=== PATIENT | female | born 1990 | race Caucasian/White ===

== ENCOUNTER 2024-05-28 14:37 | Outpatient (OUT) | payer BC, SELFPAY ==
--- NOTE | 2024-05-28 14:40 | US_ITS ---
The [place] [id number] Patient Name: LUCILA JAMES MRN: [id number] date: 1990 Sex: F Assigned Patient Location: [facility] Current Patient Location: [facility] Accession/Order Number: [id number] Exam Date: 05/28/2024 14:45 Report Date: 05/28/2024 15:28 At the request of: BRYAN AIKEN Procedure: US OB transvaginal EXAMINATION: US OB transvaginal HISTORY: Viability. IUD in place. COMPARISON: No relevant comparison available. FINDINGS: GESTATIONAL SAC: Present and normal appearing. YOLK SAC: Present and normal appearing. POLE: Present and normal appearing. CARDIAC: Present. UTERUS: IUD within endometrial cavity anterior to the gestational sac and extending towards the right. The IUD extends into the lower uterine cavity slightly below the level of the gestational sac. OVARIES: Right: Normal. Left: Corpus lutein cyst. CERVIX: 4.4 cm in length and closed. CUL-DE-SAC: Normal. OTHER: None. AGE BY LMP: 7 weeks 2 days EMMY BY LMP: 01/12/2025 AGE BY US CRL: 7 weeks 1 day EMMY BY US CRL: 01/13/2025 US/US OB transvaginal IMPRESSION: 1. Single live intrauterine . 2. IUD within gestational sac as detailed above. Findings discussed with Dr. Aiken prior to dictation. Electronically authenticated by: STEFANY SCHWAB Date: 05/28/2024 15:28
== END 2024-05-28 14:38 | disposition home or self-care (01) ==
LOC: NOMS 14:37
PROVIDERS: Visit Provider Obstetrics & Gynecology
DX: O26.31 Retained intrauterine contraceptive device in pregnancy, first trimester (principal); O36.80X0 Pregnancy with inconclusive fetal viability, not applicable or unspecified; Z3A.01 Less than 8 weeks gestation of pregnancy
CPT/HCPCS: 76817

== ENCOUNTER 2024-05-30 11:27 | Outpatient (OUT) | payer BC, SELFPAY ==
--- NOTE | 2024-05-30 11:30 | US_ITS ---
The [address] [address] Patient Name: LUCILA JAMES MRN: [id number] date: 1990 Sex: F Assigned Patient Location: [place] Current Patient Location: [place] Accession/Order Number: [id number] Exam Date: 05/30/2024 11:32 Report Date: 05/30/2024 12:16 At the request of: BRYAN BALDERRAMA Procedure: US OB transvaginal EXAMINATION: US OB transvaginal HISTORY: With Uncertain Viability ; IUD in endometrial cavity, bleeding COMPARISON: Ultrasound OB transvaginal 05/28/2024 FINDINGS: GESTATIONAL SAC: Present and normal appearing. YOLK SAC: Present and normal appearing. POLE: Present and normal appearing. CARDIAC: Present. UTERUS: IUD within endometrial cavity appearing to be and a slightly different location compared to study performed 2 days ago. Small 8 x 6 x 4 mm anechoic fluid collection adjacent to the gestational sac where IUD appeared to be on prior study. OVARIES: Right: Not seen. Left: Not seen. CERVIX: 4.9 cm in length and closed. CUL-DE-SAC: Normal. OTHER: None. AGE BY LMP: 7 weeks 4 days EMMY BY LMP: 01/12/2025 AGE BY US CRL: 7 weeks 4 days EMMY BY US CRL: 01/12/2025 US/US OB transvaginal IMPRESSION: 1 single live intrauterine . 2. IUD is still within the endometrial cavity adjacent the gestational sac but appears to have shifted in position with a tiny simple appearing fluid collection at prior location. Electronically authenticated by: STEFANY SCHWAB Date: 05/30/2024 12:16
== END 2024-05-30 11:28 | disposition home or self-care (01) ==
LOC: US 11:27
PROVIDERS: PCP Midwife; Visit Provider Obstetrics & Gynecology
DX: O36.80X0 Pregnancy with inconclusive fetal viability, not applicable or unspecified (principal); Z3A.01 Less than 8 weeks gestation of pregnancy
CPT/HCPCS: 76817

== ENCOUNTER 2024-06-17 12:22 | Outpatient (OUT) | payer BC, SELFPAY ==
--- OUTSIDE RECORDS SUMMARY | 2024-06-17 12:42 | XMS_ITS | CCD ---
Author Organization [facility] Care Team Providers Care Cashier Assistant Name Role Phone Yesica Khan Primary Care Provider ROCÍO GONZALEZ Referring Unavailable YESICA KHAN Primary Care Unavailable ROCÍO GONZALEZ Referring Unavailable YESICA KHAN Primary Care Unavailable DENISE TAYLOR Referring Unavailable [place] 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, Audra Burns Attending Alec Chacon MD Attending Charles garcia [place] 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, Audra Burns Attending U suleman ROSE STAFF Primary Care Provider Unavailnikolay e MD Santa Estrada II Attending Provider MD Maurizio Mast Attending Provider [phone] SANTA ESTRADA Referring Unavaila ble PCP, NOT IN SYSTEM Primary Care Unavailable NO FAMILY, PHYSICIAN Primary Care Provider Unava ilMD Santa Hoffman II Referring Provider VICTOR M LUJAN Attending Unavailable VICTOR M LUJAN Referring Unavailable VICTOR M LUJAN Attending Unavailable SANDRITA KNOX Attending Unavailable SANDRITA KNOX Attending Unavailable SANDRITA KNOX Attending Unavailable SANDRITA KNOX Referring Unavailable BRYAN BALDERRAMA Referring Unavailable PCP, NOT IN SYSTEM Primary Care Unavailable LEXI ROBERTSON Attending Unavailable LEXI ROBERTSON Referring Unavailable PCP, NOT IN SYSTEM Primary Care Unavailable ALEC PATEL Admitting Unavailable ALEC PATEL Attending Unavailable Provider, None Primary Care Unavailable Peter Booth Attending Unavailable Provider, None Primary Care Unavailable Peter Booth Attending Unavailable Provider, None Primary Care Unavailable Audra Reynoso Admitting Unavailable Audra Reynoso Attending Unavailable Provider, None Primary Care Unavailable Maurizio Mast Attending Unavailable Juliano Peterson Unavailable Provider, None Primary Care Unavailable Mast, Maurizio Admitting Unavailable Audra Reynoso Admitting Unavailable Audra Reynoso Attending Unavailable Provider, None Primary Care Unavailable Provider, None Primary Care Unavailable Audra Reynoso Admitting Unavailable Audra Reynoso Attending Unavailable MD Santa Estrada II Attending Provider NON STAFF Primary Care Provider Unavailabl e NON STAFF Primary Care Unavailable Santa Estrada II Attending Unavailabl e [place], Santa Jensen Admitting Unavailabl e [place] II, Santa Jensen Admitting Unavailabl e NON STAFF Primary Care Unavailable [place] II, Santa Jensen Attending Unavailabl e Sean II, Santa Jensen Admitting Unavailabl e NON STAFF Primary Care Unavailable Sean II, Santa Jensen Attending Unavailabl e NON STAFF Primary Care Unavailable Sean CURRIE, Santa Jensen Attending Unavailabl e [place] II, Santa Jensen Admitting Unavailabl e Mast, Maurizio Ul-Johnson Admitting Unavailable Mast, Maurizio RamosJohnson Attending Unavailable Sean CURRIE, Santa Jensen Admitting Unavailabl e NON STAFF Primary Care Unavailable Santa Estrada II Attending Unavailabl e NO FAMILY, PHYSICIAN Primary Care Unavailable Sean CURRIE, Santa Jensen Admitting Unavailabl e [place] II, Santa Jensen Attending Unavailabl e [place] II, Santa Jensen Referring Unavailabl e Allergies Allergy Classification Reported Allergen(s) Allergy Type Date of Onset Reaction(s) Facility Magnesium (2 sources) Magnesium; Translations: [MAGNESIUM] Drug Allergy 2 [facility] NSAIDs (2 sources) Ibuprofen; Translations: [NSAIDS (NON-STEROIDAL ANTI-INFLAMMATOR Y DRUG)] Drug Allergy 2 [facility] Potassium (1 source) Potassium Drug Allergy 4 [facility] Potassium Chloride (1 source) Potassium Chloride; Translations: [POTASSIUM CHLORIDE] Drug Allergy 2 [facility] (2 sources) Magnesium-Contai buddy Compounds Propensity to adverse reactions to drug 9 [place], [place] (12 sources) Ibuprofen; Translations: [ibuprofen] Drug Allergy 9 [place], [place] (1 source) Potassium-Contai buddy Compounds Propensity to adverse reactions to drug 0 [facility], [place] (1 source) ALLERGIES NOT ON FILE; Translations: [ALLERGIES NOT ON FILE] Propensity to adverse reactions (disorder) [facility] Repository (13 sources) Magnesium; Translations: [MAGNESIUM] Drug Allergy 2 [facility] (11 sources) Potassium; Translations: [potassium] Drug Allergy 4 [facility] (7 sources) Contrast media Allergy to substance 4 [facility] (4 sources) NSAIDS (Non-Steroidal Anti-Inflamma Allergy to substance 4 [facility] (2 sources) Amoxicillin; Translations: [AMOXICILLIN] Drug Allergy 4 [facility] (1 source) NSAIDs; Translations: [NSAIDS (NON-STEROIDAL ANTI-INFLAMMATOR Y DRUG)] Propensity to adverse reactions to drug (disorder) 2 [facility] (2 sources) Potassium Chloride; Translations: [POTASSIUM CHLORIDE] Drug Allergy 2 [facility] (1 source) Ibuprofen Drug Allergy 4 [facility] Repository Medications Current Medications Medication Drug Class(es) Dates Sig (Normalized) Sig (Original) acetaminophen 500 mg oral tablet (4 sources) Start: 04-19-2024 take 1000 mg by mouth every eight hours Acetaminophen Active 1000 MG PO Q8H 180 April 19, 2024 12:00am DO NOT RECONCILE UNTIL DOS:04/29/2024 MED TO BED calcium carbonate 1250 mg oral tablet (7 sources) Start: 03-18-2024 take 500 mg by mouth three times daily Calcium Carbonate Active 500 MG PO Three times daily March 18, 2024 12:00am cholecalciferol 0.025 mg oral capsule (7 sources) Vitamin D Start: 03-18-2024 take 25 ug by mouth once daily Cholecalciferol (Vitamin D3) Active 25 MCG PO daily March 18, 2024 12:00am levonorgestrel 0.703930 mg/hr intrauterine system (2 sources) Progestin, Progestin-contain ing Intrauterine Device Levonorgestrel (LILETTA, 52 MG,) 19.5 MCG/DAY IUD by Intrauterine route 0 Active Multivitamin (Daily Multi-Vitamin) tablet (7 sources) Start: 04-15-2024 take 1 tablet by mouth once daily Multivitamin (Daily Multi-Vitamin) tablet Active 1 TAB PO Daily April 15, 2024 12:00am [place] (No Known Home Meds) (4 sources) Start: 11-14-2019 [place] (No Known Home Meds) Active November 14, 2019 1:00am pantoprazole 20 mg delayed release oral tablet (4 sources) Proton Pump Inhibitor Start: 04-19-2024 take 1 tablet by mouth once daily Pantoprazole (Protonix) 20 mg tablet,delayed release (DR/EC) Active 20 MG PO daily 35 35 April 19, 2024 12:00am DO NOT RECONCILE UNTIL DOS:04/29/2024 MED TO BED sertraline 50 mg oral tablet (1 source) Serotonin Reuptake Inhibitor Start: 01-03-2020 take 1 tablet by mouth once daily sertraline (ZOLOFT) 50 MG tablet Indications: Anxiety , Panic attacks , Medication management Take 1 tablet by mouth daily 90 tablet 0 01/03/2020 Active Completed/Discontinued Medications Medication Drug Class(es) Dates Sig (Normalized) Sig (Original) cefadroxil 500 mg oral capsule (4 sources) Cephalosporin Antibacterial Start: 04-19-2024 End: 05-15-2024 take 500 mg by mouth every twelve hours Cefadroxil Discontinued 500 MG PO Q12H 14 April 19, 2024 12:00am May 15, 2024 1:38pm DO NOT RECONCILE UNTIL DOS:04/29/2024 MED TO BED celecoxib 200 mg oral capsule (4 sources) Nonsteroidal Anti-inflammatory Drug Start: 04-19-2024 End: 04-29-2024 take 200 mg by mouth twice daily Celecoxib Discontinued 200 MG PO Twice daily 60 April 19, 2024 12:00am April 29, 2024 7:29am DO NOT RECONCILE UNTIL DOS:04/29/2024 MED TO BED docusate sodium 50 mg / sennosides, snf 8.6 mg oral tablet (4 sources) Start: 04-19-2024 End: 05-15-2024 take 2 tablets by mouth once daily Sennosides-Docusat e Sodium (Senokot-S) 8.6-50 mg tablet Discontinued 2 TAB PO daily 60 April 19, 2024 12:00am May 15, 2024 1:39pm DO NOT RECONCILE UNTIL DOS:04/29/2024 MED TO BED ibuprofen 200 mg oral tablet (11 sources) Nonsteroidal Anti-inflammatory Drug Start: 08-30-2017 End: 11-14-2019 take 2 tablets by mouth every four to six hours Ibuprofen (Motrin Ib) 200 mg Tablet Discontinued 2 TAB PO EVERY 4-6 HOURS August 30, 2017 1:00am November 14, 2019 4:20pm ondansetron 4 mg oral tablet (4 sources) Serotonin-3 Receptor Antagonist Start: 04-19-2024 End: 05-15-2024 take 4 mg by mouth every eight hours Ondansetron Hcl Discontinued 4 MG PO Q8H April 19, 2024 12:00am May 15, 2024 1:38pm DO NOT RECONCILE UNTIL DOS:04/29/2024 MED TO BED oxyCODONE hydrochloride 5 mg oral tablet (15 sources) Opioid Agonist Start: 04-19-2024 End: 05-15-2024 take 5 mg by mouth every four hours Oxycodone Discontinued 5 MG PO Q4H 42 April 19, 2024 May 15, 2024 1:38pm DO NOT RECONCILE UNTIL DOS:04/29/2024 MED TO BED Start: 09-08-2017 End: 11-14-2019 take 5 mg by mouth every six hours Oxycodone Discontinued 5 MG PO Q6H September 08, 2017 1:00am November 14, 2019 4:20pm Pnv Cmb#95-Ferrous Fumarate-Fa () 28 mg iron- 800 mcg Tablet (11 sources) Start: 08-30-2017 End: 08-30-2017 take 1 tablet by mouth once daily Pnv Cmb#95-Ferrous Fumarate-Fa () 28 mg iron- 800 mcg Tablet Discontinued 1 TAB PO Daily August 30, 2017 1:00am August 30, 2017 12:44pm polyethylene glycol 3350 27374 mg powder for oral solution (4 sources) Osmotic Laxative Start: 04-19-2024 End: 05-15-2024 Polyethylene Glycol 3350 (Miralax) 17 gram/dose powder Discontinued 17 GM PO daily 7 April 19, 2024 12:00am May 15, 2024 1:38pm 1 packed mixed with 8 ounces of fluid. DO NOT RECONCILE UNTIL DOS:04/29/2024 MED TO BED predniSONE 10 mg oral tablet (4 sources) Start: 04-29-2024 End: 05-15-2024 take 10 mg by mouth once daily Prednisone Discontinued 10 MG PO daily 10 10 April 29, 2024 12:00am May 15, 2024 1:38pm DO NOT RECONCILE UNTIL DOS:04/29/2024 MED TO BED Vit 10-Iron Fum-Folic (11 sources) Start: 08-30-2017 End: 11-14-2019 take 1 tablet by mouth once daily Vit 10-Iron Fum-Folic Discontinued 1 TAB PO Daily August 30, 2017 1:00am November 14, 2019 4:20pm rivaroxaban 10 mg oral tablet (4 sources) Factor Xa Inhibitor Start: 04-19-2024 End: 06-11-2024 take 10 mg by mouth once daily Rivaroxaban Discontinued 10 MG PO daily 35 35 April 19, 2024 12:00am June 11, 2024 10:59am DO NOT RECONCILE UNTIL DOS:04/29/2024 MED TO BED traMADol hydrochloride 50 mg oral tablet (4 sources) Opioid Agonist Start: 04-19-2024 End: 05-15-2024 take 50 mg by mouth every six hours Tramadol Discontinued 50 MG PO q6h 28 7 April 19, 2024 12:00am May 15, 2024 1:39pm DO NOT RECONCILE UNTIL DOS:04/29/2024 MED TO BED Problems Active Problems Problem Classification Problem Date Documented Date Episodic/Chronic Anxiety disorders (13 sources) Anxiety; Translations: [Panic attack] Onset: 01-05-2020 01-05-2020 Chronic Esophageal disorders (1 source) Gastroesophageal reflux disease without esophagitis; Translations: [Gastroesophageal reflux disease without esophagitis] Onset: 04-18-2016 11-12-2019 Chronic Fluid and electrolyte disorders (11 sources) Hypokalemia; Translations: [Hypokalemia] 09-06-2023 Episodic Joint disorders and dislocations; trauma-related (1 source) Unspecified internal derangement of left knee; Translations: [Unspecified internal derangement of left knee] Onset: 02-29-2024 Chronic Nonspecific chest pain (11 sources) Chest pain; Translations: [Chest pain, unspecified] 09-06-2023 Episodic Osteoarthritis (20 sources) Osteoarthritis of left knee joint; Translations: [Unilateral primary osteoarthritis, left knee] Onset: 04-19-2024 02-15-2024 Chronic Osteoporosis (9 sources) Osteoporosis; Translations: [Age-related osteoporosis without current pathological fracture] Onset: 03-12-2024 03-12-2024 Chronic Other aftercare (8 sources) Long-term current use of drug therapy; Translations: [Other intermediate (current) drug therapy] 03-12-2024 Episodic Other complications of (1 source) Obesity complicating , unspecified trimester; Translations: [Obesity complicating , unspecified trimester] Onset: 05-31-2024 Chronic Other complications of (1 source) Supervision of high risk , unspecified, unspecified trimester; Translations: [Supervision of high risk , unspecified, unspecified trimester] Onset: 05-31-2024 Episodic Other complications of (1 source) Retained intrauterine contraceptive device in , first trimester; Translations: [Retained intrauterine contraceptive device in , first trimester] Onset: 05-31-2024 Episodic Other connective tissue disease (2 sources) History of prosthetic unicompartmental arthroplasty of left knee; Translations: [Presence of left artificial knee joint] 06-10-2024 Chronic Other connective tissue disease (3 sources) Presence of left artificial knee joint; Translations: [Knee joint replacement] Onset: 06-11-2024 06-11-2024 Chronic Other lower respiratory disease (11 sources) Dyspnea; Translations: [Dyspnea, unspecified] 09-06-2023 Episodic Other nutritional; endocrine; and metabolic disorders (1 source) Morbid obesity; Translations: [Morbid obesity] Onset: 04-18-2016 09-13-2019 Chronic Other screening for suspected conditions (not mental disorders or infectious disease) (2 sources) Encounter for screening, unspecified; Translations: [Encounter for screening for cervical length] Onset: 05-31-2024 Episodic Other upper respiratory infections (2 sources) Acute maxillary sinusitis, unspecified; Translations: [Acute maxillary sinusitis, unspecified] Onset: 08-23-2023 Episodic Residual codes; unclassified (11 sources) History of arthroscopy of knee joint; Translations: [Other specified postprocedural states] 02-15-2024 Episodic Residual codes; unclassified (1 source) Other specified postprocedural states; Translations: [Other specified postprocedural states] Onset: 02-29-2024 Episodic Syncope (11 sources) Near syncope; Translations: [Syncope and collapse] 09-06-2023 Episodic Unclassified (2 sources) Patient encounter status; Translations: [Health care maintenance] Onset: 01-05-2020 01-05-2020 Unclassified (1 source) IUD in place in Onset: 05-31-2024 Past or Other Problems Problem Classification Problem Date Documented Da te Episodic/Chronic Other aftercare (1 source) Other intermediate (current) drug therapy; Translations: [Other intermediate (current) drug therapy] Onset: 03-12-2024 Episodic Other gastrointestinal disorders (3 sources) History of bariatric surgical procedure; Translations: [History of bariatric surgery] Onset: 05-20-2019 05-20-2019 Episodic Other non-traumatic joint disorders (13 sources) Pain in left knee; Translations: [Left knee pain] Onset: 02-15-2024 02-15-2024 Episodic Results Test Name Value Interpretation Reference Range Facility XR knee LT 3V - NOT FOR ER U [facility] 06-11-2024 XR knee LT 3V - NOT FOR ER USE [facility] [address] [place] [address] XRay Report Signed Patient: Lucila Jacques MR#: [id number] 33 : 1990 Acct:[id number] Age/Sex: 33 / F ADM Date: 06/11/24 Loc: [facility] Room: Type: [facility] Attending Dr: Santa Estrada II, MD Copies to: Santa Estrada MD Ordering Provider: Santa Estrada MD Date of Service: 06/11/24 XR/XR knee LT 3V - NOT FOR ER USE: Z96.652 - Presence of left artificial knee joint LEFT KNEE - 3 views COMPARISON: 04/29/2024 CLINICAL DATA: Follow-up left partial knee replacement. Weight-bearing AP, lateral and sunrise views were obtained. There is redemonstration of medial hemiknee arthroplasty, unchanged from the prior. 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 There are no acute fractures or dislocation. There is marginal spurring at the lateral compartment. There is no significant knee effusion or soft tissue swelling. XR/XR knee LT 3V - NOT FOR ER USE IMPRESSION: STABLE MEDIAL KNEE HEMIARTHROPLASTY. Impression dictated by: Vikki Rivers M.D.06/11/2024 2:26 PM Dictation Location: [place] [address] Transcribed By: [facility] 06/11/24 142 Dictated By: Vikki Rivers MD 06/11/24 142 Signed By: 06/11/24 142 Normal [facility] US OB < 14 WEEKS EARLYon US OB < 14 WEEKS EARLY TITLE OF EXAM: OB Ultrasound: REASON FOR EXAM: Dating, IUD placed 04/25/2024, Positive test 05/22/2024 TECHNIQUE: Grayscale imaging is performed. Measurements: heart rate: 126 bpm Sac: 1.9 cm CRL: 0.5 cm GA for sonogram: 6.3 wk (05.8-06.8) EMMY: 01/12/2025 Maternal Anatomy: Uterus: 9.9 x 6.7 x 4.9 cm Ovaries, Left: 3.8 x 2.9 x 3.2 cm Vol: 18.5 cc CLINICAL SUMMARY: Early intrauterine is seen with positive cardiac activity. heart is observed with a heart rate of 126 bpm. An IUD is present, adjacent to gestational sac. Dictated and transcribed 05/24/24/dpd This report has been electronically signed and approved by the interpreting radiologist. Electronically Signed David Berry M.D. 2024-05-24 16:24:18 Normal Not Available Amphetamine Screen Ql (U)Ord ered By: Yusef Curran on 04-29-2024 Amphetamines Ql (U) Negative Negative [place] Barbiturates [Presence] in U rine by Screen methodOrdered By: Yusef Curran on 04-29-2024 Barbiturates Screen Ql (U) Negative Negative [facility] Benzodiazepines Screen Ql (U )Ordered By: Yusef Curran on 04-29-2024 Benzodiazepines Ql (U) Negative Negative [facility] Benzoylecgonine [Presence] i n Urine by Screen methodOrdered By: Yusef Curran on 04-29-2024 Benzoylecgonine Screen Ql (U) Negative Negative [facility] Cannabinoids [Presence] in U rine by Screen methodOrdered By: Abelchristieirene Curran on 04-29-2024 Cannabinoids Screen Ql (U) Negative Negative [facility] Comment on above: These are unconfirme d results and should not be used for legal purposes. Drug Cut-Off Concentration: AMPH 1000 ng/mL SILVIA 200 ng/mL DARLYN 200 ng/mL COCM 300 ng/mL OP 300 ng/mL PCP 25 ng/mL THC 20 ng/mL Drug Screen,Urineon 04-29-20 24 Amphetamine Screen,Urine Negative Normal Negative [facility] Comment on above: Performed By: #### A 1C WTH eA, ALB, [id number], HGB #### [address] #### NICOTINE #### [facility] , Barbiturate Screen,Urine Negative Normal Negative [facility] Comment on above: Performed By: #### A 1C WTH eA, ALB, [id number], HGB #### [place] [address] [place] #### NICOTINE #### [facility] , Benzodiazepines Screen,Urine Negative Normal Negative [facility] Comment on above: Performed By: #### A 1C WTH eA, ALB, [id number], HGB #### [place] [address] [place] #### NICOTINE #### [facility] , Cannabinoid Screen,Urine Negative Normal Negative [facility] Comment on above: Result Comment: Thes e are unconfirmed results and should not be used for legal purposes. Drug Cut-Off Concentration: AMPH 1000 ng/mL SILVIA 200 ng/mL DARLYN 200 ng/mL COCM 300 ng/mL OP 300 ng/mL PCP 25 ng/mL THC 20 ng/mL PERFORMED BY: [place] [address] PATHOLOGIST COMMUNICATIONS DEPARTMENT CHAIRPERSON JIANLAN SUN M.D. Performed By: #### A 1C WTH eA, ALB, [id number], HGB #### [address] #### NICOTINE #### [facility] , Cocaine Screen,Urine Negative Normal Negative [facility] Comment on above: Performed By: #### A 1C WTH eA, ALB, [id number], HGB #### [place] [address] [place] #### NICOTINE #### [facility] , Opiate Screen,Urine Negative Normal Negative [facility] Comment on above: Performed By: #### A 1C WTH eA, ALB, [id number], HGB #### [address] #### NICOTINE #### [facility] , Phencyclidine Screen,Urine Negative Normal Negative [facility] Comment on above: Performed By: #### A 1C WTH eA, ALB, [id number], HGB #### [address] #### NICOTINE #### [facility] , HCG ( test) IA.rapi d Ql (U)Ordered By: Yusef Curran on 04-29-2024 HCG ( test) Ql (U) Negative [facility] HCG,Urineon 04-29-2024 Beta HCG ( test) Ql (U) Negative Normal [facility] Comment on above: Result Comment: PERF ORMED BY: [place] [address] PATHOLOGIST COMMUNICATIONS DEPARTMENT CHAIRPERSON GENO BENEDICT M.D. Performed By: #### U HCG #### [place] [address] [place] Vaughn 04-29-2024 L Specimen: [id number] Received: 04/29/24 Status: SOUT Req Num: [id number] Spec Type: Surgical Subm Dr: Santa Estrada MD Tissues: A Joint/Knee (LT KNEE) Procedures: HE, Gross/Micro L4, Decalcification Age/ Patient Sex Location Account Attending Physician Lucila Jacques R 33/F [place] [id number] Santa Estrada MD SPEC NUM: [id number] RECD: 04/29/24 STATUS: MICHAEL YOUNG NUM: [id number] NIELS: 04/29/24- [facility] DR: Santa Estrada MD ENTERED: 04/29/[address] [facility] [address]: SPEC TYPE: Surgical DEPT: S ORDERED: HE, Gross/Micro L4, Decalcification ORDERED: HE, Gross/Micro L4, Decalcification Pathological Diagnosis Left knee bone and tissue, arthroplasty -Mild degenerative osteoarthritis , including patchy articular erosions, and focal disruption of the irregularly thickened meniscus cartilage. Gross only examination Clinical Information DJD L knee Gross Description The specimen is received in formalin, labeled with the patient's name and bone and tissue , and consists of a 9.6 x 7.2 x 1.2 cm aggregate of multiple fragments of edwards-white bone and fibrous soft tissue. The largest fragment contains a 1.6 x 1.0 cm circumscribed area of eburnation. Sectioning shows yellow spongy bone matrix. A gross photo is included. The specimen is for gross only examination, no sections are submitted. CPT Codes 82137 Specimen: [id number] Received: 04/29/24 Status: ANUPAMABrunilda Young Num: [id number] Spec Type: Surgical Subm Dr: Santa Estrada MD Tissues: A Joint/Knee (LT KNEE) Procedures: HE, Gross/Micro L4, Decalcification Patient: Lucila Jacques [id number] (Continued) Specimen: [id number] Received: 04/29/24 (Continued) Signed (signature on file) ChinNessa Trevizo MD 05/07/24 1703 Specimen: [id number] Received: 04/29/24 Status: MICHAEL Young Num: [id number] Spec Type: Surgical Subm Dr: Santa Estrada MD Tissues: A Joint/Knee (LT KNEE) Procedures: Gonsalo SUH/Nithya L4, Decalcification Patient: Lucila Jacques [id number] (Continued) Specimen: [id number] Received: 04/29/24 (Continued) BONE AND TISSUE Specimen: [id number] Received: 04/29/24 Status: MICHAEL Young Num: [id number] Spec Type: Surgical Subm Dr: Santa Estrada MD Tissues: A Joint/Knee (LT KNEE) Procedures: Gonsalo SUH/Nithya L4, Decalcification Patient: Lucila Jacques [id number] (Continued) Signed (signature on file) True-Martinez Trevizo MD 05/07/24 1703 Normal [facility] Opiates [Presence] in Urine by Screen methodOrdered By: Yusef Curran on 04-29-2024 Opiates Screen Ql (U) Negative Negative [facility] Phencyclidine Screen Ql (U)O rdered By: Yusef Curran on 04-29-2024 Phencyclidine Ql (U) Negative Negative [facility] XR knee LT 2Von 04-29-2024 XR knee LT 2V [facility] [place] [address] XRay Report Signed Patient: Lucila Jacques MR#: [id number] 33 : 1990 Acct:[id number] Age/Sex: 33 / F ADM Date: 04/29/24 Loc: [place] Room: Type: [facility] Attending Dr: Santa Estrada II, MD Copies to: Santa Estrada MD Ordering Provider: Santa Estrada MD Date of Service: 04/29/24 XR/XR knee LT 2V: Total or partial knee, due in PACU 2 views left knee plain film COMPARISON: 02/15/2024 HISTORY: Medial left knee arthroplasty ACUTE FINDINGS: No acute findings DEGENERATIVE CHANGE: Mild degeneration. Bipartite patella SOFT TISSUE FINDINGS: Unremarkable JOINT EFFUSION: None POSTOP CHANGES: Adequate hardware without complication BONE MINERALIZATION: Adequate XR/XR knee LT 2V IMPRESSION: Unremarkable partial medial knee arthroplasty Impression dictated by: Harmeet Lopez M.D.04/29/2024 2:44 PM Dictation Location: [place] [address] Transcribed By: [facility] 04/29/24 1444 Dictated By: Harmeet Lopez DO 04/29/24 144 Signed By: 04/29/24 144 Normal [facility] XR tibia fibula LT 2V*on XR tibia fibula LT 2V* [facility] [address] [place] [address] XRay Report Signed Patient: Lucila Jacques MR#: [id number] 33 : 1990 Acct:[id number] Age/Sex: 33 / F ADM Date: 04/19/24 Loc: [facility] Room: Type: [facility] Attending Dr: Santa Estrada II, MD Copies to: Santa Estrada MD Ordering Provider: Santa Estrada MD Date of Service: 04/19/24 XR/XR tibia fibula LT 2V*: M17.12 - Unilateral primary osteoarthritis, left knee ([id number]) XR/XR femur LT 2V*: M17.12 - Unilateral primary osteoarthritis, left knee Plain film left femur and tibia and fibula HISTORY: Assessment for left partial versus total knee arthroplasty Unremarkable pelvis and hips. The femur intact. No acute bony findings of bony lesion. Extensive left medial compartment joint space narrowing. Marginal spurring. Adequate alignment. Unremarkable right knee. Intact tibia and fibula. No acute bony findings or bony lesion. Unremarkable ankles. XR/XR femur LT 2V* IMPRESSION: Extensive left medial compartment degeneration. Impression dictated by: Harmeet Lopez M.D.04/19/2024 9:52 AM Dictation Location: [place] [address] Transcribed By: [facility] 04/19/24 0952 Dictated By: Harmeet Lopez DO 04/19/24 0950 Signed By: 04/19/24 0952 Normal [facility] Automated basophil %Ordered By: Santa Estrada on 04-15-2024 Basophils/100 WBC (Bld) 0.7 % Normal . [facility] Comment on above: Performed By: #### B MP, CBC #### [address] #### NICOTINE, FRUC #### [facility] , Automated basophil countOrde red By: Santa Estrada on 04-15-2024 Basophils (Bld) [#/Vol] 0.0 10*3/uL Normal 0.0-0.2 [facility] Comment on above: Result Comment: PERF ORMED BY: [place] [address] PATHOLOGIST COMMUNICATIONS DEPARTMENT CHAIRPERSON GENO BENEDICT M.D. Performed By: #### B MP, CBC #### [place] [address] [place] #### NICOTINE, FRUC #### [facility] , Automated blood monocyte cou ntOrdered By: Santa Estrada on 04-15-2024 Monocytes (Bld) [#/Vol] 0.3 10*3/uL Normal 0.0-0.8 [facility] Comment on above: Performed By: #### B MP, CBC #### [place] [address] [place] #### NICOTINE, FRUC #### [facility] , Automated eosinophil %Ordere d By: Santa Estrada on 04-15-2024 Eosinophils/100 WBC (Bld) 3.0 % Normal . [facility] Comment on above: Performed By: #### B MP, CBC #### [place] [address] [place] #### NICOTINE, FRUC #### [facility] , Automated eosinophil countOr dered By: Santa Estrada on 04-15-2024 Eosinophils (Bld) [#/Vol] 0.1 10*3/uL Normal 0.0-0.45 [facility] Comment on above: Performed By: #### B MP, CBC #### [place] [address] [place] #### NICOTINE, FRUC #### [facility] , Automated monocyte %Ordered By: Santa Estrada on 04-15-2024 Monocytes/100 WBC (Bld) 7.6 % Normal . [facility] Comment on above: Performed By: #### B MP, CBC #### [address] [address] [place] #### NICOTINE, FRUC #### [facility] , Automated neutrophil %Ordere d By: Santa Estrada on 04-15-2024 Neutrophils/100 WBC (Bld) 55.1 % Normal . [facility] Comment on above: Performed By: #### B MP, CBC #### [place] [address] [place] #### NICOTINE, FRUC #### [facility] , Basic Metabolic Panelon 03-26 GFR/1.73 sq M.predicted MDRD (S/P/Bld) [Vol rate/Area] mL/min/{1.73_m2} Normal [facility] Comment on above: Performed By: #### A 1C WTH eA, ALB, [id number], HGB #### [address] #### NICOTINE #### [facility] , Bilirubin Test strip Ql (U)O rdered By: Santa Estrada on 04-15-2024 Bilirubin Ql (U) Negative Negative [facility] Calcium [Mass/volume] in Ser um or PlasmaOrdered By: Santa Estrada on 04-15-2024 Calcium [Mass/Vol] 9.0 mg/dL Normal 8.6-10.3 [facility] Comment on above: Result Comment: PERF ORMED BY: [address] [place] [address] PATHOLOGIST COMMUNICATIONS DEPARTMENT CHAIRPERSON GENO BENEDICT M.D. Performed By: #### A 1C WTH eA, ALB, [id number], HGB #### [place] [address] [place] #### NICOTINE #### [facility] , Carbon dioxide, total [Moles /volume] in Serum or PlasmaOrdered By: Santa Estrada on 04-15-2024 CO2 [Moles/Vol] 26.3 mmol/L Normal 21.0-31.0 [facility] Comment on above: Performed By: #### A 1C WTH eA, ALB, [id number], HGB #### [place] [address] [place] #### NICOTINE #### [facility] , Chloride [Moles/volume] in S liam or PlasmaOrdered By: Santa Estrada on 04-15-2024 Chloride [Moles/Vol] 106 mmol/L Normal 98-107 [facility] Comment on above: Performed By: #### A 1C WTH eA, ALB, [id number], HGB #### [address] #### NICOTINE #### [facility] , Color of Urine by AutoOrdere d By: Santa Estrada on 04-15-2024 Color (U) Yellow Normal Yellow [facility] Comment on above: Order Comment: Name Collection Type:: Clean-Voided Midstream Performed By: #### U A #### [address] Complete Blood Count Auto Di ffon 04-15-2024 Mean Corpuscular HGB Conc 34.0 g/dL Normal 32.0-35.0 [facility] Comment on above: Performed By: #### B MP, CBC #### [address] #### NICOTINE, FRUC #### [facility] , NRBC% 0.1 /100{WBC} Normal 0-0.5 [facility] Comment on above: Performed By: #### B MP, CBC #### [place] [address] [place] #### NICOTINE, FRUC #### [facility] , Cotinine [Mass/volume] in Se rum or PlasmaOrdered By: Santa Estrada on 04-15-2024 Cotinine [Mass/Vol] <1.0 ng/mL . [place] Comment on above: This test was develo ped and its performance characteristicsdetermined by [employer]. It has not been cleared orapproved by the Food and Drug Administration.Cotinine levels greater than 20.0 are consistent with theuse of tobacco or tobacco cessation products.Performed at: [address] [id number] Director: Marcellus Dave MD, Phone: [phone] Creatinine [Mass/volume] in Serum or PlasmaOrdered By: Santa Estrada on 04-15-2024 Creatinine [Mass/Vol] 0.65 mg/dL Normal 0.60-1.20 [facility] Comment on above: Performed By: #### A 1C WTH eA, ALB, [id number], HGB #### [facility] [address] [place] [address] #### NICOTINE #### [facility] , Erythrocyte distribution wid th [Ratio] by Automated countOrdered By: Santa Estrada on 04-15-2024 Erythrocyte distribution width (RBC) [Ratio] 13.2 % Normal 11.9-15.3 [facility] Comment on above: Performed By: #### B MP, CBC #### [place] [address] [place] #### NICOTINE, FRUC #### [facility] , Erythrocytes [#/volume] in B lood by Automated countOrdered By: Santa Estrada on 04-15-2024 RBC (Bld) [#/Vol] 4.52 10*6/uL Normal 3.60-5.00 [place] Comment on above: Performed By: #### B MP, CBC #### [facility] [address] [place] [address] [place] #### NICOTINE, FRUC #### [facility] , Fructosamineon 04-15-2024 Fructosamine 219 umol/L Normal 0-285 [facility] Comment on above: Result Comment: Publ ished reference interval for apparently healthy subjects between age 20 and 60 is 205 - 285 umol/L and in a poorly controlled diabetic population is 228 - 563 umol/L with a mean of 396 umol/L. Performed at: [facility] [address] [place], [place] [id number] Braid Maker: Dario West PhD, Phone: [phone] Performed By: #### A 1C WTH eA, ALB, [id number], HGB #### [address] #### NICOTINE #### [facility] , Fructosamine [Moles/volume] in Serum or PlasmaOrdered By: Santa Estrada on 04-15-2024 Fructosamine [Moles/Vol] 219 umol/L 0-285 [facility] Comment on above: Published reference interval for apparently healthysubjects between age 20 and 60 is 205 - 285 umol/L and in apoorly controlled diabetic population is 228 - 563 umol/Lwith a mean of 396 umol/L.Performed at: [facility] [employer] [id number] Director: Dario West PhD, Phone: [phone] Glucose [Mass/volume] in Ser um or PlasmaOrdered By: Santa Estrada on 04-15-2024 Glucose [Mass/Vol] 88 mg/dL Normal 70-100 [facility] Comment on above: ADA recommended refe rence rangeRandom Glucose Reference Range is dependent on time and content of last meal. Glucose of more than 200 mg/dL in a nonstressed, ambulatory subject supports the diagnosis of Diabetes Mellitus. Result Comment: [place] om Glucose Reference Range is dependent on time and content of last meal. Glucose of more than 200 mg/dL in a nonstressed, ambulatory subject supports the diagnosis of Diabetes Mellitus. ADA recommended reference range Performed By: #### A 1C WTH eA, ALB, [id number], HGB #### [place] [address] [place] #### NICOTINE #### [facility] , Hematocrit [Volume Fraction] of Blood by Automated countOrdered By: Santa Estrada on 04-15-2024 Hematocrit (Bld) [Volume fraction] 40.4 % Normal 34.0-46.4 [facility] Comment on above: Performed By: #### B MP, CBC #### [facility] [address] [place] [address] [place] #### NICOTINE, FRUC #### [facility] , Hemoglobin [Mass/volume] in BloodOrdered By: Santa Estrada on 04-15-2024 Hemoglobin (Bld) [Mass/Vol] 13.7 g/dL Normal 11.8-15.4 [facility] Comment on above: Performed By: #### B MP, CBC #### [place] [address] [place] #### NICOTINE, FRUC #### [facility] , Ketones Auto test strip (U) [Mass/Vol]Ordered By: Santa Estrada on 04-15-2024 Ketones (U) [Mass/Vol] Negative Negative [facility] Leukocytes [#/volume] correc perla for nucleated erythrocytes in Blood by Automated counOrdered By: Santa Estrada on 04-15-2024 WBC corrected for nucl RBC Auto (Bld) [#/Vol] 4.1 10*3/uL 3.8-11.6 [facility] Leukocytes [#/volume] in Blo od by Automated countOrdered By: Santa Estrada on 04-15-2024 WBC (Bld) [#/Vol] 4.1 10*3/uL Normal 3.8-11.6 [facility] Comment on above: Performed By: #### B MP, CBC #### [facility] [address] [place] [address] [place] #### NICOTINE, FRUC #### [facility] , Lymphocytes [#/volume] in Bl ood by Automated countOrdered By: Santa Estrada on 04-15-2024 Lymphocytes (Bld) [#/Vol] 1.4 10*3/uL Normal 1.00-4.8 [facility] Comment on above: Performed By: #### B MP, CBC #### [facility] [address] [place] [address] [place] #### NICOTINE, FRUC #### [facility] , Lymphocytes/100 leukocytes i n Blood by Automated countOrdered By: Santa Estrada on 04-15-2024 Lymphocytes/100 WBC (Bld) 33.6 % Normal . [facility] Comment on above: Performed By: #### B MP, CBC #### [place] [address] [place] #### NICOTINE, FRUC #### [facility] , MCH [Entitic mass] by Automa perla countOrdered By: Santa Estrada on 04-15-2024 MCH (RBC) [Entitic mass] 30.4 pg Normal 24.7-34.3 [facility] Comment on above: Performed By: #### B MP, CBC #### [place] [address] [place] #### NICOTINE, FRUC #### [facility] , MCHC Auto (RBC) [Mass/Vol]Or dered By: Santa Estrada on 04-15-2024 MCHC (RBC) [Mass/Vol] 34.0 g/dL 32.0-35.0 [facility] MCV [Entitic volume] by Auto mated countOrdered By: Santa Estrada on 04-15-2024 MCV (RBC) [Entitic vol] 89.4 fL Normal 80-100 [facility] Comment on above: Performed By: #### B MP, CBC #### [place] [address] [place] #### NICOTINE, FRUC #### [facility] , Neutrophils [#/volume] in Bl ood by Automated countOrdered By: Santa Estrada on 04-15-2024 Neutrophils (Bld) [#/Vol] 2.2 10*3/uL Normal 1.8-7.7 [facility] Comment on above: Performed By: #### B MP, CBC #### [place] [address] [place] #### NICOTINE, FRUC #### [facility] , Nicotine [Mass/volume] in Se rum or PlasmaOrdered By: Santa Estrada on 04-15-2024 Nicotine [Mass/Vol] <1.0 ng/mL . [place] Comment on above: This test was develo ped and its performance characteristicsdetermined by [facility]. It has not been cleared orapproved by the Food and Drug Administration.Nicotine levels greater than 2.0 are consistent with theuse of tobacco or tobacco cessation products. Nicotine/Cotinine Bloodon Cotinine, Blood <1.0 Normal . [facility] Comment on above: Result Comment: This test was developed and its performance characteristics determined by [facility]. It has not been cleared or approved by the Food and Drug Administration. Cotinine levels greater than 20.0 are consistent with the use of tobacco or tobacco cessation products. Performed at: [address] [id number] Braid Maker: Marcellus Dave MD, Phone: [phone] PERFORMED BY: [place] [address] PATHOLOGIST COMMUNICATIONS DEPARTMENT CHAIRPERSON GENO BENEDICT M.D. Performed By: #### A 1C WTH eA, ALB, [id number], HGB #### [address] #### NICOTINE #### [facility] , Nicotine, Blood <1.0 Normal . [facility] Comment on above: Result Comment: This test was developed and its performance characteristics determined by [facility]. It has not been cleared or approved by the Food and Drug Administration. Nicotine levels greater than 2.0 are consistent with the use of tobacco or tobacco cessation products. Performed By: #### A 1C WTH eA, ALB, [id number], HGB #### [place] [address] [place] #### NICOTINE #### [facility] , Nitrite Test strip Ql (U)Ord ered By: Santa Estrada on 04-15-2024 Nitrite Ql (U) Negative Negative [facility] No Panel InformationOrdered By: Santa Estrada on 04-15-2024 Estimated GFR (CKD-EPI) > 60.0 mL/Min [facility] Creatinine Clearance (Chem N/A [facility] Nucleated erythrocytes [Pres ence] in Blood by Automated countOrdered By: Santa Estrada on 04-15-2024 Nucleated RBC Auto Ql (Bld) 0.1 /100{WBC} 0-0.5 [facility] PST Type and Screenon 2023 ABO and Rh group Nom (Bld) Blood group O Rh(D) positive Normal [facility] Comment on above: Order Comment: Date of Surgery: [id number] Result Comment: PERF ORMED BY: [place] [address] PATHOLOGIST COMMUNICATIONS DEPARTMENT CHAIRPERSON GENO BENEDICT M.D. Platelet mean volume [Entiti c volume] in Blood by Automated countOrdered By: Santa Estrada on 04-15-2024 Platelet mean volume (Bld) [Entitic vol] 7.3 fL Normal 6.3-10.7 [facility] Comment on above: Performed By: #### B MP, CBC #### [facility] [address] [place] [address] #### NICOTINE, FRUC #### [facility] , Platelets [#/volume] in Bloo d by Automated countOrdered By: Santa Estrada on 04-15-2024 Platelets (Bld) [#/Vol] 230 10*3/uL Normal 150-450 [facility] Comment on above: Performed By: #### B MP, CBC #### [facility] [address] [place] [address] [place] #### NICOTINE, FRUC #### [facility] , Potassium [Moles/volume] in Serum or PlasmaOrdered By: Santa Estrada on 04-15-2024 Potassium [Moles/Vol] 4.0 mmol/L Normal 3.5-5.1 [facility] Comment on above: Performed By: #### A 1C WTH eA, ALB, [id number], HGB #### [place] [address] [place] #### NICOTINE #### [facility] , Protein Auto test strip (U) [Mass/Vol]Ordered By: Santa Estrada on 04-15-2024 Protein (U) [Mass/Vol] Negative Negative [facility] Serum or plasma anion gap de terminationOrdered By: Santa Estrada on 04-15-2024 Anion gap [Moles/Vol] 6.7 mmol/L Normal 6.0-15.0 [facility] Comment on above: Performed By: #### A 1C WT eA, ALB, [id number], HGB #### [address] #### NICOTINE #### [facility] , Sodium [Moles/volume] in Ser um or PlasmaOrdered By: Santa Estrada on 04-15-2024 Sodium [Moles/Vol] 135 mmol/L Low 136-145 [facility] Comment on above: Performed By: #### A 1C WT eA, ALB, [id number], HGB #### [address] #### NICOTINE #### [facility] , Specific gravity Auto test s trip (U) [Rel density]Ordered By: Santa Estrada on 04-15-2024 Specific gravity (U) [Rel density] 1.009 1.001-1.03 0 [facility] Urea nitrogen [Mass/volume] in Serum or PlasmaOrdered By: Santa Estrada on 04-15-2024 Urea nitrogen [Mass/Vol] 10 mg/dL Normal 7-25 [facility] Comment on above: Performed By: #### A 1C WTH eA, ALB, [id number], HGB #### [place] [address] [place] #### NICOTINE #### [facility] , Urinalysison 07-22-2024 Appearance (U) Clear Normal Clear [facility] Comment on above: Order Comment: Name Collection Type:: Clean-Voided Midstream Performed By: #### U A #### [place] [address] [place] Bilirubin,Urine Negative Normal Negative [facility] Comment on above: Order Comment: Name Collection Type:: Clean-Voided Midstream Performed By: #### U A #### [place] [address] [place] Glucose Ql (U) Normal Normal Normal [facility] Comment on above: Order Comment: Name Collection Type:: Clean-Voided Midstream Performed By: #### U A #### [address] Ketones Ql (U) Negative Normal Negative [facility] Comment on above: Order Comment: Name Collection Type:: Clean-Voided Midstream Performed By: #### U A #### [place] [address] [place] Leukocyte esterase Test strip Ql (U) Negative Normal Negative [facility] Comment on above: Order Comment: Name Collection Type:: Clean-Voided Midstream Performed By: #### U A #### [place] [address] [place] Nitrite,Urine Negative Normal Negative [facility] Comment on above: Order Comment: Name Collection Type:: Clean-Voided Midstream Performed By: #### U A #### [place] [address] [place] Occult Blood,Urine Negative Normal Negative [facility] Comment on above: Order Comment: Name Collection Type:: Clean-Voided Midstream Result Comment: PERF ORMED BY: [place] [address] PATHOLOGIST COMMUNICATIONS DEPARTMENT CHAIRPERSON GENO BENEDICT M.D. Performed By: #### U A #### [place] [address] [place] Protein,Urine Negative Normal Negative [facility] Comment on above: Order Comment: Name Collection Type:: Clean-Voided Midstream Performed By: #### U A #### [facility] [address] Specificy Datto,Urine 1.009 Normal 1.001-1.03 0 [facility] Comment on above: Order Comment: Name Collection Type:: Clean-Voided Midstream Performed By: #### U A #### [facility] [address] [place] [address] Urobilinogen,Urine Normal Normal Normal [facility] Comment on above: Order Comment: Name Collection Type:: Clean-Voided Midstream Performed By: #### U A #### [address] Urine clarity by refractomet ry automatedOrdered By: Santa Estrada on 04-15-2024 Clarity Refractometry automated (U) Clear Clear [facility] Urine glucose measurement by automated test strip (mass/volume)Ordered By: Santa Estrada on 04-15-2024 Glucose Auto test strip (U) [Mass/Vol] Normal mg/dL Normal [facility] Urine hemoglobin detection b y automated test stripOrdered By: Santa Estrada on 04-15-2024 Hemoglobin Auto test strip Ql (U) Negative Negative [facility] Urine leukocyte esterase det ection by automated test stripOrdered By: Santa Estrada on 04-15-2024 Leukocyte esterase Auto test strip Ql (U) Negative Negative [facility] Urine pH measurement by auto mated test stripOrdered By: Santa Estrada on 04-15-2024 pH (U) 8.0 [pH] Normal 5.0-9.0 [facility] Comment on above: Order Comment: Name Collection Type:: Clean-Voided Midstream Performed By: #### U A #### [facility] [address] [place] [address] Urobilinogen Auto test strip (U) [Mass/Vol]Ordered By: Santa Estrada on 04-15-2024 Urobilinogen (U) [Mass/Vol] Normal mg/dL Normal [facility] CBC with Diffon 03-14-2024 Abs. Basophil 0.06 k/uL Normal 0.00-0.20 [facility] Comment on above: Performed By: #### C DP, VD25, FEBC, AHCV, GLYHGB, HIVCMB, TSHX, FERI, LIPRF, B12, CP #### [place] [phone] Braid Maker: Isreal Astorga MD Abs.Imm.Granulocyte <0.03 Normal 0.00-0.30 [facility] Comment on above: Performed By: #### C DP, VD25, FEBC, AHCV, GLYHGB, HIVCMB, TSHX, FERI, LIPRF, B12, CP #### [place] [address] Braid Maker: Isreal Astorga MD Abs.Neutrophil (Seg) 2.66 k/uL Normal 1.50-8.10 [facility] Comment on above: Performed By: #### C DP, VD25, FEBC, AHCV, GLYHGB, HIVCMB, TSHX, FERI, LIPRF, B12, CP #### [place] [address] Braid Maker: Isreal Astorga MD Basophils/100 WBC (Bld) 1 % Normal 0-2 [facility] Comment on above: Performed By: #### C DP, VD25, FEBC, AHCV, GLYHGB, HIVCMB, TSHX, FERI, LIPRF, B12, CP #### [place] [address] Braid Maker: Isreal Astorga MD Eosinophils (Bld) [#/Vol] 0.28 10*3/uL Normal 0.00-0.44 [facility] Comment on above: Performed By: #### C DP, VD25, FEBC, AHCV, GLYHGB, HIVCMB, TSHX, FERI, LIPRF, B12, CP #### [facility] [address] [place] [address] Braid Maker: Isreal Astorga MD Eosinophils/100 WBC (Bld) 5 % High 1-4 [facility] Comment on above: Performed By: #### C DP, VD25, FEBC, AHCV, GLYHGB, HIVCMB, TSHX, FERI, LIPRF, B12, CP #### [address] [phone] Braid Maker: Isreal Astorga MD Erythrocyte distribution width (RBC) [Ratio] 12.6 % Normal 11.8-14.4 [facility] Comment on above: Performed By: #### C DP, VD25, FEBC, AHCV, GLYHGB, HIVCMB, TSHX, FERI, LIPRF, B12, CP #### [place] [phone] Braid Maker: Isreal Astorga MD Hematocrit (Bld) [Volume fraction] 38.8 % Normal 36.3-47.1 [facility] Comment on above: Performed By: #### C DP, VD25, FEBC, AHCV, GLYHGB, HIVCMB, TSHX, FERI, LIPRF, B12, CP #### [place] [address] Braid Maker: Isreal Astorga MD Hemoglobin (Bld) [Mass/Vol] 12.9 g/dL Normal 11.9-15.1 [facility] Comment on above: Performed By: #### C DP, VD25, FEBC, AHCV, GLYHGB, HIVCMB, TSHX, FERI, LIPRF, B12, CP #### [place] [phone] Braid Maker: Isreal Astorga MD Immature granulocytes/100 WBC (Bld) 0 % Normal 0 [facility] Comment on above: Performed By: #### C DP, VD25, FEBC, AHCV, GLYHGB, HIVCMB, TSHX, FERI, LIPRF, B12, CP #### [address] [phone] Braid Maker: Isreal Astorga MD Lymphocytes (Bld) [#/Vol] 1.69 10*3/uL Normal 1.10-3.70 [facility] Comment on above: Performed By: #### C DP, VD25, FEBC, AHCV, GLYHGB, HIVCMB, TSHX, FERI, LIPRF, B12, CP #### [address] [phone] Braid Maker: Isreal Astorga MD Lymphocytes/100 WBC (Bld) 33 % Normal 24-43 [facility] Comment on above: Performed By: #### C DP, VD25, FEBC, AHCV, GLYHGB, HIVCMB, TSHX, FERI, LIPRF, B12, CP #### [address] [phone] Braid Maker: Isreal Astorga MD MCH (RBC) [Entitic mass] 29.9 pg Normal 25.2-33.5 [facility] Comment on above: Performed By: #### C DP, VD25, FEBC, AHCV, GLYHGB, HIVCMB, TSHX, FERI, LIPRF, B12, CP #### [address] [phone] Braid Maker: Isreal Astorga MD MCHC (RBC) [Mass/Vol] 33.2 g/dL Normal 28.4-34.8 [facility] Comment on above: Performed By: #### C DP, VD25, FEBC, AHCV, GLYHGB, HIVCMB, TSHX, FERI, LIPRF, B12, CP #### [address] [phone] Braid Maker: Isreal Astorga MD MCV (RBC) [Entitic vol] 89.8 fL Normal 82.6-102.9 [facility] Comment on above: Performed By: #### C DP, VD25, FEBC, AHCV, GLYHGB, HIVCMB, TSHX, FERI, LIPRF, B12, CP #### [address] [phone] Braid Maker: Isreal Astorga MD Monocytes (Bld) [#/Vol] 0.47 10*3/uL Normal 0.10-1.20 [facility] Comment on above: Performed By: #### C DP, VD25, FEBC, AHCV, GLYHGB, HIVCMB, TSHX, FERI, LIPRF, B12, CP #### [address] [phone] Braid Maker: Isreal Astorga MD Monocytes/100 WBC (Bld) 9 % Normal 3-12 [facility] Comment on above: Performed By: #### C DP, VD25, FEBC, AHCV, GLYHGB, HIVCMB, TSHX, FERI, LIPRF, B12, CP #### [address] [phone] Braid Maker: Isreal Astorga MD Neutrophil (Seg) 52 % Normal 36-65 [facility] Comment on above: Performed By: #### C DP, VD25, FEBC, AHCV, GLYHGB, HIVCMB, TSHX, FERI, LIPRF, B12, CP #### [address] [phone] Braid Maker: Isreal Astorga MD NRBC Automated 0.0 per 100 WBC Normal 0.0 [facility] Comment on above: Performed By: #### C DP, VD25, FEBC, AHCV, GLYHGB, HIVCMB, TSHX, FERI, LIPRF, B12, CP #### [address] [address] Braid Maker: Isreal Astorga MD Platelet mean volume (Bld) [Entitic vol] 9.7 fL Normal 8.1-13.5 [facility] Comment on above: Performed By: #### C DP, VD25, FEBC, AHCV, GLYHGB, HIVCMB, TSHX, FERI, LIPRF, B12, CP #### [address] [phone] Braid Maker: Isreal Astorga MD Platelets (Bld) [#/Vol] 256 10*3/uL Normal 138-453 [facility] Comment on above: Performed By: #### C DP, VD25, FEBC, AHCV, GLYHGB, HIVCMB, TSHX, FERI, LIPRF, B12, CP #### [address] [phone] Braid Maker: Isreal Astorga MD RBC (Bld) [#/Vol] 4.32 10*6/uL Normal 3.95-5.11 [facility] Comment on above: Performed By: #### C DP, VD25, FEBC, AHCV, GLYHGB, HIVCMB, TSHX, FERI, LIPRF, B12, CP #### [place] [address] Braid Maker: Isreal Astorga MD WBC (Bld) [#/Vol] 5.2 10*3/uL Normal 3.5-11.3 [facility] Comment on above: Performed By: #### C DP, VD25, FEBC, AHCV, GLYHGB, HIVCMB, TSHX, FERI, LIPRF, B12, CP #### [address] [phone] Braid Maker: Isreal Astorga MD Comp Metabolic Profon 2023 Albumin [Mass/Vol] 4.2 g/dL Normal 3.5-5.2 [facility] Comment on above: Performed By: #### C DP, VD25, FEBC, AHCV, GLYHGB, HIVCMB, TSHX, FERI, LIPRF, B12, CP #### [address] [phone] Braid Maker: Isreal Astorga MD Albumin/Glob Ratio 2.0 Normal 1.0-2.5 [facility] Comment on above: Performed By: #### C DP, VD25, FEBC, AHCV, GLYHGB, HIVCMB, TSHX, FERI, LIPRF, B12, CP #### [address] [phone] Braid Maker: Isreal Astorga MD Alkaline Phos 72 U/L Normal 35-104 [facility] Comment on above: Performed By: #### C DP, VD25, FEBC, AHCV, GLYHGB, HIVCMB, TSHX, FERI, LIPRF, B12, CP #### [address] [phone] Braid Maker: Isreal Astorga MD ALT [Catalytic activity/Vol] 21 U/L Normal 10-35 [facility] Comment on above: Performed By: #### C DP, VD25, FEBC, AHCV, GLYHGB, HIVCMB, TSHX, FERI, LIPRF, B12, CP #### [address] [phone] Braid Maker: Isreal Astorga MD Anion gap [Moles/Vol] 8 mmol/L Low 9-16 [facility] Comment on above: Performed By: #### C DP, VD25, FEBC, AHCV, GLYHGB, HIVCMB, TSHX, FERI, LIPRF, B12, CP #### [address] [address] Braid Maker: Isreal Astorga MD AST [Catalytic activity/Vol] 23 U/L Normal 10-35 [facility] Comment on above: Performed By: #### C DP, VD25, FEBC, AHCV, GLYHGB, HIVCMB, TSHX, FERI, LIPRF, B12, CP #### [address] [phone] Braid Maker: Isreal Astorga MD Bilirubin [Mass/Vol] 0.4 mg/dL Normal 0.00-1.20 [facility] Comment on above: Performed By: #### C DP, VD25, FEBC, AHCV, GLYHGB, HIVCMB, TSHX, FERI, LIPRF, B12, CP #### [address] [phone] Braid Maker: Isreal Astorga MD Calcium [Mass/Vol] 8.8 mg/dL Normal 8.6-10.4 [facility] Comment on above: Performed By: #### C DP, VD25, FEBC, AHCV, GLYHGB, HIVCMB, TSHX, FERI, LIPRF, B12, CP #### [address] [phone] Braid Maker: Isreal Astorga MD Chloride [Moles/Vol] 106 mmol/L Normal 98-107 [facility] Comment on above: Performed By: #### C DP, VD25, FEBC, AHCV, GLYHGB, HIVCMB, TSHX, FERI, LIPRF, B12, CP #### [address] [phone] Braid Maker: Isreal Astorga MD CO2 [Moles/Vol] 25 mmol/L Normal 20-31 [facility] Comment on above: Performed By: #### C DP, VD25, FEBC, AHCV, GLYHGB, HIVCMB, TSHX, FERI, LIPRF, B12, CP #### [address] [address] Braid Maker: Isreal Astorga MD Creatinine [Mass/Vol] 0.7 mg/dL Normal 0.50-0.90 [facility] Comment on above: Performed By: #### C DP, VD25, FEBC, AHCV, GLYHGB, HIVCMB, TSHX, FERI, LIPRF, B12, CP #### [address] [phone] Braid Maker: Isreal Astorga MD GFR/1.73 sq M.predicted among non-blacks MDRD (S/P/Bld) [Vol rate/Area] mL/min/{1.73_m2} Normal >60 [facility] Comment on above: Result Comment: These results are not intended for use in patients <18 years of age. eGFR results are calculated without a race factor using the 2020 CKD-EPI equation. Careful clinical correlation is recommended, particularly when comparing to results calculated using previous equations. The CKD-EPI equation is less accurate in patients with extremes of muscle mass, extra-renal metabolism of creatine, excessive creatine ingestion, or following therapy that affects renal tubular secretion. Performed By: #### C DP, VD25, FEBC, AHCV, GLYHGB, HIVCMB, TSHX, FERI, LIPRF, B12, CP #### [place] [phone] Braid Maker: Isreal Astorga MD Glucose [Mass/Vol] 94 mg/dL Normal 74-99 [facility] Comment on above: Performed By: #### C DP, VD25, FEBC, AHCV, GLYHGB, HIVCMB, TSHX, FERI, LIPRF, B12, CP #### [place] [phone] Braid Maker: Isreal Astorga MD Potassium [Moles/Vol] 3.8 mmol/L Normal 3.7-5.3 [facility] Comment on above: Performed By: #### C DP, VD25, FEBC, AHCV, GLYHGB, HIVCMB, TSHX, FERI, LIPRF, B12, CP #### [address] [phone] Braid Maker: Isreal Astorga MD Protein [Mass/Vol] 6.7 g/dL Normal 6.6-8.7 [facility] Comment on above: Performed By: #### C DP, VD25, FEBC, AHCV, GLYHGB, HIVCMB, TSHX, FERI, LIPRF, B12, CP #### [address] [phone] Braid Maker: Isreal Astorga MD Sodium [Moles/Vol] 139 mmol/L Normal 136-145 [facility] Comment on above: Performed By: #### C DP, VD25, FEBC, AHCV, GLYHGB, HIVCMB, TSHX, FERI, LIPRF, B12, CP #### [address] [phone] Braid Maker: Isreal Astorga MD Urea nitrogen [Mass/Vol] 12 mg/dL Normal 6-20 [facility] Comment on above: Performed By: #### C DP, VD25, FEBC, AHCV, GLYHGB, HIVCMB, TSHX, FERI, LIPRF, B12, CP #### [address] [phone] Braid Maker: Isreal Astorga MD Ferritinon 03-14-2024 Ferritin [Mass/Vol] 133 ng/mL Normal 13-150 [facility] Comment on above: Result Comment: FERRITIN Reference Ranges: Adult Males 20 - 60 years: 30 - 400 ng/mL Adult females 17 - 60 years: 13 - 150 ng/mL Adults greater than 60 years: no established reference range Pediatrics: no established reference range Performed By: #### C DP, VD25, FEBC, AHCV, GLYHGB, HIVCMB, TSHX, FERI, LIPRF, B12, CP #### [address] [phone] Braid Maker: Isreal Astorga MD HIV Ag/Abon 03-14-2024 HIV Ag/Ab Non-Reactive Normal NR [facility] Comment on above: Result Comment: No l aboratory evidence of HIV infection. If acute HIV infection is suspected, consider testing for HIV-1 RNA. Performed By: #### C DP, VD25, FEBC, AHCV, GLYHGB, HIVCMB, TSHX, FERI, LIPRF, B12, CP #### [address] [phone] Braid Maker: Isreal Astorga MD Hemoglobin A1Con 03-14-2024 Glucose [Mass/Vol] 94 mg/dL Normal [facility] Comment on above: Result Comment: The ADA and AACC recommend providing the estimated average glucose result to permit better patient understanding of their HBA1c result. Performed By: #### C DP, VD25, FEBC, AHCV, GLYHGB, HIVCMB, TSHX, FERI, LIPRF, B12, CP #### [address] [phone] Braid Maker: Isreal Astorga MD HbA1c (Bld) [Mass fraction] 4.9 % Normal 4.0-6.0 [facility] Comment on above: Performed By: #### C DP, VD25, FEBC, AHCV, GLYHGB, HIVCMB, TSHX, FERI, LIPRF, B12, CP #### [address] [phone] Braid Maker: Isreal Astorga MD Hep C Abon 03-14-2024 Hep C Ab Non-Reactive Normal NR [facility] Comment on above: Result Comment: The hepatitis C procedure used in our laboratory is a Chemiluminescent test specific for three recombinant HCV antigens. A negative anti-HCV result indicates that the antibodies to hepatitis C virus are not present at this time. Individuals with reactive anti-HCV should be considered infected and infectious until proven otherwise. Confirmation of all equivocal or reactive results is recommended by ordering HCV RNA by PCR. Performed By: #### C DP, VD25, FEBC, AHCV, GLYHGB, HIVCMB, TSHX, FERI, LIPRF, B12, CP #### [facility] [address] [phone] Braid Maker: Isreal Astorga MD Iron Binding Cap.on 03-14-20 24 % Fe Saturation 44 % Normal 20-55 [facility] Comment on above: Performed By: #### C DP, VD25, FEBC, AHCV, GLYHGB, HIVCMB, TSHX, FERI, LIPRF, B12, CP #### [address] [phone] Braid Maker: Isreal Astorga MD Iron [Mass/Vol] 107 ug/dL Normal 37-145 [facility] Comment on above: Performed By: #### C DP, VD25, FEBC, AHCV, GLYHGB, HIVCMB, TSHX, FERI, LIPRF, B12, CP #### [address] [phone] Braid Maker: Isreal Astorga MD Total Fe Binding Cap 243 ug/dL Low 250-450 [facility] Comment on above: Performed By: #### C DP, VD25, FEBC, AHCV, GLYHGB, HIVCMB, TSHX, FERI, LIPRF, B12, CP #### [address] [phone] Braid Maker: Isreal Astorga MD Unbound Fe Bind Cap 136 ug/dL Normal 112-347 [facility] Comment on above: Performed By: #### C DP, VD25, FEBC, AHCV, GLYHGB, HIVCMB, TSHX, FERI, LIPRF, B12, CP #### [address] [phone] Braid Maker: Isreal Astorga MD Lipid Prof, Fastingon 2023 Cholesterol [Mass/Vol] 174 mg/dL Normal 0-199 [facility] Comment on above: Result Comment: Cholesterol Guidelines: <200 Desirable 200-240 Borderline >240 Undesirable Performed By: #### C DP, VD25, FEBC, AHCV, GLYHGB, HIVCMB, TSHX, FERI, LIPRF, B12, CP #### [address] [phone] Braid Maker: Isreal Astorga MD Cholesterol in HDL [Mass/Vol] 57 mg/dL Normal >40 [facility] Comment on above: Result Comment: HDL Guidelines: <40 Undesirable 40-59 Borderline >59 Desirable Performed By: #### C DP, VD25, FEBC, AHCV, GLYHGB, HIVCMB, TSHX, FERI, LIPRF, B12, CP #### [address] [phone] Braid Maker: Isreal Astorga MD Cholesterol in LDL [Mass/Vol] 96 mg/dL Normal 0-100 [facility] Comment on above: Result Comment: LDL Guidelines: <100 Desirable 100-129 Near to/above Desirable 130-159 Borderline >159 Undesirable Direct (measured) LDL and calculated LDL are not interchangeable tests. Performed By: #### C DP, VD25, FEBC, AHCV, GLYHGB, HIVCMB, TSHX, FERI, LIPRF, B12, CP #### [address] [phone] Braid Maker: Isreal Astorga MD Cholesterol in VLDL [Mass/Vol] 22 mg/dL Normal [facility] Comment on above: Performed By: #### C DP, VD25, FEBC, AHCV, GLYHGB, HIVCMB, TSHX, FERI, LIPRF, B12, CP #### [address] [phone] Braid Maker: Isreal Astorga MD Cholesterol.total/Chol esterol in HDL [Mass ratio] 3.0 {ratio} Normal [facility] Comment on above: Performed By: #### C DP, VD25, FEBC, AHCV, GLYHGB, HIVCMB, TSHX, FERI, LIPRF, B12, CP #### [facility] [employer] [address] [place] [address] [phone] Braid Maker: Isreal Astorga MD Triglyceride,Fasting 108 mg/dL Normal 0-149 [facility] Comment on above: Result Comment: Triglyceride Guidelines: <150 Desirable 150-199 Borderline 200-499 High >499 Very high Based on AHA Guidelines for fasting triglyceride, June 2012. Performed By: #### C DP, VD25, FEBC, AHCV, GLYHGB, HIVCMB, TSHX, FERI, LIPRF, B12, CP #### [facility] [employer] [address] [place] [address] [phone] Braid Maker: Isreal Astorga MD TSH w/reflex to FT4on 2023 Thyroid Stim. Horm. 2.37 uIU/mL Normal 0.27-4.20 [facility] Comment on above: Performed By: #### C DP, VD25, FEBC, AHCV, GLYHGB, HIVCMB, TSHX, FERI, LIPRF, B12, CP #### [facility] [address] [place] [address] [phone] Braid Maker: Isreal Astorga MD Vitamin B12on 03-14-2024 Cobalamin (Vitamin B12) [Mass/Vol] 695 pg/mL Normal 232-1245 [facility] Comment on above: Performed By: #### C DP, VD25, FEBC, AHCV, GLYHGB, HIVCMB, TSHX, FERI, LIPRF, B12, CP #### [facility] [employer] [address] [place] [address] [phone] Braid Maker: Isreal Astorga MD Vitamin D 25 OHon 03-14-2024 Vitamin D 25 OH 17.4 ng/mL Low 30.0-100.0 [facility] Comment on above: Result Comment: Reference Range: Vitamin D status Range Deficiency <20 ng/mL Mild Deficiency 20-30 ng/mL Sufficiency 30-100 ng/mL Toxicity >100 ng/mL Performed By: #### C DP, VD25, FEBC, AHCV, GLYHGB, HIVCMB, TSHX, FERI, LIPRF, B12, CP #### [facility] [address] [phone] Braid Maker: Isreal Astorga MD Patient Handouton 03-13-2024 Patient Handout Custom [facility] Surgery [facility] [address], [address], [place] Date: 03/13/2024 RE: Lucila Jacques To whom it may concern, Lucila has been under my professional care due to a surgical procedure performed on 02/27/2024. She may return to work with no restrictions on 03/20/2024. Thank you, Peter Booth M.D. Normal [facility] Release of Informationon Release of Information [id number] Normal [facility] A1C with Estimated Average G luon 03-12-2024 Glucose [Mass/Vol] 105 mg/dL Normal [facility] Comment on above: Result Comment: PERF ORMED BY: [place] [address] PATHOLOGIST COMMUNICATIONS DEPARTMENT CHAIRPERSON GENO BENEDICT M.D. Performed By: #### A 1C WTH eA, ALB, [id number], HGB #### [address] #### NICOTINE #### [facility] , Albumin Levelon 03-12-2024 Albumin [Mass/Vol] 4.0 g/dL Normal 3.5-5.7 [facility] Comment on above: Performed By: #### A 1C WTH eA, ALB, [id number], HGB #### [address] #### NICOTINE #### [facility] , Albumin [Mass/volume] in Ser um or Plasma by Bromocresol green (BCG) dye binding methoOrdered By: Santa Estrada on 03-12-2024 Albumin BCG dye [Mass/Vol] 4.0 g/dL 3.5-5.7 [facility] Cotinine [Mass/volume] in Se rum or PlasmaOrdered By: Santa Estrada on 03-12-2024 Cotinine [Mass/Vol] 3.7 ng/mL . [place] Comment on above: This test was develo ped and its performance characteristicsdetermined by [facility]. It has not been cleared orapproved by the Food and Drug Administration.Cotinine levels greater than 20.0 are consistent with theuse of tobacco or tobacco cessation products.Performed at: [address] [id number] Director: Marcellus Dave MD, Phone: [phone] Glucose mean value [Mass/vol ume] in Blood Estimated from glycated hemoglobinOrdered By: Santa Estrada on 03-12-2024 Average glucose Estimated from glycated hemoglobin (Bld) [Mass/Vol] 105 mg/dL [facility] Hemoglobin A1c percentageOrd ered By: Santa Estrada on 03-12-2024 HbA1c (Bld) [Mass fraction] 5.3 % Normal 4.3-5.6 [facility] Comment on above: Increased risk for d iabetes: 5.7 - 6.4diabetes: >6.4glycemic control for adults with diabetes: <7.0 Result Comment: Incr eased risk for diabetes: 5.7 - 6.4 diabetes: >6.4 glycemic control for adults with diabetes: <7.0 Performed By: #### A 1C WTH eA, ALB, [id number], HGB #### [place] [address] [place] #### NICOTINE #### [facility] , Hemoglobin [Mass/volume] in BloodOrdered By: Santa Estrada on 03-12-2024 Hemoglobin (Bld) [Mass/Vol] 12.8 g/dL Normal 11.8-15.4 [facility] Comment on above: Result Comment: PERF ORMED BY: [place] [address] PATHOLOGIST COMMUNICATIONS DEPARTMENT CHAIRPERSON GENO BENEDICT M.D. Performed By: #### A 1C WTH eA, ALB, [id number], HGB #### [facility] [address] [place] [address] [place] #### NICOTINE #### [facility] , MRSA Cultureon 03-12-2024 MRSA Culture No MRSA Isolated 2 D ays PERFORMED BY: [place] [address] PATHOLOGIST COMMUNICATIONS DEPARTMENT CHAIRPERSON GENO BENEDICT M.D. Normal [facility] Comment on above: Performed By: #### C UMRSA #### [address] Nicotine [Mass/volume] in Se rum or PlasmaOrdered By: Santa Estrada on 03-12-2024 Nicotine [Mass/Vol] <1.0 ng/mL . [place] Comment on above: This test was develo ped and its performance characteristicsdetermined by [facility]. It has not been cleared orapproved by the Food and Drug Administration.Nicotine levels greater than 2.0 are consistent with theuse of tobacco or tobacco cessation products. Nicotine/Cotinine Bloodon Cotinine, Blood 3.7 ng/mL Normal . [facility] Comment on above: Result Comment: This test was developed and its performance characteristics determined by [facility]. It has not been cleared or approved by the Food and Drug Administration. Cotinine levels greater than 20.0 are consistent with the use of tobacco or tobacco cessation products. Performed at: [address] [id number] Braid Maker: Marcellus Dave MD, Phone: [phone] PERFORMED BY: [place] [address] PATHOLOGIST COMMUNICATIONS DEPARTMENT CHAIRPERSON GENO BENEDICT M.D. Performed By: #### A 1C WTH eA, ALB, [id number], HGB #### [place] [address] [place] #### NICOTINE #### [facility] , Nicotine, Blood <1.0 Normal . [facility] Comment on above: Result Comment: This test was developed and its performance characteristics determined by [facility]. It has not been cleared or approved by the Food and Drug Administration. Nicotine levels greater than 2.0 are consistent with the use of tobacco or tobacco cessation products. Performed By: #### A 1C WTH eA, ALB, [id number], HGB #### [address] #### NICOTINE #### [facility] , Vitamin D 25 Hydroxy Totalon 03-12-2024 Vitamin D 25 Hydroxy Total 18.4 ng/mL Low 30-100 [facility] Comment on above: Result Comment: EVE MIN D STATUS 25(OH)VITAMIN D RANGE (ng/mL) Deficient <20 Insufficient 20 to <30 Sufficient 30 to 100 Reference: Juliano Vial, Tate VELAZQUEZ, et al. Evaluation,treatment, and prevention of vitamin D deficiency; an Endocrine Society clinical practice guideline. JCEM. 2010; 96(7):1911-30. PERFORMED BY: [place] [address] PATHOLOGIST COMMUNICATIONS DEPARTMENT CHAIRPERSON GENO BENEDICT M.D. Performed By: #### A 1C WTH eA, ALB, [id number], HGB #### [address] #### NICOTINE #### [facility] , Vitamin D+Metabolites [Mass/ volume] in Serum or PlasmaOrdered By: Santa Estrada on 03-12-2024 Vitamin D+Metabolites [Mass/Vol] 18.4 ng/mL Low 30-100 [facility] Comment on above: VITAMIN D STATUS 25( OH)VITAMIN D RANGE (ng/mL) Deficient <20 Insufficient 20 to <30Sufficient 30 to 100Reference: Juliano Vila, Tate VELAZQUEZ, et al. Evaluation,treatment, and prevention of vitamin D deficiency; an Endocrine Society clinical practice guideline. JCEM. 2010; 96(7):1911-30. Wound methicillin resistant Staphylococcus aureus (MRSA) cultureOrdered By: Santa Estrada on 03-12-2024 MRSA isol Org specific cx Ql (Unsp spec) No MRSA Isolated 2 Days [facility] Coding Summaryon 03-07-2024 Coding Summary HTMLBase 64 MdrjlxxeAWt9sNu+PGhlYWQ+PE1 HJNDtC65ciGIicR1eN3DVCHlRDc zfSLISMZcKGvPmbzYfRI0bxRLvO XJu IC8+GA9tJIApMaclzWZcj1J0mZW 6K74aoq9iZVadcIW4XPUmPgNzrp unx4vcgGn3ZVtoLlfcNsQj RVZrwG46XZN4fS69Rj60mTYcjAL uy1rvrWu7IhPuVRXpVGL8xPfpHY xun0KwOCTsQ61dgDVig0X0 NFKrkNbrlRMcMkXbdLW3nL6zBWn bsgqqt3cbscraLzs3dq13xBKnp5 R0fGN9Y0TvccE1BJUqdJJz WkqsgVPVaO2qprcks1lynsyzUoS lPRZfMGv2AYs8QDQppGxeByCxTN 43SLN6MAFekhAtB8WpNHVm mIsgYhL1w8Z2Qm1JE7VMExnjC6K NTUFSWTwvdGQ+JG81qx23C8WwOc fwKsz6HUQvOZL0pWO9uJ2g MMGaIYpak7K6mST5P1CrukVwbb7 gz4haXQFdZZlbT91leBJvj6H6DU KnnXO6TNDyoEqhNjAxxR67 Oyc+PRMgdMlxw7PjPrguf1lti1j jaVl1AvbpMYQznnBbwSwjROM9d9 XzQq3xLEGjaZJ2jPY1nO7w NwCoZqI9FEdmF130EgZdjZVwWxv rZ91qB6DonHN+GQTnLlh0PIUgnS dsRH3oV2QhDXGfrjmdoIRq zAagVM1aUHSpkfpkDSLymK7mCBP sU5y7PlKmBdN0TLrsL9AbBDVicv seKx61pH7gDfHeDjZ4FDoe D9HcgfG8QSIghJKkDAxkGLI0D38 gn0Y0GSOpMAUrLOU8rLS6bO9pxU lnbjogbGVmdDsgdmVydGlj XHmaWSfbE869UJRdtCvsGlKcYWx uZyBEYXRlOiAgMDYvMTMvMjAyND wvdGQ+UDSgTEY1qFftRBWn eQSyWCklCc2bnKhrtTevGE8xNHW gprhsSKJbeF5nHDXdhRCwhMrpYF 8wJAWxuhvfn951PqXxUBH4 ZBEfoUOuG4LlvO6jKpLaRUWxVRB oU5YhvATbNErdW908YHilRhK0WC MtxiWeF8SyIJKrhJroOyE4 g2C4Ui8Oe2YhrzvgZ3IhfSDhIxR yYcbtBVn7P0OqZeokiVB+PC90YW ClVQ03NZp5ZDK4eVhxTGgz YXXgZ5TvhJ4aJmUvSOCeWWGsFel +PHRhYmxlIHdpZHRoPScxMDAlJy WvhZroGE3jSg9wAMGrFHZu dPtecGWuFcXtv9jcSOVlXYarBH6 lnDolI5MkvWT0QCEbv1i4Ah81P1 0tM1HjsXA+RTTjiBY0jAZ2 tX7qWeHzKsZ1MKvwT060ZdIlbRN nEdknp7hea4iniTx9DsM1UYAaox TfpVauZPR9d9DsAm46T19h IHdpZHRoPSIxNSUiIHZhbGlnbj0 dhQ6mPi2+TZLpoAR1ySE1uU8aLh NyZwI0QNrmJ112KyPdvYDo Glurm3tuw0gtzZv1AcPkFMUxkfG lwAjwKPL6t4UvEb69M3XxqGnde7 CeCum6mt16aZGxg8N9kCD8 J6OfUZIjpqxrwNStmHfrUU9lOHT emdpqVXAifG6rIPElB2f2ApUmKf I6HEukY6BhnkK2KINgbWIg NEKsgRYDdL4ovxhhk7teboabFhD lRNAgBRb0KYa1UQHuxYxkCyYfLO G5IzD9PVY8zJOjrS6koFjg ewdpxU9pYdm+MRR2sIGcvFXHHD1 lOjwvdGQ+SQDiAUR3kPswRVaoGB VixL8gUOWlF0m5VaAfFiP7 LDvbI6QvlwC5DHEyrZOvWZQeoUO RvG3qzqtnk0pjczzrYtUiDYQdLG b4QDq4PJBxzZklKoWwMFX2 JnC9DKS5zOOvbI5whMbqckubpM2 wOyc+CfbjwNbmJJU1CUi5W1VkEl m6KKLtmNksXR4ljIWmROki Zt3fhJwowRwjGQ6yZTGwcjvkt02 2LqPic1ojCEUntJGpIUupZRN9C0 5sc9Q1PFKuDXSuLVD5gJX0 eP3swUkzathigAGvqZxjhyYrrGo gNIssSLimT238CQEulSiwZfRzMF u9U1IoJxx4UAVxxVlmUN0r rZMdXOhyMu9fcPivtBttWY3yXEB jtgffk712YoVkx2rkCIZwwYEnXU ifFLS3O80wi9N8HEXyLKEi IOH8uIR2mJ8leXbotlubdHBggXv owpGamRbkNQkkAEziH795PGChzC pwIcUabZh0N6DkGpx9XBWd bNdnYT1bfVAdTWofIm6hhTnztSk rAQ1nBOIofvuft558DiAer3iaKG DkxNUzQWweOQZ4M40xe0N2 ZBRaGVAgIYZ7pLD0mL6isXcasav gbGVmdDsgdmVydGljYWwtYWxpZ2 46IHRvcDsnPlBhdGllbnQg NSmlMCw4F4KtSzdkrOF+DX53QXY sFR96dYXgzCWyp2vfuIb2TjVpBO GsRQV4jItpPLqae8IxTSEo Z42ihRLio7P0SVUxkWzdnEAwLnC dpTQ3fD6vJZubejqni1gmwhraKg sfr4tqiv61rW77B97hQRmb DNBcYNUmJPPxTODzmZvrtt7rlT0 wIi8+YJRxyBN6xOM9jW0nAXNsEb X6YGmiR369KyZmwIZdQfja p6amf8temGf4RbL0LBCjfyKujCc gKSK0m0MrBm55G67gEMzuNGOhAK TjKZQdLARbiDgvbj4laL5w Ii8+WXCqjOI8bRE9cB0jVhPdMwP 4PDguO189WaVyzVCeEuizM55lH8 JvdXA+GUQsQmu9PYTlcSwd GT0fnKGeSNsbRp8gFXM2SnYmWlU xBGmzX4ZrWMOmovwgyefkjHP2YJ KhAXByiN60Cs7bzAbwTCQk lYHBxW8iuycor7vtplojIeQiCFU jNSh3NWf0VXZppQsmHjRuOKW5Hz J8UXK6tKHctL9anXgzrlkc tR7aS4TcVSNwuxsdAp89fS4lXpU xXsS7ZWcpGfh+ImGQOtxwA1PLDO eQMrPQFGE3M7VnUec6ZWFd oLycHY8ppFAnHZvkWr3hgSutlTu lDH0tDHReawbqQELohI3uVUMwrD AopZzsCV9jVJYgdfsmb787 CjIdKFU3LRXciCPmE7YwpP9bEgJ kQSDxLMAkV2VmtNVhJOsxH338UP tdAmJ3KHCyueVjR5TqJKTx tXzpDkZ4x8Z1Ds2aIG0yZl1gPEb 4SM88DI49sVKvh9R7nZG4O7YnQU ZazwwowlfipBS9QWJwHHJn tC90fXQyVVjwVw0er1A6s335VTM cLLTqzV41Em1ziDyeWWWuiBQXqY 6zkpvuy4ldqcjvVmMsJBJi UNg8ZYm1WAXmlQlrAjZlQQK5FoR 6CMQ8lYCuuO6inXmjjlchwH0pMt c+XqUdXJZrmsO0G3SkFoy5 KXJkgYxcIW0znXAcRNdsGw9hvZe deSbzBD5lCRLoplvpGKEsjS1tXJ BesBDemHynYN9aYVHzrzor x204ZcSbXYY3VXDvcOTjD2CjxH5 dHmKgUYWwKUWtA1OplBOyIMwgE9 36SAwiBaY6BIObnyQkC3Aw MUYvwWnsNkR3d5X5Ps6KIB6YGPU 7Q9McPvp0WLMseQckUQ8sjQRqLW cnRg5yiMghhNbfUP7qOZZn ragpARTpmB7iBQFceBYgcTvrNP2 tPNNmgsxci186FaGbFGH2CSKryX ApS9SehG0oKmLvSFAaLJTx K1MnkMNfXQmpT319KOqjWgT3NEY sgxUnX6XpWUWwwWhqFnW9m1M3Pw 5PYnNlcnZhdGlvbjwvdGQ+ CM63ui36M6JjEvyvSxm8JAVlKEG 9dWM9lQ3eBSXpFZmlm7N3jDM4V9 LxlqUnoo8ls5vhKEPhEIei P55pcBFcn0U7EKUuqSS0FRYcpSt eDmZezJ73Nxi+KHQmbPwoe7PkUs ruw6vgn4lxpRu4KyWaHXQv epGerOphFCG8b3WzEd52N65fJBu ySYMsSZEnUFLkNRQywAebji1qsS 9wIi8+CJSsaAS3wPX6qM1w RtKbOdI4VHfqG798QzRmbOTzVvu uk2xlt9nreGm6YsTqIIGehgRxzI mjYUQ4p4VzAf41V3CyxBtc e2GrDhd2jh03zGBgq8I5pQJ9X2D lDRTsclgufTFcrJbfZU4kJIEgxu mmYIMkdW5vHWJyJ7c7BtJc FsQ7WPqgR8UjrgH5NUFfnQDcVXA nxRCHfN9flpksf0vezhqoUfWuUN NjTNx9BJl1ZHAqcMkzNaMa EAE3HrN1UOC5iUPtdJ9vlMkwtbd awE8cBop+HNz5d3esaUHtVT5lxY S2YE49IA95tMPpt7O0wQD5 Y6XjSHKwrahqdaquaSV2IZLaASU gsO33Pg9tzTwbZw0hZXBwQTV6CW MbeIKxD5JxsI9lWrJqNFLb SXFcH1IraRYzIGxmX165JCftRsY 5HVHjkvYuT7KcEOZjfYphQuC7q2 O4Gv1JKM92HP02CM15lXIr h5U1eAR0K7VeHEIfukizekppfVK 8PAIoZRYbhH86Us6aeNdqBy3lZK OpAWH4PXSaoSHeI5EuiP4z QpUhODWpWFIqV5VgfQHnQSerH71 8BHpgNdE3GMTwjbZeT6DqHDImoS mmWyR1n2U6Vj9NMt87ST29 ER76bZNxq1W3jMD9G4FoSOWkeqq ozltitIK0TQAjJXQtrZ15Oy2grU vgPc3vTBGuIUJ2MQQkaBDt X9AajE7mOyLcZZNoIENuT0ZigTD vYIfeU713LFneFqR5HJJxeqVfH9 MaVZUckWujUnW4u3D0Ez1G PLpwstu1R1OlBvdofWJ+ES08FML hKY25bABuiOEnt6basKh1KpHkPL HbMKD3gXmlSBhca0XiJOQk Y29 (more content not included)... Normal [facility] - [facility] Results [id number] Normal [facility] MR KNEE LT WO CONTon 024 MR KNEE LT WO CONT MR KNEE LT WO CONT MRI LEFT KNEE CLINICAL INFORMATION: Internal derangement of left knee, acute left knee pain, status post left knee arthroscopy with meniscectomy. COMPARISON: ?None. PROCEDURE: ?Multisequence, multiplanar MR images of the knee were obtained. FINDINGS: MENISCI Medial meniscus: Subtle truncation of the anterior aspect of the medial meniscus with linear signal abnormality extending through the posterior/body of the posterior horn of the medial meniscus. Additionally, there is medial extrusion of the body of the meniscus. Lateral meniscus: Intact. LIGAMENTS Cruciate ligaments: Intact. Medial collateral ligament: Superficial and deep components intact. No periligamentous edema. Lateral collateral ligament: Intact. EXTENSOR MECHANISM Extensor mechanism: Distal quadriceps tendon and patellar tendons are intact. The patella is normally positioned within the trochlear groove. Medial lateral patellofemoral ligaments appear intact. FLUID Fluid: Small Bolanos's cyst present with multifocal cystic fluid collections seen within the proximal leg as representing ganglion cysts/extension of joint fluid. There is a moderate-sized suprapatellar joint effusion with apparent plica formation. OSSEOUS and ARTICULAR STRUCTURES Bones: Edema most notably within the medial compartment subarticular region of both the femur and tibial plateau. There is no acute fracture, dislocation, or destructive osseous lesion. Marginal osteophyte formation notably along the medial aspect of the medial femoral condyle. Patellofemoral compartment: Incidental tripartite patella. There is several near full-thickness cartilage defects within the articular surface the patella with moderate loss of cartilage seen within the articular surface of the trochlea. Medial compartment: Full-thickness loss of hyaline cartilage is seen involving a large portion of the medial compartment. Lateral compartment: Mild thinning of the hyaline cartilage without full-thickness defect. IMPRESSION: * Presumed postsurgical changes following meniscectomy of the medial meniscus with horizontal tear of the medial body/posterior horn of the meniscus. Of note, there is pronounced medial extrusion of the meniscal body. * Complete/near-complete loss of hyaline cartilage within the medial compartment with acute on chronic degenerative changes/bone edema in the medial femoral condyle/tibial plateau. * Moderate-sized suprapatellar joint effusion with plica formation and small Bolanos's cyst. * Additional multi compartmental degenerative changes as detailed above Approved by Resident Mason Easley DO on 03/04/2024 9:20 AM I, Genevieve Mckenzie MD have personally reviewed the image(s) and agree with and/or edited the report Finalized by Genevieve Mckenzie MD on 03/04/2024 9:59 AM Normal [facility] Consent Formson 02-29-2024 Consent Forms [id number]#1.00OTGTIFF [facility] Consent Formson 02-28-2024 Consent Forms [id number]#1.00OTGTIFF [facility] Consent Forms [id number] 02-28-2024 MAGR Postoperative Record MAGR Phase II Record Summary Primary Physician: Peter Booth MD Finalized Date/Time: 02/28/24 07:49:14 Pt. Name: LUCILA JACQUES/Sex: 1990 FEMALE Med Rec #: [id number] Physician: Param Michelle DO Financial #: [id number] Pt. Type: O Room/Bed: [facility]/ Admit/Disch: 02/26/24 22:40:28 - 02/27/24 18:45:00 Institution: Phase II Case Times MAGR Pre-Care Text: Patient is free from s/s of injury. Patient remains free from compromised physical state related to surgery or anesthesia. Patient comfort maintained. Patient/family verbalize understanding of discharge instructions. Entry 1 In PACU II 02/27/24 13:41:00 Discharge from PACU 02/27/24 14:26:00 II Last Modified By: Mya Villar RN 02/28/24 07:49:11 Post-Care Text: The patient remains free from s/s of injury. Patient's vital signs stable, circulation maintained, return to preop mental and physical status, opsite/dressing intact, minimal or absent nausea and vomiting, tolerates po intake. Patient verbalizes adequate pain control. Patient/family express understanding of discharge instructions. Finalized By: Mya Villar RN Document Signatures Signed By: Mya Villar RN 02/28/24 07:49 [facility] Outside Recordson 02-28-2024 Outside Records [id number]#[address] [place] [address] Telemetry Stripson Telemetry Strips [id number]#[address] .Auto Diff 1on 02-27-2024 Auto Spencer % 8 % Normal -12 [facility] Comment on above: Performed By: #### 1 6323766, [id number], 3068175, 1572555641, 9386444, 9263795, 5110343, 8606757 #### [facility] (DEFAULT) [address] [place] [address] 15211 Baso Abs# 0.0 x10 Normal 0.0-0.2 [facility] Comment on above: Performed By: #### 1 4077606, 0892123358, 1306371, 5124292825, 2972060, 2916630, 8126957, 5159124 #### [facility] (DEFAULT) [address] [place] [address] 27606 Basophils/100 WBC (Bld) 0.4 % Normal 0.2-2.0 [facility] Comment on above: Performed By: #### 1 5448182, 9955375110, 0922215, 8031585660, 5444064, 8671211, 7011434, 8444351 #### [facility] (DEFAULT) [address] [place] [address] 65040 Eos Abs# 0.1 x10 Normal 0.0-0.4 [facility] Comment on above: Performed By: #### 1 4030032, 6115510775, 1990272, 5711425047, 7478267, 1459280, 2793739, 7795911 #### [facility] (DEFAULT) [address] [place] [address] 36891 Eosinophils/100 WBC (Bld) 1.1 % Normal 0.9-4.0 [facility] Comment on above: Performed By: #### 1 2755716, 3279766530, 9625599, 3248734501, 5766802, 0837786, 7928029, 9476254 #### [facility] (DEFAULT) [address] [place] [address] 80377 Lymph Abs# 2.1 x10 Normal 1.3-2.9 [facility] Comment on above: Performed By: #### 1 0532275, 0207170156, 7577363, 0520976321, 1706314, 7861740, 2849886, 5586167 #### [facility] (DEFAULT) [address] [place] [address] 81974 Lymphocytes/100 WBC (Bld) 28 % Normal 14-48 [facility] Comment on above: Performed By: #### 1 6827185, 8158058797, 3592897, 4022255405, 5236444, 5073661, 6743044, 4076923 #### [facility] (DEFAULT) [address] [place] [address] 29090 Spencer Abs# 0.6 x10 Normal 0.0-0.8 [facility] Comment on above: Performed By: #### 1 0034296, 9369385420, 3824270, 4665222288, 9137926, 4163988, 4655642, 3696866 #### [facility] (DEFAULT) [address] [place] [address] Neut Abs# 4.8 x10 Normal 1.5-9.2 [facility] Comment on above: Performed By: #### 1 4956648, 7787575892, 2531421, 5340521065, 2981037, 4900730, 8862983, 4295331 #### [facility] (DEFAULT) [address] [place] [address] Neutrophils/100 WBC (Bld) 63 % Normal 44-88 [facility] Comment on above: Performed By: #### 1 6603021, 1728086058, 6259116, 8839577421, 4731038, 9928082, 9855227, 7379025 #### [facility] (DEFAULT) [address] [place] [address] 15660 Amylaseon 02-27-2024 Amylase [Catalytic activity/Vol] 51.0 U/L Normal 28.0-100.0 [facility] Comment on above: Performed By: #### 1 7933594, 1132606031, 6284372, 2915568146, 6233463, 8890768, 0346255, 2386041 ####[facility] (DEFAULT)[address] [place] [address] Anesthesia Noteon 02-27-2024 Anesthesia Note Patient: LIOR JACQUES MAXINE Age: 33 years Sex: FEMALE : 1990 Associated Diagnoses: None Author: Juliano Peterson DO Postoperative Information Post Operative Note: Post Anesthesia Care Unit. Physical Examination VS/Measurements Vital Signs 02/27/2024 12:45 EDT Heart Rate Monitored 104 bpm HI Respiratory Rate 20 br/min Systolic Blood Pressure 108 mmHg Diastolic Blood Pressure 79 mmHg Mean Arterial Pressure, Cuff 89 mmHg SpO2 98 % Oxygen Flow Rate 6 L/min Oxygen Therapy Simple mask General: Alert and oriented. Respiratory: Respirations are non-labored. Cardiovascular: Normal rate, Regular rhythm. Review / Management Condition: Stable. Assessment Anesthetic outcome No anesthetic complications noted. Plan Transfer/ Discharge: Patient can be discharged from PACU when criteria met. Condition good. [Electronically Signed on: 02/27/2024 12:58 EDT] Juliano Peterson DO [Verified on: 02/27/2024 12:58 EDT] Juliano Peterson DO [facility] Anesthesia Note Patient: LIOR JACQUES IN MAXINE Age: 33 years Sex: FEMALE : 1990 Associated Diagnoses: None Author: Juliano Peterson DO Preoperative Information Anesthesia history: Patient history: No difficult intubation, No malignant hyperthermia. Family history: Nausea and vomiting with anesthesia, No malignant hyperthermia. Review of Systems Constitutional: Negative. Eye Ear/Nose/Mouth/Throat Respiratory: No shortness of breath, No cough. Cardiovascular: No chest pain. Gastrointestinal: Nausea, Abdominal pain, s/p gastric sleeve. Endocrine: Negative. Integumentary: Rash, Pt reacted to CT Dye this AM. Rash almost gone. She feels fine now. No respiratory symptoms.. Neurologic: Alert and oriented X4. Health Status Allergies: Allergic Reactions (All) Severity Not Documented Ibuprofen- No reactions were documented. Magnesium- No reactions were documented. Potassium chloride- No reactions were documented. Canceled/Inactive Reactions (All) Severity Not Documented No Known Allergies- No reactions were documented. No known allergies No Known Medication Allergies Current medications: Home Medications (8) Active baclofen 10 mg oral tablet See Instructions Bedside Commode See instructions calcium (as calcium citrate) 250 mg oral tablet [facility] Women's Multi Gummy ondansetron 4 mg oral tablet Probiotic Digestive Aid Gummies Template Non-Formulary Tylenol Problem list (past medical history): All Problems Anxiety / SNOMED CT 20073596 / Confirmed Arthritis of left knee / SNOMED CT 793003502527025 / Confirmed Body mass index 40+ - severely obese / SNOMED CT 0636887894 / Confirmed Genital warts / SNOMED CT 889326567 / Confirmed History of arthroscopy of knee joint / SNOMED CT 1223175886 / Confirmed History of bariatric surgical procedure. / SNOMED CT 2606651354 / Confirmed Gastric bypass status for obesity / SNOMED CT 3692398332 / Confirmed H/O syncope / SNOMED CT 7096981932 / Confirmed Hypokalemia / SNOMED CT 68260210 / Confirmed Hypomagnesemia / SNOMED CT 379326342 / Confirmed Mixed anxiety and depressive disorder / SNOMED CT 973508338 / Confirmed Morbid obesity / SNOMED CT 080310815 / Confirmed Peripheral venous insufficiency / SNOMED CT 85998926 / Confirmed Sacroiliac joint pain / SNOMED CT 374234865 / Confirmed Varicose veins of left lower limb / SNOMED CT 333419140539721 / Confirmed Resolved: / SNOMED CT 410723022 Histories Family History: Clotting disorder Mother Diabetes mellitus type 2 Father Grandmother (Paternal) High blood pressure Father PVD - Peripheral vascular disease Mother GERD - Gastro-esophageal reflux disease Father Procedure history: CT guided nerve block (7838321915) on 01/12/2024 at 33 Years. Comments: 01/12/2024 11:39 [facility] - Cuong Chowdary MA LEFT GENICULAR microphlebectomy in the month of 07/2017 at 27 Years. Comments: 03/19/2019 10:05 [facility] - Margaret Perera [employer] left leg Gastric sleeve (3268382775) in the month of 07/2016 at 26 Years. section (03667036) on 11/10/2014 at 24 Years. section (43599191) on 06/29/2012 at 21 Years. Gastric band (4798774160). Social History Electronic Cigarette/Vaping Assessment Electronic Cigarette Use: Never. Alcohol Assessment Use: Current. 1-2 times per month Tobacco Assessment Never tobacco user Tobacco Use:. Never (less than 100 in lifetime) Tobacco Use:. Substance Abuse Assessment Substance use: Never. Home/Environment Assessment Lives with Children, Significant other. Nutrition/Health Assessment Caffeine intake amount: 8 oz daily coffee. Exercise Assessment Exercise frequency: 3-4 times/week. Sexual Assessment Sexually active: Yes. Number of current partners 1. . Social & Psychosocial Habits Alcohol 03/19/2019 Alcohol Use: Current Frequency: 1-2 times per month Exercise 03/19/2019 Times per week: 3-4 times/week Home/Environment 03/19/2019 Lives with: Children, Significant other Nutrition/Health 03/19/2019 Caffeine intake amount: 8 oz daily coffee Sexual 03/19/2019 Sexually active: Yes Current partners: 1 Substance Use 02/07/2020 Substance use: Never Tobacco 09/05/2021 Smoking tobacco use: Never (less than 100 in l 01/12/2024 Smoking tobacco use: Never tobacco user Electronic Cigarette/Vaping 01/12/2024 Electronic Cigarette Use: Never . Physical Examination VS/Measurements Measurements from flowsheet : Measurements 02/27/2024 9:44 EDT Height 170.18 cm Weight 104.33 kg Body Mass Index 36.02 kg/m2 02/26/2024 22:47 EDT Height 170.18 cm Weight 104.33 kg Weight Dosing 104.330 kg Body Mass Index Measured 36.02 kg/m2 , Vital Signs (last 24 hrs) Last Charted Temp Oral 36.6 DegC (FEB 26 09:44) Heart Rate Peripheral 69 bpm (FEB 26 09:44) Resp Rate 16 br/min (FEB 26 09:44) SBP H 146 mmHg (FEB 26 09:44) DBP 85 mmHg (FEB 26 09:44) Weight 104.33 kg (FEB 26 (more content not included)... Normal [facility] CBC w/ Auto Diffon Erythrocyte distribution width (RBC) [Ratio] 13.3 % Normal 11.5-15.0 [facility] Comment on above: Performed By: #### 1 1705637, 2299187504, 6991050, 5812800067, 5531313, 1250983, 5987589, 2570038 #### [facility] (DEFAULT) [address] [place] [address] 07894 Hematocrit (Bld) [Volume fraction] 42.2 % High 33.7-40.4 [facility] Comment on above: Performed By: #### 1 7719506, 1852127485, 6435319, 5414087717, 6345633, 4244535, 9386640, 3936582 #### [facility] (DEFAULT) [address] [place] [address] 39367 Hemoglobin (Bld) [Mass/Vol] 14.3 g/dL Normal 11.3-15.9 [facility] Comment on above: Performed By: #### 1 9043359, 8357209168, 1212338, 2356171196, 3125168, 2816560, 8905229, 4450512 #### [facility] (DEFAULT) [address] [place] [address] MCH (RBC) [Entitic mass] 30 pg Normal 24-34 [facility] Comment on above: Performed By: #### 1 7973072, 9585957516, 0798046, 4068867966, 2099577, 2663630, 7840529, 5615835 #### [facility] (DEFAULT) [address] [place] [address] 85791 MCHC (RBC) [Mass/Vol] 34 g/dL Normal 26-37 [facility] Comment on above: Performed By: #### 1 1854922, 4863364642, 8705169, 7217613034, 8014643, 3835708, 6929178, 3052952 #### [facility] (DEFAULT) [address] [place] [address] MCV (RBC) [Entitic vol] 90 fL Normal 81-100 [facility] Comment on above: Performed By: #### 1 3392661, 2853707583, 8453147, 9661212739, 6604949, 6433203, 3146526, 5441558 #### [facility] (DEFAULT) [address] [place] [address] Platelet 243 x10 Normal 138-427 [facility] Comment on above: Performed By: #### 1 1699312, 9361854649, 5744104, 4186548285, 8311143, 7756112, 5260216, 8665986 #### [facility] (DEFAULT) [address] [place] [address] Platelet mean volume (Bld) [Entitic vol] 8.0 fL Normal 6.3-10.2 [facility] Comment on above: Performed By: #### 1 2313925, 2481264544, 0174876, 0990453826, 0060680, 7481122, 8253407, 0139197 #### [facility] (DEFAULT) [address] [place] [address] RBC 4.70 x10 Normal 3.70-5.30 [facility] Comment on above: Performed By: #### 1 3469537, 6308923132, 7995978, 5784650056, 5472453, 6693370, 7597393, 3653792 #### [facility] (DEFAULT) [address] [place] [address] WBC 7.7 x10 Normal 3.5-10.5 [facility] Comment on above: Performed By: #### 1 5061706, 1201832095, 2517792, 6248502350, 6563252, 8318266, 6481900, 9675602 #### [facility] (DEFAULT) [address] [place] [address] Man Diff? Auto Invalid Interpretation Code [facility] Comment on above: Performed By: #### 1 7268630, 9028690608, 2203989, 2756527999, 2661403, 4252867, 8705560, 2534410 #### [facility] (DEFAULT) [address] [place] [address] CMP Standardon 02-27-2024 eGFR Non AA >60 Invalid Interpretation Code [facility] Comment on above: Performed By: #### 1 1940140, 3813336204, 6641736, 3053507006, 9823446, 3308690, 5175195, 9394369 #### [facility] (DEFAULT) [address] [place] [address] eGFR AA >60 Invalid Interpretation Code [facility] Comment on above: Performed By: #### 1 9388689, 3527524312, 2473265, 7015174408, 9388587, 6044236, 0918255, 2857357 #### [facility] (DEFAULT) [address] [place] [address] Albumin [Mass/Vol] 4.2 g/dL Normal 3.5-5.0 [facility] Comment on above: Performed By: #### 1 4193394, 4430925695, 6754342, 5143595922, 5683562, 0731354, 0837245, 1687208 #### [facility] (DEFAULT) [address] [place] [address] 42530 Albumin/Globulin [Mass ratio] 1.4 {ratio} Normal 1.4-2.6 [facility] Comment on above: Performed By: #### 1 7784515, 7917304463, 0960423, 5777149755, 4237386, 4948502, 3027603, 7162478 #### [facility] (DEFAULT) [address] [place] [address] Alk Phos 56 IU/L Normal 32-91 [facility] Comment on above: Performed By: #### 1 0894930, 0504643031, 4154856, 7799975029, 3962640, 2517259, 0676186, 0656558 #### [facility] (DEFAULT) [address] [place] [address] ALT [Catalytic activity/Vol] 22.0 U/L Normal 14.0-54.0 [facility] Comment on above: Performed By: #### 1 2246933, 0628945270, 9008332, 0590957708, 8673074, 6483509, 6355467, 8651323 #### [facility] (DEFAULT) [address] [place] [address] 33719 Anion gap [Moles/Vol] 10.5 mmol/L Normal 5.0-19.0 [facility] Comment on above: Performed By: #### 1 9061511, 9380976481, 0291632, 4843917396, 0329056, 4932818, 5370043, 0156960 #### [facility] (DEFAULT) [address] [place] [address] 01862 AST [Catalytic activity/Vol] 26 U/L Normal 15-41 [facility] Comment on above: Performed By: #### 1 5166342, 3367822329, 1557048, 4047761263, 6563543, 6594870, 4267513, 2096739 #### [facility] (DEFAULT) [address] [place] [address] 90014 Bili Total 0.8 mg/dL Normal 0.3-1.2 [facility] Comment on above: Performed By: #### 1 1961507, 5043247473, 6409507, 9376465398, 4056441, 8590380, 4789810, 7727827 #### [facility] (DEFAULT) [address] [place] [address] 77290 Calcium [Mass/Vol] 9.0 mg/dL Normal 8.9-10.3 [facility] Comment on above: Performed By: #### 1 7320248, 4330118406, 8021121, 1096130894, 6454331, 3934825, 0623706, 3054171 #### [facility] (DEFAULT) [address] [place] [address] 83182 Chloride [Moles/Vol] 105 mmol/L Normal 101-111 [facility] Comment on above: Performed By: #### 1 3909002, 9790137703, 7568490, 5114784129, 4012897, 6267045, 5273681, 8193850 #### [facility] (DEFAULT) [address] [place] [address] 84757 CO2 [Moles/Vol] 24 mmol/L Normal 21-32 [facility] Comment on above: Performed By: #### 1 5215577, 4111445135, 5278368, 4576196833, 3300773, 1067645, 1496846, 5129378 #### [facility] (DEFAULT) [address] [place] [address] 69943 Creatinine [Mass/Vol] 0.68 mg/dL Normal 0.60-1.30 [facility] Comment on above: Performed By: #### 1 1227624, 7365293495, 2250214, 1357748683, 5821741, 4000944, 8265815, 9109639 #### [facility] (DEFAULT) [address] [place] [address] 83828 Globulin (S) [Mass/Vol] 3.0 g/dL Normal 1.5-4.3 [facility] Comment on above: Performed By: #### 1 1950158, 2750532858, 7314821, 1416835663, 5678084, 6411969, 1477828, 9642884 #### [facility] (DEFAULT) [address] [place] [address] 54228 Glucose [Mass/Vol] 93.0 mg/dL Normal 74.0-118.0 [facility] Comment on above: Performed By: #### 1 8854892, 9201931113, 9964372, 7077286797, 2525454, 7703641, 5808313, 7945617 #### [facility] (DEFAULT) [address] [place] [address] 57195 Osmolality 270 mOsm/L Invalid Interpretation Code [facility] Comment on above: Performed By: #### 1 0339087, 6117191154, 7680922, 4334668765, 9825549, 7525254, 6520447, 4014063 #### [facility] (DEFAULT) [address] [place] [address] 87186 Potassium [Moles/Vol] 3.5 mmol/L Low 3.6-5.1 [facility] Comment on above: Performed By: #### 1 4015009, 9329977356, 2452818, 2630983959, 2126959, 7676775, 9223377, 3252094 #### [facility] (DEFAULT) [address] [place] [address] 26975 Protein [Mass/Vol] 7.2 g/dL Normal 6.5-8.1 [facility] Comment on above: Performed By: #### 1 5325815, 3692897327, 0712761, 8605437834, 2515204, 9147848, 3637732, 4401107 #### [facility] (DEFAULT) [address] [place] [address] 03220 Sodium [Moles/Vol] 136.0 mmol/L Normal 136.0-144 . 0 [facility] Comment on above: Performed By: #### 1 5002800, 8048254430, 4895496, 0149992287, 6376134, 2996651, 7228973, 9156260 #### [facility] (DEFAULT) [address] [place] [address] 69977 Urea nitrogen [Mass/Vol] 9 mg/dL Normal 8-26 [facility] Comment on above: Performed By: #### 1 7457970, 2914834420, 5711619, 1585475979, 9615655, 6459672, 3111879, 1901738 #### [facility] (DEFAULT) [address] [place] [address] Urea nitrogen/Creatinine [Mass ratio] 13.2 mg/mg Normal 4.6-16.2 [facility] Comment on above: Performed By: #### 1 9283165, 0980038093, 6261376, 2945737294, 9622413, 4350835, 8463835, 6316638 #### [facility] (DEFAULT) [address] [place] [address] CT PE Chest/Abdomen/Pelvis w / Contraston 02-27-2024 CT PE Chest/Abdomen/Pelvis w/ Contrast EXAM: CT PE Chest/Abdomen/Pelvis w/ Contrast HISTORY: epigastric pain into chest and back. hx gastric sleeve COMPARISON: None. TECHNIQUE: CT angiography of the pulmonary arteries and CT of abdomen and pelvis following the administration of intravenous contrast. Coronal and sagittal MIP (maximum intensity projection) images were performed. Dose reduction techniques were achieved by using automated exposure control and/or adjustment of mA and/or kV according to patient size and/or use of iterative reconstruction technique. FINDINGS: Evaluation of the lobar, interlobar, segmental and subsegmental pulmonary arteries is limited due to suboptimal contrast bolus. TUBES AND IMPLANTS: None. CHEST: CHEST WALL AND LOWER NECK: Unremarkable. MEDIASTINUM AND LENORE: No hematoma. No enlarged lymph nodes by CT size criteria. AORTA: No aneurysm HEART: No evidence of right heart strain. PULMONARY ARTERIES: No large saddle embolus. CORONARY ARTERIES: No coronary artery calcifications. LUNG AND AIRWAYS: Unremarkable. PLEURA: Unremarkable. BONES: No suspicious lesions. ABDOMEN and PELVIS ABDOMINAL WALL AND SOFT TISSUES: Unremarkable. BONES: No suspicious lesions. ARTERIES: Unremarkable. VEINS: Unremarkable. LYMPH NODES: Unremarkable. PERITONEUM/ RETROPERITONEUM: Trace free pelvic fluid. BOWEL: Postsurgical changes of gastric sleeve procedure. No obstruction APPENDIX: Unremarkable LIVER: Unremarkable. GALLBLADDER: Multiple gallstones are identified. Suggestion of mild wall thickening or trace pericholecystic fluid BILE DUCTS: The common bile duct is dilated measuring up to 1 centimeter. The radiopaque density is seen within the distal common bile duct measuring approximately 5 millimeters SPLEEN: Unremarkable. PANCREAS: Unremarkable. ADRENALS: Unremarkable. KIDNEYS/ URETERS: No stones or hydronephrosis. REPRODUCTIVE ORGANS: Unremarkable URINARY BLADDER: Unremarkable. IMPRESSION: 1. No evidence of large saddle pulmonary embolism. Limited evaluation of the lobar, interlobar, segmental and subsegmental pulmonary arteries due to suboptimal contrast bolus. No evidence of right heart strain. 2. Cholelithiasis with suggestion of mild wall thickening with trace pericholecystic fluid. Right upper quadrant ultrasound for further evaluation as clinically warranted. 3. Dilatation of the common bile duct to 1 centimeter with radiopaque density seen in the distal common bile duct measuring 5 millimeters, this is concerning for choledocholithiasis. 4. Trace free pelvic fluid, likely physiologic. Final Dictated by: Polina Palacio MD Dictated DT/TM: 02/27/24 2:17 Signed (Electronic Signature): Polina Palacio MD 02/27/24 2:37 am Technologist: CB Thomas [facility] ED Clinical Summaryon 2023 ED Clinical Summary [facility] - Emergency Department [address] [place], [place] [id number] ED Clinical Summary PERSON INFORMATION Name: LUCILA JACQUES Age: 33 Years Sex: FEMALE : 1990 MRN: Acct#: Visit Reason: Abdominal pain; ACUTE CHOLECYSTITIS Arrival: 02/26/2024 22:40:28 Discharge: LOS: 000 09:38 Check In: 02/26/2024 22:40:28 Checkout:02/27/2024 08:18:49 Address: [address] [place] [address] PCP: Provider, None PROVIDER INFORMATION Provider Role Assigned Unassigned Tamika Alvarenga RN ED Nurse 02/26/2024 23:12:50 Param Michelle DO ED Provider 02/26/2024 23:38:41 Abdulkadir Maradiaga RAG CUTTING MACHINE TENDER Nurse 02/27/2024 07:25:13 VITALS INFORMATION Vital Sign Triage Latest Temperature Tympanic Temperature Temporal Artery 36.8 DegC Pulse Rate 74 bpm 71 bpm O2 Sat 100 % 99 % Respiratory Rate 16 br/min 18 br/min Blood Pressure /82 mmHg /82 mmHg MEDICAL INFORMATION Medications Given: Medication Dose Route Sodium Chloride 0.9% intravenous solution 1,000 mL 1000 mL Initial Volume 1000 mL/hr IV Left Antecubital Fossa ondansetron 4 mg IV Push pantoprazole (Protonix) 40 mg IV Push morphine (Morphine IV push) 4 mg IV Push iohexol (Omnipaque 350 100 ml) 350 mg IV Push methylPREDNISolone (methylPREDNISolone 80 mg injection) 125 mg IV Push ketorolac 30 mg IV Push ondansetron 4 mg IV Push diphenhydrAMINE (Benadryl) 25 mg IV Push HYDROmorphone (Dilaudid) 0.5 mg IV Push ondansetron 4 mg IV Push HYDROmorphone (Dilaudid) 0.5 mg IV Push ondansetron 4 mg IV Push Allergy Information: Magnesium; potassium chloride; ibuprofen PHYSICIAN DOCUMENTATION Patient: LUCILA JACQUES Age: 33 years Sex: FEMALE : 1990 Associated Diagnoses: Biliary colic; Acute cholecystitis Author: Param Michelle DO Basic Information Additional information: Chief Complaint from Nursing Triage Note : Chief Complaint 02/26/2024 22:47 EDT Chief Complaint Pt states she has been having upper mid abd pain for 48 hrs . History of Present Illness 33-year-old female to the emergency department with 2-day history of epigastric discomfort. Patient states pain has been off and on for 2 days but also has had similar to but less severe episodes in the past. Patient states she has had very little p.o. intake over the last 2 days as eating makes it worse. Denies fever or chills but she has had nausea and vomiting. No hematemesis. No changes to bowel movements no urinary symptoms. Patient states discomfort is radiating up into her chest and also into her back. No radicular symptoms. Patient with a history of gastric sleeve procedure. No recent travel no calf pain or swelling. Pain is not pleuritic Review of Systems Constitutional symptoms: Negative except as documented in HPI. Skin symptoms: Negative except as documented in HPI. Eye symptoms: Negative except as documented in HPI. ENMT symptoms: Negative except as documented in HPI. Respiratory symptoms: Negative except as documented in HPI. Cardiovascular symptoms: Chest pain, no palpitations, no tachycardia. Gastrointestinal symptoms: Abdominal pain, nausea, vomiting, no diarrhea, no constipation. Genitourinary symptoms: Negative except as documented in HPI. Musculoskeletal symptoms: Back pain. Neurologic symptoms: Negative except as documented in HPI. Health Status Allergies: Allergic Reactions (Selected) Severity Not Documented Ibuprofen- No reactions were documented. Magnesium- No reactions were documented. Potassium chloride- No reactions were documented.. Medications: (Selected) Inpatient Medications Ordered Dilaudid: 0.5 mg = 0.5 mL, IV Push, Once Sodium Chloride 0.9% intravenous solution 1,000 mL: 1,000 mL/hr, IV Sodium Chloride 0.9% intravenous solution 1,000 mL: 1,000 mL/hr, IV Sodium Chloride 0.9% intravenous solution 500 mL: 20 mL/hr, IV Prescriptions Prescribed baclofen 10 mg oral tablet: See Instructions, Take 1/2-1 tab BID PRN, 60 tab(s), 0 Refill(s) Documented Medications Documented Huber Women's Multi Gummy: 0 Refill(s) Probiotic Digestive Aid Gummies: 0 Refill(s) Template Non-Formulary: Keto ACV gummies, 0 Refill(s) Tylenol: 0 Refill(s) calcium (as calcium citrate) 250 mg oral tablet: 0 Refill(s). Past Medical/ Family/ Social History Medical history: No active or resolved past medical history items have been selected or recorded.. Surgical history: CT guided nerve block ([id number]) on 01/12/2024 at 33 Years. Comments: 01/12/2024 11:39 EDT - Cuong Chowdary MA LEFT GENICULAR microphlebectomy in the month of 07/2017 at 27 Years. 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 section ([id number]) on 11/10/2014 at 24 Years. section ([id number]) on 06/29/2012 at 21 Years. Gastric band ([id number]).. Family history: Clotting disorder Mother Diabetes mellitus type 2 (more content not included)... [facility] ED Note - Physicianon 2023 ED Note - Physician Patient: LIOR JACQUES Age: 33 years Sex: FEMALE : 1990 Associated Diagnoses: Biliary colic; Acute cholecystitis Author: Param Michelle DO Basic Information Additional information: Chief Complaint from Nursing Triage Note : Chief Complaint 02/26/2024 22:47 EDT Chief Complaint Pt states she has been having upper mid abd pain for 48 hrs . History of Present Illness 33-year-old female to the emergency department with 2-day history of epigastric discomfort. Patient states pain has been off and on for 2 days but also has had similar to but less severe episodes in the past. Patient states she has had very little p.o. intake over the last 2 days as eating makes it worse. Denies fever or chills but she has had nausea and vomiting. No hematemesis. No changes to bowel movements no urinary symptoms. Patient states discomfort is radiating up into her chest and also into her back. No radicular symptoms. Patient with a history of gastric sleeve procedure. No recent travel no calf pain or swelling. Pain is not pleuritic Review of Systems Constitutional symptoms: Negative except as documented in HPI. Skin symptoms: Negative except as documented in HPI. Eye symptoms: Negative except as documented in HPI. ENMT symptoms: Negative except as documented in HPI. Respiratory symptoms: Negative except as documented in HPI. Cardiovascular symptoms: Chest pain, no palpitations, no tachycardia. Gastrointestinal symptoms: Abdominal pain, nausea, vomiting, no diarrhea, no constipation. Genitourinary symptoms: Negative except as documented in HPI. Musculoskeletal symptoms: Back pain. Neurologic symptoms: Negative except as documented in HPI. Health Status Allergies: Allergic Reactions (Selected) Severity Not Documented Ibuprofen- No reactions were documented. Magnesium- No reactions were documented. Potassium chloride- No reactions were documented.. Medications: (Selected) Inpatient Medications Ordered Dilaudid: 0.5 mg = 0.5 mL, IV Push, Once Sodium Chloride 0.9% intravenous solution 1,000 mL: 1,000 mL/hr, IV Sodium Chloride 0.9% intravenous solution 1,000 mL: 1,000 mL/hr, IV Sodium Chloride 0.9% intravenous solution 500 mL: 20 mL/hr, IV Prescriptions Prescribed baclofen 10 mg oral tablet: See Instructions, Take 1/2-1 tab BID PRN, 60 tab(s), 0 Refill(s) Documented Medications Documented Huber Women's Multi Gummy: 0 Refill(s) Probiotic Digestive Aid Gummies: 0 Refill(s) Template Non-Formulary: Keto ACV gummies, 0 Refill(s) Tylenol: 0 Refill(s) calcium (as calcium citrate) 250 mg oral tablet: 0 Refill(s). Past Medical/ Family/ Social History Medical history: No active or resolved past medical history items have been selected or recorded.. Surgical history: CT guided nerve block ([id number]) on 01/12/2024 at 33 Years. Comments: 01/12/2024 11:39 EDT - Cuong Chowdary MA LEFT GENICULAR microphlebectomy in the month of 07/2017 at 27 Years. 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 section ([id number]) on 11/10/2014 at 24 Years. section ([id number]) on 06/29/2012 at 21 Years. Gastric band ([id number]).. Family history: Clotting disorder Mother Diabetes mellitus type 2 Father Grandmother (Paternal) High blood pressure Father PVD - Peripheral vascular disease Mother GERD - Gastro-esophageal reflux disease Father . Social history: Social & Psychosocial Habits Alcohol 03/19/2019 Alcohol Use: Current Frequency: 1-2 times per month Exercise 03/19/2019 Times per week: 3-4 times/week Home/Environment 03/19/2019 Lives with: Children, Significant other Nutrition/Health 03/19/2019 Caffeine intake amount: 8 oz daily coffee Sexual 03/19/2019 Sexually active: Yes Current partners: 1 Substance Use 02/07/2020 Substance use: Never Tobacco 09/05/2021 Smoking tobacco use: Never (less than 100 in l 01/12/2024 Smoking tobacco use: Never tobacco user Electronic Cigarette/Vaping 01/12/2024 Electronic Cigarette Use: Never . Problem list: Active Problems (2) Gastric bypass status for obesity H/O syncope . Physical Examination Vital Signs Vital Signs 02/26/2024 22:47 EDT Temperature Temporal Artery 36.8 DegC Peripheral Pulse Rate 74 bpm Respiratory Rate 16 br/min Systolic Blood Pressure 138 mmHg Diastolic Blood Pressure 82 mmHg SpO2 100 % Oxygen Therapy Room air . Measurements 02/26/2024 22:47 EDT Height 170.18 cm Weight 104.33 kg Weight Dosing 104.330 kg Body Mass Index Measured 36.02 kg/m2 . General: Alert, Patient appears uncomfortable.. Skin: Warm, dry. Head: Normocephalic, atraumatic. Neck: Supple. Eye: Pupils are equal, round and reactive to light, normal conjunctiva. Ears, nose, mouth and throat: Oral mucosa moist. Cardiovascular: Regular rate and rhythm, No murmur. Respiratory: Lungs ar (more content not included)... [facility] ED Note-Nursingon 02-27-2024 ED Note-Nursing Pt arrives to ED alvaro m 7 complaining of abdominal pain. Pt states it has been going on for a few days, Pt has history of gastric bypass done at a [facility] facility. Pt denies any other complaints. [facility] ED Patient Education Noteon 02-27-2024 ED Patient Education Note Education Materials [facility] ED Patient Summaryon 024 ED Patient Summary [facility] - Emergency Department [address] [place] [address] PATIENT DISCHARGE INSTRUCTIONS Patient Information Name: LUCILA JACQUES Age: 33 Years Date of : 1990 Reason For Visit: Abdominal pain; ACUTE CHOLECYSTITIS Arrival Time: 02/26/2024 22:40:28 Primary Care Physician: Provider, None Attending Physician: Maurizio Mast MD Comment: Visit Diagnosis: Diagnoses This Visit Abdominal pain ([id number]) Acute cholecystitis (K81.0) Biliary colic (K80.50) The Pharmacy at [facility] is open Monday through Monday from 9A to 6P and Monday and Monday from 9A to 5P Prescription Information: If you have been given a prescription for narcotics, seek immediate medical attention if you have any difficulty breathing or any sudden status changes such as confusion and sleepiness. If you or anyone you know is experiencing suicidal thoughts, mental health, alcohol and/or drug addiction problems; contact the [facility] 17/04 Crisis Hotline -Text 4HOPE to 811779. If you received any narcotics, sedation, or any other medication that causes drowsiness for the next 24 hours, unless otherwise directed: ? Do not drive a car. ? Do not operate machinery such as power tools, lawn mowers, drills, sewing machines, or stoves ? Avoid alcoholic beverages and drugs for allergies, nerves, or sleep ? Do not make important personal or business decisions or sign any legal documents Medication Information: The exam and treatment you received today in the [facility] Emergency Department were for an urgent problem and are not intended as complete care. It is important for you to follow up with a doctor, nurse practitioner, or physician?s bankruptcy legal assistant for ongoing care. If your symptoms become worse or you do not improve as expected and you are unable to reach your usual health care provider, you should return to the Emergency Department, we are available 24 hours a day. For those patients who have received Radiology results, the interpretation of your X-ray as given to you by our Emergency Department physician is only a preliminary report. The Radiologist will review your films and if there is a change in the diagnosis you will be notified by phone. Please make sure you have provided a working phone number so we can reach you if necessary. In the event that you had a lab culture while you were a patient in the Emergency Department, you will be notified by phone if there is a need to change your antibiotic. Please make sure you have provided a working phone number so we can reach you if necessary. [facility] Emergency Department has provided you with a complete list of medications post discharge. Please inform your volunteer patient representative/provider of your visit and for further instruction on these medications. Any specific questions regarding your chronic medications and dosages should be discussed with your primary care physician(s) and/or pharmacist. Medications to Continue That Have Not Changed Other Medications acetaminophen (Tylenol) bacillus coagulans (Probiotic Digestive Aid Gummies) baclofen (baclofen 10 mg oral tablet) Take 1/2-1 tab BID PRN. Refills: 0. calcium citrate (calcium (as calcium citrate) 250 mg oral tablet) multivitamin with minerals (Huber Women's Multi Gummy) Template Non-Formulary Keto ACV gummies. Visit Information Allergies: Substance Reaction Symptoms Type Comments ibuprofen Drug Magnesium Drug IV form potassium chloride Drug Vital Signs: Vitals and Measurements this Visit (last charted value for your 02/26/2024 visit) Vital Signs This Visit Temperature Temporal Artery: 36.8 DegC Peripheral Pulse Rate: 71 bpm Respiratory Rate: 18 br/min Systolic Blood Pressure: 128 mmHg Diastolic Blood Pressure: 79 mmHg SpO2: 99 % Oxygen Therapy: Room air Measurements This Visit Height/Length Measured: 170.18 cm Weight Measured: 104.33 kg Weight Dosin.330 kg Body Mass Index: 36.02 kg/m2 Problems List: Problem Onset Comments Gastric bypass status for obesity H/O syncope Patient Education Viruses or Bacteria What?s got you sick? Antibiotics only treat bacterial infections. Viral illnesses cannot be treated with antibiotics. When an antibiotic is not prescribed, ask your healthcare professional for tips on how to relieve symptoms and feel better. Usual Cause Illness Viruses Bacteria Antibiotic Needed Cold/Runny Nose ? NO Bronchitis/Chest Cold (in otherwise healthy children and adults) ? NO Whooping Cough ? Yes Flu ? NO Strep Throat ? Yes Sore Throat (except strep) ? NO Fluid in the middle ear (otitis media with effusion) ? NO Urinary Tract Infection ? Yes Antibiotics Aren?t Always the Answer www.cdc.gov/getsmart GET SMART Know When Antibiotics Work U.S. Department of Health and Human Services Centers for D (more content not included)... Normal [facility] Inpatient Patient Summaryon 02-27-2024 [place] [address] Patient Discharge Instructions Name: LUCILA JACQUES : 1990 Patient Address: [address] [place] [address] Primary Care Provider: Name: Provider, None Phone: After you are discharged if you find you have any questions, please, call [phone] ext [phone] to speak to a nurse. The Pharmacy at [facility] is open Monday through Monday from 9A to 6P and Monday and Monday from 9A to 5P Discharge Diagnosis: Acute cholecystitis; Biliary colic Prescription Information: If you have been given a prescription for narcotics, seek immediate medical attention if you have any difficulty breathing or any sudden status changes such as confusion and sleepiness. If you or anyone you know is experiencing suicidal thoughts, mental health, alcohol and/or drug addiction problems; contact the [facility] 17/04 Crisis Hotline -Text 4HOPE to 538760. If you received any narcotics, sedation, or any other medication that causes drowsiness for the next 24 hours, unless otherwise directed: ? Do not drive a car. ? Do not operate machinery such as power tools, lawn mowers, drills, sewing machines, or stoves ? Avoid alcoholic beverages and drugs for allergies, nerves, or sleep ? Do not make important personal or business decisions or sign any legal documents [facility] would like to thank you for allowing us to assist you with your healthcare needs. The following includes patient education materials and information regarding your injury/illness. LUCILA JACQUES has been given the following list of follow-up instructions, prescriptions, and patient education materials: Follow-up Instructions With: Address: When: Peter oBoth [address] [place] [address], [facility] [place] [address] Business (1) In 2 weeks 03/12/2024 Comments: Call for follow up appointment With: Address: When: None Provider [address] [place] [address] Medications During the course of your visit, your medication list was updated with the most current information. The details of those changes are reflected below: New Medications [id number], [address], [place] [id number], [phone] acetaminophen-hydrocodone (acetaminophen-hydrocodone 325 mg-5 mg oral tablet) 1 tab(s) Oral (given by mouth) every 6 hours as needed Pain - Moderate for 5 Days. Refills: 0. ondansetron (ondansetron 4 mg oral tablet) 1 tab(s) Oral (given by mouth) every 8 hours as needed nausea/vomiting for 5 Days. 6 EA, 0 Refill(s), take 1 tablet by mouth every 12 hours if needed for nausea and vomiting. Refills: 0. scopolamine (scopolamine 1 mg/72 hr transdermal film, extended release) 1 patch(es) Transdermal every 72 hours. Refills: 0. Medications to Continue That Have Not Changed Other Medications acetaminophen (Tylenol) bacillus coagulans (Probiotic Digestive Aid Gummies) baclofen (baclofen 10 mg oral tablet) Take 1/2-1 tab BID PRN. Refills: 0. calcium citrate (calcium (as calcium citrate) 250 mg oral tablet) multivitamin with minerals (Huber Women's Multi Gummy) Template Non-Formulary Keto ACV gummies. It is important to always keep an active list of medications available so that you can share with other providers and manage your medications appropriately. As an additional courtesy, we are also providing you with your final active medications list that you can keep with you. acetaminophen (Tylenol) acetaminophen-hydrocodone (acetaminophen-hydrocodone 325 mg-5 mg oral tablet) 1 tab(s) Oral (given by mouth) every 6 hours as needed Pain - Moderate for 5 Days. Refills: 0. bacillus coagulans (Probiotic Digestive Aid Gummies) baclofen (baclofen 10 mg oral tablet) Take 1/2-1 tab BID PRN. Refills: 0. calcium citrate (calcium (as calcium citrate) 250 mg oral tablet) multivitamin with minerals (Huber Women's Multi Gummy) ondansetron (ondansetron 4 mg oral tablet) 1 tab(s) Oral (given by mouth) every 8 hours as needed nausea/vomiting for 5 Days. 6 EA, 0 Refill(s), take 1 tablet by mouth every 12 hours if needed for nausea and vomiting. Refills: 0., Responsible Provider: GHAZAL CONTRERAS scopolamine (scopolamine 1 mg/72 hr transdermal film, extended release) 1 patch(es) Transdermal every 72 hours. Refills: 0. Template Non-Formulary Keto ACV gummies. Take only the medications listed above. Contact your doctor prior to taking any medications not on this list. Medication leaflets, if any, will display below Diet & Activity Patient Activity Level: Patient Diet: Regular Patient Activity Restrictions: Patient education materials, if any, will display below Laparoscopic cholecystectomy, Care After The following information offers guidance on how to care for yourself after your procedure. Your health care provider may also give you more specific instructions. If you have problems or questions, (more content not included)... [facility] 02-27-2024 L Specimen: [id number] Received: 02/28/24 Status: MICHAEL Young Num: [id number] Spec Type: Surgical Subm Dr: Peter Booth MD Tissues: A Gallbladder (GALLBLADDER) Procedures: HE/2, Gross/Micro L3 Age/ Patient Sex Location Account Attending Physician Lucila Jacques 33/F [facility] [id number] Maurizio Mast MD SPEC NUM: [id number] RECD: 02/28/24 STATUS: MICHAEL YOUNG NUM: [id number] NIELS: 02/27/[address]: Peter Booth MD ENTERED: 02/28/[address] [facility] [address]: Dangelo Casanova SPEC TYPE: Surgical DEPT: MAG WARE ORDERED: HE/2, Gross/Micro L3 ORDERED: HE/2, Gross/Micro L3 Pathological Diagnosis Gallbladder, cholecystectomy: Chronic cholecystitis and cholelithiasis. Clinical Information Acute cholecystitis Gross Description Received in formalin, labeled with the patient's name, date of and gallbladder is an intact gallbladder measuring 7.8 cm in length by 2.9 cm in diameter. The serosal surface is edwards-purple, smooth and glistening. The adjacent hepatic surface is edwards and roughened. The clamped cystic duct measures 0.2 cm in diameter. 0.6 cm from the cystic duct is a 1.1 x 0.6 x 0.4 cm edwards-pink lymph node which is trisected revealing a homogenous edwards cut surface. Opening into the specimen reveals granular and fibrous pale-edwards mucosa expelling viscous edwards-green bile and containing numerous multifaceted edwards-brown stones within the central lumen and obstructing the cystic duct ranging from 2.1 to 0.3 cm. No mucosal polyps, discrete masses or lesions are present. The gallbladder wall measures 0.1 cm in thickness. House Calls Nurse sections are submitted in A1 (gallbladder) and A2 (lymph node). CPT Codes 69705 Specimen: [id number] Received: 02/28/24 Status: MICHAEL Young Num: [id number] Spec Type: Surgical Subm Dr: Peter Booth MD Tissues: A Gallbladder (GALLBLADDER) Procedures: HE/2, Gross/Micro L3 Patient: Lucila Jacques [id number] (Continued) Signed (signature on file) Domenic Hopper MD 02/29/24 3904 Normal [facility] Lactic Acidon 02-27-2024 Lactic Acid 15.3 mg/dL Normal 4.5-19.8 [facility] Comment on above: Performed By: #### [id number] ####[facility] (DEFAULT)[address] [place] [id number] Lipaseon 02-27-2024 Lipase Level 30.0 IU/L Normal 22.0-51.0 [facility] Comment on above: Performed By: #### 1 [id number] ####[facility] (DEFAULT)[address] [place] [address] MAGR Intraoperative Recordon 02-27-2024 MAGR Intraoperative Record MAGR Intra-Op Record Summary Primary Physician: Peter Booth MD Finalized Date/Time: 02/27/24 12:38:12 Pt. Name: LUCILA JACQUES MAXINE /Sex: 1990 FEMALE Med Rec #: [id number] Physician: Param Mihcelle DO Financial #: [id number] Pt. Type: O Room/Bed: [facility] Admit/Disch: 02/26/24 22:40:28 - Institution: Case Times MAGR Entry 1 Patient In Room Time 02/27/24 11:01:00 Out Room Time 02/27/24 12:36:00 Anesthesia Start Time 02/27/24 11:00:00 Stop Time 02/27/24 12:35:00 Surgery Start Time 02/27/24 11:34:00 Stop Time 02/27/24 12:30:00 Last Modified By: Bre Spaulding RN 02/27/24 12:38:09 Case Attendance MAGR Entry 1 Entry 2 Entry 3 Case Attendee Peter Booth MD, David DO Myers, Debra RN Role Performed Surgeon - Primary Anesthesiologist of Plant Operations Engineer Record Time In 02/27/24 11:31:00 02/27/24 11:01:00 02/27/24 11:01:00 Time Out 02/27/24 12:19:00 02/27/24 12:36:00 02/27/24 12:36:00 Procedure Cholecystectomy Cholecystectomy Cholecystectomy Laparoscopic Laparoscopic Laparoscopic Last Modified By: Bre Spaulding RN, Debra RN Myers, Debra RN 02/27/24 12:35:49 02/27/24 12:35:49 02/27/24 12:35:49 Entry 4 Entry 5 Entry 6 Case Attendee Dina Malcolm CST, Will Ortiz CST, CST, CST CSFA Role Performed Product Development Consultant Product Development Consultant Scrub Personnel Time In 02/27/24 11:01:00 02/27/24 11:01:00 02/27/24 11:01:00 Time Out 02/27/24 12:36:00 02/27/24 12:36:00 02/27/24 12:36:00 Procedure Cholecystectomy Cholecystectomy Cholecystectomy Laparoscopic Laparoscopic Laparoscopic Last Modified By: Bre Spaulding RN, Debra RN Myers, Debra RN 02/27/24 12:35:49 02/27/24 12:35:49 02/27/24 12:35:49 Surgical Procedures MAGR Pre-Care Text: A.20 Verifies operative procedure, surgical site, and laterality Im.150 Develops individualized plan of care Entry 1 Procedure Cholecystectomy Primary Procedure Yes Laparoscopic Primary Surgeon Peter Booth MD Surgeon Comment LAP CORBY Start 02/27/24 11:34:00 Stop 02/27/24 12:30:00 Anesthesia Type General Surgical Service General Wound Class Clean-Contaminated Technique Details Closure Technique Primary Entire procedure Yes was performed via laparoscope or robotic assistance Last Modified By: Bre Spaulding RN 02/27/24 12:36:04 Post-Care Text: O.730 The patient's care is consistent with the individualized perioperative plan of care General Case Data MAGR Pre-Care Text: A.350.1 Classifies surgical wound Entry 1 Case Information OR MAGR OR 05 Case Level Level 4 Wound Class Clean-Contaminated Specialty General ASA Class 2E Diagnosis Preop Diagnosis ACUTE CHOLECYSTITIS Postop Same As Preop Yes Postop Diagnosis ACUTE CHOLECYSTITIS Blunt or No Is the procedure Yes penetrating injury considered occured prior to Emergent/Urgent? the start of the procedure: Last Modified By: Bre Spaulding RN 02/27/24 11:26:15 Post-Care Text: O.760 Patient receives consistent and comparable care regardless of the setting Time Out MAGR Entry 1 Procedure(s) Cholecystectomy Laparoscopic Time Out Checklist Verifications Team Introductions Yes Confirmed Identity, Yes Completed Procedure, Incision Site, and Consent(s) Presence of Yes Site Verification, Yes Necessary Site Marking, Site Procedural Marking Equipment, Devices, Alternative, and/or and Implants Site Marking Verified Exception in Accordance with Facility Policy Anesthesia Review Antibiotic Received Yes All Anesthesia Yes Within an Concerns Addressed Appropriate Time Interval Prior to Surgical Incision Surgeon Review Anticipated Blood Yes Expected Case Yes Loss Risk Addressed Duration Addressed Critical and Yes Non-Routine Steps to be Performed Addressed Nurse Review Equipment Yes Fire Risk Yes Checks/Concerns Assessment Addressed Completed and Interventions Performed Diagnostic and Yes Sterilization Yes Radiological Test Concerns Addressed Results Displayed are Appropriate and Labeled Other Concerns Yes Addressed Time Out Peter Booth MD, Time Out Time 02/27/24 11:33:00 Participants Juliano Peterson DO, Bre Spaulding RN, Dina Malcolm SPANISH LITERATURE PROFESSOR, Tru SPANISH LITERATURE PROFESSOR, Marie LEBLANC CSFA, Will Miller SPANISH LITERATURE PROFESSOR Last Modified By: Bre Spaulding RN 02/27/24 11:34:44 Patient Positioning MAGR Pre-Care Text: A.280 Identifies baseline musculoskeletal status Im.40 Positions the patient Im.80 Applies safety devices Entry 1 Procedure Cholecystectomy Body Position Supine Laparoscopic Left Arm Position Extended on padded arm Right Arm Position Extended on padded arm board board Left Leg Position Extended Right Leg Position Extended Feet Uncrossed? Yes Press Points Checked Yes Positioning Device Arm Boards, Arm Strap, Outcome Met (O.80) Yes Pillow, Safety Strap Last Modified By: Bre Spaulding RN 02/27/24 11:12:46 Post-Care Text: E.290 Eval (more content not included)... [facility] MAGR PACU Recordon MAGR PACU Record MAGR PACU Record [facility] Primary Physician: Peter Booth MD Finalized Date/Time: 02/27/24 14:07:36 Pt. Name: LUCILA JACQUES/Sex: 1990 FEMALE Med Rec #: [id number] Physician: Param Michelle DO Financial #: [id number] Pt. Type: O Room/Bed: [facility]/ Admit/Disch: 02/26/24 22:40:28 - Institution: PACU Case Times MAGR Entry 1 In PACU I 02/27/24 12:38:00 Discharge from PACU 02/27/24 13:40:00 I Last Modified By: Yarelis Schmitt RN 02/27/24 14:07:32 Finalized By: Yarelis Schmitt RN Document Signatures Signed By: Yarelis Schmitt RN 02/27/24 14:07 [facility] Magnesiumon 02-27-2024 Magnesium [Mass/Vol] 1.86 mg/dL Normal 1.80-2.50 [facility] Comment on above: Performed By: #### 1 [id number], [id number], [id number], [id number], [id number], [id number], [id number], [id number] ####[facility] (DEFAULT)[address] [place] [address] Nutrition Noteon 02-27-2024 Nutrition Note Chart reviewed; 33 y o female diagnosed with s/p lap choly; diet order full liquids; patient with history of gastric bypass surgery ; no difficulties with chew/swallow identified on admit; encourage increase po as rachael; rec advance as rachael to regular soft diet; will monitor po with diet advance, wt/labs for changes; follow, assist prn. ts [facility] PTon 02-27-2024 INR Coag (PPP) [Relative time] 0.98 {INR} Normal 0.91-1.11 [facility] Comment on above: Performed By: #### 1 [id number], [id number], [id number], [id number], [id number], 6205127, 5944307, 0129131 ####[facility] (DEFAULT)[address] [place] [address] PT 10.2 second(s) Normal 9.7-11.8 [facility] Comment on above: Performed By: #### 1 [id number], [id number], [id number], [id number], [id number], 9140701, 4072135, 8044121 ####[facility] (DEFAULT)[address] [place] [address] Test Serum 1on Preg Serum Internal Control OK [facility] Comment on above: Performed By: #### 3 [id number] ####[facility] (DEFAULT)[address] [place] [address] Test Serum Qual Negative [facility] Comment on above: Performed By: #### 3 [id number] ####[facility] (DEFAULT)[address] [place] [address] TnI HSon 02-27-2024 Troponin I High Sensitivity 3.0 pg/mL Normal <=15.0 [facility] Comment on above: Performed By: #### 1 [id number], [id number], [id number], [id number], 1911455, 2317785, 2704268, 4422972 ####[facility] (DEFAULT)[address] [place] [address] UA w Culture if Ind Standard on 02-27-2024 Breakpoint UA [facility] Comment on above: Performed By: #### 1 [id number] ####[facility] (DEFAULT)[address] [place] [address] Color (U) Yellow [facility] Comment on above: Performed By: #### 1 [id number] ####[facility] (DEFAULT)[address] [place] [address] Culture? Not Indicated Invalid Interpretation Code [facility] Comment on above: Result Comment: Resu lt created by rule GL_MAGR_ADD_UA_CULT1 Performed By: #### 1 [id number] ####[facility] (DEFAULT)[address] [place] [address] Glucose (U) [Mass/Vol] Negative [facility] Comment on above: Performed By: #### 1 [id number] ####[facility] (DEFAULT)[address] [place] [address] Ketones Ql (U) 40 [facility] Comment on above: Performed By: #### 1 [id number] ####[facility] (DEFAULT)[address] [place] [address] Micro? Not Indicated Invalid Interpretation Code [facility] Comment on above: Result Comment: Resu lt created by rule GL_MAGR_ADD_UA_MICRO Performed By: #### 1 [id number] ####[facility] (DEFAULT)[address] [place] [address] UA Bilirubin Negative [facility] Comment on above: Performed By: #### 1 [id number] ####[facility] (DEFAULT)[address] [place] [address] UA Blood Negative Normal NEGATIVE [facility] Comment on above: Performed By: #### 1 [id number] ####[facility] (DEFAULT)[address] [place] [address] UA Clarity CLEAR Normal CLEAR [facility] Comment on above: Performed By: #### 1 [id number] ####[facility] (DEFAULT)[address] [place] [address] UA Leuk Est Negative Normal NEGATIVE [facility] Comment on above: Performed By: #### 1 [id number] ####[facility] (DEFAULT)[address] [place] [address] UA Nitrite Negative Normal NEGATIVE [facility] Comment on above: Performed By: #### 1 [id number] ####[facility] (DEFAULT)[address] [place] [address] UA pH 7.5 Normal 5-8 [facility] Comment on above: Performed By: #### 1 [id number] ####[facility] (DEFAULT)[address] [place] [address] UA Protein Negative Normal NEGATIVE [facility] Comment on above: Performed By: #### 1 [id number] ####[facility] (DEFAULT)[address] [place] [address]809 UA Spec Grav 1.015 Normal 1.001-1.[address] [place] [address] Comment on above: Performed By: #### 1 [id number] ####[facility] (DEFAULT)[address] [place] [address] UA Urobilinogen 0.2 mg/dL Normal 0.2-1.0 [facility] Comment on above: Performed By: #### 1 [id number] ####[facility] (DEFAULT)[address] [place] [address] Urine Source Clean Catch Normal [facility] Comment on above: Performed By: #### 1 [id number] ####[facility] (DEFAULT)[address] [place] [address] US Gallbladderon 02-27-2024 US Gallbladder EXAM: US Gallbladder HISTORY: abd pain, Ct findings of cholecystitis COMPARISON: Correlation is made with CT chest, abdomen, and pelvis examination of the same date. TECHNIQUE: Real-time ultrasonography of the gallbladder was performed using Color Doppler and reviewed. FINDINGS: The liver is normal in size and echogenicity with no focal intrahepatic lesions. There is cholelithiasis with gallbladder wall thickening measuring up to 0.4 cm. The common bile duct is dilated measuring up to 9 mm. The portal vein is patent and demonstrates normal hepatopetal blood flow. The right kidney there is within normal limits. The visualized portions of the pancreas are unremarkable. IMPRESSION: 1. Cholelithiasis with mild gallbladder wall thickening. There was a positive reported sonographic Santana's sign. These findings are concerning for acute cholecystitis. 2. The common bile duct is dilated. If there is concern for choledocholithiasis, further evaluation with MRCP/ERCP is recommended. Final Dictated by: Geovani Miranda MD Dictated DT/TM: 02/27/24 5:16 Signed (Electronic Signature): Geovani Miranda MD 02/27/24 5:19 am Technologist: [facility] XR knee LT 4V*on 02-15-2024 XR knee LT 4V* [facility] [address] [place] [address] XRay Report Signed Patient: Lucila Jacques MR#: [id number] 31 : 1990 Acct:[id number] Age/Sex: 33 / F ADM Date: 02/15/24 Loc: [facility] Room: Type: [facility] Attending Dr: Santa Estrada II, MD Copies to: Santa Estrada MD Ordering Provider: Santa Estrada MD Date of Service: 02/15/24 XR/XR knee LT 4V*: M25.562 - Pain in left knee ([id number]) XR/XR pelvis 1-2V: M25.562 - Pain in left knee AP PELVIS: Left knee 4 views CLINICAL HISTORY: Left knee pain for years. COMPARISON: None Pelvis: Minimal degenerative changes of the hips without acute bony process. Mild degenerative changes of the SI joints. Left knee: Moderate degenerative changes of the left knee with medial weightbearing joint space narrowing. Calcified loose bodies seen posteriorly. 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 No joint effusion. No acute bony process. XR/XR pelvis 1-2V IMPRESSION: PELVIS DEMONSTRATES MINIMAL DEGENERATIVE CHANGES OF THE HIPS WITHOUT ACUTE BONY PROCESS. LEFT KNEE DEMONSTRATES MODERATE DEGENERATIVE CHANGES WITHOUT ACUTE BONY PROCESS. Impression dictated by: Haile Palacio Jr., Clotilde02/15/2024 3:38 PM Dictation Location: [place] [address] Transcribed By: [facility] 02/15/24 1538 Dictated By: Haile Palacio Jr, DO 02/15/24 1534 Signed By: 02/15/24 1538 [facility] Coding Summaryon 01-31-2024 Coding Summary HTMLBase 64 YijzycczNOa6jVf+PGhlYWQ+PE1 FAPZnX13puMYsaZ6hL7QSPIaLTs rvSQIYNFnVVsDhjuHxSP9kwRXzO XJu IC8+UB3yBJFiJwestMMxz8A1aNJ 4F58rom5vAGgagKJ5JXRlEgUzug phq8gqfBd4OFzqWzbeIdLu QNDvaE62QIX7qO35Iu84nGLxeRV xw1qgnRk9EwHkWDWbTOI9kSjpIO iyh6OdEEXqX65qhOPlm4L9 KOSwoUqskTLvXhBspEU5sQ0ySSq owoilh8axxvzwGqa9pe72pBTvw0 G8gLC5P9ScboJ9ZPNvgPFd SnlblAMGmD9blzlfv4kyjwmiMjN wCHKkOPi4ZFd0DBQhuMmrUvWpFW 74LVT3YDBzcqTgE5ErRPId nBylLzP9e8Q9Sz3CU3JWSicfR2D NTUFSWTwvdGQ+IV99jt64K5AdSq daXds2ILXrBBG4wUT9gB2y ZECrQOmgy6S9uIK1V7VhhwJbfq0 pj6nuBSVgTKdeU81lyCYoy3K3VG HknNO7LTXywHszEwOewA58 Oyc+QWCzmVrjb3LyLppgp0std7o esKu3KcatNZXmtpPfgOtaEVR9i6 QrIm2iDNWvvXN7vRA8rS4s GqEjNmW2DUpvX252GwDhdBZfWkv sH66mN0EpoDL+ZVQaFmc5ZSNqgG ubGR8sB6DxLANeohdjgZBg zJoaGW2kFYDysiymGBZenW1tBOF uK1f9LcSsUjL3LIwaI7GkSHQvfp odRr86sT4tWsInXpE6TNnh L0GgwxJ2JNQyeAFxTOzcLSQ1M39 ow7C0PZSsUZAbJJD9fQK2jY4vjM lnbjogbGVmdDsgdmVydGlj TPvsHAskV155TVGggYucTiUwQQq uZyBEYXRlOiAgMDUvMDgvMjAyND wvdGQ+HYAnMJY7xKhcDZDq tHIgCVuzJs7lwUmwpNrjGO1yBFR ikgpsXZUdpH9nURXlaONrrQgtSK 6kEDRgrxezt109JkDvDUJ0 WAJwlNLxR1HchV5xDbAbBPMeCPI qI9AvmUVgGDhbI027FRmwGhG8BZ YdujAeG1AsEYDqgEbcJsF2 v7N3Jp2Io2PndglhP8GbnJMdYnW gVgcvQPs4Y5FjFvvbxPA+PC90YW NaWR68RKn1KMN3cBncQWsg JPGkG0EmzG4hTmJoHVZmYKWmAgh +PHRhYmxlIHdpZHRoPScxMDAlJy ConKziAB7oPs5bRWLtDITt sShupHXeJlFfc2cgNNKgIHtjCS7 quYosC4IeoUP0ZCEzj4p4Yd09J5 6wZ3VrtLN+UVThuZJ9rLO9 kO3dRbPtTgC3AWwpB968SuJyhJA xZlaqs5huo2vqnCk9MvM3YFWxsg KiwDfyMSV6i5HvHa62Q00u IHdpZHRoPSIxNSUiIHZhbGlnbj0 uuQ1tLr2+TZZqoIM1nKD1oR5xXl BqAdP1AXyyE112KpSsiYXm Wunlr1dan9uayRt9FzLqMMMjohG coSulIHZ5v6BvOm46J3YqmUqgv0 ZwFek1yz46vXSmn4J8oDG5 D7VwXTVqbwzynAYksXhlNW6nTVG xlpazFVQzhL8iYPMpX5e5HiEpMf V1FCsdU5UkshM4JTNmpVXt JMFswRNXnB9boqfqi5qowppqBsO iQISmBOf0UBf5XZZvbYnoCiJoHN B2CuV0DOS6yNXyjC5teNet rrfthK1vEec+FAI7hEEolZWKUU1 lOjwvdGQ+BEHlBDV8zMwjRDsjIL ZubV1sLQWwF0l9VjUaTlG2 UCzvV4HricD2IJFotWWhUDJkoYU UzV7ocbkwc2tcwaezUkQlXWWxHR g4AEh7UCDcbDffRjUmNIW4 WqY7JHH4tDNvbR4vjVnvxgmfxS1 wOyc+XzgoeJteJSI1SUa6J1TtPy g9CUWqzNfnSQ4upDEtSErk Ew6izIzuhJtlXY6uDTLetgraf30 8XzBep5ysBYSqzIDbANiaROH0H8 8sy5N4YHQhNEQaBXO3jRH4 pK5xtQwvsuzdmRAuiOyhsyZauRf gLQraNUoiI654KTAoyDulKgUvJX n7E0ToUzx6LZApjTjeJG0c bSDrOKgmPd1hnKjfvWrgNR9vAVY zbwijp988NgTvp7sdDBYgySJlMN kvMNS0W34hf9H2FQRiQWDl FEU9pLW5uK1ewJwwtztbrJLsbLi xpmYxaUvrZVytLNvsM755UALzmJ nbNwCqmPt7X9FmPgn5NPPe tTmdPM7vmYKeFScnOl7kdIdnwHs kJU4bHJXsoedzj086HxRid0hbZY DmxEJcLKftCYN2D37hn3V8 GKWiGXPzJIV9vQE4dE8uhNznumz gbGVmdDsgdmVydGljYWwtYWxpZ2 46IHRvcDsnPlBhdGllbnQg TEwuQNg7B4CaDhqaqJJ+YG52HHO jYN40iIXsmKKlw3yjfRm2IbJxQC SvMTE3jDokOPllf2XzVQXq G73chAHvs7B8VGWwaBylqZUdPlC kiHL9qN7eNNvwzqopt3elkjaaKd qgy4gzrp25lD64S72rZEqz YZRjXECkMOSoCNDwaIxsvs0ltH7 wIi8+NZBlrIO1iBR4hC4nZGDjRm S3DVrnS299ErOdpSQfPdwm t5xrc4ncdWh7JfA9HNUianBrkRz ePLG8b7YiPt68E27sJOjfFZLhVG ZnLEXpFGKmyLunqo4enK9f Ii8+TWJgxLC8iFG9tV9xBiDcOwX 8KNnnX368QqEslGWbGuoeA49qZ4 JvdXA+UROcKfw7CZBmdKgt ST2jmTRdXEaiRd6wHTR2SqVyQeX kDNtpZ5GmCSCrclnnkkrbzUA8RU SmOBWhiG42Fm3ghEatTVId lDTPzM5pcnged6gpmnscTwJcVFZ hKOw0XUj7USDyzAqgNhPtWHC2Hg V6EXK0rSCnhD4ocOhxyzez nT6kR7WeJGZkoftaYl70tR2uEgK wEaA7KSoeYwg+DaKMKltmG4WCIV dQIjAPWDZ0G3FpHdt4ACRy jBfiXC6exKUkYJrgGl7ukOumkSo iMY9sDLDzaxmvQECxpG7eFRYhdJ ZeiNreHJ0zYYCefwyog024 DzChWAX7LBZqbYFtB3MjeC3xJfR xKGUgQMNqG1ImeDTtOXibH487JO yzEaU4QABaczYbX0VuGLOu fAtbJuX3z0L1Ol0rWT1nUx2wWUa 3HQ19QB07uMPfy5A3dGX6J8KaOR OfrqxekesyfXR3XYSxNWEs xX89wLKiANtbLs3rk1V0s453BUK xCUXzuT24Qf8oyEvrCQRtpGHBpK 0uysgei4pqrkjpSrJgXPGj AMs5LBx0MZVjiUhnDjWdDLU5YfN 6XLM7iSEbcH8ezPddovmynR6uDq c+TzMxKYIkztI5R0PbJhv0 QAHfaSiyFJ1blYSdNThwKx0lpSo okSogRW6zPANwwfscZDCfdD4hVF PzoIUazMczML9hBCZufudi t118MdIsHUR0FARddRTlD3YpqQ5 iPvUwFJIgNVWfY4YnuTVkWPagH7 95FLxiWeN4TCOfjaLgV8Om SWKzcBfrGtT5k5S1Jt4EEM1LXXG 5H2XnYgu5BWAknBoqRQ2tjJVnAX ocCw8fyRgmzYznML6jQHIi ezoaFRPzvN1sQMWopUTbeMlgSZ5 xSMGoewzoj429TjOeEPU4ITWgsC YyJ4YioM6jAbDpMHDqDDOk Z0JdyXKiMYqdM166GQtoTxC1GNX bjfMuG7QxYCKgkLgoQqQ3h6D8Pb 5PUDwvdGQ+CH88zg23B3Sd VdauZir8IJGmTHG1oST8qO4qQXR dJTcwc8H3iYW6C4YkwcWzff6jz1 xmRQSgYDycR99zoDSek2G4 BIQsqSZ1DHNyhSehKjUibJ79Ojw +FWKsyRdar3PnZzpuz4vfn7vtvV w1TbVlGGTfihJdyZljDYR2 i6VqTh81V36dOFbfAPBxLHWzVTO eCMNfdUbdgf0rzX7dYv2+PGNvbC M8gHH6iU7wDvOfNlU9XOrq I215JcZuoTJxLoupk0cwg1hmoLf 5BfMjSXQnapPaaFrhXGW8s0DqPs 19Z0XqtAouk1KqQuz6wz89 gDJjz1M7mJF9Q7StBSOgkdusjYK wsXowAF8lLDItcyvrFJWzqF5oLQ KhB3u6CoZiIaD5JYqjM4Ou oaE2JFSieJZbILWqoUOFfK9wykq mb7xiewfwPyUkBUEpTAo4FYo5KR PwyNgjSlJnHZL1CnS1MTX5 tPUjsD5noHvgrfmhrF6iVbp+UGh 1a4utxRUpQH7ppYI2XD27SJ26dB Ovj0I0uQT9Y8QgJMSxubjc iiaflAU5MGFnYLJpsZ70Fb6vhAw oDb1dSRKdRXL5PTZxhDQoT3RatD 8pKqFlLSRiXJPmI3XgkUQz AYjuB179KCarEgV8BOLerjDaR7A kYVThoUouMyP1e9P2Yj3GDY62OC 88ZV87fTXge9I6iZW6T0Lk XCXugerdyfhjpBC5WYMyDVWciB0 5Lb7rsSdbLj4rIDJjQRM0DGCcfE RbM4BtoQ7sYbNoESFmXHXn S6QdcDYmWLdvV092FAghOwR1RAA aqgLfL4NoLTDyoSdlSqA8y2A2Ep 8GQp15GK49GK12fULho8D9 dUG2H1UsDBLrgdrxsqwvzZG3OTN zMGPydD60Rm6wzSfcFo7aOWRwKP V6BFNvqGKcS0UsrZ8qQaCk IAHnUJItF5RhfVRwNTnbH022VLo uNaZ6JEHougLeM1OyHDWqvPqcCg T2e7P0Xe4HTBxrdvj5T8Lo PjwvdHI+HZ84QLPsBR44pIZrkAH bq7dwtAu1GvRuHSHfMXS5kVztKJ rrm9XxOBRdO52lbRBkw5K4 IGN (more content not included)... [facility] Progress Note - Provideron 0 01-29-2024 Progress Note - Provider [id number] [facility] Coding Summaryon 01-22-2024 Coding Summary HTMLBase 64 WnkmbwtrZYt4yQl+PGhlYWQ+PE1 ELMTtS26rzLKswQ8fB5GJYLcECe wvSYHZBAbDMrTfrmOoHQ7koTNdX XJu IC8+JT1uHCLgJldhmMLpa3L1xPA 4D88upz9lZTfltWH6QOKbZbTciq sfh7ggvAj3GBhvMqupZqWw JHVbvP46TMM8hV00Fs71hERpqDN mz7zqvYy4OiOfZMYoBOW3mXrxOR vxk3RaPGEpX43ccQLmj1U1 LXCddAkejICiGiKlxUB2dL6lMPr xwsftp5godskeYbw5nq55ySBgw6 K6bIR1N9VbilG2LYUnaYOa NgeurTQAbN1ttynjo3xpusosStR nZTEeWYx8XBl8FSDmhKvtVqXoIB 45VTM2JAYapwDcV0MjBEKx sUbwXtI0w8G2Xg2BN0TQXmfeB7L NTUFSWTwvdGQ+OV19bw36M5QySt naSyq0EESeENK4sPH5zE1o VJStNTich6H2uAS8I1WtkrLfzn5 qc2khDULoMUbbB74raQLtn7T9VI TvqOU3OTHygOitVbJsaJ43 Oyc+CYHxeXmzn3UcSnquc5biq7l vkQv7PwneSYYzkeGzkAqhGKQ9w0 LbRv7qWEMpoAV3hHN6tF0u PqXhUnY5MThuB631NzVdvOThJzd bJ99cG0SsyON+EENyChz2BFPpgD zqBA1zM4DiORMsjshevEZv zLdcLI4fHEVnccxxYFHtkY6bAFZ eO9i3RmQlFfX5XAqgM4MqGSHlzq hoTg61cY1tWeIgHaV3PDnx G2SucvB5LQNckQYsDJaqKNQ1K35 cl3G0STAtBWByKZF1pPA9rS1rtJ lnbjogbGVmdDsgdmVydGlj NLhlHHqaX580MXZzpBrpYzJbUVl uZyBEYXRlOiAgMDQvMjkvMjAyND wvdGQ+YIBlXCI8fOeqJCNk dMBjTZpxUj7twTrpoOrfRY4iGGS yzpawMRNyrM3zVXLjpNYuvHaaFQ 7fELAvloeyk465RcXkCZK6 EEHnaCChF0MjcC2uImWmGUSqZGU eT0LebZHsXQjcS494XPhwQjD6FB ScknSgK5ToROQcnUvcOsG1 e9J4Nh4Wx1EsvuobU9PyuZYgXoB gMnmyHYz1T1CnXbkhyIR+PC90YW BcPM09MCx4NZE3yAkxHYoy UVMaJ0QslJ8eLwJkRGSaOTJqZuw +PHRhYmxlIHdpZHRoPScxMDAlJy NxfWcjWR6tYi6xJRPsGEHh aBggvBEwDaLuu7znHODgSUxiOA9 daTcqT0YxdMG9DVYeg6x4Tz25G1 9sH2WscDJ+QZAonSL3jDX6 oX8rOtDfCcX7JJrhB113ZkRdjBB yNwnjb7nwb6xkzLi6DuN2SQZxlk QvyAafJVR9x0FmWc03L79r IHdpZHRoPSIxNSUiIHZhbGlnbj0 mmH5hHx4+XFMrjEC2xEL0vZ2nSj DkMeV1LWdgJ975PgIxqKPk Vakgv5mvv0mpjEd1OnOgCKZnerB zcHewMHC0i3YrTc51O7CijZazj1 RlQkn6hm25hPPwa3U3mTZ2 L0AtPGJcnvjyjXEtlGpvAS0dCDP iqtomWNArmQ6xJARtG1d4GlMzRs L2FFyvK8EgzdU4VWJbmWUt UIAekWLNqQ5epgacu4bbyewpJiR aSWLdSFw0VRb0VFIlsQhrQeZxND B2ApK9DTD3lHPgvD9zmCng dapzsK4dTcb+DZZ5fWIfcXCRYF3 lOjwvdGQ+UFBhBRZ5sLptKZpyXF ZkfT3gHADnW8i0JaJgPfX7 ZMkkI9YejgV2LDSriCFoWIRdmJP AvB1ytyygl8dwbhgvCaQpJWAeCU g6TRn2ZGLqbGhxJwNfPRJ4 QkA0CHK2dDNgfI4ndYburaufhY8 wOyc+ReaxwPkhGYE7DDo1N0EpSx z5YSSfsIrmFH7gzOYuBWkl Hx0bhKprsFbwMJ0qOUSwbfgvk95 1BaZxi8ktVBDmpEJtNJcvIAH9U1 1yu8U3CWZbANAfNNV2bBZ4 iN7ajPnbmsggyBBxmNxhaoEdfTb gYYgvKIjhY335RGHlvPqtErZlWG n2N5HuVoz4LNTxdUgwWF3j cXUmUXatTz8deDkwdToqPV7sXWX nbtdor354DwGfu3xmQVRagBZhCZ sbNPN9N84nr7D9LXIcVRWs XHG4rCQ7tT9igGjprvdsaVUlhWl fpmJemMwiKCezQNjpN622BIMjnM isSbRorPe8Z0NnEhq5UOAd sOkbJA5kvYRpGAqkRd5hpGrxfHc vKI1nKKPkabuwt093XzMjy3sgNU PmyJMcUShdUPO3U24gu0L8 FITePGCxJGG1mXL1mU9ddDkzxhd gbGVmdDsgdmVydGljYWwtYWxpZ2 46IHRvcDsnPlBhdGllbnQg CRkrUUo2G2BgClwmbPK+BW16FZU jHK05hMFezHNpm4hklPv4SbPjAG FuDOH0dMgxKZfuv5PvLQMb S80cyYNmz6S0GLWqeDlawFWwXxX sgHD4bY2lLGuqhrych7blfdssSz eii7tmro07aZ23J00iKYmo PSQiADJxLIBdCXIagJcgom6akT0 wIi8+QWQysDH7dEI5hW5sPEHvHl M6TVoaZ183XgAhtNIhMpvv g1bwn4hqaDs5MfD1VJWqtfAqkLl kCQP8m2AwOm99S18cXLzvHBOlZJ SmKPVtGBHdsZjmds6tpU2g Ii8+MVSfpTT3pMN9nX6lLkVjRnV 2SYrlG442ErJrsMOiJietT89bO5 JvdXA+CSQnVgs0OGQfoZvd QN7nzMZhSLdpVq5cSXK1LqMxQwC jQQytR6WlYCDvekrmydocvJI9PA XbBWNjwL88Ux8zmThsYTSv fCDZbX7ippiel1ocyrseWdCgPTA bVUp2XCn7CMUnmDzxFpGgTJM3Qk E3QZX5tLMxpT8reVewcxcz wD7gS3BrGRXqksicTr77uV4wRjX zWtE3GTegXcs+KuAGWxycX2BPQD tNQjEWKNM8M6JaQmb3WRHw kUjcLG3jnTHrKOcvYk7gjPsdmWx oSA7aECQbcswxFQKrrU7zAYNujE WvyBsqOJ7gDFPbvxsek330 WyGdXLU9GEUhaENvH4TbnJ4zLuH rRFZbSFJeV0PyaFAoHRyoH957UZ jgNmV2FCZgamBzM2EmCSDb dCtxYnS9e2O0Xp7bMZ9wJh1iERm 5JA39AS27iMUqy0P8nLO6Q1IrAQ KbniypeurfmEP9FKDyQOBu pU03uUKxGDvaHf7tb2O3u269MPX vWSUpyJ48Wc9buRhkOQNqqSQIkB 4kncrlz4ugjmxtIbLhGUUl WFe1HGn1SPTuuIgiJzWdIIN0CoR 3RCW0sROcrD7mvFxygouswF0mTm c+YkMvSSIeqrX5B3ReFxz6 DYGukAogYF6eqNYhTZelGj9yjCg uaYdhBR4fAYXubpflZXRtxK6ePS QbjEIfgUrpFE9pVBDvijmj k751OmLtVAR4MFQwoUWaF9HzqF1 zQrCnCSZqOKVpX5HstVXxNNpoT9 23IKyxMkM5POQmatBoE0Gp ZOFitPjaUqN7m9Z4By0GFZ6APYE 1C2AoRmd7STGwdHhlIZ2fdHYzQS waTq4jfYpzgUmdPJ0dKAHx bkmmHUFlhM1oWZWptMQxuCbiWS5 eVNBfakfop004UfAbJHJ3TGCnlV LxD0AhiC7zElEeDGGcCJVf E9GtoQDxFUhlZ899CHeeXjG9AOP pueDnT6KkBPSwvBnzWjQ3b2S9Wr 8PGLbwC9AyN3TswWdwtBE+ HA17hb26V7XaEqbjOjt7PPDyWMC 0uRQ5xA4vMGDaCKyou0E0xVP7G0 ZkgoWiwe1hc4loOLEgZIjp W38xsMFee5H1BEHmkQY6MCHsdXt xFfNktO83Xbt+CGAazBigh2AxAn akm9uix6egrFs5FzDwQRBj ieWneIomLXB0k6TdWo12I07jXLn hNPYuNBEmCZVaCLAtgThyod9vuB 9wIi8+FHWopPE2pKA8yA7x XiMrBbM5SVbyW918BmZkpKFkUhu el7kfi6mgxIl6LaRqVXAtceKpkV mlAHQ1y3ZuSb51N8ZnhOqy p8SoJth5oq96lFCcx8G3eNO8Y8A rEXQaljnckNXdlLbeFI4uCGKoyr lhGFQbvZ7jFONfZ4e1BhEv KnJ0HCweO1EmziL3BHIuuSXdJEK dtLXLfI6uypmiy7jeytfcRiJtET BpTFi2AId1MMNivMysFmTd QCK3RwT5HCQ0yPRtkM5mjKobmao mnO4dKhi+EEq8f2inhYDkUE4bwT U3FG63BI43bGEga8Y0qKE2 J8CzWKCsnlzhbawpbRE2LGZvTZA ngS89Ik4ckNbqZw9lYSKiEWZ3EJ KoiSRlQ1HikU6bWyIhJTWq HBKuQ7JuqKGfOSyxH634VXktMjI 7LXGysdOdP4BcHBVwpHbgIsN3w2 M3Za5MWR55PT65OK33cCDe p4K3pLA5H7YjNVVcirnrqfutpCG 7DNLlJTWugK79Ro0dnMfdPa5tKH BnZDP0HEAthIPlX6YrzH3i HfOeMBLcJGUnB0BkgRJfIRdsR32 3WBguOvV3DIIuwnNoM4KpYDExkT ceHrS1f0W0Wp3XJg41JJ48 GL54nSKlq9E6kXW1I7MwHALnfmt wmtrxmES4KVZwIOBliI79Zl6vfE djVv0oXLLfSUD6VIXhkLVw S5MbxF8fEeCqQQMnEFYhW1DdeJO bLFgnD576RCrcFhV8JHIhvvMdG7 DoIQQdoRssGhQ8r1F2Ve7E VPsuiou9B6ObVlxipVH+KJ72UQT fPC91tJJnhUHeq4pedPk9GbUgSZ ZcAND9sCgeLWoif7DsZZZy Y29 (more content not included)... [facility] Coding Summary HTMLBase 64 NygcfnpmJGa8nTm+PGhlYWQ+PE1 USRZcI62wfHUfrO0mT2SUCJkNZq eaDTHTQKbHGjLymhCyYF0gxYBqP XJu IC8+PL6eJZOvXwjiyLTll0K7lCY 0A33yql9eZIxkkSM2TVShZjHmts qwz8rinAi8AZnwNkvmCdUt QBIzcA66IAV1jQ58Dx35aKWphUR nb6pctId6MmAaEWInEHU6oKguXO twv6EzVQNeR41xrOPru1V6 FJMksGpybHLwOtLayEE0nT4xTXt jioygd8vfxdhfMco7rs23rFLky7 C4dPR1J1UmzbV9YAGxyVZt WymavNBJuR6gxitmk2vhsjdqLuL zCYOfNYh1QZk1PVPmvRzaFrShHP 61VCD8LNCxtmXwZ5XkSQGj cAnqYzO3w6F7Ta4QX0UQRnfqJ9M NTUFSWTwvdGQ+IK97hy26A4QdSg yfKjc5OLRkWVR4rHQ5tX9w WVVcDKdwt0A0sBG5U9LyywXewz6 le9zzHRYjNVzsI82ozJOia7L8BX SyuKB0MFHifTvoWmAtkO94 Oyc+SDJjuKeyf2JqLlcfy5hkd3k ehEq1KcmyQIWwqyJlyOdmCQD9a2 KuTf1fXLTvaRQ1rHY9rO6e DyRgKcK1IMmkM717TbWkeOFvTvl fO37cB9VlzWT+UNMmTpt9DNTmvS cjPF9yO8QuFVTkvjauwOCq rIylAN5eUMCdvmtpDFJbtZ1sXOO wI3g2LgDpUwF1QNvbZ2GtSJRqfg kzYh94sJ6yNoRaAsH3FQnu I3WyajU2OZTrbRLaHUhcTAJ3X34 ue0L8CKQsBMGuHKT3gFW7jW1kfN lnbjogbGVmdDsgdmVydGlj RWnnYOtfN271CWUulIwnXzIqAYw uZyBEYXRlOiAgMDQvMjkvMjAyND wvdGQ+RBMnHCR4rZryKKHc dIPvLKjpZi5pqJbzcDncDL5wMTM bavomKTOtjB9aENPzrJQrmOgwKU 5mGYAfvhtuo584AyFdJWV2 GFSzyOXzL3ZjcY4tGsHjBXZrIKL tM7ActDYxHJulB759AMejMoP5SJ YzcgIjY4MkEZSxuMbvWoS2 l9D3Si8Cb4PfoelwM6BneHVxDnU lAtzwNEv5Y8AwFowvvTF+PC90YW FsHR30DCq6OII0yNsuVRjq HZLrI7OflQ5tKsFlFWFcAMJuNao +PHRhYmxlIHdpZHRoPScxMDAlJy UiyZomYG7rGb9aZBNyULKl fEoneAZsLzQsh7kxYZQuPEsgXF3 okVbqM6GnpBE5DEVzx8h2An20D7 9yJ9ZreDT+ANQhmDV5zFH7 lS6gHfUjBnV1UZktB882MxNtbQH yOwtth2xrv2ezqNr5QaC4YWUbch MwoTsaPKY2i4YuLr11D56t IHdpZHRoPSIxNSUiIHZhbGlnbj0 kgN3sAo5+NVXeaML1nXR3bU9cAn CzQoH9JRhbB934FbUltIOe Dacfe5jea6aaaBd8WbRzUVCjmdN guDjaSVD1f5MiYv26Q4NcrSloy8 XjCku2zj30gKEab2I7lOU1 C8UlRSIxqhoxxTQwqOaiBU2qUFS cohurHPHujO8gXBNwC6w3KqDoEg P1CIghX8CzdsN8DFHcmNZf LRWnrIMSfX6varxsh4hviqpxGsV bIXRaXPa9JDr3DECteIoxGtNqSG V0UgN3HWG0hLSkqS9zkDlo pcodnD6yHkq+THM2kXFvjYDTHO4 lOjwvdGQ+TXGdQWM1yIuqXApaQT AilD3kOLToF7x0WvPtLeF1 ZAivD5UzqfS7KRTvlIWbGTHmySP JtL9bxkzff9ckdwlnEeXzOUPoPU q5DAm6UBFvbUytEjPnYQS5 YdD2VAR6cRBcxA3pnTlyghulhQ3 wOyc+WerkpFgvCWF7RXa7X4JwNb z7WWFznItvFQ8arTBaGLjo Nn8zyKoriVdsKZ2lKMQzecihq30 5VtItl0dyBREtsIRjBKywYYW1W8 3cd2E1LIVfHPIqDFK7nMB3 zS1ikRrugeaclJZnmOugtjPqmUu mLJpuSMvxN336ACQshGmyQxLuVS f6O0ZqRon7CWIofUdtUA5j hWRdDKmnUw5wkPxfxYfkNE4dZWB izadxz082EhJuh9jqKDHqdDAbEM uxSFH8H96gr1C0MVSsHTQl AID3iIB2iG2ebLxovxoopIGukOc nsdWzbIuoTHuuZYpxS106XRNbkL syEeGulWc5P1PaJsk3QKBs mOrgSZ3wpQMqMPnhYm7mmSixyNa kPW5eKEZyzivsa727ZeFbq9acMY OgrPBoSGzxAIC9I49gf2N2 RJZtAQXjTBR3qUP7sI3xsJzcdjg gbGVmdDsgdmVydGljYWwtYWxpZ2 46IHRvcDsnPlBhdGllbnQg MBelZZc8N5JvIcsujJM+QY53AYN tTH93dYTqzMOqu8ezfNd5DhNmKD IyAMH3lIulTVbpk4XmKXWw O90irTStt3G0BFTruModuLZuIhO gqHN7bU7lGXezdqwfa4fvnubjZf nfy7oiyf72dI11I83yEOle RCTjROHjYQYjDQYenJzdeu5krI8 wIi8+ZMAecPO6kPZ5zA0xHKNxTf G1TQjfI066IfCmqEBpDogt e8xuq5vpjAq6DmN0AFYqgxRvtBw qVJD3l4KsXk36H04sGNauTDBnGB FkOFEeRJGpdVphsu4xeX3t Ii8+NJVkfAF5bLS2fJ5kRnHxBkI 8JHhvZ465ZqSpdCWeWmoeP13gD7 JvdXA+HWQqRhn4IBViaQhd YO6zoTUyIZrnBl0dAVE2LjNcKgL jRJhgK9UuBHYevzyhnromvVM0SK TzYSOlpT47Ly4wkQqgPLMo pTAMkO2mijqfk0yfmdbtUuWyQBS nSJs7HUg9VKDsgPwtEjGaTSU2Kg G5TPN8sSEpmU6jjJbxihpq tT9eC8QyOQTbedkcIh91mP2pQvX qUaL6MUxlLan+ZdSTDlbfC5YEWU mLBuDLWGI8Z6LcGtr7ROEm lWjsVG9phPXaJEnmSf7yeIisnXx uFR6lPIUjkesrOYKmpJ0fVSOxtQ EnrQbdJF0zARByfwdwp278 KgSiITK3SYGhjUNvB3StxB8nJaB kIDNbYEFwD2NdoQPmUMmeS948OP owXrJ3WBKwoeCvS7QtYLGb bCreXmE0b6V9Om5wCY7cXu6tCXq 4FL64HC30zTLys7L2mWU0N8AkYZ MslcghhkxytOO3KQRbNYGn hE31yNEfQFtnPb6oo4N1r627UWP oMYCknS04Nt5alHahPWGrwULSzE 9qtgldb2szdjwfZfXcLVGh IFb9FFt4LEZxgCujHpPqBAB9JrE 2KQA7dBCppR5ykPyijokonU9rVq c+HqQcNCWmyfF6I6SyOvv6 MBOweRknFX7dyISyBBjeVr3mfLc pwLjoKK5fBUTgtkgdHXYpzQ3hSB TutTRioCwsHP3nPEEyejpr y844FlBtFMR7CPCllSChP1MriX8 sLaZzWQJcSPSfW7UlbRKmAQpmQ2 14XVprQlO5KCIitbWjM1Ye NPIgnJggOcU0u1M5Rw9GHV2CSLF 1O0VjFqd8KBKsnShdQJ3jfVKpDT mlNb0deKsscSynOK8zLKVw xnylSAPbqB3yLJUuaTDdmQgkLE8 kXHRovznmu435MiHcLJR1LMMvlL DlW6YlbN0fLoHfYHAbHQSe I2IrzJRrYLdaQ143TIxdWwS8EHJ znoEwG5DnJGAoaIwwYmM9b0A2Md 5PUDwvdGQ+BX64yp58J0Ra DljqKam0KXMoAEN1vXY9xB6iZLT dBFbts0X9bII6Z0WtjtDjrx9yt5 opIYGtTPcnU24swOVet7V3 LUKdlSR2IOAfkZbdMdGicY08Grt +GEOdkLbqf6EfLmuwu2amq9vgiU s2FeTlCHOeziFofXfyDSZ9 e7VmSb79N00rNFpsBZHmHHBgKZV qDKJhoSrtpj9nkX8xFt8+PGNvbC H0pRK8qD2bBqGbQhF4GInt Y158IvSryTAoMdsvk7kqy3cerUz 7ZaUnWZXihfXdrEglMZX5j4BgKa 21Y7LcyTykt4DzBoz8fw97 oHCpg5Z5lSA6J6FtZGZogoqddOQ puVpcYV2eEXTitxdgRZIgcD4nSR MiY2a0LiAgBkM7TLdmI2Wd mpD1WXVxbYCtLLMilQATrK3szpg ra2ulspubYuLzKHBrIYy2ZQa6LK GvgMtdYpCjNGF0DmC5SRO0 yVZqeP2wgIpjgceryX9tVpx+UGh 5o0qabWKrPL3adTM3BN35YT69zA Wbl4K5iOR4A6ShYPAvsjek jenpzZT4EDZdBDEknQ86Gd1nqUv fBd3iKCMjPWR4LZRxvTTbM9HolQ 8iJqNhZIEmYUSaJ9LojMTb BCicJ158VBznMgT3YEAelxTnC4F gXIHciSghSuZ9i8C9Vr6QKE60EN 63GF70jRVdi8S6eTO0J7On ILClctpwmalymIO6MLYoAQBndE4 0Yu2juClrDb3aONWbJUV3YSDomR KmY8LzsW1fOyDhPYOqSYNz V5PtlYIcHWrtK528QVhdJdP5DJA vtyHbU7TgDKAzzOzrRfU5m6F4Kb 1GFm16UK88GO63jJZpl0P6 jHJ6A7SuAWMnwlqvmonhvQA6OFJ xCXSthV45Hb0eqYfnCi0oYVAiAG P1SPRegWJcE0GvhM9eZkDs HAPeRSSwW5BwiPMpKKlmP141VUt fBqJ2ARSakjWgP2UuYSTywOkdDh Z5v8S0Oi7YZSjodyc7Q8Ay PjwvdHI+XT25JFKaSQ50qAMkmWS ai7zzyVd1FjTmXTKjTTN6lXeuLC ehu9UgKZJdJ13rpYTac4A2 IGN (more content not included)... [facility] Consent Formson 01-15-2024 Consent Forms [id number]#[address] [place] [address] Consent Formson 01-12-2024 Consent Forms [id number]#[address] [place] [address] Controlled Substances Agreem entson 01-12-2024 Controlled Substances Agreements [id number]#[address] Inpatient Patient Summaryon 01-12-2024 Inpatient Patient Summary [id number] [place] [address] Patient Discharge Instructions Name: LUCILA JACQUES : 1990 Patient Address: [address] [place] [address] Primary Care Provider: Name: Provider, Loni Phone: After you are discharged if you find you have any questions, please, call [phone] ext [phone] to speak to a nurse. Discharge Diagnosis: Prescription Information: If you have been given a prescription for narcotics, seek immediate medical attention if you have any difficulty breathing or any sudden status changes such as confusion and sleepiness. If you or anyone you know is experiencing suicidal thoughts, mental health, alcohol and/or drug addiction problems; contact the [facility] 17/04 Crisis Hotline -Text 4HXVY [place] 308721. If you received any narcotics, sedation, or any other medication that causes drowsiness for the next 24 hours, unless otherwise directed: ? Do not drive a car. ? Do not operate machinery such as power tools, lawn mowers, drills, sewing machines, or stoves ? Avoid alcoholic beverages and drugs for allergies, nerves, or sleep ? Do not make important personal or business decisions or sign any legal documents [facility] would like to thank you for allowing us to assist you with your healthcare needs. The following includes patient education materials and information regarding your injury/illness. JAVAD JACQUESTLFREDERICK GOODMAN has been given the following list of follow-up instructions, prescriptions, and patient education materials: Follow-up Instructions Medications During the course of your visit, your medication list was updated with the most current information. The details of those changes are reflected below: Medications to Continue That Have Not Changed Other Medications acetaminophen (Tylenol) ALPRAZolam (Xanax 0.5 mg oral tablet) Take 1-2 tabs prior to procedure. Refills: 0. bacillus coagulans (Probiotic Digestive Aid Gummies) baclofen (baclofen 10 mg oral tablet) Take 1/2-1 tab BID PRN. Refills: 0. calcium citrate (calcium (as calcium citrate) 250 mg oral tablet) multivitamin with minerals ([employer]er Women's Multi Gummy) Template Non-Formulary Keto ACV gummies. It is important to always keep an active list of medications available so that you can share with other providers and manage your medications appropriately. As an additional courtesy, we are also providing you with your final active medications list that you can keep with you. acetaminophen (Tylenol) ALPRAZolam (Xanax 0.5 mg oral tablet) Take 1-2 tabs prior to procedure. Refills: 0. bacillus coagulans (Probiotic Digestive Aid Gummies) baclofen (baclofen 10 mg oral tablet) Take 1/2-1 tab BID PRN. Refills: 0. calcium citrate (calcium (as calcium citrate) 250 mg oral tablet) multivitamin with minerals (Huber Women's Multi Gummy) Template Non-Formulary Keto ACV gummies. Take only the medications listed above. Contact your doctor prior to taking any medications not on this list. Diet & Activity Patient Activity Level: Patient Diet: Patient Activity Restrictions: Comment: Patient education materials, if any, will display below Viruses or Bacteria What?s got you sick? Antibiotics only treat bacterial infections. Viral illnesses cannot be treated with antibiotics. When an antibiotic is not prescribed, ask your healthcare professional for tips on how to relieve symptoms and feel better. Usual Cause Illness Viruses Bacteria Antibiotic Needed Cold/Runny Nose NO Bronchitis/Chest Cold (in otherwise healthy children and adults) NO Whooping Cough Yes Flu NO Strep Throat Yes Sore Throat (except strep) NO Fluid in the middle ear (otitis media with effusion) NO Urinary Tract Infection Yes Antibiotics Aren?t Always the Answer www.cdc.gov/getsmart GET SMART Know When Antibiotics Work U.S. Department of Health and Human Services Centers for Disease Control and Prevention May 2014 [facility] MAGR Intraoperative Recordon 04-19-2024 MAGR Intraoperative Record MAGR Intra-Op Record Summary Primary Physician: ALEC PATEL MD Finalized Date/Time: 01/12/24 11:47:08 Pt. Name: LUCILA JACQUES Augustina/Sex: 1990 FEMALE Med Rec #: [id number] Physician: ALEC PATEL MD Financial #: [id number] Pt. Type: D Room/Bed: / Admit/Disch: 01/12/24 10:59:54 - Institution: Case Times MAGR Entry 1 Patient In Room Time 01/12/24 11:40:00 Out Room Time 01/12/24 11:46:00 Anesthesia Start Time 01/12/24 11:40:00 Stop Time 01/12/24 11:46:00 Surgery Start Time 01/12/24 11:42:00 Stop Time 01/12/24 11:45:00 Last Modified By: Reba Liang RN 01/12/24 11:46:20 Case Attendance MAGR Entry 1 Entry 2 Entry 3 Case Attendee Reba Liang RN, Diane RN Heintschel, Sara L RT (R) ARRT Role Performed Plant Operations Engineer Plant Operations Engineer Emery Grinder Time In 01/12/24 11:40:00 01/12/24 11:40:00 01/12/24 11:40:00 Time Out 01/12/24 11:46:00 01/12/24 11:46:00 01/12/24 11:46:00 Procedure Block Nerve(Left) Block Nerve(Left) Block Nerve(Left) Last Modified By: Reba Liang RN, Kelly RN Weisenburger, Kelly RN 01/12/24 11:46:22 01/12/24 11:46:22 01/12/24 11:46:22 Entry 4 Entry 5 Entry 6 Case Attendee Mason Garner RT (R) Dina Malcolm THOMAS F MD ARRT SPANISH LITERATURE PROFESSOR Role Performed Emery Grinder Scrub Personnel Surgeon - Primary Time In 01/12/24 11:40:00 01/12/24 11:40:00 01/12/24 11:40:00 Time Out 01/12/24 11:46:00 01/12/24 11:46:00 01/12/24 11:46:00 Procedure Block Nerve(Left) Block Nerve(Left) Block Nerve(Left) Last Modified By: Reba Liang RN, Kelly RN Weisenburger, Kelly RN 01/12/24 11:46:22 01/12/24 11:46:22 01/12/24 11:46:22 General Comments: cuong Chowdary in the room during the procedure Surgical Procedures MAGR Pre-Care Text: A.20 Verifies operative procedure, surgical site, and laterality Im.150 Develops individualized plan of care Entry 1 Procedure Block Nerve Primary Procedure Yes Primary Surgeon ALEC PATEL MD Modifiers Left Surgeon Comment LEFT GENICULAR NERVE Start 01/12/24 11:42:00 BLOCK Stop 01/12/24 11:45:00 Anesthesia Type Local Surgical Service Pain Management Wound Class Clean Technique Details Closure Technique N/A Entire procedure No was performed via laparoscope or robotic assistance Last Modified By: Reba Liang RN 01/12/24 11:46:50 Post-Care Text: O.730 The patient's care is consistent with the individualized perioperative plan of care General Case Data MAGR Pre-Care Text: A.350.1 Classifies surgical wound Entry 1 Case Information OR MAGR OR 02 Case Level None Wound Class Clean Specialty Pain Management ASA Class N/A Diagnosis Preop Diagnosis GENICULAR PAIN Postop Same As Preop Yes Postop Diagnosis GENICULAR PAIN Blunt or No Is the procedure No penetrating injury considered occured prior to Emergent/Urgent? the start of the procedure: Last Modified By: Reba Liang RN 01/12/24 11:47:02 Post-Care Text: O.760 Patient receives consistent and comparable care regardless of the setting Time Out MAGR Entry 1 Procedure(s) Block Nerve(Left) Time Out Checklist Verifications Team Introductions Yes Confirmed Identity, Yes Completed Procedure, Incision Site, and Consent(s) Presence of Yes Site Verification, Yes Necessary Site Marking, Site Procedural Marking Equipment, Devices, Alternative, and/or and Implants Site Marking Verified Exception in Accordance with Facility Policy Anesthesia Review Antibiotic Received n/a All Anesthesia No Within an Concerns Addressed Appropriate Time Interval Prior to Surgical Incision Surgeon Review Anticipated Blood No Expected Case Yes Loss Risk Addressed Duration Addressed Critical and Yes Non-Routine Steps to be Performed Addressed Nurse Review Equipment Yes Fire Risk Yes Checks/Concerns Assessment Addressed Completed and Interventions Performed Diagnostic and Yes Sterilization Yes Radiological Test Concerns Addressed Results Displayed are Appropriate and Labeled Other Concerns Yes Addressed Time Out Reba Liang RN, Time Out Time 01/12/24 11:41:00 Participants Xi Lawler RN, Rekha Colin RT (R) ARRT, Mason Graner RT (R) ARRT, Dina Malcolm SPANISH LITERATURE PROFESSOR, ALEC PATEL MD Last Modified By: Reba Liang RN 01/12/24 11:44:06 Patient Positioning MAGR Pre-Care Text: A.280 Identifies baseline musculoskeletal status Im.40 Positions the patient Im.80 Applies safety devices Entry 1 Procedure Block Nerve(Left) Body Position Supine Left Arm Position Resting at Side Right Arm Position Resting at Side Left Leg Position Extended Right Leg Position Extended Feet Uncrossed? Yes Press Points Checked Yes Positioning Device Pillow, Safety Strap Outcome Met (O.80) Yes Last Modified By: Reba Liang RN 01/12/24 11:44:26 Post-Care Text: E.290 Evaluates (more content not included)... [facility] Preoperative Record MAGR Pre-Op Record Summary Primary Physician: ALEC PATEL MD Finalized Date/Time: 01/12/24 11:49:22 Pt. Name: LUCILA JACQUES /Sex: 1990 FEMALE Med Rec #: [id number] Physician: ALEC PATEL MD Financial #: [id number] Pt. Type: D Room/Bed: / Admit/Disch: 01/12/24 10:59:54 - Institution: Pre-Op Case Times MAGR Pre-Care Text: Patient will be optimally prepared for surgery. Patient is free from s/s of injury. Provide information to patient/family related to plan of care. Verify patient allergies. Confirm identity and verify consent before the operative or invasive procedure. Entry 1 Patient Arrival Time 01/12/24 11:09:00 Preop Departure 01/12/24 11:32:00 Last Modified By: Sushila Quintero RN 01/12/24 11:49:18 Post-Care Text: Patient is prepared mentally and physically and is ready for surgery. The patient remains free from s/s of injury. Patient/family express understanding of plan of care and participate in decisions affecting his or her perioperrative plan of care. Allergies documented appropriately. Patient identifiers and consent correct. General Comments: Pt arrives to PSW. Pt denies SOB, chest pain, cough and flu like symptoms. Pt also denies pacemaker, defrillator and sleep apnea. Finalized By: Sushila Quintero RN Document Signatures Signed By: Sushila Quintero RN 01/12/24 11:49 [facility] Patient Handouton 01-12-2024 Patient Handout [facility] Test Urine 1on U Preg Negative [facility] Comment on above: Performed By: #### 3 [id number] ####[facility] (DEFAULT)[address] [place] [address] U Preg Internal Control Pass [facility] Comment on above: Performed By: #### 3 [id number] ####[facility] (DEFAULT)[address] [place] [address] Progress Note - Provideron 0 01-12-2024 Progress Note - Provider [id number]#[id number] [facility] Coding Summaryon 01-10-2024 Coding Summary HTMLBase 64 SsikpsuzXRv3hQc+PGhlYWQ+PE1 KZJLkD14bwGPsmE8xU7GHBBlSSw qeLICQTSbFTsHpwmBaSO7pwMTsL XJu IC8+NM7tNLQkKqfniOZyr7I0qQS 6F73vgg7rYYwpxNG5XRShVjDncn hkr5qzzVk4KDjpFxzjIbIb RGZzxC50XXA5uT55Wb87hFOwaOR qr2uwwJt1KfTuDHFvPXX8eCjhLM kmu8BsXHPkA48ucCEzw2Y0 SANarDkecAYmXfVnnFQ7dX9gNLm cgenxg9jmfvzxNhl2ww85eSNee2 T3kTP9U3AwdnJ9OYVmmKOz GumqyNNMrH3pannep4jndeljIgK rKMDsYZe8RQs0TBFavQwhAiLxEZ 07VLP7EGQkaqZyJ9BgCWDh yPbaBwQ7m2T6Ym1FL8OFDquuE4Z NTUFSWTwvdGQ+NS11ty44I5QmZx bdUwr6YJAfHIK6gUE1sH2f BULgMKjmc4F1qWD4C2BznvOtvc7 ox4aoUSCuZZmoU48mzSKyh1O9RG UsbUE4CQHwmNkvXbVawO26 Oyc+AZJbnVvpg6NbXtiea3mlq7m ofEi6MbnfZYAfejVdtMjaMGD4t2 QhXb4bSLAinJE9mGP8iW2f UuAhMxJ8HEatN533BrCkwYSbPuh jK24zG9OcfRT+ZIDeUnj7FFQmeW vmJT3uL2AoGUOmpuhbrYAl aKbfPA6bKFTmkefrCAXckR5aQOV iN3t8KvPpDtW2TQlvI6EfRRCiun faXa79eI9lTiFtHvY9DAzb L9IavrK4XIImmSDpGKuhHSN7U78 qx4V7SIOjZVEeTSR1cAE7gD5hhS lnbjogbGVmdDsgdmVydGlj JAykKPokS530DRSihHisWsPxHIa uZyBEYXRlOiAgMDQvMTcvMjAyND wvdGQ+YOIuVNG6qJlpGMOt eHZlUQyeRj0htYmieBzjXG4sBVL zkmlrXYGpsI8xYGYroOUyvCyeJT 0tKBWnydynr853SnSqGRG8 DILkdQNyQ4RdlA6pMnOlTUUoXXT bP0DpmXYrOYirS996HUabUzZ9KG GvcrVcR2BfQOQgvKqgYfA2 c0O3Qk1Eg6AtqybyH5JjrDOoCdA ySrodKOc7I8UiSutxcXK+PC90YW SyJV79VGm6RVM5iJcxJOtm HPRoN2AekF3wXvLfBATnJZQbFla +PHRhYmxlIHdpZHRoPScxMDAlJy AonIxfTT1mUq9pDDMhYYWe uTxgvSAjKuAsh5xtEGSzBAxhOZ0 beHrwV6RnxMX4ASRga4e9Wm68E2 1xT6PtaLX+GHOkjJA3bVM6 jL4vKtPhQlL4XJrfT131LrOnlUN dEkebi7rcr3fwbRy0ErZ9EPNnvx IxaRlkQMC1c0UoNx52G65y IHdpZHRoPSIxNSUiIHZhbGlnbj0 sdQ5fTp6+KFNluYW2aRW3tR5kAg BrWsE6UHhnN575GxVtcGGu Seotd9ckx5oyiPx8LdTrKVRclpI swXrfYDC7n8AwAp21U1PyjMpmb6 BbVpd6ul83aBWvm9E8tSM9 K8DgFXMcyagveCMatHlmPW7rWPV kfznmFYPegF0iFJZrZ2n9GgAbZt L1RVmkC1NoxyI6GZFudZAs ENAlvYSFtB9bcekpt8chudonUmX jTAOtDBs1FNo2VQXlaMypWsPvLV P5IfJ2LBD4ySXfdZ3vaAhx nnzqgU4hIrc+TIN3lRFteIQUNP8 lOjwvdGQ+XZLvIIV6oPiaXGleBX KkvT6jRXEyF3z4UcKqQyD6 FGxrW7HbydB4ORDiiJImHZUahAO OgZ4znuwci2hberliHsKuACGcEM k9KDf0ABYwxCbfNqCzPWF3 IiU1YYN2hCPovM2ntBoffnhtwR4 wOyc+LcrrxCzoQWF1RCb1F5QoKw m5VWBppNxuON7baTYsEFyj Uz5xrLbchNaeOM8yGECjdtcyg91 0DaKum5tnTMTmpNBpOPlbYAJ7Q1 1vq8X6DEVnMIJcSWG5tQA8 hE2hdVkgryoqmEQswIgxrgEfhFf iZVyrIJexS048RTTekLxmMjVeTI d0S8JtHln1MNJejShsFW9g lRAfICgzXg3beLbicQziNU3gSNY bkzrbw489HoUhw6bbQMHgiSPpHX cmXOI0S44uu1A1TVVfYJPe FLW3eWG6xX0ijBfvypajxJEeqSy ebnIcbJjzIYokTWmhR567UTEgiI lmQkTxyAj4I3LbAxp3LYJy pCtcIW7ksQXhPAquMh6sxDhiaYc aFN8jWJJdwipho347ZdOsi9vqFG ZxqPWjGKxnPIM3G79dk8K7 SBJrBICwOIK5mMS8vJ4ofJbapyl gbGVmdDsgdmVydGljYWwtYWxpZ2 46IHRvcDsnPlBhdGllbnQg LLtbQWr7Y0YlGfednTC+ND03PJT uJT52nFZhmWLas9nbqPb0DfBrMX CfHZB3lVjuMZfdt7OlCCTw U18orJCqs0S9NVKihZevxRYpBbT gaJV5eX3nNZoxdlexe8riyhnmQl pxj6yjkd26cP46Y08mUGzg IJPhQYJaVKIvYDZdeVytlb8keO5 wIi8+SFNwrZX0uVR2gY9oIQOdBm L4ESilA518TdJzeSUtKolx a3nhk1lahPj2IzL3PLZrkvNsxFk kAVY8a5GhUa39J42wJFomAKXeWS QvQDPkGEQitXibpg5iwW9a Ii8+GJXieGG8hVK2eF1gMeOgYeM 4MAoaS421TdVfvGIvBcmzJ09oQ6 JvdXA+FRClIet0QAKueLhq CF4efXVdJKviKk5vECO2QeFoEnZ vGBjuC3PcKPNfzbiotvewuZH9JL AjYISoiG62Eh7phJnyYWLi vIZCnP9ultibh0znxmroBqIlUXB pKGw1UGj6WKHskPskVkMgOKL9Wu W5ENA0rATtsK1lfThojsfz tS7zU0GrCEBkdpuzDf13jF8rSoM qLrA5ZHzxCbx+AfKZHwcnC9DLKY cMTeTIEMT8B6FcCjh4LRZn yTpfSF7ajPJyFWpoJf4luQwswRa xKP4wTIImpmehFMOobJ5dDGKpzC PclLrxBT3uPLHbvdcyd907 MkTvIWH2PWIomVBeG5NooI9gYyN hQYRsRBPgC5BwaSMeJZnwQ331EZ fcNuC5FWAkgnBaD3WaVCLc nTtwEiY6o7R5Gr3fTD7bRo7yERj 6NC23CG06wQYck0H8zJJ0S8DjYQ RbqgvaxdpbnHT9APOjIPIs nT13mYNlPUahSd1cu8V3q734YBY pUBYarH62Ew0twWcxWVBatJIRtW 4tnzdzo0hyjbgjSwSeQKGn EOz6VOv8ZJVidPupPgCfHPE0ZaM 4ZRD2qCEwgM0yqSzaqxnazP8oCh c+VpKfDZYbnkE4X3OzOna4 ABZxiNmyFJ0tuAVeDRmgNj0oyFl gwPjnQY7fHNHjmjzfFOQirM8nZF GptMIdxSyaNJ1hXRZymfyz s465VwPjGOM7RWIneHUcY0TbpB2 rOaPeCPMrCZDsF9EphXCiCLfcE3 99THkbZoB7KRPhmfZtK5Ny ZLOykPqqPsL5n3H8Et6FKL9HTGD 8L9MjOel7THXjyNrxRL4ycSRiSY kkKf1jfEeekKcwMZ3xEWKj guwpTHGuoY7zJDHweWJeuRgqZS2 cFWCxtomxd007AbMjVGB8KAIakY FtX4LxbE7yFvQtPUIbZJNw P6VxnCMzJHvhQ097SYlgJtQ0BTY tvdCqO6KsTLZirGkzCxH0j4F8Ie 5PUDwvdGQ+RR74fw72P2Bz CxjpCaq0VLCyUKG3xGI9cL7rBIV lJNpsx8P7hMC4G2XrjxQryr7dg5 anHNNqKQkwG43ecYTad5C0 RGGwaCP7XAOswWptYaSneM08Bbh +DEYrgNwbo0QfCpusw1mwd4tetZ l5IcOhLVStrrTxzVycYLH3 n4YvTh00V63eWGxcGRDoJJKxIQO iZDRfjVryij6uzA6iMh6+PGNvbC S1xTY2dM0vGkRgHqU5KLzv M311PfRrrAChRmwxd4ipy3abxWn 7KkOeJOVxfxYenGcoNFV6m6JvYl 45Y6EdlCbcg7TgLhc4rm67 dIHhr1U4kNJ5C5QkLDWzighpxWJ zdAcmBE4yCPXcdrccJTVvxT2bOD QtM0r8FhKaKoD4TFabZ8Kc emL7AMKrbUZfXOToqHYQdE2xzng ws5xlrrglMjLyJDEzXZs2HYi9YK UzxYroRaVsKAB4YbF5DPF3 xOSvpZ5wqZsromayfV6vGsr+UGh 0o6lphKFcYH2vcDG5AE42KD79pB Goz7G9hHQ4P0VnDOOigsxe lnmesLP0JPFyICKrwF04Zg3ztPx yQg9nUDQyICQ4AXUeuSRwX2RukF 3iTkHgAIUzCNHzA3WjjGEa MZhuN666XRitBwN3RVWuzlBwK5E fPIDtmHcuOqJ0o2N4Ow3RMF21VK 58LS63tHPbt1T0rNY3S0Sh YLMszzevntjgkXL6BHVtJEDkzK6 5Sh4wyUmoBt1eAELeYTC8VZHldJ ZsT8MirN1oByLmOHJxEQRn H3HvjAYeQErgR662PHnoIwZ6ZBO mkuVtX9GuYFOucBkkCoZ5j3D0Lg 9IAk47ON29TB59vYTdy6H4 gCH0H2HhFMIbhoqdfslmdOU7DYY wCXGetX76Id5jcZmeQv3oLJVcRL T2AHZdsENjR7ZimM9fUgJt UDWzZNWqJ7JoqSAtQNdiO937ELo dLmC6PLPmdwYiT3EdNNKktKilLm J0p0M3Rp1KBCitcdh7Z3Fe PjwvdHI+MY58GUKpUA69hLUdnCC uo5aocVo0ObRtDZVbNRA3oOngML muj8KrSRQtL91ibJXqx7J4 IGN (more content not included)... [facility] Coding Summaryon 01-09-2024 Coding Summary HTMLBase 64 NlvjnqpzIQd3aGg+PGhlYWQ+PE1 CSVZoG34kvBTgkK2yK9CEFTdFWb tiPZPTGHmQMyKkuuXyRA8ebZXjD XJu IC8+UT1gYBOuFejklHBqs0J1eKI 5O58fxv6pKOsbpMJ1QTSkTgTkkg qnx4rnvPk5ORqtHigeXoAs AFGgkO81YYH1lT51Lz33fAZrlNO nc6ickBb4NiKcYLMtSQB8mGevTF ktj5DfEPEeT94dmXYhd3P0 RLZssQxuyKAoGyBwpTN3cB8oWUz yzargj6rorpgvKcs1hq43dJSma7 Z7cVW4T8EukkL8NYWpqDMx AnpfmZSRjS8ydyeoy1gmdzhmUrA dQUNvEXb3EUt5SVUaoVhuIfCsDS 41NCF3EWZejuWjY1XfIQXr zVvzReG2s6B2Vg1CT4IPOihqE8L NTUFSWTwvdGQ+BA30bm19L4StXj olNzo8WWXyXSI1aDR6qO9s XQZoJNvnu2W9iBO3A8LuqvClgd8 iy8zzUHUkWCvzV45hwZAvn4C4HC JlmHQ4EFRbtGlgZoNjaH30 Oyc+XTGyvSvhi7FuBmhjw6qiy4b yeVj7MuwkPVDolvVlrQbfFKA7r6 AlKu6aMPQzkOB3jNJ4tC4l LhAcXoW4DRaxL534EiFfgIFqIxh zP74tA7YxbJN+MJDiDym9ZMTarH edXS2cM7DdNULadmdbuOMm eYkdUH6rOHTqtjmrSVQoaP9qVCY uK9s2OoFiHiK3QNxnY0TzRTKtqa gnOb19wL1xGoCfWdC2SKcr C4DofvB4AVHglKYgHKfsJTY7H78 wr5J4URKhZNRjOOV1uOR3fR1ojZ lnbjogbGVmdDsgdmVydGlj QAtlVVgxX722XVHqfPahOtJrLOh uZyBEYXRlOiAgMDQvMTYvMjAyND wvdGQ+BIGnJNM9jIpiFRQe cNRtAOrvJo6bcMpxpOgiGV2vPTX sikgwHHEauC9aCDLkfMTgyGlqKR 4bAFHcsfmij242OuNzHOS7 IATfzSQoZ0RylD5aGnJaVTNwCFI tO5TqbQOsFVxxO997WCtfXuT6FH SwxxHkT3QiNVNtpArnCiV5 m3E4Xk3Nv2HkvgofQ9MhuTKgPwM tZwepVAy7S5QbXlpfbQF+PC90YW MoBO68TBk8XDQ4fCbrXTfl JHBlK0FfzW9fZuGkRFZuDNBkIdh +PHRhYmxlIHdpZHRoPScxMDAlJy LbiTayGS0kIa7gCJJgDWFu yPhexKGmMvEya7ncQJBdKWitWD5 ntHbzH5CzkXN1CMPxv0e2Uu23V4 1jS8WpaKQ+PNYwvJC4pXL1 jY0wJgWgIhX4MGpuN296CpMnjIY zQyxoz9ovs0wvjRh3DoI2ZHDyfb VjmRhiYRE9m4GrLq05L32g IHdpZHRoPSIxNSUiIHZhbGlnbj0 ebH7jUi0+OHAzzHA0qYI5aN4mSw OvNvG6QCjhH182GgHaoYSc Jvygx1gqj2ztwDj2BnOeNXJadjM xtHyjGJS0q8AqXr15I4DwfUrzt2 FdNuo3xg09lNZgc8C6cZT5 S8SfTKLgwzopeIHmrOgcRG9fQLK lmjnlULEjcY3yBXAhY3t6NwXqXm K5LJvoQ9MdgcF0FSQlpOYl USJzxPRVxB4xdtfqy5kwgngwJqG cUYYzXJj7PQo6ZOMakMmxHpLbTO U4HdI0VFX9qTBeoI2twElq unvvgM2dTfu+XNS9cBRbhMTOGC2 lOjwvdGQ+HXLzJWS6gUsmPWugUH DrpP9oINCyO5j8OqIjUtA1 ZGlvD0GulkU6KPHkiEQpPVYmqLW TlJ8lptpaq9goqcemSwQoRQIoWS z8NAa7QDNseKgiXpAoFCS9 GyO3GWK3pJNpgN1mhXxefcoqwW2 wOyc+AfjjnClzMSJ9NIf9Z2IlAc a1VMAutQmlIC4wwPWkYRac Qz4cjOjkzKhtQI0dMZRyftnty16 0ZvIro1ogVQXdjFQoTXdhWAA0U1 4zk2W7ZORpJWOjGBV2xDY6 aR4brShbrmyhpQEjvLlqhcFzqBa rFOohCVvaY305YALymVsnDgCfRZ k7Z9FwHvd7VNIsgTgzSS7m lJDjOJixKs1ypLpqdEviZJ8sUJX mtiwft623WtMim0xmJGVmbIUdUQ oeECL0H92fd7X6ATJtSYNv QXF8pKL6dW9dcHcsritscXIzxRd emtKxyMmkIYqfSFhyU801BVDdeO aqUcFgcSn1D8ZvGwz7VOKd wPmtWT8rsOVpWXpvYt0thEiqrXg wMK5pYMYnbbbvx071BeCme9qvAH BomNClUBjkBPH8F76dw4G2 IBOeYRBtWPJ0rPO5kN8ioOumesf gbGVmdDsgdmVydGljYWwtYWxpZ2 46IHRvcDsnPlBhdGllbnQg HDykKXx5V8YaGshyzUG+TB04QAT aMQ22nSDzcKIah8ljyKn4FvBlJQ HeFAI3cXouIKzyj3OxXZUa V65lzVGle6V2VKIxeIexzBGnNxD kpCL7nF3nGHfkvxfha0qnmokfKr ity7iomw22uT51K42aLTmu WRQgKBGqFOWmKKHcrCxzsy3gtZ3 wIi8+ROFhrRO7sGG1nE3fQEVoQf J0RPscS849EuRrfJSdWpdn p6buz0matHc3JlF5ATWshvCovAu cMCI4j2PoZo25M64gFVpeVOZmNC WcQAIgLKWkiGnqcu5ikY9z Ii8+DXZcjJZ4hNV8aV4vGfKiNkB 5BGnnP795ApOxbHYyMmtfF84eY8 JvdXA+SCLzYso3GGGebJgu ZJ5gmOGkXOrmEk3bEMQ8SfFbUuG hFTihH8XlVGPkrtsixhchnPW5QD ZvTFKfzW92Ze3dpWjqIIQv jGJRaK7zgyetr2xgohtmJhHxVBY eICg0GTj4VJXnyYdeTkOwYKI6Jp G9MKM5wIXgzG3jxUsnnltf vD7jS6UxKOZrecelMa46eH9aHqN pDyL9LCknRyp+DwPTPrsgM2ECMJ fBHvQCIZS2X0HpWbw5ZQKm lHhoUF1cmERhOXmiCn0gnExnrWv lFC7iTBTiwrgdHLRfsK2pTJIeaK YapUrrFD3kCCQbhqqef122 QwNnQHG8GULziNFlQ8UadL9iZqR eYWYnAMHaQ3GauTKbKYccH039GD grBlN6IKQionYyO5VkVGAr iDcwJzQ7o7I4Qn2lDJ5iTa3yTFj 2OQ87RA30dAKrd0P9fTE1U1JhGK LqvwgctgiyrNS9JMPuXZUt oF67sAGtFMyyWl9ba5G7x044OIG rBSIkiJ68Ze5ufMwgQSVmhUDQkL 9revbmq7cbhgbbAgSxJEWh WKx7FRs6GESzuDphVsUiIYR0KwG 3PMF7uGFcdO4nlUosemhcnV2rBt c+MnAjNOJlphT4H8FgRyu4 GZPhuCpvIV0bkMIhEPgiHq0zfMi cpDagUN6pELXesclmFYXjyO9zWV IknFWmaLpgBL2vYPPacjzq u990FgUqEZA8RXAqqIKzN8IaxO4 sCcTtBXCvTOArC4VtoLSnZRytV2 94FNckLiI2BOJucbNcD2Vs EZZabFrbVcL1f6I6Kk8BTH4WNVJ 9T8HcNoo7KCPzxLmcUG5coZAeFN nzWn5bbLdodCnfXK0ePYFg xdvsCDAnyS2eXLUayJPedEzsSJ3 wXUHvvjzqb652WaLsZPH6BPSmbE EuA4ZcrW9aPcOjCAVnYCEx L2FspFClKJdvP443TEvlGzR3TES lsaFfS5QaRVCwsRpmYhU9d6R5Ce 5PUDwvdGQ+KM17wz63B3Ld VpwqRxj9QUUxTVR9mFK2kI4rGNJ eYNnaz0K9mVP7B7NziwEdgn9tn0 xjHXRfHMniJ66ysAQlb3I1 MIOqxTI8KRGtnSeiEzStiX20Mts +RJKhlSxxh7VdMmgxc5ycr5gwxQ h3GtMoMDXuzyWypWniJOZ9 g8StVv60Q32uYNcuGUAoTINdDYT gCXTnjSazvx3smD5oBt3+PGNvbC F8iMT1jE9oRwZfQpT7QJcb I940DcCbzKErBumrt0wrp2pvnFo 8JeGcAVPzxkHwyGbsVTY0i7ViNp 94N1BxmZvny9RcKwt4qy37 xOMoz0J9iMU4M8RqJRJgdjzwdMR xtRmaCA3tWHIthrjmBNXibI7hHN BwT2m0JxNqDdL8YWdjU1Pp oqL4VJVceMMlYAQewBDHhL1dhzi vn1tlrhgeItRhBUCnADa8IHn7YQ AxnNxnFkGlAPI5HfR6XJK6 qRApfD8ypHsagrikbK3hTyl+UGh 4q5tihZSkYD6rcKT3OV47BR52nD Eig1E8fZD4R8TiUROecjne txnptWW6IDJbKVCjmT03Qr0jwOt uYy8fZDWjQUT6VBTyhBHuW1SkxG 5cJcQrOJTlIEOqS6WcfTKx KWmaN200JKtkSmT7JHJfkbOqL7J sFFWeaKogXvK3k8A0Kl5OOG66FD 35BT77pQUcy3K4tKG7H0Eh ZQLrfchxnaioiYK7ZVJpLDQcvM8 4Mh0lpUflRd9aAVScWKF8PDPotY RcT5LntG9oGbEwGANiHOHa O5JbrGJuVFqtI824SZutAbA3NRU npbEhE8YwNSBprUvbScW0v9R5Er 8WQy21MU15RL37fVVtk2F0 bCV5F6IpORMgrgdedahvjLW3KSC sWCCurB04Ui2tkEhoOx0lIKWyUX A1EMMfdZHxY3OdtD9wOtOt ZEHcUWThR0EscWLvFVpoO100WAx [id number] IGN (more content not included)... [facility] XR Hip Complete Right w/ Pel vison 01-05-2024 XR Hip Complete Right w/ Pelvis EXAM: XR Spine Lumbosacral Complete w/ Bending, XR Sacrum/Coccyx Minimum 2 Views, XR Hip Complete Right w/ Pelvis HISTORY: Low back pain, right hip pain. COMPARISON: Lumbar spine study dated 03/29/2015. TECHNIQUE: 7 views of the lumbar spine were obtained to include AP, lateral, both oblique, and directed lateral lumbosacral views as well as flexion and extension lateral views. FINDINGS: Vertebral body heights are grossly well-maintained. No significant disc space narrowing. Mild degenerative facet changes bilaterally at L4-L5 and L5-S1. No obvious spondylolysis. No definite acute fracture or dislocation. Slight convexity of the lumbar spine to the left. Vertebral bodies are similarly and unremarkable positioned on flexion, neutral, and extension lateral views. 4 views of the sacrum and coccyx were obtained. FINDINGS: No obvious displaced or deforming sacrococcygeal fracture, small undisplaced fractures may be difficult to identify acutely. Mild degenerative changes about the sacroiliac joints. No definite acute fracture or dislocation. Mild degenerative change about the hip joints. Two-view right hip and AP view pelvis study was performed with 3 images obtained in total. FINDINGS: Mild degenerative changes about the right hip joint with minimal change about the left hip joint. Mild degenerative changes about the sacroiliac joints. Mild degenerative changes about the visualized lower lumbar spine. Slight convexity of the lumbar spine to the left. A few calcifications overlying the pelvis compatible with phleboliths. IMPRESSION: Lumbar spine study demonstrates degenerative changes as described. Findings appear similar to the prior exam. Sacrum and coccyx study demonstrates degenerative changes as described. Right hip and AP view pelvis study demonstrates degenerative changes as noted. Follow up as needed. Final Dictated by: Gunnar Beckford MD Dictated DT/TM: 01/08/24 8:43 Signed (Electronic Signature): Gunnar Beckford MD 01/08/24 3:46 pm Technologist: DARLEEN MALONE [facility] XR Sacrum/Coccyx Minimum 2 V iewson 01-05-2024 XR Sacrum/Coccyx Minimum 2 Views EXAM: XR Spine Lumbosacral Complete w/ Bending, XR Sacrum/Coccyx Minimum 2 Views, XR Hip Complete Right w/ Pelvis HISTORY: Low back pain, right hip pain. COMPARISON: Lumbar spine study dated 03/29/2015. TECHNIQUE: 7 views of the lumbar spine were obtained to include AP, lateral, both oblique, and directed lateral lumbosacral views as well as flexion and extension lateral views. FINDINGS: Vertebral body heights are grossly well-maintained. No significant disc space narrowing. Mild degenerative facet changes bilaterally at L4-L5 and L5-S1. No obvious spondylolysis. No definite acute fracture or dislocation. Slight convexity of the lumbar spine to the left. Vertebral bodies are similarly and unremarkable positioned on flexion, neutral, and extension lateral views. 4 views of the sacrum and coccyx were obtained. FINDINGS: No obvious displaced or deforming sacrococcygeal fracture, small undisplaced fractures may be difficult to identify acutely. Mild degenerative changes about the sacroiliac joints. No definite acute fracture or dislocation. Mild degenerative change about the hip joints. Two-view right hip and AP view pelvis study was performed with 3 images obtained in total. FINDINGS: Mild degenerative changes about the right hip joint with minimal change about the left hip joint. Mild degenerative changes about the sacroiliac joints. Mild degenerative changes about the visualized lower lumbar spine. Slight convexity of the lumbar spine to the left. A few calcifications overlying the pelvis compatible with phleboliths. IMPRESSION: Lumbar spine study demonstrates degenerative changes as described. Findings appear similar to the prior exam. Sacrum and coccyx study demonstrates degenerative changes as described. Right hip and AP view pelvis study demonstrates degenerative changes as noted. Follow up as needed. Final Dictated by: Gunnar Beckford MD Dictated DT/TM: 01/08/24 8:43 Signed (Electronic Signature): Gunnar Beckford MD 01/08/24 3:46 pm Technologist: DARLEEN MALONE [facility] XR Spine Lumbosacral Complet e w/ Bendingon 01-05-2024 XR Spine Lumbosacral Complete w/ Bending EXAM: XR Spine Lumbosacral Complete w/ Bending, XR Sacrum/Coccyx Minimum 2 Views, XR Hip Complete Right w/ Pelvis HISTORY: Low back pain, right hip pain. COMPARISON: Lumbar spine study dated 03/29/2015. TECHNIQUE: 7 views of the lumbar spine were obtained to include AP, lateral, both oblique, and directed lateral lumbosacral views as well as flexion and extension lateral views. FINDINGS: Vertebral body heights are grossly well-maintained. No significant disc space narrowing. Mild degenerative facet changes bilaterally at L4-L5 and L5-S1. No obvious spondylolysis. No definite acute fracture or dislocation. Slight convexity of the lumbar spine to the left. Vertebral bodies are similarly and unremarkable positioned on flexion, neutral, and extension lateral views. 4 views of the sacrum and coccyx were obtained. FINDINGS: No obvious displaced or deforming sacrococcygeal fracture, small undisplaced fractures may be difficult to identify acutely. Mild degenerative changes about the sacroiliac joints. No definite acute fracture or dislocation. Mild degenerative change about the hip joints. Two-view right hip and AP view pelvis study was performed with 3 images obtained in total. FINDINGS: Mild degenerative changes about the right hip joint with minimal change about the left hip joint. Mild degenerative changes about the sacroiliac joints. Mild degenerative changes about the visualized lower lumbar spine. Slight convexity of the lumbar spine to the left. A few calcifications overlying the pelvis compatible with phleboliths. IMPRESSION: Lumbar spine study demonstrates degenerative changes as described. Findings appear similar to the prior exam. Sacrum and coccyx study demonstrates degenerative changes as described. Right hip and AP view pelvis study demonstrates degenerative changes as noted. Follow up as needed. Final Dictated by: Gunnar Beckford MD Dictated DT/TM: 01/08/24 8:43 Signed (Electronic Signature): Gunnar Beckford MD 01/08/24 3:46 pm Technologist: DARLEEN MALONE [facility] Telemedicine 08-23-2023 Telemedicine [id number] Lior Green in 1990 F Date Provider Department Center 08/23/2023 [id number]-[facility] TELEMEDICINE [facility] No family history on file Level of Service:54104 SC OFFICE/OUTPATIENT ESTABLISHED LOW MDM 20-29 MIN [facility] 37on 07-11-2023 37 Follow-up with famil y medicine as directed. [facility] Telemedicineon 07-11-2023 Telemedicine [id number] Lior Green in 1990 F Date Provider Department Center 07/11/2023 [id number]-[facility] TELEMEDICINE [facility] TELE [facility] No family history on file Level of Service:93955 SC OFFICE/OUTPATIENT ESTABLISHED [facility] 10-19 MIN Reason for Visit and Comments: Headache [52] Normal [facility] HEPATITIS B SURFACE ANTIBODY QUANTon 09-01-2022 HEPATITIS B VIRUS SURFACE AB (MIU/ML) IN SERUM 3.83 mIU/mL Normal [facility] Comment on above: Result Comment: INTE RPRETATION: NONREACTIVE<8.00 mIU/mL INDETERMINATE8.00 - 12.00 mIU/mL REACTIVE>12 mIU/mL Performed By: #### L [id number] #### [facility] (BEAKER) [address] [place] [address] T-Spoton 10-18-2021 T-Spot. TB Test Normal [facility] Comment on above: Result Comment: [facility] [address] [place] [address] (NOTE) T-SPOT.TB Test Results --------- T-SPOT TB Negative Normal Value: Negative A negative test result does not exclude the possibility of exposure to or infection with Mycobacterium tuberculosis (M tuberculosis). Patients with recent exposure to TB infected individuals exhibiting a negative T-SPOT.TB result should be considered for retesting within 6 weeks or if other relevant clinical symptoms indicate. Results from T-SPOT.TB testing must be used in conjunction with each individual's epidemiological history, current medical status, and results of other diagnostic evaluations. The T-SPOT.TB test is qualitative and results are reported as positive, borderline or negative, given that the test controls perform as expected. In line with the Centers for Disease Control and Prevention's 2010 recommendation to report quantitative measurements alongside the qualitative result, the laboratory provides spot counts for information purposes only. The T-SPOT.TB test should be interpreted as a quantitative test. Panel A Spot Count (Corrected for Negative Control) 0 Panel B Spot Count (Corrected for Negative Control) 0 Negative Control Passed Positive Control Passed Performed By: #### R UBI, FANG, JAGDEEP, VZI, TSPOT #### [facility] [address] [place] [address] Braid Maker: Isreal Astorga MD Measles (Rubeola) Imon 10-15 Measles (Rubeola) Im 6.05 Normal >1.09 [facility] Comment on above: Result Comment: Interpretation: IMMUNE Reference Range: <0.91 Not Immune 0.91-1.09 Equivocal >1.09 Immune Performed By: #### R UBI, FANG, JAGDEEP, VZI, TSPOT #### [place] [id number] Braid Maker: Isreal Astorga MD Mumps,Immun,Abon 10-15-2021 Mumps,Immun,Ab 5.42 Normal >1.09 [facility] Comment on above: Result Comment: Interpretation: IMMUNE Reference Range: <0.91 Not Immune 0.91-1.09 Equivocal >1.09 Immune Performed By: #### R UBI, FANG, JAGDEEP, VZI, TSPOT #### [place] [id number] Braid Maker: Isreal Astorga MD VZ Immunityon 10-15-2021 VZ Immunity 2.55 Normal >1.09 [facility] Comment on above: Result Comment: Interpretation: IMMUNE Reference Range: <0.91 Not Immune 0.91-1.09 Equivocal >1.09 Immune Performed By: #### R UBI, FANG, JAGDEEP, VZI, TSPOT #### [place] [id number] Braid Maker: Isreal Astorga MD Rubella Ab, IgGon 10-14-2021 Rubella Ab, IgG 279.3 IU/mL Normal [facility] Comment on above: Result Comment: REFERENCE RANGE: <5.0 NON-REACTIVE (non-immune) 5.0 TO 9.9 EQUIVOCAL >=10.0 REACTIVE (immune) Performed By: #### R UBI, FANG, JAGDEEP, VZI, TSPOT #### [address] [id number] Braid Maker: Isreal Astorga MD Basic Metabolic Panelon 09-0 Anion gap [Moles/Vol] 11 mmol/L 9 - 17 mmol/L [place] Bun/Cre Ratio NOT REPORTED [place] Calcium [Mass/Vol] 8.7 mg/dL 8.6 - 10. 4 mg/dL [place] Chloride [Moles/Vol] 107 mmol/L 98 - 10 7 mmol/L [place] CO2 [Moles/Vol] 23 mmol/L 20 - 31 mmol/L [place] Creatinine [Mass/Vol] 0.59 mg/dL 0.5 - 0.9 mg/dL [place] GFR >60 >60 mL/min [place] GFR Non- >60 >60 mL/min [place] GFR/1.73 sq M predicted among non-blacks MDRD (S/P/Bld) [Vol rate/Area] [place] Comment on above: Average GFR for 30-3 9 years old: 107 mL/min/1.73sq m Chronic Kidney Disease: <60 mL/min/1.73sq m Kidney failure: <15 mL/min/1.73sq m eGFR calculated using average adult body mass. Additional eGFR calculator available at: http://www.[employer]/multiple_crcl_2012.htm GFR/1.73 sq M predicted among non-blacks MDRD (S/P/Bld) [Vol rate/Area] NOT REPORTED [place] Glucose [Mass/Vol] 91 mg/dL 70 - 99 mg/dL [place] Potassium [Moles/Vol] 4.1 mmol/L 3.7 - 5.3 mmol/L [place] Sodium [Moles/Vol] 141 mmol/L 135 - 144 mmol/L [place] Urea nitrogen [Mass/Vol] 10 mg/dL 6 - 20 mg/dL [place] CBC Auto Differentialon Basophils (Bld) [#/Vol] 0.03 10*3/uL [place] Basophils/100 WBC (Bld) 1 % 0 - 2 % [place] Differential Type NOT REPORTED [place] Eosinophils (Bld) [#/Vol] 0.15 10*3/uL [place] Eosinophils/100 WBC (Bld) 3 % 1 - 4 % [place] Erythrocyte distribution width (RBC) [Ratio] 12.4 % 11.8 - 14.4 % [place] Hematocrit (Bld) [Volume fraction] 41.3 % 36.3 - 47.1 % [place] Hemoglobin (Bld) [Mass/Vol] 13.3 g/dL 11.9 - 15.1 g/dL [place] Immature granulocytes (Bld) [#/Vol] 10*3/uL [place] Immature granulocytes (Bld) [#/Vol] 0 % 0 [place] Lymphocytes (Bld) [#/Vol] 1.91 10*3/uL [place] Lymphocytes/100 WBC (Bld) 39 % 24 - 43 % [place] MCH (RBC) [Entitic mass] 29.7 pg 25.2 - 33.5 pg [place] MCHC (RBC) [Mass/Vol] 32.2 g/dL 28.4 - 34.8 g/dL [place] MCV (RBC) [Entitic vol] 92.2 fL 82.6 - 102.9 fL [place] Monocytes (Bld) [#/Vol] 0.46 10*3/uL [place] Monocytes/100 WBC (Bld) 10 % 3 - 12 % [place] Platelet mean volume (Bld) [Entitic vol] 10.7 fL 8.1 - 13.5 fL [place] Platelets (Bld) [#/Vol] NOT REPORTED [place] Platelets (Bld) [#/Vol] 246 10*3/uL [place] RBC (Bld) [#/Vol] 4.48 10*6/uL 3.95 - 5.11 m/uL [place] RBC morphology finding Nom (Bld) NOT REPORTED [place] Segmented neutrophils/100 WBC (Bld) 47 % 36 - 65 % [place] Segs Absolute 2.29 [place] WBC (Bld) [#/Vol] 0.0 10*3/uL 0.0 per 100 WBC [place] WBC (Bld) [#/Vol] 4.9 10*3/uL [place] WBC Morphology NOT REPORTED [place] Iron And TIBCon 05-31-2019 Iron [Mass/Vol] 92 ug/dL 37 - 145 ug/dL [place] Iron Saturation 38 % 20 - 55 % [place] TIBC 243 ug/dL Low 250 - 450 ug/dL [place] UIBC 151 ug/dL 112 - 347 ug/dL [place] Otheron 05-31-2019 Interpretation and review of laboratory results Abnormal [place] Vitamin D 25 Hydroxyon 05-31 Vit D, 25-Hydroxy 20.9 ng/mL Low 30 - 100 ng/mL [place] Comment on above: Reference Range: Vitamin D status Range Deficiency <20 ng/mL Mild Deficiency 20-30 ng/mL Sufficiency 30-100 ng/mL Toxicity >100 ng/mL Vital Signs Date Time Vital Sign Value Performing Clinician Inocente canela 04-29-2024 13:25-0400 Diastolic blood pressure 82 mm[Hg] [facility] 04-29-2024 13:25-0400 Heart rate 80 /min [facility] 04-29-2024 13:25-0400 Respiratory rate 16 /min [facility] 04-29-2024 13:25-0400 SaO2% (BldA) [Mass fraction] 99 % [facility] 04-29-2024 13:25-0400 Systolic blood pressure 145 mm[Hg] [facility] 04-29-2024 10:53-0400 Body temperature 97.4 [degF] [facility] 04-29-2024 10:28-0400 Inhaled oxygen flow rate 2 L/min [facility] 04-29-2024 06:46-0400 Body height 170.18 cm [facility] 04-29-2024 06:46-0400 Body mass index (BMI) [Ratio] 37.6 kg/m2 [facility] 04-29-2024 06:46-0400 Body weight 109 kg [facility] 04-19-2024 09:11-0400 Body height 172.72 cm [facility] 04-19-2024 09:11-0400 Body mass index (BMI) [Ratio] 35.9 kg/m2 [facility] 04-19-2024 09:11-0400 Body weight 107 kg [facility] 02-15-2024 11:55-0400 Body height 172.72 cm [facility] 02-15-2024 11:55-0400 Body mass index (BMI) [Ratio] 36.1 kg/m2 [facility] 02-15-2024 11:55-0400 Body weight 107.95 kg [facility] Encounters Encounter Date Encounter Type Care Provider Facility Start: 06-11-2024 End: 06-11-2024 ambulatory NON STAFF [facility] Work Phone: Start: 06-11-2024 End: 06-11-2024 Patient encounter procedure MD Santa Estrada II Work Phone: [facility] Work Phone: Start: 05-31-2024 End: 05-31-2024 ambulatory [facility] Start: 05-23-2024 End: 05-23-2024 ambulatory SANDRITA L FLORO Not Available Start: 05-23-2024 End: 05-23-2024 ambulatory SANDRITA L FLORO Not Available Start: 05-15-2024 End: 05-15-2024 ambulatory NON STAFF [facility] Work Phone: Start: 05-15-2024 End: 05-15-2024 Patient encounter procedure [facility] Work Phone: Start: 04-29-2024 Non-patient / Non-visit [facility] Work Phone: Start: 04-29-2024 End: 04-29-2024 Admission to same day surgery center [facility] [place] Start: 04-29-2024 End: 04-29-2024 ambulatory NON STAFF [facility] Work Phone: Start: 04-25-2024 End: 04-25-2024 ambulatory SANDRITA L FLORO Not Available Start: 04-19-2024 End: 04-19-2024 ambulatory NON STAFF [facility] Work Phone: Start: 04-19-2024 End: 04-19-2024 Patient encounter procedure [facility] Work Phone: Start: 04-19-2024 Registered [facility] [place] Start: 04-19-2024 End: 04-19-2024 ambulatory NON STAFF [facility] Work Phone: Start: 04-19-2024 End: 04-19-2024 Patient encounter procedure [facility] Work Phone: Start: 04-16-2024 End: 04-16-2024 ambulatory SANDRITA L FLORO Not Available Start: 04-15-2024 End: 04-15-2024 Patient encounter procedure [facility] Work Phone: Start: 04-15-2024 End: 04-15-2024 ambulatory NON STAFF [facility] Work Phone: Start: 03-13-2024 End: 03-13-2024 ambulatory [facility] Facility: [facility] Start: 03-12-2024 End: 03-12-2024 Patient encounter procedure [facility] [place] Work Phone: Start: 03-12-2024 End: 03-12-2024 ambulatory NON STAFF [facility] Work Phone: Start: 02-29-2024 End: 02-29-2024 ambulatory SANTA OROZCO [facility] Start: 02-27-2024 End: 02-27-2024 ambulatory NON STAFF [facility] Work Phone: Start: 02-27-2024 End: 02-27-2024 Departed Referred [facility] Start: 02-26-2024 End: 02-27-2024 ambulatory Peter Booth Facility:[facility] Start: 02-15-2024 End: 02-15-2024 ambulatory NON STAFF [facility] Work Phone: Start: 02-15-2024 End: 02-15-2024 Patient encounter procedure [facility] Work Phone: Start: 02-01-2024 End: 02-01-2024 ambulatory VICTOR M LUJAN Not Available Start: 01-25-2024 End: 01-26-2024 ambulatory Audra Reynoso 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 Facility:[facility] Start: 01-12-2024 End: 01-13-2024 ambulatory Alec Patel MD Facility:[facility] Start: 01-05-2024 End: 01-06-2024 ambulatory Audra Reynoso 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 Facility:[facility] Start: 12-15-2023 End: 12-15-2023 ambulatory VICTOR M LUJAN Not Available Start: 08-23-2023 End: 08-23-2023 ambulatory [facility] Start: 07-11-2023 End: 07-11-2023 ambulatory [facility] Start: 09-01-2022 End: 09-01-2022 ambulatory [facility] Start: 09-01-2022 End: 09-01-2022 Encounter for antibody response examination [facility] Start: 10-14-2021 End: 10-15-2021 ambulatory [facility] Start: 10-13-2021 ambulatory [facility] Start: 04-02-2020 End: 04-02-2020 Subsequent hospital visit by physician Yesica MILLER [facility] Start: 05-31-2019 End: 05-31-2019 Subsequent hospital visit by physician Yesica PITTMAN Comment on above: History of bariatric surgery; Health care maintenance Procedures Date Procedure Procedure Detail Performing Clinician Start: 06-11-2024 X-ray of left knee MD Jayy Estrada II Work Phone: Start: 04-29-2024 X-ray of left knee Start: 04-29-2024 Arthroplasty of knee , condyle and plateau, medial compartment Start: 04-19-2024 [place] X-ray of left femur Start: 04-19-2024 Plain X-ray of left tibia and left fibula Start: 04-15-2024 Antibody screen Comment on above: Order Comment: Date of Surgery: [id number] Result Comment: PERF ORMED BY: [facility] [address] [place] [address] PATHOLOGIST COMMUNICATIONS DEPARTMENT CHAIRPERSON GENO BENEDICT M.D. Start: 03-12-2024 Methicillin resistan t Staphylococcus aureus culture Start: 02-15-2024 Pelvis X-ray Start: 02-15-2024 Radiologic examinati on of knee Start: 05-31-2019 25 hydroxy includes fractions if performed Yesica Khan Work Phone: Start: 05-31-2019 Basic metabolic pane l calcium total Yesica Khan Work Phone: Start: 05-31-2019 Blood count complete auto&auto difrntl wbc Yesica Khan Work Phone: Start: 05-31-2019 Iron binding capacity J barrie Khan Work Phone: Plan of Treatment Date Care Activity Detail Author Start: 06-11-2024 X-ray of left knee XR knee LT 3V - NOT FOR ER USE [facility] Start: 06-11-2024 XR Knee - left 3 Views [facility] Start: 04-29-2024 Hospital admission [facility] Start: 04-29-2024 End: 04-29-2024 [facility] Start: 04-29-2024 Physical therapy procedure [facility] Start: 04-19-2024 Plain X-ray of left femur XR femur L T 2V* [facility] Start: 04-19-2024 Plain X-ray of left tibia and left fibula XR tibia fibula LT 2V* [facility] Start: 04-19-2024 XR Femur - left 2 Views [facility] Start: 04-19-2024 XR Tibia and Fibula - left 2 Views [facility] Start: 04-15-2024 [facility] Start: 03-12-2024 MRSA Culture MRSA Culture [facility] Start: 02-15-2024 Pelvis X-ray XR pelvis 1-2V [facility] Start: 02-15-2024 Radiologic examinati on of knee XR knee LT 4V* [facility] Start: 02-15-2024 XR Knee - left 4 Views [facility] Start: 02-15-2024 XR Pelvis 1 or 2 Views [facility] Start: 07-02-2022 DTaP/Tdap/Td vaccine (2 - Td) DTaP/Tdap/Td vaccine (2 - Td) [place] Start: 05-26-2020 Influenza vaccination Flu vaccine (# 1) [place] Start: 04-21-2020 End: 04-21-2020 Office Visit 04/21/2020 Office Visit Obstetrics and Gynecology Karel Palm DO [address] [place], [place] [id number] [phone] [facility] 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 [place] Start: 05-26-2019 Influenza vaccination Flu vaccine (# 1) [place] Start: 2009 Cervical cancer screen Cervical canc er [place] Start: 2009 Screening for malign ant neoplasm of cervix Cervical cancer [place] Start: 2007 DTaP/Tdap/Td vaccine (1 - Tdap) DTaP/Tdap/Td vaccine (1 - Tdap) [place] Start: 2003 HIV screen HIV screen [place], [place] Start: 2003 [facility] [place] [place] Start: 2001 Varicella Vaccine (1 of 2 - 13+ 2-dose series) Varicella Vaccine (1 of 2 - 13+ 2-dose series) [place] Start: 1989 Varicella vaccine (1 of 2 - 2-dose childhood series) Varicella vaccine (1 of 2 - 2-dose childhood series) [place] End: 05-31-2019 Cobalamin (Vitamin B12) [Mass/Vol] Vitamin B12 Lab Routine History of bariatric surgery 1 Occurrences starting 05/31/2019 until 05/31/2019 [place] Comment on above: 1 Occurrences starti ng 05/31/2019 until 05/31/2019 Cobalamin (Vitamin B 12) [Mass/Vol] Vitamin B12 Lab Routine History of bariatric surgery 05/31/2019 8:42 AM EDT [place] Cotinine [Mass/volum e] in Serum or Plasma [facility] Cotinine [Mass/volum e] in Serum or Plasma [facility] End: 04-02-2020 Covid-19 Ambulatory Covid-19 Ambulatory Lab Routine Once for 1 Occurrences starting 04/02/2020 until 04/02/2020 [place] Comment on above: Once for 1 Occurrenc es starting 04/02/2020 until 04/02/2020 Covid-19 Ambulatory Covid-19 Amb ulatory Lab Routine 04/02/2020 10:12 PM EDT [place] Glucose measurement estimated from glycated hemoglobin [facility] Methicillin resistan t Staphylococcus aureus [Presence] in Unspecified specimen by Organism specific culture [facility] MR Knee - left WO contrast [facility] Nicotine [Mass/volum e] in Serum or Plasma [facility] [facility] Nicotine [Mass/volum e] in Serum or Plasma [facility] Patient Education Know your Meds [facility] Work Phone: [facility] Immunizations Immunization Date Immunization Notes Care Provider Fa cility 07-29-2021 COVID-19 mRNA-1273 (Moderna) [facility] 10-29-2020 COVID-19 mRNA-1273 (Moderna) [facility] 10-01-2020 COVID-19 mRNA-1273 (Moderna) [facility] 07-03-2019 influenza virus vacc ine, unspecified formulation [place], [place] 07-02-2012 tetanus toxoid, redu [place] diphtheria toxoid, and acellular pertussis vaccine, adsorbed [place], [place] Payers Date Payer Category Payer Self-pay [id number] 2023 Unknown 2023 Unknown [id number] 2022 Unknown [id number] 2020 Unknown [id number] 2018 Unknown MEDICAL MUTUAL M EDICAL MUTUAL [facility] EMP xxxxxxxxxxxx 2018-Present [phone] [address] [place] [address] xxxxxxxxxxxx [id number] [id number] 2018 Medicaid [id number] 2014 Unknown [employer] xxxxxxxxxxx 2014-Present [phone] [address] [place] [address] xxxxxxxxxxx [id number] .[id number] 1988 Unknown [id number] 2.16.840.1.352587.3.579.2.196 1988 Unknown [id number] 2.16.840.1.342106.3.579.2.196 1988 Unknown [id number] 2.16.840.1.122646.3.579.2.196 1988 Unknown [id number] 2.16.840.1.642213.3.579.2.128 6 1988 Unknown [id number] 2.16.840.1.962695.3.579.2.125 9 1988 Unknown [id number] 2.16.840.1.693380.3.579.2.125 9 1988 Unknown [id number] 2.16.840.1.153084.3.579.2.125 9 1988 Unknown [id number] 2.16.840.1.847920.3.579.2.125 9 1988 Unknown [id number] 2.16.840.1.844806.3.579.2.125 9 1988 Unknown [id number] 2.16.840.1.419915.3.579.2.125 9 1988 Unknown [id number] 2.16.840.1.921129.3.579.2.125 9 1988 Unknown [id number] 2.16.840.1.155009.3.579.2.128 6 1988 Unknown [id number] 2.16.840.1.034968.3.579.2.128 6 1988 Unknown [id number] 2.16.840.1.333545.3.579.2.718 1988 Unknown [id number] 2.16.840.1.380382.3.579.2.718 1988 Unknown [id number] 2.16.840.1.647802.3.579.2.718 1988 Unknown [id number] 2.16.840.1.264454.3.579.2.718 1988 Unknown [id number] 2.16.840.1.718746.3.579.2.718 1988 Unknown [id number] 2.16.840.1.260259.3.579.2.718 1988 Unknown [id number] 2.16.840.1.071321.3.579.2.718 Unknown [facility] [employer] [id number] Unknown [id number] 2.16.840.1.748627.3.579.2.531 Unknown [id number] 2.16.840.1.481604.3.579.2.531 Unknown [id number] 2.16.840.1.948441.3.579.2.531 Unknown [id number] 2.16.840.1.674256.3.579.2.531 Social History Date Type Detail Facility Start: 05-17-2019 End: 01-03-2020 Tobacco smoking status NHIS Former smoker [place], [place] Start: 05-17-2019 End: 01-03-2020 Cigarettes smoked current (pack per day) - Reported [place] Start: 05-17-2019 Alcohol intake Yes [place], [place] Start: 05-17-2019 Alcohol Comment social [place], [place] Sex Assigned At Not on file [place] Start: 01-03-2020 Alcohol intake Current drinke r of alcohol (finding) [place] Start: 11-14-2019 End: 04-29-2024 Tobacco smoking status OHIS Never smoked tobacco (finding) [facility] Start: 1990 Sex Assigned At Female F [facility] NEGATED: Highlighted row [facility] Medical Equipment Procedure Code Equipment Code Equipment Origin al Text Equipment Identifier Dates Arthroplasty, knee, total, minimally invasive Uncoated unicondylar knee femur prosthesis [id number] FDA Start: 04-29-2024 Arthroplasty, knee, total, minimally invasive Uncoated unicondylar knee tibia prosthesis, metallic [id number] FDA Start: 04-29-2024 Arthroplasty, knee, total, minimally invasive Unicondylar knee insert [id number] FDA Start: 04-29-2024 Arthroplasty, knee, total, minimally invasive Orthopaedic cement, non-medicated [id number] FDA Start: 04-29-2024 Goals Date Patient Goal Desired Activity /State Clinical Notes 07-11-2023 to 02-27-2024 Note Date & Type Note Facility 02-27-2024 Note Education Materials Gastroenterology Laparoscopic cholecystectomy, Care After The following information offers guidance on how to care for yourself after your procedure. Your health care provider may also give you more specific instructions. If you have problems or questions, contact your health care provider. What can I expect after the procedure? After the procedure, it is common to have: ? Pain at your incision sites. You will be given medicines to control this pain. ? Mild nausea or vomiting. ? Bloating and possible shoulder pain from the gas that was used during the procedure. Follow these instructions at home: Medicines ? Take rveq-kqy-mlmhdkd and prescription medicines only as told by your health care provider. ? If you were prescribed an antibiotic medicine, take it as told by your health care provider. Do not stop using the antibiotic even if you start to feel better. ? Ask your health care provider if the medicine prescribed to you: ? Requires you to avoid driving or using machinery. ? Can cause constipation. You may need to take these actions to prevent or treat constipation: ? Drink enough fluid to keep your urine pale yellow. ? Take jjwy-spp-plrrvyd or prescription medicines. ? Eat foods that are high in fiber, such as beans, whole grains, and fresh fruits and vegetables. ? Limit foods that are high in fat and processed sugars, such as fried or sweet foods. Incision care ? Follow instructions from your health care provider about how to take care of your incisions. Make sure you: ? Wash your hands with soap and water for at least 20 seconds before and after you change your bandage (dressing). If soap and water are not available, use hand business office technology instructor. ? Place dry dressings as needed. ? Leave skin glue in place. ? Do not take baths, swim, or use a hot tub until your health care provider approves. - You may shower starting February 27. ? Check your incision area every day for signs of infection. Check for: ? More redness, swelling, or pain. ? Fluid or blood. ? Warmth. ? Pus or a bad smell. Activity ? Rest as told by your health care provider. Do not do activities that require a lot of effort. ? Avoid sitting for a long time without moving. Get up to take short walks every 1?2 hours. This is important to improve blood flow and breathing. Ask for help if you feel weak or unsteady. ? Do not lift anything that is heavier than 10 lb (4.5 kg), or the limit that you are told, until your health care provider says that it is safe. ? Do not play contact sports until your health care provider approves. ? Do not return to work or school until your health care provider approves. ? Return to your normal activities as told by your health care provider. Ask your health care provider what activities are safe for you. General instructions ? If you were given a sedative during the procedure, it can affect you for several hours. Do not drive or operate machinery until your health care provider says that it is safe. ? Keep all follow-up visits. This is important. Contact a health care provider if: ? You develop a rash. ? You have more redness, swelling, or pain around your incisions. ? You have fluid or blood coming from your incisions. ? Your incisions feel warm to the touch. ? You have pus or a bad smell coming from your incisions. ? You have a fever. ? One or more of your incisions breaks open. Get help right away if: ? You have trouble breathing. ? You have chest pain. ? You have more pain in your shoulders. ? You faint or feel dizzy when you stand. ? You have severe pain in your abdomen. ? You have nausea or vomiting that lasts for more than one day. ? You have leg pain that is new or unusual, or if it is localized to one specific spot. These symptoms may represent a serious problem that is an emergency. Do not wait to see if the symptoms will go away. Get medical help right away. Call your local emergency services (911 in the [place] Do not drive yourself to the hospital. Summary ? After your procedure, it is common to have pain at the incision sites. You may also have nausea or bloating. ? Follow your health care provider's instructions about medicine, activity restrictions, and caring for your incision areas. Do not do activities that require a lot of effort. ? Contact a health care provider if you have a fever or other signs of infection, such as more redness, swelling, or pain around the incisions. ? Get help right away if you have chest pain, increasing pain in the shoulders, or trouble breathing. This information is not intended to replace advice given to you by your health care provider. Make sure you discuss any questions you have with your health care provider. Document Revised: 03/15/2022 Document Reviewed: 03/15/2022 [employer] Patient Education ? [address] [facility] [facility] 02-27-2024 Note [facility] Clinical Discharge Summary PERSON INFORMATION Name LUCILA JACQUES Age 33 Years 1990 Sex FEMALE Language [place] PCP Provider, None Marital Status Med Service Observation Acct# Arrival 02/26/2024 22:40:28 Visit Reason Abdominal pain; ACUTE CHOLECYSTITIS Acuity LOS 000 10:25 Address: [address] [address] Comment: PROVIDER INFORMATION VITALS INFORMATION Vital Sign Triage Latest Temp Oral 36.6 DegC 36.6 DegC Temp Temporal Temp Intravascular Temp Axillary Temp Rectal 02 Sat 100 % 94 % Respiratory Rate 16 br/min 16 br/min Peripheral Pulse Rate 74 bpm 67 bpm Apical Heart Rate Blood Pressure 138 mmHg / 82 mmHg 109 mmHg / 67 mmHg Comment: MEDICAL INFORMATION Allergy Info: Magnesium; potassium chloride; ibuprofen Medication List: New Medications [id number], [address], [place] [id number], [phone] acetaminophen-hydrocodone (acetaminophen-hydrocodone 325 mg-5 mg oral tablet) 1 tab(s) Oral (given by mouth) every 6 hours as needed Pain - Moderate for 5 Days. Refills: 0. ondansetron (ondansetron 4 mg oral tablet) 1 tab(s) Oral (given by mouth) every 8 hours as needed nausea/vomiting for 5 Days. 6 EA, 0 Refill(s), take 1 tablet by mouth every 12 hours if needed for nausea and vomiting. Refills: 0. scopolamine (scopolamine 1 mg/72 hr transdermal film, extended release) 1 patch(es) Transdermal every 72 hours. Refills: 0. Medications to Continue That Have Not Changed Other Medications acetaminophen (Tylenol) bacillus coagulans (Probiotic Digestive Aid Gummies) baclofen (baclofen 10 mg oral tablet) Take 1/2-1 tab BID PRN. Refills: 0. calcium citrate (calcium (as calcium citrate) 250 mg oral tablet) multivitamin with minerals ([employer]er Women's Multi Gummy) Template Non-Formulary Keto ACV gummies. Comment: Lab and Radiology Results Laboratory or Other Results This Visit (last charted value for your 02/26/2024 visit) Hematology 02/26/2024 11:05 PM Hct: 42.2 % -- Normal range between ( 33.7 and 40.4 ) Hgb: 14.3 gm/dL -- Normal range between ( 11.3 and 15.9 ) MCH: 30 pg -- Normal range between ( 24 and 34 ) MCHC: 34 gm/dL -- Normal range between ( 26 and 37 ) MCV: 90 fL -- Normal range between ( 81 and 100 ) MPV: 8.0 fL -- Normal range between ( 6.3 and 10.2 ) Platelet: 243 x103/mcL -- Normal range between ( 138 and 427 ) RBC: 4.70 x106/mcL -- Normal range between ( 3.70 and 5.30 ) RDW: 13.3 % -- Normal range between ( 11.5 and 15.0 ) WBC: 7.7 x103/mcL -- Normal range between ( 3.5 and 10.5 ) Auto Eos %: 1.1 % -- Normal range between ( 0.9 and 4.0 ) Auto Lymph %: 28 % -- Normal range between ( 14 and 48 ) Auto Neut %: 63 % -- Normal range between ( 44 and 88 ) Eos Abs#: 0.1 x103/mcL -- Normal range between ( 0.0 and 0.4 ) Lymph Abs#: 2.1 x103/mcL -- Normal range between ( 1.3 and 2.9 ) Spencer Abs#: 0.6 x103/mcL -- Normal range between ( 0.0 and 0.8 ) Auto Baso %: 0.4 % -- Normal range between ( 0.2 and 2.0 ) Auto Spencer %: 8 % -- Normal range between ( 1 and 12 ) Baso Abs#: 0.0 x103/mcL -- Normal range between ( 0.0 and 0.2 ) Neut Abs#: 4.8 x103/mcL -- Normal range between ( 1.5 and 9.2 ) Coagulation 02/26/2024 11:05 PM INR: 0.98 -- Normal range between ( 0.91 and 1.11 ) PT: 10.2 second(s) -- Normal range between ( 9.7 and 11.8 ) Urinalysis 02/26/2024 11:50 PM UA Blood: NEGATIVE UA Color: Yellow UA Glucose: NEGATIVE UA Ketones: 40 UA Leuk Est: NEGATIVE UA Nitrite: NEGATIVE UA Protein: NEGATIVE UA Urobilinogen: 0.2 mg/dL -- Normal range between ( 0.2 and 1.0 ) UA pH: 7.5 -- Normal range between ( 5 and 8 ) UA Spec Grav: 1.015 -- Normal range between ( 1.001 and 1.035 ) UA Clarity: CLEAR Micro?: Not Indicated Culture?: Not Indicated UA Bilirubin: NEGATIVE Urine Source: Clean Catch Chemistry 02/26/2024 11:58 PM Lactic Acid: 15.3 mg/dL -- Normal range between ( 4.5 and 19.8 ) 02/26/2024 11:05 PM Creatinine Level: 0.68 mg/dL -- Normal range between ( 0.60 and 1.30 ) Albumin Level: 4.2 gm/dL -- Normal range between ( 3.5 and 5.0 ) Alk Phos: 56 IU/L -- Normal range between ( 32 and 91 ) Amylase Level: 51.0 unit/L -- Normal range between ( 28.0 and 100.0 ) Bili Total: 0.8 mg/dL -- Normal range between ( 0.3 and 1.2 ) BUN: 9 mg/dL -- Normal range between ( 8 and 26 ) Chloride Level: 105 mmol/L -- Normal range between ( 101 and 111 ) CO2: 24 mmol/L -- Normal range between ( 21 and 32 ) Glucose Level: 93.0 mg/dL -- Normal range between ( 74.0 and 118.0 ) Lipase Level: 30.0 IU/L -- Normal range between ( 22.0 and 51.0 ) Magnesium: 1.86 mg/dL -- Normal range between ( 1.80 and 2.50 ) Osmolality: 270 mOsm/L Potassium Level: 3.5 mmol/L -- Normal range between ( 3.6 and 5.1 ) Sodium Level: 136.0 mmol/L -- Normal range between ( 136.0 and 144.0 ) Protein Total: 7.2 gm/dL -- Normal range between ( 6.5 and 8.1 ) Anion Gap: 1 (more content not included)... [facility] 01-15-2024 Note [id number]# [id number] [facility] 01-12-2024 Note [facility] SURGERY Clinical Discharge Summary PERSON INFORMATION Name LUCILA JACQUES Age 33 Years 1990 Sex FEMALE Language Austrian PCP Provider, None Marital Status Med Service Pain Management Surgery Acct# Arrival 01/12/2024 10:59:54 Visit Reason GENICULAR PAIN Acuity LOS 004 01:11 Address: [address] [place] [address] Comment: PROVIDER INFORMATION VITALS INFORMATION Vital Sign Triage Latest Temp Oral Temp Temporal Temp Intravascular Temp Axillary Temp Rectal 02 Sat 100 % 99 % Respiratory Rate Peripheral Pulse Rate Apical Heart Rate Blood Pressure / 72 mmHg / 83 mmHg Comment: MEDICAL INFORMATION Allergy Info: Magnesium; potassium chloride; ibuprofen Prescriptions Given: acetaminophen (Tylenol) ALPRAZolam (Xanax 0.5 mg oral tablet) Take 1-2 tabs prior to procedure. Refills: 0. bacillus coagulans (Probiotic Digestive Aid Gummies) baclofen (baclofen 10 mg oral tablet) Take 1/2-1 tab BID PRN. Refills: 0. calcium citrate (calcium (as calcium citrate) 250 mg oral tablet) multivitamin with minerals ([employer]er Women's Multi Gummy) Template Non-Formulary Keto ACV gummies. Medication List: Medications to Continue That Have Not Changed Other Medications acetaminophen (Tylenol) ALPRAZolam (Xanax 0.5 mg oral tablet) Take 1-2 tabs prior to procedure. Refills: 0. bacillus coagulans (Probiotic Digestive Aid Gummies) baclofen (baclofen 10 mg oral tablet) Take 1/2-1 tab BID PRN. Refills: 0. calcium citrate (calcium (as calcium citrate) 250 mg oral tablet) multivitamin with minerals ([employer] Women's Multi Gummy) Template Non-Formulary Keto ACV gummies. Medications to Continue That Have Not Changed Other Medications acetaminophen (Tylenol) ALPRAZolam (Xanax 0.5 mg oral tablet) Take 1-2 tabs prior to procedure. Refills: 0. bacillus coagulans (Probiotic Digestive Aid Gummies) baclofen (baclofen 10 mg oral tablet) Take 1/2-1 tab BID PRN. Refills: 0. calcium citrate (calcium (as calcium citrate) 250 mg oral tablet) multivitamin with minerals ([employer] Women's Multi Gummy) Template Non-Formulary Keto ACV gummies. Medications to Continue That Have Not Changed Other Medications acetaminophen (Tylenol) ALPRAZolam (Xanax 0.5 mg oral tablet) Take 1-2 tabs prior to procedure. Refills: 0. bacillus coagulans (Probiotic Digestive Aid Gummies) baclofen (baclofen 10 mg oral tablet) Take 1/2-1 tab BID PRN. Refills: 0. calcium citrate (calcium (as calcium citrate) 250 mg oral tablet) multivitamin with minerals ([employer] Women's Multi Gummy) Template Non-Formulary Keto ACV gummies. Comment: Lab and Radiology Results Laboratory or Other Results This Visit (last charted value for your 01/12/2024 visit) Chemistry 01/12/2024 11:10 AM U Preg: Negative DIET & ACTIVITY Patient Activity Level: Patient Diet: Patient Activity Restrictions: DISCHARGE INFORMATION Discharge Disposition: Discharge Location: DEPART REASON INCOMPLETE INFORMATION PATIENT EDUCATION INFORMATION Instructions: Follow up: Type Location Start Finish State Pain Post Procedure (MAGR) PAIN MANAGE 01/25/2024 9:10 AM 01/25/2024 9:20 AM Confirmed DIAGNOSIS Comment: PHYS DOC NOTES [facility] 01-11-2024 Note [id number] The history of present illness has been reviewed. There are no changes document. [Electronically Signed on: 01/12/2024 11:34 EDT] __ ALEC PATEL MD [Verified on: 01/12/2024 11:34 EDT] __ ALEC PATEL MD [Transcribed on: 01/11/2024 13:06 EDT] [facility] 08-23-2023 Note Date of Telehealth V isit: 08/23/23 The patient was notified that using 3rd alliance party telecommunication application (e.g. Sribu) is not HIPAA compliant and may carry some privacy risks: Yes This visit was conducted oelv-te-mqkr with the use of audio and video technology using In-Touch between patient and the provider for a virtual visit. Verbal consent to provide and bill this service was obtained on: yes No signature was obtained due to the COVID-19 pandemic. Patient Location: home Chief Complaint: sinus congestion History of Present Illness: Patient is a 33-year-old female who complains of sinus congestion with postnasal drip, green nasal drainage for the last 10 to 12 days. She denies any fevers, chills, chest pain or shortness of breath. She has been using jxak-tzu-jgdjens medications with minimal relief of symptoms. ROS: Gen: pt denies any fevers, chills, myalgias HEENT: pt denies any earaches, sore throat, c/o sinus congestion Eyes: Patient denies any vision changes, drainage, irritation Cardiac: patient denies any chest pain, heart palpitations Lung: patient denies any cough, shortness of breath, retractions Abd: patient denies any abdominal pain, nausea, vomiting, diarrhea, constipation : patient denies any pain with urination, urinary frequency, blood in the urine Neurologic: patient denies any headaches, numbness tingling weakness in any of the extremities Musculoskeletal: patient denies any pain in extremities or edema PE: General: patient is awake alert oriented in no apparent distress, venting at ease and speaking in full sentences HEENT: no obvious nasal drainage, swallowing on saliva well Eyes: conjunctive is clear, no active drainage, extraocular motions are intact Lungs: no cough during the exam, no retractions no respiratory distress Neurologic: cranial nerves are grossly intact Musculoskeletal: moves all 4 extremities grossly, no edema Assessment / Plan: Patient is a 33-year-old female with complaint of sinus congestion and nasal drainage consistent with acute sinusitis. Prescription for Flonase nasal spray and amoxicillin sent to pharmacy. Patient is to follow-up with primary care doctor if symptoms persist or worsen. Patient states understanding and agrees with plan. I spent (10) minutes of total time on the day of the visit. This time was spent preparing for the visit, obtaining and reviewing any outside history/data, taking a history, performing an exam/evaluation, counseling and educating the patient/family about the diagnosis and plan, performing medical decision making, referring to and communicating with other health care referrals, independently interpreting results and documenting in the EMR, and coordinating care. Ching Brooks PA-C [facility] 07-11-[address] [facility] Telemedicine Visit Date of Telehealth Visit: 07-11-2023 The patient was notified that using 3rd alliance party telecommunication application (e.g. S[employer]u) is not HIPAA compliant and may carry some privacy risks This visit was conducted fjne-gh-doph with the use of audio and video technology using Intouch between patient and the provider for a virtual visit. Verbal consent to provide and bill this service was obtained on: 07-11-2023 No signature was obtained due to the COVID-19 pandemic. Chief Complaint Patient presents with Headache HPI Patient is a 33-year-old female who presents the telemedicine service today with complaints of a 3-day history of migraines. Patient states that she is taken kzkm-tam-aiobvjd Tylenol and Tylenol PM. She has a history of migraines and does get them approximately 1-2 times a month. Patient has seen someone previously for her migraines and states that she was put on Imitrex which does not work. She also believes that NSAIDs do not work for her headache. Patient has her headaches on the side of her head and then it becomes generalized which is the same symptoms that she has now. She states that she normally sleeps her headache off but that has not been working. She has had some mild intermittent nausea but no vomiting. She states that she is calling in today so she can be started on long-term preventative medications for her migraines. Review of Systems Constitutional: Negative for appetite change, chills, fatigue and fever. HENT: Negative for congestion, ear pain, sinus pressure and sore throat. Eyes: Negative for pain and itching. Respiratory: Negative for cough and shortness of breath. Cardiovascular: Negative for chest pain and palpitations. Gastrointestinal: Negative for abdominal pain, constipation, diarrhea + nausea. Endocrine: Negative for cold intolerance and heat intolerance. Genitourinary: Negative for dysuria, flank pain and urgency. Musculoskeletal: Negative for back pain and neck pain. Skin: Negative for rash and wound. Active Ambulatory Problems Diagnosis Date Noted No Active Ambulatory Problems Resolved Ambulatory Problems Diagnosis Date Noted No Resolved Ambulatory Problems No Additional Past Medical History No past surgical history on file. Allergies No Known Allergies No flowsheet data found. Physical Exam PHYSICAL EXAMINATION: Exam is performed during tele-medicine encounter via encrypted connection. Patient doesn't appear to be in distress. Well developed. No visible JVD. Nares patent, facial symmetry, Normocephalic, atraumatic No use of auxiliary respiratory muscles. No dyspnea Abdomen is not visibly distended Extremities without visible peripheral edema. No visible skin changes or overt peripheral ischemia based on visual examination. Patient has normal motor function without visible focal deficit. Lucila was seen today for headache. Diagnoses and all orders for this visit: Other migraine without status migrainosus, not intractable (Primary) Patient is a 33-year-old female who presents the telemedicine service today with complaints of long-term chronic migraines. Long discussion with the patient that we could give the patient something as a naproxen for her migraines however we cannot start her on long-term medications as that is more of a specialty type evaluation and would really need to be done by a family care doctor or neurologist. Patient does not have a family medicine physician so we do recommend that we will refer her to family medicine. Discussed with the patient if she is on day 3 of her migraine that she might need to go to an urgent care or emergency department for abortive medications since she is unable to take any of the medications that I could give her on telemedicine. All questions were answered. Charting completed using voice recognition software. This visit was conducted with use of interactive audio and video telecommunication system. This system permits real time communication between patient and provider consent for virtual visit obtained on today's date. Greater than 16 minutes spent [id number] assessing patient, reviewing chart and discussing plan of care including treatment options. Care collaborated all questions answered. Rekha Mustafa PA-C Portions of this chart have been completed with voice recognition software, please excuse any errors. [facility] Evaluation note No assessment information availa [facility] Work Phone: Evaluation note Diagnosis Onset Date Primary osteoarthritis of left knee acute [facility] Work Phone: Evaluation note* Diagnosis Onset Date Resolution Status Primary osteoarthritis of left knee acute Primary osteoarthritis of left knee acute [facility] Work Phone: Evaluation note* Diagnosis Onset Date Resolution Status Primary osteoarthritis of left knee acute Status post left partial knee replacement [facility] Work Phone: Assessments Diagnosis History of bariatric surgery Bariatric surgery status Health care maintenance Unspecified general medical examination Advance Directives No Advanced Directives Records FoundDocuments on File Type Date Recorded Patient House Calls Nurse Expl anation Advance Directives and Living Will Power of [employer] Advance Directive Response Recorded Date/ Time Advance Directives No July 3:35pm Advance Directive Response Recorded Date/ Time Advance Directives No March 26 4 9:12am Summary Purpose Family History No Family History Records Found Relationship Condition Age at Onset Recorded Date/T dawood father Hypertension Unknown Diabetes mellitus Unknown mother Peripheral vascular disease Unknown Chief Complaint and Reason for Visit Chief Complaint CONSULT DR TAI BARRERA KNEE PAIN M25.562 - Pain in left knee Chief Complaint CONSULT DR TAI BARRERA KNEE PAIN M25.562 - Pain in left knee Reason for Visit Primary osteoarthrit is of left knee Chief Complaint CONSULT DR TAI BARRERA KNEE PAIN M25.562 - Pain in left knee Unknown Reason for Visit Primary osteoarthrit is of left knee Chief Complaint CONSULT DR TAI BARRERA KNEE PAIN M25.562 - Pain in left knee Unknown z79.899 m81.0 m17.12 Reason for Visit Primary osteoarthrit is of left knee Chief Complaint CONSULT DR TAI BARRERA KNEE PAIN M25.562 - Pain in left knee Unknown z79.899 m81.0 m17.12 Hip pain Reason for Visit Primary osteoarthrit is of left knee Chief Complaint CONSULT DR LUJAN LT KNEE PAIN M25.562 - Pain in left knee Unknown z79.899 m81.0 m17.12 Hip pain Prolonged Reason for Visit Primary osteoarthrit is of left knee Chief Complaint CONSULT DR LUJAN LT KNEE PAIN M25.562 - Pain in left knee Unknown z79.899 m81.0 m17.12 Hip pain Prolonged M17.12 - Unilateral primary osteoarthritis, left k Preop L Medial uni vs L TKA H&P LEFT MEDIAL UNI VS LTKA Reason for Visit Primary osteoarthrit is of left knee Primary osteoarthritis of left knee Chief Complaint CONSULT DR LUJAN LT KNEE PAIN M25.562 - Pain in left knee Unknown z79.899 m81.0 m17.12 Hip pain Prolonged M17.12 - Unilateral primary osteoarthritis, left k Preop L Medial uni vs L TKA H&P LEFT MEDIAL UNI VS LTKA left knee pain left knee pain Reason for Visit Primary osteoarthrit is of left knee Primary osteoarthritis of left knee Chief Complaint CONSULT DR LUJAN LT KNEE PAIN M25.562 - Pain in left knee Unknown z79.899 m81.0 m17.12 Hip pain Prolonged M17.12 - Unilateral primary osteoarthritis, left k Preop L Medial uni vs L TKA H&P LEFT MEDIAL UNI VS LTKA left knee pain left knee pain [facility] PT 2 WK POST OP LT MEDIAL UNI VS LTKA Reason for Visit Primary osteoarthrit is of left knee Primary osteoarthritis of left knee Chief Complaint Hip pain Prolonged M17.12 - Unilateral primary osteoarthritis, left k Preop L Medial uni vs L TKA H&P LEFT MEDIAL UNI VS LTKA left knee pain left knee pain [facility] PT 2 WK POST OP LT MEDIAL UNI VS LTKA 4 WK RECHECK LT MEDIAL UNI VS LTKA Z96.652 - Presence of left artificial knee joint Reason for Visit Primary osteoarthrit is of left knee Status post left partial knee replacement Additional Source Comments INFORMATION SOURCE (unrecogn ized section and content) DATE CREATED AUTHOR 10/18/2021 [facility] DATE CREATED AUTHOR AUTHOR'S ORGANIZ ATION 08/30/2023 [facility] DATE CREATED AUTHOR AUTHOR'S ORGANIZ ATION 02/02/2024 [facility] DATE CREATED AUTHOR AUTHOR'S ORGANIZ ATION 03/04/2024 [facility] DATE CREATED AUTHOR AUTHOR'S ORGANIZ ATION 03/16/2024 [facility] DATE CREATED AUTHOR AUTHOR'S ORGANIZ ATION 05/27/2024 [facility] DATE CREATED AUTHOR AUTHOR'S ORGANIZ ATION 06/02/2024 [facility] DATE CREATED AUTHOR AUTHOR'S ORGANIZ ATION 06/06/2024 [facility] DATE CREATED AUTHOR AUTHOR'S ORGANIZ ATION 06/13/2024 [facility] Care Teams (unrecognized sec tion and content) Team Status: Active Member Role Status Dates NON STAFF Primary Care Provider Active Team Status: Inactive Member Role Status Dates NON STAFF Primary Care Provider Active Start: February 15, 2024 End: February 15, 2024 Santa Estrada II, MD Attending Provider Active Start: February 15, 2024 End: February 15, 2024 Team Status: Active Member Role Status Dates NON STAFF Primary Care Provider Active Start: February 15, 2024 Santa Estrada II, MD Attending Provider Active Start: February 15, 2024 Team Status: Inactive Member Role Status Dates Maurizio Mast MD Attending Provider Active Start: February 27, 2024 End: February 27, 2024 Team Status: Active Member Role Status Dates PHYSICIAN NO FAMILY Primary Care Provider Active Team Status: Inactive Member Role Status Dates PHYSICIAN NO FAMILY Primary Care Provider Active Start: March 12, 2024 End: March 12, 2024 Santa Estrada II, MD Attending Provi sharla, Referring Provider Active Start: March 12, 2024 End: March 12, 2024 Team Status: Inactive Member Role Status Dates Santa Estrada II, MD Attending Provider Active Start: April 15, 2024 End: April 15, 2024 NON STAFF Primary Care Provider Active Start: April 15, 2024 End: April 15, 2024 Team Status: Inactive Member Role Status Dates NON STAFF Primary Care Provider Active Start: April 19, 2024 End: April 19, 2024 Santa Estrada II, MD Attending Provider Active Start: April 19, 2024 End: April 19, 2024 Team Status: Active Member Role Status Dates NON STAFF Primary Care Provider Active Start: April 19, 2024 Santa Estrada II, MD Attending Provider Active Start: April 19, 2024 Team Status: Active Member Role Status Dates Santa Estrada II, MD Attending Provider Active Start: April 19, 2024 NON STAFF Primary Care Provider Active Start: April 19, 2024 Team Status: Inactive Member Role Status Dates Santa Estrada II, MD Attending Provider Active Start: April 19, 2024 End: April 19, 2024 NON STAFF Primary Care Provider Active Start: April 19, 2024 End: April 19, 2024 Team Status: Inactive Member Role Status Dates Santa Estrada II, MD Attending Provider Active Start: April 29, 2024 End: April 29, 2024 NON STAFF Primary Care Provider Active Start: April 29, 2024 End: April 29, 2024 Team Status: Active Member Role Status Dates Santa Estrada II, MD Attending Provi sharla, Other Provider Active Start: April 29, 2024 NON STAFF Primary Care Provider Active Start: April 29, 2024 Team Status: Inactive Member Role Status Dates NON STAFF Primary Care Provider Active Start: May 15, 2024 End: May 15, [address] art: May 15, 2024 End: May 15, 2024 Santa Estrada II, MD Attending Provider Active Start: May 15, 2024 End: May 15, 2024 Team Status: Inactive Member Role Status Dates Santa Estrada II, MD Attending Provider Active Start: June 11, 2024 End: June 11, 2024 NON STAFF Primary Care Provider Active Start: June 11, 2024 End: June 11, 2024 Team Status: Active Member Role Status Dates NON STAFF Primary Care Provider Active Start: June 11, 2024 Santa Estrada II, MD Attending Provider Active Start: June 11, 2024 Team Status: Inactive Member Role Status Dates NON STAFF Primary Care Provider Active Start: June 11, 2024 End: June 11, 2024 Santa Estrada II, MD Attending Provider Active Start: June 11, 2024 End: June 11, 2024 Goals (unrecognized section and content) Goals may be documented in a n alternate sectionGoals may be documented in an alternate sectionGoals may be documented in an alternate sectionGoals may be documented in an alternate sectionGoals may be documented in an alternate sectionGoals may be documented in an alternate sectionGoals may be documented in an alternate section FOR RECORDS PERTAINING TO PATIENTS WHO ARE OR HAVE BEEN ENROLLED IN A CHEMICAL DEPENDENCY/SUBSTANCEABUSE PROGRAM, SOME INFORMATION MAY BE OMITTED. This clinical summary was aggregated from multiple sources. Caution should be exercised in using it in the provision of clinical care. This summary normalizes information from multiple sources, and as a consequence, information in this document may materially change the coding, format and clinical context of patient data. In addition, data may be omitted in some cases. CLINICAL DECISIONS SHOULD BE BASED ON THE PRIMARY CLINICAL RECORDS. [facility] [employer] [facility]. provides no warranty or guarantee of the accuracy or completeness of information in this document.
[2024-06-17 13:00] LABS: Basophils Percent Auto 0.4 % (0.2-2.0); Eosinophils Absolute Auto 0.1 10^3/uL (0.0-0.7); Eosinophils Percent Auto 1.3 % (0.9-7.0); Hematocrit 36.9 % (36.0-48.0); Hemoglobin 12.4 g/dL (12.0-16.0); Immature Granulocytes Abs Auto 0.02 10^3/uL (0.00-0.03); Immature Granulocytes Pct Auto 0.3 % (0.0-0.5); Lymphocytes Absolute Auto 1.2 10^3/uL (1.2-3.8); Mean Corpuscular HGB Conc 33.6 g/dL (29.9-35.2); Mean Corpuscular Hemoglobin 29.9 pg (26.7-34.0); Mean Corpuscular Volume 88.9 fL (81.0-99.0); Monocytes Absolute Auto 0.4 10^3/uL (0.3-0.8); Neutrophils Absolute Auto 5.3 10^3/uL (1.4-6.5); Platelet Count 173 10^3/uL (150-450); Red Blood Count 4.15 10^6/uL (4.20-5.40); Red Cell Distribution Width 12.5 % (11.0-15.0); White Blood Count 7.1 10^3/uL (4.0-11.0)
[2024-06-17 13:06] LABS: Amphetamine Screen Urine NEGATIVE (NEGATIVE); Barbiturates Screen Urine NEGATIVE (NEGATIVE); Benzodiazepines Screen Urine NEGATIVE (NEGATIVE); Buprenorphine Screen Urine NEGATIVE (NEGATIVE); Cannabinoid Screen Urine NEGATIVE (NEGATIVE); Cocaine Screen Urine NEGATIVE (NEGATIVE); Methadone Screen Urine NEGATIVE (NEGATIVE); Methamphetamines Screen Urine NEGATIVE (NEGATIVE); Opiate Screen Urine NEGATIVE (NEGATIVE); Oxycodone Screen Urine NEGATIVE (NEGATIVE); Phencyclidine Screen Urine NEGATIVE (NEGATIVE); Tricyclic Antidepressant Urine NEGATIVE (NEGATIVE)
[2024-06-17 13:08] LABS: Estimated Average Glucose 94 mg/dL; Glycohemoglobin A1C 4.9 % (4.5-6.2)
[2024-06-17 13:20] LABS: INR 0.94; Partial Thromboplastin Time 25.5 sec (22.3-36.2)
[2024-06-17 14:49] LABS: Aspartate Amino Transferase 17 U/L (15-37); Estimated GFR (African America >60 (>=60); Estimated GFR (Non-African Ame >60 (>=60); Lactate Dehydrogenase 128 U/L (81-234); Uric Acid 3.3 mg/dL (2.6-6.0)
[2024-06-18 08:15] LABS: HCV Ab Non Reactive (Non Reactive); HIV Ab/p24 Ag Screen Non Reactive (Non Reactive)
[2024-06-18 10:14] LABS: HBsAg Screen Negative (Negative)
[2024-06-18 13:11] LABS: Rapid Plasma Reagin, Quant Non Reactive titer (NonRea<1:1)
== END 2024-06-17 12:23 | disposition home or self-care (01) ==
LOC: LAB 12:25
PROVIDERS: Visit Provider Obstetrics & Gynecology
DX: Z34.80 Encounter for supervision of other normal pregnancy, unspecified trimester (principal); N92.6 Irregular menstruation, unspecified
CPT/HCPCS: 36415; 80307; 82565; 83036; 83615; 84450; 84520; 84550; 85025; 85610; 85730; 86592; 86762; 86803; 86850; 86900; 86901; 87086; 87340; 87389

== ENCOUNTER 2024-06-21 10:35 | Outpatient (REF) | payer BC, SELFPAY ==
--- OUTSIDE RECORDS SUMMARY | 2024-06-21 10:38 | XMS_ITS | CCD ---
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, Audra Burns Attending U suleman NON STAFF Primary Care Provider Unavailnikolay e MD Santa Estrada II Attending Provider MD Maurizio Mast Attending Provider [phone] SANTA ESTRADA Referring Unavaila ble PCP, NOT IN SYSTEM Primary Care Unavailable NO FAMILY, PHYSICIAN Primary Care Provider Unava ilMD Santa Hoffman II Referring Provider [phone] BRYAN BALDERRAMA Referring Unavailable PCP, NOT IN SYSTEM Primary Care Unavailable LEXI ROBERTSON Attending Unavailable LEXI ROBERTSON Referring Unavailable PCP, NOT IN SYSTEM Primary Care Unavailable ALEC PATEL Admitting Unavailable ALEC PATEL Attending Unavailable Provider, None Primary Care Unavailable Peter Booth Attending Unavailable Provider, None Primary Care Unavailable Peter Booth Attending Unavailable Provider, None Primary Care Unavailable [place]Audra M Admitting Unavailable [place] ParkAudra bond M Attending Unavailable Provider, None Primary Care Unavailable Maurizio Mast Attending Unavailable Juliano Peterson Unavailable Provider, None Primary Care Unavailable Maurizio Mast Admitting Unavailable [place], Audra M Admitting Unavailable [place] ParkAudra M Attending Unavailable Provider, None Primary Care Unavailable Provider, None Primary Care Unavailable [place], Audra M Admitting Unavailable [place] Audra M Attending Unavailable MD Santa Estrada II Attending Provider [phone] NON STAFF Primary Care Provider Unavailabl e NON STAFF Primary Care Unavailable Sean CURRIE, Santa Jensen Attending Unavailabl e Sean II, Santa Jensen Admitting Unavailabl e Sampson II, Santa Jensen Admitting Unavailabl e NON STAFF Primary Care Unavailable Sean CURRIE, Santa Jensen Attending Unavailabl e Sampson II, Santa Jensen Admitting Unavailabl e NON STAFF Primary Care Unavailable Sean CURRIE, Santa Jensen Attending Unavailabl e NON STAFF Primary Care Unavailable Sean CURRIE, Santa Jensen Attending Unavailabl e Sean CURRIE, Santa Jensen Admitting Unavailabl e Mast, Maurizio Jalloh-Johnson Admitting Unavailable MastMaurizio murrietaJohnson Attending Unavailable Sean CURRIE, Santa Jensen Admitting Unavailabl e NON STAFF Primary Care Unavailable Sean CURRIE, Santa Jensen Attending Unavailabl e NO FAMILY, PHYSICIAN Primary Care Unavailable Sean CURRIE, Santa Jensen Admitting Unavailabl e Sean CURRIE, Santa Jensen Attending Unavailabl e Sean CURRIE, Santa Jensen Referring UnavailVICTOR M Fitzgerald Attending Unavailable VICTOR M LUJAN Referring Unavailable VICTOR M LUJAN Attending Unavailable SANDRITA KNOX Attending Unavailable SANDRITA KNOX Attending Unavailable SANDRITA KNOX Attending Unavailable SANDRITA KNOX Referring Unavailable BRYAN BALDERRAMA Attending Unavailable Allergies Allergy Classification Reported Allergen(s) Allergy Type Date of Onset Reaction(s) Facility Magnesium (2 sources) Magnesium; Translations: [MAGNESIUM] Drug Allergy 2 [facility] NSAIDs (2 sources) Ibuprofen; Translations: [NSAIDS (NON-STEROIDAL ANTI-INFLAMMATOR Y DRUG)] Drug Allergy 2 [facility] Potassium (1 source) Potassium Drug Allergy 4 [facility] Potassium Chloride (1 source) Potassium Chloride; Translations: [POTASSIUM CHLORIDE] Drug Allergy 2 [facility] Repository (2 sources) Magnesium-Contai buddy Compounds Propensity to adverse reactions to drug 9 [place], [place] (12 sources) Ibuprofen; Translations: [ibuprofen] Drug Allergy 9 [place], [place] (1 source) Potassium-Contai buddy Compounds Propensity to adverse reactions to drug 0 [facility] [place] [place] (1 source) ALLERGIES NOT ON FILE; Translations: [ALLERGIES NOT ON FILE] Propensity to adverse reactions (disorder) [facility] Repository (13 sources) Magnesium; Translations: [MAGNESIUM] Drug Allergy 2 [facility] (11 sources) Potassium; Translations: [potassium] Drug Allergy 4 [facility] (7 sources) Contrast media Allergy to substance 4 [facility] (4 sources) NSAIDS (Non-Steroidal Anti-Inflamma Allergy to substance 4 [facility] (2 sources) Amoxicillin; Translations: [AMOXICILLIN] Drug Allergy 4 [facility] Rep[facility] (1 source) NSAIDs; Translations: [NSAIDS (NON-STEROIDAL ANTI-INFLAMMATOR Y DRUG)] Propensity to adverse reactions to drug (disorder) 2 [facility] Rep[facility] (2 sources) Potassium Chloride; Translations: [POTASSIUM CHLORIDE] Drug Allergy 2 [facility] (1 source) Ibuprofen Drug Allergy 4 [facility] Repository Medications Current Medications Medication Drug [...] Active 500 MG PO Three times daily 90 March 18, 2024 12:00am cholecalciferol 0.025 mg oral capsule (7 sources) Vitamin D Start: 03-18-2024 take 25 ug by mouth once daily Cholecalciferol (Vitamin D3) Active 25 MCG PO daily 30 March 18, 2024 12:00am levonorgestrel 0.845210 mg/hr intrauterine system (2 sources) Progestin, Progestin-contain ing Intrauterine Device Levonorgestrel (LILETTA, 52 MG,) 19.5 MCG/DAY IUD by Intrauterine route 0 Active Multivitamin (Daily Multi-Vitamin) tablet (7 sources) Start: 04-15-2024 take 1 tablet by mouth once daily Multivitamin (Daily Multi-Vitamin) tablet Active 1 TAB PO Daily April 15, 2024 12:00am Lucien (No Known Home Meds) (4 sources) Start: 11-14-2019 Lucien (No Known Home Meds) Active November 14, [...] BED docusate sodium 50 mg / sennosides, correction 8.6 mg oral tablet (4 sources) Start: [...] August 30, 2017 12:44pm polyethylene glycol 3350 24364 mg powder for oral solution (4 sources) [...] current use of drug therapy; Translations: [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] 03-12-2024 Episodic Other complications [...] te Episodic/Chronic Other aftercare (1 source) Other fpc (current) drug therapy; Translations: [Other fpc (current) drug therapy] Onset: 03-12-2024 Episodic Other [...] LT 3V - NOT FOR ER USE [facility] [address] [place] [address] XRay Report Signed Patient: Lucila Jacques MR#: [id number] 33 : 1990 Acct:[id number] Age/Sex: 33 / F ADM Date: 06/11/24 Loc: [facility] Room: Type: [facility] Attending Dr: Santa Estrada II, MD Copies [...] Vikki Rivers M.D.06/11/2024 2:26 PM Dictation Location: [place] [address] Transcribed By: [facility] 06/11/24 1426 Dictated By: Vikki Rivers MD 06/11/24 1422 Signed By: 06/11/24 1426 Normal [facility] US OB < 14 [...] on 04-29-2024 Amphetamines Ql (U) Negative Negative [facility] Barbiturates [Presence] in U rine by Screen methodOrdered By: Yusef Curran on 04-29-2024 Barbiturates Screen Ql (U) Negative Negative [facility] Benzodiazepines Screen Ql (U )Ordered By: Yusef Curran on 04-29-2024 Benzodiazepines Ql (U) Negative Negative [facility] Benzoylecgonine [Presence] i n Urine by Screen methodOrdered By: Yusef Curran on 04-29-2024 Benzoylecgonine Screen Ql (U) Negative Negative [facility] Cannabinoids [Presence] in U rine by Screen methodOrdered By: Yusef Curran on 04-29-2024 Cannabinoids Screen Ql (U) Negative Negative [facility] Comment on above: These are unconfirme d results and should not be used for legal purposes. Drug Cut-Off Concentration: AMPH 1000 ng/mL SILVIA 200 ng/mL DARLYN 200 ng/mL COCM 300 ng/mL OP 300 ng/mL PCP 25 ng/mL THC 20 ng/mL Drug Screen,Urineon 04-29-20 24 Amphetamine Screen,Urine Negative Normal Negative [facility] Comment on above: Performed By: #### A 1C WTH eA, ALB, [id number], HGB #### [place] [address] [place] #### NICOTINE #### [facility] , Barbiturate Screen,Urine Negative Normal Negative [facility] Comment on above: Performed By: #### A 1C WTH eA, ALB, [id number], HGB #### [place] [address] [place] #### NICOTINE #### [facility] , Benzodiazepines Screen,Urine Negative Normal Negative [facility] Comment on above: Performed By: #### A 1C WTH eA, ALB, [id number], HGB #### [place] [address] [place] #### NICOTINE #### [facility] , Cannabinoid Screen,Urine Negative Normal Negative [facility] Comment on above: Result Comment: Thes e are unconfirmed results and should not be used for legal purposes. Drug Cut-Off Concentration: AMPH 1000 ng/mL SILVIA 200 ng/mL DARLYN 200 ng/mL COCM 300 ng/mL OP 300 ng/mL PCP 25 ng/mL THC 20 ng/mL PERFORMED BY: [place] [address] PATHOLOGIST PLASTIC SURGERY ASSISTANT GENO BENEDICT M.D. Performed By: #### A 1C WTH eA, ALB, [id number], HGB #### [facility] [address] [place] [address] [place] #### NICOTINE #### [facility] , Cocaine Screen,Urine Negative Normal Negative [facility] Comment on above: Performed By: #### A 1C WTH eA, ALB, [id number], HGB #### [place] [address] [place] #### NICOTINE #### [facility] , Opiate Screen,Urine Negative Normal Negative [facility] Comment on above: Performed By: #### A 1C WTH eA, ALB, [id number], HGB #### [address] #### NICOTINE #### [facility] , Phencyclidine Screen,Urine Negative Normal Negative [facility] Comment on above: Performed By: #### A 1C WTH eA, ALB, [id number], HGB #### [address] #### NICOTINE #### [facility] , HCG ( test) IA.rapi d Ql (U)Ordered By: Yusef Curran on 04-29-2024 HCG ( test) Ql (U) Negative [facility] HCG,Urineon 04-29-2024 Beta HCG ( test) Ql (U) Negative Normal [facility] Comment on above: Result Comment: PERF ORMED BY: [place] [address] PATHOLOGIST PLASTIC SURGERY ASSISTANT GENO BENEDICT M.D. Performed By: #### U HCG #### [place] [address] [place] Vaughn 04-29-2024 L Specimen: [id number] Received: 04/29/24 Status: SOUT Anupama Num: [id number] Spec Type: Surgical Subm Dr: Santa Estrada MD Tissues: A Joint/Knee (LT KNEE) Procedures: HE, Gross/Micro L4, Decalcification Age/ Patient Sex Location Account Attending Physician JacquesLucila Jayy 33/F [place] [id number] Snata Estrada MD SPEC NUM: [id number] RECD: 04/29/24 STATUS: MICHAEL YOUNG NUM: [id number] NIELS: 04/29/[address]: Santa Estrada MD ENTERED: 04/29/24 [facility] DR: SPEC TYPE: Surgical DEPT: S ORDERED: [...] examination, no sections are submitted. CPT Codes 70821 Specimen: [id number] Received: 04/29/24 Status: ANUPAMABrunilda Young Num: [id number] Spec Type: Surgical Subm Dr: Santa Estrada MD Tissues: A Joint/Knee (LT KNEE) Procedures: HE, Gross/Micro L4, Decalcification Patient: JacquesLucila [id number] (Continued) Specimen: [id number] Received: 04/29/24 (Continued) Signed (signature on file) Jamia Trevizo MD 05/07/24 1703 Specimen: [id number] Received: 04/29/24 Status: MICHAEL Young Num: [id number] Spec Type: Surgical Subm Dr: Santa Estrada MD Tissues: A Joint/Knee (LT KNEE) Procedures: VIKASH, Gross/Nithya L4, Decalcification Patient: Lucila Jacques [id number] (Continued) Specimen: [id number] Received: 04/29/24 (Continued) BONE AND TISSUE Specimen: [id number] Received: 04/29/24 Status: MICHAEL Anupama Num: [id number] Spec Type: Surgical Subm Dr: Santa Estrada MD Tissues: A Joint/Knee (LT KNEE) Procedures: Gonsalo SUH/Nithya L4, Decalcification Patient: Lucila Jacques [id number] (Continued) Signed (signature on file) Jamia Trevizo MD 05/07/24 1703 Normal [facility] Opiates [Presence] in Urine by Screen methodOrdered By: Yusef Curran on 04-29-2024 Opiates Screen Ql (U) Negative Negative [facility] Phencyclidine Screen Ql (U)O rdered By: Yusef Curran on 04-29-2024 Phencyclidine Ql (U) Negative Negative [facility] XR knee LT 2Von 04-29-2024 XR knee LT 2V [facility] [place] [address] XRay Report Signed Patient: Lucila Jacques MR#: [id number] [birth year] : 1990 Acct:[id number] Age/Sex: 33 / F ADM Date: 04/29/24 Loc: [place] Room: Type: [facility] Attending Dr: Santa Estrada II, MD [...] Harmeet Lopez M.D.04/29/2024 2:44 PM Dictation Location: [place] [address] Transcribed By: [facility] 04/29/24 1444 Dictated By: Harmeet Lopez DO 04/29/24 144 Signed By: 04/29/24 1444 Normal [facility] XR tibia fibula LT 2V*on XR tibia fibula LT 2V* [facility] [address] [place] [address] XRay Report Signed Patient: Lucila Jacques MR#: [id number] [birth year] : 1990 Acct:[id number] Age/Sex: 33 / F ADM Date: 04/19/24 Loc: [facility] Room: Type: [facility] Attending Dr: Santa Estrada II, MD Copies to: Santa Estrada MD Ordering Provider: Santa Estrada MD Date of Service: 04/19/24 XR/XR tibia fibula LT 2V*: 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 [facility] Comment on above: Performed By: #### B MP, CBC #### [place] [address] [place] #### NICOTINE, FRUC #### [facility] , Automated basophil countOrde red By: Santa Estrada on 04-15-2024 Basophils (Bld) [#/Vol] 0.0 10*3/uL Normal 0.0-0.2 [facility] Comment on above: Result Comment: PERF ORMED BY: [place] [address] PATHOLOGIST PLASTIC SURGERY ASSISTANT GENO BENEDICT M.D. Performed By: #### B MP, CBC #### [facility] [address] [place] [address] [place] #### NICOTINE, FRUC #### [facility] , Automated blood monocyte cou ntOrdered By: Santa Estrada on 04-15-2024 Monocytes (Bld) [#/Vol] 0.3 10*3/uL Normal 0.0-0.8 [facility] Comment on above: Performed By: #### B MP, CBC #### [place] [address] [place] #### NICOTINE, FRUC #### [facility] , Automated eosinophil %Ordere d By: Santa Estrada on 04-15-2024 Eosinophils/100 WBC (Bld) 3.0 % Normal . [facility] Comment on above: Performed By: #### B MP, CBC #### [place] [address] [place] #### NICOTINE, FRUC #### [facility] , Automated eosinophil countOr dered By: Santa Estrada on 04-15-2024 Eosinophils (Bld) [#/Vol] 0.1 10*3/uL Normal 0.0-0.45 [facility] Comment on above: Performed By: #### B MP, CBC #### [facility] [address] [place] [address] [place] #### NICOTINE, FRUC #### [facility] , Automated monocyte %Ordered By: Santa Estrada on 04-15-2024 Monocytes/100 WBC (Bld) 7.6 % Normal . [facility] Comment on above: Performed By: #### B MP, CBC #### [place] [address] [place] #### NICOTINE, FRUC #### [facility] , Automated neutrophil %Ordere d By: Santa Estrada on 04-15-2024 Neutrophils/100 WBC (Bld) 55.1 % Normal . [facility] Comment on above: Performed By: #### B MP, CBC #### [place] [address] [place] #### NICOTINE, FRUC #### [facility] , Basic Metabolic Panelon 03-26 GFR/1.73 sq M.predicted MDRD (S/P/Bld) [Vol rate/Area] mL/min/{1.73_m2} Normal [facility] Comment on above: Performed By: #### A 1C WTH eA, ALB, [id number], HGB #### [place] [address] [place] #### NICOTINE #### [facility] , Bilirubin Test strip Ql (U)O rdered By: Santa Estrada on 04-15-2024 Bilirubin Ql (U) Negative Negative [facility] Calcium [Mass/volume] in Ser um or PlasmaOrdered By: Santa Estrada on 04-15-2024 Calcium [Mass/Vol] 9.0 mg/dL Normal 8.6-10.3 [facility] Comment on above: Result Comment: PERF ORMED BY: [place] [address] PATHOLOGIST PLASTIC SURGERY ASSISTANT GENO BENEDICT M.D. Performed By: #### A 1C WTH eA, ALB, [id number], HGB #### [place] [address] [place] #### NICOTINE #### [facility] , Carbon dioxide, total [Moles /volume] in Serum or PlasmaOrdered By: Santa Estrada on 04-15-2024 CO2 [Moles/Vol] 26.3 mmol/L Normal 21.0-31.0 [facility] Comment on above: Performed By: #### A 1C WTH eA, ALB, [id number], HGB #### [address] #### NICOTINE #### [facility] , Chloride [Moles/volume] in S liam or PlasmaOrdered By: Santa Estrada on 04-15-2024 Chloride [Moles/Vol] 106 mmol/L Normal 98-107 [facility] Comment on above: Performed By: #### A 1C WTH eA, ALB, [id number], HGB #### [address] #### NICOTINE #### [facility] , Color of Urine by AutoOrdere d By: Santa Estrada on 04-15-2024 Color (U) Yellow Normal Yellow [facility] Comment on above: Order Comment: Name Collection Type:: Clean-Voided Midstream Performed By: #### U A #### [address] Complete Blood Count Auto Di ffon 04-15-2024 Mean Corpuscular HGB Conc 34.0 g/dL Normal 32.0-35.0 [facility] Comment on above: Performed By: #### B MP, CBC #### [address] #### NICOTINE, FRUC #### [facility] , NRBC% 0.1 /100{WBC} Normal 0-0.5 [facility] Comment on above: Performed By: #### B MP, CBC #### [place] [address] [place] #### NICOTINE, FRUC #### [facility] , Cotinine [Mass/volume] in Se rum or PlasmaOrdered By: Santa Estrada on 04-15-2024 Cotinine [Mass/Vol] <1.0 ng/mL . [facility] Comment on above: This test was develo ped and its performance characteristicsdetermined by [facility]. It has not been cleared orapproved by the Food and Drug Administration.Cotinine levels greater than 20.0 are consistent with theuse of tobacco or tobacco cessation products.Performed at: [facility] [id number] Director: Marcellus Dave MD, Phone: [phone] Creatinine [Mass/volume] in Serum or PlasmaOrdered By: Santa Estrada on 04-15-2024 Creatinine [Mass/Vol] 0.65 mg/dL Normal 0.60-1.20 [facility] Comment on above: Performed By: #### A 1C WTH eA, ALB, [id number], HGB #### [facility] [address] [place] [address] #### NICOTINE #### [facility] , Erythrocyte distribution wid th [Ratio] by Automated countOrdered By: Santa Estrada on 04-15-2024 Erythrocyte distribution width (RBC) [Ratio] 13.2 % Normal 11.9-15.3 [facility] Comment on above: Performed By: #### B MP, CBC #### [facility] [address] [place] [address] #### NICOTINE, FRUC #### [facility] , Erythrocytes [#/volume] in B lood by Automated countOrdered By: Santa Estrada on 04-15-2024 RBC (Bld) [#/Vol] 4.52 10*6/uL Normal 3.60-5.00 [facility] Comment on above: Performed By: #### B MP, CBC #### [place] [address] [place] #### NICOTINE, FRUC #### [facility] , Fructosamineon 04-15-2024 Fructosamine 219 umol/L Normal 0-285 [facility] Comment on above: Result Comment: Publ ished reference interval for apparently healthy subjects between age 20 and 60 is 205 - 285 umol/L and in a poorly controlled diabetic population is 228 - 563 umol/L with a mean of 396 umol/L. Performed at: [facility] [address] [place], [place] [id number] Polymer Specialist: Dario West PhD, Phone: [phone] Performed By: #### A 1C WTH eA, ALB, [id number], HGB #### [place] [address] [place] #### NICOTINE #### [facility] , Fructosamine [Moles/volume] in Serum or PlasmaOrdered By: Santa Estrada on 04-15-2024 Fructosamine [Moles/Vol] 219 umol/L 0-285 [facility] Comment on above: Published reference interval for apparently healthysubjects between age 20 and 60 is 205 - 285 umol/L and in apoorly controlled diabetic population is 228 - 563 umol/Lwith a mean of 396 umol/L.Performed at: [employer] [facility] [address] [id number] Director: Dario West PhD, Phone: [phone] Glucose [Mass/volume] in Ser um or PlasmaOrdered By: Santa Estrada on 04-15-2024 Glucose [Mass/Vol] 88 mg/dL Normal 70-100 [facility] Comment on above: ADA recommended refe rence rangeRandom Glucose Reference Range is dependent on time and content of last meal. Glucose of more than 200 mg/dL in a nonstressed, ambulatory subject supports the diagnosis of Diabetes Mellitus. Result Comment: [place] om Glucose Reference Range is dependent on time and content of last meal. Glucose of more than 200 mg/dL in a nonstressed, ambulatory subject supports the diagnosis of Diabetes Mellitus. ADA recommended reference range Performed By: #### A 1C WTH eA, ALB, [id number], HGB #### [place] [address] [place] #### NICOTINE #### [facility] , Hematocrit [Volume Fraction] of Blood by Automated countOrdered By: Santa Estrada on 04-15-2024 Hematocrit (Bld) [Volume fraction] 40.4 % Normal 34.0-46.4 [facility] Comment on above: Performed By: #### B MP, CBC #### [facility] [address] [place] [address] [place] #### NICOTINE, FRUC #### [facility] , Hemoglobin [Mass/volume] in BloodOrdered By: Santa Estrada on 04-15-2024 Hemoglobin (Bld) [Mass/Vol] 13.7 g/dL Normal 11.8-15.4 [facility] Comment on above: Performed By: #### B MP, CBC #### [place] [address] [place] #### NICOTINE, FRUC #### [facility] , Ketones Auto test strip (U) [Mass/Vol]Ordered By: Santa Estrada on 04-15-2024 Ketones (U) [Mass/Vol] Negative Negative [facility] Leukocytes [#/volume] correc perla for nucleated erythrocytes in Blood by Automated counOrdered By: Santa Estrada on 04-15-2024 WBC corrected for nucl RBC Auto (Bld) [#/Vol] 4.1 10*3/uL 3.8-11.6 [facility] Leukocytes [#/volume] in Blo od by Automated countOrdered By: Santa Estrada on 04-15-2024 WBC (Bld) [#/Vol] 4.1 10*3/uL Normal 3.8-11.6 [facility] Comment on above: Performed By: #### B MP, CBC #### [facility] [address] [place] [address] [place] #### NICOTINE, FRUC #### [facility] , Lymphocytes [#/volume] in Bl ood by Automated countOrdered By: Santa Estrada on 04-15-2024 Lymphocytes (Bld) [#/Vol] 1.4 10*3/uL Normal 1.00-4.8 [facility] Comment on above: Performed By: #### B MP, CBC #### [place] [address] [place] #### NICOTINE, FRUC #### [facility] , Lymphocytes/100 leukocytes i n Blood by Automated countOrdered By: Santa Estrada on 04-15-2024 Lymphocytes/100 WBC (Bld) 33.6 % Normal . [facility] Comment on above: Performed By: #### B MP, CBC #### [facility] [address] [place] [address] [place] #### NICOTINE, FRUC #### [facility] , MCH [Entitic mass] by Automa perla countOrdered By: Santa Estrada on 04-15-2024 MCH (RBC) [Entitic mass] 30.4 pg Normal 24.7-34.3 [facility] Comment on above: Performed By: #### B MP, CBC #### [place] [address] [place] #### NICOTINE, FRUC #### [facility] , MCHC Auto (RBC) [Mass/Vol]Or dered By: Santa Estrada on 04-15-2024 MCHC (RBC) [Mass/Vol] 34.0 g/dL 32.0-35.0 [facility] MCV [Entitic volume] by Auto mated countOrdered By: Santa Estrada on 04-15-2024 MCV (RBC) [Entitic vol] 89.4 fL Normal 80-100 [facility] Comment on above: Performed By: #### B MP, CBC #### [place] [address] [place] #### NICOTINE, FRUC #### [facility] , Neutrophils [#/volume] in Bl ood by Automated countOrdered By: Santa Estrada on 04-15-2024 Neutrophils (Bld) [#/Vol] 2.2 10*3/uL Normal 1.8-7.7 [facility] Comment on above: Performed By: #### B MP, CBC #### [place] [address] [place] #### NICOTINE, FRUC #### [facility] , Nicotine [Mass/volume] in Se rum or PlasmaOrdered By: Santa Estrada on 04-15-2024 Nicotine [Mass/Vol] <1.0 ng/mL . [facility] Comment on above: This test was develo ped and its performance characteristicsdetermined by [facility]. It has not been cleared orapproved by the Food and Drug Administration.Nicotine levels greater than 2.0 are consistent with theuse of tobacco or tobacco cessation products. Nicotine/Cotinine Bloodon Cotinine, Blood <1.0 Normal . [facility] Comment on above: Result Comment: This test was developed and its performance characteristics determined by [facility]. It has not been cleared or approved by the Food and Drug Administration. Cotinine levels greater than 20.0 are consistent with the use of tobacco or tobacco cessation products. Performed at: [address] [id number] Polymer Specialist: Marcellus Dave MD, Phone: [phone] PERFORMED BY: [address] [place] [address] PATHOLOGIST PLASTIC SURGERY ASSISTANT GENO BENEDICT M.D. Performed By: #### A 1C WTH eA, ALB, [id number], HGB #### [place] [address] [place] #### NICOTINE #### [facility] , Nicotine, Blood <1.0 Normal . [facility] Comment on above: Result Comment: This test was developed and its performance characteristics determined by [facility]. It has not been cleared or approved by the Food and Drug Administration. Nicotine levels greater than 2.0 are consistent with the use of tobacco or tobacco cessation products. Performed By: #### A 1C WTH eA, ALB, [id number], HGB #### [place] [address] [place] #### NICOTINE #### [facility] , Nitrite Test strip Ql (U)Ord ered By: Santa Estrada on 04-15-2024 Nitrite Ql (U) Negative Negative [facility] No Panel InformationOrdered By: Santa Estrada on 04-15-2024 Estimated GFR (CKD-EPI) > 60.0 mL/Min [facility] Creatinine Clearance (Chem N/A [facility] Nucleated erythrocytes [Pres ence] in Blood by Automated countOrdered By: Santa Estrada on 04-15-2024 Nucleated RBC Auto Ql (Bld) 0.1 /100{WBC} 0-0.5 [facility] PST Type and Screenon 2023 ABO and Rh group Nom (Bld) Blood group O Rh(D) positive Normal [facility] Comment on above: Order Comment: Date of Surgery: [id number] Result Comment: PERF ORMED BY: [place] [address] PATHOLOGIST PLASTIC SURGERY ASSISTANT GENO BENEDICT M.D. Platelet mean volume [Entiti c volume] in Blood by Automated countOrdered By: Santa Estrada on 04-15-2024 Platelet mean volume (Bld) [Entitic vol] 7.3 fL Normal 6.3-10.7 [facility] Comment on above: Performed By: #### B MP, CBC #### [facility] [address] [place] [address] #### NICOTINE, FRUC #### [facility] , Platelets [#/volume] in Bloo d by Automated countOrdered By: Santa Estrada on 04-15-2024 Platelets (Bld) [#/Vol] 230 10*3/uL Normal 150-450 [facility] Comment on above: Performed By: #### B MP, CBC #### [facility] [address] [place] [address] [place] #### NICOTINE, FRUC #### [facility] , Potassium [Moles/volume] in Serum or PlasmaOrdered By: Santa Estrada on 04-15-2024 Potassium [Moles/Vol] 4.0 mmol/L Normal 3.5-5.1 [facility] Comment on above: Performed By: #### A 1C [facility] eA, ALB, [id number], HGB #### [place] [address] [place] #### NICOTINE #### [facility] , Protein Auto test strip (U) [Mass/Vol]Ordered By: Santa Estrada on 04-15-2024 Protein (U) [Mass/Vol] Negative Negative [facility] Serum or plasma anion gap de terminationOrdered By: Santa Estrada on 04-15-2024 Anion gap [Moles/Vol] 6.7 mmol/L Normal 6.0-15.0 [facility] Comment on above: Performed By: #### A 1C [facility] eA, ALB, [id number], HGB #### [address] #### NICOTINE #### [facility] , Sodium [Moles/volume] in Ser um or PlasmaOrdered By: Santa Estrada on 04-15-2024 Sodium [Moles/Vol] 135 mmol/L Low 136-145 [facility] Comment on above: Performed By: #### A 1C [facility] eA, ALB, [id number], HGB #### [address] #### NICOTINE #### [facility] , Specific gravity Auto test s trip (U) [Rel density]Ordered By: Santa Estrada on 04-15-2024 Specific gravity (U) [Rel density] 1.009 1.001-1.[address] [facility] Urea nitrogen [Mass/volume] in Serum or PlasmaOrdered By: Santa Estrada on 04-15-2024 Urea nitrogen [Mass/Vol] 10 mg/dL Normal 7-25 [facility] Comment on above: Performed By: #### A 1C WT eA, ALB, [id number], HGB #### [place] [address] [place] #### NICOTINE #### [facility] , Urinalysison 04-15-2024 Appearance (U) Clear Normal Clear [facility] Comment on above: Order Comment: Name Collection Type:: Clean-Voided Midstream Performed By: #### U A #### [address] Bilirubin,Urine Negative Normal Negative [facility] Comment on above: Order Comment: Name Collection Type:: Clean-Voided Midstream Performed By: #### U A #### [address] Glucose Ql (U) Normal Normal Normal [facility] Comment on above: Order Comment: Name Collection Type:: Clean-Voided Midstream Performed By: #### U A #### [address] Ketones Ql (U) Negative Normal Negative [facility] Comment on above: Order Comment: Name Collection Type:: Clean-Voided Midstream Performed By: #### U A #### [address] Leukocyte esterase Test strip Ql (U) Negative Normal Negative [facility] Comment on above: Order Comment: Name Collection Type:: Clean-Voided Midstream Performed By: #### U A #### [address] Nitrite,Urine Negative Normal Negative [facility] Comment on above: Order Comment: Name Collection Type:: Clean-Voided Midstream Performed By: #### U A #### [place] [address] [place] Occult Blood,Urine Negative Normal Negative [facility] Comment on above: Order Comment: Name Collection Type:: Clean-Voided Midstream Result Comment: PERF ORMED BY: [place] [address] PATHOLOGIST PLASTIC SURGERY ASSISTANT GENO BENEDICT M.D. Performed By: #### U A #### [address] Protein,Urine Negative Normal Negative [facility] Comment on above: Order Comment: Name Collection Type:: Clean-Voided Midstream Performed By: #### U A #### [facility] [address] Specificy [place],Urine 1.009 Normal 1.001-1.03 0 [facility] Comment on above: Order Comment: Name Collection Type:: Clean-Voided Midstream Performed By: #### U A #### [facility] [address] Urobilinogen,Urine Normal Normal Normal [facility] Comment on above: Order Comment: Name Collection Type:: Clean-Voided Midstream Performed By: #### U A #### [facility] [address] Urine clarity by refractomet ry automatedOrdered By: Santa Estrada on 04-15-2024 Clarity Refractometry automated (U) Clear Clear [facility] Urine glucose measurement by automated test strip (mass/volume)Ordered By: Santa Estrada on 04-15-2024 Glucose Auto test strip (U) [Mass/Vol] Normal mg/dL Normal [facility] Urine hemoglobin detection b y automated test stripOrdered By: Santa Estrada on 04-15-2024 Hemoglobin Auto test strip Ql (U) Negative Negative [facility] Urine leukocyte esterase det ection by automated test stripOrdered By: Santa Estrada on 04-15-2024 Leukocyte esterase Auto test strip Ql (U) Negative Negative [facility] Urine pH measurement by auto mated test stripOrdered By: Santa Estrada on 04-15-2024 pH (U) 8.0 [pH] Normal 5.0-9.0 [facility] Comment on above: Order Comment: Name Collection Type:: Clean-Voided Midstream Performed By: #### U A #### [facility] [address] [place] [address] Urobilinogen Auto test strip (U) [Mass/Vol]Ordered By: Santa Estrada on 04-15-2024 Urobilinogen (U) [Mass/Vol] Normal mg/dL Normal [facility] CBC with Diffon 03-14-2024 Abs. Basophil 0.06 k/uL Normal 0.00-0.20 [facility] Comment on above: Performed By: #### C DP, VD25, FEBC, AHCV, GLYHGB, HIVCMB, TSHX, FERI, LIPRF, B12, CP #### [place] [address] Polymer Specialist: Isreal Astorga MD Abs.Imm.Granulocyte <0.03 Normal 0.00-0.30 [facility] Comment on above: Performed By: #### C DP, VD25, FEBC, AHCV, GLYHGB, HIVCMB, TSHX, FERI, LIPRF, B12, CP #### [place] [address] Polymer Specialist: Isreal Astorga MD Abs.Neutrophil (Seg) 2.66 k/uL Normal 1.50-8.10 [facility] Comment on above: Performed By: #### C DP, VD25, FEBC, AHCV, GLYHGB, HIVCMB, TSHX, FERI, LIPRF, B12, CP #### [place] [address] Polymer Specialist: Isreal Astorga MD Basophils/100 WBC (Bld) 1 % Normal 0-2 [facility] Comment on above: Performed By: #### C DP, VD25, FEBC, AHCV, GLYHGB, HIVCMB, TSHX, FERI, LIPRF, B12, CP #### [place] [address] Polymer Specialist: Isreal Astorga MD Eosinophils (Bld) [#/Vol] 0.28 10*3/uL Normal 0.00-0.44 [facility] Comment on above: Performed By: #### C DP, VD25, FEBC, AHCV, GLYHGB, HIVCMB, TSHX, FERI, LIPRF, B12, CP #### [place] [address] Polymer Specialist: Isreal Astorga MD Eosinophils/100 WBC (Bld) 5 % High 1-4 [facility] Comment on above: Performed By: #### C DP, VD25, FEBC, AHCV, GLYHGB, HIVCMB, TSHX, FERI, LIPRF, B12, CP #### [address] [id number] Polymer Specialist: Isreal Astorga MD Erythrocyte distribution width (RBC) [Ratio] 12.6 % Normal 11.8-14.4 [facility] Comment on above: Performed By: #### C DP, VD25, FEBC, AHCV, GLYHGB, HIVCMB, TSHX, FERI, LIPRF, B12, CP #### [place] [id number] Polymer Specialist: Isrela Astorga MD Hematocrit (Bld) [Volume fraction] 38.8 % Normal 36.3-47.1 [facility] Comment on above: Performed By: #### C DP, VD25, FEBC, AHCV, GLYHGB, HIVCMB, TSHX, FERI, LIPRF, B12, CP #### [place] [id number] Polymer Specialist: Isreal Astorga MD Hemoglobin (Bld) [Mass/Vol] 12.9 g/dL Normal 11.9-15.1 [facility] Comment on above: Performed By: #### C DP, VD25, FEBC, AHCV, GLYHGB, HIVCMB, TSHX, FERI, LIPRF, B12, CP #### [place] [address] Polymer Specialist: Isreal Astorga MD Immature granulocytes/100 WBC (Bld) 0 % Normal 0 [facility] Comment on above: Performed By: #### C DP, VD25, FEBC, AHCV, GLYHGB, HIVCMB, TSHX, FERI, LIPRF, B12, CP #### [address] [id number] Polymer Specialist: Isreal Astorga MD Lymphocytes (Bld) [#/Vol] 1.69 10*3/uL Normal 1.10-3.70 [facility] Comment on above: Performed By: #### C DP, VD25, FEBC, AHCV, GLYHGB, HIVCMB, TSHX, FERI, LIPRF, B12, CP #### [address] [id number] Polymer Specialist: Isreal Astorga MD Lymphocytes/100 WBC (Bld) 33 % Normal 24-43 [facility] Comment on above: Performed By: #### C DP, VD25, FEBC, AHCV, GLYHGB, HIVCMB, TSHX, FERI, LIPRF, B12, CP #### [address] [id number] Polymer Specialist: Isreal Astorga MD MCH (RBC) [Entitic mass] 29.9 pg Normal 25.2-33.5 [facility] Comment on above: Performed By: #### C DP, VD25, FEBC, AHCV, GLYHGB, HIVCMB, TSHX, FERI, LIPRF, B12, CP #### [address] [id number] Polymer Specialist: Isreal Astorga MD MCHC (RBC) [Mass/Vol] 33.2 g/dL Normal 28.4-34.8 [facility] Comment on above: Performed By: #### C DP, VD25, FEBC, AHCV, GLYHGB, HIVCMB, TSHX, FERI, LIPRF, B12, CP #### [address] [id number] Polymer Specialist: Isreal Astorga MD MCV (RBC) [Entitic vol] 89.8 fL Normal 82.6-102.9 [facility] Comment on above: Performed By: #### C DP, VD25, FEBC, AHCV, GLYHGB, HIVCMB, TSHX, FERI, LIPRF, B12, CP #### [address] [id number] Polymer Specialist: Isreal Astorga MD Monocytes (Bld) [#/Vol] 0.47 10*3/uL Normal 0.10-1.20 [facility] Comment on above: Performed By: #### C DP, VD25, FEBC, AHCV, GLYHGB, HIVCMB, TSHX, FERI, LIPRF, B12, CP #### [address] [id number] Polymer Specialist: Isreal Astorga MD Monocytes/100 WBC (Bld) 9 % Normal 3-12 [facility] Comment on above: Performed By: #### C DP, VD25, FEBC, AHCV, GLYHGB, HIVCMB, TSHX, FERI, LIPRF, B12, CP #### [address] [id number] Polymer Specialist: Isreal Astorga MD Neutrophil (Seg) 52 % Normal 36-65 [facility] Comment on above: Performed By: #### C DP, VD25, FEBC, AHCV, GLYHGB, HIVCMB, TSHX, FERI, LIPRF, B12, CP #### [address] [id number] Polymer Specialist: Isreal Astorga MD NRBC Automated 0.0 per 100 WBC Normal 0.0 [facility] Comment on above: Performed By: #### C DP, VD25, FEBC, AHCV, GLYHGB, HIVCMB, TSHX, FERI, LIPRF, B12, CP #### [address] [id number] Polymer Specialist: Isreal Astorga MD Platelet mean volume (Bld) [Entitic vol] 9.7 fL Normal 8.1-13.5 [facility] Comment on above: Performed By: #### C DP, VD25, FEBC, AHCV, GLYHGB, HIVCMB, TSHX, FERI, LIPRF, B12, CP #### [address] [phone] Polymer Specialist: Isreal Astorga MD Platelets (Bld) [#/Vol] 256 10*3/uL Normal 138-453 [facility] Comment on above: Performed By: #### C DP, VD25, FEBC, AHCV, GLYHGB, HIVCMB, TSHX, FERI, LIPRF, B12, CP #### [place] [id number] Polymer Specialist: Isreal Astorga MD RBC (Bld) [#/Vol] 4.32 10*6/uL Normal 3.95-5.11 [facility] Comment on above: Performed By: #### C DP, VD25, FEBC, AHCV, GLYHGB, HIVCMB, TSHX, FERI, LIPRF, B12, CP #### [place] [address] Polymer Specialist: Isreal Astorga MD WBC (Bld) [#/Vol] 5.2 10*3/uL Normal 3.5-11.3 [facility] Comment on above: Performed By: #### C DP, VD25, FEBC, AHCV, GLYHGB, HIVCMB, TSHX, FERI, LIPRF, B12, CP #### [place] [address] Polymer Specialist: Isreal Astorga MD Comp Metabolic Profon 2023 Albumin [Mass/Vol] 4.2 g/dL Normal 3.5-5.2 [facility] Comment on above: Performed By: #### C DP, VD25, FEBC, AHCV, GLYHGB, HIVCMB, TSHX, FERI, LIPRF, B12, CP #### [address] [phone] Polymer Specialist: Isreal Astorga MD Albumin/Glob Ratio 2.0 Normal 1.0-2.5 [facility] Comment on above: Performed By: #### C DP, VD25, FEBC, AHCV, GLYHGB, HIVCMB, TSHX, FERI, LIPRF, B12, CP #### [address] [id number] Polymer Specialist: Isreal Astorga MD Alkaline Phos 72 U/L Normal 35-104 [facility] Comment on above: Performed By: #### C DP, VD25, FEBC, AHCV, GLYHGB, HIVCMB, TSHX, FERI, LIPRF, B12, CP #### [place] [address] Polymer Specialist: Isreal Astorga MD ALT [Catalytic activity/Vol] 21 U/L Normal 10-35 [facility] Comment on above: Performed By: #### C DP, VD25, FEBC, AHCV, GLYHGB, HIVCMB, TSHX, FERI, LIPRF, B12, CP #### [address] [id number] Polymer Specialist: Isreal Astorga MD Anion gap [Moles/Vol] 8 mmol/L Low 9-16 [facility] Comment on above: Performed By: #### C DP, VD25, FEBC, AHCV, GLYHGB, HIVCMB, TSHX, FERI, LIPRF, B12, CP #### [address] [phone] Polymer Specialist: Isreal Astorga MD AST [Catalytic activity/Vol] 23 U/L Normal 10-35 [facility] Comment on above: Performed By: #### C DP, VD25, FEBC, AHCV, GLYHGB, HIVCMB, TSHX, FERI, LIPRF, B12, CP #### [address] [id number] Polymer Specialist: Isreal Astorga MD Bilirubin [Mass/Vol] 0.4 mg/dL Normal 0.00-1.20 [facility] Comment on above: Performed By: #### C DP, VD25, FEBC, AHCV, GLYHGB, HIVCMB, TSHX, FERI, LIPRF, B12, CP #### [address] [id number] Polymer Specialist: Isreal Astorga MD Calcium [Mass/Vol] 8.8 mg/dL Normal 8.6-10.4 [facility] Comment on above: Performed By: #### C DP, VD25, FEBC, AHCV, GLYHGB, HIVCMB, TSHX, FERI, LIPRF, B12, CP #### [address] [id number] Polymer Specialist: Isreal Astorga MD Chloride [Moles/Vol] 106 mmol/L Normal 98-107 [facility] Comment on above: Performed By: #### C DP, VD25, FEBC, AHCV, GLYHGB, HIVCMB, TSHX, FERI, LIPRF, B12, CP #### [address] [id number] Polymer Specialist: Isreal Astorga MD CO2 [Moles/Vol] 25 mmol/L Normal 20-31 [facility] Comment on above: Performed By: #### C DP, VD25, FEBC, AHCV, GLYHGB, HIVCMB, TSHX, FERI, LIPRF, B12, CP #### [address] [id number] Polymer Specialist: Isreal Astorga MD Creatinine [Mass/Vol] 0.7 mg/dL Normal 0.50-0.90 [facility] Comment on above: Performed By: #### C DP, VD25, FEBC, AHCV, GLYHGB, HIVCMB, TSHX, FERI, LIPRF, B12, CP #### [address] [phone] Polymer Specialist: Isreal Astorga MD GFR/1.73 sq M.predicted among non-blacks MDRD (S/P/Bld) [Vol rate/Area] mL/min/{1.73_m2} Normal >60 [facility] Comment on above: Result Comment: These results [...] HIVCMB, TSHX, FERI, LIPRF, B12, CP #### [address] [id number] Polymer Specialist: Isreal Astorga MD Glucose [Mass/Vol] 94 mg/dL Normal 74-99 [facility] Comment on above: Performed By: #### C DP, VD25, FEBC, AHCV, GLYHGB, HIVCMB, TSHX, FERI, LIPRF, B12, CP #### [facility] [employer] [address] [place] [address] [id number] Polymer Specialist: Isreal Astorga MD Potassium [Moles/Vol] 3.8 mmol/L Normal 3.7-5.3 [facility] Comment on above: Performed By: #### C DP, VD25, FEBC, AHCV, GLYHGB, HIVCMB, TSHX, FERI, LIPRF, B12, CP #### [address] [id number] Polymer Specialist: Isreal Astorga MD Protein [Mass/Vol] 6.7 g/dL Normal 6.6-8.7 [facility] Comment on above: Performed By: #### C DP, VD25, FEBC, AHCV, GLYHGB, HIVCMB, TSHX, FERI, LIPRF, B12, CP #### [address] [phone] Polymer Specialist: Isreal Astorga MD Sodium [Moles/Vol] 139 mmol/L Normal 136-145 [facility] Comment on above: Performed By: #### C DP, VD25, FEBC, AHCV, GLYHGB, HIVCMB, TSHX, FERI, LIPRF, B12, CP #### [address] [id number] Polymer Specialist: Isreal Astorga MD Urea nitrogen [Mass/Vol] 12 mg/dL Normal 6-20 [facility] Comment on above: Performed By: #### C DP, VD25, FEBC, AHCV, GLYHGB, HIVCMB, TSHX, FERI, LIPRF, B12, CP #### [address] [phone] Polymer Specialist: Isreal Astorga MD Ferritinon 7 Ferritin [Mass/Vol] 133 ng/mL Normal 13-150 [facility] Comment on above: Result Comment: FERRITIN Reference Ranges: Adult Males 20 - 60 years: 30 - 400 ng/mL Adult females 17 - 60 years: 13 - 150 ng/mL Adults greater than 60 years: no established reference range Pediatrics: no established reference range Performed By: #### C DP, VD25, FEBC, AHCV, GLYHGB, HIVCMB, TSHX, FERI, LIPRF, B12, CP #### [address] [phone] Polymer Specialist: Isreal Astorga MD HIV Ag/Abon 03-14-2024 HIV Ag/Ab Non-Reactive Normal NR [facility] Comment on above: Result Comment: No l aboratory evidence of HIV infection. If acute HIV infection is suspected, consider testing for HIV-1 RNA. Performed By: #### C DP, VD25, FEBC, AHCV, GLYHGB, HIVCMB, TSHX, FERI, LIPRF, B12, CP #### [address] [id number] Polymer Specialist: Isreal Astorga MD Hemoglobin A1Con 03-14-2024 Glucose [Mass/Vol] 94 mg/dL Normal [facility] Comment on above: Result Comment: The ADA and AACC recommend providing the estimated average glucose result to permit better patient understanding of their HBA1c result. Performed By: #### C DP, VD25, FEBC, AHCV, GLYHGB, HIVCMB, TSHX, FERI, LIPRF, B12, CP #### [address] [phone] Polymer Specialist: Isreal Astorga MD HbA1c (Bld) [Mass fraction] 4.9 % Normal 4.0-6.0 [facility] Comment on above: Performed By: #### C DP, VD25, FEBC, AHCV, GLYHGB, HIVCMB, TSHX, FERI, LIPRF, B12, CP #### [address] [phone] Polymer Specialist: Isreal Astorga MD Hep C Abon 03-14-2024 Hep C Ab Non-Reactive Normal NR [facility] Comment on above: Result Comment: The hepatitis [...] HIVCMB, TSHX, FERI, LIPRF, B12, CP #### [facility] [address] [place], [place] [phone] Polymer Specialist: Isreal Astorga MD Iron Binding Cap.on 03-14-20 24 % Fe Saturation 44 % Normal 20-55 [facility] Comment on above: Performed By: #### C DP, VD25, FEBC, AHCV, GLYHGB, HIVCMB, TSHX, FERI, LIPRF, B12, CP #### [address] [phone] Polymer Specialist: Isreal Astorga MD Iron [Mass/Vol] 107 ug/dL Normal 37-145 [facility] Comment on above: Performed By: #### C DP, VD25, FEBC, AHCV, GLYHGB, HIVCMB, TSHX, FERI, LIPRF, B12, CP #### [address] [phone] Polymer Specialist: Isreal Astorga MD Total Fe Binding Cap 243 ug/dL Low 250-450 [facility] Comment on above: Performed By: #### C DP, VD25, FEBC, AHCV, GLYHGB, HIVCMB, TSHX, FERI, LIPRF, B12, CP #### [facility] [employer] [address] [place] [address] [phone] Polymer Specialist: Isreal Astorga MD Unbound Fe Bind Cap 136 ug/dL Normal 112-347 [facility] Comment on above: Performed By: #### C DP, VD25, FEBC, AHCV, GLYHGB, HIVCMB, TSHX, FERI, LIPRF, B12, CP #### [address] [phone] Polymer Specialist: Isreal Astorga MD Lipid Prof, Fastingon 2023 Cholesterol [Mass/Vol] 174 mg/dL Normal 0-199 [facility] Comment on above: Result Comment: Cholesterol Guidelines: <200 Desirable 200-240 Borderline >240 Undesirable Performed By: #### C DP, VD25, FEBC, AHCV, GLYHGB, HIVCMB, TSHX, FERI, LIPRF, B12, CP #### [address] [phone] Polymer Specialist: Isreal Astorga MD Cholesterol in HDL [Mass/Vol] 57 mg/dL Normal >40 [facility] Comment on above: Result Comment: HDL Guidelines: <40 Undesirable 40-59 Borderline >59 Desirable Performed By: #### C DP, VD25, FEBC, AHCV, GLYHGB, HIVCMB, TSHX, FERI, LIPRF, B12, CP #### [place] [id number] Polymer Specialist: Isreal Astorga MD Cholesterol in LDL [Mass/Vol] 96 mg/dL Normal 0-100 [facility] Comment on above: Result Comment: LDL Guidelines: <100 Desirable 100-129 Near to/above Desirable 130-159 Borderline >159 Undesirable Direct (measured) LDL and calculated LDL are not interchangeable tests. Performed By: #### C DP, VD25, FEBC, AHCV, GLYHGB, HIVCMB, TSHX, FERI, LIPRF, B12, CP #### [place] [phone] Polymer Specialist: Isreal Astorga MD Cholesterol in VLDL [Mass/Vol] 22 mg/dL Normal [facility] Comment on above: Performed By: #### C DP, VD25, FEBC, AHCV, GLYHGB, HIVCMB, TSHX, FERI, LIPRF, B12, CP #### [address] [phone] Polymer Specialist: Isreal Astorga MD Cholesterol.total/Chol esterol in HDL [Mass ratio] 3.0 {ratio} Normal [facility] Comment on above: Performed By: #### C DP, VD25, FEBC, AHCV, GLYHGB, HIVCMB, TSHX, FERI, LIPRF, B12, CP #### [facility] [employer] [address] [place] [address] [id number] Polymer Specialist: Isreal Astorga MD Triglyceride,Fasting 108 mg/dL Normal 0-149 [facility] Comment on above: Result Comment: Triglyceride Guidelines: <150 Desirable 150-199 Borderline 200-499 High >499 Very high Based on AHA Guidelines for fasting triglyceride, June 2012. Performed By: #### C DP, VD25, FEBC, AHCV, GLYHGB, HIVCMB, TSHX, FERI, LIPRF, B12, CP #### [facility] [address] [place] [phone] Polymer Specialist: Isreal Astorga MD TSH w/reflex to FT4on 2023 Thyroid Stim. Horm. 2.37 uIU/mL Normal 0.27-4.20 [facility] Comment on above: Performed By: #### C DP, VD25, FEBC, AHCV, GLYHGB, HIVCMB, TSHX, FERI, LIPRF, B12, CP #### [facility] [address] [place] [address] [phone] Polymer Specialist: Isreal Astorga MD Vitamin B12on 03-14-2024 Cobalamin (Vitamin B12) [Mass/Vol] 695 pg/mL Normal 232-1245 [facility] Comment on above: Performed By: #### C DP, VD25, FEBC, AHCV, GLYHGB, HIVCMB, TSHX, FERI, LIPRF, B12, CP #### [facility] [employer] [address] [place] [address] [phone] Polymer Specialist: Isreal Astorga MD Vitamin D 25 OHon 03-14-2024 Vitamin D 25 OH 17.4 ng/mL Low 30.0-100.0 [facility] Comment on above: Result Comment: Reference Range: Vitamin D status Range Deficiency <20 ng/mL Mild Deficiency 20-30 ng/mL Sufficiency 30-100 ng/mL Toxicity >100 ng/mL Performed By: #### C DP, VD25, FEBC, AHCV, GLYHGB, HIVCMB, TSHX, FERI, LIPRF, B12, CP #### [facility] [address] [place] [address] Polymer Specialist: Isreal Astorga MD Patient Handouton 03-13-2024 Patient Handout Custom [facility] [address] [facility], [address], [place] Date: 03/13/2024 RE: Lucila Jacques To whom it may concern, Lucila has been under my professional care due to a surgical procedure performed on 02/27/2024. She may return to work with no restrictions on 03/20/2024. Thank you, Peter Booth M.D. [facility] Release of Informationon Release of Information [id number]#1.00OTGTIFF [facility] A1C with Estimated Average G luon 03-12-2024 Glucose [Mass/Vol] 105 mg/dL Normal [facility] Comment on above: Result Comment: PERF ORMED BY: [place] [address] PATHOLOGIST PLASTIC SURGERY ASSISTANT GENO BENEDICT M.D. Performed By: #### A 1C WTH eA, ALB, [id number], HGB #### [place] [address] [place] #### NICOTINE #### [facility] , Albumin Levelon 03-12-2024 Albumin [Mass/Vol] 4.0 g/dL Normal 3.5-5.7 [facility] Comment on above: Performed By: #### A 1C WTH eA, ALB, [id number], HGB #### [place] [address] [place] #### NICOTINE #### [facility] , Albumin [Mass/volume] in Ser um or Plasma by Bromocresol green (BCG) dye binding methoOrdered By: Santa Estrada on 03-12-2024 Albumin BCG dye [Mass/Vol] 4.0 g/dL 3.5-5.7 [facility] Cotinine [Mass/volume] in Se rum or PlasmaOrdered By: Santa Estrada on 03-12-2024 Cotinine [Mass/Vol] 3.7 ng/mL . [facility] Comment on above: This test was develo ped and its performance characteristicsdetermined by [facility]. It has not been cleared orapproved by the Food and Drug Administration.Cotinine levels greater than 20.0 are consistent with theuse of tobacco or tobacco cessation products.Performed at: [address] [id number] Director: Marcellus Dave MD, Phone: [phone] Glucose mean value [Mass/vol ume] in Blood Estimated from glycated hemoglobinOrdered By: Santa Estrada on 03-12-2024 Average glucose Estimated from glycated hemoglobin (Bld) [Mass/Vol] 105 mg/dL [facility] Hemoglobin A1c percentageOrd ered By: Santa Estrada on 03-12-2024 HbA1c (Bld) [Mass fraction] 5.3 % Normal 4.3-5.6 [facility] Comment on above: Increased risk for d iabetes: 5.7 - 6.4diabetes: >6.4glycemic control for adults with diabetes: <7.0 Result Comment: Incr eased risk for diabetes: 5.7 - 6.4 diabetes: >6.4 glycemic control for adults with diabetes: <7.0 Performed By: #### A 1C WTH eA, ALB, [id number], HGB #### [address] #### NICOTINE #### [facility] , Hemoglobin [Mass/volume] in BloodOrdered By: Santa Estrada on 03-12-2024 Hemoglobin (Bld) [Mass/Vol] 12.8 g/dL Normal 11.8-15.4 [facility] Comment on above: Result Comment: PERF ORMED BY: [facility] [address] [place] [address] PATHOLOGIST PLASTIC SURGERY ASSISTANT GENO BENEDICT M.D. Performed By: #### A 1C WTH eA, ALB, [id number], HGB #### [place] [address] [place] #### NICOTINE #### [facility] , MRSA Cultureon 03-12-2024 MRSA Culture No MRSA Isolated 2 D ays PERFORMED BY: [place] [address] PATHOLOGIST PLASTIC SURGERY ASSISTANT GENO BENEDICT M.D. Normal [facility] Comment on above: Performed By: #### C UMRSA #### [address] Nicotine [Mass/volume] in Se rum or PlasmaOrdered By: Santa Estrada on 03-12-2024 Nicotine [Mass/Vol] <1.0 ng/mL . [facility] Comment on above: This test was develo ped and its performance characteristicsdetermined by [facility]. It has not been cleared orapproved by the Food and Drug Administration.Nicotine levels greater than 2.0 are consistent with theuse of tobacco or tobacco cessation products. Nicotine/Cotinine Bloodon Cotinine, Blood 3.7 ng/mL Normal . [facility] Comment on above: Result Comment: This test was developed and its performance characteristics determined by [facility]. It has not been cleared or approved by the Food and Drug Administration. Cotinine levels greater than 20.0 are consistent with the use of tobacco or tobacco cessation products. Performed at: [facility] [id number] Polymer Specialist: Marcellus Dave MD, Phone: [phone] PERFORMED BY: [place] [address] PATHOLOGIST PLASTIC SURGERY ASSISTANT GENO BENEDICT M.D. Performed By: #### A 1C WTH eA, ALB, [id number], HGB #### [place] [address] [place] #### NICOTINE #### [facility] , Nicotine, Blood <1.0 Normal . [facility] Comment on above: Result Comment: This test was developed and its performance characteristics determined by [facility]. It has not been cleared or approved by the Food and Drug Administration. Nicotine levels greater than 2.0 are consistent with the use of tobacco or tobacco cessation products. Performed By: #### A 1C WTH eA, ALB, [id number], HGB #### [address] #### NICOTINE #### [facility] , Vitamin D 25 Hydroxy Totalon 03-12-2024 Vitamin D 25 Hydroxy Total 18.4 ng/mL Low 30-100 [facility] Comment on above: Result Comment: EVE MIN D STATUS 25(OH)VITAMIN D RANGE (ng/mL) Deficient <20 Insufficient 20 to <30 Sufficient 30 to 100 Reference: Juliano Vila, Tate VELAZQUEZ, et al. Evaluation,treatment, and prevention of vitamin D deficiency; an Endocrine Society clinical practice guideline. JCEM. 2010; 96(7):1911-. PERFORMED BY: [place] [address] PATHOLOGIST PLASTIC SURGERY ASSISTANT GENO BENEDICT M.D. Performed By: #### A 1C WTH eA, ALB, [id number], HGB #### [address] #### NICOTINE #### [facility] , Vitamin D+Metabolites [Mass/ volume] in Serum or PlasmaOrdered By: Santa Estrada on 03-12-2024 Vitamin D+Metabolites [Mass/Vol] 18.4 ng/mL Low 30-100 [facility] Comment on above: VITAMIN D STATUS [...] (Unsp spec) No MRSA Isolated 2 Days [facility] Coding Summaryon 03-07-2024 Coding Summary HTMLBase 64 OcgpeoldGTi1lNs+PGhlYWQ+PE1 FMPZyD75bvXKcdP4pJ7TABVpBKl hiPCGPCBuLLvVruuNvHY9mjYCoR XJu IC8+KL9xWVDnAagmqKGbp6B0yAO 2M31ihs3yYVbfxKI2MXGhOvMlgd fum3ctzPw1GIzxTsueXtIj UBCnrS40SPI3bF66Tu10aWMlgEO gq9uttMt5PbVuWZTnJSL1bYejFC ree0MmAHKpX64snCIbh6R6 PUJfhLsseXMmZmTcpBU1sA8sQXz ebceay3rrrfdzOrf0yh71uUOhp3 M5tAK0S9ThynO6USEisLAo LvtjmSCWoX9fzuiwe4jqdcrnEwC qJKRsEMj8XVy3QRUtwFtqXzZrMG 33CAG2UCDjrxXwZ5RjONQc pDoySnU3k9X6Fx7MM2NAJphfS6F NTUFSWTwvdGQ+GJ19yt79J4VbMr gjMwp1OSEdFEC3uSO3nA0i ZFUlHLssj2V0jGE2L3YjgsXydt6 uf2dhDMOfIUcaU33taNIls0S9NM BryCE8EBGbrZwxHvCniO81 Oyc+GVAryUgzc3YrBwzal8nfy9s jeHv2EbilNAOseiFtrUddCUG5f4 HpSf4xFVYfnFF6tKN8pZ2i PmSlQmT7YMphH087KzNrwGLmPwn kY74eW0BgmFX+TQLqHrx1JKYjrG vfJR5oR3YzFVYakpzbiSMc mTteCG8iUCWrgcxhCPTeqO4pLBD sD3r8SnXpPhQ8MGdwS1WoXYBrio daBu86qH8zXrOaZlI0AUap S8LcguR9TVDdkMRqLQmaPAI0S18 vc6W3EMLlKYFtFZU5mFV0tE5heQ lnbjogbGVmdDsgdmVydGlj TWxbFPdbA434DAQalYucAoOdNAq uZyBEYXRlOiAgMDYvMTMvMjAyND wvdGQ+GQLmPWK8eQiiVWEr sBUqSNshXq6vdIswvAglNL3dUOT myibyJONhxM3wZQUzdAPdzJubMK 2vUCEnsxjte994XgOdFTL4 PCUyzXFsH2VplP1xLhOnHMFaJEY eH8VhrUFrGWqpS300DUmqMgS5FV LbtkYxG3HkDWIctFjgXfU0 w4P8Rq6Xa8CwbaooV5RchGQnHaT nJfebKZo5V1BrTxjlxPG+PC90YW XhQN30UMk1NHB6lTsmCIyi MHOcW3PgkC1lVhLsZQWhHXCeEdv +PHRhYmxlIHdpZHRoPScxMDAlJy PxvZwjGC6cSl0qROLeXZVz uNnlqBAxAtTtt8hbRTWlROnvKC6 faNrsM1KttKD1KOKld3g2Kb05L8 4hK5JadQO+BBQklDS3hBJ9 dG8aOyZiUlW0SBzbJ470RtPvoOU rMhkcu5zvp4hoeDb6NtL2HILehi PoyPypGEA5p4AiTr86G70d IHdpZHRoPSIxNSUiIHZhbGlnbj0 toA1qAn4+ITLmeGB7lPQ6fL8qAe EnLeR4FAxhC725SwAczZNm Cgitc4xxa9wvePo3NfPlADJpraW yfVndSFP1h9EmJj01G7GsoQwji5 SuTpu5wb93pLLqn1F0qSR6 B6MzBFEwtnzygVVuwQktCG9yQKM dgozhCJDudT9fVNMgV1m4VpRtHd D4JNfqB2JzhlS9GKVxtIJy EMOqfTVEnJ1iwlabi7ugkqumRuN cDTLrZYc3SLv4FCJdrAosPxVsDT F6OzL7FPX9kTBacF5fuPrv pwtrlW6gDyz+PZL9pFTbvIMYYN3 lOjwvdGQ+CJGpDIE4wKjvWHuqNG MqxJ7pVVAbP7u2HvPiZuR4 RFxoY3RdtjE6ARPweFShHJYvfZS HnR3dzcyju4nlboaeObJnYQOrQI b7HBb4NWIafUwjFtBmTAB3 FvK6WQZ5eFHagD9zyMyaesjklC9 wOyc+EdjlsAmbLYP2GRz0M0XgAx a3YKOaeWkpVA9xsGPrRZgk Jk3znMiyhYnqWX8bGMDqytlew36 3LyThq6pdXGAceGQyWVqfLEI6A6 9sb6P5EYGjZZUsHUR7aYK8 kB4koZtqlshwxRUieEsavrCfwOk kVGyoAMkzD312PPBsqYssTtWsXT g6E6WsOjm3XWHckJmxGS3w xWDbLTqyDz7kuPvxtPjjTP2uFNW nfhwga867EtBap0fhQBQljXWwMK oiARM1V59nl1F9KJVaLYLo YUU0jDO4qQ6ueLqpvizdqMTpjYc bbsNjoHtbPJsiYVwnA779URYqbY zvYmZtzHy4N2SmEbn2VQAx uHjyMA0wxYAfVQelAd5paTfjrSl pBN3kXBXznztqg457RtGeb9ojUV EvyRQeMSxcVMX6U07tb3I3 CBFgGLJwHAD6zRU4tC8ivOotyto gbGVmdDsgdmVydGljYWwtYWxpZ2 46IHRvcDsnPlBhdGllbnQg UCliXXk8J8FgXsoayAQ+XJ89XSP aZD12yCYyxQElb6dlbBz4NgAwKR GrJME5sVwxHCeyb8FjBHZm C42qhTYbo2Y6VURcfAkooKWlSvA ktZN8bT0vXCtehzxjh7uqpywfKj qxn3alzt23uB07R92dGEbz MEGjNMGhBHSsQJJwqRxuoo4rvD0 wIi8+XMUzlTF6kNT8jG7fIPNfJg R2OHmlG628AaWyaFBtRncg j5bjv1naqZx1CjI4OHHxagKawPz dDXZ5h7ZaVv90Q35mNLjjAWWgOG JcSGEhPJHycUkzep5dnP3x Ii8+JUIfdCV6kIS2eS6mWmMpIhT 4TIdwW343VhLqnELlEusmQ39rD1 JvdXA+GPIpZta4YOPipLnc PC0dhZNlVXeuSj2mDWM8SnIdDwD pRXmzC1RsFXEgvsukliumsJB6NM WcYXRvhI73Zl7tiOhtZEBf jKHKmZ7qcmyle4wcopvcOdZqBQI hSCa2PFl2QBFstBhpPzUhIWI7Sw L2KZK3dWSrlN0adQcgpfrv gY5aM9ZeZPIzicquNv40hS1dYjY eYtS8ELbxWst+UmHNPsnyH4SVFS eCWpWQTOZ5O2KoEqt9VRRn kJdwYW6kyLJqKBivXv5dlDioyPg zDV0nFBTbtkgoFOKuqB1xUDIbeS XsgShkOZ8mOUNnmobjq038 TkCbBQY2DQKzlVLcY9WdmJ6lVyP mLBVhXDRnJ2SjqIOxXOdlA852ID xcOxF8RHDpoyZqO3NaVWQb jSmsSdK3d5Q4Ib6vEE9oVu5nEGq 9PJ50QY01sJVqs1X7wWF5F6YcTK GiazhmwxxwkZD2BHMyQQDr dN37uSPnUOrxLz5ub1Y0e101PVR uYUXklO42Fp1tlSijKPGwtNZToT 4ocjnnu6uqjwloNzGfZCKv IBl1MYi5CFYohDfnUhCcWXJ6XbO 6RDR6fBBigR7jwZonudqhbV9fLy c+PuBdTYQsjuU2N5BkTrv9 BQBiqDsjGG1dpWRbETbeCc1qmYk gvXlxRQ1dNDDnzbspXYZvhR4oFP IpaRVowXtqAG6bVXVtmhnt s297DxGgNLV9DUWdrWCgE3CdxP2 zCeKgHBXlDBOjK8WgwKFmMZnsS3 33YVdaZcY4IRTippOiR5Bd BUBoeVcuMoO3e3F3Nb6BXC5WZKS 8F3XtCla7QTDtkHtmGR0uiHXwQJ hsUl2dnGycxIeqSW7cGTFk rbqoLFMglY1bDPPbjXCmsTgtKZ9 mYCKkhpabo498WqYiQQM2NXAtdT ElS0IddJ3eJvOaKJGpLYWn R3KewCSePDvdI967BSanHlB4ORD gstHsY9UoBOZnwJibUhI0c3S5Db 5PYnNlcnZhdGlvbjwvdGQ+ IC47wp01T3RrBsjuCht7WTFjXFM 5lFV5wT6hGAAkDHafp4J0zEW7D0 JlxoBrwa2dt0ceFLJqLKgx M06bhYCxr0H5QHArqXQ0HKVlpNp bPxGsfN37Amd+OLUaeTeba1GvIt gin4pdj9hyuRx3GdMkHMYp cgPdvUrzIAQ2e9KxEx65Y38pAOr uXGPeJNVeURVoQWJzlTqgsd2eoJ 9wIi8+MNBzwUA6jWE4oW3m SbEeNvZ6FJahK665JoCfwFNyDzx vm4uwb6qgpUi6IeImKBFqukDerO myVYM9y5LnXn21D1NthOfk t6LfNnq2kn60rMYci0N1iNH8Z4S oCPErnygjxGDdeXguFS4wNAOjeg nwYECgnM9sIXUoL0j4PuMf YuR0RPwsQ7KuwxC0IQBauHHbHSJ syHXNxC0fbnyzx1pwccwuIiPaMD YcHMw9ESq5HVOoyHigNrAq PFO9TjG6BCL0iAAssU2csDczzkc qkA3vJdn+EXs4p2ggjNIgYD5syQ R1FH82QD28rLVhy7O9bQQ2 T6WwODApyawpgalvxYF4MHIwTNH kvI10Jx0zjDbeQw0eTRYkCIH8UN UtiRGsC0QfgU3fYaExLXNi GIIvL3WpeGYaOHivJ594FWetMgE 0CXClmmYmH7MdLDYwlOpgEfE5l0 L4Ko7ITX59DW67HL37cOFe b0G1iJK0T1QzNEOhbfjegpvveUY 0GXJcBITdbU58Ko6ruXpzDc3hFG YkIJO3DZXzpFJmI0ImkD6y IhWpGRRbMVJwN4PeoMUpFKwvF89 5QRedTwY7LDPjkuEgK9ViQGCzlV fhVqD9m7P3Il9TKq65ED28 PP39jRYet0N0uMK2Y8XaEGVyggu hlehbuAV2DLQdVCWpuU79Sh3odS imKj8aPGCnTHW6AZChcQRd F0BifW4oHaOzICKmEEUfZ2GadJG aEXwjN404YWgfRrN0BZScrtPxD3 QfWJCtzPqpXfO0l4H7Eg0K NGnnvcx8B5AgWzudwFI+IF98YOQ cGR41zGRmeKWlh7xfnEa6TbXoMQ IpCTR8fAgpSWgpq3WoFHFa Y29 (more content not included)... Normal [facility] Lab - AP Resultson 4 Lab - AP Results [id number]#1.00OTGTIFF Normal [facility] MR KNEE LT WO CONTon 024 MR [...] Mason Easley DO on 03/04/2024 9:20 AM IGenevieve MD have personally reviewed the image(s) and agree with and/or edited the report Finalized by Genevieve Mckenzie MD on 03/04/2024 9:59 AM Normal [facility] Consent Formson 02-29-2024 Consent Forms [id number]#1.00OTGTIFF [facility] Consent Formson 02-28-2024 Consent Forms [id number]#1.00OTGTIFF [facility] Consent Forms [id number]#1.00OTGTIFF [facility] MAGR Postoperative Recordon 02-28-2024 MAGR Postoperative Record MAGR Phase II Record Summary Primary Physician: Peter Booth MD Finalized Date/Time: 02/28/24 07:49:14 Pt. Name: LUCILA JACQUES/Sex: 1990 FEMALE Med Rec #: [id number] Physician: Param Michelle DO Financial #: [id number] Pt. Type: O [facility] Admit/Disch: 02/26/24 22:40:28 - 02/27/24 18:45:00 Institution: [...] Signed By: Mya Villar RN 02/28/24 07:49 [facility] Outside Recordson 02-28-2024 Outside Records [id number][facility] Telemetry Strips [id number]#1.[facility] .Auto Diff 1on 02-27-2024 Auto [place] % 8 % Normal 1-12 [facility] Comment on above: Performed By: #### 1 [id number], [id number], 1405476, 4718305165, 6927904, 0176471, 5349944, 8237919 #### [facility] (DEFAULT) [address] [place] [address] Baso Abs# 0.0 x10 Normal 0.0-0.2 [facility] Comment on above: Performed By: #### 1 6423050, 0296729850, 1492378, 0976341059, 3979953, 0029484, 1839351, 3794554 #### [facility] (DEFAULT) [address] [place] [address] 92411 Basophils/100 WBC (Bld) 0.4 % Normal 0.2-2.0 [facility] Comment on above: Performed By: #### 1 6434435, 4443091279, 5068347, 4515419289, 2725682, 5565836, 1541869, 7156876 #### [facility] (DEFAULT) [address] [place] [address]90 Eos Abs# 0.1 x10 Normal 0.0-0.4 [facility] Comment on above: Performed By: #### 1 7955616, 6198231369, 0285860, 7180951368, 3309443, 2387640, 9838425, 8064649 #### [facility] (DEFAULT) [address] [place] [address] 61015 Eosinophils/100 WBC (Bld) 1.1 % Normal 0.9-4.0 [facility] Comment on above: Performed By: #### 1 7160595, 0164420743, 5638851, 9787412694, 8201058, 4796872, 6743713, 6454834 #### [facility] (DEFAULT) [address] [place] [address]2013 Lymph Abs# 2.1 x10 Normal 1.3-2.9 [facility] Comment on above: Performed By: #### 1 9010840, 0290034746, 1014648, 7739905279, 0651632, 5003866, 4841588, 3942169 #### [facility] (DEFAULT) [address] [place] [address] 15408 Lymphocytes/100 WBC (Bld) 28 % Normal 14-48 [facility] Comment on above: Performed By: #### 1 4115600, 5303044397, 7764194, 9599098781, 6165668, 0726976, 8390382, 2272197 #### [facility] (DEFAULT) [address] [place] [address] [place] Abs# 0.6 x10 Normal 0.0-0.8 [facility] Comment on above: Performed By: #### 1 8648752, 8996147175, 4683828, 0152720273, 1528695, 2530835, 8822919, 4998413 #### [facility] (DEFAULT) [address] [place] [address]0127 Neut Abs# 4.8 x10 Normal 1.5-9.2 [facility] Comment on above: Performed By: #### 1 9052286, 6427131549, 5080291, 1293315813, 5044799, 1801380, 0354903, 2570282 #### [facility] (DEFAULT) [address] [place] [address] 69256 Neutrophils/100 WBC (Bld) 63 % Normal 44-88 [facility] Comment on above: Performed By: #### 1 3446141, 4694447319, 3446875, 3047458221, 6533714, 9379438, 6596211, 4903162 #### [facility] (DEFAULT) [address] [place] [address]35 Amylaseon 02-27-2024 Amylase [Catalytic activity/Vol] 51.0 U/L Normal 28.0-100.0 [facility] Comment on above: Performed By: #### 1 3212817, 2378458933, 4034799, 6232525121, 8610430, 4062568, 1623385, 3352798 ####[facility] (DEFAULT)[address] [place] [address] Anesthesia Noteon 02-27-2024 Anesthesia Note Patient: LIOR JACQUES IN MAXINE [...] on: 02/27/2024 12:58 EDT] Juliano Peterson DO [facility] Anesthesia Note Patient: LIOR JACQUES IN MAXINE [...] history): All Problems Anxiety / SNOMED CT 25878555 / Confirmed Arthritis of left knee / SNOMED CT 762440471485044 / Confirmed Body mass index 40+ - severely obese / SNOMED CT 3228481146 / Confirmed Genital warts / SNOMED CT 071823208 / Confirmed History of arthroscopy of knee joint / SNOMED CT 5247280153 / Confirmed History of bariatric surgical procedure. / SNOMED CT 4556649672 / Confirmed Gastric bypass status for obesity / SNOMED CT 5891718819 / Confirmed H/O syncope / SNOMED CT 7524507859 / Confirmed Hypokalemia / SNOMED CT 96718642 / Confirmed Hypomagnesemia / SNOMED CT 706673069 / Confirmed Mixed anxiety and depressive disorder / SNOMED CT 266093520 / Confirmed Morbid obesity / SNOMED CT 449504806 / Confirmed Peripheral venous insufficiency / SNOMED CT 15408501 / Confirmed Sacroiliac joint pain / SNOMED CT 997122598 / Confirmed Varicose veins of left lower limb / SNOMED CT 212774996450345 / Confirmed Resolved: / SNOMED CT 985664132 Histories Family History: Clotting disorder Mother Diabetes mellitus type 2 Father Grandmother (Paternal) High blood pressure Father PVD - Peripheral vascular disease Mother GERD - Gastro-esophageal reflux disease Father Procedure history: CT guided nerve block ([id number]) on 01/12/2024 at 33 Years. Comments: 01/12/2024 11:39 Cuong Landa MA LEFT GENICULAR microphlebectomy in the month of 07/2017 at 27 Years. Comments: 03/19/2019 10:05 Margaret Catalan DIRECTOR OF FINANCIAL AID left leg Gastric sleeve ([id number]) in the month of 07/2016 at 26 Years. section (72424523) on 11/10/2014 at 24 Years. section (85816976) on 06/29/2012 at 21 Years. Gastric band (3705576088). Social History Electronic Cigarette/Vaping Assessment Electronic Cigarette [...] (FEB 26 (more content not included)... Normal [facility] CBC w/ Auto Diffon Erythrocyte distribution width (RBC) [Ratio] 13.3 % Normal 11.5-15.0 [facility] Comment on above: Performed By: #### 1 4201467, 2154432349, 4110630, 7272297146, 2542166, 2509877, 5755897, 6653659 #### [facility] (DEFAULT) [address] [place] [address] 26352 Hematocrit (Bld) [Volume fraction] 42.2 % High 33.7-40.4 [facility] Comment on above: Performed By: #### 1 8145904, 2573748807, 9023752, 6841987816, 3194819, 4776264, 9995101, 0557068 #### [facility] (DEFAULT) [address] [place] [address] 35332 Hemoglobin (Bld) [Mass/Vol] 14.3 g/dL Normal 11.3-15.9 [facility] Comment on above: Performed By: #### 1 5076265, 9921408038, 7099175, 8055509470, 8350882, 3649929, 1060660, 1902038 #### [facility] (DEFAULT) [address] [place] [address] 14738 MCH (RBC) [Entitic mass] 30 pg Normal 24-34 [facility] Comment on above: Performed By: #### 1 4592971, 1723507965, 9820463, 7487089331, 8333186, 2728102, 8788661, 3296093 #### [facility] (DEFAULT) [address] [place] [address] 28160 MCHC (RBC) [Mass/Vol] 34 g/dL Normal 26-37 [facility] Comment on above: Performed By: #### 1 4395301, 1477335362, 3611996, 7401407963, 7831824, 8962264, 0791393, 6500584 #### [facility] (DEFAULT) [address] [place] [address] 71998 MCV (RBC) [Entitic vol] 90 fL Normal 81-100 [facility] Comment on above: Performed By: #### 1 3594777, [id number], 0077635, 4545175097, 0159914, 4166232, 3816341, 4483026 #### [facility] (DEFAULT) [address] [place] [address] 82792 Platelet 243 x10 Normal 138-427 [facility] Comment on above: Performed By: #### 1 0600888, 8483567599, 6819332, 5878491403, 8280866, 1873510, 3578074, 9044064 #### [facility] (DEFAULT) [address] [place] [address] 28196 Platelet mean volume (Bld) [Entitic vol] 8.0 fL Normal 6.3-10.2 [facility] Comment on above: Performed By: #### 1 9132341, [id number], 2615033, 1075073282, 6261012, 7312247, 8573691, 6424516 #### [facility] (DEFAULT) [address] [place] [address] RBC 4.70 x10 Normal 3.70-5.30 [facility] Comment on above: Performed By: #### 1 0085881, 0302391075, 5808716, 8446721044, 6739601, 5854325, 0045837, 1875865 #### [facility] (DEFAULT) [address] [place] [address] WBC 7.7 x10 Normal 3.5-10.5 [facility] Comment on above: Performed By: #### 1 2415583, 0235925897, 4473873, 3964177956, 5992323, 0209586, 1092845, 3095418 #### [facility] (DEFAULT) [address] [place] [address] Man Diff? Auto Invalid Interpretation Code [facility] Comment on above: Performed By: #### 1 9768701, 3362763523, 1796235, 2408981025, 3617449, 7041648, 0637715, 5524940 #### [facility] (DEFAULT) [address] [place] [address] CMP Standardon 02-27-2024 eGFR Non AA >60 Invalid Interpretation Code [facility] Comment on above: Performed By: #### 1 1467750, 2011850348, 9635570, 5870818258, 6533119, 6679102, 3803914, 2825719 #### [facility] (DEFAULT) [address] [place] [address] eGFR AA >60 Invalid Interpretation Code [facility] Comment on above: Performed By: #### 1 9325359, 1173647177, 3383671, 3239690905, 4363657, 9775753, 2585025, 1689020 #### [facility] (DEFAULT) [address] [place] [address] Albumin [Mass/Vol] 4.2 g/dL Normal 3.5-5.0 [facility] Comment on above: Performed By: #### 1 3787136, 1964064678, 3992183, 8700893213, 1334945, 0229420, 9955625, 6288164 #### [facility] (DEFAULT) [address] [place] [address] 01967 Albumin/Globulin [Mass ratio] 1.4 {ratio} Normal 1.4-2.6 [facility] Comment on above: Performed By: #### 1 4634188, 9268192363, 3336000, 2457369301, 3068073, 1818220, 3176610, 4328319 #### [facility] (DEFAULT) [address] [place] [address] 14186 Alk Phos 56 IU/L Normal 32-91 [facility] Comment on above: Performed By: #### 1 8902507, 0355834900, 5374523, 3197970278, 9725640, 4145300, 1521505, 2504025 #### [facility] (DEFAULT) [address] [place] [address] 17372 ALT [Catalytic activity/Vol] 22.0 U/L Normal 14.0-54.0 [facility] Comment on above: Performed By: #### 1 5071900, 3141869441, 3650872, 7429810211, 0199415, 1665240, 6514279, 3387232 #### [facility] (DEFAULT) [address] [place] [address] 25670 Anion gap [Moles/Vol] 10.5 mmol/L Normal 5.0-19.[address] [facility] Comment on above: Performed By: #### 1 0939320, 8265395050, 4039976, 0543790451, 4025553, 5438488, 0881111, 5090346 #### [facility] (DEFAULT) [address] [place] [address] 69398 AST [Catalytic activity/Vol] 26 U/L Normal 15-41 [facility] Comment on above: Performed By: #### 1 1923527, 6246133220, 7810879, 7145591773, 2170275, 0907387, 4851405, 7823954 #### [facility] (DEFAULT) [address] [place] [address] 94601 Bili Total 0.8 mg/dL Normal 0.3-1.2 [facility] Comment on above: Performed By: #### 1 9607457, 4676577422, 3449332, 1276052761, 8623199, 3685075, 7514956, 8751932 #### [facility] (DEFAULT) [address] [place] [address] 49674 Calcium [Mass/Vol] 9.0 mg/dL Normal 8.9-10.3 [facility] Comment on above: Performed By: #### 1 4392990, 0547801410, 3740211, 8205882834, 2221090, 4721458, 2718819, 8618320 #### [facility] (DEFAULT) [address] [place] [address] 93280 Chloride [Moles/Vol] 105 mmol/L Normal 101-111 [facility] Comment on above: Performed By: #### 1 1140504, 5312383172, 3997164, 3758332747, 5158632, 5022661, 6759844, 5256285 #### [facility] (DEFAULT) [address] [place] [address] 89214 CO2 [Moles/Vol] 24 mmol/L Normal 21-32 [facility] Comment on above: Performed By: #### 1 5716044, 7262469884, 8677020, 5445135789, 6444905, 8465391, 3799129, 7420750 #### [facility] (DEFAULT) [address] [place] [address] 19409 Creatinine [Mass/Vol] 0.68 mg/dL Normal 0.60-1.30 [facility] Comment on above: Performed By: #### 1 4139656, 8380741116, 4070331, 9941847561, 7273273, 0837154, 0296413, 3580057 #### [facility] (DEFAULT) [address] [place] [address] 70362 Globulin (S) [Mass/Vol] 3.0 g/dL Normal 1.5-4.3 [facility] [facility] Comment on above: Performed By: #### 1 [id number], [id number], 0930449, [id number], 5063273, 9416061, 2893117, 4060338 #### [facility] (DEFAULT) [address] [place] [address]008 Glucose [Mass/Vol] 93.0 mg/dL Normal 74.0-118.0 [facility] Comment on above: Performed By: #### 1 [id number], [id number], 1510614, [id number], 9878871, 2704465, 3786749, 5692573 #### [facility] (DEFAULT) [address] [place] [address] 32859 Osmolality 270 mOsm/L Invalid Interpretation Code [facility] Comment on above: Performed By: #### 1 [id number], [id number], 9446846, [id number], 8262473, 7013865, 5882027, 4853576 #### [facility] (DEFAULT) [address] [place] [address] 26835 Potassium [Moles/Vol] 3.5 mmol/L Low 3.6-5.1 [facility] Comment on above: Performed By: #### 1 [id number], [id number], 3544691, 1660265042, 0117813, 2408868, 0911236, 6740853 #### [facility] (DEFAULT) [address] [place] [address] 40967 Protein [Mass/Vol] 7.2 g/dL Normal 6.5-8.1 [facility] Comment on above: Performed By: #### 1 5727008, [id number], 4637394, 6840995721, 3925058, 5007474, 4063660, 0234401 #### [facility] (DEFAULT) [address] [place] [address] 84748 Sodium [Moles/Vol] 136.0 mmol/L Normal 136.0-144 . 0 [facility] Comment on above: Performed By: #### 1 [id number], [id number], 6304216, 3344138276, 5700592, 7761974, 4630673, 4508680 #### [facility] (DEFAULT) [address] [place] [address] 67630 Urea nitrogen [Mass/Vol] 9 mg/dL Normal 8-26 [facility] Comment on above: Performed By: #### 1 8358499, [id number], 0600826, 3676297258, 8286706, 7535749, 1006713, 5835576 #### [facility] (DEFAULT) [address] [place] [address] Urea nitrogen/Creatinine [Mass ratio] 13.2 mg/mg Normal 4.6-16.2 [facility] Comment on above: Performed By: #### 1 0625387, [id number], 4892433, 5413363811, 9339604, 2947131, 2237280, 0406619 #### [facility] (DEFAULT) [address] [place] [address] CT PE Chest/Abdomen/Pelvis w / Contraston 02-27-2024 [...] MD 02/27/24 2:37 am Technologist: CB Thomas [facility] ED Clinical Summaryon 2023 ED Clinical Summary [facility] - Emergency Department [address] [place] [address] ED Clinical Summary PERSON INFORMATION Name: LUCILA JACQUES Age: 33 Years Sex: FEMALE : 1990 MRN: Acct#: Visit Reason: Abdominal pain; ACUTE CHOLECYSTITIS Arrival: 02/26/2024 22:40:28 Discharge: LOS: 000 09:38 Check In: 02/26/2024 22:40:28 Checkout:02/27/2024 08:18:49 Address: [address] [place] [address] PCP: Provider, None PROVIDER INFORMATION Provider Role Assigned Unassigned Tamika Alvarenga RN ED Nurse 02/26/2024 23:12:50 Param Michelle DO ED Provider 02/26/2024 23:38:41 Abdulkadir Maradiaga RN ED Nurse 02/27/2024 07:25:13 VITALS INFORMATION Vital Sign [...] recorded.. Surgical history: CT guided nerve block ([id number]) on 01/12/2024 at 33 Years. Comments: 01/12/2024 11:39 EDT - Cuong Cohwdary MA LEFT GENICULAR microphlebectomy in the month of 07/2017 at 27 Years. Comments: 03/19/2019 10:05 EDT - Margaret Perera DIRECTOR OF FINANCIAL AID left leg Gastric sleeve ([id number]) in the month of 07/2016 at 26 Years. section ([id number]) on 11/10/2014 at 24 Years. section (17000462) on 06/29/2012 at 21 Years. Gastric band ([id number]).. Family history: Clotting disorder Mother Diabetes mellitus type 2 (more content not included)... [facility] ED Note - Physicianon 2023 ED Note - Physician Patient: LIOR JACQUES IN MAXINE Age: 33 [...] recorded.. Surgical history: CT guided nerve block ([id number]) on 01/12/2024 at 33 Years. Comments: 01/12/2024 11:39 EDT - Cuong Chowdary MA LEFT GENICULAR microphlebectomy in the month of 07/2017 at 27 Years. Comments: 03/19/2019 10:05 EDT - Margaret Perera DIRECTOR OF FINANCIAL AID left leg Gastric sleeve ([id number]) in the month of 07/2016 at 26 Years. section (94015772) on 11/10/2014 at 24 Years. section (74454818) on 06/29/2012 at 21 Years. Gastric band (1563419487).. Family history: Clotting disorder Mother Diabetes mellitus [...] Respiratory: Lungs ar (more content not included)... [facility] ED Note-Nursingon 02-27-2024 ED Note-Nursing Pt arrives to ED alvaro m 7 complaining of abdominal pain. Pt states it has been going on for a few days, Pt has history of gastric bypass done at a [facility] facility. Pt denies any other complaints. [facility] ED Patient Education Noteon 02-27-2024 ED Patient Education Note Education Materials [facility] ED Patient Summaryon 024 ED Patient Summary [facility] - Emergency Department [address] [place] [address] PATIENT DISCHARGE INSTRUCTIONS Patient Information Name: LUCILA JACQUES Age: 33 Years Date of : 1990 Reason For Visit: Abdominal pain; ACUTE CHOLECYSTITIS Arrival Time: 02/26/2024 22:40:28 Primary Care Physician: Provider, None Attending Physician: Maurizio Mast MD Comment: Visit Diagnosis: Diagnoses This Visit Abdominal pain ([id number]) Acute cholecystitis (K81.0) Biliary colic (K80.50) The Pharmacy at [facility] is open Monday through Monday [...] alcohol and/or drug addiction problems; contact the [facility] 17/04 Crisis Hotline -Text 4HTQE to 180337. If you received any narcotics, sedation, or [...] and treatment you received today in the [facility] Emergency Department were for an urgent problem and are not intended as complete care. It is important for you to follow up with a doctor, nurse practitioner, or physician?s assistant prosecuting attorney for ongoing care. If your symptoms become [...] so we can reach you if necessary. [facility] Emergency Department has provided you with a complete list of medications post discharge. Please inform your entry level web developer/provider of your visit and for further instruction [...] for D (more content not included)... Normal [facility] Inpatient Patient Summaryon 02-27-2024 Inpatient Patient Summary [address] [address] Patient Discharge Instructions Name: LUCILA JACQUES : 1990 Patient Address: [address] [place] [address] Primary Care Provider: Name: Provider, None Phone: After you are discharged if you find you have any questions, please, call [phone] ext [phone] to speak to a nurse. The Pharmacy at [facility] is open Monday through Monday [...] alcohol and/or drug addiction problems; contact the [facility] 17/04 Crisis Hotline -Text 4HELP to 512600. If you received any narcotics, sedation, or [...] business decisions or sign any legal documents [facility] would like to thank you for allowing us to assist you with your healthcare needs. The following includes patient education materials and information regarding your injury/illness. LUCILA JACQUES has been given the following list of follow-up instructions, prescriptions, and patient education materials: Follow-up Instructions With: Address: When: Peter Booth [address] [place] [address], [place] [address] Business (1) In 2 weeks 03/12/2024 Comments: Call for follow up appointment With: Address: When: Loni Provider [address] [place] [address] Medications During the course of your visit, your medication list was updated with the most current information. The details of those changes are reflected below: New Medications [id number], [address], [place] [id number], [phone] acetaminophen-hydrocodone (acetaminophen-hydrocodone 325 mg-5 mg oral tablet) [...] problems or questions, (more content not included)... [facility] 02-27-2024 L Specimen: [id number] Received: 02/28/24 Status: [place] Num: [id number] Spec Type: Surgical Subm Dr: Peter Booth MD Tissues: A Gallbladder (GALLBLADDER) Procedures: HE/2, Gross/Micro L3 Age/ Patient Sex Location Account Attending Physician Lucila Jacques 33/F [facility] [id number] aMurizio Mast MD SPEC NUM: [id number] RECD: 02/28/24 STATUS: [place] NUM: [id number] NIELS: 02/27/[address]: Peter Booth MD ENTERED: 02/28/[address]: [facility] DEPT: [facility] ORDERED: HE/2, Gross/Micro L3 ORDERED: HE/2, Gross/Micro [...] gallbladder wall measures 0.1 cm in thickness. Community Assistant sections are submitted in A1 (gallbladder) and A2 (lymph node). CPT Codes 93233 Specimen: [id number] Received: 02/28/24 Status: [place] Num: [id number] Spec Type: Surgical Subm Dr: Peter Booth MD Tissues: A Gallbladder (GALLBLADDER) Procedures: HE/Josie, Gross/Micro L3 Patient: Lucila Jacques [id number] (Continued) Signed (signature on file) Domenic Hopper MD 02/29/24 1316 Normal [facility] Lactic Acidon 02-27-2024 Lactic Acid 15.3 mg/dL Normal 4.5-19.8 [facility] Comment on above: Performed By: #### 2 [id number] ####[facility] (DEFAULT)[address] [place] [address] Lipaseon 02-27-2024 Lipase Level 30.0 IU/L Normal 22.0-51.0 [facility] Comment on above: Performed By: #### 1 [id number], [id number], 6824807, 8668111842, 2590252, 1895954, 0263428, 0807959 ####[facility] (DEFAULT)[address] [place] [address] MAGR Intraoperative Recordon 02-27-2024 MAGR Intraoperative Record MAGR Intra-Op Record Summary Primary Physician: Peter Booth MD Finalized Date/Time: 02/27/24 12:38:12 Pt. Name: LUCILA JACQUES /Sex: 1990 FEMALE Med Rec #: [id number] Physician: Param Michelle DO Financial #: [id number] Pt. Type: O [facility] Admit/Disch: 02/26/24 22:40:28 - Institution: Case Times [...] Role Performed Surgeon - Primary Anesthesiologist of Water Resources Technical Officer Record Time In 02/27/24 11:31:00 02/27/24 11:01:00 02/27/24 11:01:00 Time Out 02/27/24 12:19:00 02/27/24 12:36:00 02/27/24 12:36:00 Procedure Cholecystectomy Cholecystectomy Cholecystectomy Laparoscopic Laparoscopic Laparoscopic Last Modified By: Bre Spaulding RN, Debra RN Myers, Debra RN 02/27/24 12:35:49 02/27/24 12:35:49 02/27/24 12:35:49 Entry 4 Entry 5 Entry 6 Case Attendee Dina Malcolm CHANNEL SPECIALIST, Marie CHANNEL SPECIALIST Will Miller CST, CST Role Performed Yarn Dumper Yarn Dumper Scrub Personnel Time In 02/27/24 11:01:00 02/27/24 [...] Peterson DO, Bre Spaulding RN, Dina Malcolm CHANNEL SPECIALIST, Tru CHANNEL SPECIALIST, Marie CHANNEL SPECIALIST CSFA, Will Miller CHANNEL SPECIALIST Last Modified By: Bre Spaulding RN 02/27/24 [...] Pillow, Safety Strap Last Modified By: Bre Sapulding RN 02/27/24 11:12:46 Post-Care Text: E.290 Eval (more content not included)... [facility] PACU Record [facility] PACU Record [facility] Primary Physician: Peter Booth MD Finalized Date/Time: 02/27/24 14:07:36 Pt. Name: LUCILA JACQUES/Sex: 1990 FEMALE Med Rec #: [id number] Physician: Param Michelle DO Financial #: [id number] Pt. Type: O Room/Bed: 226/1 Admit/Disch: 02/26/24 22:40:28 - Institution: PACU Case Times MAGR Entry 1 In PACU I 02/27/24 12:38:00 Discharge from PACU 02/27/24 13:40:00 I Last Modified By: Yarelis Schmitt RN 02/27/24 14:07:32 Finalized By: Yarelis Schmitt RN Document Signatures Signed By: Yarelis Schmitt RN 02/27/24 14:07 [facility] Magnesiumon 02-27-2024 Magnesium [Mass/Vol] 1.86 mg/dL Normal 1.80-2.50 [facility] Comment on above: Performed By: #### 1 [id number], [id number], 0307156, 7887547603, 9807066, 3077807, 9385891, 5778752 ####[facility] (DEFAULT)[address] [place] [address] Nutrition Noteon 02-27-2024 Nutrition Note Chart reviewed; 33 y o female diagnosed with s/p lap choly; diet order full liquids; patient with history of gastric bypass surgery ; no difficulties with chew/swallow identified on admit; encourage increase po as rachael; rec advance as rachael to regular soft diet; will monitor po with diet advance, wt/labs for changes; follow, assist prn. ts [facility] PTon 02-27-2024 INR Coag (PPP) [Relative time] 0.98 {INR} Normal 0.91-1.11 [facility] Comment on above: Performed By: #### 1 [id number], [id number], 8395967, 1214217477, 5784969, 9415845, 0462122, 0789556 ####[facility] (DEFAULT)[address] [place] [address] PT 10.2 second(s) Normal 9.7-11.8 [facility] Comment on above: Performed By: #### 1 4733471, [id number], 7088349, 7705309218, 4591702, 9496169, 7259890, 9882092 ####[facility] (DEFAULT)[address] [place] [address]294 Test Serum 1 Preg Serum Internal Control OK [facility] Comment on above: Performed By: #### 3 [id number] ####[facility] (DEFAULT)[address] [place] [address]7511 Test Serum Qual Negative [facility] Comment on above: Performed By: #### 3 [id number] ####[facility] (DEFAULT)[address] [place] [address] TnI HSon 02-27-2024 Troponin I High Sensitivity 3.0 pg/mL Normal <=15.0 [facility] Comment on above: Performed By: #### 1 [id number], [id number], 4617419, 0169667211, 3096458, 2634022, 1878418, 0941090 ####[facility] (DEFAULT)[address] [place] [address] UA w Culture if Ind Standard on 02-27-2024 Breakpoint UA [facility] Comment on above: Performed By: #### 1 [id number] ####[facility] (DEFAULT)[address] [place] [address] Color (U) Yellow [facility] Comment on above: Performed By: #### 1 [id number] ####[facility] (DEFAULT)[address] [place] [address] Culture? Not Indicated Invalid Interpretation Code [facility] Comment on above: Result Comment: Resu lt created by rule GL_MAGR_ADD_UA_CULT1 Performed By: #### 1 [id number] ####[facility] (DEFAULT)[address] [place] [address] Glucose (U) [Mass/Vol] Negative [facility] Comment on above: Performed By: #### 1 [id number] ####[facility] (DEFAULT)[address] [place] [address] Ketones Ql (U) 40 [facility] Comment on above: Performed By: #### 1 [id number] ####[facility] (DEFAULT)[address] [place] [address] Micro? Not Indicated Invalid Interpretation Code [facility] Comment on above: Result Comment: Resu lt created by rule GL_MAGR_ADD_UA_MICRO Performed By: #### 1 [id number] ####[facility] (DEFAULT)[address] [place] [address] UA Bilirubin Negative [facility] Comment on above: Performed By: #### 1 [id number] ####[facility] (DEFAULT)[address] [place] [address] UA Blood Negative Normal NEGATIVE [facility] Comment on above: Performed By: #### 1 [id number] ####[facility] (DEFAULT)[address] [place] [address] UA Clarity CLEAR Normal CLEAR [facility] Comment on above: Performed By: #### 1 [id number] ####[facility] (DEFAULT)[address] [place] [address] UA Leuk Est Negative Normal NEGATIVE [facility] Comment on above: Performed By: #### 1 [id number] ####[facility] (DEFAULT)[address] [place] [address] UA Nitrite Negative Normal NEGATIVE [facility] Comment on above: Performed By: #### 1 [id number] ####[facility] (DEFAULT)[address] [place] [address] UA pH 7.5 Normal 5-8 [facility] Comment on above: Performed By: #### 1 [id number] ####[facility] (DEFAULT)[address] [place] [address] UA Protein Negative Normal NEGATIVE [facility] Comment on above: Performed By: #### 1 [id number] ####[facility] (DEFAULT)[address] [place] [address] UA Spec Grav 1.015 Normal 1.001-1.[address] [place] [address] Comment on above: Performed By: #### 1 [id number] ####[facility] (DEFAULT)[address] [place] [address] UA Urobilinogen 0.2 mg/dL Normal 0.2-1.0 [facility] Comment on above: Performed By: #### 1 [id number] ####[facility] (DEFAULT)[address] [place] [address] Urine Source Clean Catch Normal [facility] Comment on above: Performed By: #### 1 [id number] ####[facility] (DEFAULT)[address] [place] [address] US Gallbladderon 02-27-2024 US Gallbladder EXAM: US [...] Geovani Miranda MD 02/27/24 5:19 am Technologist: [facility] XR knee LT 4V*on 02-15-2024 XR knee LT 4V* [facility] [address] [place] [address] XRay Report Signed Patient: Lucila Jacques MR#: [id number] 31 : 1990 Acct:[id number] Age/Sex: 33 / F ADM Date: 02/15/24 Loc: [facility] Room: Type: [facility] Attending Dr: Santa Estrada II, MD Copies to: Santa Estrada MD Ordering Provider: Santa Estrada MD Date of Service: 02/15/24 XR/XR knee LT 4V*: M25.562 - Pain in left knee ([id number]) XR/XR pelvis 1-2V: M25.562 - Pain in [...] PROCESS. Impression dictated by: Haile Palacio Jr., D.OWalker02/15/2024 3:38 PM Dictation Location: [place] [address] Transcribed By: [facility] 02/15/24 1538 Dictated By: Haile Palacio Jr, DO 02/15/24 153 Signed By: 02/15/24 1538 Normal [facility] Coding Summaryon 01-31-2024 Coding Summary HTMLBase 64 UhvyckybBOw7iQu+PGhlYWQ+PE1 LRCRpQ45baSMfiP9rG4HEQDcMAy kiHLZVDMdQUfEsfrUjQZ4qiKHjP XJu IC8+NR3lLIUxEaefvJRkg7S9rEA 9J72svw5uIMclgTO8ZZWeDyIpek iwj8suuYw2CRdbXtcpYvHl LPHtdM19YRC1kW64Tj25fJWswPH fj5wmkAp0UdWnGPHkDYP6oNhaDO ejr9NtQCPuK79fnHJdn4O0 MKGatZoopYGzKrZosAO7rJ7qYLx glpakb0vcjgzvDsh6cp16pGGzi4 E6cZS7D4NgbaD2ERVumDUu KzaabSBHrQ4tzaxtu3psqxmtErM jYVLcANy2BRe2BLHwiToxMoBeXS 70ZOE9TJWprcAjP9OhIWLu bZixUoO3a6K8Ej0GW0HVOdirF5Z NTUFSWTwvdGQ+GU77iy14T7KuTe yiTtr4OJHaZBA2kPU7hI0m TRNaTBnwx8S8qRU1Y0ZytjHjqg6 wg6gmOOCdABfwU91puFKwk5Z1NQ UidTN6KFDroLxoCcUaoM82 Oyc+BHGvuMzzq9HmPgrdi2bja7v boWz0YxsbNFIozpTgrMlbMYO8n9 ZaHn8tKHTsjQP4jDH2cT7o VpKxKwH8NCtoH117XjNlgSVwXth tW24cD0YvnKO+DGCeIeu9YJVxiK mtVY2kZ4RaPZWkxnqupHWs tNsqPX3aCWYkxhjjHKYlsZ7pESS bJ9i4LyKqTqC2NXmkF7ZkPPEixh vlHw42uV6iAjUqGaZ6XVzl U3HuavE0DVRppNGjMPpoRWW5F57 na4S7YDSkXPNaZBG0eIS9dI6bdC lnbjogbGVmdDsgdmVydGlj VBvsJOrlA820SSAnjExwQuEcAMw uZyBEYXRlOiAgMDUvMDgvMjAyND wvdGQ+DXDvMNL5uKvbLRVk lFOqEIeaSj2mhLjdyOqiGK6uQES avbngJTBkjM1lEKSemFBsqCmgBG 6gKMLbfxtxw594KcRyYPE5 VXJgzDSwU9HwuT3gLzIcYNYfWHF bB5HgjPVkNCqjG324YBlgPrB7UP KgcpScY9KpDHTyxFttHwD8 x9J3Hc3Bl6BwhywzS6CboNXgNmT lZdwoVTv1T2MaNuddgSK+PC90YW GkBN11JUc3KGH6fTriTFwr WMKjB6FdyW3cPfXlPJWlTUMmWph +PHRhYmxlIHdpZHRoPScxMDAlJy JotLqoSG9cYo6kPXMtXXSf rRinlDPlRyNgj8ihPPBrARdiBT5 naStkK2ArvOB4WPNbk3j7Wi84I8 6uK0WwvGP+VEZgnTX5hNY7 rD8rVjNfQnN8WNcnA162MaPenGE sGodrg2ehv5qaiZm1KfS2OUPkje JjqQmaAOM3c5XaGc87P12w IHdpZHRoPSIxNSUiIHZhbGlnbj0 uwV6aWx0+GWJjxOU2vQZ9eF9pIg KpGnP0VFkpP349DvBnxHCa Wqjwz2oub4ncqVc1JjAaLNKdnpD uuZwtCFK3h5PiKw59V5YqwFpus7 TfFdz4ya13yCUix8Z6rLK9 B5BpMGGstlhybDHwyVywMO7kVUO yevqmOLUqyX3tSTBlK1x2HmSaOi T6RKzcG8NzmfM0ACWbaBKm QNTsoNKKxT6uazaot1xdblvmGjQ yMCKzUEm6KEo1TWJlbArqIkOsGN D2XeL4MZG3mQDasP5qcOva bjoxxZ6jHmn+PFZ2uQEuuYGZAS9 lOjwvdGQ+YTPjWJX6kPcsMXhvED QmnM5jFOCjR6v7AzYkXqG3 GAhhA7YjpkP7RPUimGPoHFRojJC HuE7sjcbba2nechwhMfYbYAFdBW e9YPx3CKXcbFtpNnQfRLT6 RkA0WVY5aLZwyU4ebOwnsgkapW1 wOyc+XefhqBadVBI6IIx4L8QaJt r6LNWguPhsFK5msBUwWUmr Dz3woVrrsYljLU4dSBGspwobv77 5JnIqa9atZKDrnJHvXYmkRHO4D0 6du9P2ICJoBJRiXLW3rDF4 pL5qqQspyyowzNNemXflavAyxGt pRTezRKcxR155EPGttUbxTvKbHP z1Y5EmHzn8ZODixVplSJ3c dSMaGQswBr6mdYlmhBtgUN3kBRE jslyel241BpDqo6hdYAQneBKdOO ehTZP5M40xl5X7HGNpHSYk EJS2tYS8tS0fnBjevcdujZVrsWf sddVplOudQBldGExqD022RQBdrC ciFbAmjSb1T0YwBak8PLEg cLleVP4tuMKsPKyiCk1jvIvxdOl aVC6tTIOrqcdec776YbLjz2qnBB DmhWBfPIomTAE1B20xe0S1 ULRpSESkVDT4bPJ8vU6vgAropdx gbGVmdDsgdmVydGljYWwtYWxpZ2 46IHRvcDsnPlBhdGllbnQg YQgcBXu1I5BnNrqkpZH+ZZ80UAY dBP34rTFwxFXbv3nimFv3GrYbOB AwMJD2wWmpPSgev1HbJZRw O79rjONbh1G1YJSwxFfcuQPrNhU zwZQ1cR3vUWgwvcfav8rlmqykKd fbe4eist86mC25K93uDXzl USCsIZHaLNAuLWFptHsghh8tzC5 wIi8+OZQzvWU2sXE2sB5aLTLgYr W2ZUcmN084LaYzoAUqLokj m6dtk5onoYr0YbH8EIMkxnCdgBr fWRC2q6ExVn50J57pLCeqIEJyTI HmFPBhKRXmgPzdfr3hdW7t Ii8+MXWjyEF4jDM2rQ2tAzKhOkC 9NUfxP485JtFpeFNbAhkrY74pC2 JvdXA+LJCwJds1GWOpzYwp XB0daEViRGgwNi9oAQN3AoXdGwX oCUtaX4ZfYKPkmokyveakkPE8PP KyOWFsjI38Rf9qlAabNVFn sRYSmQ7atwden5epgxnlQnFmPEG jFSa2PQi9WAKxbYvzQcUvFUY8Hm F0WST9cQMdeI4xyOcnvkvb zH0uN6DqBJOzqiskBj15oS2uHbG mZlA6MIszOpk+EcIWZjlsV4QXIH xFIyXOIGJ3B7XtJni4QAOw wEuzXY7vePPsJPdiIm9jrCgigFe wYR4lEPRowmdeGSQdlO6gCOUxoT FibWkrWH8xLWSgulwpi711 HkVmMCE5GOBljMOvP1SaaP9gWoB tHJHkGVPzO3XphSSxZOwnN564RT wnXsA2FBEravMhI8LvMZKv kTwoCjG1s6G2Yb4wDT9zEj2yPEv 8VE52ID74bZOkg8Z9fOX2H5BgUF LpgmnicnqrxHZ9TDCoPXFs nC00jULiCQcwJx0at1D1r726FSM yMFVkjR01Ws3eaZnzBEVdjWNGnP 7xfjlbj1kxtemeJpOmZQWg WFm4LHf8RAWsvMpdFzOmOTX0SwA 7HHJ4oFYhrO6yiVcerkhgsT2nQv c+ThJhEBBmoyK0E2CiKzi2 DSGqrYgfNA0gpLUyTQacMg2bmWb csGyjFO4oEQDpeiezMAHbbQ6nTO YveJIohBnsUP8wDIQglicd m088UzNiXKH6YBAdtDAzS0WwpG5 cIgVqZYXfONUgY2KyuXBpSZsjR1 04TVbiRtK8RERlsoZsJ9He WMKqfCsqYlO6o3H1Tc5VJO1SHLW 1R7OcQgp0PDStkHzxVG0jvIZpXD uqWi3pyZkepLmiAH4bPYZh bpgfORSymI3wRLEmuLJilMihXW0 sBDJbotayi917SkWgWUM0DLYizW TeS2QczG1vQkCmQBGvVELh V7LefLDiMKlyP511ZZpkVrX5DFA cjhPnZ2PsZAJmbOipXqJ0t6R4Nf 5PUDwvdGQ+NS36bo05C6Uo KvyoLne0NQGuPNW5kMW1yT6tRMM cSWnsx0B7vOB9Q7OxdjTguc3nn3 xuWCFyFGrwA36pmDHmj9Q4 PNXykLU7AYQnlBxnNjJyoK74Paz +LBBcsHduj4EdFcmgq2mzd1pdqV m0FcRtVECxfmRbgCztTCH7 c0ChWh95N41lZDrwGOUaHRIwEDK jMAUnoIwlwf8xsF0kUl4+PGNvbC R7bPY7nF8qLaYzPzX0SQcv V406KyUneYImTvtpx9yhu5cleLy 8HtNjGBDqwhYyaMawXOI5c9QzQc 57L7NcpCzov7OaLyd5sn41 jGEvz7A6pPB5B0NyNRGvozqunQN vkBjbPA0iRHFtpwajJSAacT3pCD WiY2b0OrPiMtW3HFrvU2Ml skJ1ESChkFQwRYEkdFRVsJ2rntl xm9mcsfmzMnPdJUUrZHd9XGz9OM EkiHtaXtIsFYG0LjB2DII6 iZMwiP0qvTmcrrkkoY9xQsi+UGh 5q5xwdEFvVH9ivKY2VR75SV32qV Vsi3Y2uJN0L2WdVETyfcww ezqvqJL9FGOhOEIaiN93Yv4mmPj bUd7fPAOnJVN4JYYboKByC2AvyU 8zQxPaDQNkYIBoG6LnoJAu MGtvX248KDfvJuZ4MXDpqaTbT3B qBXZsuSmhIpP5n9B8Ah9VEK03UT 38IT72nHJjc3F9eNC4O3Ev PBVddoccuwonoHZ8RILgGUZsbF5 5Xs2efQguGa4nFBWgCRC3SEHlwH EhZ7NcsR0kMcKgESBsZGSk D7PzfAAbNYtxV856ACxxFdH3HAR hllMxP0IsDPAdzKolNbC5c0L4Ao 0KBo60LN81KV63sNCgk4N0 mSX1L8FePDYtlinpjwxoiAR2NUB qKHRsnI13Jy0cnEwiLh3nTEMiKJ C9AORejXOrX8UokN3qSeEt BCWzAZOpB9HgoAIxLYzbD430SIc wGxC0RAForuZzP7QeKBXkzVyeLo W7x0U9Vv8UCJettkk7H7Fp PjwvdHI+BT10GNLaEX76tZIrsFZ fy6xznDx7YfIqGAQcXRA7kGqxTN cwp2MeEHScA26ygGVss7L1 IGN (more content not included)... [facility] Progress Note - Provideron 0 01-29-2024 Progress Note - Provider [id number] [facility] Coding Summaryon 01-22-2024 Coding Summary HTMLBase 64 HtrjbusdNQj3pDm+PGhlYWQ+PE1 HHSDnG25wtNBaxR1yE6RMUOyBDt xrMIFRMZtFInNaasCzRR5bgSVoQ XJu IC8+DR6rNCLaWibcsVMjh4Z4pEE 8H99grw1oZVnsxDL1MLKnVsHtfp yws4jcqOu6TMcsOyeqXmZi EGBirL39JOT1tQ69Ln43wTFajII rx4cdnHu5ScEkRPJyBYZ0wKtmIX gsw7McGKMhQ94vwADsb8X0 PAIotDjpwCPcYeYnnUH6bJ0bRPt iakvfs0vsyyubBgw6hp60wMSdm3 L5qJI5G4XdtaK2EJHzmZKg GodyqJEUqP6bvbhyi3udrzmbYlM jKNHlAYj3ISx9TATwuHkfOlFoFU 51HRH2FGZimfSzE8TtQMQw kZtnChS2t5T3Bf1HO5JMHzghS5W NTUFSWTwvdGQ+AU68is85M1KxDr dkTsp8GXHqTGI2iTD1fU2o XEYiIYylx4H3nRQ8A2UgfsDuxb7 jj7cmNIOyOLkoM20faEMcc4O8MA DlvDK9NZNaoFbhGfRwcO63 Oyc+CSEooKyaj3XqPstih6uoe3r wsGf4WzjpOZEcqiZlrPaxKAX2v4 NvGp7yYPSrgJE3lCZ7kL4m IfIkPoY8THioS363VbXbzYWiQeq pA93pB3VedDY+BZWmAly4OEIevP kiNY8kD2HtORAgumgwnUGe qSiwXK0kIEWhnohkSSIapK7gZQF gU4j9HnOmBmX8OJybV7HgWEPpnv mfJw38bX5rNgKuHzE0FIdn I6KtnoA1SDOihMOgOUxfISB9D83 of5P8DBKjKTOyTGS8lEW9cH4mfD lnbjogbGVmdDsgdmVydGlj CUhbERmgE917LVDtpGcsOjLfUCk uZyBEYXRlOiAgMDQvMjkvMjAyND wvdGQ+KCXdFBC3jBqyKFUv zOVhEIvsNv3zdLrvoWtfCT2nEEH cpchkORZgnT1oAUHilMWozBgiEJ 0vSACyszulf830GzSrBIZ6 BFCxiYJiO8XjkA8lVlWxEGDfJDH vF9GevUWoENvjF570IXctXcK7KE FqjsHaN6XxRAMasFmiYhM5 q9H3Of2Oy3ZanspyS6DvhKRjGrR tLuwdRVf6W1IzGphofHL+PC90YW KrAZ02CDq0HOM7eYbkNZxb TDHiE7MmwI6eNhSxGDQwRTTkKtp +PHRhYmxlIHdpZHRoPScxMDAlJy KqsLdyWF4dTq1qKHWkCSOs qZvviWCxXoJxn1npWBJeBDlmFP9 opAphY4GnpKI7XJEwp4l3Kn62L0 0lG7TkdCS+WNSmjHZ1vWW7 mG0aFyTmOaE8JIxiF285CfJtfOY oPxzsz4lnp3vlrVj5OhP1MGUjum BmhLmhNWV1p2JkJm01V02z IHdpZHRoPSIxNSUiIHZhbGlnbj0 mqQ2cJe4+BZHjaLP7rNV6kC3wTs YiFtF6CRdjA284RxIpnEJk Jkftj2pxe0vnyIk1PwPfNHLnhnG eaDqdMHV5d7ExAs76U5XwmOukr7 XvRxm2ms68dUGmj3Z9yVC4 N8WkLVRnialsoVWvqGoaVS0pBOM elitjLHKcyN9tSMSvX5l0JaElCh R1HAgaD1UjfnA6AAFuhDJu HYEovLDDjI3eufsbt2jhodsvBwR wLHJyOWq8YYn5JULyyUbyYsBmDI C3TbL9GQQ8rUTbkO0mnFxs bevvjS8tBqy+EHZ9oCRvzWBSBG1 lOjwvdGQ+HCYmRBE5oJpiUVlpZA EfmG2lKGKhZ8c3BqNkWqC4 UYnoY2YbnaA8CMWswFBgIYZrhFJ GrD7kvmdyd2zwylhkVfNxSARcAF b2KGx8MVNqqLcqTdFpRGB7 FbK1VXI5aDRthH2taSzvpszlyY3 wOyc+LkcqpUhxTVP9JAx8J0NlYx x0TPOmmDrgOX6wnXWnNVyi De3blDorcIomTJ3yKZQkhmnlk77 6YzSgr9kjSILalTRfISfuXWK8A3 8ai0I0SWLbDSAkQSX4aDX0 kN1hyIehtzqsnXAdeUvtmlNsvCc kLZntLIcyY344SSYgcDxtAyGlDB z9C0VnMsu5CVXdeJmrDM4m eTOnQGciIe0chFxlfNrhBX6hHMJ ntpwtb482QeTls5ejYNChsVFpEN meJKG5K93fo3K5HFSpXQVn HJD2qGI8zD4vaMbrigwetBFjkQf czpVcwGseKVmjVSlaY194MGIteV qdKvEcdLe1I0MuVuf9DQCc sFvwBZ4aqMUzYMpzBb4vyXjurXv sYP4zYETuzvmpc727BrRmg4zdGH SdvTZkTFgvHOJ0J06eu4O5 ROUlASItWHT2mAC3xK4joAounyx gbGVmdDsgdmVydGljYWwtYWxpZ2 46IHRvcDsnPlBhdGllbnQg UDcgTSm5Z4VvSxavhOI+WS62MEJ mXN54sXHwgUWau0kujXd8LqXbIY MqXAT5nLsyYJiyj1PvLTNn N81oeYBou4Q2SIMcrAgcdXTbAeT qeFM0kJ2uYQqwwoaya5mnxrctHg sqp5qusv57wD39C36mFAyi TYSzMRUhWYPlFSCqrXobpg2jsS7 wIi8+JSFsbYA9hHF9tL6nTSJhMi Z5EEvmV741VqZfeQXtKplb b3jte9rzeFy9FbG4AGKktoRpoWs cPKA2l4NvGj81P54lXEdvFHXrJK NqNAMePQMciDfeuf2ujK8r Ii8+QZMxyFG8mZE0vV0gFdDrWgH 1KTawS495MpKhvSVzGanzL87eS1 JvdXA+EGYeBbv9WLEfaOcx AU0wuFKhATodNb5nAPL5LnSjEwZ zNNhrC5JbTWXicqqcyjgstPW0HR YdRJYkiR50Ix9atTeaRVGj cTPVhD7wxjiwt0ccunsyQoPgWZA jCDx2RMe5USGqhXeyOcDaCVZ2Kh Q7THP5jPAsmY1uuMhvvhgj nM5sU0KjPOTkozmjHw99hA9nUxQ aWfQ1OJvyTyn+OcZETrnqP3SRZQ pYGwMXKWG4P1JmRam0PMXv cYsqTM2frSKlFNafRb7icYewuNt wFY1lXVRdwuxsVOVpmW8vBDHwgB WifJkmHH9cSNIremcyv925 ZmKyRHV7CODowXZxE8BcbB6gMmF sFCCoPRRxL6WwgRBjTOesH049TN cyGoY3AUQxdwImX8AiIOIu fTnqAjS6j1C8Wb6aFC5uBs1uKQy 7UA21GN66sRBcp2S0zGI9J6LsWX HcgawmulbhbWM0TINbMBTw uK14lGQcXAgzMf0rz1L6u010ACA uFLBcmO57Wj4suRogFJQznEFWlV 7flpoyl9tgszrhWvKbRVIo DYf2JGs4YWCzqNbmWtCwDVT1PwR 2OQI2zWBcnW6lhUrgmdrdgS6tCf c+UwJtLWLstxV9P6VtTjj7 QNEtyPkvPO5kqLGoDCpxYa2vaZg lcQaoER3rGSFbkvqiYNAybJ0jLS SmnZXkoBrvYM5wGYBirjsv i563FlBcSZO7CTAxbUNzC7IeaF4 jUoItVIFgKHSoJ5EccSJgWLxxF6 00VCpyWbV5DDZdayTkE2Uw XCWfeBagXgD9c5U1Vj9KZY4RUGI 4M0NtEdb9QAKmnDztCW0adNHcDF qqCq8paCnnuWxsRK9tUHTj tdtiCEYmcY6bIMErqTCbfUpoSK4 hQEXjshihx096GjCmOQT4ABLlcV MpT8LlyE0vJuInAAUkCAYr F7KjsUOrYBnzT287OOphJeR1BMD onoFwT0ImRVOnzNvfXxZ3w8T2Lr 0CFJgrY3GjY0ChjXffcYX+ QH10da67K7TtWbpgKyr2UMTlBEY 1cKN9eY0jQQKsHGdlc9W0fMP1E7 YfpiAvhz9zp1kdWJPkLEmc O51guLJbw6J9ZXZnhIP7KICahMk wVtCmcY26Mup+DNSknXuvs7KcBf vqg2jdt5mctJt1XyHxTLPr htPioAdjCVW3r3UcXi23V27bQAb cCDVjGUElJNDzGCYlrJcvbg0apE 9wIi8+DZZzvPF5uPQ6kJ7b IcGvHwA4OIhgM553DmGgrNJhHxf yx6ssi1ggaPw4CcPqSNJdrbKpgK sgJUC6i7EmUr66R4UmvPxf h8JdNur6le74oLPko3Q1aCR6W7D zTBJgwwwzsYSjvFpuPY2hPFGeav otJQFsdH6kBLAmM4e8VpWg FbI6EXohT6SwbrA4IUTcvKViTVD ydKPGaB3evcoeb9scruggEaCpPE BxGQd9QPy6QKYoxYsnKrTi UMS2BvS9LTC2bLYwuJ9bfWyhkxg afC1tQbj+WMh1k4lubDAtSQ2mnT N4ZM25WN03wIIjg9T4wGV2 K9HfYCFjekscxesraLZ6NCWrBJQ dfL24Wp4fdJtzHg3fNOHuMEQ3EU GuzGBnN6BldK8hQjNbJZWc NMDhR3XexMKxUArkR652QCzuPxU 5MOSteiWfR9YqTOZhwGjhMrD0y6 Q3Lf1FMM18PN55AF75eOAt g1A8yVI4U0VkHKFdloawispmoOZ 1KSStEFIgqE16Cr8xmTnoUd4lCN XjSHQ8VAZqoTVtW2OlbL4u UaRoJBEkRYCtX3WawJIcGXvgL18 5ZGvlWuH5OXNcoyTrI7KkBNYazS zyToL8n8C4Ns4ISq82LB38 MB18qXYpc3W3uAW1Z1PeTEDaozc ppjeisGO2FRZoDHRgdN52Ev5pnH hfMh8oFXHzETP2WEEwqUCc Z5XayR9aHdCaOHWyVSYoD1FttVN uCNlcX893DHbbOnE7NHEcmhAaF5 EcOYMynTlpWaR5d9Q2Xy2W UYnzjvr5L3EaTibkyEV+EQ02YAI eIZ00nDGqxPRlc1birTj9NgOxRX EuDFJ4pKtoCIzvx9GkWULn Y29 (more content not included)... [facility] Coding Summary HTMLBase 64 BdthdpirWNz5eVh+PGhlYWQ+PE1 XKNYbL99lpMMkuV3oQ1PUBJiSOz tuBMTNLGoKRdWpoaGiTY3lzEPzK XJu IC8+GB7vWMQpAvhzjNThh7S4uXK 5F10coo9eLNuimVB9GRNtMjQzwk bgx7asmGz5CWqiImovNoSd RJXkjQ75EJX9uH82Dr65hPZzwDW sh5cpwVq9NgItKECyUDO8vEfgUU ndi1IoSNExK49mmGOnl6H4 ZCVixEawlTGeLpQzkPE4jE1yZZa rkbulg7ofiltkMra0nq64fTIct1 D2yCF4P0VnwgS5XWWriQNy MstnsYPCbD7qekmsg3zoqokoTsB uOFPsSMm4ADa8TIJtdQreAtTsLI 29WLE1RNHqiyElA6OnVAMb vDgcEgM1b0W3Wq4PJ1MKDpskT7D NTUFSWTwvdGQ+SC86ok32E9FvZc rqQgr3LVQrLSS3yPU9uE1n COHtQQlac2E6jCI5K7JlljNgba5 wx3lpSSCxDQxtD50tzTYfx2E8YK CorMP6JMDgkRxkNbRngV65 Oyc+XJUoyKklz4IkUtpea7gfb7d jmBd2LjadLZVfheJctDmfESC4e0 TqLo1mYVGlePT7eZK2rO2b CuFwDaC3MRjnB759FwNbfIWmLnh lB72mV8FauEN+ZSAmAag4RPFwpB gjNE1rL0TcAABuuonpjEIj wDtuML4fGKIjkkrwYVNvoV1tFZO iU4q9LeKmBgN9FNxxH3WnAZFrzq ffXu84eG1kXyWsMeK3HAar W4NctjQ9RBCywVVvGZujVPH3Z44 zb9E7BRPmLHTaGRE2lVL7vD5bkD lnbjogbGVmdDsgdmVydGlj FLrbORilI666KNRwlDyxMrPhYGh uZyBEYXRlOiAgMDQvMjkvMjAyND wvdGQ+KSHpFLL1oBaeHPTx fZQnYMheDf3ljPuawXfvMB7dGWT otxmmXAXqaV0aFBLnbOFzbQwmAO 7cVSYwofopu958TzRoJRN4 KFIqaCQuY3OnnI6zQcOxJSZfHVL iG0DkfZGiYCehR291AQvfWdF6LG DhdvOdS3BnSJKpyFjcLtV8 k3N0Fx1Qm9ZdlqemZ1GmoMPoPmH jDvneQNa0J5OoCwqvpGI+PC90YW OoLW75ZZg1VRU5dJjqLRsp MZHvF2BavA8dJqVcMOPxQBYhYvu +PHRhYmxlIHdpZHRoPScxMDAlJy UbhEzqEA6bBw8vLQFrAGVl jKrguEKnUzLsi8bkYVAiWKaxQC6 bfJefI7NjeRL3OPYrx3b1Pg51S2 5gF4DhaLX+BHHjcYW3uVU0 iS1tFlKcMzL3YUdrT454FcSyjBR rFktog2uft2jirVr3OiV9IHZsnf ZovYbyFPG5r5DjBv37D56j IHdpZHRoPSIxNSUiIHZhbGlnbj0 ubV2oJu2+IVNnlZE1rSL0dS4fCx QzKsS5HJnuV550HtRodHSi Bjfpv1fps0wiwPn6UmNdUIYrjdM leGajWQQ8g1YnVt27U1WgzQxci5 NpYwa1tt87kEJrf3Q8eZE4 R7CaSWDphyjjsTBzcOzuDE1yLGP zbwxkHYGmeJ1iDHMnO4d3YxJrFq M5AIdhZ9ZpuhE9OSNroDZd YEJloZNGeH8uaklhk0bllibdUoJ lPMPpOLm5GPr6OJUurUazVvPgMY G2NmS4HYJ2dYFncB2piQai elgowE2oUly+ZKC8mGLcwPVJUY5 lOjwvdGQ+DRXlICI6pOznXFdqQW ObiY1aPCFwB5t9YkZlXqS0 BIxqY5WyvjR1UEEigKOmKLZnhUW BnS5oxafoo5tjvrmoCeCuNUXeKN h1ZFp2WKAhgVaxLzXxCJI8 KlO6ZGY6nCZekX6gmJotprchtL2 wOyc+CccngXanJYL9EXf1B6ViBs y1ZJOxgMkpRM3aiCZsDHfj Cn3wvJupzQsdNQ7kBOTbqmvse24 2ItZoh3neBNRssXOjZLneYRN0J1 6kl3H0AOWxJQNoXYY8qEA0 wJ9ysKyclyfxuXCeuDvhgpMnwZt hYTscBIdoF715FOAguKdfXhOjPF o6R6IoGyx1FOOgzBjmSB4d yLDpFLrbNg9abCtvsTdwOK5fJXT yonyeq161MrPpx9wiWXFqzJPqYC opPJQ8B41dk9W0VQPxWBLk XNB3rLK7oL4gvNrqdjkirANcqPs hryXokRarWHizGJugN290XRDeiL krIuGbuRp6W9XqXba7ZXDj uEjwEO2juWAtZCtfCy6vtFaauVn yCC2rCVEiapsyx301BbWdb7yrMT XmuNGuIOxtSRL9H40fh2I5 RZAzVLBjTLO7qIE4kT4jvFzechb gbGVmdDsgdmVydGljYWwtYWxpZ2 46IHRvcDsnPlBhdGllbnQg VEzzNQf3C9RyBrizoUH+PW51RXV vLY91eMGbcPRkq5qunOf7NcMhID VlXCE5kOivIBbgg4TaSUDr A19ziWWpx1X2QWUnrJijrSWeAsF hbEC0lI4uROztmxegd9chjwmnRz xao9odsn87zW94T37xFSlx RZBmTDSlRFRaTEOtjWwjzh1imC3 wIi8+UJKvzJV9jOJ7lW0cTFBxTt H5BStuO582PrFskQDiTeoq m4vap0wknLk4TeP2AYFtenAeuAi xCDK1q9JwTt51T56kELgfSFCrFB UoJTDoCZCkbDrajj0zfE5y Ii8+ANPavAQ6rNB3lC7bElIuBlY 6SUkuU002FnHhvMBdHubyR29lL0 JvdXA+ACJwRfq2FBQbhDnc MS9gdZJpKDffPy5tHGA3WzJrTsV zNJrdN0EtWEFnkrcjtonwdUL5HB PrQIHpkL54Xh1slNsdIVLn vOPNrS3arquow4vortvlBhEtGWM eHRh9HWz8PXBefGjyMoJxQDR3Zx S7AJZ0rEVjhG0xmWrqfymt pV2mP2YpKSLophvgJq80eA2vOeK sPdO2GTmoUkh+WbBVXjxsS1PXTD iLZqAGERT4T8VkAsm7RSZc uJahIX4zdXFqXNlnAt7mvCvtuLv dSJ3eNXJmcknbIVVzpN9rBXBknE KbjPrgVE4cHQOyqxaoh013 AdFqIPT8DNMlgJCiV2YceG4cSaR yHZFoVCLiL7AtvSSfYPrfZ177AO jtTwY7XYDwiqZjB6RvTGHi nAkjOiV5z3E5Mj7gAI8hLn9aDWg 7SB25JK79gTWxw2E2vLJ7F3WqNR QfqyofnpikaSP3JUFtJPSa gE90tIToUBevOn5br0L6z687WCB dYMPiiD98Gs2woSswYTKjbBCJzI 1tivgif7zjyluvOoOoHWTq JHv5JQg7RSAqoXupQcOcPHM2GyF 2YXZ5gKFivG4ysXltfliukF1xHr c+XcXbBKHyqaO1X6UzZfp2 JLYhbVrdRO5ktDCsMEckMl4hcJa wdTtoON0iLMOtbozyOHSjyF9eQJ QbnSXdnTawIT3tUVVzxjgn c143FuAqVEC3ELJafRXiC8HvyP1 hDtUxFKBoGICsV3OfoXIkEFgcM6 76NTgdUyI0YDVljgJnM1Cb LSEyaDfaKuW0s3A5Np2ZJG8SPYO 4G8XbSiu2KFDprAfoGF2tjACjZD cyDr3ooLwppXygKE3lEHHt zqtlJMOubE7vYCVidCFehBswTK8 yRVWexhdou043EhDwVTX5XRHjpB UmO9KwgC5jZqHsUMWrCWNy F0FtgFPhRPymD257FQwzXlL4JJU scmViA6DhLNBmwZgtFpG5l9T8Fl 5PUDwvdGQ+HG75yd49K6Ij ZzeoTdq4MBDoVHS2jXC0fC1bXYI dGUdxs6Q5sVS0C4BrngLwwy9yh7 vkYZErANphF48xfFTfn6M8 XLRtvVP6QCFayUvvOzFyuW84Wcn +XQSjyVhbq6ObPfcrz8tph0jgaW h8IpLsHAAxnzItuFhmGFO6 q5GvFd26W30rUPucFIMfJAMbCFP mINQesJkuqb0vrY3fRp6+PGNvbC E4xMF6uP6kSfVkGzG6YTsz P298YbYnaCNcQrnmb5pfu0aqxFh 9ZoJvVXOfywHdcSyhIKT6i3ZaYq 32S6KizBums4ZpFsc4hl58 nUQri2L6jKF5W4IjKVUamaftoJP qkMbeGT7fHSPgqdwuALFthX3tTR UdI9b8XqBqRxU0KYorA2Dq tzO6RRVznPIsRTMauYMIhY1mmhz pa5uiqbinSuSpHQTcDXa0IPx7RD XceGxgXyQmEWW7WwV7WXT1 qHUtwU9uqWgjwwacwD7kCzy+UGh 1h5pifNQsJL1ipZR1AV84OH95vJ Qtv9K2gDT2U7VmZUTxxydc txqiyTP8GBVuQJLfmG49Cq2xqUn jRl8zCICyRFS8MILxfBByY2QohS 9fWyWvHGYxOPAoM9RdbOXl IWysP091DEsaFsG9ZOTfauHmA9P cNLSwyAtgGzD7f0K3Ud8HVC66QY 35JM66rRJbl4T1rEM9J7Wt RCBmxtpxssexvKH3CWYeRAAibW9 4Ty7qhVneXq3rNXEaFAR9WBHmmT HwL7XnzL0lFpMsWZVnNGGj V7CknCEvAHloK656QAkdQkS4TQQ kcjNmF1DxJGWwjSghPuK9k0B7Gb 3RVq72AS67YP59fYOww2N8 fVY9J2QlJOGyviextdkdgAQ1QDR bYJSjpU78Sh0qmLpeFm3oGITtFI J7DUFcoSHvK4TlgE1rFuGr HMXuRGAcY3YktZBpOXyxI040CNw kVrS7MFTxaiUtC9IaOSBtdShmXr A9u4U3Vv4TPMvzfsy9A1Gq PjwvdHI+IH78VTIxOQ74mIXigLK gq2ezeBp5EzJoZHNiMSE0rNlaCF gkr3FuEERoX94eqBMte2R3 IGN (more content not included)... [facility] Consent Formson 01-15-2024 Consent Forms [id number][address] [place] [address] Consent Formson 01-12-2024 Consent Forms [id number]#[address] Controlled Substances Agreem entson 01-12-2024 Controlled Substances Agreements [id number]#[address] Inpatient Patient Summaryon 01-12-2024 Inpatient Patient Summary [id number] [place] [address] Patient Discharge Instructions Name: LUCILA JACQUES : 1990 Patient Address: [address] [place] [address] Primary Care Provider: Name: Provider, None Phone: After you are discharged if you find you have any questions, please, call [phone] ext [phone] to speak to a nurse. Discharge Diagnosis: Prescription Information: If you have been given a prescription for narcotics, seek immediate medical attention if you have any difficulty breathing or any sudden status changes such as confusion and sleepiness. If you or anyone you know is experiencing suicidal thoughts, mental health, alcohol and/or drug addiction problems; contact the Mental Health [facility] Recovery [facility] 17/04 Crisis Hotline -[place] 4[place] v[place] [phone]. If you received any narcotics, sedation, or [...] business decisions or sign any legal documents [facility] would like to thank you for allowing us to assist you with your healthcare needs. The following includes patient education materials and information regarding your injury/illness. ERIKA LUCILA MAXINE has been given the following list of [...] for Disease Control and Prevention May 2014 Normal [facility] MAGR Intraoperative Recordon 01-12-2024 MAGR Intraoperative Record MAGR Intra-Op Record Summary Primary Physician: ALEC PATEL MD Finalized Date/Time: 01/12/24 11:47:08 Pt. Name: LUCILA JACQUES /Sex: 1990 FEMALE Med Rec #: [id number] Physician: ALEC PATEL MD Financial #: [id number] Pt. Type: D Room/Bed: / Admit/Disch: 01/12/24 [...] Sara L RT (R) ARRT Role Performed Water Resources Technical Officer Water Resources Technical Officer Interpretive Naturalist Time In 01/12/24 11:40:00 01/12/24 11:40:00 01/12/24 11:40:00 Time Out 01/12/24 11:46:00 01/12/24 11:46:00 01/12/24 11:46:00 Procedure Block Nerve(Left) Block Nerve(Left) Block Nerve(Left) Last Modified By: Reba Liang RN, Kelly RN Weisenburger, Kelly RN 01/12/24 11:46:22 01/12/24 11:46:22 01/12/24 11:46:22 Entry 4 Entry 5 Entry 6 Case Attendee Mason Garner RT (R) Dina Malcolm THOMAS F MD ARRT CHANNEL SPECIALIST Role Performed Interpretive Naturalist Scrub Personnel Surgeon - Primary Time In [...] RN, Rekha Colin RT (R) ARRT, Mason Garner RT (R) ARRT, Dina Malcolm CHANNEL SPECIALIST, ALEC PATEL MD Last Modified By: Reba [...] (more content not included)... [facility] 01-12-[facility]24 MAGR Preoperative Record MAGR Pre-Op Record Summary Primary Physician: ALEC PATEL MD Finalized Date/Time: 01/12/24 11:49:22 Pt. Name: LUCILA JACQUES MAXINE /Sex: 1990 FEMALE Med Rec #: [id number] Physician: ALEC PATEL MD Financial #: [id number] Pt. Type: D Room/Bed: / Admit/Disch: 01/12/24 [...] Signed By: Sushila Quintero RN 01/12/24 11:49 [facility] Patient Handouton 01-12-2024 Patient Handout [facility] Test Urine 1on U Preg Negative [facility] Comment on above: Performed By: #### 3 [id number] ####[facility] (DEFAULT)[address] [place] [address] U Preg Internal Control Pass [facility] Comment on above: Performed By: #### 3 [id number] ####[facility] (DEFAULT)[address] [place] [id number] Progress Note - Provideron 0 01-12-2024 Progress Note - Provider [id number]#1.00OTGTIFF [facility] Coding Summaryon 01-10-2024 Coding Summary HTMLBase 64 HigyebjlPZx5aOf+PGhlYWQ+PE1 OBGTjK95ykSApsF7eP3HAGAnKNo bnHATNWQkTFlTbesOeWU5gaNHaM XJu IC8+CJ0aGEEdEumdjDXxa5N7jSS 0Y72epm1iJGvlbZX7IFCzDkEktt aul3ohxKq2VFltQyegWvTd MRGuzR72VPN8cB05Tg93zTJarYH ui1gncSw9CnRsBSRrRNL9wRbyZQ wzg5WzIKSxA99peJClf0U0 IBSjgIpjvSGnRrMqxQB9sE4iLLs yzhsdk5cnzkbsHou9kg30vNCjh9 W1sDT6W0LtnkT7NLWdmFJx OvyojMPGmZ4tqvvju8jdvdarEkL wMQZpITx1BBm0CXXwpGftAzGpMP 21SJD3DZDckmQyR5SeVNQp cCfvLnU6u7A0Pg5MF4FDLwgmI3C NTUFSWTwvdGQ+BB76zh06D3KnIr tqWxe7KFYnFOY2dUN0cG4z FWQiFTeid2S2cXM4U6NbusZkcb5 nv9qiVGKpQOlsA28jsSVns9B9XM OqvKA1WQExeInqLpYozR31 Oyc+FBQdxGomq7HhPjxjz5bbv7v zvPz0SlxnRZHxgaLgnZdzXGF8z7 BmOm0hWSNgcRD3wEZ9nZ3f MzPeJzN6QCsdA964GqHsbHZgBbm uQ22aW4LmrFA+ZYFjVdm0RVTmmJ joWX6kL3DlNZQphnilcUFj cWryHE2oDATynihqPJIisD1yBBM bE2y6VmCeTfQ8QJzsQ4BpSLMmet baTx81lR8lKbZqQcS6YUbm P6SlrfE0IUVouTMmSJwuTOD7W67 dc0W8BYFyOXZvJWI4oTR8sA4fpP lnbjogbGVmdDsgdmVydGlj NHhjFFzjH547MPQuaOgzZnTpKTo uZyBEYXRlOiAgMDQvMTcvMjAyND wvdGQ+MWAjTWA5pOvhXWEb oHYiFTyuCd5maNgtdNrgND2pUJL lfeodXSOmzE2cSHVasMLyhRlbAU 6pQEQkunlih543SdVdXZH9 NPBomFDrQ6QquX6yFtYmUSRzUCD lO9VnaOZeKSihO790SDjmPnU3SI IlcaFuF4UqLCIjyAemXvM4 k2P0Bu1Bd2PoguhfB4AonLRyFbS qLqfhADw5W2SzJbbivCA+PC90YW HgIO51SBn8XKY1uXzvKKyt DAXhP8QaoR3vZqUzSOBfFRNwTxz +PHRhYmxlIHdpZHRoPScxMDAlJy JhhSjpRJ3zZt3yWYLsBVYw gWskkBQiVjJge4dfHETnLVdyVQ5 caXisS4WhfCT2IRLvj5b6Vx94P3 8xH1WkcGF+MJPfmTV2oWP7 pB3gHdKbBsW5LVbzB473PrPgaWV pLefet4eoq0mumLm3QsG3DQHyao IrdGvtIDV3z1DtZi70T40m IHdpZHRoPSIxNSUiIHZhbGlnbj0 qhE0wLc5+TUZmaFJ3yJN6fH2nNr PoGmF0ICgfX872ZkXjgNCf Rjuri9gtx2gqkTp1OxCpZIFmxlB edOmvWEQ4g6McGw85W2GoiLmxh8 WvXfv8mo31gQBlh6T7kVS5 F8QcCZNvjelqrTBtcCebDP7vOZN wxrcaNIKthY6jXVKvH5r0FcAoRh K4ASqxB7UsuoD5GFXanIMd WPDlwTBQbN0zxitgh0hmqfstCqC fJYDkKLz3AGk7FERgjMmnBrPdJY H1MiU8VQW4wWLsaF0szCmo yuhsoY0jQeg+EST1bTDskMCLTO4 lOjwvdGQ+CUXdDIW0sZkwLBspTR OovP1xGPAuU7u7YfHiDlG6 KRklN9GcghM6VGYvmEDuEGMkcET IoL0qlmzib9vjktrnLxByVQYcSM n5MSj0JHJwjWltIsGmITL4 DxL6WSS4hCNnrU5kxYbmptemqJ3 wOyc+KmfarTkpWTP8PKg5S1UmPt v7YQKacZhdTZ3uuTDfBMpn Dn5taYxbuUhaCO1hIXHbmixmp89 4SgKvl9rhIFQaoNXfSUkmTYS0O4 6pb7M1VHOnJMNdKSZ8kAC4 vE2wuZhfacrnsRDypIldnoQbsDw lHHgkELbhY851DNYapRwdNrFwIT v3K8QbOur1TTPwbCvySI2j dIDpCMsmBx4bjIjzgTeiMD7hBTE ggrdhq250QsHoo9kkNAYrsPChPH llURO6J03ed8U3OBZxGOMj DBZ6kHP3lD9qdPbafszbtFSmuPw ejsAquQxuKAqnOCqdQ629AULkgC hgRkQntYe5Y5SiRsq4RAPp yAjwKT4dtVZwIXbqEx4laPjacLx iGS7cINSnzqnbz442CeTkb5czCL RdnQUcCMigHJS4B60nb2A9 DTYaPHDjVPH1oZT7sR0vwZvkzea gbGVmdDsgdmVydGljYWwtYWxpZ2 46IHRvcDsnPlBhdGllbnQg XIyuRBn0T2HcIdjwcMV+OV85URS lUV64yELgwTZbz4vlpKy0FoDbEM QeAEM8uXolCEkpu6YhVVVt N68zmGBzb7T5BYNbzJnscGZnEfY rhCT3cK8bOPtbaroyf6tpvtnqNj nlx4wsyz69vQ78Y16oHOwq PTErLUJzVAOnFDUxhOmaaj0qqU2 wIi8+IINafAC3oSI8rK1qSUBxBi V4WEopY682RwDhvRVzYnlw s7imf2jbdNz5LaL4JLAlxjAdtVc zQCM8t6DeHu90S77sEUxbHRJsLU NbPGWjTDJkmNwhit9btU9m Ii8+UDXfdAY4sIS2pW6bIxJlMgZ 0AZnzK334IaIrtMQfAmjrB84yM3 JvdXA+XJHfZop6GIDimBah FB2hfLKlPBuzWf4uWFK5XqJsGrA wZZvwS3GwMPWrggsfuzjiyST1GA WfJMNuyN53Wl5faUmkVFTv lBWVkY6rldqzd5gnktgwZiArICP aYSk4MPw3JXStcIpiBbWyJVX2Wm B6TQO1xPHltA7gkHbwzzfe qM4tP2LhJZClurqtAe30iV4bVuK eMpE1AGnoKub+YaEDYwbuL8UYTS pOHrDSHJS9G2McUkk0IHSq kGuoBE0hjOGzCHxpZh4znInciTa iWY9nGDDrcckmPMGteE4tJJCsfR JegAeqGS9vVYWftldot637 BfNlOYW6XTKvwZEiG4AxqD5vOnD bDEUqYKDzZ4JsfRVzXKusW314YM zlAsR5IUBzuzOoW7NrPKXn qRiqWxG8p9N4Lm9zJW7qPr6aJFn 5UR13AF21iQDcb1U6gYU0E7WgJJ IgngpficaekDX4CJEsQKKg iB57wTBtGBcsEg6yg1X4o419PCS lZTVlzI06Ix9bbGxfJJUjbHJDyD 4hmegkk3hmmjgwBlSnNLWa ADx3VTa0SBVegIjjYcBfURV8HzQ 1CGJ5aBMtpX2kmKqalfrysZ9rNo c+JhIzYARtmdG7B5CwLji6 SFQvfCvoXX1caORuAVffVc0eaYq tyMjaMR1zHJIiaphkBOBpsA9oBR YzxJRwyPfpFI5mPAPmpwnk g441TbKhSGO3DFNznDOfP1EeyQ8 tNuUdAYLhGIIgX4IroRAlMBtuB7 71TZlyKgX7MHGcidJcF9Jj BFBfoFodOzL0r7K4Wy0BCA2BYRQ 7J8HqWxm9MKEtdYtzKU7tdQXiYI lqMo0taVthlWfzKN4wPLQs lwuzVVFboY1vMOBhhUTdyVsoZK9 mSBQepbduk233ByJuWOQ7NPJevD PwO6XehY7dDmKwLODkTBKf L6DueXTmDAluA956ZZmuPlZ8EPS djjPxO8QzOZJxlIhpPtA6r7V5Bg 5PUDwvdGQ+LD03ij40X0Ke MyevMqg7AGKpCSZ3bBO4nM9qDCT wBUzwx0U8hZZ7W0LanyPlon2ib8 bqYQLyMEymL58pyBPks1F0 HNStwNO1RDYlqNjfJkQdsA72Sna +FBSirObzz4VvKskrb6sxs2skkE g2OcTzIQVabeKrzNroGCO1 b2RuHo26N36tSCjtXBCvESYdKLT jFVCjuUolti2gmH8qTi4+PGNvbC U3wDQ8mB2qJeDdAdM4RBva A289ViYbpBPbTukwt5ryi8yqzDu 4JgVhRLYffxMlmTmcHKP7a9FpHd 44T6BocSmdf6YySja0ve20 nALjt4Q9hHM1Y0XnJIIswhluxAS qyXkgYG1cFQBngxlvSFPnwY2gHQ OoH7d9SoSfMuT6CCavD3Ne gdQ7RYRpuEKyYXMrmXBPlT0grkd tk1jvupsdHyYuYBXnHUs7MYb0BS OdeTjcOkCsMNB0UuU8BYA7 mPZsuP5zzLjxsmisvH0dWca+UGh 0n5aarKCfEP9bwHE5TA25LG67gQ Qiz2Q3xWV9T7MoSXHjlitq nswtzSO2SZKlQWNtsQ38Sf7iqWc bPw6sTJBnTBN9ASTneHDmR9LnfJ 7kOwFgGJYcPAKpP2XmrYLe DSxlG464PCtiBmW6ADBdbaBcR9R lJOCrlCfbWdT8u4D0Mw7PID11RB 24UT28nODfz4N1gQN8T4Wx ZTQzcskefcgudGX6XPWlGVUtjG1 8Lc6itXwkRi1kEICwDAM3EMVtyP VmY8ZmwS9jJgBxLIVhYWIh V2IpsPQpAUwsO594LGtoReC5SYC kqhTlE6CqQIKqaVuzDfE1j3S3Lf 7IJa92AA65LB94xHZfu6V7 oKI8I7ZxQTRlhftnpwgznPW5IUR sSCKoyA56Rs3hvTvuYg6xAPAlTK B5ZYRprPIyA4TudA1qVlAq DALtDYPmK3QzgZGyJRobU173DMs mNvX3PPExopXlF6LyWDZchMvaSo Q0j4W1Tr0VVHpyoxe0Q6Hg PjwvdHI+UB99FEXmSJ92pTCxwGM pv2oqaNm8QdXwWLUiEUM5hLjtQU yhp3PyBWOaR83gvUKno4T7 IGN (more content not included)... [facility] Coding Summaryon 01-09-2024 Coding Summary HTMLBase 64 CwjmotdaBRw6hHq+PGhlYWQ+PE1 TWMCjS79orOGfxO4kG9TEXAoOSd pqNRUTEGhKCuTnpeAkEC3dcISkY XJu IC8+ER1cRVKoWjqgcQBok5F4kLI 3H07qkj0qVMmdwWK7PKMkMbUbca aqz4qvqGs7FEaiGkdnMyGa JQPvkS06ZNX1rH52Xp81hQHygWS en0apcWp0AvSsQPMpBYD8cWalXF ezf6QqUVAtH45dcJXms6J6 JTAjfNmtlULlRcIhtUF1pD2zBHb ebujbd4kygwguQix6gr16wTHem2 D8vCD2S6AmqkH2OAIcxMLb JtkjjHXTeE4johhtr5gjxvapCtV bGEGeEFx5WMv4MXLtzBsvHrBaQD 04UGO8MIGwxdWdB7XlXSOf sYzeWmE2g0F8Sm0HV2CZOgtkA9C NTUFSWTwvdGQ+FJ11qe71T3BzQb brTnt3LQWbHRZ9iVO8sX0x EWWnXWggt5G3tQZ6Q2RskjLryx1 hh2guVWEpQJyfP33jzFXsb5S2SS PjcSE3EWLmrOjbXqJflV50 Oyc+NGAggQzvb6UiEflih3smx9s khCj0InpqJTCrumTiqXndYVN3y9 OvAi7sLITxlXI0dJU1fT1x HxSmOvJ7VCpsE786CkZcgCVcYnx hE84gW4YxrQN+UVNfRft0PXZckO hjMV8dT4RrNZDlbbgvaCOc sQfoNC8dMGTmyobeSEOrmM6xYAX aA9i5NsOvYsV9OAveP6ZjOHKvtv xgWe73oE4jSrVqYhI9FDze N7EsnnZ8OXNzxVVxUSjaFJA7W59 rd9R1GTOgQVPcRSR4aAG6fJ4acB lnbjogbGVmdDsgdmVydGlj NYpvAIriB192GEAaxFnaHdSeITr uZyBEYXRlOiAgMDQvMTYvMjAyND wvdGQ+CUAsPFC5sEzoJABr mSCdZZpbOe0mlKdmsRlkOW4eLWI rmynoVTCsnF9nEHFyhWPgkDzlYI 1gPNSdoccmt313KoUwOEL2 JLLmwUGxM7QziT6oVkYdBBBhFCM fL7EwuLPtYJpbJ765DTkyMhB8TM PqyxMjE3PgIDWliXshUtJ2 c9Y4Am5Xd3JfbbymD8MmdQAqQcG oNhstYAg1A3XiSbpvwMB+PC90YW TdJR03DRh8ZXK5xYjjLEep VFFiG3FzmF3oWeDhJEJfICNrWgo +PHRhYmxlIHdpZHRoPScxMDAlJy IxmIbsLD6gRl7yJTQcEBJj sCtvkDZvVoSrp3gxJGVnWCiyPV0 vsYyuG8GxyFS1MJHtj7o7Zd92B9 8oJ0GcfEU+CTIczTL2lSW6 cB9vAlFeVdD7KOfcF830ZsEzwFZ bWqklu6obm7duuIc6XeH2AGNqre UwsSpfZQR7x3RhFr52N00l IHdpZHRoPSIxNSUiIHZhbGlnbj0 kcT3uUd5+IXXabQF8dYS1gG9mCn BnFjX2PCmiQ747RoXkcNVy Cfzyg0hjl2moaUl6PmYkFKGgolS wjStiCMV2i3BxEx45H5PqhDggr7 WmAkq2lw85hPSll5V6pCK3 V4NjZJEprymaiMWzuPtqII2zIPQ yvjneRJUxqM0xORFjQ1j5KyEoHk O4CWtuP4NwjuB0KIExaPHa KDZjmDOQpY8kbwwqt7lrhrlrSfZ rHPKnAGc8DEq7RJKaqJrfWgOsDF B9DrO5YQZ0qKRdiN1zeEmm ktzqyI8dVtu+MXT4wWNiiUFHCJ5 lOjwvdGQ+QQNhPVR3wJqtFPixKI MlpS6mLSKaR4j2XmMmVdT6 ZIucN9ZtruA1QJHnjQNtOSBysDH FvQ9qbpmdh1hsdesvNpHpKKXzTT j7VGx1BLTrdBorFbXhBJF5 BoF8WGT4jTDwcT3kgHtzyysakN4 wOyc+YcfijQcdIAC4MFl1F3XiQb s1YCJddDftCG2yuRUvPHpt Os5tuUvwsSziEW7dPIPvlwhoo61 8HuYrw3sgWYGthSZnHOwfSHY4G0 2ij8X6VVRoQBCzJAR7lEY1 rL3xcShkgejlxAFucAcfpuXraAq zVOglVTgyI207NLAdzEshHaUjTV u4L0StYyo9JRMgoQtgMW2s nUHyXFkcPa3nzZdzvHuiBU8tORD gzyxlo596NxVem2ntQFNxwRFjOQ uoUGH4L06rd9U9XQLwUJGy RMO5sDD8qS7vhDzjoukwtIBwcZy cruNapYmlBSpiKEsoC630QOYgqH ulRiPldUb9N7InVtn1YWCb zTrxYI2mtUMsJRirNm0klChqmXu zEH1cAIHgnlvct613KoDgc8avUT CppTUaQAdjYOF5K41zp4R2 OBWnIDYdZIT7nPJ8oQ6baUnprqp gbGVmdDsgdmVydGljYWwtYWxpZ2 46IHRvcDsnPlBhdGllbnQg KYwgPWc8N8ZwBwqgoSM+QS92HPV zZH27pBErnZZxv5bhpKm2XmMlJR OmDQO1aQfeSEerj3UiLVTg E09cdSAwy6Z3WEVyjYtfoOMiSuR uoCZ5tY6dDOmffbsqu3xmbexiTr sgz1kpnu74wJ17K24wZIyb BMAsIGLhQYNmQFUapErhop5ocQ1 wIi8+LXMyzVS8rRB9nC1hXJGcGl W6HSnkE533OjYotDVoMdpy q9ivj7cntXc2ErU5BKJinaMffDe yVGU2l7PtUx18E69fKQcvKPFkBO UuYDBmQDWggRkstt7zgY5s Ii8+IVLghGL7tZX9nX5fVkFuJrL 5QTjiJ048NlPupXOlJkblB54qY2 JvdXA+PZQyFqq3UAQebAii PR3hoHByIHweJq6pZIU4RzDxTcN oLTovG4HeFTTqednfcudyiWU7RG YcZLKyvH75Mf8zcPdtUUQa qGLJpK3eecrzw9whiijgBoVbESK sSNw7XOl9BPPauUubSbJzHUL4Iw H9OHG9vTOpyH7llMpgzvjt sQ1lZ1LbLCKnetoiIe72iT4qPiG fTvU2BPxwHba+HvBABwnwY4PLGI eDGmEKFNX2I4JdJty7CBAi dBywUD5suYGzXSwgRo7rbLafdNv eNX9rJWCuprmnZTRotZ6zAOSdhE FqoRllFY8sYSYprxkvd666 PzFwXUA7KNSoaMHhW6XorG6tSiK zBVAeLHXuC3CcdUClFAotO759AJ twNvY6AIRmnoAcU7HsXGWw rRdhUpF9y3H2Zn2iZQ0iPh3lQFe 6RX75KZ97iTCqj0X5pJX3C0VsJN FzjtihsumdaGG0UYVcXXEq yK62hKOxSCquEy5xl8R6z489HJM qKUImtO41Ti8pbFliKVZrjYLWwH 5burmxt7xjskloZhSdZWLz BNf9IXx3NWMebTorBaBfOOI8LkK 1ZZA9wTCrbI4atZiaeefyjD1sVm c+SdDgLMRdojJ1Z4YiGis8 EVMsfTduIT3zdOJrSZlkNe3roCc tsZrbRN2jUPAejkmyQQQurH3kXJ NbiDOrwMupSH2xYDDamotn h927LlQkMMB0BCTboRCyF3DqwV0 tZwZjYZZoUBHrG2PmhMObUVwaS9 58RSdkWtH4YOTyxuXhE1Xi XKNibSpxEpL4b6K7Jx2QTD7TKND 4S3KwBrf8TQSneApsVW7kgNDjQA zcSa9buKovvOixUX9pLVKg hhpzMYOirL2bSAIjpPGyxPzcBI7 vFWSpwevyd868IjDmXQV1LWEtlP CcK6NcoO9vDfRkZQJzILOb M5PxvVAvJAnzZ521UXvuJmV6TNA wplNbL0OzEFEjlPdhUdN1e2Q1Ii 5PUDwvdGQ+TP69ic48R3Fk GckxRzb3GBLfXFO6fLF2gE9jMYB kTQkta9V3qDS5L6PesbTjte6ih8 rxZXAcHEcpD73qmJXjh8S7 KYEyiRZ4SAKblTtsKlXwtK87Gfx +QARldJodx8FjUvdmr3aef0djeP y1TdBtGARvrxPluBeoIYS3 r6AaRt86H52iPSvuDMCzZTXxISK wXIToaYrpgz3urI0mVl9+PGNvbC A0nDG2sK9oZhGsHeR1JDbt O483YmUrlOIrXnujk0eis3whsHe 0QtWkPNGranXhjAmrFWA7i6VgUv 50I0KnoIsak5SaOfg6fo14 jNUbz6F3lUV7O9YgWMGrstfgeHI spCdnKO7fKDQyyvusHXSkzP5xSO EwJ2b2QjFdEfJ4PTgaD4Bc wfZ0EGExdSGyYPMdrLJTfX9arte od7olnadqWfTfITSkTGu3MDt5DC CyhBtmKzEvFBP8GmM2COU5 lGKqoZ7bbSsvnuhqyK8vCua+UGh 8e2dexGTyCP9fpEF3GT90RR61mB Ecf7K3lYJ4D6ExOJTboojn exylkEE1PMNpRMNxoL02An1vdOr pNm8eZFUjTHP9LTZttGEnP1UkfG 8iPfPmIYUeGOFpL4FzmSRd NEihY640UTxgGwT8TWTjifImV3P mTZKppGhxMvT0y1S0Eu9BPZ74CT 34HN50qDJht0Q9qGH1T0Eu LHWiemrpgeropZF9YJQsPJDhyS3 3Ga1mpZueSj4lRCTiWHE3DXZdyY FjO0VvjD7rDwJyJWNoQYKq Y2UrzVPtQUafA654VUfmXqN9HJY miwWmH9UiZUTatCkgFpB3a3I6Qy 3OQy52GB11DS52eCNbs6B2 nIP7Q2CdSYVeufdouyundOY0JBK iLZHfyT31Th9aqWayAg3rYMDvCL L0ZKZmbSTrS4PkaZ0jPnOj OBYoHTVnC4GreYXvTSkuL965LUe qStU9ZHIbjxOqE0NcVYLzqOyoHd X0x2Q5Ky4UOTruaob4R7Th PjwvdHI+WE38JALdGA06eIAbxTP gf6dojQh8RvJrDKJjHRH5sFzoBB kjp6NwUCKiS86oiAKgz9K2 IGN (more content not included)... [facility] XR Hip Complete Right w/ Pel vison [...] MD 01/08/24 3:46 pm Technologist: DARLEEN MALONE [facility] XR Sacrum/Coccyx Minimum 2 V iewson 01-05-2024 [...] MD 01/08/24 3:46 pm Technologist: DARLEEN MALONE [facility] XR Spine Lumbosacral Complet e w/ Bendingon [...] up as needed. Final Dictated by: Gunnar Beckfodr MD Dictated DT/TM: 01/08/24 8:43 Signed (Electronic Signature): Gunnar Beckford MD 01/08/24 3:46 pm Technologist: DARLEEN MALONE [facility] 08-23-2023 Telemedicine [id number] Lior Green in 1990 F Date Provider Department Center 08/23/2023 [id number] [place] [facility] No family history on file Level of Service:14956 NM OFFICE/OUTPATIENT ESTABLISHED LOW MDM 20-29 MIN [facility] 37on 07-11-2023 37 Follow-up with famil y medicine as directed. [facility] Telemedicine 07-11-2023 Telemedicine [id number] Lior Green in 1990 F Date Provider Department Center 07/11/2023 3378[facility] [facility] No family history on file Level of Service:36153 NM OFFICE/OUTPATIENT ESTABLISHED [facility] 10-19 MIN Reason for Visit and Comments: Headache [52] Normal [facility] HEPATITIS B SURFACE ANTIBODY QUANTon 09-01-2022 HEPATITIS B VIRUS SURFACE AB (MIU/ML) IN SERUM 3.83 mIU/mL Normal [facility] Comment on above: Result Comment: INTE RPRETATION: NONREACTIVE<8.00 mIU/mL INDETERMINATE8.00 - 12.00 mIU/mL REACTIVE>12 mIU/mL Performed By: #### L [id number] #### [facility] (TAMYAKER) [address] [place] [address] T-Spoton 10-18-2021 T-Spot. TB Test Normal [facility] Comment on above: Result Comment: [facility] [employer] [address] [place] [address] (NOTE) T-SPOT.TB Test Results --------- T-SPOT TB [...] R UBI, FANG, JAGDEEP, VZI, TSPOT #### [facility] [employer] [address] [place] [address] Polymer Specialist: Isreal Astorga MD Measles (Rubeola) Imon 10-15 Measles (Rubeola) Im 6.05 Normal >1.09 [facility] Comment on above: Result Comment: Interpretation: IMMUNE Reference Range: <0.91 Not Immune 0.91-1.09 Equivocal >1.09 Immune Performed By: #### R UBI, FANG, JAGDEEP, VZI, TSPOT #### [place] [id number] Polymer Specialist: Isreal Astorga MD Mumps,Immun,Abon 10-15-2021 Mumps,Immun,Ab 5.42 Normal >1.09 [facility] Comment on above: Result Comment: Interpretation: IMMUNE Reference Range: <0.91 Not Immune 0.91-1.09 Equivocal >1.09 Immune Performed By: #### R UBI, FANG, JAGDEEP, VZI, TSPOT #### [place] [id number] Polymer Specialist: Isreal Astorga MD VZ Immunityon 10-15-2021 VZ Immunity 2.55 Normal >1.09 [facility] Comment on above: Result Comment: Interpretation: IMMUNE Reference Range: <0.91 Not Immune 0.91-1.09 Equivocal >1.09 Immune Performed By: #### R UBI, FANG, JAGDEEP, VZI, TSPOT #### [place] [id number] Polymer Specialist: Isreal Astorga MD Rubella Ab, IgGon 10-14-2021 Rubella Ab, IgG 279.3 IU/mL Normal [facility] Comment on above: Result Comment: REFERENCE RANGE: <5.0 NON-REACTIVE (non-immune) 5.0 TO 9.9 EQUIVOCAL >=10.0 REACTIVE (immune) Performed By: #### R UBI, FANG, JAGDEEP, VZI, TSPOT #### [place] [id number] Polymer Specialist: Isreal Astorga MD Basic Metabolic Panelon Anion gap [Moles/Vol] 11 mmol/L 9 - 17 mmol/L [place] Bun/Cre Ratio NOT REPORTED [place] Calcium [Mass/Vol] 8.7 mg/dL 8.6 - 10. 4 mg/dL [place] Chloride [Moles/Vol] 107 mmol/L 98 - 10 7 mmol/L [place] CO2 [Moles/Vol] 23 mmol/L 20 - 31 mmol/L [place] Creatinine [Mass/Vol] 0.59 mg/dL 0.5 - 0.9 mg/dL [place] GFR >60 >60 mL/min [place] GFR Non- >60 >60 mL/min [place] GFR/1.73 sq M predicted among non-blacks MDRD (S/P/Bld) [Vol rate/Area] [place] Comment on above: Average GFR for 30-3 9 years old: 107 mL/min/1.73sq m Chronic Kidney Disease: <60 mL/min/1.73sq m Kidney failure: <15 mL/min/1.73sq m eGFR calculated using average adult body mass. Additional eGFR calculator available at: http://[email or web address]/multiple_crcl_2012.htm GFR/1.73 sq M predicted among non-blacks MDRD (S/P/Bld) [Vol rate/Area] NOT REPORTED [place] Glucose [Mass/Vol] 91 mg/dL 70 - 99 mg/dL [place] Potassium [Moles/Vol] 4.1 mmol/L 3.7 - 5.3 mmol/L [place] Sodium [Moles/Vol] 141 mmol/L 135 - 144 mmol/L [place] Urea nitrogen [Mass/Vol] 10 mg/dL 6 - 20 mg/dL [place] CBC Auto Differentialon Basophils (Bld) [#/Vol] 0.03 10*3/uL [place] Basophils/100 WBC (Bld) 1 % 0 - 2 % [place] Differential Type NOT REPORTED [place] Eosinophils (Bld) [#/Vol] 0.15 10*3/uL [place] Eosinophils/100 WBC (Bld) 3 % 1 - 4 % [place] Erythrocyte distribution width (RBC) [Ratio] 12.4 % 11.8 - 14.4 % [place] Hematocrit (Bld) [Volume fraction] 41.3 % 36.3 - 47.1 % [place] Hemoglobin (Bld) [Mass/Vol] 13.3 g/dL 11.9 - 15.1 g/dL [place] Immature granulocytes (Bld) [#/Vol] 10*3/uL [place] Immature granulocytes (Bld) [#/Vol] 0 % 0 [place] Lymphocytes (Bld) [#/Vol] 1.91 10*3/uL [place] Lymphocytes/100 WBC (Bld) 39 % 24 - 43 % [place] MCH (RBC) [Entitic mass] 29.7 pg 25.2 - 33.5 pg [place] MCHC (RBC) [Mass/Vol] 32.2 g/dL 28.4 - 34.8 g/dL [place] MCV (RBC) [Entitic vol] 92.2 fL 82.6 - 102.9 fL [place] Monocytes (Bld) [#/Vol] 0.46 10*3/uL [place] Monocytes/100 WBC (Bld) 10 % 3 - 12 % [place] Platelet mean volume (Bld) [Entitic vol] 10.7 fL 8.1 - 13.5 fL [place] Platelets (Bld) [#/Vol] NOT REPORTED [place] Platelets (Bld) [#/Vol] 246 10*3/uL [place] RBC (Bld) [#/Vol] 4.48 10*6/uL 3.95 - 5.11 m/uL [place] RBC morphology finding Nom (Bld) NOT REPORTED [place] Segmented neutrophils/100 WBC (Bld) 47 % 36 - 65 % [place] Segs Absolute 2.29 [place] WBC (Bld) [#/Vol] 0.0 10*3/uL 0.0 per 100 WBC [place] WBC (Bld) [#/Vol] 4.9 10*3/uL [place] WBC Morphology NOT REPORTED [place] Iron And TIBCon 05-31-2019 Iron [Mass/Vol] 92 ug/dL 37 - 145 ug/dL [place] Iron Saturation 38 % 20 - 55 % [place] TIBC 243 ug/dL Low 250 - 450 ug/dL [place] UIBC 151 ug/dL 112 - 347 ug/dL [place] Otheron 05-31-2019 Interpretation and review of laboratory results Abnormal [place] Vitamin D 25 Hydroxyon 05-31 Vit D, 25-Hydroxy 20.9 ng/mL Low 30 - 100 ng/mL [place] Comment on above: Reference Range: Vitamin D status Range Deficiency <20 ng/mL Mild Deficiency 20-30 ng/mL Sufficiency 30-100 ng/mL Toxicity >100 ng/mL Vital Signs Date Time Vital Sign Value Performing Clinician Inocente canela 04-29-2024 13:25-0400 Diastolic blood pressure 82 mm[Hg] [facility] 04-29-2024 13:25-0400 Heart rate 80 /min [facility] 04-29-2024 13:25-0400 Respiratory rate 16 /min [facility] 04-29-2024 13:25-0400 SaO2% (BldA) [Mass fraction] 99 % [facility] 04-29-2024 13:25-0400 Systolic blood pressure 145 mm[Hg] [facility] 04-29-2024 10:53-0400 Body temperature 97.4 [degF] [facility] 04-29-2024 10:28-0400 Inhaled oxygen flow rate 2 L/min [facility] 04-29-2024 06:46-0400 Body height 170.18 cm [facility] 04-29-2024 06:46-0400 Body mass index (BMI) [Ratio] 37.6 kg/m2 [facility] 04-29-2024 06:46-0400 Body weight 109 kg [facility] 04-19-2024 09:11-0400 Body height 172.72 cm [facility] 04-19-2024 09:11-0400 Body mass index (BMI) [Ratio] 35.9 kg/m2 [facility] 04-19-2024 09:11-0400 Body weight 107 kg [facility] 02-15-2024 11:55-0400 Body height 172.72 cm [facility] 02-15-2024 11:55-0400 Body mass index (BMI) [Ratio] 36.1 kg/m2 [facility] 02-15-2024 11:55-0400 Body weight 107.95 kg [facility] Encounters Encounter Date Encounter Type Care Provider Facility Start: 06-17-2024 End: 06-17-2024 ambulatory BRYAN CONCHIS Not Available Start: 06-11-2024 End: 06-11-2024 ambulatory NON STAFF [facility] Work Phone: Start: 06-11-2024 End: 06-11-2024 Patient encounter procedure MD Santa Estrada II Work Phone: [facility] Work Phone: Start: 05-31-2024 End: 05-31-2024 ambulatory BRYAN R CONCHIS [facility] Start: 05-23-2024 End: 05-23-2024 ambulatory SANDRITA L FLORO Not Available Start: 05-23-2024 End: 05-23-2024 ambulatory SANDRITA L FLORO Not Available Start: 05-15-2024 End: 05-15-2024 ambulatory NON STAFF [facility] Work Phone: Start: 05-15-2024 End: 05-15-2024 [facility] Work Phone: Start: 04-29-2024 Non-patient / Non-visit [facility] [place] Work Phone: Start: 04-29-2024 End: 04-29-2024 Admission to same day surgery center [facility] [place] Start: 04-29-2024 End: 04-29-2024 ambulatory NON STAFF [facility] Work Phone: Start: 04-25-2024 End: 04-25-2024 ambulatory SANDRITA L FLORO Not Available Start: 04-19-2024 End: 04-19-2024 ambulatory NON STAFF [facility] Work Phone: Start: 04-19-2024 End: 04-19-2024 Patient encounter procedure [facility] Work Phone: Start: 04-19-2024 Registered [facility]ring [facility]Physical Therapy [place] Start: 04-19-2024 End: 04-19-2024 ambulatory NON STAFF [facility] Work Phone: Start: 04-19-2024 End: 04-19-2024 Patient encounter procedure [facility] [place] Work Phone: Start: 04-16-2024 End: 04-16-2024 ambulatory SANDRITA L FLORO Not Available Start: 04-15-2024 End: 04-15-2024 Patient encounter procedure [facility]Pre[facility]Surgical Testing Work Phone: Start: 04-15-2024 End: 04-15-2024 ambulatory NON STAFF [facility] Work Phone: Start: 03-13-2024 End: 03-13-2024 ambulatory [facility] Facility: SURG [facility] Start: 03-12-2024 End: 03-12-2024 Patient encounter procedure [facility] [place] Work Phone: Start: 03-12-2024 End: 03-12-2024 ambulatory NON STAFF [facility] Work Phone: Start: 02-29-2024 End: 02-29-2024 ambulatory SANTA OROZCO [facility] Start: 02-27-2024 End: 02-27-2024 ambulatory NON STAFF [facility] Work Phone: Start: 02-27-2024 End: 02-27-2024 Departed Referred [facility] Start: 02-26-2024 End: 02-27-2024 ambulatory Peter Booth Facility:[facility] Start: 02-15-2024 End: 02-15-2024 ambulatory NON STAFF [facility] Work Phone: Start: 02-15-2024 End: 02-15-2024 Patient encounter procedure [facility] Work Phone: Start: 02-01-2024 End: 02-01-2024 ambulatory VICTOR M LUJAN Not Available Start: 01-25-2024 End: 01-26-2024 ambulatory Audra Reynoso RACING 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-WEIGHBRIDGE OPERATOR Facility:[facility] Start: 01-12-2024 End: 01-13-2024 ambulatory Alec Patel MD Facility:[facility] Start: 01-05-2024 End: 01-06-2024 ambulatory Audra Reynoso RACING MECHANIC-WEIGHBRIDGE OPERATOR Facility:[facility] Start: 12-15-2023 End: 12-15-2023 ambulatory VICTOR M LUJAN Not Available Start: 08-23-2023 End: 08-23-2023 ambulatory [facility] Start: 07-11-2023 End: 07-11-2023 ambulatory [facility] Start: 09-01-2022 End: 09-01-2022 ambulatory [facility] Start: 09-01-2022 End: 09-01-2022 Encounter for antibody response examination [facility] Start: 10-14-2021 End: 10-15-2021 ambulatory [facility] Start: 10-13-2021 ambulatory [facility] Start: 04-02-2020 End: 04-02-2020 Subsequent hospital visit by physician Yesica [facility] Start: 05-31-2019 End: 05-31-2019 Subsequent hospital visit by physician Yesica MILLER [place] Comment on above: History of bariatric surgery; [...] Surgery: [id number] Result Comment: PERF ORMED BY: [facility] [address] [place] [address] PATHOLOGIST PLASTIC SURGERY ASSISTANT GENO BENEDICT M.D. Start: 03-12-2024 Methicillin resistan t Staphylococcus aureus culture Start: 02-15-2024 Pelvis X-ray Start: 02-15-2024 Radiologic examinati on of knee Start: 05-31-2019 25 hydroxy includes fractions if performed Yesica Kahn Work Phone: Start: 05-31-2019 Basic metabolic pane l calcium total Yesica Khan Work Phone: Start: 05-31-2019 Blood count complete auto&auto difrntl wbc Yesica Khan Work Phone: Start: 05-31-2019 Iron binding capacity J barrie Khan Work Phone: Plan of Treatment Date Care Activity Detail Author Start: 06-11-2024 X-ray of left knee XR knee LT 3V - NOT FOR ER USE [facility] Start: 06-11-2024 XR Knee - left [address] [facility] Start: 04-29-2024 Hospital admission [facility] Start: 04-29-2024 End: 04-29-2024 [facility] Start: 04-29-[address] [facility] Start: 04-19-2024 Plain X-ray of left femur XR femur L T 2V* [facility] Start: 04-19-2024 Plain X-ray of left tibia and left fibula XR tibia fibula LT 2V* [facility] Start: 04-19-2024 XR Femur - left [address] [facility] Start: 04-19-2024 XR Tibia and Fibula - left [address] [facility] Start: 04-15-2024 [facility] Start: 03-12-2024 MRSA Culture MRSA Culture [facility] Start: 02-15-2024 Pelvis X-ray XR pelvis 1-2V [facility] Start: 02-15-2024 Radiologic examinati on of knee XR knee LT 4V* [facility] Start: 02-15-2024 XR Knee - left [address] [facility] Start: 02-15-2024 XR Pelvis [address] [facility] Start: 07-02-2022 DTaP/Tdap/Td vaccine (2 - Td) DTaP/Tdap/Td vaccine (2 - Td) [place] Start: 05-26-2020 Influenza vaccination Flu vaccine (# 1) [place] Start: 04-21-2020 End: 04-21-2020 Office Visit 04/21/2020 Office Visit Obstetrics and Gynecology Karel Palm DO [address] [place] [id number] [phone] 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 [place] Start: 05-26-2019 Influenza vaccination Flu vaccine (# 1) [place] Start: 2009 Cervical cancer screen Cervical canc er screen [place] Start: 2009 Screening for malign ant neoplasm of cervix Cervical cancer [place] Start: 2007 DTaP/Tdap/Td vaccine (1 - Tdap) DTaP/Tdap/Td vaccine (1 - Tdap) [place] Start: 2003 [facility] screen [facility] [place] Start: 2003 HIV screening [facility] [place] Start: 2001 Varicella Vaccine (1 of 2 - 13+ 2-dose series) Varicella Vaccine (1 of 2 - 13+ 2-dose series) [place] Start: 1989 Varicella vaccine (1 of 2 - 2-dose childhood series) Varicella vaccine (1 of 2 - 2-dose childhood series) [place] End: 05-31-2019 Cobalamin (Vitamin B12) [Mass/Vol] Vitamin B12 Lab Routine History of bariatric surgery 1 Occurrences starting 05/31/2019 until 05/31/2019 [place] Comment on above: 1 Occurrences starti ng 05/31/2019 until 05/31/2019 Cobalamin (Vitamin B 12) [Mass/Vol] Vitamin B12 Lab Routine History of bariatric surgery 05/31/2019 8:42 AM EDT [place] Cotinine [Mass/volum e] in Serum or Plasma [facility] Cotinine [Mass/volum e] in Serum or Plasma [facility] End: 04-02-2020 Covid-19 Ambulatory Covid-19 Ambulatory Lab Routine Once for 1 Occurrences starting 04/02/2020 until 04/02/2020 [place] Comment on above: Once for 1 Occurrenc es starting 04/02/2020 until 04/02/2020 Covid-19 Ambulatory Covid-19 Amb ulatory Lab Routine 04/02/2020 10:12 PM EDT [place] Glucose measurement estimated from glycated hemoglobin [facility] Methicillin resistan t Staphylococcus aureus [Presence] in Unspecified specimen by Organism specific culture [facility] MR Knee - left WO contrast [facility] Nicotine [Mass/volum e] in Serum or Plasma [facility] Nicotine [Mass/volum e] in Serum or Plasma [facility] Patient Education Know your Meds [facility] Work Phone: [facility] Immunizations Immunization Date Immunization Notes Care Provider Fa cility 07-29-2021 COVID-19 mRNA-1273 (Moderna) [facility] 10-29-2020 COVID-19 mRNA-1273 (Moderna) [facility] 10-01-2020 COVID-19 mRNA-1273 (Moderna) [facility] 07-03-2019 influenza virus vacc ine, unspecified formulation [place] 07-02-2012 tetanus toxoid, redu [place] diphtheria toxoid, and acellular pertussis vaccine, adsorbed [place] Payers Date Payer Category Payer Self-pay [id number] 2023 Unknown 2023 Unknown [id number] 2022 Unknown [id number] 2020 Unknown [id number] 2018 Unknown [employer]ICAL M[employer] M [employer] MH EMP xxxxxxxxxxxx 2018-Present [phone] [address] [place] [address] xxxxxxxxxxxx [id number] 2018 Medicaid [id number] 2014 Unknown [employer] xxxxxxxxxxx 2014-Present [phone] [address] [place] [address] xxxxxxxxxxx [id number] .[id number] 1988 Unknown [id number] 2.16.840.1.549631.3.579.2.196 1988 Unknown [id number] 2.16.840.1.156697.3.579.2.196 1988 Unknown [id number] 2.16.840.1.665307.3.579.2.196 1988 Unknown [id number] 2.16.840.1.986344.3.579.2.128 6 1988 Unknown [id number] 2.16.840.1.790164.3.579.2.128 6 1988 Unknown [id number] 2.16.840.1.957575.3.579.2.128 6 1988 Unknown [id number] 2.16.840.1.153366.3.579.2.718 1988 Unknown [id number] 2.16.840.1.896127.3.579.2.718 1988 Unknown [id number] 2.16.840.1.039920.3.579.2.718 1988 Unknown [id number] 2.16.840.1.760882.3.579.2.718 1988 Unknown [id number] 2.16.840.1.015082.3.579.2.718 1988 Unknown [id number] 2.16.840.1.256342.3.579.2.718 1988 Unknown [id number] 2.16.840.1.331061.3.579.2.718 1988 Unknown [id number] 2.16.840.1.801071.3.579.2.125 9 1988 Unknown [id number] 2.16.840.1.935979.3.579.2.125 9 1988 Unknown [id number] 2.16.840.1.330882.3.579.2.125 9 1988 Unknown [id number] 2.16.840.1.706372.3.579.2.125 9 1988 Unknown [id number] 2.16.840.1.138093.3.579.2.125 9 1988 Unknown [id number] 2.16.840.1.399744.3.579.2.125 9 1988 Unknown [id number] 2.16.840.1.679742.3.579.2.125 9 1988 Unknown [id number] 2.16.840.1.036023.3.579.2.125 9 Unknown [facility] Employees [id number] Unknown [id number] 2.16.840.1.259071.3.579.2.531 Unknown [id number] 2.16.840.1.148456.3.579.2.531 Unknown [id number] 2.16.840.1.400150.3.579.2.531 Unknown [id number] 2.16.840.1.612846.3.579.2.531 Social History Date Type Detail Facility Start: 05-17-2019 End: 01-03-2020 Tobacco smoking status NHIS Former [place] Start: 05-17-2019 End: 01-03-2020 Cigarettes smoked current (pack per day) - Reported [place] Start: 05-17-2019 Alcohol intake Yes [place] Start: 05-17-2019 Alcohol Comment social [place] Sex Assigned At Not on file [place] Start: 01-03-2020 Alcohol intake Current drinke r of alcohol (finding) [place] Start: 11-14-2019 End: 04-29-2024 Tobacco smoking status DEIS Never smoked tobacco (finding) [facility] Start: 1990 Sex Assigned At Female F [facility] NEGATED: Highlighted row [facility] Medical Equipment Procedure Code Equipment Code Equipment Origin al Text Equipment Identifier Dates Arthroplasty, knee, total, minimally invasive Uncoated unicondylar knee femur prosthesis [id number] FDA Start: 04-29-2024 Arthroplasty, knee, total, minimally invasive Uncoated unicondylar knee tibia prosthesis, metallic ()[id number] FDA Start: 04-29-2024 Arthroplasty, knee, total, minimally invasive Unicondylar knee insert ()[id number] FDA Start: 04-29-2024 Arthroplasty, knee, total, minimally invasive Orthopaedic cement, non-medicated ()[id number] FDA Start: 04-29-2024 Goals Date Patient Goal [...] these instructions at home: Medicines ? Take sihx-iwd-opwpmeq and prescription medicines only as told by [...] keep your urine pale yellow. ? Take eexp-vrb-uwfrnhw or prescription medicines. ? Eat foods that [...] and water are not available, use hand passenger tire builder. ? Place dry dressings as needed. ? [...] provider. Document Revised: 03/15/2022 Document Reviewed: 03/15/[address] Patient Education ? 2022 [place]. [facility] 02-27-2024 Note [facility] Clinical Discharge Summary PERSON INFORMATION Name LUCILA JACQUES Age 33 Years 1990 Sex FEMALE Language Sri [place]ankan PCP Provider, None Marital Status Med Service Observation Acct# Arrival 02/26/2024 22:40:28 Visit Reason Abdominal pain; ACUTE CHOLECYSTITIS Acuity LOS 000 10:25 Address: [address] [address] Comment: PROVIDER INFORMATION VITALS INFORMATION Vital Sign [...] ibuprofen Medication List: New Medications [id number], [address], [place] [id number], [phone] acetaminophen-hydrocodone (acetaminophen-hydrocodone 325 mg-5 mg oral tablet) [...] range between ( 1.3 and 2.9 ) [place] Abs#: 0.6 x103/mcL -- Normal range between ( 0.0 and 0.8 ) Auto Baso %: 0.4 % -- Normal range between ( 0.2 and 2.0 ) Auto [place] %: 8 % -- Normal range between [...] Anion Gap: 1 (more content not included)... [facility] 01-15-2024 Note [id number]# 1.00OTGTIFF [facility] 01-12-2024 Note [facility] SURGERY Clinical Discharge Summary PERSON INFORMATION Name LUCILA JACQUES Age 33 Years 1990 Sex FEMALE Language [place] PCP Provider, None Marital Status Med Service Pain Management Surgery Acct# Arrival 01/12/2024 10:59:54 Visit Reason GENICULAR PAIN Acuity LOS 004 01:11 Address: [address] [place] [address] Comment: PROVIDER INFORMATION VITALS INFORMATION Vital Sign [...] AM Confirmed DIAGNOSIS Comment: PHYS DOC NOTES [facility] 01-11-2024 Note [id number]#[id number] The history of present illness has been reviewed. There are no changes document. [Electronically Signed on: 01/12/2024 11:34 EDT] __ ALEC PATEL MD [Verified on: 01/12/2024 11:34 EDT] __ ALEC PATEL MD [Transcribed on: 01/11/2024 13:06 EDT] [facility] 08-23-2023 Note Date of Telehealth V isit: 08/23/23 The patient was notified that using 3rd green party telecommunication application (e.g. [employer]) is not HIPAA compliant and may carry some privacy risks: Yes This visit was conducted tagr-lt-gvvu with the use of audio and video [...] shortness of breath. She has been using tbua-afm-eaodvdb medications with minimal relief of symptoms. ROS: [...] EMR, and coordinating care. Ching Brooks PA-C [facility] 07-11-2023 Note [facility] Telemedicine Visit Date of Telehealth Visit: 07-11-2023 The patient was notified that using 3rd green party telecommunication application (e.g. [employer]) is not HIPAA compliant and may carry some privacy risks This visit was conducted psxc-ov-nnrc with the use of audio and video [...] migraines. Patient states that she is taken rgdk-fpu-pkgjwpk Tylenol and Tylenol PM. She has a [...] today's date. Greater than 16 minutes spent yaou-mp-dgwj assessing patient, reviewing chart and discussing plan of care including treatment options. Care collaborated all questions answered. Rekha Mustafa PA-C Portions of this chart have been completed with voice recognition software, please excuse any errors. [facility] Evaluation note No assessment information availa [facility] Work Phone: Evaluation note Diagnosis Onset Date Primary osteoarthritis of left knee [facility] Work Phone: Evaluation note* Diagnosis Onset Date Resolution Status Primary osteoarthritis of left knee acute Primary osteoarthritis of left knee [facility] Work Phone: Evaluation note* Diagnosis Onset Date Resolution Status Primary osteoarthritis of left knee acute Status post left partial knee replacement [facility] Work Phone: Assessments Diagnosis History of bariatric surgery Bariatric surgery status Health care maintenance Unspecified general medical examination Advance Directives No Advanced Directives Records FoundDocuments on File Type Date Recorded Patient Community Assistant Expl anation Advance Directives and Living Will Power of Gameroom Technician Advance Directive Response Recorded Date/ Time Advance Directives No July 3:35pm Advance Directive Response Recorded Date/ Time Advance Directives No March 26 4 9:12am Summary Purpose Family History No Family History Records Found Relationship Condition Age at Onset Recorded Date/T dawood father Hypertension Unknown Diabetes mellitus Unknown mother Peripheral vascular disease Unknown Chief Complaint and Reason for Visit Chief Complaint CONSULT DR LUJAN LT KNEE PAIN M25.562 - Pain in left knee Chief Complaint CONSULT DR LUJAN [...] section and content) DATE CREATED AUTHOR 10/18/2021 [facility] DATE CREATED AUTHOR AUTHOR'S ORGANIZ ATION 08/30/2023 [facility] DATE CREATED AUTHOR AUTHOR'S ORGANIZ ATION 02/02/2024 [facility] DATE CREATED AUTHOR AUTHOR'S ORGANIZ ATION 03/04/2024 [facility] DATE CREATED AUTHOR AUTHOR'S ORGANIZ ATION 03/16/2024 [facility] DATE CREATED AUTHOR AUTHOR'S ORGANIZ ATION 06/02/2024 [facility] DATE CREATED AUTHOR AUTHOR'S ORGANIZ ATION 06/06/2024 [facility] DATE CREATED AUTHOR AUTHOR'S ORGANIZ ATION 06/13/2024 [facility] DATE CREATED AUTHOR AUTHOR'S ORGANIZ ATION 06/19/2024 [facility] EPIC Care Teams (unrecognized sec tion and content) [...] 12, 2024 Santa Estrada II, MD [facility]ending [facility], Referring Provider Active Start: March 12, [...] BE BASED ON THE PRIMARY CLINICAL RECORDS. [facility] [employer] [facility]. provides no warranty or guarantee of the accuracy or completeness of information in this document.
[2024-06-21 10:50] LABS: Total Protein Urine Random 11.3 mg/dL (<=11.9)
[2024-06-21 10:52] LABS: Total Protein 24 Hour Urine 101.7 mg/24hr (<=149.1); Total Volume 24 Hour Urine 900 mL/24hr
== END 2024-06-21 10:36 | disposition home or self-care (01) ==
LOC: LAB 10:35
PROVIDERS: Visit Provider Obstetrics & Gynecology
DX: O09.521 Supervision of elderly multigravida, first trimester (principal)
CPT/HCPCS: 81050; 84156

== ENCOUNTER 2024-06-21 10:38 | Outpatient (OUT) | payer BC, SELFPAY ==
--- NOTE | 2024-06-21 10:40 | US_ITS ---
[address] [address] Patient Name: LUCILA JAMES MRN: [id number] date: 1990 Sex: F Assigned Patient Location: [facility] Current Patient Location: LAB Accession/Order Number: [id number] Exam Date: 06/21/2024 10:41 Report Date: 06/21/2024 15:51 At the request of: BRYAN BALDERRAMA Procedure: US OB cervical length EXAMINATION: US OB cervical length HISTORY: IUD IN PLACE DURING COMPARISON: Ultrasound OB transvaginal 05/30/2024 TECHNIQUE: Transabdominal and transvaginal sonographic examination for cervical length. FINDINGS: CERVIX LENGTH: 5.2 cm; closed. HEART RATE: 160 beats minute Age by EDC: 10 weeks 5 days EMMY by EDC: 01/12/2025 US/US OB cervical length IMPRESSION: 1. Single live intrauterine . 2 closed cervix 5.2 cm in length. 3. Persistent IUD anterior to the gestational sac within lower uterine cavity. Electronically authenticated by: STEFANY SCHWAB Date: 06/21/2024 15:51
--- OUTSIDE RECORDS SUMMARY | 2024-06-21 10:42 | XMS_ITS | CCD ---
Author Organization [facility] CliniSysc Care Team Providers Care Comic Book Writer Name Role Phone Yesica Khan Primary Care Provider ROCÍO GONZALEZ Referring Unavailable YESICA KHAN Primary Care Unavailable ROCÍO GONZALEZ Referring Unavailable YESICA KHAN Primary Care Unavailable DENISE TAYLOR Referring Unavailable [place] MELECIO, Audra Burns Attending U Alec Lomas MD Attending Charles garcia [place] GROC[employer] C[employer] SYSTEMS ARCHITECT, Audra Burns Attending U suleman NON STAFF Primary Care Provider Unavailnikolay e MD Santa Estrada II Attending Provider MD Maurizio Mast Attending Provider [phone] SANTA ESTRADA Referring Unavaila ble PCP, NOT IN SYSTEM Primary Care Unavailable NO FAMILY, PHYSICIAN Primary Care Provider Unava ilMD Santa Hoffman II Referring Provider [phone] BRYAN BALDERRAMA Referring Unavailable PCP, NOT IN SYSTEM Primary Care Unavailable LEXI ROBERTSON Attending Unavailable LEXI ROBERTSON Referring Unavailable PCP, NOT IN SYSTEM Primary Care Unavailable ALEC PATEL Admitting Unavailable ALEC PATEL Attending Unavailable Provider, None Primary Care Unavailable Peter Booth Attending Unavailable Provider, None Primary Care Unavailable Peter Booth Attending Unavailable Provider, None Primary Care Unavailable [place] M Admitting Unavailable [place] bond M Attending Unavailable Provider, None Primary Care Unavailable Maurizio Mast Attending Unavailable Juliano Peterson Unavailable Provider, None Primary Care Unavailable Maurizio Mast Admitting Unavailable [place], Audra M Admitting Unavailable [place] M Attending Unavailable Provider, None Primary Care Unavailable Provider, None Primary Care Unavailable [place], Audra M Admitting Unavailable [place] Audra M Attending Unavailable MD Santa Estrada II Attending Provider NON STAFF Primary Care Provider Unavailabl e NON STAFF Primary Care Unavailable Sean CURRIE, Santa Jensen Attending Unavailabl e Sean II, Santa Jensen Admitting Unavailabl e [place] II, Santa Jensen Admitting Unavailabl e NON STAFF Primary Care Unavailable Sean CURRIE, Santa Jensen Attending Unavailabl e [place] II, Santa Jensen Admitting Unavailabl e NON STAFF Primary Care Unavailable Sean CURRIE, Santa Jensen Attending Unavailabl e NON STAFF Primary Care Unavailable Sean CURRIE, Santa Jensen Attending Unavailabl e Sean CURRIE, Santa Jensen Admitting Unavailabl e Mast, Maurizio Jalloh-Johnson Admitting Unavailable MastMaurizio murrietaJohnson Attending Unavailable Sean CURRIE, Santa Jensen Admitting Unavailabl e NON STAFF Primary Care Unavailable eSan CURRIE, Santa Jensen Attending Unavailabl e NO [...] sources) Magnesium; Translations: [MAGNESIUM] Drug Allergy 2 [facility] NSAIDs (2 sources) Ibuprofen; Translations: [NSAIDS (NON-STEROIDAL ANTI-INFLAMMATOR Y DRUG)] Drug Allergy 2 [facility] Potassium (1 source) Potassium Drug Allergy 4 [facility] Potassium Chloride (1 source) Potassium Chloride; Translations: [POTASSIUM CHLORIDE] Drug Allergy 2 [facility] Rep[facility] (2 sources) Magnesium-Contai buddy Compounds Propensity to adverse reactions to drug 9 [place], [place] (12 sources) Ibuprofen; Translations: [ibuprofen] Drug Allergy 9 [place], [place] (1 source) Potassium-Contai buddy Compounds Propensity to adverse reactions to drug 0 [facility] [place], [place] (1 source) ALLERGIES NOT ON FILE; Translations: [ALLERGIES NOT ON FILE] Propensity to adverse reactions (disorder) [facility] Repository (13 sources) Magnesium; Translations: [MAGNESIUM] Drug Allergy 2 [facility] (11 sources) Potassium; Translations: [potassium] Drug Allergy 4 [facility] (7 sources) Contrast media Allergy to substance 4 [facility] (4 sources) NSAIDS (Non-Steroidal Anti-Inflamma Allergy to substance 4 [facility] (2 sources) Amoxicillin; Translations: [AMOXICILLIN] Drug Allergy 4 [facility] (1 source) NSAIDs; Translations: [NSAIDS (NON-STEROIDAL ANTI-INFLAMMATOR Y DRUG)] Propensity to adverse reactions to drug (disorder) 2 [facility] (2 sources) Potassium Chloride; Translations: [POTASSIUM CHLORIDE] Drug Allergy 2 [facility] (1 source) Ibuprofen Drug Allergy 4 [facility] Repository Medications Current Medications Medication Drug [...] daily 30 March 18, 2024 12:00am levonorgestrel 0.049567 mg/hr intrauterine system (2 sources) Progestin, Progestin-contain ing Intrauterine Device Levonorgestrel (LILETTA, 52 MG,) 19.5 MCG/DAY IUD by Intrauterine route 0 Active Multivitamin (Daily Multi-Vitamin) tablet (7 sources) Start: 04-15-2024 take 1 tablet by mouth once daily Multivitamin (Daily Multi-Vitamin) tablet Active 1 TAB PO Daily April 15, 2024 12:00am Lilly (No Known Home Meds) (4 sources) Start: 11-14-2019 Lilly (No Known Home Meds) Active November 14, [...] BED docusate sodium 50 mg / sennosides, long-term 8.6 mg oral tablet (4 sources) Start: [...] August 30, 2017 12:44pm polyethylene glycol 3350 45778 mg powder for oral solution (4 sources) [...] current use of drug therapy; Translations: [Other joint terminal attack controller (current) drug therapy] 03-12-2024 Episodic Other complications [...] te Episodic/Chronic Other aftercare (1 source) Other half-way (current) drug therapy; Translations: [Other half-way (current) drug therapy] Onset: 03-12-2024 Episodic Other [...] LT 3V - NOT FOR ER USE [facility] [address] [place] [address] XRay Report Signed Patient: Lucila Jacques MR#: [id number] [birth year] : 1990 Acct:[id number] Age/Sex: 33 / F ADM Date: 06/11/24 [place] [facility] [place]: Type: [facility] Attending Dr: Santa Estrada II, MD Copies [...] Vikki Rivers M.D.06/11/2024 2:26 PM Dictation Location: [place] [address] Transcribed By: [facility] 06/11/24 1426 Dictated By: Vikki Rivers MD 06/11/24 1422 Signed By: 06/11/24 1426 Normal [facility] US OB < 14 WEEKS [...] on 04-29-2024 Amphetamines Ql (U) Negative Negative [facility] Barbiturates [Presence] in U rine by Screen methodOrdered By: Yusef Curran on 04-29-2024 Barbiturates Screen Ql (U) Negative Negative [facility] Benzodiazepines Screen Ql (U )Ordered By: Yusef Curran on 04-29-2024 Benzodiazepines Ql (U) Negative Negative [facility] Benzoylecgonine [Presence] i n Urine by Screen methodOrdered By: Yusef Curran on 04-29-2024 Benzoylecgonine Screen Ql (U) Negative Negative [facility] Cannabinoids [Presence] in U rine by Screen methodOrdered By: Yusef Curran on 04-29-2024 Cannabinoids Screen Ql (U) Negative Negative [facility] Comment on above: These are unconfirme d results and should not be used for legal purposes. Drug Cut-Off Concentration: AMPH 1000 ng/mL SILVIA 200 ng/mL DARLYN 200 ng/mL COCM 300 ng/mL OP 300 ng/mL PCP 25 ng/mL THC 20 ng/mL Drug Screen,Urineon 04-29-20 24 Amphetamine Screen,Urine Negative Normal Negative [facility] Comment on above: Performed By: #### A 1C WTH eA, ALB, [id number], HGB #### [place] [address] [place] #### NICOTINE #### [facility] , Barbiturate Screen,Urine Negative Normal Negative [facility] Comment on above: Performed By: #### A 1C WTH eA, ALB, [id number], HGB #### [place] [address] [place] #### NICOTINE #### [facility] , Benzodiazepines Screen,Urine Negative Normal Negative [facility] Comment on above: Performed By: #### A 1C WTH eA, ALB, [id number], HGB #### [place] [address] [place] #### NICOTINE #### [facility] , Cannabinoid Screen,Urine Negative Normal Negative [facility] Comment on above: Result Comment: Thes e are unconfirmed results and should not be used for legal purposes. Drug Cut-Off Concentration: AMPH 1000 ng/mL SILVIA 200 ng/mL DARLYN 200 ng/mL COCM 300 ng/mL OP 300 ng/mL PCP 25 ng/mL THC 20 ng/mL PERFORMED BY: [place] [address] PATHOLOGIST ACCOUNTS RECEIVABLE COORDINATOR GENO BENEDICT M.D. Performed By: #### A 1C WTH eA, ALB, [id number], HGB #### [facility] [address] [place] [address] [place] #### NICOTINE #### [facility] , Cocaine Screen,Urine Negative Normal Negative [facility] Comment on above: Performed By: #### A 1C WTH eA, ALB, [id number], HGB #### [place] [address] [place] #### NICOTINE #### [facility] , Opiate Screen,Urine Negative Normal Negative [facility] Comment on above: Performed By: #### A 1C WTH eA, ALB, [id number], HGB #### [address] #### NICOTINE #### [facility] , Phencyclidine Screen,Urine Negative Normal Negative [facility] Comment on above: Performed By: #### A 1C WTH eA, ALB, [id number], HGB #### [address] #### NICOTINE #### [facility] , HCG ( test) IA.rapi d Ql (U)Ordered By: Yusef Curran on 04-29-2024 HCG ( test) Ql (U) Negative [facility] HCG,Urineon 04-29-2024 Beta HCG ( test) Ql (U) Negative Normal [facility] Comment on above: Result Comment: PERF ORMED BY: [place] [address] PATHOLOGIST ACCOUNTS RECEIVABLE COORDINATOR GENO BENEDICT M.D. Performed By: #### U HCG #### [place] [address] [place] Vaughn 04-29-2024 L Specimen: [id number] Received: 04/29/24 Status: SOUT Anupama Num: [id number] Spec Type: Surgical Subm Dr: Santa Estrada MD Tissues: A Joint/Knee (LT KNEE) Procedures: HE, Gross/Micro L4, Decalcification Age/ Patient Sex Location Account Attending Physician JacquesLucila Jayy 33/F [place] [id number] Santa Estrada MD SPEC NUM: [id number] RECD: 04/29/24 STATUS: MICHAEL YOUNG NUM: [id number] NIELS: 04/29/[address]: Santa Estrada MD ENTERED: 04/29/[address] [facility] DR: SPEC TYPE: Surgical DEPT: S ORDERED: [...] examination, no sections are submitted. CPT Codes 53170 Specimen: [id number] Received: 04/29/24 Status: ANUPAMABrunilda Young Num: [id number] Spec Type: Surgical Subm Dr: Santa Estrada MD Tissues: A Joint/Knee (LT KNEE) Procedures: HE, Gross/Micro L4, Decalcification Patient: JacquesLucila [id number] (Continued) Specimen: [id number] Received: 04/29/24 (Continued) Signed (signature on file) Jamia Trevizo MD 05/07/24 1703 Specimen: [id number] Received: 04/29/24 Status: MICHAEL Young Num: [id number] Spec Type: Surgical Subm Dr: Santa Estrada MD Tissues: A Joint/Knee (LT KNEE) Procedures: VIKASH, Gross/Nithya L4, Decalcification Patient: Lucila Jacques [id number] (Continued) Specimen: [id number] Received: 04/29/24 (Continued) BONE AND TISSUE Specimen: [id number] Received: 04/29/24 Status: MICHAEL Anupama Num: [id number] Spec Type: Surgical Subm Dr: Santa Estrada MD Tissues: A Joint/Knee (LT KNEE) Procedures: Gonsalo SUH/Nithya L4, Decalcification Patient: Lucila Jacques [id number] (Continued) Signed (signature on file) Jamia Trevizo MD 05/07/24 1703 Normal [facility] Opiates [Presence] in Urine by Screen methodOrdered By: Yusef Curran on 04-29-2024 Opiates Screen Ql (U) Negative Negative [facility] Phencyclidine Screen Ql (U)O rdered By: Yusef Curran on 04-29-2024 Phencyclidine Ql (U) Negative Negative [facility] XR knee LT 2Von 04-29-2024 XR knee LT 2V [facility] [place] [address] XRay Report Signed Patient: Lucila Jacques MR#: [id number] [birth year] : 1990 Acct:[id number] Age/Sex: 33 / F ADM Date: 04/29/24 Loc: [place] Room: Type: [facility] Attending Dr: Santa Estrada II, MD [...] Harmeet Lopez M.D.04/29/2024 2:44 PM Dictation Location: [place] [address] Transcribed By: [facility] 04/29/24 1444 Dictated By: Harmeet Lopez DO 04/29/24 144 Signed By: 04/29/24 1444 Normal [facility] XR tibia fibula LT 2V*on XR tibia fibula LT 2V* [facility] [address] [place] [address] XRay Report Signed Patient: Lucila Jacques MR#: [id number] [birth year] : 1990 Acct:[id number] Age/Sex: 33 / F ADM Date: 04/19/24 [place] [facility] [place]: Type: [facility] Attending Dr: Santa Estrada II, MD Copies to: Santa Estrada MD Ordering Provider: Santa Estrada MD Date of Service: 04/19/24 XR/XR tibia fibula LT 2V*: 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 [facility] Comment on above: Performed By: #### B MP, CBC #### [place] [address] [place] #### NICOTINE, FRUC #### [facility] , Automated basophil countOrde red By: Santa Estrada on 04-15-2024 Basophils (Bld) [#/Vol] 0.0 10*3/uL Normal 0.0-0.2 [facility] Comment on above: Result Comment: PERF ORMED BY: [place] [address] PATHOLOGIST ACCOUNTS RECEIVABLE COORDINATOR GENO BENEDICT M.D. Performed By: #### B MP, CBC #### [facility] [address] [place] [address] [place] #### NICOTINE, FRUC #### [facility] , Automated blood monocyte cou ntOrdered By: Santa Estrada on 04-15-2024 Monocytes (Bld) [#/Vol] 0.3 10*3/uL Normal 0.0-0.8 [facility] Comment on above: Performed By: #### B MP, CBC #### [place] [address] [place] #### NICOTINE, FRUC #### [facility] , Automated eosinophil %Ordere d By: Santa Estrada on 04-15-2024 Eosinophils/100 WBC (Bld) 3.0 % Normal . [facility] Comment on above: Performed By: #### B MP, CBC #### [place] [address] [place] #### NICOTINE, FRUC #### [facility] , Automated eosinophil countOr dered By: Santa Estrada on 04-15-2024 Eosinophils (Bld) [#/Vol] 0.1 10*3/uL Normal 0.0-0.45 [facility] Comment on above: Performed By: #### B MP, CBC #### [facility] [address] [place] [address] [place] #### NICOTINE, FRUC #### [facility] , Automated monocyte %Ordered By: Santa Estrada on 04-15-2024 Monocytes/100 WBC (Bld) 7.6 % Normal . [facility] Comment on above: Performed By: #### B MP, CBC #### [place] [address] [place] #### NICOTINE, FRUC #### [facility] , Automated neutrophil %Ordere d By: Santa Estrada on 04-15-2024 Neutrophils/100 WBC (Bld) 55.1 % Normal . [facility] Comment on above: Performed By: #### B MP, CBC #### [place] [address] [place] #### NICOTINE, FRUC #### [facility] , Basic Metabolic Panelon 03-26 GFR/1.73 sq M.predicted MDRD (S/P/Bld) [Vol rate/Area] mL/min/{1.73_m2} Normal [facility] Comment on above: Performed By: #### A 1C WTH eA, ALB, [id number], HGB #### [place] [address] [place] #### NICOTINE #### [facility] , Bilirubin Test strip Ql (U)O rdered By: Santa Estrada on 04-15-2024 Bilirubin Ql (U) Negative Negative [facility] Calcium [Mass/volume] in Ser um or PlasmaOrdered By: Santa Estrada on 04-15-2024 Calcium [Mass/Vol] 9.0 mg/dL Normal 8.6-10.3 [facility] Comment on above: Result Comment: PERF ORMED BY: [place] [address] PATHOLOGIST ACCOUNTS RECEIVABLE COORDINATOR GENO BENEDICT M.D. Performed By: #### A 1C WTH eA, ALB, [id number], HGB #### [place] [address] [place] #### NICOTINE #### [facility] , Carbon dioxide, total [Moles /volume] in Serum or PlasmaOrdered By: Santa Estrada on 04-15-2024 CO2 [Moles/Vol] 26.3 mmol/L Normal 21.0-31.0 [facility] Comment on above: Performed By: #### A 1C WTH eA, ALB, [id number], HGB #### [address] #### NICOTINE #### [facility] , Chloride [Moles/volume] in S liam or PlasmaOrdered By: Santa Estrada on 04-15-2024 Chloride [Moles/Vol] 106 mmol/L Normal 98-107 [facility] Comment on above: Performed By: #### A 1C WTH eA, ALB, [id number], HGB #### [address] #### NICOTINE #### [facility] , Color of Urine by AutoOrdere d By: Santa Estrada on 04-15-2024 Color (U) Yellow Normal Yellow [facility] Comment on above: Order Comment: Name Collection Type:: Clean-Voided Midstream Performed By: #### U A #### [address] Complete Blood Count Auto Di ffon 04-15-2024 Mean Corpuscular HGB Conc 34.0 g/dL Normal 32.0-35.0 [facility] Comment on above: Performed By: #### B MP, CBC #### [address] #### NICOTINE, FRUC #### [facility] , NRBC% 0.1 /100{WBC} Normal 0-0.5 [facility] Comment on above: Performed By: #### B MP, CBC #### [place] [address] [place] #### NICOTINE, FRUC #### [facility] , Cotinine [Mass/volume] in Se rum or PlasmaOrdered By: Santa Estrada on 04-15-2024 Cotinine [Mass/Vol] <1.0 ng/mL . [facility] Comment on above: This test was develo ped and its performance characteristicsdetermined by [facility]. It has not been cleared orapproved by the Food and Drug Administration.Cotinine levels greater than 20.0 are consistent with theuse of tobacco or tobacco cessation products.Performed at: [facility] [address] [id number] Director: Marcellus Dave MD, Phone: [phone] Creatinine [Mass/volume] in Serum or PlasmaOrdered By: Santa Estrada on 04-15-2024 Creatinine [Mass/Vol] 0.65 mg/dL Normal 0.60-1.20 [facility] Comment on above: Performed By: #### A 1C WTH eA, ALB, [id number], HGB #### [facility] [address] [place] [address] #### NICOTINE #### [facility] , Erythrocyte distribution wid th [Ratio] by Automated countOrdered By: Santa Estrada on 04-15-2024 Erythrocyte distribution width (RBC) [Ratio] 13.2 % Normal 11.9-15.3 [facility] Comment on above: Performed By: #### B MP, CBC #### [facility] [address] [place] [address] #### NICOTINE, FRUC #### [facility] , Erythrocytes [#/volume] in B lood by Automated countOrdered By: Santa Estrada on 04-15-2024 RBC (Bld) [#/Vol] 4.52 10*6/uL Normal 3.60-5.00 [facility] Comment on above: Performed By: #### B MP, CBC #### [place] [address] [place] #### NICOTINE, FRUC #### [facility] , Fructosamineon 04-15-2024 Fructosamine 219 umol/L Normal 0-285 [facility] Comment on above: Result Comment: Publ ished reference interval for apparently healthy subjects between age 20 and 60 is 205 - 285 umol/L and in a poorly controlled diabetic population is 228 - 563 umol/L with a mean of 396 umol/L. Performed at: [facility] [address] [place], [place] [id number] Assembly Member: Dario West PhD, Phone: [phone] Performed By: #### A 1C WTH eA, ALB, [id number], HGB #### [place] [address] [place] #### NICOTINE #### [facility] , Fructosamine [Moles/volume] in Serum or PlasmaOrdered By: Santa Estrada on 04-15-2024 Fructosamine [Moles/Vol] 219 umol/L 0-285 [facility] Comment on above: Published reference interval for apparently healthysubjects between age 20 and 60 is 205 - 285 umol/L and in apoorly controlled diabetic population is 228 - 563 umol/Lwith a mean of 396 umol/L.Performed at: [facility] [address] [id number] Director: Dario West PhD, Phone: [phone] Glucose [Mass/volume] in Ser um or PlasmaOrdered By: Santa Estrada on 04-15-2024 Glucose [Mass/Vol] 88 mg/dL Normal 70-100 [facility] Comment on above: ADA recommended refe rence rangeRandom Glucose Reference Range is dependent on time and content of last meal. Glucose of more than 200 mg/dL in a nonstressed, ambulatory subject supports the diagnosis of Diabetes Mellitus. Result Comment: Mcdonough om Glucose Reference Range is dependent on time and content of last meal. Glucose of more than 200 mg/dL in a nonstressed, ambulatory subject supports the diagnosis of Diabetes Mellitus. ADA recommended reference range Performed By: #### A 1C WTH eA, ALB, [id number], HGB #### [place] [address] [place] #### NICOTINE #### [facility] , Hematocrit [Volume Fraction] of Blood by Automated countOrdered By: Santa Estrada on 04-15-2024 Hematocrit (Bld) [Volume fraction] 40.4 % Normal 34.0-46.4 [facility] Comment on above: Performed By: #### B MP, CBC #### [facility] [address] [place] [address] [place] #### NICOTINE, FRUC #### [facility] , Hemoglobin [Mass/volume] in BloodOrdered By: Santa Estrada on 04-15-2024 Hemoglobin (Bld) [Mass/Vol] 13.7 g/dL Normal 11.8-15.4 [facility] Comment on above: Performed By: #### B MP, CBC #### [place] [address] [place] #### NICOTINE, FRUC #### [facility] , Ketones Auto test strip (U) [Mass/Vol]Ordered By: Santa Estrada on 04-15-2024 Ketones (U) [Mass/Vol] Negative Negative [facility] Leukocytes [#/volume] correc perla for nucleated erythrocytes in Blood by Automated counOrdered By: Santa Estrada on 04-15-2024 WBC corrected for nucl RBC Auto (Bld) [#/Vol] 4.1 10*3/uL 3.8-11.6 [facility] Leukocytes [#/volume] in Blo od by Automated countOrdered By: Santa Estrada on 04-15-2024 WBC (Bld) [#/Vol] 4.1 10*3/uL Normal 3.8-11.6 [facility] Comment on above: Performed By: #### B MP, CBC #### [facility] [address] [place] [address] [place] #### NICOTINE, FRUC #### [facility] , Lymphocytes [#/volume] in Bl ood by Automated countOrdered By: Santa Estrada on 04-15-2024 Lymphocytes (Bld) [#/Vol] 1.4 10*3/uL Normal 1.00-4.8 [facility] Comment on above: Performed By: #### B MP, CBC #### [place] [address] [place] #### NICOTINE, FRUC #### [facility] , Lymphocytes/100 leukocytes i n Blood by Automated countOrdered By: Santa Estrada on 04-15-2024 Lymphocytes/100 WBC (Bld) 33.6 % Normal . [facility] Comment on above: Performed By: #### B MP, CBC #### [facility] [address] [place] [address] [place] #### NICOTINE, FRUC #### [facility] , MCH [Entitic mass] by Automa perla countOrdered By: Santa Estrada on 04-15-2024 MCH (RBC) [Entitic mass] 30.4 pg Normal 24.7-34.3 [facility] Comment on above: Performed By: #### B MP, CBC #### [place] [address] [place] #### NICOTINE, FRUC #### [facility] , MCHC Auto (RBC) [Mass/Vol]Or dered By: Santa Estrada on 04-15-2024 MCHC (RBC) [Mass/Vol] 34.0 g/dL 32.0-35.0 [facility] MCV [Entitic volume] by Auto mated countOrdered By: Santa Estrada on 04-15-2024 MCV (RBC) [Entitic vol] 89.4 fL Normal 80-100 [facility] Comment on above: Performed By: #### B MP, CBC #### [place] [address] [place] #### NICOTINE, FRUC #### [facility] , Neutrophils [#/volume] in Bl ood by Automated countOrdered By: Santa Estrada on 04-15-2024 Neutrophils (Bld) [#/Vol] 2.2 10*3/uL Normal 1.8-7.7 [facility] Comment on above: Performed By: #### B MP, CBC #### [place] [address] [place] #### NICOTINE, FRUC #### [facility] , Nicotine [Mass/volume] in Se rum or PlasmaOrdered By: Santa Estrada on 04-15-2024 Nicotine [Mass/Vol] <1.0 ng/mL . [facility] Comment on above: This test was develo ped and its performance characteristicsdetermined by [facility]. It has not been cleared orapproved by the Food and Drug Administration.Nicotine levels greater than 2.0 are consistent with theuse of tobacco or tobacco cessation products. Nicotine/Cotinine Bloodon Cotinine, Blood <1.0 Normal . [facility] Comment on above: Result Comment: This test was developed and its performance characteristics determined by [facility]. It has not been cleared or approved by the Food and Drug Administration. Cotinine levels greater than 20.0 are consistent with the use of tobacco or tobacco cessation products. Performed at: [address] [id number] Assembly Member: Marcellus Dave MD, Phone: [phone] PERFORMED BY: [address] [place] [address] PATHOLOGIST ACCOUNTS RECEIVABLE COORDINATOR GENO BENEDICT M.D. Performed By: #### A 1C WTH eA, ALB, [id number], HGB #### [place] [address] [place] #### NICOTINE #### [facility] , Nicotine, Blood <1.0 Normal . [facility] Comment on above: Result Comment: This test was developed and its performance characteristics determined by [facility]. It has not been cleared or approved by the Food and Drug Administration. Nicotine levels greater than 2.0 are consistent with the use of tobacco or tobacco cessation products. Performed By: #### A 1C WTH eA, ALB, [id number], HGB #### [place] [address] [place] #### NICOTINE #### [facility] , Nitrite Test strip Ql (U)Ord ered By: Santa Estrada on 04-15-2024 Nitrite Ql (U) Negative Negative [facility] No Panel InformationOrdered By: Santa Estrada on 04-15-2024 Estimated GFR (CKD-EPI) > 60.0 mL/Min [facility] Creatinine Clearance (Chem N/A [facility] Nucleated erythrocytes [Pres ence] in Blood by Automated countOrdered By: Santa Estrada on 04-15-2024 Nucleated RBC Auto Ql (Bld) 0.1 /100{WBC} 0-0.5 [facility] PST Type and Screenon 2023 ABO and Rh group Nom (Bld) Blood group O Rh(D) positive Normal [facility] Comment on above: Order Comment: Date of Surgery: [id number] Result Comment: PERF ORMED BY: [place] [address] PATHOLOGIST ACCOUNTS RECEIVABLE COORDINATOR GENO BENEDICT M.D. Platelet mean volume [Entiti c volume] in Blood by Automated countOrdered By: Santa Estrada on 04-15-2024 Platelet mean volume (Bld) [Entitic vol] 7.3 fL Normal 6.3-10.7 [facility] Comment on above: Performed By: #### B MP, CBC #### [facility] [address] [place] [address] #### NICOTINE, FRUC #### [facility] , Platelets [#/volume] in Bloo d by Automated countOrdered By: Santa Estrada on 04-15-2024 Platelets (Bld) [#/Vol] 230 10*3/uL Normal 150-450 [facility] Comment on above: Performed By: #### B MP, CBC #### [facility] [address] [place] [address] [place] #### NICOTINE, FRUC #### [facility] , Potassium [Moles/volume] in Serum or PlasmaOrdered By: Santa Estrada on 04-15-2024 Potassium [Moles/Vol] 4.0 mmol/L Normal 3.5-5.1 [facility] Comment on above: Performed By: #### A 1C [facility] eA, ALB, [id number], HGB #### [place] [address] [place] #### NICOTINE #### [facility] , Protein Auto test strip (U) [Mass/Vol]Ordered By: Santa Estrada on 04-15-2024 Protein (U) [Mass/Vol] Negative Negative [facility] Serum or plasma anion gap de terminationOrdered By: Santa Estrada on 04-15-2024 Anion gap [Moles/Vol] 6.7 mmol/L Normal 6.0-15.0 [facility] Comment on above: Performed By: #### A 1C [facility] eA, ALB, [id number], HGB #### [address] #### NICOTINE #### [facility] , Sodium [Moles/volume] in Ser um or PlasmaOrdered By: Santa Estrada on 04-15-2024 Sodium [Moles/Vol] 135 mmol/L Low 136-145 [facility] Comment on above: Performed By: #### A 1C [facility] eA, ALB, [id number], HGB #### [address] #### NICOTINE #### [facility] , Specific gravity Auto test s trip (U) [Rel density]Ordered By: Santa Estrada on 04-15-2024 Specific gravity (U) [Rel density] 1.009 1.001-1.03 0 [facility] Urea nitrogen [Mass/volume] in Serum or PlasmaOrdered By: Santa Estrada on 04-15-2024 Urea nitrogen [Mass/Vol] 10 mg/dL Normal 7-25 [facility] Comment on above: Performed By: #### A 1C WT eA, ALB, [id number], HGB #### [place] [address] [place] #### NICOTINE #### [facility] , Urinalysison 04-15-2024 Appearance (U) Clear Normal Clear [facility] Comment on above: Order Comment: Name Collection Type:: Clean-Voided Midstream Performed By: #### U A #### [address] Bilirubin,Urine Negative Normal Negative [facility] Comment on above: Order Comment: Name Collection Type:: Clean-Voided Midstream Performed By: #### U A #### [address] Glucose Ql (U) Normal Normal Normal [facility] Comment on above: Order Comment: Name Collection Type:: Clean-Voided Midstream Performed By: #### U A #### [address] Ketones Ql (U) Negative Normal Negative [facility] Comment on above: Order Comment: Name Collection Type:: Clean-Voided Midstream Performed By: #### U A #### [address] Leukocyte esterase Test strip Ql (U) Negative Normal Negative [facility] Comment on above: Order Comment: Name Collection Type:: Clean-Voided Midstream Performed By: #### U A #### [address] Nitrite,Urine Negative Normal Negative [facility] Comment on above: Order Comment: Name Collection Type:: Clean-Voided Midstream Performed By: #### U A #### [place] [address] [place] Occult Blood,Urine Negative Normal Negative [facility] Comment on above: Order Comment: Name Collection Type:: Clean-Voided Midstream Result Comment: PERF ORMED BY: [place] [address] PATHOLOGIST ACCOUNTS RECEIVABLE COORDINATOR GENO BENEDICT M.D. Performed By: #### U A #### [address] Protein,Urine Negative Normal Negative [facility] Comment on above: Order Comment: Name Collection Type:: Clean-Voided Midstream Performed By: #### U A #### [facility] [address] Specificy [place],Urine 1.009 Normal 1.001-1.03 0 [facility] Comment on above: Order Comment: Name Collection Type:: Clean-Voided Midstream Performed By: #### U A #### [facility] [address] Urobilinogen,Urine Normal Normal Normal [facility] Comment on above: Order Comment: Name Collection Type:: Clean-Voided Midstream Performed By: #### U A #### [facility] [address] Urine clarity by refractomet ry automatedOrdered By: Santa Estrada on 04-15-2024 Clarity Refractometry automated (U) Clear Clear [facility] Urine glucose measurement by automated test strip (mass/volume)Ordered By: Santa Estrada on 04-15-2024 Glucose Auto test strip (U) [Mass/Vol] Normal mg/dL Normal [facility] Urine hemoglobin detection b y automated test stripOrdered By: Santa Estrada on 04-15-2024 Hemoglobin Auto test strip Ql (U) Negative Negative [facility] Urine leukocyte esterase det ection by automated test stripOrdered By: Santa Estrada on 04-15-2024 Leukocyte esterase Auto test strip Ql (U) Negative Negative [facility] Urine pH measurement by auto mated test stripOrdered By: Santa Estrada on 04-15-2024 pH (U) 8.0 [pH] Normal 5.0-9.0 [facility] Comment on above: Order Comment: Name Collection Type:: Clean-Voided Midstream Performed By: #### U A #### [facility] [address] [place] [address] Urobilinogen Auto test strip (U) [Mass/Vol]Ordered By: Santa Estrada on 04-15-2024 Urobilinogen (U) [Mass/Vol] Normal mg/dL Normal [facility] CBC with Diffon 03-14-2024 Abs. Basophil 0.06 k/uL Normal 0.00-0.20 [facility] Comment on above: Performed By: #### C DP, VD25, FEBC, AHCV, GLYHGB, HIVCMB, TSHX, FERI, LIPRF, B12, CP #### [place] [address] Assembly Member: Isreal Astorga MD Abs.Imm.Granulocyte <0.03 Normal 0.00-0.30 [facility] Comment on above: Performed By: #### C DP, VD25, FEBC, AHCV, GLYHGB, HIVCMB, TSHX, FERI, LIPRF, B12, CP #### [place] [address] Assembly Member: Isreal Astorga MD Abs.Neutrophil (Seg) 2.66 k/uL Normal 1.50-8.10 [facility] Comment on above: Performed By: #### C DP, VD25, FEBC, AHCV, GLYHGB, HIVCMB, TSHX, FERI, LIPRF, B12, CP #### [place] [address] Assembly Member: Isreal Astorga MD Basophils/100 WBC (Bld) 1 % Normal 0-2 [facility] Comment on above: Performed By: #### C DP, VD25, FEBC, AHCV, GLYHGB, HIVCMB, TSHX, FERI, LIPRF, B12, CP #### [place] [address] Assembly Member: Isreal Astorga MD Eosinophils (Bld) [#/Vol] 0.28 10*3/uL Normal 0.00-0.44 [facility] Comment on above: Performed By: #### C DP, VD25, FEBC, AHCV, GLYHGB, HIVCMB, TSHX, FERI, LIPRF, B12, CP #### [place] [address] Assembly Member: Isreal Astorga MD Eosinophils/100 WBC (Bld) 5 % High 1-4 [facility] Comment on above: Performed By: #### C DP, VD25, FEBC, AHCV, GLYHGB, HIVCMB, TSHX, FERI, LIPRF, B12, CP #### [address] [phone] Assembly Member: Isreal Astorga MD Erythrocyte distribution width (RBC) [Ratio] 12.6 % Normal 11.8-14.4 [facility] Comment on above: Performed By: #### C DP, VD25, FEBC, AHCV, GLYHGB, HIVCMB, TSHX, FERI, LIPRF, B12, CP #### [place] [id number] Assembly Member: Isreal Astorga MD Hematocrit (Bld) [Volume fraction] 38.8 % Normal 36.3-47.1 [facility] Comment on above: Performed By: #### C DP, VD25, FEBC, AHCV, GLYHGB, HIVCMB, TSHX, FERI, LIPRF, B12, CP #### [place] [id number] Assembly Member: Isreal Astorga MD Hemoglobin (Bld) [Mass/Vol] 12.9 g/dL Normal 11.9-15.1 [facility] Comment on above: Performed By: #### C DP, VD25, FEBC, AHCV, GLYHGB, HIVCMB, TSHX, FERI, LIPRF, B12, CP #### [place] [address] Assembly Member: Isreal Astorga MD Immature granulocytes/100 WBC (Bld) 0 % Normal 0 [facility] Comment on above: Performed By: #### C DP, VD25, FEBC, AHCV, GLYHGB, HIVCMB, TSHX, FERI, LIPRF, B12, CP #### [address] [id number] Assembly Member: Isreal Astorga MD Lymphocytes (Bld) [#/Vol] 1.69 10*3/uL Normal 1.10-3.70 [facility] Comment on above: Performed By: #### C DP, VD25, FEBC, AHCV, GLYHGB, HIVCMB, TSHX, FERI, LIPRF, B12, CP #### [address] [id number] Assembly Member: Isreal Astorga MD Lymphocytes/100 WBC (Bld) 33 % Normal 24-43 [facility] Comment on above: Performed By: #### C DP, VD25, FEBC, AHCV, GLYHGB, HIVCMB, TSHX, FERI, LIPRF, B12, CP #### [address] [id number] Assembly Member: Isreal Astorga MD MCH (RBC) [Entitic mass] 29.9 pg Normal 25.2-33.5 [facility] Comment on above: Performed By: #### C DP, VD25, FEBC, AHCV, GLYHGB, HIVCMB, TSHX, FERI, LIPRF, B12, CP #### [address] [phone] Assembly Member: Isreal Astorga MD MCHC (RBC) [Mass/Vol] 33.2 g/dL Normal 28.4-34.8 [facility] Comment on above: Performed By: #### C DP, VD25, FEBC, AHCV, GLYHGB, HIVCMB, TSHX, FERI, LIPRF, B12, CP #### [address] [phone] Assembly Member: Isreal Astorga MD MCV (RBC) [Entitic vol] 89.8 fL Normal 82.6-102.9 [facility] Comment on above: Performed By: #### C DP, VD25, FEBC, AHCV, GLYHGB, HIVCMB, TSHX, FERI, LIPRF, B12, CP #### [address] [id number] Assembly Member: Isreal Astorga MD Monocytes (Bld) [#/Vol] 0.47 10*3/uL Normal 0.10-1.20 [facility] Comment on above: Performed By: #### C DP, VD25, FEBC, AHCV, GLYHGB, HIVCMB, TSHX, FERI, LIPRF, B12, CP #### [address] [phone] Assembly Member: Isreal Astorga MD Monocytes/100 WBC (Bld) 9 % Normal 3-12 [facility] Comment on above: Performed By: #### C DP, VD25, FEBC, AHCV, GLYHGB, HIVCMB, TSHX, FERI, LIPRF, B12, CP #### [address] [phone] Assembly Member: Isreal Astorga MD Neutrophil (Seg) 52 % Normal 36-65 [facility] Comment on above: Performed By: #### C DP, VD25, FEBC, AHCV, GLYHGB, HIVCMB, TSHX, FERI, LIPRF, B12, CP #### [address] [id number] Assembly Member: Isreal Astorga MD NRBC Automated 0.0 per 100 WBC Normal 0.0 [facility] Comment on above: Performed By: #### C DP, VD25, FEBC, AHCV, GLYHGB, HIVCMB, TSHX, FERI, LIPRF, B12, CP #### [address] [phone] Assembly Member: Isreal Astorga MD Platelet mean volume (Bld) [Entitic vol] 9.7 fL Normal 8.1-13.5 [facility] Comment on above: Performed By: #### C DP, VD25, FEBC, AHCV, GLYHGB, HIVCMB, TSHX, FERI, LIPRF, B12, CP #### [address] [id number] Assembly Member: Isreal Astorga MD Platelets (Bld) [#/Vol] 256 10*3/uL Normal 138-453 [facility] Comment on above: Performed By: #### C DP, VD25, FEBC, AHCV, GLYHGB, HIVCMB, TSHX, FERI, LIPRF, B12, CP #### [place] [id number] Assembly Member: Isreal Astorga MD RBC (Bld) [#/Vol] 4.32 10*6/uL Normal 3.95-5.11 [facility] Comment on above: Performed By: #### C DP, VD25, FEBC, AHCV, GLYHGB, HIVCMB, TSHX, FERI, LIPRF, B12, CP #### [place] [address] Assembly Member: Isreal Astorga MD WBC (Bld) [#/Vol] 5.2 10*3/uL Normal 3.5-11.3 [facility] Comment on above: Performed By: #### C DP, VD25, FEBC, AHCV, GLYHGB, HIVCMB, TSHX, FERI, LIPRF, B12, CP #### [place] [address] Assembly Member: Isreal Astorga MD Comp Metabolic Profon 2023 Albumin [Mass/Vol] 4.2 g/dL Normal 3.5-5.2 [facility] Comment on above: Performed By: #### C DP, VD25, FEBC, AHCV, GLYHGB, HIVCMB, TSHX, FERI, LIPRF, B12, CP #### [address] [id number] Assembly Member: Isreal Astorga MD Albumin/Glob Ratio 2.0 Normal 1.0-2.5 [facility] Comment on above: Performed By: #### C DP, VD25, FEBC, AHCV, GLYHGB, HIVCMB, TSHX, FERI, LIPRF, B12, CP #### [address] [id number] Assembly Member: sIreal Astorga MD Alkaline Phos 72 U/L Normal 35-104 [facility] Comment on above: Performed By: #### C DP, VD25, FEBC, AHCV, GLYHGB, HIVCMB, TSHX, FERI, LIPRF, B12, CP #### [place] [address] Assembly Member: Isreal Astorga MD ALT [Catalytic activity/Vol] 21 U/L Normal 10-35 [facility] Comment on above: Performed By: #### C DP, VD25, FEBC, AHCV, GLYHGB, HIVCMB, TSHX, FERI, LIPRF, B12, CP #### [address] [phone] Assembly Member: Isreal Astorga MD Anion gap [Moles/Vol] 8 mmol/L Low 9-16 [facility] Comment on above: Performed By: #### C DP, VD25, FEBC, AHCV, GLYHGB, HIVCMB, TSHX, FERI, LIPRF, B12, CP #### [address] [phone] Assembly Member: Isreal Astorga MD AST [Catalytic activity/Vol] 23 U/L Normal 10-35 [facility] Comment on above: Performed By: #### C DP, VD25, FEBC, AHCV, GLYHGB, HIVCMB, TSHX, FERI, LIPRF, B12, CP #### [address] [id number] Assembly Member: Isreal Astorga MD Bilirubin [Mass/Vol] 0.4 mg/dL Normal 0.00-1.20 [facility] Comment on above: Performed By: #### C DP, VD25, FEBC, AHCV, GLYHGB, HIVCMB, TSHX, FERI, LIPRF, B12, CP #### [address] [id number] Assembly Member: Isreal Astorga MD Calcium [Mass/Vol] 8.8 mg/dL Normal 8.6-10.4 [facility] Comment on above: Performed By: #### C DP, VD25, FEBC, AHCV, GLYHGB, HIVCMB, TSHX, FERI, LIPRF, B12, CP #### [address] [phone] Assembly Member: Isreal Astorga MD Chloride [Moles/Vol] 106 mmol/L Normal 98-107 [facility] Comment on above: Performed By: #### C DP, VD25, FEBC, AHCV, GLYHGB, HIVCMB, TSHX, FERI, LIPRF, B12, CP #### [address] [id number] Assembly Member: Isreal Astorga MD CO2 [Moles/Vol] 25 mmol/L Normal 20-31 [facility] Comment on above: Performed By: #### C DP, VD25, FEBC, AHCV, GLYHGB, HIVCMB, TSHX, FERI, LIPRF, B12, CP #### [address] [id number] Assembly Member: Isreal Astorga MD Creatinine [Mass/Vol] 0.7 mg/dL Normal 0.50-0.90 [facility] Comment on above: Performed By: #### C DP, VD25, FEBC, AHCV, GLYHGB, HIVCMB, TSHX, FERI, LIPRF, B12, CP #### [address] [phone] Assembly Member: Isreal Astorga MD GFR/1.73 sq M.predicted among non-blacks MDRD (S/P/Bld) [Vol rate/Area] mL/min/{1.73_m2} Normal >60 [facility] Comment on above: Result Comment: These [...] HIVCMB, TSHX, FERI, LIPRF, B12, CP #### [address] [id number] Assembly Member: Isreal Astorga MD Glucose [Mass/Vol] 94 mg/dL Normal 74-99 [facility] Comment on above: Performed By: #### C DP, VD25, FEBC, AHCV, GLYHGB, HIVCMB, TSHX, FERI, LIPRF, B12, CP #### [facility] [employer] [address] [place] [phone] Assembly Member: Isreal Astorga MD Potassium [Moles/Vol] 3.8 mmol/L Normal 3.7-5.3 [facility] Comment on above: Performed By: #### C DP, VD25, FEBC, AHCV, GLYHGB, HIVCMB, TSHX, FERI, LIPRF, B12, CP #### [address] [id number] Assembly Member: Isreal Astorga MD Protein [Mass/Vol] 6.7 g/dL Normal 6.6-8.7 [facility] Comment on above: Performed By: #### C DP, VD25, FEBC, AHCV, GLYHGB, HIVCMB, TSHX, FERI, LIPRF, B12, CP #### [address] [phone] Assembly Member: Isreal Astorga MD Sodium [Moles/Vol] 139 mmol/L Normal 136-145 [facility] Comment on above: Performed By: #### C DP, VD25, FEBC, AHCV, GLYHGB, HIVCMB, TSHX, FERI, LIPRF, B12, CP #### [address] [id number] Assembly Member: Isreal Astorga MD Urea nitrogen [Mass/Vol] 12 mg/dL Normal 6-20 [facility] Comment on above: Performed By: #### C DP, VD25, FEBC, AHCV, GLYHGB, HIVCMB, TSHX, FERI, LIPRF, B12, CP #### [address] [phone] Assembly Member: Isreal Astorga MD Ferritinon 5 Ferritin [Mass/Vol] 133 ng/mL Normal 13-150 [facility] Comment on above: Result Comment: FERRITIN Reference Ranges: Adult Males 20 - 60 years: 30 - 400 ng/mL Adult females 17 - 60 years: 13 - 150 ng/mL Adults greater than 60 years: no established reference range Pediatrics: no established reference range Performed By: #### C DP, VD25, FEBC, AHCV, GLYHGB, HIVCMB, TSHX, FERI, LIPRF, B12, CP #### [address] [id number] Assembly Member: Isreal Astorga MD HIV Ag/Abon 03-14-2024 HIV Ag/Ab Non-Reactive Normal NR [facility] Comment on above: Result Comment: No l aboratory evidence of HIV infection. If acute HIV infection is suspected, consider testing for HIV-1 RNA. Performed By: #### C DP, VD25, FEBC, AHCV, GLYHGB, HIVCMB, TSHX, FERI, LIPRF, B12, CP #### [address] [phone] Assembly Member: Isreal Astorga MD Hemoglobin A1Con 03-14-2024 Glucose [Mass/Vol] 94 mg/dL Normal [facility] Comment on above: Result Comment: The ADA and AACC recommend providing the estimated average glucose result to permit better patient understanding of their HBA1c result. Performed By: #### C DP, VD25, FEBC, AHCV, GLYHGB, HIVCMB, TSHX, FERI, LIPRF, B12, CP #### [address] [phone] Assembly Member: Isreal Astorga MD HbA1c (Bld) [Mass fraction] 4.9 % Normal 4.0-6.0 [facility] Comment on above: Performed By: #### C DP, VD25, FEBC, AHCV, GLYHGB, HIVCMB, TSHX, FERI, LIPRF, B12, CP #### [address] [phone] Assembly Member: Isreal Astorga MD Hep C Abon 03-14-2024 Hep C Ab Non-Reactive Normal NR [facility] Comment on above: Result Comment: The [...] [facility] [address] [place], [place] [phone] Assembly Member: Isreal Atsorga MD Iron Binding Cap.on 03-14-20 24 % Fe Saturation 44 % Normal 20-55 [facility] Comment on above: Performed By: #### C DP, VD25, FEBC, AHCV, GLYHGB, HIVCMB, TSHX, FERI, LIPRF, B12, CP #### [address] [id number] Assembly Member: Isreal Astorga MD Iron [Mass/Vol] 107 ug/dL Normal 37-145 [facility] Comment on above: Performed By: #### C DP, VD25, FEBC, AHCV, GLYHGB, HIVCMB, TSHX, FERI, LIPRF, B12, CP #### [address] [phone] Assembly Member: Isreal Astorga MD Total Fe Binding Cap 243 ug/dL Low 250-450 [facility] Comment on above: Performed By: #### C DP, VD25, FEBC, AHCV, GLYHGB, HIVCMB, TSHX, FERI, LIPRF, B12, CP #### [facility] [employer] [address] [place] [address] [phone] Assembly Member: Isreal Astorga MD Unbound Fe Bind Cap 136 ug/dL Normal 112-347 [facility] Comment on above: Performed By: #### C DP, VD25, FEBC, AHCV, GLYHGB, HIVCMB, TSHX, FERI, LIPRF, B12, CP #### [address] [id number] Assembly Member: Isreal Astorga MD Lipid Prof, Fastingon 2023 Cholesterol [Mass/Vol] 174 mg/dL Normal 0-199 [facility] Comment on above: Result Comment: Cholesterol Guidelines: <200 Desirable 200-240 Borderline >240 Undesirable Performed By: #### C DP, VD25, FEBC, AHCV, GLYHGB, HIVCMB, TSHX, FERI, LIPRF, B12, CP #### [address] [phone] Assembly Member: Isreal Astorga MD Cholesterol in HDL [Mass/Vol] 57 mg/dL Normal >40 [facility] Comment on above: Result Comment: HDL Guidelines: <40 Undesirable 40-59 Borderline >59 Desirable Performed By: #### C DP, VD25, FEBC, AHCV, GLYHGB, HIVCMB, TSHX, FERI, LIPRF, B12, CP #### [place] [phone] Assembly Member: Isreal Astorga MD Cholesterol in LDL [Mass/Vol] 96 mg/dL Normal 0-100 [facility] Comment on above: Result Comment: LDL Guidelines: <100 Desirable 100-129 Near to/above Desirable 130-159 Borderline >159 Undesirable Direct (measured) LDL and calculated LDL are not interchangeable tests. Performed By: #### C DP, VD25, FEBC, AHCV, GLYHGB, HIVCMB, TSHX, FERI, LIPRF, B12, CP #### [place] [phone] Assembly Member: Isreal Astorga MD Cholesterol in VLDL [Mass/Vol] 22 mg/dL Normal [facility] Comment on above: Performed By: #### C DP, VD25, FEBC, AHCV, GLYHGB, HIVCMB, TSHX, FERI, LIPRF, B12, CP #### [address] [phone] Assembly Member: Isreal Astorga MD Cholesterol.total/Chol esterol in HDL [Mass ratio] 3.0 {ratio} Normal [facility] Comment on above: Performed By: #### C DP, VD25, FEBC, AHCV, GLYHGB, HIVCMB, TSHX, FERI, LIPRF, B12, CP #### [facility] [employer] [address] [place] [address] [phone] Assembly Member: Isreal Astorga MD Triglyceride,Fasting 108 mg/dL Normal 0-149 [facility] Comment on above: Result Comment: Triglyceride Guidelines: <150 Desirable 150-199 Borderline 200-499 High >499 Very high Based on AHA Guidelines for fasting triglyceride, June 2012. Performed By: #### C DP, VD25, FEBC, AHCV, GLYHGB, HIVCMB, TSHX, FERI, LIPRF, B12, CP #### [facility] [employer] [address] [place] [address] [phone] Assembly Member: Isreal Astorga MD TSH w/reflex to FT4on 2023 Thyroid Stim. Horm. 2.37 uIU/mL Normal 0.27-4.20 [facility] Comment on above: Performed By: #### C DP, VD25, FEBC, AHCV, GLYHGB, HIVCMB, TSHX, FERI, LIPRF, B12, CP #### [facility] [employer] [address] [place] [address] [phone] Assembly Member: sIreal Astorga MD Vitamin B12on 03-14-2024 Cobalamin (Vitamin B12) [Mass/Vol] 695 pg/mL Normal 232-1245 [facility] Comment on above: Performed By: #### C DP, VD25, FEBC, AHCV, GLYHGB, HIVCMB, TSHX, FERI, LIPRF, B12, CP #### [facility] [employer] [address] [place] [address] [id number] Assembly Member: Isreal Astorga MD Vitamin D 25 OHon 03-14-2024 Vitamin D 25 [place] 17.4 ng/mL Low 30.0-100.0 [facility] Comment on above: Result Comment: Reference Range: Vitamin D status Range Deficiency <20 ng/mL Mild Deficiency 20-30 ng/mL Sufficiency 30-100 ng/mL Toxicity >100 ng/mL Performed By: #### C DP, VD25, FEBC, AHCV, GLYHGB, HIVCMB, TSHX, FERI, LIPRF, B12, CP #### [employer] [address] [place] [address] Assembly Member: Isreal Astorga MD Patient Handouton 03-13-2024 Patient Handout [facility] [address], [address], [place] Date: 03/13/2024 RE: Lucila Jacques To whom it may concern, Lucila has been under my professional care due to a surgical procedure performed on 02/27/2024. She may return to work with no restrictions on 03/20/2024. Thank you, Peter Booth M.D. [facility] Release of Informationon Release of Information [id number]#1.00OTGTIFF [facility] A1C with Estimated Average G luon 03-12-2024 Glucose [Mass/Vol] 105 mg/dL Normal [facility] Comment on above: Result Comment: PERF ORMED BY: [place] [address] PATHOLOGIST ACCOUNTS RECEIVABLE COORDINATOR GENO BENEDICT M.D. Performed By: #### A 1C WTH eA, ALB, [id number], HGB #### [place] [address] [place] #### NICOTINE #### [facility] , Albumin Levelon 03-12-2024 Albumin [Mass/Vol] 4.0 g/dL Normal 3.5-5.7 [facility] Comment on above: Performed By: #### A 1C WTH eA, ALB, [id number], HGB #### [place] [address] [place] #### NICOTINE #### [facility] , Albumin [Mass/volume] in Ser um or Plasma by Bromocresol green (BCG) dye binding methoOrdered By: Santa Estrada on 03-12-2024 Albumin BCG dye [Mass/Vol] 4.0 g/dL 3.5-5.7 [facility] Cotinine [Mass/volume] in Se rum or PlasmaOrdered By: Santa Estrada on 03-12-2024 Cotinine [Mass/Vol] 3.7 ng/mL . [facility] Comment on above: This test was develo ped and its performance characteristicsdetermined by [facility]. It has not been cleared orapproved by the Food and Drug Administration.Cotinine levels greater than 20.0 are consistent with theuse of tobacco or tobacco cessation products.Performed at: [address] [id number] Director: Marcellus Dave MD, Phone: [phone] Glucose mean value [Mass/vol ume] in Blood Estimated from glycated hemoglobinOrdered By: Santa Estrada on 03-12-2024 Average glucose Estimated from glycated hemoglobin (Bld) [Mass/Vol] 105 mg/dL [facility] Hemoglobin A1c percentageOrd ered By: Santa Estrada on 03-12-2024 HbA1c (Bld) [Mass fraction] 5.3 % Normal 4.3-5.6 [facility] Comment on above: Increased risk for d iabetes: 5.7 - 6.4diabetes: >6.4glycemic control for adults with diabetes: <7.0 Result Comment: Incr eased risk for diabetes: 5.7 - 6.4 diabetes: >6.4 glycemic control for adults with diabetes: <7.0 Performed By: #### A 1C WTH eA, ALB, [id number], HGB #### [address] #### NICOTINE #### [facility] , Hemoglobin [Mass/volume] in BloodOrdered By: Santa Estrada on 03-12-2024 Hemoglobin (Bld) [Mass/Vol] 12.8 g/dL Normal 11.8-15.4 [facility] Comment on above: Result Comment: PERF ORMED BY: [facility] [address] [place] [address] PATHOLOGIST ACCOUNTS RECEIVABLE COORDINATOR GENO BENEDICT M.D. Performed By: #### A 1C WTH eA, ALB, [id number], HGB #### [place] [address] [place] #### NICOTINE #### [facility] , MRSA Cultureon 03-12-2024 MRSA Culture No MRSA Isolated 2 D ays PERFORMED BY: [place] [address] PATHOLOGIST ACCOUNTS RECEIVABLE COORDINATOR GENO BENEDICT M.D. Normal [facility] Comment on above: Performed By: #### C UMRSA #### [address] Nicotine [Mass/volume] in Se rum or PlasmaOrdered By: Santa Estrada on 03-12-2024 Nicotine [Mass/Vol] <1.0 ng/mL . [facility] Comment on above: This test was develo ped and its performance characteristicsdetermined by [facility]. It has not been cleared orapproved by the Food and Drug Administration.Nicotine levels greater than 2.0 are consistent with theuse of tobacco or tobacco cessation products. Nicotine/Cotinine Bloodon Cotinine, Blood 3.7 ng/mL Normal . [facility] Comment on above: Result Comment: This test was developed and its performance characteristics determined by [facility]. It has not been cleared or approved by the Food and Drug Administration. Cotinine levels greater than 20.0 are consistent with the use of tobacco or tobacco cessation products. Performed at: [facility] [id number] Assembly Member: Marcellus Dave MD, Phone: [phone] PERFORMED BY: [place] [address] PATHOLOGIST ACCOUNTS RECEIVABLE COORDINATOR GENO BENEDICT M.D. Performed By: #### A 1C WTH eA, ALB, [id number], HGB #### [place] [address] [place] #### NICOTINE #### [facility] , Nicotine, Blood <1.0 Normal . [facility] Comment on above: Result Comment: This test was developed and its performance characteristics determined by [facility]. It has not been cleared or approved by the Food and Drug Administration. Nicotine levels greater than 2.0 are consistent with the use of tobacco or tobacco cessation products. Performed By: #### A 1C WTH eA, ALB, [id number], HGB #### [address] #### NICOTINE #### [facility] , Vitamin D 25 Hydroxy Totalon 03-12-2024 Vitamin D 25 Hydroxy Total 18.4 ng/mL Low 30-100 [facility] Comment on above: Result Comment: EVE MIN D STATUS 25(OH)VITAMIN D RANGE (ng/mL) Deficient <20 Insufficient 20 to <30 Sufficient 30 to 100 Reference: Juliano Vila, Tate VELAZQUEZ, et al. Evaluation,treatment, and prevention of vitamin D deficiency; an Endocrine Society clinical practice guideline. JCEM. 2010; 96(7):1911-. PERFORMED BY: [place] [address] PATHOLOGIST ACCOUNTS RECEIVABLE COORDINATOR GENO BENEDICT M.D. Performed By: #### A 1C WTH eA, ALB, [id number], HGB #### [address] #### NICOTINE #### [facility] , Vitamin D+Metabolites [Mass/ volume] in Serum or PlasmaOrdered By: Santa Estrada on 03-12-2024 Vitamin D+Metabolites [Mass/Vol] 18.4 ng/mL Low 30-100 [facility] Comment on above: VITAMIN D STATUS [...] (Unsp spec) No MRSA Isolated 2 Days [facility] Coding Summaryon 03-07-2024 Coding Summary HTMLBase 64 CkcgivcwLTd3rLa+PGhlYWQ+PE1 NCHYqY12zpWThoZ6fA1KAHExTZt jsCLDYRSlVYfXzliLmGU7spCGiG XJu IC8+XO0lFZPbHgcrvQWvc4Z7dCZ 4N40cps8zYEtvbMS3UKBwVoLkgd kcb5ijxWl4PWvaFapsUaKe JCHtbB07DNL9pK28Qn01tZTkdRD ju5nzvDf1YmTpBEAiCYY6eZemFR nfc9StUNCwN29jjAGyz3P9 EUDcnInlcOGoTkMffND9pX8aSXl ozyoze0sfnltrLwd3uj86zDMma4 L2kXN7F9RwgbE0UYSxbKUs WiqohTCMsQ5vmnvax6uarnaqCaD lNXOzBJb7QXv0CCGwiWjeVpCaGZ 37DEK1YJNpctSnT3NlYZCq uDhtFyQ2b0Y5Lq7AY2KEMnwuV9F NTUFSWTwvdGQ+RZ75mc89L5KeNc ilDng4VYKwTQP2aUN4hD1d XBKtIAkzi0B8pPC5P8QzwvRzev0 yf4ueUMSqVDhoY54avHDco0S4NY QqrSY9SMGjhRdkYyMuiR07 Oyc+AKQmkLmwi0LoRpjvo8ank7i tnRd0UfwbZSUvwsTotAdnQUU7m8 UgEg0lHJGegCV9sJV2jM1j XhBiVjO1JKbiI053MjDdaVRvZkr vM99rQ1NniGS+LDAlQds1RXCyeV skVK3pW2MvHPCrgscywJYv wNonCE0wTSJytfpzCFNolU3aKJP pU1w4CmHeVpD1UJjpK3SiEDIexh aoLj65eM7zMkFjNzP5UYhf P8HonkO2WXMrfXFiLTcvARV6V06 sr4U1HQZmCLWvXVI2oZL7bF9liZ lnbjogbGVmdDsgdmVydGlj IQudZJfnW747KRUjuUneOsXjFOn uZyBEYXRlOiAgMDYvMTMvMjAyND wvdGQ+TFZeWYP7eGgqWYCt sROfJUicSz6qeWhjgMmsOM9bRZZ byneiFPFvwM0gKPKbxLPnnPlyNT 2eHJJjjtgyw048RiQsSDB2 JTDjuXScQ4JmmL8hHtSvLUOgDBR lF7HzbNMwRDjaF178QKxbFcF2HU LsmwIuT4ZwBZKirOvmPkB6 g4P3Fs2Tc8KmcovoA9ZpzLHqGsN tImpbQTn1R0KqKojvgZJ+PC90YW AiRN31OFy3MPM0pDhvJKos XMFfF1MggN2eChKvWHWaQAScCdc +PHRhYmxlIHdpZHRoPScxMDAlJy SlxIgtPE3bBt5jUWYzDANf yDqrfDKnIlWjp1yjZJQmNYfuOF7 ynCxpZ3FadMF2LNJwq5v3Xg07Z6 4nW8CtyQT+LYAlsLZ8zTD8 mM4dLzMuAgT1KYfyY217PxOaiIZ yXqpyz4mza6hixIx3OxP6GZDlwt DveNavKJX9u4CuWx98V21j IHdpZHRoPSIxNSUiIHZhbGlnbj0 tzK0uFy3+XHFtrZM4dCP1tO6dVo UcEsU1OEghN218UrPrmXBy Fgafx1vli7tdpXx9PyQiMHHpftK xdIwgCKF1r6MbZm67V6JmkTmix3 WbAyh9yh93gZRgi2P2fCO3 G6HwTWQvndvivRWvuTidWD2zLQS awllyDENgkX9gWLWvA4m8FzTsLq T9FXcxX9YbgfV9KFWlnIJx HIEdfMZZcM0kkisou4ctsdltRlR oGDJyPMl6KXt4EULijGcsMrQeEP M7DvP0SNC9iCGthZ0vuSgj shdatD1uYnu+ABL0jWAkyNFGOJ7 lOjwvdGQ+YUTaAQZ1nGreHGvtSE EegS2kBYHzS2e8LsQoOzN8 WIccS8QzrkL0TNKptRVaFEExqZO ScP4voecic2emnfjbYjSxNMZyCO y1XVe8JKYerTspXmMdJTL2 HvZ4FUZ3pEKkiO5buMcpkyrwrO3 wOyc+OjpqcRmbAOZ1AVp7L7YnIb i0KNMtiXqgDS0mpZBzSPkc Bz6hhUfoaMhcLQ7oQYAkvfpxz66 2DmVdh2xlKJCabHSeEXayVWD1S5 5ou4V7QTBuCVBjHGX1rES3 hA9wfDpxcezdlMJlxTvuxlRawOg uCBadZOnqT392NXKwxFjmUqUmTP t7Y2XxHtx1QCNaiJojZE4d sQPtMQgzTf5aiLtsgWzdMA8kHCY tzguju841PdXel3npQCFnbOZnYJ czILQ4K60fs6I2PGYdQSWo OVT7aOJ0cN1grGlikvgcrUTulZf zhgLwwAibNKblXAgtY288SFVthU peHkIjxWa1O0WoXjb9HBPo lMtzSV5ydGGeZOnsNw5ouCmykGx kLD3aUMGihojvt887YaAgl3buLO YooFRjGKonUNO5D17ng2S9 HXXpJYCwZBD9hSX5yY7tmLrqhkw gbGVmdDsgdmVydGljYWwtYWxpZ2 46IHRvcDsnPlBhdGllbnQg DZruMGu0W0PkMvgywNB+QK99FGS pMW16sQAiuKLkx1pcxEs0HaJuJG HaJOS1cYdiQWatv2GiWKDa G30psIPnh7I1XPMhtTfecDSmVgV xcRU3fO5jLSgkxrvos6zvcilgFd mji2vibu01aZ85M41aENuy JVPoQYZmDIEkWMAppKvohh2xoS3 wIi8+TTPolMG4cOW5sO2wJYDzZk O7DYdxR359NaSwdFVcFedx v6mcp5xobOz7GnR8RMNsmmUhrPv tTZT7i7QtPb33E19uHRayGJUgYN LwOFXcFLObqMnqhs8syT4i Ii8+TTDpxGV7qJP6xM0wOnBnYgR 6HVkrJ851MeOptIOoUabuN84oF8 JvdXA+DEUqXaa2NHLchHuh PA7ypNHzFMsfIc2rIHA9GvChFuA xWSynH1OqADVxnjoxzdnyxUK1LQ IdIVRcyJ58Tl2yrMqeRJUy lUGTyD0cxcyva6cmqsonVxJgUGC dHOl5DId2THWpoKbcPdRbBYA5Fj S4RTC6qFXcwZ0yaJhnnkse cR0tY0WtFQUvknrdEh30dW5vCxS oKyG9KRtxNxf+StVCGnoqK2QLIU nQDqJAICY5L9UcZxh6ALVn gGbsHA4ibWMzCUwaHe6zyZznbLj xFI5rJWJvhesxGPIsvB8hGXVotB EpaQtsRM2oALCnptogl687 HzLiZYD0HDOvaDNwJ9GhxU0tNgO qGHDrABOmY4TgcTDgIWozN123IK etLfJ5JYAicjSiF3SoXZTo uMcdPbJ4r4E9Zr3fYZ7jCj5qHDj 2KN88BI17yWEmf3B8eOJ1C7TdEF BplaenxbjqeVO6JXTqADAu eB14pGSiWNknGk6sk4W0i306EJY vQQWvbZ58Gc4beAszFYBlhUIQyH 8sandsp2qfawzkXoNoCUPw CTm6ZKv3TONtyUfzGgEoFQT1ZoP 5JEP9aRKvaG4kqAfeaqrvlN6gKs c+AnPhJPBqblB5I7KcEuh8 LAAqkPmaPO9zmICdVHnxEo6uoAo xfLpcWM3lGZWogtwlFBNerN1kDU OvbYJltOojID9nOWPzppew a074BtKrMMS0XKBryNWqO9BkuZ2 fNzLpZRLdAGUuX8DvoOQyLGikZ6 68ETznQdX8QUTewcNpR7Uw TTZfjDjqCvZ6n8F5Bl8YYM6DHMO 4T2TwQkk2ITJvxLbdLY4asBZqOJ puBw2ihGwogEebJS8qXVNa vorwZYUrrB9mZAJnzVNqcNznQV9 dEFEdttfvx751JxPcGVY8CCSfhI JiE9MtyH6mBbKaJVMpGYMn P3FhsPEaVYuhZ492ZGbtWfE5LRD sygFbO8XxKVLyeJsxWyK3i5M2Tb 5PYnNlcnZhdGlvbjwvdGQ+ YR32ov59Q2KmUvbwPiv2WCZaWCN 3tNA4iJ4qEIKoSNvbz3U0fTC9A7 AhajKxbn2lj5dkCJXbDUgw U56otZMmr4Z3RPYlqAS3JXJgcBv bMbOavX53Iei+SGIdeQlbq4EkJl kgs2pho7yxuZj7PoXiBZIj ntYfoGniIFI6b0DyWm32V06qXWg rZTOoNTKeQGRfLTXwvXnfwy7soN 9wIi8+LEJtoBE3bNV0nH7s YwLjHgF0TPytW457SpNuhABxFlb gu5omn7vgyFv0VfWkFDPephPfkX tuMWT4i1DbSh24B6CjsXqm w3QvPrs3kz20oZDqt4U9aTB8L3T dYWDahsxvzEUfeHkjIW1dTCHvim lbQAIotW1kTZHgQ1c9AoQx MnY9TGexI9VglyH7PFZbyAIzVMG quOHKcH0tujcwd7phiwypNjXiLP GiLMk0JAs0VEBrgFevXfLc UIO1YsG6ZXX2tFYyqU7hrHzwfif siA6dRqn+PWx6x7bwtYWrPJ0glX G2LC23OE93fSUxv2M4nSA9 M8GkFONbtbrqvmuzhZM9VFDzPBP aoH77Ns4cvBthPv4jPLUnZKY3EN NlmFOfN4XvfO0aKaWwPNPn UELeZ1DztVZtNBvlL166YXzcCgI 7OLIvlgAtF5MiUGQzwYqgKwP8a2 G1Xb9BAS13ST30UK35jWBl s5Q5rNX5O8VzMTOkpvayabqnlTV 9UNTsZFMmeQ68Jq4fzBxlAz4zYP InCJT9JQXdxHFhU7HwxJ5r KeKyWMOpBMZcE5PuiNNjLFkrZ82 2BEtwXcU0LTUaczUqW1FsYCBcjR ftBvO4s7S9Ba2RRg02KG01 KH92rXBmw2A6qJE5L0OqMUMhkuz kwzesyMO8ALOzJXPnyS56Nb5nnZ rlYm8sWZBzDWZ2WWMlvBQa U3FmsB6kRzViUPHjQZDmE4AdvFW gKOjsP726TWdqEoP4GRXfwbMiX5 BtXBJzjWffEwB6v5G9Nl8J AFhxvdj7M3ZvVdmgdVY+TW28SAH zWQ72lUCxaOPxc1hnzHk0LwJwOU NeKFU2dGoaEKtdi0UfBCOn Y29 (more content not included)... Normal [facility] Lab - AP Resultson 4 Lab - AP Results [id number]#1.00OTGTIFF Normal [facility] MR KNEE LT WO CONTon 024 MR [...] Mckenzie MD on 03/04/2024 9:59 AM Normal [facility] Consent Formson 02-29-2024 Consent Forms [id number]#1.00OTGTIFF [facility] Consent Formson 02-28-2024 Consent Forms [id number]#1.00OTGTIFF [facility] Consent Forms [id number]#1.00OTGTIFF [facility] MAGR Postoperative Recordon 02-28-2024 MAGR Postoperative Record MAGR Phase II Record Summary Primary Physician: Peter Booth MD Finalized Date/Time: 02/28/24 07:49:14 Pt. Name: LUCILA JACQUES/Sex: 1990 FEMALE Med Rec #: [id number] Physician: Param Michelle DO Financial #: [id number] Pt. Type: O Room/Bed: [facility] Admit/Disch: 02/26/24 22:40:28 - 02/27/24 18:45:00 Institution: [...] Signed By: Mya Villar RN 02/28/24 07:49 [facility] Outside Recordson 02-28-2024 Outside Records [id number][facility] Tele[facility] Strips [id number]#1.[facility] .Auto Diff 1on 02-27-2024 Auto Converse % 8 % Normal 1-12 [facility] Comment on above: Performed By: #### 1 [id number], [id number], 6806969, 1498908748, 8713849, 6213084, 7195896, 7976752 #### [facility] (DEFAULT) [address] [place] [address] Baso Abs# 0.0 x10 Normal 0.0-0.2 [facility] Comment on above: Performed By: #### 1 3863838, 8018979432, 5427269, 9207304820, 7862641, 8944676, 5396220, 8530075 #### [facility] (DEFAULT) [address] [place] [address]76 Basophils/100 WBC (Bld) 0.4 % Normal 0.2-2.0 [facility] Comment on above: Performed By: #### 1 5601718, 1791668166, 7135144, 0441032922, 2323435, 6323724, 0334684, 1951065 #### [facility] (DEFAULT) [address] [place] [address] 76412 Eos Abs# 0.1 x10 Normal 0.0-0.4 [facility] Comment on above: Performed By: #### 1 0918332, 0840593362, 7627663, 8355494480, 4197070, 9661469, 1825614, 3505788 #### [facility] (DEFAULT) [address] [place] [address] 75452 Eosinophils/100 WBC (Bld) 1.1 % Normal 0.9-4.0 [facility] Comment on above: Performed By: #### 1 1398378, 1922967937, 6793894, 7829621270, 2143846, 3472305, 2257428, 8757688 #### [facility] (DEFAULT) [address] [place] [address] 04501 Lymph Abs# 2.1 x10 Normal 1.3-2.9 [facility] Comment on above: Performed By: #### 1 0196186, 2361527095, 9268442, 2104693288, 6829548, 7269956, 5055010, 0131938 #### [facility] (DEFAULT) [address] [place] [address] 05451 Lymphocytes/100 WBC (Bld) 28 % Normal 14-48 [facility] Comment on above: Performed By: #### 1 1551083, 2746188386, 6543113, 0147480917, 3570394, 5559152, 6780897, 5462256 #### [facility] (DEFAULT) [address] [place] [address]4740 Converse Abs# 0.6 x10 Normal 0.0-0.8 [facility] Comment on above: Performed By: #### 1 7356364, 1025761228, 0049707, 6849925584, 8063484, 1817502, 2038613, 5308477 #### [facility] (DEFAULT) [address] [place] [address] 70996 Neut Abs# 4.8 x10 Normal 1.5-9.2 [facility] Comment on above: Performed By: #### 1 7533813, 4277062881, 9096867, 7573607289, 9900566, 2665696, 1320365, 6441420 #### [facility] (DEFAULT) [address] [place] [address] 28757 Neutrophils/100 WBC (Bld) 63 % Normal 44-88 [facility] Comment on above: Performed By: #### 1 9669053, 9459001728, 0775345, 2493924184, 0411598, 8070956, 3175426, 7048865 #### [facility] (DEFAULT) [address] [place] [address] 72885 Amylaseon 02-27-2024 Amylase [Catalytic activity/Vol] 51.0 U/L Normal 28.0-100.0 [facility] Comment on above: Performed By: #### 1 8326976, 3513638157, 1074787, 0736118115, 3367432, 7876232, 8476648, 8690270 ####[facility] (DEFAULT)[address] [place] [address]27 Anesthesia Noteon 02-27-2024 Anesthesia Note Patient: LIOR [...] on: 02/27/2024 12:58 EDT] Juliano Peterson DO [facility] Anesthesia Note Patient: LIOR JACQUES IN MAXINE [...] history): All Problems Anxiety / SNOMED CT 52062496 / Confirmed Arthritis of left knee / SNOMED CT 854349479332378 / Confirmed Body mass index 40+ - severely obese / SNOMED CT 7610870534 / Confirmed Genital warts / SNOMED CT 574281519 / Confirmed History of arthroscopy of knee joint / SNOMED CT 3558240719 / Confirmed History of bariatric surgical procedure. / SNOMED CT 2762726389 / Confirmed Gastric bypass status for obesity / SNOMED CT 0040558941 / Confirmed H/O syncope / SNOMED CT 0460411794 / Confirmed Hypokalemia / SNOMED CT 24267574 / Confirmed Hypomagnesemia / SNOMED CT 662112123 / Confirmed Mixed anxiety and depressive disorder / SNOMED CT 980151839 / Confirmed Morbid obesity / SNOMED CT 064821551 / Confirmed Peripheral venous insufficiency / SNOMED CT 50548755 / Confirmed Sacroiliac joint pain / SNOMED CT 257792822 / Confirmed Varicose veins of left lower limb / SNOMED CT 272854346335927 / Confirmed Resolved: / SNOMED CT 667503946 Histories Family History: Clotting disorder Mother Diabetes mellitus type 2 Father Grandmother (Paternal) High blood pressure Father PVD - Peripheral vascular disease Mother GERD - Gastro-esophageal reflux disease Father Procedure history: CT guided nerve block ([id number]) on 01/12/2024 at 33 Years. Comments: 01/12/2024 11:39 Cuong Landa MA LEFT GENICULAR microphlebectomy in the month of 07/2017 at 27 Years. Comments: 03/19/2019 10:05 Margaret Catalan [employer] left leg Gastric sleeve ([id number]) in the month of 07/2016 at 26 Years. section (18337562) on 11/10/2014 at 24 Years. section (38847759) on 06/29/2012 at 21 Years. Gastric band (1847373732). Social History Electronic Cigarette/Vaping Assessment Electronic Cigarette [...] (FEB 26 (more content not included)... Normal [facility] CBC w/ Auto Diffon Erythrocyte distribution width (RBC) [Ratio] 13.3 % Normal 11.5-15.0 [facility] Comment on above: Performed By: #### 1 9585087, 6886576341, 7349658, 0991488767, 6008262, 2885600, 1750445, 5070054 #### [facility] (DEFAULT) [address] [place] [address] 22697 Hematocrit (Bld) [Volume fraction] 42.2 % High 33.7-40.4 [facility] Comment on above: Performed By: #### 1 2539078, 1642945072, 2749102, 3855422896, 8085251, 1209671, 3639384, 6942244 #### [facility] (DEFAULT) [address] [place] [address] 06262 Hemoglobin (Bld) [Mass/Vol] 14.3 g/dL Normal 11.3-15.9 [facility] Comment on above: Performed By: #### 1 1357665, 0942519218, 2130037, 5355736257, 9263913, 0798591, 3262853, 9572089 #### [facility] (DEFAULT) [address] [place] [address] 74080 MCH (RBC) [Entitic mass] 30 pg Normal 24-34 [facility] Comment on above: Performed By: #### 1 7795711, 4637119643, 4866573, 3111056111, 8351320, 3985267, 4627661, 9430799 #### [facility] (DEFAULT) [address] [place] [address] 43200 MCHC (RBC) [Mass/Vol] 34 g/dL Normal 26-37 [facility] Comment on above: Performed By: #### 1 3620822, 8211091933, 5623091, 5749393895, 6075239, 4080648, 1820346, 6381735 #### [facility] (DEFAULT) [address] [place] [address] 08411 MCV (RBC) [Entitic vol] 90 fL Normal 81-100 [facility] Comment on above: Performed By: #### 1 9917724, 0333427015, 1995230, 2250269626, 2251222, 6362013, 9070604, 0881016 #### [facility] (DEFAULT) [address] [place] [address] 91917 Platelet 243 x10 Normal 138-427 [facility] Comment on above: Performed By: #### 1 6239951, 3724949184, 6392371, 3163688697, 2967089, 0701888, 3195563, 4974555 #### [facility] (DEFAULT) [address] [place] [address] 64024 Platelet mean volume (Bld) [Entitic vol] 8.0 fL Normal 6.3-10.2 [facility] Comment on above: Performed By: #### 1 1303071, 3522256255, 0416959, 3074562693, 2277094, 7988765, 3795321, 8284662 #### [facility] (DEFAULT) [address] [place] [address] RBC 4.70 x10 Normal 3.70-5.30 [facility] Comment on above: Performed By: #### 1 3883514, 0321952376, 0631451, 5965531146, 9758543, 2716078, 6010074, 2043346 #### [facility] (DEFAULT) [address] [place] [address] WBC 7.7 x10 Normal 3.5-10.5 [facility] Comment on above: Performed By: #### 1 2017334, 9705389184, 9443587, 4463131562, 6486265, 8388034, 6109690, 1767481 #### [facility] (DEFAULT) [address] [place] [address] Man Diff? Auto Invalid Interpretation Code [facility] Comment on above: Performed By: #### 1 3492375, 1214634417, 6611375, 3366350476, 2655958, 8877779, 0722850, 1135248 #### [facility] (DEFAULT) [address] [place] [address] CMP Standardon 02-27-2024 eGFR Non AA >60 Invalid Interpretation Code [facility] Comment on above: Performed By: #### 1 7437939, 6503167125, 3722439, 7791048052, 9987051, 2537380, 6551696, 6954359 #### [facility] (DEFAULT) [address] [place] [address] eGFR AA >60 Invalid Interpretation Code [facility] Comment on above: Performed By: #### 1 7019245, 8294123400, 2400515, 0672224185, 8317256, 5585930, 1413697, 5914063 #### [facility] (DEFAULT) [address] [place] [address] Albumin [Mass/Vol] 4.2 g/dL Normal 3.5-5.0 [facility] Comment on above: Performed By: #### 1 5516021, 4719370728, 5348359, 6787250522, 0377717, 7866501, 3672956, 2846284 #### [facility] (DEFAULT) [address] [place] [address] 63160 Albumin/Globulin [Mass ratio] 1.4 {ratio} Normal 1.4-2.6 [facility] Comment on above: Performed By: #### 1 3762226, 0251728024, 9119584, 4530231593, 4081499, 3745792, 2911833, 2739838 #### [facility] (DEFAULT) [address] [place] [address] 84551 Alk Phos 56 IU/L Normal 32-91 [facility] Comment on above: Performed By: #### 1 9290452, 7878912852, 7904957, 7178575168, 1518272, 7140415, 9576934, 7500451 #### [facility] (DEFAULT) [address] [place] [address] 40151 ALT [Catalytic activity/Vol] 22.0 U/L Normal 14.0-54.0 [facility] Comment on above: Performed By: #### 1 2077636, 3541747161, 4093102, 2070894464, 3848966, 0803722, 5120431, 1261393 #### [facility] (DEFAULT) [address] [place] [address] 42837 Anion gap [Moles/Vol] 10.5 mmol/L Normal 5.0-19.0 [facility] Comment on above: Performed By: #### 1 5728441, 5525903853, 4717919, 8742065221, 5998790, 6670364, 3324439, 3354658 #### [facility] (DEFAULT) [address] [place] [address] 10238 AST [Catalytic activity/Vol] 26 U/L Normal 15-41 [facility] Comment on above: Performed By: #### 1 9884006, 3613746330, 6304053, 3994834030, 9640562, 5237415, 9121135, 6497260 #### [facility] (DEFAULT) [address] [place] [address] 25934 Bili Total 0.8 mg/dL Normal 0.3-1.2 [facility] Comment on above: Performed By: #### 1 1010980, 6526294474, 4766291, 5889161507, 3430484, 1134925, 4128660, 6449323 #### [facility] (DEFAULT) [address] [place] [address] 34969 Calcium [Mass/Vol] 9.0 mg/dL Normal 8.9-10.3 [facility] Comment on above: Performed By: #### 1 2933953, 8913592645, 5926912, 3822869287, 4159495, 5905454, 0630399, 3546239 #### [facility] (DEFAULT) [address] [place] [address] 40841 Chloride [Moles/Vol] 105 mmol/L Normal 101-111 [facility] Comment on above: Performed By: #### 1 1967266, 6674764252, 6370545, 2309210997, 2520033, 5519345, 9773413, 8837690 #### [facility] (DEFAULT) [address] [place] [address] 36665 CO2 [Moles/Vol] 24 mmol/L Normal 21-32 [facility] Comment on above: Performed By: #### 1 3403675, 9743084306, 9254686, 1816905971, 2104493, 3237877, 6710186, 8384105 #### [facility] (DEFAULT) [address] [place] [address] 46316 Creatinine [Mass/Vol] 0.68 mg/dL Normal 0.60-1.30 [facility] Comment on above: Performed By: #### 1 1370225, 1377562891, 5341181, 8972346962, 3743001, 4209528, 5857094, 3538444 #### [facility] (DEFAULT) [address] [place] [address] 04985 Globulin (S) [Mass/Vol] 3.0 g/dL Normal 1.5-4.3 [facility] Comment on above: Performed By: #### 1 9074234, 0392129023, 8795056, 7259586039, 5373042, 0573182, 2810593, 7691343 #### [facility] (DEFAULT) [address] [place] [address] 45469 Glucose [Mass/Vol] 93.0 mg/dL Normal 74.0-118.0 [facility] Comment on above: Performed By: #### 1 [id number], [id number], [id number], [id number], 6636371, 4208549, 0529260, 5174196 #### [facility] (DEFAULT) [address] [place] [address] 35994 Osmolality 270 mOsm/L Invalid Interpretation Code [facility] Comment on above: Performed By: #### 1 [id number], [id number], 4995964, [id number], 6850916, 0695439, 6893586, 0525163 #### [facility] (DEFAULT) [address] [place] [address] 84547 Potassium [Moles/Vol] 3.5 mmol/L Low 3.6-5.1 [facility] Comment on above: Performed By: #### 1 [id number], [id number], 3908317, [id number], 5729284, 6838954, 4697458, 5527814 #### [facility] (DEFAULT) [address] [place] [address] 09932 Protein [Mass/Vol] 7.2 g/dL Normal 6.5-8.1 [facility] Comment on above: Performed By: #### 1 [id number], [id number], 0736453, 7780526784, 3128631, 3805558, 9086507, 4788181 #### [facility] (DEFAULT) [address] [place] [address] 11721 Sodium [Moles/Vol] 136.0 mmol/L Normal 136.0-144 . 0 [facility] Comment on above: Performed By: #### 1 [id number], [id number], 3588163, [id number], 6279087, 2641599, 7291440, 5372042 #### [facility] (DEFAULT) [address] [place] [address] 52461 Urea nitrogen [Mass/Vol] 9 mg/dL Normal 8-26 [facility] Comment on above: Performed By: #### 1 5361014, [id number], 8792357, 9353008402, 1336579, 2642230, 1098180, 9963551 #### [facility] (DEFAULT) [address] [place] [address] Urea nitrogen/Creatinine [Mass ratio] 13.2 mg/mg Normal 4.6-16.2 [facility] Comment on above: Performed By: #### 1 [id number], [id number], 9217331, 4250691868, 1233407, 2399969, 6845128, 8254587 #### [facility] (DEFAULT) [address] [place] [address] CT PE Chest/Abdomen/Pelvis w / Contraston 02-27-2024 [...] MD 02/27/24 2:37 am Technologist: CB Thomas [facility] ED Clinical Summaryon 2023 ED Clinical Summary [facility] - Emergency Department [address] [place] [address] ED Clinical Summary PERSON INFORMATION Name: LUCILA JACQUES Age: 33 Years Sex: FEMALE : 1990 MRN: Acct#: Visit Reason: Abdominal pain; ACUTE CHOLECYSTITIS Arrival: 02/26/2024 22:40:28 Discharge: LOS: 000 09:38 Check In: 02/26/2024 22:40:28 Checkout:02/27/2024 08:18:49 Address: [address] [place] [address] PCP: Provider, None PROVIDER INFORMATION Provider Role [...] recorded.. Surgical history: CT guided nerve block ([id number]) on 01/12/2024 at 33 Years. Comments: 01/12/2024 11:39 EDT - Cuong Chowdary MA LEFT GENICULAR microphlebectomy in the month of 07/2017 at 27 Years. Comments: 03/19/2019 10:05 EDT - Margaret Perera [employer] left leg Gastric sleeve ([id number]) in the month of 07/2016 at 26 Years. section (26305142) on 11/10/2014 at 24 Years. section (53674126) on 06/29/2012 at 21 Years. Gastric band ([id number]).. Family history: Clotting disorder Mother Diabetes mellitus type 2 (more content not included)... [facility] ED Note - Physicianon 2023 ED Note [...] recorded.. Surgical history: CT guided nerve block ([id number]) on 01/12/2024 at 33 Years. Comments: 01/12/2024 11:39 EDT - Cuong Chowdary MA LEFT GENICULAR microphlebectomy in the month of 07/2017 at 27 Years. Comments: 03/19/2019 10:05 EDT - Margaret Perera [employer] left leg Gastric sleeve ([id number]) in the month of 07/2016 at 26 Years. section ([id number]) on 11/10/2014 at 24 Years. section (07838833) on 06/29/2012 at 21 Years. Gastric band ([id number]).. Family history: Clotting disorder Mother Diabetes mellitus [...] Respiratory: Lungs ar (more content not included)... [facility] ED Note-Nursingon 02-27-2024 ED Note-Nursing Pt arrives to ED alvaro m 7 complaining of abdominal pain. Pt states it has been going on for a few days, Pt has history of gastric bypass done at a [facility] facility. Pt denies any other complaints. [facility] ED Patient Education Noteon 02-27-2024 ED Patient Education Note Education Materials [facility] ED Patient Summaryon 024 ED Patient Summary [facility] - Emergency Department [address] [place] [address] PATIENT DISCHARGE INSTRUCTIONS Patient Information Name: LUCILA JACQUES Age: 33 Years Date of : 1990 Reason For Visit: Abdominal pain; ACUTE CHOLECYSTITIS Arrival Time: 02/26/2024 22:40:28 Primary Care Physician: Provider, None Attending Physician: Maurizio Mast MD Comment: Visit Diagnosis: Diagnoses This Visit Abdominal pain ([id number]) Acute cholecystitis (K81.0) Biliary colic (K80.50) The Pharmacy at [facility] is open Monday through Monday from 9A [...] alcohol and/or drug addiction problems; contact the [facility] 17/04 Crisis Hotline -Text 4HHTX to 978530. If you received any narcotics, sedation, or [...] and treatment you received today in the [facility] Emergency Department were for an urgent problem and are not intended as complete care. It is important for you to follow up with a doctor, nurse practitioner, or physician?s assistant county attorney for ongoing care. If your symptoms [...] so we can reach you if necessary. [facility] Emergency Department has provided you with a complete list of medications post discharge. Please inform your merry go round attendant/provider of your visit and for further instruction [...] for D (more content not included)... Normal [facility] Inpatient Patient Summaryon 02-27-2024 Inpatient Patient Summary [address] [address] Patient Discharge Instructions Name: LUCILA JACQUES : 1990 Patient Address: [address] [place] [address] Primary Care Provider: Name: Provider, None Phone: After you are discharged if you find you have any questions, please, call [phone] ext [phone] to speak to a nurse. The Pharmacy at [facility] is open Monday through Monday from 9A [...] alcohol and/or drug addiction problems; contact the [facility] 17/04 Crisis Hotline -Text 4HYBX to 829195. If you received any narcotics, sedation, or [...] business decisions or sign any legal documents [facility] would like to thank you for allowing us to assist you with your healthcare needs. The following includes patient education materials and information regarding your injury/illness. LUCILA JACQUES has been given the following list of follow-up instructions, prescriptions, and patient education materials: Follow-up Instructions With: Address: When: Peter Booth [address] [place] [address], [place] [address] Business (1) In 2 weeks 03/12/2024 Comments: Call for follow up appointment With: Address: When: Loni Provider [address] [place] [address] Medications During the course of your visit, your medication list was updated with the most current information. The details of those changes are reflected below: New Medications [id number], [address] [place], [place] [id number], [phone] acetaminophen-hydrocodone (acetaminophen-hydrocodone 325 mg-5 mg oral tablet) [...] problems or questions, (more content not included)... [facility] 02-27-2024 L Specimen: [id number] Received: 02/28/24 Status: MICHAEL Young Num: [id number] Spec Type: Surgical Subm Dr: Peter Booth MD Tissues: A Gallbladder (GALLBLADDER) Procedures: HE/2, Gross/Micro L3 Age/ Patient Sex Location Account Attending Physician Lucila Jacques 33/F [facility] [id number] Maurizio Mast MD SPEC NUM: [id number] RECD: 02/28/24 STATUS: MICHAEL YOUNG NUM: [id number] NIELS: 02/27/[address]: Peter Booth MD ENTERED: 02/28/[address] SPEC TYPE: Surgical DEPT: [facility] ORDERED: HE/2, Gross/Micro L3 ORDERED: HE/2, Gross/Micro [...] gallbladder wall measures 0.1 cm in thickness. Finisher Accordion sections are submitted in A1 (gallbladder) and A2 (lymph node). CPT Codes 35425 Specimen: [id number] Received: 02/28/24 Status: MICHAEL Young Num: [id number] Spec Type: Surgical Subm Dr: Peter Booth MD Tissues: A Gallbladder (GALLBLADDER) Procedures: HE/Josie, Gross/Micro L3 Patient: Lucila Jacques [id number] (Continued) Signed (signature on file) Domenic Hopper MD 02/29/24 8070 Normal [facility] Lactic Acidon 02-27-2024 Lactic Acid 15.3 mg/dL Normal 4.5-19.8 [facility] Comment on above: Performed By: #### 2 [id number] ####[facility] (DEFAULT)[address] [place] [address]7400 Lipaseon 02-27-2024 Lipase Level 30.0 IU/L Normal 22.0-51.0 [facility] Comment on above: Performed By: #### 1 [id number], [id number], 0406490, 3529226277, 7119698, 1047275, 5195582, 2126108 ####[facility] (DEFAULT)[address] [place] [address] MAGR Intraoperative Recordon 02-27-2024 MAGR Intraoperative Record [facility] Intra-Op Record Summary Primary Physician: Peter Booth MD Finalized Date/Time: 02/27/24 12:38:12 Pt. Name: LUCILA JACQUES /Sex: 1990 FEMALE Med Rec #: [id number] Physician: Param Michelle DO Financial #: [id number] Pt. Type: O Room/Bed: [facility] Admit/Disch: 02/26/24 22:40:28 - Institution: Case Times [...] Role Performed Surgeon - Primary Anesthesiologist of Panel Installer Record Time In 02/27/24 11:31:00 02/27/24 11:01:00 02/27/24 11:01:00 Time Out 02/27/24 12:19:00 02/27/24 12:36:00 02/27/24 12:36:00 Procedure Cholecystectomy Cholecystectomy Cholecystectomy Laparoscopic Laparoscopic Laparoscopic Last Modified By: Bre Spaulding RN, Debra RN Myers, Debra RN 02/27/24 12:35:49 02/27/24 12:35:49 02/27/24 12:35:49 Entry 4 Entry 5 Entry 6 Case Attendee Dina Malcolm PROTECTION ENGINEER, Marie PROTECTION ENGINEER Will Miller CST, CST Role Performed Carton Maker Carton Maker Scrub Personnel Time In 02/27/24 11:01:00 02/27/24 [...] Peterson DO, Bre Spaulding RN, Dina Malcolm PROTECTION ENGINEER, Tru PROTECTION ENGINEER, Marie PROTECTION ENGINEER CSFA, Will Miller PROTECTION ENGINEER Last Modified By: Bre Spaulding RN 02/27/24 [...] Text: E.290 Eval (more content not included)... [facility] Primary Physician: Peter Booth MD Finalized Date/Time: 02/27/24 14:07:36 Pt. Name: LUCILA JACQUES/Sex: 1990 FEMALE Med Rec #: [id number] Physician: Param Michelle DO Financial #: [id number] Pt. Type: O Room/Bed: 226/1 Admit/Disch: 02/26/24 22:40:28 - Institution: PACU Case Times MAGR Entry 1 In PACU I 02/27/24 12:38:00 Discharge from PACU 02/27/24 13:40:00 I Last Modified By: Yarelis Schmitt RN 02/27/24 14:07:32 Finalized By: Yarelis Schmitt RN Document Signatures Signed By: Yarelis Schmitt RN 02/27/24 14:07 [facility] Magnesiumon 02-27-2024 Magnesium [Mass/Vol] 1.86 mg/dL Normal 1.80-2.50 [facility] Comment on above: Performed By: #### 1 [id number], [id number], 1669589, 7229129051, 4800287, 8435604, 7088989, 0385004 ####[facility] (DEFAULT)[address] [place] [address] Nutrition Noteon 02-27-2024 Nutrition Note Chart reviewed; 33 y o female diagnosed with s/p lap choly; diet order full liquids; patient with history of gastric bypass surgery ; no difficulties with chew/swallow identified on admit; encourage increase po as rachael; rec advance as rachael to regular soft diet; will monitor po with diet advance, wt/labs for changes; follow, assist prn. ts [facility] PTon 02-27-2024 INR Coag (PPP) [Relative time] 0.98 {INR} Normal 0.91-1.11 [facility] Comment on above: Performed By: #### 1 [id number], [id number], 0906446, 5718218618, 9050222, 3414223, 0538193, 4040047 ####[facility] (DEFAULT)[address] [place] [address] PT 10.2 second(s) Normal 9.7-11.8 [facility] Comment on above: Performed By: #### 1 6893599, [id number], 4873868, 6061209944, 1922456, 3706701, 3068733, 4958454 ####[facility] (DEFAULT)[address] [place] [address] 12953 Test Serum 1 Preg Serum Internal Control [place] [facility] Comment on above: Performed By: #### 3 [id number] ####[facility] (DEFAULT)[address] [place] [address] 00066 Test Serum Qual Negative [facility] Comment on above: Performed By: #### 3 [id number] ####[facility] (DEFAULT)[address] [place] [address] TnI HSon 02-27-2024 Troponin I High Sensitivity 3.0 pg/mL Normal <=15.0 [facility] Comment on above: Performed By: #### 1 [id number], [id number], 4776521, 6134770518, 9993779, 3267018, 7127026, 9911133 ####[facility] (DEFAULT)[address] [place] [address] UA w Culture if Ind Standard on 02-27-2024 Breakpoint UA [facility] Comment on above: Performed By: #### 1 [id number] ####[facility] (DEFAULT)[address] [place] [address] Color (U) Yellow [facility] Comment on above: Performed By: #### 1 [id number] ####[facility] (DEFAULT)[address] [place] [address] Culture? Not Indicated Invalid Interpretation Code [facility] Comment on above: Result Comment: Resu lt created by rule GL_MAGR_ADD_UA_CULT1 Performed By: #### 1 [id number] ####[facility] (DEFAULT)[address] [place] [address] Glucose (U) [Mass/Vol] Negative [facility] Comment on above: Performed By: #### 1 [id number] ####[facility] (DEFAULT)[address] [place] [address] Ketones Ql (U) 40 [facility] Comment on above: Performed By: #### 1 [id number] ####[facility] (DEFAULT)[address] [place] [address] 91277 Micro? Not Indicated Invalid Interpretation Code [facility] Comment on above: Result Comment: Resu lt created by rule GL_MAGR_ADD_UA_MICRO Performed By: #### 1 [id number] ####[facility] (DEFAULT)[address] [place] [address] UA Bilirubin Negative [facility] Comment on above: Performed By: #### 1 [id number] ####[facility] (DEFAULT)[address] [place] [address] UA Blood Negative Normal NEGATIVE [facility] Comment on above: Performed By: #### 1 [id number] ####[facility] (DEFAULT)[address] [place] [address] UA Clarity CLEAR Normal CLEAR [facility] Comment on above: Performed By: #### 1 [id number] ####[facility] (DEFAULT)[address] [place] [address] UA Leuk Est Negative Normal NEGATIVE [facility] Comment on above: Performed By: #### 1 [id number] ####[facility] (DEFAULT)[address] [place] [address] UA Nitrite Negative Normal NEGATIVE [facility] Comment on above: Performed By: #### 1 [id number] ####[facility] (DEFAULT)[address] [place] [address] UA pH 7.5 Normal 5-8 [facility] Comment on above: Performed By: #### 1 [id number] ####[facility] (DEFAULT)[address] [place] [address] UA Protein Negative Normal NEGATIVE [facility] Comment on above: Performed By: #### 1 [id number] ####[facility] (DEFAULT)[address] [place] [address] UA Spec Grav 1.015 Normal 1.001-1.[address] [place] [address] Comment on above: Performed By: #### 1 [id number] ####[facility] (DEFAULT)[address] [place] [address] UA Urobilinogen 0.2 mg/dL Normal 0.2-1.0 [facility] Comment on above: Performed By: #### 1 [id number] ####[facility] (DEFAULT)[address] [place] [address] Urine Source Clean Catch Normal [facility] Comment on above: Performed By: #### 1 [id number] ####[facility] (DEFAULT)[address] [place] [address] US Gallbladderon 02-27-2024 US Gallbladder EXAM: US [...] Geovani Miranda MD 02/27/24 5:19 am Technologist: [facility] XR knee LT 4V*on 02-15-2024 XR knee LT 4V* [facility] [address] [place] [address] XRay Report Signed Patient: Lucila Jacques MR#: [id number] 33 : 1990 Acct:[id number] Age/Sex: 33 / F ADM Date: 02/15/24 Loc: [facility] Room: Type: [facility] Attending Dr: Santa Estrada II, MD Copies to: Santa Estrada MD Ordering Provider: Santa Estrada MD Date of Service: 02/15/24 XR/XR knee LT 4V*: M25.562 - Pain in left knee ([id number]) XR/XR pelvis 1-2V: M25.562 - Pain in [...] Palacio Jr., D.OWalker02/15/2024 3:38 PM Dictation Location: [place] [address] Transcribed By: [facility] 02/15/24 1538 Dictated By: Haile Palacio Jr, DO 02/15/24 153 Signed By: 02/15/24 1538 Normal [facility] Coding Summaryon 01-31-2024 Coding Summary HTMLBase 64 MhjdrxbzAUq6xUa+PGhlYWQ+PE1 BYDOeL11qhLQcvD8gV4OTGBaYCo bmULGRPVtCJpIbshUhII4vgQMbS XJu IC8+UF7hZYSzOeqvqUJpi9I2mRQ 9H80fyq7rWKkncKI1HNDzSpFkkn oai2mipSy2IHikVjkmDvCv SLByiS12MGA5sF58Jw08yGYfiVP ox2pohHl1VcZiFHDuPDK8yTsoAL uqk5MtTHRjU27zsARxv7H3 BRAvhLgggJDbZwPhqEH9hX4eIKh wyxrak5idrseiKex8ma50cINab2 Y3aZX0I2MnfhE7BINvsDZr IfwbxMBVtU9dgtjcd4evgxfaAqL qXAJqMKb7AGq6DJWxwWrhQyWmPC 68YUO2UQZfbjQxR8MpJZPq hGitRsC9e7S2Cp5ON2UILzxoE6C NTUFSWTwvdGQ+WX57di14E1LgTz abKqg3LGZzUNK4rYG4gB3q UPRsCPsli6G4cGE4K8OhxeKizo1 eq3ltFXYeAJbmR93siHAvp3O1NV RbcXM9WXYvvVcwUrFlzN92 Oyc+UVJndKotp0YqFtpbm8sdf4r eySb0KpklIDGzszMbdWmbBJH7c1 DwQg0zYLMqiXR3yQQ6jA3y WiQoKiZ1KBxoQ255ZfFkjBQnKba yD13cW2KxjGX+AQAyPde8TIQryK tqEW8kP2EiMFOdxynfhQOg xZzeRP0zDTMbegypBVKgkO1pICG wN4x3GdQyEcH5DXdcL1YzZCUznh xdQt44nQ4dAhLgKqV5SBzo Z0UlepI0TKIdjQXvVMnfUML2T42 ut2O5XKYiOYXeVNS5yDT9nP2pfU lnbjogbGVmdDsgdmVydGlj NCdvIBxrN523KBUjcGoxRsLfKNq uZyBEYXRlOiAgMDUvMDgvMjAyND wvdGQ+OLNfABB4pVptEFKr aXTdWLwaFl4cvHuwmKfoHP5sWYD gwdeuBCKzyV8kAPYppJPakZsvIA 6xWFBljtpkv933HyScQNV4 EIIelASqA4AnnV1oBtFhXXVkXMP pM7PocIZbCBppD044KTscPxB7UE KkcaFkG2FfGYOxwSsqDeV0 z6S6Ax7Jj8VrnmlqX6WghOYbJoE cMlqdCVg5N1XzWavliXU+PC90YW KdCU80JWu0UTC1zZaxVFll OCAwA4IupY9oQoBuMSZbWBKxVpf +PHRhYmxlIHdpZHRoPScxMDAlJy StkEroEH8wPs0eGSGeBTYm jLvdpXEkTfCtm3esQLLmNOxcSM7 zdNmtX0NqrTZ2APJqi3f0Fl93D6 4kR1SfjOV+SLHihBQ7dFB8 hB7qVnVbBuL6HBqsG249LkQkeZQ tJqnzo4oml7prtBp6HdK2WZVbdf TuzMebHTO5h1BdEq06Y82u IHdpZHRoPSIxNSUiIHZhbGlnbj0 ocC5wYf6+WMOhvNH4mIR6aF0wXf YpEnP4OUjkI413SkBisTYd Htcav1eec7mngLx4YlRlWIFceqI mqZkyEGV9h9CmDq95M4JbnIray1 FxLnk8ht92fZPio3X0bKT3 A6TuIEVvkqjazERteCumJD8aAAN itmaeWAZcvI3vGGBqH6j9KyPkIj S9UNtyX5QiauS8BRNmdGNl BYSteQCLqH5owfmer0bpztwtZuG bOWLtLOd9CVn6TXProQryGtVlDP A1HtA4MTE8wUYvzI4kwYdq ishrpQ0bFkp+SEY0ePCseGEYXP1 lOjwvdGQ+ZDPvKCI0yWptPMjhOL FkeW6pNOFzM5i0DiXdSdS4 OFctZ5GpmzM5MPKnuQEoJKOxmJM CdS8ntigva0oeeaooXxFfUKFwBW t9RMr4PWMexLseLkQaWNZ3 RlS4XNO8cOIgoT3haCwofwtneG5 wOyc+DozrqRknJSN6PZm1B7GxQy t1EUWrrDqsFL7fjBWaQMrh Xy6zhFcccKaxJI3iCQQuxdzvo77 0TeYzw7rrVHYoeQQwDOrhHPV7H5 1xt0Q8UFFoMZEhWWY7lYG5 gR8feJylghkbaTKsgJztsxAdiWw nJGhpCGmxU852INPxjMkvIrOwVX l6O4XuUfb5SZGqvFwhSN5t bCFjFDzxOf7jsBzhmNvqMD4xKTP tspwhp070NtNmh1xoAOOtpXReMS pjJUC7J19fb8A1ANAePIAg GVN3mST7eC2tqLuymeecpLJlkHe jldIwaXarQBpiVLofY092UOSrmF brOsWhsAb7K8LvNif4QPPg bVdrAP4hlODqXFybEg6rjQtljHl aUP5ySIUbhtayq876PoEfy6vqJC BmbBOtPTffJJY9V32uc7D2 VNMcPWDoALK3sSL1nZ5alOzzqiw gbGVmdDsgdmVydGljYWwtYWxpZ2 46IHRvcDsnPlBhdGllbnQg GIvlATc3M3SlPujtjGD+XV84LLY gRU57bUDisZXut7wibIq3AwVjKT GsTWI8tYnmLQgnf6HnPMCn B59ncQIzl7V7ZFTwnCduvLHrCfU zuTR5nF9aWDwxpitqo2qklciaYj ezo5sccv06bN45T16kCGpg YQZxHSLnOMJfJCNyjTizkb4lzI7 wIi8+CSMgyKK9qQB2oH2gLTDwFf Z2UDtjF634VzYcpPOfGwix r3ejv7awsYb4NzZ1DDQmcgSsoTz oLXQ3a0FyTl73X92yTJftYGXoHG IjTROrOYDbkImuup8zhJ0y Ii8+UQQnmUE8wHZ9bQ2yWiTwJjA 2BCcrG331SkSvoLPcVjxiW98dR3 JvdXA+TZXnZny6NPXucEhu SX5wjQMyQMvaTr9pYIA5UxJtSdV bYAuaX1WdSXAfkdjacmsbiFN3TE NqCKWqjH42Rp8ndVbkQZRh nEJYbU5sjxmls2abejmmZxAtALR eEKc0LAv2ZHAkkBxmNqJdTIH5Ru C6QMF2dCHlnR6boHvonesf zT7rT7JaPPPspfkuDs06lM2mZzT hJrU9FHppKdc+VpQLMsaxH4BWYV pLEmXUHBY0D2WnHgn4BKXx fQriQG4tlIBzXIwlWl2cbDekqCd mNU8cMTNuhiceUEEitZ8rPBWbeX ZaiKvgUD3dUQLfznfow992 DaGxHBO6ISNphZIfE9ZtfF5tXvU kARWkIWItH7FznKRfIAcvH563KT xkRnL4MTKbnvWpC3CzFVNa mOewLuG6s3M3Gg7yYI3oXj3nHPl 6RN40LQ77mIJfz7P7tJU8S4WcRV OguldvwzcnzAJ8DXKmLSNk aL04hPJpICwkKa1hz7P2y873DEJ gJTCxmB90Fj7aqYykQAMkeOGUyC 5hrsspk5zbcmqpUaXlHQIj PPn9SGu0ZCEmaTgaEeXzFYF7NdP 3RYF1xSAuxO3gsAcexjafpD5fYv c+MnBkBMTltwZ5R8SgGfc3 AKSorWmfZH5fqEHdXHwbMk3hmXc ipBhwVG3vEHMhhujyZPZngB5jKC ClqDPerZrcKO3xAIJrxjhw c591PaOfHQR3IAHeqWEeZ4BngX9 gCiNyRRHiLICtY3TlmRKzXHhfM2 75XFdsNaF0NJSsjsYkS7Lf NLGwdNxkQxP7x3O1Pd8QKZ5VHND 3Y1YuJih3MLShwKzeCA5oxEUvQA lnUx8xlSdedXkrTZ2iQQZg uwqfQLHnyP8mCLZwqZKclFbsZU1 fDSBqkxtwr934OfCpROR1QAYqoI QgE4RrcG0zRpKvFUIhWOHx E4ElkIVkUDfzP419NPqjQwH3SAJ enaLvS0IlZUOioKyuKwS9i4M0Xg 5PUDwvdGQ+TK89lr12Q0Ei HvxpQds5MEVcYBW5yGY5pH5oGQU mFUrhm3B2zJL8F0YulgAnjg6of0 cpJWSeUNhwO26zeWJxl3K2 AJBizGU3NVGhkAjrAhCwuI45Sjg +MWIjaHfsy3WuVxfnt3atf8snnG y7ZwKqMTQaolWodFcuWMR7 r5GvPx88A35xELvnZUPzBPVpOSI bRIMdpBfjbh6rhI0cSe7+PGNvbC O0wTE8rW4sBrWeAsT5NWht A810DbJyfWAxYrkim6ewp6tmoMr 8QvGcSBCwgmRgeAovKEB1s5SoQb 19H0BkpTfoe3AcFru1fv22 oYJcw3K6tLR9V3EsHASmjnftkGL llYzaCW9dJWLoxkspLJCbrE1aBL SzV8l4EvUkUcX3ICrwP7Xv dvT4LDLczMHuHEYzrWPXiV1obhk mt1trbdguPvNlSVYvCEo2FHc0CZ UmoZtaFvLtTET2HfE7JXS2 wFKnuT3xeZimnajolM3jGgc+UGh 9u4hdsZHkSE8voYM8AA31CO09kX Noj2R9dOU9B4ViADLpwcan llrhoLM4FTYtCUEirU82Uq0yaVn yWo2rVWEiRUX1WSGnmMQcF4LurH 0tNuGqZSPrMSDlU7WinEFy GKhsF691UFzcMsX3IZYpizVxS7F oAKZolWohLiV0f6Z4Ep7WXH75SZ 60VT50hEAnc5F9yST6V0Oi ZNTuzqiwxaejlCP6SSOiCMIgbT2 7Bb6lnOntHg2iCRIjDDE1OWWkpE NsQ2PxmJ5gIvTcMNNzJDJp X1CyzZOfRHreB887TMonMbP6RVQ nalUrN0RtAMIxiRtoTbW4x3P1Af 8APx18NW60JY17sMTpx0X9 aJE5Z8DoZCVhtmgrqjrjmUN4MJB bEDCdvC49Al3shLaaTo8xGBOcER P4XONajMDkB0UcbK0dShKs AFXjJIUgR9NmsZFgYHzvD901XRo mVnO1GTRhtnSqF6NvDMKcgRtsJq S7n9Y7Ha4PFAcjord0A4Nv PjwvdHI+QI92GKJrAA06zLZdmSG id7xpkEj5OhTgASLhWIK9fNtdWD xxz8OqICZgT79qcQHds0J5 IGN (more content not included)... [facility] Progress Note - Provideron 0 01-29-2024 Progress Note - Provider [id number] [facility] Coding Summaryon 01-22-2024 Coding Summary HTMLBase 64 YxxrceqrUSs1kLu+PGhlYWQ+PE1 FNEBaO16yeRLkdD9kN8RVNIcIGk aiFLCEGWwDYlPdszYkIJ2tiJVeR XJu IC8+ID6rFUKdXfqplJQto3G6nVA 4P12xrd9oYTolvFN0BSPyNvNeiz rac2yorOx3PPjfIxrtUxXl KLVufY30UZD1hC14Kg68iPSekZB ti6bdxNt6UrSjIONjPUQ4kFgsZK zjp8GeEICwZ74hxUGwm8H9 YWFubEhsoNGrRaGoyPX9pP7nQZt eettad1grruptDar8ab48wALti5 I0vVQ2O1QxnxZ3ZTPefOMy QiuvjNRFpG3ohoamp6zdkvdoUqB dWVQxFNb8ULw2TGSomDgtYpYnOY 67QTA2NHPbrgJaQ5JjHBAe mRuiTrY5q5P6Rt4JF1PNIzmjN5R NTUFSWTwvdGQ+WA43wr24C6SmXm zkZwe4NXCsJCL4sSK7cT1o TMXiUTmnx6E2gZS1M4DnyhStmr8 am9xeWKOiZHyyV98vwSDdv7L6AT CvoXA9LCWuuMzzPzBkkO06 Oyc+ZANsgPfou3OkThken9gmi5k omNz2JqqeJRNsufLbsRzpARO3i8 RjRg9rURCbhBX7bFP5wY9p ClCoCsB5WOixG261FoBmlRMbBbc iF51cI9IvuIN+EUMpTlo2XWFhjP vvGN2vG5KoYIZpqvhreGJh nRbxWA5pMQHxuaqjFUAkcD4oIBF vQ3v0LzMmHiP6ZPjvJ3CgWUDzgy vxUq01dI4pPxAgHtE6KLwc W7YmjfD2GAFmkEYkVAqsEYA8I82 hx5M3HVWiONUoHSS5oXD0qD1hjS lnbjogbGVmdDsgdmVydGlj XDsrAPmcW769PMOqgGbdEbFuOYf uZyBEYXRlOiAgMDQvMjkvMjAyND wvdGQ+FLQqKTG6wDmzFWRa xVAnOHivDz5loGzklFvlJI1jIYI fyqovSUGvvF1bKUCwuYApaEclDO 3uXXJilafio414VtVzTGP6 KQAwpTQqX6VwdQ7pQyYwQZHtTNI kH2NixWYtNNsnB412KSerFnW8SE PoudHhK4ShGTMgcQmnXpA3 g0V0Ca3Qy8AuqycpI8KzyYOnFkG pVvloMNr2U6RkWwwcyBK+PC90YW AaKG95KIg6KPF2kAtnQBtp NGUmL2VcrR2wBvXcDWHgRVJfHxd +PHRhYmxlIHdpZHRoPScxMDAlJy WlaWsiXU6cYs4tBDCcGIUj zPhjlCOhKyXfu9jwPKJsQQqvUX1 ehVoiD5YloKA1FXBht7r6Ch63D2 3vC9SbkUK+NMJsyYA4vIH7 vF3rVdWqJaG1LIxjO471TwSasBN aRtfrc5lqw5bkfKq7YtE2PCQwfl EoxVpdKPL1t1HsKd16Q97q IHdpZHRoPSIxNSUiIHZhbGlnbj0 usS6aUm4+CJKhsBL9dTO7eH7rMb ZdXgB9GElyS208XzAttRBn Uxqgr2wxb8sugSq3XsVzLHOoseE fkDuoNWR9v9NcUk83Y3QrwRrfw2 AvXyp5sr02qKWxv0J6oXI2 B8OfBTErxxnmtAVboJcsSY0aGZJ yihpiXUXllJ0vJUZcM0q9UqUeXs C5RSllD7KfxqL2SZTmaPZy AMGvdQGGxT7ngagli0yackpxMjN uAOWyDNf6QJl5MOTxaAtcBkHtWR Y0YtY7WQP7eDXqlP3gmLcv ddtvaX9fYds+ZMA3sJJuoKRXDS0 lOjwvdGQ+CCPxYFU5gXaaLAzvKN UutZ0tAQCxW3h6FeNeOsD3 YPhmB1TgqbN2SFKdoMMvIQEnbNT SbQ3tembyy4urjmjyOiBzRTKcNC i8MSr8BOSafGmhRuObYHO5 FbS7AFA0nPPxzO0miDvyrlwppI7 wOyc+QrnuoBbzRYB9VQa4A5EbUi b8HCVehGpdQN1zuFMdXVyk Qd1laEzhdDiaKB9tNBNqgvadw32 1TcGcy0shKCTduDOeVMziPXU4N9 8wm7D5PTCbKFFvCZQ9vGI7 qT6xxHotijwzaHNmdOpznbMdpRc bEZxnCDlwK692PDRdmQrxFeHaYU b1A6CtDyh9NGCtgHulGI6c wIOtXRnkNv8ssExblHjdDO6yLNS qxikrp114XrLwn0lmJYWauCRtEJ sqKRY5D81tx2H8GCWdHHSb FQH4lMW7fL3qeHijzmntiKRyhOq jhtZpxUmvJYndMYicQ802KUYyoM jpKoQohQc9T7XsWjo9RUYi eBcjUX2wrVFrKMgxIg1niXfayMo dUK3tNUEbxiyyl987OfRjq5zlSB FspYQwUXzaWAE9M29xe9K2 GRIeMERmTTY8uPF6gO1adQqjkto gbGVmdDsgdmVydGljYWwtYWxpZ2 46IHRvcDsnPlBhdGllbnQg FKwxCFs7G8GdRucvyBZ+LX51GTE dUW50gJAkcJZfi7sgmAc8LxQhUR AkSBN6oVxjXJcya5LxKPEf N74lrJNqw6E6WXEzhBxrfRMrIaB akOW8kE6gEIwjrslpv5dauxebPr sws6urrj65iK28U31pXWdy YZIhKUTqBHIhYZGakEsfgm1liS0 wIi8+PXRrxKH9mLD6aK5vECYvXy V4IYeiQ325HgIsaWSlOwml h1fhg0fhePh9FaW9FCIcknDvqQy lRUA1a2VyAj32M97tUEflPZBxDQ HcGVNsNSHcvZwfxn8vsL4e Ii8+QTYnaSW8tRP8hK6vPvDdDhG 1PSqbX596PiIvlPEnQykmH10aQ5 JvdXA+WCDaWcb3RXZguMjn QZ1yaJNaEJprLh1pDBO9MuNnBbZ cOKaoJ7GnMYUayivkmoanpVL5HC JbYCZqvE63Iw4tnScaUEQm xEVPdZ6wcnjfi0ijdghjOyGaWOP qAXu6ZVm2SHMpfYcdOeDnIRH5Oj Q1KLR0wDQstH1qpQasjdjt xI7nN7PoQCKdbclrNf91oJ7pMwN mWaG6YTkkJtq+PiENEcdgJ0BTPY oBQjERYDU9Z6TdHks3JOAf zFlhAF1wpXKkUPxnJu0pzXwauWc sQC2sHFZcmsubPOKegU3yHZLdwJ FvqRpuJE5hIYVmtzcjo478 AjKvQPE4NMWtrGPaG1WrkX9qJsG hWKXcXPPzC0JfvVCyRNuyR119KM olRuY5FBMzjqBgT6BzWLKm pSzeGiF3p1I6Qe5yJS6eGn6yYSa 1MX88FK16pAWzm9W6cJB8D9ZvEI XcibayldztwYC2TKFtSAEv eP97jPBzQKfsAj7vv0Q6i920PGA wDBShfZ55Ez6twNstGMGjaRVJpT 3tijhpo7bcnptlAjAyLVZr ZWb1FIo5CXZkoAoqBvNdCBA3LsS 9CKF6pSAfsQ1nhSzjbsffkU9gZw c+QmUsESSfjxN3Q7VkXop2 WDGkjQxpIE4ffVVtXBjjPd5vsFj trXnqQZ5iWPPgztqqRYYekZ1dTS WfwMJeiLoxLH4dNERrmpfp c503NeUvIRB4RGLokZIfG1WggL3 wFuAvTBYoRXKuH0HwtKOeRRwrK0 41VHvnUoI1MITsxfXxA0Ez KYXkyJgtTqG7v5P0Nr8DDE5MVNO 2P4ZbRwj6FJShgEpyLY6kmIEkRM soPy8asVfvsUtgDC1xWKLn vjfiUSJcrZ6pMLVqgNGzyFnfIW2 oXYIidmnjs276UbVgGGQ0LPWveC SeV9QwcX9eUwIwMJHaCVCb Q9LjeGNvAUoyR284TRcvChS6GUS mkiVcM5MoNVFaoXmlQrY6d5W3Jx 6TEYckE4WtX0OqpOjioAG+ GZ63kj59T4UwXrmqZrt5VWXmDJI 4pRT4gI2uLWWiKYsyp3D8tWK9R7 CkaaSxjs6ej5sfDVUdZTnc Q56nfSByd2M9JIJgiCT6MXZupDo cXlWutA23Udy+MWHltYkpn3TqEe tlr4dbw1exyHv3WzWfUJId bvKquAjeMMV2x1XgWi05Q21vZLr pRNCvGFZiYDXeJVPjgOlttn7xpF 9wIi8+MWXbfHL8vQQ7tT8k DiUbMcV2PHgwR201QvQziYKzIsk pj6flo9jauKn2MuYlWMTwcmZwuJ dzNXJ5z3UzOv41N7XheZcu l8GnFsj3eb41wBRpf6Z2hWU0K3S bTDAgbozywTUutJczQM5sRVJfgu akUUUnvL9wLBApK1c8UjZd SoY2QNgoR0YrzfV3RYJspUUpRJP blCUCeN6sxxtpg0xaepuwDnHwMT OdYLf8NYr0RFGsqJsqSkLz DWD1MdI7RJN6nOHiuY1ghNbfgte gsX1fYsl+YQs8k4tmjROoMK0naT A0XP04VQ03hTRxj0G6fLQ2 S3EyBGNlmuyxbeghhTT3ETAlFGQ jeG88Iu0hiTktTm8pOPUqUCB9RJ QcmZHqY4JbdY2qFlGlUMTw JMFbP5BagAPdKRctQ916CNmuHuR 5HCSevbCeB9YyANZsjJmyEfS4b0 F8Wi0TYX77TE07WZ34iJPh f5U8aEF1S5ErCOFqnfeqfqvckTM 8ZPTpEFFbbW01Bh9kiHkqBq4pKT PeHXH3FZDspTSkU7ZmuO9j QiUoVDSqHQLqN6TgaPAiUIjvB84 1GJgzVfU9KBKoekXiP1GzGVXgeB ieBqU3m8H1Zq1FMi28WG70 HR69vTSyf3C3iKD0P1UeVZVtorw ufwjxyHG1TIHhOXEqkM65Jl5fkC tlMd8pMHMxOKJ7ECFvtUHp U7PmtM6nSnJpIKPkFINiO6PriZY wQPtkV692ALglTzU4XEUwejLpH4 IkRLUqaCnzJrC2s2K1Do8V KUmjmbu1F8QoBufjyCE+AO71BBH nRY68aRQagBUvw4fnkJw2ExYdVK QlMGP4rKlhPQana3EmHFMf Y29 (more content not included)... [facility] Coding Summary HTMLBase 64 MrwxhhrkPFf6zUl+PGhlYWQ+PE1 FVIZkX77skDFcnN8vU1KOKPxGJa yfRKLXWKqOCjAhbvIpBG1epTLlZ XJu IC8+JG2iZOJmKmwbzREul9U2zDV 6P40uki1rGJpedSV7ZEXdYvXfwz jiv7ptoMu6VWzrXwueQkLu UCMuwH22QWK2fG68Ni23wDKkdVV gp9eqhAt2XlXtBJRmMTG1uTzlYL wve3UhYHIpV92twLZnx0N2 NBNmvWwqjKSxUvQsfET8aV6mCPi ngdmqg3agjdfiGyf5ip11nUOzi7 Q9aXX7C6LqswI8XJJsvNEf YdhzeCKSgE1sqftxt2lfouzjIuX rHNRyYTp4WYy4BQGdpJmaOaArHK 19UUO2RIZwduTnJ4VpZQGn kSynDvT0f0B5Cm2YV8UHDfjaN3U NTUFSWTwvdGQ+ND20lm50G3WyTy vaWta7LKXhSPO3hNO6kN6u KKFxGCdtn4O1jVN8Q9NpumIbpa3 tb1sbWROfKRqqZ66snGBmi3A8GI HntOL7YJEarBriHiEoqI05 Oyc+RBDpqDgnc7KnRvfmk7msu5t lsSb5RljzMSXoagAnfQghEHP5a5 AsSn7wKIOraMD7gYI9zO1m ZnXsHvT2IOpwY314VkXowMWxBqt fP33fZ0EqmAF+RNIvOco2ETUihS mlMN5hP1HiWDFbysbswSWi wQtgJO2mAXBhhwujPIPibX2xCYO nY4x5LqTpCaB2BBrgA0PfBRBykz eoMe11xN3hRaMdPbA9LSaz L2LjefN0VYFwsUJjTUboAJR4G46 yu0Y6FTYvAZWiFGG9dYK7xH5akC lnbjogbGVmdDsgdmVydGlj VDpbQRyrZ406HDHegOqyKtHnXYn uZyBEYXRlOiAgMDQvMjkvMjAyND wvdGQ+NYXhPVN1dBtpRHCq iYJwYFmwLk7gzXprsAptCD4cDGT nitfxGFYnaS9oTAQbqLPqoOulWG 1dVKYmizxwh275TyTsMMO2 JMNobBYhE6OveC9iQlFzJSJyJEZ jQ8FizGSfKLxtM607MAgnXmS1LQ RlyePiL9OgOEVxqDmdUpD1 l6P2Ev4Zv4UrvypmD5RtdQZhFfW jGaxgUVj2D9EeUubcwJP+PC90YW QvXK55ZHq8KYI9dQboPYxv JYQxJ1KpnJ7aXnDlZPYaMMTvAbw +PHRhYmxlIHdpZHRoPScxMDAlJy FclUkpWP2hJn9dNQWcWFJh iGkscBBzKnTdd8ksGMPwZHliMX8 cnXjpH1BtsGA1GUWbp1z3Qn65S6 3lY1YpyLY+BEXizBE5jES1 xY3dIsFlYpT2DCdzC017BjIxgLF iMiuwx9ilo1gpqDj6XjX9WPHfuc BgoIxuBNU9q7PeVh00E57i IHdpZHRoPSIxNSUiIHZhbGlnbj0 siX6qHj2+OVYzjTK3jEN2eU8cZq ZkPrM3WTpmM244MzAqrWKt Tugch0tjl3toaEn8XvNnWLUvndR ctMalKZY5z5OgEb86V4AhlOdzx9 SqVkc9gl90vCJhp5V8lZU4 V2CuSIVnexaueQRpfRipEA9aSAB gyaycRGTxbG0aYCQaE5l3HnFoPl S7PBuaJ7MmduK2KMObwEGz XYGflOYNoE2wixxhn7rfyphwGqC iVSErFTe6BZc6IDMnzFrhZcJhHF J6PqE3CBO9pYPljI6hjGmd jxgeqN5wYcs+IPP4jNXnoCKKDH0 lOjwvdGQ+NIQoIWW5dUfnYMfmPD XskR5fHTWwE9k3TwIjWxY0 IPwtC2CaznI7RZXitOVvTQXqdJZ HyH7hqyoye2rlbiupBfXlOOMnHI q6PMw9LXMpgCtaEzNyYDR4 FiS0ZWY9pTReqR0epWsqxhchhH6 wOyc+EvgxuMkmJZV6NHo8S7UsUw b2ENMofUarVW5xaYSzRQvk Df3lgBgucDltLJ8uOESozxvzf04 0FbFkf5btEDMufMFxOOwsFBP8V0 0rn2V5HDKdIBYnRER7cXZ0 rQ0dtOjdnnycpGBhwRvvunEsrQx mHTqiSFsxZ209OSRbrKrtYtQoAJ a2Q0IiYct5BOYurYsxUM6w mPWhGBilOa8ijEltuDkpYO4gCQG fwgohp447ZpXcn8qwJIBljGBlTS veVDG3M23qa4U6BWXgTZBp QYK1eOD0wA3ufKxtwprapHSzsAx xobLmaDwtWWjqADtyM330XJAlyR psJrXraWw7K0NmOfk1RLEo xOnkMI5tnQSkHCylKm5qzVadnJv yQR2iDUIyaxfyp063JzRpq5zpVJ GptILiJDyqNTK2M17bw4J6 MOIqHNPcQBY0rLX8qX3xnVhnpcl gbGVmdDsgdmVydGljYWwtYWxpZ2 46IHRvcDsnPlBhdGllbnQg LBbqAQj0T2RhXqucnTL+NA08QNI cUG64sRBwjGGhz3zmdWg6PfWrZR LqPWH5jRaqYLlts1SaBTUf Z12zvLSqs9L9OGIpbQgpoXGsCkA bsKE1rJ9oEBfbzimfu5ooryuwQe zov6hfca93wP22X32gIAui DVYqHEYzNERqLEQyqZukyb3dfU9 wIi8+NIKvpPE2gBP0kE8wWFWkMn Q3YEgxJ971DaAteDGeZuca c1dan9dfbLp1RlI7GOYkkqRflAj cTFT9i3XnTj09K47mDJixESMmAY NfPKPqQYWwrJqeqy2hiR7u Ii8+LTHtbQB2gJJ5kU9bJqLnAlN 3ZBdoP774YnCdaWSaKrenI93kS0 JvdXA+IKOhUqb1PEPpdVeq VB5odSWtZXezTh3uIDZ6NrUsNiR yJMslU8UqHMLcjspmuqjcjQA6KX XzVXTtkP80Er9lyRemMTXe cRIDuP3qjheys7kgjblxZrYcKQZ pAZy0XPr8TOBxiXtzFyBqNGC9Bw H2QNK5oRKpbR6elEgpfyws qX6pM5EsRZNcsoghZd49fM1pHhD rNcS7KUweTbe+QqBOHjvhG7KOJU vMBeLXGRM3R1AkYdr9ZOZh yEziII2rsVElWOmsWh9vsAardNy fNG1fHOWtngvoFPRkhT6qLPWxwX ZxaMnrAR8uIBCnkuwjh521 MhJkZXA1KAZisSSiE2BihP0yIpX pJSTxVQHuO1RbvKUcXRkzH238AI ueZcP0XNUqkzPtD3PpHTVs cVqpRyB6x2I2Iy7rVV8rTe6kLCr 0FU95YK53oBIxb2S5rRH8Q6WkUS EupptnpridfEK6RLCqMYNt tQ96dAZuZQmeVu9qq1S9c259NVH pOUXnsU09Ip2khNcxXTBdmXPFoM 4bdrocv3gwlmulUiIzYAMk QFr2CCq7YULerXxkXmHvCSF0NjO 0YOV0oZNjfX4ocNitzjbcwM5eRj c+TtYjIVJyobG5L8NnGjw2 XIGwqGnuIA6cmRYhRZnyEq7jtXz wkFqaUD7aRADonjzwHLApcZ7zXI QayOHyyJrrFX8aMRSrdunx n532TwTiIQK1EPWixEBxV4CwfB4 rVmPyYEScCTJhS4XwbQQoFLdlR8 86CMtpDiG1VHHqqiBsD4Bj ZWFfiYclRhF0e2A7Rb6DWA6TYLQ 6X6UwHvq9IUOlvSejXI4soHWhYF yhFg1uiIjjyEwmWF5zOXMz xkcuDVKegH9iXRJdgEOvvTiqXO9 qLMBnrdejo906CdYyQVD0LIZjoX IuT8TmkG9kLoLqMOVlXNOi D4EdnFIfXUzvQ161CTofDmY9UOL cnpBcW9XeRYOnvSlyKsZ2q9G5Mp 5PUDwvdGQ+EP08du46T4So RmwpNtz5PBKwKPU4wWP6vV6nVHZ fJFslk6T9pNA4C4WvsrSzxa2fc3 laVGSxJWhgN46aqPQct3D9 XPGetVJ6HVOvfZfmHpYgzP18Lfq +ESStbFiyq4GqYshnr3lpm3bimF i1NsEzWOZtasObkGfvFBM1 x6DcSi26V04yPIllKMZcCZKlMQW wDRSntJcevy2zeQ2dMz0+PGNvbC Y0fTV6aT4aSoLdAqF2WMrb J739LwRtyMClLfmtr5rml3tkaYm 7SnOlJKYivyAteEylNYC5a4TxGe 79E9OlaVmzq3VzLnq7ns34 cFFbs3G9dLJ3P6WaPIDupksfaNA xkEegWS0yHOAxcxlfDPQmpH7xEG YpE4u1YkMuVbA1VAobZ0Gb llY5DCDxfWIsUHExdIIDjH8upci eb5byavboKzSwDORqTXx2TAz0LV EbcRidUjVqIAH6EgU7KJZ8 cNPrsI3tsTikexcfwL0oFts+UGh 4f0jysLGtJE7cbNZ2XL99DY20wY Eup9D9vPW3B2ShWKAldbny xybftSS0UNBxUNNdaU86Oy4rsCe gFy9kDLGkSIL3HCZkmNSdG2UyxE 6iEiMmVTJeUFSnZ6AbfMNt GBomS757GEihSgA8ZPPoqyIaA7Q tLQIruGyvIxQ1j9X1Oh5YEB00MB 21IR11zPFvr2F9pSJ3D5Ux QUHanjalfwmbnMQ3DFNoDVJjqY1 6Ud6ayVbmBx3dRDVnQOJ3CMMdeC JdA3JnsS3eIyOsSPFiGPHy L5ZxgQGwXZdnK284AUbfPrC6PFW bilFlO4GySEQnfIskVpA5b3S2Jt 0TKf22CN04OD22oPRzw5D9 hPO7Q3XhNEWtuaxvgxywtOW8PWL hIOOmeX75Bc4swBrwBa5vHYXrEF K9BYAdxQRyF4EelJ6aHiTd RFXqJBYuW9EtcITjMYvqR021ZMl pVpV1OPWanrOmF2AeZVOriPumZj R6i6Q9Xe8SGKkuqdr6G0Yh PjwvdHI+AS94WVNhUF75tWMroLW xp3lvnYm6FdHxAZUiVED2rBmvEZ tly6OwIRZdJ75mqFXdf3M5 IGN (more content not included)... [facility] Consent Formson 01-15-2024 Consent Forms [id number][address] [place] [address] Consent Formson 01-12-2024 Consent Forms [id number]#[address] Controlled Substances Agreem entson 01-12-2024 Controlled Substances Agreements [id number]#[address] Inpatient Patient Summaryon 01-12-2024 Inpatient Patient Summary [id number] [place] [address] Patient Discharge Instructions Name: LUCILA JACQUES : 1990 Patient Address: [address] [place] [address] Primary Care Provider: Name: Provider, None Phone: After you are discharged if you find you have any questions, please, call [phone] ext [phone] to speak to a nurse. Discharge Diagnosis: Prescription Information: If you have been given a prescription for narcotics, seek immediate medical attention if you have any difficulty breathing or any sudden status changes such as confusion and sleepiness. If you or anyone you know is experiencing suicidal thoughts, mental health, alcohol and/or drug addiction problems; contact the [facility] 17/04 Crisis Hotline -Wytz 4HDOZ dk 860377. If you received any narcotics, sedation, or [...] business decisions or sign any legal documents [facility] would like to thank you for allowing [...] JACQUES /Sex: 1990 FEMALE Med Rec #: [id number] Physician: ALEC PATEL MD Financial #: [id number] Pt. Type: D Room/Bed: / Admit/Disch: 01/12/24 [...] Sara L RT (R) ARRT Role Performed Panel Installer Panel Installer School Counsellor Time In 01/12/24 11:40:00 01/12/24 11:40:00 01/12/24 11:40:00 Time Out 01/12/24 11:46:00 01/12/24 11:46:00 01/12/24 11:46:00 Procedure Block Nerve(Left) Block Nerve(Left) Block Nerve(Left) Last Modified By: Reba Liang RN, Kelly RN Weisenburger, Kelly RN 01/12/24 11:46:22 01/12/24 11:46:22 01/12/24 11:46:22 Entry 4 Entry 5 Entry 6 Case Attendee Mason Garner RT (R) Dina Malcolm THOMAS F MD ARRT PROTECTION ENGINEER Role Performed School Counsellor Scrub Personnel Surgeon - Primary Time In [...] Mason Garner RT (R) ARRT, Dina Malcolm PROTECTION ENGINEER, ALEC PATEL MD Last Modified By: Reba [...] E.290 Evaluates (more content not included)... [facility] 01-12-2024 MAGR Preoperative Record MAGR Pre-Op Record Summary Primary Physician: ALEC PATEL MD Finalized Date/Time: 01/12/24 11:49:22 Pt. Name: LUCILA JCAQUES MAXINE /Sex: 1990 FEMALE Med Rec #: [id number] Physician: ALEC PATEL MD Financial #: [id number] Pt. Type: D Room/Bed: / Admit/Disch: 01/12/24 [...] Signed By: Sushila Quintero RN 01/12/24 11:49 [facility] Patient Handouton 01-12-2024 Patient Handout [facility] Test Urine 1on U Preg Negative [facility] Comment on above: Performed By: #### 3 [id number] ####[facility] (DEFAULT)[address] [place] [address] U Preg Internal Control Pass [facility] Comment on above: Performed By: #### 3 [id number] ####[facility] (DEFAULT)[address] [place] [address] 53160 Progress Note - Provideron 0 01-12-2024 Progress Note - Provider [id number] [facility] Coding Summaryon 01-10-2024 Coding Summary HTMLBase 64 HvmyfqnhVLk2wNn+PGhlYWQ+PE1 NQHCwG30yrAFymY3uU4EQKEhGUj tuPRAGIUnPGaPbnqLcVD4enEUeE XJu IC8+FK6qUCYyRcthqAUkc5N2wFD 1S55pur7mRQrqlBF3HPGfNaUfqk drm0fkzJm1TBdyLsxvFdHh FFByaP99CKH2sF10Qo65aZRsyMK pj2bvcVm7UjRgGYEjROP7kEepOT wnh0WrQMGuH04frBHjm6Q3 HSUwrOqdpTDxHxTvuVI6eK9gTOq smdbpk1gwghruGhi3vb45qNFir6 J8vUO0K9NiqfA7VYVuwKHi AgrjaQCUbK8hljioe6fvodtiZlS sHMDhUVo8BSl4NRYclVhfIuHyDQ 85LUI9MZGhriLsM1KwBKJk eAolGwW6f4B8No2YV3AMBinuO9T NTUFSWTwvdGQ+HG06sp33J7HuHa scVdl3JHWhJYY2rHY9bZ0q LTOwDYhjh0I0eUC8G4YumgQfim3 tb0pyEQOgCWimJ63scQUfn4P7IO SksXN0DGHqjVpfHaTcqK84 Oyc+SYTpgQpai3DlAoguc7czy4d agDv5CxrcTULxciFxjXntDTE2y3 BaFl4oDXPecHZ8gJK9kF2u UsMwToM4YDbyI065FsAaoPTcNnt iF91oN2HzhPW+CJZaGhp3WKYaoW xzOS3lZ9HwEJOylnigtOEh iJvwID4wTMXdpqmqVLRtpK7yMJG jE6s7LeVrTqI6MUysL2AfTUSztv auAa49yX0zPeBvWjL0RDhn T0YyrhB2LIUagARoBFlwWCM6T90 rw8K1HFJlAJUrKEZ7zSR8lJ2jdZ lnbjogbGVmdDsgdmVydGlj WXatZKdmR136JVYjrSgyTiOaRUm uZyBEYXRlOiAgMDQvMTcvMjAyND wvdGQ+RHYwYNX6xGfrQSOi vXZdWLkuMf9emWbqnGrqKV5eRKF hqvvaEBKuaS7aXWBeiAGhaRmrAE 5lKBEqtitwa970TtUmVWH7 AJVezQGzN6LfgX3iJmRjNMJpPEX zG1JjwNYmPCvoH599HZbfYyS4XU AsjeVaU7MgMXRyjXsgPhD5 b0Q6Lt0Xc2DfonvgK9BdcYBdCdZ bZvyhAAy2W1DuUtnaqSF+PC90YW SoZT02EYw4LRW9mKzzDOml RFJcK0JhnZ9jSeFnTHVdDNEnMua +PHRhYmxlIHdpZHRoPScxMDAlJy PqtDddEW3vXr5oVNVkBLCo tDuvqVDaZiNbz7qjNAWjVLzxPC6 yxAoiJ4XxiCM9XCLyy7p1Es53A1 9oR3RboQX+WAGcfYN1jYC6 tY0zIvIbSlE4CAbfH022JuBepWQ xFfeyv4jvu9iwqAq7TsG1QIGpkb XocIqmCNC3z4LcNi89A19z IHdpZHRoPSIxNSUiIHZhbGlnbj0 njZ4lOc2+ZTNygPF5bMX3zB0dZq AbDeD5ICiyQ123TsGjoSIo Zyrwd1jys3dmuTr3VzLaEJDjdnP abTguQJY3o8AxXb82X6VzuXddj7 BvXqc9nc24vZNvl0E9oOZ6 N7EaLOBzvxliwXJgsOxjFY4zJJR qhzlkZFCruG7bLASdH3u5EdVuJp M8HXmwW2QfqrN1SEMksAYg MEEclIXLnS6cfodhx6oaiebjDxM nTZBkZZh6KGw9GUWkaZmwHvEtVY B7RnX6ARC3fSRknY3liJyn iexyqP8vNgi+SLU4jSVraFMNZH6 lOjwvdGQ+YAJuRFJ8jZgyJBhmYI IivH2mSTJvF0k8MsXsHpF8 KXzrG5HisoN3OKClnGLkIWFrrIB YrP8dopynf3fgvmacIoWnPWAfVZ w6XOd1ESAgwMikUdGlXSZ0 YxS0KEK7qENxeE7zwVcjhihsiE8 wOyc+VrknwCieEIQ2ZIn6R2OoFn z1CWTvjTgmQU5abEVaBIll Cv4htPwcuJilOZ4dLMAqygmwk09 8YlKpm4khAWMebRJdZDfjXDV5V0 1im4F9RCYoCLTcHNK3nJE9 nP8auVhrpfnvxWGlgImwhzTszAo uRPstZWjhI638CNXenUbhGwSoMX e8K9XkTpd7GUSaxAivBE8p tMSaWPruBj4wpIpguByzXY4aABU yuyjmm772ThBqg9ljRDYqrUNwFU qeWVS1I23pk2I1CDSvZEUu HUC0mWO0gV7bgRqwdjzeeVMpqIa qdhZxnRcoZPdrGPonX286ITYchG omNiPoiVu0W5NeAut7RMRa hUjjUZ7otCCyIQsdTd4ybTcfyJd jOQ6aEAGdfskru817VcTwr6lgAV YrnBJnBZtqIND4C34do2H7 HWQxEAChRYZ7rGO0mT3xvGjjmht gbGVmdDsgdmVydGljYWwtYWxpZ2 46IHRvcDsnPlBhdGllbnQg VUosHLs5J9BoTkwsoMD+CT35SXO sFW51xTDwiLPbr1xhkZm5GnUhTT XoLUX0jVvjLDfsp6ZtZJRu B30unGKeb2D0IAMeaHkbzYVzTrF ojUC8gX6oVIiyqbxdj1ihdrcmNa twa4rqyh14bQ76D45bSZtb JKGiGKSaHFQcVIPowIbpgw3wvJ2 wIi8+UVBpbDS3fIG4gZ5aKSPsSz Y7LHgbO926HvCytSZaTazh u2vov4nciUp3RaT8UKFxxcQyuIj gUIJ0y7RkSz29A16nIAhbNUHlZK LtTWMeQAXspLdtvl9ivF6p Ii8+YZKkmLX5qNQ2xM1kZfSsAzH 1ZQncK063ZwFauZJwTkrpD87mJ7 JvdXA+BSDfUwr0UUHjkLjj JP7zdHKiBIbnTn3qNOX0PiQxAtX kIAnxM3DxANWocjopzztogYW9SH NvAUFmfF34Lo1nsZmfGCNx gBGQfP1ebyljc4oiizhsPlWzJEA fLOp1BYg5JROekDntKgGjZHE7Rr Q6JMM3jBOttX9pbEbhyatw hU2hF4GsMQTmibrwVy14oV4vRcL wFeX0PPklGev+NlRHLwakU2LLRN bQOdDRBDQ3O9LkRnb7YRQu eZylIA9ujCDbRFriTe1moUabfQf iFN5mSTKrgxroUDIlzP4kBXBvdA AnjNziJE5zZJFfgqvel049 JcKmSZF6YZGccUGkO4QokB3uDsD bRDYaKCWmU0VweMJeTRruB028UO gyYvH0WHRhdxXyK2TlOJHv lWczOeB1u8U3Eo6kEI8eWi2eBLg 7KG35TQ12xXKep9A3nDJ1C9HkDZ WifcldrjfdaMI4BTZwYELg jD53oAMlYGehQv9bu6K5h328BZA qDBMjhZ95Mq8kyGujPEMoqQREqR 3ixnysm7kgaaeiWpKsTODa HRe2WWt6DDJveJxkVePhLRQ7KeK 0YQD1nLAlkC9shAztbxrrfU0xTb c+IyKiOZAdpdK4C9XjGzm5 MWQegDqwBX3xxKKrLWgqZc0mlQl oqZorBR3dGIOryrbvCNUokH7aDC AchYIbiMgsMM7uYUNpgvvk q016BfBcNIN0SGXtjNXyB9OmdX9 bSsOjUISsEBVoP2XfkBMtBBtiG7 51CHceHcQ8IAAnzcVdY9Qu XIKqbPavEoE9l1A0Ch7SKB6CSHS 9N4PjAke8OULhaKegRR1brHEcXB obNb3enVkheZfpAV6mJCFd lkefUFUlvU1yYCXjgZGvtAprTE8 bSSTpxyatw669TuGdQLH8ZRBlqG SaM3EbmP6mFcDxOZIaDKNz X9NodUXgKEnoW948PDlrNoS3QWH oynMjN0KbXRKrkJvlXqL8k0G0Jj 5PUDwvdGQ+BV16ak38V0Ot YxjeScb1KFAlOOC6tLA9wI7eWAH eXUfrr9Y4gTD9A3PuopPssq9pw2 jfHFMeNDibZ77tgVRhf7T3 USBmtBA3JRTcrQghJxHhgX71Ntb +UJEonWmtd5PeNfejt3crw6dsgN z8MeKtLPHbjnKzjFyzWMF8 u7OaOl49B17bOYgwODNvKCQjALI pZUBgdUywls1feG2jOk6+PGNvbC J7zZV6iS5gZxLcVxH5LUmv Q829ApJzpTOfMrjxt9zpr7hulGn 1GgNxNIDnlaJvbCgtSSK8w0SqNw 18X8LszKiyz6ZgZnq8no17 zQFbg4V3uWR6N2JvKJHfpzuryDK yqVdpMH3lYZHezcahIUIirE7yTA DeJ6y2PzSyUuR1GOkvP8Cv kuW1WIMbgCIbZBOjcFODrM6hvzf dz4nvjhqrIiUgGNIsMTm8OPl4IB UfcAkgTfZoLKF6JnA9GNH1 lZBouT7jaGetlaglmZ6qYsu+UGh 9w0dujUUkEJ7bqDL6OY59PI04gE Mmj0S6bAI6G6YjEEIncqib jvsfsLW4AUGrPTExlK94Ak8rkRi pYp6rUBGtMLO9OUPdkGGuP4DndH 1iNlScGZEzLVLqO4WrtAHw HIabF346PHksNyG8DIVycgThC5V hTQTqfFmmUdD4z8C1Rn8LNZ90TK 52DO07iVFho8R2oBB3J7Yg FSKulbvduidytFM2NBJnTEDeoK0 1Dp0ytMgyHc9dVLUdUZR3ULSswK EwU1AryH4vVtOdZDWgYAZc U0IhaCVlEYpbK561BZncXlY5GMX eumYuB3HhSHHcqMibLjO6x8Z8Yp 1YQc34XD91XW15jMIrs9H9 kGV7P1YzJLOlzgavxnmphEO0IXP eZTKveK55Pf0hvQawIr9yZWLoMT O7KOSweSDrP6KlhH3pHvMn XZFlSWRsN5KolRTbJGzxC950JUd bWiM7EEThziKaM0YbCSOesTnyIf U8g4M7Zd4OJAuporc4C9Bf PjwvdHI+CL08OZOiRQ59oFXlrKH ao7jmsCq5XdRgBNQkCZN6bDsbFO alw0SrSYJhM05fpWKny0J7 IGN (more content not included)... [facility] Coding Summaryon 01-09-2024 Coding Summary HTMLBase 64 IebfohrpTJu5gOf+PGhlYWQ+PE1 VBSMdH74dzBSlgV1rT7SWTVeJIh eoTOOEUFoHRgCphwGhDX3jsFZgR XJu IC8+IM1iSMKmTbcwnLFny3L0yLS 6P05irc4yGMrzyPO5ANJsKnAjfl nvc8lxbDc4RTzxDjgeBrSe FCJnsC85IOY8pG96Zw12xHOvsOX nb4bmsQk8EzRwTIVlBCT8pFsbQN qxj2ImJXOyG03pgARed9V7 YRRaoVstiWQfUaShqGQ6wA2hNMt kidljz5pjtoxcLte5sr60wIZwu2 H9qYM2N9CssyV1KCSdbCCt NuhhuRLKrM4ejbkum7fjtpcgBbN fUEJkKIt8GTd2KQAsjRqfBxZvYK 30RHG9DWUrujDwP0XiVJHa wWxmItC2x5I2Us4MX3XPEedzB2I NTUFSWTwvdGQ+SB86ey61T8SgUe zuNqg5HLNfDQW6jFH1dG8w YNMjLTyes2U6nBQ1Q8GhrlQfta3 dc3atJPGgZXcxM54foVGjr8N5JT MkkBO3GZEscWwyHnRuyG19 Oyc+IDEqaTgmc7YfWodmn3vxv1m wuLh5UyqrWOTlcaJxqYfeEEH8t5 QhLb1iZLZvyKM9pCQ5mH0l LwOzTyF5SBibS790PfPoqASdLjo mX70dB2TsbWT+UETwZta6AOFfuD guQV9gY4PsWGQlgapgbSHg uBvaPR5rBYKddrdoNVAqfZ9uGHF dF1q8RnHkUsW6FPjbL1VjLSYhie caLu00aU1uYxYuZsH0KLte E2VbbxB6VDWpxMRhKQuvIZE9J44 wt5D0LPTqDUMqACB5yJZ1xD5zyO lnbjogbGVmdDsgdmVydGlj RMrcFTgmW591REXlsXhuPgZlXNo uZyBEYXRlOiAgMDQvMTYvMjAyND wvdGQ+PIOcOPY1gZhvHQEw eWWdXHxsVc1pqGbpkQlsMW3pOTO tadsiRUVzqN9xKMPusNPsvBhbFI 4qDMXmyarva085ToQmPAN0 TCZxkKIxP8MxfU7mXlWcLQByPNX aR3NctNEwOMkbW747IByaJwV4TE WfofKhQ7ZwQHNjaEnaVeE3 a3R9Tn3Wf1HhizakQ1RyzPKfIpO mNabjSSc2U1AkXcvszRT+PC90YW HuEL29YOt1HXP0cUidSXma LNKuZ1EnwD3gWfReFVYsQYNeZge +PHRhYmxlIHdpZHRoPScxMDAlJy LuuZioUD6rRm2hLOBuZXMk zXligYXxPqDzo0efMWFtHHcfJB5 ceQttV5IcwNL6BAEgv4v1Dq18V3 8kU1RlgLO+LQAwsLG9eLR6 nC8hVbWjNpT5UYckP866UlAjhYD xZdbei1nsu1eqfMw0FnT6SJKvyb QalFlsAIR1b8RvEr33I05j IHdpZHRoPSIxNSUiIHZhbGlnbj0 lvK7qRs9+IBYggYX4vAO8rA8cIb FeQqK5XTprQ450RpWgpCQo Yccyb6ynd0kwiZa3YuPfCIVmghP ouDdaHTX3k8SyRq07Z3BudLmez9 LlLrk4gt62wBVsw7E1rUP3 X5OeUJTefkesvIKovFjvXX8jMBG ealknECQjzG0hWKBzV4m3UpEqEz K3CUjnN7FbzgQ6ENYiqZQk HQNncDFJkD7dhdgcq1pslwujCzH kGBXmKMl2DSp4LWWnnOssMrFgCA F9GcT6PNX4uIZlaZ4xcBcg wtjpoI3nCgg+NRW6aWRciBRBJU7 lOjwvdGQ+NCKlVHY6kCmfEKenIT CvqA0nRTVqO2b0OzWgNjC0 MRsaY2LsbgK6RDTtbOBqEXZhtVP EoT0gyxqew1ubjgvhQnScLJMjOZ p7JCj4SCAnwDqdGhVlNEL5 BuE9NMA0bFZtrQ1wzHnqposusS5 wOyc+XalmwQyhBVZ6DDz9Q1AkZs j4HDAndXboMX9qtHQsKXho Ha3fhWvvaJwlMK7eMTKejkoou97 3ZxOzs1dmWWOnkUAaFSgfIQA2E1 1mj6F1ORAcAWBlSWJ2yNP9 gD5rzEryuxigrBPymSwaddHtxVa vHMxwPRvcA776FTMmpSvrRlKfZX q8Z2OmWxb3NRGfbRytVA3e kBHyKFrdAq2nxMlktPriXG7gJJG yxxraq341ZjUat7mqIWEeoXKwLB acJBH6Q52tt0R5HWRdEWLx AXF1sUK3fC2ssLhfxvnahVSglTa yfvXlgUgcUUpvXOcsM956ZHMmxJ ujHjCuhKs1E3VdLiz7DFKl aJisSS0kkDMzRRejJt8meKtegOo wUF7nPOPktjakc150LkNqk0dhNS DprARbSZiuHVP7Y03rn4A9 PNBnYLUoQHG4bDH4zS4wsZacovj gbGVmdDsgdmVydGljYWwtYWxpZ2 46IHRvcDsnPlBhdGllbnQg MYkfSXd5H7TcByenrZR+BI76VXJ nXR52zADfuEWhc0whsFj4CsJdJY JqGQC0iKscSQqdn6AmOHBo X06scDFag8O6XYQxpSbriEHiOtK xmUI5aX5uIJmkxzqxj3qrqiuzQn xwv7zspi33dZ88M31eAAoo DWXrPTNnKOLiWHDqdOnaoo8giG3 wIi8+IBUbkWC6nEA6jT0rTNCvQg A7KZzdH262OtOvpVFaHjyj a9bsr3aszBq1IsJ8TPIscnScdSw cCTY1g7VxYr42B96lGSqhIORkON HqVIGfVWSbmCveji8ihL6r Ii8+NSHbcZM5pKB8eW8uDhMkStF 9JOwjW846JgLnxOHzIhlnM68vK9 JvdXA+CHTeRhm6OZLrwLgj XD7neEUgEVtnXv5uIPE4JvDsGvH fAYcmN6CuTHXtlqrnryceyEZ2ZA IbEQHdtF77Wn6xoTdcNGEq gPBBnN8ssejva8gxnovmPfKqISG yLZt7KYt8NAKmpFikUqDeMMC0Ym D1WMB2bDMwrU3coAagxzyh mL8eZ7NdIXOwudpbIm18cN5zOqK oYfO9JSfyHwd+XyYBZcfxE9XKDC jNDxXLGKZ0I7CsMjy6IMBv cOfrTJ1kaYXhSYimKp3rnNjrtBn xVY7zLYJmkyfbYASehA3bMHQlwT MlqQgyUP3gJKDjxmyzz597 EuCzXPA3SQDwcUVdA5HquB1xVdA rKDRyTDGrR6YsiQYaUPdqH670JV uzHjA5BKUmczBoV0GqFJTp xNtjTgK0i1J0Pm4oUY4oLh0xBNe 4IQ22KD94aBXjy9I7xSP7S5YjLL YzsjwolpekvPQ1RWUfOJQq oW90eHSpHCurEg1ln9S7l106ZMU aMYBniJ33Jr8cvSirFPSiyYWJjS 4hzienm9vdnpadDiRvUHOv UXm1APq6SUUrtMkwUhPvGOR4OxA 5BUU0nKRjtK3lqLvgyycnvU6dDe c+YeTrKMZuplN4X2DiLmu9 XJMgtLuzBH7bgQZwJVceHt6atFn knZfjXN9uWNQhqjbhNYMhuP7pYJ IqaBVctOuyZS4kABBxggnw l816HdLqBND7NGUzhGRrQ8EmrC2 lMlLlRSMkEEGdY5WimFUgJTjtD9 99MSooJmI7HYCndaJmR9Kd IOKfeFqiRnK4q4G2Ux6SAZ5DBJJ 6U1KpHlg1HCFqnGftWE1hbOIhUP srKc5ysOcneJpjLG1tREKa hgdrXQGotF3fLKHmoESujAelZX4 aKBSggfqxc479YjLiRSB9BIUqlA JfU2SahZ1zSyCrUMJqNLZq E1OdbXZlYYljK131KXwqLdR5YBX ddhBqT0CnMYTdhIahIyW3q4V9Qd 5PUDwvdGQ+QM13me08A0Gd QpsgSrd0EYQqPZW0dMR9jP0bEKK oSZhqc7B6cRR3V0MsmvEitq9jk1 hoFPNkMPwiT10pbFKee8R0 YIHmcFQ5LVXeoWwcXhJcjH03Trv +YKJmpWbxa2ItVxwqj1ocz3mgwO i7HoZwLIWoxyThjPqaBUT7 z7BaOz47A76cHRobTGBjMTXtXAJ yGIZoaPfulr7aaK3uOl8+PGNvbC X0gGV1oA4lFmMnQaV4BNvz O129DaTmbWRfCtvlm7xun1iuyYi 9YnZuXOZotjNdeTweNMZ4l8RbNa 05S4TocFsqn9XwJcd9dq07 jFPzf9L3kUD0A9OaSCKkpednhTI gaLizBU0tOVYgpulzXUUvkE4uWS JmV2t6TcWdMiS7WCkhU6Mm blP3OYEozBLnWNXnqCJMkU1mvyn ih8mprkzwYcZuSCWuEIi7ZZp3AU RprIvwEmLhJNC7TsR3DHX1 zXLtaQ4oiYktlwzzdH0tAqz+UGh 7w1zhpCTvZQ8wyNG0NV35JE52aY Xls9F8yWY7I0MyPQLuzeem auxmuKB7PJSoXIOapV07Kp3kbRk iFu0xFXTeSLE8NGVjjQIzG7OpiT 6gWsHmCHPtHPJdU8FsnMGg JSksV399TFhwNuH8EMMntuHxF4O oJMEpyAeeNoD8d2L2Vy0KVW64CF 76LS07qMSxr5L5gWQ9F2Nz PKQhlzvywlbpgNV3HFSxIAPrlV4 4Cs5tjXnzQl9fUWNkWCB3BECvaZ XqA4LreH2bCbCcGLVkCBAd A0AuaJOwPNlaE980YXfnCjT6VUZ sabJkQ8RrWUHtuLjaUoO7x2Q3Vx 0HOb02JJ16GL61vYQks5C9 aOR9F5QoEYWqfdbjuieqiTK5MZH rPWCrjU63Og6yuDycIn1ySWWoRX L3UIRfgZCwP5RkeJ3wNzJp JFWrAWKuE1SxmUFnGNtcB002KKn lWfB5CDSqxqAaZ1YeAIEaxVscEf L0e4T9Gk3NKWtgvet0T8Zc PjwvdHI+OG99DMQvFN43eBTpbLN tz2fxwVc8FyVvKUVtEPE4qSijTD jan8DpUFUdY01niKNuw4J8 IGN (more content not included)... [facility] XR Hip Complete Right w/ Pel vison [...] MD 01/08/24 3:46 pm Technologist: DARLEEN MALONE [facility] XR Sacrum/Coccyx Minimum 2 V iewson 01-05-2024 [...] MD 01/08/24 3:46 pm Technologist: DARLEEN MALONE [facility] XR Spine Lumbosacral Complet e w/ Bendingon [...] MD 01/08/24 3:46 pm Technologist: DARLEEN MALONE [facility] 08-23-2023 Telemedicine [id number] Lior Green in 1990 F Date Provider Department Center 08/23/2023 [facility] No family history on file Level of Service:57934 CT OFFICE/OUTPATIENT ESTABLISHED LOW MDM 20-29 MIN [facility] 37on 07-11-2023 37 Follow-up with famil y medicine as directed. [facility] Telemedicine 07-11-2023 Telemedicine [id number] Lior Green in 1990 F Date Provider Department Center 07/11/2023 3378-[facility] TELEMEDICINE [facility] TELE [facility] No family history on file Level of Service:19325 CT OFFICE/OUTPATIENT ESTABLISHED [facility] 10-19 MIN Reason for Visit and Comments: Headache [52] Normal [facility] HEPATITIS B SURFACE ANTIBODY QUANTon 09-01-2022 HEPATITIS B VIRUS SURFACE AB (MIU/ML) IN SERUM 3.83 mIU/mL Normal [facility] Comment on above: Result Comment: INTE RPRETATION: NONREACTIVE<8.00 mIU/mL INDETERMINATE8.00 - 12.00 mIU/mL REACTIVE>12 mIU/mL Performed By: #### L [id number] #### [facility] [address] [place] [address] T-Spoton 10-18-2021 T-Spot. TB Test Normal [facility] Comment on above: Result Comment: [facility] [address] [place] [address] (NOTE) T-SPOT.TB Test Results --------- T-SPOT TB [...] R UBI, FANG, JAGDEEP, VZI, TSPOT #### [facility] [employer] [address] [place] [address] Assembly Member: Isreal Astorga MD Measles (Rubeola) Imon 10-15 Measles (Rubeola) Im 6.05 Normal >1.09 [facility] Comment on above: Result Comment: Interpretation: IMMUNE Reference Range: <0.91 Not Immune 0.91-1.09 Equivocal >1.09 Immune Performed By: #### R UBI, FANG, JAGDEEP, VZI, TSPOT #### [place] [id number] Assembly Member: Isreal Astorga MD Mumps,Immun,Abon 10-15-2021 Mumps,Immun,Ab 5.42 Normal >1.09 [facility] Comment on above: Result Comment: Interpretation: IMMUNE Reference Range: <0.91 Not Immune 0.91-1.09 Equivocal >1.09 Immune Performed By: #### R UBI, FANG, JAGDEEP, VZI, TSPOT #### [place] [id number] Assembly Member: Isreal Astorga MD VZ Immunityon 10-15-2021 VZ Immunity 2.55 Normal >1.09 [facility] Comment on above: Result Comment: Interpretation: IMMUNE Reference Range: <0.91 Not Immune 0.91-1.09 Equivocal >1.09 Immune Performed By: #### R UBI, FANG, JAGDEEP, VZI, TSPOT #### [place] [id number] Assembly Member: Isreal Astorga MD Rubella Ab, IgGon 10-14-2021 Rubella Ab, IgG 279.3 IU/mL Normal [facility] Comment on above: Result Comment: REFERENCE RANGE: <5.0 NON-REACTIVE (non-immune) 5.0 TO 9.9 EQUIVOCAL >=10.0 REACTIVE (immune) Performed By: #### R UBI, FANG, JAGDEEP, VZI, TSPOT #### [place] [id number] Assembly Member: Isreal Astorga MD Basic Metabolic Panelon Anion gap [Moles/Vol] 11 mmol/L 9 - 17 mmol/L [place] Bun/Cre Ratio NOT REPORTED [place] Calcium [Mass/Vol] 8.7 mg/dL 8.6 - 10. 4 mg/dL [place] Chloride [Moles/Vol] 107 mmol/L 98 - 10 7 mmol/L [place] CO2 [Moles/Vol] 23 mmol/L 20 - 31 mmol/L [place] Creatinine [Mass/Vol] 0.59 mg/dL 0.5 - 0.9 mg/dL [place] GFR >60 >60 mL/min [place] GFR Non- >60 >60 mL/min [place] GFR/1.73 sq M predicted among non-blacks MDRD (S/P/Bld) [Vol rate/Area] [place] Comment on above: Average GFR for 30-3 9 years old: 107 mL/min/1.73sq m Chronic Kidney Disease: <60 mL/min/1.73sq m Kidney failure: <15 mL/min/1.73sq m eGFR calculated using average adult body mass. Additional eGFR calculator available at: http://www.PlastiPure/multiple_crcl_2012.htm GFR/1.73 sq M predicted among non-blacks MDRD (S/P/Bld) [Vol rate/Area] NOT REPORTED [place] Glucose [Mass/Vol] 91 mg/dL 70 - 99 mg/dL [place] Potassium [Moles/Vol] 4.1 mmol/L 3.7 - 5.3 mmol/L [place] Sodium [Moles/Vol] 141 mmol/L 135 - 144 mmol/L [place] Urea nitrogen [Mass/Vol] 10 mg/dL 6 - 20 mg/dL [place] CBC Auto Differentialon Basophils (Bld) [#/Vol] 0.03 10*3/uL [place] Basophils/100 WBC (Bld) 1 % 0 - 2 % [place] Differential Type NOT REPORTED [place] Eosinophils (Bld) [#/Vol] 0.15 10*3/uL [place] Eosinophils/100 WBC (Bld) 3 % 1 - 4 % [place] Erythrocyte distribution width (RBC) [Ratio] 12.4 % 11.8 - 14.4 % [place] Hematocrit (Bld) [Volume fraction] 41.3 % 36.3 - 47.1 % [place] Hemoglobin (Bld) [Mass/Vol] 13.3 g/dL 11.9 - 15.1 g/dL [place] Immature granulocytes (Bld) [#/Vol] 10*3/uL [place] Immature granulocytes (Bld) [#/Vol] 0 % 0 [place] Lymphocytes (Bld) [#/Vol] 1.91 10*3/uL [place] Lymphocytes/100 WBC (Bld) 39 % 24 - 43 % [place] MCH (RBC) [Entitic mass] 29.7 pg 25.2 - 33.5 pg [place] MCHC (RBC) [Mass/Vol] 32.2 g/dL 28.4 - 34.8 g/dL [place] MCV (RBC) [Entitic vol] 92.2 fL 82.6 - 102.9 fL [place] Monocytes (Bld) [#/Vol] 0.46 10*3/uL [place] Monocytes/100 WBC (Bld) 10 % 3 - 12 % [place] Platelet mean volume (Bld) [Entitic vol] 10.7 fL 8.1 - 13.5 fL [place] Platelets (Bld) [#/Vol] NOT REPORTED [place] Platelets (Bld) [#/Vol] 246 10*3/uL [place] RBC (Bld) [#/Vol] 4.48 10*6/uL 3.95 - 5.11 m/uL [place] RBC morphology finding Nom (Bld) NOT REPORTED [place] Segmented neutrophils/100 WBC (Bld) 47 % 36 - 65 % [place] Segs Absolute 2.29 [place] WBC (Bld) [#/Vol] 0.0 10*3/uL 0.0 per 100 WBC [place] WBC (Bld) [#/Vol] 4.9 10*3/uL [place] WBC Morphology NOT REPORTED [place] Iron And TIBCon 05-31-2019 Iron [Mass/Vol] 92 ug/dL 37 - 145 ug/dL [place] Iron Saturation 38 % 20 - 55 % [place] TIBC 243 ug/dL Low 250 - 450 ug/dL [place] UIBC 151 ug/dL 112 - 347 ug/dL [place] Otheron 05-31-2019 Interpretation and review of laboratory results Abnormal [place] Vitamin D 25 Hydroxyon 05-31 Vit D, 25-Hydroxy 20.9 ng/mL Low 30 - 100 ng/mL [place] Comment on above: Reference Range: Vitamin D status Range Deficiency <20 ng/mL Mild Deficiency 20-30 ng/mL Sufficiency 30-100 ng/mL Toxicity >100 ng/mL Vital Signs Date Time Vital Sign Value Performing Clinician Inocente canela 04-29-2024 13:25-0400 Diastolic blood pressure 82 mm[Hg] [facility] 04-29-2024 13:25-0400 Heart rate 80 /min [facility] 04-29-2024 13:25-0400 Respiratory rate 16 /min [facility] 04-29-2024 13:25-0400 SaO2% (BldA) [Mass fraction] 99 % [facility] 04-29-2024 13:25-0400 Systolic blood pressure 145 mm[Hg] [facility] 04-29-2024 10:53-0400 Body temperature 97.4 [degF] [facility] 04-29-2024 10:28-0400 Inhaled oxygen flow rate 2 L/min [facility] 04-29-2024 06:46-0400 Body height 170.18 cm [facility] 04-29-2024 06:46-0400 Body mass index (BMI) [Ratio] 37.6 kg/m2 [facility] 04-29-2024 06:46-0400 Body weight 109 kg [facility] 04-19-2024 09:11-0400 Body height 172.72 cm [facility] 04-19-2024 09:11-0400 Body mass index (BMI) [Ratio] 35.9 kg/m2 [facility] 04-19-2024 09:11-0400 Body weight 107 kg [facility] 02-15-2024 11:55-0400 Body height 172.72 cm [facility] 02-15-2024 11:55-0400 Body mass index (BMI) [Ratio] 36.1 kg/m2 [facility] 02-15-2024 11:55-0400 Body weight 107.95 kg [facility] Encounters Encounter Date Encounter Type Care Provider Facility Start: 06-17-2024 End: 06-17-2024 ambulatory BRYAN CONCHIS Not Available Start: 06-11-2024 End: 06-11-2024 ambulatory NON STAFF [facility] Work Phone: Start: 06-11-2024 End: 06-11-2024 Patient encounter procedure MD Santa Estrada II [facility] Work Phone: Start: 05-31-2024 End: 05-31-2024 ambulatory BRYAN R CONCHIS [facility] Start: 05-23-2024 End: 05-23-2024 ambulatory SANDRITA L FLORO Not Available Start: 05-23-2024 End: 05-23-2024 ambulatory SANDRITA L FLORO Not Available Start: 05-15-2024 End: 05-15-2024 ambulatory NON STAFF [facility] Work Phone: Start: 05-15-2024 End: 05-15-2024 [facility] Work Phone: Start: 04-29-2024 Non-patient / Non-visit [facility] Work Phone: Start: 04-29-2024 End: 04-29-2024 Admission to same day surgery center [facility] [place] Start: 04-29-2024 End: 04-29-2024 ambulatory NON STAFF [facility] Work Phone: Start: 04-25-2024 End: 04-25-2024 ambulatory SANDRITA L FLORO Not Available Start: 04-19-2024 End: 04-19-2024 ambulatory NON STAFF [facility] Work Phone: Start: 04-19-2024 End: 04-19-2024 Patient encounter procedure [facility] Work Phone: Start: 04-19-2024 Registered [facility] [place] Start: 04-19-2024 End: 04-19-2024 ambulatory NON STAFF [facility] Work Phone: Start: 04-19-2024 End: 04-19-2024 Patient encounter procedure [facility] Work Phone: Start: 04-16-2024 End: 04-16-2024 ambulatory SANDRITA L FLORO Not Available Start: 04-15-2024 End: 04-15-2024 Patient encounter procedure [facility] Work Phone: Start: 04-15-2024 End: 04-15-2024 ambulatory NON STAFF [facility] Work Phone: Start: 03-13-2024 End: 03-13-2024 ambulatory [facility] Facility: [facility] Start: 03-12-2024 End: 03-12-2024 Patient encounter procedure [facility] [place] Work Phone: Start: 03-12-2024 End: 03-12-2024 ambulatory NON STAFF [facility] Work Phone: Start: 02-29-2024 End: 02-29-2024 ambulatory SANTA OROZCO [facility] Start: 02-27-2024 End: 02-27-2024 ambulatory NON STAFF [facility] Work Phone: Start: 02-27-2024 End: 02-27-2024 Departed Referred [facility] Start: 02-26-2024 End: 02-27-2024 ambulatory Peter Booth Facility:[facility] Start: 02-15-2024 End: 02-15-2024 ambulatory NON STAFF [facility] Work Phone: Start: 02-15-2024 End: 02-15-2024 Patient encounter procedure [facility] Work Phone: Start: 02-01-2024 End: 02-01-2024 ambulatory VICTOR M LUJAN Not Available Start: 01-25-2024 End: 01-26-2024 ambulatory Audra Reynoso [employer] Facility:[facility] Start: 01-12-2024 End: 01-13-2024 ambulatory Alec Patel MD Facility:[facility] Start: 01-05-2024 End: 01-06-2024 ambulatory Audra Reynoso [employer] Facility:[facility] Start: 12-15-2023 End: 12-15-2023 ambulatory VICTOR M LUJAN Not Available Start: 08-23-2023 End: 08-23-2023 ambulatory [facility] Start: 07-11-2023 End: 07-11-2023 ambulatory [facility] Start: 09-01-2022 End: 09-01-2022 ambulatory [facility] Start: 09-01-2022 End: 09-01-2022 Encounter for antibody response examination [facility] Start: 10-14-2021 End: 10-15-2021 ambulatory [facility] Start: 10-13-2021 ambulatory [facility] Start: 04-02-2020 End: 04-02-2020 Subsequent hospital [...] Surgery: [id number] Result Comment: PERF ORMED BY: [facility] [address] [place] [address] PATHOLOGIST ACCOUNTS RECEIVABLE COORDINATOR GENO BENEDICT M.D. Start: 03-12-2024 Methicillin resistan [...] LT 3V - NOT FOR ER USE [facility] Start: 06-11-2024 XR Knee - left 3 Views [facility] Start: 04-29-2024 Hospital admission [facility] Start: 04-29-2024 End: 04-29-2024 [facility] Start: 04-29-2024 Physical therapy procedure [facility] Start: 04-19-2024 Plain X-ray of left femur XR femur L T 2V* [facility] Start: 04-19-2024 Plain X-ray of left tibia and left fibula XR tibia fibula LT 2V* [facility] Start: 04-19-2024 XR Femur - left 2 Views [facility] Start: 04-19-2024 XR Tibia and Fibula - left 2 Views [facility] Start: 04-15-2024 [facility] Start: 03-12-2024 MRSA Culture MRSA Culture [facility] Start: 02-15-2024 Pelvis X-ray XR pelvis 1-2V [facility] Start: 02-15-2024 Radiologic examinati on of knee XR knee LT 4V* [facility] Start: 02-15-2024 XR Knee - left 4 Views [facility] Start: 02-15-2024 XR Pelvis 1 or 2 Views [facility] Start: 07-02-2022 DTaP/Tdap/Td vaccine (2 - Td) DTaP/Tdap/Td vaccine (2 - Td) [place] Start: 05-26-2020 Influenza vaccination Flu vaccine (# 1) [place] Start: 04-21-2020 End: 04-21-2020 Office Visit 04/21/2020 Office Visit Obstetrics and Gynecology Karel Palm DO [address] [place] [address] [phone] [facility] 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[place] Start: 05-26-2019 Influenza vaccination Flu vaccine (# 1) [place] Start: 2009 Cervical cancer screen Cervical canc er screen [place] Start: 2009 Screening for malign ant neoplasm of cervix Cervical cancer [place] Start: 2007 DTaP/Tdap/Td vaccine (1 - Tdap) DTaP/Tdap/Td vaccine (1 - Tdap) [place] Start: 2003 [facility] [place] [place] Start: 2003 [facility] [place] Start: 2001 Varicella Vaccine (1 of 2 - 13+ 2-dose series) Varicella Vaccine (1 of 2 - 13+ 2-dose series) [place] Start: 1989 Varicella vaccine (1 of 2 - 2-dose childhood series) Varicella vaccine (1 of 2 - 2-dose childhood series) [place] End: 05-31-2019 Cobalamin (Vitamin B12) [Mass/Vol] Vitamin B12 Lab Routine History of bariatric surgery 1 Occurrences starting 05/31/2019 until 05/31/2019 [place] Comment on above: 1 Occurrences starti ng 05/31/2019 until 05/31/2019 Cobalamin (Vitamin B 12) [Mass/Vol] Vitamin B12 Lab Routine History of bariatric surgery 05/31/2019 8:42 AM EDT [place] Cotinine [Mass/volum e] in Serum or Plasma [facility] Cotinine [Mass/volum e] in Serum or Plasma [facility] End: 04-02-2020 Covid-19 Ambulatory Covid-19 Ambulatory Lab Routine Once for 1 Occurrences starting 04/02/2020 until 04/02/2020 [place] Comment on above: Once for 1 Occurrenc es starting 04/02/2020 until 04/02/2020 Covid-19 Ambulatory Covid-19 Amb ulatory Lab Routine 04/02/2020 10:12 PM EDT [place] Glucose measurement estimated from glycated hemoglobin [facility] Methicillin resistan t Staphylococcus aureus [Presence] in Unspecified specimen by Organism specific culture [facility] MR Knee - left WO contrast [facility] Nicotine [Mass/volum e] in Serum or Plasma [facility] Nicotine [Mass/volum e] in Serum or Plasma [facility] Patient Education Know your Meds [facility] Work Phone: [facility] Immunizations Immunization Date Immunization Notes Care Provider Fa cility 07-29-2021 COVID-19 mRNA-1273 (Moderna) [facility] 10-29-2020 COVID-19 mRNA-1273 (Moderna) [facility] 10-01-2020 COVID-19 mRNA-1273 (Moderna) [facility] 07-03-2019 influenza virus vacc ine, unspecified formulation [place] 07-02-2012 tetanus toxoid, redu [place] diphtheria toxoid, and acellular pertussis vaccine, adsorbed [place] Payers Date Payer Category Payer Self-pay [id number] 2023 Unknown 2023 Unknown [id number] 2022 Unknown [id number] 2020 Unknown [id number] 2018 Unknown [employer] MH EMP xxxxxxxxxxxx 2018-Present [phone] [address] [place] [address] xxxxxxxxxxxx [id number] 2018 Medicaid [id number] 2014 Unknown [employer] xxxxxxxxxxx 2014-Present [phone] [address] [place] [address] xxxxxxxxxxx [id number] .[id number] 1988 Unknown [id number] 2.16.840.1.054051.3.579.2.196 1988 Unknown [id number] 2.16.840.1.234949.3.579.2.196 1988 Unknown [id number] 2.16.840.1.233628.3.579.2.196 1988 Unknown [id number] 2.16.840.1.626606.3.579.2.128 6 1988 Unknown [id number] 2.16.840.1.537863.3.579.2.128 6 1988 Unknown [id number] 2.16.840.1.636211.3.579.2.128 6 1988 Unknown [id number] 2.16.840.1.972945.3.579.2.718 1988 Unknown [id number] 2.16.840.1.906688.3.579.2.718 1988 Unknown [id number] 2.16.840.1.760311.3.579.2.718 1988 Unknown [id number] 2.16.840.1.448127.3.579.2.718 1988 Unknown [id number] 2.16.840.1.346463.3.579.2.718 1988 Unknown [id number] 2.16.840.1.877534.3.579.2.718 1988 Unknown [id number] 2.16.840.1.694348.3.579.2.718 1988 Unknown [id number] 2.16.840.1.589685.3.579.2.125 9 1988 Unknown [id number] 2.16.840.1.980871.3.579.2.125 9 1988 Unknown [id number] 2.16.840.1.639031.3.579.2.125 9 1988 Unknown [id number] 2.16.840.1.606325.3.579.2.125 9 1988 Unknown [id number] 2.16.840.1.212225.3.579.2.125 9 1988 Unknown [id number] 2.16.840.1.399801.3.579.2.125 9 1988 Unknown [id number] 2.16.840.1.693336.3.579.2.125 9 1988 Unknown [id number] 2.16.840.1.383539.3.579.2.125 9 Unknown [facility] Employees [id number] Unknown [id number] 2.16.840.1.658535.3.579.2.531 Unknown [id number] 2.16.840.1.677451.3.579.2.531 Unknown [id number] 2.16.840.1.334271.3.579.2.531 Unknown [id number] 2.16.840.1.423945.3.579.2.531 Social History Date Type Detail Facility Start: 05-17-2019 End: 01-03-2020 Tobacco smoking status NHIS Former [place] Start: 05-17-2019 End: 01-03-2020 Cigarettes smoked current (pack per day) - Reported [place] Start: 05-17-2019 Alcohol intake Yes [place] Start: 05-17-2019 Alcohol Comment social [place] Sex Assigned At Not on file [place] Start: 01-03-2020 Alcohol intake Current drinke r of alcohol (finding) [place] Start: 11-14-2019 End: 04-29-2024 Tobacco smoking status MOIS Never smoked tobacco (finding) [facility] Start: 1990 Sex Assigned At Female F [facility] NEGATED: Highlighted row [facility] Medical Equipment Procedure Code Equipment Code Equipment Origin al Text Equipment Identifier Dates Arthroplasty, knee, total, minimally invasive Uncoated unicondylar knee femur prosthesis ([id number] FDA Start: 04-29-2024 Arthroplasty, knee, total, minimally invasive Uncoated unicondylar knee tibia prosthesis, metallic ()[id number] FDA Start: 04-29-2024 Arthroplasty, knee, total, minimally invasive Unicondylar knee insert ()[id number] FDA Start: 04-29-2024 Arthroplasty, knee, total, minimally invasive Orthopaedic cement, non-medicated ()[id number] FDA Start: 04-29-2024 Goals Date Patient Goal [...] these instructions at home: Medicines ? Take vddz-exm-vomabol and prescription medicines only as told by [...] keep your urine pale yellow. ? Take snsk-xmq-jguqedq or prescription medicines. ? Eat foods that [...] and water are not available, use hand manager special events. ? Place dry dressings as needed. ? [...] provider. Document Revised: 03/15/2022 Document Reviewed: 03/15/2022 YODIL Patient Education ? 2022 [employer]. [facility] 02-27-2024 Note [facility] Clinical Discharge Summary PERSON INFORMATION Name LUCILA JACQUES Age 33 Years 1990 Sex FEMALE Language Ugandan PCP Provider, None Marital Status Med Service Observation Acct# Arrival 02/26/2024 22:40:28 Visit Reason Abdominal pain; ACUTE CHOLECYSTITIS Acuity LOS 000 10:25 Address: [address] [address] Comment: PROVIDER INFORMATION VITALS INFORMATION Vital Sign [...] ibuprofen Medication List: New Medications [id number], [address] [place], [place] [id number], [phone] acetaminophen-hydrocodone (acetaminophen-hydrocodone 325 mg-5 mg oral tablet) [...] range between ( 1.3 and 2.9 ) Converse Abs#: 0.6 x103/mcL -- Normal range between ( 0.0 and 0.8 ) Auto Baso %: 0.4 % -- Normal range between ( 0.2 and 2.0 ) Auto Converse %: 8 % -- Normal range between [...] Anion Gap: 1 (more content not included)... [facility] 01-15-2024 Note [id number] 1.00OTGTIFF [facility] 01-12-2024 Note [facility] SURGERY Clinical Discharge Summary PERSON INFORMATION Name LUCILA JACQUES Age 33 Years 1990 Sex FEMALE Language Ugandan PCP Provider, None Marital Status Med Service Pain Management Surgery Acct# Arrival 01/12/2024 10:59:54 Visit Reason GENICULAR PAIN Acuity LOS 004 01:11 Address: [address] [place] [address] Comment: PROVIDER INFORMATION VITALS INFORMATION Vital Sign [...] AM Confirmed DIAGNOSIS Comment: PHYS DOC NOTES [facility] 01-11-2024 Note [id number]#1.00OTGTIFF The history of present illness has been reviewed. There are no changes document. [Electronically Signed on: 01/12/2024 11:34 EDT] __ ALEC PATEL MD [Verified on: 01/12/2024 11:34 EDT] __ ALEC PATEL MD [Transcribed on: 01/11/2024 13:06 EDT] [facility] 08-23-2023 Note Date of Telehealth V isit: 08/23/23 The patient was notified that using 3rd democrat telecommunication application (e.g. [employer]) is not HIPAA compliant and may carry some privacy risks: Yes This visit was conducted xdhl-mm-odnc with the use of audio and video [...] shortness of breath. She has been using wujh-gmh-duygmqt medications with minimal relief of symptoms. ROS: [...] EMR, and coordinating care. Ching Brooks PA-C [facility] 07-11-2023 Note [facility] Telemedicine Visit Date of Telehealth Visit: 07-11-2023 The patient was notified that using 3rd democrat telecommunication application (e.g. [employer]) is not HIPAA compliant and may carry some privacy risks This visit was conducted dily-ju-wbgs with the use of audio and video [...] migraines. Patient states that she is taken izif-xtc-jvidywy Tylenol and Tylenol PM. She has a [...] today's date. Greater than 16 minutes spent xjoa-al-jkwy assessing patient, reviewing chart and discussing plan of care including treatment options. Care collaborated all questions answered. Rekha Mustafa PA-C Portions of this chart have been completed with voice recognition software, please excuse any errors. [facility] Evaluation note No assessment information availa [facility] Work Phone: Evaluation note Diagnosis Onset Date Primary osteoarthritis of left knee [facility] Work Phone: Evaluation note* Diagnosis Onset Date Resolution Status Primary osteoarthritis of left knee acute Primary osteoarthritis of left knee [facility] Work Phone: Evaluation note* Diagnosis Onset Date Resolution Status Primary osteoarthritis of left knee acute Status post left partial knee replacement [facility] Work Phone: Assessments Diagnosis History of bariatric surgery Bariatric surgery status Health care maintenance Unspecified general medical examination Advance Directives No Advanced Directives Records FoundDocuments on File Type Date 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 DATE CREATED AUTHOR AUTHOR'S ORGANIZ ATION 02/02/2024 [facility] DATE CREATED AUTHOR AUTHOR'S ORGANIZ ATION 03/04/2024 [facility] DATE CREATED AUTHOR AUTHOR'S ORGANIZ ATION 03/16/2024 [facility] DATE CREATED AUTHOR AUTHOR'S ORGANIZ ATION 06/02/2024 [facility] DATE CREATED AUTHOR AUTHOR'S ORGANIZ ATION 06/06/2024 [facility] DATE CREATED AUTHOR AUTHOR'S ORGANIZ ATION 06/13/2024 [facility] DATE CREATED AUTHOR AUTHOR'S ORGANIZ ATION 06/19/2024 [facility] d[facility] Specialists EPIC Care Teams (unrecognized sec [...] 12, 2024 Santa Estrada II, MD Attending [facility] Hilli sharla, Referring Provider Active Start: March 12, [...] Care Provider Active Start: April 19, 2024 Satna Estrada II, MD Attending Provider Active Start: [...] BE BASED ON THE PRIMARY CLINICAL RECORDS. [facility] [employer] [facility]. provides no warranty or guarantee of the accuracy or completeness of information in this document.
== END 2024-06-21 10:39 | disposition home or self-care (01) ==
LOC: NOMS 10:38
PROVIDERS: Visit Provider Obstetrics & Gynecology
DX: O26.31 Retained intrauterine contraceptive device in pregnancy, first trimester (principal); O09.521 Supervision of elderly multigravida, first trimester; Z3A.10 10 weeks gestation of pregnancy
CPT/HCPCS: 76817; 81050; 84156

== ENCOUNTER 2024-08-12 14:44 | Outpatient (OUT) | payer BC, OTHER, SELFPAY ==
[2024-08-14 01:08] LABS: AFP Value 43.5 ng/mL (.); Gest. Age on Collection Date 18.1 weeks (.); Gestat. Age Based On Ultrasound (.); Insulin Dep Diabetes No (.); Maternal Age At EDD 36.5 yr (.); OSBR Risk 1 IN 4529 (.); Results Report (.)
== END 2024-08-12 14:45 | disposition home or self-care (01) ==
LOC: LAB 14:47
PROVIDERS: Visit Provider Physician Assistant
DX: Z34.92 Encounter for supervision of normal pregnancy, unspecified, second trimester (principal); Z36.1 Encounter for antenatal screening for raised alphafetoprotein level; Z3A.18 18 weeks gestation of pregnancy
CPT/HCPCS: 36415; 82105

== ENCOUNTER 2024-10-25 09:58 | Outpatient (OUT) | payer OTHER, SELFPAY ==
--- OUTSIDE RECORDS SUMMARY | 2024-10-25 10:09 | XMS_ITS | CCD ---
Author Organization [facility] Care Team Providers Care Ssds Mk 2 Advanced Operator Name Role Phone Yesica Khan Primary Care Provider [phone] ROCÍO GONZALEZ Referring Unavailable YESICA KHAN Primary Care Unavailable ROCÍO GONZALEZ Referring Unavailable YESICA KHAN Primary Care Unavailable DENISE TAYLOR Referring Unavailable Palmer MELECIO, Audra Burns Attending Alec Chacon MD Attending Charles garcia Palmervarun MILAN-ADITI, Audra Burns Attending U [place] NON STAFF Primary Care Provider UnavailMD Santa Whiteside II Attending Provider MD Maurizio Mast Attending Provider NO FAMILY, PHYSICIAN Primary Care Provider Unava ilMD Santa Hoffman II Referring Provider ALEC PATEL Admitting Unavailable ALEC PATEL Attending Unavailable Provider, None Primary Care Unavailable Peter Booth Attending Unavailable Provider, None Primary Care Unavailable Peter Booth Attending Unavailable Provider, None Primary Care Unavailable Audra Reynoso M Admitting Unavailable Audra Reynoso Attending Unavailable Provider, None Primary Care Unavailable Maurizio Mast Attending Unavailable Juliano Peterson Unavailable Provider, None Primary Care Unavailable Maurizio Mast Admitting Unavailable PalmerAudra Admitting Unavailable PalmerAudra Attending Unavailable Provider, None Primary Care Unavailable Provider, None Primary Care Unavailable Palmer, Audra M Admitting Unavailable Edgardo Audra Camila Attending Unavailable MD Santa Estrada II Attending Provider NON STAFF Primary Care Provider Unavailabl e NON STAFF Primary Care Unavailable Santa Estarda II Attending UnavailSanta Whiteside II Admitting Unavailabl Santa Heller II Admitting Unavailabl e NON STAFF Primary Care Unavailable Sean II, Santa Jensen Attending Unavailabl e [place] II, Santa Jensen Admitting Unavailabl e NON STAFF Primary Care Unavailable [place] II, Santa Jensen Attending Unavailabl e NON STAFF Primary Care Unavailable [place] II, Santa Jensen Attending Unavailabl e [place] II, Santa Jensen Admitting Unavailabl e Mast, Maurizio Ul-Johnson Admitting Unavailable Mast, Maurizio Ul-Johnson Attending Unavailable Sean II, Santa Jensen Admitting Unavailabl e NON STAFF Primary Care Unavailable Sean II, Santa Jensen Attending Unavailabl e NO FAMILY, PHYSICIAN Primary Care Unavailable Sean II, Santa Jensen Admitting Unavailabl e [place] II, Santa Jensen Attending Unavailabl e [place] KUSH, Santa Jensen Referring Unavailabl e Pcp, Not In System Primary Care Provider Unavail able Unallocated , Acs Provider Primary Care Provi sharla Tai HOSPITAL INSURANCE CLERK, Victor M Gongora Unavailable NON STAFF Primary Care Provider Unavailabl e MD Santa Estrada II Attending Provider ATTILA, CATRACHITO R Referring Unavailable PCP, NOT IN SYSTEM Primary Care Unavailable LEXI ROBERTSON Attending Unavailable AILYN, LEXI Referring Unavailable PCP, NOT IN SYSTEM Primary Care Unavailable ATTILA, CATRACHITO R Referring Unavailable PCP, NOT IN SYSTEM Primary Care Unavailable MOUSSA, HIND NADIM Attending Unavailable ATTILA, CATRACHITO R Referring Unavailable PCP, NOT IN SYSTEM Primary Care Unavailable CHRISTEN REID Attending Unavailable ATTILA, CATRACHITO R Referring Unavailable PCP, NOT IN SYSTEM Primary Care Unavailable MOUSSA, HIND NADIM Attending Unavailable ATTILA, CATRACHITO R Referring Unavailable PCP, NOT IN SYSTEM Primary Care Unavailable Unallocated , Nommike Provider Primary Care Provi sharla VICTOR M LUJAN Attending Unavailable VICTOR M LUJAN Referring Unavailable VICTOR M LUJAN Attending Unavailable SANDRITA BOWERS Attending Unavailable FLORO, SANDRITA León Attending Unavailable FLORO, SANDRITA L Attending Unavailable FLORO, SANDRITA L Referring Unavailable ATTILA, CATRACHITO Attending Unavailable ATTILA, CATRACHITO Attending Unavailable GENEVIEVE DONOVAN Attending Unavailable ATTILA, CATRACHITO Attending Unavailable SANTA ESTRADA Referring Unavaila ble PCP, NOT IN SYSTEM Primary Care Unavailable JEANIE PARSONS Referring Unavailable PCP, NOT IN SYSTEM Primary Care Unavailable CATRACHITO AIKEN Referring Unavailable PCP, NOT IN SYSTEM Primary Care Unavailable Allergies Allergy Classification Reported Allergen(s) Allergy Type Date of Onset Reaction(s) Facility Magnesium (1 source) Magnesium Drug Allergy 4 [facility] NSAIDs (1 source) Ibuprofen Drug Allergy 4 [facility] Potassium (1 source) Potassium Drug Allergy 4 [facility] (2 sources) Magnesium-Conta ining Compounds Propensity to adverse reactions to drug 9 [place], [place] (20 sources) Ibuprofen; Translations: [ibuprofen] Drug Allergy 9 [place], [place] (1 source) Potassium-Conta ining Compounds Propensity to adverse reactions to drug 0 [place], [place] (1 source) ALLERGIES NOT ON FILE; Translations: [ALLERGIES NOT ON FILE] Propensity to adverse reactions (disorder) [facility] Repository (20 sources) Magnesium; Translations: [Magnesium] Drug Allergy 2 [facility] (20 sources) Potassium; Translations: [potassium] Drug Allergy 3 [facility] (9 sources) Contrast media Allergy to substance 4 [facility] (6 sources) NSAIDS (Non-Steroidal Anti-Inflamma Allergy to substance 4 [facility] (10 sources) Amoxicillin; Translations: [amoxicillin] Drug Allergy 4 [facility] Repository (10 sources) Potassium Chloride; Translations: [potassium chloride] Drug Allergy 2 [facility] Repository (1 source) Ibuprofen Drug Allergy 4 [facility] Repository (7 sources) Non-steroidal anti-inflammato ry agent; Translations: [NSAIDS (NON-STEROIDAL ANTI-INFLAMMATO RY DRUG)] Propensity to adverse reactions to drug 2 [facility] [facility] (19 sources) Non-steroidal anti-inflammato ry agent Drug Allergy 3 Hives [facility] Work Phone: (19 sources) Amoxicillin-Pot Clavulanate Drug Intolerance 1 [facility] (2 sources) Iodinated Contrast Media Drug Intolerance 4 Hives, Itching, Rash [facility] Medications Current Medications Medication Drug Class(es) Dates Sig (Normalized) Sig (Original) acetaminophen 500 mg oral tablet (12 sources) Start: 04-24-2024 take 2 tablets by mouth every eight hours GNP PAIN RELIEF EX-STRENGTH 500 MG tablet TAKE 2 TABLETS BY MOUTH EVERY 8 HOURS FOR 30 DAYS 04/24/2024 Active Start: 04-19-2024 take 1000 mg by mout h every eight hours Acetaminophen Active 1000 MG PO Q8H 180 April 19, 2024 12:00am DO NOT RECONCILE UNTIL DOS:04/29/2024 MED TO BED calcium carbonate 1250 mg oral tablet (9 sources) Start: 03-18-2024 take 500 mg by mouth three times daily Calcium Carbonate Active 500 MG PO Three times daily March 18, 2024 12:00am calcium citrate 150 mg oral capsule (20 sources) Calcium Citrate 150 MG capsule Orally Active CALCIUM CITRATE ORAL Take by mouth. Active cholecalciferol 0.025 mg oral capsule (16 sources) Vitamin D Start: 03-18-2024 take 25 ug by mouth once daily Cholecalciferol (Vitamin D3) Active 25 MCG PO daily March 18, 2024 12:00am take 1 tablet by leonides th in the morning cholecalciferol, vitamin D3, 2,000 units tablet Take 1 tablet (2,000 Units total) by mouth in the morning. Active End: 08-12-2024 take 1 capsule by mouth once daily cholecalciferol (Vitamin D-3) 25 MCG (1000 UT) capsule Take 1,000 Units by mouth Daily 08/12/2024 Discontinued (Therapy completed) levonorgestrel 0.792984 mg/hr intrauterine system (2 sources) Progestin, Progestin-containing Intrauterine Device Levonorgestrel (LILETTA, 52 MG,) 19.5 MCG/DAY IUD by Intrauterine route 0 Active Multiple Vitamins-Minerals (Multi Complete) capsule (19 sources) Multiple Vitamins-Minerals (Multi Complete) capsule as directed Orally Active Multivitamin (Daily Multi-Vitamin) tablet (9 sources) Start: 2023 take 1 tablet by mouth once daily Multivitamin (Daily Multi-Vitamin) tablet Active 1 TAB PO Daily April 15, 2024 12:00am Multivitamin preparation (5 sources) multivitamin (MULTIPLE VITAMINS DAILY ORAL) Take by mouth. Active [place] (No Known Home Meds) (4 sources) Start: 2019 [place] (No Known Home Meds) Active November 14, 2019 1:00am ondansetron 4 mg oral tablet (19 sources) Serotonin-3 Receptor Antagonist Start: 2023 take 4 mg by mouth every eight hours Ondansetron Hcl Active 4 MG PO Every 8 hours July 17, 2024 12:00am Start: 06-04-2024 End: 07-16-2024 take 1 tablet by mouth every six hours for nausea ondansetron ODT (Zofran-ODT) 4 MG disintegrating tablet Indications: Nausea and vomiting in Take 1 tablet (4 mg) by mouth every 6 (six) hours if needed for nausea or vomiting 30 tablet 2 06/04/2024 07/16/2024 Start: 04-19-2024 End: 05-15-2024 take 4 mg by mouth every eight hours Ondansetron Hcl Discontinued 4 MG PO Q8H 9 April 19, 2024 12:00am May 15, 2024 1:38pm DO NOT RECONCILE UNTIL DOS:04/29/2024 MED TO BED pantoprazole 20 mg delayed release oral tablet (6 sources) Proton Pump Inhibitor Start: 04-19-2024 take [...] Drug Class(es) Dates Sig (Normalized) Sig (Original) Blood Glucose Monitoring Suppl (D-Care Glucometer) w/Device kit (6 sources) Start: 07-08-2024 End: 08-12-2024 Blood Glucose Monitoring Suppl (D-Care Glucometer) w/Device kit Indications: Gestational diabetes mellitus (GDM), antepartum, gestational diabetes method of control unspecified , Elevated glucose tolerance test 1 kit Daily Use four times daily to check FSBS. In the morning prior to breakfast & 1 hour after each meal for a total of 4times daily. 1 kit 07/08/2024 08/12/2024 Discontinued (Therapy completed) Start: 07-08-2024 End: 07-08-[address] (D-Care Glucometer) w/Device kit Indications: Gestational diabetes mellitus (GDM), antepartum, gestational diabetes method of control unspecified , Elevated glucose tolerance test 1 kit Daily Use four times daily to check FSBS. In the morning prior to breakfast & 1 hour after each meal for a total of 4times daily. 1 kit 07/08/2024 07/08/2025 Active cefadroxil 500 mg oral capsule (6 sources) Cephalosporin Antibacterial Start: 04-19-2024 End: 05-15-2024 take 500 mg by mouth every twelve hours Cefadroxil Discontinued 500 MG PO Q12H 14 April 19, 2024 12:00am May 15, 2024 1:38pm DO NOT RECONCILE UNTIL DOS:04/29/2024 MED TO BED celecoxib 200 mg oral capsule (6 sources) Nonsteroidal Anti-inflammatory Drug Start: 04-19-2024 End: 04-29-2024 take 200 mg by mouth twice daily Celecoxib Discontinued 200 MG PO Twice daily 60 April 19, 2024 12:00am April 29, 2024 7:29am DO NOT RECONCILE UNTIL DOS:04/29/2024 MED TO BED docusate sodium 50 mg / sennosides, care home 8.6 mg oral tablet (6 sources) Start: 04-19-2024 End: 05-15-2024 take 2 tablets by mouth once daily Sennosides-Docusat e Sodium (Senokot-S) 8.6-50 mg tablet Discontinued 2 TAB PO daily 60 April 19, 2024 12:00am May 15, 2024 1:39pm DO NOT RECONCILE UNTIL DOS:04/29/2024 MED TO BED ibuprofen 200 mg oral tablet (13 sources) Nonsteroidal Anti-inflammatory Drug Start: 08-30-2017 End: 11-14-2019 take 2 tablets by mouth every four to six hours Ibuprofen (Motrin Ib) 200 mg Tablet Discontinued 2 TAB PO EVERY 4-6 HOURS August 30, 2017 1:00am November 14, 2019 4:20pm isopropyl alcohol 0.7 ml/ml medicated pad (6 sources) Start: 07-08-2024 End: 08-12-2024 Alcohol Swabs (Alcohol Prep Pad) 70 % pads Indications: Gestational diabetes mellitus (GDM), antepartum, gestational diabetes method of control unspecified , Elevated glucose tolerance test Apply 1 Pad topically Daily Use four times daily to check FSBS. 150 each 3 07/08/2024 08/12/2024 Discontinued (Therapy completed) oxyCODONE hydrochloride 5 mg oral tablet (19 sources) Opioid Agonist Start: 04-19-2024 End: 05-15-2024 [...] () 28 mg iron- 800 mcg Tablet (13 sources) Start: 08-30-2017 End: 08-30-2017 take 1 tablet by mouth once daily Pnv Cmb#95-Ferrous Fumarate-Fa () 28 mg iron- 800 mcg Tablet Discontinued 1 TAB PO Daily August 30, 2017 1:00am August 30, 2017 12:44pm polyethylene glycol 3350 35055 mg powder for oral solution (6 sources) Osmotic Laxative Start: 04-19-2024 End: 05-15-2024 Polyethylene Glycol 3350 (Miralax) 17 gram/dose powder Discontinued 17 GM PO daily 7 April 19, 2024 12:00am May 15, 2024 1:38pm 1 packed mixed with 8 ounces of fluid. DO NOT RECONCILE UNTIL DOS:04/29/2024 MED TO BED predniSONE 10 mg oral tablet (6 sources) Start: 04-29-2024 End: 05-15-2024 take 10 mg by mouth once daily Prednisone Discontinued 10 MG PO daily 10 10 April 29, 2024 12:00am May 15, 2024 1:38pm DO NOT RECONCILE UNTIL DOS:04/29/2024 MED TO BED Vit 10-Iron Fum-Folic (13 sources) Start: 08-30-2017 End: 11-14-2019 take 1 tablet by mouth once daily Vit 10-Iron Fum-Folic Discontinued 1 TAB PO Daily August 30, 2017 1:00am November 14, 2019 4:20pm rivaroxaban 10 mg oral tablet (6 sources) Factor Xa Inhibitor Start: 04-19-2024 End: 06-11-2024 take 10 mg by mouth once daily Rivaroxaban Discontinued 10 MG PO daily 35 35 April 19, 2024 12:00am June 11, 2024 10:59am DO NOT RECONCILE UNTIL DOS:04/29/2024 MED TO BED traMADol hydrochloride 50 mg oral tablet (6 sources) Opioid Agonist Start: 04-19-2024 End: 05-15-2024 take 50 mg by mouth every six hours Tramadol Discontinued 50 MG PO q6h 28 7 April 19, 2024 12:00am May 15, 2024 1:39pm DO NOT RECONCILE UNTIL DOS:04/29/2024 MED TO BED Problems Active Problems Problem Classification Problem Date Documented Da te Episodic/Chronic Anxiety disorders (20 sources) Anxiety; Translations: [Panic attack] Onset: 0 01-05-2020 Chronic Esophageal disorders (6 sources) Gastroesophageal reflux disease without esophagitis; Translations: [Gastro-esophageal reflux disease without esophagitis] Onset: 6 11-12-2019 Chronic Fluid and electrolyte disorders (13 sources) Hypokalemia; Translations: [Hypokalemia] 09-06-2023 Episodic Headache; including migraine (19 sources) Chronic migraine without aura; Translations: [Chronic migraine without aura, not intractable, without status migrainosus] Onset: 3 04-20-2023 Chronic Hypertension complicating ; childbirth and the puerperium (2 sources) -induced hypertension; Translations: [Gestational [-induced] hypertension without significant proteinuria, unspecified trimester] 06-17-2024 Episodic Immunizations and screening for infectious disease (2 sources) Exposure to sexually transmissible disorder; Translations: [Contact with and (suspected) exposure to infections with a predominantly sexual mode of transmission] 08-12-2024 Episodic Joint disorders and dislocations; trauma-related (20 sources) Derangement of knee; Translations: [Unspecified internal derangement of unspecified knee] Onset: 3 04-20-2023 Chronic Menstrual disorders (4 sources) Amenorrhea; Translations: [Amenorrhea, unspecified] 05-23-2024 Chronic Mood disorders (1 source) Mood disorders; Translations: [Depression, unspecified] Onset: Nonspecific chest pain (13 sources) Chest pain; Translations: [Chest pain, unspecified] 09-06-2023 Episodic Osteoarthritis (20 sources) Osteoarthritis of left knee joint; Translations: [Unilateral primary osteoarthritis, left knee] Onset: 3 02-15-2024 Chronic Osteoporosis (11 sources) Osteoporosis; Translations: [Age-related osteoporosis without current pathological fracture] Onset: 4 03-12-2024 Chronic Other aftercare (10 sources) Long-term current use of drug therapy; Translations: [Other residential (current) drug therapy] 03-12-2024 Episodic Other complications of (4 sources) Maternal obesity complicating , childbirth and the puerperium, antepartum; Translations: [Obesity complicating , second trimester] Onset: 4 07-05-2024 Chronic Other complications of (1 source) Obesity complicating , second trimester; Translations: [Obesity complicating , second trimester] Onset: 4 Chronic Other complications of (1 source) Obesity complicating , unspecified trimester; Translations: [Obesity complicating , unspecified trimester] Onset: 4 Chronic Other complications of (20 sources) Retained intrauterine contraceptive device in ; Translations: [Retained intrauterine contraceptive device in , second trimester] Onset: 4 07-05-2024 Episodic Other complications of (7 sources) Multigravida of advanced maternal age; Translations: [Supervision of elderly multigravida, second trimester] 07-05-2024 Episodic Other complications of (1 source) Anxiety in ; Translations: [Other mental disorders complicating , unspecified trimester] 07-05-2024 Episodic Other complications of (1 source) Depressive disorder in mother complicating ; Translations: [Other mental disorders complicating , unspecified trimester] 07-05-2024 Episodic Other complications of (2 sources) Retained intrauterine contraceptive device in , second trimester; Translations: [Retained intrauterine contraceptive device in , second trimester] Onset: 4 Episodic Other complications of (2 sources) Supervision of elderly multigravida, second trimester; Translations: [Supervision of elderly multigravida, second trimester] Onset: 4 Episodic Other complications of (1 source) Other mental disorders complicating , unspecified trimester; Translations: [Other mental disorders complicating , unspecified trimester] Onset: 4 Episodic Other complications of (1 source) Bariatric surgery status complicating , second trimester; Translations: [Bariatric surgery status complicating , second trimester] Onset: 4 Episodic Other connective tissue disease (4 sources) History of prosthetic unicompartmental arthroplasty of left knee; Translations: [Presence of left artificial knee joint] 06-10-2024 Chronic Other connective tissue disease (6 sources) Presence of left artificial knee joint; Translations: [Knee joint replacement] Onset: 4 06-11-2024 Chronic Other connective tissue disease (1 source) Presence of unspecified artificial knee joint; Translations: [Presence of unspecified artificial knee joint] Onset: 4 Chronic Other gastrointestinal disorders (4 sources) History of bariatric surgical procedure; Translations: [Bariatric surgery status complicating , second trimester] Onset: 9 05-20-2019 Episodic Other gastrointestinal disorders (4 sources) History of bypass of stomach; Translations: [Bariatric surgery status] Onset: 4 09-04-2024 Episodic Other gastrointestinal disorders (2 sources) Bariatric surgery status; Translations: [Bariatric surgery status] Onset: 4 Episodic Other lower respiratory disease (13 sources) Dyspnea; Translations: [Dyspnea, unspecified] 09-06-2023 Episodic Other non-traumatic joint disorders (19 sources) Loose body in joint; Translations: [Loose body in unspecified joint] Onset: 3 04-20-2023 Chronic Other nutritional; endocrine; and metabolic disorders (6 sources) Morbid obesity; Translations: [Morbid (severe) obesity due to excess calories] Onset: 6 09-13-2019 Chronic Other nutritional; endocrine; and metabolic disorders (2 sources) Body mass index 30+ - obesity; Translations: [Body mass index (BMI) 36.0-36.9, adult] 07-05-2024 Chronic Other nutritional; endocrine; and metabolic disorders (5 sources) Body mass index 40+ - severely obese; Translations: [Morbid (severe) obesity due to excess calories] Onset: 6 04-18-2016 Chronic Other nutritional; endocrine; and metabolic disorders (19 sources) Hypomagnesemia; Translations: [Hypomagnesemia] Onset: 3 04-20-2023 Chronic Other nutritional; endocrine; and metabolic disorders (19 sources) Obesity; Translations: [Obesity, unspecified] Onset: 3 04-20-2023 Chronic Other nutritional; endocrine; and metabolic disorders (1 source) Body mass index (BMI) 36.0-36.9, adult; Translations: [Body mass index (BMI) 36.0-36.9, adult] Onset: 4 Chronic Other and delivery including normal (14 sources) Second trimester ; Translations: [Encounter for supervision of normal , unspecified, second trimester] 07-16-2024 Episodic Other screening for suspected conditions (not mental disorders or infectious disease) (10 sources) Alpha-fetoprotein blood test status; Translations: [Encounter for screening for raised alphafetoprotein level] Onset: 4 08-12-2024 Episodic Other upper respiratory infections (2 sources) Acute maxillary sinusitis, unspecified; Translations: [Acute maxillary sinusitis, unspecified] Onset: 3 Episodic Previous (4 sources) ; Translations: [Maternal care for unspecified type scar from previous delivery] Onset: 4 09-04-2024 Episodic Residual codes; unclassified (13 sources) History of arthroscopy of knee joint; Translations: [Other specified postprocedural states] 02-15-2024 Episodic Residual codes; unclassified (1 source) Family history of clubfoot; Translations: [Family history of other diseases of the musculoskeletal system and connective tissue] 07-05-2024 Episodic Residual codes; unclassified (1 source) Gestation period, 12 weeks; Translations: [12 weeks gestation of ] 07-05-2024 Episodic Residual codes; unclassified (2 sources) Gestation period, 14 weeks; Translations: [14 weeks gestation of ] 07-16-2024 Episodic Residual codes; unclassified (2 sources) Gestation period, 18 weeks; Translations: [18 weeks gestation of ] 08-12-2024 Episodic Residual codes; unclassified (3 sources) Gestation period, 21 weeks; Translations: [21 weeks gestation of ] 09-04-2024 Episodic Residual codes; unclassified (2 sources) 21 weeks gestation of ; Translations: [21 weeks gestation of ] Onset: Episodic Residual codes; unclassified (1 source) History of uterine scar from previous surgery; Translations: [History of uterine scar from previous surgery] Onset: 4 Episodic Residual codes; unclassified (1 source) Family history of other diseases of the musculoskeletal system and connective tissue; Translations: [Family history of other diseases of the musculoskeletal system and connective tissue] Onset: 4 Episodic Residual codes; unclassified (1 source) 12 weeks gestation of ; Translations: [12 weeks gestation of ] Onset: 4 Episodic Residual codes; unclassified (2 sources) Gestation period, 25 weeks; Translations: [25 weeks gestation of ] 10-01-2024 Episodic Syncope (13 sources) Near syncope; Translations: [Syncope and collapse] 09-06-2023 Episodic Unclassified (2 sources) Patient encounter status; Translations: [Health care maintenance] Onset: 0 01-05-2020 Unclassified (1 source) IUD in place in Onset: 4 Past or Other Problems Problem Classification Problem Date Documented Date Episodic/Chronic Administrative/social admission (1 source) Encounter for pre-employment examination; Translations: [Encounter for pre-employment examination] Onset: 07-10-2024 Episodic Cardiac dysrhythmias (19 sources) Palpitations; Translations: [Palpitations] Onset: 04-20-2023 3 Episodic Contraceptive and procreative management (2 sources) Intrauterine contraceptive device in situ; Translations: [Encounter for routine checking of intrauterine contraceptive device] 05-30-2024 Episodic Malaise and fatigue (5 sources) Fatigue; Translations: [Other fatigue] Onset: 04-18-2016 04-18-2016 Episodic Other aftercare (1 source) Other salvage determiner (current) drug therapy; Translations: [Other salvage determiner (current) drug therapy] Onset: 03-12-2024 Episodic Other complications of (17 sources) Uncertain viability of ; Translations: [ with inconclusive viability, not applicable or unspecified] Onset: 05-24-2024 05-24-2024 Episodic Other complications of (1 source) Supervision of high risk , unspecified, unspecified trimester; Translations: [Supervision of high risk , unspecified, unspecified trimester] Onset: 05-31-2024 Episodic Other complications of (1 source) Retained intrauterine contraceptive device in , first trimester; Translations: [Retained intrauterine contraceptive device in , first trimester] Onset: 05-31-2024 Episodic Other diseases of veins and lymphatics (19 sources) Peripheral venous insufficiency; Translations: [Venous insufficiency (chronic) (peripheral)] Onset: 04-20-2023 04-20-2023 Episodic Other non-traumatic joint disorders (15 sources) Pain in left knee; Translations: [Left knee pain] Onset: 02-15-2024 02-15-2024 Episodic Residual codes; unclassified (1 source) Other specified postprocedural states; Translations: [Other specified postprocedural states] Onset: 02-29-2024 Episodic Spondylosis; intervertebral disc disorders; other back problems (19 sources) Sacroiliac joint pain; Translations: [Sacrococcygeal disorders, not elsewhere classified] Onset: 04-20-2023 04-20-2023 Episodic Unclassified (1 source) History of bypass of stomach 09-04-2024 Varicose veins of lower extremity (19 sources) Varicose veins of left lower limb; Translations: [Asymptomatic varicose veins of left lower extremity] Onset: 04-20-2023 04-20-2023 Episodic Viral infection (19 sources) Genital warts; Translations: [Anogenital (venereal) warts] Onset: 04-20-2023 04-20-2023 Episodic Results Test Name Value Interpretation Reference Range Facility Urinalysis macro (dipstick) panel (U)on 10-01-2024 Bilirubin, UA Negative Negative - 4(70) +++ mg/dL [facility] Blood, UA Negative Negative - 50 Asif/mcL [facility] Clarity, UA Clear [facility] Color, UA Yellow [facility] Glucose, UA Negative Negative - 1999(110) ++++ mg/dL [facility] Interpretation and review of laboratory results Abnormal [facility] Ketones, UA Positive Negative - 160(16) ++++ mg/dL [facility] Leukocytes, UA Negative Negative - 500+++ Shivani/mcL [facility] Nitrite, UA Negative Negative - Positive [facility] pH, UA 6.5 5 - 9 [facility] Protein, UA Negative Negative - 2000(20) ++++ mg/dL [facility] Spec Grav, UA 1.025 1 - 1.03 [facility] Urobilinogen, UA 1.0 0.2 - 12 mg/dL [facility] AFP, SERUM, OPEN SPINA BIFID Aon 08-14-2024 AFP MOM 1.32 . [facility] AFP VALUE 43.5 ng/mL . [facility] COMMENT: Comment . [facility] Comment on above: Irena Jones , Ph.D., [facility] Director References: Available Upon Request. Multiples Of Median Cutoffs For AFP Elevations Vela 2.5 Black 2.8 IDD 2.0 Twins 4.5 Abbreviation Definitions IDD - Insulin Dep Diabetes OSBR - Open Spina Bifida Risk For further inquiries contact [facility] at [phone]. This test was developed and its performance characteristics determined by [employer]. It has not been cleared or approved by the Food and Drug Administration. Performed at: [facility] [place] [address] [place], [place] [id number] Experience Design Director: Hellen Hinson [facility], Phone: [phone] GEST. AGE ON COLLECTION DATE 18.1 . weeks [facility] GESTAT. AGE BASED ON Ultrasound . [facility] Comment on above: 18.1 on 08/12/2024 Recalculations are not recommended when gestational dating by LMP and ultrasound are within 10 days. INSULIN DEP DIABETES No . [facility] INTERPRETATION Comment . [facility] Comment on above: Interpretation: Scre en Negative This result is screen negative for OSB. The AFP MoM calculated is based on the gestational age provided. MS-AFP can identify up to 80% of open neural tube defects. Closed neural tube defects and some open defects may not be detected by this test. This test does not screen for Down Syndrome or Trisomy 18. If screening for Down Syndrome or Trisomy 18 is desired, contact [facility] to discuss available options. The [employer] recommends amniocentesis be offered to women age 35 and older. [age] [facility] MULTIPLE GESTATION No . [facility] OSBR RISK 1 IN 4529 . [facility] RACE . [facility] RESULTS Report . [facility] TEST RESULTS: Negative . [facility] WEIGHT 239 . lbs [facility] N N ULTRASOUND [id number] 1 18 N 1 Y 239 N N N N N White/ [facility] Urinalysis macro (dipstick) panel (U)on 08-12-2024 Bilirubin, UA Negative Negative - 4(70) +++ mg/dL [facility] Blood, UA Negative Negative - 50 Asif/mcL [facility] Clarity, UA Clear [facility] Color, UA Yellow [facility] Glucose, UA Negative Negative - 1999(110) ++++ mg/dL [facility] Interpretation and review of laboratory results Abnormal [facility] Ketones, UA Positive Negative - 160(16) ++++ mg/dL [facility] Comment on above: trace Leukocytes, UA Negative Negative - 500+++ Shivani/mcL [facility] Nitrite, UA Negative Negative - Positive [facility] pH, UA 6 5 - 9 [facility] Protein, UA Negative Negative - 2000(20) ++++ mg/dL [facility] Spec Grav, UA 1.015 1 - 1.03 [facility] Urobilinogen, UA 0.2 0.2 - 12 mg/dL [facility] Urinalysis macro (dipstick) panel (U)on 07-16-2024 Bilirubin, UA Negative Negative - 4(70) +++ mg/dL [facility] Blood, UA Negative Negative - 50 Asif/mcL [facility] Clarity, UA Clear [facility] Color, UA Yellow [facility] Glucose, UA Negative Negative - 1999(110) ++++ mg/dL [facility] Interpretation and review of laboratory results Normal [facility] Ketones, UA Negative Negative - 160(16) ++++ mg/dL [facility] Leukocytes, UA Negative Negative - 500+++ Shivani/mcL [facility] Nitrite, UA Negative Negative - Positive [facility] pH, UA 5.5 5 - 9 [facility] Protein, UA Negative Negative - 1999(20) ++++ mg/dL [facility] Spec Grav, UA 1.03 1 - 1.03 [facility] Urobilinogen, UA 0.2 0.2 - 12 mg/dL [facility] BLOOD UREA NITROGENon 2023 Urea nitrogen [Mass/Vol] 9 mg/dL Normal 5-23 [facility] Comment on above: Performed By: #### Joao BCA, 3094-0, PLASTERER STUCCO, LIVR, 5193-8 #### [facility] ([id number]) [address], [address] [place] [address] CBC AND AUTO DIFFon 07-10-20 ABSOLUTE BASOPHIL 0.0 X10E9/L Normal 0.0-0.2 [facility] Comment on above: Performed By: #### Joao BCA, 3094-0, PLASTERER STUCCO, LIVR, 5193-8 #### [facility] ([id number]) [address], [address] [address] ABSOLUTE NEUTROPHIL 5.1 X10E9/L Normal 1.5-6.6 [facility] Comment on above: Performed By: #### Joao BCA, 3094-0, PLASTERER STUCCO, LIVR, 5193-8 #### [facility] ([id number]) [address] [address] Basophils/100 WBC (Bld) 0.6 % Normal [facility] Comment on above: Performed By: #### Joao BCA, 3094-0, PLASTERER STUCCO, LIVR, 5193-8 #### [facility] ([id number]) [address], [address] [place] [address] Eosinophils (Bld) [#/Vol] 0.1 10*3/uL Normal 0.0-0.4 [facility] Comment on above: Performed By: #### C BCA, 3094-0, PLASTERER STUCCO, LIVR, 519-8 #### [facility] ([id number]) [address] [address] [place] [address] Eosinophils/100 WBC (Bld) 1.6 % Normal [facility] Comment on above: Performed By: #### C BCA, 3094-0, PLASTERER STUCCO, LIVR, 519-8 #### [facility] ([id number]) [address] [address] [place] [address] Erythrocyte distribution width (RBC) [Ratio] 13.1 % Normal 11.5-15.0 [facility] Comment on above: Performed By: #### Joao BCA, 3094-0, PLASTERER STUCCO, LIVR, 5198 #### [facility] ([id number]) [address] [address] [place] [address] Hematocrit (Bld) [Volume fraction] 39.1 % Normal 35-47 [facility] Comment on above: Performed By: #### Joao BCA, 3094-0, PLASTERER STUCCO, LIVR, 519-8 #### [facility] ([id number]) [address] [address] [place] [address] Hemoglobin (Bld) [Mass/Vol] 13.4 g/dL Normal 11.7-15.5 [facility] Comment on above: Performed By: #### Joao BCA, 3094-0, PLASTERER STUCCO, LIVR, 519-8 #### [facility] ([id number]) [address] [address] [place] [address] Lymphocytes (Bld) [#/Vol] 1.3 10*3/uL Normal 1.0-3.5 [facility] Comment on above: Performed By: #### Joao BCA, 3094-0, PLASTERER STUCCO, LIVR, 8 #### [facility] ([id number]) [address], [address] [place] [address] Lymphocytes/100 WBC (Bld) 19.0 % Normal [facility] Comment on above: Performed By: #### C BCA, 3094-0, PLASTERER STUCCO, LIVR, 5192-8 #### [facility] ([id number]) [address], [address] [place] [address] MCH (RBC) [Entitic mass] 30.6 pg Normal 27-34 [facility] Comment on above: Performed By: #### C BCA, 3094-0, PLASTERER STUCCO, LIVR, 8 #### [facility] ([id number]) [address], [address] [place] [address] MCHC (RBC) [Mass/Vol] 34.3 g/dL Normal 32-36 [facility] Comment on above: Performed By: #### C BCA, 3094-0, PLASTERER STUCCO, LIVR, 5198 #### [facility] ([id number]) [address], [address] [place] [address] MCV (RBC) [Entitic vol] 89 fL Normal 80-100 [facility] Comment on above: Performed By: #### Joao BCA, 3094-0, PLASTERER STUCCO, LIVR, 8 #### [facility] ([id number]) [address], [address] [place] [address] Monocytes (Bld) [#/Vol] 0.5 10*3/uL Normal 0-0.9 [facility] Comment on above: Performed By: #### C BCA, 3094-0, PLASTERER STUCCO, LIVR, 519-8 #### [facility] ([id number]) [address], [address] [place] [address] Monocytes/100 WBC (Bld) 6.7 % Normal [facility] Comment on above: Performed By: #### C BCA, 3094-0, PLASTERER STUCCO, LIVR, 5193-8 #### [facility] ([id number]) [address], [address] [place] [address] Neutrophils/100 WBC (Bld) 72.1 % Normal [facility] Comment on above: Performed By: #### Joao BCA, 3094-0, PLASTERER STUCCO, LIVR, 519-8 #### [facility] ([id number]) [address], [address] [place] [address] Platelet mean volume (Bld) [Entitic vol] 7.9 fL Normal 7-12 [facility] Comment on above: Performed By: #### Joao BCA, 3094-0, PLASTERER STUCCO, LIVR, 519-8 #### [facility] ([id number]) [address], [address] [place] [address] Platelets (Bld) [#/Vol] 232 10*3/uL Normal 150-450 [facility] Comment on above: Performed By: #### Joao BCA, 3094-0, PLASTERER STUCCO, LIVR, 5193-8 #### [facility] ([id number]) [address], [address] [place] [address] RBC COUNT 4.37 X10E12/L Normal 3.80-5.20 [facility] Comment on above: Performed By: #### Joao BCA, 3094-0, PLASTERER STUCCO, LIVR, 5193-8 #### [facility] ([id number]) [address], [address] [place] [address] WBC (Bld) [#/Vol] 7.0 10*3/uL Normal 4.0-11.0 [facility] Comment on above: Performed By: #### Joao BCA, 3094-0, PLASTERER STUCCO, LIVR, 5193-8 #### [facility] ([id number]) [address], [address] [place] [address] CREATININEon 07-10-2024 Creatinine [Mass/Vol] 0.54 mg/dL Normal 0.40-1.00 [facility] Comment on above: Result Comment: METH OD TRACEABLE TO IDMS STANDARD Performed By: #### C ILYA, 3094-0, PLASTERER STUCCO, LIVR, 5193-8 #### [facility] ([id number]) [address], [address] [address] eGFR (CKD-EPI) NON-RACE DEPENDENT >90 Normal >59 [facility] Comment on above: Result Comment: Reported eGFR is based on the CKD-EPI 2020 equation that does not use a race coefficient. Performed By: #### C ILYA, 3094-0, PLASTERER STUCCO, LIVR, 5193-8 #### [facility] ([id number]) [address] [address] HBV surface Ab IA Qnon 07-10 Anti HBs quant. <8.00 Normal [facility] Comment on above: Result Comment: Vacc inated: >=12mIU/mL, Positive (Immune) Unvaccinated: <8mIU/mL, Negative (Not Immune) 8-11.99 mIU/mL: Indeterminate, (Considered Not Immune) Performed By: #### C ILYA, 3094-0, PLASTERER STUCCO, LIVR, 5193-8 #### [facility] ([id number]) [address] [address] LIVER PANELon 07-10-2024 Albumin [Mass/Vol] 3.8 g/dL Normal 3.2-5.3 [facility] Comment on above: Performed By: #### C ILYA, 3094-0, PLASTERER STUCCO, LIVR, 5193-8 #### [facility] ([id number]) [address] [address] ALP [Catalytic activity/Vol] 44 U/L Normal 39-130 [facility] Comment on above: Performed By: #### C BCA, 3094-0, PLASTERER STUCCO, LIVR, 5193-8 #### [facility] ([id number]) [address], [address] [place] [address] ALT [Catalytic activity/Vol] 11 U/L Normal 0-31 [facility] Comment on above: Performed By: #### C BCA, 3094-0, PLASTERER STUCCO, LIVR, 5193-8 #### [facility] ([id number]) [address], [address] [place] [address] AST [Catalytic activity/Vol] 16 U/L Normal 0-41 [facility] Comment on above: Performed By: #### C BCA, 3094-0, PLASTERER STUCCO, LIVR, 519-8 #### [facility] ([id number]) [address], [address] [place] [address] Bilirubin [Mass/Vol] 0.5 mg/dL Normal 0.3-1.2 [facility] Comment on above: Performed By: #### C BCA, 3094-0, PLASTERER STUCCO, LIVR, 5193-8 #### [facility] ([id number]) [address], [address] [place] [address] Bilirubin.direct [Mass/Vol] 0.1 mg/dL Normal 0.0-0.4 [facility] Comment on above: Performed By: #### C BCA, 3094-0, PLASTERER STUCCO, LIVR, 5193-8 #### [facility] ([id number]) [address], [address] [place] [address] Protein [Mass/Vol] 6.5 g/dL Normal 6.0-8.0 [facility] Comment on above: Performed By: #### C BCA, 3094-0, PLASTERER STUCCO, LIVR, 5193-8 #### [facility] ([id number]) [address], [address] [place] [address] Unlisted Lab TestOrdered By: Jaci Atwood on 06-26-2024 [facility] TB TOTAL PROTEIN 24 HOUR UR INEon 06-21-2024 Protein (U) [Mass/Vol] 11.3 mg/dL NINF - 11.9 mg/dL [facility]H TOTAL PROTEIN 24 HOUR URINE 101.7 NINF [facility] TOTAL VOLUME 24 HOUR URINE 900 mL/24hr [facility] Urinalysis macro (dipstick) panel (U)on 06-19-2024 Bilirubin, UA Negative Negative - 4(70) +++ mg/dL [facility] Blood, UA Negative Negative - 50 Asif/mcL [facility] Clarity, UA Clear [facility] Color, UA Yellow [facility] Glucose, UA Negative Negative - 1999(110) ++++ mg/dL [facility] Interpretation and review of laboratory results Normal [facility] Ketones, UA Negative Negative - 160(16) ++++ mg/dL [facility] Leukocytes, UA Negative Negative - 500+++ Shivani/mcL [facility] Nitrite, UA Negative Negative - Positive [facility] pH, UA 5.5 5 - 9 [facility] Protein, UA Negative Negative - 1999(20) ++++ mg/dL [facility] Spec Grav, UA 1.020 1 - 1.03 [facility] Urobilinogen, UA 1.0 0.2 - 12 mg/dL [facility] ALL CBC WITH AUTO DIFFon BASOPHILS ABSOLUTE AUTO 0.0 [facility] Basophils/100 WBC (Bld) 0.4 % 0.2 - 2.0 % [facility] Eosinophils/100 WBC (Bld) 1.3 % 0.9 - 7.0 % [facility] Erythrocyte distribution width (RBC) [Ratio] 12.5 % 11.0 - 15.0 % [facility] Hematocrit (Bld) [Volume fraction] 36.9 % 36.0 - 48.0 % [facility] Hemoglobin (Bld) [Mass/Vol] 12.4 g/dL 12.0 - 16.0 g/dL [facility] IMMATURE GRANULOCYTES ABS AUTO 0.02 [facility] Immature granulocytes/100 WBC (Bld) 0.3 % 0.0 - 0.5 % [facility] Interpretation and review of laboratory results Abnormal [facility] LYMPHOCYTES ABSOLUTE AUTO 1.2 [facility] Lymphocytes/100 WBC (Bld) 17.0 % Low 20.5 - 60.0 % [facility] MCH (RBC) [Entitic mass] 29.9 pg 26.7 - 34.0 pg [facility] MCHC (RBC) [Mass/Vol] 33.6 g/dL 29.9 - 35.2 g/dL [facility] MCV (RBC) [Entitic vol] 88.9 fL 81.0 - 99.0 fL [facility] MONOCYTES ABSOLUTE AUTO 0.4 [facility] Monocytes/100 WBC (Bld) 6.0 % 1.7 - 12.0 % [facility] NEUTROPHILS ABSOLUTE AUTO 5.3 [facility] Neutrophils/100 WBC (Bld) 75.0 % 43.0 - 75.0 % [facility] Platelet mean volume (Bld) [Entitic vol] 10.0 fL 9.5 - 13.5 fL [facility] EO # 0.1 [facility] PLT 173 [facility] RBC 4.15 Low [facility] WBC 7.1 [facility] XR knee LT 3V - NOT FOR ER U [facility] 06-11-2024 XR knee LT 3V - NOT FOR ER USE [facility] [address] [place] [address] XRay Report Signed Patient: Lucila Jacques MR#: [id number] [birth year] : 1990 Acct:[id number] Age/Sex: 33 / F ADM Date: 06/11/24 Loc: [facility] Room: Type: [facility] Attending Dr: Santa Estrada II, MD [...] Vikki Rivers M.D.06/11/2024 2:26 PM Dictation Location: [place] [address] Transcribed By: [facility] 06/11/24 142 Dictated By: Vikki Rivers MD 06/11/24 142 Signed By: 06/11/24 142 Normal [facility] HCG ( test) Ql (U)o n 05-23-2024 Interpretation and review of laboratory results Abnormal [facility] Preg Test, Ur Positive [facility] US OB < 14 WEEKS EARLYon US [...] on 04-29-2024 Amphetamines Ql (U) Negative Negative [facility] Barbiturates [Presence] in U rine by Screen methodOrdered By: Yusef Curran on 04-29-2024 Barbiturates Screen Ql (U) Negative Negative [facility] Benzodiazepines Screen Ql (U )Ordered By: Yusef Curran on 04-29-2024 Benzodiazepines Ql (U) Negative Negative [facility] Benzoylecgonine [Presence] i n Urine by Screen methodOrdered By: Yusef Curran on 04-29-2024 Benzoylecgonine Screen Ql (U) Negative Negative [facility] Cannabinoids [Presence] in U rine by Screen methodOrdered By: Yusef Curran on 04-29-2024 Cannabinoids Screen Ql (U) Negative Negative [facility] Comment on above: These are unconfirme d results and should not be used for legal purposes. Drug Cut-Off Concentration: AMPH 1000 ng/mL SILVIA 200 ng/mL DARLYN 200 ng/mL COCM 300 ng/mL OP 300 ng/mL PCP 25 ng/mL THC 20 ng/mL Drug Screen,Urineon 04-29-20 24 Amphetamine Screen,Urine Negative Normal Negative [facility] Comment on above: Performed By: #### A 1C WTH eA, ALB, [id number], HGB #### [place] [address] [place] #### NICOTINE #### [facility] , Barbiturate Screen,Urine Negative Normal Negative [facility] Comment on above: Performed By: #### A 1C WTH eA, ALB, [id number], HGB #### [place] [address] [place] #### NICOTINE #### [facility] , Benzodiazepines Screen,Urine Negative Normal Negative [facility] Comment on above: Performed By: #### A 1C WTH eA, ALB, [id number], HGB #### [place] [address] [place] #### NICOTINE #### [facility] , Cannabinoid Screen,Urine Negative Normal Negative [facility] Comment on above: Result Comment: Thes e are unconfirmed results and should not be used for legal purposes. Drug Cut-Off Concentration: AMPH 1000 ng/mL SILVIA 200 ng/mL DARLYN 200 ng/mL COCM 300 ng/mL OP 300 ng/mL PCP 25 ng/mL THC 20 ng/mL PERFORMED BY: [place] [address] PATHOLOGIST LEMON GROWER GENO BENEDICT M.D. Performed By: #### A 1C WTH eA, ALB, [id number], HGB #### [address] #### NICOTINE #### [facility] , Cocaine Screen,Urine Negative Normal Negative [facility] Comment on above: Performed By: #### A 1C WTH eA, ALB, [id number], HGB #### [address] #### NICOTINE #### [facility] , Opiate Screen,Urine Negative Normal Negative [facility] Comment on above: Performed By: #### A 1C WTH eA, ALB, [id number], HGB #### [address] #### NICOTINE #### [facility] , Phencyclidine Screen,Urine Negative Normal Negative [facility] Comment on above: Performed By: #### A 1C WTH eA, ALB, [id number], HGB #### [address] #### NICOTINE #### [facility] , HCG ( test) IA.rapi d Ql (U)Ordered By: Yusef Curran on 04-29-2024 HCG ( test) Ql (U) Negative [facility] HCG,Urineon 04-29-2024 Beta HCG ( test) Ql (U) Negative Normal [facility] Comment on above: Result Comment: PERF ORMED BY: [place] [address] PATHOLOGIST LEMON GROWER GENO BENEDICT M.D. Performed By: #### U HCG #### [place] [address] [place] Vaughn 04-29-2024 L Specimen: [id number] Received: 04/29/24 Status: MICHAEL Young Num: [id number] Spec Type: Surgical Subm Dr: Santa Estrada MD Tissues: A Joint/Knee (LT KNEE) Procedures: HE, Gross/Micro L4, Decalcification Age/ Patient Sex Location Account Attending Physician SawyerLucila R 33/F [place] [id number] Santa Estrada MD SPEC NUM: [id number] RECD: 04/29/24 STATUS: MICHAEL YOUNG NUM: [id number] NIELS: 04/29/24- SUBM DR: Santa Estrada MD ENTERED: 04/29/[address]: SPEC TYPE: Surgical DEPT: S ORDERED: [...] examination, no sections are submitted. CPT Codes 44991 Specimen: [id number] Received: 04/29/24 Status: MICHAEL Young Num: [id number] Spec Type: Surgical Subm Dr: Santa Estrada MD Tissues: A Joint/Knee (LT KNEE) Procedures: HE, Gross/Micro L4, Decalcification Patient: Lucila Jacques [id number] (Continued) Specimen: [id number] Received: 04/29/24 (Continued) Signed (signature on file) Jamia Trevizo MD 05/07/24 1703 Specimen: [id number] Received: 04/29/24 Status: MICHAEL Young Num: [id number] Spec Type: Surgical Subm Dr: Santa Estrada MD Tissues: A Joint/Knee (LT KNEE) Procedures: VIAKSH Gross/Micro L4, Decalcification Patient: JacquesLucila [id number] (Continued) Specimen: [id number] Received: 04/29/24 (Continued) BONE AND TISSUE Specimen: [id number] Received: 04/29/24 Status: MICHAEL Young Num: [id number] Spec Type: Surgical Subm Dr: Santa Estrada MD Tissues: A Joint/Knee (LT KNEE) Procedures: VIKASH, Gross/Micro L4, Decalcification Patient: Lucila Jacques [id number] (Continued) Signed (signature on file) True-Martinez Trevizo MD 05/07/24 1703 Normal [facility] Opiates [Presence] in Urine by Screen methodOrdered By: Yusef Curran on 04-29-2024 Opiates Screen Ql (U) Negative Negative [facility] Phencyclidine Screen Ql (U)O rdered By: Yusef Curran on 04-29-2024 Phencyclidine Ql (U) Negative Negative [facility] XR knee LT 2Von 04-29-2024 XR knee LT 2V [facility] [place] [address] XRay Report Signed Patient: Lucila Jacques MR#: [id number] 33 : 1990 Acct:[id number] Age/Sex: 33 / F ADM Date: 04/29/24 Loc: [place] Room: Type: [facility] Attending Dr: Santa Estrada II, MD [...] Harmeet Lopez M.D.04/29/2024 2:44 PM Dictation Location: [facility]IO[facility]PC-12 Transcribed By: KHRIS 04/29/24 1444 Dictated By: Harmeet Lopez DO 04/29/24 1443 Signed By: 04/29/24 1444 Normal [facility] XR tibia fibula LT 2V*on XR tibia fibula LT 2V* [facility] [address] [place] [address] XRay Report Signed Patient: Lucila Jacques MR#: [id number] [birth year] : 1990 Acct:[id number] Age/Sex: 33 / F ADM Date: 04/19/24 Loc: [facility] Room: Type: [facility] Attending Dr: Santa Estrada II, MD Copies to: Santa Estrada MD Ordering Provider: Santa Estrada MD Date of Service: 04/19/24 XR/XR tibia fibula LT 2V*: M17.12 - Unilateral primary osteoarthritis, left knee ([id number]) XR/XR femur LT 2V*: M17.12 - Unilateral [...] Harmeet Lopez M.D.04/19/2024 9:52 AM Dictation Location: [place] [address] Transcribed By: [facility] 04/19/24 0952 Dictated By: Harmeet Lopez DO 04/19/24 0950 Signed By: 04/19/24 0952 Normal [facility] Cytology Cervical or vaginal smear or scraping studyon 04-16-2024 [facility] Automated basophil %Ordered By: Santa Estrada on 04-15-2024 Basophils/100 WBC (Bld) 0.7 % . [facility] Comment on above: Performed By: #### B MP, CBC #### [facility] [address] [place] [address] #### NICOTINE, FRUC #### [facility] , Automated basophil countOrde red By: Santa Estrada on 04-15-2024 Basophils (Bld) [#/Vol] 0.0 10*3/uL 0.0-0.2 [facility] Comment on above: Result Comment: PERF ORMED BY: [place] [address] PATHOLOGIST LEMON GROWER GENO BENEDICT M.D. Performed By: #### B MP, CBC #### [address] #### NICOTINE, FRUC #### [facility] , Automated blood monocyte cou ntOrdered By: Santa Estrada on 04-15-2024 Monocytes (Bld) [#/Vol] 0.3 10*3/uL 0.0-0.8 [facility] Comment on above: Performed By: #### B MP, CBC #### [place] [address] [place] #### NICOTINE, FRUC #### [facility] , Automated eosinophil %Ordere d By: Santa Estrada on 04-15-2024 Eosinophils/100 WBC (Bld) 3.0 % . [facility] Comment on above: Performed By: #### B MP, CBC #### [facility] [address] [place] [address] [place] #### NICOTINE, FRUC #### [facility] , Automated eosinophil countOr dered By: Santa Estrada on 04-15-2024 Eosinophils (Bld) [#/Vol] 0.1 10*3/uL 0.0-0.45 [facility] Comment on above: Performed By: #### B MP, CBC #### [place] [address] [place] #### NICOTINE, FRUC #### [facility] , Automated monocyte %Ordered By: Santa Estrada on 04-15-2024 Monocytes/100 WBC (Bld) 7.6 % . [facility] Comment on above: Performed By: #### B MP, CBC #### [place] [address] [place] #### NICOTINE, FRUC #### [facility] , Automated neutrophil %Ordere d By: Santa Estrada on 04-15-2024 Neutrophils/100 WBC (Bld) 55.1 % . [facility] Comment on above: Performed By: #### B MP, CBC #### [place] [address] [place] #### NICOTINE, FRUC #### [facility] , Basic Metabolic Panelon 03-26 GFR/1.73 sq M.predicted MDRD (S/P/Bld) [Vol rate/Area] mL/min/{1.73_m2} Normal [facility] Comment on above: Performed By: #### A 1C WTH eA, ALB, [id number], HGB #### [place] [address] [place] #### NICOTINE #### [facility] , Bilirubin Test strip Ql (U)O rdered By: Santa Estrada on 04-15-2024 Bilirubin Ql (U) Negative Negative [facility] Calcium [Mass/volume] in Ser um or PlasmaOrdered By: Santa Estrada on 04-15-2024 Calcium [Mass/Vol] 9.0 mg/dL 8.6-10.3 [facility] Comment on above: Result Comment: PERF ORMED BY: [place] [address] PATHOLOGIST LEMON GROWER GENO BENEDICT M.D. Performed By: #### A 1C WTH eA, ALB, [id number], HGB #### [place] [address] [place] #### NICOTINE #### [facility] , Carbon dioxide, total [Moles /volume] in Serum or PlasmaOrdered By: Santa Estrada on 04-15-2024 CO2 [Moles/Vol] 26.3 mmol/L 21.0-31.0 [facility] Comment on above: Performed By: #### A 1C WTH eA, ALB, [id number], HGB #### [address] #### NICOTINE #### [facility] , Chloride [Moles/volume] in S liam or PlasmaOrdered By: Santa Estrada on 04-15-2024 Chloride [Moles/Vol] 106 mmol/L 98-107 [facility] Comment on above: Performed By: #### A 1C WTH eA, ALB, [id number], HGB #### [address] #### NICOTINE #### [facility] , Color of Urine by AutoOrdere d By: Santa Estrada on 04-15-2024 Color (U) Yellow Yellow [facility] Comment on above: Order Comment: Name Collection Type:: Clean-Voided Midstream Performed By: #### U A #### [address] Complete Blood Count Auto Di ffon 04-15-2024 Mean Corpuscular HGB Conc 34.0 g/dL Normal 32.0-35.0 [facility] Comment on above: Performed By: #### B MP, CBC #### [place] [address] [place] #### NICOTINE, FRUC #### [facility] , NRBC% 0.1 /100{WBC} Normal 0-0.5 [facility] Comment on above: Performed By: #### B MP, CBC #### [address] #### NICOTINE, FRUC #### [facility] , Cotinine [Mass/volume] in Se rum or PlasmaOrdered By: Santa Estrada on 04-15-2024 Cotinine [Mass/Vol] <1.0 ng/mL . [facility] Comment on above: This test was develo ped and its performance characteristicsdetermined by [facility]. It has not been cleared orapproved by the Food and Drug Administration.Cotinine levels greater than 20.0 are consistent with theuse of tobacco or tobacco cessation products.Performed at: [address] [id number] Director: Marcellus Dave MD, Phone: [phone] Creatinine [Mass/volume] in Serum or PlasmaOrdered By: Santa Estrada on 04-15-2024 Creatinine [Mass/Vol] 0.65 mg/dL 0.60-1.20 [facility] Comment on above: Performed By: #### A 1C WTH eA, ALB, [id number], HGB #### [place] [address] [place] #### NICOTINE #### [facility] , Erythrocyte distribution wid th [Ratio] by Automated countOrdered By: Santa Esrtada on 04-15-2024 Erythrocyte distribution width (RBC) [Ratio] 13.2 % 11.9-15.3 [facility] Comment on above: Performed By: #### B MP, CBC #### [place] [address] [place] #### NICOTINE, FRUC #### [facility] , Erythrocytes [#/volume] in B lood by Automated countOrdered By: Santa Estrada on 04-15-2024 RBC (Bld) [#/Vol] 4.52 10*6/uL 3.60-5.00 [facility] Comment on above: Performed By: #### B MP, CBC #### [place] [address] [place] #### NICOTINE, FRUC #### [facility] , Fructosamineon 04-15-2024 Fructosamine 219 umol/L Normal 0-285 [facility] Comment on above: Result Comment: Publ ished reference interval for apparently healthy subjects between age 20 and 60 is 205 - 285 umol/L and in a poorly controlled diabetic population is 228 - 563 umol/L with a mean of 396 umol/L. Performed at: [facility] [address] [place], [place] [id number] Experience Design Director: Dario West PhD, Phone: [phone] Performed By: #### A 1C WTH eA, ALB, [id number], HGB #### [facility] [address] [place] [address] #### NICOTINE #### [facility] , Fructosamine [Moles/volume] in Serum or PlasmaOrdered By: Santa Estrada on 04-15-2024 Fructosamine [Moles/Vol] 219 umol/L 0-285 [facility] Comment on above: Published reference interval for apparently healthysubjects between age 20 and 60 is 205 - 285 umol/L and in apoorly controlled diabetic population is 228 - 563 umol/Lwith a mean of 396 umol/L.Performed at: - [facility], [place] [id number] Director: Dario West PhD, Phone: [phone] Glucose [Mass/volume] in Ser um or PlasmaOrdered By: Santa Estrada on 04-15-2024 Glucose [Mass/Vol] 88 mg/dL 70-100 [facility] Comment on above: ADA recommended refe rence rangeRandom Glucose Reference Range is dependent on time and content of last meal. Glucose of more than 200 mg/dL in a nonstressed, ambulatory subject supports the diagnosis of Diabetes Mellitus. Result Comment: [place] om Glucose Reference Range is dependent on time and content of last meal. Glucose of more than 200 mg/dL in a nonstressed, ambulatory subject supports the diagnosis of Diabetes Mellitus. ADA recommended reference range Performed By: #### A 1C WTH eA, ALB, [id number], HGB #### [facility] [address] [place] [address] [place] #### NICOTINE #### [facility] , Hematocrit [Volume Fraction] of Blood by Automated countOrdered By: Santa Estrada on 04-15-2024 Hematocrit (Bld) [Volume fraction] 40.4 % 34.0-46.4 [facility] Comment on above: Performed By: #### B MP, CBC #### [place] [address] [place] #### NICOTINE, FRUC #### [facility] , Hemoglobin [Mass/volume] in BloodOrdered By: Santa Estrada on 04-15-2024 Hemoglobin (Bld) [Mass/Vol] 13.7 g/dL 11.8-15.4 [facility] Comment on above: Performed By: #### B MP, CBC #### [place] [address] [place] #### NICOTINE, FRUC #### [facility] , Ketones Auto test strip (U) [Mass/Vol]Ordered By: Santa Estrada on 04-15-2024 Ketones (U) [Mass/Vol] Negative Negative [facility] Leukocytes [#/volume] correc perla for nucleated erythrocytes in Blood by Automated counOrdered By: Santa Estrada on 04-15-2024 WBC corrected for nucl RBC Auto (Bld) [#/Vol] 4.1 10*3/uL 3.8-11.6 [facility] Leukocytes [#/volume] in Blo od by Automated countOrdered By: Santa Estrada on 04-15-2024 WBC (Bld) [#/Vol] 4.1 10*3/uL 3.8-11.6 [facility] Comment on above: Performed By: #### B MP, CBC #### [facility] [address] [place] [address] [place] #### NICOTINE, FRUC #### [facility] , Lymphocytes [#/volume] in Bl ood by Automated countOrdered By: Santa Estrada on 04-15-2024 Lymphocytes (Bld) [#/Vol] 1.4 10*3/uL 1.00-4.8 [facility] Comment on above: Performed By: #### B MP, CBC #### [facility] [address] [place] [address] [place] #### NICOTINE, FRUC #### [facility] , Lymphocytes/100 leukocytes i n Blood by Automated countOrdered By: Santa Estrada on 04-15-2024 Lymphocytes/100 WBC (Bld) 33.6 % . [facility] Comment on above: Performed By: #### B MP, CBC #### [place] [address] [place] #### NICOTINE, FRUC #### [facility] , MCH [Entitic mass] by Automa perla countOrdered By: Santa Estrada on 04-15-2024 MCH (RBC) [Entitic mass] 30.4 pg 24.7-34.3 [facility] Comment on above: Performed By: #### B MP, CBC #### [facility] [address] [place] [address] [place] #### NICOTINE, FRUC #### [facility] , MCHC Auto (RBC) [Mass/Vol]Or dered By: Santa Estrada on 04-15-2024 MCHC (RBC) [Mass/Vol] 34.0 g/dL 32.0-35.0 [facility] MCV [Entitic volume] by Auto mated countOrdered By: Santa Estrada on 04-15-2024 MCV (RBC) [Entitic vol] 89.4 fL 80-100 [facility] Comment on above: Performed By: #### B MP, CBC #### [facility] [address] [place] [address] [place] #### NICOTINE, FRUC #### [facility] , Neutrophils [#/volume] in Bl ood by Automated countOrdered By: Santa Estrada on 04-15-2024 Neutrophils (Bld) [#/Vol] 2.2 10*3/uL 1.8-7.7 [facility] Comment on above: Performed By: #### B MP, CBC #### [place] [address] [place] #### NICOTINE, FRUC #### [facility] , Nicotine [Mass/volume] in Se rum or PlasmaOrdered By: Santa Estrada on 04-15-2024 Nicotine [Mass/Vol] <1.0 ng/mL . [facility] Comment on above: This test was develo ped and its performance characteristicsdetermined by [facility]. It has not been cleared orapproved by the Food and Drug Administration.Nicotine levels greater than 2.0 are consistent with theuse of tobacco or tobacco cessation products. Nicotine/Cotinine Bloodon Cotinine, Blood <1.0 Normal . [facility] Comment on above: Result Comment: This test was developed and its performance characteristics determined by [facility]. It has not been cleared or approved by the Food and Drug Administration. Cotinine levels greater than 20.0 are consistent with the use of tobacco or tobacco cessation products. Performed at: [facility] Lab[address] [id number] Experience Design Director: Marcellus Dave MD, Phone: [phone] PERFORMED BY: [place] [address] PATHOLOGIST LEMON GROWER GENO BENEDICT M.D. Performed By: #### A 1C WTH eA, ALB, [id number], HGB #### [place] [address] [place] #### NICOTINE #### [facility] , Nicotine, Blood <1.0 Normal . [facility] Comment on above: Result Comment: This test was developed and its performance characteristics determined by [facility] [employer]. It has not been cleared or approved by the Food and Drug Administration. Nicotine levels greater than 2.0 are consistent with the use of tobacco or tobacco cessation products. Performed By: #### A 1C WTH eA, ALB, [id number], HGB #### [place] [address] [place] #### NICOTINE #### [facility] , Nitrite Test strip Ql (U)Ord ered By: Santa Estrada on 04-15-2024 Nitrite Ql (U) Negative Negative [facility] No Panel InformationOrdered By: Santa Estrada on 04-15-2024 Estimated GFR (CKD-EPI) > 60.0 mL/Min [facility] Creatinine Clearance (Chem N/A [facility] Nucleated erythrocytes [Pres ence] in Blood by Automated countOrdered By: Santa Estrada on 04-15-2024 Nucleated RBC Auto Ql (Bld) 0.1 /100{WBC} 0-0.5 [facility] PST Type and Screenon 2023 ABO and Rh group Nom (Bld) Blood group O Rh(D) positive Normal [facility] Comment on above: Order Comment: Date of Surgery: [id number] Result Comment: PERF ORMED BY: [place] [address] PATHOLOGIST LEMON GROWER GENO BENEDICT M.D. Platelet mean volume [Entiti c volume] in Blood by Automated countOrdered By: Santa Estrada on 04-15-2024 Platelet mean volume (Bld) [Entitic vol] 7.3 fL 6.3-10.7 [facility] Comment on above: Performed By: #### B MP, CBC #### [facility] [address] [place] [address] #### NICOTINE, FRUC #### [facility] , Platelets [#/volume] in Bloo d by Automated countOrdered By: Santa Estrada on 04-15-2024 Platelets (Bld) [#/Vol] 230 10*3/uL 150-450 [facility] Comment on above: Performed By: #### B MP, CBC #### [facility] [address] [place] [address] [place] #### NICOTINE, FRUC #### [facility] , Potassium [Moles/volume] in Serum or PlasmaOrdered By: Santa Estrada on 04-15-2024 Potassium [Moles/Vol] 4.0 mmol/L 3.5-5.1 [facility] Comment on above: Performed By: #### A 1C WTH eA, ALB, [id number], HGB #### [place] [address] [place] #### NICOTINE #### [facility] , Protein Auto test strip (U) [Mass/Vol]Ordered By: Santa Estrada on 04-15-2024 Protein (U) [Mass/Vol] Negative Negative [facility] Serum or plasma anion gap de terminationOrdered By: Santa Estrada on 04-15-2024 Anion gap [Moles/Vol] 6.7 mmol/L 6.0-15.0 [facility] Comment on above: Performed By: #### A 1C WTH eA, ALB, [id number], HGB #### [place] [address] [place] #### NICOTINE #### [facility] , Sodium [Moles/volume] in Ser um or PlasmaOrdered By: Santa Estrada on 04-15-2024 Sodium [Moles/Vol] 135 mmol/L Low 136-145 [facility] Comment on above: Performed By: #### A 1C WTH eA, ALB, [id number], HGB #### [place] [address] [place] #### NICOTINE #### [facility] , Specific gravity Auto test s trip (U) [Rel density]Ordered By: Santa Estrada on 04-15-2024 Specific gravity (U) [Rel density] 1.009 1.001-1.03 0 [facility] Urea nitrogen [Mass/volume] in Serum or PlasmaOrdered By: Santa Estrada on 04-15-2024 Urea nitrogen [Mass/Vol] 10 mg/dL 7-25 [facility] Comment on above: Performed By: #### A 1C WTH eA, ALB, [id number], HGB #### [place] [address] [place] #### NICOTINE #### [facility] , Urinalysison 04-15-2024 Appearance (U) Clear Normal Clear [facility] Comment on above: Order Comment: Name Collection Type:: Clean-Voided Midstream Performed By: #### U A #### [address] Bilirubin,Urine Negative Normal Negative [facility] Comment on above: Order Comment: Name Collection Type:: Clean-Voided Midstream Performed By: #### U A #### [address] Glucose Ql (U) Normal Normal Normal [facility] Comment on above: Order Comment: Name Collection Type:: Clean-Voided Midstream Performed By: #### U A #### [address] Ketones Ql (U) Negative Normal Negative [facility] Comment on above: Order Comment: Name Collection Type:: Clean-Voided Midstream Performed By: #### U A #### [address] Leukocyte esterase Test strip Ql (U) Negative Normal Negative [facility] Comment on above: Order Comment: Name Collection Type:: Clean-Voided Midstream Performed By: #### U A #### [place] [address] [place] Nitrite,Urine Negative Normal Negative [facility] Comment on above: Order Comment: Name Collection Type:: Clean-Voided Midstream Performed By: #### U A #### [place] [address] [place] Occult Blood,Urine Negative Normal Negative [facility] Comment on above: Order Comment: Name Collection Type:: Clean-Voided Midstream Result Comment: PERF ORMED BY: [place] [address] PATHOLOGIST LEMON GROWER GENO BENEDICT M.D. Performed By: #### U A #### [place] [address] [place] Protein,Urine Negative Normal Negative [facility] Comment on above: Order Comment: Name Collection Type:: Clean-Voided Midstream Performed By: #### U A #### [facility] [address] [place] [address] Specificy [place],Urine 1.009 Normal 1.001-1.03 0 [facility] Comment on above: Order Comment: Name Collection Type:: Clean-Voided Midstream Performed By: #### U A #### [address] Urobilinogen,Urine Normal Normal Normal [facility] Comment on above: Order Comment: Name Collection Type:: Clean-Voided Midstream Performed By: #### U A #### [address] Urine clarity by refractomet ry automatedOrdered By: Santa Estrada on 04-15-2024 Clarity Refractometry automated (U) Clear Clear [facility] Urine glucose measurement by automated test strip (mass/volume)Ordered By: Santa Estrada on 04-15-2024 Glucose Auto test strip (U) [Mass/Vol] Normal mg/dL Normal [facility] Urine hemoglobin detection b y automated test stripOrdered By: Santa Estrada on 04-15-2024 Hemoglobin Auto test strip Ql (U) Negative Negative [facility] Urine leukocyte esterase det ection by automated test stripOrdered By: Santa Estrada on 04-15-2024 Leukocyte esterase Auto test strip Ql (U) Negative Negative [facility] Urine pH measurement by auto mated test stripOrdered By: Santa Estrada on 04-15-2024 pH (U) 8.0 [pH] 5.0-9.0 [facility] Comment on above: Order Comment: Name Collection Type:: Clean-Voided Midstream Performed By: #### U A #### [address] Urobilinogen Auto test strip (U) [Mass/Vol]Ordered By: Santa Estrada on 04-15-2024 Urobilinogen (U) [Mass/Vol] Normal mg/dL Normal [facility] CBC with Diffon 03-14-2024 Abs. Basophil 0.06 k/uL Normal 0.00-0.20 [facility] Comment on above: Performed By: #### C DP, VD25, FEBC, AHCV, GLYHGB, HIVCMB, TSHX, FERI, LIPRF, B12, CP #### [facility] [employer] [address] [place], [place] [id number] Experience Design Director: Isreal Astorga MD Abs.Imm.Granulocyte <0.03 Normal 0.00-0.30 [facility] Comment on above: Performed By: #### C DP, VD25, FEBC, AHCV, GLYHGB, HIVCMB, TSHX, FERI, LIPRF, B12, CP #### [facility] [employer] [address] [place] [address] Experience Design Director: Isreal Astorga MD Abs.Neutrophil (Seg) 2.66 k/uL Normal 1.50-8.10 [facility] Comment on above: Performed By: #### C DP, VD25, FEBC, AHCV, GLYHGB, HIVCMB, TSHX, FERI, LIPRF, B12, CP #### [facility] [employer] [address] [place] [address] Experience Design Director: Isreal Astorga MD Basophils/100 WBC (Bld) 1 % Normal 0-2 [facility] Comment on above: Performed By: #### C DP, VD25, FEBC, AHCV, GLYHGB, HIVCMB, TSHX, FERI, LIPRF, B12, CP #### [facility] [employer] [address] [place] [address] Experience Design Director: Isreal Astorga MD Eosinophils (Bld) [#/Vol] 0.28 10*3/uL Normal 0.00-0.44 [facility] Comment on above: Performed By: #### C DP, VD25, FEBC, AHCV, GLYHGB, HIVCMB, TSHX, FERI, LIPRF, B12, CP #### [address] [id number] Experience Design Director: Isreal Astorga MD Eosinophils/100 WBC (Bld) 5 % High 1-4 [facility] Comment on above: Performed By: #### C DP, VD25, FEBC, AHCV, GLYHGB, HIVCMB, TSHX, FERI, LIPRF, B12, CP #### [address] [id number] Experience Design Director: Isreal Astorga MD Erythrocyte distribution width (RBC) [Ratio] 12.6 % Normal 11.8-14.4 [facility] Comment on above: Performed By: #### C DP, VD25, FEBC, AHCV, GLYHGB, HIVCMB, TSHX, FERI, LIPRF, B12, CP #### [address] [phone] Experience Design Director: Isreal Astorga MD Hematocrit (Bld) [Volume fraction] 38.8 % Normal 36.3-47.1 [facility] Comment on above: Performed By: #### C DP, VD25, FEBC, AHCV, GLYHGB, HIVCMB, TSHX, FERI, LIPRF, B12, CP #### [address] [id number] Experience Design Director: Isreal Astorga MD Hemoglobin (Bld) [Mass/Vol] 12.9 g/dL Normal 11.9-15.1 [facility] Comment on above: Performed By: #### C DP, VD25, FEBC, AHCV, GLYHGB, HIVCMB, TSHX, FERI, LIPRF, B12, CP #### [address] [id number] Experience Design Director: Isreal Astorga MD Immature granulocytes/100 WBC (Bld) 0 % Normal 0 [facility] Comment on above: Performed By: #### C DP, VD25, FEBC, AHCV, GLYHGB, HIVCMB, TSHX, FERI, LIPRF, B12, CP #### [address] [phone] Experience Design Director: Isreal Astorga MD Lymphocytes (Bld) [#/Vol] 1.69 10*3/uL Normal 1.10-3.70 [facility] Comment on above: Performed By: #### C DP, VD25, FEBC, AHCV, GLYHGB, HIVCMB, TSHX, FERI, LIPRF, B12, CP #### [address] [phone] Experience Design Director: Isreal Astorga MD Lymphocytes/100 WBC (Bld) 33 % Normal 24-43 [facility] Comment on above: Performed By: #### C DP, VD25, FEBC, AHCV, GLYHGB, HIVCMB, TSHX, FERI, LIPRF, B12, CP #### [address] [id number] Experience Design Director: Isreal Astorga MD MCH (RBC) [Entitic mass] 29.9 pg Normal 25.2-33.5 [facility] Comment on above: Performed By: #### C DP, VD25, FEBC, AHCV, GLYHGB, HIVCMB, TSHX, FERI, LIPRF, B12, CP #### [address] [phone] Experience Design Director: Isreal Astorga MD MCHC (RBC) [Mass/Vol] 33.2 g/dL Normal 28.4-34.8 [facility] Comment on above: Performed By: #### C DP, VD25, FEBC, AHCV, GLYHGB, HIVCMB, TSHX, FERI, LIPRF, B12, CP #### [address] [phone] Experience Design Director: Isreal Astorga MD MCV (RBC) [Entitic vol] 89.8 fL Normal 82.6-102.9 [facility] Comment on above: Performed By: #### C DP, VD25, FEBC, AHCV, GLYHGB, HIVCMB, TSHX, FERI, LIPRF, B12, CP #### [address] [id number] Experience Design Director: Isreal Astorga MD Monocytes (Bld) [#/Vol] 0.47 10*3/uL Normal 0.10-1.20 [facility] Comment on above: Performed By: #### C DP, VD25, FEBC, AHCV, GLYHGB, HIVCMB, TSHX, FERI, LIPRF, B12, CP #### [address] [id number] Experience Design Director: Isreal Astorga MD Monocytes/100 WBC (Bld) 9 % Normal 3-12 [facility] Comment on above: Performed By: #### C DP, VD25, FEBC, AHCV, GLYHGB, HIVCMB, TSHX, FERI, LIPRF, B12, CP #### [address] [address] Experience Design Director: Isreal Astorga MD Neutrophil (Seg) 52 % Normal 36-65 [facility] Comment on above: Performed By: #### C DP, VD25, FEBC, AHCV, GLYHGB, HIVCMB, TSHX, FERI, LIPRF, B12, CP #### [address] [id number] Experience Design Director: Isreal Astorga MD NRBC Automated 0.0 per 100 WBC Normal 0.0 [facility] Comment on above: Performed By: #### C DP, VD25, FEBC, AHCV, GLYHGB, HIVCMB, TSHX, FERI, LIPRF, B12, CP #### [address] [phone] Experience Design Director: Isreal Astorga MD Platelet mean volume (Bld) [Entitic vol] 9.7 fL Normal 8.1-13.5 [facility] Comment on above: Performed By: #### C DP, VD25, FEBC, AHCV, GLYHGB, HIVCMB, TSHX, FERI, LIPRF, B12, CP #### [address] [phone] Experience Design Director: Isreal Astorga MD Platelets (Bld) [#/Vol] 256 10*3/uL Normal 138-453 [facility] Comment on above: Performed By: #### C DP, VD25, FEBC, AHCV, GLYHGB, HIVCMB, TSHX, FERI, LIPRF, B12, CP #### [address] [phone] Experience Design Director: Isreal Astorga MD RBC (Bld) [#/Vol] 4.32 10*6/uL Normal 3.95-5.11 [facility] Comment on above: Performed By: #### C DP, VD25, FEBC, AHCV, GLYHGB, HIVCMB, TSHX, FERI, LIPRF, B12, CP #### [address] [address] Experience Design Director: Isreal Astorga MD WBC (Bld) [#/Vol] 5.2 10*3/uL Normal 3.5-11.3 [facility] Comment on above: Performed By: #### C DP, VD25, FEBC, AHCV, GLYHGB, HIVCMB, TSHX, FERI, LIPRF, B12, CP #### [address] [address] Experience Design Director: Isreal Astorga MD Comp Metabolic Profon 2023 Albumin [Mass/Vol] 4.2 g/dL Normal 3.5-5.2 [facility] Comment on above: Performed By: #### C DP, VD25, FEBC, AHCV, GLYHGB, HIVCMB, TSHX, FERI, LIPRF, B12, CP #### [address] [phone] Experience Design Director: Isreal Astorga MD Albumin/Glob Ratio 2.0 Normal 1.0-2.5 [facility] Comment on above: Performed By: #### C DP, VD25, FEBC, AHCV, GLYHGB, HIVCMB, TSHX, FERI, LIPRF, B12, CP #### [address] [phone] Experience Design Director: Isreal Astorga MD Alkaline Phos 72 U/L Normal 35-104 [facility] Comment on above: Performed By: #### C DP, VD25, FEBC, AHCV, GLYHGB, HIVCMB, TSHX, FERI, LIPRF, B12, CP #### [address] [phone] Experience Design Director: Isreal Astorga MD ALT [Catalytic activity/Vol] 21 U/L Normal 10-35 [facility] Comment on above: Performed By: #### C DP, VD25, FEBC, AHCV, GLYHGB, HIVCMB, TSHX, FERI, LIPRF, B12, CP #### [address] [address] Experience Design Director: Isreal Astorga MD Anion gap [Moles/Vol] 8 mmol/L Low 9-16 [facility] Comment on above: Performed By: #### C DP, VD25, FEBC, AHCV, GLYHGB, HIVCMB, TSHX, FERI, LIPRF, B12, CP #### [address] [phone] Experience Design Director: Isreal Astorga MD AST [Catalytic activity/Vol] 23 U/L Normal 10-35 [facility] Comment on above: Performed By: #### C DP, VD25, FEBC, AHCV, GLYHGB, HIVCMB, TSHX, FERI, LIPRF, B12, CP #### [address] [address] Experience Design Director: Isreal Astorga MD Bilirubin [Mass/Vol] 0.4 mg/dL Normal 0.00-1.20 [facility] Comment on above: Performed By: #### C DP, VD25, FEBC, AHCV, GLYHGB, HIVCMB, TSHX, FERI, LIPRF, B12, CP #### [address] [address] Experience Design Director: Isreal Astorga MD Calcium [Mass/Vol] 8.8 mg/dL Normal 8.6-10.4 [facility] Comment on above: Performed By: #### C DP, VD25, FEBC, AHCV, GLYHGB, HIVCMB, TSHX, FERI, LIPRF, B12, CP #### [address] [address] Experience Design Director: Isreal Astorga MD Chloride [Moles/Vol] 106 mmol/L Normal 98-107 [facility] Comment on above: Performed By: #### C DP, VD25, FEBC, AHCV, GLYHGB, HIVCMB, TSHX, FERI, LIPRF, B12, CP #### [address] [address] Experience Design Director: Isreal Astorga MD CO2 [Moles/Vol] 25 mmol/L Normal 20-31 [facility] Comment on above: Performed By: #### C DP, VD25, FEBC, AHCV, GLYHGB, HIVCMB, TSHX, FERI, LIPRF, B12, CP #### [address] [address] Experience Design Director: Isreal Astorga MD Creatinine [Mass/Vol] 0.7 mg/dL Normal 0.50-0.90 [facility] Comment on above: Performed By: #### C DP, VD25, FEBC, AHCV, GLYHGB, HIVCMB, TSHX, FERI, LIPRF, B12, CP #### [employer] [address] [place] [address] [phone] Experience Design Director: Isreal Astorga MD GFR/1.73 sq M.predicted among non-blacks MDRD (S/P/Bld) [Vol rate/Area] mL/min/{1.73_m2} Normal >60 [facility] Comment on above: Result Comment: These [...] HIVCMB, TSHX, FERI, LIPRF, B12, CP #### [employer] [address] [place] [address] Experience Design Director: Isreal Astorga MD Glucose [Mass/Vol] 94 mg/dL Normal 74-99 [facility] Comment on above: Performed By: #### C DP, VD25, FEBC, AHCV, GLYHGB, HIVCMB, TSHX, FERI, LIPRF, B12, CP #### [employer] [address] [place] [address] [phone] Experience Design Director: Isreal Astorga MD Potassium [Moles/Vol] 3.8 mmol/L Normal 3.7-5.3 [facility] Comment on above: Performed By: #### C DP, VD25, FEBC, AHCV, GLYHGB, HIVCMB, TSHX, FERI, LIPRF, B12, CP #### [employer] [address] [place] [address] [phone] Experience Design Director: Isreal Astorga MD Protein [Mass/Vol] 6.7 g/dL Normal 6.6-8.7 [facility] Comment on above: Performed By: #### C DP, VD25, FEBC, AHCV, GLYHGB, HIVCMB, TSHX, FERI, LIPRF, B12, CP #### [facility] [employer] [address] [place] [address] [phone] Experience Design Director: Isreal Astorga MD Sodium [Moles/Vol] 139 mmol/L Normal 136-145 [facility] Comment on above: Performed By: #### C DP, VD25, FEBC, AHCV, GLYHGB, HIVCMB, TSHX, FERI, LIPRF, B12, CP #### [address] [phone] Experience Design Director: Isreal Astorga MD Urea nitrogen [Mass/Vol] 12 mg/dL Normal 6-20 [facility] Comment on above: Performed By: #### C DP, VD25, FEBC, AHCV, GLYHGB, HIVCMB, TSHX, FERI, LIPRF, B12, CP #### [facility] [employer] [address] [place] [address] [phone] Experience Design Director: Isreal Astorga MD Ferritinon 03-14-2024 Ferritin [Mass/Vol] 133 ng/mL Normal 13-150 [facility] Comment on above: Result Comment: FERRITIN Reference Ranges: Adult Males 20 - 60 years: 30 - 400 ng/mL Adult females 17 - 60 years: 13 - 150 ng/mL Adults greater than 60 years: no established reference range Pediatrics: no established reference range Performed By: #### C DP, VD25, FEBC, AHCV, GLYHGB, HIVCMB, TSHX, FERI, LIPRF, B12, CP #### [address] [phone] Experience Design Director: Isreal Astorga MD HIV Ag/Abon 03-14-2024 HIV Ag/Ab Non-Reactive Normal NR [facility] Comment on above: Result Comment: No l aboratory evidence of HIV infection. If acute HIV infection is suspected, consider testing for HIV-1 RNA. Performed By: #### C DP, VD25, FEBC, AHCV, GLYHGB, HIVCMB, TSHX, FERI, LIPRF, B12, CP #### [address] [phone] Experience Design Director: Isreal Astorga MD Hemoglobin A1Con 03-14-2024 Glucose [Mass/Vol] 94 mg/dL Normal [facility] Comment on above: Result Comment: The ADA and AACC recommend providing the estimated average glucose result to permit better patient understanding of their HBA1c result. Performed By: #### C DP, VD25, FEBC, AHCV, GLYHGB, HIVCMB, TSHX, FERI, LIPRF, B12, CP #### [address] [phone] Experience Design Director: Isreal Astorga MD HbA1c (Bld) [Mass fraction] 4.9 % Normal 4.0-6.0 [facility] Comment on above: Performed By: #### C DP, VD25, FEBC, AHCV, GLYHGB, HIVCMB, TSHX, FERI, LIPRF, B12, CP #### [address] [phone] Experience Design Director: Isreal Astorga MD Hep C Abon 03-14-2024 Hep C Ab Non-Reactive Normal NR [facility] Comment on above: Result Comment: The [...] HIVCMB, TSHX, FERI, LIPRF, B12, CP #### [address] [phone] Experience Design Director: Isreal Astorga MD Iron Binding Cap.on 03-14-20 24 % Fe Saturation 44 % Normal 20-55 [facility] Comment on above: Performed By: #### C DP, VD25, FEBC, AHCV, GLYHGB, HIVCMB, TSHX, FERI, LIPRF, B12, CP #### [address] [phone] Experience Design Director: Isreal Astorga MD Iron [Mass/Vol] 107 ug/dL Normal 37-145 [facility] Comment on above: Performed By: #### C DP, VD25, FEBC, AHCV, GLYHGB, HIVCMB, TSHX, FERI, LIPRF, B12, CP #### [address] [address] Experience Design Director: Isreal Astorga MD Total Fe Binding Cap 243 ug/dL Low 250-450 [facility] Comment on above: Performed By: #### C DP, VD25, FEBC, AHCV, GLYHGB, HIVCMB, TSHX, FERI, LIPRF, B12, CP #### [address] [phone] Experience Design Director: Isreal Astorga MD Unbound Fe Bind Cap 136 ug/dL Normal 112-347 [facility] Comment on above: Performed By: #### C DP, VD25, FEBC, AHCV, GLYHGB, HIVCMB, TSHX, FERI, LIPRF, B12, CP #### [address] [address] Experience Design Director: Isreal Astorga MD Lipid Prof, Fastingon 2023 Cholesterol [Mass/Vol] 174 mg/dL Normal 0-199 [facility] Comment on above: Result Comment: Cholesterol Guidelines: <200 Desirable 200-240 Borderline >240 Undesirable Performed By: #### C DP, VD25, FEBC, AHCV, GLYHGB, HIVCMB, TSHX, FERI, LIPRF, B12, CP #### [address] [phone] Experience Design Director: Isreal Astorga MD Cholesterol in HDL [Mass/Vol] 57 mg/dL Normal >40 [facility] Comment on above: Result Comment: HDL Guidelines: <40 Undesirable 40-59 Borderline >59 Desirable Performed By: #### C DP, VD25, FEBC, AHCV, GLYHGB, HIVCMB, TSHX, FERI, LIPRF, B12, CP #### [place] [phone] Experience Design Director: Isreal Astorga MD Cholesterol in LDL [Mass/Vol] 96 mg/dL Normal 0-100 [facility] Comment on above: Result Comment: LDL Guidelines: <100 Desirable 100-129 Near to/above Desirable 130-159 Borderline >159 Undesirable Direct (measured) LDL and calculated LDL are not interchangeable tests. Performed By: #### C DP, VD25, FEBC, AHCV, GLYHGB, HIVCMB, TSHX, FERI, LIPRF, B12, CP #### [facility] [employer] [address] [place], [place] [phone] Experience Design Director: Isreal Astorga MD Cholesterol in VLDL [Mass/Vol] 22 mg/dL Normal [facility] Comment on above: Performed By: #### C DP, VD25, FEBC, AHCV, GLYHGB, HIVCMB, TSHX, FERI, LIPRF, B12, CP #### [place] [phone] Experience Design Director: Isreal Astorga MD Cholesterol.total/Chol esterol in HDL [Mass ratio] 3.0 {ratio} Normal [facility] Comment on above: Performed By: #### C DP, VD25, FEBC, AHCV, GLYHGB, HIVCMB, TSHX, FERI, LIPRF, B12, CP #### [address] [phone] Experience Design Director: Isreal Astorga MD Triglyceride,Fasting 108 mg/dL Normal 0-149 [facility] Comment on above: Result Comment: Triglyceride Guidelines: <150 Desirable 150-199 Borderline 200-499 High >499 Very high Based on AHA Guidelines for fasting triglyceride, June 2012. Performed By: #### C DP, VD25, FEBC, AHCV, GLYHGB, HIVCMB, TSHX, FERI, LIPRF, B12, CP #### [address] [address] Experience Design Director: Isreal Astorga MD TSH w/reflex to FT4on 2023 Thyroid Stim. Horm. 2.37 uIU/mL Normal 0.27-4.20 [facility] Comment on above: Performed By: #### C DP, VD25, FEBC, AHCV, GLYHGB, HIVCMB, TSHX, FERI, LIPRF, B12, CP #### [address] [phone] Experience Design Director: Isreal Astorga MD Vitamin B12on 03-14-2024 Cobalamin (Vitamin B12) [Mass/Vol] 695 pg/mL Normal 232-1245 [facility] Comment on above: Performed By: #### C DP, VD25, FEBC, AHCV, GLYHGB, HIVCMB, TSHX, FERI, LIPRF, B12, CP #### [address] [phone] Experience Design Director: Isreal Astorga MD Vitamin D 25 OHon 03-14-2024 Vitamin D 25 OH 17.4 ng/mL Low 30.0-100.0 [facility] Comment on above: Result Comment: Reference Range: Vitamin D status Range Deficiency <20 ng/mL Mild Deficiency 20-30 ng/mL Sufficiency 30-100 ng/mL Toxicity >100 ng/mL Performed By: #### C DP, VD25, FEBC, AHCV, GLYHGB, HIVCMB, TSHX, FERI, LIPRF, B12, CP #### [employer] [address] [place] [address] Experience Design Director: Isreal Astorga MD Patient Handouton 03-13-2024 Patient Handout [facility] Surgery [facility] [address] [facility], [address], [place] Date: 03/13/2024 RE: Lucila Jacques To whom it may concern, Lucila has been under my professional care due to a surgical procedure performed on 02/27/2024. She may return to work with no restrictions on 03/20/2024. Thank you, Peter Booth M.D. Normal [facility] Release of Informationon Release of Information [id number] [facility] A1C with Estimated Average G luon 03-12-2024 Glucose [Mass/Vol] 105 mg/dL Normal [facility] Comment on above: Result Comment: PERF ORMED BY: [place] [address] PATHOLOGIST LEMON GROWER GENO BENEDICT M.D. Performed By: #### A 1C WTH eA, ALB, [id number], HGB #### [address] #### NICOTINE #### [facility] , Albumin Levelon 03-12-2024 Albumin [Mass/Vol] 4.0 g/dL Normal 3.5-5.7 [facility] Comment on above: Performed By: #### A 1C WTH eA, ALB, [id number], HGB #### [address] #### NICOTINE #### [facility] , Albumin [Mass/volume] in Ser um or Plasma by Bromocresol green (BCG) dye binding methoOrdered By: Santa Estrada on 03-12-2024 Albumin BCG dye [Mass/Vol] 4.0 g/dL 3.5-5.7 [facility] Cotinine [Mass/volume] in Se rum or PlasmaOrdered By: Santa Estrada on 03-12-2024 Cotinine [Mass/Vol] 3.7 ng/mL . [facility] Comment on above: This test was develo ped and its performance characteristicsdetermined by [employer]. It has not been cleared orapproved by the Food and Drug Administration.Cotinine levels greater than 20.0 are consistent with theuse of tobacco or tobacco cessation products.Performed at: [facility] [employer] [id number] Director: Marcellus Dave MD, Phone: [phone] Glucose mean value [Mass/vol ume] in Blood Estimated from glycated hemoglobinOrdered By: Santa Estrada on 03-12-2024 Average glucose Estimated from glycated hemoglobin (Bld) [Mass/Vol] 105 mg/dL [facility] Hemoglobin A1c percentageOrd ered By: Santa Estrada on 03-12-2024 HbA1c (Bld) [Mass fraction] 5.3 % Normal 4.3-5.6 [facility] Comment on above: Increased risk for d iabetes: 5.7 - 6.4diabetes: >6.4glycemic control for adults with diabetes: <7.0 Result Comment: Incr eased risk for diabetes: 5.7 - 6.4 diabetes: >6.4 glycemic control for adults with diabetes: <7.0 Performed By: #### A 1C WTH eA, ALB, [id number], HGB #### [address] #### NICOTINE #### [facility] , Hemoglobin [Mass/volume] in BloodOrdered By: Santa Estrada on 03-12-2024 Hemoglobin (Bld) [Mass/Vol] 12.8 g/dL Normal 11.8-15.4 [facility] Comment on above: Result Comment: PERF ORMED BY: [place] [address] PATHOLOGIST LEMON GROWER GENO BENEDICT M.D. Performed By: #### A 1C WTH eA, ALB, [id number], HGB #### [address] #### NICOTINE #### [facility] , MRSA Cultureon 03-12-2024 MRSA Culture No MRSA Isolated 2 D ays PERFORMED BY: [place] [address] PATHOLOGIST LEMON GROWER GENO BENEDICT M.D. Normal [facility] Comment on above: Performed By: #### C UMRSA #### [address] Nicotine [Mass/volume] in Se rum or PlasmaOrdered By: Santa Estrada on 03-12-2024 Nicotine [Mass/Vol] <1.0 ng/mL . [facility] Comment on above: This test was develo ped and its performance characteristicsdetermined by [facility]. It has not been cleared orapproved by the Food and Drug Administration.Nicotine levels greater than 2.0 are consistent with theuse of tobacco or tobacco cessation products. Nicotine/Cotinine Bloodon Cotinine, Blood 3.7 ng/mL Normal . [facility] Comment on above: Result Comment: This test was developed and its performance characteristics determined by [facility]. It has not been cleared or approved by the Food and Drug Administration. Cotinine levels greater than 20.0 are consistent with the use of tobacco or tobacco cessation products. Performed at: - [facility] [id number] Experience Design Director: Marcellus Dave MD, Phone: [phone] PERFORMED BY: [place] [address] PATHOLOGIST LEMON GROWER GENO BENEDICT M.D. Performed By: #### A 1C WTH eA, ALB, [id number], HGB #### [place] [address] [place] #### NICOTINE #### [facility] , Nicotine, Blood <1.0 Normal . [facility] Comment on above: Result Comment: This test was developed and its performance characteristics determined by [facility]. It has not been cleared or approved by the Food and Drug Administration. Nicotine levels greater than 2.0 are consistent with the use of tobacco or tobacco cessation products. Performed By: #### A 1C WTH eA, ALB, [id number], HGB #### [place] [address] [place] #### NICOTINE #### [facility] , Vitamin D 25 Hydroxy Totalon 03-12-2024 Vitamin D 25 Hydroxy Total 18.4 ng/mL Low 30-100 [facility] Comment on above: Result Comment: EVE MIN D STATUS 25(OH)VITAMIN D RANGE (ng/mL) Deficient <20 Insufficient 20 to <30 Sufficient 30 to 100 Reference: Juliano Vila, Ttae VELAZQUEZ, et al. Evaluation,treatment, and prevention of vitamin D deficiency; an Endocrine Society clinical practice guideline. JCEM. 2010; 96(7):1911-30. PERFORMED BY: [place] [address] PATHOLOGIST LEMON GROWER GENO BENEDICT M.D. Performed By: #### A 1C WTH eA, ALB, [id number], HGB #### [address] #### NICOTINE #### [facility] , Vitamin D+Metabolites [Mass/ volume] in Serum or PlasmaOrdered By: Santa Estrada on 03-12-2024 Vitamin D+Metabolites [Mass/Vol] 18.4 ng/mL Low 30-100 [facility] Comment on above: VITAMIN D STATUS [...] (Unsp spec) No MRSA Isolated 2 Days [facility] Coding Summaryon 03-07-2024 Coding Summary HTMLBase 64 AcofkjulBOq4vFt+PGhlYWQ+PE1 WWNDlB94kiKNavG3pG6EFQIaGFa xgFYIBLRvQPqSymhUkUH6sdGPgP XJu IC8+VL5qODWzIcjlzDXqw1N8xYJ 7V10ebr5jZBfemGZ8XNXsWhYlma eyz4fyjQs6NGohShceSpEa KBMisD09FTZ5kZ18Sd23uGKxvDX xs6wowBv8AmJvVUGkWZJ5jWppJK gop4WmTXVpA06ifUEom1I2 ASPipEjduTMyTkEhxLC7vR0lEKi jxqwfk1krbeosCye6wx91kVSmu1 U3eWZ2Q0SqobW4VJDljMYb IqmstABFrS9gyeccx4eammxrEeR uJSHhPNx2CYm2AZQzeAkiSlSnTJ 65PFO2QRQbswBgW9UqJRSd zZphJwK0g3Z5Eq1EE6EMMoidO4F NTUFSWTwvdGQ+AI47yg23N3ZlGw ebSiw8MXExNBB5mCR1xI4r OMWrCIigu8A8aAM5I7ZidpDmdu6 bb7kcCOGnHXsjS60ohMWlu4G3MU NeuPU8ABTozZgjApHsqJ03 Oyc+FVPdyIoxt2UsWhenm7dot7e caQn1YjbzXEVtrfSsfOwpLBH2j5 UkYt0hQHVnfIC3tCT7xU5w TqCrRsR0QBdoF395JzKinCSsXio cH52pR0NbqUK+DPDkLdn2NPVvcF pmVE5yZ1TiPCUrqqtihWDw bXefML4zCNCmwzqdARKxiW7eUCK qP8a1CaCcVyO5SQvqB6SeXHKhvy hpRx62sA5kVmSgHkZ0BXxc T4SgqsM2FCAzdJFrSQlwOVR5U60 pv4Q5OIYyCJOhIRP9jLN9cJ8naW lnbjogbGVmdDsgdmVydGlj ZPmrIQscE264GMWesEfkCfKrBQp uZyBEYXRlOiAgMDYvMTMvMjAyND wvdGQ+QCAzBHF9pNijSSEp wIOcMBhsAv0rnDxslFfzXZ3aIJL bkbirXCVwkO8wBJJycVVduUvhWU 6vGFBhpunlx626OmFkTFD6 XCQuiBVdV1WhtL9vKtGwYLDnLJE mU0RjtLShGYxcO590WJccHjQ0RT LtrnDpJ1IjZPIotOwuAgV6 a8I9So5Bb3VbkhhkE6WhwNIjZlO xBcbkCXt5Z9HyYidomKW+PC90YW QkCX02RJh0LEW1cCuoBWtm RFAtU7VvuF7rFlLbHXUaLWBpTnp +PHRhYmxlIHdpZHRoPScxMDAlJy TdbWymPA7iBu5oXNVgJWKd lGckrIPhZeQwg1cnVELnKQhiOV7 kjIunY7KjjZS5DEYzx6m4La32R6 9hX8NcpON+BABenXL1fOB0 nX5vTtYiHzL2TVzsD408DlSvxMM nHbxni8uie8xtsOu1WqA9PECqdx OavCqzUAK1k0OnLl79N60s IHdpZHRoPSIxNSUiIHZhbGlnbj0 dqM1jTo7+KPFivGV6wRL4sY9eOx XrPsJ1EXmiJ092HuJvpHBi Kymgb8vnb7oyqDn5FaXjQSHctmB ycLivMND3e9XnGx04T8CypOjex9 LdUrs9oa56jWOmw8M8eCV7 H8QqPVIezumwkXKhzBjjOT1dJDF gjjojVTMirW8gNTNaO1q1LkEbIl I0PJykQ9TvkdG6KCCelOTh VVWfbRCWfK5anuehu5vwpfrjHbQ hWUXwYTh0XFw4QRNgyAhmCoJhKY P0CkA7YCT1wWPmwV6nuNdd uykuiL7gXhw+MSH0nWJhdQMIOV6 lOjwvdGQ+JUEnMGJ9oVsdOXohXH HzkC5xBKYgG8x2FoOwVhB6 NVnkN7IhdfK3YOAyxIXvJSLtqZU ZiY7wakolk6cbqskpJlIuLGTqMX w9OVc5SQJboZehKvRhVAE5 IgI6MDK0bRDhsQ1jeEhqxcqscY3 wOyc+AozgmBeuHBH0DRu6W4GxEs y9GZXyuVqcHK2hzKNrHGnv Vq3vfOxrpKybXK8dQYLuwptjz69 4SaBxx9rlWFVxqGSwXAmdBQB7B3 8dz3B4HZMhMZZdOGJ1aPR7 xD3dtHuvowhkrFJgyAbovcTciKj eXQubXMjhT546SLDxbYvyMvLpAH x5C5JxWuj0NOCzxKrjVA7s aWLlINauBt1cfAkrhEvyCA7mJKN znjlrw831NzDkp5yaTYWzyQNlJJ fcYSF1N46in8T5JRPbTEJv PUW8kLR0sV6xoRbyvydiwDXieRw bchQbpJcnSVzlZWspT789VQByeI rcSkRlrAr4A8NrJtf4CHUx fVapZQ4hhCYzLFrvNd0ybIuaxQf zON6fKJJnhffge383MmXxy0ydEJ AtqMOjZEaxOHO4K54cj8J7 CRGwZYAdKOV2hLK3vY7scFlckei gbGVmdDsgdmVydGljYWwtYWxpZ2 46IHRvcDsnPlBhdGllbnQg PJrtCCj9M5RmKjhhuMA+PG33BXM lMZ48oBDmzYCzs3cjhRf6IyDyDR GwEOZ1cSqwYLgvt6WpCIZr C73abUVxa6Z6YTZqoQkjbKIaSnC bkIS5kQ4eSMkpmhskx6nslssmOy cnm1wvye39fM84D73tMDon LMJzMJLlVCSdDPDnyWbtoz6nbE8 wIi8+QYGcxOR9eES8lQ7wDDBiZu I6GAjwX098QdWjaDAkSucn r6get2phyKu5JaQ4SNRoovAihTd hRXG2p6TpMv00R35cPTuoUXRdDF UpEVCsQDTfmLayxp9ixD1c Ii8+SWZbiLN7mIU0zC3sFgLmTxP 5GKcyQ218HxQxkGEpKlqnI52aN0 JvdXA+VVSxUfo7KWOykDtg TO7nfAThSSbdOm7fFWS6DeXtGpU jXNokK0YxAWCviwdcbxtfkCT7DX FoCQSxkQ15Tr2mzZslORMk mVGRkK5leacru8tynfuqFbEfUBY aVZy4NMe2QBPdaKboAmAgJZM5Xi Q1CGS4jGQzpT5chOmptybl kC6hA8YbAZYvzewsHe76tD6nXfR kDzO7JQfrYdv+LqMSGjsaU6OSQU zKSoCRQZZ3O5TvEco2VDEv cFrxFM5tkVKeYFgeDm4usZulqTy qSN9cUWTkyjpuVHOakF2sDELowV AglQbcSP0eKZIhqgxtf528 XdHyDDP6XMEyuGKyB6OvfW7hFxG wXKRcDDAtJ7FqzTXiBQcdK192GX xtHaY0USWxliZwD2FzGLZk eYcqQhJ4j2N9Km1aSB4jMn8tVMu 1SL56RJ04nNOcm5F2tZA2N4IxRI JosbzmkirleCI7QRBhRMPc zK04gVWrBCcbCu1sa2V3x663GYA iOMTdgJ28Jl6erMdwQGJijZSMiI 6quqvio7lbidhwHnZzCMVq PHl9NMc3XJStsPisCnEhBBH5IfM 2FDV3nSLfpO0jvEjswfyhpR2vLu c+NiXrPLCrjwT0G3HlTsf0 JYQbgZrgCT8leLSeNLspZz5pdQh bsYrbVY3qJHRyclaxAPSoyQ1vPK DmyDGzlNaxIX5mWZXzezfo e114AcKoJHV9KDEhkOSrJ7AtiL1 eJlWsECAgGNPnZ4MnmATfHKgjV7 94INtcLhF7BSKgyoBsB5Xc JDZvuNfrJhD3p1J2Zg8YTK7ZHXU 4C4MoGpc7EOEhzBpeQC2mhFMwVZ hzCf6qfUpvqOebXI2qKTYz swieHEMelR9uULTcyDWydXyxQQ4 lPUAzpaucl559WpSrXII6GZNewO CbP4GtjR3iQfVrHHDzSJKr H3WujJBsHZnvI475XWjgNpT3EMK qlbYyF0LxLYVvoUukRuW0x8X9Be 5PYnNlcnZhdGlvbjwvdGQ+ OO25db84M6ZuNqndLcf7GZDyFZQ 3rCK1nR9vIDMwXLqhf8X9hHA3L5 XuueElxp1yw6rsXEPoWMzp I22jxMGwh0J8COKqnVC7ZTSsaZi wOpBrlL43Drl+ZUAniMiay3TuOr lto1mac2cmcNl1YwMhJQPu wbTmtDhxTDJ5n0BfMr07B48bJYo mLKKrHPVsTJGnKMRvgDnosl4maC 9wIi8+FHGgoBO3uIT9xH3d IeDsXbX5HTasM628CrLpiMHlIrv do8osc1kriCi8MvMsZFJvgbSsmQ ksYUH4n8HgLo26Z6UlhKvs e0PaYyj8rv20wDZeb8X2mJF5F9L pOPYhwlylfGEagBucQM3fGEAtuv wsYQTbtT1aGUCkD8e2KjJu BrE1GQxyN4VxgkX5YQGgiMGaVEA ylOECiT9hxsrit4xvefbiIsXvIW XdAZq4QGo0DGFbyTxmBiYp TSF8SdM7YPE0lRExpE1nbEbqbxt viO7wYki+NKt1z2jdbYYqXL1kuO Q2RB65WT86yDAoj1B3sXJ1 F7EvGCRhdyaautgfzZL4NULtUYC ubG02Xx9kmXajWw2rNRFbJRT9JZ WiwDOeX4HecU6ySeGhBXNg SEOhB6KigLBrCOfnC377UBegAcB 8EPMdotOkH1IaLNIvaQjmFkC6v4 M1Pj0KSR41CL78BO67qHWf f9X4nTN6D8PjXPTnehoenfkhaKA 1CJBkBDOalQ89Zp8dfWojMq7bYS YdLST1CGBjiKZtL8YuyJ1p LwBnQTLgNJJlA4IecMRsWCoeC16 8VMpoEhE9LYOlwiRtG2ZjTMGnwY xsTaQ5g1W4Yb4REj41VU16 KO49oHGlw9V4jQU8M2HkAUNfdlf vuzmctHB1YMElUFGmeW55Dj1mjA udNj2aLIWsHYT6HYUoiETh P3AlrT0vZqGzDUJbCGTbK5UygFR xQRayL963FZudYxF4SMPwngDdG4 ByKOQmeXfvJzX2j8J0Tx3J FMxqhpz7P5ExInwfmFA+BK67AEC bQV92tAAixQTad6dwaJr8VfFtHR AkHYO4pVqpPSvou6TyFLRk Y29 (more content not included)... Normal [facility] - AP Resultson 4 Lab - AP Results [id number]#1.00OTGTIFF Normal [facility] MR KNEE LT WO CONTon 024 [...] Mckenzie MD on 03/04/2024 9:59 AM Normal [facility] Consent Formson 02-29-2024 Consent Forms [id number]#1.00OTGTIFF [facility] Consent Formson 02-28-2024 Consent Forms [id number]#1.00OTGTIFF [facility] Consent Forms [id number]#1.00OTGTIFF [facility] MAGR Postoperative Recordon 02-28-2024 MAGR Postoperative Record MAGR Phase II Record Summary Primary Physician: Peter Booth MD Finalized Date/Time: 02/28/24 07:49:14 Pt. Name: LUCILA JACQUES/Sex: 1990 FEMALE Med Rec #: [id number] Physician: Param Michelle DO Financial #: [id number] Pt. Type: O Room/Bed: [facility]/ Admit/Disch: 02/26/24 22:40:28 - 02/27/24 18:45:00 Institution: [...] Signed By: Mya Villar RN 02/28/24 07:49 [facility] Outside Recordson 02-28-2024 Outside Records [id number][facility] [id number]#[facility] .Auto Diff 102-27-2024 Auto Curry % 8 % Normal -12 [facility] Comment on above: Performed By: #### 1 [id number], [id number], [id number], [id number], 9351726, 6032234, 5081373, [id number] #### [facility] (DEFAULT) [address] [place] [address] Baso Abs# 0.0 x10 Normal 0.0-0.2 [facility] Comment on above: Performed By: #### 1 [id number], [id number], [id number], [id number], 3569375, 1065564, 5160580, 5139180 #### [facility] (DEFAULT) [address] [place] [address] Basophils/100 WBC (Bld) 0.4 % Normal 0.2-2.0 [facility] Comment on above: Performed By: #### 1 [id number], [id number], 9133317, [id number], 7956665, 8225078, 0925893, 1777449 #### [facility] (DEFAULT) [address] [place] [address] Eos Abs# 0.1 x10 Normal 0.0-0.4 [facility] Comment on above: Performed By: #### 1 [id number], [id number], 5478374, [id number], 2969992, 6443642, 9599577, [id number] #### [facility] ([facility]) [address] [place] [address] 73768 Eosinophils/100 WBC (Bld) 1.1 % Normal 0.9-4.0 [facility] Comment on above: Performed By: #### 1 5744580, 4381384471, 7196904, 5521659864, 6825287, 5479628, 6220506, 5669611 #### [facility] ([facility]) [address] [place] [address] 61171 Lymph Abs# 2.1 x10 Normal 1.3-2.9 [facility] Comment on above: Performed By: #### 1 2526788, 9041789309, 1809400, 8613291093, 6664597, 4386435, 1435936, 5129450 #### [facility] ([facility]) [address] [place] [address] 54665 Lymphocytes/100 WBC (Bld) 28 % Normal 14-48 [facility] Comment on above: Performed By: #### 1 5310025, 0495084394, 3832101, 5891353196, 4035389, 6633330, 7156468, 3331505 #### [facility] ([facility]) [address] [place] [address] 61221 Curry Abs# 0.6 x10 Normal 0.0-0.8 [facility] Comment on above: Performed By: #### 1 6254326, 7767265624, 3790421, 7022532049, 4115017, 8290438, 0853237, 4645836 #### [facility] ([facility]) [address] [place] [address] 58065 Neut Abs# 4.8 x10 Normal 1.5-9.2 [facility] Comment on above: Performed By: #### 1 5434961, 4654875789, 0319261, 6019012184, 2745883, 1320616, 6255569, 1473399 #### [facility] ([facility]) [address] [place] [address] 15835 Neutrophils/100 WBC (Bld) 63 % Normal 44-88 [facility] Comment on above: Performed By: #### 1 5780913, 0029858465, 3770156, 1854772119, 5601281, 4942187, 0835706, 1044196 #### [facility] ([facility]) [address] [place] [address] 89278 Amylaseon 02-27-2024 Amylase [Catalytic activity/Vol] 51.0 U/L Normal 28.0-100.0 [facility] Comment on above: Performed By: #### 1 4585952, 2242245669, 4671659, 3676198838, 2699902, 0068264, 6426463, 8090200 ####[facility] ([facility])[address] [place] [address] 37574 Anesthesia Noteon 02-27-2024 Anesthesia Note Patient: LIOR [...] on: 02/27/2024 12:58 EDT] Juliano Peterson DO [facility] Anesthesia Note Patient: LIOR JACQUES Age: 33 years Sex: [...] history): All Problems Anxiety / SNOMED CT 29951839 / Confirmed Arthritis of left knee / SNOMED CT 124687822968484 / Confirmed Body mass index 40+ - severely obese / SNOMED CT 9305944138 / Confirmed Genital warts / SNOMED CT 198928546 / Confirmed History of arthroscopy of knee joint / SNOMED CT 5470891327 / Confirmed History of bariatric surgical procedure. 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 Comments: 01/12/2024 11:39 Cuong Landa MA LEFT GENICULAR microphlebectomy in the month of 07/2017 at 27 Years. Comments: 03/19/2019 10:05 Margaret Catalan MATCHER left leg Gastric sleeve (4583512448) in the month of 07/2016 at 26 Years. section (54978243) on 11/10/2014 at 24 Years. section (42943347) on 06/29/2012 at 21 Years. Gastric band (9745472317). Social History Electronic Cigarette/Vaping Assessment Electronic Cigarette [...] (FEB 26 (more content not included)... Normal [facility] CBC w/ Auto Diffon Erythrocyte distribution width (RBC) [Ratio] 13.3 % Normal 11.5-15.0 [facility] Comment on above: Performed By: #### 1 1972489, 1517202524, 2185652, 0689643239, 4818557, 1286838, 3533602, 9468770 #### [facility] ([facility]) [address] [place] [address] 65971 Hematocrit (Bld) [Volume fraction] 42.2 % High 33.7-40.4 [facility] Comment on above: Performed By: #### 1 6277121, 7962930073, 1409543, 6933624467, 0091644, 1996016, 1040696, 1877225 #### [facility] ([facility]) [address] [place] [address] 58782 Hemoglobin (Bld) [Mass/Vol] 14.3 g/dL Normal 11.3-15.9 [facility] Comment on above: Performed By: #### 1 1751795, 0889504841, 6656973, 6963652517, 8700842, 9906237, 1389467, 0997532 #### [facility] ([facility]) [address] [place] [address] 58420 MCH (RBC) [Entitic mass] 30 pg Normal 24-34 [facility] Comment on above: Performed By: #### 1 9520567, 7327389788, 4598502, 9093179581, 0303098, 2766278, 4321876, 3350707 #### [facility] ([facility]) [address] [place] [address] 93609 MCHC (RBC) [Mass/Vol] 34 g/dL Normal 26-37 [facility] Comment on above: Performed By: #### 1 2231676, 2614516164, 7477235, 4766762449, 8404892, 9829305, 3996214, 1957195 #### [facility] ([facility]) [address] [place] [address] 94986 MCV (RBC) [Entitic vol] 90 fL Normal 81-100 [facility] Comment on above: Performed By: #### 1 3269578, 9654837968, 0658940, 1299232875, 2571134, 9533663, 1886105, 7244116 #### [facility] ([facility]) [address] [place] [address] 30814 Platelet 243 x10 Normal 138-427 [facility] Comment on above: Performed By: #### 1 7997949, 6971349348, 3355832, 9521088726, 2859097, 8091421, 2122216, 3498553 #### [facility] ([facility]) [address] [place] [address] 11271 Platelet mean volume (Bld) [Entitic vol] 8.0 fL Normal 6.3-10.2 [facility] Comment on above: Performed By: #### 1 1386646, 1901852500, 9149285, 9961983556, 0135726, 7258565, 5903238, 9938425 #### [facility] ([facility]) [address] [place] [address] RBC 4.70 x10 Normal 3.70-5.30 [facility] Comment on above: Performed By: #### 1 1069390, 3167329864, 8504590, 7870389839, 4974469, 3399485, 8567982, 3196911 #### [facility] ([facility]) [address] [place] [address] WBC 7.7 x10 Normal 3.5-10.5 [facility] Comment on above: Performed By: #### 1 9449153, 5519630447, 4638022, 5034412697, 7703154, 9798913, 9598078, 0434842 #### [facility] ([facility]) [address] [place] [address] Man Diff? Auto Invalid Interpretation Code [facility] Comment on above: Performed By: #### 1 4675875, 1017592049, 1605794, 5438482526, 1187589, 0040813, 9359216, 3912433 #### [facility] ([facility]) [address] [place] [address] CMP Standardon 02-27-2024 eGFR Non AA >60 Invalid Interpretation Code [facility] Comment on above: Performed By: #### 1 6579332, 0935476593, 1675677, 4050910954, 7042436, 9523980, 1661140, 1102047 #### [facility] ([facility]) [address] [place] [address] eGFR AA >60 Invalid Interpretation Code [facility] Comment on above: Performed By: #### 1 9999029, 4848899387, 7474087, 9873476601, 6002285, 3008871, 5830056, 4033599 #### [facility] ([facility]) [address] [place] [address] Albumin [Mass/Vol] 4.2 g/dL Normal 3.5-5.0 [facility] Comment on above: Performed By: #### 1 6920062, 2478242081, 4508413, 8669869595, 5266107, 0921972, 5236322, 6907614 #### [facility] ([facility]) [address] [place] [address] Albumin/Globulin [Mass ratio] 1.4 {ratio} Normal 1.4-2.6 [facility] Comment on above: Performed By: #### 1 4104036, 8411521739, 4477621, 4478247689, 0204662, 1196811, 0983110, 7154743 #### [facility] ([facility]) [address] [place] [address] Alk Phos 56 IU/L Normal 32-91 [facility] Comment on above: Performed By: #### 1 8702372, 1651608346, 2940388, 0741688280, 5655133, 7922829, 0154191, 0349099 #### [facility] ([facility]) [address] [place] [address] ALT [Catalytic activity/Vol] 22.0 U/L Normal 14.0-54.0 [facility] Comment on above: Performed By: #### 1 2527785, 8552850010, 4124767, 9159658932, 7958106, 0810578, 6761952, 0556260 #### [facility] ([facility]) [address] [place] [address] 92025 Anion gap [Moles/Vol] 10.5 mmol/L Normal 5.0-19.0 [facility] Comment on above: Performed By: #### 1 7478019, 4502987485, 1151781, 5799172943, 7887267, 5437557, 5273524, 2691011 #### [facility] ([facility]) [address] [place] [address] 79695 AST [Catalytic activity/Vol] 26 U/L Normal 15-41 [facility] Comment on above: Performed By: #### 1 2948409, 4308759619, 5198019, 4386969765, 9755192, 8224090, 5959266, 2301382 #### [facility] ([facility]) [address] [place] [address] 11995 Bili Total 0.8 mg/dL Normal 0.3-1.2 [facility] Comment on above: Performed By: #### 1 4584982, 5062087216, 5444154, 4972635048, 8244404, 9351882, 9158665, 3101598 #### [facility] ([facility]) [address] [place] [address] 75049 Calcium [Mass/Vol] 9.0 mg/dL Normal 8.9-10.3 [facility] Comment on above: Performed By: #### 1 5979366, 3161384563, 0043442, 7204418317, 9008595, 2721769, 5210700, 0466667 #### [facility] ([facility]) [address] [place] [address] 90575 Chloride [Moles/Vol] 105 mmol/L Normal 101-111 [facility] Comment on above: Performed By: #### 1 5064827, 0902726071, 0633674, 7486801848, 0253101, 8494369, 7586849, 7629256 #### [facility] ([facility]) [address] [place] [address] 22076 CO2 [Moles/Vol] 24 mmol/L Normal 21-32 [facility] Comment on above: Performed By: #### 1 6526393, 7477669214, 3638576, 9256671155, 3826160, 5745717, 9114653, 4600007 #### [facility] ([facility]) [address] [place] [address] 77153 Creatinine [Mass/Vol] 0.68 mg/dL Normal 0.60-1.30 [facility] Comment on above: Performed By: #### 1 8998390, 3183646997, 8560910, 7062345683, 1444236, 0251098, 3158401, 2771452 #### [facility] ([facility]) [address] [place] [address] 54425 Globulin (S) [Mass/Vol] 3.0 g/dL Normal 1.5-4.3 [facility] Comment on above: Performed By: #### 1 1436298, 5577953954, 0255003, 7050820969, 2817510, 0815092, 7157808, 8612462 #### [facility] ([facility]) [address] [place] [address] 67086 Glucose [Mass/Vol] 93.0 mg/dL Normal 74.0-118.0 [facility] Comment on above: Performed By: #### 1 5313934, 5026611033, 9123289, 5779823998, 8198664, 3618249, 8962438, 0516230 #### [facility] ([facility]) [address] [place] [address] 63850 Osmolality 270 mOsm/L Invalid Interpretation Code [facility] Comment on above: Performed By: #### 1 3843330, 2123111870, 1124604, 8600576371, 6811578, 3997223, 3561387, 6080067 #### [facility] ([facility]) [address] [place] [address] 91086 Potassium [Moles/Vol] 3.5 mmol/L Low 3.6-5.1 [facility] Comment on above: Performed By: #### 1 2261609, 6308676967, 1430370, 3295023569, 9627222, 5493651, 3493350, 6235452 #### [facility] ([facility]) [address] [place] [address] 94229 Protein [Mass/Vol] 7.2 g/dL Normal 6.5-8.1 [facility] Comment on above: Performed By: #### 1 0454466, 2790573986, 0634607, 3148990142, 1068341, 8529879, 9914580, 8404341 #### [facility] ([facility]) [address] [place] [address] 46954 Sodium [Moles/Vol] 136.0 mmol/L Normal 136.0-144 . 0 [facility] Comment on above: Performed By: #### 1 0126336, 5796276536, 0564484, 9458761813, 7700361, 0040849, 4977797, 9039311 #### [facility] ([facility]) [address] [place] [address] Urea nitrogen [Mass/Vol] 9 mg/dL Normal 8-26 [facility] Comment on above: Performed By: #### 1 4083516, 4034835425, 4092227, 0738680506, 4602877, 7995352, 4815197, 4830474 #### [facility] ([facility]) [address] [place] [address] Urea nitrogen/Creatinine [Mass ratio] 13.2 mg/mg Normal 4.6-16.2 [facility] Comment on above: Performed By: #### 1 8570770, 5181239073, 2694660, 0331155635, 1343330, 0010858, 6197507, 3231960 #### [facility] ([facility]) [address] [place] [address] CT PE Chest/Abdomen/Pelvis w / Contraston 02-27-2024 [...] Palacio MD 02/27/24 2:37 am Technologist: CB [facility] ED Clinical Summaryon 2023 ED Clinical Summary [facility] - Emergency Department [address] [place] [address] 43452 ED Clinical Summary PERSON INFORMATION Name: LUCILA JACQUES Age: 33 Years Sex: FEMALE : 1990 MRN: Acct#: Visit Reason: Abdominal pain; ACUTE CHOLECYSTITIS Arrival: 02/26/2024 22:40:28 Discharge: LOS: 000 09:38 Check In: 02/26/2024 22:40:28 Checkout:02/27/2024 08:18:49 Address: [address] [place] [address] PCP: Provider, None PROVIDER INFORMATION Provider Role [...] recorded.. Surgical history: CT guided nerve block (2016959772) on 01/12/2024 at 33 Years. Comments: 01/12/2024 11:39 EDT - Cuong Chowdary MA LEFT GENICULAR microphlebectomy in the month of 07/2017 at 27 Years. Comments: 03/19/2019 10:05 EDT - Margaret Perera LPN left leg Gastric sleeve (5043163354) in the month of 07/2016 at 26 Years. section (47400146) on 11/10/2014 at 24 Years. section (83468402) on 06/29/2012 at 21 Years. Gastric band (1964957671).. Family history: Clotting disorder Mother Diabetes mellitus type 2 (more content not included)... [facility] ED Note - Physicianon 2023 ED Note [...] recorded.. Surgical history: CT guided nerve block (2779715530) on 01/12/2024 at 33 Years. Comments: 01/12/2024 11:39 EDT - Cuong Chowdary MA LEFT GENICULAR microphlebectomy in the month of 07/2017 at 27 Years. Comments: 03/19/2019 10:05 EDT - Margaret Perera MATCHER left leg Gastric sleeve (2791543203) in the month of 07/2016 at 26 Years. section (57145999) on 11/10/2014 at 24 Years. section (52023744) on 06/29/2012 at 21 Years. Gastric band (5324909577).. Family history: Clotting disorder Mother Diabetes mellitus [...] Respiratory: Lungs ar (more content not included)... [facility] ED Note-Nursingon 02-27-2024 ED Note-Nursing Pt arrives to ED alvaro m 7 complaining of abdominal pain. Pt states it has been going on for a few days, Pt has history of gastric [facility]. Pt denies any other complaints. [facility] ED Patient Education Noteon 02-27-2024 ED Patient Education Note Education Materials [facility] ED Patient Summaryon 024 ED Patient Summary [facility] - Emergency Department [address] [place] [address] PATIENT DISCHARGE INSTRUCTIONS Patient Information Name: LUCILA JACQUES Age: 33 Years Date of : 1990 Reason For Visit: Abdominal pain; ACUTE CHOLECYSTITIS Arrival Time: 02/26/2024 22:40:28 Primary Care Physician: Provider, None Attending Physician: Maurizio Mast MD Comment: Visit Diagnosis: Diagnoses This Visit Abdominal pain ([id number]) Acute cholecystitis (K81.0) Biliary colic (K80.50) The Pharmacy at [facility] is open Monday through Monday from 9A [...] alcohol and/or drug addiction problems; contact the [facility] 17/04 Crisis Hotline -Text 4HMPU to 829882. If you received any narcotics, sedation, or [...] and treatment you received today in the [facility] Emergency Department were for an urgent problem and are not intended as complete care. It is important for you to follow up with a doctor, nurse practitioner, or physician?s lead assistant manager for ongoing care. If your symptoms become [...] so we can reach you if necessary. [facility] Emergency Department has provided you with a complete list of medications post discharge. Please inform your learning program manager/provider of your visit and for further instruction [...] for D (more content not included)... Normal [facility] Inpatient Patient Summaryon 02-27-2024 Inpatient Patient Summary [place] [id number] Patient Discharge Instructions Name: LUCILA JACQUES : 1990 Patient Address: [address] [place] [address] Primary Care Provider: Name: Provider, None Phone: After you are discharged if you find you have any questions, please, call [phone] ext [phone] to speak to a nurse. The Pharmacy at [facility] is open Monday through Monday from 9A [...] alcohol and/or drug addiction problems; contact the [facility] 17/04 Crisis Hotline -Text 4HRDX to 152228. If you received any narcotics, sedation, or [...] business decisions or sign any legal documents [facility] would like to thank you for allowing us to assist you with your healthcare needs. The following includes patient education materials and information regarding your injury/illness. LUCILA JACQUES has been given the following list of follow-up instructions, prescriptions, and patient education materials: Follow-up Instructions With: Address: When: Peter Booth [address] [place] [address], [place] [address] Business (1) In 2 weeks 03/12/2024 Comments: Call for follow up appointment With: Address: When: None Provider [address] [place] [address] Medications During the course of your visit, your medication list was updated with the most current information. The details of those changes are reflected below: New Medications [id number], [address] [place] [address] [id number], [phone] acetaminophen-hydrocodone (acetaminophen-hydrocodone 325 mg-5 mg oral tablet) [...] problems or questions, (more content not included)... Normal [facility] 02-27-2024 L Specimen: Received: 02/28/24 Status: MICHAEL Young Num: [id number] Spec Type: Surgical Subm Dr: Peter Booth MD Tissues: A Gallbladder (GALLBLADDER) Procedures: HE/2, Gross/Micro L3 Age/ Patient Sex Location Account Attending Physician Lucila Jacques 33/F [facility] [place] [id number] Maurizio Mast MD SPEC NUM: [id number] RECD: 02/28/24 STATUS: [facility] NUM: [id number] NIELS: 02/27/[address]: Peter Booth MD ENTERED: 02/28/[address]: Edilberto,Lab SPEC TYPE: Surgical DEPT: [facility] ORDERED: HE/2, Gross/Micro L3 ORDERED: HE/2, [...] gallbladder wall measures 0.1 cm in thickness. Retirement Officer sections are submitted in A1 (gallbladder) and A2 (lymph node). CPT Codes 63530 Specimen: [id number] Received: 02/28/24-123 Status: MICHAEL Anupama Num: [id number] Spec Type: Surgical Subm Dr: Peter Booth MD Tissues: A Gallbladder (GALLBLADDER) Procedures: HE/2, Gross/Micro L3 Patient: Lucila Jacques [id number] (Continued) Signed (signature on file) Domenic Hopper MD 02/29/24 2447 Normal [facility] Lactic Acidon 02-27-2024 Lactic Acid 15.3 mg/dL Normal 4.5-19.8 [facility] Comment on above: Performed By: #### 2 607182 ####[facility] ([facility])[address] [place] [address] Lipaseon 02-27-2024 Lipase Level 30.0 IU/L Normal 22.0-51.0 [facility] Comment on above: Performed By: #### 1 3758546, 0090484417, 2230976, 7737171126, 4629780, 5210147, 0273417, 8494099 ####[facility] (DEFAULT)[address] [place] [address] 88225 MAGR Intraoperative Recordon 02-27-2024 MAGR Intraoperative Record MAG[facility] Intra-Op Record Summary Primary Physician: Peter Booth MD Finalized Date/Time: 02/27/24 12:38:12 Pt. Name: LUCILA JACQUES /Sex: 1990 FEMALE Med Rec #: [id number] Physician: Param Michelle DO Financial #: [id number] Pt. Type: O Room/Bed: [facility] Admit/Disch: 02/26/24 22:40:28 - Institution: Case Times [...] Role Performed Surgeon - Primary Anesthesiologist of Electronic Intelligence Officer Record Time In 02/27/24 11:31:00 02/27/24 11:01:00 02/27/24 11:01:00 Time Out 02/27/24 12:19:00 02/27/24 12:36:00 02/27/24 12:36:00 Procedure Cholecystectomy Cholecystectomy Cholecystectomy Laparoscopic Laparoscopic Laparoscopic Last Modified By: Bre Spaulding RN, Debra RN Myers, Debra RN 02/27/24 12:35:49 02/27/24 12:35:49 02/27/24 12:35:49 Entry 4 Entry 5 Entry 6 Case Attendee Dina Malcolm PRECISION GRINDER EXTERNAL, Will Ortiz CST, CST PRECISION GRINDER EXTERNAL LEODAN Role Performed Supervisor Inspection And Testing Supervisor Inspection And Testing Scrub Personnel Time In 02/27/24 11:01:00 02/27/24 [...] Peterson DO, Bre Spaulding RN, Dina Malcolm PRECISION GRINDER EXTERNAL, Tru PRECISION GRINDER EXTERNAL, Marie LEBLANC CSFA, Will Miller PRECISION GRINDER EXTERNAL Last Modified By: Bre Spaulding RN 02/27/24 [...] Text: E.290 Eval (more content not included)... [facility] 4 [facility] PAC[facility] Primary Physician: Peter Booth MD Finalized Date/Time: 02/27/24 14:07:36 Pt. Name: LUCILA JACQUES/Sex: 1990 FEMALE Med Rec #: [id number] Physician: Param Michelle DO Financial #: [id number] Pt. Type: O Room/Bed: [facility]/1 Admit/Disch: 02/26/24 22:40:28 - Institution: PACU Case Times MAGR Entry 1 In PACU I 02/27/24 12:38:00 Discharge from PACU 02/27/24 13:40:00 I Last Modified By: Yarelis Schmitt RN 02/27/24 14:07:32 Finalized By: Yarelis Schmitt RN Document Signatures Signed By: Yarelis Schmitt RN 02/27/24 14:07 [facility] Magnesiumon 02-27-2024 Magnesium [Mass/Vol] 1.86 mg/dL Normal 1.80-2.50 [facility] Comment on above: Performed By: #### 1 8953670, 1847933920, 4869352, 0491728145, 1665350, 3929130, 5976520, 1443784 ####[facility] (DEFAULT)[address] [place] [address] Nutrition Noteon 02-27-2024 Nutrition Note Chart reviewed; 33 y o female diagnosed with s/p lap choly; diet order full liquids; patient with history of gastric bypass surgery ; no difficulties with chew/swallow identified on admit; encourage increase po as rachael; rec advance as rachael to regular soft diet; will monitor po with diet advance, wt/labs for changes; follow, assist prn. ts [facility] PTon 02-27-2024 INR Coag (PPP) [Relative time] 0.98 {INR} Normal 0.91-1.11 [facility] Comment on above: Performed By: #### 1 1498749, 0586355725, 7745124, 4595628110, 8306241, 5771622, 9263696, 2164316 ####[facility] (DEFAULT)[address] [place] [address] PT 10.2 second(s) Normal 9.7-11.8 [facility] Comment on above: Performed By: #### 1 7409833, 0302124140, 6115275, 4269069082, 9815777, 9091526, 4589478, 9159642 ####[facility] (DEFAULT)[address] [place] [address] 40812 Test Serum 1on Preg Serum Internal Control OK [facility] Comment on above: Performed By: #### 3 [id number] ####[facility] (DEFAULT)[address] [place] [address] 32375 Test Serum Qual Negative [facility] Comment on above: Performed By: #### 3 [id number] ####[facility] ([facility])[address] [place] [address] TnI HSon 02-27-2024 Troponin I High Sensitivity 3.0 pg/mL Normal <=15.0 [facility] Comment on above: Performed By: #### 1 9897450, 4361946018, 3789748, 1950455594, 7070097, 3936059, 6601885, 4152881 ####[facility] ([facility])[address] [place] [address] UA w Culture if Ind Standard on 02-27-2024 Breakpoint UA [facility] Comment on above: Performed By: #### 1 [id number] ####[facility] ([facility])[address] [place] [address] Color (U) Yellow [facility] Comment on above: Performed By: #### 1 [id number] ####[facility] ([facility])[address] [place] [address] Culture? Not Indicated Invalid Interpretation Code [facility] Comment on above: Result Comment: Resu lt created by rule GL_MAGR_ADD_UA_CULT1 Performed By: #### 1 [id number] ####[facility] ([facility])[address] [place] [address] Glucose (U) [Mass/Vol] Negative [facility] Comment on above: Performed By: #### 1 [id number] ####[facility] ([facility])[address] [place] [address] Ketones Ql (U) 40 [facility] Comment on above: Performed By: #### 1 [id number] ####[facility] ([facility])[address] [place] [address] Micro? Not Indicated Invalid Interpretation Code [facility] Comment on above: Result Comment: Resu lt created by rule GL_MAGR_ADD_UA_MICRO Performed By: #### 1 [id number] ####[facility] ([facility])[address] [place] [address] UA Bilirubin Negative [facility] [facility] Comment on above: Performed By: #### 1 [id number] ####[facility] (DEFAULT)[address] [place] [address] 17292 UA Blood Negative Normal NEGATIVE [facility] Comment on above: Performed By: #### 1 [id number] ####[facility] (DEFAULT)[address] [place] [address] 81743 UA Clarity CLEAR Normal CLEAR [facility] Comment on above: Performed By: #### 1 [id number] ####[facility] (DEFAULT)[address] [place] [address] 20326 UA Leuk Est Negative Normal NEGATIVE [facility] Comment on above: Performed By: #### 1 [id number] ####[facility] (DEFAULT)[address] [place] [address] UA Nitrite Negative Normal NEGATIVE [facility] Comment on above: Performed By: #### 1 [id number] ####[facility] (DEFAULT)[address] [place] [address] UA pH 7.5 Normal 5-8 [facility] Comment on above: Performed By: #### 1 [id number] ####[facility] (DEFAULT)[address] [place] [address] 01402 UA Protein Negative Normal NEGATIVE [facility] Comment on above: Performed By: #### 1 [id number] ####[facility] (DEFAULT)[address] [place] [address] 41161 UA Spec Grav 1.015 Normal 1.001-1.[address] [place] [address] Comment on above: Performed By: #### 1 [id number] ####[facility] (DEFAULT)[address] [place] [address] 93818 UA Urobilinogen 0.2 mg/dL Normal 0.2-1.0 [facility] Comment on above: Performed By: #### 1 [id number] ####[facility] (DEFAULT)[address] [place] [address] 76819 Urine Source Clean Catch Normal [facility] Comment on above: Performed By: #### 1 [id number] ####[facility] (DEFAULT)[address] [place] [address] 81362 US Gallbladderon 02-27-2024 US Gallbladder EXAM: US [...] Geovani Miranda MD 02/27/24 5:19 am Technologist: [facility] XR knee LT 4V*on 02-15-2024 XR knee LT 4V* [facility] [address] [place] [address] XRay Report Signed Patient: Lucila Jacques MR#: [id number] 31 : 1990 Acct:[id number] Age/Sex: 33 / F ADM Date: 02/15/24 Loc: [facility] Room: Type: [facility] Attending Dr: Santa Estrada II, MD Copies to: Santa Estrada MD Ordering Provider: Santa Estrada MD Date of Service: 02/15/24 XR/XR knee LT 4V*: M25.562 - Pain in left knee ([id number]) XR/XR pelvis 1-2V: M25.562 - Pain in [...] Palacio Jr., D.OWalker02/15/2024 3:38 PM Dictation Location: [place] [address] Transcribed By: [facility] 02/15/24 1538 Dictated By: Haile Palacio Jr DO 02/15/24 153 Signed By: 02/15/[address] [facility] Coding Summaryon 01-31-2024 Coding Summary HTMLBase 64 BpfssfstDAc2eTi+PGhlYWQ+PE1 SKWMrB24yiOAqnX6oB6QPUSkAZf eyPJIMDClMGaMihnOfIL1mfBTdM XJu IC8+KS4kLSNjHujxeFUbz9Q6jHL 2J90atg9dMTfwyDP3KZHqGrYrzp ymq7kllNr0ULgxXsyeOzJe RHDnyA22EYD4sI70Ac75uRRaoRZ qd8oztYf5VmXeNKPxZWY0rHdiJZ gca3WnEQEtA63glVAzf9Y1 HUIavVlijZItFbBnsUG8uP3qEKt vbazqu6avbgjsMhh9kd21eWGdi6 P4xQB3E3QwvgY6XLHgjCIu NgokaQJLjW1cytkvp4kginczFwM iPBSzRXx8TOz6URIhvArfChVeNR 33YQV6EGMpheYiL7KjDHWe wVrkXoF6e5N5Th9VM0ROFegdK1A NTUFSWTwvdGQ+PX99lb24M0ZwTp ejAvp2SABjYYV2yYQ2fA5p CKMmIWrhg3A1xCX4P8TqlbXdqf1 id6dsFMElVIvjN07ztDIio3S1WG GcoFW8GCKkrOqfJmQklR42 Oyc+LFPfdZpwt3AiNjatn1qya2a juGb2AkhuVBHqwbMidWdjVBZ4n8 ViBz9uBTFzmVM5xUD0fP5i RhCvAaV5ZDsnF674BpOqqUAdRzq oS56kG6DswMG+IUIpOmp2KQPgaG ipUN6oR8YvUZAwsxpatBLd eAlfUC4xTQAhxeknXTZrvG5tYOD nC4h6AfGyBsC7YJwsX8HcCIMbzn gdIl21dE2pVmYtQqE4QLxj B4EfvuK4XBCdfGXiXFgpTGG3L86 cu4Y0ETJoLTYqGJM7xST9lK8fzR lnbjogbGVmdDsgdmVydGlj JKiiSPiiY260PXMkcQblRlPqDTe uZyBEYXRlOiAgMDUvMDgvMjAyND wvdGQ+ZRJlSGX0eRoaKEUq sEFsUAojEk8kaShabXnjUF6fVXE gsyzaUAOraU7dNHSywOEjrZgbMG 3xAIXanljwk583DsJnUPA6 PTSswNUiO5OmvX6sIaPpAYZeSQX fZ8YcuHFdDWifM809QEdgOdI6KC VimfAgU0PyXPYlyBzkHwN3 u7Z0Dg2Ls0MmzzjyN5WqqOYsBjB nPmuySPz1P6YvUfwxmEF+PC90YW KtKW12QZy4KRV3bXjfWUlb HZVtZ8TdoJ1sBaRtPUQnFZXiChi +PHRhYmxlIHdpZHRoPScxMDAlJy SvnQavKK7cYj0kKSErQYIh rTnrpELuTqVsw1xvAILgZQdnZN2 srZgiY0KrpIC0FTTvt3l4Df05S6 4oH3UzyCF+OSHvoTO5nHE5 wI8fLdJuOaB3HXhoT933FgJtvBY nEevey0vpp4zenKi8RcA7OOOvkw KmsWhuEVL8p7DiPv83N05h IHdpZHRoPSIxNSUiIHZhbGlnbj0 ysH2hUx9+LPHgcQX4cME1aO8eMb DcFcK2AXaeV088EjApaSQy Occdm8zto4eifNt1EuQlMJFtlbH kqQhcHZH6u4MwBs29Z8HrpTspy4 UkVgs5nj21dPNsp4G2pDP8 W9AoLKWvxsxeqUYjeHmeUB2bAVG voikrCWOcgF5rDJRuX4p3RvQyCq F1IFiuO6EadrE9SEGgzVGw YWRwiUHEcZ9ggwfdq3jwacnfDxV vCPYqXFl5SXi7ZMJudKbfXsIwGO H5ArR3CNR6mLXwoP5wnEei telivE9xLhc+MVL6yWPtrELRSJ8 lOjwvdGQ+KWYyGVC7kEncMYpuKG SjlT1gMYNqT1r2YuPwPgR8 GBoaI8VhftF3BVVkbOAzSKIcnIZ YsW5ijwsmq5lgpqobXvMbDUOoGV h5IWe1CXOdbYkiDxTfHNV0 KiR6WXO4wNLnyA3dtUlezeepgA1 wOyc+SazclFwlKYF8EKe8F1TcDi j2JJVgeXpwLO7jdZNfEThn Dz8qxRnscWtlMB4fPUZoozjmx11 4OxUsw6yhPPAbiIOoSIufLKN6J8 6hi9T4LSSyHCLpPDF9uJK1 pF9vwRzkdphdfLLgyItvqpOnoPt zSAvuHLhhF498BKCdyErhFlZmLY w6M7DvHsl3MCZxlVtzFX3m uRMqPAuzBi9rzSihqGllYI6gGAT pcxwkv561HvIao1hlFGBxxUGyAS tgEDI0G64rx3H9GUBkRQDr BZN3vLP9qB5jhEhzaixmfSRelVc hvpTvdNchCGpzVFejY526GGGjvB pcRrIgqVh3Q3LpFaf4NXNc iAuhRB0afTOtZGzhZa1qdXnqwMw tAU8vMZFqkpilp633PwLhs1tuAY OokXBaVOosHAO4F08mu0P2 BAJvBFScTBI6wTH5dB7zdDekbgh gbGVmdDsgdmVydGljYWwtYWxpZ2 46IHRvcDsnPlBhdGllbnQg GAmlNTx2F8HdRwxjuGV+ZH39TZF kIT21rTJfpXXyt2zprIs8VkQqON AjMMW1mIwzQLofm8LkHRJe Z56hnNVjq4Q9DORmjUiqjZWiSdU loCG0vV9mHXddhjckp7yxyplmNn sck2vwfh50wK94B60aGHak ZAOsBDAjTFKxUIPklBjuya7bhI2 wIi8+HRSesNX5fNT4dQ2lQLCyMu A0GRnbI021HbJmgPSzFhif d0afr3cruZe8KwV7ADOiytBzoLl zERJ4w4YjLh40B87kHOttDWXjWX ZqJTOeQQGxfHxutx6smL8y Ii8+WLEyeEE4uHA0oP0pFqHjBqC 2AAzxS432JkVdlJWjHifoK19kM9 JvdXA+QMOsYuq9FNYscAoh TX5mhYWaWQudWx0cEJI9PfQnFyA kNOpqR2ZzMJPviaabqhsqdVO9YX ZcTINzuH37Xl0wcKpuAUFg bITHvH0kjexlq4hlpvnwBzUkLLP sDIk1VQf4KLKhbDceYuPvUVH2Qh K4TZE5bCDmcQ0ybLypqbmx xY8gD5PzJVSysbcyMg05vL6uOjL sEsH3UAawSsy+ReXVTzhaF8YYZH vYEcPNWMD7J4WrFpu5MVYz wEwrDE4vuSIsSYivGo8piSmdnGx xJK6zLMDugyibSJRrsJ4jXWZhhM UtnQnkME9vWSKiqrdxr376 BhClKYT2AOIyeHBkB6DlrV8uVgQ wLIMpQUDzA6OyqNRyNGnmI695IR xhBaJ2JCRlyrGbV3VlQNAa kGvpGbP0d2V7Ee8pJE0aXs7nIXn 9HR33JH78kZOen3M0cMR0A1AvAZ MzsowcwibotJX3FJUoJYNv yY21zARcOVzpPr3la6O0u877TQB mAJJstI99Uz1zcFldMRSulIITrO 1ovoxxx2akyobfAkScWGQn NJc4BLm8LGYcdUjlDfBbEHN8UqB 0RTW9zUFmfS5mkJjigpgirX4kJv c+ToNmMGYnisJ8F4AfAlo7 ZXPqmXwpAN3ruWNvDFpeHw8keJt rbKwvMY6iBRNlqjmrHAGxmR5pHP ZwgGFgrDbgPC5qYECnzgbn f682RgWaLQI5OASiuUQlM7KkpH5 pEwQaNXPqVZUyG2BxpMPqWPvdC6 75OKwwVvU0EPTedyHfB1Gl ZQOdoBciHeE2w0G9Bu0XVC3KMMX 0A8JvBfa2XXKpcAmlAK2nrNSeCR gcWf1qaYkldBidRN8zDZHx wvvuZJNbxY0eESYciSDyiYezVC5 jWEJjxuqra211UtKlWJL0XQAhrT IqI7VteF3mNwVaSPDzQXLa N2AksJVzTQhdN017TIjpAxY1LZD ezvPeQ5PyLBSyeRgvYjG7r9G3Un 5PUDwvdGQ+IH93kw35O8Ou DmhuKjw0NESwYCI3nBW2zT3pFQZ cLJbvx6C3vCV4N9TrulCiju5et2 rsTTXhYDczF08zqRNkk3A6 WTIdhJE6COXziVcvZdIgkY07Hrm +VLKzcYnau6TbLmubm4zvf3jhzV l9ZnFuZOAnubDuiKhmHMD6 m2HsHt82L36eQJrbFRBfQGElQTA pDXVlcCszkv4fhY1hUj7+PGNvbC X2yKR8sP6aUlDtLoD4OYmx L551JqQemFLcTihfd5wab8pxbRt 2VxXuDQTshrLhmBymJQN1q0VlMu 63V0PadUijg9LdNxs2de17 zCBuo6J6uIP2O1LfNJXgbrxlrHN qeWstMK3iSCQldmmfARCeqM9fSC FtQ5z6OzOnEjO5AIvcA0Ud vhQ5AKVupILtTYUraIEGzJ6bkwz cq5vxkcmiWtMkMYHzLUr8DFa7KZ PtrMmbUvNwUDP0VuN7HUU7 rXTecF4lwUbwuudixC2mEjv+UGh 6p6wskGKwUY6auXA0LB50VV19jS Rlq3O0yNM5A8JgDKYuyypq vssypSU8NPSmQXAcwX91Ug5ktQd sEe0aDGTePTM1ZKLofQYhP1TdxV 8mVaYbBAIlAPBdO8CvqOYs KLmyB658TFotMpN2QAJladDjP3L xUFGjmKbxXdI3f9W9Yt7UPM80ST 83PM64rFMns1T7fAC1F7Ql REGpjbbsgrrnqUY6AVNwZDBcgZ4 9Ip1ipYevTe4fOMNfQMN2JAApmM XkT0PvtD0jWuItQTElWLOu M6RvqLJfPCtoP020CRhfFcX9WDS prsZeT3RtELZogClePpC1y7L3Yl 2YXz15OM31KB70jUQkx2X7 yTJ2R7VaEXYafbkjuvfnpAX0ZPT iQCBjtZ13Oh8skQtsIt8tFVLeJH M2XNBpzMPuE6EkpZ6kSwOa DIVlXMBiT9JqvSLjMPktT508FBk rTjB2ETEtbwXsT7IeWFQzzWhdAi T0p7V0Qt2GADdtwld7L5Bj PjwvdHI+UT78YDEhQD88mVLfqBP nx7dmsNv0SnNiQULjTHI8fRkvBC ukm5OwJRVcK93nxNZjh0L0 IGN (more content not included)... [facility] Progress Note - Provideron 0 01-29-2024 Progress Note - Provider [id number] [facility] Coding Summaryon 01-22-2024 Coding Summary HTMLBase 64 CwacelpcTFo1yQu+PGhlYWQ+PE1 UQFJpO32paGYcaB6cO0ILZTfGRh rwSAFVCNjOEmCilfZvCT7fyMNbY XJu IC8+JK6bFMIxVgjbmONqn9I8lWW 0H85gjp6pSJvuuNM0DOWsHuFdzp ycm5cqwIl9SKlrLvybZxVa MQVmoP31KRD3oF74Zn63pNZidEW do1zxmXh1UfGfKFOdXYI8qLurMX qlk2TtVGSnB78ygPEew9X6 QSGyyPbpnRVqIbTcaCN2zZ9nRHm ueovbs8ppywdfZch3ik96gGPad5 I3hIG9E9BmtpX2ETRcwATe HndulFMUuH9zovobj4efyzzsFkD iCKAxFLh9HCj2VNQglDneUmCeQC 77JEX8VFDauqJbW5WlPFHo tZjrQqT2q4A0Pd3VE2COCakpB3Q NTUFSWTwvdGQ+SC26ay90Q5BdTg rfSqk6COZeWGT9yEU2jZ9e LRPgPEinh0R1cHZ0B0BrurLhco3 mo8fbFTFnDIawZ97jxEXce0T4IH EboLX8TRAcbFxaClXjvA64 Oyc+EEYspYmme7LrHtutu1kis9x tzAm1MhmoXLMyugEfmMkiCGL9t9 YjIh5hUCQgzEY3oZI6jB7t PrFhEzH2PTbdF777QoPzpAEmDup mE75lT8XkbSL+FVEaAoe1LGCvjD vjXB4eB3XhPRNekrvdhGHj vQhwJI0uEPNuorzcNUMkpX2sAWR rU8b5ZoNyPlY6UPfhB6RcDTYmnm xyGm45xB4pAeMuOpR8PTsc W6OdcuD2SDWtrLLpOIxmUXU6E10 md9V8MAXxBRUtTRS1gLB4zP5yhR lnbjogbGVmdDsgdmVydGlj NKwsSYbcH399FCAnlLxlWaXgFLi uZyBEYXRlOiAgMDQvMjkvMjAyND wvdGQ+YLXaAAY3oOasROTo zDBwZCuwUn9vzUjraRszHO6dMJD syariNGSvkB6gLBRroVZxgUfxKE 8dDTAjwzteh776NpRyYAE2 TDFvfVWlM1XwiJ4cXjNnPPPxNNH bZ2GwiAKjMXjqM783JKnhWbD2OB FaqlDpL5MhJTJfmSxlHpX7 d2T0Xk7Dc3CrfvkmG8TjuSYxKnQ rGpjdDJf0E2XbCwvzrSN+PC90YW MtVH51WXf3KHQ5qSkgMLam TTDeE3CsxL7lVzLjRGLcUCSbUwk +PHRhYmxlIHdpZHRoPScxMDAlJy HpiQvzLI1tGb8rZMZcIQKh zNswyZJpEkGae6bgFUPuBPxqWF7 miKyrT8WlwQR7QZDtv0x4Zs33X1 6aG8XfvHI+JKFtsOO2bQF2 gW8xDpDiMeQ5CQivQ913AiKnzQF fIszkr5kdo3qmqKo4JlT8QWIclu KaiSftZMJ9w0LzWn96E69i IHdpZHRoPSIxNSUiIHZhbGlnbj0 jmR7zFg6+HBCdjVY5fDX5tP9eMl XfYcL8WUhlO112KuRccUDx Dnnkm9cji3mcdWw0CkRvXGKiafI ibSaeHWE4g6MbTk93B9IncVbyt6 QaAmp2kc25mMNmz1H6zJW0 P9JbLKBshihboVOumLvkRU8rRXO fjcxzQRYfsA5aVBSiU8k8WaXvZp M6EFrlD2KnzgP0UHOroWCe EPYhvYREpR0swyatw9vprhliFgQ wKONsTVt5RIl3BTRwbLrqJtToAQ E6KxV7DGU7xRXhuH2ghAvj pczbhH5lVng+IDM7hVPqwGNZKP1 lOjwvdGQ+GLCvTVI3kDadRIbzJR TcnB8eLMWhB1t8SvVrPfH5 VBluK7VsdnT6AZDglIQyTQUyaGW JpR4xavkfg0ezreunVtMcKZEoLG t9OOc5LBVgvZraBlAiEIM9 YiO0EWP2yVGrsE0ybQhvskmulJ2 wOyc+WbcoyXnkJTH8NJe6S5EbQh i3XSJiqQcaHO3nkQNlXXoq Wt6rwKlclLnzTW3bITXcmwsoa59 1QzMxo5czLFSaaGThEUzpRWK7U6 1ts6I0EKAyMLUeXZC7fGS4 zD4xkKhekquucZAavBkymyRkoTr wHUxdFNpqE948XBMhaLrqMlGaUZ x0V9ZdHlv6OBCfsIpeGZ6c dXOzRNupPq3gsTxydCynPE8vPME dyfdex418VfRkr7qeLBSzjUWeOJ diMZS8W50ao8K9KCEsMZDd UQA0uAM0rD0stHdqrwavvQDboJx wnxThoIfbUFifBZtpQ234DSXptG jbBkNufPz9D7JaVjm7CTNo pUalRN3yhOJvLIuwVo8uxDeqlJf gAT8tWNFhstfgj827CxIfc6cbME XlhOCxQIsjWQO5K17db8B0 YZVfSMYoSOD5rAH5kE1njDhhspi gbGVmdDsgdmVydGljYWwtYWxpZ2 46IHRvcDsnPlBhdGllbnQg CFwqGYa4B4OdEkucsTS+UH23PNR vSU55jIRpkNWmd3dgqCq6CpTiKM DoLZW5cXkaHVaua5FrOSCc T69ihBAve3V3XQXpzKmqxALhPwC paYE7jY8sFUfcddhyi2cunakyRw ymi6jrfx12cN06G76sEKas JFXgNWChSRXiBBPwkHwtqg1ddA7 wIi8+RTDxaXR2qNE6iN1gXEOtCl K6IKxnH999LqCueDLnXpll b2vxp6orsRd5IkK0USDuodJqhWs iHKT2s1HzMj92D85iQKkuHONkZB HwEPTjUFSmbNwwoz2pgD5t Ii8+VTIjePX6tFK8fX8cLgZyNcO 0HQmnX540GqIhgQGcQkotH49mX4 JvdXA+TGWmPjc1MNGjqVpx VJ9ldJTjHFafNq7nFON0TgEeNfX zWNvyL4IiMKJyplpsjxvkhII2XN VuKMRfgB36Ch9geIokDDCx vBDNwS5blecuh0loyvsbKwXmMOI vOEi3JDf8XBSmpHvbZnTmTZJ4Rv U9VTG3gYWskY4wtHgsvadn bJ3xQ8QsHFXlwgfeQs43uK1pCoP dCsT0CHzgFsi+BkIHVpyqS1CPUS xDPgQAQFF6T8RiMkd1ZCTy zJpzVK2ppQTbTQjmJb0gzRfxjDs xKQ0uIVAhmtofPASlbP8yBQVfqU VgvOwyTB4lRCTdvkgri246 TlLcVVV4UYUpxYDsH3UwiZ3gYwI qGKRiOGWuF5SspYQgNIbwZ799DE vxLnL3XGAbluOxU8IvHXDo sRnuYhD0g0P3Xh7oXD8jTu2sKMl 4YS43EV22oKMnc2I2wFM3U4RlVO XeujtbrtxgpSU0PLPtMIFx yH30aHOkEKsdKv8pw6L2b608QFP tIKHaqJ83Ws9ofUxoEDHeqIGZsL 0avamhq9uskkjqKkYqSNZj ATo1QPf0XMXszKfvXnRiFXH4FpN 7FFV4pIFnvM3yjRqxcoldcR7qQx c+SpCzCPMnaiX9U5OkClm7 ZGAbnMffMX6opWPxBCtnYq1ixOc uyOzbHT0lQZOapdthPKAsbB9nBM BieQCqgXamPP3hHBZvfuwf b103ZeCgVOK3JBPmuNCxQ2VjfX3 dAzItYSEiKESgZ9KjkEFcFEvuV5 14UIyyJeY0YGIucjAaU0Vp KHYzeWwsCvT0u4L9Hz3WNH0CBKW 0X3LzSig3KEYddEwtGE6pcGYzFO bgZp4fnUmybAioDX7iZHOl vfcxQSHewH7uQDIaiPOfzUfdUV7 lMRVwjoidr915KpOyDFG9NLFixF KnR4TwhB2tFaTkCYMqCLVu Y4DjrEWuWHaoM165KCptMrI9CBH rvwYhY6YnNRRgjKkuCaT9z9M0Cs 2JCExuX2EgS8JwvFbrjLZ+ CR45pd60O3KnMrrdQau5MFAvXHI 6hNT0jX5zTVKkGXqhq7V6lHN1N8 EwjaYsqw2dq9wgHLLeYQyf B75xuWKcv7C5VQNpvQD9PTWgyFm wAlLjbG64Tnk+SQGddPkkt7MxOz pil2apx0agjAu4TpIeMXAb gtPeoSpsMSS1c6GmLw70Z01zOFm fUDVwATNiVFLoLRKhtEwiyi7heG 9wIi8+NKFueUX6nSB2kA3i YzPvDuE0BTckH283KmXkpGWuHrk tz5bof5ugiPn2AcCmHPUftuHwvC nvRBZ1s4AtBe96I2TdwFxm g3KwBku6jo46zPYcu3R2qRZ2D7W jALHdyvgjcHFbtGobCL3sCHHqrd ssMBGsxG5lRVGoM9d0QhAq ZkH2XUxvZ8MjjfS5ZDGdzXHmHKY cmAKUpK9uraury7mjepmcFtIeQF WxWDh1DSo9JULbwAhvBcUo IBA5OzY4BGO0iFWffR9nwWevkwz vsJ5hZrb+YNi1n3zyyAUrKT2hpM D4TP24EE85lHYjm2W7lDU5 V1VyLSCauvpgqouinWL5FNOuBRD roJ62Qn5qxTsjAa1mRVKaCAD9QG TujWIvC9DdoQ0uQlFqNYDj MSAmV8LbzIBnDLkjE555FMjfFlN 2QIPgbmTrZ4SvJXHyjYauNxZ5n2 B1Gi5OES08KU25UR50iLNx o6R3eSC8L8XvSOZhgejsisbeeLG 1NCAgHYBtiB08Ts1qeQsjUx4mKK BfJGG7NKNbsMWcC4SykZ6d SxXkUTOzOPLdA1DttXDmCZjuF53 0UXssMnP2PWVexqQkC5HoADUmoH ucZrX2x0Q5Jw7TYq62PM48 JR35dWQed8D2yHH5R9RdOTLybpo euxfwzHI6WTXqYLQtmU33Zd3zdN vhDv4oEOIwCPB5XGBbiVNp P3BfzD7eVhNpWIPhXTKaA4OrwRK hCHldP082AHvzXgY9QVQckaDdH8 OtZASgiLybRmY6n2Z7Ph8V YLberku5M1JoTkfeoQH+VK29VYY qWO99iSHgiPKgr0glzYm7FnHwGV AaKEI8oBuaPBltl5BdCLTf Y29 (more content not included)... [facility] Coding Summary HTMLBase 64 YbipvuunFQm9bMp+PGhlYWQ+PE1 TQEYgV09ifPQuhY9kC2MUTCpJHt mdSDVBWPfVOpBkliDwNV5njUHwV XJu IC8+DR1qXDWxLlgxoHHyn5V1lGW 7Q39akw7vZDzaqDU2FVDlEeBtgv cgs4rksTq0BChbYhwdAqRk NTJxkO75RZL1pD74Xe45kRZpqPS nv7abkPe0LgLuMUGgOFT6wGijGA zjy6NxMNDnH03zcGZgz0T3 EGSshEmonWScSvBetYQ7gK3uZLc lcvdrn1pqskwhSqj3ga52oNCsj1 F2bFM2Q7LwccH7QVSbyQEg WsxinIHVhC6wyaprg4ahtdnjGuB eHLFxIUz2MFi6OTOxeUunQtQgVU 03FRH0TOEaxvNdV3OfXRJn lOanAbT9q2Y5Nk3PN1TLJxmzS6S NTUFSWTwvdGQ+WZ48ko64R9KqCg vjAil5LKLgBBE5gQP5qU8q SFUwSHqvj5X8dQM0P6JkjaJcto5 xt8cjSWYvWTwfM72yuALhv9O1JY YavGU6XMSvqTckRfEnkC36 Oyc+KZEiqKtjt6XvFkxxv0hcy2x uoLd7DaonZRKvlxHasCpwDDQ4m1 RxCj1bGANedDC4gXU5mQ0y GpTkAnJ5CCxnJ909HxWrbMEaEbf kH33fH9OwpRF+IIAmPcc1HIRscQ llQA6eC3JzDPIhgbrhqXGk vBfqFQ6yJKVlupflECWmvT7yAUK mG8l3NaCgTgW0KGopW5RvZXHdzt ctTs53jV9hRgLxQmF5VMva J0JtosL9JJXnwLPvLNtlMZO5K13 oh1S8HUHvIMKkQKW7pRR1yQ4kkO lnbjogbGVmdDsgdmVydGlj TGvhCNpsE413ZPAxiZghUbTkHGr uZyBEYXRlOiAgMDQvMjkvMjAyND wvdGQ+MRTdWLL1jXubLFYy eMIsMYyyDu6iuAibuZekRF4nSIK iejikGXVxwR7lPTZmuHUbyJngZN 3gANIjgimwa937UcXtHQV5 CJPslDWtU5TjwZ7gAxXqGBOwKZG gL3IfxHSyVGzkH679EVhhZoM3RC UnfdDkG2KiBPReqAgsGsH0 l4U9Vt1Lr2HwiqsyP8PyzDOkLsD qRcgeWLd3N0IzXihujHW+PC90YW RmSO05CTw6OPT2nVugJJii PFZrD0ZkvL0bOzEnFZFjEOIjOsy +PHRhYmxlIHdpZHRoPScxMDAlJy VunMppSZ6eLa7pFLXiHMCe lEtelEPvVvHfk7muKHPlWUgzMX5 glAxbB7XfcSI9SROcl1k8Wk59H4 2bA2BtgDD+RHVztNR0sCF5 wY1tPhCuTfD2MNwoK947RqXobQO iIjlva1kok0tuuSq5WbT4ZWYhua AnoHpeQHW5h1RfTf06O98b IHdpZHRoPSIxNSUiIHZhbGlnbj0 ddQ0sUl4+PBRlgAN1sZX5jL4iHk PqMtE8WVytE984KyImvACt Cgyfk7kxu9iymCr1EePdPAXeryP xlWeyDET2k6GaYl39R5CqcUlkg9 IeSsl4wf61lRMsx3Y2gOS7 F3YeYMYkzjeqlTRmhFboWE1rVUK kvntvDEYbfS1nDJXmX0w6AuCdZh S7DFizB6TikuT2VJDnwQSc ACTlkLNDhZ2lkyvmu1kpxzgmGnB gSSAqELh3TDf2PPYboEraPvZbDO V2MkX0ZOC1fSZkuG2sjJgp jmqnxL4kDtc+SKZ2zECwaYAGLO4 lOjwvdGQ+VXIbEXI1eCeaIUbgEG NuaL5dQWFlV0t9XwRuEjR4 EAyuA2EbdhL6EVEqeXUzIHUlpCM MsI5adhqgc7hhvihhTqSkQDPqEE w6ZZe7GWWfmZovZoVuZTL3 BpF0GFJ5mWCkbJ2grGacerlxwH4 wOyc+TawnqVijCRQ0HYw2A7RzRb k2BOFzxWnfWN1oiIJtMVko Fi6xcBqtmWvsJO9cGHMmhcagh96 4KeKvz9djLBPgqDVkRKtfYBY8S1 6ls1R9WPUoZRFxGDC1fQZ2 sJ9suQhznhcrqLAagQcwsxIoeRi bRHdmTVwgF255QPXdkLjdXyWeHP r8J3GiNfr6JVQweBguXM4o uCGlPRipCw9lzIsnwHunFX0mYLO poxstv605SbTks7tvXFMcgHLnMT cyFPT4F07fd4H9HUQqVFFk PSW3pJC0jF9wxFqyzmercVQkcXs upiSamUikWQcoFRnnN559KHSnbN rdNsCrlAi2N3ObMhj7XVBr tUodLZ3nlTKuHWibDt0msTxsqGn kUD0vICFipcopo627AgQya8zzZU YmwKBiKRpkJTZ9N05yn1Z4 UWNwOXFdXEX0tVI1rY3faZzspqc gbGVmdDsgdmVydGljYWwtYWxpZ2 46IHRvcDsnPlBhdGllbnQg CWjeSTr3L2QvOofriSM+BX94QSS lNF48rQIiyMKsq5wonNz9FxJdEG SbVJZ1kVdkNNbxi1RbQFIx L43tjZUvf5X4JAZkeTwahJHaHcC ixAJ2tV6zKJgeopbrc0zaagayOt tyg8tqpn24kN95E36zPFsf JEYzCHXqNQMuXWJzlDslnx1yyQ9 wIi8+JNIpjFT0xWD3qX3hNXSeYu Y0MUwxH586UnIlgFRuJmbx v6hyf2kdbNl8OiQ6ZKGqgaAkmFv sFDX0t5UsUv28V25vERtgFYUbNG NiBVNqSYFcjMegqi5pwD5o Ii8+RDJkrUJ5qEE7uR5eDqPqXzF 3ECebP991FfWtvXXrRexrU24nY1 JvdXA+IRGeIxj3MSQuuGpj PI3zwVHaCNifSv0dXVA3OyCxTzC zLTfsF4GyUQKpgrvinqsprVR4HR MsYRZmjO65Kf4zuBynGPGb yVQXfO4whdclh3rshpkrUrMpKMM dVAx8XGn6JYEexRfaAjOzYUF5Dk X1SJH7ePFhhR3rjNscmddv qZ8mP8WtSJSnnaxzJr76dX6tCmX hWnX6CItgKsa+GdJMIqupJ0UIDF aLCgNLUVV2D7KkBfq7ZDEz jOtqOR6ehASkNXlkBc6dcBlvaMo oEJ9xCHFjgnsuDCYhiV8wFWIphX RtdIxeKW0eLIXpkcpmj206 DsJbUZT0IEAyfBWcF9DdgL1aIwC zOYXjWHXzF6JcdTClUDteU297LY esOpN0JRQywgBdM8OdDNHr oTjpRmB8t5F5Sa0dRQ5kUq4zYIm 4TU64DC37sRPpm1L5dEO1F6HvWN ZdhkiwqvluuKK7BAAbUXYe yF99jKOmNHasWq2iz8V6v564SUJ fVDQcxL83Id0icVaaTZKzrCZDtQ 9lclvjd4zjsqntNrBtLXVw LIp0WXp9LTMpcKguOxHxXRI3YlN 1LSM3wDUoaO1miFivxjwyyW0sVs c+OiOdPKUocyI4P3EvUqw3 GKJvaIiuFI5rxLMtEMkjQs3zmKu qkWhzQZ6xRTVbjqyyOCGkgO0mWE VsxBHumSzdPT6pMWLaiysj e179SeDxYRR2HROlbAQmZ7DhpN3 vVcOiCSWmUAKqT0QhjMSdKLweP8 60TEukJhI6MOLjkbNyP0Eo AJLdbAbtGwV6t5G8Ap7KPX8ECJJ 5U4ThJnd5QSWziLaaOC5wxPIxGL rrTj1asOdmtYttHH2mNFJv noujUVKhbU0mYCKogLEjtZifRK7 cMQGpvwbfu513BeNsUOH2UOMblF MeB0CckG1lWnJfNUJnCHXq U3TusKQpVVkpN150FWbrKaM4STC jaxUfO9LpCWKtbOcbMdJ8y1H7Lt 5PUDwvdGQ+CU40nj45L8Ms SmboNqs4KGSeOFO6xCA8lR3kXXT nAKkwn8N1aQE5F2EzvmMlgi9bh0 zaVTLqGTquU98ppHToe6K9 LBQziVJ6RCDitNnaQvSqqZ04Ibt +WSUbkFbzy3PcFvzly4ply0cokC t3QzSmSQEmruBiyTctFTK5 b8NpZc40E18iGRjmDBClYPDtXQM bEEMihJrndy4hpK0uGw6+PGNvbC E8fFA5uP9qBfCmJaV3OIpp S340JgRtsQHwNnokn3ivq5glgCi 2JiSoKVMhtrNzwWvrHLJ5v5XxOf 16M2UtwFbhd4GxVjk2ry81 bMLsm8E4zRL9G7AvNSPhjucdaYB ysCqlTH7pEBHroyejNVVhiQ0lKA ImP7w8SdJgBcD1GImvD7Jv gmA5XRTpbBScTKAieNKUcW6pyor ej3zckcrdPfGuTMGaQAq8BGm4OV QnpPfqVdTyDWN4UnL2EAU2 eBKqrQ1bvXcepftacE0yYfx+UGh 9z9asqZSpAQ6kuKH3TE14BB54tW Vvk8V4pDH9U0RrNJIjvzzp ykaanOE5SMYxRAIgfK65Zu1tyVl mLa3dOGRsYHU6XKXwnFYxJ5MbvU 8sNjNyKSSoQLPdC4DlxJLv XFxiE899OLecGhV0AGBytsKzI2T wOMJijWtfByU6l1R4Xm2NXH08UO 89SQ87bUEgq8A8iLW6J1Ld NADectbxudnzlTI1GKQgREApaY4 2Lt9noWduIu2sNYLmXGQ2RYIopR GoY0NmyD1sFwGwSHZtXVDu P5JgsCAlQLwzA164UIdfFsX1EDF dqhBlM0GhJXUduOuhMxW9y8Y2Mz 4VBy50ZD16BE85lYFfy2P1 mOF0M2ZdTFZehugdalsurOL3JXW zXRBnnG66Dn1seSjdNc3sBZSePJ R5ATGpoLCoP4JuiV8cNtCy SGJaEPPzW0ItfZJfQBjyJ807BDf rWcT3TQZbrdObF4NlYQYmsGwfMj R2i7G5Jk6ZDLorysg7B0Kz PjwvdHI+XB63NMDqBS52hJUkiKU rr9jtnEd4BgSdNIQiOVT7cLdbNY lqu5LlORPdT01xcGQuo9S9 IGN (more content not included)... [facility] Consent Formson 01-15-2024 Consent Forms [id number]12[facility]24 Consent Forms [id number]#1.[facility] Controlled Substances Agreem entson 01-12-2024 Controlled Substances Agreements [id number]#1.[facility] Inpatient Patient Summaryon 01-12-2024 [place] [address] Patient Discharge Instructions Name: LUCILA JACQUES : 1990 Patient Address: [address] [place] [address] Primary Care Provider: Name: Provider, None Phone: After you are discharged if you find you have any questions, please, call [phone] ext [phone] to speak to a nurse. Discharge Diagnosis: Prescription Information: If you have been given a prescription for narcotics, seek immediate medical attention if you have any difficulty breathing or any sudden status changes such as confusion and sleepiness. If you or anyone you know is experiencing suicidal thoughts, mental health, alcohol and/or drug addiction problems; contact the [facility] 17/04 Crisis Hotline -Text 4HLRR cb [phone]. If you received any narcotics, sedation, or [...] business decisions or sign any legal documents [facility] would like to thank you for [...] for Disease Control and Prevention May 2014 [facility] MAGR Intraoperative Recordon 01-12-2024 MAGR Intraoperative Record MAGR Intra-Op Record Summary Primary Physician: ALEC PATEL MD Finalized Date/Time: 01/12/24 11:47:08 Pt. Name: LUCILA JACQUES /Sex: 1990 FEMALE Med Rec #: [id number] Physician: ALEC PATEL MD Financial #: [id number] Pt. Type: D Room/Bed: / Admit/Disch: 01/12/24 [...] Sara L RT (R) ARRT Role Performed Electronic Intelligence Officer Electronic Intelligence Officer Electric Accounting Machine Operator Time In 01/12/24 11:40:00 01/12/24 11:40:00 01/12/24 11:40:00 Time Out 01/12/24 11:46:00 01/12/24 11:46:00 01/12/24 11:46:00 Procedure Block Nerve(Left) Block Nerve(Left) Block Nerve(Left) Last Modified By: Reba Liang RN, Kelly RN Weisenburger, Kelly RN 01/12/24 11:46:22 01/12/24 11:46:22 01/12/24 11:46:22 Entry 4 Entry 5 Entry 6 Case Attendee Mason Garenr RT (R) Dina Malcolm THOMAS F MD ARRT PRECISION GRINDER EXTERNAL Role Performed Electric Accounting Machine Operator Scrub Personnel Surgeon - Primary Time In [...] Xi Lawler RN, Rekha Colin RT (R) ARRTPatsy James RT (R) ARRT, Dina Malcolm PRECISION GRINDER EXTERNAL, ALEC PATEL MD Last Modified By: Reba [...] E.290 Evaluates (more content not included)... [facility] Pre-Op Record Summary Primary Physician: ALEC PATEL MD Finalized Date/Time: 01/12/24 11:49:22 Pt. Name: LUCILA JACQUES/Sex: 1990 FEMALE Med Rec #: [id number] Physician: ALEC PATEL MD Financial #: [id number] Pt. Type: D Room/Bed: / Admit/Disch: 01/12/24 [...] Signed By: Sushila Quintero RN 01/12/24 11:49 [facility] Patient Handouton 01-12-2024 Patient Handout [facility] Test Urine 1on U Preg Negative [facility] Comment on above: Performed By: #### [id number] ####[facility] (DEFAULT)[address] [place] [address] U Preg Internal Control Pass [facility] Comment on above: Performed By: #### 3 [id number] ####[facility] (DEFAULT)[address] [place] [address] [id number] Progress Note - Provideron 0 01-12-2024 Progress Note - Provider [id number]#1.00OTGTIFF [facility] Coding Summaryon 01-10-2024 Coding Summary HTMLBase 64 OzvipquvZJf5gKm+PGhlYWQ+PE1 WWPCgP51zlIFwcT2uG3VOFEsETv wsRIBGZYtBScYvrnZdSN5giQFqY XJu IC8+KU0uKVXgOdivyCFfm1I5yBY 9G09paz1lXYqtpHD8NZRnEpMjke yhj0enrDx2VZhlDqrsPjNn AFLhcK37GBL9zB26Ru64kIOqeZZ jn4xhrWy6YxTrLMZaIUJ7vDueHT acf9ZhELQhE14beSSre9W0 RWVvxAczvRCqMiNbiLM5jZ5wGJb xpfofu1gulnxjIek2bp46fVWid9 N4zOO2T9ZxgqY7RPCkwRJj DixchHFGpS4dautvc4fovitiUdE xGGKaDFv5UXv2UINjyRmaWdQaRX 06GBS1LHRyaqJxJ3FyDWZc jIcfTeV9g1A0Sw7QN1YLLeftE8G NTUFSWTwvdGQ+SQ19jq99H8HtTz ivXim6OWWpVAC4tMF0eF8r PLCyOAuhs8G1pFO4D6BknsPhnh6 eu8guZDXrACseU03ihLOhl3Q0PH EqjJG5IBTxhWfnAvOrbN88 Oyc+NJZlnNlhh5UzYkkkl6ebt0f hxOo6PznoEFYbsvQvfWuoHWH9t0 QyPd1nQQQvlCP0vMT6hM7u XhZmDpO2YGgyN779ArMceISiHmo nK97yW1EzpAK+KAGjYzz0ZOCrkT mlKW5qI2HtTRHaeqidkTHo lLquTS4dGCPmtzsdYOEpgR9pPNC dE8g1LfIeHdM6HFigX4VaQJCkia uqVy66lU9lWhOdMmD8HYrp Y4TrgxW7ADFhbGDsJZyrEIC2U79 hb7O9OIOtPGHiRAO4fRB6uT3qyB lnbjogbGVmdDsgdmVydGlj WFtnREdvC041HCDymHkhIaOmMDc uZyBEYXRlOiAgMDQvMTcvMjAyND wvdGQ+FOQaYSO3wBmnJKPe nFZoHPooNq1eyUbwpAerIT4dDSX ijehpUBNkxA6mDSQodCTszQzwKZ 9bEFGxekotc691CdIaNJP6 EGIldUDaR0WjtI1sSjOmIRZdFBA hP2QgnPNgAEslG449BUbkSlM6SL XlvuVjG2NmQUDcpYfiJfC2 e4J8Bm4Ft6OpkmrvU0SjuALsMoV sIbjfBLr9K8PfTuqxzOH+PC90YW PtQH03NLp6UKX7gWwyDQxc UUPiR2TkyQ0eIpVkMFEnIPXbYwo +PHRhYmxlIHdpZHRoPScxMDAlJy BpqYjwPT0rUc5zEEOaQHNo oIlulJMeSpTaj2kvGZIhZXodXF4 ugGioI5YwzON8FJYgm5n7Be56Y2 7dA5MyvXQ+VIAzmOU9pOB1 sK8jZgAmYuX4OWwhR599SaYdiBL cJmvgw6iao6slkMj0KqE8GUIlbp VqoEcpBLS4p1SuPp09Z36e IHdpZHRoPSIxNSUiIHZhbGlnbj0 ceR1fGk5+CWCeiBV7zWO5sR6rOk IaFtW8CUczA255XoTyxZHu Qdhgq6dlx8ndgWf0JiObJKBdkcS dmHtdUVL0q0PfLu93U3DscGdab5 OtIoj2dc03aTIap4T3aCQ3 G6UcUILsdoxgaOZtxLioUT2wYQA mrkbdCLMrxP0dXBLuQ8f7FlMwYp N9CPkdX3UrawL2SPHpiVTu VYSncONJnX7faredy7xipiqyZtL xXADsYBd4ZWh6VXOkgRvwDeOuJL B6TjF9MWG7rOKuyK5igEcr jrtwqW7eEcz+MDR6bNJcuOXOVF3 lOjwvdGQ+YLXjNDM6mTsmYMzvEF WrhS7tDLWaW6b0KfZkUpO2 BTvzP4IrasJ9NDIqyZVdDVLhkGC FaS4zibzid8fzbulgNnVhQMDjAI p1DBg1COOtmVxbIuYrFFZ5 EsN3HXV8iEMipU6qyLgsbzyizZ2 wOyc+OnvqoWllKMN6NMx3I0KmCm h3IXBdzBguUM9epFJcMLsi Ib1sfVcnmAlkQA6wLGPeluyir95 4UwYun1veWWPbvKEoYCjdVXC5U9 0ix6L4QSPrJZCpOJP2mZX1 gZ9umQhokmkmcEHsnXoiemAigXd rIRowJBihH564RQVayLdnPlJvBN z2Q6IpUrn8BSCstRmbIW2u mMGiVFawOj0zaAggkOksCF3kOED iydvss144NtCrk6vaSSLxzNSzBJ llZZQ6L46py5H5ZGOuMTXt JHE1qIF5vZ0slTcgynitvVCfqJd iclYmfGkwJTfxXQowD196JPIvhG vlRqOipPl6N1KzAir6BUYv dFxeGD4isCAgFUlzDb2fyVvcqQi lBC3mUCDsjpyyw663NxNpr7uiSB OcuSYuBLjrFDH2O62bq9L6 TSNrNIEhYQA0dBN3bM3bfElgkcb gbGVmdDsgdmVydGljYWwtYWxpZ2 46IHRvcDsnPlBhdGllbnQg IYomPZn9K3CcWwiaiKW+EL75CDU yQY95xYAtcLPhk9zkeFa6MnSrZE CsBFO4jPcyBJdsp4UrRCWr M44qbHWnt5N7SJFcpSujiUTzDrG skWR7mA9aGQpyewnzh7oybygiIp qzd4okdg81hJ34X18yPTvo OGIyFRSlHNRdGFNfbDyayf7vlQ8 wIi8+WLSinRJ6iBJ6xZ3wSLUqGb S8HFylA884NcLfsCToPhkv m9iww0fsmAt0NfK8GOUvarPjcUi fAMS0l8ScFk28O88tXBbmBORcDY GoUBBgURIndSqlxz5cyV7c Ii8+QCHylKU8aEO9aU2cEuDvMtS 7JSzzO106AmJnvIAsQcxuJ09iA7 JvdXA+JDHcXsc1YEKnkXyq DO8ynBCgMEauFz7iGQV7IbXrSsG bOLoxO4WrXLJjmuokertjuPI1QA KgQIOplZ48Rs5jtOrlJKDu sZVFqK0wltkwb0zilbigMjFvJCW uLPf3WNx9INCypVofTrZrQDU2Rn V0ZJD9oFZqxC7xtEoefpcl vV4eL2NhGCWcxamqKo91jO7sHuG bSpR6BLjlTxb+QcWDGynaD9OJFG oCLaNCXQM9V7WmVcl0DQTh cDaxOE7ovDYcJAzcRd7msVtksQp cZS1gBWRiwcxcNBKtwZ1yHLGtiS XfvMdwIX7hDQRctkvvn384 EgRkNDC5RYKeaHLiR9JjvX9gGaC zWBReRZLcM9TkcGFaNQeyY961US ufUiN1EUJezxHrP5BqSHLw jYkgGaA9a5K3Hc1nLI1lIi1eQBm 4RJ19AX79gYMey0F6hKI5V7OpLQ SucrrpxskxmOJ9RSNcEXGu yR00rKEgJItfBw2wb4S2c709DCT gMENohN69Th6dnGbjISEolQNTwA 2qqoeau3adqtonHqStTGUe JSa4BCg5JHEtxQlhEwWtZBR5PfP 2WFA8jAUkjY8nhVskgxadiI3lOb c+DuSoHYWbptE9J8HeXks1 VIIshXmxHK5jfKQvPIkbOc2cnTs zlJizOS0yIMTvjnrnBTZjgF5zAV TizETqdMmvCN9qOSImkkbs h681WfBdLIQ8EIFbkRGoL8OktQ3 cRmUbLUFrZLHkB9WcvFBlIRrbS2 09YQsfNgS4EBPeahGiI3Mo GKHtfBdoFiP5d5W7Nt3RYO0UWUG 8N2SrSkl1DLTzbVchXC9mfITmTY vdOs4anYuxoCdrKZ9hFTUc pgoyNIMuuW8hOVMuaANpzYfqGK8 lRHXvrrazk540QkFuBDF2YBOxjX GhF5WvzL0jPrAsWEPkNZJh A6EqjRQyFXelY036RYsyShC7MZQ kekRsU6EgOIUjwCxgAcQ1h9I8Jq 5PUDwvdGQ+YM78sm96Q9Me BqxpVck9YFKfIJD0sZI2bY8oAGF lOAjbo7D5nRF9W8IiqnVoip8zb0 mnEYUkWWkeW91hhDHoz1N9 XTGxoWQ5NSQxjMvlHxZmlZ99Lhx +ZJJfiUkiy9MuEdytc0pwl4ptiA i8PlOtLLOrhxUnyXxrNDH6 a8GqGw88P80eGDygDMBrZEIoHPD vXNJmiTcktk5wwI4tXd3+PGNvbC K5bGL9cV6sLvDfOnQ3DGpb B977PgCvoDFvTfmnz9alb8ywmRx 0PxYrJSHgavUfhZgyUXE0l2HfTg 04I9CuwXjjf7WeOhe4wf19 fTIce4X8lWK3B3HeBQNqygfhcCB qdHmoGD5gVDOsifgkZYQkjN4uPE TzU8j6ZqJtLfI8FAsnR4Ob hnK3YVLddVDxQALsrSZNlK9hbdx vz0yoqgfzJiDuDLWmLKf5PLf5WF GavGrzIpSpTFL5NoR1ZJB8 jKZhnZ1etGfecylmlP5rBda+UGh 1l8fyyDOiYO3bbOW5FE66MU83kN Bzk8L1zEZ6U4IcOGCqyrsq twcqpMU0PAKoDHOirR65Ks3uqIe kXf0dPYIdMKN2QEDwnOIsK7RjjJ 2tLhWbAINlINOtR0MbpNOv FLefF497GZsoFtB3QJHvkuTwZ1P vHWBhzBeuMuB9q6G0Sv2DNH07NH 55JC65gKGwd1V4bMD6C6Ng NXFoshtrarwhaRY2SFWuBLHhpN4 4Cl7baMpuPv8jQNDzHHF5UIYgvT SxC8UanT1gZwDjYDPcRZFk Z7PtaJChPCenS616ACjwSjC2MJN qhlHlH1LcRHNnhAalVcS9b8B9At 0CSt60KI91KL21sUHvb3Z3 xZW4P9RfQRQyapltwtjelYV2PSJ cDVScbH86Nz5itPunLr9lCZCmBG V7ZHBwzIXmW3DvyH4bGmXl DETjTBMfS7YipRStNKwnC713JTa aEqB1BWUifsKgD3QgHXOsrGzaDf N2m2N4Kk0RCXddugi4L2Ba PjwvdHI+QU38LTTwZO65aAHlaWM is5miqYb6YcJcGNUjDKC3vRqlDF sxc6FzOGFgV30edTYxk9F3 IGN (more content not included)... [facility] Coding Summaryon 01-09-2024 Coding Summary HTMLBase 64 AgfbyxruBSm6tIa+PGhlYWQ+PE1 GSMMwL63pjMSuwU8hM6MVMBkRPd edJHKLESnOOoAuetDiGI5soMFaF XJu IC8+IW9yFEFpEyayzGMxs7A6dFT 1V50ott9aXTllbLC3BJWpAlYioj eib5hphMx5CZyqNpnpYqLf JDDxpE62MGY2rX14Ro26zQExuHG ls2pebWv2QuZdWQAoORB4tXpdRS ugp7AqZNSxG61grYWmy3L5 SFGnpFspvXQxMjDhbLM0eJ4xSYp grbuqk5fmnlkjPnu2sr42tAQyj6 N9yVR8C6IgpqF9LWWiiMGy SuqmjGXCrI7wruxza9qvsmwgBlU lASGzBBi1KKr9TYXbxVbfUqAwRE 43LEZ9JQKhdlSpU2ThKCYs uPkdGeZ4v0Y3Ar1YC8FFEmvxW4T NTUFSWTwvdGQ+CM57et39S0TfQy qxEsn8YVSbEMR8wZU9qH7t ZTSmYEays9R5aDV3P6MhruFvpy0 pe6nrBEIaSWklY99yoFBfy6T1KA YlvEM8WTYfiIbxNjPdzU35 Oyc+NSHxbCcnn4DsFofpz6dif3o qoGk6DakpYURcpqMjwRadBBQ0u0 IbNd1tIAIikDP3kXQ9jK8f HkPfNoC1QVgnU177McXvoCMlYbb bB29qB1SfpQB+VFKjIpt3ZYUyuM pnIG0aY9ThXQPsceeyhEVq tHspFL4nHAQmpdqjGKDlxT9mQSG nH1u3EwVvAcE7OChzA2RdBTLzhy nqVo09iZ1aCoXaJyN6KMqg W5DmmqS9KPSozKPrULekURQ1I92 xu0B1TUIjZVBzDKB4pCH6yP6jjP lnbjogbGVmdDsgdmVydGlj UFksSXyqT935IQHebXzrJwXyVAa uZyBEYXRlOiAgMDQvMTYvMjAyND wvdGQ+OVAxKUI9uEtjGSBh zLFfBTqlRr0ufJqruIaxOT8sSUC zhphdEUCdfN0cQUGijEEtkRrfNI 5iDTTxmzjsf845RaArQTH9 NVIjbAMyQ7JudF8kObCqGJZsAKT mW6PbkOClDWlrR288VRqqMpY1FK MwtdIiF6VzAFLrqQvcWrZ5 a7B8Uo2Lf2QfsqsgX5EcaTXcAfH kBsylQWk9E3NpDndlkXF+PC90YW WzYW16HAt0GYA8sOarECwn RXFmX2HvhS4vMvTsFWNjAQTnMti +PHRhYmxlIHdpZHRoPScxMDAlJy UdaDfjSM0dWy2nSIRrYMYg uTzkbARiMxNmi1plKOVgOPxdWG6 kcImaQ3YjqUM3OIIuh8s8Ig35F1 5eI7NxjGX+XHVadAY2lTL8 lM4uVdDjYtM1BRjaY273HaEygPK jWwole4yng8rfmCy7BzJ9MBRlwq ZthZavZWM7t2DcFe66F02a IHdpZHRoPSIxNSUiIHZhbGlnbj0 ifM8nDh0+AMPirHS2pQR9jU6nRm XjKyZ9TIfcH520CyTltGOx Pmkbb6htg0xutWr9EqUqEXHilqY mlCshYID0v8HsJl40W7EgwNkcr1 NhXyd7sx05jQHaw8S8rNV5 H8JvFWHltgllxRHygXkcGT7xLWL hsfxrVRNztM8cKJQfN3l0XtByTp O3DScdD3GdshB4MQAwtVKy SYKqcMATiZ9ozlnmo2akjridZyO bYRZlRTq5XGm3ICCbyMngTtQtMP U4IyN3UQB1fQBgrB9xqWhg cxrzdB8pIih+HSS5rCItzEIBDY3 lOjwvdGQ+HBZxZUN0qGavKOnoVF UqtD8bCFHzR3d4SxUzUlS8 CMspR8MdpqI5VYIbpQXxGINjpLI AwT0mhgxfr0pucvdbJiOwMTIeER n9ZEk1RQVxeJfxTjChQAT1 JhA5UET3eNEqwZ0nwDqhbyopqQ7 wOyc+QlyrbTooYVE8AHh1V9QyMa l6ERTajXdoER7naVUiFMuq Nf0cgPvnmTguKI8rWHWvabbzn34 9WrKcw7kqNCZbfVOiQQyoAQE8Y3 7bg7F4YVFjJHMdSTX4qGD4 hL2prYvwsyktuELkyXevoiVjzUn vJUikZTgfJ645UDYziFmnMaUmPQ w8I9UyGur5SUJieWceBB2e fCJyJUyvOa3daOqlgKxwXR5sEQA hodotg074ApAnm8qhYRYjsFVeHM xzOHX2Q53ca6U3LMRwVCFs DEQ7sRE7mX5muUzzlflzbOMxlOy ikjQktWihYPyaTZeqV759KXQjgQ neXqItqWr7N4ZvNfm5MLNx nTtnKK1fySChGTgmHk3taPhcdGm aHZ0mFFFzoukdd860HpBqz7nzYJ ZqwSEeMOvlOBO6F73lc3K2 HGPvXQJvLVN1oMS9gB4xrQfpach gbGVmdDsgdmVydGljYWwtYWxpZ2 46IHRvcDsnPlBhdGllbnQg KTcqAZs9R5PhVeppuVE+LA80PWY rNL64bUUhfCYdg2bmfNq0LzSvOY UyJBX5qVddTCpki6DpBSVr G60fgVRqi7Q9DOEizPvvuPXlHpS qiMU2eN0oOXtysfuqj3dcwvsxDc qfr1eugl12jW58L08kYZwk ETCrSGGpSGSlGPEbvJvjka9giR3 wIi8+HLJfpUQ4bMG1lF0vVREmXj V6DEuoU538PrBbnIVnFuqo h2ijf5lemRe2QzD8TZVyxrTtgZy hVDL8a6ZtUq88Q96cJQraNFXwLA StYWUbKECueWxzot7biU0q Ii8+PALhyJB4pVK7eF7xWeWrArY 4VEpkY989UbTifGCiCxynI81vN5 JvdXA+OHEoTvm8HLVesIjw DS4xxZWkPOsySs7jNOX7YsZuMoL nEJxkF1VwNEOepouowisajPS6WU FaUIBinI40Oy5psUlpMZPi vHJUxF0sglynk2zqqdpyEkMeAAN aNFb4DYh2FNRieDtiBrVdLDX9Eq R1HWU6aXCexQ5deKxegtxy cW6nK9AnCJXdsgmlRc56uY3tOmG qLtE9WQpgDni+VyRVOualB5DSXP wBPqIUGWO5H4EePtt4WFRg wCrxDH5lbQNyQMdvDl7gxRpueMk fFZ4bJCFvmangKZTcmY2pYOWcoF DtiKwdHL9dCTHsbupbd525 BcElHYW7BTKpkYZdK5PplZ4iRoI aAEBfTWVvW6TykWHtRZcaK078KQ brYgB5NWTgwpQaQ8IlJVTn oLpxAcR7m2F3Gh2dMC6nTw4pLCx 8OR76PR52cWEkz2W6mZY3N7YuXH FjqrwlceiwzAR2WPDeSNKq rR02tEFbHIusBv4qx5K4i160XSJ aWLIcyR78Iu3nnPunGCTmfKMEsG 5zxipxc0xemercJzTyLSNq EAp2ADf8OSEdhRsjBvHiFVK1KeW 8YIL1tOTagM3ciPktxpubaO1gLv c+FkZuKOWveoN9C6AtMkn9 HEJtkFanPD2avHMnVFhaDz5wrUn foMuuCO9xSLDvtkfyGFZdmO8nKB HfoPSglUjrKU3iBUNvxioy w568ShPsXYF0HLYbtVMaZ1KuoU8 pSuOlWTZoAASlK7CvbTPlDNglW3 21PGxaYyB0TTYsiaOlD8Dh HWJycJnfFeX5r7U3Nq8NRW6ICOR 9Q5KwTza6RWQrdYsqDR2teMGnTU ouOn0kvInleMyoDV5uBVKl spcrUHBiwL1qVCWldOLdlTwlQP2 hQYPlbboza726DrXuDQH8ZYQspB SfJ1TuvX4iRiNrCNUkCXHx T6FqnGDkFSwmT565XAsrJtK7ADX sefFnX7EjZVPfaKpdPlL0n3P6Xc 5PUDwvdGQ+CZ89ce95L6Ez GmrgKqs9OVXbSCO5pGI1kR2dGJR nNVvia6L2eLK8L2PoesPxys6zw3 zhLGUnXEokL38pdOJql6U8 AEHcqSJ1FOZqcRlmTvQegM08Tal +FKFkxEwly1MeQxfvm1ini1djoY x2BdRhXPWmsxKovEisORF2 g9JdBl08G68lTSorWDNeHDVnAZL vVKOohLhvqq7yjK1tWs2+PGNvbC B9uGR8dZ1zIzYdMnM3IJww F877ExUayWWnLumtz8tmf1wbuXf 3TsIiLCJcrrLfnQxmMGY2t3LnXy 43X6XroTame2FaPzp1di20 cJJhq0N2iNW5S7WbJNItwzqooEY myVhzUZ0aAZSvrsklNWSnhS1eFH CnL3v9QbIwMxB2JUnyV3Ay pfT8ZDAwxKTkQHThcKWRzW4phcq jf3bxfisaZyFeDNFqYQb9XRd7CH ZbhLixBkTrIYW5CkA1ATC0 tOSwdD9ynXkcvhlbmL9jInt+UGh 4y4iktFAuHU8jgKM2BA07EZ51gB Lpe1U5yZP8T7VpWKKekxsr xlvteHU8ZEFkGSTmuI84Ai5lnCd wQu9sXJOpNYY9HCPyhKAzV1OhzF 7bXwQcGVSrRNPvJ7IjdHMl ZJapI252PCrbJaB5BEOyzqJdG0T eZNPbxPuoUwB2q4F6Iw5SGZ88MU 53JW77cRHlx9O0eEC5S6Ev TJWlcxeccvkqoNR5NKHcQQPwrW4 9Ff0woNntSh8cGUWxILG7PFRdwR YaQ0LrgG9fKnVtJOQaPJWt E0GckVCsRRxlQ316DRvbLcO3WOR eenOiO0BgZRHbgGfmPtY9y4C1Dk 3XKl78VC73TS17tIWaw1I7 cQX0E8RjOEXqcqqmowyibQG1NZE yDXWotQ54Lz6dzIhoQy3eVIPnRY O6MWDskJJoT9XunM4eJmBl TKRjYGCzL6AhyCVsFBigJ725DQu uFuU6NRSdukCpL7YyICFihOheIx S2j6V8Cc1MUZablvm0H5Iq PjwvdHI+OW86LAYpWP91pLLxxZC jf3bfdDj2IpThCCObCMB7cLziQW krj9GbHIIlL41ehBCxb3J4 IGN (more content not included)... [facility] XR Hip Complete Right w/ Pel vison [...] MD 01/08/24 3:46 pm Technologist: DARLEEN MALONE [facility] XR Sacrum/Coccyx Minimum 2 V iewson 01-05-2024 [...] MD 01/08/24 3:46 pm Technologist: DARLEEN MALONE [facility] XR Spine Lumbosacral Complet e w/ Bendingon [...] MD 01/08/24 3:46 pm Technologist: DARLEEN MALONE [facility] Telemedicine 08-23-2023 Telemedicine [id number] Lior Green in 1990 F Date Provider Department Center 08/23/2023 3378-[facility] TELEMEDICINE [facility] No family history on file Level of Service:[id number] MD OFFICE/OUTPATIENT ESTABLISHED LOW MDM 20-29 MIN [facility] 37on 07-11-2023 37 Follow-up with famil y medicine as directed. [facility] Telemedicineon 07-11-2023 Telemedicine [id number] Lior Green in 1990 F Date Provider Department Center 07/11/2023 3378-[facility] TELEMEDICINE [facility] TELE [facility] No family history on file Level of Service:[id number] MD OFFICE/OUTPATIENT ESTABLISHED [facility] 10-19 MIN Reason for Visit and Comments: Headache [52] Normal [facility] HEPATITIS B SURFACE ANTIBODY QUANTon 09-01-2022 HEPATITIS B VIRUS SURFACE AB (MIU/ML) IN SERUM 3.83 mIU/mL Normal [facility] Comment on above: Result Comment: INTE RPRETATION: NONREACTIVE<8.00 mIU/mL INDETERMINATE8.00 - 12.00 mIU/mL REACTIVE>12 mIU/mL Performed By: #### L [id number] #### [facility] (BEAKER) [address] [place] [address] T-Spoton 10-18-2021 T-Spot. TB Test Normal [facility] Comment on above: Result Comment: [facility] [employer] [address] [place] [address] (NOTE) T-SPOT.TB Test Results --------- T-SPOT TB [...] R UBI, FANG, JAGDEEP, VZI, TSPOT #### [address] [id number] Experience Design Director: Isreal Astorga MD Measles (Rubeola) Imon 10-15 Measles (Rubeola) Im 6.05 Normal >1.09 [facility] Comment on above: Result Comment: Interpretation: IMMUNE Reference Range: <0.91 Not Immune 0.91-1.09 Equivocal >1.09 Immune Performed By: #### R UBI, FANG, JAGDEEP, VZI, TSPOT #### [place] [id number] Experience Design Director: Isreal Astorga MD Mumps,Immun,Abon 10-15-2021 Mumps,Immun,Ab 5.42 Normal >1.09 [facility] Comment on above: Result Comment: Interpretation: IMMUNE Reference Range: <0.91 Not Immune 0.91-1.09 Equivocal >1.09 Immune Performed By: #### R UBI, FANG, JAGDEEP, VZI, TSPOT #### [place] [id number] Experience Design Director: Isreal Astorga MD VZ Immunityon 10-15-2021 VZ Immunity 2.55 Normal >1.09 [facility] Comment on above: Result Comment: Interpretation: IMMUNE Reference Range: <0.91 Not Immune 0.91-1.09 Equivocal >1.09 Immune Performed By: #### R UBI, FANG, JAGDEEP, VZI, TSPOT #### [place] [id number] Experience Design Director: Isreal Astorga MD Rubella Ab, IgGon 10-14-2021 Rubella Ab, IgG 279.3 IU/mL Normal [facility] Comment on above: Result Comment: REFERENCE RANGE: <5.0 NON-REACTIVE (non-immune) 5.0 TO 9.9 EQUIVOCAL >=10.0 REACTIVE (immune) Performed By: #### R UBI, FANG, JAGDEEP, VZI, TSPOT #### [address] [place] [address] Experience Design Director: Isreal Astorga MD Basic Metabolic Panelon Anion gap [Moles/Vol] 11 mmol/L 9 - 17 mmol/L [place] Bun/Cre Ratio NOT REPORTED [place] Calcium [Mass/Vol] 8.7 mg/dL 8.6 - 10. 4 mg/dL [place] Chloride [Moles/Vol] 107 mmol/L 98 - 10 7 mmol/L [place] CO2 [Moles/Vol] 23 mmol/L 20 - 31 mmol/L [place] Creatinine [Mass/Vol] 0.59 mg/dL 0.5 - 0.9 mg/dL [place] GFR >60 >60 mL/min [place] GFR Non- >60 >60 mL/min [place] GFR/1.73 sq M predicted among non-blacks MDRD (S/P/Bld) [Vol rate/Area] [place] Comment on above: Average GFR for 30-3 9 years old: 107 mL/min/1.73sq m Chronic Kidney Disease: <60 mL/min/1.73sq m Kidney failure: <15 mL/min/1.73sq m eGFR calculated using average adult body mass. Additional eGFR calculator available at: http://www.zkipster/multiple_crcl_2012.htm GFR/1.73 sq M predicted among non-blacks MDRD (S/P/Bld) [Vol rate/Area] NOT REPORTED [place] Glucose [Mass/Vol] 91 mg/dL 70 - 99 mg/dL [place] Potassium [Moles/Vol] 4.1 mmol/L 3.7 - 5.3 mmol/L [place] Sodium [Moles/Vol] 141 mmol/L 135 - 144 mmol/L [place] Urea nitrogen [Mass/Vol] 10 mg/dL 6 - 20 mg/dL [place] CBC Auto Differentialon Basophils (Bld) [#/Vol] 0.03 10*3/uL [place] Basophils/100 WBC (Bld) 1 % 0 - 2 % [place] Differential Type NOT REPORTED [place] Eosinophils (Bld) [#/Vol] 0.15 10*3/uL [place] Eosinophils/100 WBC (Bld) 3 % 1 - 4 % [place] Erythrocyte distribution width (RBC) [Ratio] 12.4 % 11.8 - 14.4 % [place] Hematocrit (Bld) [Volume fraction] 41.3 % 36.3 - 47.1 % [place] Hemoglobin (Bld) [Mass/Vol] 13.3 g/dL 11.9 - 15.1 g/dL [place] Immature granulocytes (Bld) [#/Vol] 10*3/uL [place] Immature granulocytes (Bld) [#/Vol] 0 % 0 [place] Lymphocytes (Bld) [#/Vol] 1.91 10*3/uL [place] Lymphocytes/100 WBC (Bld) 39 % 24 - 43 % [place] MCH (RBC) [Entitic mass] 29.7 pg 25.2 - 33.5 pg [place] MCHC (RBC) [Mass/Vol] 32.2 g/dL 28.4 - 34.8 g/dL [place] MCV (RBC) [Entitic vol] 92.2 fL 82.6 - 102.9 fL [place] Monocytes (Bld) [#/Vol] 0.46 10*3/uL [place] Monocytes/100 WBC (Bld) 10 % 3 - 12 % [place] Platelet mean volume (Bld) [Entitic vol] 10.7 fL 8.1 - 13.5 fL [place] Platelets (Bld) [#/Vol] NOT REPORTED [place] Platelets (Bld) [#/Vol] 246 10*3/uL [place] RBC (Bld) [#/Vol] 4.48 10*6/uL 3.95 - 5.11 m/uL [place] RBC morphology finding Nom (Bld) NOT REPORTED [place] Segmented neutrophils/100 WBC (Bld) 47 % 36 - 65 % [place] Segs Absolute 2.29 [place] WBC (Bld) [#/Vol] 0.0 10*3/uL 0.0 per 100 WBC [place] WBC (Bld) [#/Vol] 4.9 10*3/uL [place] WBC Morphology NOT REPORTED [place] Iron And TIBCon 05-31-2019 Iron [Mass/Vol] 92 ug/dL 37 - 145 ug/dL [place] Iron Saturation 38 % 20 - 55 % [place] TIBC 243 ug/dL Low 250 - 450 ug/dL [place] UIBC 151 ug/dL 112 - 347 ug/dL [place] Otheron 05-31-2019 Interpretation and review of laboratory results Abnormal [place] Vitamin D 25 Hydroxyon 05-31 Vit D, 25-Hydroxy 20.9 ng/mL Low 30 - 100 ng/mL [place] Comment on above: Reference Range: Vitamin D status Range Deficiency <20 ng/mL Mild Deficiency 20-30 ng/mL Sufficiency 30-100 ng/mL Toxicity >100 ng/mL Vital Signs Date Time Vital Sign Value Performing Clinician Facility 10-01-2024 10:38-0500 Body mass index (BMI) [Ratio] 39.19 kg/m2 [facility] Work Phone: [facility] 10-01-2024 10:38-0500 Body weight 110.13 kg [employer] Work Phone: [facility] 10-01-2024 10:38-0500 Diastolic blood pressure 68 mm[Hg] [facility] Work Phone: [facility] 10-01-2024 10:38-0500 Systolic blood pressure 108 mm[Hg] [employer] Work Phone: [facility] 09-04-2024 10:33-0500 Body mass index (BMI) [Ratio] 37.92 kg/m2 Christen Reid MD Work Phone: [facility] 09-04-2024 10:33-0500 Body weight 109.86 kg Christen Reid MD Work Phone: [facility] 09-04-2024 10:33-0500 Diastolic blood pressure 69 mm[Hg] Christen Reid MD Work Phone: [facility] 09-04-2024 10:33-0500 Heart rate 84 /min Christen Reid MD Work Phone: [facility] 09-04-2024 10:33-0500 Systolic blood pressure 105 mm[Hg] Christen Reid MD Work Phone: [facility] 08-12-2024 14:16-0500 Body mass index (BMI) [Ratio] 38.58 kg/m2 Genevieve SOLITARIO Work Phone: [facility] 08-12-2024 14:16-0500 Body weight 108.41 kg Genevieve SOLITARIO Work Phone: [facility] 08-12-2024 14:16-0500 Diastolic blood pressure 72 mm[Hg] Genevieve SOLITARIO Work Phone: [facility] 08-12-2024 14:16-0500 Systolic blood pressure 120 mm[Hg] Genevieve SOLITARIO Work Phone: [facility] 07-16-2024 11:31-0400 Body mass index (BMI) [Ratio] 38.54 kg/m2 Catrachito Attila DO Work Phone: [facility] 07-16-2024 11:31-0400 Body weight 108.32 kg Catrachito Attila DO Work Phone: [facility] 07-16-2024 11:31-0400 Diastolic blood pressure 64 mm[Hg] Catrachito Attila DO Work Phone: [facility] 07-16-2024 11:31-0400 Systolic blood pressure 110 mm[Hg] Catrachito Attila DO Work Phone: [facility] 07-05-2024 11:45-0400 Body height 170.2 cm Mishel Segovia MD Work Phone: [facility] 07-05-2024 11:45-0400 Body mass index (BMI) [Ratio] 36.83 kg/m2 Mishel Segovia MD Work Phone: [facility] 07-05-2024 11:45-0400 Body weight 106.69 kg Mishel Segovia MD Work Phone: [facility] 07-05-2024 11:45-0400 Diastolic blood pressure 69 mm[Hg] Mishel Segovia MD Work Phone: [facility] 07-05-2024 11:45-0400 Heart rate 86 /min Mishel Segovia MD Work Phone: [facility] 07-05-2024 11:45-0400 Systolic blood pressure 128 mm[Hg] Mishel Segovia MD Work Phone: [facility] 06-17-2024 11:46-0400 Body mass index (BMI) [Ratio] 37.9 kg/m2 Catrachito Attila DO Work Phone: [facility] 06-17-2024 11:46-0400 Body weight 106.5 kg Catrachito Attila DO Work Phone: [facility] 06-17-2024 11:46-0400 Diastolic blood pressure 78 mm[Hg] Catrachito Attila DO Work Phone: [facility] 06-17-2024 11:46-0400 Systolic blood pressure 116 mm[Hg] Catrachito Attila DO Work Phone: [facility] 05-23-2024 15:41-0400 Body mass index (BMI) [Ratio] 41.48 kg/m2 Sandrita Bowers CNM Work Phone: [facility] 05-23-2024 15:41-0400 Body weight 116.57 kg Sandrita Bowers CNM Work Phone: [facility] 04-29-2024 13:25-0400 Diastolic blood pressure 82 mm[Hg] [facility] 04-29-2024 13:25-0400 Heart rate 80 /min [facility] 04-29-2024 13:25-0400 Respiratory rate 16 /min [facility] 04-29-2024 13:25-0400 SaO2% (BldA) [Mass fraction] 99 % [facility] 04-29-2024 13:25-0400 Systolic blood pressure 145 mm[Hg] [facility] 04-29-2024 10:53-0400 Body temperature 97.4 [degF] [facility] 04-29-2024 10:28-0400 Inhaled oxygen flow rate 2 L/min [facility] 04-29-2024 06:46-0400 Body height 170.18 cm [facility] 04-29-2024 06:46-0400 Body mass index (BMI) [Ratio] 37.6 kg/m2 [facility] 04-29-2024 06:46-0400 Body weight 109 kg [facility] 04-19-2024 09:11-0400 Body height 172.72 cm [facility] 04-19-2024 09:11-0400 Body mass index (BMI) [Ratio] 35.9 kg/m2 [facility] 04-19-2024 09:11-0400 Body weight 107 kg [facility] 02-15-2024 11:55-0400 Body height 172.72 cm [facility] 02-15-2024 11:55-0400 Body mass index (BMI) [Ratio] 36.1 kg/m2 [facility] 02-15-2024 11:55-0400 Body weight 107.95 kg [facility] Encounters Encounter Date Encounter Type Care Provider Facility Start: 10-15-2024 End: 10-15-2024 ambulatory CATRACHITO R [facility] Start: 10-01-2024 End: 10-01-2024 Bamboo flowsheet Catrachito Attila DO Work Phone: [facility] Start: 10-01-2024 End: 10-01-2024 Bamboo flowsheet Catrachito Attila DO Work Phone: [facility] Start: 10-01-2024 End: 10-01-2024 flow sheet Catrachito Attila DO Work Phone: [facility] Comment on above: Second trimester pre gnancy; 25 weeks gestation of ; with normal glucose tolerance test (GTT); Diabetes mellitus screening; Retained intrauterine device (IUD) during in second trimester Start: 10-01-2024 End: 10-01-2024 ambulatory CATRACHITOKwaku MUNROEO Not Available Start: 09-04-2024 End: 09-04-2024 Office outpatient visit 25 minutes Lexi Robertson MD Work Phone: [facility] Comment on above: 21 weeks gestation o f (Primary Dx); Retained intrauterine device (IUD) during in second trimester; History of gastric bypass; Obesity affecting in second trimester, unspecified obesity type; with history of section, antepartum; Multigravida of advanced maternal age in second trimester Start: 09-04-2024 End: 09-04-2024 ambulatory [facility] Comment on above: 21 weeks gestation o f (Primary Dx); Retained intrauterine device (IUD) during in second trimester; History of gastric bypass; Multigravida of advanced maternal age in second trimester Start: 08-12-2024 End: 08-12-2024 Bamboo flowsheet Genevieve SOLITARIO Work Phone: [facility] Start: 08-12-2024 End: 08-14-2024 Clinisync Result Encounter Genevieve SOLITARIO Work Phone: [facility] Unsolicited Start: 08-12-2024 End: 08-14-2024 Clinisync Result Encounter Genevieve SOLITARIO Work Phone: [facility] External Department Unsolicited Start: 08-12-2024 End: 08-12-2024 flow sheet Genevieve SOLITARIO Work Phone: [facility] Comment on above: Exposure to STD; Need for maternal serum alpha-protein (MSAFP) screening; Screening, , for anatomic survey; Second trimester ; 18 weeks gestation of Start: 08-12-2024 End: 08-12-2024 ambulatory GENEVIEVE DONOVAN Not Available Start: 07-17-2024 End: 07-17-2024 ambulatory NON STAFF [facility] Work Phone: Start: 07-17-2024 End: 07-17-2024 Patient encounter procedure [facility] Work Phone: Start: 07-16-2024 End: 07-16-2024 Bamboo flowsheet Catrachito Attila DO Work Phone: [facility] Start: 07-16-2024 End: 07-16-2024 Bamboo flowsheet Catrachito Attila DO Work Phone: [facility] Start: 07-16-2024 End: 07-16-2024 ambulatory CATRACHITO ATTILA Not Available Start: 07-16-2024 End: 07-16-2024 flow sheet Catrachito Attila DO Work Phone: [facility] Comment on above: 14 weeks gestation o f ; Second trimester Start: 07-10-2024 End: 07-10-[address] Start: 07-08-2024 End: 07-08-2024 Orders Only Not In System Ref Prov [facility] Start: 07-05-2024 End: 07-05-2024 Office outpatient visit 40 minutes Mishel Segovia MD Work Phone: [facility] Comment on above: Retained intrauterin e device (IUD) during in second trimester (Primary Dx); Obesity affecting in second trimester, unspecified obesity type; BMI 36.0-36.9,adult; Multigravida of advanced maternal age in second trimester; Anxiety during ; Depression affecting ; History of 2 sections; History of knee replacement, unspecified laterality; Bariatric surgery status complicating , second trimester; Family history of clubfoot; 12 weeks gestation of Start: 07-05-2024 End: 07-05-2024 Orders Only Ileana Weaver RN [facility] Comment on above: Retained intrauterin e device (IUD) during in second trimester (Primary Dx); BMI 36.0-36.9,adult; Multigravida of advanced maternal age in second trimester Start: 06-21-2024 End: 06-21-2024 Clinisync Result Encounter Catrachito Attila DO Work Phone: [facility] Unsolicited Start: 06-21-2024 End: 06-21-2024 Clinisync Result Encounter Catrachito Attila DO Work Phone: [facility] Unsolicited Start: 06-17-2024 End: 06-17-2024 Bamboo flowsheet Catrachito Attila DO Work Phone: [facility] Start: 06-17-2024 End: 06-17-2024 Bamboo flowsheet Catrachito Attila DO Work Phone: [facility] Start: 06-17-2024 End: 06-17-2024 Clinisync Result Encounter Catrachito Attila DO Work Phone: [facility] Unsolicited Start: 06-17-2024 End: 06-17-2024 flow sheet Catrachito Attila DO Work Phone: [facility] Comment on above: Missed menses; Encounter for supervision of normal first in first trimester; , unspecified gestational age; Encounter for screening for cervical length; complicated by intrauterine device (IUD); induced hypertension, antepartum; Multigravida of advanced maternal age in first trimester Start: 06-17-2024 End: 06-17-2024 ambulatory CATRACHITO ATTILA Not Available Start: 06-11-2024 End: 06-11-2024 ambulatory [facility] Work Phone: Start: 06-11-2024 End: 06-11-2024 Patient encounter procedure MD Santa Estrada II Work Phone: [facility] Work Phone: Start: 05-31-2024 End: 05-31-2024 ambulatory [facility] Start: 05-23-2024 End: 05-23-2024 ambulatory SANDRITA L FLORO Not Available Start: 05-23-2024 End: 05-23-2024 Office outpatient visit 15 minutes Sandrita L Floro CNM Work Phone: [facility] Comment on above: GA: [id number] Start: 05-23-2024 End: 05-23-2024 ambulatory SANDRITA L FLORO Not Available Start: 05-23-2024 End: 05-23-2024 Bamboo flowsheet Sandrita L Floro CNM Work Phone: [facility] Start: 05-23-2024 End: 05-23-2024 Bamboo flowsheet Sandrita L Floro CNM Work Phone: [facility] Start: 05-22-2024 End: 05-22-2024 Telephone encounter Sandriat L Floro CNM Work Phone: [facility] Start: 05-15-2024 End: 05-15-2024 ambulatory NON STAFF [facility] Work Phone: Start: 05-15-2024 End: 05-15-2024 Patient encounter procedure [facility] Work Phone: Start: 04-29-2024 Non-patient / Non-visit [facility] Work Phone: Start: 04-29-2024 End: 04-29-2024 Admission to same day surgery center [facility] [place] Start: 04-29-2024 End: 04-29-2024 ambulatory NON STAFF [facility] Work Phone: Start: 04-25-2024 End: 04-25-2024 ambulatory SANDRITA BOWERS Not Available Start: 04-19-2024 End: 04-19-2024 ambulatory NON STAFF [facility] Work Phone: Start: 04-19-2024 End: 04-19-2024 Patient encounter procedure [facility] Work Phone: Start: 04-19-2024 End: 04-19-2024 Discharged Recurring MD Santa Estrada II Work Phone: [facility]Physical [facility] [place] Start: 04-19-2024 Registered Recurring [facility] [place] Start: 04-19-2024 End: 04-19-2024 ambulatory NON STAFF [facility] Work Phone: Start: 04-19-2024 End: 04-19-2024 Patient encounter procedure [facility] Work Phone: Start: 04-16-2024 End: 04-16-2024 ambulatory SANDRITA BOWERS Not Available Start: 04-15-2024 End: 04-15-2024 Patient encounter procedure [facility]-Pre-Surgical Testing Work Phone: Start: 04-15-2024 End: 04-15-2024 ambulatory NON STAFF [facility] Work Phone: Start: 03-13-2024 End: 03-13-2024 ambulatory Peter Booth Facility: [facility] Start: 03-12-2024 End: 03-12-2024 Patient encounter procedure [facility] [place] Work Phone: Start: 03-12-2024 End: 03-12-2024 ambulatory NON STAFF [facility] Work Phone: Start: 02-29-2024 End: 02-29-2024 ambulatory SANTA ESTRADA [facility] Start: 02-27-2024 End: 02-27-2024 ambulatory NON STAFF [facility] Work Phone: Start: 02-27-2024 End: 02-27-2024 Departed Referred [facility] Start: 02-26-2024 End: 02-27-2024 ambulatory Peter Booth Facility:[facility] Start: 02-15-2024 End: 02-15-2024 ambulatory NON STAFF [facility] Work Phone: Start: 02-15-2024 End: 02-15-2024 Patient encounter procedure [facility] Work Phone: Start: 02-01-2024 End: 02-01-2024 ambulatory VICTOR M LUJAN Not Available Start: 01-25-2024 End: 01-26-2024 ambulatory Audra Reynoso PRODUCT ADVISOR-DATA LEAD Facility:[facility] Start: 01-12-2024 End: 01-13-2024 ambulatory Alec Patel MD Facility:[facility] Start: 01-05-2024 End: 01-06-2024 ambulatory Audra Reyonso PRODUCT ADVISOR-DATA LEAD Facility:[facility] Start: 12-15-2023 End: 12-15-2023 ambulatory VICTOR M LUJAN Not Available Start: 08-23-2023 End: 08-23-2023 ambulatory [facility] Start: 07-11-2023 End: 07-11-2023 ambulatory [facility] Start: 09-01-2022 End: 09-01-2022 ambulatory [facility] Start: 09-01-2022 End: 09-01-2022 Encounter for antibody response examination [facility] Start: 10-14-2021 End: 10-15-2021 ambulatory [facility] Start: 10-13-2021 ambulatory [facility] Start: 04-02-2020 End: 04-02-2020 Subsequent hospital visit by physician Yesica MILLER Laboratory Start: 05-31-2019 End: 05-31-2019 Subsequent hospital visit by physician Yesica BELL BENZOEY Comment on above: History of bariatric surgery; Health care maintenance Procedures Date Procedure Procedure Detail Performing Clinician Start: 10-01-2024 Urnls dip stick/tabl et rgnt non-auto w/o micrscp Catrachito Attila DO Work Phone: Start: 08-12-2024 AFP, SERUM, OPEN SPI NA BIFIDA Genevieve SOLITARIO Work Phone: Start: 08-12-2024 Urnls dip stick/tabl et rgnt non-auto w/o micrscp Genevieve SOLITARIO Work Phone: Start: 07-16-2024 Urnls dip stick/tabl et rgnt non-auto w/o micrscp Catrachito Attila DO Work Phone: Start: 06-26-2024 UNLISTED LAB TEST Not I n System Ref Prov Start: 06-21-2024 TBH TOTAL PROTEIN 24 HOUR URINE Catrachito Attila DO Work Phone: Start: 06-19-2024 Urnls dip stick/tabl et rgnt non-auto w/o micrscp Catrachito Attila DO Work Phone: Start: 06-17-2024 ALL CBC WITH AUTO DIFF Catrachito Attila DO Work Phone: Start: 06-11-2024 X-ray of left knee MD Jayy Estrada II Work Phone: Start: 05-23-2024 Urine test visual color cmprsn meths Sandrita Romelia AMAROM Work Phone: Start: 04-29-2024 X-ray of left knee Start: 04-29-2024 Arthroplasty of knee , condyle and plateau, medial compartment Start: 04-19-2024 Plain X-ray of left femur Start: 04-19-2024 Plain X-ray of left tibia and left fibula Start: 04-16-2024 Microscopic observat ion [Identifier] in Cervix by Cyto stain Genevieve SOLITARIO Work Phone: Start: 04-16-2024 Cytp cerv/vag auto t hin layer prep mnl screen Sandrita Bowers CNM Work Phone: Start: 04-15-2024 Antibody screen Comment on above: Order Comment: Date of Surgery: [id number] Result Comment: PERF ORMED BY: [facility] [address] [place] [address] PATHOLOGIST LEMON GROWER GENO BENEDICT M.D. Start: 03-12-2024 Methicillin resistan [...] binding capacity J barrie Khan Work Phone: H/O: section History of 2 sections Mishel Segovia MD Work Phone: History of operative procedure on knee History of knee replacement, unspecified laterality Mishel Segovia MD Work Phone: Plan of Treatment Date Care Activity Detail Author Start: 03-14-2034 DTaP,Tdap and Td Vac cines (3 - Td or Tdap) DTaP,Tdap and Td Vaccines (3 - Td or Tdap) [facility] Start: 04-16-2029 Screening for malign ant neoplasm of cervix [facility] Start: 04-16-2027 Screening for malign ant neoplasm of cervix Pap Smear [facility] Start: 09-04-2025 Adult BMI Screening Adult BMI Screen ing [facility] Start: 09-04-2025 Tobacco Screening Tobacco Screening [facility] Start: 09-04-2025 End: 09-04-2025 US MFM with or without consult US MFM with or without consult Imaging Routine 21 weeks gestation of Retained intrauterine device (IUD) during in second trimester History of gastric bypass Multigravida of advanced maternal age in second trimester Expected: 09/04/2025 (Approximate), Expires: 09/04/2025 [employer] Work Phone: Comment on above: Expected: 09/04/2025 (Approximate), Expires: 09/04/2025 Start: 07-05-2025 Adult BMI Screening Adult BMI Screen ing [facility] Start: 07-05-2025 Tobacco Screening Tobacco Screening [facility] Start: 07-05-2025 End: 07-05-2025 US MFM with or without consult US MFM with or without consult Imaging Routine Retained intrauterine device (IUD) during in second trimester BMI 36.0-36.9,adult Multigravida of advanced maternal age in second trimester Expected: 07/05/2025 (Approximate), Expires: 07/05/2025 [employer] Work Phone: Comment on above: Expected: 07/05/2025 (Approximate), Expires: 07/05/2025 Start: 10-31-2024 End: 10-31-2024 Patient encounter procedure 10/31/2024 8:30 AM EST Routine [facility] [address] [place] [phone] Genevieve Donovan PA [address] [place] [address] [facility] Start: 10-15-2024 End: 10-15-2024 Patient encounter procedure 10/15/2024 10:00 AM EST Appointment [facility] [address] [place] [phone] [facility] Start: 10-01-2024 End: 10-01-2025 CBC panel - Blood by Automated count CBC Lab Routine Diabetes mellitus screening Expected: 10/01/2024 (Approximate), Expires: 10/01/2025 [facility] Work Phone: Comment on above: Expected: 10/01/2024 (Approximate), Expires: 10/01/2025 Start: 10-01-2024 End: 10-01-2024 Patient encounter procedure 10/01/2024 9:50 AM EST Routine [facility] [address] [place] [phone] Catrachito Aiken, DO [address] [place] [address] Arrived [facility] Comment on above: Arrived Start: 09-11-2024 End: 09-11-2024 Alpha fetoprotein, maternal Alpha fetoprotein, maternal Lab Routine Need for maternal serum alpha-protein (MSAFP) screening Expected: 09/11/2024 (Approximate), Expires: 09/11/2024 [facility] Comment on above: Expected: 09/11/2024 (Approximate), Expires: 09/11/2024 Start: 09-09-2024 End: 09-09-2024 Patient encounter procedure 09/09/2024 2:00 PM EST Routine [facility] [address] [place] [phone] Catrachito Aiken, [facility] [place] [address] [facility] Start: 08-20-2024 End: 08-20-2024 Patient encounter procedure [facility] Start: 08-14-2024 End: 08-14-2024 Patient encounter procedure 08/14/2024 1:30 PM EST Routine [facility] [address] [place] [phone] Genevieve Donovan PA [address] [place] [address] [facility] Start: 07-16-2024 End: 07-16-2024 Patient encounter procedure 07/16/2024 11:10 AM EDT Routine [facility] [address] [place] [phone] Catrachito Aiken DO [address] [place] [address] [facility] Start: 06-21-2024 End: 06-21-2024 Professional / ancillary services management 06/21/2024 10:30 AM EDT Ancillary Procedure [facility] [address] [place] [phone] [facility] Start: 06-18-2024 End: 06-18-2024 Patient encounter procedure 06/18/2024 2:00 PM EDT Office Visit [facility] [address] [place] [phone] Sandrita Bowers CN [address] [place], [place] [id number] [facility] Start: 06-17-2024 End: 06-17-2025 ABO/Rh ABO/Rh Lab Routine Missed menses Expected: 06/17/2024 (Approximate), Expires: 06/17/2025 [facility] Comment on above: Expected: 06/17/2024 (Approximate), Expires: 06/17/2025 Start: 06-17-2024 End: 06-17-2025 Alanine aminotransferase [Enzymatic activity/volume] in Serum or Plasma ALT Lab Routine Multigravida of advanced maternal age in first trimester Expected: 06/17/2024 (Approximate), Expires: 06/17/2025 [facility] Comment on above: Expected: 06/17/2024 (Approximate), Expires: 06/17/2025 Start: 06-17-2024 End: 06-17-2025 Aspartate aminotransferase [Enzymatic activity/volume] in Serum or Plasma AST Lab Routine Multigravida of advanced maternal age in first trimester Expected: 06/17/2024 (Approximate), Expires: 06/17/2025 [facility] Comment on above: Expected: 06/17/2024 (Approximate), Expires: 06/17/2025 Start: 06-17-2024 End: 06-17-2025 Blood type and Indirect antibody screen panel - Blood Type and screen Lab Routine Missed menses Expected: 06/17/2024 (Approximate), Expires: 06/17/2025 [facility] Work Phone: Comment on above: Expected: 06/17/2024 (Approximate), Expires: 06/17/2025 Start: 06-17-2024 End: 06-17-2025 CBC W Auto Differential panel - Blood [facility] Comment on above: Ordered: 06/17/2024 Expected: 06/17/2024 (Approximate), Expires: 06/17/2025 Start: 06-17-2024 End: 06-17-2025 Creatinine [Mass/volume] in Serum or Plasma Creatinine Lab Routine Multigravida of advanced maternal age in first trimester Expected: 06/17/2024 (Approximate), Expires: 06/17/2025 [facility] Comment on above: Expected: 06/17/2024 (Approximate), Expires: 06/17/2025 Start: 06-17-2024 End: 06-17-2025 Drugs of abuse panel - Urine by Screen method Rapid drug screen, urine Lab Routine Missed menses Encounter for supervision of normal first in first trimester , unspecified gestational age Expected: 06/17/2024 (Approximate), Expires: 06/17/2025 [facility] Comment on above: Expected: 06/17/2024 (Approximate), Expires: 06/17/2025 Start: 06-17-2024 End: 06-17-2025 Lactate dehydrogenase [Enzymatic activity/volume] in Serum or Plasma by Lactate to pyruvate reaction Lactate dehydrogenase Lab Routine Multigravida of advanced maternal age in first trimester Expected: 06/17/2024, Expires: 06/17/2025 [facility] Comment on above: Expected: 06/17/2024 , Expires: 06/17/2025 Start: 06-17-2024 End: 06-17-2025 Protein, urine, 24 hour Protein, urine, 24 hour Lab Routine Multigravida of advanced maternal age in first trimester Expected: 06/17/2024 (Approximate), Expires: 06/17/2025 [facility] Comment on above: Expected: 06/17/2024 (Approximate), Expires: 06/17/2025 Start: 06-17-2024 End: 06-17-2025 Pt and ptt Pt and ptt Lab Routine Multigravida of advanced maternal age in first trimester Expected: 06/17/2024, Expires: 06/17/2025 [facility] Comment on above: Expected: 06/17/2024 , Expires: 06/17/2025 Start: 06-17-2024 End: 06-17-2025 Urate [Mass/volume] in Serum or Plasma Uric acid Lab Routine Multigravida of advanced maternal age in first trimester Expected: 06/17/2024 (Approximate), Expires: 06/17/2025 [facility] Comment on above: Expected: 06/17/2024 (Approximate), Expires: 06/17/2025 Start: 06-17-2024 End: 06-17-2025 Urea nitrogen [Mass/volume] in Serum or Plasma BUN Lab Routine Multigravida of advanced maternal age in first trimester Expected: 06/17/2024, Expires: 06/17/2025 [facility] Comment on above: Expected: 06/17/2024 , Expires: 06/17/2025 Start: 06-17-2024 End: 06-17-2025 US Pelvis transvaginal US OB transvaginal Imaging Routine complicated by intrauterine device (IUD) Expected: 06/17/2024 (Approximate), Expires: 06/17/2025 [facility] Comment on above: Expected: 06/17/2024 (Approximate), Expires: 06/17/2025 Start: 06-17-2024 End: 06-17-2024 Patient encounter procedure 06/17/2024 10:50 AM EDT Routine [facility] [address] [place] [phone] Catrachito Aiken DO [address] [place] [address] Arrived [facility] Comment on above: Arrived Start: 06-11-2024 X-ray of left knee XR knee LT 3V - NOT FOR ER USE [facility] Start: 06-11-2024 XR Knee - left 3 Views [facility] Start: 05-26-2024 COVID-19 Vaccine ( season) COVID-19 Vaccine ( season) [facility] Start: 05-26-2024 COVID-19 Vaccine ( season) COVID-19 Vaccine () [facility] Start: 05-26-2024 Influenza vaccination P [facility] Start: 05-23-2024 End: 05-23-2024 Professional / ancillary services management 05/23/2024 3:45 PM EDT Ancillary Procedure [facility] [address] [phone] [facility] Start: 05-23-2024 End: 05-23-2024 ambulatory 05/23/2024 3:30 PM EDT Initial [facility] [address] [place] [phone] Sandrita Bowers, CNM [address] [place], [place] [phone] Arrived [facility] Comment on above: Arrived Start: 04-29-2024 Hospital admission [facility] Start: 04-29-2024 End: 04-29-2024 [facility] Start: 04-29-2024 Physical therapy procedure [facility] Start: 04-19-2024 Plain X-ray of left femur XR femur L T 2V* [facility] Start: 04-19-2024 Plain X-ray of left tibia and left fibula XR tibia fibula LT 2V* [facility] Start: 04-19-2024 XR Femur - left 2 Views [facility] Start: 04-19-2024 XR Tibia and Fibula - left 2 Views [facility] Start: 04-15-2024 [facility] Start: 03-12-2024 MRSA Culture MRSA Culture [facility] Start: 02-15-2024 Pelvis X-ray XR pelvis 1-2V [facility] Start: 02-15-2024 Radiologic examinati on of knee XR knee LT 4V* [facility] Start: 02-15-2024 XR Knee - left 4 Views [facility] Start: 02-15-2024 XR Pelvis 1 or 2 Views [facility] Start: 07-02-2022 DTaP/Tdap/Td vaccine (2 - Td) DTaP/Tdap/Td vaccine (2 - Td) [place], [place] Start: 05-26-2020 Influenza vaccination Flu vaccine (# 1) [place] Start: 04-21-2020 End: 04-21-2020 Office Visit 04/21/2020 Office Visit Obstetrics [place] [address] [place] [address] [phone] [facility] 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 [place] Start: 05-26-2019 Influenza vaccination Flu vaccine (# 1) [place], [place] Start: 2018 Screening for malign ant neoplasm of cervix [facility] Start: 2009 Cervical cancer screen Cervical canc er screen [place], [place] Start: 2009 Screening for malign ant neoplasm of cervix [facility] Start: 2007 DTaP/Tdap/Td vaccine (1 - Tdap) DTaP/Tdap/Td vaccine (1 - Tdap) [place] Start: 2006 Adult BMI Follow Up Plan Adult BMI Follow Up Plan [facility] Start: 2003 HIV screen HIV screen [place], [place] Start: 2003 HIV screening HIV screen [place], [place] Start: 2001 Varicella Vaccine (1 of 2 - 13+ 2-dose series) Varicella Vaccine (1 of 2 - 13+ 2-dose series) [place], [place] Start: 2000 Depression Screening Depression Scre ening [facility] Start: 1989 Varicella vaccine (1 of 2 - 2-dose childhood series) Varicella vaccine (1 of 2 - 2-dose childhood series) [place] Bacteria identified in Urine by Culture Urine culture Microbiology Routine Missed menses Ordered: 06/17/2024 [facility] Comment on above: Ordered: 06/17/2024 CHLAMYDIA TRACHOMATI S (GENITO/STI) CHLAMYDIA TRACHOMATIS (GENITO/STI) Lab Routine Exposure to STD Ordered: 08/12/2024 [facility] Comment on above: Ordered: 08/12/2024 End: 05-31-2019 Cobalamin (Vitamin B12) [Mass/Vol] Vitamin B12 Lab Routine History of bariatric surgery 1 Occurrences starting 05/31/2019 until 05/31/2019 [place] Comment on above: 1 Occurrences starti ng 05/31/2019 until 05/31/2019 Cobalamin (Vitamin B 12) [Mass/Vol] Vitamin B12 Lab Routine History of bariatric surgery 05/31/2019 8:42 AM EDT [place] Cotinine [Mass/volum e] in Serum or Plasma [facility] Cotinine [Mass/volum e] in Serum or Plasma [facility] End: 04-02-2020 Covid-19 Ambulatory Covid-19 Ambulatory Lab Routine Once for 1 Occurrences starting 04/02/2020 until 04/02/2020 [place] Comment on above: Once for 1 Occurrenc es starting 04/02/2020 until 04/02/2020 Covid-19 Ambulatory Covid-19 Amb ulatory Lab Routine 04/02/2020 10:12 PM EDT [place] Glucose measurement estimated from glycated hemoglobin [facility] Hemoglobin A1c/Hemoglobin.total in Blood Hemoglobin A1c Lab Routine Missed menses Ordered: 06/17/2024 [facility] Comment on above: Ordered: 06/17/2024 Hepatitis B virus herr rface Ag [Presence] in Serum or Plasma by Immunoassay Hepatitis B surface antigen Lab Routine Missed menses Ordered: 06/17/2024 [facility] Comment on above: Ordered: 06/17/2024 Hepatitis C virus Ab [Presence] in Serum or Plasma by Immunoassay Hepatitis C antibody Lab Routine Missed menses Ordered: 06/17/2024 [facility] Comment on above: Ordered: 06/17/2024 HIV-1/HIV-2 antigen/antibody combination immunoassay HIV-1 and HIV-2 antibodies Lab Routine Missed menses Ordered: 06/17/2024 [facility] Comment on above: Ordered: 06/17/2024 Methicillin resistan t Staphylococcus aureus [Presence] in Unspecified specimen by Organism specific culture [facility] MR Knee - left WO contrast F [facility] Neisseria gonorrhoea e DNA [Presence] in Unspecified specimen by SORIN with probe detection Neisseria gonorrhea DNA probe, direct Lab Routine Exposure to STD Ordered: 08/12/2024 [facility] Comment on above: Ordered: 08/12/2024 Nicotine [Mass/volum e] in Serum or Plasma [facility] Nicotine [Mass/volum e] in Serum or Plasma [facility] Patient Education Know your Meds [facility] Work Phone: Reagin Ab [Presence] in Serum by RPR RPR Lab Routine Missed menses Ordered: 06/17/2024 [facility] Comment on above: Ordered: 06/17/2024 Rubella antibody, IgG Rubella an tibody, IgG Lab Routine Missed menses Ordered: 06/17/2024 [facility] Comment on above: Ordered: 06/17/2024 SURESWAB(R) ADVANCED VAGINITIS PLUS, TMA SURESWAB(R) ADVANCED VAGINITIS PLUS, TMA Pathology and Cytology Routine Exposure to STD Ordered: 08/12/2024 [facility] Work Phone: Comment on above: Ordered: 08/12/2024 End: 03-31-2025 US for US OB follow up transabdominal approach Imaging Routine Retained intrauterine device (IUD) during in second trimester every 4 weeks for 4 Occurrences starting 10/01/2024 until 03/31/2025 [facility] Comment on above: every 4 weeks for 4 Occurrences starting 10/01/2024 until 03/31/2025 [facility] Immunizations Immunization Date Immunization Notes Care Provider Marty cerna 07-10-2024 influenza virus vaccine, unspecified formulation Catrachito Aiken DO Work Phone: [facility] 07-29-2021 COVID-19 mRNA-1273 (Moderna) [facility] 10-29-2020 COVID-19 mRNA-1273 (Moderna) [facility] 10-01-2020 COVID-19 mRNA-1273 (Moderna) [facility] 06-30-2020 influenza virus vaccine, unspecified formulation Sandrita Floro CNM Work Phone: [facility] 07-03-2019 influenza virus vaccine, unspecified formulation Yesica Khan [facility] [place] 06-05-2017 influenza, seasonal, injectable Sandrita Floro CNM Work Phone: [facility] 05-12-2017 influenza, injectabl e, quadrivalent, preservative free Sandrita Floro CNM Work Phone: [facility] 07-02-2012 tetanus toxoid, redu [place] diphtheria toxoid, and acellular pertussis vaccine, adsorbed Yesica Khan [facility] 05-18-2001 measles, mumps and rubella virus vaccine Sandrita Floro CNM Work Phone: [facility] Payers Date Payer Category Payer Commercial Managed C are - HMO PARAMOUNT [id number] [facility] [id number] 2024 Unknown [id number] 2024 Self-pay [id number] 2023 [facility] [id number] 2023 Unknown 2023 Unknown [id number] 2022 Unknown [id number] 2020 Unknown [id number] 2018 Unknown [employer] M [employer] EMP xxxxxxxxxxxx 2018-Present [phone] [address] [place] [address] xxxxxxxxxxxx [id number] 2018 Medicaid [id number] 2014 Unknown [employer]AMOUNT ADVANT AGE PAR[employer]OUNT ADVANTAGE xxxxxxxxxxx 2014-Present [phone] [address] [place] [address] xxxxxxxxxxx [id number] .[id number] 1988 Unknown [id number] 2.16.840.1.768047.3.579.2 .196 1988 Unknown [id number] 2.16.840.1.848344.3.579.2 .196 1988 Unknown [id number] 2.16.840.1.226670.3.579.2 .196 1988 Unknown [id number] 2.16.840.1.676488.3.579.2 .718 1988 Unknown [id number] 2.16.840.1.791345.3.579.2 .718 1988 Unknown [id number] 2.16.840.1.837123.3.579.2 .718 1988 Unknown [id number] 2.16.840.1.253584.3.579.2 .718 1988 Unknown [id number] 2.16.840.1.576525.3.579.2 .718 1988 Unknown [id number] 2.16.840.1.151124.3.579.2 .718 1988 Unknown [id number] 2.16.840.1.571231.3.579.2 .8 1988 Unknown [id number] 2.16.840.1.052339.3.579.2 .1286 1988 Unknown [id number] 2.16.840.1.970890.3.579.2 .1286 1988 Unknown [id number] 2.16.840.1.572194.3.579.2 .6 1988 Unknown [id number] 2.16.840.1.785215.3.579.2 .1286 1988 Unknown [id number] 2.16.840.1.206003.3.579.2 .1286 1988 Unknown [id number] 2.16.840.1.918712.3.579.2 .1286 1988 Unknown [id number] 2.16.840.1.925368.3.579.2 .9 1988 Unknown [id number] 2.16.840.1.727020.3.579.2 .9 1988 Unknown [id number] 2.16.840.1.965089.3.579.2 .1259 1988 Unknown [id number] 2.16.840.1.868501.3.579.2 .1259 1988 Unknown [id number] 2.16.840.1.116792.3.579.2 .1259 1988 Unknown [id number] 2.16.840.1.524683.3.579.2 .1259 1988 Unknown [id number] 2.16.840.1.378900.3.579.2 .1259 1988 Unknown [id number] 2.16.840.1.335689.3.579.2 .1259 1988 Unknown [id number] 2.16.840.1.932546.3.579.2 .9 1988 Unknown [id number] 2.16.840.1.995060.3.579.2 .1259 1988 Unknown [id number] 2.16.840.1.036115.3.579.2 .9 1988 Unknown [id number] 2.16.840.1.864970.3.579.2 .1259 1988 Unknown [id number] 2.16.840.1.204090.3.579.2 .1286 1988 Unknown [id number] 2.16.840.1.465858.3.579.2 .1286 1988 Unknown [id number] 2.16.840.1.215086.3.579.2 .1286 Unknown [facility] Employees [id number] [facility] [id number] Unknown [id number] 2.16.840.1.453181.3.579.2 .531 Unknown [id number] 2.16.840.1.556398.3.579.2 .531 Unknown [id number] 2.16.840.1.125756.3.579.2 .531 Unknown [id number] 2.16.840.1.120045.3.579.2 .531 Social History Date Type Detail Facility Start: 05-17-2019 End: 01-03-2020 Tobacco smoking status NHIS Former smoker [place], [place] Start: 05-17-2019 End: 04-25-2024 Cigarettes smoked current (pack per day) - Reported [place] Start: 05-17-2019 End: 04-25-2024 Alcohol intake Yes [place] Start: 05-17-2019 Alcohol Comment social [facility] [place] Start: 1990 Sex Assigned At Not on file M [place] Start: 01-03-2020 End: 10-01-2024 Alcohol intake Current drinker of alcohol (finding) [place] Start: 11-14-2019 End: 04-20-2023 Tobacco smoking status NHIS Never smoked tobacco (finding) [facility] Start: 1990 Sex Assigned At Female F [facility] Start: 07-29-2016 End: 04-20-2023 Tobacco use and exposure Smokeless tobacco non-user [facility] Start: 07-05-2024 End: 09-04-2024 Alcoholic beverage intake Ex-drinker (finding) [facility] Childcare Unknown [facility] Start: 07-29-2016 Alcohol Comment 1-2 drinks per month [facility] Start: 04-21-2024 [facility] Start: 04-30-2015 Sex Female (finding) [facility] NEGATED: Highlighted row [facility] Medical Equipment Procedure Code Equipment Code Equipment Origin al Text Equipment Identifier Dates Arthroplasty, knee, total, minimally invasive Uncoated unicondylar knee femur prosthesis [id number] FDA Start: 04-29-2024 Arthroplasty, knee, total, minimally invasive Uncoated unicondylar knee tibia prosthesis, metallic [id number] FDA Start: 04-29-2024 Arthroplasty, knee, total, minimally invasive Unicondylar knee insert [id number] FDA Start: 04-29-2024 Arthroplasty, knee, total, minimally invasive Orthopaedic cement, non-medicated [id number] FDA Start: 04-29-2024 1 strip by In Vi tro route Daily Use in the morning prior to breakfast, 1 hour after each meal for a total of 4times daily. [id number] Start: 07-08-2024 End: 08-07-2024 1 each by In Vit ro route Daily Use to check FSBS four times daily [id number] Start: 07-08-2024 End: 08-07-2024 Goals Date Patient Goal Desired Activity /State Clinical Notes 07-11-2023 to 10-01-2024 Vikki Fisher LPN - 10/01/2024 9:50 AM Nicki Reid MD - 09/04/2024 11:30 AM Marcos Dougherty RN - 09/04/2024 11:30 AM ALTAF Moreno - 08/12/2024 1:30 PM EST Note Date & Type Note Facility 10-01-2024 History of Present illness Narrative Reason for Appointment: Patient ID: Lucila Jacques is a 34 y.o. female who presents for Routine Visit Patient presents today for Return OB appointment. MEDICATIONS Current Outpatient Medications Medication Instructions Calcium Citrate 150 MG capsule Orally GNP PAIN RELIEF EX-STRENGTH 500 MG tablet TAKE 2 TABLETS BY MOUTH EVERY 8 HOURS FOR 30 DAYS Multiple Vitamins-Minerals (Multi Complete) capsule as directed Orally ALLERGIES Allergies Allergen Reactions Amoxicillin Amoxicillin-Pot Clavulanate Nausea, abdominal pain Ibuprofen Hives Magnesium Other Reaction(s): IV Nsaids Hives Other Reaction(s): Unknown Potassium Other Reaction(s): Unknown Potassium Chloride Hives Iodinated Contrast Media Hives, Itching and Rash PROBLEMS Active Ambulatory Problems Diagnosis Date Noted Arthritis of left knee 04/20/2023 Chronic migraine without aura (CMS/HCC) 04/20/2023 Derangement of knee 04/20/2023 Internal derangement of right knee 04/20/2023 Genital warts 04/20/2023 Hypomagnesemia 04/20/2023 Joint mouse 04/20/2023 Mixed anxiety and depressive disorder 04/20/2023 Obesity 04/20/2023 Palpitations 04/20/2023 Peripheral venous insufficiency 04/20/2023 Sacroiliac joint pain 04/20/2023 Varicose veins of left lower extremity 04/20/[address], antepartum, first trimester 05/24/2024 with uncertain viability 05/24/2024 Resolved Ambulatory Problems Diagnosis Date Noted No Resolved Ambulatory Problems Past Medical History: Diagnosis Date Migraine headache (CMS/HCC) HISTORY PAST MEDICAL HISTORY SOCIAL HISTORY Past Medical History: Diagnosis Date Migraine headache (CMS/HCC) Social History Tobacco Use Smoking status: Never Smokeless tobacco: Never Substance Use Topics Alcohol use: Yes Drug use: Not on file FAMILY HISTORY Family History Problem Relation Name Age of Onset Diabetes Father Hypertension Father SURGICAL HISTORY Past Surgical History: Procedure Laterality Date BARIATRIC SURGERY 07/2016 SECTION, CLASSIC 2011, 2014 KNEE SURGERY Left 03/30/2022 LT knee joint mouse excision (2cmx1.7cm) medial and PFJ arthritis- Dr Martinez MICRODISCECTOMY LUMBAR 08/2017 Micro lumbectomy REVIEW OF SYSTEMS Review of Systems: Review of Systems Constitutional: Negative. HENT: Negative. Eyes: Negative. Respiratory: Negative. Cardiovascular: Negative. Gastrointestinal: Negative. Genitourinary: Negative. Musculoskeletal: Negative. Skin: Negative. Neurological: Negative. All other systems reviewed and are negative. Hematological: Negative. Endocrine: Negative. Allergic/Immunologic: Negative. OBJECTIVE Objective: Physical Exam Constitutional: Appearance: Normal appearance. She is well-developed. Cardiovascular: Rate and Rhythm: Normal rate and regular rhythm. Pulmonary: Effort: Pulmonary effort is normal. Breath sounds: Normal breath sounds. Abdominal: General: Bowel sounds are normal. There is no distension. Palpations: Abdomen is soft. Tenderness: There is no abdominal tenderness. There is no guarding or rebound. Musculoskeletal: General: No swelling. Normal range of motion. Right lower leg: No edema. Left lower leg: No edema. Neurological: Mental Status: She is alert and oriented to person, place, and time. Skin: General: Skin is warm and dry. Psychiatric: Mood and Affect: Mood normal. Behavior: Behavior normal. Vitals and nursing note reviewed. Exam conducted with a awning craftsperson present. Vitals: Estimated body mass index is 39.19 kg/m as calculated from the following: Height as of 03/22/22: 5' 6 . Weight as of this encounter: 242 lb 12.8 oz. BP: 108/68 Patient's last menstrual period was 04/07/2024 (exact date). ASSESSMENT & PLAN ICD-10-CM 1. Second trimester Z34.92 POCT urinalysis dipstick manually resulted 2. 25 weeks gestation of Z3A.25 POCT urinalysis dipstick manually resulted 3. with normal glucose tolerance test (GTT) Z34.90 4. Diabetes mellitus screening Z13.1 CBC Glucose tolerance, 1 hour CBC Glucose tolerance, 1 hour 5. Retained intrauterine device (IUD) during in second trimester O26.32 US OB follow up transabdominal approach US OB follow up transabdominal approach Return OB: Patient presents today for a routine obstetrics appointment. Patient is currently 25w2d . Patient states she is doing well but has complaints of being tired due to current . Patient has verbalizes frequent movement. labor precautions was discussed/given and patient was instructed to perform kick counts three times a day. Pt given growth ultrasound to have obtained every 4 weeks starting at 28 weeks. Pt to start weekly NST/BPP at 34 weeks d/t retained IUD during . Pt already tested glucose with MFM and was released. Order for CBC given. Orders Placed This Encounter Procedures US OB follow up transabdominal approach CBC Glucose tolerance, 1 hour POCT urinalysis dipstick manually resulted Follow Up: Patient is to return to office in 3week for routine OB appointment. Documented by Vikki Fisher LPN on behalf of: Catrachito Aiken DO documented in this encounter [facility] 09-04-2024 History of Present illness Narrative [facility] Visit Note HPI: Lucila Jacques is a 34 y.o. at 21w3d with Estimated Date of Delivery: 01/12/25 who is presenting for an office visit regarding Chief Complaint Patient presents with Retained IUD AMA I have reviewed the pertinent available patient records including but not limited to notes, labs and images She presents today with her partner. She reports that she is doing well. She reports normal movements and she denies LOF, contractions, vaginal bleeding, headache, blurry vision, RUQ pain and edema. The patient tells me that her blood glucose logs were reviewed per her primary OB and that they were within normal 1. Retained IUD during - on ultrasound today I suspect the IUD is in the lower uterine segment embedded in the myometrium at the edge of the placenta. No sonographic evidence of a hematoma, 2. History of 2 prior . Patient is scheduled for repeat with bilateral tubal ligation at her OB office 3. History of right knee replacement. Patient was on Xarelto anticoagulation earlier which she has stopped. Currently not on medication 4. History of gastric sleeve procedure. 5. Maternal increased BMI. 6. 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 Cardiovascular and Respiratory System: Denies any chest pain, shortness of breath, and coughing. Abdominal and System: Denies any abdominal pain, nausea, vomiting, vaginal bleeding, and vaginal discharge OB Hx: OB History Para Term AB Living 3 2 2 2 SAB IAB Ectopic Multiple Live Births 2 # Outcome Date GA Lbr Justin/2nd Weight Sex Type Anes PTL Lv 3 Current 2 Term 2014 37w0d 3.26 kg M NICCI 1 Term 2011 37w0d 3.572 kg M NICCI Complications: Polyhydramnios, Clubfoot PMH: Past Medical History: Diagnosis Date Anxiety Arrhythmia palpitations daily, last a few seconds, without chest pain or sob, has mentioned to pcp, has not had testing Arthritis Back pain [place] involving 10-19% of body surface age 1 scarring from hot water laughlin left arm and chin and neck bilateral Depression Hip pain Joint derangement sacral illiac joint goes out of place bilateral approx twice a year, sees chiropracter, for adjustment Knee pain Migraines Obesity PONV (postoperative nausea and vomiting) PSHIST: Past Surgical History: Procedure Laterality Date ARTHROSCOPY MENISCECTOMY KNEE Left 03/30/2022 Performed by Mason Martinez DO at [facility] SECTION 06/25/2012 SECTION 10/26/2014 laparoscopic hiatal hernia repair N/A 08/05/2016 Performed by Vahe Fernandez MD at [facility] LAPAROSCOPIC SLEEVE GASTRECTOMY POSSIBLE CLOSURE OF DIAPHRAGMATIC [facility] N/A 08/05/2016 Performed by Vahe Fernandez MD at [facility] MICRODISCECTOMY LUMBAR Allergies: Allergies Allergen Reactions Amoxicillin Magnesium Hives Nsaids (Non-Steroidal Anti-Inflammatory Drug) Hives Potassium Chloride Hives Meds: Prior to Admission medications Medication Sig Start Date End Date Taking? Authorizing Provider CALCIUM CITRATE ORAL Take by mouth. Not In System Ref Prov multivitamin (MULTIPLE VITAMINS DAILY ORAL) Take by mouth. Not In System Ref Prov ondansetron (ZOFRAN) 4 mg tablet Take 1 tablet (4 mg total) by mouth every 8 (eight) hours as needed for nausea or vomiting. Not In System Ref Prov SH: Social History Socioeconomic History Marital status: Spouse name: Not on file Number of children: Not on file Years of education: Not on file Highest education level: Not on file Occupational History Not on file Tobacco Use Smoking status: Never Smokeless tobacco: Never Vaping Use Vaping status: Never Used Substance and Sexual Activity Alcohol use: Not Currently Comment: 1-2 drinks per month Drug use: No Sexual activity: Defer Other Topics Concern Not on file Social History Narrative Not on file Social Drivers of Health Financial Resource Strain: Low Risk (03/13/2024) Received from [facility] Overall Financial Resource Strain (CARDIA) Difficulty of Paying Living Expenses: Not hard at all Food Insecurity: No Food Insecurity (07/05/2024) Hunger Screening Food Insecurity - Worry: Never True Food Insecurity - Inability: Never True Transportation Needs: Unknown (03/13/2024) Received from [facility] PRAPARE - Transportation Lack of Transportation (Medical): Not on file Lack of Transportation (Non-Medical): No Physical Activity: Not on file Stress: Not on file Social Connections: Not on file Interpersonal Safety: Not on file Housing Instability: Unknown (03/13/2024) Received from [facility] Housing Stability Vital Sign Unable to Pay for Housing in the Last Year: Not on file Number of Places Lived in the Last Year: Not on file Unstable Housing in the Last Year: No Physical Exam: Vital Signs Vitals: 09/04/24 1033 Weight: 109.9 kg (242 lb 3.2 oz) Physical Exam: Gen: Not in acute distress, alert and oriented. Eyes: Pupils equal and reactive Chest: Nonlabored breathing Cardiac: Pulse was regular on vital signs assessment Abdomen: Gravid Skin/extremities: Appears intact. No visible lesions MS:no visible edema Neuro: No focal deficits Notes/Imaging/Labs reviewed No visits with results within 1 Month(s) from this visit. Latest known visit with results is: Hospital Outpatient Visit on 07/10/2024 Component Date Value Ref Range Status Alkaline phosphatase 07/10/2024 44 39 - 130 U/L Final AST 07/10/2024 16 0 - 41 U/L Final ALT 07/10/2024 11 0 - 31 U/L Final Total Bilirubin 07/10/2024 0.5 0.3 - 1.2 mg/dL Final Bilirubin, direct 07/10/2024 0.1 0.0 - 0.4 mg/dL Final Albumin 07/10/2024 3.8 3.2 - 5.3 g/dL Final Total Protein 07/10/2024 6.5 6.0 - 8.0 g/dL Final Anti HBs quantitative 07/10/2024 <8.00 mIU/mL Final Comment: Vaccinated: >=12mIU/mL, Positive (Immune) Unvaccinated: <8mIU/mL, Negative (Not Immune) 8-11.99 mIU/mL: Indeterminate, (Considered Not Immune) BUN 07/10/2024 9 5 - 23 mg/dL Final Creatinine 07/10/2024 0.54 0.40 - 1.00 mg/dL Final METHOD TRACEABLE TO [facility] STANDARD eGFR (CKD-EPI)non-race dependent 07/10/2024 >90 >59 ml/min/1.73sq.m Final Comment: Reported eGFR is based on the CKD-EPI 2020 equation that does not use a race coefficient. White Blood Cells 07/10/2024 7.0 4.0 - 11.0 X10E9/L Final RBC count 07/10/2024 4.37 3.80 - 5.20 X10E12/L Final Hemoglobin 07/10/2024 13.4 11.7 - 15.5 g/dL Final Hematocrit 07/10/2024 39.1 35 - 47 % Final MCV 07/10/2024 89 80 - 100 fL Final MCH 07/10/2024 30.6 27 - 34 pg Final MCHC 07/10/2024 34.3 32 - 36 g/dL Final RDW 07/10/2024 13.1 11.5 - 15.0 % Final Platelets 07/10/2024 232 150 - 450 X10E9/L Final MPV 07/10/2024 7.9 7 - 12 fL Final % neutrophils 07/10/2024 72.1 % Final % lymphocytes 07/10/2024 19.0 % Final % monocytes 07/10/2024 6.7 % Final % eosinophils 07/10/2024 1.6 % Final % Basophils 07/10/2024 0.6 % Final Neutrophils Absolute (A) 07/10/2024 5.1 1.5 - 6.6 X10E9/L Final Lymphocytes Absolute 07/10/2024 1.3 1.0 - 3.5 X10E9/L Final Monocytes Absolute 07/10/2024 0.5 0 - 0.9 X10E9/L Final Eosinophils Absolute 07/10/2024 0.1 0.0 - 0.4 X10E9/L Final Basophils Absolute 07/10/2024 0.0 0.0 - 0.2 X10E9/L Final Ultrasound findings Pertinent Ultrasound findings are see report. Assessment/Plan 34 y.o. at 21w3d with Estimated Date of Delivery: 01/12/25 here for office visit regardin. 21 weeks gestation of 2. Retained intrauterine device (IUD) during in second trimester 3. History of gastric bypass 4. Obesity affecting in second trimester, unspecified obesity type 5. with history of section, antepartum 21 weeks gestation of [Z3A.21] Please refer to prior [facility] recommendations and consultation notes Ultrasound was reviewed thoroughly with the patient and her partner today Anatomy is incomplete the patient is scheduled for follow-up On ultrasound at the lower uterine segment the edge of the placenta I suspect that the IUD is imbedded in the wall of the uterus. I reviewed with the patient that I do not see sonographic signs of the hematoma. Limitations of sonogram discussed. I reviewed with the patient that a retained IUD can increase her risk of complications such as delivery, rupture of membranes, placental abruption and intra amniotic infection. Currently she is asymptomatic. She was given return precautions and education on signs and symptoms of this. At the time of the delivery the uterine cavity should be thoroughly inspected as well as the placenta and membranes for the IUD and the IUD should be removed. Recommendations: Aneuploidy screening low risk per patient report. I do not have that record Screening for GDM by fingerstick blood sugar as per above. Recommend glucometer and supplies to be sent by Dr. Aiken's office. To have repeat blood glucose screen by fingersticks between 25-28 weeks CBC, iron, ferritin, calcium and vitamin D level each trimester through primary OB office Scheduled for follow-up survey in 4-6 weeks Serial growth assessments every 4 weeks after the anatomy scan it can be performed through primary OB office. If you would like [facility] to perform the growth ultrasound please place a referral Weekly NST and DVP from 34 weeks until delivery due to the patient's medical co-morbidities. To be done in primary OB office Delivery recommended at 39 weeks or earlier as clinically indicated to remove IUD at time of section. The patient desires tubal ligation The patient has a scheduled ultrasound with [facility] She does not have future follow-up visits at [facility] if you would like for us to see the patient again please reach out was The patient is to continue with routine care in your office Thank you for allowing me to participate in her care. Please contact me if you have any concerns. Christen Reid MD, FACOG (she/hers) Maternal- Medicine [facility] [address] [place] [address] This document was created with [employer] technology. Though I make every effort to review the dictation as it is transcribed, on occasion the spoken word can be misinterpreted by the technology leading to inappropriate words, phrases, or sentences. This note is addressed to the requesting provider as a consultation for clinical guidance. Specific medical abbreviations are occasionally used and those are generally approved by the [place]?Board of?Obstetrics and?Gynecology?as well as?Vilma mckeon abbreviations. The above plan of care was based solely on the diagnoses for which a consultation was requested. ?More frequent testing may be indicated based on her other medical/obstetrical conditions. The management of other or medical conditions is beyond the scope of requested consultation and will continue to be followed by the primary power lineman or primary care provider. Note to patient: The Cures Act makes medical notes like these available to patients in the interest of transparency. However, be advised this is a medical document. It is intended as peer to peer communication. It is written in medical language and may contain abbreviations or verbiage that are unfamiliar. It may appear blunt or direct. Medical documents are intended to carry relevant information, facts as evident, and the clinical opinion of the practitioner. Headache/epigastric pain/blurry vision/swelling? No Cramping/contractions? No Abnormal vaginal discharge? No Spotting or vaginal bleeding? No Loss or gush of fluid like your water may have broken? No Recent ER visits or hospitalizations? Knee surgery in April Any concerns that you would like me to mention to the provider today? No documented in this encounter [facility] 08-12-2024 History of Present illness Narrative Reason for Appointment: Patient ID: Lucila Jacques is a 34 y.o. female who presents for Routine Visit Patient presents today for Return OB appointment. MEDICATIONS Current Outpatient Medications Medication Instructions Calcium Citrate 150 MG capsule Orally GNP PAIN RELIEF EX-STRENGTH 500 MG tablet TAKE 2 TABLETS BY MOUTH EVERY 8 HOURS FOR 30 DAYS Multiple Vitamins-Minerals (Multi Complete) capsule as directed Orally ALLERGIES Allergies Allergen Reactions Amoxicillin-Pot Clavulanate Nausea, abdominal pain Ibuprofen Hives Magnesium Other Reaction(s): IV Nsaids Hives Other Reaction(s): Unknown Potassium Other Reaction(s): Unknown PROBLEMS Active Ambulatory Problems Diagnosis Date Noted Arthritis of left knee 04/20/2023 Chronic migraine without aura (CMS/HCC) 04/20/2023 Derangement of knee 04/20/2023 Internal derangement of right knee 04/20/2023 Genital warts 04/20/2023 Hypomagnesemia 04/20/2023 Joint mouse 04/20/2023 Mixed anxiety and depressive disorder 04/20/2023 Obesity 04/20/2023 Palpitations 04/20/2023 Peripheral venous insufficiency 04/20/2023 Sacroiliac joint pain 04/20/2023 Varicose veins of left lower extremity 04/20/[address], antepartum, first trimester 05/24/2024 with uncertain viability 05/24/2024 Resolved Ambulatory Problems Diagnosis Date Noted No Resolved Ambulatory Problems Past Medical History: Diagnosis Date Migraine headache (CMS/HCC) HISTORY PAST MEDICAL HISTORY SOCIAL HISTORY Past Medical History: Diagnosis Date Migraine headache (CMS/HCC) Social History Tobacco Use Smoking status: Never Smokeless tobacco: Never Substance Use Topics Alcohol use: Yes Drug use: Not on file FAMILY HISTORY Family History Problem Relation Name Age of Onset Diabetes Father Hypertension Father SURGICAL HISTORY Past Surgical History: Procedure Laterality Date BARIATRIC SURGERY 07/2016 SECTION, CLASSIC 2011, 2014 KNEE SURGERY Left 03/30/2022 LT knee joint mouse excision (2cmx1.7cm) medial and PFJ arthritis- Dr Martinez MICRODISCECTOMY LUMBAR 08/2017 Micro lumbectomy REVIEW OF SYSTEMS Review of Systems: Review of Systems Constitutional: Negative. HENT: Negative. Eyes: Negative. Respiratory: Negative. Cardiovascular: Negative. Gastrointestinal: Negative. Genitourinary: Negative. Musculoskeletal: Negative. Skin: Negative. Neurological: Negative. All other systems reviewed and are negative. Hematological: Negative. Endocrine: Negative. Allergic/Immunologic: Negative. OBJECTIVE Objective: Physical Exam Constitutional: Appearance: Normal appearance. She is normal weight. HENT: Head: Normocephalic. Cardiovascular: Rate and Rhythm: Normal rate. Pulses: Normal pulses. Pulmonary: Effort: Pulmonary effort is normal. Breath sounds: Normal breath sounds. Abdominal: Palpations: Abdomen is soft. Musculoskeletal: General: Normal range of motion. Neurological: General: No focal deficit present. Mental Status: She is alert and oriented to person, place, and time. Psychiatric: Mood and Affect: Mood normal. Behavior: Behavior normal. Thought Content: Thought content normal. Judgment: Judgment normal. Vitals and nursing note reviewed. Vitals: Estimated body mass index is 38.54 kg/m as calculated from the following: Height as of 03/22/22: 5' 6 . Weight as of 07/16/24: 238 lb 12.8 oz. BP: Patient's last menstrual period was 04/07/2024 (exact date). ASSESSMENT & PLAN ICD-10-CM 1. Exposure to STD Z20.2 SURESWAB(R) ADVANCED VAGINITIS PLUS, TMA CHLAMYDIA TRACHOMATIS (GENITO/STI) Neisseria gonorrhea DNA probe, direct 2. Need for maternal serum alpha-protein (MSAFP) screening Z36.1 Alpha fetoprotein, maternal Alpha fetoprotein, maternal 3. Screening, , for anatomic survey Z36.89 CANCELED: US OB ANATOMY SINGLE W US OB CERVICAL LENGTH 4. Second trimester Z34.92 POCT urinalysis dipstick manually resulted 5. 18 weeks gestation of Z3A.18 Return OB: Patient presents today for a routine obstetrics appointment. Patient is currently 18w1d . Patient states she is doing well but has complaints of being tired due to current . Patient has verbalizes frequent movement. Return to OB follow up visit in 4 weeks Orders Placed This Encounter Procedures CHLAMYDIA TRACHOMATIS (GENITO/STI) Neisseria gonorrhea DNA probe, direct Alpha fetoprotein, maternal POCT urinalysis dipstick manually resulted Follow Up: Patient is to return to office in 4 week for routine OB appointment. Documented by Blaire Abraham MA on behalf of: ALTAF Nation documented in this encounter [facility] 07-16-2024 History of Present illness Narrative Reason for Appointment: Patient ID: Lucila Jacques is a 34 y.o. female who presents for No chief complaint on file. Patient presents today for Return OB appointment. MEDICATIONS Current Outpatient Medications Medication Instructions Alcohol Swabs (Alcohol Prep Pad) 70 % pads 1 Pad, Topical, Daily, Use four times daily to check FSBS. Blood Glucose Monitoring Suppl (D-Care Glucometer) w/Device kit 1 kit, Does not apply, Daily, Use four times daily to check FSBS. In the morning prior to breakfast & 1 hour after each meal for a total of 4times daily. Calcium Citrate 150 MG capsule Orally cholecalciferol (VITAMIN D-3) 1,000 Units, Daily Glucose Blood (Blood Glucose Test) strip 1 strip, In Vitro, Daily, Use in the morning prior to breakfast, 1 hour after each meal for a total of 4times daily. Lancets Ultra Thin misc 1 each, In Vitro, Daily, Use to check FSBS four times daily Multiple Vitamins-Minerals (Multi Complete) capsule as directed Orally ondansetron ODT (ZOFRAN-ODT) 4 mg, Oral, Every 6 hours PRN ALLERGIES Allergies Allergen Reactions Amoxicillin-Pot Clavulanate Nausea, abdominal pain Ibuprofen Hives Magnesium Other Reaction(s): IV Nsaids Hives Other Reaction(s): Unknown Potassium Other Reaction(s): Unknown PROBLEMS Active Ambulatory Problems Diagnosis Date Noted Arthritis of left knee 04/20/2023 Chronic migraine without aura (CMS/HCC) 04/20/2023 Derangement of knee 04/20/2023 Internal derangement of right knee 04/20/2023 Genital warts 04/20/2023 Hypomagnesemia 04/20/2023 Joint mouse 04/20/2023 Mixed anxiety and depressive disorder 04/20/2023 Obesity 04/20/2023 Palpitations 04/20/2023 Peripheral venous insufficiency 04/20/2023 Sacroiliac joint pain 04/20/2023 Varicose veins of left lower extremity 04/20/[address], antepartum, first trimester 05/24/2024 with uncertain viability 05/24/2024 Resolved Ambulatory Problems Diagnosis Date Noted No Resolved Ambulatory Problems Past Medical History: Diagnosis Date Migraine headache (CMS/HCC) HISTORY PAST MEDICAL HISTORY SOCIAL HISTORY Past Medical History: Diagnosis Date Migraine headache (CMS/HCC) Social History Tobacco Use Smoking status: Never Smokeless tobacco: Never Substance Use Topics Alcohol use: Yes Drug use: Not on file FAMILY HISTORY Family History Problem Relation Name Age of Onset Diabetes Father Hypertension Father SURGICAL HISTORY Past Surgical History: Procedure Laterality Date BARIATRIC SURGERY 07/2016 SECTION, CLASSIC 2011, 2014 KNEE SURGERY Left 03/30/2022 LT knee joint mouse excision (2cmx1.7cm) medial and PFJ arthritis- Dr Martinez MICRODISCECTOMY LUMBAR 08/2017 Micro lumbectomy REVIEW OF SYSTEMS Review of Systems: Review of Systems Constitutional: Negative. HENT: Negative. Eyes: Negative. Respiratory: Negative. Cardiovascular: Negative. Gastrointestinal: Negative. Genitourinary: Negative. Musculoskeletal: Negative. Skin: Negative. Neurological: Negative. All other systems reviewed and are negative. Hematological: Negative. Endocrine: Negative. Allergic/Immunologic: Negative. OBJECTIVE Objective: Physical Exam Constitutional: Appearance: Normal appearance. She is well-developed. Cardiovascular: Rate and Rhythm: Normal rate and regular rhythm. Pulmonary: Effort: Pulmonary effort is normal. Breath sounds: Normal breath sounds. Abdominal: General: Bowel sounds are normal. There is no distension. Palpations: Abdomen is soft. Tenderness: There is no abdominal tenderness. There is no guarding or rebound. Musculoskeletal: General: No swelling. Normal range of motion. Right lower leg: No edema. Left lower leg: No edema. Neurological: Mental Status: She is alert and oriented to person, place, and time. Skin: General: Skin is warm and dry. Psychiatric: Mood and Affect: Mood normal. Behavior: Behavior normal. Vitals and nursing note reviewed. Exam conducted with a awning craftsperson present. Vitals: Estimated body mass index is 38.54 kg/m as calculated from the following: Height as of 03/22/22: 5' 6 . Weight as of this encounter: 238 lb 12.8 oz. BP: 110/64 Patient's last menstrual period was 04/07/2024 (exact date). ASSESSMENT & PLAN ICD-10-CM 1. 14 weeks gestation of Z3A.14 POCT urinalysis dipstick manually resulted 2. Second trimester Z34.92 POCT urinalysis dipstick manually resulted New OB: Patient presents today for 1st time obstetrics appointment with provider. Patient is currently 14w2d . Patients history has been reviewed in great detail including any potential risks. Patient stated she currently has no complaints. Expectations throughout regarding labs, ultrasounds, and appointments have been discussed with the patient in detail. It was reiterated that the patient is to drink 6-8 glasses of water a day, eat 6 small meals a day, do not consume raw or undercooked meat, and stay away from [facility]. Patient has been consulted regarding any further do's and don'ts of . Patient voiced understanding and all questions and concerns were answered. Orders Placed This Encounter Procedures POCT urinalysis dipstick manually resulted Follow Up: Patient is to return in 4 weeks for routine OB appointment. Documented by Vikki Fisher LPN on behalf of: Catrachito Aiken DO documented in this encounter [facility] 07-05-2024 History of Present illness Narrative Headache/epigastric pain/blurry vision/swelling? no Cramping/contractions? Lower belly cramping Abnormal vaginal discharge? no Spotting/vaginal bleeding? Spotting started bright red now brown Loss or gush of fluid like your water may have broken? no Do you have cats at home? no Do you change the litter box (reason: risk of toxoplasmosis)? no Genetic testing done this here or other office? yes Have you been seen here at [facility] in a previous ? Yes Recent ER visits or hospitalizations? no Bring blood sugar log or meter with you today? (Please bring them with you for every visit at [facility]) n/a Flu vaccine (Jul-November)? no Any concerns that you would like me to mention to the provider today? Spotting in on and off [facility] Visit Note HPI: Lucila Jacques is a 33 y.o. @ 12w5d who is presenting for an office visit regarding Chief Complaint Patient presents with AMA BMI Retained IUD w/o string Patient Active Problem List Diagnosis Fatigue Obesity, Class III, BMI 40-49.9 (morbid obesity) (HCC) Gastroesophageal reflux disease without esophagitis Morbid obesity (CMS-HCC) Retained intrauterine device (IUD) during in first trimester . Her is complicated by OB History 3 Para 2 Term 2 AB Living 2 SAB IAB Ectopic Multiple Live Births 2 She reports that she is doing well. She reports normal movements and she denies LOF, contractions, vaginal bleeding, headache, blurry vision, RUQ pain and edema. The primary encounter diagnosis was Retained intrauterine device (IUD) during in second trimester. Diagnoses of Obesity affecting in second trimester, unspecified obesity type, BMI 36.0-36.9,adult, Multigravida of advanced maternal age in second trimester, Anxiety during , Depression affecting , History of 2 sections, History of knee replacement, unspecified laterality, Bariatric surgery status complicating , second trimester, Family history of clubfoot, and 12 weeks gestation of were also pertinent to this visit. She has had low risk aneuploidy screen for select aneuploidy of chromosomes 21, 13, 18 and sex chromosomes per her report. I do not have a copy of the record. REVIEW OF SYSTEMS: Head and Neck: Negative for any dizziness and headaches. Cardiovascular and Respiratory System: Denies any chest pain, shortness of breath, and coughing. Abdominal and System: Denies any abdominal pain, nausea, vomiting, vaginal bleeding, and vaginal discharge Complications: Problem List Items Addressed This Visit Other Retained intrauterine device (IUD) during in first trimester - Primary Other Visit Diagnoses Obesity affecting in second trimester, unspecified obesity type BMI 36.0-36.9,adult Multigravida of advanced maternal age in second trimester Anxiety during Depression affecting History of 2 sections History of knee replacement, unspecified laterality Bariatric surgery status complicating , second trimester Family history of clubfoot 12 weeks gestation of PMH: Past Medical History: Diagnosis Date Anxiety Arrhythmia palpitations daily, last a few seconds, without chest pain or sob, has mentioned to pcp, has not had testing Arthritis Back pain [place] involving 10-19% of body surface age 1 scarring from hot water laughlin left arm and chin and neck bilateral Depression Hip pain Joint derangement sacral illiac joint goes out of place bilateral approx twice a year, sees chiropracter, for adjustment Knee pain Migraines Obesity PONV (postoperative nausea and vomiting) PSHIST: Past Surgical History: Procedure Laterality Date ARTHROSCOPY MENISCECTOMY KNEE Left 03/30/2022 Performed by Mason Martinez DO at [facility] SECTION 06/25/2012 SECTION 10/26/2014 laparoscopic hiatal hernia repair N/A 08/05/2016 Performed by Vahe Fernandez MD at [facility] LAPAROSCOPIC SLEEVE GASTRECTOMY POSSIBLE CLOSURE OF DIAPHRAGMATIC CRURA DNM-CLINIC N/A 08/05/2016 Performed by Vahe Fernandez MD at [facility] MICRODISCECTOMY LUMBAR OB Hx: OB History Para Term AB Living 3 2 2 2 SAB IAB Ectopic Multiple Live Births 2 # Outcome Date GA Lbr Justin/2nd Weight Sex Type Anes PTL Lv 3 Current 2 Term 2014 37w0d 3.26 kg M NICCI 1 Term 2011 37w0d 3.572 kg M NICCI Complications: Polyhydramnios, Clubfoot Allergies: Allergies Allergen Reactions Amoxicillin Magnesium Hives Nsaids (Non-Steroidal Anti-Inflammatory Drug) Hives Potassium Chloride Hives Meds: Prior to Admission medications Medication Sig Start Date End Date Taking? Authorizing Provider CALCIUM CITRATE ORAL Take by mouth. Yes Not In System Ref Prov multivitamin (MULTIPLE VITAMINS DAILY ORAL) Take by mouth. Yes Not In System Ref Prov ondansetron (ZOFRAN) 4 mg tablet Take 1 tablet (4 mg total) by mouth every 8 (eight) hours as needed for nausea or vomiting. Not In System Ref Prov SH: Social History Socioeconomic History Marital status: Spouse name: Not on file Number of children: Not on file Years of education: Not on file Highest education level: Not on file Occupational History Not on file Tobacco Use Smoking status: Never Smokeless tobacco: Never Vaping Use Vaping status: Never Used Substance and Sexual Activity Alcohol use: Not Currently Comment: 1-2 drinks per month Drug use: No Sexual activity: Defer Other Topics Concern Not on file Social History Narrative Not on file Social Determinants of Health Financial Resource Strain: Low Risk (03/13/2024) Received from [facility] Overall Financial Resource Strain (CARDIA) Difficulty of Paying Living Expenses: Not hard at all Food Insecurity: No Food Insecurity (07/05/2024) Hunger Screening Food Insecurity - Worry: Never True Food Insecurity - Inability: Never True Transportation Needs: Unknown (03/13/2024) Received from [facility] PRAPARE - Transportation Lack of Transportation (Medical): Not on file Lack of Transportation (Non-Medical): No Physical Activity: Not on file Stress: Not on file Social Connections: Not on file Interpersonal Safety: Not on file Housing Instability: Unknown (03/13/2024) Received from [facility] Housing Stability Vital Sign Unable to Pay for Housing in the Last Year: Not on file Number of Places Lived in the Last Year: Not on file Unstable Housing in the Last Year: No Physical Exam: Vital Signs Vitals: 07/05/24 1145 BP: 128/69 BP Site: Left Arm BP Postition: Lying BP CUFF SIZE: L (13-17 inches) Pulse: 86 Height: 170.2 cm (5' 7.01 ) Physical Exam: Gen: Not in acute distress, alert and oriented. Eyes: Pupils equal and reactive Chest: Nonlabored breathing Cardiac: Pulse was regular on vital signs assessment Abdomen: Gravid Skin/extremities: Appears intact. No visible lesions MS:no visible edema Neuro: No focal deficits Assessment/Plan 33 y.o. @ 12w5d here for office visit regardin. Retained intrauterine device (IUD) during in second trimester Again noted on sonographic evaluation. Recommend to continue monitoring during the and for assessment at the time of delivery. She will have a repeat section. Recommend evaluation and to take it out at that time. Discussed that the IUD may come out during the if it does then to keep the sample and bring it to the attention of her power lineman to confirm intact expulsion. 2. Obesity affecting in second trimester, unspecified obesity type 3. BMI 36.0-36.9,adult Reviewed today the diagnosis as well as risks associated with obesity during . Compared with normal-weight women, obese women are at increased risk of cardiac dysfunction, proteinuria, sleep apnea, nonalcoholic fatty liver disease, gestational diabetes mellitus, and preeclampsia. Obese gravidas are at an increased risk for stillbirth. We reviewed that behavioral interventions focused on improving both diet and exercise have been shown to improve outcomes. Excess gestational weight gain is a significant risk factor for weight retention. This further increases the risk of metabolic dysfunction and pregravid obesity in future pregnancies. The IOM guidelines recommend a total weight gain of 6.8-11.3 kg (15-25 lb) for overweight women (BMI of 25-29.9). Given the limited data on weight gain by obesity class, the IOM recommendation for weight gain is 5.0-9.1 kg (11-20 lb) for all obese women. Reviewed that some women do not gain weight during and that is acceptable as long as that is interval growth. Reviewed that should not be the time to target weight loss. Early screening for glucose intolerance (gestational diabetes or overt diabetes) should be based on risk factors, including maternal BMI of 30 or greater, known impaired glucose metabolism, or previous gestational diabetes. For patients with prepregnancy BMI 40 or greater, surveillance is recommended in view of increased risk for stillbirth. 4. Multigravida of advanced maternal age in second trimester I discussed with the patient the risks of advanced maternal age as it relates to chromosomal abnormalities. She had declined aneuploidy screening this . She had sonographic evaluation today and her ultrasound showed no anomalies or soft markers for aneuploidy. I explained that ultrasound is not diagnostic of chromosomal abnormalities, however limited secondary to early gestational age. Detailed anatomic evaluation will be scheduled at 20 weeks. Reviewed aneuploidy testing that could be performed during . I explained that definitive testing can be obtained by an amniocentesis, which has a 1/800 risk of loss. We also discussed noninvasive screening via cell free DNA testing. This test can be done on maternal blood and detects DNA. There is a 1:1000 false positive rate for Trisomy 21, therefore a positive test should be confirmed with a amniocentesis. After consideration of risks versus benefits, she has declined amniocentesis. She had cell free DNA aneuploidy screen that was low risk for select aneuploidies. In addition to an increased risk for chromosomal abnormalities, women with advanced maternal age are also at higher risk for gestational diabetes, hypertensive disorders in including preeclampsia, as well as growth abnormalities, and stillbirth. Therefore, I recommend serial ultrasounds for growth every four weeks after anatomic evaluation, and testing at 32 weeks if >age 40 5. Anxiety during 6. Depression affecting No medical diagnosis of mood disorder. Reports that she has history of anxiety with her prior pregnancies however not to the point of being diagnosed with anxiety disorder. No medical management at this time. Reports that she is doing well. 7. History of 2 sections Recommend delivery via repeat section. Timing of delivery will depend on medical management during the . Recommend delivery at 39 weeks or earlier as clinically indicated. 8. History of knee replacement, unspecified laterality She is status post left-sided knee replacement in April of 2024. Was on anticoagulation for 2 weeks directly after however had stopped that secondary to nausea. Per orthopedic surgery did not require further anticoagulation. She is doing well from knee replacement standpoint. No issues currently. Recommend to continue observation. Follow-up with orthopedic if notices any worsening symptoms. She is currently undergoing physical therapy and is doing well with that. They are aware of her . Recommend to continue the same. In regards to positioning at the time of delivery recommend anesthesia consultation at that time to be initiated by primary OB team. 9. Bariatric surgery status complicating , second trimester I discussed at length with the patient that women with successful weight loss and resolution of chronic medical conditions usually do very well in . There are reports of slight increased risks of , PPROM and gestational diabetes in women with history of bariatric surgery, but these risks are felt to be confounded by residual obesity in the majority of patients. Nutritional deficiency is certainly a concern in these patients, regardless of bariatric procedure type. Most notable deficiencies occur in women following malabsorptive procedures, and are less notable following restrictive procedures like banding, which this patient has. Most common deficiencies include protein, iron, B12, folate, vitamin D and calcium. Standard recommendation is for all women with prior bariatric surgery to have these values evaluated initially in early , and supplemented as necessary. In the absence of deficiency, it is reasonable to monitor a CBC, iron, ferritin, calcium and vitamin D level each trimester. If she has issues with suboptimal weight gain during , nutrition consult would be advised. Weight loss in or inadequate weight gain have been associated with higher risk of adverse outcome. Dumping syndrome may occur following bariatric surgery after ingestion of large sugar or carbohydrate loads. This includes symptoms of bloating, nausea, vomiting, diarrhea, with consequent hypoglycemia. Alternate testing for GDM may be considered in cases where dumping syndrome is likely. Recommend screening for GDM with fingerstick blood sugar. Command obtaining fasting and 1 hour postprandial (4 times daily) fingerstick blood sugars for 1-2 weeks early in . Recommend repeat at 24-28 weeks for diagnosis of GDM. Log was given today and instruction to send to primary OB or MFM office for review. Dr. Aiken's office can send her glucometer and supplies accordingly. Recommend follow-up at 20 weeks with her detailed anatomic evaluation 10. Family history of clubfoot Her 1st baby boy was diagnosed with bilateral clubfeet however was idiopathic. She does have family history of clubfeet in her aunt as well. She underwent serial casting and is doing well otherwise. Recommend detailed anatomic evaluation at 20 weeks. 11. 12 weeks gestation of Recommendations: Aneuploidy screening low risk per patient report. I do not have that record Baby aspirin 81 mg q.day was recommended however patient is allergic and has hives. Screening for GDM by fingerstick blood sugar as per above. Recommend glucometer and supplies to be sent by Dr. Aiken's office. MFM is happy to review sugar log as needed. CBC, iron, ferritin, calcium and vitamin D level each trimester. Detailed anatomic evaluation at 20-22 weeks with MFM office visit Serial growth assessments every 4 weeks after the anatomy scan Delivery recommended at 39 weeks or earlier as clinically indicated to remove IUD at time of section. Plan reviewed with patient. She vocalized understanding all questions answered. Retained intrauterine device (IUD) during in second trimester [O26.32] The patient is to continue with routine care in your office [facility], the CDC, and other organizations representing maternal and public health professionals recommend that , , and lactating people and those considering receive the COVID-19 vaccination. Vaccination is the best method to reduce maternal and complications of SARS-CoV-2 infection. This document was created with [employer] technology. Though I make every effort to review the dictation as it is transcribed, on occasion the spoken word can be misinterpreted by the technology leading to inappropriate words, phrases, or sentences. This note is addressed to the requesting provider as a consultation for clinical guidance. Specific medical abbreviations are occasionally used and those are generally approved by the [place]?Board of?Obstetrics and?Gynecology?as well as?Vilma s abbreviations. The above plan of care was based solely on the diagnoses for which a consultation was requested. ?More frequent testing may be indicated based on her other medical/obstetrical conditions. The management of other or medical conditions is beyond the scope of requested consultation and will continue to be followed by the primary power lineman or primary care provider. Thank you for allowing me to participate in her care. Please contact me if you have any concerns. Total time spent was 45 minutes: Preparing to see the patient (e.g., review of tests) Obtaining and/or reviewing separately obtained history Performing a medically appropriate examination and/or evaluation Counseling and educating the patient/family/caregiver Ordering medications, tests, or procedures Referring and communicating with other health animal caretaker (not separately reported) Documenting clinical information in the electronic or other health record Independently interpreting results (not separately reported) and communicating results to the patient/family/caregiver Care coordination (not separately reported) documented in this encounter [facility] History of Present illness Narrative Reason for Appointment: Patient ID: Lucila Jacques is a 33 y.o. female who presents for No chief complaint on file. Patient presents today for Return OB appointment. and Consult appointment. MEDICATIONS Current Outpatient Medications Medication Instructions Calcium Citrate 150 MG capsule Orally Multiple Vitamins-Minerals (Multi Complete) capsule as directed Orally ondansetron ODT (ZOFRAN-ODT) 4 mg, Oral, Every 6 hours PRN ALLERGIES Allergies Allergen Reactions Amoxicillin-Pot Clavulanate Nausea, abdominal pain Ibuprofen Hives Magnesium Other Reaction(s): IV Nsaids Hives Other Reaction(s): Unknown Potassium Other Reaction(s): Unknown PROBLEMS Active Ambulatory Problems Diagnosis Date Noted Arthritis of left knee 04/20/2023 Chronic migraine without aura (CMS/HCC) 04/20/2023 Derangement of knee 04/20/2023 Internal derangement of right knee 04/20/2023 Genital warts 04/20/2023 Hypomagnesemia 04/20/2023 Joint mouse 04/20/2023 Mixed anxiety and depressive disorder 04/20/2023 Obesity 04/20/2023 Palpitations 04/20/2023 Peripheral venous insufficiency 04/20/2023 Sacroiliac joint pain 04/20/2023 Varicose veins of left lower extremity 04/20/[address], antepartum, first trimester 05/24/2024 with uncertain viability 05/24/2024 Resolved Ambulatory Problems Diagnosis Date Noted No Resolved Ambulatory Problems Past Medical History: Diagnosis Date Migraine headache (CMS/HCC) HISTORY PAST MEDICAL HISTORY SOCIAL HISTORY Past Medical History: Diagnosis Date Migraine headache (CMS/HCC) Social History Tobacco Use Smoking status: Never Smokeless tobacco: Never Substance Use Topics Alcohol use: Yes Drug use: Not on file FAMILY HISTORY Family History Problem Relation Name Age of Onset Diabetes Father Hypertension Father SURGICAL HISTORY Past Surgical History: Procedure Laterality Date BARIATRIC SURGERY 07/2016 SECTION, CLASSIC 2011, 2014 KNEE SURGERY Left 03/30/2022 LT knee joint mouse excision (2cmx1.7cm) medial and PFJ arthritis- Dr Martinez MICRODISCECTOMY LUMBAR 08/2017 Micro lumbectomy REVIEW OF SYSTEMS Review of Systems: Review of Systems All other systems reviewed and are negative. OBJECTIVE Objective: Physical Exam Constitutional: Appearance: Normal appearance. She is well-developed. Cardiovascular: Rate and Rhythm: Normal rate and regular rhythm. Pulmonary: Effort: Pulmonary effort is normal. Breath sounds: Normal breath sounds. Abdominal: General: Bowel sounds are normal. There is no distension. Palpations: Abdomen is soft. Tenderness: There is no abdominal tenderness. There is no guarding or rebound. Musculoskeletal: General: No swelling. Normal range of motion. Right lower leg: No edema. Left lower leg: No edema. Neurological: Mental Status: She is alert and oriented to person, place, and time. Skin: General: Skin is warm and dry. Psychiatric: Mood and Affect: Mood normal. Behavior: Behavior normal. Vitals and nursing note reviewed. Exam conducted with a awning craftsperson present. Vitals: Estimated body mass index is 37.9 kg/m as calculated from the following: Height as of 03/22/22: 5' 6 . Weight as of this encounter: 234 lb 12.8 oz. BP: 116/78 Patient's last menstrual period was 04/07/2024 (exact date). ASSESSMENT & PLAN ICD-10-CM 1. Missed menses N92.6 Type and screen ABO/Rh CBC and differential Hemoglobin A1c RPR Rubella antibody, IgG Hepatitis B surface antigen Hepatitis C antibody HIV-1 and HIV-2 antibodies Urine culture POCT , urine manually resulted POCT urinalysis dipstick manually resulted Rapid drug screen, urine Type and screen ABO/Rh Rapid drug screen, urine 2. Encounter for supervision of normal first in first trimester Z34.01 Rapid drug screen, urine Rapid drug screen, urine 3. , unspecified gestational age Z34.90 Rapid drug screen, urine Rapid drug screen, urine Patient presents today for a routine obstetrics appointment. Patient is currently 10w1d with a Estimated Date of Delivery: 01/12/25. Patient to have growth scans starting at every 4 weeks starting at 24 weeks gestation. Patient to have cervical length ultrasound and check on subchorionic hematoma. Will order base line 24 hour urine and baseline labs. Discussed M appointment and plan of care is to have repeat with IUD removal. Patient desires to continue and OB care locally at [facility] office with Dr. Aiken along with [facility]. Patient advised to take 81mg Aspirin if tolerated. Gave patient orders for early 24 hour urine and lab workup. Patient to return to clinic in 4 weeks. Documented by Mariaelena Machado LPN on behalf of: Catrachito Aiken DO documented in this encounter [facility] 05-23-2024 History of Present illness Narrative Subjective Lucila Jacques is a 33 y.o. at 6w4d with a working estimated date of delivery of 01/12/2025, by Last Menstrual Period who presents for an initial visit. This is unplanned. [facility] Team[facility] Sergei as PCP - General (Family Medicine) Victor M Lujan NP as PCP - Dee Dee Adan OB History Para Term AB Living 3 2 2 2 SAB IAB Ectopic Multiple Live Births 2 # Outcome Date GA Lbr Justin/2nd Weight Sex Type Anes PTL Lv 3 Current 2 Term CS-LTranv 1 Term CS-LTranv Her is complicated by: IUD placement Patient referred by Gynecology History Last Pap The following portions of the chart were reviewed this encounter and updated as appropriate: Review of Systems Objective Physical Exam weight: 257 lb Expected Total Weight Gain: 11 lb-19 lb Pregravid BMI: 41.50 Urine protein Urine glucose Labs Assessment/Plan Diagnoses and all orders for this visit: examination or test, positive result Amenorrhea - POCT , urine IUD check up Patient presents to office with positive test and IUD was placed approximately two weeks ago. She had a negative test before IUD placement and then 2 weeks later had a negative test before knee surgery. She is very shocked at the result. Positive test here today. To US and US verified IUD in correct position and gestational sac noted with positive heart rate. I called and spoke with Dr Aiken. If the IUD strings are visible will attempt to remove the IUD and do it very slowly. I performed speculum exam and patient wants the IUD out. The strings were not visible and I did not attempt to find them or remove the IUD. Discussion with patient and she will go to see Dr Aiken and see if he can remove the IUD. He does also recommend for patient to see [facility] For their consultation also. PVU and agrees with the plan of care. Patient referral made to see Dr Aiken. Blue education folder given. Patient educated on safe medication list. Genetic testing information given. Discussed the do's and don'ts in the blue folder. We discussed labs and what we draw and what we are testing for. Patient is also informed that we do a urine drug test. Patient also given office phone number and [facility] number to call in case of an emergency or after hours needs. PVU and all questions answered. We did discuss place of delivery. Patient should plan to go to [facility] for all services unless an emergency and they need to go to the closest ER. We can make other arrangements possibly if patient would like to deliver at another facility but I did explain I am now at [place] 100% of the time and would like to do all deliveries there. documented in this encounter [facility] 05-22-2024 Telephone encounter Note Pt had an IUD inserted a month ago and has tested positive for , she hadn't been feeling good lately and it is positive, please call to discuss the next step, in her pregancy and IUD [facility] 05-22-2024 Miscellaneous Notes Pt had an IUD inserted a month ago and has tested positive for , she hadn't been feeling good lately and it is positive, please call to discuss the next step, in her pregancy and IUD documented in this encounter [facility] 02-27-2024 Note Education Materials Gastroenterology Laparoscopic cholecystectomy, [...] these instructions at home: Medicines ? Take ekez-dui-wmrhzkb and prescription medicines only as told by [...] keep your urine pale yellow. ? Take bdso-bov-lakiotp or prescription medicines. ? Eat foods that [...] and water are not available, use hand radar engineering teacher. ? Place dry dressings as needed. ? Leave skin glue in place. ? Do not take baths, swim, or use a hot tub until your health care provider approves. - You may shower starting Monday, February 27. ? Check your incision area [...] provider. Document Revised: 03/15/2022 Document Reviewed: 03/15/2022 [employer] Patient Education ? 2022 [employer] [facility] 02-27-2024 Note [facility] Clinical Discharge Summary PERSON INFORMATION Name LUCILA JACQUES Age 33 Years 1990 Sex FEMALE Language Iranian PCP Provider, None Marital Status Med Service Observation Acct# Arrival 02/26/2024 22:40:28 Visit Reason Abdominal pain; ACUTE CHOLECYSTITIS Acuity LOS 000 10:25 Address: [address] [address] Comment: PROVIDER INFORMATION VITALS INFORMATION Vital Sign [...] ibuprofen Medication List: New Medications [id number], [address], [place] [id number], [phone] acetaminophen-hydrocodone (acetaminophen-hydrocodone 325 mg-5 mg oral tablet) [...] range between ( 1.3 and 2.9 ) Curry Abs#: 0.6 x103/mcL -- Normal range between ( 0.0 and 0.8 ) Auto Baso %: 0.4 % -- Normal range between ( 0.2 and 2.0 ) Auto Curry %: 8 % -- Normal range between [...] Anion Gap: 1 (more content not included)... [facility] 01-15-2024 Note [id number] [facility] 01-12-2024 Note [facility] SURGERY Clinical Discharge Summary PERSON INFORMATION Name LUCILA JACQUES Age 33 Years 1990 Sex FEMALE Language Iranian PCP Provider, None Marital Status Med Service Pain Management Surgery Acct# Arrival 01/12/2024 10:59:54 Visit Reason GENICULAR PAIN Acuity LOS 004 01:11 Address: [address] [address] Comment: PROVIDER INFORMATION VITALS INFORMATION Vital Sign [...] 9:20 AM Confirmed DIAGNOSIS Comment: PHYS DOC [facility] 01-11-2024 Note [id number] The history of present illness has been reviewed. There are no changes document. [Electronically Signed on: 01/12/2024 11:34 EDT] ALEC PATEL MD [Verified on: 01/12/2024 11:34 EDT] ALEC PATEL MD [Transcribed on: 01/11/2024 13:06 EDT] [facility] 08-23-2023 Note Date of Telehealth V isit: 08/23/23 The patient was notified that using 3rd constitution party telecommunication application (e.g. backstitch) is not HIPAA compliant and may carry some privacy risks: Yes This visit was conducted cxeh-xg-exqd with the use of audio and video [...] shortness of breath. She has been using qows-dnw-ucqctdg medications with minimal relief of symptoms. ROS: [...] EMR, and coordinating care. Ching Brooks PA-C [facility] 07-11-2023 Note [facility] Telemedicine Visit Date of Telehealth Visit: 07-11-2023 The patient was notified that using 3rd constitution party telecommunication application (e.g. backstitch) is not HIPAA compliant and may carry some privacy risks This visit was conducted xgtt-bq-txed with the use of audio and video [...] migraines. Patient states that she is taken fqbi-jqp-okrhmsv Tylenol and Tylenol PM. She has a [...] today's date. Greater than 16 minutes spent yatf-xk-xxnu assessing patient, reviewing chart and discussing plan of care including treatment options. Care collaborated all questions answered. Rekha Mustafa PA-C Portions of this chart have been completed with voice recognition software, please excuse any errors. [facility] Evaluation note No assessment inform ation available [facility] Work Phone: Evaluation note Diagnosis Onset Date Primary osteoarthritis of left knee acute [facility] Work Phone: Evaluation note* Diagnosis Onset Date Resolution Status Primary osteoarthritis of left knee acute Primary osteoarthritis of left knee acute [facility] Work Phone: Evaluation note* Diagnosis Onset Date Resolution Status Primary osteoarthritis of left knee acute Status post left partial knee replacement [facility] Work Phone: Evaluation note* Diagnosis Retained intrauterine device (IUD) during in second trimester- Primary Obesity affecting in second trimester, unspecified obesity type BMI 36.0-36.9,adult Multigravida of advanced maternal age in second trimester Anxiety during Depression affecting History of 2 sections History of knee replacement, unspecified laterality Bariatric surgery status complicating , second trimester Family history of clubfoot 12 weeks gestation of documented in this encounter [facility] SystemEvaluation note* Diagnosis Retained intrauterine device (IUD) during in second trimester- Primary BMI 36.0-36.9,adult Multigravida of advanced maternal age in second trimester [facility]* Diagnosis Onset Date Resolution Status Primary osteoarthritis of left knee acute Status post left partial knee replacement acute Status post left partial knee replacement acute [facility] Work Phone: Evaluation note* Diagnosis 14 weeks gestation of Second trimester state, incidental documented in this encounter [facility] HealthcareEvaluation [facility]* Diagnosis Exposure to STD Need for maternal serum alpha-protein (MSAFP) screening Screening, , for anatomic survey Encounter for anatomic survey Second trimester state, incidental 18 weeks gestation of documented in this encounter [facility] HealthcareEvaluation note* Diagnosis 21 weeks gestation of - Primary Retained intrauterine device (IUD) during in second trimester History of gastric bypass Obesity affecting in second trimester, unspecified obesity type with history of section, antepartum Multigravida of advanced maternal age in second trimester documented in this encounter [facility] System[facility] note* Diagnosis 21 weeks gestation of - Primary Retained intrauterine device (IUD) during in second trimester History of gastric bypass Multigravida of advanced maternal age in second trimester documented in this encounter [facility] System[facility] note* Diagnosis examination or test, positive result- Primary IUD check up Amenorrhea Absence of menstruation documented in this encounter [facility] HealthcareEvaluation note* Diagnosis Missed menses Encounter for supervision of normal first in first trimester , unspecified gestational age Encounter for screening for cervical length complicated by intrauterine device (IUD) induced hypertension, antepartum Transient hypertension of , antepartum Multigravida of advanced maternal age in first trimester documented in this encounter [facility] HealthcareEvaluation note* Diagnosis Second trimester state, incidental 25 weeks gestation of with normal glucose tolerance test (GTT) Diabetes mellitus screening Screening for diabetes mellitus Retained intrauterine device (IUD) during in second trimester documented in this encounter [facility] HealthcareInstructionsNot on filedocumented in [facility] SystemInstructionsNot on filedocumented in this encounterProGreen [facility] SystemInstructionsNot on filedocumented in this encounterHol[facility] Instructions* Attachments The following attachments cannot be sent through Care Everywhere. * Preeclampsia (Iranian) * Movement (Iranian) documented in [facility] SystemInstructionsNot on file documented [facility] Assessments Diagnosis History of bariatric surgery Bariatric surgery status Health care maintenance Unspecified general medical examination Advance Directives No Advanced Directives Records FoundDocuments on File Type Date Recorded Patient Retirement Officer Expl anation Advance Directives and Living Will Power of Correctional Agency Director Advance Directive Response Recorded Date/ Time Advance Directives No July 3:35pm Advance Directive Response Recorded Date/ Time Advance Directives No March 26 4 9:12am Date Activated Date Inactivated Comments 08/05/2016 3:21 PM 08/07/2016 1:33 PM Date Activated Date Inactivated Comments 08/05/2016 3:21 PM 08/07/2016 1:33 PM Summary Purpose Family History No Family History [...] knee Status post left partial knee replacement Chief Complaint Prolonged M17.12 - Unilateral primary osteoarthritis, left k Preop L Medial uni vs L TKA H&P LEFT MEDIAL UNI VS LTKA left knee pain left knee pain [facility] PT 2 WK POST OP LT MEDIAL UNI VS LTKA 4 WK RECHECK LT MEDIAL UNI VS LTKA Z96.652 - Presence of left artificial knee joint 5-6 WEEKS Reason for Visit Primary osteoarthrit is of left knee Status post left partial knee replacement Status post left partial knee replacement Reason for Referral Specialty Diagnoses / Procedures Referred By Ivan gongora Referred To Contact Maternal and Medicine Diagnoses Retained intrauterine device (IUD) during in second trimester BMI 36.0-36.9,adult Multigravida of advanced maternal age in second trimester Procedures US MFM with or without consult Mishel Segovia MD [address] [place] [address] [facility]aternal [facility] [address] [place] [address] Referral ID Status Reason Start Date Expiration Date V isits Requested Visits Authorized [id number] Pending Review 07/05/2024 07/05/2025 1 1 Additional Source Comments INFORMATION SOURCE (unrecogn ized section and content) DATE CREATED AUTHOR 10/18/2021 [facility] DATE CREATED AUTHOR AUTHOR'S ORGANIZ ATION 08/30/2023 [facility] DATE CREATED AUTHOR AUTHOR'S ORGANIZ ATION 02/02/2024 [facility] DATE CREATED AUTHOR AUTHOR'S ORGANIZ ATION 03/16/2024 [facility] DATE CREATED AUTHOR AUTHOR'S ORGANIZ ATION 06/06/2024 [facility] DATE CREATED AUTHOR AUTHOR'S ORGANIZ ATION 06/13/2024 [facility] DATE CREATED AUTHOR AUTHOR'S ORGANIZ ATION 09/07/2024 [facility] DATE CREATED AUTHOR AUTHOR'S ORGANIZ ATION 10/07/2024 [facility] DATE CREATED AUTHOR AUTHOR'S ORGANIZ ATION 10/16/2024 [facility] Care Teams (unrecognized sec tion and content) [...] Care Provider Active Start: June 11, 2024 Sanat Estrada II, MD Attending Provider Active Start: June 11, 2024 Team Status: Inactive Member Role Status Dates NON STAFF Primary Care Provider Active Start: June 11, 2024 End: June 11, 2024 Santa Estrada II, MD Attending Provider Active Start: June 11, 2024 End: June 11, 2024 Ssds Mk 2 Advanced Operator Relationship Specialty Start Date End Date Pcp, [place] [address] PCP - General Family Medicine 09/04/23 Ssds Mk 2 Advanced Operator Relationship Specialty Start Date End Date Pcp, [place] [address] PCP - General Family Medicine 09/04/23 Ssds Mk 2 Advanced Operator Relationship Specialty Start Date End Date Pcp, [place] [address] PCP - General Family Medicine 09/04/23 Ssds Mk 2 Advanced Operator Relationship Specialty Start Date End Date Unallocated, Haley Garcia MD [address] [place] [address] PCP - General Family Medicine 02/01/24 Victor M Lujan HOSPITAL INSURANCE CLERK [address] [place] [address] PCP [facility] 03/25/24 Team Status: Inactive Member Role Status Dates NON STAFF Primary Care Provider Active Start: July 17, 2024 End: July 17, 2024 Santa Estrada II, MD Attending Provider Active Start: July 17, 2024 End: July 17, 2024 Ssds Mk 2 Advanced Operator Relationship Specialty Start Date End Date Unallocated, Haley Garcia MD [address] [facility] [place] [place] [address] PCP - General Family Medicine 02/01/24 Victor M Lujan, HOSPITAL INSURANCE CLERK [address] [place] [address] PCP - [facility] 03/25/24 Ssds Mk 2 Advanced Operator Relationship Specialty Start Date End Date Unallocated, Haley Garcia MD [facility] [place] [address] PCP - General Family Medicine 02/01/24 Victor M Lujan, HOSPITAL INSURANCE CLERK [address] [place] [address] PCP - [facility] 03/25/24 Ssds Mk 2 Advanced Operator Relationship Specialty Start Date End Date Unallocated, Haley Garcia MD [facility] [place] [address] PCP - General Family Medicine 02/01/24 Victor M Lujan HOSPITAL INSURANCE CLERK [address] [place] [address] PCP - [facility] 03/25/24 Ssds Mk 2 Advanced Operator Relationship Specialty Start Date End Date Unallocated, Haley Garcia MD [facility] [place] [address] PCP - General Family Medicine 02/01/24 Victor M Lujan NP [address] [place], [place] [address] [address] PCP - [facility] 03/25/24 Ssds Mk 2 Advanced Operator Relationship Specialty Start Date End Date Pcp, [place] [address] PCP - General Family Medicine 09/04/23 Ssds Mk 2 Advanced Operator Relationship Specialty Start Date End Date Pcp, [place] [address] PCP - General Family Medicine 09/04/23 Ssds Mk 2 Advanced Operator Relationship Specialty Start Date End Date Unallocated, Haley Garcia MD [facility] [place] [address] PCP - General Family Medicine 02/01/24 Victor M Lujan NP [address] [facility] [place] [address] PCP - [facility] 03/25/24 Ssds Mk 2 Advanced Operator Relationship Specialty Start Date End Date Unallocated, Haley Garcia MD [address] [place] [address] PCP - General Family Medicine 02/01/24 Victor M Lujan, NASEEM [address] [facility] [place] [address] PCP - [facility] 03/25/24 Ssds Mk 2 Advanced Operator Relationship Specialty Start Date End Date Unallocated, Haley Garcia MD [facility] [place] [address] PCP - General Family Medicine 02/01/24 Victor M Lujan NP [address] [place] [address] PCP - [facility] 03/25/24 Ssds Mk 2 Advanced Operator Relationship Specialty Start Date End Date Unallocated, Haley Garcia MD [address] [place] [address] PCP - General Family Medicine 02/01/24 Victor M Lujan NP [address] [place] [address] PCP - [facility] 03/25/24 Ssds Mk 2 Advanced Operator Relationship Specialty Start Date End Date Unallocated, Haley Garcia MD [address] [place] [address] PCP - General Family Medicine 02/01/24 Victor M Lujan, HOSPITAL INSURANCE CLERK [address] [place] [address] PCP - [facility] 03/25/24 Ssds Mk 2 Advanced Operator Relationship Specialty Start Date End Date Unallocated, Haley Garcia MD [address] [place] [address] PCP - [facility] 02/01/24 Victor M Lujan, HOSPITAL INSURANCE CLERK [address] [place], [place] [id number] PCP - [facility] 03/25/24 Ssds Mk 2 Advanced Operator Relationship Specialty Start Date End Date Unallocated, Haley Garcia MD [facility] [place] [address] PCP - [facility] 02/01/24 Victor M Lujan, HOSPITAL INSURANCE CLERK [address] [place] [address] PCP [facility] 03/25/24 Ssds Mk 2 Advanced Operator Relationship Specialty Start Date End Date Unallocated, Haley Garcia MD [address] [place] [address] PCP - [facility] 02/01/24 Victor M Lujan, HOSPITAL INSURANCE CLERK [address] [place] [address] PCP [facility] 03/25/24 Goals (unrecognized section and content) Goals may be documented in a n alternate sectionGoals may be documented in an alternate sectionGoals may be documented in an alternate sectionGoals may be documented in an alternate sectionGoals may be documented in an alternate sectionGoals may be documented in an alternate sectionGoals may be documented in an alternate sectionNot on filedocumented as of this encounterNot on filedocumented as of this encounterNot on filedocumented as of this encounterNot on filedocumented as of this encounterNot on filedocumented as of this encounter Reason for Visit (unrecogniz ed section and content) Reason Comments AMA BMI Retained IUD w/o string Reason Comments Routine Visit Reason Comments Retained IUD AMA Reason Comments Initial Visit FOR RECORDS PERTAINING TO PATIENTS WHO ARE [...] BE BASED ON THE PRIMARY CLINICAL RECORDS. [facility]. provides no warranty or guarantee of the accuracy or completeness of information in this document.
[2024-10-25 10:32] LABS: Basophils Percent Auto 0.3 % (0.2-2.0); Eosinophils Absolute Auto 0.2 10^3/uL (0.0-0.7); Eosinophils Percent Auto 1.6 % (0.9-7.0); Hematocrit 33.8 % (36.0-48.0); Hemoglobin 11.4 g/dL (12.0-16.0); Immature Granulocytes Abs Auto 0.05 10^3/uL (0.00-0.03); Immature Granulocytes Pct Auto 0.5 % (0.0-0.5); Lymphocytes Absolute Auto 1.9 10^3/uL (1.2-3.8); Lymphocytes Percent Auto 18.6 % (20.5-60.0); Mean Corpuscular HGB Conc 33.7 g/dL (29.9-35.2); Mean Corpuscular Hemoglobin 29.8 pg (26.7-34.0); Mean Corpuscular Volume 88.5 fL (81.0-99.0); Mean Platelet Volume 8.9 fL (9.5-13.5); Monocytes Absolute Auto 0.9 10^3/uL (0.3-0.8); Monocytes Percent Auto 8.6 % (1.7-12.0); Neutrophils Absolute Auto 7.3 10^3/uL (1.4-6.5); Neutrophils Percent Auto 70.4 % (43.0-75.0); Platelet Count 228 10^3/uL (150-450); Red Blood Count 3.82 10^6/uL (4.20-5.40); Red Cell Distribution Width 12.8 % (11.0-15.0); White Blood Count 10.4 10^3/uL (4.0-11.0)
== END 2024-10-25 09:59 | disposition home or self-care (01) ==
LOC: LAB 10:02
PROVIDERS: Visit Provider Obstetrics & Gynecology
DX: Z13.1 Encounter for screening for diabetes mellitus (principal)
CPT/HCPCS: 36415; 85025

== ENCOUNTER 2024-11-21 12:28 | Observation (INO) | payer OTHER, SELFPAY ==
--- NOTE | 2024-11-21 12:44 | US_ITS ---
[place] [id number] Patient Name: LUCILA JAMES MRN: [id number] date: 1990 Sex: F Assigned Patient Location: [facility] Current Patient Location: Accession/Order Number: [id number] Exam Date: 11/21/2024 18:27 Report Date: 11/21/2024 18:32 At the request of: BRYAN BALDERRAMA DO Procedure: US OB growth US OB BPP w non-stress, US OB growth 11/21/2024 1:13 PM SIGNS AND SYMPTOMS: ^01/06/25 ^leaking fluid, advanced maternal age COMPARISON: None. TECHNIQUE: Limited pelvic ultrasound using transvesical sonography. FINDINGS: An intrauterine is identified. The visualized fetus has an estimated gestational age of 32 weeks and 2 days. A heart rate is identified at 138 bpm. A normal amount of amniotic fluid is present. There is no evidence for placenta previa or subchorionic hemorrhage. The fetus is in cephalic presentation. Estimated weight is 4 lbs. 4 oz. Pelvic survey reveals no gross abnormalities. Biophysical profile: breathing movements: 2/2 Gross body movements: 2/2 tone: 2/2 Amniotic fluid volume 2/2 (amniotic fluid index: 9.9 cm) US/US OB growth IMPRESSION: Single live IUP with an estimated gestational age of 32 weeks and 2 days with a normal heart rate. Estimated weight is 4 lbs. 4 oz. Biophysical profile score: 8/8 Amniotic fluid index: 9.9 cm (normal) Impression dictated by: Ruddy Esquivel M.D.11/21/2024 6:32 PM Dictation Location: [employer] Electronically authenticated by: [id number] Y Date: 11/21/2024 18:32
--- NOTE | 2024-11-21 12:44 | US_ITS ---
[place] [id number] Patient Name: LUCILA JAMES MRN: [id number] date: 1990 Sex: F Assigned Patient Location: [facility] Current Patient Location: Accession/Order Number: [id number] Exam Date: 11/21/2024 18:27 Report Date: 11/21/2024 18:32 At the request of: BRYAN BALDERRAMA DO Procedure: US OB growth US OB BPP w non-stress, US OB growth 11/21/2024 1:13 PM SIGNS AND SYMPTOMS: ^01/06/25 ^leaking fluid, advanced maternal age COMPARISON: None. TECHNIQUE: Limited pelvic ultrasound using transvesical sonography. FINDINGS: An intrauterine is identified. The visualized fetus has an estimated gestational age of 32 weeks and 2 days. A heart rate is identified at 138 bpm. A normal amount of amniotic fluid is present. There is no evidence for placenta previa or subchorionic hemorrhage. The fetus is in cephalic presentation. Estimated weight is 4 lbs. 4 oz. Pelvic survey reveals no gross abnormalities. Biophysical profile: breathing movements: 2/2 Gross body movements: 2/2 tone: 2/2 Amniotic fluid volume 2/2 (amniotic fluid index: 9.9 cm) US/US OB BPP w non-stress IMPRESSION: Single live IUP with an estimated gestational age of 32 weeks and 2 days with a normal heart rate. Estimated weight is 4 lbs. 4 oz. Biophysical profile score: 8/8 Amniotic fluid index: 9.9 cm (normal) Impression dictated by: Ruddy Esqiuvel M.D.11/21/2024 6:32 PM Dictation Location: [employer] Electronically authenticated by: [id number] Y Date: 11/21/2024 18:32
[2024-11-21 13:59] LABS: Amnisure NEGATIVE (NEGATIVE); Internal Control Within Normal Limits
== END 2024-11-21 14:10 | disposition home or self-care (01) ==
PROVIDERS: Admitting Provider Obstetrics & Gynecology; Visit Provider Obstetrics & Gynecology
DX: Z03.71 Encounter for suspected problem with amniotic cavity and membrane ruled out (principal)
CPT/HCPCS: 76816; 76818; 84112; G0378; G0379

== ENCOUNTER 2024-11-25 02:29 | Outpatient (OUT) | payer OTHER, SELFPAY ==
--- NOTE | 2024-11-25 | US_ITS ---
[address] [address] Patient Name: LUCILA JAMES MRN: [id number] date: 1990 Sex: F Assigned Patient Location: [facility] Current Patient Location: [facility] Accession/Order Number: [id number] Exam Date: 11/25/2024 16:14 Report Date: 11/25/2024 16:15 At the request of: BRYAN BALDERRAMA DO Procedure: US OB BPP w non-stress Biophysical profile. Reason for exam: IUD in place with current . COMPARISON: BPP 11/21/2024. TECHNIQUE: Transabdominal imaging of the gravid uterus was obtained. FINDINGS: The analytics director reports a BPP of 8 out of 8. ISAIAH 6.7 cm heart rate 140 bpm. US/US OB BPP w non-stress IMPRESSION: BPP 8 out of 8. Impression dictated by: Haile Palacio Jr., D.O.11/25/2024 4:15 PM Dictation Location: [facility] Electronically authenticated by: [id number] Y Date: 11/25/2024 16:15
--- OUTSIDE RECORDS SUMMARY | 2024-11-25 02:32 | XMS_ITS | CCD ---
Author Organization [facility] Care Team Providers Care Complex Care Nurse Practitioner Name Role Phone Yesica Khan Primary Care Provider ROCOÍ GONZALEZ Referring Unavailable YESICA KHAN Primary Care Unavailable ROCÍO GONZALEZ Referring Unavailable YESICA KHAN Primary Care Unavailable DENISE TAYLOR Referring Unavailable Edgardo MAJANO, Audra Burns Attending Sravanthi Patel MD, Alec Sethi Attending Charles MAJANO, Audra Burns Attending Sravanthi shell NON STAFF Primary Care Provider UnavailMD Santa Whiteside II Attending Provider MD Muarizio Mast Attending Provider NO FAMILY, PHYSICIAN Primary Care Provider MD Santa Rebolledo II Referring Provider MD Santa Estrada II Attending Provider NON STAFF Primary Care Provider Unavailabl e NON STAFF Primary Care Unavailable Santa Estrada II Attending Unavailabl e Santa Estrada II Admitting Unavailabl e Santa Estrada II Admitting Unavailabl e NON STAFF Primary Care Unavailable Santa Estrada II Attending Unavailabl e Santa Estrada II Admitting Unavailabl e NON STAFF Primary Care Unavailable Santa Estrada II Attending Unavailabl e NON STAFF Primary Care Unavailable Santa Estrada II Attending UnavailSanta Whiteside II Admitting Unavailnikolay e Maurizio Mast Admitting Unavailable Maurizio Mast Attending Unavailable Santa Estrada II Admitting Unavailabl e NON STAFF Primary Care Unavailable Santa Estrada II Attending Unavailabl e NO FAMILY, PHYSICIAN Primary Care Unavailable Santa Estrada II Admitting UnavailSanta Whtieside II Attending UnavailSanta Whiteside II Referring Unavailabl e Unallocated , Haley Provider Primary Care Provi sharla Lenka WEIGHER AND CRUSHER, Victor M Worley Unavailable NON STAFF Primary Care Provider UnavailMD Santa Whiteside II Attending Provider ATTILA, CATRACHITO R Referring Unavailable PCP, NOT IN SYSTEM Primary Care Unavailable LEXI ROBERTSON Attending Unavailable AILYNLEXI Hoyt Referring Unavailable PCP, NOT IN SYSTEM Primary Care Unavailable ATTILA, CATRACHITO R Referring Unavailable PCP, NOT IN SYSTEM Primary Care Unavailable MOUSSA, MISHEL NADIM Attending Unavailable ATTILA, CATRACHITO R Referring Unavailable PCP, NOT IN SYSTEM Primary Care Unavailable CHRISTEN REID Attending Unavailable ATTILA, CATRACHITO R Referring Unavailable PCP, NOT IN SYSTEM Primary Care Unavailable MOUSSA, MISHEL NADIM Attending Unavailable ATTILA, CATRACHITO R Referring Unavailable PCP, NOT IN SYSTEM Primary Care Unavailable Unallocated , Haley Provider Primary Care Provi sharla SANTA ESTRADA Referring Unavaila ble PCP, NOT IN SYSTEM Primary Care Unavailable [address] [place] [address], [facility] Referring Unavailable PCP, NOT IN SYSTEM Primary Care Unavailable ATTILA, CATRACHITO R Referring Unavailable PCP, NOT IN SYSTEM Primary Care Unavailable Pcp, Not In System Primary Care Provider Unavail able Peter Booth Attending Unavailable Provider, None Primary Care Unavailable Lawrence, Audra M Admitting Unavailable Lawrence, Audra M Attending Unavailable Provider, None Primary Care Unavailable Provider, None Primary Care Unavailable Maurizio Mast Admitting Unavailable Maurizio Mast Attending Unavailable Juliano Peterson Consulting Unavailable Lawrence, Audra M Admitting Unavailable Lawrence, Audra M Attending Unavailable Provider, None Primary Care Unavailable Lawrence, Audra M Attending Unavailable Provider, None Primary Care Unavailable Lawrence, Audra M Admitting Unavailable KINDLALEC F Admitting Unavailable KINDLALEC F Attending Unavailable Provider, None Primary Care Unavailable Provider, None Primary Care Unavailable Randy Walker Admitting Unavaila Randy Landers Attending Unavaila ble Peter oBoth Attending Unavailable Provider, None Primary Care Unavailable ATTILA, CATRACHITO Attending Unavailable ATTILA, CATRACHITO Attending Unavailable GENEVIEVE DONOVAN Attending Unavailable ATTILA, CATRACHITO Attending Unavailable SANDRITA BOWERS Referring Unavailable SANDRITA BOWERS Attending Unavailable SANDRITA BOWERS Attending Unavailable SANDRITA BOWERS Attending Unavailable VICTOR M LUJAN Attending Unavailable VICTOR M LUJAN Referring Unavailable VICTOR M LUJAN Attending Unavailable ATTILA, CATRACHITO Attending Unavailable CATRACHITO AIKEN Attending Unavailable Allergies Allergy Classification Reported Allergen(s) Allergy Type Date of Onset Reaction(s) Facility Magnesium (1 source) Magnesium Drug Allergy 4 [facility] NSAIDs (1 source) Ibuprofen Drug Allergy 4 [facility] Potassium (1 source) Potassium Drug Allergy 4 [facility] (2 sources) Magnesium-Conta ining Compounds Propensity to adverse reactions to drug 9 [place], [place] (20 sources) Ibuprofen; Translations: [ibuprofen] Drug Allergy 9 [place], [place] (1 source) Potassium-Conta ining Compounds Propensity to adverse reactions to drug 0 [place] (1 source) ALLERGIES NOT ON FILE; Translations: [ALLERGIES NOT ON FILE] Propensity to adverse reactions (disorder) [facility] Repository (20 sources) Magnesium; Translations: [magnesium] Drug Allergy 2 [facility] (20 sources) Potassium; Translations: [potassium] Drug Allergy 3 [facility] (9 sources) Contrast media Allergy to substance 4 [facility] (6 sources) NSAIDS (Non-Steroidal Anti-Inflamma Allergy to substance 4 [facility] (1 source) Ibuprofen Drug Allergy 4 [facility] Repository (20 sources) Non-steroidal anti-inflammato ry agent Drug Allergy 3 [facility] Work Phone: (20 sources) Amoxicillin-Pot Clavulanate Drug Intolerance 1 [facility] Healthcare (20 sources) Amoxicillin; Translations: [AMOXICILLIN] Drug Allergy 4 [facility] Repository (10 sources) NSAIDs; Translations: [NSAIDS (NON-STEROIDAL ANTI-INFLAMMATO RY DRUG)] Propensity to adverse reactions to drug (disorder) 2 Hives [facility] Rep[facility] (20 sources) Potassium Chloride; Translations: [POTASSIUM CHLORIDE] Drug Allergy 2 Hives [facility] Repository (11 sources) Iodinated Contrast Media Drug Intolerance 4 Hives, Itching, Rash [facility] Medications Current Medications Medication Drug Class(es) Dates Sig (Normalized) Sig (Original) acetaminophen 500 mg oral tablet (20 sources) Start: 04-24-2024 take 2 tablets by [...] mouth Daily 08/12/2024 Discontinued (Therapy completed) levonorgestrel 0.006522 mg/hr intrauterine system (2 sources) Progestin, Progestin-containing Intrauterine Device Levonorgestrel (LILETTA, 52 MG,) 19.5 MCG/DAY IUD by Intrauterine route 0 Active Multiple Vitamins-Minerals (Multi Complete) capsule (20 sources) Multiple Vitamins-Minerals (Multi Complete) capsule as directed Orally Active Multivitamin (Daily Multi-Vitamin) tablet (9 sources) Start: 2023 take 1 tablet by mouth once daily Multivitamin (Daily Multi-Vitamin) tablet Active 1 TAB PO Daily April 15, 2024 12:00am Multivitamin preparation (8 sources) multivitamin (MULTIPLE VITAMINS DAILY ORAL) Take by mouth. Active Clarinda (No Known Home Meds) (4 sources) Start: 2019 Clarinda (No Known Home Meds) Active November 14, [...] BED docusate sodium 50 mg / sennosides, retirement 8.6 mg oral tablet (6 sources) Start: [...] August 30, 2017 12:44pm polyethylene glycol 3350 31649 mg powder for oral solution (6 sources) [...] attack] Onset: 0 01-05-2020 Chronic Esophageal disorders (9 sources) Gastroesophageal reflux disease without esophagitis; Translations: [Gastro-esophageal reflux disease without esophagitis] Onset: 6 11-12-2019 Chronic Fluid and electrolyte disorders (13 sources) Hypokalemia; Translations: [Hypokalemia] 09-06-2023 Episodic Headache; including migraine (20 sources) Chronic migraine without aura; Translations: [Chronic [...] source) Mood disorders; Translations: [Depression, unspecified] Onset: 4 Nonspecific chest pain (13 sources) Chest pain; Translations: [Chest pain, unspecified] 09-06-2023 Episodic Osteoarthritis (20 sources) Osteoarthritis of left knee joint; Translations: [Unilateral primary osteoarthritis, left knee] Onset: 3 02-15-2024 Chronic Osteoporosis (11 sources) Osteoporosis; Translations: [Age-related osteoporosis without current pathological fracture] Onset: 4 03-12-2024 Chronic Other aftercare (10 sources) Long-term current use of drug therapy; Translations: [Other rail washer (current) drug therapy] 03-12-2024 Episodic Other complications of (1 source) Obesity complicating , second trimester; Translations: [Obesity complicating , second trimester] Onset: 4 Chronic Other complications of (1 source) Obesity complicating , unspecified trimester; Translations: [Obesity complicating , unspecified trimester] Onset: 4 Chronic Other complications of (4 sources) Maternal obesity complicating , childbirth and the puerperium, antepartum; Translations: [Obesity complicating , second trimester] Onset: 4 07-05-2024 Chronic Other complications of (20 sources) Retained intrauterine contraceptive device in ; Translations: [Retained intrauterine contraceptive device in , first trimester] Onset: 4 05-24-2024 Episodic Other complications of (2 sources) Retained [...] trimester] Onset: 4 Episodic Other complications of (7 sources) Multigravida of advanced maternal age; Translations: [Supervision of elderly multigravida, first trimester] 06-17-2024 Episodic Other connective tissue disease (4 sources) [...] joint] Onset: 4 Chronic Other gastrointestinal disorders (2 sources) Bariatric surgery status; Translations: [Bariatric surgery status] Onset: 4 Episodic Other gastrointestinal disorders (4 sources) History of bypass of stomach; Translations: [Bariatric surgery status] Onset: 4 09-04-2024 Episodic Other lower respiratory disease (13 sources) Dyspnea; Translations: [Dyspnea, unspecified] 09-06-2023 Episodic Other non-traumatic joint disorders (20 sources) Loose body in joint; Translations: [Loose body in unspecified joint] Onset: 3 04-20-2023 Chronic Other nutritional; endocrine; and metabolic disorders (9 sources) Morbid obesity; Translations: [Morbid (severe) obesity due to excess calories] Onset: 6 09-13-2019 Chronic Other nutritional; endocrine; and metabolic disorders (20 sources) Hypomagnesemia; Translations: [Hypomagnesemia] Onset: 3 04-20-2023 Chronic Other nutritional; endocrine; and metabolic disorders (20 sources) Obesity; Translations: [Obesity, unspecified] Onset: 3 04-20-2023 Chronic Other nutritional; endocrine; and metabolic disorders (1 source) Body mass index (BMI) 36.0-36.9, adult; Translations: [Body mass index (BMI) 36.0-36.9, adult] Onset: 4 Chronic Other nutritional; endocrine; and metabolic disorders (8 sources) Body mass index 40+ - severely obese; Translations: [Morbid (severe) obesity due to excess calories] Onset: 6 04-18-2016 Chronic Other nutritional; endocrine; and metabolic disorders (2 sources) Body mass index 30+ - obesity; Translations: [Body mass index (BMI) 36.0-36.9, adult] 07-05-2024 Chronic Other and delivery including normal (18 sources) Second trimester ; Translations: [Encounter for [...] unspecified] Onset: 3 Episodic Previous (4 sources) Maternal care for unspecified type scar from previous delivery; Translations: [] Onset: 4 09-04-2024 Episodic Residual codes; unclassified (13 sources) History of arthroscopy of knee joint; Translations: [Other specified postprocedural states] 02-15-2024 Episodic Residual codes; unclassified (2 sources) Gestation period, 14 weeks; Translations: [14 weeks gestation of ] 07-16-2024 Episodic Residual codes; unclassified (2 sources) Gestation period, 18 weeks; Translations: [18 weeks gestation of ] 08-12-2024 Episodic Residual codes; unclassified (2 sources) 21 weeks gestation of ; Translations: [21 weeks gestation of ] Onset: 4 Episodic Residual codes; unclassified (1 source) History [...] [25 weeks gestation of ] 10-01-2024 Episodic Residual codes; unclassified (2 sources) Gestation period, 30 weeks; Translations: [30 weeks gestation of ] 11-07-2024 Episodic Residual codes; unclassified (3 sources) Gestation period, 21 weeks; Translations: [21 weeks gestation of ] 09-04-2024 Episodic Residual codes; unclassified (2 sources) Gestation period, 32 weeks; Translations: [32 weeks gestation of ] 11-21-2024 Episodic Syncope (13 sources) Near syncope; Translations: [Syncope and collapse] 09-06-2023 Episodic Unclassified (2 sources) Patient encounter status; Translations: [Health care maintenance] Onset: 0 01-05-2020 Unclassified (1 source) IUD in place in Onset: 4 Past or Other Problems Problem Classification Problem Date Documented Da te Episodic/Chronic Administrative/social admission (1 source) Encounter for pre-employment examination; Translations: [Encounter for pre-employment examination] Onset: 07-10-2024 Episodic Cardiac dysrhythmias (20 sources) Palpitations; Translations: [Palpitations] Onset: 04-20-2023 04-20-2023 Episodic Contraceptive and procreative management (2 sources) Intrauterine contraceptive device in situ; Translations: [Encounter for routine checking of intrauterine contraceptive device] 05-30-2024 Episodic Malaise and fatigue (8 sources) Fatigue; Translations: [Other fatigue] Onset: 04-18-2016 04-18-2016 Episodic Other aftercare (1 source) Other rail washer (current) drug therapy; Translations: [Other correction (current) drug therapy] Onset: 03-12-2024 Episodic Other complications of (20 sources) Uncertain viability of ; Translations: [ [...] , first trimester] Onset: 05-31-2024 Episodic Other complications of (1 source) Anxiety in ; Translations: [Other mental disorders complicating , unspecified trimester] 07-05-2024 Episodic Other complications of (1 source) Depressive disorder in mother complicating ; Translations: [Other mental disorders complicating , unspecified trimester] 07-05-2024 Episodic Other diseases of veins and lymphatics (20 sources) Peripheral venous insufficiency; Translations: [Venous insufficiency (chronic) (peripheral)] Onset: 04-20-2023 04-20-2023 Episodic Other gastrointestinal disorders (4 sources) History of bariatric surgical procedure; Translations: [Bariatric surgery status complicating , second trimester] Onset: 05-20-2019 05-20-2019 Episodic Other non-traumatic joint disorders (15 sources) Pain in left knee; Translations: [Left knee pain] Onset: 02-15-2024 02-15-2024 Episodic Residual codes; unclassified (1 source) Other specified postprocedural states; Translations: [Other specified postprocedural states] Onset: 02-29-2024 Episodic Residual codes; unclassified (1 source) Family history of clubfoot; Translations: [Family history of other diseases of the musculoskeletal system and connective tissue] 07-05-2024 Episodic Residual codes; unclassified (1 source) Gestation period, 12 weeks; Translations: [12 weeks gestation of ] 07-05-2024 Episodic Spondylosis; intervertebral disc disorders; other back problems (20 sources) Sacroiliac joint pain; Translations: [Sacrococcygeal disorders, not elsewhere classified] Onset: 04-20-2023 04-20-2023 Episodic Unclassified (1 source) History of bypass of stomach 09-04-2024 Varicose veins of lower extremity (20 sources) Varicose veins of left lower limb; Translations: [Asymptomatic varicose veins of left lower extremity] Onset: 04-20-2023 04-20-2023 Episodic Viral infection (20 sources) Genital warts; Translations: [Anogenital (venereal) warts] Onset: 04-20-2023 04-20-2023 Episodic Results Test Name Value Interpretation Reference Range Facility AMNISUREon 11-21-2024 [facility] AMNISURE Negative NEGATIVE [facility] No Panel InformationOrdered By: Radiologist Radiology on 11-21-2024 [facility] Work Phone: No Panel Informationon 11-21 Radiology Study observation (narrative) [facility] US OB BPP W NON-STRESS on 11-21-2024 [place] [address] Ultrasound Report Signed Patient: LUCILA JACQUES MR#: [id number] : 1990 Acct:[id number] Age/Sex: 34 / F ADM Date: Loc: [facility] [address]: Catrachito Aiken D.O. Ordering Physician: Catrachito Aiken D.O. Date of Service: 11/21/24 Procedure(s): US OB BPP w non-stress Accession Number(s): [id number] cc: Catrachito Aiken D.O.; Physician,Non-Staff M.[place] [id number] Patient Name: LUCILA JACQUES MRN: [facility]:[id number] date: 1990 Sex: F Assigned Patient Location: [facility] Current Patient Location: Accession/Order Number: [id number] Exam Date: 11/21/2024 18:27 Report Date: 11/21/2024 18:32 At the request of: CATRACHITO AIKEN DO Procedure: US OB growth US OB BPP w non-stress, US OB growth 11/21/2024 1:13 PM SIGNS AND SYMPTOMS: 01/06/25 leaking fluid, advanced maternal age COMPARISON: None. TECHNIQUE: Limited pelvic ultrasound using transvesical sonography. FINDINGS: An intrauterine is identified. The visualized fetus has an estimated gestational age of 32 weeks and 2 days. A heart rate is identified at 138 bpm. A normal amount of amniotic fluid is present. There is no evidence for placenta previa or subchorionic hemorrhage. The fetus is in cephalic presentation. Estimated weight is 4 lbs. 4 oz. Pelvic survey reveals no gross abnormalities. Biophysical profile: breathing movements: 2/2 Gross body movements: 2/2 tone: 2/2 Amniotic fluid volume 2/2 (amniotic fluid index: 9.9 cm) US/US OB BPP w non-stress IMPRESSION: Single live IUP with an estimated gestational age of 32 weeks and 2 days with a normal heart rate. Estimated weight is 4 lbs. 4 oz. Biophysical profile score: 8/8 Amniotic fluid index: 9.9 cm (normal) Impression dictated by: Ruddy Esquivel M.D.11/21/2024 6:32 PM Dictation Location: [place] [address] Electronically authenticated by: [id number] Y Date: 11/21/2024 18:32 Dictated By: Ruddy Esquivel M.D. Signed By: 11/21/241834 DD/ 31 TD/TT: Radio Sportscaster: [facility] Radiology, Radiologi MD kevin - 11/21/2024 [place] [address] Ultrasound Report Signed Patient: LUCILA JACQUES MR#: [id number] : 1990 Acct:[id number] Age/Sex: 34 / F ADM Date: Loc: [facility] 250- Attending Dr: Catrachito Aiken D.O. Ordering Physician: Catrachito Aiken D.O. Date of Service: 11/21/24 Procedure(s): US OB BPP w non-stress Accession Number(s): [id number] cc: Catrachito Aiken D.O.; Physician,Non-Staff [place] [id number] Patient Name: LUCILA JACQUES MRN: [facility]:[id number] date: 1990 Sex: F Assigned Patient Location: [facility] Current Patient Location: Accession/Order Number: [id number] Exam Date: 11/21/2024 18:27 Report Date: 11/21/2024 18:32 At the request of: CATRACHITO AIKEN DO Procedure: US OB growth US OB BPP w non-stress, US OB growth 11/21/2024 1:13 PM SIGNS AND SYMPTOMS: 01/06/25 leaking fluid, advanced maternal age COMPARISON: None. TECHNIQUE: Limited pelvic ultrasound using transvesical sonography. FINDINGS: An intrauterine is identified. The visualized fetus has an estimated gestational age of 32 weeks and 2 days. A heart rate is identified at 138 bpm. A normal amount of amniotic fluid is present. There is no evidence for placenta previa or subchorionic hemorrhage. The fetus is in cephalic presentation. Estimated weight is 4 lbs. 4 oz. Pelvic survey reveals no gross abnormalities. Biophysical profile: breathing movements: 2/2 Gross body movements: 2/2 tone: 2/2 Amniotic fluid volume 2/2 (amniotic fluid index: 9.9 cm) US/US OB BPP w non-stress IMPRESSION: Single live IUP with an estimated gestational age of 32 weeks and 2 days with a normal heart rate. Estimated weight is 4 lbs. 4 oz. Biophysical profile score: 8/8 Amniotic fluid index: 9.9 cm (normal) Impression dictated by: Ruddy Esquivel M.D.11/21/2024 6:32 PM Dictation Location: [place] [address] Electronically authenticated by: [id number] Y Date: 11/21/2024 18:32 Dictated By: Ruddy Esquivel M.D. Signed By: 11/21/241834 DD/ 31 TD/TT: Radio Sportscaster: [facility] US OB GROWTHon 11-21-2024 [place] [address] Ultrasound Report Signed Patient: LUCILA JACQUES MR#: [id number] : 1990 Acct:[id number] Age/Sex: 34 / F ADM Date: Loc: [facility] Attending Dr: Catrachito Aiken D.O. Ordering Physician: Catrachito Aiken D.O. Date of Service: 11/21/24 Procedure(s): US OB growth Accession Number(s): [id number] cc: Catrachito Aiken D.O.; Physician,Non-Staff Farhat [address] [address] Patient Name: LUCILA JACQUES MRN: [facility]:[id number] date: 1990 Sex: F Assigned Patient Location: [facility] Current Patient Location: Accession/Order Number: [id number] Exam Date: 11/21/2024 18:27 Report Date: 11/21/2024 18:32 At the request of: CATRACHITO AIKEN DO Procedure: US OB growth US OB BPP w non-stress, US OB growth 11/21/2024 1:13 PM SIGNS AND SYMPTOMS: 01/06/25 leaking fluid, advanced maternal age COMPARISON: None. TECHNIQUE: Limited pelvic ultrasound using transvesical sonography. FINDINGS: An intrauterine is identified. The visualized fetus has an estimated gestational age of 32 weeks and 2 days. A heart rate is identified at 138 bpm. A normal amount of amniotic fluid is present. There is no evidence for placenta previa or subchorionic hemorrhage. The fetus is in cephalic presentation. Estimated weight is 4 lbs. 4 oz. Pelvic survey reveals no gross abnormalities. Biophysical profile: breathing movements: 2/2 Gross body movements: 2/2 tone: 2/2 Amniotic fluid volume 2/2 (amniotic fluid index: 9.9 cm) US/US OB growth IMPRESSION: Single live IUP with an estimated gestational age of 32 weeks and 2 days with a normal heart rate. Estimated weight is 4 lbs. 4 oz. Biophysical profile score: 8/8 Amniotic fluid index: 9.9 cm (normal) Impression dictated by: Ruddy Esquivel M.D.11/21/2024 6:32 PM Dictation Location: [place] [address] Electronically authenticated by: [id number] Y Date: 11/21/2024 18:32 Dictated By: Ruddy Esquivel M.D. Signed By: 11/21/241834 DD/ 31 TD/TT: Radio Sportscaster: [facility] Radiology, Radiologrodriguez brown MD - 11/21/2024 [place] [address] Ultrasound Report Signed Patient: LUCILA JACQUES MR#: [id number] : 1990 Acct:[id number] Age/Sex: 34 / F ADM Date: Loc: [facility] Attending Dr: Catrachito Aiken D.O. Ordering Physician: Catrachito Aiken D.O. Date of Service: 11/21/24 Procedure(s): US OB growth Accession Number(s): [id number] cc: Catrachito Aiken D.O.; Physician,Non-Staff [place] [address] Patient Name: LUCILA JACQUES MRN: [facility]:[id number] date: 1990 Sex: F Assigned Patient Location: [facility] Current Patient Location: Accession/Order Number: [id number] Exam Date: 11/21/2024 18:27 Report Date: 11/21/2024 18:32 At the request of: CATRACHITO AIKEN DO Procedure: US OB growth US OB BPP w non-stress, US OB growth 11/21/2024 1:13 PM SIGNS AND SYMPTOMS: 01/06/25 leaking fluid, advanced maternal age COMPARISON: None. TECHNIQUE: Limited pelvic ultrasound using transvesical sonography. FINDINGS: An intrauterine is identified. The visualized fetus has an estimated gestational age of 32 weeks and 2 days. A heart rate is identified at 138 bpm. A normal amount of amniotic fluid is present. There is no evidence for placenta previa or subchorionic hemorrhage. The fetus is in cephalic presentation. Estimated weight is 4 lbs. 4 oz. Pelvic survey reveals no gross abnormalities. Biophysical profile: breathing movements: 2/2 Gross body movements: 2/2 tone: 2/2 Amniotic fluid volume 2/2 (amniotic fluid index: 9.9 cm) US/ OB growth IMPRESSION: Single live IUP with an estimated gestational age of 32 weeks and 2 days with a normal heart rate. Estimated weight is 4 lbs. 4 oz. Biophysical profile score: 8/8 Amniotic fluid index: 9.9 cm (normal) Impression dictated by: Ruddy Esquivel M.D.11/21/2024 6:32 PM Dictation Location: [facility] Electronically authenticated by: [id number] Y Date: 11/21/2024 18:32 Dictated By: Ruddy Esquivel M.D. Signed By: 11/21/241834 DD/ 31 TD/TT: Radio Sportscaster: [facility] Urinalysis macro (dipstick) panel (U)on 11-21-2024 Bilirubin, UA Positive Negative - 4(70) +++ mg/dL [facility] Comment on above: small Blood, UA Negative Negative - 50 Asif/mcL [facility] Clarity, UA Clear [facility] Color, UA Bibiana [facility] Glucose, UA Negative Negative - 2000(110) ++++ mg/dL [facility] Interpretation and review of laboratory results Abnormal [facility] Ketones, UA Positive Negative - 160(16) ++++ mg/dL [facility] Comment on above: trace Leukocytes, UA Negative Negative - 500+++ Shivani/mcL [facility] Nitrite, UA Negative Negative - Positive [facility] pH, UA 5.5 5 - 9 [facility] Protein, UA Positive Negative - 2000(20) ++++ mg/dL [facility] Comment on above: 30 Spec Grav, UA 1.03 1 - 1.03 [facility] Urobilinogen, UA 1.0 0.2 - 12 mg/dL [facility] Coding Summaryon 11-11-2024 Coding Summary HTMLBase 64 VmzjanlyMWd6dFp+PGhlYWQ+PE1 WRMRqU28ciQNexF8oH4QCONqPTi tmQSXECCrBXtFnpaFzME8vwCOdE XJu IC8+JW1fGHCnNrjaiGPro7D9zNI 3N93wed8zTGjalYQ7ZIJrPgZnct lyi5tpqQo3HRloGpgpBzBc CBBefW28QLT5tV65Av13iDKbgXP hd0ydsIm2CrGbTCVyMPS8bFqoGH puc1BtREFvN73xwFHpb1X1 HXPntClfvANsIyPyuUD3kC0pGDr xykpdb5ybcdqnZfq5oj74zHWsu2 F7wCX0U4JjzpC4XQDyoJGe RxpjcWNHoC0uncahu8dxiqdtYlQ lCTKdZQm1TWk9ZXOmwMwnPzYsBE 41CGA4UBGpbqSdQ5XyMAJp fXmnOzI7r7Z4Yi8QD3XNOaloW7C NTUFSWTwvdGQ+YH24hb84M8DyCh zfFbi8QFYsBMV6pHG3hL7i LEKqMYuuo4W1dOC3P0PjzfEujt9 zq8xzHEApQCtrL23uyUDvy3G0LV OemGR7ISVtjJykDeAuiE36 Oyc+EZQpaKlja4LuCxsxk5ggh2n ytHz1KrzfYTAdghOqnXxxBOR1a5 RnXz6sELRhoTT9xBW7tK6i YdZcKiP3NIkhR028VzRtxGUsKrx uH20wZ1DraEL+OQFqWbg2FNQojX maXP8sQ1WzVZSjcfdpkHIz eGsdCJ5fTXDvgherBVRrmW9iPJW dA9c3ZrYyHoJ0MCxpI9MuNPCenz ijEd04pB8oLkVhLvG4EGro R7DsweQ8CAHdjNRvLFozUUR4S36 aa6J1KYMnCNDfFHD4mII4gC7yyE lnbjogbGVmdDsgdmVydGlj ZIlmCAnhP017VQYidZiuItPiREy uZyBEYXRlOiAgMDIvMTcvMjAyNT wvdGQ+EJXwGDF9uYtuRIFj zTTgALjeEe0cwSiflGyfVL8gMDL kvlodFOMuaG4cHGLtcXPkrRvuPR 2iAEVuxfnvz835JcKeGYW4 LTHwkQKzM2RcuG6uQtPiPMTpJEX nS4ZekODkSZxiW864UHkjDoK1WM OcxsNpE4XcZFQnjNfjTuJ4 d5X6Zx3Qw1JpdyzvD4FrxJDoFdH sHtzfSHr3V3GnQuuwmPD+PC90YW HnWA39CHf3SZH5aTizGTet ALOlN1JddO5nQiCxEENvSLErOec +PHRhYmxlIHdpZHRoPScxMDAlJy FrwEpzNE7oCo2pXDBdLJKg vZppmDVhAdQqn3qlEALyAXhtYF8 xmNwpC0TrlWW3IHWyb6a8Ug30I5 6zO3UseYX+PVDynOO9sGK5 tS0bLcOyPqZ8PJfrC169XiBpqGU lBxtsf6ukt3bsrVt7WoG1NBIbwk LccNevKCL0l5YiBd58V59f IHdpZHRoPSIxNSUiIHZhbGlnbj0 vuQ6sLj9+LVLhkPT8vRL6qZ5rLj FrWmG5OWcsS529ZdEhrCBr Xbkns4xrj2ljnWp7HyNsCVWmqxV haGmbLDP8i4ZeBn02F9HznFnpm8 UcSjl8gv61dXFsp5F9rGV4 C6MpPHNzcubaeJEavApdLG2iVQJ ehpzmKJUxrN5uUHRcP9l2PiVuJw N3NSuwI1DavgF6WHDocMRs BBGliWPAnW0amocvk2zaubpgZcJ rLPTmBHq1LTz9OALyvNjoTwBoUH R1DrH5YYQ4dELocQ9wjTdm wjnleS9bQrf+QTG5jVKvzYFBRN5 lOjwvdGQ+GXZkUPH1oQfoEVvfLP DtbT9uQYEwT7r7ZtWtAcA4 XIzaA7OyfnJ0DFMmvQUdDVDpnWT GwL7bgumwp9uylqmdAxEyICOePJ r8FQr8XQMfbKnbCjSpTNW6 CmK4LBA0hRUtwJ6wuFvxjnttxR7 wOyc+HznnsZtvCIS2UDd4L6BzKe w2HORqmEpeZV5qtJSnZOdj Rc3dkBualEssDJ1mVHFzxpdqz64 8QoAlr9pqUQWdfHNzXVjfXTS9T2 5rq9G7JIDdFEWgDXO0qLJ4 eF5qdKfvinhhwISksFnhzuAhvMh rZNqfEEvaG019ABOzjYltBoNzGY g1M2GoGwq2TJPfqAeiAJ1q dJIfKEezAn1dnEgctMwoPN5qXYC uzmosl808ZiFyq4iuRWOsyLCtJX woAWH8Y88ay0C4CBPzJGBw PKF2wFL7eP0rtIedmdqkuTRemTp msfBrfZnrLTvoUMwoQ527SBZitY gyRmVztOf1V0WiPid4SDQt rSymPT9cmBEfKDbtQc8tmXmfvHj jBQ4zQGZaxsjiq053ShRii4ymGX VwbYVdDSxtWFS8S66fv1R8 TFIrXJMeNPM3aZI5aE2klWzlowi gbGVmdDsgdmVydGljYWwtYWxpZ2 46IHRvcDsnPlBhdGllbnQg MZwzOWa2P5AoKrjrnCU+CP42MUW hUV67tOKmpTUeu2qbpFd4KfDmON JvEGO6jZrbTSpcs5PkHCLu V75zwDBvb6W8RHAkiCllmDFuQoX lqUK8lD8rGTgumoqel1wloxdoVn iff7kgfd23fK00Q08nDSrg CVTcYQUpFHHqKGLbnUyduj4hmQ9 wIi8+TUPzqHK8cCG8nA8iJVYqFo T8NCuwQ991WtWsaTRfIxsn m3djy1gqgTu4XsE2WIKaksRwmHe lQIX1s9SbFc21E11eTQbgOLEqJE GeYYHgFSSjtKvuxs6huE2c Ii8+PQSglZL7xBI6aC9eRxZvKkA 7LIvoH737LeQisLRjAhpyL44mH1 JvdXA+NPKpRpb1UJCpmEwj FV0vrFNrQOcgId9uVGJ5BeDnMlK eIXliS1TmXDVljjpruxbisVV8IU OaOXLkaX05Vw6tmJwgLAZt iRKUbS3czjrej7rfmkxgZqPoLUS uNNi1CSo6TSSdmHejLpWiDAG4Nn R8NLN7eIOyqA0oeNlmlqws vL4sT2HeNPKyimqkKg27wT8eFfX jEbQ0AHmtDlc+DcBLMcqnK4YQTN wHErLYCIX0A4NcNre2NVQn wRcgXU3ghDFzIGwxMx3tzVuvmLz mRN0jMESttdycZITthJ4eMMXwfS IypGywPP4gHVJnbghap406 AcGhGSA2PHTzdVJaF3CccI7eFzJ hSGNhHKDjC0HdsEClMGozX195LF wlBoN0VEQdinFhP6CeBVZa oFvyUxA9x9U9Ne6sUT3nCt8zBEb 0YF98SW80tBIzw3N6mMN6B7ZcDC PhkedqkapscYU1BYDwEKHd cM41bIAmJRnrXd1yb1G3j976LZV uFSTpfQ72Jh9ilWqgQRZprDTWhR 8yhnoce2pqabxuIpDqWDTo AVy8QNt1EXAebGshCiOaIVG7WqA 7XVW9aSEpgQ4sgCefqmthaX3tXj c+PkLrJJMwrlX6V2NcXbi0 ZRPbsSthCS4obEJjDLcgAa9htQx zcDdkJS8uNEZfavloOXChkO2oLH DcbUYlyIlxPG4nBJUjbqwu u047MwNkXYQ2CGXnuKSuS8XggJ8 yAwMdIYKmEJBiL2QhvEVzGLwkZ7 54GCooOmR4OQZfqjFuL9Uy XMPluUkdBdC3r0O6Uo5KFS4QKLN 2Y2YoOmg2HOSgfZyvIN3seWGrHT rhGq4lxVapwGnjZC3aDEYf epuuFJHhfU8kAMPwjOMcgFihQZ6 iAZQgcevrq017DwAwLJO5TLYolQ MrP8TmjE2uPkXxXGCfGSLl J8EiwMAdNDfdP157BFsaLvA3UWY amyOxP9RuTAEhxEjwNbA3l5O8Si 5PUDwvdGQ+HZ79tk69S4Fl FvlpMut1UBIkAWU3jZS7sU6iZKE vDRlzw9I3fFP6V5CdtqNvtd8tt2 rlTKRrHPnrZ23ejHHbn5S3 NSXwbLE1KWGdiSefExMfaC06Jab +MUJpxVfhn9VgGgglv5nqi9fuhO x3VoNfEXLrktMhvDfnNHE9 q1HaZv08Q55lTFbuCMUuFAKoBNP gEALzuEjttc5oiJ6yRw7+PGNvbC E5uTX8nU7rFoSlMcD0EKra F647HjWdvZNtUrpbl7ejq8izcCo 1UxLzQTIndtElgPtuXOB1i8YyEt 66C9ZzzJcau9OjRgx2ue75 kJFho7E4xQT6Y7OgZKCffhoucIG ynAtjBR5eWYLjxrqvMEXaxW1fWQ AtU1h5ScVqAaG5IKrwM7Wv lnJ2EUSzsXQhXFJyyUNJcE0jind rq4qxjzkoNoAxUKKqMDm3JXw7DS UcwGwiEwEqELI7KqX1QLK8 lGBthB2mtHbhanuleF8jYbi+UGh 3f6hclXVgFZ0tmHQ6PV77JE91oP Gtb1P1aGH4G3FiYLQiinei eebpwCB7EDUhDHElqV13Se6coJm nQc2bUAFbUCA9KCAdpHXmT5XvbA 7ePtRrAPFnQYEzY0DrhQQw WWuzM383DRzvIkL2PGHmfpQlA7C iUSZgwGepYpD6a8H8Fh2ATF46TA 57RY55zWMhd8I3nXC2B7Pl QFYrpuyktbijgVV7YOVzMTSbvU7 2Ds2ekGvuFz5zHKVhLYI7JDBcoX UiD1DyrA4jIlOlOLErOBKt C4NmpNDzNCzuG199AFqcZaF6MYI bkvUjJ0XyEHAnnEopFvP0b0K8Pb 7NTf21MG13LT10yQUhn2T0 uAA3J4OmPJZxpldivfavsLT7MGM bMYLvjW21Ll5baWsyYh8mXTYjDQ L5BZTwiAZuZ7RnuW1yJiNx VWKoDRYdH0FtxWJaTFlbP495DBe kCsK3TELgteBsR4YfMJSmzJbmFp M3b5P0Ry3KDSonfws4Y0Rw PjwvdHI+BX70AHDsLI12gUEtrOC tt8yscXd9PdPtLLGeKVC6kTrwFH aql3BcVEPhW86dcSDco6K1 IGN (more content not included)... Normal [facility] Urinalysis macro (dipstick) panel (U)on 11-07-2024 Bilirubin, UA Positive Negative - 4(70) +++ mg/dL [facility] Comment on above: small Blood, UA Negative Negative - 50 Asif/mcL [facility] Clarity, UA Clear [facility] Color, UA Yellow [facility] Glucose, UA Negative Negative - 2000(110) ++++ mg/dL [facility] Interpretation and review of laboratory results Abnormal [facility] Ketones, UA Positive Negative - 160(16) ++++ mg/dL [facility] Comment on above: 40mg/dL Leukocytes, UA Negative Negative - 500+++ Shivani/mcL [facility] Nitrite, UA Negative Negative - Positive [facility] pH, UA 6 5 - 9 [facility] Protein, UA Positive Negative - 2000(20) ++++ mg/dL [facility] Comment on above: 30mg/dL Spec Grav, UA 1.025 1 - 1.03 [facility] Urobilinogen, UA 1.0 0.2 - 12 mg/dL [facility] ALL CBC WITH AUTO DIFFon BASOPHILS ABSOLUTE AUTO 0 [facility] Basophils/100 WBC (Bld) 0.3 % 0.2 - 2.0 % [facility] Eosinophils/100 WBC (Bld) 1.6 % 0.9 - 7.0 % [facility] Erythrocyte distribution width (RBC) [Ratio] 12.8 % 11.0 - 15.0 % [facility] Hematocrit (Bld) [Volume fraction] 33.8 % Low 36.0 - 48.0 % [facility] Hemoglobin (Bld) [Mass/Vol] 11.4 g/dL Low 12.0 - 16.0 g/dL [facility] IMMATURE GRANULOCYTES ABS AUTO 0.05 High [facility] Immature granulocytes/100 WBC (Bld) 0.5 % 0.0 - 0.5 % [facility] Interpretation and review of laboratory results Abnormal [facility] LYMPHOCYTES ABSOLUTE AUTO 1.9 [facility] Lymphocytes/100 WBC (Bld) 18.6 % Low 20.5 - 60.0 % [facility] MCH (RBC) [Entitic mass] 29.8 pg 26.7 - 34.0 pg [facility] MCHC (RBC) [Mass/Vol] 33.7 g/dL 29.9 - 35.2 g/dL [facility] MCV (RBC) [Entitic vol] 88.5 fL 81.0 - 99.0 fL [facility] MONOCYTES ABSOLUTE AUTO 0.9 High [facility] Monocytes/100 WBC (Bld) 8.6 % 1.7 - 12.0 % [facility] NEUTROPHILS ABSOLUTE AUTO 7.3 High [facility] Neutrophils/100 WBC (Bld) 70.4 % 43.0 - 75.0 % [facility] Platelet mean volume (Bld) [Entitic vol] 8.9 fL Low 9.5 - 13.5 fL [facility] TBH EO # 0.2 [facility] PLT 228 [facility] RBC 3.82 Low [facility] WBC 10.4 [facility] CLINISYNC [facility] Urinalysis macro (dipstick) panel (U)on 10-01-2024 Bilirubin, UA Negative Negative - 4(70) +++ mg/dL [facility] Blood, UA Negative Negative - 50 Asif/mcL [facility] Clarity, UA Clear [facility] Color, UA Yellow [facility] Glucose, UA Negative Negative - 1999(110) ++++ mg/dL [facility] Interpretation and review of laboratory results Abnormal [facility] Ketones, UA Positive Negative - 160(16) ++++ mg/dL [facility] Leukocytes, UA Negative Negative - 500+++ Shivani/mcL [facility] Nitrite, UA Negative Negative - Positive [facility] pH, UA 6.5 5 - 9 [facility] Protein, UA Negative Negative - 1999(20) ++++ mg/dL [facility] Spec Grav, UA 1.025 1 - 1.03 [facility] Urobilinogen, UA 1.0 0.2 - 12 mg/dL [facility] AFP, SERUM, OPEN SPINA BIFID Aon 08-14-2024 AFP MOM 1.32 . [facility] AFP VALUE 43.5 ng/mL . [facility] COMMENT: Comment . [facility] Comment on above: Irena Jones , Ph.D., [facility] Director References: Available Upon Request. Multiples Of Median Cutoffs For AFP Elevations Vela 2.5 Black 2.8 IDD 2.0 Twins 4.5 Abbreviation Definitions IDD - Insulin Dep Diabetes OSBR - Open Spina Bifida Risk For further inquiries contact [facility] at [phone]. This test was developed and its performance characteristics determined by [facility]. It has not been cleared or approved by the Food and Drug Administration. Performed at: [facility] [address] [place], [place] [id number] Chief Maintenance Supervisor: Hellen Hinson [facility], Phone: [phone] GEST. AGE ON COLLECTION DATE 18.1 . weeks [facility] GESTAT. AGE BASED ON Ultrasound . [facility] Comment on above: 18.1 on 08/12/2024 Recalculations are not recommended when gestational dating by LMP and ultrasound are within 10 days. INSULIN DEP DIABETES No . [facility] INTERPRETATION Comment . [facility] Comment on above: Interpretation: Scre en Negative [...] Customer Services to discuss available options. The [employer] recommends amniocentesis be offered to women age 35 and older. [age] [facility] MULTIPLE GESTATION No . [facility] OSBR RISK 1 IN 4529 . [facility] RACE . [facility] RESULTS Report . [facility] TEST RESULTS: Negative . [facility] WEIGHT 239 . lbs [facility] N N ULTRASOUND [id number] 1 18 N 1 Y 239 N N N N N White/ [facility] Urinalysis macro (dipstick) panel (U)on 08-12-2024 Bilirubin, UA Negative Negative - 4(70) +++ mg/dL [facility] Blood, UA Negative Negative - 50 Asif/mcL [facility] Clarity, UA Clear [facility] Color, UA Yellow [facility] Glucose, UA Negative Negative - 2000(110) ++++ mg/dL [facility] Interpretation and review of laboratory results Abnormal [facility] Ketones, UA Positive Negative - 160(16) ++++ mg/dL [facility] Comment on above: trace Leukocytes, UA Negative Negative - 500+++ Shivani/mcL [facility] Nitrite, UA Negative Negative - Positive [facility] pH, UA 6 5 - 9 [facility] Protein, UA Negative Negative - 1999(20) ++++ mg/dL [facility] Spec Grav, UA 1.015 1 - 1.03 [facility] Urobilinogen, UA 0.2 0.2 - 12 mg/dL [facility] Urinalysis macro (dipstick) panel (U)on 07-16-2024 Bilirubin, UA Negative Negative - 4(70) +++ mg/dL [facility] Blood, UA Negative Negative - 50 Asif/mcL [facility] Clarity, UA Clear [facility] Color, UA Yellow [facility] Glucose, UA Negative Negative - 1999(110) ++++ mg/dL [facility] Interpretation and review of laboratory results Normal [facility] Ketones, UA Negative Negative - 160(16) ++++ mg/dL [facility] Leukocytes, UA Negative Negative - 500+++ Shivani/mcL [facility] Nitrite, UA Negative Negative - Positive [facility] pH, UA 5.5 5 - 9 [facility] Protein, UA Negative Negative - 1999(20) ++++ mg/dL [facility] Spec Grav, UA 1.03 1 - 1.03 [facility] Urobilinogen, UA 0.2 0.2 - 12 mg/dL [facility] BLOOD UREA NITROGENon 2023 Urea nitrogen [Mass/Vol] 9 mg/dL Normal 5-23 [facility] Comment on above: Performed By: #### C BCA, 3094-0, ROLL SETTER, LIVR, 5193-8 #### [facility] ([id number]) [address], [address] [place] [address] CBC AND AUTO DIFFon 07-10-20 24 ABSOLUTE BASOPHIL 0.0 X10E9/L Normal 0.0-0.2 [facility] Comment on above: Performed By: #### C BCA, 3094-0, ROLL SETTER, LIVR, 5193-8 #### [facility] ([id number]) [address], [address] [place] [address] ABSOLUTE NEUTROPHIL 5.1 X10E9/L Normal 1.5-6.6 [facility] Comment on above: Performed By: #### Joao BCA, 3094-0, ROLL SETTER, LIVR, 8 #### [facility] ([id number]) [address] [place] [address] Basophils/100 WBC (Bld) 0.6 % Normal [facility] Comment on above: Performed By: #### C BCA, 3094-0, ROLL SETTER, LIVR, 5192-8 #### [facility] ([id number]) [address], [facility] [address] [place] [address] Eosinophils (Bld) [#/Vol] 0.1 10*3/uL Normal 0.0-0.4 [facility] Comment on above: Performed By: #### Joao BCA, 3094-0, ROLL SETTER, LIVR, 5193-04 #### [facility] ([id number]) [address] [place] [address] Eosinophils/100 WBC (Bld) 1.6 % Normal [facility] Comment on above: Performed By: #### Joao BCA, 3094-0, ROLL SETTER, LIVR, 5192-8 #### [facility] ([id number]) [address] [place] [address] Erythrocyte distribution width (RBC) [Ratio] 13.1 % Normal 11.5-15.0 [facility] Comment on above: Performed By: #### C BCA, 3094-0, ROLL SETTER, LIVR, 5192-8 #### [facility] ([id number]) [address] [address] [place] [address] Hematocrit (Bld) [Volume fraction] 39.1 % Normal 35-47 [facility] Comment on above: Performed By: #### Joao BCA, 3094-0, ROLL SETTER, LIVR, 5192-8 #### [facility] ([id number]) [address], [address] [place] [address] Hemoglobin (Bld) [Mass/Vol] 13.4 g/dL Normal 11.7-15.5 [facility] Comment on above: Performed By: #### Joao BCA, 3094-0, ROLL SETTER, LIVR, 5193-8 #### [facility] ([id number]) [address], [address] [place] [address] Lymphocytes (Bld) [#/Vol] 1.3 10*3/uL Normal 1.0-3.5 [facility] Comment on above: Performed By: #### Joao BCA, 3094-0, ROLL SETTER, LIVR, 5193-8 #### [facility] ([id number]) [address], [address] [place] [address] Lymphocytes/100 WBC (Bld) 19.0 % Normal [facility] Comment on above: Performed By: #### Joao BCA, 3094-0, ROLL SETTER, LIVR, 5198 #### [facility] ([id number]) [address], [address] [place] [address] MCH (RBC) [Entitic mass] 30.6 pg Normal 27-34 [facility] Comment on above: Performed By: #### Joao BCA, 3094-0, ROLL SETTER, LIVR, 5193-8 #### [facility] ([id number]) [address], [address] [place] [address] MCHC (RBC) [Mass/Vol] 34.3 g/dL Normal 32-36 [facility] Comment on above: Performed By: #### Joao BCA, 3094-0, ROLL SETTER, LIVR, 5193-8 #### [facility] ([id number]) [address], [address] [place] [address] MCV (RBC) [Entitic vol] 89 fL Normal 80-100 [facility] Comment on above: Performed By: #### C BCA, 3094-0, ROLL SETTER, LIVR, 519-8 #### [facility] ([id number]) [address], [address] [place] [address] Monocytes (Bld) [#/Vol] 0.5 10*3/uL Normal 0-0.9 [facility] Comment on above: Performed By: #### Joao BCA, 3094-0, ROLL SETTER, LIVR, 5192-8 #### [facility] ([id number]) [address], [address] [place] [address] Monocytes/100 WBC (Bld) 6.7 % Normal [facility] Comment on above: Performed By: #### Joao BCA, 3094-0, ROLL SETTER, LIVR, 5192-8 #### [facility] ([id number]) [address], [address] [place] [address] Neutrophils/100 WBC (Bld) 72.1 % Normal [facility] Comment on above: Performed By: #### Joao CARABALLO, 3094-0, ROLL SETTER, LIVR, 519-8 #### [facility] ([id number]) [address], [address] [place] [address] Platelet mean volume (Bld) [Entitic vol] 7.9 fL Normal 7-12 [facility] Comment on above: Performed By: #### Joao BCA, 3094-0, ROLL SETTER, LIVR, 5192-8 #### [facility] ([id number]) [address], [address] [place] [address] Platelets (Bld) [#/Vol] 232 10*3/uL Normal 150-450 [facility] Comment on above: Performed By: #### Joao BCA, 3094-0, ROLL SETTER, LIVR, 3-8 #### [facility] ([id number]) [address], [address] [place] [address] RBC COUNT 4.37 X10E12/L Normal 3.80-5.20 [facility] Comment on above: Performed By: #### C BCA, 3094-0, ROLL SETTER, LIVR, 5193-8 #### [facility] ([id number]) [address], [address] [place] [address] WBC (Bld) [#/Vol] 7.0 10*3/uL Normal 4.0-11.0 [facility] Comment on above: Performed By: #### C BCA, 3094-0, ROLL SETTER, LIVR, 5193-8 #### [facility] ([id number]) [address], [address] [address] CREATININEon 07-10-2024 Creatinine [Mass/Vol] 0.54 mg/dL Normal 0.40-1.00 [facility] Comment on above: Result Comment: METH OD TRACEABLE TO IDMS STANDARD Performed By: #### C BCA, 3094-0, ROLL SETTER, LIVR, 5193-8 #### [facility] ([id number]) [address], [address] [place] [address] eGFR (CKD-EPI) NON-RACE DEPENDENT >90 Normal >59 [facility] Comment on above: Result Comment: Reported eGFR is based on the CKD-EPI 2020 equation that does not use a race coefficient. Performed By: #### C BCA, 3094-0, ROLL SETTER, LIVR, 5193-8 #### [facility] ([id number]) [address], [address] [address] HBV surface Ab IA Qnon 07-10 Anti HBs quant. <8.00 Normal [facility] Comment on above: Result Comment: Vacc inated: >=12mIU/mL, Positive (Immune) Unvaccinated: <8mIU/mL, Negative (Not Immune) 8-11.99 mIU/mL: Indeterminate, (Considered Not Immune) Performed By: #### C BCA, 3094-0, ROLL SETTER, LIVR, 5193-8 #### [facility] ([id number]) [address], [address] [place] [address] LIVER PANELon 07-10-2024 Albumin [Mass/Vol] 3.8 g/dL Normal 3.2-5.3 [facility] Comment on above: Performed By: #### C BCA, 3094-0, ROLL SETTER, LIVR, 5193-8 #### [facility] ([id number]) [address], [address] [place] [address] ALP [Catalytic activity/Vol] 44 U/L Normal 39-130 [facility] Comment on above: Performed By: #### C BCA, 3094-0, ROLL SETTER, LIVR, 5193-8 #### [facility] ([id number]) [address], [address] [place] [address] ALT [Catalytic activity/Vol] 11 U/L Normal 0-31 [facility] Comment on above: Performed By: #### C BCA, 3094-0, ROLL SETTER, LIVR, 5193-8 #### [facility] ([id number]) [address], [address] [place] [address] AST [Catalytic activity/Vol] 16 U/L Normal 0-41 [facility] Comment on above: Performed By: #### C BCA, 3094-0, ROLL SETTER, LIVR, 5193-8 #### [facility] ([id number]) [address], [address] [place] [address] Bilirubin [Mass/Vol] 0.5 mg/dL Normal 0.3-1.2 [facility] Comment on above: Performed By: #### C BCA, 3094-0, ROLL SETTER, LIVR, 5193-8 #### [facility] ([id number]) [address], [address] [place] [address] Bilirubin.direct [Mass/Vol] 0.1 mg/dL Normal 0.0-0.4 [facility] Comment on above: Performed By: #### C BCA, 3094-0, ROLL SETTER, LIVR, 5193-8 #### [facility] ([id number]) [address], [address] [place] [address] Protein [Mass/Vol] 6.5 g/dL Normal 6.0-8.0 [facility] Comment on above: Performed By: #### C BCA, 3094-0, ROLL SETTER, LIVR, 5193-8 #### [facility] ([id number]) [address], [address] [place] [address] Unlisted Lab TestOrdered By: Jaci Atwood on 06-26-2024 [facility] TB TOTAL PROTEIN 24 HOUR UR INEon 06-21-2024 Protein (U) [Mass/Vol] 11.3 mg/dL NINF - 11.9 mg/dL [facility] TOTAL PROTEIN 24 HOUR [facility] TOTAL VOLUME 24 HOUR URINE 900 mL/24hr [facility] CLINISYNC [facility] Urinalysis macro (dipstick) panel (U)on 06-19-2024 Bilirubin, UA Negative Negative - 4(70) +++ mg/dL [facility] Blood, UA Negative Negative - 50 Asif/mcL [facility] Clarity, UA Clear [facility] Color, UA Yellow [facility] Glucose, UA Negative Negative - 2000(110) ++++ mg/dL [facility] Interpretation and review of laboratory results Normal [facility] Ketones, UA Negative Negative - 160(16) ++++ mg/dL [facility] Leukocytes, UA Negative Negative - 500+++ Shivani/mcL [facility] Nitrite, UA Negative Negative - Positive [facility] pH, UA 5.5 5 - 9 [facility] Protein, UA Negative Negative - 2000(20) ++++ mg/dL [facility] Spec Grav, UA 1.020 1 - 1.03 [facility] Urobilinogen, UA 1.0 0.2 - 12 mg/dL [facility] ALL CBC WITH AUTO DIFFon BASOPHILS ABSOLUTE AUTO 0.0 [facility] Basophils/100 WBC (Bld) 0.4 % 0.2 - 2.0 % [facility] Eosinophils/100 WBC (Bld) 1.3 % 0.9 - 7.0 % [facility] Erythrocyte distribution width (RBC) [Ratio] 12.5 % 11.0 - 15.0 % [facility] Hematocrit (Bld) [Volume fraction] 36.9 % 36.0 - 48.0 % [facility] Hemoglobin (Bld) [Mass/Vol] 12.4 g/dL 12.0 - 16.0 g/dL [facility] IMMATURE GRANULOCYTES ABS AUTO 0.02 [facility] [facility] Immature granulocytes/100 WBC (Bld) 0.3 % 0.0 - 0.5 % [facility] Interpretation and review of laboratory results Abnormal [facility] LYMPHOCYTES ABSOLUTE AUTO 1.2 [facility] Lymphocytes/100 WBC (Bld) 17.0 % Low 20.5 - 60.0 % [facility] MCH (RBC) [Entitic mass] 29.9 pg 26.7 - 34.0 pg [facility] MCHC (RBC) [Mass/Vol] 33.6 g/dL 29.9 - 35.2 g/dL [facility] MCV (RBC) [Entitic vol] 88.9 fL 81.0 - 99.0 fL [facility] MONOCYTES ABSOLUTE AUTO 0.4 [facility] Monocytes/100 WBC (Bld) 6.0 % 1.7 - 12.0 % [facility] NEUTROPHILS ABSOLUTE AUTO 5.3 [facility] Neutrophils/100 WBC (Bld) 75.0 % 43.0 - 75.0 % [facility] Platelet mean volume (Bld) [Entitic vol] 10.0 fL 9.5 - 13.5 fL [facility] EO # 0.1 [facility] PLT 173 [facility] RBC 4.15 Low [facility] TB WBC 7.1 [facility] XR knee LT 3V - NOT FOR ER U Yuridia 06-11-2024 XR knee LT 3V - NOT FOR ER USE [facility] [address] [place] [address] XRay Report Signed Patient: Lucila Jacques MR#: [id number] [birth year] : 1990 Acct:[id number] Age/Sex: 33 / F ADM Date: 06/11/24 Loc: SOXD Room: Type: [facility] Attending Dr: Santa Estrada II, [...] Vikki Rivers M.D.06/11/2024 2:26 PM Dictation Location: [facility]- Transcribed By: [facility] 06/11/24 1426 Dictated By: Vikki Rivers MD 06/11/24 1422 Signed By: 06/11/24 1426 Normal [facility] HCG ( test) Ql (U)o n 05-23-2024 Interpretation and review of laboratory results Abnormal [facility] Preg Test, Ur Positive [facility] US OB < 14 WEEKS EARLYon [...] on 04-29-2024 Amphetamines Ql (U) Negative Negative [facility] Barbiturates [Presence] in U rine by Screen methodOrdered By: Yusef Curran on 04-29-2024 Barbiturates Screen Ql (U) Negative Negative [facility] Benzodiazepines Screen Ql (U )Ordered By: Yusef Curran on 04-29-2024 Benzodiazepines Ql (U) Negative Negative [facility] Benzoylecgonine [Presence] i n Urine by [...] ng/mL THC 20 ng/mL Drug Screen,Urineon 04-29-20 Amphetamine Screen,Urine Negative Normal Negative [facility] Comment on above: Performed By: #### A 1C WTH eA, ALB, [id number], HGB #### [place] [address] [place] #### NICOTINE #### [facility] , Barbiturate Screen,Urine Negative Normal Negative [facility] Comment on above: Performed By: #### A 1C WTH eA, ALB, [id number], HGB #### [facility] [address] [place] [address] [place] #### NICOTINE #### [facility] , Benzodiazepines Screen,Urine Negative Normal Negative [facility] Comment on above: Performed By: #### A 1C WTH eA, ALB, [id number], HGB #### [place] [address] [place] #### NICOTINE #### [facility] , Cannabinoid Screen,Urine Negative Normal Negative [facility] Comment on above: Result Comment: Thes e are unconfirmed results and should not be used for legal purposes. Drug Cut-Off Concentration: AMPH 1000 ng/mL SILVIA 200 ng/mL DARLYN 200 ng/mL COCM 300 ng/mL OP 300 ng/mL PCP 25 ng/mL THC 20 ng/mL PERFORMED BY: [place] [address] PATHOLOGIST REGULATORY AND COMPLIANCE TECHNICIAN GENO BENEDCIT M.D. Performed By: #### A 1C WTH eA, ALB, [id number], HGB #### [place] [address] [place] #### NICOTINE #### [facility] , Cocaine Screen,Urine Negative Normal Negative [facility] Comment on above: Performed By: #### A 1C WTH eA, ALB, [id number], HGB #### [address] #### NICOTINE #### [facility] , Opiate Screen,Urine Negative Normal Negative [facility] Comment on above: Performed By: #### A 1C WTH eA, ALB, [id number], HGB #### [place] [address] [place] #### NICOTINE #### [facility] , Phencyclidine Screen,Urine Negative Normal Negative [facility] Comment on above: Performed By: #### A 1C WTH eA, ALB, [id number], HGB #### [place] [address] [place] #### NICOTINE #### [facility] , HCG ( test) IA.rapi d Ql (U)Ordered By: Yusef Curran on 04-29-2024 HCG ( test) Ql (U) Negative [facility] HCG,Urineon 04-29-2024 Beta HCG ( test) Ql (U) Negative Normal [facility] Comment on above: Result Comment: PERF ORMED BY: [place] [address] PATHOLOGIST REGULATORY AND COMPLIANCE TECHNICIAN GENO BENEDICT M.D. Performed By: #### U HCG #### [place] [address] [place] Vaughn 04-29-2024 L Specimen: [id number] Received: 04/29/24 Status: MICHAEL Young Num: [id number] Spec Type: Surgical Subm Dr: Santa Estrada MD Tissues: A Joint/Knee (LT KNEE) Procedures: HE, Gross/Micro L4, Decalcification Age/ Patient Sex Location Account Attending Physician Lucila Jacques 33/F [place] [id number] Santa Estrada MD SPEC NUM: [id number] RECD: 04/29/24 STATUS: MICHAEL YOUNG NUM: [id number] NIELS: 04/29/24 DR: Santa Estrada MD ENTERED: 04/29/[address] [facility] [address]: SPEC TYPE: Surgical DEPT: S [...] gross only examination, no sections are submitted. TW CPT Codes 10542 Specimen: [id number] Received: 04/29/24 Status: MICHAEL Young Num: [id number] Spec Type: Surgical Subm Dr: Santa Estrada MD Tissues: A Joint/Knee (LT KNEE) Procedures: VIKASH, Gross/Micro L4, Decalcification Patient: Lucila Jacques [id number] (Continued) Specimen: [id number] Received: 04/29/24 (Continued) Signed (signature on file) Jamia Trevizo MD 05/07/24 0313 Specimen: [id number] Received: 04/29/24 Status: MICHAEL Young Num: [id number] Spec Type: Surgical Subm Dr: Santa Estrada MD Tissues: A Joint/Knee (LT KNEE) Procedures: HE, Gross/Micro L4, Decalcification Patient: Be Jacquesmaurice Hope [id number] (Continued) Specimen: [id number] Received: 04/29/24 (Continued) BONE AND TISSUE Specimen: [id number] Received: 04/29/24 Status: MICHAEL Young Num: [id number] Spec Type: Surgical Subm Dr: Santa Estrada MD Tissues: A Joint/Knee (LT KNEE) Procedures: HE, Gross/Micro L4, Decalcification Patient: Lucila Jacques [id number] (Continued) Signed (signature on file) Jamia Trevizo MD 05/07/24 1703 Normal [facility] Opiates [Presence] in Urine by Screen methodOrdered By: Yusef Curran on 04-29-2024 Opiates Screen Ql (U) Negative Negative [facility] Phencyclidine Screen Ql (U)O rdered By: Yusef Curran on 04-29-2024 Phencyclidine Ql (U) Negative Negative [facility] XR knee LT 2Von 04-29-2024 XR knee LT 2V [place] [address] XRay Report Signed Patient: Lucila Jacques MR#: [id number] [birth year] : 1990 Acct:[id number] Age/Sex: 33 / F ADM Date: 04/29/24 Loc: [place] Room: Type: [facility] Attending Dr: Santa Estrada II, MD [...] Harmeet Lopez M.D.04/29/2024 2:44 PM Dictation Location: [place] [address] Transcribed By: [facility] 04/29/24 1444 Dictated By: Harmeet Lopez DO 04/29/24 1443 Signed By: 04/29/24 1444 Normal [facility] XR tibia fibula LT 2V*on XR tibia fibula LT 2V* [facility] [address] [place] [address] XRay Report Signed Patient: Lucila Jacques MR#: [id number] [birth year] : 1990 Acct:[id number] Age/Sex: 33 / F ADM Date: 04/19/24 Loc: [facility] Room: Type: [facility] Attending Dr: Santa Estrada II, MD Copies to: Santa Estrada MD Ordering Provider: Santa Estrada MD Date of Service: 04/19/24 XR/XR tibia fibula LT 2V*: M17.12 - Unilateral primary osteoarthritis, left knee ([id number]) XR/XR femur LT 2V*: M17.12 - Unilateral [...] Harmeet Lopez M.D.04/19/2024 9:52 AM Dictation Location: [place] [address] Transcribed By: [facility] 04/19/2452 Dictated By: Harmeet Lopez DO 04/19/24 0950 Signed By: 04/19/2452 Normal [facility] Cytology Cervical or vaginal smear or scraping studyon 04-16-2024 [facility] Automated basophil %Ordered By: Santa Estrada on 04-15-2024 Basophils/100 WBC (Bld) 0.7 % . [facility] Comment on above: Performed By: #### B MP, CBC #### [address] #### NICOTINE, FRUC #### [facility] , Automated basophil countOrde red By: Santa Estrada on 04-15-2024 Basophils (Bld) [#/Vol] 0.0 10*3/uL 0.0-0.2 [facility] Comment on above: Result Comment: PERF ORMED BY: [place] [address] PATHOLOGIST REGULATORY AND COMPLIANCE TECHNICIAN GENO BENEDICT M.D. Performed By: #### B MP, CBC #### [address] #### NICOTINE, FRUC #### [facility] , Automated blood monocyte cou ntOrdered By: Santa Estrada on 04-15-2024 Monocytes (Bld) [#/Vol] 0.3 10*3/uL 0.0-0.8 [facility] Comment on above: Performed By: #### B MP, CBC #### [facility] [address] [place] [address] [place] #### NICOTINE, FRUC #### [facility] , Automated eosinophil %Ordere d By: Santa Estrada on 04-15-2024 Eosinophils/100 WBC (Bld) 3.0 % . [facility] Comment on above: Performed By: #### B MP, CBC #### [place] [address] [place] #### NICOTINE, FRUC #### [facility] , Automated eosinophil countOr dered By: Santa Estrada on 04-15-2024 Eosinophils (Bld) [#/Vol] 0.1 10*3/uL 0.0-0.45 [facility] Comment on above: Performed By: #### B MP, CBC #### [place] [address] [place] #### NICOTINE, FRUC #### [facility] , Automated monocyte %Ordered By: Santa Estrada on 04-15-2024 Monocytes/100 WBC (Bld) 7.6 % . [facility] Comment on above: Performed By: #### B MP, CBC #### [place] [address] [place] #### NICOTINE, FRUC #### [facility] , Automated neutrophil %Ordere d By: Santa Estrada on 04-15-2024 Neutrophils/100 WBC (Bld) 55.1 % . [facility] Comment on above: Performed By: #### B MP, CBC #### [place] [address] [place] #### NICOTINE, FRUC #### [facility] , Basic Metabolic Panelon 03-26 GFR/1.73 sq M.predicted MDRD (S/P/Bld) [Vol rate/Area] mL/min/{1.73_m2} Normal [facility] Comment on above: Performed By: #### A 1C WTH eA, ALB, [id number], HGB #### [place] [address] [place] #### NICOTINE #### [facility] , Bilirubin Test strip Ql (U)O rdered By: Santa Estrada on 04-15-2024 Bilirubin Ql (U) Negative Negative [facility] Calcium [Mass/volume] in Ser um or PlasmaOrdered By: Santa Estrada on 04-15-2024 Calcium [Mass/Vol] 9.0 mg/dL 8.6-10.3 [facility] Comment on above: Result Comment: PERF ORMED BY: [place] [address] PATHOLOGIST REGULATORY AND COMPLIANCE TECHNICIAN GENO BENEDICT M.D. Performed By: #### A 1C WTH eA, ALB, [id number], HGB #### [address] #### NICOTINE #### [facility] , Carbon dioxide, total [Moles /volume] in Serum or PlasmaOrdered By: Santa Estrada on 04-15-2024 CO2 [Moles/Vol] 26.3 mmol/L 21.0-31.[address] [facility] Comment on above: Performed By: #### A 1C WTH eA, ALB, [id number], HGB #### [facility] [address] [place] [address] #### NICOTINE #### [facility] , Chloride [Moles/volume] in S liam or PlasmaOrdered By: Santa Estrada on 04-15-2024 Chloride [Moles/Vol] 106 mmol/L 98-107 [facility] Comment on above: Performed By: #### A 1C WTH eA, ALB, [id number], HGB #### [place] [address] [place] #### NICOTINE #### [facility] , Color of Urine by AutoOrdere d By: Santa Estrada on 04-15-2024 Color (U) Yellow Yellow [facility] Comment on above: Order Comment: Name Collection Type:: Clean-Voided Midstream Performed By: #### U A #### [address] Complete Blood Count Auto Di ffon 04-15-2024 Mean Corpuscular HGB Conc 34.0 g/dL Normal 32.0-35.0 [facility] Comment on above: Performed By: #### B MP, CBC #### [place] [address] [place] #### NICOTINE, FRUC #### [facility] , NRBC% 0.1 /100{WBC} Normal 0-0.5 [facility] Comment on above: Performed By: #### B MP, CBC #### [place] [address] [place] #### NICOTINE, FRUC #### [facility] , Cotinine [Mass/volume] in Se rum or PlasmaOrdered By: Santa Estrada on 04-15-2024 Cotinine [Mass/Vol] <1.0 ng/mL . [facility] Comment on above: This test was develo ped and its performance characteristicsdetermined by [facility]. It has not been cleared orapproved by the Food and Drug Administration.Cotinine levels greater than 20.0 are consistent with theuse of tobacco or tobacco cessation products.Performed at: [facility] [address] [id number] Director: Marcellus Dave MD, Phone: [phone] Creatinine [Mass/volume] in Serum or PlasmaOrdered By: Santa Estrada on 04-15-2024 Creatinine [Mass/Vol] 0.65 mg/dL 0.60-1.20 [facility] Comment on above: Performed By: #### A 1C WTH eA, ALB, [id number], HGB #### [place] [address] [place] #### NICOTINE #### [facility] , Erythrocyte distribution wid th [Ratio] by Automated countOrdered By: Santa Estrada on 04-15-2024 Erythrocyte distribution width (RBC) [Ratio] 13.2 % 11.9-15.3 [facility] Comment on above: Performed By: #### B MP, CBC #### [place] [address] [place] #### NICOTINE, FRUC #### [facility] , Erythrocytes [#/volume] in B lood by Automated countOrdered By: Santa Estrada on 04-15-2024 RBC (Bld) [#/Vol] 4.52 10*6/uL 3.60-5.00 [facility] Comment on above: Performed By: #### B MP, CBC #### [facility] [address] [place] [address] [place] #### NICOTINE, FRUC #### [facility] , Fructosamineon 04-15-2024 Fructosamine 219 umol/L Normal 0-285 [facility] Comment on above: Result Comment: Publ ished reference interval for apparently healthy subjects between age 20 and 60 is 205 - 285 umol/L and in a poorly controlled diabetic population is 228 - 563 umol/L with a mean of 396 umol/L. Performed at: [facility] [address] [place] [id number] Chief Maintenance Supervisor: Dario West PhD, Phone: [phone] Performed By: #### A 1C WTH eA, ALB, [id number], HGB #### [facility] [address] [place] [address] [place] #### NICOTINE #### [facility] , Fructosamine [...] umol/Lwith a mean of 396 umol/L.Performed at: [facility] [address] [place], [place] [id number] Director: Dario West PhD, Phone: [phone] Glucose [Mass/volume] in Ser um or PlasmaOrdered By: Santa Estrada on 04-15-2024 Glucose [Mass/Vol] 88 mg/dL 70-100 [facility] Comment on above: ADA recommended refe rence rangeRandom Glucose Reference Range is dependent on time and content of last meal. Glucose of more than 200 mg/dL in a nonstressed, ambulatory subject supports the diagnosis of Diabetes Mellitus. Result Comment: [place] Glucose Reference Range is dependent on time and content of last meal. Glucose of more than 200 mg/dL in a nonstressed, ambulatory subject supports the diagnosis of Diabetes Mellitus. ADA recommended reference range Performed By: #### A 1C WTH eA, ALB, [id number], HGB #### [place] [address] [place] #### NICOTINE #### [facility] , Hematocrit [Volume Fraction] of Blood by Automated countOrdered By: Santa Estrada on 04-15-2024 Hematocrit (Bld) [Volume fraction] 40.4 % 34.0-46.4 [facility] Comment on above: Performed By: #### B MP, CBC #### [place] [address] [place] #### NICOTINE, FRUC #### [facility] , Hemoglobin [Mass/volume] in BloodOrdered By: Santa Estrada on 04-15-2024 Hemoglobin (Bld) [Mass/Vol] 13.7 g/dL 11.8-15.4 [facility] Comment on above: Performed By: #### B MP, CBC #### [facility] [address] [place] [address] [place] #### NICOTINE, FRUC #### [facility] , Ketones Auto test strip (U) [Mass/Vol]Ordered By: Santa Estrada on 04-15-2024 Ketones (U) [Mass/Vol] Negative Negative [facility] Leukocytes [#/volume] correc perla for nucleated erythrocytes in Blood by Automated counOrdered By: Santa Estrada on 04-15-2024 WBC corrected for nucl RBC Auto (Bld) [#/Vol] 4.1 10*3/uL 3.8-11.6 [facility] Leukocytes [#/volume] in Blo od by Automated countOrdered By: Santa Estrada on 04-15-2024 WBC (Bld) [#/Vol] 4.1 10*3/uL 3.8-11.6 [facility] Comment on above: Performed By: #### B MP, CBC #### [facility] [address] [place] [address] [place] #### NICOTINE, FRUC #### [facility] , Lymphocytes [#/volume] in Bl ood by Automated countOrdered By: Santa Estrada on 04-15-2024 Lymphocytes (Bld) [#/Vol] 1.4 10*3/uL 1.00-4.8 [facility] Comment on above: Performed By: #### B MP, CBC #### [place] [address] [place] #### NICOTINE, FRUC #### [facility] , Lymphocytes/100 leukocytes i n Blood by Automated countOrdered By: Santa Estrada on 04-15-2024 Lymphocytes/100 WBC (Bld) 33.6 % . [facility] Comment on above: Performed By: #### B MP, CBC #### [place] [address] [place] #### NICOTINE, FRUC #### [facility] , MCH [Entitic mass] by Automa perla countOrdered By: Santa Estrada on 04-15-2024 MCH (RBC) [Entitic mass] 30.4 pg 24.7-34.3 [facility] Comment on above: Performed By: #### B MP, CBC #### [facility] [address] [place] [address] [place] #### NICOTINE, FRUC #### [facility] , MCHC Auto (RBC) [Mass/Vol]Or dered By: Santa Estrada on 04-15-2024 MCHC (RBC) [Mass/Vol] 34.0 g/dL 32.0-35.0 [facility] MCV [Entitic volume] by Auto mated countOrdered By: Santa Estrada on 04-15-2024 MCV (RBC) [Entitic vol] 89.4 fL 80-100 [facility] Comment on above: Performed By: #### B MP, CBC #### [place] [address] [place] #### NICOTINE, FRUC #### [facility] , Neutrophils [#/volume] in Bl ood by Automated countOrdered By: Santa Estrada on 04-15-2024 Neutrophils (Bld) [#/Vol] 2.2 10*3/uL 1.8-7.7 [facility] Comment on above: Performed By: #### B MP, CBC #### [facility] [address] [place] [address] #### NICOTINE, FRUC #### [facility] , Nicotine [Mass/volume] in Se rum or PlasmaOrdered By: Santa Estrada on 04-15-2024 Nicotine [Mass/Vol] <1.0 ng/mL . [facility] Comment on above: This test was develo ped and its performance characteristicsdetermined by [employer]. It has not been cleared orapproved by the Food and Drug Administration.Nicotine levels greater than 2.0 are consistent with theuse of tobacco or tobacco cessation products. Nicotine/Cotinine Bloodon Cotinine, Blood <1.0 Normal . [facility] Comment on above: Result Comment: This test was developed and its performance characteristics determined by [employer]. It has not been cleared or approved by the Food and Drug Administration. Cotinine levels greater than 20.0 are consistent with the use of tobacco or tobacco cessation products. Performed at: [address] [id number] Chief Maintenance Supervisor: Mracellus Dave MD, Phone: [phone] PERFORMED BY: [place] [address] PATHOLOGIST REGULATORY AND COMPLIANCE TECHNICIAN GENO BENEDICT M.D. Performed By: #### A 1C WTH eA, ALB, [id number], HGB #### [facility] [address] [place] [address] [place] #### NICOTINE #### [facility] , Nicotine, Blood <1.0 Normal . [facility] Comment on above: Result Comment: This test was developed and its performance characteristics determined by [facility]. It has not been cleared or approved by the Food and Drug Administration. Nicotine levels greater than 2.0 are consistent with the use of tobacco or tobacco cessation products. Performed By: #### A 1C WTH eA, ALB, [id number], HGB #### [place] [address] [place] #### NICOTINE #### [facility] , Nitrite [...] Blood group O Rh(D) positive Normal [facility] Comment on above: Order Comment: Date of Surgery: [id number] Result Comment: PERF ORMED BY: [address] [place] [address] PATHOLOGIST REGULATORY AND COMPLIANCE TECHNICIAN GENO BENEDICT M.D. Platelet mean volume [Entiti c volume] in Blood by Automated countOrdered By: Santa Estrada on 04-15-2024 Platelet mean volume (Bld) [Entitic vol] 7.3 fL 6.3-10.7 [facility] Comment on above: Performed By: #### B MP, CBC #### [place] [address] [place] #### NICOTINE, FRUC #### [facility] , Platelets [#/volume] in Bloo d by Automated countOrdered By: Santa Estrada on 04-15-2024 Platelets (Bld) [#/Vol] 230 10*3/uL 150-450 [facility] Comment on above: Performed By: #### B MP, CBC #### [facility] [address] [place] [address] [place] #### NICOTINE, FRUC #### [facility] , Potassium [Moles/volume] in Serum or PlasmaOrdered By: Santa Estrada on 04-15-2024 Potassium [Moles/Vol] 4.0 mmol/L 3.5-5.1 [facility] Comment on above: Performed By: #### A 1C WTH eA, ALB, [id number], HGB #### [place] [address] [place] #### NICOTINE #### [facility] , Protein Auto test strip (U) [Mass/Vol]Ordered By: Santa Estrada on 04-15-2024 Protein (U) [Mass/Vol] Negative Negative [facility] Serum or plasma anion gap de terminationOrdered By: Santa Estrada on 04-15-2024 Anion gap [Moles/Vol] 6.7 mmol/L 6.0-15.0 [facility] Comment on above: Performed By: #### A 1C WTH eA, ALB, [id number], HGB #### [facility] [address] [place] [address] [place] #### NICOTINE #### [facility] , Sodium [Moles/volume] in Ser um or PlasmaOrdered By: Santa Estrada on 04-15-2024 Sodium [Moles/Vol] 135 mmol/L Low 136-145 [facility] Comment on above: Performed By: #### A 1C WTH eA, ALB, [id number], HGB #### [facility] [address] [place] [address] #### NICOTINE #### [facility] , Specific gravity Auto test s trip (U) [Rel density]Ordered By: Santa Estrada on 04-15-2024 Specific gravity (U) [Rel density] 1.009 1.001-1.03 0 [facility] Urea nitrogen [Mass/volume] in Serum or PlasmaOrdered By: Santa Estrada on 04-15-2024 Urea nitrogen [Mass/Vol] 10 mg/dL 04-18 [facility] Comment on above: Performed By: #### A 1C WTH eA, ALB, [id number], HGB #### [facility] [address] [place] [address] #### NICOTINE #### [facility] , Urinalysison 04-15-2024 Appearance (U) Clear Normal Clear [facility] Comment on above: Order Comment: Name Collection Type:: Clean-Voided Midstream Performed By: #### U A #### [address] Bilirubin,Urine Negative Normal Negative [facility] Comment on above: Order Comment: Name Collection Type:: Clean-Voided Midstream Performed By: #### U A #### [address] Glucose Ql (U) Normal Normal Normal [facility] Comment on above: Order Comment: Name Collection Type:: Clean-Voided Midstream Performed By: #### U A #### [address] Ketones Ql (U) Negative Normal Negative [facility] Comment on above: Order Comment: Name Collection Type:: Clean-Voided Midstream Performed By: #### U A #### [address] Leukocyte esterase Test strip Ql (U) Negative Normal Negative [facility] Comment on above: Order Comment: Name Collection Type:: Clean-Voided Midstream Performed By: #### U A #### [place] [address] [place] Nitrite,Urine Negative Normal Negative [facility] Comment on above: Order Comment: Name Collection Type:: Clean-Voided Midstream Performed By: #### U A #### [address] Occult Blood,Urine Negative Normal Negative [facility] Comment on above: Order Comment: Name Collection Type:: Clean-Voided Midstream Result Comment: PERF ORMED BY: [place] [address] PATHOLOGIST REGULATORY AND COMPLIANCE TECHNICIAN GENO BENEDICT M.D. Performed By: #### U A #### [address] Protein,Urine Negative Normal Negative [facility] Comment on above: Order Comment: Name Collection Type:: Clean-Voided Midstream Performed By: #### U A #### [address] Specificy [place],Urine 1.009 Normal 1.001-1.03 0 [facility] Comment on above: Order Comment: Name Collection Type:: Clean-Voided Midstream Performed By: #### U A #### [address] Urobilinogen,Urine Normal Normal Normal [facility] Comment on above: Order Comment: Name Collection Type:: Clean-Voided Midstream Performed By: #### U A #### [address] Urine clarity by refractomet ry automatedOrdered [...] on 04-15-2024 pH (U) 8.0 [pH] 5.0-9.0 [facility] Comment on above: Order Comment: Name Collection Type:: Clean-Voided Midstream Performed By: #### U A #### [facility] [address] Urobilinogen Auto test strip (U) [Mass/Vol]Ordered By: Santa Estrada on 04-15-2024 Urobilinogen (U) [Mass/Vol] Normal mg/dL Normal [facility] CBC with Diffon 03-14-2024 Abs. Basophil 0.06 k/uL Normal 0.00-0.20 [facility] Comment on above: Performed By: #### C DP, VD25, FEBC, AHCV, GLYHGB, HIVCMB, TSHX, FERI, LIPRF, B12, CP #### [email or web address] [address] [place] [address] [phone] Chief Maintenance Supervisor: Isreal Astorga MD Abs.Imm.Granulocyte <0.03 Normal 0.00-0.30 [facility] Comment on above: Performed By: #### C DP, VD25, FEBC, AHCV, GLYHGB, HIVCMB, TSHX, FERI, LIPRF, B12, CP #### [email or web address] [address] [place] [address] [phone] Chief Maintenance Supervisor: Isreal Astorga MD Abs.Neutrophil (Seg) 2.66 k/uL Normal 1.50-8.10 [facility] Comment on above: Performed By: #### C DP, VD25, FEBC, AHCV, GLYHGB, HIVCMB, TSHX, FERI, LIPRF, B12, CP #### [email or web address] [address] [place] [address] [phone] Chief Maintenance Supervisor: Isreal Astorga MD Basophils/100 WBC (Bld) 1 % Normal 0-2 [facility] Comment on above: Performed By: #### C DP, VD25, FEBC, AHCV, GLYHGB, HIVCMB, TSHX, FERI, LIPRF, B12, CP #### [address] [phone] Chief Maintenance Supervisor: Isreal Astorga MD Eosinophils (Bld) [#/Vol] 0.28 10*3/uL Normal 0.00-0.44 [facility] Comment on above: Performed By: #### C DP, VD25, FEBC, AHCV, GLYHGB, HIVCMB, TSHX, FERI, LIPRF, B12, CP #### [place] [phone] Chief Maintenance Supervisor: Isreal Astorga MD Eosinophils/100 WBC (Bld) 5 % High 1-4 [facility] Comment on above: Performed By: #### C DP, VD25, FEBC, AHCV, GLYHGB, HIVCMB, TSHX, FERI, LIPRF, B12, CP #### [place] [phone] Chief Maintenance Supervisor: Isreal Astorga MD Erythrocyte distribution width (RBC) [Ratio] 12.6 % Normal 11.8-14.4 [facility] Comment on above: Performed By: #### C DP, VD25, FEBC, AHCV, GLYHGB, HIVCMB, TSHX, FERI, LIPRF, B12, CP #### [place] [address] Chief Maintenance Supervisor: Isreal Astorga MD Hematocrit (Bld) [Volume fraction] 38.8 % Normal 36.3-47.1 [facility] Comment on above: Performed By: #### C DP, VD25, FEBC, AHCV, GLYHGB, HIVCMB, TSHX, FERI, LIPRF, B12, CP #### [address] [phone] Chief Maintenance Supervisor: Isreal Astorga MD Hemoglobin (Bld) [Mass/Vol] 12.9 g/dL Normal 11.9-15.1 [facility] Comment on above: Performed By: #### C DP, VD25, FEBC, AHCV, GLYHGB, HIVCMB, TSHX, FERI, LIPRF, B12, CP #### [address] [phone] Chief Maintenance Supervisor: Isreal Astorga MD Immature granulocytes/100 WBC (Bld) 0 % Normal 0 [facility] Comment on above: Performed By: #### C DP, VD25, FEBC, AHCV, GLYHGB, HIVCMB, TSHX, FERI, LIPRF, B12, CP #### [address] [phone] Chief Maintenance Supervisor: Isreal Astorga MD Lymphocytes (Bld) [#/Vol] 1.69 10*3/uL Normal 1.10-3.70 [facility] Comment on above: Performed By: #### C DP, VD25, FEBC, AHCV, GLYHGB, HIVCMB, TSHX, FERI, LIPRF, B12, CP #### [address] [phone] Chief Maintenance Supervisor: Isreal Astorga MD Lymphocytes/100 WBC (Bld) 33 % Normal 24-43 [facility] Comment on above: Performed By: #### C DP, VD25, FEBC, AHCV, GLYHGB, HIVCMB, TSHX, FERI, LIPRF, B12, CP #### [address] [address] Chief Maintenance Supervisor: Isreal Astorga MD MCH (RBC) [Entitic mass] 29.9 pg Normal 25.2-33.5 [facility] Comment on above: Performed By: #### C DP, VD25, FEBC, AHCV, GLYHGB, HIVCMB, TSHX, FERI, LIPRF, B12, CP #### [address] [phone] Chief Maintenance Supervisor: Isreal Astorga MD MCHC (RBC) [Mass/Vol] 33.2 g/dL Normal 28.4-34.8 [facility] Comment on above: Performed By: #### C DP, VD25, FEBC, AHCV, GLYHGB, HIVCMB, TSHX, FERI, LIPRF, B12, CP #### [address] [phone] Chief Maintenance Supervisor: Isreal Astorga MD MCV (RBC) [Entitic vol] 89.8 fL Normal 82.6-102.9 [facility] Comment on above: Performed By: #### C DP, VD25, FEBC, AHCV, GLYHGB, HIVCMB, TSHX, FERI, LIPRF, B12, CP #### [place] [address] Chief Maintenance Supervisor: Isreal Astorga MD Monocytes (Bld) [#/Vol] 0.47 10*3/uL Normal 0.10-1.20 [facility] Comment on above: Performed By: #### C DP, VD25, FEBC, AHCV, GLYHGB, HIVCMB, TSHX, FERI, LIPRF, B12, CP #### [place] [address] Chief Maintenance Supervisor: Isreal Astorga MD Monocytes/100 WBC (Bld) 9 % Normal 3-12 [facility] Comment on above: Performed By: #### C DP, VD25, FEBC, AHCV, GLYHGB, HIVCMB, TSHX, FERI, LIPRF, B12, CP #### [address] [address] Chief Maintenance Supervisor: Isreal Astorga MD Neutrophil (Seg) 52 % Normal 36-65 [facility] Comment on above: Performed By: #### C DP, VD25, FEBC, AHCV, GLYHGB, HIVCMB, TSHX, FERI, LIPRF, B12, CP #### [address] [address] Chief Maintenance Supervisor: Isreal Astorga MD NRBC Automated 0.0 per 100 WBC Normal 0.0 [facility] Comment on above: Performed By: #### C DP, VD25, FEBC, AHCV, GLYHGB, HIVCMB, TSHX, FERI, LIPRF, B12, CP #### [address] [address] Chief Maintenance Supervisor: Isreal Astorga MD Platelet mean volume (Bld) [Entitic vol] 9.7 fL Normal 8.1-13.5 [facility] Comment on above: Performed By: #### C DP, VD25, FEBC, AHCV, GLYHGB, HIVCMB, TSHX, FERI, LIPRF, B12, CP #### [address] [address] Chief Maintenance Supervisor: Isreal Astorga MD Platelets (Bld) [#/Vol] 256 10*3/uL Normal 138-453 [facility] Comment on above: Performed By: #### C DP, VD25, FEBC, AHCV, GLYHGB, HIVCMB, TSHX, FERI, LIPRF, B12, CP #### [address] [address] Chief Maintenance Supervisor: Isreal Astorga MD RBC (Bld) [#/Vol] 4.32 10*6/uL Normal 3.95-5.11 [facility] Comment on above: Performed By: #### C DP, VD25, FEBC, AHCV, GLYHGB, HIVCMB, TSHX, FERI, LIPRF, B12, CP #### [address] [phone] Chief Maintenance Supervisor: Isreal Astorga MD WBC (Bld) [#/Vol] 5.2 10*3/uL Normal 3.5-11.3 [facility] Comment on above: Performed By: #### C DP, VD25, FEBC, AHCV, GLYHGB, HIVCMB, TSHX, FERI, LIPRF, B12, CP #### [address] [phone] Chief Maintenance Supervisor: Isreal Astorga MD Comp Metabolic Profon 2023 Albumin [Mass/Vol] 4.2 g/dL Normal 3.5-5.2 [facility] Comment on above: Performed By: #### C DP, VD25, FEBC, AHCV, GLYHGB, HIVCMB, TSHX, FERI, LIPRF, B12, CP #### [place] [address] Chief Maintenance Supervisor: Isreal Astorga MD Albumin/Glob Ratio 2.0 Normal 1.0-2.5 [facility] Comment on above: Performed By: #### C DP, VD25, FEBC, AHCV, GLYHGB, HIVCMB, TSHX, FERI, LIPRF, B12, CP #### [address] [address] Chief Maintenance Supervisor: Isreal Astorga MD Alkaline Phos 72 U/L Normal 35-104 [facility] Comment on above: Performed By: #### C DP, VD25, FEBC, AHCV, GLYHGB, HIVCMB, TSHX, FERI, LIPRF, B12, CP #### [place] [address] Chief Maintenance Supervisor: Isreal Astorga MD ALT [Catalytic activity/Vol] 21 U/L Normal 10-35 [facility] Comment on above: Performed By: #### C DP, VD25, FEBC, AHCV, GLYHGB, HIVCMB, TSHX, FERI, LIPRF, B12, CP #### [address] [phone] Chief Maintenance Supervisor: Isreal Astorga MD Anion gap [Moles/Vol] 8 mmol/L Low 9-16 [facility] Comment on above: Performed By: #### C DP, VD25, FEBC, AHCV, GLYHGB, HIVCMB, TSHX, FERI, LIPRF, B12, CP #### [address] [phone] Chief Maintenance Supervisor: Isreal Astorga MD AST [Catalytic activity/Vol] 23 U/L Normal 10-35 [facility] Comment on above: Performed By: #### C DP, VD25, FEBC, AHCV, GLYHGB, HIVCMB, TSHX, FERI, LIPRF, B12, CP #### [address] [address] Chief Maintenance Supervisor: Isreal Astorga MD Bilirubin [Mass/Vol] 0.4 mg/dL Normal 0.00-1.20 [facility] Comment on above: Performed By: #### C DP, VD25, FEBC, AHCV, GLYHGB, HIVCMB, TSHX, FERI, LIPRF, B12, CP #### [address] [phone] Chief Maintenance Supervisor: Isreal Astorga MD Calcium [Mass/Vol] 8.8 mg/dL Normal 8.6-10.4 [facility] Comment on above: Performed By: #### C DP, VD25, FEBC, AHCV, GLYHGB, HIVCMB, TSHX, FERI, LIPRF, B12, CP #### [address] [address] Chief Maintenance Supervisor: Isreal Astorga MD Chloride [Moles/Vol] 106 mmol/L Normal 98-107 [facility] Comment on above: Performed By: #### C DP, VD25, FEBC, AHCV, GLYHGB, HIVCMB, TSHX, FERI, LIPRF, B12, CP #### [address] [phone] Chief Maintenance Supervisor: Isreal Astorga MD CO2 [Moles/Vol] 25 mmol/L Normal 20-31 [facility] Comment on above: Performed By: #### C DP, VD25, FEBC, AHCV, GLYHGB, HIVCMB, TSHX, FERI, LIPRF, B12, CP #### [address] [phone] Chief Maintenance Supervisor: Isreal Atsorga MD Creatinine [Mass/Vol] 0.7 mg/dL Normal 0.50-0.90 [facility] Comment on above: Performed By: #### C DP, VD25, FEBC, AHCV, GLYHGB, HIVCMB, TSHX, FERI, LIPRF, B12, CP #### [address] [phone] Chief Maintenance Supervisor: Isreal Astorga MD GFR/1.73 sq M.predicted among non-blacks MDRD (S/P/Bld) [Vol rate/Area] mL/min/{1.73_m2} Normal >60 [facility] Comment on above: Result Comment: These results [...] HIVCMB, TSHX, FERI, LIPRF, B12, CP #### [address] [phone] Chief Maintenance Supervisor: Isreal Astorga MD Glucose [Mass/Vol] 94 mg/dL Normal 74-99 [facility] Comment on above: Performed By: #### C DP, VD25, FEBC, AHCV, GLYHGB, HIVCMB, TSHX, FERI, LIPRF, B12, CP #### [address] [address] Chief Maintenance Supervisor: Isreal Astorga MD Potassium [Moles/Vol] 3.8 mmol/L Normal 3.7-5.3 [facility] Comment on above: Performed By: #### C DP, VD25, FEBC, AHCV, GLYHGB, HIVCMB, TSHX, FERI, LIPRF, B12, CP #### [address] [address] Chief Maintenance Supervisor: Isreal Astorga MD Protein [Mass/Vol] 6.7 g/dL Normal 6.6-8.7 [facility] Comment on above: Performed By: #### C DP, VD25, FEBC, AHCV, GLYHGB, HIVCMB, TSHX, FERI, LIPRF, B12, CP #### [address] [address] Chief Maintenance Supervisor: Isreal Astorga MD Sodium [Moles/Vol] 139 mmol/L Normal 136-145 [facility] Comment on above: Performed By: #### C DP, VD25, FEBC, AHCV, GLYHGB, HIVCMB, TSHX, FERI, LIPRF, B12, CP #### [address] [address] Chief Maintenance Supervisor: Isreal Astorga MD Urea nitrogen [Mass/Vol] 12 mg/dL Normal 6-20 [facility] Comment on above: Performed By: #### C DP, VD25, FEBC, AHCV, GLYHGB, HIVCMB, TSHX, FERI, LIPRF, B12, CP #### [address] [phone] Chief Maintenance Supervisor: Isreal Astorga MD Ferritinon 03-14-2024 Ferritin [Mass/Vol] 133 ng/mL Normal 13-150 [facility] Comment on above: Result Comment: FERRITIN Reference Ranges: Adult Males 20 - 60 years: 30 - 400 ng/mL Adult females 17 - 60 years: 13 - 150 ng/mL Adults greater than 60 years: no established reference range Pediatrics: no established reference range Performed By: #### C DP, VD25, FEBC, AHCV, GLYHGB, HIVCMB, TSHX, FERI, LIPRF, B12, CP #### [address] [phone] Chief Maintenance Supervisor: Isreal Astorga MD HIV Ag/Abon 03-14-2024 HIV Ag/Ab Non-Reactive Normal NR [facility] Comment on above: Result Comment: No l aboratory evidence of HIV infection. If acute HIV infection is suspected, consider testing for HIV-1 RNA. Performed By: #### C DP, VD25, FEBC, AHCV, GLYHGB, HIVCMB, TSHX, FERI, LIPRF, B12, CP #### [address] [phone] Chief Maintenance Supervisor: Isreal Astorga MD Hemoglobin A1Con 03-14-2024 Glucose [Mass/Vol] 94 mg/dL Normal [facility] Comment on above: Result Comment: The ADA and AACC recommend providing the estimated average glucose result to permit better patient understanding of their HBA1c result. Performed By: #### C DP, VD25, FEBC, AHCV, GLYHGB, HIVCMB, TSHX, FERI, LIPRF, B12, CP #### [address] [phone] Chief Maintenance Supervisor: Isreal Astorga MD HbA1c (Bld) [Mass fraction] 4.9 % Normal 4.0-6.0 [facility] Comment on above: Performed By: #### C DP, VD25, FEBC, AHCV, GLYHGB, HIVCMB, TSHX, FERI, LIPRF, B12, CP #### [email or web address] [address] [place] [address] [phone] Chief Maintenance Supervisor: Isreal Astorga MD Hep C Abon 03-14-2024 Hep C Ab Non-Reactive Normal NR [facility] Comment on above: Result Comment: The hepatitis [...] HIVCMB, TSHX, FERI, LIPRF, B12, CP #### [email or web address] [address] [place] [address] [phone] Chief Maintenance Supervisor: Isreal Astorga MD Iron Binding Cap.on 03-14-20 24 % Fe Saturation 44 % Normal 20-55 [facility] Comment on above: Performed By: #### C DP, VD25, FEBC, AHCV, GLYHGB, HIVCMB, TSHX, FERI, LIPRF, B12, CP #### [facility] [address] [place] [address] [phone] Chief Maintenance Supervisor: Isreal Astorga MD Iron [Mass/Vol] 107 ug/dL Normal 37-145 [facility] Comment on above: Performed By: #### C DP, VD25, FEBC, AHCV, GLYHGB, HIVCMB, TSHX, FERI, LIPRF, B12, CP #### [email or web address] [address] [place] [address] [phone] Chief Maintenance Supervisor: Isreal Astorga MD Total Fe Binding Cap 243 ug/dL Low 250-450 [facility] Comment on above: Performed By: #### C DP, VD25, FEBC, AHCV, GLYHGB, HIVCMB, TSHX, FERI, LIPRF, B12, CP #### [address] [phone] Chief Maintenance Supervisor: Isreal Astorga MD Unbound Fe Bind Cap 136 ug/dL Normal 112-347 [facility] Comment on above: Performed By: #### C DP, VD25, FEBC, AHCV, GLYHGB, HIVCMB, TSHX, FERI, LIPRF, B12, CP #### [address] [phone] Chief Maintenance Supervisor: Isreal Astorga MD Lipid Prof, Fastingon 2023 Cholesterol [Mass/Vol] 174 mg/dL Normal 0-199 [facility] Comment on above: Result Comment: Cholesterol Guidelines: <200 Desirable 200-240 Borderline >240 Undesirable Performed By: #### C DP, VD25, FEBC, AHCV, GLYHGB, HIVCMB, TSHX, FERI, LIPRF, B12, CP #### [address] [address] Chief Maintenance Supervisor: Isreal Astorga MD Cholesterol in HDL [Mass/Vol] 57 mg/dL Normal >40 [facility] Comment on above: Result Comment: HDL Guidelines: <40 Undesirable 40-59 Borderline >59 Desirable Performed By: #### C DP, VD25, FEBC, AHCV, GLYHGB, HIVCMB, TSHX, FERI, LIPRF, B12, CP #### [address] [phone] Chief Maintenance Supervisor: Isreal Astorga MD Cholesterol in LDL [Mass/Vol] 96 mg/dL Normal 0-100 [facility] Comment on above: Result Comment: LDL Guidelines: <100 Desirable 100-129 Near to/above Desirable 130-159 Borderline >159 Undesirable Direct (measured) LDL and calculated LDL are not interchangeable tests. Performed By: #### C DP, VD25, FEBC, AHCV, GLYHGB, HIVCMB, TSHX, FERI, LIPRF, B12, CP #### [address] [phone] Chief Maintenance Supervisor: Isreal Astorga MD Cholesterol in VLDL [Mass/Vol] 22 mg/dL Normal [facility] Comment on above: Performed By: #### C DP, VD25, FEBC, AHCV, GLYHGB, HIVCMB, TSHX, FERI, LIPRF, B12, CP #### [address] [phone] Chief Maintenance Supervisor: Isreal Astorga MD Cholesterol.total/Chol esterol in HDL [Mass ratio] 3.0 {ratio} Normal [facility] Comment on above: Performed By: #### C DP, VD25, FEBC, AHCV, GLYHGB, HIVCMB, TSHX, FERI, LIPRF, B12, CP #### [address] [address] Chief Maintenance Supervisor: Isreal Astorga MD Triglyceride,Fasting 108 mg/dL Normal 0-149 [facility] Comment on above: Result Comment: Triglyceride Guidelines: <150 Desirable 150-199 Borderline 200-499 High >499 Very high Based on AHA Guidelines for fasting triglyceride, June 2012. Performed By: #### C DP, VD25, FEBC, AHCV, GLYHGB, HIVCMB, TSHX, FERI, LIPRF, B12, CP #### [address] [address] Chief Maintenance Supervisor: Isreal Astorga MD TSH w/reflex to FT4on 2023 Thyroid Stim. Horm. 2.37 uIU/mL Normal 0.27-4.20 [facility] Comment on above: Performed By: #### C DP, VD25, FEBC, AHCV, GLYHGB, HIVCMB, TSHX, FERI, LIPRF, B12, CP #### [address] [address] Chief Maintenance Supervisor: Isreal Astorga MD Vitamin B12on 03-14-2024 Cobalamin (Vitamin B12) [Mass/Vol] 695 pg/mL Normal 232-1245 [facility] Comment on above: Performed By: #### C DP, VD25, FEBC, AHCV, GLYHGB, HIVCMB, TSHX, FERI, LIPRF, B12, CP #### [facility] [address] [place], [place] [phone] Chief Maintenance Supervisor: Isreal Astorga MD Vitamin D 25 OHon 03-14-2024 Vitamin D 25 OH 17.4 ng/mL Low 30.0-100.0 [facility] Comment on above: Result Comment: Reference Range: Vitamin D status Range Deficiency <20 ng/mL Mild Deficiency 20-30 ng/mL Sufficiency 30-100 ng/mL Toxicity >100 ng/mL Performed By: #### C DP, VD25, FEBC, AHCV, GLYHGB, HIVCMB, TSHX, FERI, LIPRF, B12, CP #### [facility] [address] [place], [place] [phone] Chief Maintenance Supervisor: Isreal Astorga MD Patient Handouton 03-13-2024 Patient Handout Custom [facility] [address] [facility], [address], [place] Date: 03/13/2024 RE: Lucila Jacques To whom it may concern, Lucila has been under my professional care due to a surgical procedure performed on 02/27/2024. She may return to work with no restrictions on 03/20/2024. Thank you, Peter Booth M.D. Normal [facility] Release of Informationon Release of Information [id number] Normal [facility] A1C with Estimated Average G luon 03-12-2024 Glucose [Mass/Vol] 105 mg/dL Normal [facility] Comment on above: Result Comment: PERF ORMED BY: [facility] [address] [place] [address] PATHOLOGIST REGULATORY AND COMPLIANCE TECHNICIAN GENO BENEDICT M.D. Performed By: #### A 1C WTH eA, ALB, [id number], HGB #### [facility] [address] [place] [address] [place] #### NICOTINE #### [facility] , Albumin Levelon 03-12-2024 Albumin [Mass/Vol] 4.0 g/dL Normal 3.5-5.7 [facility] Comment on above: Performed By: #### A 1C WTH eA, ALB, [id number], HGB #### [facility] [address] [place] [address] [place] #### NICOTINE #### [facility] , Albumin [Mass/volume] in Ser um or Plasma by Bromocresol green (BCG) dye binding methoOrdered By: Santa Estrada on 03-12-2024 Albumin BCG dye [Mass/Vol] 4.0 g/dL 3.5-5.7 [facility] Cotinine [Mass/volume] in Se rum or PlasmaOrdered By: Santa Estrada on 03-12-2024 Cotinine [Mass/Vol] 3.7 ng/mL . [facility] Comment on above: This test was develo ped and its performance characteristicsdetermined by [facility]. It has not been cleared orapproved by the Food and Drug Administration.Cotinine levels greater than 20.0 are consistent with theuse of tobacco or tobacco cessation products.Performed at: [address] [id number] Director: Marcellus Dave MD, Phone: [phone] Glucose mean value [Mass/vol ume] in Blood [...] By: #### A 1C WTH eA, ALB, [id number], HGB #### [address] #### NICOTINE #### [facility] , Hemoglobin [Mass/volume] in BloodOrdered By: Santa Estrada on 03-12-2024 Hemoglobin (Bld) [Mass/Vol] 12.8 g/dL Normal 11.8-15.4 [facility] Comment on above: Result Comment: PERF ORMED BY: [place] [address] PATHOLOGIST REGULATORY AND COMPLIANCE TECHNICIAN GENO BENEDICT M.D. Performed By: #### A 1C WTH eA, ALB, [id number], HGB #### [address] #### NICOTINE #### [facility] , MRSA Cultureon 03-12-2024 MRSA Culture No MRSA Isolated 2 D ays PERFORMED BY: [place] [address] PATHOLOGIST REGULATORY AND COMPLIANCE TECHNICIAN GENO BENEDICT M.D. Normal [facility] Comment on above: Performed By: #### C UMRSA #### [address] Nicotine [Mass/volume] in Se rum or PlasmaOrdered By: Santa Estrada on 03-12-2024 Nicotine [Mass/Vol] <1.0 ng/mL . [facility] Comment on above: This test was develo ped and its performance characteristicsdetermined by [facility]. It has not been cleared orapproved by the Food and Drug Administration.Nicotine levels greater than 2.0 are consistent with theuse of tobacco or tobacco cessation products. Nicotine/Cotinine Bloodon Cotinine, Blood 3.7 ng/mL Normal . [facility] Comment on above: Result Comment: This test was developed and its performance characteristics determined by [facility]. It has not been cleared or approved by the Food and Drug Administration. Cotinine levels greater than 20.0 are consistent with the use of tobacco or tobacco cessation products. Performed at: [facility] [address] [id number] Chief Maintenance Supervisor: Marcellus Dave MD, Phone: [phone] PERFORMED BY: [place] [address] PATHOLOGIST REGULATORY AND COMPLIANCE TECHNICIAN GENO BENEDICT M.D. Performed By: #### A 1C WTH eA, ALB, [id number], HGB #### [address] #### NICOTINE #### [facility] , Nicotine, Blood <1.0 Normal . [facility] Comment on above: Result Comment: This test was developed and its performance characteristics determined by [facility]. It has not been cleared or approved by the Food and Drug Administration. Nicotine levels greater than 2.0 are consistent with the use of tobacco or tobacco cessation products. Performed By: #### A 1C WTH eA, ALB, [id number], HGB #### [address] #### NICOTINE #### [facility] , Vitamin D 25 Hydroxy Totalon 03-12-2024 Vitamin D 25 Hydroxy Total 18.4 ng/mL Low 30-100 [facility] Comment on above: Result Comment: EVE MIN D STATUS 25(OH)VITAMIN D RANGE (ng/mL) Deficient <20 Insufficient 20 to <30 Sufficient 30 to 100 Reference: Ever MF,Juliano NC, Daria-Polo VELAZQUEZ, et al. Evaluation,treatment, and prevention of vitamin D deficiency; an Endocrine Society clinical practice guideline. JCEM. 2010; 96(7):1911-30. PERFORMED BY: [place] [address] PATHOLOGIST REGULATORY AND COMPLIANCE TECHNICIAN GENO BENEDICT M.D. Performed By: #### A 1C WTH eA, ALB, [id number], HGB #### [facility] [address] #### NICOTINE #### [facility] , Vitamin D+Metabolites [Mass/ volume] in Serum or PlasmaOrdered By: Santa Estrada on 03-12-2024 Vitamin D+Metabolites [Mass/Vol] 18.4 ng/mL Low 30-100 [facility] Comment on above: VITAMIN D STATUS 25( OH)VITAMIN D RANGE (ng/mL) Deficient <20 Insufficient 20 to <30Sufficient 30 to 100Reference: Ever MF,Juliano GARCIA, Tate VELAZQUEZ, et al. Evaluation,treatment, and prevention of vitamin D deficiency; an Endocrine Society clinical practice guideline. JCEM. 2010; 96(7):1911-30. Wound methicillin resistant Staphylococcus aureus (MRSA) cultureOrdered By: Santa Estrada on 03-12-2024 MRSA isol Org specific cx Ql (Unsp spec) No MRSA Isolated 2 Days [facility] Coding Summaryon 03-07-2024 Coding Summary HTMLBase 64 ZjkeyyhdJLv8fOe+PGhlYWQ+PE1 FRLZcD52cmHBcjN4nK1KBSCzXYb gwSBSBFFwENrKmoxDcWU0qmRFkE XJu IC8+HR0iFOAfLurppGByy3N9jON 6S50snj1oCSrktTM0ZNBqFaAhgt log8gwoXn3FKgkVszxYrGi AMTllJ78RFP3eS39Lk35iUFunPY wf5wkkLp7LpRaKRFpGHU6sHhqKW tvb9VnFDRtM20fpUVko4M0 DGOiqBecfHKmMnUngKB3sK3uCHf dpnlxs5ktihukXkm5xo40aQZqb1 W0jDH3Q8GrboB0HPFcgBFw FfewhKISsB6hqzgob8xkhzpvTuM hLDCpHDh9IGf0EVIoaIgzVdLyXK 59SZX8BZZiuvWsH1ThDFSu kJauQoA6s0B6Fa4VI2ULDooqZ3K NTUFSWTwvdGQ+AD71bq12E9AiJp zdSno7AXRtIUL5nAJ9iE7j VZUfYApra9X8eGM8C2UfvbUeue8 kc8bvAAEcVYxwU06zvOXmq2K2PL HgxAU1GITsnStxRpDedC01 Oyc+IRWfkIuhs5YzFiwpw9vyx3k wwTc8UrbfZFYcgvCzmOezSMP8a1 XoDd9oRXPtrKQ7jPI8tG0a AgHnSnM6RYevP282MsQnrFWdUui sI07xG1LbxMT+OOLpCup5DORoeP goBT1nE2TyNAQpdhxatIOs aNhiKZ5pSDSdefsyMWTodX2pUBW mI4u1QxBeQvB4UDdmW5TrJRXvfv ylUf85hL3nGoTcFaN6GSwk W7KjbaR5BNIeqKLnHTwaKEG0G06 fj3K6HRRkQMKsDOC5oBC5oP7bgF lnbjogbGVmdDsgdmVydGlj WFehYMcaR231VKMyzWgwCtUdILr uZyBEYXRlOiAgMDYvMTMvMjAyND wvdGQ+CIXxLCI2yWddSBKd fITuQNxyCc7arHfzlWwaIU8dOPW yyylaLYJgfG1lFZWiiVObhPswVC 7oIYJzqnyej586YrWhSCD7 XINrnYJhC6IrxW2wBgHlVAYaSXS mA7TofFGgSNdmR318LFxvGiV0BK CvjeNaF2EuWWHyrMfmUvI0 c7Y6Qj3Zi9FooztoZ1TnnBNySdU aLqaaSRp5A3UiWdgcwCA+PC90YW KqHR63KBa5STU2cBopBRop EIXfW6NauA6rVeCyJZLgGRQuWyb +PHRhYmxlIHdpZHRoPScxMDAlJy TmjIthKR2xWq6zWBUhIUKr sWmugTLqGwLss2wbFYVhADheWI1 pmWcaT8GugPJ7NAIok0w7Ew18V3 9jA1OhmKW+OMXtvAF6uXR2 aR1wUdOwHfZ2AWfoR311PhUlvXF tQdcmp9hpf0aclVg4VpF7WEYbby KgqMdqWNJ2h3WuPh49Y91x IHdpZHRoPSIxNSUiIHZhbGlnbj0 iiT7lVc2+VVRyqSN2kYO5pF0hPr ZdRmS9PNhsO868AaElaVRq Gpwtu7ygp7mxiAi0MxIhBFFshbO dxQveTMM1g1WjWc80F3XbiTvpx1 VtRnm2vw85tEAii0V8mTC3 T3LwTYSfpeubvTKouFklFR6zMZS aduzwSWOqfU2pAZHyM7y3AvCjKp A8OMwiI3ClgjW2TDUhhVSd VAGecFPEhW6dlhuog3qljgqzGdP vOWGsFTa8XLi9KWVzsNolTeOsUS A8PxB0WCJ0rAKrzA7suOnn arwjqY3jHus+PDR7wOCijMFYHB2 lOjwvdGQ+PLDnNWE5qOqyWMxoMQ ClpB6yDRSoY2y0VdOtNzH0 AFlbO5SxhkD5YMAmfRWbTYIgdUM KaX8slczzi1mxidypBaHkKWWbXT s5OXa6GISxzXecTcVuCRA8 FhE5IPQ4iHQwzJ8xmMzuluabyK1 wOyc+SbvtxZupLJX5EPb4G3NpOt r3NKBxeUciZO2ilEMjXWmt Ln4flLjixOovOE2cBHGpclxeb31 2GsRyg4bzYJSbsIDsQHgzSFZ8F9 5id0J4ZMEnJCLgUOH8oQU5 mY9ddRqjmxqqtWYuvBpajsYpvDn jIOsqPFrrR242FOImgNrwKkRrLS j1K7WcRve9RJMigXqkWQ3w kURwRWrfPl7ghXnejSfhKJ8dTDQ wcqqtq543SvMth7zdQHVjaENdAY hqNKY6O68tv3W3DUOwIECm LZN4mFZ9eJ5rsMatwqdddBXxeFq bxhJmoNkbAHrcZRjyF576SMWemY rjRcJgqLk4K7CuKsc9QLEo sVqgLG3qbLWkMUdaVh1xgWtzwFt aCD2kBPVokkbny103DyZzm4loQV DemDEoZKfyEHM9Q28jr2N5 LKMuKIArLJN5xNY9yI0gmFndlcl gbGVmdDsgdmVydGljYWwtYWxpZ2 46IHRvcDsnPlBhdGllbnQg FNiuDIc2J4XfLijcgXG+YD32DJS mLN21jEEcpYSzs1miqQm8BzZpET PxOPK4nOyuKOqpn0RrSXMp C57dpABbz9I2NWLfuSziwDNnKnU weYI5pL2qTPmqttqzv0edqrdwXl fln0aqaq20xD99I70eHWzc QZRlEPWmEWNoIOKszTzzgs5ijL2 wIi8+LSNjkKD2uJV5eS8jDRGyJw I4ONyxB617QcCynDLgCoft i0evh4tqnCs8HnK4ZJEcneXzyTo qMNW2q6PoWy66U16sEDqsLEZaZY LmKMLyLAFncNlhdk7orK8k Ii8+GFEshEF8lWE1aJ2bEjKnRuS 8LSokF051DpDjhNGlKiibG20eX2 JvdXA+VPAzOng5JUMmlGkw HE1pmQYvLLhfQo2sOTU5JbHvZhN gFTvyK9JaVKLgbogwtnoptSL0XJ EvCRXjlU37Em3yxHioYDQl jFBGiB8nkglxs6geakwhNeQyUZF sEPy3IQp8OUJruXzqRiOiVYG2Gx L9SRO0dAZqoR1yiWzjbrja eS0mY2JuKLPivrgjLa85sP0aBrX bMnI4ETzoQwg+UdOWGisiT9PKVM bQCiZONBL0G4ExKkj5BRDy rYzjAL3nqCGtSPnnNj3qgFoueSu yCV9sQOCtgstxRNGybE7tMGErgA UduVnuRU6oFQQadduon818 XvKlRQH1OKJfwJWoI0HmwY2qMdX zJOLpEMOrY3YblXXyHQmoP799BF lnMcA4TEMczvNaP8NmVJBp pOmnYeE7l8Z3Uy7sMD2gDo5vNLy 8DR24EV84lANod7X2iJF0L9DwBX ZzyudssvxczWV3YDBlXCMz iB64zNVhTFowOv2ao6X1o666XJA uRFIdxO41Sc6pcVozPBNyfACQmO 2moigld9swxvsuFlHvAMVa ZNx1LKf2DMQkiJptWmHgRVI0HcU 2DVF0eECfcB0qeVebuvxsyE5uJu c+TrUoYTJkpzM0A5HmGgb4 ZEHcpGpjSZ6wzBUlOQidCu5ysDi nxGzwDQ4zGEMcywbsSFBfjC7tQR IfyPBpqRxeUO5nCUVivvjt b291SyHaEGV2KHSfwESvZ7SlrD7 iNvMqORFsJXUyA8QgbVSgIVgmY7 21NEogZkX0IIHcpnZiH3Ab WVEtyHqzUhR8k7U3Ko6ILB9LMJJ 3N6NeGtg0DXQlpKvtEG9gpYKhFL waFo7usNanmQezPA0fRBZh gkvsRPFdjL0eLWJlvFPenJqfVF2 zECGyelvra395GeVxYEJ1CKMgoK GwY0PxgX7fNwAyKWTmXHUv U1MhfZFiIRieL163CNbfHqD3BXA mpzBvW6IpFXDwhHtgCyL4d8Y5Le 5PYnNlcnZhdGlvbjwvdGQ+ BE99zk45B4BpAxjhMmh1NZMmYLC 8wUP8rZ6rDMRnDFbah8V3jDQ2S1 SdlkOedz1or9whBHKiCZlx W41hfKYuo1G2BNWgxVX7GDKpcJe yVaIzlP04Zlc+JFJchJxih3RbYy bma5ckf6kpoCg0NlBeXWSw adEzpSvxBJE7o0WhYj95B55uFSo bTSWoGDMjSSTkIYMsiWjrnk1aaN 9wIi8+UNGblXU5rDP9eO6q VfWcSbL1XSknU063KhDsvOOiFox se9cwa6ukgMo7PuUxLKGajaLoiV taJFJ2s0EcUj24C6SzbMkr c8CfWge0rx47uIUta4O8fUG9E3V rKAZysfkslYAhmUsrLZ4dCWIdge ziXWOtqY2fNKByV7d4MnLi PmZ1MDtnM1PoixV9IZAinWCaKVP wfSJCcU7rzjdfj2iuchwkLuSjTW XjFDo9KXp8QNCyzQkoDuRg EXW3UqX1BON7fAFrtN8uePkmqsx opR1vEnd+ESj0v7unuIBpTT4smJ G1NP20DA12dPAix3U2aEQ3 P4EaIRCsfeawscyrgNG9PHYfWHB euR43Ld2btDbkBw8wXSLzCMN7WL CaeMLzO8LkjQ5xKnWpXAWu SYBfR3NznMFzQRdbL572ERjdBuB 1FQYvblFcJ1JhAJFhcBclZtB0a8 P8Hb9TWV07CX33NA25vSJa n7B0gMZ9Z4VnILRmfvyxpsevzKL 2JJZpKZKxzE84If2khVkpLt7dKH NuUDB5MQWtgEXdC0CvoW5k FtEuDEBxIDGqO9KbvOIuHGwmO27 6XMsbPbI1UGXxxjRkT7UhTKMjsA vqIhN9l7D8Jf7PXn92YN70 KE50iMHyq7O9pDP7L0BtGQFcsao gtvmdsRC2QOBuSUPtqA00Ob1ddN xaSw4rYFYvVLA1KRMfiUOy J9McdD8bCjGcWUMeUOIpE4WstMQ sUQduM211IFinMpC2QTEzvyJpL9 UdDDUxuBatVmP3a4S9Zs9C KUelnbd8C3QuOokiiZH+CF35JWD cRZ38gGLzqFGuw7xjmCx6ByNjVR FpLPJ1lKisDWzhs4WnDYNa Y29 (more content not included)... Normal [facility] Lab - AP Resultson 4 Lab - AP Results [id number]#1.00OTGTIFF Normal [facility] MR KNEE LT WO CONTon [...] Mason Easley DO on 03/04/2024 9:20 AM Genevieve Sanchez MD have personally reviewed the image(s) and agree with and/or edited the report Finalized by Genevieve Mckenzie MD on 03/04/2024 9:59 AM [facility] Consent Formson 02-29-2024 Consent Forms [id number]#1.00OTGTIFF [facility] Consent Formson 02-28-2024 Consent Forms [id number][facility] [id number]#[address] [place] [address] MAGR Postoperative Recordon 02-28-2024 MAGR Postoperative Record MAGR Phase II Record Summary Primary Physician: Peter Booth MD Finalized Date/Time: 02/28/24 07:49:14 Pt. Name: LUCILA JACQUES RAE /Sex: 1990 FEMALE Med Rec #: [id number] Physician: Param Michelle DO Financial #: [id number] Pt. Type: O Room/Bed: [facility] Admit/Disch: 02/26/24 22:40:28 - 02/27/24 18:45:00 Institution: [facility] II Case Times MAGR Pre-Care Text: Patient [...] Signed By: Mya Villar RN 02/28/24 07:49 [facility] Outside Recordson 02-28-2024 Outside Records [id number]#[address] [place] [address] Telemetry Stripson Telemetry Strips [id number]#[address] [place] [address] .Auto Diff 1on 02-27-2024 Auto [place] % 8 % Normal 1-12 [facility] Comment on above: Performed By: #### 1 [id number], [id number], 4683568, 6947111750, 2715401, 9053659, 6945643, 8809556 #### [facility] (DEFAULT) [address] [place] [address] Baso Abs# 0.0 x10 Normal 0.0-0.2 [facility] Comment on above: Performed By: #### 1 6673514, 8324889582, 9533463, 5996058951, 8776479, 9203798, 5520817, 4606559 #### [facility] (DEFAULT) [address] [place] [address] Basophils/100 WBC (Bld) 0.4 % Normal 0.2-2.0 [facility] Comment on above: Performed By: #### 1 8817931, 0332451111, 9530849, 1267825266, 5158942, 8220033, 3155628, 0374614 #### [facility] (DEFAULT) [address] [place] [address] Eos Abs# 0.1 x10 Normal 0.0-0.4 [facility] Comment on above: Performed By: #### 1 5635753, 3184156124, 0795546, 7109888434, 0035685, 5914924, 5188290, 4379287 #### [facility] (DEFAULT) [address] [place] [address] 31923 Eosinophils/100 WBC (Bld) 1.1 % Normal 0.9-4.0 [facility] Comment on above: Performed By: #### 1 5418827, 1183850462, 1369407, 5483900190, 0786510, 4579429, 8694284, 1245310 #### [facility] (DEFAULT) [address] [place] [address] 82108 Lymph Abs# 2.1 x10 Normal 1.3-2.9 [facility] Comment on above: Performed By: #### 1 6150848, 8511315763, 6399906, 0596727703, 9863271, 2615409, 4252606, 1400988 #### [facility] (DEFAULT) [address] [place] [address] Lymphocytes/100 WBC (Bld) 28 % Normal 14-48 [facility] Comment on above: Performed By: #### 1 2533937, 2911079618, 7698410, 1100569600, 1449958, 6180286, 0265264, 1390283 #### [facility] (DEFAULT) [address] [place] [address] Caribou Abs# 0.6 x10 Normal 0.0-0.8 [facility] Comment on above: Performed By: #### 1 9175880, 0855197814, 0128162, 8038471741, 6862984, 2744333, 3841246, 1962371 #### [facility] (DEFAULT) [address] [place] [address] Neut Abs# 4.8 x10 Normal 1.5-9.2 [facility] Comment on above: Performed By: #### 1 1548703, 4826288845, 9260651, 2454845767, 9199817, 1480170, 7753541, 3287628 #### [facility] (DEFAULT) [address] [place] [address] Neutrophils/100 WBC (Bld) 63 % Normal 44-88 [facility] Comment on above: Performed By: #### 1 0505776, 3187573749, 0942118, 6627718996, 6857782, 9661130, 4499193, 6549416 #### [facility] (DEFAULT) [address] [place] [address] Amylaseon 02-27-2024 Amylase [Catalytic activity/Vol] 51.0 U/L Normal 28.0-100.0 [facility] Comment on above: Performed By: #### 1 3650115, 7054921213, 3040377, 2165358105, 5929493, 4243118, 7096330, 4503581 ####[facility] (DEFAULT)[address] [place] [address] Anesthesia Noteon 02-27-2024 Anesthesia Note Patient: LIOR JACQUES IN [facility] Age: 33 years Sex: FEMALE : 1990 [...] on: 02/27/2024 12:58 EDT] Juliano Peterson DO [facility] Anesthesia Note Patient: LIOR JACQUES IN [facility] Age: 33 years Sex: FEMALE : 1990 [...] history): All Problems Anxiety / SNOMED CT 11782089 / Confirmed Arthritis of left knee / SNOMED CT 691643896778933 / Confirmed Body mass index 40+ - severely obese / SNOMED CT 0276590472 / Confirmed Genital warts / SNOMED CT 669997186 / Confirmed History of arthroscopy of knee joint / SNOMED CT 0483266838 / Confirmed History of bariatric surgical procedure. / SNOMED CT 0172897903 / Confirmed Gastric bypass status for obesity / SNOMED CT 2965424600 / Confirmed H/O syncope / SNOMED CT 9913065185 / Confirmed Hypokalemia / SNOMED CT 59365174 / Confirmed Hypomagnesemia / SNOMED CT 806287923 / Confirmed Mixed anxiety and depressive disorder / SNOMED CT 467531333 / Confirmed Morbid obesity / SNOMED CT 634467143 / Confirmed Peripheral venous insufficiency / SNOMED CT 28186025 / Confirmed Sacroiliac joint pain / SNOMED CT 881959834 / Confirmed Varicose veins of left lower limb / SNOMED CT 194319712112259 / Confirmed Resolved: / SNOMED CT 804004024 Histories Family History: Clotting disorder Mother Diabetes mellitus type 2 Father Grandmother (Paternal) High blood pressure Father PVD - Peripheral vascular disease Mother GERD - Gastro-esophageal reflux disease Father Procedure history: CT guided nerve block (1255247949) on 01/12/2024 at 33 Years. Comments: 01/12/2024 11:39 [facility] - Cuong Chowdary MA LEFT GENICULAR microphlebectomy in the month of 07/2017 at 27 Years. Comments: 03/19/2019 10:05 [facility] - Margaret Perera MINE [facility] left leg Gastric sleeve (0737483870) in the month of 07/2016 at 26 Years. section (40066416) on 11/10/2014 at 24 Years. section (52438306) on 06/29/2012 at 21 Years. Gastric band (8382090362). Social History Electronic Cigarette/Vaping Assessment Electronic Cigarette [...] (FEB 26 (more content not included)... Normal [facility] CBC w/ Auto Diffon Erythrocyte distribution width (RBC) [Ratio] 13.3 % Normal 11.5-15.0 [facility] Comment on above: Performed By: #### 1 5148251, 3606072616, 8349396, 0326600792, 0856997, 3454365, 9949417, 7461004 #### [facility] (DEFAULT) [address] [place] [address] Hematocrit (Bld) [Volume fraction] 42.2 % High 33.7-40.4 [facility] Comment on above: Performed By: #### 1 2623254, 2128992998, 1307818, 1415371831, 7882342, 5331209, 8039569, 6476861 #### [facility] (DEFAULT) [address] [place] [address] Hemoglobin (Bld) [Mass/Vol] 14.3 g/dL Normal 11.3-15.9 [facility] Comment on above: Performed By: #### 1 0885894, 5043878339, 1075436, 2655048464, 4045030, 6930927, 0891987, 4101390 #### [facility] (DEFAULT) [address] [place] [address] MCH (RBC) [Entitic mass] 30 pg Normal 24-34 [facility] Comment on above: Performed By: #### 1 2869279, 5400204093, 0767891, 1062646765, 4754098, 2999069, 0477194, 2795447 #### [facility] (DEFAULT) [address] [place] [address] MCHC (RBC) [Mass/Vol] 34 g/dL Normal 26-37 [facility] Comment on above: Performed By: #### 1 0377240, 3388115125, 6399511, 6696730871, 7258231, 6042467, 0385946, 1801469 #### [facility] (DEFAULT) [address] [place] [address] 75403 MCV (RBC) [Entitic vol] 90 fL Normal 81-100 [facility] Comment on above: Performed By: #### 1 6468898, 3401110677, 2403717, 9104811051, 4601770, 7669806, 8174656, 5577560 #### [facility] (DEFAULT) [address] [place] [address] 69540 Platelet 243 x10 Normal 138-427 [facility] Comment on above: Performed By: #### 1 8784002, 9924426317, 4505314, 0650904873, 7908158, 6539846, 6465814, 5372731 #### [facility] (DEFAULT) [address] [place] [address] 83889 Platelet mean volume (Bld) [Entitic vol] 8.0 fL Normal 6.3-10.2 [facility] Comment on above: Performed By: #### 1 0479770, 1309340931, 8167823, 2724589683, 0907240, 2579575, 1056299, 0718518 #### [facility] (DEFAULT) [address] [place] [address] 89404 RBC 4.70 x10 Normal 3.70-5.30 [facility] Comment on above: Performed By: #### 1 1135391, 2655950726, 4820823, 8341942310, 3277857, 8732388, 5839952, 7197550 #### [facility] (DEFAULT) [address] [place] [address] 31844 WBC 7.7 x10 Normal 3.5-10.5 [facility] Comment on above: Performed By: #### 1 2765412, 8648853408, 2597031, 2456489644, 2117437, 2842173, 0345231, 5461809 #### [facility] (DEFAULT) [address] [place] [address] 71875 Man Diff? Auto Invalid Interpretation Code [facility] Comment on above: Performed By: #### 1 0682394, 5737356515, 0657473, 3703046989, 9731005, 8411491, 1478615, 2178000 #### [facility] (DEFAULT) [address] [place] [address] 98032 CMP Standardon 02-27-2024 eGFR Non AA >60 Invalid Interpretation Code [facility] Comment on above: Performed By: #### 1 2349366, 2585841236, 8508984, 2117618549, 5336651, 0323421, 5272252, 6992145 #### [facility] (DEFAULT) [address] [place] [address] 72316 eGFR AA >60 Invalid Interpretation Code [facility] Comment on above: Performed By: #### 1 6846798, 8385252057, 5698200, 1681368313, 6840946, 3366612, 3053691, 3239852 #### [facility] (DEFAULT) [address] [place] [address] 38313 Albumin [Mass/Vol] 4.2 g/dL Normal 3.5-5.0 [facility] Comment on above: Performed By: #### 1 3609513, 0662861313, 3572985, 9842407046, 3392170, 5150146, 3768069, 0626926 #### [facility] (DEFAULT) [address] [place] [address] 64000 Albumin/Globulin [Mass ratio] 1.4 {ratio} Normal 1.4-2.6 [facility] Comment on above: Performed By: #### 1 0012099, 1135518619, 3077146, 9482741495, 6369460, 0600815, 8609604, 8108084 #### [facility] (DEFAULT) [address] [place] [address] 80336 Alk Phos 56 IU/L Normal 32-91 [facility] Comment on above: Performed By: #### 1 5349644, 9515328098, 9005169, 6544973652, 9003245, 5143520, 5284208, 5982363 #### [facility] (DEFAULT) [address] [place] [address] 60881 ALT [Catalytic activity/Vol] 22.0 U/L Normal 14.0-54.0 [facility] Comment on above: Performed By: #### 1 3733824, 3189471878, 2751747, 4884660378, 8319966, 9705954, 5603403, 2626891 #### [facility] (DEFAULT) [address] [place] [address] 64802 Anion gap [Moles/Vol] 10.5 mmol/L Normal 5.0-19.0 [facility] Comment on above: Performed By: #### 1 3060930, 6713069982, 1192774, 3781186731, 4090247, 9019373, 4312730, 1421389 #### [facility] (DEFAULT) [address] [place] [address] 38602 AST [Catalytic activity/Vol] 26 U/L Normal 15-41 [facility] Comment on above: Performed By: #### 1 8687850, 8000965175, 5738761, 8514059269, 2667025, 8046730, 6747721, 1217244 #### [facility] (DEFAULT) [address] [place] [address] 80108 Bili Total 0.8 mg/dL Normal 0.3-1.2 [facility] Comment on above: Performed By: #### 1 3703725, 8086290528, 1523988, 1938653813, 2705018, 3625643, 2853882, 0657231 #### [facility] (DEFAULT) [address] [place] [address] 13332 Calcium [Mass/Vol] 9.0 mg/dL Normal 8.9-10.3 [facility] Comment on above: Performed By: #### 1 7044377, 9691430414, 2834011, 9681427058, 5215135, 3992318, 1410242, 3924041 #### [facility] (DEFAULT) [address] [place] [address] 07925 Chloride [Moles/Vol] 105 mmol/L Normal 101-111 [facility] Comment on above: Performed By: #### 1 [id number], [id number], 9352869, [id number], 8583738, 0001760, 1198906, 8030101 #### [facility] (DEFAULT) [address] [place] [address] 36726 CO2 [Moles/Vol] 24 mmol/L Normal 21-32 [facility] Comment on above: Performed By: #### 1 [id number], [id number], 6684636, [id number], 6750844, 9439169, 8635572, 7047552 #### [facility] (DEFAULT) [address] [place] [address] 49908 Creatinine [Mass/Vol] 0.68 mg/dL Normal 0.60-1.30 [facility] Comment on above: Performed By: #### 1 [id number], [id number], 7792603, [id number], 0351651, 9228494, 2152799, 2521845 #### [facility] (DEFAULT) [address] [place] [address] 42769 Globulin (S) [Mass/Vol] 3.0 g/dL Normal 1.5-4.3 [facility] Comment on above: Performed By: #### 1 [id number], [id number], 0621119, 7162228253, 3785418, 2040261, 5478462, 3451209 #### [facility] (DEFAULT) [address] [place] [address] 77267 Glucose [Mass/Vol] 93.0 mg/dL Normal 74.0-118.0 [facility] Comment on above: Performed By: #### 1 [id number], [id number], 1237439, 0683509858, 1119103, 7226250, 5041968, 3524729 #### [facility] (DEFAULT) [address] [place] [address] 74579 Osmolality 270 mOsm/L Invalid Interpretation Code [facility] Comment on above: Performed By: #### 1 [id number], [id number], 3434772, [id number], 8054257, 0091067, 4756479, 2915376 #### [facility] (DEFAULT) [address] [place] [address] 88620 Potassium [Moles/Vol] 3.5 mmol/L Low 3.6-5.1 [facility] Comment on above: Performed By: #### 1 [id number], [id number], 3779385, 6286747166, 8006251, 5730408, 9514322, 4349754 #### [facility] (DEFAULT) [address] [place] [address] 01640 Protein [Mass/Vol] 7.2 g/dL Normal 6.5-8.1 [facility] Comment on above: Performed By: #### 1 0515058, [id number], 3367155, 1310322848, 5479423, 3102454, 2670959, 2949052 #### [facility] (DEFAULT) [address] [place] [address] 04918 Sodium [Moles/Vol] 136.0 mmol/L Normal 136.0-144 . 0 [facility] Comment on above: Performed By: #### 1 [id number], [id number], 6747633, 8560105361, 0624663, 3759859, 4020759, 7376579 #### [facility] (DEFAULT) [address] [place] [address] 04090 Urea nitrogen [Mass/Vol] 9 mg/dL Normal 8-26 [facility] Comment on above: Performed By: #### 1 6075912, [id number], 6878403, 7156483779, 1182991, 9548724, 3670255, 9741597 #### [facility] (DEFAULT) [address] [place] [address] 24775 Urea nitrogen/Creatinine [Mass ratio] 13.2 mg/mg Normal 4.6-16.2 [facility] Comment on above: Performed By: #### 1 [id number], [id number], 5022104, 4827345496, 6485923, 0499252, 3400468, 5471266 #### [facility] (DEFAULT) [address] [place] [address] PE Chest/Abdomen/Pelvis w / Contraston 02-27-2024 [...] MD 02/27/24 2:37 am Technologist: CB Thomas [facility] ED Clinical Summaryon 2023 ED Clinical Summary [facility] - Emergency Department [address] [place], [place] [id number] ED Clinical Summary PERSON INFORMATION Name: LUCILA JACQUES Age: 33 Years Sex: FEMALE : 1990 MRN: Acct#: Visit Reason: Abdominal pain; ACUTE CHOLECYSTITIS Arrival: 02/26/2024 22:40:28 Discharge: LOS: 000 09:38 Check In: 02/26/2024 22:40:28 Checkout:02/27/2024 08:18:49 Address: [address] [place] [address] PCP: Provider, None PROVIDER INFORMATION Provider Role [...] Associated Diagnoses: Biliary colic; Acute cholecystitis Author: aPram Michelle DO Basic Information Additional information: Chief [...] recorded.. Surgical history: CT guided nerve block ([id number]) on 01/12/2024 at 33 Years. Comments: 01/12/2024 11:39 EDT - Cuong Chowdary MA LEFT GENICULAR microphlebectomy in the month of 07/2017 at 27 Years. Comments: 03/19/2019 10:05 EDT - Margaret Perera [facility] left leg Gastric sleeve ([id number]) in the month of 07/2016 at 26 Years. section ([id number]) on 11/10/2014 at 24 Years. section ([id number]) on 06/29/2012 at 21 Years. Gastric band ([id number]).. Family history: Clotting disorder Mother Diabetes mellitus type 2 (more content not included)... [facility] ED Note - Physicianon 2023 ED [...] recorded.. Surgical history: CT guided nerve block ([id number]) on 01/12/2024 at 33 Years. Comments: 01/12/2024 11:39 EDT - Cuong Chowdary MA LEFT GENICULAR microphlebectomy in the month of 07/2017 at 27 Years. Comments: 03/19/2019 10:05 EDT - Margaret Perera [facility] left leg Gastric sleeve ([id number]) in the month of 07/2016 at 26 Years. section ([id number]) on 11/10/2014 at 24 Years. section ([id number]) on 06/29/2012 at 21 Years. Gastric band ([id number]).. Family history: Clotting disorder Mother Diabetes mellitus [...] Respiratory: Lungs ar (more content not included)... [facility] ED Note-Nursingon 02-27-2024 ED Note-Nursing Pt arrives to ED alvaro m 7 complaining of abdominal pain. Pt states it has been going on for a few days, Pt has [facility] of [facility]. Pt denies any other complaints. [facility] ED Patient Education Noteon 02-27-2024 ED Patient Education Note Education Materials [facility] ED Patient Summaryon 024 ED Patient Summary [facility] - Emergency Department [address] [place] [address] PATIENT DISCHARGE INSTRUCTIONS Patient Information Name: LUCILA JACQUES Age: 33 Years Date of : 1990 Reason For Visit: Abdominal pain; ACUTE CHOLECYSTITIS Arrival Time: 02/26/2024 22:40:28 Primary Care Physician: Provider, None Attending Physician: Maurizio Mast MD Comment: Visit Diagnosis: Diagnoses This Visit Abdominal pain ([id number]) Acute cholecystitis (K81.0) Biliary colic (K80.50) The Pharmacy at [place] [facility] is open Monday through Monday from [...] alcohol and/or drug addiction problems; contact the [facility] 17/04 Crisis Hotline -Text 2WAAS it [phone]. If you received any narcotics, sedation, or [...] and treatment you received today in the [facility] Emergency Department were for an urgent problem and are not intended as complete care. It is important for you to follow up with a doctor, nurse practitioner, or physician?s special ed assistant for ongoing care. If your symptoms [...] so we can reach you if necessary. [facility] Emergency Department has provided you with a complete list of medications post discharge. Please inform your diver tender/provider of your visit and for further instruction [...] for D (more content not included)... Normal [facility] Inpatient Patient Summaryon 02-27-2024 Inpatient Patient Summary [address] [id number] Patient Discharge Instructions Name: LUCILA JACQUES : 1990 Patient Address: [address] [place] [address] Primary Care Provider: Name: Provider, None Phone: After you are discharged if you find you have any questions, please, call [phone] ext [phone] to speak to a nurse. The Pharmacy at [place] [facility] is open Monday through Monday from [...] problems; contact the [facility] 17/04 Crisis Hotline -Text 1IPHY ii [phone]. If you received any narcotics, sedation, or [...] business decisions or sign any legal documents [facility] would like to thank you for allowing us to assist you with your healthcare needs. The following includes patient education materials and information regarding your injury/illness. LUCILA JACQUES has been given the following list of follow-up instructions, prescriptions, and patient education materials: Follow-up Instructions With: Address: When: Peter Booth [address] [place] [address], [place] [address] Business (1) In 2 weeks 03/12/2024 Comments: Call for follow up appointment With: Address: When: None Provider [address] [place] [address] Medications During the course of your visit, your medication list was updated with the most current information. The details of those changes are reflected below: New Medications [id number], [address] [place], [place] [id number], [phone] acetaminophen-hydrocodone (acetaminophen-hydrocodone 325 mg-5 mg oral tablet) [...] questions, (more content not included)... [facility] 02-27-2024 L Specimen: [id number] Received: 02/28/24 Status: [facility] Num: [id number] Spec Type: Surgical Subm Dr: Peter Booth MD Tissues: A Gallbladder (GALLBLADDER) Procedures: HE/2, Gross/Micro L3 Age/ Patient Sex Location Account Attending Physician Lucila Jacques 33/F [facility] [id number] Maurizio Mast MD SPEC NUM: [id number] RECD: 02/28/24 STATUS: [facility] NUM: [id number] NIELS: 02/27/[address]: Peter Booth MD ENTERED: 02/28/[address] [facility] [address]: Edilberto,Lab SPEC TYPE: Surgical DEPT: [facility] ORDERED: HE/2, Gross/Micro L3 ORDERED: HE/2, [...] gallbladder wall measures 0.1 cm in thickness. Bottle Tester sections are submitted in A1 (gallbladder) and A2 (lymph node). CPT Codes 92009 Specimen: [id number] Received: 02/28/24 Status: [facility] Num: [id number] Spec Type: Surgical Subm Dr: Peter Booth MD Tissues: A Gallbladder (GALLBLADDER) Procedures: HE/2, Gross/Micro L3 Patient: Lucila Jacques [id number] (Continued) Signed (signature on file) Domenic Hopper MD 02/29/24 1457 Normal [facility] Lactic Acidon 02-27-2024 Lactic Acid 15.3 mg/dL Normal 4.5-19.8 [facility] Comment on above: Performed By: #### 2 [id number] ####[facility] (DEFAULT)[address] [place] [address] Lipaseon 02-27-2024 Lipase Level 30.0 IU/L Normal 22.0-51.0 [facility] Comment on above: Performed By: #### 1 [id number], [id number], [id number], [id number], 6656041, 1980447, 1046561, [id number] ####[facility] (DEFAULT)[address] [place] [address] 47821 MAGR Intraoperative Recordon 02-27-2024 MAGR Intraoperative Record MAGR Intra-Op Record Summary Primary Physician: Peter Booth MD Finalized Date/Time: 02/27/24 12:38:12 Pt. Name: LUCILA JACQUES/Sex: 1990 FEMALE Med Rec #: [id number] Physician: Param Michelle DO Financial #: [id number] Pt. Type: O Room/Bed: [facility] Admit/Disch: 02/26/24 22:40:28 - Institution: Case Times MAGR Entry 1 Patient In Room Time 02/27/24 11:01:00 Out Room Time 02/27/24 12:36:00 Anesthesia Start Time 02/27/24 11:00:00 Stop Time 02/27/24 12:35:00 Surgery Start Time 02/27/24 11:34:00 Stop Time 02/27/24 12:30:00 Last Modified By: Bre Spaudling RN 02/27/24 12:38:09 Case Attendance MAGR Entry 1 Entry 2 Entry 3 Case Attendee Peter Booth MD, David DO Myers, Debra RN Role Performed Surgeon - Primary Anesthesiologist of Savings Counselor Record Time In 02/27/24 11:31:00 02/27/24 11:01:00 02/27/24 11:01:00 Time Out 02/27/24 12:19:00 02/27/24 12:36:00 02/27/24 12:36:00 Procedure Cholecystectomy Cholecystectomy Cholecystectomy Laparoscopic Laparoscopic Laparoscopic Last Modified By: Bre Spaulding RN, Debra RN Myers, Debra RN 02/27/24 12:35:49 02/27/24 12:35:49 02/27/24 12:35:49 Entry 4 Entry 5 Entry 6 Case Attendee Dina MalcolmA Tru [employer]CHO[employer] PRINCIPAL, Marie [employer]LEMENT[employer] SCHO[employer] PRINCIPAL Paul, Will ELEMENTARY SCHOOL PRINCIPAL ELEMENTARY SCHO[employer] PRINCIPAL CSFA Role Performed Fibrous Wallboard Inspector Fibrous Wallboard Inspector Scrub Personnel Time In 02/27/24 11:01:00 02/27/24 [...] Peterson DO, Bre Spaulding RN, Dina Malcolm ELEMENT[employer] SCHOOL PRINCIPAL, Tru ELEMENTARY SCHOOL PRINCIPAL, Marie LEBLANC CSFA, Will Miller ELEMENTARY SCHOOL PRINCIPAL Last Modified By: Bre Spaulding RN 02/27/24 [...] E.290 Eval (more content not included)... [facility] Record MAGR PACU Record [facility] nacho Primary Physician: Peter Booth MD Finalized Date/Time: 02/27/24 14:07:36 Pt. Name: LUCILA JACQUES MAXINE Jackman/Sex: 1990 FEMALE Med Rec #: [id number] Physician: Param Michelle DO Financial #: [id number] Pt. Type: O Room/Bed: [facility] Admit/Disch: 02/26/24 22:40:28 - Institution: PACU Case Times MAGR Entry 1 In PACU I 02/27/24 12:38:00 Discharge from PACU 02/27/24 13:40:00 I Last Modified By: Yarelis Schmitt RN 02/27/24 14:07:32 Finalized By: Yarelis Schmitt RN Document Signatures Signed By: Yarelis Schmitt RN 02/27/24 14:07 Normal [facility] Magnesiumon 02-27-2024 Magnesium [Mass/Vol] 1.86 mg/dL Normal 1.80-2.50 [facility] Comment on above: Performed By: #### 1 [id number], [id number], [id number], [id number], 6995659, 9327085, 2707007, 3924791 ####[facility] (DEFAULT)[address] [place] [address] Nutrition Noteon 02-27-2024 Nutrition Note Chart reviewed; 33 y o female diagnosed with s/p lap choly; diet order full liquids; patient with history of gastric bypass surgery ; no difficulties with chew/swallow identified on admit; encourage increase po as rachael; rec advance as rachael to regular soft diet; will monitor po with diet advance, wt/labs for changes; follow, assist prn. ts Normal [facility] PTon 02-27-2024 INR Coag (PPP) [Relative time] 0.98 {INR} Normal 0.91-1.11 [facility] Comment on above: Performed By: #### 1 [id number], [id number], [id number], [id number], 3326024, 1077971, 7435458, [id number] ####[facility] (DEFAULT)[address] [place] [address] 46670 PT 10.2 second(s) Normal 9.7-11.8 [facility] Comment on above: Performed By: #### 1 [id number], [id number], 6250704, [id number], 9396156, 1758763, 3341058, 0066104 ####[facility] (DEFAULT)[address] [place] [address] 55354 Test Serum 1on Preg Serum Internal Control OK [facility] Comment on above: Performed By: #### 3 [id number] ####[facility] (DEFAULT)[address] [place] [address] 81164 Test Serum Qual Negative [facility] Comment on above: Performed By: #### 3 [id number] ####[facility] (DEFAULT)[address] [place] [address] 17240 TnI HSon 02-27-2024 Troponin I High Sensitivity 3.0 pg/mL Normal <=15.0 [facility] Comment on above: Performed By: #### 1 [id number], [id number], 2137890, [id number], 7012904, 9894863, 8060711, 9661872 ####[facility] (DEFAULT)[address] [place] [address] 19055 UA w Culture if Ind Standard on 02-27-2024 Breakpoint UA [facility] Comment on above: Performed By: #### 1 [id number] ####[facility] (DEFAULT)[address] [place] [address] 14010 Color (U) Yellow [facility] Comment on above: Performed By: #### 1 [id number] ####[facility] (DEFAULT)[address] [place] [address] 77427 Culture? Not Indicated Invalid Interpretation Code [facility] Comment on above: Result Comment: Resu lt created by rule GL_MAGR_ADD_UA_CULT1 Performed By: #### 1 [id number] ####[facility] (DEFAULT)[address] [place] [address] 79963 Glucose (U) [Mass/Vol] Negative Normal [facility] Comment on above: Performed By: #### 1 [id number] ####[facility] (DEFAULT)[address] [place] [address] 01069 Ketones Ql (U) 40 Normal [facility] Comment on above: Performed By: #### 1 [id number] ####[facility] (DEFAULT)[address] [place] [address] 23381 Micro? Not Indicated Invalid Interpretation Code [facility] Comment on above: Result Comment: Resu lt created by rule GL_MAGR_ADD_UA_MICRO Performed By: #### 1 [id number] ####[facility] (DEFAULT)[address] [place] [address] 69692 UA Bilirubin Negative Normal [facility] Comment on above: Performed By: #### 1 [id number] ####[facility] (DEFAULT)[address] [place] [address] 52931 UA Blood Negative Normal NEGATIVE [facility] Comment on above: Performed By: #### 1 [id number] ####[facility] (DEFAULT)[address] [place] [address] 45865 UA Clarity CLEAR Normal CLEAR [facility] Comment on above: Performed By: #### 1 [id number] ####[facility] (DEFAULT)[address] [place] [address] 60287 UA Leuk Est Negative Normal NEGATIVE [facility] Comment on above: Performed By: #### 1 [id number] ####[facility] (DEFAULT)[address] [place] [address] 10042 UA Nitrite Negative Normal NEGATIVE [facility] Comment on above: Performed By: #### 1 [id number] ####[facility] (DEFAULT)[address] [place] [address] 45931 UA pH 7.5 Normal 5-8 [facility] Comment on above: Performed By: #### 1 [id number] ####[facility] (DEFAULT)[address] [place] [address] 95173 UA Protein Negative Normal NEGATIVE [facility] Comment on above: Performed By: #### 1 [id number] ####[facility] (DEFAULT)[address] [place] [address] 97949 UA Spec Grav 1.015 Normal 1.001-1.03 5 [facility] Comment on above: Performed By: #### 1 [id number] ####[facility] (DEFAULT)[address] [place] [address] UA Urobilinogen 0.2 mg/dL Normal 0.2-1.0 [facility] Comment on above: Performed By: #### 1 [id number] ####[facility] (DEFAULT)[address] [place] [address] Urine Source Clean Catch [facility] Comment on above: Performed By: #### 1 [id number] ####[facility] (DEFAULT)[address] [place] [address] US Gallbladderon 02-27-2024 US Gallbladder EXAM: US [...] Geovani Miranda MD 02/27/24 5:19 am Technologist: JULIEN [facility] XR knee LT 4V*on 02-15-2024 XR knee LT 4V* [facility] [address] [place] [address] XRay Report Signed Patient: Lucila Jacques MR#: [id number] 33 : 1990 Acct:[id number] Age/Sex: 33 / F ADM Date: 02/15/24 Loc: [facility] Room: Type: [facility] Attending Dr: Santa Estrada II, MD Copies to: Santa Estrada MD Ordering Provider: Santa Estrada MD Date of Service: 02/15/24 XR/XR knee LT 4V*: M25.562 - Pain in left knee ([id number]) XR/XR pelvis 1-2V: M25.562 - Pain in [...] Palacio Jr., D.OWalker02/15/2024 3:38 PM Dictation Location: [place] [address] Transcribed By: [facility] 02/15/24 1538 Dictated By: Haile Palacio Jr, DO 02/15/24 1534 Signed By: 02/15/24 1538 [place] [facility] Coding Summary 01-31-2024 Coding Summary HTMLBase 64 GrogyrifUZf2jBq+PGhlYWQ+PE1 MLYKgD99daVMzjU1iN2TODUoOWm nwMWQGXMpJJtNoiuAbBM9yyYFzR XJu IC8+RZ1gEWVoVclhkUZrm6Z6mAB 6A87ker5mBChjmCU8MEAeEcVdda ptl9awwZz5QWucJhydPjDp EXPxrZ38AMN9hR53By44tXOgoKA bt4jhxHf5RbWsRPAuEWP9cYfhJA gek4SwDKDaR27psSAdy0V5 HMUgfRjcbCNdLoWbzDG4aW0rZYy akqdbn1zjyxfvDgt8hc91fVDey9 P9yLP1A0OdvpR3XWFlwHAk TvmowQCJbI7dklhhu3vzyuzsBcR gZGStAUe6RIb8AREkfXvbNhOnTC 97MXB7QRXfojOqQ0HxDKLk gZgfKaP5d9B7Uj6GY2DIAdcvF4J NTUFSWTwvdGQ+IT14vp09G4EeZl plBmv2ILMmIWP3xSL4mC4f FLPjZRheb2K7cLB2K6EybaYvyf6 az2fsPVAxXJjtO76byYWuw7G9MS NgsOJ0OSSknOgjPbGtkF14 Oyc+WHUxvJwsb6VpBkvhe5sqw6q gxJp1RqftCBKkbxNtdTgyIQN2s4 TqHu2vPNVheGK8uDF9rH0m WpAaHlG9MJljO698DiGtvQQpJqa gS86uN0AzaGI+XTLxXfm6BLGyhZ zcAL1tK7OmAIGoyuyxtHPs hTbpFA9uVOTprupfHQBobX8yULG fR0w2SrXoLcI6ZQczA7RhXLSsis vkXn85wX8jInJuAtM7ZHcw W6ZwazZ6NVIbhLNoCZfxUOG2Z51 pk0P8JGKsBSQkCBI7jPC4mN0xkU lnbjogbGVmdDsgdmVydGlj BKbrVGugI546GSLtqTecWcToFYz uZyBEYXRlOiAgMDUvMDgvMjAyND wvdGQ+HTMdBRU6qKxkWZBx jVTiQVgaAd7huYkdhLomDR4bPSP tckdiJHThwN8sKCEjtRKzgUwoYB 5dVCUmxkynj123EmCzUWL8 YJObhJUfR5JgaK0iEwYeCBPnNPT kJ5NyuTGsTJvuH840CHihZwV9GD QrqzMzN7VhOISutLrwLsX2 n9R5Jz2Dg9WjhyegJ3OqeSCpHgR hXjogRQm6P5FjPabmdCR+PC90YW BoPZ04XNl3JUE4aLpyOXiq XMIvI4VxuV3fIgZfBUWqHWSoIvc +PHRhYmxlIHdpZHRoPScxMDAlJy HjgUinNI0iFd0oSJUvGFUx qRfzsFBtLxGwd7zeCVRdWCgrJI4 ymTrtX7VcmHS0BOTpy1i5Wu99Q7 9dY8FbeSG+ILQsdHR3jFQ9 iX3mZiGsAmP7GJesA735FlJttAJ cMazuc9iuh0dvhKe3KfO2OEKdti DcdNnxKOJ9w7OdGi01E57o IHdpZHRoPSIxNSUiIHZhbGlnbj0 uuV3qHa9+TGWtrZN5xSL1fS6rVm NdQoA4LYxzQ272LaEsfMKo Zjhfn6qge0csvNt7IuQxAHJjsjU idKinGWJ5h2VvHe92R6ZoyGrhy8 EdOle8lu93cPIfn1E9yWB2 B1BzLLIggmmoxLLyaRhdXZ3fMND vcjxcPYEszO6nBNRiF6b5TdWfVp S3TPbiH0ApcbU7AHRywGGr PLGdyXDHmF3bxuomj0kryaojUlW pLYBnXAy6MTc6VIUieMvhIbNjFM O0FmS9YOG4eAJgtD7atZfl pvykdO4iPln+YWF8bQKuwGKCKD2 lOjwvdGQ+LEGtFPR4sHtpBUxzFX XsmW3pCCTdP0e0TnUnUlX5 OPusL0RrsoV5SLSeiKLbQSScwPD PgU1zbqulz5lycbnwBmHvXMGsHW l2ZSg4TVOymRwcQuYrCXJ1 WcL7OKS6kJEbtL9owYclrxwzyW6 wOyc+NsaixFsqKMJ5DJq9F5DrCp g8DYUxtLutFS2emJKnVTuq At7boYxbyOaoWM7fLXPqsdhsq89 4CrBrs6dfHOLqhULuGBseKKR8O6 0wq7R3VNEhLRAmHYO9bJK4 vX2crGkknokviTKidQnkfgEmjZo oTBxzNYlwS992MLZdpOexSpHxZN p7N5EgFja5RCPeaNaqKU1x dMTrEHcqDk5fwYwukOvqPR0rFCA sopfna337UgLih4gaTWImlBSuSY qqKGS9P72db4P7KKJlRRYc XYT0qNH9pK2jgPmldxfdkCNkiHg xixItqEqfVOdlCGztS099TBYqcI ekLmPjmMa3T8XeWfe3FXOw vNuzKW5loKAkURbeJw3ocLensHa hYI9pFNToboiyi135NaFyy1wtNZ ClbIGhPAiqYQH6C59jt3N4 CILbLSCiVHU7jZM1sS1ubFinwwg gbGVmdDsgdmVydGljYWwtYWxpZ2 46IHRvcDsnPlBhdGllbnQg LJhxSUy2A6ZnDoytjUZ+TS55OBL sOC24zTIpnESbv4yzeKw9LiLaQU BeUNN3jZwoPEkhf9GfMQHh V60qxDApz5B5POGrbOdruUBhDhS pcFF1rB1bVXyqysblg0loulqmDd ivy3xoxs42mM64T65mGYec UHBnCNMoRLSnKVSiwJhgcw3wnN6 wIi8+WIJbjZP1dZO4kB0iTGDwGz O2RSqvM366EkWqiSIaFzqy l3fur2svjBu3DgA5SDMqdlYorFd yVPA5g5RkBl78I16rTAuzMWUqUD NmUTMnVLAxzCgxhm4lwD1x Ii8+JMLxcCK0vXN2eL5qNmApDfU 0UOstM025YcKnuCNyHkyyI70hD8 JvdXA+APCmVbm7KRXybCzh YD6mjEJrHLnjUt3bMFB1WiKqBqF aWKktA7ClYJPqpegtghyomHM3CU HyWSPeaH33Jt3icPtxJVAm rTNBzV8msugxv8xrwpphIaSgXFM rKBm1XTz1AJKltDloIoBiPLV2Fm O0DKQ7cVInjR9odUvpsbdu mO3uA6AtNOPallyvNr71uP2fRvB zVaV4UMhgRod+EvACBahnE3FRIS lUVdXPCCG7P6QdMfl5PWAv zRhkQM5flAUwMKvzYn6tnHtmbWv jSG4qCCAfhftmHCPrdG2yXRWyuX DxxVvmFR5kMGXprdipo844 TlQdYJD3QMZsyQGcX1EtpT9hTpN oZIIwFYVlT0EsgOTlKClaI456NJ gmRfS2ZINmnjCvE4PySNYh lXkbUpR9n1T6Ut7nLI2vJa4aKBt 9HL79AN89qUCwm6Y1xEO2D3YtPG PvmajdklthoUR0ZPWtTOBj tU01yVMgRIyhDe6wc5Q0h822SJY kILRglH37Ru8ihUbpKBKgdDWRmN 5dhtvoy2hwkkmhMtLcVVXq UFs8KJt6ZWCdtVuuHqOqENY7VnE 4MOM6yMSbqH9apMecdlhazG7rPh c+GcWtSJAmnyU1S7QxGfi4 JELueWfpAA1dhHGuRXyjUn7bcRr puSwsED6tREOxkeodVZMjuR2mSL FftILalXznTQ5aBYRyqijh n491ZnYfARE9HUGswFSxA9QrwP9 oPfNuIRTdTWLjF5SbmCTcZKcjK4 70ZGdjIqU7FEOvhuSgB4Wg LNDztShwBoV5x5M0Kv2RFR6LEVX 4K5GiTjc8QUIfeLfrFR5ulRGqXG ayHa3brMwbrMsiXB4fXZTy wtmgBHGooI2pAIQgqYCbtEgjPO4 wUWHlyxrjy079TzRjCAT1RYPwpH YeY7IunG6gQrDeHHNzUQRp A0GrzVJbWSyjV505WVzcZuY6LZK dolVpN3XyDRTqxYiaQyL9q4M9Za 5PUDwvdGQ+ZJ80qi21Y5Xg NhgvZfq8YRKfEZF8xGQ5kP6bQPR aZIrao5F5aDC3V6OtnxWvmc7ri8 mtHFSoNWzgO89jcCPoo6C4 AKBegWY9XXAsuKusKfEdfN47Qcg +COWewEjxs8VaDywbb8srl1aexM q0OjByODPrrzJluYosPSK8 h5GnIe83S57hHIpkLNEaSAKfGCO vHVJviOekmy3xrY9gBq2+PGNvbC T7oCQ6iT8sWrWjBuN5EVpi N961HcFjpUQuUvidq4oqk0mmtNe 2NbSbRGMybhGzqWfgUVD0i6RsQq 06F3KbyCyza4ZuIgy7lv81 wSPsy1X8dLO8D5CeLYRhjxlndTD waIhnJJ9aFKJbzpyvBTMroY2eLD ZmK8g1GfTvMgS0QLwmZ0Py cuW6JUZbsYDcCEVybOKRmT9woqp zy4xpxfdnIfLwOFBePUg3MDn2OR KccWdoWxKfIKH8WhR1XSP0 vTLrsJ4jcBguuezbbS4bDdt+UGh 0i2djuRGiVC6spHR2GE30GX88xW Mke4C5fHX3C2QjSLGqzgzu whtiwZY3WXIaTMVufF32Jg6koYf uDz3wOSEoVUI2CLKnnNTbN1MfwV 4jEhWvJVEwZWEvE4YlgLJc LMwwM982DGniHuG9FSPbwkRwR7X yTEFsoHftOkI1u4W6Ed8MPA81RH 87JA40eXRge7N0gSE6Q9Bi VIWetmmeohhjdUL1JKQfPNOhgD5 7Pz8veJqpZx2wHWLzZZJ7FHUlqP PoF0CzrR9bRoYqUPBeUDHw Q3SxwWRuRZzjS938CLxrCbC3ODI aufOyK1QgGRKnsEmkOiI3s2P2Hh 0WKw55HN04GA64tOYkp9P7 tQN3I6TrFIAcawilegugfOX6IIE gVCXgqV16Aa6lhNriRy6hWZOgUM U1MKBjuTBnT4TceR0nCyRa DHUaMDDzS9NbrPMpZRtaO785SDk pHnL1XVXnglQaK6JbSRLvrHvsWp M9q3M5Lc8TEAycfpx0S5Xw PjwvdHI+OR21NNFvEH35jMLyaXL xn3wxaRa5BbPeCQFkUJW6vDuqZK hxn5GqGGRbV34grSAcw4O6 IGN (more content not included)... [facility] Progress Note - Provideron 0 01-29-2024 Progress Note - Provider [id number] [facility] Coding Summaryon 01-22-2024 Coding Summary HTMLBase 64 RrybxdigEKn1nFs+PGhlYWQ+PE1 BCYHyW43qrWZidZ9wA1JZUCkUIx ccLCIUVEbFZuUukmWyNK7seZMlT XJu IC8+AT8dAROpUxrcnNPzx4R9eFM 6I48jyq9rLRtpjUY7VANxYgDqgd daa0fjyHv0OIvgJppxMbUr DTVkoC82MZM2oR39Rw10cFWpvYA zb1qqzEv5UbNmOMOnPSB1rKsmVL jkh5RqTIAwF92vzYHtl6R8 HUHsvLdmhLYpSdMxsDU4kH1mBRl iewhxy7gwrmxkNti9ah08tVVqb0 A9bNG9G3MgizX9TLYizLBf UshruVOIfU4xlcagf0smrbotEfT vHGPaIEn7ITp0IIKcsHfvIlUgJC 66NRH1BDWxwoSlN6ClWEYu rRicHgB3e0X5Jz8BM4FEZhakJ0M NTUFSWTwvdGQ+YJ05ab90J2HfOs lnJfu3WMFgXRY8rRE4fS3c ZEUoSBket3U2bXY3G2CcllCgbv9 ir0aoQHKsKJaoV17hdLRbc9D1JV CjcKW8EVZdsUxuGxOykN01 Oyc+YTZzfUzpu0QbCxoxu5ikc4v hgVv6FiujJFNoieSfcKuuDPC3r6 XlNe0xWZSbmUP7zTH8gO9z NaQzAdF6SLukO984OsFeuXWlFee tT83lG6LmgMU+DKUrLnz5KIYcgH niHL7eU0ToJRLurbvsnLXd jEgdMU8rDDBciiloRTZkfD6hGBL rW2t1ZrZqIpL7KKukD9DcSETwdw qeQc82aR8oYfSsBjP2OAoe P7NconM2IUPgvFPkLAzuRSH0J52 nu0P1YPDjCNIgADG7yRP8gI2jjO lnbjogbGVmdDsgdmVydGlj TIdzOBbyL669MIEfqJwzBgYrCCz uZyBEYXRlOiAgMDQvMjkvMjAyND wvdGQ+TVUmRZB0wTiuSRMm gUFbADqfTd0xcWfqvDhqZX8rHED hbdqeQDVjiC6pFAPdwWRpyBehRN 7lBQGeeopwy836AqRkQBL9 WRQewTEsQ5KqgI0fWyRcZBLoZES pE8AzsZLdEEggI361ONhvOlG0XO FessNsA9QvKDPmlIurPaS8 m8U4Dm3Ii3DndcozY7LtiYWoOcK zYudgMTe3P6PeZybdyRM+PC90YW ReMI40ZXg5MEF2yOxjRMmo USIjZ1XfhA0oGtBjBLThKSHdAkm +PHRhYmxlIHdpZHRoPScxMDAlJy QkzYpdFS5lXg4qLHByKFLj nEojzUZgUtYjo4ymJUMnESmbMU7 guIskB5NdjXN6KPCte9j3Wb69B6 0dK7AltRT+TJOeiSW2dTP8 gF8dKsEuQaE1DWxeP379TjZxwSG vHlzpq4hrg1mcoGw3OrN8DXUafz ZbrXmgXKL1f7NeYw82T32o IHdpZHRoPSIxNSUiIHZhbGlnbj0 vkF1xOk2+ZXNcwJC0lLB8oW2yVh ImEzL5UVfcW160NuEijLTr Reqww4tzy9gvmSl0HnEoHIZwjiK teUdnGRL9q7BwQs04D9MzlUvdx4 YrHlp9gx63eXTfr1F5cAH6 R2VfJZNmdsyrtTYyrSeeWX5oMYJ efgpkAUExvG3cPQBuN0o6XcYcNd F4APudS8QsisB5JNQtxDVu VOHqaSTNeK6umnmge6puvsrzYoE cZVKgTOs0FJu2KBNyeZweXmSaVA K0TiM0TMN1oGOhlW0gfElg bhcgeU9hPqv+CEZ7nFJyoVMYPG8 lOjwvdGQ+MWKsALZ0cHnfSUcdDN UslH4yLPXnS1x4SuPnNoK5 FMhhD7ElpiA0VPEzwRNwIIEtlNJ EbT1ldymlv5xfvlbuWlJeMNSrPC x1IFl2HPOhgSceZsFlNDO0 OmJ9JJK9vFAyoD0qmSkpuxnwqH4 wOyc+WsjumNogDCB7ZZn3F8RyOx z8ZGRlfGhcEP3egGDnJBpj Xh2slVupuBtdQV5wGHPtncaqc23 6FwFgj9vpRAGgfVSkVHvxDRB6B7 1ll7G5CLBlWTPyFRB6hDB7 oJ4eaNeoelccbDOdrTsqgzJvsQa yUDgvHNmhS708OJTrtVqtDaRqJG w3C2JoEgh6KZOzkTzgWI5z mWHxTBneEp9kzCgajUuzFK9zPVK ykzyoy145XaCcn2vvJNZgrCXtPI ptWQB6I56dk7E1XKTzGHEo SEG4qGU9dE4puBrwslszfHGgpIr arsRmpKmvXJclHZuoF726DBEelU prQfDnnHi0A7LcIyn9UOKo mZwcPN0iqCQcXEguIr2inDkjkGt oNY9uLGIxjpztw277FdAnq9mbWH BxiXIdXCdmOMV9D51az8W1 PVNkNUNjWCA7tHY8iP7hlDtjqlq gbGVmdDsgdmVydGljYWwtYWxpZ2 46IHRvcDsnPlBhdGllbnQg UOwqBEc5F2WvWuvhhWG+DC44AOH eNP03iAWqpTPfi3kxlSv9OlCwAY PsQZH1oJycDSiib1JpJYXv J16roPVgq9F6JYNfjQvefDHmNpH twUY9dW6bCJvezyzko3bvveeyKv tjq9ibiz90sU79W39wAXar WSJsQSZsOTLcSOTowNvjne0plU8 wIi8+SCQzkHL7hIA9qR9fVNAsLu N0LOhkE677TjYztPBsGswl g7rtz1bnuNr5PcJ9YLZoumXdvNp yIVH2j1CxCm95I05gCCuoAHAxLS PfRMVcTVVxrRmlcs5pfF6q Ii8+GZFueIV0dYN7mM3bCoGcRyS 3DYneY197DaYylJIjGfdlJ75lK8 JvdXA+PAQnUlb1BLUrlCtt LP5jnKOaHWmlHt6rYLP8IcEoHgS pSFebT1XtWDHdmbgbhcbwtBO3QL NrYHWoaD18Jp4ocOusKWRe eJMJaP8jyinwx7phrtaaQfPeBKX lNPi7OAl2BJQdrHfgIyYjNVM7Ba V4RKU8pPGitA7jgGnqirye vR6gT4QvJNWxswxnBv11pB7vCpR qUeK5NUbkFjq+NuSWLppdB0PSHH jVIeYOJNJ4C4JyBha2IJHb uZwoQQ9htADsKFfhNm8rwRfwrIw iCN7sPCYezxihLUCnyH7jRQXulO AfiFafJI4vFCAxbfytf486 GnIpKWL4FSPplOQaE8QqcU9iDvL kSBXzMPAmJ1HqcLFdEUuyD156VB urOdW0JMEmlrQrT0QxDRDy xSyvUdL3a0G1Wa0bXJ0jWr8iTCu 5NG19MV28gWDca7B0wLU4Q5YvIW LrghvfwvtltAH1YLUlPVJn bJ81pJRwQOezXs5uk3M4b110PTT vZYVabG88Kz7jtRuwMGXapMNRuJ 1goxisy6xwhjjyXqXsQQWs BIt1TGv1PRAbaPvdXlVgMHS0FsY 1KFB9rJIwiZ3yvZjivaadyR7kKa c+WpArFWEmbsK8E7HbSfi8 HMXnxMetUT5yuLKhCXksIe5woSh ouYwdZH4aDQIyzzfjHOArxU9qMM YeyGXziZnuDK2aKKXrihwm [id number] rVgTpTMNpVQUkK7KrrZInCNtjW8 92RVulRqS8PSPfaeHfE6Sa MSSmtPheJnY0s7I8Gz1ATT9HJNS 8C3OaUst3LINqyFdlLM5ctPJvZH veSg8eqJkewNlkLJ8jOBFg cosmQVGijJ2iPRZzsRBpyMyyQQ3 bYRAjtjeip014TyRzMVC0IXNseM FuL8YqxS3vUhUkIRXdXZYw Z2ZstMRxGSasS124PIkfCgJ0CEW zveZrF6ObHGEemYpuYdE6k7S1Hz 1YMYrwC1NiQ7StnSaatWZ+ LA13ys48D5QdGkqdUci5AJKhLAO 2mQR6cW2yWIObWKidt5A2xZS8F6 CcwqSgfb3bl9bpCRCrEOtm W39uiOPts5S3HURiiII3ZRYnbFg lRhYxcR40Jxd+KYQgiEvxo9TvMb pbc4sjf6tkcBj1PmCvOYTh dtZulWgiSYF3p2PiBb59J58fBPp pGDWqUYJjMFOqFZKbfCiavm1rlS 9wIi8+KZKyvPG1fOK5bX4d KaIyNeJ6VOjuR859YxQxbMQkMdi ro4djr1ggiHf6LwGfVQLzviHotS hvUMY8e9WiYi94J3JkfIkp a4OzChq2jo91fRAjq3U6zYQ9R2R hBMMkoqbhmWMmaTzcYX9lRFFgjx sdMBVyqD0iQTBuW3b1OfIi BmY3PThaV7YwzaS3OODqeYUvJVG naFKLbG6fwwfwu0hjlfajDbMpZM QqQOs1PXt8DGEbfIrlPvLh SMS8YkB2EBU6uZAcjV2axHleocb dwP0vDhl+WHo7r6dvaPUkFN2kjE K7ZL84SI81eIJep4W2bKP3 A0FaRSIztshvvwrjoYN1IMQaPWP ewC72Aw9duYrcKf7nUNRnIJQ7DL NbzPUnM7FwxM2bPgGsBWEj KDRsG3WnaSFuDFlcT179YEpvKyK 4LQWamjGxU4BrNUNwzUhyHxI8b2 Q3Dt7HSV68YW20DO84ePBc h2D2cEK1O5OyZLRfcmrcsjxthYG 4FPZrDEMpmG00Jq3ixPlaNi3lNI GoAEV9PAUxqOIwF2TrvF9s XkIlDXEiADIdQ1NvaAXoKJjhX18 6IZilNcH3PYEvweJaF8YdWPNykP omHrU9j7T9Ga8HLa42DQ43 AH11pPRef0S2cLK8A0RwAFCthgo sdlcsqDT2VTBgIAUzoB86Lg6iuR njEp0zDXExQZL5EGNutVRj I1XxyV0wLzWdHWWuYRGoK9LfgBA iXIlwS687HYbuUpR1DHDpnqWmV2 MdOLQopTpqWqK1d8Z2Ho4B ZPdwjzr3I2FsDerisCO+FY30YCF fBH59oLJcbNIks3etbBo4KnLuWS DmZAV1kXzjOSgjx3ScAAKm Y29 (more content not included)... [facility] Coding Summary HTMLBase 64 MlbwaxiyFMu9mZl+PGhlYWQ+PE1 LKLNlW59egVYvuK7zX9VYTXzPCk sdQIOGKLbHSuMtkdAmAZ6dkHSaS XJu IC8+FE6iHCPbTndbiCUod4N1kLA 5H17fmu2kOEhbnII5QVPxQdJhwl ppf7sesCn4XMsyTtapQgSq ZDUpbA42EXR4dY11Rh85sMBdzHP lu2cvvWw2YsIrTGUbIJD9lFwjOT vqg6FtYCClV58xvSSln7P0 UXHfkXlxxWGlJpQduFJ7sM6mVCe raxmzb9inbuvxOib6uv92iSUwp7 Z3eVS6D0GyrhX8DFXquJFp QjhmvIBUjQ8fiqtfd5uczkvnUqK jPWWlUEu2EKz7NEIvyZppVwRbCN 57WFE8KZListCzQ4KtADFg qCitBfO6g5B0Ks1OR0DMOsimI0G NTUFSWTwvdGQ+VC73im59S1FqTh apRzq2OUPyLCE4kKU1yR4c PVLlIKukc9U0dOX4E4IjvnIaoz5 pg9rdOVQvGTnsX85smGHeu5Z8SK DufBY6QDFmfGszZlDlzY31 Oyc+KIPrtJrpb2RrDmqvm5whr8v opYa6ImqgAHEusfUzlPaoBHN7p8 YlKf1lYSJwyCC8iYU2nP7q HfYmUuV2WCibE314OrFdcDQiIyr xA93jH8WhlBE+UPPrXfd6GXKcmM adLQ4gO4QmWLEpyussiNXz iOcmED6gVNAkehtpNUExeS3oZEA vK5d6OpXfSyB5LSmzF1TsSJIwmr jnRk86oD9fRsTlFlN0EGhe B5DsgaU9PIKekQUzDGmnQYM2O33 lw5Q8MEHzTZFcGLQ8tCN0wV1muJ lnbjogbGVmdDsgdmVydGlj PSquLWbrA035AJLqvHusIsKlOEk uZyBEYXRlOiAgMDQvMjkvMjAyND wvdGQ+OEYhUVI5vWfsRGGh yMRkRHldWg3iiWohxDrhYI6jJMR utsguUDYalH0oJBUcpQCfaUybLK 0gWBYdcahtk816HsOaOLT7 ZGHfrNKpG0OqtS1qSvWsAURdPDE eM1MxqPXcFPuxD293CEqsGrM2BX FqdvQzH1SyGBQsxSygVbN6 g8I6Ep3Mx9UjxtmxY3OwqISiHhR rJmbnOHz4E3XdBzgzxJF+PC90YW ZiCF44ZTm8VEL4iMqyMZgg MGYjW5UlcO1aYoSbVXWpURXnJje +PHRhYmxlIHdpZHRoPScxMDAlJy LaoOorFJ4jTu9uKDTkHGHc nSztcRGbMiBxq2voEWGmYNbaBY0 ogMsiM7BrnDI9HZNva2p7Nr54Q4 3uV4MqbIK+JGKqbPV2hPS9 pL3lVoJqOjQ7YHgsS690UmEcpGB pNauqk7wqy3fxqGq6SbG6PKFqri VojQupAOV2y6SgAy30C67l IHdpZHRoPSIxNSUiIHZhbGlnbj0 vxF0qBj3+VMXyhPA6gLQ1vZ9pDy VcYhW6HNgjQ522DfRyyVLv Tffxc4xsn2zefLe3QiQqTSLuesU kqVcmQHI1k8HvPv24R8WmsJfil6 DiKwq6wl68vQYwf6E1zYH7 D3BhDXZetdcpkZCfdMygZJ6vIQP cbmhtIKCpeL4aUQSrS4j0TbRdZz S7KJofO4LovaQ1AMUboWFc SMCczESZcJ0cggjtj7fbcbtuJuF gSICwLHl9PFt4KWDbbTxpJjGhYT X8SzT2LZY3kORziI0giMou evaofH5xSpy+YDO3xQZopZCBPC8 lOjwvdGQ+YUScZLD2qHgiVNkuRK TyvH4kJLBkI6h5GeIsWfR6 NDpwK6PfqqG4TRXjxFQqLLAzxNR YkI2dgftec4ktyuavKaXhNGLoET i8KQi9KODjpDvpLcDoLCS7 BpF4OOS2yUDieW5hdYbvpuvpnF2 wOyc+YciutXzuCLV2EEo5Y7KtQt e7BTPgeZdnRU6ryZHhEFme Zl7jwNotxVgkEK9fSUXnfiecx37 2MiNsm0xwEWNtiTEgHUjrYBG5C9 1ly3G5PNOjRIZlMEM4dZK5 dH8iaVxcazbzdSJjpVpvskMnqVe aCGmgKSfeW922BSHvsHvbCsJkSX w7T7LxCbg4MAVxbPdyDK0s mMMgTPsxCa2zkUiavNvkIO5zUVE nviufy314MwRkq9zaMPKouCCsOH phJMH7I46sx1X5ZQOpHBEd MFY2lUG0yQ1gjYkjynbaqGVgzWr vqtNmoIntMKtpLWftP484RROutY niGqPdiYr8Z0UxPva9KSWm dEayHN0zhNJtIGkmPm9kbOkgpHd jHX9yTYBttngdt861YaAgv2aiTW UxlBZyGSuwTGM8B80pp4R8 UVQeAGXqAYF8uSL6hZ9llAyqgmu gbGVmdDsgdmVydGljYWwtYWxpZ2 46IHRvcDsnPlBhdGllbnQg AExfBSj7W3EyIeudwNH+WK05UDY sGX57oMUivNFdd4xjyLw2WpQuVU ZoYVC4kPetLEewm7ElBALi O04ugHEwy0Y3ZUQuzHfxcAZqZcJ rlNB3bA7zKLmzltgtj8bbnldiMk ijm0glci38oS18Z85pPTvb PMPsPLQeWNWgHFTrjOnkns6gkT7 wIi8+VUAjyPU5jIU3pX3vXPDyFa B3TWqtR762VsLxsOPdHasv s1nph7lbdUi3TuU4GUHqdiJerWp xAVL5k4KiGv67X31uCQfySEUlSQ QmNAXwFBVqmDlpzz8dxE7s Ii8+BDNqjXY6mFE0wK3bJrZjVsB 9XQstV162BjPfrBVbCtzuJ41lZ8 JvdXA+VQUqHfm9GDBfsXir NR8xkWCbCNooPg9aIVL3XzKzCxQ kACwbJ4AaZSShufdklasraPW2CP HyIGZwsN68Zc8prRjqFEOa vOZNiK6teoeif5smyezxZuMsVDJ lBRw8CWw7HSVfvFrfKjAkGUY0Zh A0DDS2iHOazF1xuXuzpcno yJ8hN4OvSAKshmdlDg52eG7yRaM dBkL9CJipYvj+NdAIRhazG1YRDD wYCfVPGDN8O2BcCnw8VLUy bFlxXO6bbKZwCQlrGs0mnJfuxCk hDJ7jFSZchokhRUIpbL3rXDZioH UghAteUT6cLBDowqjgg918 GqRzZKO9JSTyqXYbL1AntX7vByA eSNAaWSWxR8HsrIKyKJffT733OG hrFsW3ZGVeakPqJ4AtVESq dBqdWjL7n0K2Gd2qZQ9uXp1yYJc 8YE05FY04oIMzl5T2yGK1I7DbXI PfasdpotyiiOY8SLScWRVu hS51xGGtKKxaZw3rf3F9k007TSS jJKVxpF58Ig0wmBxpWLPmoWZIyO 6wxltex9ttodctSlLaAFJq RZd6CUy8FKMwkGiuAzMnNKG8QhN 0SQX6xLEikQ3luWwrjlxjzP1yAd c+PeEnYWWmvqT1B2LuJlg5 TQHxgVeuYD2pgJEwRTjyXa8wfHm amDvzWX1xNOCtezezJZAuwX8tIZ UjoQAlcUtySH6kVJUvsmci q028AxHwKUR3HZIwhROiR3SfkN1 fPiHiGDRgPLGmT2ZcwEPeDWsoB1 85XYuoCfX7UHHgemMhC5Ck PIXwgNasUgC8u8J8Aj7QFA6OAVQ 0M6XsNef9DPDdkFzwBM3kqHNbGH sgXa7cvKnshBwqPC1rWJJi zatgSXRjgH2uBMZavKZseCviSE0 kEHItxmydg541IlLwNTS6FZEjxP HcX8ZkkZ7mYyDnBLGjUVNz U9IfpAIrGQzlW280RFdoPeP5PKY azcExC4LrHSMqeAdaKrD1o5D8Uk 5PUDwvdGQ+TD12jz09X3Ci MkknVyr5FNPiSBV5uQK4iL4bAEC pRRwpt5N5kTE1R1HrwjFpma2aa7 ihOXPiQMenL48htDLvr2N6 YTEloNZ8ZZWdsMwtFsLyaG30Vot +UZGelIqvy6EkDhhzs5lmd1earH a5WpLbSSLbgcMayWkeKOF3 s0EcYh35W21hTRnfGEPaWTZjFAP uEMWceCctga0qmV8mUw4+PGNvbC E3rLD7pQ9zAaHyXuA9LOrz P186CaGglBVzZimxn4wfh4egkAr 5CxGdWDZmxzYnxQwhWAW6n3MdVp 45E8TtnGnqx5QkJwj0xh34 nREoh0C2xCT1L0SiYYYxgsqupYB jqFfiYL0fNOVnhoniKZUhqI2mEE ZdI3o5OzZfSrK2VSzzQ8Ez yeJ3RPEtvIKgZHHpqRCQkX9uptu os7ixbxhtVtFaUVLwWNv1AHy5CM TigQseUsPxKGG7JlC9YGW9 sECqjC6hpGksnckbhQ8bSkr+UGh 0r1csnIVbDC0qxOS5MV12OL84pW Dzq7C0pHJ2G2TgIEAstlql wpeusQP8GZIdZMOelK08Dh8ipOy pTy1bNXKqKTX0CSAxkMWkF7CdrJ 6mOmDnPZZkKOFoW5FznQZv NBlgO691AQacTqZ1VLZgfiHzW3N cQKFroMqcYzB2o6E5Nx1ELQ13WY 61LK57nMHsr2G0wEY1W2Xh FAGcqowpurupiXK6XDRlCIFvpL3 8Co1szNqrAy4uNTHcPMR4IETsjM ZyC5OxvA6bRpNqRYVsUVMn L3EfhFFcSZakJ370GLjpEgS3QLS tvhIqI9GhGBSrgJpuTgG4f0N6Qf 4ZZz74GB66NZ24rCBkq9H7 pUO3C7XyEXZonlqevsrgkWD2HQT pEFGkgX60Zn7imWyaNy6gLFWlLX B7USGomGPjC3HgoQ6dDyTb HZSdZSFuS8XydSMrFKftO774NEu yJjC1QGTwhyCvP4OxAPLwlKhxQa J0r9Y6Ru9BNFwoozl9C1Dy PjwvdHI+GN18BOZkVB48cXRfaUQ ih9soeHo9RaTsNLViOGQ1xFwmBT rba7VbMGTgG99foGTsl3P2 IGN (more content not included)... [facility] Consent Formson 01-15-2024 Consent Forms [id number] 01-12-2024 Consent Forms [id number][facility] Controlled Substances Agreem entson 01-12-2024 Controlled Substances Agreements [id number]#[facility] In[facility] Patient Summaryon 01-12-2024 Inpatient Patient Summary [place] [id number] Patient Discharge Instructions Name: LUCILA JACQUES : 1990 MRN: [id number] Patient Address: [address] [place] [address] Primary Care Provider: Name: Provider, None Phone: After you are discharged if you find you have any questions, please, call [phone] ext [phone] to speak to a nurse. Discharge Diagnosis: Prescription Information: If you have been given a prescription for narcotics, seek immediate medical attention if you have any difficulty breathing or any sudden status changes such as confusion and sleepiness. If you or anyone you know is experiencing suicidal thoughts, mental health, alcohol and/or drug addiction problems; contact the [facility] [place] [address]/7 Crisis Hotline -Text 4JKJV ub 449594. If you received any narcotics, sedation, or [...] business decisions or sign any legal documents [facility] would like to thank you [...] for Disease Control and Prevention May 2014 [facility] MAGR Intraoperative Recordon 01-12-2024 MAGR Intraoperative Record MAGR Intra-Op Record Summary Primary Physician: ALEC PATEL MD Finalized Date/Time: 01/12/24 11:47:08 Pt. Name: LUCILA JACQUES/Sex: 1990 FEMALE Med Rec #: [id number] Physician: ALEC PATEL MD Financial #: [id number] Pt. Type: D Room/Bed: / Admit/Disch: 01/12/24 [...] Sara L RT (R) ARRT Role Performed Savings Counselor Savings Counselor Fire Information Officer Time In 01/12/24 11:40:00 01/12/24 11:40:00 01/12/24 11:40:00 Time Out 01/12/24 11:46:00 01/12/24 11:46:00 01/12/24 11:46:00 Procedure Block Nerve(Left) Block Nerve(Left) Block Nerve(Left) Last Modified By: Reba Liang RN, Kelly RN Weisenburger, Kelly RN 01/12/24 11:46:22 01/12/24 11:46:22 01/12/24 11:46:22 Entry 4 Entry 5 Entry 6 Case Attendee Mason Garner (R) Dina Malcolm THOMAS F MD [employer] Role Performed Fire Information Officer Scrub Personnel Surgeon - Primary Time In [...] ARRTPatsy James RT (R) ARRT, Dina Malcolm [employer], ALEC PATEL MD Last Modified By: Reba [...] Text: E.290 Evaluates (more content not included)... [facility] MAGR Preoperative Recordon 0 01-12-2024 MAGR Preoperative Record MAGR Pre-Op Record Summary Primary Physician: ALEC PATEL MD Finalized Date/Time: 01/12/24 11:49:22 Pt. Name: LUCILA JACQUES /Sex: 1990 FEMALE Med Rec #: [id number] Physician: ALEC PATEL MD Financial #: [id number] Pt. Type: D Room/Bed: / Admit/Disch: 01/12/24 [...] Signed By: Sushila Quintero RN 01/12/24 11:49 [facility] Patient Handouton 01-12-2024 Patient Handout [facility] Test Urine 1on U Preg Negative [facility] Comment on above: Performed By: #### [id number] ####[facility] (DEFAULT)[address] [place] [address] U Preg Internal Control Pass [facility] Comment on above: Performed By: #### 3 [id number] ####[facility] (DEFAULT)[address] [place] [address] Progress Note - Provideron 0 01-12-2024 Progress Note - Provider [id number][facility] Coding Summaryon 01-10-2024 Coding Summary HTMLBase 64 FubzysurDMo6uCm+PGhlYWQ+PE1 YPEUpB66juPXziX9cY8EYKTvSCp pxCVVKMVcDVfIpjkOlCT9bvFZoJ XJu IC8+QH4cLUGkJbrlhPWuk2K9nEG 5K07anr6mYVdwkMP5BGGiUkUyst mvv1jqjGe0OUgpAnrvYoQq MMEgfP05NAM1dA59Fy52bDJduOE qn2neuKp3YvYtMTCdBMO5rRzpJQ aot5IbPGOaA71wyKVvy7R9 ITAxkVcrcGMzWdXceIG4iP3fPBu hxjmtu6ivyzauRti6tv22lBTzv3 T0aNL5B7NqreU0XIRfeNWm IebyvACQeL7aebmxg9eprvcbNyU eQJEfRRm5VWd1UDXxxEyiKyOqIO 20TOL2EJJvmxXrF3NrWRDh tOuqJmZ1a4U9Oo5ZD6DSSypgF0F NTUFSWTwvdGQ+ES91de95W3OjJg qzDwt5EPYfODA8mMM1tE4d HVNfKDbhx9A7jMX8M6DkwkYvgy5 pp6bcLKQgVThcM83siDQhu1O8EF WktOU8WWXspExdVePgyZ37 Oyc+OKEfbJtxp6WpMiggy6jvk1z bbWc2ApgbBZQvmeJwbTzrVNQ7f7 GjYh1dIXUegKS4pRP6bV9u GxWoFlN3CSkxQ523OyFxaZMaVtm yI68aT3DptFR+FQSaSrf7URPsuP wtII1yH0CjYTQaakfthTAa bYixPI5oBBBylcdrVVKubV9lXIT lZ0e0DnZsXtJ2HBuvF8MyEHSjgg mkFd43qB9fOgMjPvW1XZuv S6CtobU9MSXagGXdYMdnGGC5U12 fo7H3BXHuXVDvXNK4uZG5qM3kjT lnbjogbGVmdDsgdmVydGlj MBpvPHzlK098OKUkqGnnDhKxYOx uZyBEYXRlOiAgMDQvMTcvMjAyND wvdGQ+LUSgQZA7aCxfDPFv rAAaECpbOr7btKgjbBusWB8mROR klomuENPsrZ4nBSNehTDesNmbWE 5lNHZcqauax817HoVcGXY4 JQIskDPoL8HyqO5lGtQzLGXzXWW xU1EbrZBeJKraD872HAfvEjS6BZ TdwfEsI1JqDZFfxYbaXbS8 x9S9Fl1Xm6VwxihtD3OieVWlYaU wNxymMTq3Y2DdItflyFR+PC90YW UyHV25AYo2NWT6vSyfGEpn QRWeU5DryK8nKwUlZGOeOLGzRbs +PHRhYmxlIHdpZHRoPScxMDAlJy TzpWeuNC3lKs4aDXEhTJAz dKahjVIcUvVdm9quIDGgKPpwYZ7 krGgjD2CuoAU6AGPqw6c9Lo07R0 8xW7DggWQ+IGFebDE9wNB2 jK6zQtYcCoJ5DSgcW895OwZwbOW mExznc0avc9wmhUt0IaQ4PAJplh OmsVxvUFA7l7VrJj84C09h IHdpZHRoPSIxNSUiIHZhbGlnbj0 umT2lVk4+CSJpkIH7eGO9oJ5bCj ZrClY8ENbbV168VhUnhAQi Rvtyg7pin6luoSz0HpTvFENndrD qsQjfSFV8t2BvZk51Q6RcnJkfd6 HqGbw7xz79nZFyw9Z6gAT9 Y9FeLJLfazueuRNkvTbrUZ9aNTX acltyMHSwvP9dJCEcR0h0YsQcWn W2YXsrM0RvrbN3LEZduZEn ROQtgTONuA0xkcsol5ladmivDhQ rISHhSNc2TEm8EJPziLpoKeVcWE B8QrA4HPA3fBMogD0nlSdc dhmvvE9nFxs+ATT0aYBczMQXII6 lOjwvdGQ+SLNhVCN8wYqqTGxnXK ZhyE1mNIHfS9h5OuPfXaY5 ZAqkJ8RxdgC2JAIkkQElKKFagUY BeN6iemedt3nwzbbzNmDfVJVzSK g0MMb9BPAymEcfUfPqXBW0 ZuJ7XVC4eZTixM2khKzksxknqO6 wOyc+LnjvdCkeHIL5IGr1R7BlUw e7NLQqlLzxLU2jsVJjSAjy Hz4frFviaJdhHC0jPTXwrtwgw60 9JiKoe8xyQOUyvDJfUZvfMKF9H8 7se7I4ZZQfRZQcTWP6hEP5 vE1zmVwtmfpyiZMjgExurkVorXq pCNcuIFfqX875ILMxaIacYxYwLZ o9V4AbEdl1VOTysBhoDW3f vYYfBUmpKu3vyQypnWzgUA8pHHD udtsse733XhDzf7tvTQXxmBWqQJ exFYZ5M05th0J4EHJsGOLz XFI2lND9dZ7obHedpizqbEDydPr gewVflQlcJDtaPNcqV334YKAivR ciFzTbnUq5R4TxGtv4LRIi xIcoSK9oySPeFDwsGa3pkZlzrAx yUU2xKYOljjhfs253QsCjr5byDG XxfGKxSTcuGAW0N47ou9V6 JNHgERSnOYT9iHY9oD8giAflyyn gbGVmdDsgdmVydGljYWwtYWxpZ2 46IHRvcDsnPlBhdGllbnQg ZRtfFAe6S1LlXrghdSB+WJ16MUA mEK18fGFokCOre1kuePf1QaCxHP QcOHT2tNebAVmfr2IjNSJf X29mvLJqk5T7TGAssDdgvSKwBjY wqAS0kF0kMQekqirha3tnnrwcGh tiz8ujdk82hA35W58oBWrz RCEbDZMnADZcDJVulOakei1lrW8 wIi8+GSWeyQW5yNJ0kY5aUZZiTf B6XDrtN584EpDpuTDgDyeq p9opb6fesJm9HlY2NXMtylTqgGz uROJ6a9LaEo11L72eMZyqLIFsWR VpRWToVHObhVyoor0khX0c Ii8+RTVboWX3rIF7xS1jNjQaBuF 9IUurV005YgYriZWlChbqQ35eR6 JvdXA+ITGsDjh4MZJbrBmc DS1naKHrNCtaXo1wBNB2QgOlMmH nVXvbR1FuBXXuvoscdlqziFB3VJ RxMNVskQ92Dp9oyMrfLTXr nOFDaB7zobpnf8xxkdpyVkJxARF mUQx3QZt9LHQynDpoReIcRPW3Bl O3QGE1qTPzjO9bhSlqqety bZ3mS9EkINRagpfoZw77eS6oTtX fAjF6AYqxFsl+JaXAQzqoF8TMQF fBYhIFTDI0F8GpNjy8RRYk gMzjXZ4bfCNcGXzkPf2gfJmeeBt cBX9mLNKneqbjZHAgeE9nWYOsfG ZnmYynGO8vDCFzreqjz618 MdXvBAH2MAIllNZcR9NoyE6vCmW eLLUvVJFnU1HbtOClHRpuX057NI xcSyJ6COPuleChD0ScEZIr cNnjCoL9p8W6Oi3tHI0mNc7nCMb 8JA98BO16aBWjp0U6pOW1J9IjIO ItspioqowoyPD8GYPsKTBn aL42kXGqFHdbSx8pl2M4m968IIU eUEEvpV54Mr4iiPeyNHMmuVPUdI 6smmznx6rnjrhaPlZyETKq QQi9CVn6ZYZnrHjkCqQgXXD8TfY 6HEX2mKWovN0yxMkwytbdyP2wLg c+AcVzCPNyddO9H8KiHds1 AKMcmMwzVL6piOIaRGogOm7xqFu asYinLA4kQXPvofwdDNYdyD7vPK FjcJJpaRdvLF2uFNNelvds c478ErQoVKP9ONHuxQUoQ9YjxT4 gJoFnNVDsWIWrQ1LlzPJiLDzkI5 55TLrpSvJ1ZGQeatHaX1Sn NMRmhMhcDsV7x5G5At7ITX1KDET 4D9MpZme2GCGuuCopGU1kbVOtMB jnOh6iiUwxiFxcQA9nEPTv bvqjSNZwxY3rDBPvnGOtjAexIE4 xPBBvhkxzd714OkBeAAZ8UAAafW ZzP6TqaW1qGnSvTAZvVTVd C6CmeYRuKUmaP244OTsjThD7NRQ fqmYiZ9AhDOCpjSemSzK6q8P0Tp 5PUDwvdGQ+JS36kd06H2Fg XleoDsy7KBGvJJD2mAC7wQ0nVDW eIZkds5I4yRM6P3FqbqSffg2no6 tkGWPhIMpnX99cvIOoh0D5 AASrlVD4UGHigQjwYbWyyO80Idt +YRBivMonp1VcBmqpe0fer3fksT r2UzUmWRDonfBjyTdvJVU1 m2AyRd09U37oHDgwNAEqUGElNIC dHEJqvRzdgm0vpR1cBv6+PGNvbC F2wCE3eS1bUdIfCmW6OYhl H898FaCknBKzNmrzu0tuy7dwcZw 4FwUyWISlgqFtaWqrBTL3k1XnLs 74Z4ZzlFvju4TaPsf1qo30 uFIqc0R3eWD9F5JpTYTyitjjdDW jsOpgUD8eXWYahenyDXGtvN8eIZ YnO7h5DtJyAxW9HTvjT9Ts ieK6SZXoxQGjLITivXCNhZ7hfmt fo2ahtvmeSxXySKGsYOz0VTr8WI MicMjgHcCyWNN6ZmE5BOV1 zSQpeU5hyDumpglfxP8aTmt+UGh 0h5fdeFLzUB9ybFO0DQ54OV54oH Nxo5W7pGY7X4SgKXErufsg lcoaeJH5DQUrKOBadS67Nt6qwHz iGn8qIHMiEJQ2ZGMikHMrX8TanW 8fJjBhSPUyAJOmF8VljUUr DDvmN686FQxcXaF2IYGsjwEfZ2M oFQEibQfdDvV3u0C9Ts0WOY43BT 23EP65hJBep6U4gXU9T0Ea JFHpnnbeuocslQW4FCHaDUCpiX8 6Dn9drWetRq3mUVHpTZR0GSHbvX PsH2YeeQ3uKiYiFUDzCFBh W7DyqIJtGOnnH744CIppVuX0NAF ogaNrD9VkVBNpoZxlYaO3z7V3Jn 2MUy13ZF57CE81tIFjr1G7 jSH3Y4GfANTnedantjbigVK6ZOW lLPHdhG25Zh7iiVhlQs9kMTXxMK D2OTEhrPGzN2HrqY4bMkDx LHOoPAMhQ7FybYGvVAsxA658MQl pZxT3EEDiswMiS0XuWCAcbBcdRb B4y4G7Se6XTTnpare3X9Mp PjwvdHI+QP89EXAjRM00vVDbfET dk2iksCr6KrMfVYKpDGO9vYbgTR uwh9GbSZBeP36waTHrt5F8 IGN (more content not included)... [facility] Coding Summaryon 01-09-2024 Coding Summary HTMLBase 64 GxthgpceAWa5nYg+PGhlYWQ+PE1 MSSWgW79rqZDgwW5vR1SLATvYOq pxCSTQCUgEBwBilrQoHK3wdGTeV XJu IC8+NJ8aHKQdEorlhVVct2D7jOG 7S28rnv8eJCwdeEW3OFWsRhGdsa gng1tbzEf0TPcmJrakUiXe YCGudH73PIE2dD17Ny53uJHdeXD af2ythJi9JiYaYDMpNKN1vHpfKU zty6HpLHNtV79dnSWbr4H7 WLDdhLmtsWNdJiYtsCW7mI5iNJw nvrwod5ilqhzlZzz5xr48tRRtv4 M5aYZ8P6CqjoT3PVWrbMFb LymlwOHSgC3uypcym2ornpbhKfY dBMNeIBj1APh2XHWfjImnKjWfNP 11YOX0AKDszfSkF4OmPNAc xVuaNyZ6w4S0Kk4JT1AOIblgC3C NTUFSWTwvdGQ+JP72ej59U9MfPi opRpq5UCCdBND3fYL7dG4h MNWvZIdwr2J8nAW2U6UoaqRttv5 oy3njPLDiBNltD46jkAObp8O8ES WaxAK2JIQerNbrGrZmtC45 Oyc+ZZDqiDhwg0UnDlpbj6ijs2h gbXt8HunyKROoqvJwvZumQRY1f3 HmWb1bNNCfuMC0aFH3oS7k EoFrGkC7UJxeE818OkXxfCHeIkq lE74mL7BkeZM+LSRhZgp5JBPwjS csGS0xE2TgEPTuwwmmyVOm hRftIG0rQHWvanyuSAAadT0tWIW uI3m8MgTmPlL1KOkhR1OzDHVvsj pqKw72fZ1sYcMuBvA7FSvv L9ChhyV3KOVrrYPlOBreUFA5M59 wy9U3RXZzIAOqIYR3eGH7cD1tgD lnbjogbGVmdDsgdmVydGlj YNmcNRliW602AZAwlYtnAvXrQWb uZyBEYXRlOiAgMDQvMTYvMjAyND wvdGQ+EYEhZTK9tXhaQJUw yVSgOMnfVf1mkNwqpUgfRL8nCWN slloyQETqmL1yXSYneZNiuCvsVX 3nOYRsmdnqm806ToWnMJT6 VRVbyCTaN2KubR1yFvKpEUIaVWD hL2ZptRWaOJktP093RFrpAdD2IQ RdooRhX1AqRCZpoBjaKqM1 y0P5Oz2Ua9PdmfhqZ6VaeBSvFmP kAasoIPa3U2HvPdxljPE+PC90YW RzJX56BHz8WCG1uLxdVKaz RUKeB9BqaJ0pIsHkCFAjZXPdBup +PHRhYmxlIHdpZHRoPScxMDAlJy IpsZmoZT6kWw2rESIaNYTa ePgyrSKqDvBog0xrNNCaWFslMU0 qdXzlS1MqdTW3PFNpj7u3Yh18L4 0xF3NorND+LBEajKM7vDT3 xC9pIzPhRqU5HYgaF797UsFohFX zEygtv7lac3nleVr2NgF3ACWvxj LwbZgtPOL2w0VeZs43N34z IHdpZHRoPSIxNSUiIHZhbGlnbj0 pcP2nWx6+QSNqyDL2cZG7dX3jXl BrLtR8YEyuK536ZiNkjQBc Xgnel7ozx1idxOk3RsKxBTTqciG dcCluCIY2i1ZvRj95F1YgnLtmr4 NnAtl9zd44eZYpz8C7rQN3 W8VaJHGoyytotNVxdCqvSW9iYFR ksvedMWLraI6mLSMpG9v3YpNtHq Z1AYnvN4BjrhO4DPAnzPMi DXAoyISJcB7aiujfy0lmlanxQwG sXKMsOXi0ZFv2BVLtmTufOrPjQG C1FcZ5NZI0tMTyoA4qzBjo tnbmwD7jGdh+KKX0cWXvnDSIJN6 lOjwvdGQ+TXRuAPD8oFfeEUxgWC CmmX0pZYDtD4d8NyJuQpS6 BCfaR4PyrkJ1HLUiuVLeQJJbcXK UvQ9hegfoa3yniebuVxFaQSSuAJ t4SSp6VCWbvVybAiWhCZI9 QcW9CYD0qSOuzF1rhEgaqlsccB0 wOyc+QinogSxqSUP0OTf1Y2JkCp b8QGYyhDwjAK3srPBrQNgt Tk1pwEuanJwsCL3oWOInojyzb30 6WcMbd1sdIIYvwQUjZXixMGU2B0 3gi3E1WEFaTJTrLGO9zXN0 cZ3lfWjtjxzmzHDvaMsqbgVdcSv gYEtyKKquH906HFOwcDjuAcAiUB i3C2OmTtd3WDXpzVzwCM6p wQSmJCwfNc2slKqryYfcEE2vWQL gwzjyl846JqPkv9oiQCWjmRJkWX kwEAA8I56yf0Q5AJLjBPPe YWW7iQK0sG5kkLmidpfwyNYwhBw sxsBmmIqmAYofFAguO805BIQzwB bnXoZpoTe2N8KxPjz3TPOh mYdfXN9qhMKnSQhkSz9moUprgVw cJS9vKSJxbvwzi005CnUfc3cbSE PraNJvONonHDH6P66is0C2 NKPjMSGoAOV1iHN2yL8qhCqomlh gbGVmdDsgdmVydGljYWwtYWxpZ2 46IHRvcDsnPlBhdGllbnQg VKdcWBq7O7NkEbggwXV+XJ62FYP hJD24xOGyaGLts9wjyOc1BiPzKX JaFQS9eEacNOgco4UjNAIz B90jhQPwe7C8OVVvvIofaRWgJbL eiBS8fM5cDDyboggui6qsezwwRr aqo2vitd00aA67Y17cVHnd XUSeTWXlQEEwJFDxrLhdaa2plI5 wIi8+YWAbaMA6rCE6mM2iPRQeXm N1TRcoY013CfSooANrXmnu g6bio5tgeTh8AwG4RTTakgYgiHt jAET3w5ZrTc21F76uWGigYVNcIY JoRPExDGXunRaypr0ltG2y Ii8+YXFjbUJ1mJE5bB8cRiVoTeR 7DIfeU120OfZghLUvQgelD83iT5 JvdXA+LPEyQtc6NZQcgWty FD8tfUTfTXhlTi9lUBO2MrGlEmC wXSrkU0RvGNFtxqypniqaaFI4EA WkSQQgtS88Dy1snZyzLQBz fAUEqU4hrkewm7whspbvDpDiMJS xSZv0UTe0VWMcrMxgIbPkEDD2Eq F1CQD3jNOkzB2agLwnkgqw rA0zH2TqTJCnrzorVv04yB0tDrD wHlG5NWzlDpb+MyTXHycpK8EDIU pHMfMXDNG1E3ShFop5BSOf oZemKR6atDZkNLgoPj0oxFjixIe hCL2oUXDnkzttFGDghZ7qSYKlgH SbyZojKS5xKHEcylebk775 NiFlGNS5DQWalFCqE7AdlA5fUiA uKCTqHDZiN9TtbMAdNBibN259HR cjQrX6TOVxsmWyD9UnLKKg nSwvXpI2n1A8Fv0dNT8oEl7jLKr 2TH65HI14qVZxp5O7vFZ0Y6OpPZ KqiuxurokkqCD3ODQtYHGb lY97wOXmYDknOz1kr1J7l659PYV bCAPihG74Au1qfPyvPBEnuZLDnD 1dawqqu6sstbmoLyWmYFLd HWe2ASj8YEGliGusZrBhEUM4FkE 4YFB7pZGgvB9qaYrzxmpcyB1eJq c+NeKgVAKpycM8R3WpFdj9 SBMglHylYW1qsOUnPLifPh3spNx xnVuiSJ0xNFGqrhyaDCCceA4pVV NshXQhlPtuRP4dALEntwea a495RxWkFRK5VNMokJMwR6OiaN4 mQqCgXCTfHZRuD3CrzNXmEJieW7 11AFebZoH0MTBiriOyI2Gz MXYgfTzaTsF8p4U9Ht3SPB7DEJX 5J8ZtGex0CDRhhNinBW8vyNGoMI dvKx9jiWddrUknNP7xUZTx avhnLWLodO1uGXVefARjaJcpDI2 xNCOinufka546RoGjICS2SEIzhQ EwO0KebI1kOkYsQERcOZXq M3KuvGEkMAamS859PSrzZdU0OFB wwwGsD7KnLANqoOhbDnY8q8V2Nf 5PUDwvdGQ+BR69nb60M8Pd QpobPbj3KRWqDQK9tIG3rY3yCVG bOBbfo1N3kSG9E2PoopQlnx5ja3 qoDNRkIEwhO53iiFBjd8F5 VBImxKK9XBXfsFrqVyGnhK94Kxe +IOPsmOkml0YhMtjav0cww1qpbL d7ZdOnXTRojdLfgKqdOCI1 l5FpCl58U28tJPimYLDbZEXhIKR wVIMuqSuwyn0cvM5fCr8+PGNvbC Y2rKT2dZ9nClTjFoV0HDjr B198VhTmaGWtEndap9kle6ygeUj 8HvUsNBDnurOyhSeuCTY7m6IsTf 81B8JemNdzm9RnKhk7ca28 iLRjt0B6sWJ3A3ByBNFmcnmvdSE ycYcpKI3uVGGsjbhdCFHqlF2rMZ LzU8p9CfQhCeB9EIutQ0Ub fjE5LXZwoDEdMBFpyCCLeY9gkbo in3vzkkldYqJcKWCuXYd1JXl3MH TrfZjfJdSgIED9MrL7RRJ0 jSUkgK0raQtliprvnZ7wZys+UGh 4f5ifxNLwTY5itQQ3EF28UT41gG Bcm6R3tMH6E3LpCRRspfac dsgfmFF5CTMsJWKraP48Ri9pnHd yTo1nTRYcIMB5QDEquPDcD8KapS 2jGxYzEURhMTTtW9YppGMl WQdrQ038BVmfAqQ7MGOogjFjY3D qCEFbzNyuDyV1g7M9Vc9VHF82CX 49AL66wHIze7R5wFD8D3Rg PQNuobqydkjfmYA4RZJcBUTwfB4 0Kk8zxSeaPy8fIWKhSZN5LCJztV HhC0VutY7vKiVeXNVyWKWc X6GhrHZqQSmoO689HVasSbK0IDL leaYwG4KmJDJeiSymGcJ4l4Q3Ox 0AUa22XI74GC20xYMvn5H1 wSP4T1CdEABthidkpilsiVD5LXJ xBBWctH17Cg9anEhfJu7lOWLwDL U7SVAfkOZjV1CszY6hNoFj SSYrPIHpX7OufYMfFRotN143XDr bKgD7AIRqenJaD0JmNHGwxKtlYd E8b6G7Ib7QBHbopcv6R9Cw PjwvdHI+SB96TABaOK61nYDjbAG qw2jweLx2IfVwSQLfHNC7gIxkEG zlp8AvRTQqP63qmXKre7M4 IGN (more content not included)... Normal [facility] XR Hip Complete Right w/ Pel vison [...] MD 01/08/24 3:46 pm Technologist: DARLEEN MALONE [facility] XR Sacrum/Coccyx Minimum 2 V [facility] 01-05-2024 XR Sacrum/Coccyx Minimum 2 Views EXAM: [...] MD 01/08/24 3:46 pm Technologist: DARLEEN MALONE [facility] XR Spine Lumbosacral Complet e w/ [...] MD 01/08/24 3:46 pm Technologist: DARLEEN MALONE [facility] Telemedicineon 08-23-2023 Telemedicine [id number] Lior Green in 1990 Date Provider Department Center 08/23/[address] [place] [address] No family history on file Level of Service:50694 [place] OFFICE/OUTPATIENT ESTABLISHED LOW MDM 20-29 MIN Normal [facility] 37on 07-11-2023 37 Follow-up with [facility] medicine as directed. Normal [facility] Telemedicineon 07-11-2023 Telemedicine [id number] Lior Green in 1990 Provider Department Center 07/11/2023 [facility] No family history on file Level of Service:67530 [place] OFFICE/OUTPATIENT ESTABLISHED SF MDM 10-19 MIN Reason for Visit and Comments: Headache [52] Normal [facility] HEPATITIS B SURFACE ANTIBODY QUANTon 09-01-2022 HEPATITIS B VIRUS SURFACE AB (MIU/ML) IN SERUM 3.83 mIU/mL Normal [facility] Comment on above: Result Comment: INTE RPRETATION: NONREACTIVE<8.00 mIU/mL INDETERMINATE8.00 - 12.00 mIU/mL REACTIVE>12 mIU/mL Performed By: #### L [id number] #### [facility] ([facility]AK[facility]) [address] [place] [address] T-Spoton 10-18-2021 T-Spot. TB Test Normal [facility] Comment on above: Result Comment: [employer] [address] [place] [id number] (NOTE) T-SPOT.TB Test Results --------- T-SPOT TB [...] R UBI, FANG, JAGDEEP, VZI, TSPOT #### [place] [id number] Chief Maintenance Supervisor: Isreal Astorga MD Measles (Rubeola) Imon 10-15 Measles (Rubeola) Im 6.05 Normal >1.09 [facility] Comment on above: Result Comment: Interpretation: IMMUNE Reference Range: <0.91 Not Immune 0.91-1.09 Equivocal >1.09 Immune Performed By: #### R UBI, FANG, JAGDEEP, VZI, TSPOT #### [place] [id number] Chief Maintenance Supervisor: Isreal Astorga MD Mumps,Immun,Abon 10-15-2021 Mumps,Immun,Ab 5.42 Normal >1.09 [facility] Comment on above: Result Comment: Interpretation: IMMUNE Reference Range: <0.91 Not Immune 0.91-1.09 Equivocal >1.09 Immune Performed By: #### R UBI, FANG, JAGDEEP, VZI, TSPOT #### [place] [id number] Chief Maintenance Supervisor: Isreal Astorga MD VZ Immunityon 10-15-2021 VZ Immunity 2.55 Normal >1.09 [facility] Comment on above: Result Comment: Interpretation: IMMUNE Reference Range: <0.91 Not Immune 0.91-1.09 Equivocal >1.09 Immune Performed By: #### R UBI, FANG, JAGDEEP, VZI, TSPOT #### [facility] [place], [place] [id number] Chief Maintenance Supervisor: Isreal Astorga MD Rubella Ab, IgGon 10-14-2021 Rubella Ab, IgG 279.3 IU/mL Normal [facility] Comment on above: Result Comment: REFERENCE RANGE: <5.0 NON-REACTIVE (non-immune) 5.0 TO 9.9 EQUIVOCAL >=10.0 REACTIVE (immune) Performed By: #### R UBI, FANG, JAGDEEP, VZI, TSPOT #### [facility] [email or web address] [address] [place] [id number] Chief Maintenance Supervisor: Isreal Astorga MD Basic Metabolic Panelon 0 Anion gap [Moles/Vol] 11 mmol/L 9 - 17 mmol/L [place], [place] Bun/Cre Ratio NOT REPORTED [place], [place] Calcium [Mass/Vol] 8.7 mg/dL 8.6 - 10. 4 mg/dL [place] Chloride [Moles/Vol] 107 mmol/L 98 - 10 7 mmol/L [place] CO2 [Moles/Vol] 23 mmol/L 20 - 31 mmol/L [place] Creatinine [Mass/Vol] 0.59 mg/dL 0.5 - 0.9 mg/dL [place] GFR >60 >60 mL/min [place] GFR Non- >60 >60 mL/min [place] GFR/1.73 sq M predicted among non-blacks MDRD (S/P/Bld) [Vol rate/Area] [place] Comment on above: Average GFR for 30-3 9 years old: 107 mL/min/1.73sq m Chronic Kidney Disease: <60 mL/min/1.73sq m Kidney failure: <15 mL/min/1.73sq m eGFR calculated using average adult body mass. Additional eGFR calculator available at: http://www.Manzama.RealDeck/multiple_crcl_2012.htm GFR/1.73 sq M predicted among non-blacks MDRD (S/P/Bld) [Vol rate/Area] NOT REPORTED [place] Glucose [Mass/Vol] 91 mg/dL 70 - 99 mg/dL [place] Potassium [Moles/Vol] 4.1 mmol/L 3.7 - 5.3 mmol/L [place] Sodium [Moles/Vol] 141 mmol/L 135 - 144 mmol/L [place] Urea nitrogen [Mass/Vol] 10 mg/dL 6 - 20 mg/dL [place] CBC Auto Differentialon Basophils (Bld) [#/Vol] 0.03 10*3/uL [place] Basophils/100 WBC (Bld) 1 % 0 - 2 % [place] Differential Type NOT REPORTED [place] Eosinophils (Bld) [#/Vol] 0.15 10*3/uL [place] Eosinophils/100 WBC (Bld) 3 % 1 - 4 % [place] Erythrocyte distribution width (RBC) [Ratio] 12.4 % 11.8 - 14.4 % [place] Hematocrit (Bld) [Volume fraction] 41.3 % 36.3 - 47.1 % [place] Hemoglobin (Bld) [Mass/Vol] 13.3 g/dL 11.9 - 15.1 g/dL [place] Immature granulocytes (Bld) [#/Vol] 10*3/uL [place] Immature granulocytes (Bld) [#/Vol] 0 % 0 [place] Lymphocytes (Bld) [#/Vol] 1.91 10*3/uL [place] Lymphocytes/100 WBC (Bld) 39 % 24 - 43 % [place] MCH (RBC) [Entitic mass] 29.7 pg 25.2 - 33.5 pg [place] MCHC (RBC) [Mass/Vol] 32.2 g/dL 28.4 - 34.8 g/dL [place] MCV (RBC) [Entitic vol] 92.2 fL 82.6 - 102.9 fL [place] Monocytes (Bld) [#/Vol] 0.46 10*3/uL [place] Monocytes/100 WBC (Bld) 10 % 3 - 12 % [place] Platelet mean volume (Bld) [Entitic vol] 10.7 fL 8.1 - 13.5 fL [place] Platelets (Bld) [#/Vol] NOT REPORTED [place] Platelets (Bld) [#/Vol] 246 10*3/uL [place] RBC (Bld) [#/Vol] 4.48 10*6/uL 3.95 - 5.11 m/uL [place] RBC morphology finding Nom (Bld) NOT REPORTED [place] Segmented neutrophils/100 WBC (Bld) 47 % 36 - 65 % [place] Segs Absolute 2.29 [place] WBC (Bld) [#/Vol] 0.0 10*3/uL 0.0 per 100 WBC [place] WBC (Bld) [#/Vol] 4.9 10*3/uL [place] WBC Morphology NOT REPORTED [place] Iron And TIBCon 05-31-2019 Iron [Mass/Vol] 92 ug/dL 37 - 145 ug/dL [place] Iron Saturation 38 % 20 - 55 % [place] TIBC 243 ug/dL Low 250 - 450 ug/dL [place] UIBC 151 ug/dL 112 - 347 ug/dL [place] Otheron 05-31-2019 Interpretation and review of laboratory results Abnormal [place] Vitamin D 25 Hydroxyon 05-31 Vit D, 25-Hydroxy 20.9 ng/mL Low 30 - 100 ng/mL [place] Comment on above: Reference Range: Vitamin D status Range Deficiency <20 ng/mL Mild Deficiency 20-30 ng/mL Sufficiency 30-100 ng/mL Toxicity >100 ng/mL Vital Signs Date Time Vital Sign Value Performing Clinician Facility 11-21-2024 11:58-0500 Body mass index (BMI) [Ratio] 40.32 kg/m2 Catrachito Attila DO Work Phone: [facility] 11-21-2024 11:58-0500 Body weight 113.31 kg Catrachito Attila DO Work Phone: [facility] 11-21-2024 11:58-0500 Diastolic blood pressure 70 mm[Hg] Catrachito Attila DO Work Phone: [facility] 11-21-2024 11:58-0500 Systolic blood pressure 110 mm[Hg] Catrachito Attila DO Work Phone: [facility] 11-07-2024 13:51-0500 Body mass index (BMI) [Ratio] 40.03 kg/m2 Catrachito Attila DO Work Phone: [facility] 11-07-2024 13:51-0500 Body weight 112.49 kg Catrachito Attila DO Work Phone: [facility] 11-07-2024 13:51-0500 Diastolic blood pressure 72 mm[Hg] Catrachito Attila DO Work Phone: [facility] 11-07-2024 13:51-0500 Systolic blood pressure 120 mm[Hg] Catrachito Attila DO Work Phone: [facility] 10-01-2024 10:38-0500 Body mass index (BMI) [Ratio] 39.19 kg/m2 Catrachito Attila DO Work Phone: [facility] 10-01-2024 10:38-0500 Body weight 110.13 kg Catrachito Attila DO Work Phone: [facility] 10-01-2024 10:38-0500 Diastolic blood pressure 68 mm[Hg] Catrachito Attila DO Work Phone: [facility] 10-01-2024 10:38-0500 Systolic blood pressure 108 mm[Hg] Catrachito Attila DO Work Phone: [facility] 09-04-2024 10:33-0500 Body mass index (BMI) [Ratio] 37.92 kg/m2 Christen Reid MD Work Phone: [facility] 09-04-2024 10:33-0500 Body weight 109.86 kg Christen Reid MD Work Phone: [facility] 09-04-2024 10:33-0500 Diastolic blood pressure 69 mm[Hg] Christen Reid MD Work Phone: [facility] 09-04-2024 10:33-0500 Heart rate 84 /min Christen Reid MD Work Phone: [facility] 09-04-2024 10:33-0500 Systolic blood pressure 105 mm[Hg] Christen Reid MD Work Phone: [facility] 08-12-2024 14:16-0500 Body mass index (BMI) [Ratio] 38.58 kg/m2 Genevieve SOLITARIO Work Phone: [facility] 08-12-2024 14:16-0500 Body weight 108.41 kg Genevieve SOLITARIO Work Phone: [facility] 08-12-2024 14:16-0500 Diastolic blood pressure 72 mm[Hg] Genevieve SOLITARIO Work Phone: [facility] 08-12-2024 14:16-0500 Systolic blood pressure 120 mm[Hg] Genevieve SOLITARIO Work Phone: [facility] 07-16-2024 11:31-0400 Body mass index (BMI) [Ratio] 38.54 kg/m2 Catrachito Attila DO Work Phone: [facility] 07-16-2024 11:31-0400 Body weight 108.32 kg Catrachito Attila DO Work Phone: [facility] 07-16-2024 11:31-0400 Diastolic blood pressure 64 mm[Hg] Catrachito Attlia DO Work Phone: [facility] 07-16-2024 11:31-0400 Systolic blood pressure 110 mm[Hg] Catrachito Attila DO Work Phone: [facility] 07-05-2024 11:45-0400 Body height 170.2 cm Mishel Segovia MD Work Phone: [facility] 07-05-2024 11:45-0400 Body mass index (BMI) [Ratio] 36.83 kg/m2 Mishel Segovia MD Work Phone: [facility] 07-05-2024 11:45-0400 Body weight 106.69 kg Mishel Segovia MD Work Phone: [facility] 07-05-2024 11:45-0400 Diastolic blood pressure 69 mm[Hg] Mishel Segovia MD Work Phone: [facility] 07-05-2024 11:45-0400 Heart rate 86 /min Mishel Segovia MD Work Phone: [facility] 07-05-2024 11:45-0400 Systolic blood pressure 128 mm[Hg] Mishel Segovia MD Work Phone: [facility] 06-17-2024 11:46-0400 Body mass index (BMI) [Ratio] 37.9 kg/m2 Catrachito Attila DO Work Phone: [facility] 06-17-2024 11:46-0400 Body weight 106.5 kg Catrachito Attila DO Work Phone: [facility] 06-17-2024 11:46-0400 Diastolic blood pressure 78 mm[Hg] Catrachito Attila DO Work Phone: [facility] 06-17-2024 11:46-0400 Systolic blood pressure 116 mm[Hg] Catrachito Attila DO Work Phone: [facility] 05-31-2024 11:30-0400 Body mass index (BMI) [Ratio] 36.74 kg/m2 Lexi Robertson MD Work Phone: [facility] 05-31-2024 11:30-0400 Body weight 106.41 kg Lexi Robertson MD Work Phone: [facility] 05-23-2024 15:41-0400 Body mass index (BMI) [Ratio] 41.48 kg/m2 Sandrita Bowers CN Work Phone: [facility] 05-23-2024 15:41-0400 Body weight 116.57 kg Sandrita Bowers CN Work Phone: [facility] 04-29-2024 13:25-0400 Diastolic blood pressure 82 mm[Hg] [facility] 04-29-2024 13:25-0400 Heart rate 80 /min [facility] 04-29-2024 13:25-0400 Respiratory rate 16 /min [facility] 04-29-2024 13:25-0400 SaO2% (BldA) [Mass fraction] 99 % [facility] 04-29-2024 13:25-0400 Systolic blood pressure 145 mm[Hg] [facility] 04-29-2024 10:53-0400 Body temperature 97.4 [degF] [facility] 04-29-2024 10:28-0400 Inhaled oxygen flow rate 2 L/min [facility] 04-29-2024 06:46-0400 Body height 170.18 cm [facility] 04-29-2024 06:46-0400 Body mass index (BMI) [Ratio] 37.6 kg/m2 [facility] 04-29-2024 06:46-0400 Body weight 109 kg [facility] 04-19-2024 09:11-0400 Body height 172.72 cm [facility] 04-19-2024 09:11-0400 Body mass index (BMI) [Ratio] 35.9 kg/m2 [facility] 04-19-2024 09:11-0400 Body weight 107 kg [facility] 02-15-2024 11:55-0400 Body height 172.72 cm [facility] 02-15-2024 11:55-0400 Body mass index (BMI) [Ratio] 36.1 kg/m2 [facility] 02-15-2024 [id number] Body weight 107.95 kg [facility] Encounters Encounter Date Encounter Type Care Provider Facility Start: 11-21-2024 End: 11-21-2024 Bamboo flowsheet Catrachito Attila DO Work Phone: [facility] Start: 11-21-2024 End: 11-21-2024 Bamboo flowsheet Catrachito Attila DO Work Phone: [facility] Start: 11-21-2024 End: 11-21-2024 Clinisync Result Encounter Catrachito Attila DO Work Phone: [facility] Unsolicited Start: 11-21-2024 End: 11-21-2024 flow sheet Catrachito Attila DO Work Phone: [facility] Comment on above: 32 weeks gestation o f ; Third trimester ; with IUD in place, antepartum, first trimester Start: 11-21-2024 End: 11-21-2024 ambulatory CATRACHITO ATTILA Not Available Start: 11-07-2024 End: 11-07-2024 ambulatory CATRACHITO ATTILA Not Available Start: 11-07-2024 End: 11-07-2024 flow sheet Catrachito Attila DO Work Phone: [facility] Comment on above: Third trimester preg dami; 30 weeks gestation of ; with IUD in place, antepartum, first trimester Start: 11-06-2024 ambulatory None Provider Facility: [facility] Start: 10-25-2024 End: 10-25-2024 Clinisync Result Encounter Catrachito Attila DO Work Phone: [facility] Unsolicited Start: 10-25-2024 End: 10-25-2024 Clinisync Result Encounter Catrachito Attila DO Work Phone: [facility] Unsolicited Start: 10-15-2024 End: 10-15-2024 ambulatory CATRACHITO R ATTILA [facility] Start: 10-01-2024 End: 10-01-2024 Bamboo flowsheet Catrachito Attila DO Work Phone: [facility] Start: 10-01-2024 End: 10-01-2024 Bamboo flowsheet Catrachito Attila DO Work Phone: [facility] Start: 10-01-2024 End: 10-01-2024 flow sheet Catrachito Attila DO Work Phone: [facility] Comment on above: Second trimester pre gnancy; 25 weeks gestation of ; with normal glucose tolerance test (GTT); Diabetes mellitus screening; Retained intrauterine device (IUD) during in second trimester Start: 10-01-2024 End: 10-01-2024 ambulatory CATRACHITO AIKEN Not Available Start: 09-04-2024 End: 09-04-2024 Office outpatient visit 25 minutes Lexi Robertson MD Work Phone: [facility] Comment on above: 21 weeks gestation o f (Primary Dx); Retained intrauterine device (IUD) during in second trimester; History of gastric bypass; Obesity affecting in second trimester, unspecified obesity type; with history of section, antepartum; Multigravida of advanced maternal age in second trimester Start: 09-04-2024 End: 09-04-[address] [facility] Comment on above: 21 weeks gestation o f (Primary Dx); Retained intrauterine device (IUD) during in second trimester; History of gastric bypass; Multigravida of advanced maternal age in second trimester Start: 08-12-2024 End: 08-12-2024 Bamboo flowsheet Genevieve SOLITARIO Work Phone: [facility] Start: 08-12-2024 End: 08-14-2024 Clinisync Result Encounter Genevieve SOLITARIO Work Phone: [facility] Unsolicited Start: 08-12-2024 End: 08-14-2024 Clinisync Result Encounter Genevieve SOLITARIO Work Phone: [facility] Unsolicited Start: 08-12-2024 End: 08-12-2024 flow sheet Genevieve SOLITARIO Work Phone: [facility] Comment on above: Exposure to STD; Need for maternal serum alpha-protein (MSAFP) screening; Screening, , for anatomic survey; Second trimester ; 18 weeks gestation of Start: 08-12-2024 End: 08-12-2024 ambulatory GENEVIEVE DONOVAN Not Available Start: 07-17-2024 End: 07-17-2024 ambulatory NON STAFF [facility] Work Phone: Start: 07-17-2024 End: 07-17-2024 Patient encounter procedure [facility] Work Phone: Start: 07-16-2024 End: 07-16-2024 [...] Second trimester Start: 07-10-2024 End: 07-10-[address] Start: 07-08-2024 End: 07-08-2024 Orders Only Not In System Ref Prov [facility] Start: 07-05-2024 End: 07-05-2024 Office outpatient visit 40 minutes Mishel Segovia MD Work Phone: [facility] Comment on above: Retained intrauterin e device [...] weeks gestation of Start: 07-05-2024 End: 07-05-2024 ambulatory CATRACHITO R ATTILA [facility] Comment on above: Retained intrauterin e device [...] trimester Start: 06-17-2024 End: 06-17-2024 ambulatory CATRACHITO MUNROEO Not Available Start: 06-11-2024 End: 06-11-2024 ambulatory NON STAFF [facility] Work Phone: Start: 06-11-2024 End: 06-11-2024 Patient encounter procedure MD Santa Estrada II Work Phone: [facility] Work Phone: Start: 05-31-2024 End: 05-31-2024 Office consultation new/estab patient 60 min Lexi Robretson MD Work Phone: [facility] Comment on above: Retained intrauterin e device (IUD) during in first trimester (Primary Dx) Start: 05-31-2024 End: 05-31-[address] [facility] Comment on above: Retained intrauterin e device (IUD) during in first trimester (Primary Dx) Start: 05-29-2024 End: 05-29-2024 Chart abstracting Lexi Robertson MD Work Phone: [facility] Start: 05-23-2024 End: 05-23-2024 ambulatory SANDRITA L [...] OB Start: 05-22-2024 End: 05-22-2024 Telephone encounter Sandrita L Floro CNM Work Phone: [facility] Start: 05-15-2024 End: 05-15-2024 ambulatory NON STAFF [facility] Work Phone: Start: 05-15-2024 End: 05-15-2024 Patient encounter procedure [facility] Work Phone: Start: 04-29-2024 Non-patient / Non-visit [facility] Work Phone: Start: 04-29-2024 End: 04-29-2024 Admission to same day surgery center [facility] [place] Start: 04-29-2024 End: 04-29-2024 ambulatory NON STAFF [facility] Work Phone: Start: 04-25-2024 End: 04-25-2024 ambulatory SANDRITA L FLORO Not Available Start: 04-19-2024 End: 04-19-2024 ambulatory NON STAFF [facility] Work Phone: Start: 04-19-2024 End: 04-19-2024 [facility] Work Phone: Start: 04-19-2024 End: 04-19-2024 Discharged Recurring MD Santa Estrada II Work Phone: [facility] [place] Start: 04-19-2024 Registered Recurring [facility] [place] Start: 04-19-2024 End: 04-19-2024 ambulatory NON STAFF [facility] Work Phone: Start: 04-19-2024 End: 04-19-2024 Patient encounter procedure [facility] Work Phone: Start: 04-16-2024 End: 04-16-2024 ambulatory SANDRITA L FLORO Not Available Start: 04-15-2024 End: 04-15-2024 Patient encounter procedure [facility] Work Phone: Start: 04-15-2024 End: 04-15-2024 ambulatory NON STAFF [facility] Work Phone: Start: 03-13-2024 End: 03-13-2024 ambulatory Peter Booth Facility:[facility] Start: 03-12-2024 End: 03-12-2024 Patient encounter procedure [facility] [place] Work Phone: Start: 03-12-2024 End: 03-12-2024 ambulatory NON STAFF [facility] Work Phone: Start: 02-29-2024 End: 02-29-2024 ambulatory [facility] Start: 02-27-2024 End: 02-27-2024 ambulatory NON STAFF [facility] Work Phone: Start: 02-27-2024 End: 02-27-2024 Departed Referred [facility] Start: 02-26-2024 End: 02-27-2024 ambulatory Peter Booth Facility:[facility] Start: 02-15-2024 End: 02-15-2024 ambulatory NON STAFF [facility] Work Phone: Start: 02-15-2024 End: 02-15-2024 Patient encounter procedure [facility] Work Phone: Start: 02-01-2024 End: 02-01-2024 ambulatory VICTOR M LUJAN Not Available Start: 01-25-2024 End: 01-26-2024 ambulatory Audra Reynoso DIRECTOR OF QUALITY-CLIENT SERVICE ADMINISTRATOR Facility:[facility] Start: 01-12-2024 End: 01-13-2024 ambulatory Alec Patel MD Facility:[facility] Start: 01-05-2024 End: 01-06-2024 ambulatory Audra Reynoso DIRECTOR OF QUALITY-CLIENT SERVICE ADMINISTRATOR Facility:[facility] Start: 12-15-2023 End: 12-15-2023 ambulatory VICTOR M LUJAN Not Available Start: 08-23-2023 End: 08-23-[address] [facility] Start: 07-11-2023 End: 07-11-[address] [facility] Start: 09-01-2022 End: 09-01-[address] [facility] Start: 09-01-2022 End: 09-01-2022 Encounter for antibody response examination [facility] Start: 10-14-2021 End: 10-15-2021 ambulatory [facility] Start: 10-13-2021 ambulatory [facility] Start: 04-02-2020 End: 04-02-2020 Subsequent hospital visit by physician Yesica MILLER [facility] Start: 05-31-2019 End: 05-31-2019 Subsequent hospital visit by physician Yesica PITTMAN Comment on above: History of bariatric surgery; Health care maintenance Procedures Date Procedure Procedure Detail Performing Clinician Start: 11-21-2024 US OB BPP W NON-STRESS Catrachito Attila DO Work Phone: Start: 11-21-2024 US OB GROWTH Catrachito Fazi o DO Work Phone: Start: 11-21-2024 AMNISURE Catrachito Fazi o DO Work Phone: Start: 11-21-2024 Urnls dip stick/tabl et rgnt non-auto w/o micrscp Catrachito Attila DO Work Phone: Start: 11-07-2024 Urnls dip stick/tabl et rgnt non-auto w/o micrscp Catrachito Attila DO Work Phone: Start: 10-25-2024 ALL CBC WITH AUTO DIFF Catrachito Attila DO Work Phone: Start: 10-01-2024 Urnls dip stick/tabl et rgnt [...] Urine test visual color cmprsn meths Sandrita Joseo CNM Work Phone: Start: 04-29-2024 X-ray of left knee Start: 04-29-2024 Arthroplasty of knee , condyle and plateau, medial compartment Start: 04-19-2024 Plain X-ray of left femur Start: 04-19-2024 Plain X-ray of left tibia and left fibula Start: 04-16-2024 Microscopic observat ion [Identifier] in Cervix by Cyto stain Genevieve SOLITARIO Work Phone: Start: 04-16-2024 Cytp cerv/vag auto t hin layer prep mnl screen Sandrita Romelia Joseo CNM Work Phone: Start: 04-15-2024 Antibody screen Comment on above: Order Comment: Date of Surgery: [id number] Result Comment: PERF ORMED BY: [facility] [address] [place] [address] PATHOLOGIST REGULATORY AND COMPLIANCE TECHNICIAN GENO BENEDICT M.D. Start: 03-12-2024 Methicillin resistan t Staphylococcus aureus culture Start: 02-15-2024 Pelvis X-ray Start: 02-15-2024 Radiologic examinati on of knee Start: 05-31-2019 25 hydroxy includes fractions if performed Yesica Jensen Winslow Work Phone: Start: 05-31-2019 Basic metabolic pane l calcium total Yesica Khan Work Phone: Start: 05-31-2019 Blood count complete auto&auto difrntl wbc Yesica Jensen Bill Work Phone: Start: 05-31-2019 Iron binding capacity J barrie Jensen Winslow Work Phone: H/O: section History of 2 sections Mishel Segovia MD Work Phone: History of operative procedure on knee History of knee replacement, unspecified laterality Mishel Segovia MD Work Phone: Plan of Treatment Date Care Activity Detail Author Start: 03-14-2034 DTaP,Tdap and Td Vac cines (3 - Td or Tdap) DTaP,Tdap and Td Vaccines (3 - T[facility] Start: 04-16-2029 Screening for malign ant neoplasm of cervix [facility] Start: 04-16-2027 Screening for malign ant neoplasm of cervix Pap Smear [facility] Start: 09-04-2025 Adult BMI Screening Adult [facility] Screen ing [facility] Start: 09-04-2025 Tobacco Screening [facility]ening [facility] Start: 09-04-2025 End: 09-04-2025 US MFM with or without consult US MFM with or without consult Imaging Routine 21 weeks gestation of Retained intrauterine device (IUD) during in second trimester History of gastric bypass Multigravida of advanced maternal age in second trimester Expected: 09/04/2025 (Approximate), Expires: 09/04/2025 [facility] Work Phone: Comment on above: Expected: 09/04/2025 (Approximate), Expires: 09/04/2025 Start: 07-05-2025 Adult BMI Screening Adult BMI Screen ing [facility] Start: 07-05-2025 Tobacco Screening [facility] Start: 07-05-2025 End: 07-05-2025 US MFM with or without consult US MFM with or without consult Imaging Routine Retained intrauterine device (IUD) during in second trimester BMI 36.0-36.9,adult Multigravida of advanced maternal age in second trimester Expected: 07/05/2025 (Approximate), Expires: [facility]05/20[facility] Work Phone: Comment on above: Expected: 07/05/2025 (Approximate), Expires: 07/05/2025 Start: 05-31-2025 Adult BMI Screening Adult BMI Screen ing [facility] [employer] Start: 05-31-2025 End: 05-31-2025 US MFM with or without consult US MFM with or without consult Imaging Routine Retained intrauterine device (IUD) during in first trimester Expected: 05/31/2025 (Approximate), Expires: 05/31/2025 [facility] Work Phone: Comment on above: Expected: 05/31/2025 (Approximate), Expires: 05/31/2025 Start: 12-12-2024 End: 12-12-2024 Patient encounter procedure 12/12/2024 10:20 AM EDT Routine [facility] [address] [place] [id number] Genevieve Donovan PA [address] [place] [address] [facility] Start: 11-21-2024 End: 11-21-2025 US for US OB follow up transabdominal approach Imaging Routine with IUD in place, antepartum, first trimester Expected: 11/21/2024, Expires: 11/21/2025 [facility] Work Phone: Comment on above: Expected: 11/21/2024 , Expires: 11/21/2025 Start: 11-21-2024 End: 11-21-2024 Patient encounter procedure [facility] Comment on above: Arrived Start: 11-07-2024 End: 11-07-2025 US biophysical profile w non stress test US biophysical profile w non stress test Imaging Routine with IUD in place, antepartum, first trimester Expected: 11/07/2024 (Approximate), Expires: 11/07/2025 [facility] Work Phone: Comment on above: Expected: 11/07/2024 (Approximate), Expires: 11/07/2025 Start: 11-07-2024 End: 11-07-2024 Patient encounter procedure 11/07/2024 10:50 AM EST Routine [facility] [address] [place] [id number] Catrachito Aiken DO [address] [place], [place] [id number] [facility] Start: 10-31-2024 End: 10-31-2024 Patient encounter procedure 10/31/2024 8:30 AM EST Routine [facility] [address] [place] [id number] Genevieve Donovan PA [address] [place] [address] [facility] Start: 10-15-2024 End: 10-15-2024 Patient encounter procedure 10/15/2024 10:00 AM EST Appointment [place] [facility] [address] [place] [address] [facility] Start: 10-01-2024 End: 10-01-2025 CBC panel - Blood by Automated count CBC Lab Routine Diabetes mellitus screening Expected: 10/01/2024 (Approximate), Expires: 10/01/2025 [facility] Work Phone: Comment on above: Expected: 10/01/2024 (Approximate), Expires: 10/01/2025 Start: 10-01-2024 End: 10-01-2024 Patient encounter procedure 10/01/2024 9:50 AM EST Routine [facility] [address] [place] [phone] Catrachito Aiken, DO [address] [place] [address] Arrived [facility] Comment on above: Arrived Start: 09-11-2024 End: 09-11-2024 Alpha fetoprotein, maternal Alpha fetoprotein, maternal Lab Routine Need for maternal serum alpha-protein (MSAFP) screening Expected: 09/11/2024 (Approximate), Expires: 09/11/2024 [facility] Comment on above: Expected: 09/11/2024 (Approximate), Expires: 09/11/2024 Start: 09-09-2024 End: 09-09-2024 Patient encounter procedure 09/09/2024 2:00 PM EST Routine [facility] [address] [place] [phone] Catrachito Aiken, DO [address] [place] [address] [facility] Start: 09-04-2024 Adult BMI Screening Adult BMI Screen ing [facility] Start: 09-04-2024 Tobacco Screening Tobacco Screening [facility] Start: 08-20-2024 End: 08-20-2024 Patient encounter procedure [facility] Start: 08-14-2024 End: 08-14-2024 Patient encounter procedure 08/14/2024 1:30 PM EST Routine [facility] [address] [place] [phone] Genevieve Donovan PA [address] [place] [address] [facility] Start: 07-16-2024 End: 07-16-2024 Patient encounter procedure 07/16/2024 11:10 AM EDT Routine [facility] [address] [place] [id number] Catrachito Aiken DO [address] [facility] [address] [place] [place] [address] [facility] Start: 07-05-2024 End: 07-05-2024 Patient encounter procedure [facility] Start: 06-21-2024 End: 06-21-2024 Professional / ancillary services management 06/21/2024 10:30 AM EDT Ancillary Procedure [facility] [address] [place] [phone] [facility] Start: 06-18-2024 End: 06-18-2024 Patient encounter procedure 06/18/2024 2:00 PM EDT Office Visit [facility] [address] [place] [phone] Sandrita Bowers CN [address] [place], [place] [id number] [facility] Start: 06-17-2024 End: 06-17-2025 ABO/Rh ABO/Rh Lab Routine Missed menses Expected: 06/17/2024 (Approximate), Expires: 06/17/2025 [facility] Comment on above: Expected: 06/17/2024 [...] Missed menses Expected: 06/17/2024 (Approximate), Expires: 06/17/2025 [facility] Work Phone: Comment on above: Expected: 06/17/2024 (Approximate), Expires: 06/17/2025 Start: 06-17-2024 End: 06-17-2025 CBC W Auto Differential panel - Blood [facility] Comment on above: Ordered: 06/17/2024 Expected: 06/17/2024 (Approximate), Expires: 06/17/2025 Start: 06-17-2024 End: 06-17-2025 Creatinine [Mass/volume] in Serum or Plasma Creatinine Lab Routine Multigravida of advanced maternal age in first trimester Expected: 06/17/2024 (Approximate), Expires: 06/17/2025 [facility] Comment on above: Expected: 06/17/2024 (Approximate), Expires: 06/17/2025 Start: 06-17-2024 End: 06-17-2025 Drugs of abuse panel - Urine by Screen method Rapid drug screen, urine Lab Routine Missed menses Encounter for supervision of normal first in first trimester , unspecified gestational age Expected: 06/17/2024 (Approximate), Expires: 06/17/2025 [facility] Comment on above: Expected: 06/17/2024 (Approximate), Expires: 06/17/2025 Start: 06-17-2024 End: 06-17-2025 Lactate dehydrogenase [Enzymatic activity/volume] in Serum or Plasma by Lactate to pyruvate reaction Lactate dehydrogenase Lab Routine Multigravida of advanced maternal age in first trimester Expected: 06/17/2024, Expires: 06/17/2025 [facility] Comment on above: Expected: 06/17/2024 , Expires: [...] in first trimester Expected: 06/17/2024, Expires: 06/17/2025 [facility] Comment on above: Expected: 06/17/2024 , Expires: 06/17/2025 Start: 06-17-2024 End: 06-17-2025 Urate [Mass/volume] in Serum or Plasma Uric acid Lab Routine Multigravida of advanced maternal age in first trimester Expected: 06/17/2024 (Approximate), Expires: 06/17/2025 [facility] Comment on above: Expected: 06/17/2024 (Approximate), Expires: 06/17/2025 Start: 06-17-2024 End: 06-17-2025 Urea nitrogen [Mass/volume] in Serum or Plasma BUN Lab Routine Multigravida of advanced maternal age in first trimester Expected: 06/17/2024, Expires: 06/17/2025 [facility] Comment on above: Expected: 06/17/2024 , Expires: 06/17/2025 Start: 06-17-2024 End: 06-17-2025 US Pelvis transvaginal US OB transvaginal Imaging Routine complicated by intrauterine device (IUD) Expected: 06/17/2024 (Approximate), Expires: 06/17/2025 [facility] Comment on above: Expected: 06/17/2024 (Approximate), Expires: 06/17/2025 Start: 06-17-2024 End: 06-17-2024 Patient encounter procedure 06/17/2024 10:50 AM EDT Routine [facility] [address] [place] [address] Catrachito Aiken, [address] [facility] [address] [place] [address] Arrived [facility] Comment on above: Arrived Start: 06-11-2024 X-ray of left knee XR knee LT 3V - NOT FOR ER USE [facility] Start: 06-11-2024 XR Knee - left 3 Views [facility] Start: 05-31-2024 End: 05-31-2024 Patient encounter procedure [facility] Start: 05-26-2024 COVID-19 Vaccine ( season) COVID-19 Vaccine ( season) [facility] Start: 05-26-2024 COVID-19 Vaccine ( season) COVID-19 Vaccine () [facility] Start: 05-26-2024 Influenza vaccination [facility] Start: 05-23-2024 End: 05-23-2024 Professional / ancillary services management 05/23/2024 3:45 PM EDT Ancillary Procedure [facility] [address] [phone] [facility] Start: 05-23-2024 End: 05-23-2024 ambulatory 05/23/2024 3:30 PM EDT Initial [facility] [address] [place] [phone] Sandrita Bowers, PREM [address] [place], [place] [phone] Arrived [facility] Comment on above: Arrived Start: 04-29-2024 Hospital admission [facility] Start: 04-29-2024 End: 04-29-2024 [facility] Start: 02-15-2024 Pelvis X-ray XR pelvis 1-2V [facility] Start: 02-15-2024 Radiologic examinati on of knee XR knee LT 4V* [facility] Start: 02-15-2024 XR Knee - left 4 Views [facility] Start: 02-15-2024 XR Pelvis 1 or 2 Views [facility] Start: 07-02-2022 DTaP/Tdap/Td vaccine (2 - Td) DTaP/Tdap/Td vaccine (2 - Td) [place] Start: 05-26-2020 Influenza vaccination Flu vaccine (# 1) [place] Start: 04-21-2020 End: 04-21-2020 Office Visit 04/21/2020 Office Visit Obstetrics and Gynecology Karel Palm DO [address] [place] [phone] [facility] research anthropologist [place] Start: 05-26-2019 Influenza vaccination Flu vaccine (# 1) [place] Start: 2018 Screening for malign ant neoplasm of cervix [facility] Start: 2009 Cervical cancer screen Cervical canc er screen [place], [place] Start: 2009 Screening for malign ant neoplasm of cervix [facility] Start: 2007 DTaP/Tdap/Td vaccine (1 - Tdap) DTaP/Tdap/Td vaccine (1 - Tdap) [place] Start: 2006 Adult BMI Follow Up Plan Adult BMI Follow Up Plan [facility] Start: 2003 HIV screen HIV screen [place], [place] Start: 2003 [facility] [place] [place] Start: 2001 Varicella Vaccine (1 of 2 - 13+ 2-dose series) Varicella Vaccine (1 of 2 - 13+ 2-dose series) [place] Start: 2000 Depression Screening Depression Scre ening [facility] Start: 1989 Varicella vaccine (1 of 2 - 2-dose childhood series) Varicella vaccine (1 of 2 - 2-dose childhood series) [place] Bacteria identified in Urine by Culture Urine culture Microbiology Routine Missed menses Ordered: 06/17/2024 [facility] Comment on above: Ordered: 06/17/2024 CHLAMYDIA TRACHOMATI S (GENITO/STI) CHLAMYDIA TRACHOMATIS (GENITO/STI) Lab Routine Exposure to STD Ordered: 08/12/2024 [facility] Comment on above: Ordered: 08/12/2024 End: 05-31-2019 Cobalamin (Vitamin B12) [Mass/Vol] Vitamin B12 Lab Routine History of bariatric surgery 1 Occurrences starting 05/31/2019 until 05/31/2019 [place] Comment on above: 1 Occurrences starti ng 05/31/2019 until 05/31/2019 Cobalamin (Vitamin B 12) [Mass/Vol] Vitamin B12 Lab Routine History of bariatric surgery 05/31/2019 8:42 AM EDT [place] Cotinine [Mass/volum e] in Serum or Plasma [facility] Cotinine [Mass/volum e] in Serum or Plasma [facility] End: 04-02-2020 Covid-19 Ambulatory Covid-19 Ambulatory Lab Routine Once for 1 Occurrences starting 04/02/2020 until 04/02/2020 [place] Comment on above: Once for 1 Occurrenc es starting 04/02/2020 until 04/02/2020 Covid-19 Ambulatory Covid-19 Amb ulatory Lab Routine 04/02/2020 10:12 PM EDT [place] Glucose measurement estimated from glycated hemoglobin [facility] Hemoglobin A1c/Hemoglobin.total in Blood Hemoglobin A1c Lab Routine Missed menses Ordered: 06/17/2024 [facility] Comment on above: Ordered: 06/17/2024 Hepatitis B virus herr rface Ag [Presence] in Serum or Plasma by Immunoassay Hepatitis B surface antigen Lab Routine Missed menses Ordered: 06/17/2024 [facility] Comment on above: Ordered: 06/17/2024 Hepatitis C virus Ab [Presence] in Serum or Plasma by Immunoassay Hepatitis C antibody Lab Routine Missed menses Ordered: 06/17/2024 [facility] Comment on above: Ordered: 06/17/2024 HIV-1/HIV-2 antigen/antibody combination immunoassay HIV-1 and HIV-2 antibodies Lab Routine Missed menses Ordered: 06/17/2024 [facility] Comment on above: Ordered: 06/17/2024 Methicillin resistan t Staphylococcus aureus [Presence] in Unspecified specimen by Organism specific culture [facility] MR Knee - left WO contrast F [facility] Neisseria gonorrhoea e DNA [Presence] in Unspecified specimen by SORIN with probe detection Neisseria gonorrhea DNA probe, direct Lab Routine Exposure to STD Ordered: 08/12/2024 [facility] Comment on above: Ordered: 08/12/2024 Nicotine [Mass/volum e] in Serum or Plasma [facility] Nicotine [Mass/volum e] in Serum or Plasma [facility] Patient Education Know your Meds [facility] Work Phone: Reagin Ab [Presence] in Serum by RPR RPR Lab Routine Missed menses Ordered: 06/17/2024 [facility] Comment on above: Ordered: 06/17/2024 Rubella antibody, IgG Rubella an tibody, IgG Lab Routine Missed menses Ordered: 06/17/2024 [facility] Comment on above: Ordered: 06/17/2024 SURESWAB(R) ADVANCED VAGINITIS PLUS, TMA SURESWAB(R) ADVANCED VAGINITIS PLUS, TMA Pathology and Cytology Routine Exposure to STD Ordered: 08/12/2024 [facility] Work Phone: Comment on above: Ordered: 08/12/2024 End: 03-31-2025 US for US OB follow up transabdominal approach Imaging Routine Retained intrauterine device (IUD) during in second trimester every 4 weeks for 4 Occurrences starting 10/01/2024 until 03/31/2025 [facility] Comment on above: every 4 weeks for 4 Occurrences starting 10/01/2024 until 03/31/2025 [facility] Immunizations Immunization Date Immunization Notes Care Provider Marty cerna 07-10-2024 influenza virus vaccine, unspecified formulation Catrachito Aiken DO Work Phone: [facility] 07-29-2021 COVID-19 mRNA-1273 (Moderna) [facility] 10-29-2020 COVID-19 mRNA-1273 (Moderna) [facility] 10-01-2020 COVID-19 mRNA-1273 (Moderna) [facility] 06-30-2020 influenza virus vaccine, unspecified formulation Sandrita Floro CNM Work Phone: [facility] 07-03-2019 influenza virus vaccine, unspecified formulation Yesica Khan [facility] [place] 06-05-2017 influenza, seasonal, injectable Sandrita Floro CNM Work Phone: [facility] 05-12-2017 influenza, injectabl e, quadrivalent, preservative free Sandrita Floro CNM Work Phone: [facility] 07-02-2012 tetanus toxoid, redu [place] diphtheria toxoid, and acellular pertussis vaccine, adsorbed Yesica Bill [facility] 05-18-2001 measles, mumps and rubella virus vaccine Sandrita Floro CNM Work Phone: [facility] Payers Date Payer Category Payer Commercial Managed C are - HMO PAR[employer]OUNT [id number] 2024 Managed Care O (unspecified) [id number] 2024 Unknown [id number] 2024 Self-pay [id number] 2023 [facility] er [id number] .[id number] 2023 Unknown 2023 Unknown [id number] 2022 Unknown [id number] 2020 Unknown [id number] 2018 Unknown [employer] M [employer] MH EMP xxxxxxxxxxxx 2018-Present [phone] [address] [place] [address] xxxxxxxxxxxx [id number] 2018 Medicaid [id number] 2014 Unknown [employer] ADVANT AGE [employer] ADVANTAGE xxxxxxxxxxx 2014-Present [phone] [address] [place] [address] xxxxxxxxxxx [id number] .[id number] 1988 Unknown [id number] 2.16.840.1.171779.3.579.2 .196 1988 Unknown [id number] 2.16840.1.562746.3.579.2 .196 1988 Unknown [id number] 2.16.840.1.804765.3.579.2 .196 1988 Unknown [id number] 2.16.840.1.344100.3.579.2 .1286 1988 Unknown [id number] 2.16.840.1.459088.3.579.2 .1285 1988 Unknown [id number] 2.16.840.1.604958.3.579.2 .1285 1988 Unknown [id number] 2.16.840.1.448462.3.579.2 .1285 1988 Unknown [id number] 2.16.840.1.384892.3.579.2 .1285 1988 Unknown [id number] 2.16.840.1.771680.3.579.2 .1285 1988 Unknown [id number] 2.16.840.1.643317.3.579.2 .1285 1988 Unknown [id number] 2.16.840.1.361009.3.579.2 .1285 1988 Unknown [id number] 2.16.840.1.483057.3.579.2 .1285 1988 Unknown [id number] 2.16.840.1.249053.3.579.2 .1988 Unknown [id number] 2.16.840.1.161845.3.579.2 .1988 Unknown [id number] 2.16.840.1.132093.3.579.2 .1988 Unknown [id number] 2.16.840.1.669480.3.579.2 .1988 Unknown [id number] 2.16.840.1.545763.3.579.2 .1988 Unknown [id number] 2.16.840.1.741272.3.579.2 .1988 Unknown [id number] 2.16.840.1.103281.3.579.2 .1988 Unknown [id number] 2.16.840.1.508546.3.579.2 .718 1988 Unknown [id number] 2.16.840.1.807754.3.579.2 .1258 1988 Unknown [id number] 2.16.840.1.558177.3.579.2 .1258 1988 Unknown [id number] 2.16.840.1.948981.3.579.2 .1258 1988 Unknown [id number] 2.16.840.1.953664.3.579.2 .1258 1988 Unknown [id number] 2.16.840.1.604688.3.579.2 .1258 1988 Unknown [id number] 2.16.840.1.851490.3.579.2 .1258 1988 Unknown [id number] 2.16.840.1.871033.3.579.2 .1258 1988 Unknown [id number] 2.16.840.1.169066.3.579.2 .1258 1988 Unknown [id number] 2.16.840.1.535323.3.579.2 .1258 1988 Unknown [id number] 2.16.840.1.322040.3.579.2 .1258 1988 Unknown [id number] 2.16.840.1.148736.3.579.2 .1258 1988 Unknown [id number] 2.16.840.1.247888.3.579.2 .1258 1988 Unknown [id number] 2.16.840.1.749529.3.579.2 .1258 1988 Unknown [id number] 2.16.840.1.085727.3.579.2 .1258 Unknown [facility] Employees [id number] Unknown [id number] 2.16.840.1.082192.3.579.2 .531 Unknown [id number] 2.16.840.1.467901.3.579.2 .531 Unknown [id number] 2.16.840.1.430659.3.579.2 .531 Unknown [id number] 2.16.840.1.001385.3.579.2 .531 Social History Date Type Detail Facility Start: 05-17-2019 End: 01-03-2020 Tobacco smoking status INIS Former [place] Start: 05-17-2019 End: 04-25-2024 Cigarettes smoked current (pack per day) - Reported [place] Start: 05-17-2019 End: 04-25-2024 Alcohol intake Yes [place] Start: 05-17-2019 Alcohol Comment social [place], [place] Start: 1990 Sex Assigned At Not on file M [place] Start: 01-03-2020 End: 11-21-2024 Alcohol intake Current drinker of alcohol (finding) [place] Start: 11-14-2019 End: 04-20-2023 Tobacco smoking status [facility] [place] Never smoked tobacco (finding) [facility] Start: 1990 Sex Assigned At Female F [facility] Start: 07-29-2016 End: 04-20-2023 Tobacco use and exposure Smokeless tobacco non-user [facility] Start: 04-21-2024 [facility] Unknown [facility] Start: 07-29-2016 Alcohol Comment 1-2 drinks per month [facility] Start: 07-05-2024 End: 09-04-2024 Alcoholic beverage intake Ex-drinker (finding) [facility] Start: 04-30-2015 Sex Female (finding) [facility] NEGATED: Highlighted row [facility] Medical Equipment Procedure Code Equipment Code Equipment Origin al Text Equipment Identifier Dates Arthroplasty, knee, total, minimally invasive Uncoated unicondylar knee femur prosthesis [id number] FDA Start: 04-29-2024 Arthroplasty, knee, total, minimally invasive Uncoated unicondylar knee tibia prosthesis, metallic ()[id number] FDA Start: 04-29-2024 Arthroplasty, knee, total, minimally invasive Unicondylar knee insert [id number] FDA Start: 04-29-2024 Arthroplasty, knee, total, minimally invasive Orthopaedic cement, non-medicated [id number] FDA Start: 04-29-2024 1 strip by In Vi tro route Daily Use in the morning prior to breakfast, 1 hour after each meal for a total of 4times daily. [id number] Start: 07-08-2024 End: 08-07-2024 1 each by In Vit ro route Daily Use to check FSBS four times daily [id number] Start: 07-08-2024 End: 08-07-2024 Goals Date Patient Goal Desired Activity /State Clinical Notes 07-11-2023 to 11-21-2024 Mariaelena Machado [facility] - 11/21/2024 11:50 AM Chapito Machado [facility] - 11/07/2024 1:30 PM Swati Fisher, [facility] - 10/01/2024 9:50 AM Nicki Reid MD - 09/04/2024 11:30 AM EST Note Date & Type Note Facility 11-21-2024 History of Present illness Narrative Reason for [...] nursing note reviewed. Exam conducted with a mine car dispatcher present. Vitals: Estimated body mass index is 40.32 kg/m as calculated from the following: Height as of 03/22/22: 5' 6 . Weight as of this encounter: 249 lb 12.8 oz. BP: 110/70 Patient's last menstrual period was 04/07/2024 (exact date). ASSESSMENT & PLAN ICD-10-CM 1. 32 weeks gestation of Z3A.32 POCT urinalysis dipstick manually resulted 2. Third trimester Z34.93 POCT urinalysis dipstick manually resulted Patient presents today for a routine obstetrics appointment. Patient is currently 32w4d with a Estimated Date of Delivery: 01/12/25. Patient voiced she has a scan on Monday and is having a watery discharge/leaking. Patient has antepartum testing on Monday, but encouraged to report to [facility] at this time to have monitoring and assess for leakage of fluid. Patient verbalized understanding nd [facility] was notified that she would be coming over for monitoring and verbal ords given to [facility] by Dr. Aiken. Growth scan was also ordered to have obtained while being monitored. Patient to return to clinic in 2 weeks for routine OB appointment. Documented by Mariaelena Machado LPN on behalf of: Catrachito Aiken DO documented in this encounter [facility] 11-07-2024 History of Present illness Narrative Reason for [...] nursing note reviewed. Exam conducted with a mine car dispatcher present. Vitals: Estimated body mass index is 40.03 kg/m as calculated from the following: Height as of 03/22/22: 5' 6 . Weight as of this encounter: 248 lb. BP: 120/72 Patient's last menstrual period was 04/07/2024 (exact date). ASSESSMENT & PLAN ICD-10-CM 1. Third trimester Z34.93 POCT urinalysis dipstick manually resulted 2. 30 weeks gestation of Z3A.30 Patient presents today for a routine obstetrics appointment. Patient is currently 30w4d with a Estimated Date of Delivery: 01/12/25. Patient sugars are well controlled at this time, only complaint is pain from fall yesterday on the same side she recently had surgery on. Discussed NST/BPP at 32 weeks. Patient is still scheduled with MFM. Patient to RTC in 2 weeks. Documented by Mariaelena Machado LPN on behalf of: Catrachito Aiken DO documented in this encounter [facility] 11-06-2024 Note Patient Education Ma terials Follows: Knee Sprain, Adult A knee sprain is a stretch or tear in a knee ligament. Knee ligaments are tissues that connect the bones of the knee joint to each other. What are the causes? This condition often results from: ? A fall. ? An injury to the knee. What are the signs or symptoms? Symptoms of this condition include: ? Trouble straightening or bending the leg. ? Swelling in the knee. ? Bruising around the knee. ? Tenderness or pain in the knee. ? Sudden muscle tightening (spasm) around the knee. How is this diagnosed? This condition may be diagnosed based on: ? A physical exam. ? A history of what happened just before you started to have symptoms. ? Tests. These may include: ? An X-ray. This may be done to make sure no bones are broken or moved out of position (dislocated). ? An MRI. This may be done to check if any of the ligaments are torn and to check for other damage. ? A physical exam that includes stress testing of the knee. This may be done to check for damage to ligaments. How is this treated? Treatment for this condition may involve: ? Keeping the knee in a straightened position (immobilized) with a cast, brace, or splint. ? Applying ice to the knee. This helps with pain and swelling. ? Raising (elevating) the knee above the level of your heart when you are resting. This helps with pain and swelling. ? Taking medicine for pain. ? Doing exercises to prevent or limit long-term weakness or stiffness in your knee. ? Having surgery to reconnect ligaments to the bone or to reconstruct ligaments. This may be needed if one or more ligaments are fully torn. Follow these instructions at home: If you have a removable splint or brace: ? Wear the splint or brace as told by your health care provider. Remove it only as told by your health care provider. ? Check the skin around the splint or brace every day. Tell your health care provider about any concerns. ? Loosen the splint or brace if your toes tingle, become numb, or turn cold and blue. ? Keep the splint or brace clean and dry. If you have a nonremovable cast: ? Do not put pressure on any part of the cast until it is fully hardened. This may take several hours. ? Do not stick anything inside the cast to scratch your skin. Doing that increases your risk of infection. ? Check the skin around the cast every day. Tell your health care provider about any concerns. ? You may put lotion on dry skin around the edges of the cast. Do not put lotion on the skin underneath the cast. ? Keep the cast clean and dry. Bathing If the splint, brace, or cast is not waterproof: ? Do not let it get wet. ? Cover it with a watertight covering when you take a bath or a shower. Managing pain, stiffness, and swelling ? If directed, put ice on the injured area. To do this: ? If you have a removable splint or brace, remove it as told by your health care provider. ? Put ice in a plastic bag. ? Place a towel between your skin and the bag or between your cast and the bag. ? Leave the ice on for 20 minutes, 2?3 times a day. ? If your skin turns bright red, remove the ice right away to prevent skin damage. The risk of skin damage is higher if you cannot feel pain, heat, or cold. ? Move your toes often to reduce stiffness and swelling. ? Elevate the injured area above the level of your heart while you are sitting or lying down. General instructions ? Take kczs-kzz-zoavrde and prescription medicines only as told by your health care provider. ? Do not use any products that contain nicotine or tobacco. These products include cigarettes, chewing tobacco, and vaping devices, such as e-cigarettes. These can delay healing. If you need help quitting, ask your health care provider. ? Do exercises as told by your health care provider. Contact a health care provider if: ? You have pain that gets worse. ? The cast, brace, or splint does not fit right or gets damaged. Get help right away if: ? You cannot use your injured knee to support any of your body weight (cannot bear weight). ? You cannot move the injured joint. ? You cannot walk more than a few steps without pain or without your knee buckling. ? You have a lot of pain, swelling, or numbness in the leg below the cast, brace, or splint. ? Your foot or toes are numb, cold, or blue after you loosen your splint or brace. This information is not intended to replace advice given to you by your health care provider. Make sure you discuss any questions you have with your health care provider. Document Revised: 03/06/2023 Document Reviewed: 03/06/2023 [employer] Patient Education ? 2023 [employer] Contusion A contusion is a deep bruise. Contusions are the result of a blunt injury to tissues and muscle fibers under the skin. The injury causes bleeding under the skin. The skin over the contusion may turn blue, p (more content not included)... [facility] 10-01-2024 History of Present illness Narrative Reason [...] nursing note reviewed. Exam conducted with a mine car dispatcher present. Vitals: Estimated body mass index is [...] Catrachito Aiken DO documented in this encounter [facility] 09-04-2024 History of Present illness Narrative [facility] Maternal- Medicine Office Visit Note HPI: Lucila [...] 03/30/2022 Performed by Mason Martinez DO at [facility] SECTION 06/25/2012 SECTION 10/26/2014 laparoscopic hiatal hernia repair N/A 08/05/2016 Performed by Vahe Fernandez MD at [facility] LAPAROSCOPIC SLEEVE GASTRECTOMY POSSIBLE CLOSURE OF DIAPHRAGMATIC CRURA [facility] N/A 08/05/2016 Performed by Vahe Fernandez MD at [facility] MICRODISCECTOMY LUMBAR Allergies: Allergies Allergen Reactions [...] Resource Strain: Low Risk (03/13/2024) Received from [facility] Overall Financial Resource Strain (CARDIA) Difficulty of Paying Living Expenses: Not hard at all Food Insecurity: No Food Insecurity (07/05/2024) Hunger Screening Food Insecurity - Worry: Never True Food Insecurity - Inability: Never True Transportation Needs: Unknown (03/13/2024) Received from [facility] PRAPARE - Transportation Lack of Transportation (Medical): Not on file Lack of Transportation (Non-Medical): No Physical Activity: Not on file Stress: Not on file Social Connections: Not on file Interpersonal Safety: Not on file Housing Instability: Unknown (03/13/2024) Received from [facility] Housing Stability Vital Sign Unable to [...] - 1.00 mg/dL Final METHOD TRACEABLE TO IDMS STANDARD eGFR (CKD-EPI)non-race dependent 07/10/2024 >90 >59 [...] gestation of [Z3A.21] Please refer to prior [facility] recommendations and consultation notes Ultrasound was reviewed [...] primary OB office. If you would like [facility] to perform the growth ultrasound please place a referral Weekly NST and DVP from 34 weeks until delivery due to the patient's medical co-morbidities. To be done in primary OB office Delivery recommended at 39 weeks or earlier as clinically indicated to remove IUD at time of section. The patient desires tubal ligation The patient has a scheduled ultrasound with [facility] She does not have future follow-up visits at [facility] if you would like for us to see the patient again please reach out was The patient is to continue with routine care in your office Thank you for allowing me to participate in her care. Please contact me if you have any concerns. Christen Reid MD, FACOG (she/hers) Maternal- Medicine [facility] [address] [place] [address] This document was created with Appstarter technology. Though I make every effort to review the dictation as it is transcribed, on occasion the spoken word can be misinterpreted by the technology leading to inappropriate words, phrases, or sentences. This note is addressed to the requesting provider as a consultation for clinical guidance. Specific medical abbreviations are occasionally used and those are generally approved by the [place]?Board of?Obstetrics and?Gynecology?as well as?Vilma mckeon abbreviations. The above plan of care was based solely on the diagnoses for which a consultation was requested. ?More frequent testing may be indicated based on her other medical/obstetrical conditions. The management of other or medical conditions is beyond the scope of requested consultation and will continue to be followed by the primary sausage meat trimmer or primary care provider. Note to patient: The Century Cures Act makes medical notes like these [...] provider today? No documented in this encounter [facility] 08-12-2024 History of Present illness Narrative Reason [...] Blaire Abraham MA on behalf of: ALTAF aNtion documented in this encounter [facility] 07-16-2024 History of Present illness Narrative Reason [...] nursing note reviewed. Exam conducted with a mine car dispatcher present. Vitals: Estimated body mass index is [...] or undercooked meat, and stay away from [facility]. Patient has been consulted regarding any further do's and don'ts of . Patient voiced understanding and all questions and concerns were answered. Orders Placed This Encounter Procedures POCT urinalysis dipstick manually resulted Follow Up: Patient is to return in 4 weeks for routine OB appointment. Documented by Vikki Fisher LPN on behalf of: Catrachito Aiken DO documented in this encounter [facility] 07-05-2024 History of Present illness Narrative Headache/epigastric [...] yes Have you been seen here at [facility] in a previous ? Yes Recent ER visits or hospitalizations? no Bring blood sugar log or meter with you today? (Please bring them with you for every visit at [facility]) n/a Flu vaccine (Jul-November)? no Any concerns [...] 03/30/2022 Performed by Mason Martinez DO at [facility] SECTION 06/25/2012 SECTION 10/26/2014 laparoscopic hiatal hernia repair N/A 08/05/2016 Performed by Vahe Fernandez MD at [facility] LAPAROSCOPIC SLEEVE GASTRECTOMY POSSIBLE CLOSURE OF DIAPHRAGMATIC CRURA [facility] N/A 08/05/2016 Performed by Vahe Fernandez MD at [facility] MICRODISCECTOMY LUMBAR OB Hx: OB History [...] Resource Strain: Low Risk (03/13/2024) Received from [facility] Overall Financial Resource Strain (CARDIA) Difficulty of Paying Living Expenses: Not hard at all Food Insecurity: No Food Insecurity (07/05/2024) Hunger Screening Food Insecurity - Worry: Never True Food Insecurity - Inability: Never True Transportation Needs: Unknown (03/13/2024) Received from [facility] PRAPARE - Transportation Lack of Transportation (Medical): Not on file Lack of Transportation (Non-Medical): No Physical Activity: Not on file Stress: Not on file Social Connections: Not on file Interpersonal Safety: Not on file Housing Instability: Unknown (03/13/2024) Received from [facility] Housing Stability Vital Sign Unable to [...] bring it to the attention of her sausage meat trimmer to confirm intact expulsion. 2. Obesity affecting [...] to be sent by Dr. Aiken's office. [facility] is happy to review sugar log as [...] continue with routine care in your office [facility], the CDC, and other organizations representing maternal and public health professionals recommend that , , and lactating people and those considering receive the COVID-19 vaccination. Vaccination is the best method to reduce maternal and complications of SARS-CoV-2 infection. This document was created with Appstarter technology. Though I make every effort to review the dictation as it is transcribed, on occasion the spoken word can be misinterpreted by the technology leading to inappropriate words, phrases, or sentences. This note is addressed to the requesting provider as a consultation for clinical guidance. Specific medical abbreviations are occasionally used and those are generally approved by the [place]?Board of?Obstetrics and?Gynecology?as well as?Vilma s abbreviations. The above plan of care was based solely on the diagnoses for which a consultation was requested. ?More frequent testing may be indicated based on her other medical/obstetrical conditions. The management of other or medical conditions is beyond the scope of requested consultation and will continue to be followed by the primary sausage meat trimmer or primary care provider. Thank you for [...] procedures Referring and communicating with other health care professional (not separately reported) Documenting clinical information in the electronic or other health record Independently interpreting results (not separately reported) and communicating results to the patient/family/caregiver Care coordination (not separately reported) [facility] History of Present illness Narrative Reason [...] Laterality Date BARIATRIC SURGERY 07/2016 SECTION, CLASSIC 2014 KNEE SURGERY Left 03/30/2022 LT knee [...] nursing note reviewed. Exam conducted with a mine car dispatcher present. Vitals: Estimated body mass index is [...] to continue and OB care locally at [facility] office with Dr. Aiken along with M. Patient advised to take 81mg Aspirin if tolerated. Gave patient orders for early 24 hour urine and lab workup. Patient to return to clinic in 4 weeks. Documented by Mariaelena Machado LPN on behalf of: Catrachito Aiken DO documented in this encounter [facility] 05-31-2024 History of Present illness Narrative REASON FOR CONSULTATION: Retained IUD in . HISTORY OF PRESENT ILLNESS: Lucila Jacques is a pleasant 33 y.o. G 3p 2-0 0 2. at 7w5d due on Estimated Date of Delivery: 01/12/25 . Patient was seen today due to the following 1. Replacement of a new IUD last month. Unfortunately the patient got while IUD in place. 2. History of 2 prior . Patient is scheduled for repeat with bilateral tubal ligation at her OB office 3. History of right knee replacement. Patient was on Xarelto anticoagulation earlier which she has stopped. Currently not on medication 4. History of gastric sleeve procedure. 5. Maternal increased BMI. Currently the patient has no complaints. The patient denies nausea, vomiting, abdominal pain, vaginal bleeding, SOB or chest pain. Patient's PMH/PSH,SH,PSYCH Hx, MEDs, ALLERGIES, and ROS were all reviewed and updated in the appropriate sections. Patient Active Problem List Diagnosis Fatigue Obesity, Class III, BMI 40-49.9 (morbid obesity) ([facility]) Gastroesophageal reflux disease without esophagitis Morbid obesity ([facility]) Past Medical History: Diagnosis Date Anxiety Arrhythmia palpitations daily, last a few seconds, without chest pain or sob, has mentioned to pcp, has not had testing Arthritis Back pain Laughlin involving 10-19% of body surface age 1 scarring from hot water laughlin left arm and chin and neck bilateral Depression GERD (gastroesophageal reflux disease) watches diet, no medication Headache, migraine occassional Heart palpitations Hip pain Joint derangement sacral illiac joint goes out of place bilateral approx twice a year, sees chiropracter, for adjustment Knee pain Migraines Obesity PONV (postoperative nausea and vomiting) Visual impairment wears glasses, nearsighted astigmatism PAST OBSTETRICAL HISTORY: OB History 3 Para 2 Term 2 AB Living SAB IAB Ectopic Multiple Live Births SURGICAL HISTORY: Past Surgical History: Procedure Laterality Date ARTHROSCOPY MENISCECTOMY KNEE Left 03/30/2022 Performed by Mason Martinez DO at [facility] SECTION 06/25/2012 SECTION 10/26/2014 laparoscopic hiatal hernia repair N/A 08/05/2016 Performed by Vahe Fernandez MD at [facility] LAPAROSCOPIC SLEEVE GASTRECTOMY POSSIBLE CLOSURE OF DIAPHRAGMATIC CRURA [facility] N/A 08/05/2016 Performed by Vahe Fernandez MD at [facility] MICRODISCECTOMY LUMBAR SLEEVE GASTROPLASTY 08/05/2016 ALLERGIES: Allergies Allergen Reactions Amoxicillin Magnesium Hives Nsaids (Non-Steroidal Anti-Inflammatory Drug) Hives Potassium Chloride Hives CURRENT MEDICATIONS: Current Outpatient Medications: CALCIUM CITRATE ORAL, Take by mouth., Disp: , Rfl: multivitamin (MULTIPLE VITAMINS DAILY ORAL), Take by mouth., Disp: , Rfl: FAMILY/GENETIC HISTORY: No family history of VTE, cardiac defects and mental retardation . SOCIAL HISTORY:Patient denies tobacco use, alcohol use, or drug use. RECENT HOSPITALIZATION: none I did review all the labs results available in addition to labs which were ordered by the primary care physician, and the other consultants, we search on [employer] and all the available care everywhere epic I did review all the imaging studies of the patient available on EMR, ordered by the primary care physician and the other jury consultant HABITS: Patient activity no restrictions, diet no restrictions REVIEW OF SYSTEM: Head and Neck: Negative for any dizziness and headaches. Cardiovascular and Respiratory System: Denies any chest pain, shortness of breath, and coughing. Abdominal and System: Denies any abdominal pain, nausea, vomiting, vaginal bleeding, and vaginal discharge Social Determinants of Health Financial Resource Strain: n Food Insecurity: n Transportation Needs: n Physical Activity: y Social Connections: y Intimate Partner Violence: n Housing Stability: y PHYSICAL EXAMINATION: Wt 106.4 kg (234 lb 9.6 oz) LMP 04/07/2024 Comment: implant BMI 36.74 kg/m . Gravid abdomen, Respirations not labored. Well oriented time place person, normal gait PELVIC EXAMINATION: Close parous cervix. No evidence of IUD string seen. Minimal out of old vaginal blood that was cleared off MEDICAL DECISION MAKING DISCUSSION: I informed the patient that unlike malabsorptive procedure that decrease the effectiveness of nutrient absorption by shortening the length of the functional small intestine either through bypass of the small bowel or a diversion, the restrictive procedure have low complications during . Gastric sleeve procedure is a restrictive procedure that limits the caloric intake by reducing the stomach capacity and therefore, the patients have decreased caloric intake due to small amount of reservoir in the stomach. These pregnancies usually are uncomplicated as long as the patient has gone through her weight reduction. should be managed with serial growth ultrasounds every 4 weeks at OB office and a comprehensive metabolic profile along with a CBC around 34 to 36 weeks' gestation. Iron deficiency anemia sometimes is a complication and needs to be aggressively treated via IV iron supplementation if not responding to oral. We further discussed IUD in place without strings visible. IUD could not be taken out due to nonvisualization of the strings. premature rupture membranes or labor. However most of the go uncomplicated. RECOMMENDATION: 1. Retained IUD without strings visualized at the level of the external os and therefore IUD would was not able to be removed. 2. IUD seen through transvaginal approach at the lower uterine segment. 3. Follow-up in 5 weeks for 1st trimester ultrasound at [facility] office. 4. Targeted anatomy at weeks gestation at [facility] office. 5. Serial growth ultrasounds 4 weeks after 24 weeks gestation at her OB office. 6. Patient is a candidate for low-dose aspirin therapy starting at 12 weeks gestation to be coordinated through her OB office. 7. Patient advanced maternal age. Please offer genetic screening her OB office. 8. Increased risk for iron deficiency anemia due to gastric sleeve procedure and therefore will need close follow-up 9. Please obtain baseline 24 urine protein excretion of protein creatinine ratio along with a comprehensive metabolic profile through her OB office. 10. Patient still considered low risk and repeat at 39 weeks gestation at her local hospital is anticipated. Please confirm removal of IUD at the time of . DISPOSITION: At this point the patient is in complete care of her sausage meat trimmer. Patient does have ultrasound office visit scheduled with us. Thank you for allowing me to participate in Lucila Jacques . If there any questions please do not hesitate to contact us. Sincerely, LEXI ROBERTSON MD documented in this encounter [facility] 05-23-2024 History of Present illness Narrative Subjective Lucila Jacques is a 33 y.o. at 6w4d with a working estimated date of delivery of 01/12/2025, by Last Menstrual Period who presents for an initial visit. This is unplanned. Patient Care Team: Noms Provider MD Sergei as PCP - General [...] does also recommend for patient to see [facility] For their consultation also. PVU and agrees [...] also given office phone number and [facility] number to call in case of an emergency or after hours needs. PVU and all questions answered. We did discuss place of delivery. Patient should plan to go to [facility] for all services unless an emergency and they need to go to the closest ER. We can make other arrangements possibly if patient would like to deliver at another facility but I did explain I am now at [facility] 100% of the time and would like to do all deliveries there. documented in this encounter [facility] 05-22-2024 Telephone encounter Note Pt had an IUD inserted a month ago and has tested positive for , she hadn't been feeling good lately and it is positive, please call to discuss the next step, in her pregancy and IUD [facility] 05-22-2024 Miscellaneous Notes Pt had an IUD inserted a month ago and has tested positive for , she hadn't been feeling good lately and it is positive, please call to discuss the next step, in her pregancy and IUD documented in this encounter [facility] 02-27-2024 Note Education Materials Gastroenterology Laparoscopic cholecystectomy, [...] these instructions at home: Medicines ? Take jcxu-gkj-wxwnjhy and prescription medicines only as told by [...] keep your urine pale yellow. ? Take hmsm-gtp-yupyiyn or prescription medicines. ? Eat foods that [...] and water are not available, use hand pipe out worker. ? Place dry dressings as needed. ? [...] provider. Document Revised: 03/15/2022 Document Reviewed: 03/15/2022 [employer] Patient Education ? 2022 [employer]. [facility] 02-27-2024 Note [facility] Discharge Summary PERSON INFORMATION Name LUCILA JACQUES Age 33 Years 1990 Sex FEMALE Language American PCP Provider, None Marital Status Med Service Observation Acct# Arrival 02/26/2024 22:40:28 Visit Reason Abdominal pain; ACUTE CHOLECYSTITIS Acuity LOS 000 10:25 Address: [address] [address] Comment: PROVIDER INFORMATION VITALS INFORMATION Vital Sign [...] ibuprofen Medication List: New Medications [id number], [address], [place] [id number], [phone] acetaminophen-hydrocodone (acetaminophen-hydrocodone 325 mg-5 mg oral tablet) [...] range between ( 1.3 and 2.9 ) Caribou Abs#: 0.6 x103/mcL -- Normal range between ( 0.0 and 0.8 ) Auto Baso %: 0.4 % -- Normal range between ( 0.2 and 2.0 ) Auto Caribou %: 8 % -- Normal range between [...] Anion Gap: 1 (more content not included)... [facility] 01-15-2024 Note [id number] [facility] 01-12-2024 Note [facility] SURGERY Clinical Discharge Summary PERSON INFORMATION Name LUCILA JACQUES Age 33 Years 1990 Sex FEMALE Language American PCP Provider, None Marital Status Med Service Pain Management Surgery Acct# Arrival 01/12/2024 10:59:54 Visit Reason GENICULAR PAIN Acuity LOS 004 01:11 Address: [address] [place] [address] Comment: PROVIDER INFORMATION VITALS INFORMATION Vital Sign [...] AM Confirmed DIAGNOSIS Comment: PHYS DOC NOTES [facility] 01-11-2024 Note [id number] The history of present illness has been reviewed. There are no changes document. [Electronically Signed on: 01/12/2024 11:34 EDT] ALEC PATEL MD [Verified on: 01/12/2024 11:34 EDT] ALEC PATEL MD [Transcribed on: 01/11/2024 13:06 EDT] [facility] 08-23-2023 Note Date of Telehealth V isit: 08/23/23 The patient was notified that using 3rd democrat telecommunication application (e.g. [employer]) is not HIPAA compliant and may carry some privacy risks: Yes This visit was conducted zakx-ke-royp with the use of audio and video [...] shortness of breath. She has been using vfmb-ppp-urtrppt medications with minimal relief of symptoms. ROS: [...] and coordinating care. Ching Brooks PA-C [facility] 07-11-2023 Note [facility] Telemedicine Visit Date of Telehealth Visit: 07-11-2023 The patient was notified that using 3rd democrat telecommunication application (e.g. [employer]) is not HIPAA compliant and may carry some privacy risks This visit was conducted xxcn-ok-zwux with the use of audio and video [...] migraines. Patient states that she is taken sali-mhf-xgdkaxy Tylenol and Tylenol PM. She has a [...] today's date. Greater than 16 minutes spent alto-zc-ppol assessing patient, reviewing chart and discussing plan of care including treatment options. Care collaborated all questions answered. Rekha Mustafa PA-C Portions of this chart have been completed with voice recognition software, please excuse any errors. [facility] Evaluation note No assessment inform ation available [facility] Work Phone: Evaluation note Diagnosis Onset Date Primary osteoarthritis of left knee acute [facility] Work Phone: Evaluation note* Diagnosis Onset Date Resolution Status Primary osteoarthritis of left knee acute Primary osteoarthritis of left knee acute [facility] Work Phone: Evaluation note* Diagnosis Onset Date Resolution Status Primary osteoarthritis of left knee acute Status post left partial knee replacement acute [facility] Work Phone: Evaluation note* Diagnosis Onset Date Resolution Status Primary osteoarthritis of left knee acute Status post left partial knee replacement acute Status post left partial knee replacement acute [facility] Work Phone: Evyzuation note* Diagnosis 14 weeks gestation of Second trimester state, incidental documented in this encounter [facility] HealthcareEvaluation note* Diagnosis Exposure to STD Need for maternal serum alpha-protein (MSAFP) screening Screening, , for anatomic survey Encounter for anatomic survey Second trimester state, incidental 18 weeks gestation of documented in this encounter [facility] HealthcareEvaluation note* Diagnosis examination or test, positive result- Primary IUD check up Amenorrhea Absence of menstruation documented in this encounter [facility] HealthcareEvaluation note* Diagnosis Missed menses Encounter for supervision of normal first in first trimester , unspecified gestational age Encounter for screening for cervical length complicated by intrauterine device (IUD) induced hypertension, antepartum Transient hypertension of , antepartum Multigravida of advanced maternal age in first trimester documented in this encounter [facility] HealthcareEvaluation note* Diagnosis Second trimester state, incidental 25 weeks gestation of with normal glucose tolerance test (GTT) Diabetes mellitus screening Screening for diabetes mellitus Retained intrauterine device (IUD) during in second trimester documented in this encounter [facility] HealthcareEvaluation note* Diagnosis Third trimester state, incidental 30 weeks gestation of with IUD in place, antepartum, first trimester documented in this encounter [facility] HealthcareEvaluation note* Diagnosis Retained intrauterine device (IUD) during in first trimester- Primary documented in this encounter [facility] System[facility]* Diagnosis Retained intrauterine device (IUD) during in first trimester- Primary documented in this encounter [facility]* Diagnosis Retained intrauterine device (IUD) during in second trimester- Primary BMI 36.0-36.9,adult Multigravida of advanced maternal age in second trimester documented in this encounter [facility]* Diagnosis Retained intrauterine device (IUD) during in second trimester- Primary Obesity affecting in second trimester, unspecified obesity type BMI 36.0-36.9,adult Multigravida of advanced maternal age in second trimester Anxiety during Depression affecting History of 2 sections History of knee replacement, unspecified laterality Bariatric surgery status complicating , second trimester Family history of clubfoot 12 weeks gestation of documented [facility]* Diagnosis 21 weeks gestation of - Primary Retained intrauterine device (IUD) during in second trimester History of gastric bypass Obesity affecting in second trimester, unspecified obesity type with history of section, antepartum Multigravida of advanced maternal age in second trimester [facility]* Diagnosis 21 weeks gestation of - Primary Retained intrauterine device (IUD) during in second trimester History of gastric bypass Multigravida of advanced maternal age in second trimester documented [facility]* Diagnosis 32 weeks gestation of Third trimester state, incidental with IUD in place, antepartum, first trimester documented in this encounter [facility] HealthcareInstructionsNot on filedocumented in this [facility] System[facility]ructionsNot on filedocumented in this [facility] SystemInstructionsNot on filedocumented [facility] InstructionsNot on filedocumented [facility] InstructionsNot on filedocumented in [facility] InstructionsNot on filedocumented in [facility]* Attachments The following attachments cannot be sent through Care Everywhere. * Preeclampsia (American) * Movement (American) [facility] on file documented in this [facility] System Assessments Diagnosis History of bariatric surgery Bariatric surgery status Health care maintenance Unspecified general medical examination Advance Directives Documents on File Type Date Recorded Patient Bottle Tester Expl anation Advance Directives and Living Will Power of Welder Oxyhydrogen Advance Directive Response Recorded Date/ Time Advance Directives No July 3:35pm Advance Directive Response Recorded Date/ Time Advance Directives No March 26 4 9:12am Date Activated Date Inactivated Comments 08/05/2016 3:21 PM 08/07/2016 1:33 PM Date Activated Date Inactivated Comments 08/05/2016 3:21 PM 08/07/2016 1:33 PM Summary Purpose Family History Relationship Condition Age at Onset Recorded Date/T [...] Referral Specialty Diagnoses / Procedures Referred By Contac t Referred To Contact Maternal and Medicine Diagnoses Retained intrauterine device (IUD) during in first trimester Procedures [facility] with or without consult Lexi Robertson MD [address], [address] [place] [address] [facility] [address] [place] [address] Referral ID Status Reason Start Date Expiration Date V isits Requested Visits Authorized [id number] Pending Review 05/31/2024 05/31/2025 1 1 Specialty Diagnoses / Procedures Referred By Contac t Referred To Contact Maternal and Medicine Diagnoses Retained intrauterine device (IUD) during in second trimester BMI 36.0-36.9,adult Multigravida of advanced maternal age in second trimester Procedures [facility] with or without consult Mishel Segovia MD [address], [address] [place] [address] [facility] [address] [place] [address] Referral ID Status Reason Start Date Expiration Date V isits Requested Visits Authorized [id number] Pending Review 07/05/2024 07/05/2025 1 1 Additional Source Comments INFORMATION SOURCE (unrecogn ized section and content) DATE CREATED AUTHOR 10/18/2021 [facility] DATE CREATED AUTHOR AUTHOR'S ORGANIZ ATION 08/30/[address] [facility] DATE CREATED AUTHOR AUTHOR'S ORGANIZ ATION 02/02/2024 [facility] DATE CREATED AUTHOR AUTHOR'S ORGANIZ ATION 03/16/2024 [facility] DATE CREATED AUTHOR AUTHOR'S ORGANIZ ATION 06/13/2024 [facility] DATE CREATED AUTHOR AUTHOR'S ORGANIZ ATION 09/07/2024 [facility] DATE CREATED AUTHOR AUTHOR'S ORGANIZ ATION 10/16/[address] [facility] DATE CREATED AUTHOR AUTHOR'S ORGANIZ ATION 11/12/2024 [facility] DATE CREATED AUTHOR AUTHOR'S ORGANIZ ATION 11/23/2024 [facility] dical Specialists EPIC Care Teams (unrecognized [...] 12, 2024 Santa Estrada II, MD Attending [facility], Referring Provider Active Start: March 12, [...] June 11, 2024 End: June 11, 2024 Complex Care Nurse Practitioner Relationship Specialty Start Date End Date Unallocated, Haley Garcia MD [facility] [place] [address] PCP - General Family Medicine 02/01/24 Victor M Lujan, NASEEM [address] [place] [address] PCP - [employer] 03/25/24 Team Status: Inactive Member Role Status Dates NON STAFF Primary Care Provider Active Start: July 17, 2024 End: July 17, 2024 Santa Estrada II, MD Attending Provider Active Start: July 17, 2024 End: July 17, 2024 Complex Care Nurse Practitioner Relationship Specialty Start Date End Date Unallocated, Haley Garcia MD [facility] [place] [address] PCP - General Family Medicine 02/01/24 Victor M Lujan NP [address] [place] [address] PCP - [employer] 03/25/24 Complex Care Nurse Practitioner Relationship Specialty Start Date End Date Unallocated, Haley Garcia MD [facility] [address] [facility] [place] [address] PCP - General Family Medicine 02/01/24 Victor M Lujan, NASEEM [address] [place] [address] PCP - [employer] 03/25/24 Complex Care Nurse Practitioner Relationship Specialty Start Date End Date Unallocated, Haley Garcia MD [facility] [place] [address] PCP - General Family Medicine 02/01/24 Victor M Lujan, [employer] [address] [place] [address] PCP - [employer] 03/25/24 Complex Care Nurse Practitioner Relationship Specialty Start Date End Date Unallocated, Haley Garcia MD [address] [facility] [place] [address] PCP - General Family Medicine 02/01/24 Victor M Lujan, [employer] [address] [place] [address] PCP - [employer] 03/25/24 Complex Care Nurse Practitioner Relationship Specialty Start Date End Date Unallocated, Haley Garcia MD [facility] [place] [address] PCP - General Family Medicine 02/01/24 Victor M Lujan, [employer] [address] [place] [address] PCP - [employer] 03/25/24 Complex Care Nurse Practitioner Relationship Specialty Start Date End Date Unallocated, Haley Garcia MD [address] [place] [address] PCP - General Family Medicine 02/01/24 Victor M Lujan, [employer] [address] [place] [address] PCP - [employer] 03/25/24 Complex Care Nurse Practitioner Relationship Specialty Start Date End Date Unallocated, Haley Garcia MD [address] [place] [address] PCP - General Family Medicine 02/01/24 Victor M Lujan, [employer] [address] [place] [address] PCP - [employer] 03/25/24 Complex Care Nurse Practitioner Relationship Specialty Start Date End Date Unallocated, Haley Garcia MD [address] [place] [address] PCP - General Family Medicine 02/01/24 Victor M Lujan, [employer] CR[employer] [address] [facility] [place] [address] PCP - [employer] 03/25/24 Complex Care Nurse Practitioner Relationship Specialty Start Date End Date Unallocated, Haley Garcia MD [address] [facility] [place] [address] PCP - General Family Medicine 02/01/24 Victor M Lujan, [employer] [address] [place] [address] PCP - [employer] 03/25/24 Complex Care Nurse Practitioner Relationship Specialty Start Date End Date Unallocated, Haley Garcia MD [facility] [place] [address] PCP - General Family Medicine 02/01/24 Victor M Lujan, [employer] [address] [place] [address] PCP - [employer] 03/25/24 Complex Care Nurse Practitioner Relationship Specialty Start Date End Date Unallocated, Haley Garcia MD [address] [facility] [place] [address] PCP - General Family Medicine 02/01/24 Victor M Lujan, [employer] [address] [place] [address] PCP - [employer] 03/25/24 Complex Care Nurse Practitioner Relationship Specialty Start Date End Date Unallocated, Haley Garcia MD [address] [place] [address] PCP - General Family Medicine 02/01/24 Victor M Lujan, [employer] [address] [place] [address] PCP - [employer] 03/25/24 Complex Care Nurse Practitioner Relationship Specialty Start Date End Date Unallocated, Haley Garcia MD [address] [facility] [place] [address] PCP - General Family Medicine 02/01/24 Victo rM Lujan NP [address] [place] [address] PCP - [employer] 03/25/24 Complex Care Nurse Practitioner Relationship Specialty Start Date End Date Unallocated, MD Blayne Harden [facility] [place] [address] PCP - General Family Medicine 02/01/24 Complex Care Nurse Practitioner Relationship Specialty Start Date End Date Pcp, [place] [address] PCP - General Family Medicine 09/04/23 Complex Care Nurse Practitioner Relationship Specialty Start Date End Date Pcp, [place] [address] PCP - General Family Medicine 09/04/23 Complex Care Nurse Practitioner Relationship Specialty Start Date End Date Pcp, [place] [address] PCP - General Family Medicine 09/04/23 Complex Care Nurse Practitioner Relationship Specialty Start Date End Date Pcp, [place] [address] PCP - General Family Medicine 09/04/23 Complex Care Nurse Practitioner Relationship Specialty Start Date End Date Pcp, [place] [address] PCP - General Family Medicine 09/04/23 Complex Care Nurse Practitioner Relationship Specialty Start Date End Date Pcp, [place] [address] PCP - General Family Medicine 09/04/23 Complex Care Nurse Practitioner Relationship Specialty Start Date End Date Pcp, [place] [address] PCP - General Family Medicine 09/04/23 Complex Care Nurse Practitioner Relationship Specialty Start Date End Date Pcp, [place] [address] PCP - General Family Medicine 09/04/23 Complex Care Nurse Practitioner Relationship Specialty Start Date End Date Unallocated, Haley Garcia MD [address] [place] [address] PCP - General Family Medicine 02/01/24 Goals (unrecognized section and content) Goals may [...] (unrecogniz ed section and content) Reason Comments Routine Visit Reason Comments Initial Visit Reason Comments IUD in place in Reason Comments AMA BMI Retained IUD w/o string Reason Comments Retained IUD AMA FOR RECORDS PERTAINING TO PATIENTS WHO ARE [...] BE BASED ON THE PRIMARY CLINICAL RECORDS. [employer] [facility]. provides no warranty or guarantee of the accuracy or completeness of information in this document.
[2024-11-25 10:37] VITALS: BP 108/70; PULSE 81
[2024-11-25] MEDS: BETAMETHASONE ACE/BETAMETHASONE SOD PHOS 30 MG/5 ML 12 MG IM (11:21)
[2024-11-25 11:32] LABS: Amnisure NEGATIVE (NEGATIVE); Internal Control Within Normal Limits
== END 2024-11-25 12:24 | disposition home or self-care (01) ==
LOC: US 02:29 → FBC 09:58
PROVIDERS: Visit Provider Obstetrics & Gynecology
DX: O26.31 Retained intrauterine contraceptive device in pregnancy, first trimester (principal)
CPT/HCPCS: 76818; 84112; 96372; J0702

== ENCOUNTER 2024-11-26 07:49 | Outpatient (RCR) | payer OTHER, SELFPAY ==
[2024-11-26] MEDS: BETAMETHASONE ACE/BETAMETHASONE SOD PHOS 30 MG/5 ML 12 MG IM (10:22)
[2024-11-26 10:25] VITALS: BP 129/59; PULSE 85
--- NOTE | 2024-11-26 10:40 | PC.NURSE ---
1020- Pt arrives to [facility] for scheduled Celestone dose. Celestone given per order. VS obtained.
== END 2024-11-26 10:40 | disposition home or self-care (01) ==
LOC: INF 07:49
PROVIDERS: Visit Provider Obstetrics & Gynecology
DX: O41.00X0 Oligohydramnios, unspecified trimester, not applicable or unspecified (principal); Z3A.00 Weeks of gestation of pregnancy not specified
CPT/HCPCS: 96372; J0702

== ENCOUNTER 2024-11-28 01:50 | Outpatient (OUT) | payer OTHER, SELFPAY ==
--- NOTE | 2024-11-28 | US_ITS ---
[address] [address] Patient Name: LUCILA JAMES MRN: [id number] date: 1990 Sex: F Assigned Patient Location: [facility] Current Patient Location: [facility] Accession/Order Number: [id number] Exam Date: 11/28/2024 22:45 Report Date: 11/28/2024 22:46 At the request of: BRYAN BALDERRAMA DO Procedure: US OB BPP w non-stress Biophysical profile. Reason for exam: IUD in place with current . COMPARISON: BPP 11/21/2024. TECHNIQUE: Transabdominal imaging of the gravid uterus was obtained. FINDINGS: The automated equipment engineer technician reports a BPP of 8 out of 8. ISAIAH 5.7 cm heart rate 141bpm. US/US OB BPP w non-stress IMPRESSION: BPP 8 out of 8. Low ISAIAH. Impression dictated by: Haile Palacio Jr., D.O.11/28/2024 10:46 PM Dictation Location: [email or web address] Electronically authenticated by: [id number] Y Date: 11/28/2024 22:46
--- OUTSIDE RECORDS SUMMARY | 2024-11-28 01:54 | XMS_ITS | CCD ---
Author Organization [facility] Care Team Providers Care Director Of Informatics Name Role Phone Yesica Khan Primary Care Provider [phone] ROCÍO GONZALEZ Referring Unavailable YESICA KHAN Primary Care Unavailable ROCÍO GONZALEZ Referring Unavailable YESICA KHAN Primary Care Unavailable DENISE TAYLOR Referring Unavailable Edgardo MAJANO, Audra Burns Attending Sravanthi Patel MD, Alec Sethi Attending Charles MAJANO, Audra Burns Attending Sravanthi shell NON STAFF Primary Care Provider UnavailMD Santa Whiteside II Attending Provider MD Maurizio Mast Attending Provider [phone] NO FAMILY, PHYSICIAN Primary Care Provider Unava MD Santa Negron II Referring Provider MD Santa Estrada II Attending Provider [phone] NON STAFF Primary Care Provider Unavailabl e NON STAFF Primary Care Unavailable Santa Estrada II Attending UnavailSanta Whiteside II Admitting Unavailabl e Santa Estrada II Admitting Unavailabl e NON STAFF Primary Care Unavailable Santa Estrada II Attending Unavailabl e Santa Estrada II Admitting Unavailabl e NON STAFF Primary Care Unavailable Santa Estrada II Attending Unavailabl e NON STAFF Primary Care Unavailable Santa Estrada II Attending UnavailSanta Whiteside II Admitting UnavailMaurizio Farley Admitting Unavailable Maurizio Mast Attending Unavailable Santa Estrada II Admitting Unavailabl e NON STAFF Primary Care Unavailable Santa Estrada II Attending Unavailabl e NO FAMILY, PHYSICIAN Primary Care Unavailable Santa Estrada II Admitting Unavailabl Santa Heller II Attending UnavailSanta Whiteside II Referring Unavailnikolay e Unallocated Haley MURGUIA Provider Primary Care Provi sharla Tai GUSMAN, Victor M Worley Unavailable NON STAFF Primary Care Provider UnavailMD Santa Whiteside II Attending Provider [phone] ATTILA, CATRACHITO R Referring Unavailable PCP, NOT IN SYSTEM Primary Care Unavailable LEXI ROBERTSON Attending Unavailable AILYN LEXI Referring Unavailable PCP, NOT IN SYSTEM [...] NOT IN SYSTEM Primary Care Unavailable Unallocated Haley MURGUIA Provider Primary Care Provi sharla SANTA ESTRADA Referring Unavaila ble PCP, NOT IN SYSTEM Primary Care Unavailable [facility] Referring Unavailable PCP, NOT IN SYSTEM Primary Care Unavailable ATTILA, CATRACHITO R Referring Unavailable PCP, NOT IN SYSTEM Primary Care Unavailable Pcp, Not In System Primary Care Provider Unavail able Peter Booth Attending Unavailable Provider, None Primary Care Unavailable Homer, Audra M Admitting Unavailable Homer, Audra M Attending Unavailable Provider, None Primary Care Unavailable Provider, None Primary Care Unavailable Maurizio Mast Admitting Unavailable Maurizio Mast Attending Unavailable Juliano Peterson Unavailable Homer, Audra M Admitting Unavailable Homer, Audra M Attending Unavailable Provider, None Primary Care Unavailable Homer, Audra M Attending Unavailable Provider, None Primary Care Unavailable Homer, Audra M Admitting Unavailable KINDL ALEC F Admitting Unavailable KINDL ALEC F Attending Unavailable Provider, None Primary Care Unavailable Provider, None Primary Care Unavailable Randy Walker Admitting Unavaila ble Randy Walker Attending Unavaila ble Peter Booth Attending Unavailable Provider, None Primary Care Unavailable ATTILA, CATRACHITO Attending Unavailable ATTILA, CATRACHITO Attending Unavailable GENEVIEVE DONOVAN Attending Unavailable ATTILA, CATRACHITO Attending Unavailable SANDRITA BOWERS Referring Unavailable SANDRITA BOWERS Attending Unavailable SANDRITA BOWERS Attending Unavailable SANDRITA BOWERS Attending Unavailable VICTOR M LUJAN Attending Unavailable VICTOR M LUJAN Referring Unavailable VICTOR M LUJAN Attending Unavailable CATRACHITO AIKEN Attending Unavailable CATRACHITO AIKEN Attending Unavailable Allergies Allergy Classification Reported Allergen(s) Allergy Type Date of Onset Reaction(s) Facility Magnesium (1 source) Magnesium Drug Allergy 4 [facility] NSAIDs (1 source) Ibuprofen Drug Allergy 4 [facility] Potassium (1 source) Potassium Drug Allergy 4 [facility] (2 sources) Magnesium-Conta ining Compounds Propensity to adverse reactions to drug 9 [place], [place] (20 sources) Ibuprofen; Translations: [ibuprofen] Drug Allergy 9 [place], [place] (1 source) Potassium-Conta ining Compounds Propensity to adverse reactions to drug 0 [place], [place] (1 source) ALLERGIES NOT ON FILE; Translations: [ALLERGIES NOT ON FILE] Propensity to adverse reactions (disorder) [facility] Repository (20 sources) Magnesium; Translations: [magnesium] Drug Allergy 2 [facility] (20 sources) Potassium; Translations: [potassium] Drug Allergy 3 [facility] (9 sources) Contrast media Allergy to substance 4 [facility] (6 sources) NSAIDS (Non-Steroidal Anti-Inflamma Allergy to substance 4 [facility] (1 source) Ibuprofen Drug Allergy 4 [facility] Repository (20 sources) Non-steroidal anti-inflammato ry agent Drug Allergy 3 [facility] Healthcare Work Phone: (20 sources) Amoxicillin-Pot Clavulanate Drug Intolerance 1 [facility] (20 sources) Amoxicillin; Translations: [AMOXICILLIN] Drug Allergy 4 [facility] Repository (11 sources) NSAIDs; Translations: [NSAIDS (NON-STEROIDAL ANTI-INFLAMMATO RY DRUG)] Propensity to adverse reactions to drug (disorder) 2 Hives [facility] Repository (20 sources) Potassium Chloride; Translations: [POTASSIUM CHLORIDE] Drug Allergy 2 Hives [facility] Repository (14 sources) Iodinated Contrast Media Drug Intolerance 4 [...] times daily 90 March 18, 2024 12:00am Calcium Citrate (20 sources) Calcium Citrate 150 MG capsule Orally Active CALCIUM CITRATE ORAL Take by mouth. Active cholecalciferol 0.025 mg oral capsule (17 sources) Vitamin D Start: 03-18-2024 take 25 [...] mouth Daily 08/12/2024 Discontinued (Therapy completed) levonorgestrel 0.180482 mg/hr intrauterine system (2 sources) Progestin, Progestin-containing [...] Daily April 15, 2024 12:00am Multivitamin preparation (9 sources) multivitamin (MULTIPLE VITAMINS DAILY ORAL) Take by mouth. Active Kopperl (No Known Home Meds) (4 sources) Start: 2019 Kopperl (No Known Home Meds) Active November 14, 2019 1:00am ondansetron 4 mg oral tablet (20 sources) Serotonin-3 Receptor Antagonist Start: 2023 take [...] BED docusate sodium 50 mg / sennosides, penitentiary 8.6 mg oral tablet (6 sources) Start: [...] August 30, 2017 12:44pm polyethylene glycol 3350 69743 mg powder for oral solution (6 sources) [...] attack] Onset: 0 01-05-2020 Chronic Esophageal disorders (10 sources) Gastroesophageal reflux disease without esophagitis; Translations: [...] current use of drug therapy; Translations: [Other intermission coordinator (current) drug therapy] 03-12-2024 Episodic Other complications of (1 source) Obesity complicating , second trimester; Translations: [Obesity complicating , second trimester] Onset: 4 Chronic Other complications of (1 source) Obesity complicating , unspecified trimester; Translations: [Obesity complicating , unspecified trimester] Onset: 4 Chronic Other complications of (5 sources) Maternal obesity complicating , childbirth and the puerperium, antepartum; Translations: [Obesity complicating , second trimester] Onset: 4 07-05-2024 Chronic Other complications of (2 sources) Retained intrauterine [...] status] Onset: 4 Episodic Other gastrointestinal disorders (5 sources) History of bypass of stomach; Translations: [Bariatric surgery status] Onset: 4 09-04-2024 Episodic Other lower respiratory disease (13 sources) Dyspnea; Translations: [Dyspnea, unspecified] 09-06-2023 Episodic Other non-traumatic joint disorders (20 sources) Loose body in joint; Translations: [Loose body in unspecified joint] Onset: 3 04-20-2023 Chronic Other nutritional; endocrine; and metabolic disorders (10 sources) Morbid obesity; Translations: [Morbid (severe) obesity [...] nutritional; endocrine; and metabolic disorders (9 sources) Body mass index 40+ - severely [...] maxillary sinusitis, unspecified] Onset: 3 Episodic Previous (5 sources) Maternal care for unspecified type scar [...] contraceptive device] 05-30-2024 Episodic Malaise and fatigue (9 sources) Fatigue; Translations: [Other fatigue] Onset: 04-18-2016 04-18-2016 Episodic Other aftercare (1 source) Other fpc (current) drug therapy; Translations: [Other fpc (current) drug therapy] Onset: 03-12-2024 Episodic Other complications of (20 sources) Retained intrauterine contraceptive device in ; Translations: [Retained intrauterine contraceptive device in , first trimester] Onset: 05-24-2024 05-24-2024 Episodic Other complications of (20 sources) Uncertain [...] Name Value Interpretation Reference Range Facility AMNISUREon 11-25-2024 [facility] AMNISURE Negative NEGATIVE [facility] OB BPP W NON-STRESS on 11-25-2024 [place] [address] Ultrasound Report Signed Patient: LUCILA JACQUES MR#: [id number] : 1990 Acct:[id number] Age/Sex: 34 / F ADM Date: 11/25/24 Loc: US Attending Dr: Catrachito Aiken D.O. Ordering Physician: Catrachito Aiken D.O. Date of Service: 11/25/24 Procedure(s): US OB BPP w non-stress Accession Number(s): [id number] cc: Catrachito Aiken D.O.; Physician,Non-Staff MChristie The [address] [address] Patient Name: LUCILA JACQUES MRN: [facility]:[id number] date: 1990 Sex: F Assigned Patient Location: [facility] Current Patient Location: [facility] Accession/Order Number: [id number] Exam Date: 11/25/2024 16:14 Report Date: 11/25/2024 16:15 At the request of: CATRACHITO AIKEN DO Procedure: US OB BPP w non-stress Biophysical profile. Reason for exam: IUD in place with current . COMPARISON: BPP 11/21/2024. TECHNIQUE: Transabdominal imaging of the gravid uterus was obtained. FINDINGS: The video presentation operator reports a BPP of 8 out of 8. ISAIAH 6.7 cm heart rate 140 bpm. US/US OB BPP w non-stress IMPRESSION: BPP 8 out of 8. Impression dictated by: Haile Palacio Jr., D.O.11/25/2024 4:15 PM Dictation Location: [place] [address] Electronically authenticated by: [id number] Y Date: 11/25/2024 16:15 Dictated By: Haile Palacio M.D. Signed By: 11/25/248 DD/ 14 TD/TT: Consignee: [facility] Radiology, Radiologi MD kevin - 11/25/2024 [place] [address] Ultrasound Report Signed Patient: LUCILA JACQUES MR#: [id number] : 1990 Acct:[id number] Age/Sex: 34 / F ADM Date: 11/25/24 Loc: US Attending Dr: Catrachito Aiken D.O. Ordering Physician: Catrachito Aiken D.O. Date of Service: 11/25/24 Procedure(s): US OB BPP w non-stress Accession Number(s): [id number] cc: Catrachito Aiken D.O.; Physician,Non-Staff Farhat The [place] [address] Patient Name: LUCILA JACQUES MRN: [facility]:[id number] date: 1990 Sex: F Assigned Patient Location: [facility] Current Patient Location: [facility] Accession/Order Number: [id number] Exam Date: 11/25/2024 16:14 Report Date: 11/25/2024 16:15 At the request of: CATRACHITO AIKEN DO Procedure: US OB BPP w non-stress Biophysical profile. Reason for exam: IUD in place with current . COMPARISON: BPP 11/21/2024. TECHNIQUE: Transabdominal imaging of the gravid uterus was obtained. FINDINGS: The video presentation operator reports a BPP of 8 out of 8. ISAIAH 6.7 cm heart rate 140 bpm. US/US OB BPP w non-stress IMPRESSION: BPP 8 out of 8. Impression dictated by: Haile Palacio Jr., D.O.11/25/2024 4:15 PM Dictation Location: [place] [address] Electronically authenticated by: [id number] Y Date: 11/25/2024 16:15 Dictated By: Haile Palacio M.D. Signed By: 11/25/241617 DD/ 14 TD/TT: Consignee: [facility] Radiology Study observation (narrative) [facility] US OB BPP W NON-STRESS Ordered By: Radiologist Radiology on 11-25-2024 [facility] Work Phone: AMNISUREon 11-21-2024 [facility] AMNISURE Negative NEGATIVE [facility] No Panel InformationOrdered By: Radiologist Radiology on 11-21-2024 [facility] Work Phone: No Panel Informationon 11-21 Radiology Study observation (narrative) [facility] US OB BPP W NON-STRESS on 11-21-2024 [place] [address] Ultrasound Report Signed Patient: LUCILA JACQUES MR#: [id number] : 1990 Acct:[id number] Age/Sex: 34 / F ADM Date: Loc: [place] [address]: Catrachito Aiken D.O. Ordering Physician: Catrachito Aiken D.O. Date of Service: 11/21/24 Procedure(s): US OB BPP w non-stress Accession Number(s): [id number] cc: Catrachito Aiken D.O.; Physician,Non-Staff Farhat The [place] [id number] Patient Name: LUCILA JACQUES MRN: [id number] date: 1990 Sex: F Assigned Patient Location: [facility] Current Patient Location: Accession/Order Number: [id number] Exam Date: 11/21/2024 18:27 Report Date: 11/21/2024 [...] Ruddy Esquivel M.D.11/21/2024 6:32 PM Dictation Location: [place] [address] Electronically authenticated by: [id number] Y Date: 11/21/2024 18:32 Dictated By: Ruddy Esquivel M.D. Signed By: 11/21/241834 DD/ 31 TD/TT: Consignee: [facility] Radiology, Radiologi MD kevin - 11/21/2024 [place] [address] Ultrasound Report Signed Patient: LUCILA JACQUES MR#: [id number] : 1990 Acct:[id number] Age/Sex: 34 / F ADM Date: Loc: [facility] 250-[address]: Catrachito Aiken D.O. Ordering Physician: Catrachito Aiken D.O. Date of Service: 11/21/24 Procedure(s): US OB BPP w non-stress Accession Number(s): [id number] cc: Catrachito Aiken D.O.; Physician,Non-Staff Farhat [address] [address] Patient Name: LUCILA JACQUES MRN: [id number] date: 1990 Sex: F Assigned Patient Location: [facility] Current Patient Location: Accession/Order Number: [id number] Exam Date: 11/21/2024 18:27 Report Date: 11/21/2024 [...] Ruddy Esquivel M.D.11/21/2024 6:32 PM [facility] by: [id number] Y Date: 11/21/2024 18:32 Dictated By: Ruddy Esquivel M.D. Signed By: 11/21/241834 DD/ 31 TD/TT: Consignee: [facility] US OB GROWTHon 11-21-2024 [place] [address] Ultrasound Report Signed Patient: LUCILA JACQUES MR#: [id number] : 1990 Acct:[id number] Age/Sex: 34 / F ADM Date: Loc: [facility] 250-[address]: Catrachito Aiken D.O. Ordering Physician: Catrachito Aiken D.O. Date of Service: 11/21/24 Procedure(s): US OB growth Accession Number(s): [id number] cc: Catrachito Aiken D.O.; Physician,Non-Staff MChristie [place] [address] Patient Name: LUCILA JACQUES MRN: [id number] date: 1990 Sex: F Assigned Patient Location: [facility] Current Patient Location: Accession/Order Number: [id number] Exam Date: 11/21/2024 18:27 Report Date: 11/21/2024 [...] Ruddy Esquivel M.D.11/21/2024 6:32 PM Dictation Location: [place] [address] Electronically authenticated by: [id number] Y Date: 11/21/2024 18:32 Dictated By: Ruddy Esquivel M.D. Signed By: 11/21/241834 DD/ 31 TD/TT: Consignee: [facility] Radiology, Radiologrodriguez brown MD - 11/21/2024 [place] [address] Ultrasound Report Signed Patient: LUCILA JACQUES MR#: [id number] : 1990 Acct:[id number] Age/Sex: 34 / F ADM Date: Loc: [facility] 250-[address]: Catrachito Aiken D.O. Ordering Physician: Catrachito Aiken D.O. Date of Service: 11/21/24 Procedure(s): US OB growth Accession Number(s): [id number] cc: Catrachito Aiken D.O.; Physician,Non-Staff Farhat [facility] [place] [id number] Patient Name: LUCILA JACQUES MRN: [facility]:[id number] date: 1990 Sex: F Assigned Patient Location: [facility] Current Patient Location: Accession/Order Number: [id number] Exam Date: 11/21/2024 18:27 Report Date: 11/21/2024 [...] Ruddy Esquivel M.D.11/21/2024 6:32 PM Dictation Location: [employer] Electronically authenticated by: [id number] Y Date: 11/21/2024 18:32 Dictated By: Ruddy Esquivel M.D. Signed By: 11/21/241834 DD/ 31 TD/TT: Consignee: [facility] Urinalysis macro (dipstick) panel (U)on 11-21-2024 Bilirubin, UA Positive Negative - 4(70) +++ mg/dL [facility] Comment on above: small Blood, UA Negative Negative - 50 Asif/mcL [facility] Clarity, UA Clear [facility] Color, UA Bib[place] [facility] Glucose, UA Negative Negative - 2000(110) ++++ mg/dL [facility] Interpretation and review of laboratory results Abnormal [facility] Ketones, UA Positive Negative - 160(16) ++++ mg/dL [facility] Comment on above: trace Leukocytes, UA Negative Negative - 500+++ Shivani/mcL [facility] Nitrite, UA Negative Negative - Positive [facility] pH, UA 5.5 5 - 9 [facility] Protein, UA Positive Negative - 2000(20) ++++ mg/dL [facility] Comment on above: 30 Spec Grav, UA 1.03 1 - 1.03 [facility] Urobilinogen, UA 1.0 0.2 - 12 mg/dL [facility] Coding Summaryon 11-11-2024 Coding Summary HTMLBase 64 DdndadnwZJt5gUi+PGhlYWQ+PE1 NRGKjC21pgHKolS7eT8BUMYgICg rdSAFNUQxNVbDforEiWB1bdXFvE XJu IC8+JC7nNFOdDttqoBWvy5B6vCK 0Z13ium7yNCxdbLI1WJRmFuEmwa ank2ixlOn6SEfwBvdvKhNv TKWrpG00ZEY2bN45Ai67bUSouBQ rw6tecZp5NqVlCSPiQSH9oYmeLH rpa4TvDXBkB14znITeq1J6 UBFdrYwpkZYlByQdpFR8fT6uCDz ieymdk9cdcymxOly4bv39fVRln3 U5zOD1E5EnvsZ4YPJfvDZg WyffwOFVaF9rnymjz2fgpkqxOeJ dTKWpVWf7GYl7XWSbzQsbEqRyFC 96IFR5XNXtbqCoZ7LlDWEt iYvlGeL0j1V9Da3JS3QSZncgL9D NTUFSWTwvdGQ+RS34cu05Q9SxTv uzQta9DZElYZA2cBU5iA5c WEVaPMdjk8R2lJR9I1ZylaXhhp0 mi7taZNTsWHmnV07kgNKsd5Z6IJ AtsBN0JTRhdAdePeHfhB92 Oyc+CKWzuPelf6DwAvwim9nww3j zsNp8BwlfXUZduhNamShjTSW5n5 XfOe2mVGTopGW1lJN5dC7j WnWvXeZ7WDkkQ893IyDorBBeTkk rA15aJ8IyqVE+AHEfAdj2LYDteL pmFK1xG6AiSEGmikhwhFDf zZoiCI8nUFVovpxvYKFmiT6dYEE mN7x0EpPcLhS6EIkbH5OdPFFkzq snHj29wN3lJhDtQyW3ZMwj Z4VooyP0XNNoqZGdFLhsXBH6R90 rj3X4LKGsTHNwQGN8cSP1qA1riQ lnbjogbGVmdDsgdmVydGlj NRkpXGlnB372VRAfnXxvQfZaVXs uZyBEYXRlOiAgMDIvMTcvMjAyNT wvdGQ+GUSiGAC2nHmoDUWk nFPqTEosJe9gwOsziVqbGC7yAMH lvesfSZJnrV9lONSkeXIyvUjnHI 7qPBAukmxrn336ZxDyCDV0 FLNyfRXjL5ChnU2xTtTuIYPhEEM jJ9KcpYPaTLueZ833KSglYsM1DQ WhooFpP6XpCCTvtGqdOuM8 w3Y9Kv9Os9UgytzvW2KqkCFtOcY zOmbdRQp6Q4FxYkhtyRO+PC90YW GgJA80LRo6AGS6rYfmNIac JNGlH7XnzY3xYnXjENTdZWMhSlw +PHRhYmxlIHdpZHRoPScxMDAlJy SwdEsyTR4zJl8fLCHnGZRy yWfteTPiIjFzw8jqUCDpDXtwFU8 exVzoB8KfvGP6OGHdi1o6Ys41T1 6yZ2CfnQB+OIGryKZ4cVB0 bG0wByWzIeN8FUawR078DhNtpRU pLjdtp1bkk2sxbLj4KzH5UXJsyf BbaJdaQBW4s1TeHc68T43y IHdpZHRoPSIxNSUiIHZhbGlnbj0 esY9jEa6+IBXirLC8oCB3nH3wVs ObXuQ4TIjdA071PfXkpCYs Ijhcp0isu6yeoTw5CxXgDFQzboT soYnjRAA2s3WwPr08A3YdiPtnz6 TmHgo1dd92dKOfz1T7sCV8 X7FtQPVdcgvcyGYwfTfdWS1jLYB skyqvQCSuwQ0gCILiR6z5EqCxSj Q9DCotC1CmoiM7EOHinTBk XXGfdLNNzV5zmvhlx8nqpujjKqS bPSJgYSf5NNd7SWMlqLmhMoQbXC B2PbN8YGH2jSMkgV5hbWvr zfsomQ8mZup+ZDG8oZTpxBSPUZ0 lOjwvdGQ+WUQoHLK4aEpcAEmhDJ JjtC8iSEWwF5u9YwBdPrR0 KWwlB8WuobR2AOFtyCKzCMQgaIB YrT8ybxnrt7xvmnsqHbQxCRCiXC e3MYh2QNVkaZwiZhErHGP9 JvJ8XVV0aZPljA9gdNncztkrpZ0 wOyc+QptgxSazMDQ1NOc6T3HjSf x3POZnfZucUH7ueUJmILcf Di6ycYspyXiyVL2zDYRkeedcw32 6UnTjo1mmWWKnrUXcIRrcXJE9M9 4xz9G9JNXbDSJsYZY9xWO1 gH8oqRhqzhqewIPiaLwjieQlnFu cDZvfMSohC993LKVsbWzxMvVxZI m7W0NqMih3PJHixOifCO7t jKXxCKbqCt9vuUmjpAkeHY5tLUO uuhrgs424ZzTit0jeZFQflTAxKY xuRAG3F53tp6A6KCMuXLDg IHF9gER8bK5iyMocaakefSLtsWf gvqEzzHnnILzhWBxxE492EVZbwM ecEqEwrDg7G2LsDiv9DBLc rXswBN1elNQnSLigXi4xbAohwQl kLW0vDOIgoopkr270CpNnv8ayQT YayNZvOWonWNZ5U33km1F1 ZUIyNGBqJHY7zHM8xL2uyObyuze gbGVmdDsgdmVydGljYWwtYWxpZ2 46IHRvcDsnPlBhdGllbnQg GRssXQb4O3QcWcqnkBJ+XQ14KNM fMD71mTHcnRIlg3gosTl2UjFtDE AjHFZ3cOtjOVsia2IyQCOy R32tsXXab5X3DYUlxJgesNXcEkU jhKE2sA1bUCytgtrfp9wsanwhSd aew4bnqx54gQ67H87pMHuk TVRuUQOuSRWsDVIkrRlokb7huM2 wIi8+XHZhwPI5iJB9tB6cXBEyKx M8TEftE703GpAxaOWeNfcl i4aui5mwmZp0ZuP5VFVizkAoxPy wSDJ4z1UeAb45P82jHIhnRXSyCI SrVRNcRCUybRhpmi6ngM2b Ii8+VELvlIB3xPN3rS8yTwXnUkM 3PYcsF818GyVjfUAaWggeJ97pM1 JvdXA+XDRjMlh2CZTpfYuo CT9bcUGrPPlwZp0kPNB0HaBvScO vRTljQ7YzYJChizbvdalefZF3WS TiCCEcyQ39Nk8giNcbDJSr aGVErS0otvcus3zmiiotZoUwAXN mDYj7AKz5DARlxNvjFpGiQZD6Xn L3CWF7iYCogJ0gfHzubddb jH0hN5KrRVFkdinhVw53dW8lTxY qBsW3BZhkIlm+TaBSJancT8GXDI uRGoTIQRE8I2MnVsq7MIQs mOtcVZ0kkMPgJBuaDq1ziCumdXp lPI4xBFBhgejqZAYbxJ8lVIQtqI WgwDbxAK8zSSCosqrot404 JqRaORJ1KTYwlZUdG0NhuL8wDhM wQLQeRSIeB0QhoXZmNAneB995NL uoIyJ0HQRoxuQpO5VbTRGn yFqvIvO7x8W7Im0mCX4qGv5rAVv 6QF38XA69pCMpp5T0lDS3U9NcOP WydiatcnrvcJF2FJQlJILu eW81xRBaDWxdPt0ex9Y7j291NGI sQTNelG70Il8jmQonDCFetMFCtI 6emxndd0dojqhbMxWmDQEb LVy2SHl2TIQqyUttNpHpOFS8UfN 0OWO0pJTlbY0zjNexvuxkqW5nCh c+UsWyEIGiaeG1Z2BwRni6 MXGlzMbwCI8gbNWzVIcyVh4izQz omNusOM9uFCNybtjzKVRoiJ6aPA RbyXGapIxzJS8vONRpgazb w331BoVaMFK9XEZdpNSiN5DdjZ9 aDoJjPDFkPJKwZ2DsvHPfRWmgM2 99SNjhYlR6IUSucsLiG6Wb JNUcrEonImK6p3J5Js7BPK0JVDH 2L0GmDwf3AONumQriXR4faYWxMR xiKe9uoBhqsDqwFY6xSVAi sepxENWpeT2gXYFmmPDevLanNH4 fXQRusxjsu288NrNlBOM2VZHhrJ MyN2QeqM9nAuSzMLSjLNOp Z4XzqPRwAFwrB861RUnsWcG8YGJ qdgSsF2OcSQDzbEdsVgQ8c9M3Hg 5PUDwvdGQ+UE07ft29B7Sg NhdiUit4HJFmOER2lJD8wS7kVJE jGRofe5D9eIV4E7QouzQzom7vg7 zhOILjVMckD46mnQZib9A3 VTSskCL4NCIydIksMoTibN06Pgk +XDSeuLtlr2NrNdyzu4qml5rwoI e5YiDaXAQnvfIfkRvcDZB5 v9RbWm99Y31eWOyqUMJaBIKjZXT lXDKgaHopso6blN7bEr1+PGNvbC U7rPV7iY1oLwYvThO6DQnb M063SnKphRZnCgmsy7tlw2aymEw 6XlYiQMTbneOuwLfmQIR0k7CrXh 71J5EodBjsv2YlNbg8dw23 dWDcv7N2wTB8Y3AzOMXlooajeYU etSmwDJ6lRDPlwkrvKZTthM2zBB UeJ7h6QjTeJgW2WQcfR5Cy fpO2MFZueKPzSKQhzBQTqR0hhih ys7annjvkEhEyYDEcBOj1NCd6PF GwmFnzSuSgJBS8MqU4AUW8 fYLfiO0tqNkdqxyyeE2gXhw+UGh 2k5pkiPHgQF6gnHB1WH91TM43lW Rrb4V9aKY6T4WkZGVurlcd ftjdxGP3VWNpBNOodO53Sw9ioKa zOa4kVXTdLGQ4HLEqbHImP4XsiD 9pNfWfKPHaWJLnT4WrcGFw HGhoW346LMzmQpT9CQEkozNvY9C aJXOskMrxTyO0x6Z6Bv8MNO71IE 30QF65kZUzo5W6jXT8S8Ij ULZocyrreigrbUB3ILDiRLCftZ5 0Ms8ioRttNi1hRSClVNL4IOEuuE CjR6NejO9lYlIlNNPpOKXl Y0OneYLfSGhnK002LCxxSgI4MPZ gseLdR0AcWFRcjZpxGvO3u3G2Xk 0SBz21IX31HC60yYMfo2G9 cCS1R2BfBJOpyjgpenbyuTE1WGM uBRLtoB84Uy7edWxxTc1tCQSoOS N5VLTcrMQjA7TecM8cJmRt BUNmVPBeY4QnzKXiZWklG372BXk aJdB8DFWzpyWbQ6TgLECztHqaJy G0e7O9Gi7PSHofyad5L3Ff PjwvdHI+KT22GENuAV92oGTjsCF oa6zyjRo0ZfOiFBShXDB7aDhwWA oax6EsFVFxK02roDUpv8U7 IGN (more content not included)... Normal [facility] Urinalysis macro (dipstick) panel (U)on 11-07-2024 Bilirubin, UA Positive Negative - 4(70) +++ mg/dL [facility] Comment on above: small Blood, UA Negative Negative - 50 Asif/mcL [facility] Clarity, UA Clear [facility] Color, UA Yellow [facility] Glucose, UA Negative Negative - 2000(110) ++++ mg/dL [facility] Interpretation and review of laboratory results Abnormal [facility] Ketones, UA Positive Negative - 160(16) ++++ mg/dL [facility] Comment on above: 40mg/dL Leukocytes, UA Negative Negative - 500+++ Shivani/mcL [facility] Nitrite, UA Negative Negative - Positive [facility] pH, UA 6 5 - 9 [facility] Protein, UA Positive Negative - 1999(20) ++++ mg/dL [facility] Comment on above: 30mg/dL Spec Grav, UA 1.025 1 - 1.03 [facility] Urobilinogen, UA 1.0 0.2 - 12 mg/dL [facility] ALL CBC WITH AUTO DIFFon BASOPHILS ABSOLUTE AUTO 0 [facility] Basophils/100 WBC (Bld) 0.3 % 0.2 - 2.0 % [facility] Eosinophils/100 WBC (Bld) 1.6 % 0.9 - 7.0 % [facility] Erythrocyte distribution width (RBC) [Ratio] 12.8 % 11.0 - 15.0 % [facility] Hematocrit (Bld) [Volume fraction] 33.8 % Low 36.0 - 48.0 % [facility] Hemoglobin (Bld) [Mass/Vol] 11.4 g/dL Low 12.0 - 16.0 g/dL [facility] IMMATURE GRANULOCYTES ABS AUTO 0.05 High [facility] Immature granulocytes/100 WBC (Bld) 0.5 % 0.0 - 0.5 % [facility] Interpretation and review of laboratory results Abnormal [facility] LYMPHOCYTES ABSOLUTE AUTO 1.9 [facility] Lymphocytes/100 WBC (Bld) 18.6 % Low 20.5 - 60.0 % [facility] MCH (RBC) [Entitic mass] 29.8 pg 26.7 - 34.0 pg [facility] MCHC (RBC) [Mass/Vol] 33.7 g/dL 29.9 - 35.2 g/dL [facility] MCV (RBC) [Entitic vol] 88.5 fL 81.0 - 99.0 fL [facility] MONOCYTES ABSOLUTE AUTO 0.9 High [facility] Monocytes/100 WBC (Bld) 8.6 % 1.7 - 12.0 % [facility] NEUTROPHILS ABSOLUTE AUTO 7.3 High [facility] Neutrophils/100 WBC (Bld) 70.4 % 43.0 - 75.0 % [facility] Platelet mean volume (Bld) [Entitic vol] 8.9 fL Low 9.5 - 13.5 fL [facility] TBH EO # 0.2 [facility] TB PLT 228 [facility] TB RBC 3.82 Low [facility] TBH WBC 10.4 [facility] Urinalysis macro (dipstick) panel (U)on 10-01-2024 Bilirubin, UA Negative Negative - 4(70) +++ mg/dL [facility] Blood, UA Negative Negative - 50 Asif/mcL [facility] Clarity, UA Clear [facility] Color, UA Yellow [facility] Glucose, UA Negative Negative - 1999(110) ++++ mg/dL [facility] Interpretation and review of laboratory results Abnormal [facility] Ketones, UA Positive Negative - 160(16) ++++ mg/dL [facility] Leukocytes, UA Negative Negative - 500+++ Shivani/mcL [facility] Nitrite, UA Negative Negative - Positive [facility] pH, UA 6.5 5 - 9 [facility] Protein, UA Negative Negative - 1999(20) ++++ mg/dL [facility] Spec Grav, UA 1.025 1 - 1.03 [facility] Urobilinogen, UA 1.0 0.2 - 12 mg/dL [facility] AFP, SERUM, OPEN SPINA BIFID Aon 08-14-2024 AFP MOM 1.32 . [facility] AFP VALUE 43.5 ng/mL . [facility] COMMENT: Comment . [facility] Comment on above: Irena Jones , Ph.D., [facility] Director References: Available Upon Request. Multiples Of Median Cutoffs For AFP Elevations Vela 2.5 Black 2.8 IDD 2.0 Twins 4.5 Abbreviation Definitions IDD - Insulin Dep Diabetes OSBR - Open Spina Bifida Risk For further inquiries contact [employer] at [phone]. This test was developed and its performance characteristics determined by [employer]. It has not been cleared or approved by the Food and Drug Administration. Performed at: [facility] [address], [place] [id number] Singe Winder: Hellen Hinson [facility], Phone: [phone] GEST. AGE ON COLLECTION DATE 18.1 . weeks [facility] GESTAT. AGE BASED ON Ultrasound . [facility] Comment on above: 18.1 on 08/12/2024 Recalculations are not recommended when gestational dating by LMP and ultrasound are within 10 days. INSULIN DEP DIABETES No . [facility] INTERPRETATION Comment . [facility] Comment on above: Interpretation: Scre en Negative [...] Customer Services to discuss available options. The [employer] recommends amniocentesis be offered to women age 35 and older. [age] [facility] MULTIPLE GESTATION No . [facility] OSBR RISK 1 [place] 4529 . [facility] RACE . [facility] RESULTS Report . [facility] TEST RESULTS: Negative . [facility] WEIGHT 239 . lbs [facility] N N ULTRASOUND [id number] 1 18 N 1 Y 239 N N N N N White/ [facility] Urinalysis macro (dipstick) panel (U)on 08-12-2024 Bilirubin, UA Negative Negative - 4(70) +++ mg/dL [facility] Blood, UA Negative Negative - 50 Asif/mcL [facility] Clarity, UA Clear [facility] Color, UA Yellow [facility] Glucose, UA Negative Negative - 2000(110) ++++ mg/dL [facility] Interpretation and review of laboratory results Abnormal [facility] Ketones, UA Positive Negative - 160(16) ++++ mg/dL [facility] Comment on above: trace Leukocytes, UA Negative Negative - 500+++ Shivani/mcL [facility] Nitrite, UA Negative Negative - Positive [facility] pH, UA 6 5 - 9 [facility] Protein, UA Negative Negative - 1999(20) ++++ mg/dL [facility] Spec Grav, UA 1.015 1 - 1.03 [facility] Urobilinogen, UA 0.2 0.2 - 12 mg/dL [facility] Urinalysis macro (dipstick) panel (U)on 07-16-2024 Bilirubin, UA Negative Negative - 4(70) +++ mg/dL [facility] Blood, UA Negative Negative - 50 Asif/mcL [facility] Clarity, UA Clear [facility] Color, UA Yellow [facility] Glucose, UA Negative Negative - 1999(110) ++++ mg/dL [facility] Interpretation and review of laboratory results Normal [facility] Ketones, UA Negative Negative - 160(16) ++++ mg/dL [facility] Leukocytes, UA Negative Negative - 500+++ Shivani/mcL [facility] Nitrite, UA Negative Negative - Positive [facility] pH, UA 5.5 5 - 9 [facility] Protein, UA Negative Negative - 1999(20) ++++ mg/dL [facility] Spec Grav, UA 1.03 1 - 1.03 [facility] Urobilinogen, UA 0.2 0.2 - 12 mg/dL [facility] BLOOD UREA NITROGENon 2023 Urea nitrogen [Mass/Vol] 9 mg/dL Normal 5-23 [facility] Comment on above: Performed By: #### C BCA, 3094-0, POCKET CLOSER, LIVR, 5193-8 #### [facility] ([id number]) [address], [address] [place] [address] CBC AND AUTO DIFFon 07-10-20 24 ABSOLUTE BASOPHIL 0.0 X10E9/L Normal 0.0-0.2 [facility] Comment on above: Performed By: #### C BCA, 3094-0, POCKET CLOSER, LIVR, 5198 #### [facility] ([id number]) [address], [address] [place] [address] ABSOLUTE NEUTROPHIL 5.1 X10E9/L Normal 1.5-6.6 [facility] Comment on above: Performed By: #### C BCA, 3094-0, POCKET CLOSER, LIVR, 519-8 #### [facility] ([id number]) [address], [address] [place] [address] Basophils/100 WBC (Bld) 0.6 % Normal [facility] Comment on above: Performed By: #### Joao BCA, 3094-0, POCKET CLOSER, LIVR, 5198 #### [facility] ([id number]) [address], [address] [place] [address] Eosinophils (Bld) [#/Vol] 0.1 10*3/uL Normal 0.0-0.4 [facility] Comment on above: Performed By: #### C BCA, 3094-0, POCKET CLOSER, LIVR, 5198 #### [facility] ([id number]) [address], [address] [place] [address] Eosinophils/100 WBC (Bld) 1.6 % Normal [facility] Comment on above: Performed By: #### Joao BCA, 3094-0, POCKET CLOSER, LIVR, 519-8 #### [facility] ([id number]) [address], [address] [place] [address] Erythrocyte distribution width (RBC) [Ratio] 13.1 % Normal 11.5-15.0 [facility] Comment on above: Performed By: #### C BCA, 3094-0, POCKET CLOSER, LIVR, 519-8 #### [facility] ([id number]) [address], [address] [place] [address] Hematocrit (Bld) [Volume fraction] 39.1 % Normal 35-47 [facility] Comment on above: Performed By: #### C BCA, 3094-0, POCKET CLOSER, LIVR, 5193-8 #### [facility] ([id number]) [address], [address] [place] [address] Hemoglobin (Bld) [Mass/Vol] 13.4 g/dL Normal 11.7-15.5 [facility] Comment on above: Performed By: #### C BCA, 3094-0, POCKET CLOSER, LIVR, 519-8 #### [facility] ([id number]) [address], [address] [place] [address] Lymphocytes (Bld) [#/Vol] 1.3 10*3/uL Normal 1.0-3.5 [facility] Comment on above: Performed By: #### C BCA, 3094-0, POCKET CLOSER, LIVR, 5193-8 #### [facility] ([id number]) [address], [address] [place] [address] Lymphocytes/100 WBC (Bld) 19.0 % Normal [facility] Comment on above: Performed By: #### C BCA, 3094-0, POCKET CLOSER, LIVR, 5193-8 #### [facility] ([id number]) [address], [address] [place] [address] MCH (RBC) [Entitic mass] 30.6 pg Normal 27-34 [facility] Comment on above: Performed By: #### C BCA, 3094-0, POCKET CLOSER, LIVR, 5193-8 #### [facility] ([id number]) [address], [address] [place] [address] MCHC (RBC) [Mass/Vol] 34.3 g/dL Normal 32-36 [facility] Comment on above: Performed By: #### C BCA, 3094-0, POCKET CLOSER, LIVR, 5193-8 #### [facility] ([id number]) [address], [address] [place] [address] MCV (RBC) [Entitic vol] 89 fL Normal 80-100 [facility] Comment on above: Performed By: #### Joao BCA, 3094-0, POCKET CLOSER, LIVR, 5192-8 #### [facility] ([id number]) [address], [address] [place] [address] Monocytes (Bld) [#/Vol] 0.5 10*3/uL Normal 0-0.9 [facility] Comment on above: Performed By: #### Joao BCA, 3094-0, POCKET CLOSER, LIVR, 5192-8 #### [facility] ([id number]) [address], [address] [place] [address] Monocytes/100 WBC (Bld) 6.7 % Normal [facility] Comment on above: Performed By: #### Joao BCA, 3094-0, POCKET CLOSER, LIVR, 5192-8 #### [facility] ([id number]) [address], [address] [place] [address] Neutrophils/100 WBC (Bld) 72.1 % Normal [facility] Comment on above: Performed By: #### Joao BCA, 3094-0, POCKET CLOSER, LIVR, 5192-8 #### [facility] ([id number]) [address], [address] [place] [address] Platelet mean volume (Bld) [Entitic vol] 7.9 fL Normal 7-12 [facility] Comment on above: Performed By: #### Joao BCA, 3094-0, POCKET CLOSER, LIVR, 5192-8 #### [facility] ([id number]) [address], [address] [place] [address] Platelets (Bld) [#/Vol] 232 10*3/uL Normal 150-450 [facility] Comment on above: Performed By: #### Joao BCA, 3094-0, POCKET CLOSER, LIVR, 5192-8 #### [facility] ([id number]) [address] [address] RBC COUNT 4.37 X10E12/L Normal 3.80-5.20 [facility] Comment on above: Performed By: #### C BCA, 3094-0, POCKET CLOSER, LIVR, 5193-8 #### [facility] ([id number]) [address] [address] WBC (Bld) [#/Vol] 7.0 10*3/uL Normal 4.0-11.0 [facility] Comment on above: Performed By: #### C BCA, 3094-0, POCKET CLOSER, LIVR, 5193-8 #### [facility] ([id number]) [address] [address] CREATININEon 07-10-2024 Creatinine [Mass/Vol] 0.54 mg/dL Normal 0.40-1.00 [facility] Comment on above: Result Comment: METH OD TRACEABLE TO IDMS STANDARD Performed By: #### C BCA, 3094-0, POCKET CLOSER, LIVR, 5193-8 #### [facility] ([id number]) [address] [address] eGFR (CKD-EPI) NON-RACE DEPENDENT >90 Normal >59 [facility] Comment on above: Result Comment: Reported eGFR is based on the CKD-EPI 2020 equation that does not use a race coefficient. Performed By: #### C BCA, 3094-0, POCKET CLOSER, LIVR, 5193-8 #### [facility] ([id number]) [address] [address] HBV surface Ab IA Qnon 07-10 Anti HBs quant. <8.00 Normal [facility] Comment on above: Result Comment: Vacc inated: >=12mIU/mL, Positive (Immune) Unvaccinated: <8mIU/mL, Negative (Not Immune) 8-11.99 mIU/mL: Indeterminate, (Considered Not Immune) Performed By: #### C BCA, 3094-0, POCKET CLOSER, LIVR, 5193-8 #### [facility] ([id number]) [address], [address] [place] [address] LIVER PANELon 07-10-2024 Albumin [Mass/Vol] 3.8 g/dL Normal 3.2-5.3 [facility] Comment on above: Performed By: #### C BCA, 3094-0, POCKET CLOSER, LIVR, 5193-8 #### [facility] ([id number]) [address], [address] [place] [address] ALP [Catalytic activity/Vol] 44 U/L Normal 39-130 [facility] Comment on above: Performed By: #### C BCA, 3094-0, POCKET CLOSER, LIVR, 5193-8 #### [facility] ([id number]) [address], [address] [place] [address] ALT [Catalytic activity/Vol] 11 U/L Normal 0-31 [facility] Comment on above: Performed By: #### C BCA, 3094-0, POCKET CLOSER, LIVR, 5193-8 #### [facility] ([id number]) [address], [address] [place] [address] AST [Catalytic activity/Vol] 16 U/L Normal 0-41 [facility] Comment on above: Performed By: #### C BCA, 3094-0, POCKET CLOSER, LIVR, 5193-8 #### [facility] ([id number]) [address], [address] [place] [address] Bilirubin [Mass/Vol] 0.5 mg/dL Normal 0.3-1.2 [facility] Comment on above: Performed By: #### C BCA, 3094-0, POCKET CLOSER, LIVR, 5193-8 #### [facility] ([id number]) [address], [address] [place] [address] Bilirubin.direct [Mass/Vol] 0.1 mg/dL Normal 0.0-0.4 [facility] Comment on above: Performed By: #### C BCA, 3094-0, POCKET CLOSER, LIVR, 5193-8 #### [facility] ([id number]) [address], [address] [place] [address] Protein [Mass/Vol] 6.5 g/dL Normal 6.0-8.0 [facility] Comment on above: Performed By: #### C BCA, 3094-0, POCKET CLOSER, LIVR, 5193-8 #### [facility] ([id number]) [address], [address] [place] [address] Unlisted Lab TestOrdered By: Jaci Atwood on 06-26-2024 [facility] TOTAL PROTEIN 24 HOUR UR INEon 06-21-2024 Protein (U) [Mass/Vol] 11.3 mg/dL [facility] - 11.9 mg/dL [facility] TOTAL PROTEIN 24 HOUR [facility] 101.7 [facility] TOTAL VOLUME 24 HOUR URINE 900 mL/24hr [facility] Urinalysis macro (dipstick) panel (U)on 06-19-2024 Bilirubin, UA Negative Negative - 4(70) +++ mg/dL [facility] Blood, UA Negative Negative - 50 Asif/mcL [facility] Clarity, UA Clear [facility] Color, UA Yellow [facility] Glucose, UA Negative Negative - 1999(110) ++++ mg/dL [facility] Interpretation and review of laboratory results Normal [facility] Ketones, UA Negative Negative - 160(16) ++++ mg/dL [facility] Leukocytes, UA Negative Negative - 500+++ Shivani/mcL [facility] Nitrite, UA Negative Negative - Positive [facility] pH, UA 5.5 5 - 9 [facility] Protein, UA Negative Negative - 1999(20) ++++ mg/dL [facility] Spec Grav, UA 1.020 1 - 1.03 [facility] Urobilinogen, UA 1.0 0.2 - 12 mg/dL [facility] ALL CBC WITH AUTO DIFFon BASOPHILS ABSOLUTE AUTO 0.0 [facility] Basophils/100 WBC (Bld) 0.4 % 0.2 - 2.0 % [facility] Eosinophils/100 WBC (Bld) 1.3 % 0.9 - 7.0 % [facility] Erythrocyte distribution width (RBC) [Ratio] 12.5 % 11.0 - 15.0 % [facility] Hematocrit (Bld) [Volume fraction] 36.9 % 36.0 - 48.0 % [facility] Hemoglobin (Bld) [Mass/Vol] 12.4 g/dL 12.0 - 16.0 g/dL [facility] IMMATURE GRANULOCYTES ABS AUTO 0.02 [facility] Immature granulocytes/100 WBC (Bld) 0.3 % 0.0 - 0.5 % [facility] Interpretation and review of laboratory results Abnormal [facility] LYMPHOCYTES ABSOLUTE AUTO 1.2 [facility] Lymphocytes/100 WBC (Bld) 17.0 % Low 20.5 - 60.0 % [facility] MCH (RBC) [Entitic mass] 29.9 pg 26.7 - 34.0 pg [facility] MCHC (RBC) [Mass/Vol] 33.6 g/dL 29.9 - 35.2 g/dL [facility] MCV (RBC) [Entitic vol] 88.9 fL 81.0 - 99.0 fL [facility] MONOCYTES ABSOLUTE AUTO 0.4 [facility] Monocytes/100 WBC (Bld) 6.0 % 1.7 - 12.0 % [facility] NEUTROPHILS ABSOLUTE AUTO 5.3 [facility] Neutrophils/100 WBC (Bld) 75.0 % 43.0 - 75.0 % [facility] Platelet mean volume (Bld) [Entitic vol] 10.0 fL 9.5 - 13.5 fL [facility] TBH EO # 0.1 [facility] TBH PLT 173 [facility] TB RBC 4.15 Low [facility] TBH WBC 7.1 [facility] XR knee LT 3V - NOT FOR ER U Yuriida 06-11-2024 XR knee LT 3V - NOT FOR ER USE [facility] [address] [place] [address] XRay Report Signed Patient: Lucila Jacques MR#: [id number] 33 : 1990 Acct:[id number] Age/Sex: 33 / F ADM Date: 06/11/24 Loc: [facility] Room: Type: [facility] Attending Dr: Santa Estrada II, [...] Vikki Rivers M.D.06/11/2024 2:26 PM Dictation Location: [facility]10 Transcribed By: [facility] 06/11/24 142 Dictated By: Vikki Rivers MD 06/11/241421 Signed By: 06/11/241425 Normal [facility] HCG ( test) Ql (U)o n 05-23-2024 Interpretation and review of laboratory results Abnormal [facility] Preg Test, Ur Positive Critical access hospital US OB < 14 WEEKS EARLYon US [...] on 04-29-2024 Amphetamines Ql (U) Negative Negative [facility] Barbiturates [Presence] in U rine by Screen methodOrdered By: Yusef Curran on 04-29-2024 Barbiturates Screen Ql (U) Negative Negative [facility] Benzodiazepines Screen Ql (U )Ordered By: Yusef Curran on 04-29-2024 Benzodiazepines Ql (U) Negative Negative [facility] Benzoylecgonine [Presence] i n Urine by Screen methodOrdered By: Yusef Curran on 04-29-2024 Benzoylecgonine Screen Ql (U) Negative Negative [facility] Cannabinoids [Presence] in U rine by Screen methodOrdered By: Yusef Curran on 04-29-2024 Cannabinoids Screen Ql (U) Negative Negative [facility] Comment on above: These are unconfirme d results and should not be used for legal purposes. Drug Cut-Off Concentration: AMPH 1000 ng/mL SILVIA 200 ng/mL DARLYN 200 ng/mL COCM 300 ng/mL OP 300 ng/mL PCP 25 ng/mL THC 20 ng/mL Drug Screen,Urineon 04-29-20 Amphetamine Screen,Urine Negative Normal Negative [facility] Comment on above: Performed By: #### A 1C WTH eA, ALB, [id number], HGB #### [address] #### NICOTINE #### [facility] , Barbiturate Screen,Urine Negative Normal Negative [facility] Comment on above: Performed By: #### A 1C WTH eA, ALB, [id number], HGB #### [place] [address] [place] #### NICOTINE #### [facility] , Benzodiazepines Screen,Urine Negative Normal Negative [facility] Comment on above: Performed By: #### A 1C WTH eA, ALB, [id number], HGB #### [address] #### NICOTINE #### [facility] , Cannabinoid Screen,Urine Negative Normal Negative [facility] Comment on above: Result Comment: Thes e are unconfirmed results and should not be used for legal purposes. Drug Cut-Off Concentration: AMPH 1000 ng/mL SILVIA 200 ng/mL DARLYN 200 ng/mL COCM 300 ng/mL OP 300 ng/mL PCP 25 ng/mL THC 20 ng/mL PERFORMED BY: [place] [address] PATHOLOGIST BACK TENDER CYLINDER GENO BENEDICT M.D. Performed By: #### A 1C WTH eA, ALB, [id number], HGB #### [place] [address] [place] #### NICOTINE #### [facility] , Cocaine Screen,Urine Negative Normal Negative [facility] Comment on above: Performed By: #### A 1C WTH eA, ALB, [id number], HGB #### [place] [address] [place] #### NICOTINE #### [facility] , Opiate Screen,Urine Negative Normal Negative [facility] Comment on above: Performed By: #### A 1C WTH eA, ALB, [id number], HGB #### [place] [address] [place] #### NICOTINE #### [facility] , Phencyclidine Screen,Urine Negative Normal Negative [facility] Comment on above: Performed By: #### A 1C WTH eA, ALB, [id number], HGB #### [address] #### NICOTINE #### [facility] , HCG ( test) IAandre d Ql (U)Ordered By: Yusef Curran on 04-29-2024 HCG ( test) Ql (U) Negative [facility] HCG,Urineon 04-29-2024 Beta HCG ( test) Ql (U) Negative Normal [facility] Comment on above: Result Comment: PERF ORMED BY: [place] [address] PATHOLOGIST BACK TENDER CYLINDER GENO BENEDICT M.D. Performed By: #### U HCG #### [address] [place] 04-29-2024 L Specimen: [id number] Received: 04/29/24 Status: MICHAEL Req Num: [id number] Spec Type: Surgical Subm Dr: Santa Estrada MD Tissues: A Joint/Knee (LT KNEE) Procedures: HE, Gross/Micro L4, Decalcification Age/ Patient Sex Location Account Attending Physician Lucila Jacques 33/F [place] [id number] Santa Estrada MD SPEC NUM: [id number] RECD: 04/29/24 STATUS: MICHAEL YOUNG NUM: [id number] NIELS: 04/29/24 DR: Santa Estrada MD ENTERED: 04/29/24 [facility] DR: SPEC TYPE: Surgical DEPT: S ORDERED: [...] no sections are submitted. TW CPT Codes 83485 Specimen: [id number] Received: 04/29/24 Status: MICHAEL Young Num: [id number] Spec Type: Surgical Subm Dr: Santa Estrada MD Tissues: A Joint/Knee (LT KNEE) Procedures: VIKASH, Gross/Micro L4, Decalcification Patient: Lucila Jacques [id number] (Continued) Specimen: [id number] Received: 04/29/24 (Continued) Signed (signature on file) Jamia Trevizo MD 05/07/24 0973 Specimen: [id number] Received: 04/29/24 Status: MICHAEL Young Num: [id number] Spec Type: Surgical Subm Dr: Santa Estrada MD Tissues: A Joint/Knee (LT KNEE) Procedures: VIKASH, Gross/Micro L4, Decalcification Patient: Lucila Jacques [id number] (Continued) Specimen: [id number] Received: 04/29/24 (Continued) BONE AND TISSUE Specimen: [id number] Received: 04/29/24 Status: MICHAEL Young Num: [id number] Spec Type: Surgical Subm Dr: Santa Estrada MD Tissues: A Joint/Knee (LT KNEE) Procedures: HE, Gross/Micro L4, Decalcification Patient: Lucila Jacques [id number] (Continued) Signed (signature on file) Jamia Trevizo MD 05/07/24 1703 Normal [facility] Opiates [Presence] in Urine by Screen methodOrdered By: Yusef Curran on 04-29-2024 Opiates Screen Ql (U) Negative Negative [facility] Phencyclidine Screen Ql (U)O rdered By: Yusef Curran on 04-29-2024 Phencyclidine Ql (U) Negative Negative [facility] XR knee LT 2Von 04-29-2024 XR knee LT 2V [facility] [facility] Main [address] [address] XRay Report Signed Patient: Lucila Jacques MR#: [id number] 33 : 1990 Acct:[id number] Age/Sex: 33 / F ADM Date: 04/29/24 Loc: [place] Room: Type: [facility] Attending Dr: Santa Estrada II, MD [...] Harmeet Lopez M.D.04/29/2024 2:44 PM Dictation Location: [place] [address] Transcribed By: [facility] 04/29/24 1444 Dictated By: Harmeet Lopez DO 04/29/24 1443 Signed By: 04/29/24 1444 Normal [facility] XR tibia fibula LT 2V*on XR tibia fibula LT 2V* [facility] [address] [place] [address] XRay Report Signed Patient: Lucila Jacques MR#: [id number] [birth year] : 1990 Acct:[id number] Age/Sex: 33 / F ADM Date: 04/19/24 Loc: [facility] Room: Type: [facility] Attending Dr: Santa Estrada II, MD Copies to: Santa Estrada MD Ordering Provider: Santa Estrada MD Date of Service: 04/19/24 XR/XR tibia fibula LT 2V*: M17.12 - Unilateral primary osteoarthritis, left knee ([id number]) XR/XR femur LT 2V*: M17.12 - Unilateral [...] Harmeet Lopez M.D.04/19/2024 9:52 AM Dictation Location: [place] [address] Transcribed By: [facility] 04/19/24951 Dictated By: Harmeet Lopez DO 04/19/2450 Signed By: 04/19/24951 Normal [facility] Cytology Cervical or vaginal smear or scraping studyon 04-16-2024 [facility] Automated basophil %Ordered By: Santa Estrada on 04-15-2024 Basophils/100 WBC (Bld) 0.7 % . [facility] Comment on above: Performed By: #### B MP, CBC #### [address] #### NICOTINE, FRUC #### [facility] , Automated basophil countOrde red By: Santa Estrada on 04-15-2024 Basophils (Bld) [#/Vol] 0.0 10*3/uL 0.0-0.2 [facility] Comment on above: Result Comment: PERF ORMED BY: [place] [address] PATHOLOGIST BACK TENDER CYLINDER GENO BENEDICT M.D. Performed By: #### B MP, CBC #### [facility] [address] [place] [address] [place] #### NICOTINE, FRUC #### [facility] , Automated blood monocyte cou ntOrdered By: Santa Estrada on 04-15-2024 Monocytes (Bld) [#/Vol] 0.3 10*3/uL 0.0-0.8 [facility] Comment on above: Performed By: #### B MP, CBC #### [place] [address] [place] #### NICOTINE, FRUC #### [facility] , Automated eosinophil %Ordere d By: Santa Estrada on 04-15-2024 Eosinophils/100 WBC (Bld) 3.0 % . [facility] Comment on above: Performed By: #### B MP, CBC #### [place] [address] [place] #### NICOTINE, FRUC #### [facility] , Automated eosinophil countOr dered By: Santa Jacksonisle on 04-15-2024 Eosinophils (Bld) [#/Vol] 0.1 10*3/uL 0.0-0.45 [facility] Comment on above: Performed By: #### B MP, CBC #### [place] [address] [place] #### NICOTINE, FRUC #### [facility] , Automated monocyte %Ordered By: Santa Estrada on 04-15-2024 Monocytes/100 WBC (Bld) 7.6 % . [facility] Comment on above: Performed By: #### B MP, CBC #### [place] [address] [place] #### NICOTINE, FRUC #### [facility] , Automated neutrophil %Ordere d By: Santa Estrada on 04-15-2024 Neutrophils/100 WBC (Bld) 55.1 % . [facility] Comment on above: Performed By: #### B MP, CBC #### [place] [address] [place] #### NICOTINE, FRUC #### [facility] , Basic Metabolic Panelon 03-26 GFR/1.73 sq M.predicted MDRD (S/P/Bld) [Vol rate/Area] mL/min/{1.73_m2} Normal [facility] Comment on above: Performed By: #### A 1C WTH eA, ALB, [id number], HGB #### [place] [address] [place] #### NICOTINE #### [facility] , Bilirubin Test strip Ql (U)O rdered By: Santa Estrada on 04-15-2024 Bilirubin Ql (U) Negative Negative [facility] Calcium [Mass/volume] in Ser um or PlasmaOrdered By: Santa Estrada on 04-15-2024 Calcium [Mass/Vol] 9.0 mg/dL 8.6-10.3 [facility] Comment on above: Result Comment: PERF ORMED BY: [place] [address] PATHOLOGIST BACK TENDER CYLINDER GENO BENEDICT M.D. Performed By: #### A 1C WTH eA, ALB, [id number], HGB #### [address] #### NICOTINE #### [facility] , Carbon dioxide, total [Moles /volume] in Serum or PlasmaOrdered By: Santa Estrada on 04-15-2024 CO2 [Moles/Vol] 26.3 mmol/L 21.0-31.0 [facility] Comment on above: Performed By: #### A 1C WTH eA, ALB, [id number], HGB #### [facility] [address] [place] [address] #### NICOTINE #### [facility] , Chloride [Moles/volume] in S liam or PlasmaOrdered By: Santa Estrada on 04-15-2024 Chloride [Moles/Vol] 106 mmol/L 98-107 [facility] Comment on above: Performed By: #### A 1C WTH eA, ALB, [id number], HGB #### [place] [address] [place] #### NICOTINE #### [facility] , Color of Urine by AutoOrdere d By: Santa Estrada on 04-15-2024 Color (U) Yellow Yellow [facility] Comment on above: Order Comment: Name Collection Type:: Clean-Voided Midstream Performed By: #### U A #### [address] [place] [address] [place] Complete Blood Count Auto Di ffon 04-15-2024 Mean Corpuscular HGB Conc 34.0 g/dL Normal 32.0-35.0 [facility] Comment on above: Performed By: #### B MP, CBC #### [facility] [address] [place] [address] [place] #### NICOTINE, FRUC #### [facility] , NRBC% 0.1 /100{WBC} Normal 0-0.5 [facility] Comment on above: Performed By: #### B MP, CBC #### [address] #### NICOTINE, FRUC #### [facility] , Cotinine [Mass/volume] in Se rum or PlasmaOrdered By: Santa Estrada on 04-15-2024 Cotinine [Mass/Vol] <1.0 ng/mL . [facility] Comment on above: This test was develo ped and its performance characteristicsdetermined by [employer]. It has not been cleared orapproved by the Food and Drug Administration.Cotinine levels greater than 20.0 are consistent with theuse of tobacco or tobacco cessation products.Performed at: [facility] [employer] [id number] Director: Marcellus Dave MD, Phone: [phone] Creatinine [Mass/volume] in Serum or PlasmaOrdered By: Santa Estrada on 04-15-2024 Creatinine [Mass/Vol] 0.65 mg/dL 0.60-1.20 [facility] Comment on above: Performed By: #### A 1C WTH eA, ALB, [id number], HGB #### [facility] [address] [place] [address] [place] #### NICOTINE #### [facility] , Erythrocyte distribution wid th [Ratio] by Automated countOrdered By: Santa Estrada on 04-15-2024 Erythrocyte distribution width (RBC) [Ratio] 13.2 % 11.9-15.3 [facility] Comment on above: Performed By: #### B MP, CBC #### [facility] [address] [place] [address] [place] #### NICOTINE, FRUC #### [facility] , Erythrocytes [#/volume] in B lood by Automated countOrdered By: Santa Estrada on 04-15-2024 RBC (Bld) [#/Vol] 4.52 10*6/uL 3.60-5.00 [facility] Comment on above: Performed By: #### B MP, CBC #### [place] [address] [place] #### NICOTINE, FRUC #### [facility] , Fructosamineon 04-15-2024 Fructosamine 219 umol/L Normal 0-285 [facility] Comment on above: Result Comment: Publ ished reference interval for apparently healthy subjects between age 20 and 60 is 205 - 285 umol/L and in a poorly controlled diabetic population is 228 - 563 umol/L with a mean of 396 umol/L. Performed at: [employer] [place] [address] [place], [place] [id number] Singe Winder: Dario West PhD, Phone: [phone] Performed By: #### A 1C WTH eA, ALB, [id number], HGB #### [place] [address] [place] #### NICOTINE #### [facility] , Fructosamine [Moles/volume] in Serum or PlasmaOrdered By: Santa Estrada on 04-15-2024 Fructosamine [Moles/Vol] 219 umol/L 0-285 [facility] Comment on above: Published reference interval for apparently healthysubjects between age 20 and 60 is 205 - 285 umol/L and in apoorly controlled diabetic population is 228 - 563 umol/Lwith a mean of 396 umol/L.Performed at: [facility] [address] [id number] Director: Dario West PhD, Phone: [phone] Glucose [Mass/volume] in Ser um or PlasmaOrdered By: Santa Estrada on 04-15-2024 Glucose [Mass/Vol] 88 mg/dL 70-100 [facility] Comment on above: ADA recommended refe rence rangeRandom Glucose Reference Range is dependent on time and content of last meal. Glucose of more than 200 mg/dL in a nonstressed, ambulatory subject supports the diagnosis of Diabetes Mellitus. Result Comment: [employer] om Glucose Reference Range is dependent on time and content of last meal. Glucose of more than 200 mg/dL in a nonstressed, ambulatory subject supports the diagnosis of Diabetes Mellitus. ADA recommended reference range Performed By: #### A 1C WTH eA, ALB, [id number], HGB #### [place] [address] [place] #### NICOTINE #### [facility] , Hematocrit [Volume Fraction] of Blood by Automated countOrdered By: Santa Estrada on 04-15-2024 Hematocrit (Bld) [Volume fraction] 40.4 % 34.0-46.4 [facility] Comment on above: Performed By: #### B MP, CBC #### [place] [address] [place] #### NICOTINE, FRUC #### [facility] , Hemoglobin [Mass/volume] in BloodOrdered By: Santa Estrada on 04-15-2024 Hemoglobin (Bld) [Mass/Vol] 13.7 g/dL 11.8-15.4 [facility] Comment on above: Performed By: #### B MP, CBC #### [place] [address] [place] #### NICOTINE, FRUC #### [facility] , Ketones Auto test strip (U) [Mass/Vol]Ordered By: Santa Estrada on 04-15-2024 Ketones (U) [Mass/Vol] Negative Negative [facility] Leukocytes [#/volume] correc perla for nucleated erythrocytes in Blood by Automated counOrdered By: Santa Estrada on 04-15-2024 WBC corrected for nucl RBC Auto (Bld) [#/Vol] 4.1 10*3/uL 3.8-11.6 [facility] Leukocytes [#/volume] in Blo od by Automated countOrdered By: Santa Estrada on 04-15-2024 WBC (Bld) [#/Vol] 4.1 10*3/uL 3.8-11.6 [facility] Comment on above: Performed By: #### B MP, CBC #### [facility] [address] [place] [address] [place] #### NICOTINE, FRUC #### [facility] , Lymphocytes [#/volume] in Bl ood by Automated countOrdered By: Santa Estrada on 04-15-2024 Lymphocytes (Bld) [#/Vol] 1.4 10*3/uL 1.00-4.8 [facility] Comment on above: Performed By: #### B MP, CBC #### [place] [address] [place] #### NICOTINE, FRUC #### [facility] , Lymphocytes/100 leukocytes i n Blood by Automated countOrdered By: Santa Estrada on 04-15-2024 Lymphocytes/100 WBC (Bld) 33.6 % . [facility] Comment on above: Performed By: #### B MP, CBC #### [facility] [address] [place] [address] [place] #### NICOTINE, FRUC #### [facility] , MCH [Entitic mass] by Automa perla countOrdered By: Santa Estrada on 04-15-2024 MCH (RBC) [Entitic mass] 30.4 pg 24.7-34.3 [facility] Comment on above: Performed By: #### B MP, CBC #### [facility] [address] [place] [address] [place] #### NICOTINE, FRUC #### [facility] , MCHC Auto (RBC) [Mass/Vol]Or dered By: Santa Estrada on 04-15-2024 MCHC (RBC) [Mass/Vol] 34.0 g/dL 32.0-35.0 [facility] MCV [Entitic volume] by Auto mated countOrdered By: Santa Estrada on 04-15-2024 MCV (RBC) [Entitic vol] 89.4 fL 80-100 [facility] Comment on above: Performed By: #### B MP, CBC #### [facility] [address] [place] [address] [place] #### NICOTINE, FRUC #### [facility] , Neutrophils [#/volume] in Bl ood by Automated countOrdered By: Santa Estrada on 04-15-2024 Neutrophils (Bld) [#/Vol] 2.2 10*3/uL 1.8-7.7 [facility] Comment on above: Performed By: #### B MP, CBC #### [facility] [address] [place] [address] [place] #### NICOTINE, FRUC #### [facility] , Nicotine [Mass/volume] in Se rum or PlasmaOrdered By: Santa Estrada on 04-15-2024 Nicotine [Mass/Vol] <1.0 ng/mL . [facility] Comment on above: This test was develo ped and its performance characteristicsdetermined by [facility]. It has not been cleared orapproved by the Food and Drug Administration.Nicotine levels greater than 2.0 are consistent with theuse of tobacco or tobacco cessation products. Nicotine/Cotinine Bloodon Cotinine, Blood <1.0 Normal . [facility] Comment on above: Result Comment: This test was developed and its performance characteristics determined by [facility]. It has not been cleared or approved by the Food and Drug Administration. Cotinine levels greater than 20.0 are consistent with the use of tobacco or tobacco cessation products. Performed at: [address] [id number] Singe Winder: Marcellus Dave MD, Phone: [phone] PERFORMED BY: [address] [place] [address] PATHOLOGIST BACK TENDER CYLINDER GENO BENEDICT M.D. Performed By: #### A 1C WTH eA, ALB, [id number], HGB #### [address] #### NICOTINE #### [facility] , Nicotine, Blood <1.0 Normal . [facility] Comment on above: Result Comment: This test was developed and its performance characteristics determined by [employer]. It has not been cleared or approved by the Food and Drug Administration. Nicotine levels greater than 2.0 are consistent with the use of tobacco or tobacco cessation products. Performed By: #### A 1C WTH eA, ALB, [id number], HGB #### [place] [address] [place] #### NICOTINE #### [facility] , Nitrite Test strip Ql (U)Ord ered By: Santa Estrada on 04-15-2024 Nitrite Ql (U) Negative Negative [facility] No Panel InformationOrdered By: Santa Estrada on 04-15-2024 Estimated GFR (CKD-EPI) > 60.0 mL/Min [facility] Creatinine Clearance (Chem N/A [facility] Nucleated erythrocytes [Pres ence] in Blood by Automated countOrdered By: Santa Estrada on 04-15-2024 Nucleated RBC Auto Ql (Bld) 0.1 /100{WBC} 0-0.5 [facility] PST Type and Screenon 2023 ABO and Rh group Nom (Bld) Blood group O Rh(D) positive Normal [facility] Comment on above: Order Comment: Date of Surgery: [id number] Result Comment: PERF ORMED BY: [place] [address] PATHOLOGIST BACK TENDER CYLINDER GENO BENEDICT M.D. Platelet mean volume [Entiti c volume] in Blood by Automated countOrdered By: Santa Estrada on 04-15-2024 Platelet mean volume (Bld) [Entitic vol] 7.3 fL 6.3-10.7 [facility] Comment on above: Performed By: #### B MP, CBC #### [place] [address] [place] #### NICOTINE, FRUC #### [facility] , Platelets [#/volume] in Bloo d by Automated countOrdered By: Santa Estrada on 04-15-2024 Platelets (Bld) [#/Vol] 230 10*3/uL 150-450 [facility] Comment on above: Performed By: #### B MP, CBC #### [place] [address] [place] #### NICOTINE, FRUC #### [facility] , Potassium [Moles/volume] in Serum or PlasmaOrdered By: Santa Estrada on 04-15-2024 Potassium [Moles/Vol] 4.0 mmol/L 3.5-5.1 [facility] Comment on above: Performed By: #### A 1C WTH eA, ALB, [id number], HGB #### [place] [address] [place] #### NICOTINE #### [facility] , Protein Auto test strip (U) [Mass/Vol]Ordered By: Santa Estrada on 04-15-2024 Protein (U) [Mass/Vol] Negative Negative [facility] Serum or plasma anion gap de terminationOrdered By: Santa Estrada on 04-15-2024 Anion gap [Moles/Vol] 6.7 mmol/L 6.0-15.0 [facility] Comment on above: Performed By: #### A 1C WTH eA, ALB, [id number], HGB #### [place] [address] [place] #### NICOTINE #### [facility] , Sodium [Moles/volume] in Ser um or PlasmaOrdered By: Santa Estrada on 04-15-2024 Sodium [Moles/Vol] 135 mmol/L Low 136-145 [facility] Comment on above: Performed By: #### A 1C WTH eA, ALB, [id number], HGB #### [facility] [address] [place] [address] #### NICOTINE #### [facility] , Specific gravity Auto test s trip (U) [Rel density]Ordered By: Santa Estrada on 04-15-2024 Specific gravity (U) [Rel density] 1.009 1.001-1.03 0 [facility] Urea nitrogen [Mass/volume] in Serum or PlasmaOrdered By: Santa Estrada on 04-15-2024 Urea nitrogen [Mass/Vol] 10 mg/dL 04-18 [facility] Comment on above: Performed By: #### A 1C WT eA, ALB, [id number], HGB #### [address] #### NICOTINE #### [facility] , Urinalysison 04-15-2024 Appearance (U) Clear Normal Clear [facility] Comment on above: Order Comment: Name Collection Type:: Clean-Voided Midstream Performed By: #### U A #### [address] Bilirubin,Urine Negative Normal Negative [facility] Comment on above: Order Comment: Name Collection Type:: Clean-Voided Midstream Performed By: #### U A #### [address] Glucose Ql (U) Normal Normal Normal [facility] Comment on above: Order Comment: Name Collection Type:: Clean-Voided Midstream Performed By: #### U A #### [address] Ketones Ql (U) Negative Normal Negative [facility] Comment on above: Order Comment: Name Collection Type:: Clean-Voided Midstream Performed By: #### U A #### [address] Leukocyte esterase Test strip Ql (U) Negative Normal Negative [facility] Comment on above: Order Comment: Name Collection Type:: Clean-Voided Midstream Performed By: #### U A #### [place] [address] [place] Nitrite,Urine Negative Normal Negative [facility] Comment on above: Order Comment: Name Collection Type:: Clean-Voided Midstream Performed By: #### U A #### [place] [address] [place] Occult Blood,Urine Negative Normal Negative [facility] Comment on above: Order Comment: Name Collection Type:: Clean-Voided Midstream Result Comment: PERF ORMED BY: [place] [address] PATHOLOGIST BACK TENDER CYLINDER GENO BENEDICT M.D. Performed By: #### U A #### [place] [address] [place] Protein,Urine Negative Normal Negative [facility] Comment on above: Order Comment: Name Collection Type:: Clean-Voided Midstream Performed By: #### U A #### [address] Specificy [place],Urine 1.009 Normal 1.001-1.03 0 [facility] Comment on above: Order Comment: Name Collection Type:: Clean-Voided Midstream Performed By: #### U A #### [place] [address] [place] Urobilinogen,Urine Normal Normal Normal [facility] Comment on above: Order Comment: Name Collection Type:: Clean-Voided Midstream Performed By: #### U A #### [place] [address] [place] Urine clarity by refractomet ry automatedOrdered By: Santa Estrada on 04-15-2024 Clarity Refractometry automated (U) Clear Clear [facility] Urine glucose measurement by automated test strip (mass/volume)Ordered By: Santa Estrada on 04-15-2024 Glucose Auto test strip (U) [Mass/Vol] Normal mg/dL Normal [facility] Urine hemoglobin detection b y automated test stripOrdered By: Santa Estrada on 04-15-2024 Hemoglobin Auto test strip Ql (U) Negative Negative [facility] Urine leukocyte esterase det ection by automated test stripOrdered By: Santa Estrada on 04-15-2024 Leukocyte esterase Auto test strip Ql (U) Negative Negative [facility] Urine pH measurement by auto mated test stripOrdered By: Santa Estrada on 04-15-2024 pH (U) 8.0 [pH] 5.0-9.0 [facility] Comment on above: Order Comment: Name Collection Type:: Clean-Voided Midstream Performed By: #### U A #### [facility] [address] Urobilinogen Auto test strip (U) [Mass/Vol]Ordered By: Santa Estrada on 04-15-2024 Urobilinogen (U) [Mass/Vol] Normal mg/dL Normal [facility] CBC with Diffon 03-14-2024 Abs. Basophil 0.06 k/uL Normal 0.00-0.20 [facility] Comment on above: Performed By: #### C DP, VD25, FEBC, AHCV, GLYHGB, HIVCMB, TSHX, FERI, LIPRF, B12, CP #### [place] [address] Singe Winder: Isreal Astorga MD Abs.Imm.Granulocyte <0.03 Normal 0.00-0.30 [facility] Comment on above: Performed By: #### C DP, VD25, FEBC, AHCV, GLYHGB, HIVCMB, TSHX, FERI, LIPRF, B12, CP #### [facility] [employer] [address] [place] [address] Singe Winder: Isreal Astorga MD Abs.Neutrophil (Seg) 2.66 k/uL Normal 1.50-8.10 [facility] Comment on above: Performed By: #### C DP, VD25, FEBC, AHCV, GLYHGB, HIVCMB, TSHX, FERI, LIPRF, B12, CP #### [facility] [employer] [address] [place] [address] Singe Winder: Isreal Astorga MD Basophils/100 WBC (Bld) 1 % Normal 0-2 [facility] Comment on above: Performed By: #### C DP, VD25, FEBC, AHCV, GLYHGB, HIVCMB, TSHX, FERI, LIPRF, B12, CP #### [place] [id number] Singe Winder: Isreal Astorga MD Eosinophils (Bld) [#/Vol] 0.28 10*3/uL Normal 0.00-0.44 [facility] Comment on above: Performed By: #### C DP, VD25, FEBC, AHCV, GLYHGB, HIVCMB, TSHX, FERI, LIPRF, B12, CP #### [place] [id number] Singe Winder: Isreal Astorga MD Eosinophils/100 WBC (Bld) 5 % High 1-4 [facility] Comment on above: Performed By: #### C DP, VD25, FEBC, AHCV, GLYHGB, HIVCMB, TSHX, FERI, LIPRF, B12, CP #### [place] [address] Singe Winder: Isreal Astorga MD Erythrocyte distribution width (RBC) [Ratio] 12.6 % Normal 11.8-14.4 [facility] Comment on above: Performed By: #### C DP, VD25, FEBC, AHCV, GLYHGB, HIVCMB, TSHX, FERI, LIPRF, B12, CP #### [place] [address] Singe Winder: Isreal Astorga MD Hematocrit (Bld) [Volume fraction] 38.8 % Normal 36.3-47.1 [facility] Comment on above: Performed By: #### C DP, VD25, FEBC, AHCV, GLYHGB, HIVCMB, TSHX, FERI, LIPRF, B12, CP #### [address] [id number] Singe Winder: Isreal Astorga MD Hemoglobin (Bld) [Mass/Vol] 12.9 g/dL Normal 11.9-15.1 [facility] Comment on above: Performed By: #### C DP, VD25, FEBC, AHCV, GLYHGB, HIVCMB, TSHX, FERI, LIPRF, B12, CP #### [address] [id number] Singe Winder: Isreal Astorga MD Immature granulocytes/100 WBC (Bld) 0 % Normal 0 [facility] Comment on above: Performed By: #### C DP, VD25, FEBC, AHCV, GLYHGB, HIVCMB, TSHX, FERI, LIPRF, B12, CP #### [address] [address] Singe Winder: Isreal Astorga MD Lymphocytes (Bld) [#/Vol] 1.69 10*3/uL Normal 1.10-3.70 [facility] Comment on above: Performed By: #### C DP, VD25, FEBC, AHCV, GLYHGB, HIVCMB, TSHX, FERI, LIPRF, B12, CP #### [address] [address] Singe Winder: Isreal Astorga MD Lymphocytes/100 WBC (Bld) 33 % Normal 24-43 [facility] Comment on above: Performed By: #### C DP, VD25, FEBC, AHCV, GLYHGB, HIVCMB, TSHX, FERI, LIPRF, B12, CP #### [address] [address] Singe Winder: Isreal Astorga MD MCH (RBC) [Entitic mass] 29.9 pg Normal 25.2-33.5 [facility] Comment on above: Performed By: #### C DP, VD25, FEBC, AHCV, GLYHGB, HIVCMB, TSHX, FERI, LIPRF, B12, CP #### [address] [address] Singe Winder: Isreal Astorga MD MCHC (RBC) [Mass/Vol] 33.2 g/dL Normal 28.4-34.8 [facility] Comment on above: Performed By: #### C DP, VD25, FEBC, AHCV, GLYHGB, HIVCMB, TSHX, FERI, LIPRF, B12, CP #### [place] [address] Singe Winder: Isreal Astorga MD MCV (RBC) [Entitic vol] 89.8 fL Normal 82.6-102.9 [facility] Comment on above: Performed By: #### C DP, VD25, FEBC, AHCV, GLYHGB, HIVCMB, TSHX, FERI, LIPRF, B12, CP #### [place] [address] Singe Winder: Isreal Astorga MD Monocytes (Bld) [#/Vol] 0.47 10*3/uL Normal 0.10-1.20 [facility] Comment on above: Performed By: #### C DP, VD25, FEBC, AHCV, GLYHGB, HIVCMB, TSHX, FERI, LIPRF, B12, CP #### [place] [address] Singe Winder: Isreal Astorga MD Monocytes/100 WBC (Bld) 9 % Normal 3-12 [facility] Comment on above: Performed By: #### C DP, VD25, FEBC, AHCV, GLYHGB, HIVCMB, TSHX, FERI, LIPRF, B12, CP #### [place] [address] Singe Winder: Isreal Astorga MD Neutrophil (Seg) 52 % Normal 36-[address] [facility] Comment on above: Performed By: #### C DP, VD25, FEBC, AHCV, GLYHGB, HIVCMB, TSHX, FERI, LIPRF, B12, CP #### [address] [id number] Singe Winder: Isreal Astorga MD NRBC Automated 0.0 per 100 WBC Normal 0.0 [facility] Comment on above: Performed By: #### C DP, VD25, FEBC, AHCV, GLYHGB, HIVCMB, TSHX, FERI, LIPRF, B12, CP #### [place] [address] Singe Winder: Isreal Astorga MD Platelet mean volume (Bld) [Entitic vol] 9.7 fL Normal 8.1-13.5 [facility] Comment on above: Performed By: #### C DP, VD25, FEBC, AHCV, GLYHGB, HIVCMB, TSHX, FERI, LIPRF, B12, CP #### [address] [address] Singe Winder: Isreal Astorga MD Platelets (Bld) [#/Vol] 256 10*3/uL Normal 138-453 [facility] Comment on above: Performed By: #### C DP, VD25, FEBC, AHCV, GLYHGB, HIVCMB, TSHX, FERI, LIPRF, B12, CP #### [address] [address] Singe Winder: Isreal Astorga MD RBC (Bld) [#/Vol] 4.32 10*6/uL Normal 3.95-5.11 [facility] Comment on above: Performed By: #### C DP, VD25, FEBC, AHCV, GLYHGB, HIVCMB, TSHX, FERI, LIPRF, B12, CP #### [address] [address] Singe Winder: Isreal Astorga MD WBC (Bld) [#/Vol] 5.2 10*3/uL Normal 3.5-11.3 [facility] Comment on above: Performed By: #### C DP, VD25, FEBC, AHCV, GLYHGB, HIVCMB, TSHX, FERI, LIPRF, B12, CP #### [address] [address] Singe Winder: Isreal Astorga MD Comp Metabolic Profon 2023 Albumin [Mass/Vol] 4.2 g/dL Normal 3.5-5.2 [facility] Comment on above: Performed By: #### C DP, VD25, FEBC, AHCV, GLYHGB, HIVCMB, TSHX, FERI, LIPRF, B12, CP #### [address] [address] Singe Winder: Isreal Astorga MD Albumin/Glob Ratio 2.0 Normal 1.0-2.5 [facility] Comment on above: Performed By: #### C DP, VD25, FEBC, AHCV, GLYHGB, HIVCMB, TSHX, FERI, LIPRF, B12, CP #### [address] [address] Singe Winder: Isreal Astorga MD Alkaline Phos 72 U/L Normal 35-104 [facility] Comment on above: Performed By: #### C DP, VD25, FEBC, AHCV, GLYHGB, HIVCMB, TSHX, FERI, LIPRF, B12, CP #### [address] [address] Singe Winder: Isreal Astorga MD ALT [Catalytic activity/Vol] 21 U/L Normal 10-35 [facility] Comment on above: Performed By: #### C DP, VD25, FEBC, AHCV, GLYHGB, HIVCMB, TSHX, FERI, LIPRF, B12, CP #### [facility] [address] [place] [address] [phone] Singe Winder: Isreal Astorga MD Anion gap [Moles/Vol] 8 mmol/L Low 9-16 [facility] Comment on above: Performed By: #### C DP, VD25, FEBC, AHCV, GLYHGB, HIVCMB, TSHX, FERI, LIPRF, B12, CP #### [address] [phone] Singe Winder: Isreal Astorga MD AST [Catalytic activity/Vol] 23 U/L Normal 10-35 [facility] Comment on above: Performed By: #### C DP, VD25, FEBC, AHCV, GLYHGB, HIVCMB, TSHX, FERI, LIPRF, B12, CP #### [facility] [address] [place] [address] [phone] Singe Winder: Isreal Astorga MD Bilirubin [Mass/Vol] 0.4 mg/dL Normal 0.00-1.20 [facility] Comment on above: Performed By: #### C DP, VD25, FEBC, AHCV, GLYHGB, HIVCMB, TSHX, FERI, LIPRF, B12, CP #### [facility] [address] [place] [address] [id number] Singe Winder: Isreal Astorga MD Calcium [Mass/Vol] 8.8 mg/dL Normal 8.6-10.4 [facility] Comment on above: Performed By: #### C DP, VD25, FEBC, AHCV, GLYHGB, HIVCMB, TSHX, FERI, LIPRF, B12, CP #### [facility] [address] [place] [address] [phone] Singe Winder: Isreal Astorga MD Chloride [Moles/Vol] 106 mmol/L Normal 98-107 [facility] Comment on above: Performed By: #### C DP, VD25, FEBC, AHCV, GLYHGB, HIVCMB, TSHX, FERI, LIPRF, B12, CP #### [facility] [address] [place] [address] [phone] Singe Winder: Isreal Astorga MD CO2 [Moles/Vol] 25 mmol/L Normal 20-31 [facility] Comment on above: Performed By: #### C DP, VD25, FEBC, AHCV, GLYHGB, HIVCMB, TSHX, FERI, LIPRF, B12, CP #### [address] [phone] Singe Winder: Isreal Astorga MD Creatinine [Mass/Vol] 0.7 mg/dL Normal 0.50-0.90 [facility] Comment on above: Performed By: #### C DP, VD25, FEBC, AHCV, GLYHGB, HIVCMB, TSHX, FERI, LIPRF, B12, CP #### [address] [phone] Singe Winder: Isreal Astorga MD GFR/1.73 sq M.predicted among non-blacks MDRD (S/P/Bld) [Vol rate/Area] mL/min/{1.73_m2} Normal >60 [facility] Comment on above: Result Comment: These [...] HIVCMB, TSHX, FERI, LIPRF, B12, CP #### [facility] [address] [place] [address] [phone] Singe Winder: Isreal Astorga MD Glucose [Mass/Vol] 94 mg/dL Normal 74-99 [facility] Comment on above: Performed By: #### C DP, VD25, FEBC, AHCV, GLYHGB, HIVCMB, TSHX, FERI, LIPRF, B12, CP #### [address] [phone] Singe Winder: Isreal Astorga MD Potassium [Moles/Vol] 3.8 mmol/L Normal 3.7-5.3 [facility] Comment on above: Performed By: #### C DP, VD25, FEBC, AHCV, GLYHGB, HIVCMB, TSHX, FERI, LIPRF, B12, CP #### [place] [address] Singe Winder: Isreal Astorga MD Protein [Mass/Vol] 6.7 g/dL Normal 6.6-8.7 [facility] Comment on above: Performed By: #### C DP, VD25, FEBC, AHCV, GLYHGB, HIVCMB, TSHX, FERI, LIPRF, B12, CP #### [address] [phone] Singe Winder: Isreal Astorga MD Sodium [Moles/Vol] 139 mmol/L Normal 136-145 [facility] Comment on above: Performed By: #### C DP, VD25, FEBC, AHCV, GLYHGB, HIVCMB, TSHX, FERI, LIPRF, B12, CP #### [place] [address] Singe Winder: Isreal Astorga MD Urea nitrogen [Mass/Vol] 12 mg/dL Normal 6-20 [facility] Comment on above: Performed By: #### C DP, VD25, FEBC, AHCV, GLYHGB, HIVCMB, TSHX, FERI, LIPRF, B12, CP #### [employer] [address] [place] [address] [phone] Singe Winder: Isreal Astorga MD Ferritinon 03-14-2024 Ferritin [Mass/Vol] 133 ng/mL Normal 13-150 [facility] Comment on above: Result Comment: FERRITIN Reference Ranges: Adult Males 20 - 60 years: 30 - 400 ng/mL Adult females 17 - 60 years: 13 - 150 ng/mL Adults greater than 60 years: no established reference range Pediatrics: no established reference range Performed By: #### C DP, VD25, FEBC, AHCV, GLYHGB, HIVCMB, TSHX, FERI, LIPRF, B12, CP #### [facility] [address] [place] [address] [phone] Singe Winder: Isreal Astorga MD HIV Ag/Abon 03-14-2024 HIV Ag/Ab Non-Reactive Normal NR [facility] Comment on above: Result Comment: No l aboratory evidence of HIV infection. If acute HIV infection is suspected, consider testing for HIV-1 RNA. Performed By: #### C DP, VD25, FEBC, AHCV, GLYHGB, HIVCMB, TSHX, FERI, LIPRF, B12, CP #### [facility] [address] [place] [address] [phone] Singe Winder: Isreal Astorga MD Hemoglobin A1Con 03-14-2024 Glucose [Mass/Vol] 94 mg/dL Normal [facility] Comment on above: Result Comment: The ADA and AACC recommend providing the estimated average glucose result to permit better patient understanding of their HBA1c result. Performed By: #### C DP, VD25, FEBC, AHCV, GLYHGB, HIVCMB, TSHX, FERI, LIPRF, B12, CP #### [facility] [address] [place] [address] [phone] Singe Winder: Isreal Astorga MD HbA1c (Bld) [Mass fraction] 4.9 % Normal 4.0-6.0 [facility] Comment on above: Performed By: #### C DP, VD25, FEBC, AHCV, GLYHGB, HIVCMB, TSHX, FERI, LIPRF, B12, CP #### [facility] [address] [place] [address] [phone] Singe Winder: Isreal Astorga MD Hep C Abon 03-14-2024 Hep C Ab Non-Reactive Normal NR [facility] Comment on above: Result Comment: The [...] HIVCMB, TSHX, FERI, LIPRF, B12, CP #### [address] [phone] Singe Winder: Isreal Astorga MD Iron Binding Cap.on 03-14-20 24 % Fe Saturation 44 % Normal 20-55 [facility] Comment on above: Performed By: #### C DP, VD25, FEBC, AHCV, GLYHGB, HIVCMB, TSHX, FERI, LIPRF, B12, CP #### [facility] [address] [place] [address] [phone] Singe Winder: Isreal Astorag MD Iron [Mass/Vol] 107 ug/dL Normal 37-145 [facility] Comment on above: Performed By: #### C DP, VD25, FEBC, AHCV, GLYHGB, HIVCMB, TSHX, FERI, LIPRF, B12, CP #### [facility] [address] [place] [id number] Singe Winder: Isreal Astorga MD Total Fe Binding Cap 243 ug/dL Low 250-450 [facility] Comment on above: Performed By: #### C DP, VD25, FEBC, AHCV, GLYHGB, HIVCMB, TSHX, FERI, LIPRF, B12, CP #### [address] [phone] Singe Winder: Isreal Astorga MD Unbound Fe Bind Cap 136 ug/dL Normal 112-347 [facility] Comment on above: Performed By: #### C DP, VD25, FEBC, AHCV, GLYHGB, HIVCMB, TSHX, FERI, LIPRF, B12, CP #### [address] [phone] Singe Winder: Isreal Astorga MD Lipid Prof, Fastingon 2023 Cholesterol [Mass/Vol] 174 mg/dL Normal 0-199 [facility] Comment on above: Result Comment: Cholesterol Guidelines: <200 Desirable 200-240 Borderline >240 Undesirable Performed By: #### C DP, VD25, FEBC, AHCV, GLYHGB, HIVCMB, TSHX, FERI, LIPRF, B12, CP #### [address] [address] Singe Winder: Isreal Astorga MD Cholesterol in HDL [Mass/Vol] 57 mg/dL Normal >40 [facility] Comment on above: Result Comment: HDL Guidelines: <40 Undesirable 40-59 Borderline >59 Desirable Performed By: #### C DP, VD25, FEBC, AHCV, GLYHGB, HIVCMB, TSHX, FERI, LIPRF, B12, CP #### [address] [phone] Singe Winder: Isreal Astorga MD Cholesterol in LDL [Mass/Vol] 96 mg/dL Normal 0-100 [facility] Comment on above: Result Comment: LDL Guidelines: <100 Desirable 100-129 Near to/above Desirable 130-159 Borderline >159 Undesirable Direct (measured) LDL and calculated LDL are not interchangeable tests. Performed By: #### C DP, VD25, FEBC, AHCV, GLYHGB, HIVCMB, TSHX, FERI, LIPRF, B12, CP #### [address] [address] Singe Winder: Isreal Astorga MD Cholesterol in VLDL [Mass/Vol] 22 mg/dL Normal [facility] Comment on above: Performed By: #### C DP, VD25, FEBC, AHCV, GLYHGB, HIVCMB, TSHX, FERI, LIPRF, B12, CP #### [address] [address] Singe Winder: Isreal Astorga MD Cholesterol.total/Chol esterol in HDL [Mass ratio] 3.0 {ratio} Normal [facility] Comment on above: Performed By: #### C DP, VD25, FEBC, AHCV, GLYHGB, HIVCMB, TSHX, FERI, LIPRF, B12, CP #### [address] [address] Singe Winder: Isreal Astorga MD Triglyceride,Fasting 108 mg/dL Normal 0-149 [facility] Comment on above: Result Comment: Triglyceride Guidelines: <150 Desirable 150-199 Borderline 200-499 High >499 Very high Based on AHA Guidelines for fasting triglyceride, June 2012. Performed By: #### C DP, VD25, FEBC, AHCV, GLYHGB, HIVCMB, TSHX, FERI, LIPRF, B12, CP #### [address] [address] Singe Winder: Isreal Astorga MD TSH w/reflex to FT4on 2023 Thyroid Stim. Horm. 2.37 uIU/mL Normal 0.27-4.20 [facility] Comment on above: Performed By: #### C DP, VD25, FEBC, AHCV, GLYHGB, HIVCMB, TSHX, FERI, LIPRF, B12, CP #### [address] [address] Singe Winder: Isreal Astorga MD Vitamin B12on 03-14-2024 Cobalamin (Vitamin B12) [Mass/Vol] 695 pg/mL Normal 232-1245 [facility] Comment on above: Performed By: #### C DP, VD25, FEBC, AHCV, GLYHGB, HIVCMB, TSHX, FERI, LIPRF, B12, CP #### [facility] [place], [place] [phone] Singe Winder: Isreal Astorga MD Vitamin D 25 OHon 03-14-2024 Vitamin D 25 [place] 17.4 ng/mL Low 30.0-100.0 [facility] Comment on above: Result Comment: Reference Range: Vitamin D status Range Deficiency <20 ng/mL Mild Deficiency 20-30 ng/mL Sufficiency 30-100 ng/mL Toxicity >100 ng/mL Performed By: #### C DP, VD25, FEBC, AHCV, GLYHGB, HIVCMB, TSHX, FERI, LIPRF, B12, CP #### [facility] [address] [place] [address] [phone] Singe Winder: Isreal Astorga MD Patient Handouton 03-13-2024 Patient Handout Custom [facility] [address] [place] [address], [address], [place] Date: 03/13/2024 RE: Lucila Jacques To whom it may concern, Lucila has been under my professional care due to a surgical procedure performed on 02/27/2024. She may return to work with no restrictions on 03/20/2024. Thank you, Peter Booth M.D. Normal [facility] Release of Informationon Release of Information [id number] Normal [facility] A1C with Estimated Average G korinn 03-12-2024 Glucose [Mass/Vol] 105 mg/dL Normal [facility] Comment on above: Result Comment: PERF ORMED BY: [address] [place] [address] PATHOLOGIST BACK TENDER CYLINDER GENO BENEDICT M.D. Performed By: #### A 1C WT eA, ALB, [id number], HGB #### [address] #### NICOTINE #### [facility] , Albumin Levelon 03-12-2024 Albumin [Mass/Vol] 4.0 g/dL Normal 3.5-5.7 [facility] Comment on above: Performed By: #### A 1C WTH eA, ALB, [id number], HGB #### [address] #### NICOTINE #### [facility] , Albumin [Mass/volume] in Ser um or Plasma by Bromocresol green (BCG) dye binding methoOrdered By: Santa Estrada on 03-12-2024 Albumin BCG dye [Mass/Vol] 4.0 g/dL 3.5-5.7 [facility] Cotinine [Mass/volume] in Se rum or PlasmaOrdered By: Santa Estrada on 03-12-2024 Cotinine [Mass/Vol] 3.7 ng/mL . [facility] Comment on above: This test was develo ped and its performance characteristicsdetermined by [facility]. It has not been cleared orapproved by the Food and Drug Administration.Cotinine levels greater than 20.0 are consistent with theuse of tobacco or tobacco cessation products.Performed at: [address] [id number] Director: Marcellus Dave MD, Phone: [phone] Glucose mean value [Mass/vol ume] in Blood Estimated from glycated hemoglobinOrdered By: Santa Estrada on 03-12-2024 Average glucose Estimated from glycated hemoglobin (Bld) [Mass/Vol] 105 mg/dL [facility] Hemoglobin A1c percentageOrd ered By: Santa Estrada on 03-12-2024 HbA1c (Bld) [Mass fraction] 5.3 % Normal 4.3-5.6 [facility] Comment on above: Increased risk for d iabetes: 5.7 - 6.4diabetes: >6.4glycemic control for adults with diabetes: <7.0 Result Comment: Incr eased risk for diabetes: 5.7 - 6.4 diabetes: >6.4 glycemic control for adults with diabetes: <7.0 Performed By: #### A 1C WTH eA, ALB, [id number], HGB #### [facility] [address] [place] [address] [place] #### NICOTINE #### [facility] , Hemoglobin [Mass/volume] in BloodOrdered By: Santa Estrada on 03-12-2024 Hemoglobin (Bld) [Mass/Vol] 12.8 g/dL Normal 11.8-15.4 [facility] Comment on above: Result Comment: PERF ORMED BY: [place] [address] PATHOLOGIST BACK TENDER CYLINDER GENO BENEDICT M.D. Performed By: #### A 1C WTH eA, ALB, [id number], HGB #### [address] #### NICOTINE #### [facility] , MRSA Cultureon 03-12-2024 MRSA Culture No MRSA Isolated 2 D ays PERFORMED BY: [place] [address] PATHOLOGIST BACK TENDER CYLINDER GENO BENEDICT M.D. Normal [facility] Comment on above: Performed By: #### C UMRSA #### [address] Nicotine [Mass/volume] in Se rum or PlasmaOrdered By: Santa Estrada on 03-12-2024 Nicotine [Mass/Vol] <1.0 ng/mL . [facility] Comment on above: This test was develo ped and its performance characteristicsdetermined by [facility]. It has not been cleared orapproved by the Food and Drug Administration.Nicotine levels greater than 2.0 are consistent with theuse of tobacco or tobacco cessation products. Nicotine/Cotinine Bloodon Cotinine, Blood 3.7 ng/mL Normal . [facility] Comment on above: Result Comment: This test was developed and its performance characteristics determined by [facility]. It has not been cleared or approved by the Food and Drug Administration. Cotinine levels greater than 20.0 are consistent with the use of tobacco or tobacco cessation products. Performed at: [address] [id number] Singe Winder: Marcellus Dave MD, Phone: [phone] PERFORMED BY: [place] [address] PATHOLOGIST BACK TENDER CYLINDER GENO BENEDICT M.D. Performed By: #### A 1C WT eA, ALB, [id number], HGB #### [address] #### NICOTINE #### [facility] , Nicotine, Blood <1.0 Normal . [facility] Comment on above: Result Comment: This test was developed and its performance characteristics determined by [facility]. It has not been cleared or approved by the Food and Drug Administration. Nicotine levels greater than 2.0 are consistent with the use of tobacco or tobacco cessation products. Performed By: #### A 1C WTH eA, ALB, [id number], HGB #### [address] #### NICOTINE #### [facility] , Vitamin D 25 Hydroxy Totalon 03-12-2024 Vitamin D 25 Hydroxy Total 18.4 ng/mL Low 30-100 [facility] Comment on above: Result Comment: EVE MIN D STATUS 25(OH)VITAMIN D RANGE (ng/mL) Deficient <20 Insufficient 20 to <30 Sufficient 30 to 100 Reference: Ever MF,Juliano GARCIA, Tate VELAZQUEZ, et al. Evaluation,treatment, and prevention of vitamin D deficiency; an Endocrine Society clinical practice guideline. JCEM. 2010; 96(7):1911-30. PERFORMED BY: [place] [address] PATHOLOGIST BACK TENDER CYLINDER GENO BENEDICT M.D. Performed By: #### A 1C WTH eA, ALB, [id number], HGB #### [facility] [address] #### NICOTINE #### [facility] , Vitamin D+Metabolites [Mass/ volume] in Serum or PlasmaOrdered By: Santa Estrada on 03-12-2024 Vitamin D+Metabolites [Mass/Vol] 18.4 ng/mL Low 30-100 [facility] Comment on above: VITAMIN D STATUS 25( [...] (Unsp spec) No MRSA Isolated 2 Days [facility] Coding Summaryon 03-07-2024 Coding Summary HTMLBase 64 AuneqrkdLSu4kVz+PGhlYWQ+PE1 HATZkH09ffFDdgW4bG2CWRLySRr gtXFUIGNcOGlYsljRcZY6rtWAqZ XJu IC8+WN8tVBGtJeljmXKan7K8zDC 3Z19mkl8cKGebgHG6BFXeArMjoc csz1cizNo1SIdiUbucPqDj BBTxoP86PKC5dG52Eo02aMNlsJB cq4ywyEm3CrBmXWZyQVW1dTtxHK lcg3HpPAOqF92ukMRkw3K4 WTUwvHufyYSvEuGpbOS2iN3dCHo wljmzd3dowoswVgv6pt36pTXkd8 H7kEF6W1WurvD8IGIuoDYl ZjeuyRXQlS1tarhmj5gxspkmNzN kMFJpZFx0WPt1RXMqzJerBnHfHD 05NAP0FAHvqjAzR0VrMNDa gQlvXvQ2w5N1Cy0PU1KXOygfI6O NTUFSWTwvdGQ+KH07gm18Y2IgKr tdWwn6DRVyTPO1kQR5oA4h QUSxAXpff0Y9oVN0G4SouqAvzm7 xl0smIZHlQKlkU32grGUue7X1FW VewYH7HQMbyEenAyMswB58 Oyc+KQMrdMahx2DfBhqtp7dhq1z ctYo6HidzTVFgodZhuMeuZFK4z4 LvPc7gEWSknNE5lJI6uA2d WsVaRbU1ZTveA337WjEgnMGjPwc wX29zU7XitPK+FSNsMfj9UOGfnX mnVD6bZ4JbSSWwxxxseACv xXvlFZ0aMAXlgcjpXRDjdJ2eMSD tU8c2WaClZtX0OKwrC8JgHWKtyv qwCh17cN3kIeDvSgN4YOia H6WjmmZ3ABKsoZCfJQfnJPK8T38 qf2U8FZCmTQBvUIN9oMG1xS5rjY lnbjogbGVmdDsgdmVydGlj RVenNHzjD498WDSueXyqKmHmXAu uZyBEYXRlOiAgMDYvMTMvMjAyND wvdGQ+URJbRLD7yCudDEOa bHGqEIssCt5pvPfvkYxgAQ4qOVW orrdhTOJtsV9vLQVizNPryPpfNU 1kLRDaodxpy608YqCcGVP0 GFDdxYZtE1XqxM5iBwFqVKLgTNS lP2FiqDFbDTauE917NBreWsY9KO WwmkUaH5KiAURnlSufNnI1 n6B6Hr8Rq3SczsxuO3OhnGZiEuZ zAsyqPDo5P1OpWhknpCC+PC90YW WvXB40QEk7EOY3oNmzJUdy FZOlA2DlyD8kMoFuNHOpPESqPkn +PHRhYmxlIHdpZHRoPScxMDAlJy SbrOgnQQ3qTo1vTIUsPVLk rIiajKBaQzEfz2cuQXBvCVswNB4 ebJhbW5NouAN3GDXlc1v8Fa75I5 7nH1UtfTM+UFOvoMC2rQQ0 xP7eMmIaXsO9QOjiV771XwZqiHF uBjhid7uvk3vdsId7MbP4YNRawj TisWanKDA4x0ZuVn73Z73q IHdpZHRoPSIxNSUiIHZhbGlnbj0 gaZ4uJh8+MBSrlVV2gBI0aN4ySn XzZoK1UKpxQ043HfEatJJf Eldae9ffk5etbPg7EgClNZIvmgD kcVwnARQ4h7CkOn10W9IglMold7 XgGcu4zn70sABdd2Y4mWQ7 R1WkYPOcuzybmUZkrZleEM2iKSN ngzptPIFqyL8sGDLyL4x0LhUwSm K8YPxtG4PllqM5VCMvuEZj JUUmtQZJbI5ucafrq6huxfnrLzG dFNAdGYp9OYq4YDZybCewXyNiFY W6AeV6VEV2uDPwjL9pdKmz qmeslP2iCfg+VCI1eTAmjRXVZA0 lOjwvdGQ+RPNtGCB2iUyyDDdjHT XusJ3wILHiL9x5SiWlBxZ8 MTmjH3WduaD9ESWbzSRsHLOosIV SmR1xhnrtm2iqfjuxHqMkQMAoEU c4BWj3CPEcwDegNeZzVNV1 CsG2XAS1yHEhsM3mwIragjwjjZ2 wOyc+DltibNqqXEJ5WYy1C4SsXo b8UQFnaJlmLG3ixDCbDEjk Sm9trMknpSlrEQ0tXOQmrujxr76 1WxRvx4pwMLXkcQKpZQyrAIS5Z5 5qu4L7HNIuBWCwAWS1sQA1 cP2vtQxnwrrkpLYveHczzdElaBa xSDkuUAgrF935XQRwzHqiKvAmJZ k2N8JcKcd7OIMkiXftUT2w aYNsGHatNq8huOqaoZeuMV2mNGZ eansmy828UxRfj0jiOSHjhFPrRT sxVRF4T76kj6C3ZLTtRUHo IEI6aXU1lJ4ckFeuwtmqhTGbaAs gwiShsFdzOPasUYsyS815SLIvdA llAbEfbEh2S8KwZsw4BUXo qCamYN1rsRYvBSwkGs2wyEtnzOk fUT3vSJEbzuroa396GjJyu4hxPM NzoPIlAPscVEM9G07td8G2 OIFbUEEpILR1sIL0zI5iuZwniqx gbGVmdDsgdmVydGljYWwtYWxpZ2 46IHRvcDsnPlBhdGllbnQg AOppRXn8X9WkMkopyXE+LU94GWH vEA38lHQuyTNma3onbHa0HxAhKU UkDRX6wSzxHZddl4McQOBe J27xbZLcz4L8QYQbyIvbeIDeEeN hsGC4pE9lOXetdkqpy3dcdchdAr mmm9wplb56kI02T19zZNtb JYPeDYKdIDPpCHFvxVzsmd4tdB0 wIi8+NBJcdOW8vLH6pN1zEZHrHe O2IDiqC381ByTrcJNyZrop y7vqm5lwwVe4VoQ1TTZtriBwaFx bFQK4n8FjNs83C94gPNlkPHPgJW RvXLQpUHFghByxqy3mxG3p Ii8+EIUkuKR5vGC0zP5iSvAsPaH 3BXejH160IjCohCEpJuktW91sJ0 JvdXA+DRWvLfo6LUHgeMlu VJ5tuLEsKEahYr6oKDA4YdSrVcD oHDkcZ2DcWAUnsdfndokveOQ1UQ ZhJMPklD04Ss0cwGisTBAa kADOjL9tpkdtb1dnrkrzEnIgCYN lOPk7DXi2ZRCjvLvyDvLfGXY2Gs L7MVV5aJWmmP6meUsnjhvw fU3zC9MbBWDfltqnQc95lZ1dMgD tQpO5QTeuCfc+EjZDOkgfS1RIOK rKOoHAZWY9K4WrWxm5RKXv kTywAY0tgKUzWWzmAm0mqRpmrMz bVJ4uYMKyskmkKJIogZ1gJDBxoE CxhKpkFL3tOCZfrrmqb919 FeOdNFX0BFLwxJVvR2RpxH6gDcO qGKMbAKFbA8MzzEAhDLhlJ704ES edVuH4OMZithIyV6PzYVZs hIvkHpB1w0Z1Cz8pVP4qLe5pOYt 1UL85KJ17eATjc4E8gNK2B2DxWR IptrlqedapnTM6VESfVGIq hG57rUHnMAytOn3zu5Z6u254FGA oRJArbY12Xl9aeTudZVDzsKQKqH 3wogyzl2jsczwgFdBbVXFl GVr4GAv9IFIwpWmrYlPrKOH7TlJ 8DTC2lJPzjH9yqExbowrbdO1pCe c+ImUuHSWyznN2Q8TsIvp7 ZVZmeRsfPB1ziMIsQOxpKx8ksKo smMluUN2aQRRkyoycWHZryR6lMG VksKPbgFywMR0eAGXhvhbg a228WwYhBSY4ODLsfLApV5EoqE2 sNiEsQPFlGQOmS4LojUVxRSrwJ2 54PWqmClR9MSRkyoAdK6Ci EPOgwYioRcP4c3G6Ia4NMW8FTVF 9M1ZrHgk7BGWabPcmMA7bxRQuKQ ewTq7dpHofiWzgLG1vDFUb vbbaVNIzqT7dYGYzaQOtcMwaTG7 wQYKhpimnc381AaQoYLE1TDKroB AzU5FtmF5bCaEsPCRkHUPv Q0UqaYEyXIbnM394ZPxmLhH5OPL zdaKmF3MrZTIpiPccFkR3t0T7Wq 5PYnNlcnZhdGlvbjwvdGQ+ FD12xj37Y0XnDihsLse1SFLzMUK 7nDL8oS2aHPNjMTzuu1Q6eQW5B0 YvplIqkv1eb4ldCJDyDJno G16cxBCqr1S3YBAupEW0JLOigMr cNiGijP92Yxh+ZWIceQeqc7YoBq lel5qgo8fqcAm2JnOrETUl yfIdhFyqSVW7s7WvJq83X42uKTu pCFZdNQRdWZNjITAcmJhvrg1jaR 9wIi8+SNKjnBA1jOY7jQ1v CuQiJgN5UOubV929MpCpkESdNbj jt7avl0emcIy4IqVxKQKwchJohL whGIG4b5YfBp76T3RtkAtw j4QtEyb6rp04tEDxq6K3tCY6X6B kYGGehlfayLRhtUhbGL5sTOAdpg qePDHipP1iGNHfR5z0MiUq JpW9PFveL7SpctN9VXVfyJDdNBC ceEVHfL0uqniuu2llwegsRqQySL JhKYz6NAj9CYCsiRwfQvIm JCM3TbP4ZPZ5gZIfsJ8onObcqly gpH4vUte+YUi8d0rmyOPmTK7xsS D3RS11DJ40nXYca2O6zFH3 X6FuOZYukqmtzppesOZ8ZECmWUM tbQ07Qs3tuAnwTg5iOGPlCLC0RF EquEXnE2VobH5nAbAiRCJs ZDWtJ2XvmRXzFGvtK712MQtcBmR 2MOVxhrLvR6RuDQThuMhbXhQ0j1 K2Op2QWR56VV01XI53lVQz y0T5hEI3Q2WjORQylcfzkkwvbLO 5ETJhCFNoiS48Ti8nlNtoBb0bON CmSFD6AOHpuRDbP8MypI5m MjBiWEJlLPXiQ8SfkKDjXImcQ44 4JIepClI0JGWevhQwN6GdKLIcwT aaThS4r3T8Eq3XHy47IA63 IX19qGGtb2Q9mIX2Z0YnJXKcvig skbfveBZ7SEDdMXSxkK60Li2vaR nlEt3nUJXvMJY5QIWemMGg U9VafG5aXnXqWZYxNMVuK6QawFL eAHqhC669UKqyCmA3YAFbtsKjI6 BaKMVffGdpAxW6x0W5Xn5O VWcfzpt0C9PkXceyzXU+XW60DIP qNT11jJFauWGdk7iliDb5ClQiXK NvZMA0mJciHVini7LwMMZz Y29 (more content not included)... Normal [facility] - AP Resultson 4 Lab - AP Results [id number]#1.00OTGTIFF Normal [facility] MR KNEE LT WO CONTon 024 MR [...] Mckenzie MD on 03/04/2024 9:59 AM Normal [facility] Consent Formson 02-29-2024 Consent Forms [id number]2024 Consent Forms [id number]#[facility] [id number]#[facility]ordon 02-28-2024 MAGR Postoperative Record MAGR Phase II Record Summary Primary Physician: Peter Booth MD Finalized Date/Time: 02/28/24 07:49:14 Pt. Name: LUCILA JACQUES /Sex: 1990 FEMALE Med Rec #: [id number] Physician: Param Michelle DO Financial #: [id number] Pt. Type: O Room/Bed: [facility] Admit/Disch: 02/26/24 22:40:28 - 02/27/24 18:45:00 Institution: [...] Signed By: Mya Villar RN 02/28/24 07:[address] [facility] Outside Recordson 02-28-2024 Outside Records [id number][facility] Tele[facility] Strips [id number]#1.00OTGTIFF Normal [facility] .Auto Diff 02-27-2024 Auto Dickey % 8 % Normal 1-12 [facility] Comment on above: Performed By: #### 1 [id number], [id number], 2401817, 8274862172, 4551838, 4066342, 1263270, 7595012 #### [facility] (DEFAULT) [address] [place] [address] 04135 Baso Abs# 0.0 x10 Normal 0.0-0.2 [facility] Comment on above: Performed By: #### 1 5380143, 1873505147, 2549947, 2156032042, 6274394, 4093293, 3034551, 6835519 #### [facility] (DEFAULT) [address] [place] [address] 89757 Basophils/100 WBC (Bld) 0.4 % Normal 0.2-2.0 [facility] Comment on above: Performed By: #### 1 6689292, 7607972089, 0814038, 3285797091, 1777914, 7723741, 0103266, 7439821 #### [facility] (DEFAULT) [address] [place] [address] 38075 Eos Abs# 0.1 x10 Normal 0.0-0.4 [facility] Comment on above: Performed By: #### 1 4264541, 2882209318, 3232654, 4401835531, 4921644, 0464069, 8112920, 2208704 #### [facility] (DEFAULT) [address] [place] [address] 39568 Eosinophils/100 WBC (Bld) 1.1 % Normal 0.9-4.0 [facility] Comment on above: Performed By: #### 1 2997984, 4157402463, 9233045, 8062595254, 0116255, 0992756, 4935614, 8219370 #### [facility] (DEFAULT) [address] [place] [address] 81180 Lymph Abs# 2.1 x10 Normal 1.3-2.9 [facility] Comment on above: Performed By: #### 1 4682886, 2682989132, 1674265, 1791985834, 5764725, 7111399, 3114077, 0075376 #### [facility] (DEFAULT) [address] [place] [address] Lymphocytes/100 WBC (Bld) 28 % Normal 14-48 [facility] Comment on above: Performed By: #### 1 2872462, 7287862042, 9331915, 2744048321, 6431254, 7631911, 4824503, 4684189 #### [facility] (DEFAULT) [address] [place] [address] Dickey Abs# 0.6 x10 Normal 0.0-0.8 [facility] Comment on above: Performed By: #### 1 3739823, 1870081011, 9278969, 9801561803, 8268879, 2793121, 1592479, 3244349 #### [facility] (DEFAULT) [address] [place] [address] Neut Abs# 4.8 x10 Normal 1.5-9.2 [facility] Comment on above: Performed By: #### 1 9144423, 7215645477, 4907575, 5107218829, 2959187, 7890526, 2855892, 9300764 #### [facility] (DEFAULT) [address] [place] [address] Neutrophils/100 WBC (Bld) 63 % Normal 44-88 [facility] Comment on above: Performed By: #### 1 2627256, 0334916817, 7372255, 5505497605, 5513183, 8269064, 0777900, 5222282 #### [facility] (DEFAULT) [address] [place] [address] Amylaseon 02-27-2024 Amylase [Catalytic activity/Vol] 51.0 U/L Normal 28.0-100.0 [facility] Comment on above: Performed By: #### 1 9227502, 0630556963, 6257176, 5270571095, 4628544, 1424164, 4678323, 8635124 ####[facility] (DEFAULT)[address] [place] [address] Anesthesia Noteon 02-27-2024 Anesthesia Note Patient: LIOR JACQUES Age: 33 [...] on: 02/27/2024 12:58 EDT] Juliano Peterson DO Normal [facility] Anesthesia Note Patient: LIOR JACQUES Age: 33 [...] history): All Problems Anxiety / SNOMED CT 70263523 / Confirmed Arthritis of left knee / SNOMED CT 290718289606086 / Confirmed Body mass index 40+ - severely obese / SNOMED CT 2708463769 / Confirmed Genital warts / SNOMED CT 173280664 / Confirmed History of arthroscopy of knee joint / SNOMED CT 9817735790 / Confirmed History of bariatric surgical procedure. / SNOMED CT 0065678201 / Confirmed Gastric bypass status for obesity / SNOMED CT 2375640170 / Confirmed H/O syncope / SNOMED CT 7426731051 / Confirmed Hypokalemia / SNOMED CT 45263547 / Confirmed Hypomagnesemia / SNOMED CT 324192462 / Confirmed Mixed anxiety and depressive disorder / SNOMED CT 346797137 / Confirmed Morbid obesity / SNOMED CT 090493384 / Confirmed Peripheral venous insufficiency / SNOMED CT 46903887 / Confirmed Sacroiliac joint pain / SNOMED CT 713882330 / Confirmed Varicose veins of left lower limb / SNOMED CT 231390967720687 / Confirmed Resolved: / SNOMED CT 443630315 Histories Family History: Clotting disorder Mother Diabetes mellitus type 2 Father Grandmother (Paternal) High blood pressure Father PVD - Peripheral vascular disease Mother GERD - Gastro-esophageal reflux disease Father Procedure history: CT guided nerve block (6095782036) on 01/12/2024 at 33 Years. Comments: 01/12/2024 11:39 EDT - Cuong Chowdary MA LEFT GENICULAR microphlebectomy in the month of 07/2017 at 27 Years. 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 section (35827186) on 11/10/2014 at 24 Years. section (15985393) on 06/29/2012 at 21 Years. Gastric band (0329370717). Social History Electronic Cigarette/Vaping Assessment Electronic Cigarette [...] kg (FEB 26 (more content not included)... [facility] CBC w/ Auto Diffon 4 Erythrocyte distribution width (RBC) [Ratio] 13.3 % Normal 11.5-15.0 [facility] Comment on above: Performed By: #### 1 7748381, 0592348618, 6096262, 1384822389, 1910943, 9284088, 6304459, 6352709 #### [facility] (DEFAULT) [address] [place] [address] Hematocrit (Bld) [Volume fraction] 42.2 % High 33.7-40.4 [facility] Comment on above: Performed By: #### 1 3743726, 2602470797, 6692391, 4973444300, 2308734, 6574225, 6468261, 8299352 #### [facility] (DEFAULT) [address] [place] [address] 90072 Hemoglobin (Bld) [Mass/Vol] 14.3 g/dL Normal 11.3-15.9 [facility] Comment on above: Performed By: #### 1 5602695, 9311569516, 8711545, 9785768160, 1253953, 0115692, 7552084, 7492228 #### [facility] (DEFAULT) [address] [place] [address] 33936 MCH (RBC) [Entitic mass] 30 pg Normal 24-34 [facility] Comment on above: Performed By: #### 1 1742678, 0668045814, 7093749, 2988928009, 9534357, 0058669, 3328380, 9396413 #### [facility] (DEFAULT) [address] [place] [address] 35196 MCHC (RBC) [Mass/Vol] 34 g/dL Normal 26-37 [facility] Comment on above: Performed By: #### 1 5686625, 4971497588, 7353689, 7878288617, 6325307, 3909216, 2511152, 6501962 #### [facility] (DEFAULT) [address] [place] [address] 92927 MCV (RBC) [Entitic vol] 90 fL Normal 81-100 [facility] Comment on above: Performed By: #### 1 9578343, 3507430206, 4003553, 1749636376, 7985364, 0677001, 5423478, 1549515 #### [facility] (DEFAULT) [address] [place] [address] 03141 Platelet 243 x10 Normal 138-427 [facility] Comment on above: Performed By: #### 1 2366545, 5324611726, 6034190, 0443683818, 7983713, 8267643, 1580446, 9269386 #### [facility] (DEFAULT) [address] [place] [address] Platelet mean volume (Bld) [Entitic vol] 8.0 fL Normal 6.3-10.2 [facility] Comment on above: Performed By: #### 1 6328438, 8985066364, 5830241, 4629998797, 2630696, 3269752, 8912148, 6420492 #### [facility] (DEFAULT) [address] [place] [address] RBC 4.70 x10 Normal 3.70-5.30 [facility] Comment on above: Performed By: #### 1 4422284, 4308437038, 4019820, 9611540845, 7483653, 4673299, 3269162, 5484058 #### [facility] (DEFAULT) [address] [place] [address] 43016 WBC 7.7 x10 Normal 3.5-10.5 [facility] Comment on above: Performed By: #### 1 1880136, 3020318865, 0656292, 5132618313, 6807811, 8912614, 3844285, 3330985 #### [facility] (DEFAULT) [address] [place] [address] 65368 Man Diff? Auto Invalid Interpretation Code [facility] Comment on above: Performed By: #### 1 9665179, 3965222646, 1951007, 6525839913, 2726438, 8634416, 8127658, 0938411 #### [facility] (DEFAULT) [address] [place] [address] 65872 CMP Standardon 02-27-2024 eGFR Non AA >60 Invalid Interpretation Code [facility] Comment on above: Performed By: #### 1 6938602, 7552569288, 7845237, 5897407580, 0779197, 1049134, 6455664, 4501169 #### [facility] (DEFAULT) [address] [place] [address] 28662 eGFR AA >60 Invalid Interpretation Code [facility] Comment on above: Performed By: #### 1 9538317, 8885746001, 4545340, 9054380294, 0271473, 9724617, 9143069, 4564553 #### [facility] (DEFAULT) [address] [place] [address] Albumin [Mass/Vol] 4.2 g/dL Normal 3.5-5.0 [facility] Comment on above: Performed By: #### 1 3680801, 7200045496, 9053242, 6797207141, 6542517, 6735233, 2255879, 5229130 #### [facility] (DEFAULT) [address] [place] [address] Albumin/Globulin [Mass ratio] 1.4 {ratio} Normal 1.4-2.6 [facility] Comment on above: Performed By: #### 1 2222051, 4086353584, 7617021, 9807780655, 8507461, 7884502, 2144384, 3352943 #### [facility] (DEFAULT) [address] [place] [address] 21699 Alk Phos 56 IU/L Normal 32-91 [facility] Comment on above: Performed By: #### 1 2960738, 9083376223, 2287255, 5118984899, 4767889, 8466179, 5026463, 4982600 #### [facility] (DEFAULT) [address] [place] [address] 99959 ALT [Catalytic activity/Vol] 22.0 U/L Normal 14.0-54.0 [facility] Comment on above: Performed By: #### 1 7996854, 2393549023, 3156342, 6394870857, 1080008, 8995044, 4470678, 2804606 #### [facility] (DEFAULT) [address] [place] [address] 58202 Anion gap [Moles/Vol] 10.5 mmol/L Normal 5.0-19.0 [facility] Comment on above: Performed By: #### 1 3176396, 3140281998, 4204485, 6413462230, 6626356, 0253004, 1222906, 6808921 #### [facility] (DEFAULT) [address] [place] [address] 95793 AST [Catalytic activity/Vol] 26 U/L Normal 15-41 [facility] Comment on above: Performed By: #### 1 6048721, 7961445151, 0618910, 0096863617, 7353734, 9351498, 2630782, 4090724 #### [facility] (DEFAULT) [address] [place] [address] 92720 Bili Total 0.8 mg/dL Normal 0.3-1.2 [facility] Comment on above: Performed By: #### 1 5179870, 0646216830, 1353873, 7751733963, 2528806, 0567266, 6467188, 2474391 #### [facility] (DEFAULT) [address] [place] [address] 16183 Calcium [Mass/Vol] 9.0 mg/dL Normal 8.9-10.3 [facility] Comment on above: Performed By: #### 1 1337622, 7685004530, 2430640, 5309795043, 1398330, 2608578, 3180101, 6541066 #### [facility] (DEFAULT) [address] [place] [address] 78040 Chloride [Moles/Vol] 105 mmol/L Normal 101-111 [facility] Comment on above: Performed By: #### 1 9853460, 8421898539, 9486104, 9958105111, 2402826, 0773174, 8829719, 0951990 #### [facility] (DEFAULT) [address] [place] [address] 51002 CO2 [Moles/Vol] 24 mmol/L Normal 21-32 [facility] Comment on above: Performed By: #### 1 9169557, 4078765448, 7194257, 2544447147, 9718539, 2123284, 3270384, 6229422 #### [facility] (DEFAULT) [address] [place] [address] 42450 Creatinine [Mass/Vol] 0.68 mg/dL Normal 0.60-1.30 [facility] Comment on above: Performed By: #### 1 5430980, 5355187130, 2140268, 5848781263, 7507579, 3731089, 3501576, 7579417 #### [facility] (DEFAULT) [address] [place] [address] 75887 Globulin (S) [Mass/Vol] 3.0 g/dL Normal 1.5-4.3 [facility] Comment on above: Performed By: #### 1 5281720, 7334741455, 5642248, 0644031660, 7495335, 3714556, 5579751, 4972977 #### [facility] (DEFAULT) [address] [place] [address] 78343 Glucose [Mass/Vol] 93.0 mg/dL Normal 74.0-118.0 [facility] Comment on above: Performed By: #### 1 5371989, 0402074730, 2967074, 8488762009, 3444239, 2262370, 3070044, 3628220 #### [facility] (DEFAULT) [address] [place] [address] 41567 Osmolality 270 mOsm/L Invalid Interpretation Code [facility] Comment on above: Performed By: #### 1 0082936, 4850654491, 3374593, 4759400375, 2775482, 3538070, 3626366, 7950781 #### [facility] (DEFAULT) [address] [place] [address] 50086 Potassium [Moles/Vol] 3.5 mmol/L Low 3.6-5.1 [facility] Comment on above: Performed By: #### 1 4694509, 6083486281, 1942375, 2774276206, 6760437, 7958193, 2421120, 0684392 #### [facility] (DEFAULT) [address] [place] [address] 77127 Protein [Mass/Vol] 7.2 g/dL Normal 6.5-8.1 [facility] Comment on above: Performed By: #### 1 8101216, 1318006776, 0913462, 1612860890, 6985363, 0482878, 6441220, 0519898 #### [facility] (DEFAULT) [address] [place] [address] 87477 Sodium [Moles/Vol] 136.0 mmol/L Normal 136.0-144 . 0 [facility] Comment on above: Performed By: #### 1 4681280, 9792469068, 2540303, 2478528391, 2303452, 7260479, 8055514, 8290660 #### [facility] (DEFAULT) [address] [place] [address] 10006 Urea nitrogen [Mass/Vol] 9 mg/dL Normal 8-26 [facility] Comment on above: Performed By: #### 1 8964596, 1280736467, 2300565, 5576235063, 0959822, 6454085, 4090099, 3120466 #### [facility] (DEFAULT) [address] [place] [address] 47779 Urea nitrogen/Creatinine [Mass ratio] 13.2 mg/mg Normal 4.6-16.2 [facility] Comment on above: Performed By: #### 1 8163818, 3945636007, 2452298, 5747297984, 5789188, 3123864, 5531440, 3675102 #### [facility] (DEFAULT) [address] [place] [address] PE Chest/Abdomen/Pelvis w / Contraston 02-27-2024 [...] MD 02/27/24 2:37 am Technologist: CB Thomas [facility] ED Clinical Summaryon 2023 ED Clinical Summary [facility] - Emergency Department [address] [place] [address] 61074 ED Clinical Summary PERSON INFORMATION Name: LUCILA JACQUES Age: 33 Years Sex: FEMALE : 1990 MRN: Acct#: Visit Reason: Abdominal pain; ACUTE CHOLECYSTITIS Arrival: 02/26/2024 22:40:28 Discharge: LOS: 000 09:38 Check In: 02/26/2024 22:40:28 Checkout:02/27/2024 08:18:49 Address: [address] [place], [place] [address] PCP: Provider, None PROVIDER INFORMATION Provider Role [...] recorded.. Surgical history: CT guided nerve block (6892826974) on 01/12/2024 at 33 Years. Comments: 01/12/2024 11:39 EDT - Cuong Chowdary MA LEFT GENICULAR microphlebectomy in the month of 07/2017 at 27 Years. Comments: 03/19/2019 10:05 EDT - Margaret Perera PARKING ANALYST left leg Gastric sleeve (7613903965) in the month of 07/2016 at 26 Years. section (70501079) on 11/10/2014 at 24 Years. section (99586498) on 06/29/2012 at 21 Years. Gastric band (9353462472).. Family history: Clotting disorder Mother Diabetes mellitus type 2 (more content not included)... [facility] ED Note - Physicianon 2023 ED [...] recorded.. Surgical history: CT guided nerve block (5290620571) on 01/12/2024 at 33 Years. Comments: 01/12/2024 11:39 LUKET - Cuong Chowdary MA LEFT GENICULAR microphlebectomy in the month of 07/2017 at 27 Years. Comments: 03/19/2019 10:05 Margaret Catalan LPN left leg Gastric sleeve (7386810699) in the month of 07/2016 at 26 Years. section (04637640) on 11/10/2014 at 24 Years. section (11232395) on 06/29/2012 at 21 Years. Gastric band (0169602223).. Family history: Clotting disorder Mother Diabetes mellitus [...] Respiratory: Lungs ar (more content not included)... [facility] ED Note-Nursingon 02-27-2024 ED Note-Nursing Pt arrives to ED alvaro m 7 complaining of abdominal pain. Pt states it has been going on for a few days, Pt has history of gastric bypass done at a [facility] facility. Pt denies any other complaints. [facility] ED Patient Education Noteon 02-27-2024 ED Patient Education Note Education Materials [facility] ED Patient Summaryon 024 ED Patient Summary [facility] - Emergency Department [address] [place] [address] PATIENT DISCHARGE INSTRUCTIONS Patient Information Name: LUCILA JACQUES Age: 33 Years Date of : 1990 Reason For Visit: Abdominal pain; ACUTE CHOLECYSTITIS Arrival Time: 02/26/2024 22:40:28 Primary Care Physician: Provider, None Attending Physician: Maurizio Mast MD Comment: Visit Diagnosis: Diagnoses This Visit Abdominal pain ([id number]) Acute cholecystitis (K81.0) Biliary colic (K80.50) The Pharmacy at [facility] is open Monday through Monday from [...] alcohol and/or drug addiction problems; contact the [facility] 17/04 Crisis Hotline -text 4hope to [phone]. If you received any narcotics, sedation, or [...] and treatment you received today in the [facility] Emergency Department were for an urgent problem and are not intended as complete care. It is important for you to follow up with a doctor, nurse practitioner, or physician?s assistant boys track coach for ongoing care. If your symptoms become [...] so we can reach you if necessary. [facility] Emergency Department has provided you with a complete list of medications post discharge. Please inform your alcohol rubber/provider of your visit and for further instruction [...] for D (more content not included)... Normal [facility] Inpatient Patient Summaryon 02-27-2024 Inpatient Patient Summary [facility] [address] [place] [address] Patient Discharge Instructions Name: LUCILA JACQUES : 1990 Patient Address: [address] [place] [address] Primary Care Provider: Name: Provider, None Phone: After you are discharged if you find you have any questions, please, call [phone] ext [phone] to speak to a nurse. The Pharmacy at [facility] is open Monday through Monday from [...] alcohol and/or drug addiction problems; contact the [facility] 17/04 Crisis Hotline -Text 1SJVZ ux [phone]. If you received any narcotics, sedation, or [...] business decisions or sign any legal documents [facility] would like to thank you for allowing us to assist you with your healthcare needs. The following includes patient education materials and information regarding your injury/illness. LUCILA JACQUES has been given the following list of follow-up instructions, prescriptions, and patient education materials: Follow-up Instructions With: Address: When: Peter Booth [address] [place] [address], [address] [place], [place] [id number] Business (1) In 2 weeks 03/12/2024 Comments: Call for follow up appointment With: Address: When: None Provider [address] [place] [address] Medications During the course of your visit, your medication list was updated with the most current information. The details of those changes are reflected below: New Medications [id number], [address] [place], [place] [id number], [phone] acetaminophen-hydrocodone (acetaminophen-hydrocodone 325 mg-5 mg oral tablet) [...] problems or questions, (more content not included)... [facility] 02-27-2024 L Specimen: [id number] Received: 02/28/24 Status: [facility] Num: [id number] Spec Type: Surgical Subm Dr: Peter Booth MD Tissues: A Gallbladder (GALLBLADDER) Procedures: HE/2, Gross/Micro L3 Age/ Patient Sex Location Account Attending Physician Lucila Jacques 33/F [facility] [id number] Maurizio Mast MD SPEC NUM: [id number] RECD: 02/28/24 STATUS: [facility] NUM: [id number] NIELS: 02/27/[address]: Peter Booth MD ENTERED: 02/28/24 [facility] DR: EdilbertoLab SPEC TYPE: Surgical DEPT: [facility] ORDERED: HE/2, Gross/Micro L3 ORDERED: HE/2, [...] gallbladder wall measures 0.1 cm in thickness. Pellet Preparation Operator sections are submitted in A1 (gallbladder) and A2 (lymph node). CPT Codes 47981 Specimen: [id number] Received: 02/28/24 Status: [facility] Num: [id number] Spec Type: Surgical Subm Dr: Peter Booth MD Tissues: A Gallbladder (GALLBLADDER) Procedures: HE/2, Gross/Micro L3 Patient: Lucila Jacques [id number] (Continued) Signed (signature on file) Domenic Hopper MD 02/29/24 1457 Normal [facility] Lactic Acidon 02-27-2024 Lactic Acid 15.3 mg/dL Normal 4.5-19.8 [facility] Comment on above: Performed By: #### 2 [id number] ####[facility] (DEFAULT)[address] [place] [address] 04697 Lipaseon 02-27-2024 Lipase Level 30.0 IU/L Normal 22.0-51.0 [facility] Comment on above: Performed By: #### 1 3474716, 8939286871, 6479802, 6496149505, 4054525, 4411651, 3612025, 7959993 ####[facility] (DEFAULT)[address] [place] [address] 87453 MAGR Intraoperative Recordon 02-27-2024 MAGR Intraoperative Record MAGR Intra-Op Record Summary Primary Physician: Peter Booth MD Finalized Date/Time: 02/27/24 12:38:12 Pt. Name: LUCILA JACQUES/Sex: 1990 FEMALE Med Rec #: [id number] Physician: Param Michelle DO Financial #: [id number] Pt. Type: O Room/Bed: [facility] Admit/Disch: 02/26/24 22:40:28 - Institution: Case Times [...] Role Performed Surgeon - Primary Anesthesiologist of Admissions Consultant Record Time In 02/27/24 11:31:00 02/27/24 11:01:00 02/27/24 11:01:00 Time Out 02/27/24 12:19:00 02/27/24 12:36:00 02/27/24 12:36:00 Procedure Cholecystectomy Cholecystectomy Cholecystectomy Laparoscopic Laparoscopic Laparoscopic Last Modified By: Bre Spaulding RN, Debra RN Myers, Debra RN 02/27/24 12:35:49 02/27/24 12:35:49 02/27/24 12:35:49 Entry 4 Entry 5 Entry 6 Case Attendee Dina Malcolm DIRECTOR OF STRATEGY & MOBILE, Marie Miller, Will LEBLANC DIRECTOR OF STRATEGY & MOBILE CSFA Role Performed Vamp Marker Vamp Marker Scrub Personnel Time In 02/27/24 11:01:00 02/27/24 [...] Juliano Peterson DO, Bre Spaulding RN, Dina MalcolmA DIRECTOR OF STRATEGY & MOBILE, Tru DIRECTOR OF STRATEGY & MOBILE, Marie LEBLANC CSFA, Will Miller DIRECTOR OF STRATEGY & MOBILE Last Modified By: Bre Spaulding RN 02/27/24 11:34:44 [facility] Text: A.280 Identifies baseline musculoskeletal status [...] E.290 Eval (more content not included)... [facility] MAGR PACU Record Cesar griffith Primary Physician: Peter Booth MD Finalized Date/Time: 02/27/24 14:07:36 Pt. Name: JAVAD JACQUESTLIN MAXINE Jackman/Sex: 1990 FEMALE Med Rec #: [id number] Physician: Param Michelle DO Financial #: [id number] Pt. Type: O Room/Bed: [facility] Admit/Disch: 02/26/24 22:40:28 - Institution: PACU Case Times MAGR Entry 1 In PACU I 02/27/24 12:38:00 Discharge from PACU 02/27/24 13:40:00 I Last Modified By: Yarelis Schmitt RN 02/27/24 14:07:32 Finalized By: Yarelis Schmitt RN Document Signatures Signed By: Yarelis Schmitt RN 02/27/24 14:07 Normal [facility] Magnesiumon 02-27-2024 Magnesium [Mass/Vol] 1.86 mg/dL Normal 1.80-2.50 [facility] Comment on above: Performed By: #### 1 6138189, 1046866214, 3062298, 6166035782, 8811777, 1668540, 0234501, 2827247 ####[facility] (DEFAULT)[address] [place] [address] Nutrition Noteon 02-27-2024 Nutrition Note Chart reviewed; 33 y o female diagnosed with s/p lap choly; diet order full liquids; patient with history of gastric bypass surgery ; no difficulties with chew/swallow identified on admit; encourage increase po as rachael; rec advance as rachael to regular soft diet; will monitor po with diet advance, wt/labs for changes; follow, assist prn. ts Normal [facility] PTon 02-27-2024 INR Coag (PPP) [Relative time] 0.98 {INR} Normal 0.91-1.11 [facility] Comment on above: Performed By: #### 1 [id number], [id number], [id number], [id number], [id number], [id number], [id number], [id number] ####[facility] (DEFAULT)[address] [place] [address] 34128 PT 10.2 second(s) Normal 9.7-11.8 [facility] Comment on above: Performed By: #### 1 [id number], [id number], [id number], [id number], [id number], [id number], [id number], [id number] ####[facility] (DEFAULT)[address] [place] [address] 80843 Test Serum 1on Preg Serum Internal Control OK [facility] Comment on above: Performed By: #### 3 [id number] ####[facility] (DEFAULT)[address] [place] [address] Test Serum Qual Negative [facility] Comment on above: Performed By: #### 3 [id number] ####[facility] (DEFAULT)[address] [place] [address] 79347 TnI HSon 02-27-2024 Troponin I High Sensitivity 3.0 pg/mL Normal <=15.0 [facility] Comment on above: Performed By: #### 1 [id number], [id number], [id number], [id number], [id number], 6524910, 6263516, [id number] ####[facility] (DEFAULT)[address] [place] [address] UA w Culture if Ind Standard on 02-27-2024 Breakpoint UA [facility] Comment on above: Performed By: #### 1 [id number] ####[facility] (DEFAULT)[address] [place] [address] Color (U) Yellow [facility] Comment on above: Performed By: #### 1 [id number] ####[facility] (DEFAULT)[address] [place] [address] Culture? Not Indicated Invalid Interpretation Code [facility] Comment on above: Result Comment: Resu lt created by rule GL_MAGR_ADD_UA_CULT1 Performed By: #### 1 [id number] ####[facility] (DEFAULT)[address] [place], [place] [id number] Glucose (U) [Mass/Vol] Negative Normal [facility] Comment on above: Performed By: #### 1 [id number] ####[facility] (DEFAULT)[address] [place] [address] Ketones Ql (U) 40 Normal [facility] Comment on above: Performed By: #### 1 [id number] ####[facility] (DEFAULT)[address] [place] [address] Micro? Not Indicated Invalid Interpretation Code [facility] Comment on above: Result Comment: Resu lt created by rule GL_MAGR_ADD_UA_MICRO Performed By: #### 1 [id number] ####[facility] (DEFAULT)[address] [place] [address] UA Bilirubin Negative Normal [facility] Comment on above: Performed By: #### 1 [id number] ####[facility] (DEFAULT)[address] [place] [address] UA Blood Negative Normal NEGATIVE [facility] Comment on above: Performed By: #### 1 [id number] ####[facility] (DEFAULT)[address] [place] [address] 57262 UA Clarity CLEAR Normal CLEAR [facility] Comment on above: Performed By: #### 1 [id number] ####[facility] (DEFAULT)[address] [place] [address] 22461 UA Leuk Est Negative Normal NEGATIVE [facility] Comment on above: Performed By: #### 1 [id number] ####[facility] (DEFAULT)[address] [place] [address] 22911 UA Nitrite Negative Normal NEGATIVE [facility] Comment on above: Performed By: #### 1 [id number] ####[facility] (DEFAULT)[address] [place] [address] 58532 UA pH 7.5 Normal 5-8 [facility] Comment on above: Performed By: #### 1 [id number] ####[facility] (DEFAULT)[address] [place] [address] 90785 UA Protein Negative Normal NEGATIVE [facility] Comment on above: Performed By: #### 1 [id number] ####[facility] (DEFAULT)[address] [place] [address] UA Spec Grav 1.015 Normal 1.001-1.03 5 [facility] Comment on above: Performed By: #### 1 [id number] ####[facility] (DEFAULT)[address] [place] [address] UA Urobilinogen 0.2 mg/dL Normal 0.2-1.0 [facility] Comment on above: Performed By: #### 1 [id number] ####[facility] (DEFAULT)[address] [place] [address] Urine Source Clean Catch Normal [facility] Comment on above: Performed By: #### 1 [id number] ####[facility] (DEFAULT)[address] [place] [address] US Gallbladderon 02-27-2024 US Gallbladder EXAM: US [...] Miranda MD 02/27/24 5:19 am Technologist: JULIEN [facility] XR knee LT 4V*on 02-15-2024 XR knee LT 4V* [facility] [address] [place] [address] XRay Report Signed Patient: Lucila Jacques MR#: [id number] 31 : 1990 Acct:[id number] Age/Sex: 33 / F ADM Date: 02/15/24 Loc: [facility] [place] Room: Type: [facility] Attending Dr: Santa Estrada II, MD Copies to: Santa Estrada MD Ordering Provider: Santa Estrada MD Date of Service: 02/15/24 XR/XR knee LT 4V*: M25.562 - Pain in left knee ([id number]) XR/XR pelvis 1-2V: M25.562 - Pain in [...] PROCESS. Impression dictated by: Haile Palacio Jr., D.O.02/15/2024 3:38 PM Dictation Location: [place] [address] Transcribed By: [facility] 02/15/24 1538 Dictated By: Haile Palacio Jr, DO 02/15/24 1534 Signed By: 02/15/24 1538 [facility] Coding Summaryon 01-31-2024 Coding Summary HTMLBase 64 PgunvbgfZZw3hZu+PGhlYWQ+PE1 NCYAdF05wbLDrzT7hO3GRAOxRCd dqHRPJUNcWHeNybqJrSV1meHTcV XJu IC8+QN6wWUPaEcowbDZlw8B2yWU 2T51ddr6qGOlvpDQ4STIcIuOfxe vdn5gvlRf0GOboZkitOhRu SJMaeP36WYT2uF36Mv10eVBbrCR df7acvYz9McBnOLPpJLI3mLmmKQ ovj2AuDCDgH03vxKXja3S4 ZUWjnBissRZiKkCizLL5sC0cIMj ntjeur8nckirlMvn7zc10uHPcp6 A2pWX4Q8BmgfH3YKSeoCYm XzeuxWQQvT5bualxo5ymyyfkFsK rGBCgXDv5IEl5XZTaqXluTmHzPL 46ZJO8RDUjuuHnS5FjMQQw iZzdNvC2w6Z1Bh0CS0BXMsipA9S NTUFSWTwvdGQ+YB08mo99Z3TaLo mqYda3IFFtVWI5wAV4mQ7y PFPqANcpg7X0aXD0M5EqeiFvtk5 na0ckJPFhBXkzR40enRLlf5O6IK GctKM6VVMoyHbvGsXmvE49 Oyc+RBTnrAqxi7YgXtzdf8xzr8u fnFb1ElsbFQIcqrOjzSihLWZ9e9 WsEn2rFTLzbJM8dFS1sB5y ZzYoJnE2QIzpP656VuFvzKHvErj hY90xZ2JxmHA+VKZjWoy7IJDkgB ruZX6qI5ZpSIGeoxpbfDFm gGyoLC0nWTLfzzwhKECpnT4eYAN rV7m5MiZjGnM6OKuwL9JxOKHuez ppQc42uO0uRvSlNxV0ESpc Z2TrujW4LYGooBItRHpaMAY7C07 zx5T1XGMdINEqCSW3qIJ4lX7mwG lnbjogbGVmdDsgdmVydGlj QEstHEewE588TOWdfHncXoRqJHb uZyBEYXRlOiAgMDUvMDgvMjAyND wvdGQ+VBJpTKU5dNlnVVSy bWViCOjkQh1ogYqmwFhhFM8jXAT qmrvrFZOdaB8uHTHxpUAhqPdeCS 2bHQAuhgnsq244YmQcQFZ1 FEWsoPLhX0NdvY9qFmVbFKWnLDX kV4MtyCCrESyoR058FZbpJlL3TM FllaWqU8PpJHDgcLqdKuK0 z9O7Ha6Qq0SwheuiQ7ZjhBYmVkN yHfxiROl0C1CpUiyllSP+PC90YW AaJQ76OUc1GLP2eDixBPnw GQKrX6CvhZ3fMlGpRCGoINFvNkl +PHRhYmxlIHdpZHRoPScxMDAlJy NqiBaoQZ0tSj9rSCPvUCIq aWxkpKDwMvErs1hxFLGzVEtfBQ2 jeWztZ2HemTV2ZWJlx1s2Xq04O0 5vV5YkvKM+GGNngKT2jVC5 iO8iJzMaSgS1JZagP163KrDogAU zRucid9ezm0cgjKs4FhI1NHSbbu VshQnjZXJ2n5RmQq33V64h IHdpZHRoPSIxNSUiIHZhbGlnbj0 jqF0bMc4+HIAemWX5rGC9bL1vRq OgTzL6HMjjQ306AjMwvVEr Iyacv5het5dxxXy9MxPkOEMrrdJ fyEgtMIY4y8MqAh31E1OljDolj7 NdWeu2qi78cLGhr8F3uPR5 V4AqJEHozfofpHJyaXbrHE4mODC khzczUGZimF9dOWKpW7k5NjLqQk N9ULgfU1StodU8CZVsnWEi UGUmnPLErG4iccjsa2ltegqiXcY aADNjGIv2DCj6MMUxxIsjOgNmAT X3MxR2YFF1tTTvrT8hsCnf vorqaZ9oDcc+FVL7tUCarYYDQV3 lOjwvdGQ+GQCcAVI8bOcpTLooAT WxcJ3sTHVeQ5y7DoIvEoT3 XUneY3BypnU0DRYeuYWoCOZneSW HcA6csrjop9vauckvSzRiQJOjUV q4DBk4SHOxkMyoQzNfJYT1 WlS6WNM1cSBklH0woIobvfdphX3 wOyc+PtdliXfbTIO5HRy4N6YuBl n6SYKnkUiuGG7rkGReAIxo Bi2uiGtprJwlGS9tFDJljbmbu65 3WzIaa8vvHTQewAShODviZKU2L6 6xb3W8SDRhLAJeITH9iDK7 kD6biOwzmohtxOEhyZvesiXeuEa oXOnuBQskQ082FBGzfWyjOyZtGB l5B7AxRcd7WGUtoDxbLA3l bKHsPXfzJe5ijGlvnAlsGX0xSDT lozfks294CoTcl2riCELqdIFvIT zjGVY6Q17sy0Q3HFBmWDKp ZRR6sGC0bV0moKilojdjyPZopIq oqpVjnHusZGkvIJetR328DUFcnG pwDdPnjTg8P0RpNzr4WVAe wZetHR3caMAfJIcqXh2exRtgtMq bLB0vJFPbfmlgn021AwZhz9vtDI TimZXcPMqaWQA2N05bi2P3 GRNcTHEoFDU8rGS4jJ2iaRkitpy gbGVmdDsgdmVydGljYWwtYWxpZ2 46IHRvcDsnPlBhdGllbnQg XYroNHm8R2UgAdiuvQW+TY43AXR dXU41lYYrkSAlh5sosFk9FcJeBD TdWEW3sWziRLdak9SnUIWj M46teIFrl7V2FSHpyEtwbBMnVzJ tiSH5mC1qNKyznrayo1uhlamgNc spm1bjuy73pY02Y68cZZwv AQMuRGDdPQArJNHukBzjkh9udH8 wIi8+WBWlvYS5xZR7mD0rSXZpMo K1BEbbY701UnVsvUOxCohj d4iui3xydOn3DjI2AUIpfgUbiAh gEPH2s8CzCr38U01tOAilIBSuFU PnFIFyDHCqoRuzsc0csE2u Ii8+PYCeyOH2uLX9aD0wIxIkRmJ 1GVrdO597CjEeeTWbHtfsX85xG5 JvdXA+STHfUmx6BFTbwShf JL2rhHZxMLfvJq6nJEI4YjHiIaM eMUyzD9ZdAEAfdlvgaspgrUM0FL AtYZLgpJ24Tn3vuPbpLRQr aRXXoS3rzdzlv1cksoxpPyPaAZM lVWk5EPd6JVEolXlgKhScUQT6Fw Z4WYP9uEJwyE6dmLashklt aW0zJ7IsCIJkbvbrRx06dX2oOcP bAoP7XXbgXyg+MnPIPmakP2WYEE zWEbJHRKS4Y9XhHin8VRIp kXlzXE7zbLVbAZmeTk1prNnjgPm gCA3mGDHgvccrNPTojJ6qBDIdsI BicGnxBS4xYDDsovzes575 CyVcYZV5WCZpsVZbN7CesT7cZxY nQWVmAVGmO2OqjMYmSZmjU310LN piHqE6KZOervQtJ2YsVVBn zTizOkD6b9M9De6kEP7eTl2gSMe 1ID31QJ71qNFrm6G0tXL5B3YeCX VmgnixfawchDC4IUMuGTGx oE33kFRoICtfKc9nj2Q5f261GSZ rIJVdoI97Zu1fcOytLLZhbGFNqY 0vpuyoj4bubbfyLaHyITWp ENh9LFi1MBYsaSnuYbKzMJW1QkU 8DIZ9lXGdgF6fiWjyrgssqG0gSu c+UeBiRAJjtbK7A8XmVos5 ZITjeVmuBM0drPHhIOtaXk0ewVq xgJrbIV7iPBUjppqjKCBfqO9aOU GqcCPevRjfWY1vDUCqydqe s044SpNtQWT9DMPwiPSwU6ShjJ1 lTcWoVTLaDZTbR6PfzRCkDXtpJ2 40RLwaFxW4MMFhulRwX8Fd THRnwJdbRdD1r1M6Uu1FNJ1XOLJ 0E2MaGtp4DUYfcSjbLU1jaKNyXE jgIt7pyAwroSpvJT6pKOBh uqakRIRmyS6vKPAtfAMnuIetZO2 sFTUkzguaf474KdBhRCU8MLRioC GcE5UgiL8kQcYqUHOvIHRz C6VzkJNlXOkhH868WDsrMoZ9DNH uhuIvD7WjWDSxfHswWwB7z0Z3Yu 5PUDwvdGQ+DZ10pw37X9Fw KbueFdt6GEDtRKO2pIY4qH8pTQY yNCdpa2S3eBR0O6CbwfDsvy2js0 grRWQpEGhkV64bcOFwx8Q5 OSOoqYF7WUJikPlnTnBwmM93Kun +NJSgqNqzd6AmSekft8hls8wrmA r2ViGwIMKlmtRsnGcmLBA8 x1SyJj09U51bRGygDUByKNGaEIK eIIZgeUjoaa6tiA1hKv2+PGNvbC M1kXE3dI4fToQjLfI9VFnk A631PtCglENdXoova7hoh1usgQh 8WyPrLSSsqrPlbPhhNIT5l0CrAz 37B6VjhLyse4GnOiq5yk74 bHWmm6U8mXV1W5IkRIOgsnqbwVH xqAwfJK9yOEQfpyzxQWPfwQ8jEL DnG4i2OyOsHaL8HCbmZ3Ft dgL5EXJoyJVvWPTjwIWSfA8hfxk tk9uikxchFkBhMQDeULh8HBd5NH YbqRupOgIwJTG2IxM8DTO3 lDNolM0djKusurkblQ6xGjg+UGh 9o4pobPJzZV6ihET3HC11ZS77hW Gub5M6yNX6K2AvSBJiktjf badyeSB3GNYvFWFnpV78Ky7dgJr nBe8nAQVdNMF7MVDznPIrG9LrxZ 1gGzMjPDJoPDEsR2CfqQHp WWgmT265YKlfQdU3QIQkbiErV0N eQVBquZpkEvT6h2U4Af1RQM40MK 32VE61dCFpl9K5rOR8J2Pq WXUtjudurfumkAQ3LYKdGAIujM6 7Bn2cqWzuNn2ySNSeIQH8HLPwaO UaM1IouF1aDyPwSGUtJOFx H2CdsRDwMUtoQ157CWbqSzP9RGI bkgFmD6TrBJFvkObpMuE3t6W5Nu 4OLx44UA80DC36uYAve5D7 vCI5Q3XjSWInubntfgrocDS4QMV wLWDjjI38My9nkSdpUv4rMCDwQG H8EOFdzZXuD6ShlJ2nIlLa GANbFRKrX7FxbZXqYXuaW555ZTa hPjB1JNUyvuCbX7UvJKOwzFwrIg O3n7Z1Ik5KFRafdfl9S0Vo PjwvdHI+QB65OQJmSL30vOIkpFH kt9bjjUu4JlWcUDUaQCP6dNenFD uqw8YrIPYaR43opWLno1M9 IGN (more content not included)... [facility] Progress Note - Provideron 0 01-29-2024 Progress Note - Provider [id number] [facility] Coding Summaryon 01-22-2024 Coding Summary HTMLBase 64 OrcijgaqKXv5kIk+PGhlYWQ+PE1 WXSDqS64idFPayO6yV6AOTZjFMc fpXARGKVoYVwZgheNoTB6yfCOfA XJu IC8+DO8dBBCvIpnggARnx4R6qCN 7U12ook4eYMsocKY3LSXbKcEkby zhn8fxpNt9KApoKadjDbVs JVVrqP41LZX7vT25Ih20vIAkjYI kp1zzuEh6SxTbVQTwPLU4zUoiAK kip0EtVNNgV96dgPFhh6N9 EQPidUtzqLVsYxCsjSS1cU5lWGz yzmtib3nxlkcvJbc6yc85rMWfq5 M4fXN9N8YkuuS4TVPliNGz InbcpNQTaR7imeggx7qjqgcoDoI cRJDoIBi4SEp3BYRbfJdaWsWkUA 62ITM4SHFsrwPaT9FvQHLr kPkvIpU9h6E4Qw3QD7JGKouoG5C NTUFSWTwvdGQ+QF28gn99H7ApNf ckCdq8CRDpBWS3yOH8uZ1a OZDrBQlkk5L3mSO4Y7LbcgNgjv6 nl0eqMOLaWYomZ56qhTNzy9Q0RY OwxXU3LONghWunJdEgzU26 Oyc+XADuaIgtj0HrXupec3sjn3n bgIj7RhgjWHJkokHmjVbwUVA9g9 TfYr2wYZIamKH9mPF0aU9a UkKlYbS8KRllD438VtEmtPIiOcn xA64iV8IsaJS+TSUkHss4AWBqpW poUF0gV4JwYQOnxfymsDKh eQazPB3vYTQuievtUDWvvH8wXTE qT0c3EcVbVkH1EIrjG9FdYMGiia bhDz91lJ0rMvDwUwS0CHyt E1LtyjR9OCYayOKdQGexNRC0X00 do4U1GFJlWYFxPKS6nNU2nS1jmH lnbjogbGVmdDsgdmVydGlj MAclPZtvH070NEVjuNalJlDkZOb uZyBEYXRlOiAgMDQvMjkvMjAyND wvdGQ+AUBvULO9xJavNCEa kJXaZKdyAg9yaSajuJgqKQ8fBHI hxqazNSJbkD8sPROklLYarTwyMD 6kVEXrxzlzn598LxFcTKZ9 WQQnuFTrL9UprC3rIaCbPRTmPBN cR1SwyOEgWRplN632KOjtCdX5HP LqcmQzG2ZmPOAakAneCcX7 t3X4Ua0Jj0JgdjsxM2JuiZBuLkO bPtgzATx1G6XvJiuloIQ+PC90YW CrAY70PWt8VNO5rKycLFus IVHfR7FiwJ1dAtPfJZKsNTFrRbp +PHRhYmxlIHdpZHRoPScxMDAlJy NgtOvjSS0qBv5eVMJsBWDb uSamuWMuFeOdm3upJYWzPChoZM5 kdWynH2GstPY9VJZms8g4Ja80G3 1nV8FwzVD+TMOngWI3wOE5 lB1wKlTmSbX5WDriR703RiIrfZO xXdbkb3oeg1iqiXw9JqQ7DRSsbd CnuEuhAQZ6j3DeWc39I09z IHdpZHRoPSIxNSUiIHZhbGlnbj0 eiR8oSv6+PRFzrQW5yWV3kR7iFx FxTbJ1VWuiX934SmRmrIVb Bkivg0gqo3kkcEf8VwHzKJOxfkD epFcdNXI2u9DfGn02V8TgaOsuw2 VjFsc3yo21zMKlp6P9rUM3 I2EkJQIhquqhbQPdoJgtYE6kQXB nnzpiXIYkjC4yGCRyN5y3SpEjKn H9DCqbX5TveoR2GGMknCIn RQXbpCEVwZ4hgbwgf5jpkolzVzF lOHKzBJr4TKs1PSAteZduAvCcZN U8UjX5QKC0eLKuuZ1znOws wfvjyR0tXvg+ZOT6oPBpqADVTG8 lOjwvdGQ+VIGiCIY0pEeoMGmqKF VtqO2vDFXyO5o4GsBpAkZ7 DTomZ0PnciW1NCHcyXQdQYZyuAF FnB2dutxfg0ksmuobZcMfCXKvIQ r1CKu3YGPgyKujOqRqFZQ5 HlM2SBU5tPLwuF3ziRodkogvfY5 wOyc+YdjnbUlpJVK9REt2T3QzXo a0BMKymBofPD7izYEvWYfc Fc4fwHwytNkvIN5cTSFamdywh03 5SgDfb0fwHMMwyBNpDFnxHTL8S4 4hx0W3GRMqTJMjSUK5dXC1 lM2fgIpcdmmvvXYudTanewJegJb yGAjhEXhqQ263FNWjwMkkJdPmNL y2P5OyQny8PTJzuEuzPE9s mCQgYKsyPx6ftTvshXgaBP4yGKF mlxpof556McKvn0exCKOmsKGdQE bfBAQ3F80nh5G2LVLuLOLc DUX7fZZ0kJ8tiAtginuvxAGvnIj mprIypTwaUYrfGJfyF112KBAqiN kuVnNvmDu3O3CsYss0XXCk eXrkZD3wgHPkXSrgHc7qqInofSy oMB6pJYHkoxqgs152XuPix3gpWE DhoXNoEFzqDFN8Y17ya9Q6 IZDlAIBqYXJ8tYN6dS2mkCyiavu gbGVmdDsgdmVydGljYWwtYWxpZ2 46IHRvcDsnPlBhdGllbnQg EIhdCOw5U7JdJbheoDG+PW67YXI kQH61zUIuxHTjc0gtwSh4KnLnYZ GiCMD7bRpgHAwfi4IoUCAy T63byIMuw5S2UBTpzOahaLScSiQ yyJQ2tW2xJCcdatzfm1igvbhyPf wle5zach00nA39Z86aNNfg JLEaJIXwZWWkEEAvkPkgjz4qhL4 wIi8+KQHiaTZ7wLX7rS0jIUZkMh U7XAvbS797WcGcxCWlWcdz f4zcq9dopKq6GsE2SXPqfcBeyPr jTWT5d5VuRl55Z77qOOuvGOMyIL LgHGXnLTDwpQhzbz8nhX2p Ii8+QIKqpPG3qGZ0zZ5dQtDmZiI 6XNiqY609GoFebQHfIzbkG53gP3 JvdXA+ELXxXus1GMHcrVoi IA9pnVVnHDcuBo3iBBC0LjThKbL sLXyzL1YaWJUelhyebtrcjZR8PW KqILPydV82Bj0hgJbuWGHo jWRTvY7abmbwu0wgjogmUdEiMMT dRMx7ZFf2SQUpoQsqQnHcGQF2Kh F7PHB3hBUaxY0yhZmnqmqe wZ5vY8EpZVArlxglAx87iN3cOaA xLwO0TQpdSyy+NlDCLbuoW2WJEQ bHNnQNOAG3K3RkRvw3TQPo nLhvKI8xqGQdSYjyIj7joDmacEh kSW4dOQXzckkeETZnfC9eLDQirP DzfUhgYB8fPYLcxtblm994 GsDoBNM9NQJyhBEdV4UolT6hAaC aGARtFEVaF2QpsSCuOJueN527MV sdLoV5VBYvemBqN2QlLYNm kAtdMkI2q9E3Lm5cMN1bGe0iIEj 4TR82XO18dFBdy1M4mGM9H3QhXI OxeqqqldtxcZO5ANUdKEKz yW46lVTdGUttHi4mv6D3p738HQA jVKLneR14Mm0juQzgZXIlfPUYyP 1iqsihe7pignviWxZqWAXx MLv6CKo1DKDylZuwKjKvZUG3CqI 4TSM6iWIpzJ4nzUwayceklN7oEg c+ZzRqBEKoebD6X4UeVbt1 JRFfxXsnMI9bfFYgGChcTo0brOg kcFfkQS9cCDQvfiwgNXLxjM1gNU WskMUkvGpfBI8kSWRxkqoj r916RcSxLUK0WFYpjPKuX2FdeE4 kLjUyLEHoYPNbV2FqpQNaWQyyD7 93QKeeDeE4LXUoxgRlR0Kj HHEltVukMeC2e5Z3Ex4RPJ0DFTB 4H0NfJrj3ASEqsYnxND0hyDHsBN jmNt0pzEtswAwnBP4jRSVh elswXXWdsH5iFTBljTVrxBvcCQ6 wGMZpjmsqv369ZoIaRCT4EDZgcS FsF3BtiY3zAsCgGWCeBJKd Q0ZxiRHcGAdnF342JWahPsQ9AZG aavQcD4BqKCVouFwzCjC4s6U1Gm 9KLWsjA8MrC5DbuAcdsVA+ PB71em20Y9QwCffpNev3TMGqECL 5oKQ3zZ1yUHMkJQtex9L1tOW4R4 HwtwHqag2wx7diXVXeXVlb X81qbQKkv6G5OSSwrYL4LJQkxIp rGoYxdB85Kav+DAOttNjiv9DeBx bjd4qtt7ctzLd9SeXfPRMs wpBcvJacUGK4d2AyFl69S48sEDe xVSYqDATlTVNlLXVriQapod0leF 9wIi8+HZGvaGN4sQW0bJ4l BiKdOfG2IRblK986QqOysZKmCrx yi4kna3atcKs2EgSlUDGxeqIwuN urPZJ6d5DxXy30O7NtiXnm p2KlAaj5nc85gOOze0H6iBB7U6M mNBGezmcclXDxiSpjQX3eILBgnx wmAQHzyD5rNVBlG1h2WoTs OkT5IXnrU8NejdJ2NYGqbHSdEUB dpEAKwJ6dsliih5blsgtnTsIoEQ KgDLf0YRi5HEDcmKoiYaBf UMK3DoG2XSB2eZXltM6slBuoedy flO7vPrz+VSu0j6ezlOClVA6otZ L8MY68YP96jLGmv8W4tVG7 U9KcTKBovhfcrecitEV2GVRgXGC ohF94Cn3cwRzfUt7oGPXvZKJ8RM JihALzK8JmxK5kQfQqVEPa EHHoQ9ZiqYWgTWnsA488LEvlKgH 7EVNxfxZsS1PyGCLvbZswKxR5s3 W1Wx1UMP98AJ48TI60eSIb e2M6mEL9J8TnYBNhtdfyycbuqDV 7RKGnLKHxkZ04Vy5prPapNi6mAM GeGJT0IWXykMGyR7DejU8y HjQiDVDvUKTiL8NxtYVgTYmnV13 8DYyyGlB8NLSedgSbL0VpXSNndP gsGfO7g9Z4Go6BYu25OU42 AB24cLNdz0K2gFF4Q5WiKVHytxi pfbwyyVV0JOZoSDObuR25Bj6faL icMg9tATDuWTR2VELfrATp D3AupC9nPuAnOQYkCQKmD0ObiJJ kJDhnX455KWnpLbN6QDIdzfOeI0 GbORCgrNjdTaM0q4H4Fz1S FBuadaf3U7SwBuzmbZS+AV49UKU tRQ80xTKfeEHch6suzDs4IwQfLM TjKTE0dFtcMVjkf1TdPTLh Y29 (more content not included)... [facility] Coding Summary HTMLBase 64 AghieczrFHf7kFl+PGhlYWQ+PE1 VOZBuE33pdHVliH7hM2UHVPbXMz lcYWNLEZpTWoOqpgXiCD1hrPQjQ XJu IC8+DF1xXIKdFpzwaPKhj0Y9lSO 6I87yoi0cRDyxoIG8HHHsVaGabm xde4ousDo4EFllXpoaNfYi LZTpfU97FKT7iL87Hg65zCXtzHS pc1okfDa7DqKsQQKuNIH8pPnoVM poj1TjUYFyS37dxBFvv1U5 XYKfwJcbbTOaNaIwiNR3wY0vTLq lhrxnj5rngkjhJrb5sj50gPAwe5 E9dQA4V1MdttP2MFCjpIDb MmsqiWALqH6srleec3ezpzltBhR lBZPzNWi7AXd9AVXsnZjsFzTeUI 42XHK0GBBghqSfW5TqVZQk kZizZuO1p4O2Vt6LD0OWPfyuS7Q NTUFSWTwvdGQ+QO75jj04Y6OmNm wrMoz4ZWQeKLJ5jHM9nD0w VUTvYUlpg9M5pLW1D5BersYfhk2 bh9buTNXkIUqaC98czXEvv3C8HI VurBR7EPCiaXipZqQddP80 Oyc+GOUovFuth2MfRufsk0bdr3c jkPk2GnndAIFswyNcdTbwBNA0c5 MfTg3lUOIgfLP1iXV1rV3v GzPfNkA6EUklH370FmCgpSCkWyz oK20pS0EjdPJ+BJKqVkg9WECwyX ibYI2aM1UmXKGmjoyonVVs rPpeCL8kQAAfndhiVUAyrJ9iCWC uT3a6WeLjJsD3PWoqH6SyHOAfyx vnCw52rJ9aMvSdKmM9LFbc F1KpqmJ0UIRseHKeSAhsXQO0K90 rl9J7WKIuRXUqPIC6sLL0lF8rlC lnbjogbGVmdDsgdmVydGlj FNkyZMqhZ676WZCoxYhgYeJaTKc uZyBEYXRlOiAgMDQvMjkvMjAyND wvdGQ+NMGlXVV5nBzyVOFt aXNoJXxhUr1fuUqeiFvbBF9zQXL fqbvfRCCrzH9eARLagDIjgDepME 2jXGAonsafx878JtTcWXZ2 PFBwiQGxA2GfgM5jKdDrKLPmIZK fC4VzmOTiGZokJ474DIqbVgE8GP IllkDcX0EtTDBqoZfeEfY1 g2W1Hq5Qk3BfqgzfA7UztQGzFaK dYxosFCj4X6JqZmwkhNR+PC90YW QxDB92NGj0UCW2cFnmZXxl QWSiM1IrcY7wKbHdGWHxVKAgVge +PHRhYmxlIHdpZHRoPScxMDAlJy VslEubYQ7wRh8jMRPdELKw tQcwlGUzQxIvt5dfMLDpBBpqLP9 rbKejL5NhbCT1LZVxc9e2Xa39I9 1pI2OczMF+IVUhxMV9rHZ1 iE3pTnFgLcI6EFzqZ924ZjFwpNS dPzmwu4dek0cthNh5EeU3OJMkwn QfyDebUNH6x0XsYe77V32b IHdpZHRoPSIxNSUiIHZhbGlnbj0 nsP2kZz5+EMWkwWR9xVQ1aK1aLz SgWlS6CMzuZ129CmManLLv Vxapa0qbv1wjuUc6WrTaGYNntyM cwBzhEEU9f5ZoEk61D2OtgYplh4 EtUbd4jm74fMVnp4C9vCU2 R4KwGUNkdcpubQBeqEkjKM5qAGI gweirSMJygJ1fDYGuG3q5XeZsGz I1RUuaH2ZjsrJ2GCIgfVZw EDKcfPVYnR0zkejaz3mtvuiqBnM vIMGwFFn8OFb7CFRdxGsgUlKjAU P0WrN1KPK5pITysI7jkPta ekaobQ5lQyb+FGN3fMXddSWYCJ4 lOjwvdGQ+AWTrSJR4wIrfJFefUE QbhK8fQUXyU9r2WwIkYiV3 MHkaU9FjkzY1OSRprNGkDRCziLC OrZ8lftdsy1yaultjLgPiAPKaEQ o7OKr5YTUohEwhEqApNUH4 ScI6AVL1aBHvpW3ieEuazoltwV0 wOyc+KmobdZvhMJI0RNo5X1BgRn q4OHYexCjcZM9qyBBzPCnv Ez9ejUuwgQcsKN6rDVTimyudx45 2FkRej1akKUBtxKBhYDamVJE8C8 0dg3E8VBKqHMLjRNH3hBR6 vL1ggGlgzzwcaNPsyLzbgtGvgSi kIFrsAClyA421NROziLhbMhYwVH j8G5HgBfe1CYQsdFvzGZ1q rRZcOQxfNl6wrRletIooOX4jOKI lnwmbi399TfUtm0dpZMBqtGMqME ioTZE8H73em3C2ZAQzOBOv QEZ0jWE8qA1cmUwzsqxauUDtdWy mmuNdtBnsJJwyFDuzZ770PMPqyB xeNwRciZj0B6LcMib8SWFo hXrpUJ4crTWbONcrRz9meMecpKk wUS7wBWYiabaeh949QxXsn2goBN TtiNVjBJekMNE3B40gx3E6 IVZnTRLuGAB4kKE2hD0ppIannkl gbGVmdDsgdmVydGljYWwtYWxpZ2 46IHRvcDsnPlBhdGllbnQg QEivOVo6A8GbKlhteUV+UL91JFC jMV34eNVpuYZne8vquVc6SxYbDB CmISJ8iRyrTWbef3UqPQQs T20yoMPdj0S7TOHpnKfciJZaJkP wnKY5jH5rKKzdrnrua2oyrpunIb lfn2uhoc67iM98X98xWNea IXNeRHKgAINwLDYkqRzjpa8rhK7 wIi8+RZGdrRX7lQV2cA4jSXIoUn J8EDolL259QiGxzSJhQsbe u8kzm5meeVu1CoU3VFXrzmAsvMv ePLJ2s5HzJy50K25gBJjiPQHzZI MkUIOdXMQtjNvcoj1xoZ6v Ii8+SRFetKG6kBF8iS4iOkDbRbQ 7HUqlL008BfXbwWTaDudmW94dW4 JvdXA+WVJlLgm0TCCclFio ML3muIIkXLkbMl7yPNB5YiUuZxT gGGeiT8DvVYGskdxrmyaxcFM8QT WoJPPvkM15Wu2wfJaaAUBo tDRMoX5amwcen3znmskgLgEeLQW iINm8LOn4BUGtmOcoMmHmLXJ3Ne S2UCS3aMCyhM2bgCnwepln kI8bE5OuJOCezihiEo29qF0aLfE lVsS2BLncHnp+ZaSTPjjbF7SBGZ pYKxBNMDA8T5WfZaa3GUDj mFhfXZ7ejTZmVBkqHl0idUeghHs zTM3vXBJpgytgXXSpqW8lUVMtsS KfsYygKE4zMCZthceuy259 IuGrIBA8QAAzaMNkT2NiiQ5yBdN mLVLrFLCrO3SuzJYxRXpeD631JK vcEyR3RIQkdsXxT9TyHNRp hBlaHkV4i6L9Tb2tMF4oMt4bEXl 5ZF29PT95qGUnf9R4aAE7F5YhPS ZtmipxfgzvqMZ9YUYuELFz eU47zNFaEZboEc7ew5R9l938LYJ pPDVjiL75Mi8ulGvzFWBqxLEAiV 5zmhzcr8skdfqmVvXbVTXq NEs1ABg1QGGhgFnbAmFpAIK0IeZ 5DKI2tZBtrG3qjHssdgtrdO5sYo c+BpEnARGnhrK6V2CvLpk7 OQIqkFpsSG8uvLTwGDpaGd9saCu evMkoFJ0cIYZqnubrICSfnM0lHW AibWIehYhoHG5eHMQzpklb r080UfWfORX1PUCkqBQoT6BhuB2 jCvAzJHWxZLZdT4KzvNOpJJzpG2 09DJdmIwH8WFYzszAjU8Ek QEKzfUfaKgW4b7N8Ss1QEJ4EOJV 6F9GxApt9UMUsnGtlMT1reATmOS czMu9ofXusnMitUI8aTLHf mlzzNPVwbS9fAOZcmKJwpMduET8 bZVNirhags254VeNdSYV5XSGsrP LmZ3UucQ3kZmCsTMHuLNWv Y9TxnNMeASfoM625ASbuAnG3AVS cxpTmP7PqPCRaaVaiJnH1x3I6Ix 5PUDwvdGQ+JB55ix35E5Yv TsmeFkq3AJAgFOR9kZW5kH1jTGN sSJaci3F4fXY5H9JmsoBqpa9sj3 guHRClMLmiX95guWPjq6S6 AHVhkQK2TAJsuQutQxJxfT27Yqj +ZZBurBmls9ZsLvxwz9iun3dltQ d7ZxMbBNSktoUxvXkdFTL0 v9OuKd11T88pBMrlJCXnSWKoIKI mWXHniVobza1eeF6bDb5+PGNvbC Z6uHO4nP0zWzIhCyT5CFsm G911DaHruFIkBaznm5cxr2jfwTw 2GtTwIMHxkcFbeQwdKXD2r3KzVq 49I0DeuZjmo3EnNfs6te63 uZUua5F8wOQ5Z3YzCTZrsaziyCA wpRpnJR3vCVAybavfRBVhkP5mYB KiB7t6KjPfLsU2GZmmC4Nf bsI3BXBlpVWwLFUsyUSIqT1lyen yl0yynovvUvUoKFKzQAi0ZCq4UD OcyBpkJzAyALG1HlG4MOQ8 fFNbrS1ceWzgzzaqqS5dMte+UGh 8q5bysQDvMB7tnSN3SG34TW36lZ Xjq0C4kTI2A0BjEDAsucio zbolmBM4RUUmJQVpmU43Xq5trWk uRr9rRGQyNMM5YOWfhAEsX8EghZ 4yKwNhNBJmOSYeV7AcmMUw NHhdH559WMujPaV8YFSzknUmY8O hADNcpRqcNiI3s8Q9Un7YAG63ZU 35MZ22fPOtq1Y3hFS4Y1Fa ZQGataaynnwtgTT3MWZzZMCmcI2 1Bt6wkIjjNa3qKXLnVAL0TTVvhA ZhK3PslJ9kSiIcFRFxODVz A3IktQIdBKyjV511ISyaIcU2ESU oblEoA4OfMPZbbUlcAzV9g5L5Ew 9YZv05LN11QY98cYYnw0A0 tMN9C0DiRFEedcojtsspcJS6BNS kNBWazA80Hq6rcMriFy4nXDQeEE S4MOYagJWyO4EaeR1yYeRi GTGyWMOoX5SuwUZdOGtcS667SNn xIjV6GZXnqpGzY9IiOJNkoFhhXy P8s4T9Uz7NPQdhzri3F5Ih PjwvdHI+NR72TMRtKA70iWPeuYA jk8oldPv3BiEkWZCnKLF5jPaoOU tjn9PqOTTrH44yaTOsv0N5 IGN (more content not included)... [facility] Consent Formson 01-15-2024 Consent Forms [id number] 01-12-2024 Consent Forms [id number][facility] Cont[facility] Substances Agreem entson 01-12-2024 Controlled Substances Agreements [id number][facility] 01-12-2024 Inpatient Patient Summary [place] [id number] Patient Discharge Instructions Name: LUCILA JACQUES : 1990 MRN: [id number] Patient Address: [address] [place] [address] Primary Care Provider: Name: Provider, None Phone: After you are discharged if you find you have any questions, please, call [phone] ext [phone] to speak to a nurse. Discharge Diagnosis: Prescription Information: If you have been given a prescription for narcotics, seek immediate medical attention if you have any difficulty breathing or any sudden status changes such as confusion and sleepiness. If you or anyone you know is experiencing suicidal thoughts, mental health, alcohol and/or drug addiction problems; contact the [facility] 17/04 Crisis Hotline -Text 4HZXU to 232430. If you received any narcotics, sedation, or [...] business decisions or sign any legal documents [facility] would like to thank you for allowing [...] for Disease Control and Prevention May [address] [facility] MAGR Intraoperative Recordon 01-12-2024 MAGR Intraoperative Record MAGR Intra-Op Record Summary Primary Physician: ALEC PATEL MD Finalized Date/Time: 01/12/24 11:47:08 Pt. Name: LUCILA JACQUES/Sex: 1990 FEMALE Med Rec #: [id number] Physician: ALEC PATEL MD Financial #: [id number] Pt. Type: D Room/Bed: / Admit/Disch: 01/12/24 [...] Sara L RT (R) ARRT Role Performed Admissions Consultant Admissions Consultant Pit Inspector Time In 01/12/24 11:40:00 01/12/24 11:40:00 01/12/24 11:40:00 Time Out 01/12/24 11:46:00 01/12/24 11:46:00 01/12/24 11:46:00 Procedure Block Nerve(Left) Block Nerve(Left) Block Nerve(Left) Last Modified By: Reba Liang RN, Kelly RN Weisenburger, Kelly RN 01/12/24 11:46:22 01/12/24 11:46:22 01/12/24 11:46:22 Entry 4 Entry 5 Entry 6 Case Attendee Mason Garner (R) Dina Malcolm THOMAS F MD ARRT DIRECTOR OF STRATEGY & MOBILE Role Performed Pit Inspector Scrub Personnel Surgeon - Primary Time In [...] ARRTPatsy James RT (R) ARRT, Dina Malcolm DIRECTOR OF STRATEGY & MOBILE, ALEC PATEL MD Last Modified By: Reba [...] Text: E.290 Evaluates (more content not included)... [facility] MAGR Preoperative Recordon 0 01-12-2024 MAGR Preoperative Record MAGR Pre-Op Record Summary Primary Physician: ALEC PATEL MD Finalized Date/Time: 01/12/24 11:49:22 Pt. Name: LUCILA JACQUES /Sex: 1990 FEMALE Med Rec #: [id number] Physician: ALEC PATEL MD Financial #: [id number] Pt. Type: D Room/Bed: / Admit/Disch: 01/12/24 [...] Signed By: Sushila Quintero RN 01/12/24 11:[address] [facility] Patient Handouton 01-12-[address] [facility] [facility] Test Urine 1on U Preg Negative [facility] Comment on above: Performed By: #### [id number] ####[facility] (DEFAULT)[address] [place] [address] U Preg Internal Control Pass [facility] Comment on above: Performed By: #### 3 [id number] ####[facility] (DEFAULT)[address] [place] [address] Progress Note - Provideron 0 01-12-2024 Progress Note - Provider [id number] [facility] Coding Summaryon 01-10-2024 Coding Summary HTMLBase 64 ShqwocmaWBb5uMg+PGhlYWQ+PE1 MCWZtJ57tjZIvhC5iR3AVCYhYLo wfSDOLXCjBMrKmaoKoVT5hlFAbM XJu IC8+TP4eEFGtLwhtcSAad4M1uHJ 8D71qqv9nHCbcgLH4XPSnOkZxod dtn5hamOf2FTniLajqDcJu HMOczX84FQG9dY23Co20cCAcnWN ty6nddMh9IcRyVDPfBSW6kDyuOX vhf3FeNHPvW95snRTrt9M9 JSYdlOaocHCdRgFshID6iQ5mNXa jgmyxn5szkwoyNtx3ft96sSRqt3 V6zWV9O0SsgqV3MKKezJYy McipiWAJpS6cfojri6iuckbcHwD nGLElWTw9JDy3ZQNpxIzbSqVgFW 45MSP4GNRpxdOsH6IkREEi jMqiRkV6k1G2Lm2IK8YKMjdpT3P NTUFSWTwvdGQ+QP63zr45B0CaFg taVla4FBLdSNC0bBY7sL3n WOYpSJghz1U1zFB6D9FkwmHmnc3 ur1zxRHAvUAdcM68jiQTnj8C2LY KwiBL6JMYmxDxlHmOluG15 Oyc+FEHfkSbxp0XiGqupn2eri0j ifWc2CyuoBEFdevQyfJdkYXP6k5 FrSj9jIGRxtSW2pYV4wF1s EyAtUnS6ACptQ952DcHrtWNdJbh aR23oF4KurDI+DWUpAyt3EKVvsO gePN9nL6UjBXCmzvrkjKIx vBesCZ9pWNEcohlrHQNohU7uISU rJ5o0UcAzUcV0TOcnX0IsQISrym gmMx70yZ8vCgKgUrQ2FYln P7DhqnT5HEHydQFkBHexIJW4M52 am7T6RKVgDLHpNOL3cJD2nD9xcC lnbjogbGVmdDsgdmVydGlj JAczTFfuT992BTRrkIzlIwZoVUy uZyBEYXRlOiAgMDQvMTcvMjAyND wvdGQ+XHOhJIG0rYvjUVFx iBFfRLyvVp1icXzrmYtmPF2mHYF muxriNFSdfN2iNUOqtUVigTmzTW 2xBMOzqxdyp098VfObEMW3 HTGgdCUsM5YggC7xYxTrSUIzITJ wD1BesZJyEFjvU623VDosMcE3TI GbhnQeV7DmWGNxzJoaUmF4 b7H4Gf0Ne9FcaathF9GxmPAlOqA hZvboSGg3V6HyCmaviRC+PC90YW XnAN46OQu6FUV0hHbfLEgr WNQgX5UtzI2wSmPwBGJuUANbKrd +PHRhYmxlIHdpZHRoPScxMDAlJy GdfKbnAK0wRy9qMDIzXDCp aWeakGWlJeFbr6tzPFGaZXkyAF1 tzXuqW0VcpQP3LXEop9n9Kd77E0 2aG3NraKY+VWUjlXV2sJL7 sY8nSyBsWaP6KHquR508PxRmgMT xKsgzs7jav0ekkTx0BpI3HXFogp YdjOruIMC5o3NkPs43P22r IHdpZHRoPSIxNSUiIHZhbGlnbj0 kpN9uAe1+JSNslPI7vIR1jR9eAc LbWkE3QKjzB563VeQvfDKn Wupxr4xoz2taiPz1WsNwDHLdpiV csWscABL1d6KqYv69K0DasOhvc0 ZmOuw5ez67iOHwu9J9kUI9 E2PwWJCqqtaljLKotKjhDY2gRHP zzwsuKSBxaN6nVRJgM6k2BfTwHw U2YSdpU2OfllU6DGYdzMEl QSAfdIEVjZ9twrldk3bqnehqBuE eUFBgUQz9BXk5RRWpsLqsVcQsKJ H5JxW6CKA2bRJroR0opUog pvufsA1dUvc+MEE6bHFjaVRIGN3 lOjwvdGQ+ACTlABG7tIgeVXjwPN VmfI3fKPOvJ8z5OzGrPuM8 QIdqW7GdqaJ2CEVwkJPvIPBhzKL SzU9muhjxx0yxzdwmVeNgIOZrYL e7BLj8BFWzeKurFuExIDC6 DsC2VKV4fPGyaS9gdBoeikdnuA1 wOyc+DxwclAhnDYC9AMe9U5IaBe x1FIEcqCihBO6mpPSpOWzo Dm2nhCggcPoxUX6kZCYgvmwkb55 3MfYza1enUINldYGuWJscDGV5R9 1xo8Y5QWHwUUJkPUI7cMJ7 dB1puUrjeqksxAPrqMmykeYubPw hNQqoLYnkH399OUKapIzgYmWcGN s8V3AhTfm4KYSkpDzcTN0u fKIcPYviJh6etKlwvOsfMP9qJDM jjoajj492MdJvd6ouSJDtnPBaRP zeKJF4N02qs2Q0ECIdMZJk KDD8tLD5wU0hpNybnjmjhPFdsLd aejRcfZvxPOlkMPldR286WYKcdN onAlEsiCk2K8TsTlw7HNYi tGigNO5acFAhFIjyXt2qmMgqyYj sLE6kSIDygjsdd395JwRex6adNW QuiSMjZYerGOC9G21he4S7 IZYqPWToKQW9iAL4cL3yeYnblyc gbGVmdDsgdmVydGljYWwtYWxpZ2 46IHRvcDsnPlBhdGllbnQg RMmdXHy5N9ZeCehxkLG+YO81XZQ zZC71yICzrAAqz9cvaEl3YqEhHM VdZRL3zPsjORcoc3LqBHLv X36waGNna8O9NSBpzIpmbWYjQjL woEQ0cN2sQPhusdfhu7rtcxxbVi jxz3bhuz93rV03U60yHOlz RLObQIYlDSDhSZHktMmmpr5gvC8 wIi8+HIOhbQB6iJF6vG6rWLNxOq D6DHjaI728EcGolUEnFixz s4iti5rnmKo7ZyZ0UQZmlyNkzWu zHNV1l3AoYa24G68gCFcoLSOgHM BbNFIuFBCyaDzjsg9jtD6g Ii8+BENeoOO9nFQ5dC8cIcXaUtP 7AZkfG347AhMlaZTtSqwaE80vD0 JvdXA+CWSkLvq9XFTooIvo GK9ipSKlWYkzFl6vKXV8FcQfIkX mPNbmI6HmFMPvngfchongdWG3FL XcMYEssS35Aw5kjEskJFMr kSPDaQ8uvazhv2jahgliRaKuDKE dJSz0CXn8YTNgsKhpDvTmEPC1Cr Y8CCW7kBRouK0liErjyxna xK6sL4WpLZSluzpwLw87kV4gTzS pOtG2JNphRcu+XrNUBjlfN4YVYX dKGlODMJF7O2IvJbg4JBFb uTpxDD1ioUGdJNjlUw6iySwadYd mMF6cFDFjjqdfOEWyjH8nOMHllC XukNvuTF6aYOCfvgehm492 RwLkDLC6FRScdSOdJ8RpmN6rZnD hCXPjTLYaB2CagFQiZLokT303YD qmFcM3IIAvheRkO4YzHUBu qHchXtK1c9B1Dt3nOW0uPf4iMCk 2BW84JS99yPDjw9G7jWU5I2NrLN BnglvojnhjhXO7CRYxGXMi gK34nOFqQAflUs0oe1G7e926NCN wVFVkcE15Rw9bvWdbISPcoEIPlK 8yoxjco2gbfodqMyAdXGGh EVk8TLg0ZULpwDfgNkQwVNC1IuO 6PTI1qQNmvO9osAfqfmrhsO5pTj c+MnVlAMLlslY5Z0RzMct9 SWHpgOxcZJ7mpLTfMEqkDq9psCg yyZevDF0dDTBppgvrDJKdfF8aXH MiyQDouNedDJ3yPNQuiilg b500YpOuVSY3XIXowVWbH7UhjX4 nMzOrTWRfTBBzE4OfpLGhFKejW4 30SJuyOuD0QFEkvuCnU6Yu QTYmuNxhOaX0r6X5Qv0SOL8VQXR 7X8BkDpc8RDGjrPqbUB2mgKHpOH baKt0qpIdjgZeuNT8nEEHm kfqiCAJfiK6zOGQneQGymXssKR7 oZYAhaqsqr782PaAkHNK8WJPrbL FeL3YvxK6dXdXjCOBmLVAd P5LdrIWbOCksQ474IQwrApK5PJH ywyGlG8KmYSZdoWlaSxH2l6H4Kd 5PUDwvdGQ+KV66zu76C7Sq UlhoCgs2PUUyMHY4pIZ5iH7aWMN jEKgpm8E5bKI1G7GynqWdvo3lr8 lnVMDbLJopN66tsDLjo9W4 ANRczCA4UIMucXzmXhIwoI56Xxm +UOJoaCqan6CvRaekj9egr9kbrN d8WaGqJTJjdvJpcWzjLXO8 w2MlIf04T52yZIrzHTXjVVYnWWY nYLUpvMopmr5uhH7nQn3+PGNvbC E7rYU9zU3hDbSkLsV8ITkg V179LdKhnMNoPtjfc9poi1styVu 1LyQlWAWqzjUqwBbdDRG8t3GaKh 61X9SdeGaic6TpFtr9ta13 dWNez3X0eOS3K4TkJZVpwetyyKK gxSkyDK5fXVKdmmvhBEDsgD5hFH NaP5m3TdZzNeG4JPviC7Nu hsG2ZZPjaXXxQUEsmPATxP8aixd jm6mwmgywBeHuPJQrHEl9JBn9VM TzfSmbBbUzKWN0FjB0NOE8 hCDqzG6iqMwsrhlwlS2cQqn+UGh 7f8sdyMXgWO8zzPX3VR32GM87lG Nhl4W5bXU8D5MhGGCuadng ctmlkRF2KQWkMXEodA29Ph6oaTh yBb4wWWGiDWX0TJZslFZpX3XicF 0aBbWqGUJlXRHhD2GsjOYz QWlvJ931EAoiXwU1WQZcdnWiZ9Q gUMAyqNyuLoU3c6I0Dl1UDV22VJ 75CA14lLTco0P7vWL8V0Bl SCEgrigdnocfiWN5NRVaUDZfbN5 7Kl3tgXvjKq5rAZQrFVQ5UNOjjI SmK1LmwS0iFhUaYTRxGRWi X8KglBVvCQgsN308PKzyQdI4SHR rcyJbO1AoMYNphHgzXgN3c0G2Sm 5PEs66WE72EG90gZYbc7A2 uBP0D0ZnNPAayuwajoufuEW7GRU lHTFcfG40Hp6wzYjyIx1xLWVmZH M4KTYhdGKfD8BqqP0tZkCo OJHqSUYeQ1GtgGHwABjfZ937ANw aLsT0EDWvdpEzQ1WgSAXesQqfHx K3j0S2Bi2BYJighdj0L2He PjwvdHI+WI53NHMzVR74jCYxcDM re1ksrPh3WsAnLPKqHYG3cMseVL nso3NtZXAgQ60uqZOgk0X0 IGN (more content not included)... [facility] Coding Summaryon 01-09-2024 Coding Summary HTMLBase 64 CttptozbMJo0gQi+PGhlYWQ+PE1 DGAJpM14jkYDvmG4mZ4CJQNeVQc poBCZNCJgDCiSiarLiSB6xvPIvD XJu IC8+ZW7pJYGnPmpywFSsk6B4mFE 1G40ehs5lIVoarLR6SNGpAaQlim mtt4fedPf8ANwxFliuCdSb VIIpqV81WXW7lW03Ck57mKEgzHP gf4zuqVr2GmFfQBNwVVL6yAcuIL tqx6UwFIJsN83sgYHsn3Y7 TWGqjMxdjWCoRaBigXQ3aH3pVSq eesapy7usftonZtq3iu26iKChw7 C7rGT1D9IffeF8WNAgkEVa LoiqpVFYoS6ianqfm0ktqiovIrU sKEGxUZg7YBs9HHBuvXgpBzMgVU 17TXD0CSElxkDoN3MiHADx xKisTyD8s3E4Ki8ZL6FAZsriH0I NTUFSWTwvdGQ+DZ42ez93S2CjZf adYgt3JFVmTTK2pNB5wV7p IFDiVDjdl9X4hYL3V7CmofBtmb0 sk0ajOFRrYMvqN94efYRfu7W9XV XlwMD0PCSnpUvfKuDqvP42 Oyc+JRRqqKpon0UlWnsfa2vba3y eqGr8IfdvAKIyseOcvOtoJHY5m1 QlOa2jDUStqZA5wMT6mF4i DjPnUxE7ZYsaI674OdYxzDCtYio pJ38xV9EjlAW+ZPAxKkv0LAVdnH dxDB7fH0QlAFWitxxxwGAn dGdbZS4rNEQoaojkRZWcxX6zMLG yB1v6JpXiOkY8FUjqG2PvUWTqvx tuOn38wH8gRpCrZxT7GGuq I0LhclY6JJMzbOFuOEflIZS8Y64 ci7F2IKBlNGOnTOT4wZU1gP5qtY lnbjogbGVmdDsgdmVydGlj ESfzJVwwA802HOKniUmwQkHgPOy uZyBEYXRlOiAgMDQvMTYvMjAyND wvdGQ+GLLcATB3iAypWSEs hDIjMExbHb3ktGfltDbiTG1iDEE szvenKJYzrK3nZQXouJCjtQvuDG 3pATBwztcuu911EeGcDZN0 WXFpqGGxJ1PapC5eXkGtADWdIWM pN5OrkMBdOCwfN247WMdvPuN0JO QalaGpK3SpDSQnoYbfVhC0 d5F3Zq3Xl8LkivlbW2IkcSHlZvR gWqcdZGu5I9AuQvxjbQT+PC90YW IpHD60UNc8KHI7fOfsPEqy YUGkL0CxzC7tUbGhKLWqHYWuVin +PHRhYmxlIHdpZHRoPScxMDAlJy ZepYbyOP1fQz4qIFIqVVEw xWuunJBbLgIzn7uaQNFdVCzuPI5 qiFqlX1BsyOC9JAOsp6z7Vr58P6 1jN7WppFR+RJImyXN8gFN2 mB5nOjUwUfT0OVgcX833VvIqlPW rPcgpt2hue1aukGg2NpL6YXQgkz AdaOhkNWC1b8LsXu93R57p IHdpZHRoPSIxNSUiIHZhbGlnbj0 oyB1eMr9+FAAxgTL0zHT1aD1qOz UwVvK7YKbsZ693StItiQLi Guaje6sgm5bchSv0RrZpYZInyzM vhBmtRFN0v1HxQw02Q7TddTmxu5 AsRen2ja79uWVeb0R4cZT9 X2NuFONjurgbwTDxaXrhED9wYPB xefphLPQgmA2zZLAfX8t6NsIpAp H2SNtnX7MdutE1YKZytOHb ICRcqBTCpH4wlgzlp3oxbahlPeK cGAHsGXv8NPa6MMUlwJkxAyBhMM N4EqA9USF1kNFtgL0smYze macsmF6hLlc+OVV5tHCcuINNND7 lOjwvdGQ+ULGwEGD4nTzlULzmUD UwiW2rRKXhL5m3HzNjBjN4 DDuoN1RplpW1JKWooUGiXQKbxZT PoP1trzcrf7vqjnlxMsKmCSQkZX b3EXw2COZxuGnvIgMyPIY6 QeQ9QNH5eGEazE2vmLhcaqktyO9 wOyc+LepkgAorNCE7PJz3A5LyKa q1ZOVzkCyaCW3tsBHgFTrl Tn7foCyigRsjBX3eTHCaetuec32 3KuGow1xjIEZtrAIoKNbnPXB7J0 7rn4S5RHLnACSpDDL7eAX0 dT5icWqggbmfiDXuxVkqdjLvsEd fILdqXCxhR242UCVbfWlcXfEpSJ b3O7EfNlb0UZAsuOchGH1v hJUgNPlfXn9ynKizwDliOR7iMRT zvkqlg782WiLjr1oxZEIkeWFqWE baDRE7S35jf4M5CEOtJLJw KLF8eNQ2yS0wyUqqsziynLMzlYf crvXypRuwKGrqYDogM064FNMnhX epGrRriJf5P2ZqJjm1XRSp xNrxFJ8drSHmLMjuIq3bcFnqjOg fYT5sEAUmrnnne981IhPhl4tdPR OmqSRwYTjkLYO3Z39pt3S8 WZMuEKInRZT9wPN2gP6gcFfqwfz gbGVmdDsgdmVydGljYWwtYWxpZ2 46IHRvcDsnPlBhdGllbnQg KPraPHp6X2SuNwzgmFS+PM18BPG hXZ58tVHdhMOiy8ebwDd7FoIiKD BhBXN6lUyeJYjit3EwACOz B36iwEPye1U7KFRqbLwezXHfEqA bhEH8xQ9xANercvhpq0rvsoezUg xvu0vxat17zS82Q58rZIjl KZUnCFWnWPYzTDEkgXeyiw9yvK6 wIi8+VDTppQN0iLA4nU3yOJDdBb L0KUzyF362JeQlkLZdAwag a4tbu5rflGf4CfU8GGRnfpHjeVg wORZ2j8FyYu60D18nEBfaCJWcXF NjWSSzWWYvnGlnhe1yvM6v Ii8+KAKbtOE7wZT7hN1zLyCnSeZ 2QMesA724DgTriEDcTucjH55gN8 JvdXA+PLUwJcj3LPYgeJjm QY0jlYJpRTzlRw1bARP7KzIbCsY lRKtoC2DoXFWoobsgaebytQY5TP AgZLHktG31Mu1kbGowSQRm hIBZeP0mpsvdx5dzocafFxHtNNF oBCd8ZHi3DZNxxIapYwNtKFG7Ss L8UWT8rDWdnV6isLthxqca nU9qN8KeJSZyjctlPr91bT7zPoQ iHqG7OJleTus+DdOVNlpfB9KXEL iZXzWFOIM9R9NbAax6REFq eQryZF4wiJAuVDkuUj7ziOmpyGd iQE9rTLOmsohdMSNzyL6sQEYmqT JpiTqtAY3cADAwppxen544 CwEuEND4QRMyrBSuK2KugC5oDvM uBJLxEGBpM9LtgSPqXJrcT767RF kyRjB7KTNvwnEiD6CgBUMh nRhzNyD3i6Z3Ub6eZX0tZe5yFDm 7YY58NY42lEJsw3X3nNV1I3NqTM VlvpkzjkslzIC1SQFdYPTy yO97tBOuVMnhQv4be8G5x209EQK nTTDipR12Co9vwAqcEADkhYNKzW 0ieuzbp5jdzfliWaCsUQRe LTl2DAu2AQWmwZppLhIwRVS6WrI 0ZRU2xFXxmC0elYkefaeyoF2eUz c+YlRpASQuieP6K4EpLqw0 USDceCuqFM2agYSaUOneDi6zgWf nyUbuQM5mTOItudrtACVliO0aFA GjzVRpmBuaAK8cAOJwioeq f563DdDpGDF2GRTpgEZfC4MfwE1 lWgGtMMAqYKIeB5RdrHGhBCauU6 36OYliZzR7NUNlfkLzU6Zc GNCgcXyxVvI1s8E3Pr6LZM4UCIP 0T0SeMhg6AGTugKvuQC4hoYXiWJ fmLf5xsQumeLllPF5yUJNm mgfbNWGalZ8zGVNxmWRldUcrRE3 iYZSzndruu327VtZiABQ6YJPydE OvJ6MkkW2yJdRmXZAkEROq T3HlrCQeFYzkR894WJnsEtO7RGH mohCtU8FfYXVkwHmiGcY6r7U4Up 5PUDwvdGQ+EX28zj75L1Kc CvjqXub1FAJmKYR7qVO3lW7xIPE zTTpmu4O2yVN3P8CmkrFtoi3bh8 tvFXYxEYvrR05bhOXps2E0 AWOklQV2JQTdaOxhVcNdbF68Igr +CIPvkQzci7PiFqmop7nrz5jrvH j3YoSiKLAypfFfuSxxJWA3 r4HwWj56W73dBRdmKDVkZHHxUSI yJYLsqYbfck3jgI3nJi4+PGNvbC X2oWG9nM8vMaNfMjY7DJqh A368RhKldHQrLfebx0uhu9vfvYd 4RrQcMVAvudBxuHkhVPK5o9CtBl 46J5UyiTslc0FqGxv9jw01 bKWka4I6zFC6V2WkTKXmdmocfNT mxPnpAZ5uGGGkahazDEVecJ2oSG GvV4m8KbCkUiR8UFiqJ2Nx hqQ0BYBgyDPsWIBsbKGPdD8rdge fu2lmzhixXnKkEXBrSSp3PCx0JF BpsScoVqShUQF8BeS9FBF8 cDZjdK9llMqzsotfmH0iYiw+UGh 3f5uxxGRcRA7wnYS6UM46JJ12rK Qfb1Y0hAQ2V0CiLCCracem szqtcYJ2CJNpVONiiF01Gj7biOz eGo9uKWUuUKN3DYQcuNNqA5QqyQ 3pXrIaCPOoAODjO7RgkKTu ZVuhH213RKvyGkV3BFBcnxYcO1S cAFXkhShoBhE8l1Z4Du5ORY96IS 79QI02iXEyy7G0uSH2S9Do ILAyeamzhfknqJZ7WSXdFWRmmV8 2Jl8eiQfvJi6qAWWgRSL2TKGajH ThA1BmiQ4sAuXdKMClKVHq K4CblKZcISjpT330NKqwGrV3CTH eewNpO9EvBVPodQdzGrR1o6T0Dr 3EWn58CH49GA08tKEvm0N3 uUI2W3HiXLEhyykkfpyoqDI1CWQ cHOPelV99Bm3yyMccJh1qYXAqFJ Y2VEKipKZpM6OadO1aKoSc CTNzBDTbT0WkzJJrFIflF304WWp kOxR5FYKnyuFsC1FfTXXxfUbcQx C5b6O7Bb4EBHyetks6A2Pa PjwvdHI+CW46UVFpAW39oUMnuIR dd3gxnPc5VgFaPAHfTMK9tEbvAY ynw2LoQNUvA58suQDjm1W6 IGN (more content not included)... Normal [facility] XR Hip Complete Right w/ Pel vison [...] MD 01/08/24 3:46 pm Technologist: DARLEEN MALONE [facility] XR Sacrum/Coccyx Minimum 2 V iewson [...] MD 01/08/24 3:46 pm Technologist: DARLEEN MALONE [facility] XR Spine Lumbosacral Complet e w/ [...] MD 01/08/24 3:46 pm Technologist: DARLEEN MALONE [facility] Telemedicineon 08-23-2023 Telemedicine [id number] Lior Green in 1990 F Date Provider Department [place] 08/23/[address] [place] [address] No family history on file Level of Service:82289 OK OFFICE/OUTPATIENT ESTABLISHED LOW MDM 20-29 MIN Normal [facility] 37on 07-11-2023 37 Follow-up with [facility] as directed. Normal [facility] Telemedicineon 07-11-2023 Telemedicine [id number] Lior Green in 1990 [facility] Department [place] 07/11/[address] [place] [address] No family history on file Level of Service:47286 OK OFFICE/OUTPATIENT ESTABLISHED SF MDM 10-19 MIN Reason for Visit and Comments: Headache [52] Normal [facility] HEPATITIS B SURFACE ANTIBODY QUANTon 09-01-2022 HEPATITIS B VIRUS SURFACE AB (MIU/ML) IN SERUM 3.83 mIU/mL Normal [facility] Comment on above: Result Comment: INTE RPRETATION: NONREACTIVE<8.00 mIU/mL INDETERMINATE8.00 - 12.00 mIU/mL REACTIVE>12 mIU/mL Performed By: #### L [id number] #### [facility] [address] [place] [address] T-Spoton 10-18-2021 T-Spot. TB Test Normal [facility] Comment on above: Result Comment: [facility] [employer] [facility] [address] [place] [address] (NOTE) T-SPOT.TB Test Results --------- T-SPOT TB [...] R UBI, FANG, JAGDEEP, VZI, TSPOT #### [address] [address] Singe Winder: Isreal Astorga MD Measles (Rubeola) Imon 10-15 Measles (Rubeola) Im 6.05 Normal >1.09 [facility] Comment on above: Result Comment: Interpretation: IMMUNE Reference Range: <0.91 Not Immune 0.91-1.09 Equivocal >1.09 Immune Performed By: #### R UBI, FANG, JAGDEEP, VZI, TSPOT #### [address] [address] Singe Winder: Isreal Astorga MD Mumps,Immun,Abon 10-15-2021 Mumps,Immun,Ab 5.42 Normal >1.09 [facility] Comment on above: Result Comment: Interpretation: IMMUNE Reference Range: <0.91 Not Immune 0.91-1.09 Equivocal >1.09 Immune Performed By: #### R UBI, FANG, JAGDEEP, VZI, TSPOT #### [facility] [employer] [address] [place] [id number] Singe Winder: Isreal Astorga MD VZ Immunityon 10-15-2021 VZ Immunity 2.55 Normal >1.09 [facility] Comment on above: Result Comment: Interpretation: IMMUNE Reference Range: <0.91 Not Immune 0.91-1.09 Equivocal >1.09 Immune Performed By: #### R UBI, FANG, JAGDEEP, VZI, TSPOT #### [facility] [employer] [facility] [place], [place] [id number] Singe Winder: Isreal Astorga MD Rubella Ab, IgGon 10-14-2021 Rubella Ab, IgG 279.3 IU/mL Normal [facility] Comment on above: Result Comment: REFERENCE RANGE: <5.0 NON-REACTIVE (non-immune) 5.0 TO 9.9 EQUIVOCAL >=10.0 REACTIVE (immune) Performed By: #### R UBI, FANG, JAGDEEP, VZI, TSPOT #### [facility] [employer] [address] [place] [id number] Singe Winder: Isreal Astorga MD Basic Metabolic Panelon Anion gap [Moles/Vol] 11 mmol/L 9 - 17 mmol/L [place] Bun/Cre Ratio NOT REPORTED [place] Calcium [Mass/Vol] 8.7 mg/dL 8.6 - 10. 4 mg/dL [place] Chloride [Moles/Vol] 107 mmol/L 98 - 10 7 mmol/L [place] CO2 [Moles/Vol] 23 mmol/L 20 - 31 mmol/L [place] Creatinine [Mass/Vol] 0.59 mg/dL 0.5 - 0.9 mg/dL [place] GFR >60 >60 mL/min [place] GFR Non- >60 >60 mL/min [place] GFR/1.73 sq M predicted among non-blacks MDRD (S/P/Bld) [Vol rate/Area] [place] Comment on above: Average GFR for 30-3 9 years old: 107 mL/min/1.73sq m Chronic Kidney Disease: <60 mL/min/1.73sq m Kidney failure: <15 mL/min/1.73sq m eGFR calculated using average adult body mass. Additional eGFR calculator available at: http://www.[employer].Verifico/multiple_crcl_2012.htm GFR/1.73 sq M predicted among non-blacks MDRD (S/P/Bld) [Vol rate/Area] NOT REPORTED [place] Glucose [Mass/Vol] 91 mg/dL 70 - 99 mg/dL [place] Potassium [Moles/Vol] 4.1 mmol/L 3.7 - 5.3 mmol/L [place] Sodium [Moles/Vol] 141 mmol/L 135 - 144 mmol/L [place] Urea nitrogen [Mass/Vol] 10 mg/dL 6 - 20 mg/dL [place] CBC Auto Differentialon Basophils (Bld) [#/Vol] 0.03 10*3/uL [place] Basophils/100 WBC (Bld) 1 % 0 - 2 % [place] Differential Type NOT REPORTED [place] Eosinophils (Bld) [#/Vol] 0.15 10*3/uL [place] Eosinophils/100 WBC (Bld) 3 % 1 - 4 % [place] Erythrocyte distribution width (RBC) [Ratio] 12.4 % 11.8 - 14.4 % [place] Hematocrit (Bld) [Volume fraction] 41.3 % 36.3 - 47.1 % [place] Hemoglobin (Bld) [Mass/Vol] 13.3 g/dL 11.9 - 15.1 g/dL [place] Immature granulocytes (Bld) [#/Vol] 10*3/uL [place] Immature granulocytes (Bld) [#/Vol] 0 % 0 [place] Lymphocytes (Bld) [#/Vol] 1.91 10*3/uL [place] Lymphocytes/100 WBC (Bld) 39 % 24 - 43 % [place] MCH (RBC) [Entitic mass] 29.7 pg 25.2 - 33.5 pg [place] MCHC (RBC) [Mass/Vol] 32.2 g/dL 28.4 - 34.8 g/dL [place] MCV (RBC) [Entitic vol] 92.2 fL 82.6 - 102.9 fL [place] Monocytes (Bld) [#/Vol] 0.46 10*3/uL [place] Monocytes/100 WBC (Bld) 10 % 3 - 12 % [place] Platelet mean volume (Bld) [Entitic vol] 10.7 fL 8.1 - 13.5 fL [place] Platelets (Bld) [#/Vol] NOT REPORTED [place] Platelets (Bld) [#/Vol] 246 10*3/uL [place] RBC (Bld) [#/Vol] 4.48 10*6/uL 3.95 - 5.11 m/uL [place] RBC morphology finding Nom (Bld) NOT REPORTED [place] Segmented neutrophils/100 WBC (Bld) 47 % 36 - 65 % [place] Segs Absolute 2.29 [place] WBC (Bld) [#/Vol] 0.0 10*3/uL 0.0 per 100 WBC [place] WBC (Bld) [#/Vol] 4.9 10*3/uL [place] WBC Morphology NOT REPORTED [place] Iron And TIBCon 05-31-2019 Iron [Mass/Vol] 92 ug/dL 37 - 145 ug/dL [place] Iron Saturation 38 % 20 - 55 % [place] TIBC 243 ug/dL Low 250 - 450 ug/dL [place] UIBC 151 ug/dL 112 - 347 ug/dL [place] Otheron 05-31-2019 Interpretation and review of laboratory results Abnormal [place] Vitamin D 25 Hydroxyon 05-31 Vit D, 25-Hydroxy 20.9 ng/mL Low 30 - 100 ng/mL [place] Comment on above: Reference Range: Vitamin D status Range Deficiency <20 ng/mL Mild Deficiency 20-30 ng/mL Sufficiency 30-100 ng/mL Toxicity >100 ng/mL Vital Signs Date Time Vital Sign Value Performing Clinician Facility 11-21-2024 11:58-0500 Body mass index (BMI) [Ratio] 40.32 kg/m2 Catrachito Attila DO Work Phone: [facility] 11-21-2024 11:58-0500 Body weight 113.31 kg Catrachito Attila DO Work Phone: [facility] 11-21-2024 11:58-0500 Diastolic blood pressure 70 mm[Hg] Catrachito Attila DO Work Phone: [facility] 11-21-2024 11:58-0500 Systolic blood pressure 110 mm[Hg] Catrachito Attila DO Work Phone: [facility] 11-07-2024 13:51-0500 Body mass index (BMI) [Ratio] 40.03 kg/m2 Catrachito Attila DO Work Phone: [facility] 11-07-2024 13:51-0500 Body weight 112.49 kg Catrachito Attila DO Work Phone: [facility] 11-07-2024 13:51-0500 Diastolic blood pressure 72 mm[Hg] Catrachito Attila DO Work Phone: [facility] 11-07-2024 13:51-0500 Systolic blood pressure 120 mm[Hg] Catrachito Attila DO Work Phone: [facility] 10-01-2024 10:38-0500 Body mass index (BMI) [Ratio] 39.19 kg/m2 Catrachito Attila DO Work Phone: [facility] 10-01-2024 10:38-0500 Body weight 110.13 kg Catrachito Attila DO Work Phone: [facility] 10-01-2024 10:38-0500 Diastolic blood pressure 68 mm[Hg] Catrachito Attila DO Work Phone: [facility] 10-01-2024 10:38-0500 Systolic blood pressure 108 mm[Hg] Catrachito Attila DO Work Phone: [facility] 09-04-2024 10:33-0500 Body mass index (BMI) [Ratio] 37.92 kg/m2 Christen Reid MD Work Phone: [facility] 09-04-2024 10:33-0500 Body weight 109.86 kg Christen Reid MD Work Phone: [facility] 09-04-2024 10:33-0500 Diastolic blood pressure 69 mm[Hg] Christen Reid MD Work Phone: [facility] 09-04-2024 10:33-0500 Heart rate 84 /min Christen Reid MD Work Phone: [facility] 09-04-2024 10:33-0500 Systolic blood pressure 105 mm[Hg] Christen Reid MD Work Phone: [facility] 08-12-2024 14:16-0500 Body mass index (BMI) [Ratio] 38.58 kg/m2 Genevieve SOLITARIO Work Phone: [facility] 08-12-2024 14:16-0500 Body weight 108.41 kg Genevieve Donovan PA Work Phone: [facility] 08-12-2024 14:16-0500 Diastolic blood pressure 72 mm[Hg] Genevieve Donovan PA Work Phone: [facility] 08-12-2024 14:16-0500 Systolic blood pressure 120 mm[Hg] Genevieve Donovan PA Work Phone: [facility] 07-16-2024 11:31-0400 Body mass index (BMI) [Ratio] 38.54 kg/m2 Catrahcito Attila DO Work Phone: [facility] 07-16-2024 11:31-0400 Body weight 108.32 kg Catrachito Attila DO Work Phone: [facility] 07-16-2024 11:31-0400 Diastolic blood pressure 64 mm[Hg] Catrachito Attila DO Work Phone: [facility] 07-16-2024 11:31-0400 Systolic blood pressure 110 mm[Hg] Catrachito Attila DO Work Phone: [facility] 07-05-2024 11:45-0400 Body height 170.2 cm Mishel Segovia MD Work Phone: [facility] 07-05-2024 11:45-0400 Body mass index (BMI) [Ratio] 36.83 kg/m2 Mishel Segovia MD Work Phone: [facility] 07-05-2024 11:45-0400 Body weight 106.69 kg Mishel Segovia MD Work Phone: [facility] 07-05-2024 11:45-0400 Diastolic blood pressure 69 mm[Hg] Mishel Segovia MD Work Phone: [facility] 07-05-2024 11:45-0400 Heart rate 86 /min Mishel Segovia MD Work Phone: [facility] 07-05-2024 11:45-0400 Systolic blood pressure 128 mm[Hg] Mishel Segovia MD Work Phone: [facility] 06-17-2024 11:46-0400 Body mass index (BMI) [Ratio] 37.9 kg/m2 Catrachito Attila DO Work Phone: [facility] 06-17-2024 11:46-0400 Body weight 106.5 kg Catrachito Attila DO Work Phone: [facility] 06-17-2024 11:46-0400 Diastolic blood pressure 78 mm[Hg] Catrachito Attila DO Work Phone: [facility] 06-17-2024 11:46-0400 Systolic blood pressure 116 mm[Hg] Catrachito Attila DO Work Phone: [facility] 05-31-2024 11:30-0400 Body mass index (BMI) [Ratio] 36.74 kg/m2 Lexi Robertson MD Work Phone: [facility] 05-31-2024 11:30-0400 Body weight 106.41 kg Lexi Robertson MD Work Phone: [facility] 05-23-2024 15:41-0400 Body mass index (BMI) [Ratio] 41.48 kg/m2 Sandrita Bowers CN Work Phone: [facility] 05-23-2024 15:41-0400 Body weight 116.57 kg Sandrita Bowers CN Work Phone: [facility] 04-29-2024 13:25-0400 Diastolic blood pressure 82 mm[Hg] [facility] 04-29-2024 13:25-0400 Heart rate 80 /min [facility] 04-29-2024 13:25-0400 Respiratory rate 16 /min [facility] 04-29-2024 13:25-0400 SaO2% (BldA) [Mass fraction] 99 % [facility] 04-29-2024 13:25-0400 Systolic blood pressure 145 mm[Hg] [facility] 04-29-2024 10:53-0400 Body temperature 97.4 [degF] [facility] 04-29-2024 10:28-0400 Inhaled oxygen flow rate 2 L/min [facility] 04-29-2024 06:46-0400 Body height 170.18 cm [facility] 04-29-2024 06:46-0400 Body mass index (BMI) [Ratio] 37.6 kg/m2 [facility] 04-29-2024 06:46-0400 Body weight 109 kg [facility] 04-19-2024 09:11-0400 Body height 172.72 cm [facility] 04-19-2024 09:11-0400 Body mass index (BMI) [Ratio] 35.9 kg/m2 [facility] 04-19-2024 09:11-0400 Body weight 107 kg [facility] 02-15-2024 11:55-0400 Body height 172.72 cm [facility] 02-15-2024 11:55-0400 Body mass index (BMI) [Ratio] 36.1 kg/m2 [facility] 02-15-2024 11:55-0400 Body weight 107.95 kg [facility] Encounters Encounter Date Encounter Type Care Provider Facility Start: 11-27-2024 End: 11-27-2024 Chart abstracting Scanning Provider External [facility] Start: 11-25-2024 End: 11-25-2024 Clinisync Result Encounter Catrachito Attila DO Work Phone: [facility] External Department Unsolicited Start: 11-25-2024 End: 11-25-2024 Clinisync Result Encounter Catrachito Attila DO Work Phone: [facility] External Department Unsolicited Start: 11-21-2024 End: 11-21-2024 Bamboo flowsheet Catrachito [...] trimester Start: 11-06-2024 ambulatory None Provider Facility: [facility] Start: 10-25-2024 End: 10-25-2024 Clinisync Result Encounter Catrachito Attila DO Work Phone: [facility] External Department Unsolicited Start: 10-25-2024 End: 10-25-2024 Clinisync Result Encounter Catrachito Attila DO Work Phone: [facility] Unsolicited Start: 10-15-2024 End: 10-15-2024 ambulatory CATRACHITO R ATTILA [facility] Start: 10-01-2024 End: 10-01-2024 Bamboo flowsheet Catrachito Attila DO Work Phone: [facility] Start: 10-01-2024 End: 10-01-2024 Bamboo flowsheet Catrachito Attila DO Work Phone: [facility] Start: 10-01-2024 End: 10-01-2024 flow sheet Catrachito Attila DO Work Phone: [facility] Comment on above: Second trimester pre gnancy; 25 weeks gestation of ; with normal glucose tolerance test (GTT); Diabetes mellitus screening; Retained intrauterine device (IUD) during in second trimester Start: 10-01-2024 End: 10-01-2024 ambulatory CATRACHITO ATTILA Not Available Start: 09-04-2024 End: 09-04-2024 Office outpatient visit 25 minutes Lexi Robertson MD Work Phone: [facility] at [facility] Comment on above: 21 weeks gestation o f (Primary Dx); Retained intrauterine device (IUD) during in second trimester; History of gastric bypass; Obesity affecting in second trimester, unspecified obesity type; with history of section, antepartum; Multigravida of advanced maternal age in second trimester Start: 09-04-2024 End: 09-04-2024 ambulatory [facility] Comment on above: 21 [...] Start: 07-17-2024 End: 07-17-2024 ambulatory NON STAFF [facility] Work Phone: Start: 07-17-2024 End: 07-17-2024 Patient encounter procedure [facility] Work Phone: Start: 07-16-2024 End: 07-16-2024 [...] Second trimester Start: 07-10-2024 End: 07-10-[address] Start: 07-08-2024 End: 07-08-2024 Orders Only Not In System Ref Prov [facility] Start: 07-05-2024 End: 07-05-2024 Office outpatient visit 40 minutes Mishel Segovia MD Work Phone: [facility] Comment on above: Retained intrauterin e device [...] gestation of Start: 07-05-2024 End: 07-05-2024 ambulatory [facility] Comment on above: Retained intrauterin e device [...] Start: 06-17-2024 End: 06-17-2024 flow sheet Catrachito Aiken DO Work Phone: [facility] Comment on above: Missed menses; Encounter for supervision of normal first in first trimester; , unspecified gestational age; Encounter for screening for cervical length; complicated by intrauterine device (IUD); induced hypertension, antepartum; Multigravida of advanced maternal age in first trimester Start: 06-17-2024 End: 06-17-2024 ambulatory CATRACHITO AIKEN Not Available Start: 06-11-2024 End: 06-11-2024 ambulatory NON STAFF [facility] Work Phone: Start: 06-11-2024 End: 06-11-2024 Patient encounter procedure MD Santa Estrada II Work Phone: [facility] Work Phone: Start: 05-31-2024 End: 05-31-2024 Office consultation new/estab patient 60 min Lexi Robertson MD Work Phone: [facility]- [facility] Comment on above: Retained intrauterin e device (IUD) during in first trimester (Primary Dx) Start: 05-31-2024 End: 05-31-[address] [facility] Comment on above: Retained intrauterin e device (IUD) during in first trimester (Primary Dx) Start: 05-29-2024 End: 05-29-2024 Chart abstracting Lexi Robertson MD Work Phone: [facility] Start: 05-23-2024 End: 05-23-2024 ambulatory SANDRITA L FLORO Not Available Start: 05-23-2024 End: 05-23-2024 Office outpatient visit 15 minutes Sandrita Romelia Joseo CNM Work Phone: [facility] Comment on above: GA: 6w4d Start: 05-23-2024 End: 05-23-2024 ambulatory SANDRITA L FLORO Not Available Start: 05-23-2024 End: 05-23-2024 Bamboo flowsheet Sandrita Joseo CNM Work Phone: [facility] Start: 05-23-2024 End: 05-23-2024 Bamboo flowsheet Sandrita Joseo CNM Work Phone: [facility] Start: 05-22-2024 End: 05-22-2024 Telephone encounter Sandrita Bowers CNM Work Phone: [facility] Start: 05-15-2024 End: 05-15-2024 ambulatory NON STAFF [facility] Work Phone: Start: 05-15-2024 End: 05-15-2024 Patient encounter procedure [facility] Work Phone: Start: 04-29-2024 Non-patient / Non-visit [facility] Work Phone: Start: 04-29-2024 End: 04-29-2024 Admission to same day surgery center [facility] [place] Start: 04-29-2024 End: 04-29-2024 ambulatory NON STAFF [facility] Work Phone: Start: 04-25-2024 End: 04-25-2024 ambulatory SANDRITA Romelia JOSEO Not Available Start: 04-19-2024 End: 04-19-2024 ambulatory NON STAFF [facility] Work Phone: Start: 04-19-2024 End: 04-19-2024 Patient encounter procedure [facility] Work Phone: Start: 04-19-2024 End: 04-19-2024 Discharged Recurring MD Santa Estrada II Work Phone: [facility]Physical [facility] [place] Start: 04-19-2024 [facility]istered [facility] [place] Start: 04-19-2024 End: 04-19-2024 ambulatory NON STAFF [facility] Work Phone: Start: 04-19-2024 End: 04-19-2024 Patient encounter procedure [facility] Work Phone: Start: 04-16-2024 End: 04-16-2024 ambulatory SANDRITA BOWERS Not Available Start: 04-15-2024 End: 04-15-2024 Patient encounter procedure [facility] Work Phone: Start: 04-15-2024 End: 04-15-2024 ambulatory NON STAFF [facility] Work Phone: Start: 03-13-2024 End: 03-13-2024 ambulatory [facility] Facility:[facility] Start: 03-12-2024 End: 03-12-2024 Patient encounter procedure [facility] [place] Work Phone: Start: 03-12-2024 End: 03-12-2024 ambulatory NON STAFF [facility] Work Phone: Start: 02-29-2024 End: 02-29-2024 ambulatory [facility] Start: 02-27-2024 End: 02-27-2024 ambulatory NON STAFF [facility] Work Phone: Start: 02-27-2024 End: 02-27-2024 Departed Referred [facility] Start: 02-26-2024 End: 02-27-2024 ambulatory [facility] Facility:[facility] Start: 02-15-2024 End: 02-15-2024 ambulatory NON STAFF [facility] Work Phone: Start: 02-15-2024 End: 02-15-2024 Patient encounter procedure [facility] Work Phone: Start: 02-01-2024 End: 02-01-2024 ambulatory VICTOR M LUJAN Not Available Start: 01-25-2024 End: 01-26-2024 ambulatory Audra Burns Edgardo AREA REPRESENTATIVE-LAB DIRECTOR Facility:[facility] Start: 01-12-2024 End: 01-13-2024 ambulatory Alec Patel MD Facility:[facility] Start: 01-05-2024 End: 01-06-2024 ambulatory Audra Burns Edgardo AREA REPRESENTATIVE-LAB DIRECTOR Facility:[facility] Start: 12-15-2023 End: 12-15-2023 ambulatory VICTOR M LUJAN Not Available Start: 08-23-2023 End: 08-23-2023 ambulatory [facility] Start: 07-11-2023 End: 07-11-2023 ambulatory [facility] Start: 09-01-2022 End: 09-01-2022 ambulatory [facility] Start: 09-01-2022 End: 09-01-2022 Encounter for antibody response examination [facility] Start: 10-14-2021 End: 10-15-2021 ambulatory [facility] Start: 10-13-2021 ambulatory [facility] Start: 04-02-2020 End: 04-02-2020 Subsequent hospital visit by physician Yesica MILLER [facility] Start: 05-31-2019 End: 05-31-2019 Subsequent hospital visit by physician Yesica MILLER [facility] Comment on above: History of bariatric surgery; Health care maintenance Procedures Date Procedure Procedure Detail Performing Clinician Start: 11-25-2024 US OB BPP W NON-STRESS Catrachito Attila DO Work Phone: Start: 11-25-2024 AMNISURE Catrachito Fazi o DO Work Phone: Start: 11-21-2024 US OB BPP W NON-STRESS [...] Urine test visual color cmprsn meths Sandrita L Rebecao CNM Work Phone: Start: 04-29-2024 X-ray of [...] Surgery: [id number] Result Comment: PERF ORMED BY: [facility] [address] [place] [address] PATHOLOGIST BACK TENDER CYLINDER GENO BENEDICT M.D. Start: 03-12-2024 Methicillin resistan [...] Td Vaccines (3 - Td or Tdap) [facility] Start: 07-23-2029 Screening for malign ant neoplasm of cervix [facility] Start: 04-16-2027 Screening for malign ant neoplasm of cervix Pap Smear [facility] Start: 09-04-2025 Adult BMI Screening Adult BMI Screen ing [facility] Start: 09-04-2025 Tobacco Screening Tobacco Screening [facility] Start: 09-04-2025 End: 09-04-2025 US MFM with or without consult US MFM with or without consult Imaging Routine 21 weeks gestation of Retained intrauterine device (IUD) during in second trimester History of gastric bypass Multigravida of advanced maternal age in second trimester Expected: 09/04/2025 (Approximate), Expires: 09/04/2025 Down Work Phone: Comment on above: Expected: 09/04/2025 (Approximate), Expires: 09/04/2025 Start: 07-05-2025 Adult BMI Screening Adult BMI Screen ing [facility] Start: 07-05-2025 Tobacco Screening Tobacco Screening [facility] Start: 07-05-2025 End: 07-05-2025 US MFM with or without consult US MFM with or without consult Imaging Routine Retained intrauterine device (IUD) during in second trimester BMI 36.0-36.9,adult Multigravida of advanced maternal age in second trimester Expected: 07/05/2025 (Approximate), Expires: 07/05/2025 Down Work Phone: Comment on above: Expected: 07/05/2025 (Approximate), Expires: 07/05/2025 Start: 05-31-2025 Adult BMI Screening Adult BMI Screen ing [facility] Start: 05-31-2025 End: 05-31-2025 US MFM with or without consult US MFM with or without consult Imaging Routine Retained intrauterine device (IUD) during in first trimester Expected: 05/31/2025 (Approximate), Expires: 05/31/2025 Down Work Phone: Comment on above: Expected: 05/31/2025 (Approximate), Expires: 05/31/2025 Start: 12-12-2024 End: 12-12-2024 Patient encounter procedure 12/12/2024 10:20 AM EDT Routine [facility] [address] [place] [phone] Genevieve Donovan PA [address] [place] [address] [facility] Start: 11-28-2024 End: 11-28-2024 Patient encounter procedure 11/28/2024 9:45 AM EST Appointment [facility] [place] [address] [facility] [facility] [address] [place] [address] [facility] [place] Start: 11-21-2024 End: 11-21-2025 US for US OB follow up transabdominal approach Imaging Routine with IUD in place, antepartum, first trimester Expected: 11/21/2024, Expires: 11/21/2025 [facility] Work Phone: Comment on above: Expected: 11/21/2024 [...] Routine [facility] [address] [place] [id number] Catrachito Aiken DO [address] [place] [address] [facility] Start: 10-31-2024 End: 10-31-2024 Patient encounter procedure 10/31/2024 8:30 AM EST Routine [facility] [address] [place] [phone] Genevieve Donovan PA [address] [place], [place] [phone] [facility] Start: 10-15-2024 End: 10-15-2024 Patient encounter procedure 10/15/2024 10:00 AM EST Appointment [facility] [address] [place] [address] [facility] Start: 10-01-2024 End: 10-01-2025 CBC panel - Blood by Automated count CBC Lab Routine Diabetes mellitus screening Expected: 10/01/2024 (Approximate), Expires: 10/01/2025 [facility] Work Phone: Comment on above: Expected: 10/01/2024 (Approximate), Expires: 10/01/2025 Start: 10-01-2024 End: 10-01-2024 Patient encounter procedure 10/01/2024 9:50 AM EST Routine [facility] [address] [place] [phone] Catrachito Aiken DO [address] [place] [address] Arrived [facility] Comment on above: Arrived Start: 09-11-2024 End: 09-11-2024 Alpha fetoprotein, maternal Alpha fetoprotein, maternal Lab Routine Need for maternal serum alpha-protein (MSAFP) screening Expected: 09/11/2024 (Approximate), Expires: 09/11/2024 [facility] Comment on above: Expected: 09/11/2024 (Approximate), Expires: 09/11/2024 Start: 09-09-2024 End: 09-09-2024 Patient encounter procedure 09/09/2024 2:00 PM EST Routine [facility] [address] [place] [phone] Catrachito Aiken, DO [address] [place] [address] [facility] Start: 09-04-2024 Adult BMI Screening Adult BMI Screen ing [facility] Start: 09-04-2024 Tobacco Screening Tobacco Screening [facility] Start: 08-20-2024 End: 08-20-[address] [facility] Start: 08-14-2024 End: 08-14-2024 Patient encounter procedure 08/14/2024 1:30 PM EST Routine [facility] [address] [place] [phone] Genevieve Donovan PA [address] [place], [place] [phone] [facility] Start: 07-16-2024 End: 07-16-2024 Patient encounter procedure 07/16/2024 11:10 AM EDT Routine [facility] [address] [place] [phone] Catrachito Aiken DO [address] [place] [address] [facility] Start: 07-05-2024 End: 07-05-[address] [facility] Start: 06-21-2024 End: 06-21-2024 Professional / ancillary services management 06/21/2024 10:30 AM EDT Ancillary Procedure [facility] [address] [place] [address] [facility] Start: 06-18-2024 End: 06-18-2024 Patient encounter procedure 06/18/2024 2:00 PM EDT Office Visit [facility] [address] [place] [address] Sandrita Bowers CNM [address] [place] [address] [facility] Start: 06-17-2024 End: 06-17-2025 ABO/Rh ABO/Rh Lab Routine Missed menses Expected: 06/17/2024 (Approximate), Expires: 06/17/2025 [facility] Comment on above: Expected: 06/17/2024 (Approximate), Expires: 06/17/2025 Start: 06-17-2024 End: 06-17-2025 Alanine aminotransferase [Enzymatic activity/volume] in Serum or Plasma ALT Lab Routine Multigravida of advanced maternal age in first trimester Expected: 06/17/2024 (Approximate), Expires: 06/17/2025 [facility] Comment on above: Expected: 06/17/2024 (Approximate), Expires: 06/17/2025 Start: 06-17-2024 End: 06-17-2025 Aspartate aminotransferase [Enzymatic activity/volume] in Serum or Plasma AST Lab Routine Multigravida of advanced maternal age in first trimester Expected: 06/17/2024 (Approximate), Expires: 06/17/2025 [facility] Comment on above: Expected: 06/17/2024 (Approximate), Expires: 06/17/2025 Start: 06-17-2024 End: 06-17-2025 Blood type and Indirect antibody screen panel - Blood Type and screen Lab Routine Missed menses Expected: 06/17/2024 (Approximate), Expires: 06/17/2025 [facility] Work Phone: Comment on above: Expected: 06/17/2024 (Approximate), Expires: 06/17/2025 Start: 06-17-2024 End: 06-17-2025 CBC W Auto Differential panel - Blood [facility] Comment on above: Ordered: 06/17/2024 Expected: 06/17/2024 [...] gestational age Expected: 06/17/2024 (Approximate), Expires: 06/17/2025 [facility] Comment on above: Expected: 06/17/2024 (Approximate), Expires: 06/17/2025 Start: 06-17-2024 End: 06-17-2025 Lactate dehydrogenase [Enzymatic activity/volume] in Serum or Plasma by Lactate to pyruvate reaction Lactate dehydrogenase Lab Routine Multigravida of advanced maternal age in first trimester Expected: 06/17/2024, Expires: 06/17/2025 [facility] Comment on above: Expected: 06/17/2024 , Expires: 06/17/2025 Start: 06-17-2024 End: 06-17-2025 Protein, urine, 24 hour Protein, urine, 24 hour Lab Routine Multigravida of advanced maternal age in first trimester Expected: 06/17/2024 (Approximate), Expires: 06/17/2025 [facility] Comment on above: Expected: 06/17/2024 (Approximate), Expires: 06/17/2025 Start: 06-17-2024 End: 06-17-2025 Pt and ptt Pt and ptt Lab Routine Multigravida of advanced maternal age in first trimester Expected: 06/17/2024, Expires: 06/17/2025 [facility] Comment on above: Expected: 06/17/2024 , Expires: 06/17/2025 Start: 06-17-2024 End: 06-17-2025 Urate [Mass/volume] in Serum or Plasma Uric acid Lab Routine Multigravida of advanced maternal age in first trimester Expected: 06/17/2024 (Approximate), Expires: 06/17/2025 [facility] Comment on above: Expected: 06/17/2024 (Approximate), [...] device (IUD) Expected: 06/17/2024 (Approximate), Expires: 06/17/2025 [facility] Comment on above: Expected: 06/17/2024 (Approximate), Expires: 06/17/2025 Start: 06-17-2024 End: 06-17-2024 Patient encounter procedure 06/17/2024 10:50 AM EDT Routine [facility] [address] [place] [phone] Catrachito Aiken, DO [address] [place] [address] Arrived [facility] Comment on above: Arrived Start: 06-11-2024 X-ray of left knee XR knee LT 3V - NOT FOR ER USE [facility] Start: 06-11-2024 XR Knee - left 3 Views [facility] Start: 05-31-2024 End: 05-31-[address] [facility] Start: 05-26-2024 COVID-19 Vaccine ( season) COVID-19 Vaccine ( season) [facility] Start: 05-26-2024 COVID-19 Vaccine ( season) COVID-19 Vaccine ( season) [facility] Start: 05-26-2024 Influenza vaccination [facility] Start: 05-23-2024 End: 05-23-2024 Professional / ancillary services management 05/23/2024 3:45 PM EDT Ancillary Procedure [facility] [address] [place] [address] [facility] Start: 05-23-2024 End: 05-23-2024 ambulatory 05/23/2024 3:30 PM EDT Initial [facility] [address] [place] [phone] Sandrita BowersPREMM [address] [place] [address] Arrived [facility] Comment on above: Arrived Start: 04-29-2024 Hospital admission [facility] Start: 04-29-2024 End: 04-29-2024 [facility] Start: 04-29-2024 Physical therapy procedure [facility] Start: 04-19-2024 Plain X-ray of left femur XR femur L T 2V* [facility] Start: 04-19-2024 Plain X-ray of left tibia and left fibula XR tibia fibula LT 2V* [facility] Start: 04-19-2024 XR Femur - left 2 Views [facility] Start: 04-19-2024 XR Tibia and Fibula - left 2 Views [facility] Start: 04-15-2024 [facility] Start: 03-12-2024 MRSA Culture MRSA Culture [facility] Start: 02-15-2024 Pelvis X-ray XR pelvis 1-2V [facility] Start: 02-15-2024 Radiologic examinati on of knee XR knee LT 4V* [facility] Start: 02-15-2024 XR Knee - left 4 Views [facility] Start: 02-15-2024 XR Pelvis 1 or 2 Views [facility] Start: 07-02-2022 DTaP/Tdap/Td vaccine (2 - Td) DTaP/Tdap/Td vaccine (2 - Td) [place], [place] Start: 05-26-2020 Influenza vaccination Flu vaccine (# 1) [place], [place] Start: 04-21-2020 End: 04-21-2020 Office Visit 04/21/2020 Office Visit Obstetrics and Gynecology Karel Palm DO [address] [place], [place] [id number] [phone] [facility] 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 [place] Start: 05-26-2019 Influenza vaccination Flu vaccine (# 1) [place], [place] Start: 2018 Screening for malign ant neoplasm of cervix [facility] Start: 2009 Cervical cancer screen Cervical canc er screen [place], [place] Start: 2009 Screening for malign ant neoplasm of cervix [facility] Start: 2007 DTaP/Tdap/Td vaccine (1 - Tdap) DTaP/Tdap/Td vaccine (1 - Tdap) [place], [place] Start: 2006 Adult BMI Follow Up Plan Adult BMI Follow Up Plan [facility] Start: 2003 HIV screen HIV screen [place], [place] Start: 2003 HIV screening HIV screen [facility] [place], [place] Start: 2001 Varicella Vaccine (1 of 2 - 13+ 2-dose series) Varicella Vaccine (1 of 2 - 13+ 2-dose series) [place], [place] Start: 2000 Depression Screening Depression Scre [facility] Start: 1989 Varicella vaccine (1 of 2 - 2-dose childhood series) Varicella vaccine (1 of 2 - 2-dose childhood series) [place], [place] Bacteria identified in Urine by Culture Urine culture Microbiology Routine Missed menses Ordered: 06/17/2024 [facility] Comment on above: Ordered: 06/17/2024 CHLAMYDIA TRACHOMATI S (GENITO/STI) CHLAMYDIA TRACHOMATIS (GENITO/STI) Lab Routine Exposure to STD Ordered: 08/12/2024 [facility] Comment on above: Ordered: 08/12/2024 End: 05-31-2019 Cobalamin (Vitamin B12) [Mass/Vol] Vitamin B12 Lab Routine History of bariatric surgery 1 Occurrences starting 05/31/2019 until 05/31/2019 [place], [place] Comment on above: 1 Occurrences starti ng 05/31/2019 until 05/31/2019 Cobalamin (Vitamin B 12) [Mass/Vol] Vitamin B12 Lab Routine History of bariatric surgery 05/31/2019 8:42 AM EDT [place] Cotinine [Mass/volum e] in Serum or Plasma [facility] Cotinine [Mass/volum e] in Serum or Plasma [facility] End: 04-02-2020 Covid-19 Ambulatory Covid-19 Ambulatory Lab Routine Once for 1 Occurrences starting 04/02/2020 until 04/02/2020 [place] Comment on above: Once for 1 Occurrenc es starting 04/02/2020 until 04/02/2020 Covid-19 Ambulatory Covid-19 Amb ulatory Lab Routine 04/02/2020 10:12 PM EDT [place] Glucose measurement estimated from glycated hemoglobin [facility] Hemoglobin A1c/Hemoglobin.total in Blood Hemoglobin A1c Lab Routine Missed menses Ordered: 06/17/2024 [facility] Comment on above: Ordered: 06/17/2024 Hepatitis B virus herr rface Ag [Presence] in Serum or Plasma by Immunoassay Hepatitis B surface antigen Lab Routine Missed menses Ordered: 06/17/2024 [facility] Comment on above: Ordered: 06/17/2024 Hepatitis C virus Ab [Presence] in Serum or Plasma by Immunoassay Hepatitis C antibody Lab Routine Missed menses Ordered: 06/17/2024 [facility] Comment on above: Ordered: 06/17/2024 HIV-1/HIV-2 antigen/antibody combination immunoassay HIV-1 and HIV-2 antibodies Lab Routine Missed menses Ordered: 06/17/2024 [facility] Comment on above: Ordered: 06/17/2024 Methicillin resistan t Staphylococcus aureus [Presence] in Unspecified specimen by Organism specific culture [facility] MR Knee - left WO contrast F [facility] Neisseria gonorrhoea e DNA [Presence] in Unspecified specimen by SORIN with probe detection Neisseria gonorrhea DNA probe, direct Lab Routine Exposure to STD Ordered: 08/12/2024 [facility] Comment on above: Ordered: 08/12/2024 Nicotine [Mass/volum e] in Serum or Plasma [facility] Nicotine [Mass/volum e] in Serum or Plasma [facility] Patient Education Know your Meds [facility] Work Phone: Reagin Ab [Presence] in Serum by RPR RPR Lab Routine Missed menses Ordered: 06/17/2024 [facility] Comment on above: Ordered: 06/17/2024 Rubella antibody, IgG Rubella an tibody, IgG Lab Routine Missed menses Ordered: 06/17/2024 [facility] Comment on above: Ordered: 06/17/2024 SURESWAB(R) ADVANCED VAGINITIS PLUS, TMA SURESWAB(R) ADVANCED VAGINITIS PLUS, TMA Pathology and Cytology Routine Exposure to STD Ordered: 08/12/2024 [facility] Work Phone: Comment on above: Ordered: 08/12/2024 End: 03-31-2025 US for US OB follow up transabdominal approach Imaging Routine Retained intrauterine device (IUD) during in second trimester every 4 weeks for 4 Occurrences starting 10/01/2024 until 03/31/2025 [facility] Comment on above: every 4 weeks for 4 Occurrences starting 10/01/2024 until 03/31/2025 [facility] Immunizations Immunization Date Immunization Notes Care Provider Marty cerna 07-10-2024 influenza virus vaccine, unspecified formulation Catrachito Aiken DO Work Phone: [facility] 07-29-2021 COVID-19 mRNA-1273 (Moderna) [facility] 10-29-2020 COVID-19 mRNA-1273 (Moderna) [facility] 10-01-2020 COVID-19 mRNA-1273 (Moderna) [facility] 06-30-2020 influenza virus vaccine, unspecified formulation Sandrita Floro CN Work Phone: [facility] 07-03-2019 influenza virus vaccine, unspecified formulation Yesica Khan [place] 06-05-2017 influenza, seasonal, injectable Sandrita Floro CNM Work Phone: [facility] 05-12-2017 influenza, injectabl e, quadrivalent, preservative free Sandrita Floro CN Work Phone: [facility] 07-02-2012 tetanus toxoid, redu [place] diphtheria toxoid, and acellular pertussis vaccine, adsorbed Yesica Khan [facility] 05-18-2001 measles, mumps and rubella virus vaccine Sandrita Floro CN Work Phone: [facility] Payers Date Payer Category Payer Commercial Managed C are - HMO [id number] 2024 Managed Care HMO (unspecified) [id number] 2024 Unknown [id number] 2024 Self-pay [id number] 2023 [facility] [id number] 2023 Unknown 2023 Unknown [id number] 2022 Unknown [id number] 2020 Unknown [id number] 2018 Unknown MEDICAL MUTUAL M EDICAL MUTUAL [employer] [facility] xxxxxxxxxxxx 2018-Present [phone] [address] [place] [address] xxxxxxxxxxxx [id number] 2018 Medicaid [id number] 2014 Unknown [employer]OUNT ADVANT AGE [employer]VANTAGE xxxxxxxxxxx 2014-Present [phone] [address] [place] [address] xxxxxxxxxxx [id number] .7.3.351220.315 1988 Unknown [id number] 2.16.840.1.827367.3.579.2 .196 1988 Unknown [id number] 2.16.840.1.258681.3.579.2 .196 1988 Unknown [id number] 2.16.840.1.903442.3.579.2 .196 1988 Unknown [id number] 2.16.840.1.630401.3.579.2 .1286 1988 Unknown [id number] 2.16.840.1.250640.3.579.2 .1286 1988 Unknown [id number] 2.16.840.1.956978.3.579.2 .1286 1988 Unknown [id number] 2.16.840.1.805560.3.579.2 .1286 1988 Unknown [id number] 2.16.840.1.739692.3.579.2 .1286 1988 Unknown [id number] 2.16.840.1.471923.3.579.2 .1286 1988 Unknown [id number] 2.16.840.1.821410.3.579.2 .1286 1988 Unknown [id number] 2.16.840.1.363666.3.579.2 .1286 1988 Unknown [id number] 2.16.840.1.120849.3.579.2 .1286 1988 Unknown [id number] 2.16.840.1.965227.3.579.2 .718 1988 Unknown [id number] 2.16.840.1.253194.3.579.2 .718 1988 Unknown [id number] 2.16.840.1.841063.3.579.2 .718 1988 Unknown [id number] 2.16.840.1.230881.3.579.2 .718 1988 Unknown [id number] 2.16.840.1.485221.3.579.2 .8 1988 Unknown [id number] 2.16.840.1.326911.3.579.2 .718 1988 Unknown [id number] 2.16.840.1.023389.3.579.2 .1988 Unknown [id number] 2.16.840.1.689798.3.579.2 .8 1988 Unknown [id number] 2.16840.1.540083.3.579.2 .1258 1988 Unknown [id number] 2.16.840.1.074467.3.579.2 .1258 1988 Unknown [id number] 2.16.840.1.145254.3.579.2 .1258 1988 Unknown [id number] 2.16.840.1.691378.3.579.2 .9 1988 Unknown [id number] 2.16.840.1.627221.3.579.2 .1258 1988 Unknown [id number] 2.16.840.1.524277.3.579.2 .1258 1988 Unknown [id number] 2.16.840.1.660108.3.579.2 .1258 1988 Unknown [id number] 2.16.840.1.891919.3.579.2 .9 1988 Unknown [id number] 2.16.840.1.139573.3.579.2 .9 1988 Unknown [id number] 2.16.840.1.094671.3.579.2 .1259 1988 Unknown [id number] 2.16.840.1.565911.3.579.2 .1259 1988 Unknown [id number] 2.16.840.1.442813.3.579.2 .1259 1988 Unknown [id number] 2.16.840.1.620854.3.579.2 .1259 1988 Unknown [id number] 2.16.840.1.526787.3.579.2 .1259 Unknown [facility] Employees [id number] Unknown [id number] 2.16.840.1.148778.3.579.2 .531 Unknown [id number] 2.16.840.1.099309.3.579.2 .531 Unknown [id number] 2.16.840.1.874578.3.579.2 .531 Unknown [id number] 2.16.840.1.871139.3.579.2 .531 Social History Date Type Detail Facility Start: 05-17-2019 End: 01-03-2020 Tobacco smoking status NHIS Former smoker [place] Start: 05-17-2019 End: 11-04-2020 Cigarettes smoked current (pack per day) - Reported [place] Start: 05-17-2019 End: 11-04-2020 Alcohol intake Yes [place] Start: 05-17-2019 Alcohol Comment social [place] Start: 1990 Sex Assigned At Not on file [place] Start: 01-03-2020 End: 11-21-2024 Alcohol intake Current drinker of alcohol (finding) [place] Start: 07-29-2016 End: 11-14-2019 Tobacco smoking status NHIS Never smoked tobacco (finding) [facility] Start: 1990 Sex Assigned At Female F [facility] Start: 07-29-2016 End: 04-20-2023 Tobacco use and exposure Smokeless tobacco non-user [facility] Start: 04-21-2024 [facility] Start: 07-29-2016 Alcohol Comment 1-2 drinks per month [facility] Start: 07-05-2024 End: 09-04-2024 Alcoholic beverage intake Ex-drinker (finding) [facility] Start: 04-30-2015 Sex Female (finding) [facility] NEGATED: Highlighted row [facility] Medical Equipment Procedure Code Equipment Code Equipment Origin al Text Equipment Identifier Dates Arthroplasty, knee, total, minimally invasive Uncoated unicondylar knee femur prosthesis ()[id number] FDA Start: 04-29-2024 Arthroplasty, knee, total, minimally invasive Uncoated unicondylar knee tibia prosthesis, metallic ()[id number] FDA Start: 04-29-2024 Arthroplasty, knee, total, minimally invasive Unicondylar knee insert ()[id number] FDA Start: 04-29-2024 Arthroplasty, knee, total, minimally invasive Orthopaedic cement, non-medicated ()[id number] FDA Start: 04-29-2024 1 strip by In Vi tro route Daily Use in the morning prior to breakfast, 1 hour after each meal for a total of 4times daily. [id number] Start: 07-08-2024 End: 08-07-2024 1 each by In Vit ro route Daily Use to check FSBS four times daily [id number] Start: 07-08-2024 End: 08-07-2024 Goals Date Patient Goal Desired Activity /State Clinical Notes 07-11-2023 to 11-21-2024 Mariaelena Machado LPN - 11/21/2024 11:50 AM Chapito Machado LPN - 11/07/2024 1:30 PM Swati Fisher LPN - 10/01/2024 9:50 AM Nicki [...] nursing note reviewed. Exam conducted with a box worker present. Vitals: Estimated body mass index is [...] on Monday, but encouraged to report to [facility] at this time to have monitoring [...] Catrachito Aiken DO documented in this encounter [facility] 11-07-2024 History of Present illness Narrative Reason [...] nursing note reviewed. Exam conducted with a box worker present. Vitals: Estimated body mass index is [...] Catrachito Aiken DO documented in this encounter [facility] 11-06-2024 Note Patient Education Ma terials Follows: [...] or lying down. General instructions ? Take bybr-oec-jdhufnj and prescription medicines only as told by [...] provider. Document Revised: 03/06/2023 Document Reviewed: 03/06/2023 [email or web address] Patient Education ? 2023 [employer] Contusion A contusion is a deep bruise. Contusions are the result of a blunt injury to tissues and muscle fibers under the skin. The injury causes bleeding under the skin. The skin over the contusion may turn blue, p (more content not included)... [facility] 10-01-2024 History of Present illness Narrative Reason [...] nursing note reviewed. Exam conducted with a box worker present. Vitals: Estimated body mass index is [...] Catrachito Aiken DO documented in this encounter [facility] 09-04-2024 History of Present illness Narrative [facility] [...] 03/30/2022 Performed by Mason Martinez DO at [facility] SECTION 06/25/2012 SECTION 10/26/2014 laparoscopic hiatal hernia repair N/A 08/05/2016 Performed by Vahe Fernandez MD at [facility] LAPAROSCOPIC SLEEVE GASTRECTOMY POSSIBLE CLOSURE OF DIAPHRAGMATIC CRURA DNM-CLINIC N/A 08/05/2016 Performed by Vahe Fernandez MD at [facility] MICRODISCECTOMY LUMBAR Allergies: Allergies Allergen Reactions Amoxicillin [...] Resource Strain: Low Risk (03/13/2024) Received from [facility] Overall Financial Resource Strain (CARDIA) Difficulty of Paying Living Expenses: Not hard at all Food Insecurity: No Food Insecurity (07/05/2024) Hunger Screening Food Insecurity - Worry: Never True Food Insecurity - Inability: Never True Transportation Needs: Unknown (03/13/2024) Received from [facility] PRAPARE - Transportation Lack of Transportation (Medical): Not on file Lack of Transportation (Non-Medical): No Physical Activity: Not on file Stress: Not on file Social Connections: Not on file Interpersonal Safety: Not on file Housing Instability: Unknown (03/13/2024) Received from [facility] Housing Stability Vital Sign Unable to [...] gestation of [Z3A.21] Please refer to prior MFM recommendations and consultation notes Ultrasound was reviewed [...] primary OB office. If you would like [facility] to perform the growth ultrasound please place a referral Weekly NST and DVP from 34 weeks until delivery due to the patient's medical co-morbidities. To be done in primary OB office Delivery recommended at 39 weeks or earlier as clinically indicated to remove IUD at time of section. The patient desires tubal ligation The patient has a scheduled ultrasound with [facility] She does not have future follow-up visits at [facility] if you would like for us to see the patient again please reach out was The patient is to continue with routine care in your office Thank you for allowing me to participate in her care. Please contact me if you have any concerns. Christen Reid MD, FACOG (she/hers) Maternal- Medicine [facility] [address] [place] [address] This document was created with [employer] technology. Though I make every effort to review the dictation as it is transcribed, on occasion the spoken word can be misinterpreted by the technology leading to inappropriate words, phrases, or sentences. This note is addressed to the requesting provider as a consultation for clinical guidance. Specific medical abbreviations are occasionally used and those are generally approved by the [place]?Board of?Obstetrics and?Gynecology?as well as?Vilma mckeon abbreviations. The above plan of care was based solely on the diagnoses for which a consultation was requested. ?More frequent testing may be indicated based on her other medical/obstetrical conditions. The management of other or medical conditions is beyond the scope of requested consultation and will continue to be followed by the primary scene painter or primary care provider. Note to patient: [...] provider today? No documented in this encounter [facility] 08-12-2024 History of Present illness Narrative Reason [...] of: [place] documented in this encounter [facility] 07-16-2024 History of Present illness Narrative Reason for Appointment: Patient ID: Lucila Jacques is a 34 y.o. female who presents for No chief complaint on file. Patient presents today for Return OB appointment. MEDICATIONS Current Outpatient Medications Medication Instructions Alcohol Swabs (Alcohol Prep Pad) 70 % pads 1 Pad, Topical, Daily, Use four times daily to check FSBS. Blood Glucose Monitoring Suppl (DDizzywood Glucometer) w/Device kit 1 kit, Does not [...] nursing note reviewed. Exam conducted with a box worker present. Vitals: Estimated body mass index is [...] or undercooked meat, and stay away from [facility]. Patient has been consulted regarding any further do's and don'ts of . Patient voiced understanding and all questions and concerns were answered. Orders Placed This Encounter Procedures POCT urinalysis dipstick manually resulted Follow Up: Patient is to return in 4 weeks for routine OB appointment. Documented by Vikki Fisher LPN on behalf of: Catrachito Aiken DO documented in this encounter [facility] 07-05-2024 History of Present illness Narrative Headache/epigastric [...] yes Have you been seen here at [facility] in a previous ? Yes Recent ER visits or hospitalizations? no Bring blood sugar log or meter with you today? (Please bring them with you for every visit at [facility]) n/a Flu vaccine (Jul-November)? no Any concerns that you would like me to mention to the provider today? Spotting in on and off [facility] Maternal- Medicine Office Visit Note HPI: Lucila [...] 03/30/2022 Performed by Mason Martinez DO at [facility] SECTION 06/25/2012 SECTION 10/26/2014 laparoscopic hiatal hernia repair N/A 08/05/2016 Performed by Vahe Fernandez MD at [facility] LAPAROSCOPIC SLEEVE GASTRECTOMY POSSIBLE CLOSURE OF DIAPHRAGMATIC CRURA DNM-CLINIC N/A 08/05/2016 Performed by Vahe Fernandez MD at [facility] MICRODISCECTOMY LUMBAR OB Hx: OB History Para [...] Resource Strain: Low Risk (03/13/2024) Received from [facility] Overall Financial Resource Strain (CARDIA) Difficulty of Paying Living Expenses: Not hard at all Food Insecurity: No Food Insecurity (07/05/2024) Hunger Screening Food Insecurity - Worry: Never True Food Insecurity - Inability: Never True Transportation Needs: Unknown (03/13/2024) Received from [facility] PRAPARE - Transportation Lack of Transportation (Medical): Not on file Lack of Transportation (Non-Medical): No Physical Activity: Not on file Stress: Not on file Social Connections: Not on file Interpersonal Safety: Not on file Housing Instability: Unknown (03/13/2024) Received from [facility] Housing Stability Vital Sign Unable to [...] bring it to the attention of her scene painter to confirm intact expulsion. 2. Obesity affecting [...] to be sent by Dr. Aiken's office. M is happy to review sugar log as [...] continue with routine care in your office [facility], the CDC, and other organizations representing maternal and public health professionals recommend that , , and lactating people and those considering receive the COVID-19 vaccination. Vaccination is the best method to reduce maternal and complications of SARS-CoV-2 infection. This document was created with [employer] technology. Though I make every effort to review the dictation as it is transcribed, on occasion the spoken word can be misinterpreted by the technology leading to inappropriate words, phrases, or sentences. This note is addressed to the requesting provider as a consultation for clinical guidance. Specific medical abbreviations are occasionally used and those are generally approved by the [place]?Board of?Obstetrics and?Gynecology?as well as?Vilma mckeon abbreviations. The above plan of care was based solely on the diagnoses for which a consultation was requested. ?More frequent testing may be indicated based on her other medical/obstetrical conditions. The management of other or medical conditions is beyond the scope of requested consultation and will continue to be followed by the primary scene painter or primary care provider. Thank you for [...] procedures Referring and communicating with other health rn care manager (not separately reported) Documenting clinical information in the electronic or other health record Independently interpreting results (not separately reported) and communicating results to the patient/family/caregiver Care coordination (not separately reported) documented in this encounter [facility] 06-17-2024 History of Present illness Narrative Reason [...] nursing note reviewed. Exam conducted with a box worker present. Vitals: Estimated body mass index is [...] 24 hour urine and baseline labs. Discussed MFM appointment and plan of care is to have repeat with IUD removal. Patient desires to continue and OB care locally at [facility] office with Dr. Aiken along with M. Patient advised to take 81mg Aspirin if tolerated. Gave patient orders for early 24 hour urine and lab workup. Patient to return to clinic in 4 weeks. Documented by Mariaelena Machado LPN on behalf of: Catrachito Aiken DO documented in this encounter [facility] 05-31-2024 History of Present illness Narrative REASON [...] Obesity, Class III, BMI 40-49.9 (morbid obesity) ([facility]) Gastroesophageal reflux disease without esophagitis Morbid obesity ([facility]) Past Medical History: Diagnosis Date Anxiety Arrhythmia [...] 03/30/2022 Performed by Mason Martinez DO at [facility] SECTION 06/25/2012 SECTION 10/26/2014 laparoscopic hiatal hernia repair N/A 08/05/2016 Performed by [facility] at [facility] LAPAROSCOPIC SLEEVE GASTRECTOMY POSSIBLE CLOSURE OF DIAPHRAGMATIC CRURA DNM-CLINIC N/A 08/05/2016 Performed by Vahe Fernandez MD at [facility] MICRODISCECTOMY LUMBAR SLEEVE GASTROPLASTY 08/05/2016 ALLERGIES: [...] and the other consultants, we search on [employer] and all the available care everywhere epic I did review all the imaging studies of the patient available on EMR, ordered by the primary care physician and the other marine consultant HABITS: Patient activity no restrictions, diet [...] 5 weeks for 1st trimester ultrasound at [facility] office. 4. Targeted anatomy at weeks gestation at [facility] office. 5. Serial growth ultrasounds 4 weeks [...] patient is in complete care of her scene painter. Patient does have ultrasound office visit scheduled with us. Thank you for allowing me to participate in Lucila Jacques . If there any questions please do not hesitate to contact us. Sincerely, LEXI ROBERTSON MD documented in this encounter [facility] 05-23-2024 History of Present illness Narrative Subjective [...] does also recommend for patient to see [facility] For their consultation also. PVU and [...] also given office phone number and [facility] number to call in case of an emergency or after hours needs. PVU and all questions answered. We did discuss place of delivery. Patient should plan to go to [facility] for all services unless an emergency and they need to go to the closest ER. We can make other arrangements possibly if patient would like to deliver at another facility but I did explain I am now at [place] 100% of the time and would like to do all deliveries there. documented in this encounter [facility] 05-22-2024 Telephone encounter Note Pt had an IUD inserted a month ago and has tested positive for , she hadn't been feeling good lately and it is positive, please call to discuss the next step, in her pregancy and IUD [facility] 05-22-2024 Miscellaneous Notes Pt had an IUD inserted a month ago and has tested positive for , she hadn't been feeling good lately and it is positive, please call to discuss the next step, in her pregancy and IUD documented in this encounter [facility] 02-27-2024 Note Education Materials Gastroenterology Laparoscopic cholecystectomy, [...] these instructions at home: Medicines ? Take thdr-ydr-vxndwub and prescription medicines only as told by [...] keep your urine pale yellow. ? Take rbqs-eqq-vwlueon or prescription medicines. ? Eat foods that [...] and water are not available, use hand demographic analyst. ? Place dry dressings as needed. ? Leave skin glue in place. ? Do not take baths, swim, or use a hot tub until your health care provider approves. - You may shower starting WednesFebruary 27. ? Check your incision area every [...] provider. Document Revised: 03/15/2022 Document Reviewed: 03/15/2022 [employer] Patient Education ? 2022 [employer] [facility] 02-27-2024 Note [facility] Clinical Discharge Summary PERSON INFORMATION Name LUCILA JACQUES Age 33 Years 1990 Sex FEMALE Language Lao PCP Provider, None Marital Status Med Service Observation Acct# Arrival 02/26/2024 22:40:28 Visit Reason Abdominal pain; ACUTE CHOLECYSTITIS Acuity LOS 000 10:25 Address: [address] [place], [place] [address] Comment: PROVIDER INFORMATION VITALS INFORMATION Vital Sign [...] ibuprofen Medication List: New Medications [id number], [address], [place] [id number], [phone] acetaminophen-hydrocodone (acetaminophen-hydrocodone 325 mg-5 mg oral tablet) [...] range between ( 1.3 and 2.9 ) Dickey Abs#: 0.6 x103/mcL -- Normal range between ( 0.0 and 0.8 ) Auto Baso %: 0.4 % -- Normal range between ( 0.2 and 2.0 ) Auto Dickey %: 8 % -- Normal range between [...] Anion Gap: 1 (more content not included)... [facility] 01-15-2024 Note [id number] [facility] 01-12-2024 Note [facility] SURGERY Clinical Discharge Summary PERSON INFORMATION Name LUCILA JACQUES Age 33 Years 1990 Sex FEMALE Language Lao PCP Provider, None Marital Status Med Service Pain Management Surgery Acct# Arrival 01/12/2024 10:59:54 Visit Reason GENICULAR PAIN Acuity LOS 004 01:11 Address: [address] [place] [address] Comment: PROVIDER INFORMATION VITALS INFORMATION Vital Sign [...] AM Confirmed DIAGNOSIS Comment: PHYS DOC NOTES [facility] 01-11-2024 Note [id number] The history of present illness has been reviewed. There are no changes document. [Electronically Signed on: 01/12/2024 11:34 EDT] ALEC PATEL MD [Verified on: 01/12/2024 11:34 EDT] ALEC PATEL MD [Transcribed on: 01/11/2024 13:06 EDT] [facility] 08-23-2023 Note Date of Telehealth V isit: 08/23/23 The patient was notified that using 3rd libertarian telecommunication application (e.g. Vite) is not HIPAA compliant and may carry some privacy risks: Yes This visit was conducted knsn-zg-guca with the use of audio and video [...] shortness of breath. She has been using ejof-ohu-querhuw medications with minimal relief of symptoms. ROS: [...] EMR, and coordinating care. Ching Brooks PA-C [facility] 07-11-2023 Note [facility] Telemedicine Visit Date of Telehealth Visit: 07-11-2023 The patient was notified that using 3rd libertarian telecommunication application (e.g. Vite) is not HIPAA compliant and may carry some privacy risks This visit was conducted lutu-ks-hejc with the use of audio and video [...] migraines. Patient states that she is taken jeyu-xpo-vepgjua Tylenol and Tylenol PM. She has a [...] today's date. Greater than 16 minutes spent [id number] assessing patient, reviewing chart and discussing plan of care including treatment options. Care collaborated all questions answered. Rekha Mustafa PA-C Portions of this chart have been completed with voice recognition software, please excuse any errors. [facility] Evaluation note No assessment inform ation available [facility] Work Phone: Evaluation note Diagnosis Onset Date Primary osteoarthritis of left knee acute [facility] Work Phone: Evaluation note* Diagnosis Onset Date Resolution Status Primary osteoarthritis of left knee acute Primary osteoarthritis of left knee acute [facility] Work Phone: Evaluation note* Diagnosis Onset Date Resolution Status Primary osteoarthritis of left knee acute Status post left partial knee replacement acute [facility] Work Phone: Evaluation note* Diagnosis Onset Date Resolution Status Primary osteoarthritis of left knee acute Status post left partial knee replacement acute Status post left partial knee replacement acute [facility] Work Phone: Evaluation note* Diagnosis 14 weeks gestation of Second trimester state, incidental [facility] Diagnosis Exposure to STD Need for maternal serum alpha-protein (MSAFP) screening Screening, , for anatomic survey Encounter for anatomic survey Second trimester state, incidental 18 weeks gestation of [facility] Diagnosis examination or test, positive result- Primary IUD check up Amenorrhea Absence of menstruation [facility] Diagnosis Missed menses Encounter for supervision of normal first in first trimester , unspecified gestational age Encounter for screening for cervical length complicated by intrauterine device (IUD) induced hypertension, antepartum Transient hypertension of , antepartum Multigravida of advanced maternal age in first trimester [facility] Diagnosis Second trimester state, incidental 25 weeks gestation of with normal glucose tolerance test (GTT) Diabetes mellitus screening Screening for diabetes mellitus Retained intrauterine device (IUD) during in second trimester [facility] Diagnosis Third trimester state, incidental 30 weeks gestation of with IUD in place, antepartum, first trimester documented in this encounter [facility]* Diagnosis Retained intrauterine device (IUD) during in first trimester- Primary documented in this encounter [facility]* Diagnosis Retained intrauterine device (IUD) during in first trimester- Primary [facility] Diagnosis Retained intrauterine device (IUD) during in second trimester- Primary BMI 36.0-36.9,adult Multigravida of advanced maternal age in second trimester documented in this encounter [facility] System[facility] note* Diagnosis Retained intrauterine device (IUD) during in second trimester- Primary Obesity affecting in second trimester, unspecified obesity type BMI 36.0-36.9,adult Multigravida of advanced maternal age in second trimester Anxiety during Depression affecting History of 2 sections History of knee replacement, unspecified laterality Bariatric surgery status complicating , second trimester Family history of clubfoot 12 weeks gestation of documented in this encounter [facility] System[facility] note* Diagnosis 21 weeks gestation of - Primary Retained intrauterine device (IUD) during in second trimester History of gastric bypass Obesity affecting in second trimester, unspecified obesity type with history of section, antepartum Multigravida of advanced maternal age in second trimester documented in this encounter [facility] System[facility] note* Diagnosis 21 weeks gestation of - Primary Retained intrauterine device (IUD) during in second trimester History of gastric bypass Multigravida of advanced maternal age in second trimester documented in this encounter [facility]* Diagnosis 32 weeks gestation of Third trimester state, incidental with IUD in place, antepartum, first trimester documented in this encounter [facility] HealthcareInstructionsNot on filedocumented in this [facility] SystemInstructionsNot on filedocumented in this encounterProMad[facility] SystemInstructionsNot on filedocumented in this encounter[facility] InstructionsNot on filedocumented in this [facility] InstructionsNot on filedocumented in this encounterSt. [facility] InstructionsNot on filedocumented in this encounterSt. [facility] Inst[facility]* Attachments The following attachments cannot be sent through Care Everywhere. * Preeclampsia (Lao) * Movement (Lao) documented in [facility] SystemInstructionsNot on file documented in this encounterProMadison Health SystemInstructionsNot on file documented in this [facility]St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 Advance Directive Response Recorded Date/ Time Advance Directives No July 3:35pm Advance Directive Response Recorded Date/ Time Advance Directives No March 26 9:12am Date Activated Date Inactivated Comments 08/05/2016 [...] Specialty Diagnoses / Procedures Referred By Ivan t Referred To Contact Maternal and Medicine Diagnoses Retained intrauterine device (IUD) during in first trimester Procedures US MFM with or without consult Lexi Robertson MD [address] [place] [address] [facility] Maternal Med [address] [place] [address] Referral ID Status Reason Start Date Expiration Date V isits Requested Visits Authorized [id number] Pending Review 05/31/2024 05/31/2025 1 1 Specialty Diagnoses / Procedures Referred By Ivan t Referred To Contact Maternal and Medicine Diagnoses Retained intrauterine device (IUD) during in second trimester BMI 36.0-36.9,adult Multigravida of advanced maternal age in second trimester Procedures US MFM with or without consult Mishel Segovia MD [address], [address] [place] [address] [facility] Maternal Med [address] [place] [address] Referral ID Status Reason Start Date Expiration Date V isits Requested Visits Authorized [id number] Pending Review 07/05/2024 07/05/2025 1 1 Additional Source Comments INFORMATION SOURCE (unrecogn ized section and content) DATE CREATED AUTHOR 10/18/2021 [facility] DATE CREATED AUTHOR AUTHOR'S ORGANIZ ATION 08/30/2023 [facility] DATE CREATED AUTHOR AUTHOR'S ORGANIZ ATION 02/02/2024 [facility] DATE CREATED AUTHOR AUTHOR'S ORGANIZ ATION 03/16/2024 [facility] DATE CREATED AUTHOR AUTHOR'S ORGANIZ ATION 06/13/2024 [facility] DATE CREATED AUTHOR AUTHOR'S ORGANIZ ATION 09/07/2024 [facility] DATE CREATED AUTHOR AUTHOR'S ORGANIZ ATION 10/16/2024 [facility] DATE CREATED AUTHOR AUTHOR'S ORGANIZ ATION 11/12/2024 [facility] DATE CREATED AUTHOR AUTHOR'S ORGANIZ ATION 11/23/2024 [facility] Special[facility] EPIC Care Teams (unrecognized sec tion [...] June 11, 2024 End: June 11, 2024 Director Of Informatics Relationship Specialty Start Date End Date Unallocated, Haley Garcia MD [facility] [facility] [place] [address] PCP - General Family Medicine 02/01/24 Victor M Lujan NP [address] [place] [address] PCP - [facility] 03/25/24 Team Status: Inactive Member Role Status Dates NON STAFF Primary Care Provider Active Start: July 17, 2024 End: July 17, 2024 Santa Estrada II, MD Attending Provider Active Start: July 17, 2024 End: July 17, 2024 Director Of Informatics Relationship Specialty Start Date End Date Unallocated, Haley Garcia MD [address] [place] [address] PCP - General Family Medicine 02/01/24 Victor M Lujan NP [address] [place] [address] PCP - [facility] 03/25/24 Director Of Informatics Relationship Specialty Start Date End Date Unallocated, Haley Garcia MD [facility] [place] [address] PCP - General Family Medicine 02/01/24 Victor M Lujan, BENEFITS CONSULTANT [address] [place] [address] PCP - [facility] 03/25/24 Director Of Informatics Relationship Specialty Start Date End Date Unallocated, Haley Garcia MD [facility] [place] [address] PCP - General Family Medicine 02/01/24 Victor M Lujan, BENEFITS CONSULTANT [address] [place] [address] PCP - [facility] 03/25/24 Director Of Informatics Relationship Specialty Start Date End Date Unallocated, Haley Garcia MD Counts include 234 beds at the [facility] [place] [address] PCP - General Family Medicine 02/01/24 Victor M Lujan, BENEFITS CONSULTANT [address] [place] [address] PCP - [facility] 03/25/24 Director Of Informatics Relationship Specialty Start Date End Date Unallocated, Haley Garcia MD [facility] [place] [address] PCP - General Family Medicine 02/01/24 Victor M Lujan, BENEFITS CONSULTANT [facility] [place] [address] PCP - [facility] 03/25/24 Director Of Informatics Relationship Specialty Start Date End Date Unallocated, MD Jeanna Harden0 [place] [address] PCP - General Family Medicine 02/01/24 Victor M Lujan, BENEFITS CONSULTANT [address] [facility] [place] [address] PCP - [facility] 03/25/24 Director Of Informatics Relationship Specialty Start Date End Date Unallocated, Noms MD Radha [address] [place] [address] PCP - General Family Medicine 02/01/24 Victor M Lujan, BENEFITS CONSULTANT [address] [place] [address] PCP - [facility] 03/25/24 Director Of Informatics Relationship Specialty Start Date End Date Unallocated, Haley Garcia MD [address] [place] [address] PCP - General Family Medicine 02/01/24 Victor M Lujan, BENEFITS CONSULTANT [address] [place] [address] PCP - [facility] 03/25/24 Director Of Informatics Relationship Specialty Start Date End Date Unallocated, Haley Garcia MD [address] [place] [address] PCP - General Family Medicine 02/01/24 Victor M Lujan, BENEFITS CONSULTANT [address] [place] [address] PCP - [facility] 03/25/24 Director Of Informatics Relationship Specialty Start Date End Date Unallocated, Haley Garcia MD [address] [facility] [place] [place] [address] PCP - General Family Medicine 02/01/24 Victor M Lujan, BENEFITS CONSULTANT [address] [place] [address] PCP - [facility] 03/25/24 Director Of Informatics Relationship Specialty Start Date End Date Unallocated, Haley Garcia MD [address] [facility] [place] [address] PCP - General Family Medicine 02/01/24 Victor M Lujan, BENEFITS CONSULTANT [address] [place] [address] PCP - [facility] 03/25/24 Director Of Informatics Relationship Specialty Start Date End Date Unallocated, Haley Garcia MD [address] [place] [address] PCP - General Family Medicine 02/01/24 Victor M Lujan, BENEFITS CONSULTANT [address] [place] [address] PCP - [facility] 03/25/24 Director Of Informatics Relationship Specialty Start Date End Date Unallocated, Haley Garcia MD [address] [place] [address] PCP - General Family Medicine 02/01/24 Victor M Lujan, BENEFITS CONSULTANT [address] [place] [address] PCP - [facility] 03/25/24 Director Of Informatics Relationship Specialty Start Date End Date Unallocated, Haley Garcia MD [address] [place] [address] PCP - General Family Medicine 02/01/24 Director Of Informatics Relationship Specialty Start Date End Date Pcp, [place] [address] PCP - General Family Medicine 09/04/23 Director Of Informatics Relationship Specialty Start Date End Date Pcp, [place] [address] PCP - General Family Medicine 09/04/23 Director Of Informatics Relationship Specialty Start Date End Date Pcp, [place] [address] PCP - General Family Medicine 09/04/23 Director Of Informatics Relationship Specialty Start Date End Date Pcp, [place] [address] PCP - General Family Medicine 09/04/23 Director Of Informatics Relationship Specialty Start Date End Date Pcp, [place] [address] PCP - General Family Medicine 09/04/23 Director Of Informatics Relationship Specialty Start Date End Date Pcp, [place] [address] PCP - General Family Medicine 09/04/23 Director Of Informatics Relationship Specialty Start Date End Date Pcp, [place] [address] PCP - General Family Medicine 09/04/23 Director Of Informatics Relationship Specialty Start Date End Date Pcp, [place] [address] PCP - General Family Medicine 09/04/23 Director Of Informatics Relationship Specialty Start Date End Date Unallocated, Noms Provider, [place] [address] PCP - General Family Medicine 02/01/24 Director Of Informatics Relationship Specialty Start Date End Date Pcp, [place] [address] PCP - General Family Medicine 09/04/23 Goals (unrecognized section and content) Goals may [...] BE BASED ON THE PRIMARY CLINICAL RECORDS. [facility] [employer] [facility]. provides no warranty or guarantee of the accuracy or completeness of information in this document.
[2024-11-28 07:55] VITALS: BP 118/67; PULSE 88
== END 2024-11-28 08:40 | disposition home or self-care (01) ==
LOC: US 01:50 → FBC 07:31
PROVIDERS: Visit Provider Obstetrics & Gynecology
DX: O26.893 Other specified pregnancy related conditions, third trimester (principal)
CPT/HCPCS: 76818

== ENCOUNTER 2024-12-02 09:55 | Outpatient (OUT) | payer OTHER, SELFPAY ==
--- NOTE | 2024-12-02 10:08 | US_ITS ---
[place] [address] Patient Name: LUCILA JAMES MRN: [id number] date: 1990 Sex: F Assigned Patient Location: [facility] Current Patient Location: Accession/Order Number: [id number] Exam Date: 12/02/2024 13:46 Report Date: 12/02/2024 13:48 At the request of: BRYAN BALDERRAMA DO Procedure: US OB BPP w non-stress BIOPHYSICAL PROFILE: CLINICAL INFORMATION: with IUD in place COMPARISON: 11/28/2024 A single live intrauterine gestation is present in cephalic presentation. The reported gestational age is 34 weeks 1 day. The heart rate [id number] beats per minute. FINDINGS: TONE: 1 or more episodes of activity extension and flexion of extremity or opening and closing of the hand [Y] 2/2 GROSS BODY MOVEMENTS: 3 or more discrete body or limb movements [Y] 2/2 BREATHING MOVEMENTS: 1 or more episodes of breathing lasting at least 30 seconds [Y] 2/2 ISAIAH: A single deepest vertical pocket of amniotic fluid greater than 2 cm [Y] 2/2 ISAIAH: 6.1cm . This is less than the 5th percentile. Total score: 8/8 US/US OB BPP w non-stress IMPRESSION: NORMAL BIOPHYSICAL PROFILE. OLIGOHYDRAMNIOS. Impression dictated by: Vikki Rivers M.D.12/02/2024 1:48 PM Dictation Location: [place] [address] Electronically authenticated by: [id number] Y Date: 12/02/2024 13:48
--- OUTSIDE RECORDS SUMMARY | 2024-12-02 10:16 | XMS_ITS | CCD ---
Author Organization [facility] Care Team Providers Care Compounder Name Role Phone Yesica Khan Primary Care [...] Attending Provider MD Maurizio Mast Attending Provider [phone] NO FAMILY, PHYSICIAN Primary Care Provider UnaMD Santa Guzman II Referring Provider [phone] MD Santa Estrada II Attending Provider NON STAFF Primary Care Provider Unavailabl e NON STAFF Primary Care Unavailable Santa Estrada II Attending Unavailabl Santa Heller II Admitting Unavailabl e Santa Estrada II [...] Care Unavailable Santa Estrada II Admitting Unavailabl e Santa Estrada II Attending Unavailabl e Sean CURRIE, Santa Jensen Referring Unavailabl e Unallocated Mariela MURGUIA Provider Primary Care Provi sharla Tai GUSMAN, Victor M Gongora Unavailable NON STAFF Primary Care Provider UnavailMD [...] IN SYSTEM Primary Care Unavailable Unallocated , Mariela Provider Primary Care Provi sharla SANTA ESTRADA Referring Unavaila ble PCP, NOT IN SYSTEM Primary Care Unavailable [address] [place] [address], [facility] Referring Unavailable PCP, NOT IN SYSTEM Primary Care Unavailable ATTILA, CATRACHITO R Referring Unavailable PCP, NOT IN SYSTEM Primary Care Unavailable Pcp, Not In System Primary Care Provider Unavail able Peter Booth Attending Unavailable Provider, None Primary Care Unavailable Mcdowell, Audra M Admitting Unavailable Mcdowell, Audra M Attending Unavailable Provider, None Primary Care Unavailable Provider, None Primary Care Unavailable Maurizio Mast Admitting Unavailable Maurizio Mast Attending Unavailable Juliano Peterson Consulting Unavailable Mcdowell, Audra M Admitting Unavailable Mcdowell, Audra M Attending Unavailable Provider, None Primary Care Unavailable Mcdowell, Audra M Attending Unavailable Provider, None Primary Care Unavailable Mcdowell, Audra M Admitting Unavailable KINDL ALEC F Admitting Unavailable KINDL ALEC F Attending Unavailable Provider, None Primary Care Unavailable Provider, None Primary Care Unavailable Randy Walker Admitting Unavaila Randy Landers Attending Unavaila ble Peter Booth Attending Unavailable Provider, None Primary Care Unavailable ATTILA, CATRACHITO Attending Unavailable ATTILA, CATRACHITO Attending Unavailable GENEVIEVE DONOVAN Attending Unavailable CATRACHITO AIKEN Attending Unavailable SANDRITA BOWERS Referring Unavailable SANDRITA BOWERS Attending Unavailable SANDRITA BOWERS Attending Unavailable SANDRITA BOWERS Attending Unavailable VICTOR M LUJAN Attending Unavailable VICTOR M LUJAN Referring Unavailable VICTOR M LUJAN Attending Unavailable ATTILA, CATRACHITO Attending Unavailable ATTILA, CATRACHITO Attending Unavailable NITIN AIKENY R Referring Unavailable PCP, NOT IN SYSTEM Primary Care Unavailable Allergies Allergy Classification Reported Allergen(s) Allergy Type Date of Onset Reaction(s) Facility Magnesium (1 source) Magnesium Drug Allergy 4 [facility] NSAIDs (1 source) Ibuprofen Drug Allergy 4 [facility] Potassium (1 source) Potassium Drug Allergy 4 [facility] (2 sources) Magnesium-Conta ining Compounds Propensity to adverse reactions to drug 9 [place], [place] (20 sources) Ibuprofen; Translations: [ibuprofen] Drug Allergy 9 [place], [place] (1 source) Potassium-Conta ining Compounds Propensity to adverse reactions to drug 0 [place] (1 source) ALLERGIES NOT ON FILE; Translations: [ALLERGIES NOT ON FILE] Propensity to adverse reactions (disorder) [facility] Repository (20 sources) Magnesium; Translations: [magnesium] Drug Allergy 2 [facility] (20 sources) Potassium; Translations: [potassium] Drug Allergy 3 [facility] (9 sources) Contrast media Allergy to substance 4 [facility] (6 sources) NSAIDS (Non-Steroidal Anti-Inflamma Allergy to substance 4 [facility] (1 source) Ibuprofen Drug Allergy 4 [facility] Rep[facility] (20 sources) Non-steroidal anti-inflammato ry agent Drug Allergy 3 [facility] Work Phone: (20 sources) Amoxicillin-Pot Clavulanate Drug Intolerance 1 [facility] Healthcare (20 sources) Amoxicillin; Translations: [AMOXICILLIN] Drug Allergy 4 [facility] (12 sources) NSAIDs; Translations: [NSAIDS (NON-STEROIDAL ANTI-INFLAMMATO RY DRUG)] Propensity to adverse reactions to drug (disorder) 2 Hives [facility] (20 sources) Potassium Chloride; Translations: [POTASSIUM CHLORIDE] Drug Allergy 2 Hives [facility] (15 sources) Iodinated Contrast Media; Translations: [IODINATED CONTRAST MEDIA] Drug Intolerance 4 Hives, Itching, Rash [facility] [...] Three times daily March 18, 2024 12:00am Calcium Citrate (20 [...] mouth Daily 08/12/2024 Discontinued (Therapy completed) levonorgestrel 0.272211 mg/hr intrauterine system (2 sources) Progestin, Progestin-containing [...] VITAMINS DAILY ORAL) Take by mouth. Active Vansant (No Known Home Meds) (4 sources) Start: 2019 Vansant (No Known Home Meds) Active November 14, [...] / sennosides, correction 8.6 mg oral tablet (6 sources) Start: [...] August 30, 2017 12:44pm polyethylene glycol 3350 02818 mg powder for oral solution (6 sources) [...] current use of drug therapy; Translations: [Other roasterman (current) drug therapy] 03-12-2024 Episodic Other complications [...] conditions (not mental disorders or infectious disease) (11 sources) Alpha-fetoprotein blood test status; Translations: [Encounter [...] (1 source) IUD in place in Onset: Past or Other Problems Problem Classification Problem [...] 04-18-2016 Episodic Other aftercare (1 source) Other roasterman (current) drug therapy; Translations: [Other roasterman (current) drug therapy] Onset: 03-12-2024 Episodic Other [...] Value Interpretation Reference Range Facility AMNISUREon 11-25-2024 [facility] AMNISURE Negative NEGATIVE [facility] US OB BPP W NON-STRESS on 11-25-2024 [place] [address] Ultrasound Report Signed Patient: LUCILA JACQUES MR#: [id number] : 1990 Acct:[id number] Age/Sex: 34 / F ADM Date: 11/25/24 Loc: US Attending Dr: Catrachito Aiken D.O. Ordering Physician: Catrachito Aiken D.O. Date of Service: 11/25/24 Procedure(s): US OB BPP w non-stress Accession Number(s): [id number] cc: Catrachito Aiken D.O.; Physician,Non-Staff M.DWalker [place] [id number] Patient Name: LUCILA JACQUES MRN: [id number] date: 1990 Sex: F Assigned Patient Location: [facility] Current Patient Location: [facility] Accession/Order Number: [id number] Exam Date: 11/25/2024 16:14 Report Date: 11/25/2024 16:15 At the request of: CATRACHITO AIKEN DO Procedure: US OB BPP w non-stress Biophysical profile. Reason for exam: IUD in place with current . COMPARISON: BPP 11/21/2024. TECHNIQUE: Transabdominal imaging of the gravid uterus was obtained. FINDINGS: The home health aide caregiver reports a BPP of 8 out of 8. ISAIAH 6.7 cm heart rate 140 bpm. US/US OB BPP w non-stress IMPRESSION: BPP 8 out of 8. Impression dictated by: Haile Palacio Jr., D.O.11/25/2024 4:15 PM Dictation Location: [place] [address] Electronically authenticated by: [id number] Y Date: 11/25/2024 16:15 Dictated By: Haile Palacio M.D. Signed By: 11/25/248 DD/ 14 TD/TT: Brake Lining Driller: [facility] RadiologyIsidraogrodriguez brown MD - 11/25/2024 [place] [address] Ultrasound Report Signed Patient: LUCILA JACQUES MR#: [id number] : 1990 Acct:[id number] Age/Sex: 34 / F ADM Date: 11/25/24 Loc: US Attending Dr: Catrachito Aiken D.O. Ordering Physician: Catrachito Aiken D.O. Date of Service: 11/25/24 Procedure(s): US OB BPP w non-stress Accession Number(s): [id number] cc: Catrachito Aiken D.O.; Physician,Non-Staff [place] [address] Patient Name: LUCILA JACQUES MRN: [facility]:[id number] date: 1990 Sex: F Assigned Patient Location: [facility] Current Patient Location: [facility] Accession/Order Number: [id number] Exam Date: 11/25/2024 16:14 Report Date: 11/25/2024 16:15 At the request of: CATRACHITO AIKEN DO Procedure: US OB BPP w non-stress Biophysical profile. Reason for exam: IUD in place with current . COMPARISON: BPP 11/21/2024. TECHNIQUE: Transabdominal imaging of the gravid uterus was obtained. FINDINGS: The home health aide caregiver reports a BPP of 8 out of 8. ISAIAH 6.7 cm heart rate 140 bpm. US/US OB BPP w non-stress IMPRESSION: BPP 8 out of 8. Impression dictated by: Haile Palacio Jr., D.O.11/25/2024 4:15 PM Dictation Location: [place] [address] Electronically authenticated by: [id number] Y Date: 11/25/2024 16:15 Dictated By: Haile Palacio M.D. Signed By: 11/25/241617 DD/ 14 TD/TT: Brake Lining Driller: [facility] Radiology Study observation (narrative) [facility] US OB BPP W NON-STRESS Ordered By: Radiologist Radiology on 11-25-2024 [facility] Work Phone: AMNISUREon 11-21-2024 [facility] AMNISURE Negative NEGATIVE [facility] No Panel InformationOrdered By: Radiologist Radiology on 11-21-2024 [facility] Work Phone: No Panel Informationon 11-21 Radiology Study observation (narrative) [facility] US OB BPP W NON-STRESS on 11-21-2024 [place] [address] Ultrasound Report Signed Patient: LUCILA JACQUES MR#: [id number] : 1990 Acct:[id number] Age/Sex: 34 / F ADM Date: Loc: [facility] Attending Dr: Catrachito Aiken D.O. Ordering Physician: Catrachito Aiken D.O. Date of Service: 11/21/24 Procedure(s): US OB BPP w non-stress Accession Number(s): [id number] cc: Catrachito Aiken D.O.; Physician,Non-Staff [place] [address] Patient Name: LUCILA JACQUES MRN: [id number] date: 1990 Sex: F Assigned Patient Location: [facility] Current Patient Location: Accession/Order Number: [id number] Exam Date: 11/21/2024 18:27 Report Date: 11/21/2024 [...] Ruddy Esquivel M.D.11/21/2024 6:32 PM Dictation Location: [place] [address] Electronically authenticated by: [id number] Y Date: 11/21/2024 18:32 Dictated By: Ruddy Esquivel M.D. Signed By: 11/21/241834 DD/ 31 TD/TT: Brake Lining Driller: [facility] Radiology, Radiologi MD kevin - 11/21/2024 [place] [address] Ultrasound Report Signed Patient: LUCILA JACQUES MR#: [id number] : 1990 Acct:[id number] Age/Sex: 34 / F ADM Date: Loc: [facility] 250- Attending Dr: Catrachito Aiken D.O. Ordering Physician: Catrachito Aiken D.O. Date of Service: 11/21/24 Procedure(s): US OB BPP w non-stress Accession Number(s): [id number] cc: Catrachito Aiken D.O.; Physician,Non-Staff [place] [address] Patient Name: LUCILA JACQUES MRN: [facility]:[id number] date: 1990 Sex: F Assigned Patient Location: [facility] Current Patient Location: Accession/Order Number: [id number] Exam Date: 11/21/2024 18:27 Report Date: 11/21/2024 [...] Ruddy Esquivel M.D.11/21/2024 6:32 PM Dictation Location: [place] [address] Electronically authenticated by: [id number] Y Date: 11/21/2024 18:32 Dictated By: Ruddy Esquivel M.D. Signed By: 11/21/241834 DD/ 31 TD/TT: Brake Lining Driller: [facility] US OB GROWTHon 11-21-2024 [place] [address] Ultrasound Report Signed Patient: LUCILA JACQUES MR#: [id number] : 1990 Acct:[id number] Age/Sex: 34 / F ADM Date: Loc: [place] [address]: Catrachito Aiken D.O. Ordering Physician: Catrachito Aiken D.O. Date of Service: 11/21/24 Procedure(s): US OB growth Accession Number(s): [id number] cc: Catrachito Aiken D.O.; Physician,Non-Staff [place] [id number] Patient Name: LUCILA JACQUES MRN: [id number] date: 1990 Sex: F Assigned Patient Location: [facility] Current Patient Location: Accession/Order Number: [id number] Exam Date: 11/21/2024 18:27 Report Date: 11/21/2024 18:32 At the request of: CATRACHITO IAKEN DO Procedure: US OB growth US OB [...] Ruddy Esquivel M.D.11/21/2024 6:32 PM Dictation Location: [place] [address] Electronically authenticated by: [id number] Y Date: 11/21/2024 18:32 Dictated By: Ruddy Esquivel M.D. Signed By: 11/21/241834 DD/ 31 TD/TT: Brake Lining Driller: [facility] Radiology, Radiologi MD kevin - 11/21/2024 [place] [address] Ultrasound Report Signed Patient: LUCILA JACQUES MR#: [id number] : 1990 Acct:[id number] Age/Sex: 34 / F ADM Date: Loc: [facility] Attending Dr: Catrachito Aiken D.O. Ordering Physician: Catrachito Aiken D.O. Date of Service: 11/21/24 Procedure(s): US OB growth Accession Number(s): [id number] cc: Catrachito Aiken D.O.; Physician,Non-Staff [place] [address] Patient Name: LUCILA JACQUES MRN: [facility]:[id number] date: 1990 Sex: F Assigned Patient Location: [facility] Current Patient Location: Accession/Order Number: [id number] Exam Date: 11/21/2024 18:27 Report Date: 11/21/2024 [...] Ruddy Esquivel M.D.11/21/2024 6:32 PM Dictation Location: [facility] Electronically authenticated by: [id number] Y Date: 11/21/2024 18:32 Dictated By: Ruddy Esquivel M.D. Signed By: 11/21/241834 DD/ 31 TD/TT: Brake Lining Driller: [facility] Urinalysis macro (dipstick) panel (U)on 11-21-2024 Bilirubin, UA Positive Negative - 4(70) +++ mg/dL [facility] Comment on above: small Blood, UA Negative Negative - 50 Asif/mcL [facility] Clarity, UA Clear [facility] Color, UA Bibiana [facility] Glucose, UA Negative Negative - 2000(110) ++++ mg/dL [facility] Interpretation and review of laboratory results Abnormal [facility] Ketones, UA Positive Negative - 160(16) ++++ mg/dL [facility] Comment on above: trace Leukocytes, UA Negative Negative - 500+++ Shivani/mcL [facility] Nitrite, UA Negative Negative - Positive [facility] pH, UA 5.5 5 - 9 [facility] Protein, UA Positive Negative - 2000(20) ++++ mg/dL [facility] Comment on above: 30 Spec Grav, UA 1.03 1 - 1.03 [facility] Urobilinogen, UA 1.0 0.2 - 12 mg/dL [facility] Coding Summaryon 11-11-2024 Coding Summary HTMLBase 64 PhkoztzhIFb7fYm+PGhlYWQ+PE1 IVFNtA50brWUlsF3wW9SIDQsFMf ggURLXYWoEQfVlodAmOV3xqFZzL XJu IC8+ED4lVAIzNqkogAFyl7B6mQB 2I20yuz6oZJuynEZ9XPDxLcZpfq gsr6uquBr0BDwqXkqyXmDr FLZkgO37UJI0qD98Hc48iTUkpLI in6rcoZx9CoTzICIsPDB7oKonNI zuh4ZdJBRsN20yyERlw2F8 RCYucUvwyOKqWuNksXN8fK6rVMu tmtpgt7zshultZfy9cc53zDIjd8 Q6lDI4C2ImxoB9ADMnzUEw ZbwthEDGyG1cqhklp4kenyktJeP xZXJtBOv7VIt3BWRepTwyBuYtLV 58MHR9QBDjpoVuP7ZnBWRw oMeqJzQ6a0T3Vz9ZN7NAYqbcU0B NTUFSWTwvdGQ+PJ71pw06U3WvWw qvJjv0VXNtPCC6gOO1mJ4s KAVkJGpkm6E9kLJ1M5JxweUhmc1 ph8fkJVYqUNueP27udJVvb3A2GM PvjHM4CMBnwKbfIdItiK70 Oyc+BMQsgZcfc8XnIfzje6rqy6g viJa4BgcnQBZskxJsjDeiCXZ1d2 WcNp2zAXVkdVB9uYT8sP4l XePeFkT0VSwbT134ZaAqyTYyZsa rG92gU4NenXX+VELyKod8IBLnjE hpRQ7rA2FtPADtucjtrDMs hIhfYC2zFTNotckfQENzgL8xKNR bB0k9VvZpMlV7PUweT6JvELEvdy xcRu76bS7dLwOqYpS2APsd M2FhuaB5RNDmsFFvACawXWU0Q45 jh7Y9WIXuJDIqZUM6bWO2kV0nsZ lnbjogbGVmdDsgdmVydGlj XOyaWNnuB500AGVhnKfxMbCsFGt uZyBEYXRlOiAgMDIvMTcvMjAyNT wvdGQ+EQRpWFV7cTiyGRBs pAFvEIboAk1ckOuuoEwjOW5eOYT awpkiUCWpqK4zKUKywHAckGbjXV 5kRSEhgulkj296TgYlCYC8 BAAluGIiW8DqdJ6aWrXuELMbDUM pP1VleABuSLxaX346KErxEzA4PO MqzjHeK8FaVPLuyYpqXpV2 z5I1Dw5Iu8YhxesnH2BlyFVoCaA qRgzjEZy4F5MaCiuwjTE+PC90YW FbOG53YMe7DZO2nVcaJMqv WKXmW8NeoG0yGrCaPBJqFRNdGnf +PHRhYmxlIHdpZHRoPScxMDAlJy MzsXsmQJ9aXj5oJSPvDLIg vHhskINpOmMlc3flAIFaCMaxIQ1 saZlxB7MpaJG6QZCsv7v9Nk58U7 1mW5SnaOP+LJVhlXR1fYA6 gL8rHlInVnU6RBcwP492KaIoeZP jJypjt4sar8xvdLp8NzU5NUPinx OkfFkaLKU8b4XfOf28P62v IHdpZHRoPSIxNSUiIHZhbGlnbj0 cyD6bMs8+BWFjzJQ9gVM5mZ0hJq UqFhD6MPqkU327RzUryDEy Nekrm3nsw5hrdQu6DkGyVTNiapU edBavZDL2f8MjSx29M3CivLhjg7 ByFcn7ez01qIUjz1B1uKK7 Q7QhWRIynjzxdMNptBlzZF0xIHY oubqzVLRqlT5uOVIfJ9y1OjAtAl R1VQaoH3NhrtB7JLUorOWj IEAkoWDAkO7kspjeg5urrezfTaU uRJCnGKe1WKl4NAUkaGurEiKkBM F7QcB3JUY0wYHduC9vnXir aifgkU8eCch+ZDU4uKMgdCXGSX3 lOjwvdGQ+XIIzRJQ2eNqjADodWL JzfT3tZNOwZ5i1XbJaXnO5 HPjhZ6IznnU8QSZloSDnNSWctXL PjU5jkjhyc0yerrlvOjCgDAGjQP j5PLj4VAVqmCuoKtXwAFY3 BmW1YEO3nFVopL6qpHpgfudyqS1 wOyc+HoeadBwrAXD5MWt8P9JlRv c2IBCocLgaJF6dvINiFMko Wu7lkVboqJisVF1oXZAcxsdor69 4YcTxw7dqNUAmdZXsRAxuROV9Z0 7gz1C6VQSoVZBpLPO2tDX2 nJ0puLqwpfxrvAHxsWccerWapOn iITkxDIccY050JHKdsXncXaRvCD q2I0UyXhb6OXBwyXrsNR4i jCKrKMdeQd8dfKewwLekSR6vEYI ensrsg061HpGwb8upDZJxuKFcKH fkNKO1F55ki7X3OIDhIKNd KAX4uDE5zM6emLajrxvxkDPxzWt ngfWcsSgpYCugHIcqS389XKPmwG bpHbSboWa8N6PrHle0YIGf vGzdIW9npMClSEerMk3szFbasLy pFY2mPJRailrjt612OdRnk9ebVK CohCLkXPafQVZ0W36pz3F4 PFAvGFPhVVN5dPF0hX8itBeghfa gbGVmdDsgdmVydGljYWwtYWxpZ2 46IHRvcDsnPlBhdGllbnQg BXohLRr8S8OpTqtzoVN+DQ53KVS vDD08oVJlcNHqb3jsbOu1CpRaNO XlYYX2cUcuONjob8GiOLLc T77ssEUrl1A6WQWybYmgnZCnUaE tiHJ2oZ0pPJcvqicrt4hrpoqpFt khx8xisc13wP11K53lSTgd SLOyZIRsYDCiBVFrsRrjxw5osI6 wIi8+KSPcbVA7sDC4gO2oSASxUu G8ZCtnR217LrPepFRjWgvo t5oiu1jbiCn2MuX6NZNqvlTfbSt uMPR7w5QiTs85A81zEKvkHTBnZQ QuGAHsXCWtdSqrzw6qeO2s Ii8+EYFheGM9aNT2fV8lApBiTkD 7RHzfS555LaHvwPCpEfbwD43bA4 JvdXA+MSZaMci5LTKxzQvx FC3bfHCrACxcSe2uRWF9EhZsUwW wKOigK2SmSZApiekzajjigRD2TW HrNTZbtS98Cy3fwClrSMFd dYKWmX8frbuwi5dmqcsrJtVtDZW yGGe0HLz5VTTfsUytVdHoNCD9Lj F4FXA9bWJngD3bvXczeveg xV2sN6NeUKQcmblrFk16lR7jByG xXgK2LQmpHxg+HeEDRrigR6IMAJ sPRwGATJP9W4RqNnc7GSXb sRnuRT9tpPAzZRfjFa4epOodtUk vTZ8jFFMvjbfeLGJdwN7gQMYvgB WqoZjyNP9jVBMhdcuup329 FeUhXYL7GCAbaNOvC9CcoY7wJeA wEBYzVEUeH7VidSWrCVvxM380YZ uvYqK9UBSamwGrJ9AkUORk zMklLrZ1n9P6Jt2eQV7xOt0bEFv 9RU13XP17yIRji0R9fBI7G3EeAG MxobxsnnqgrJD3JXVfVYGk qL32aNCpRCsrFx8lb7J9b977CXI rNWTnbW67Rl3qyUfsQNObaNAKyK 1ssewqt9rdskflBfDmBWMm WYs9TDf7CKWejPfxFxEiKDG9YxP 4KHI2oWQpsE0leHpvdiumkD8zAd c+GzTjMAXavuI3C4QqGku2 KSGtcXslXI4rjIOuMBgyVx1ugRp ogQrdKV9aLPDdofbsDYPqtL7vQB BhuUGhuMjdWT1iHGNtrain j241SiVqJDT3BEGarYSfF4VmlH7 dOiLdLOCrAETpI2OkvRIkILcnF2 96SThbWwA5VGHmsoOpR6Vh DDRokZtsGxD2d1W9Ga8UBR0HZYN 9F9ReVxu9JUYxnWgkOU3xmXWbZU zhFu8rjUiskWfpCD9yLLOi rxrlHARygG4bQQZydKOuzMweIU1 vMNUtxzatk632MhDzSHA4VMXcsE SxE0EvcI1iBhWaPCAeOPJq Q1JljLAyAMnwN123NNfpSkG2JKZ ybxRrI8XvLWPqrHsjLqJ7v1C2Mh 5PUDwvdGQ+RS30lx53C4Wv IfytKts4KMTuQIE5jDZ8yM6jDJO dADyzv1M3aXA9F0IuriMlir7wq6 goAJEtYAonK96uhGKwv3L7 HQAxoNU2GYDtqCnnZdAbwG30Mhv +OADvlEuud8TgFbnzl6wkz8ifoE h3AhYaTLVftlSpaDgvQQM6 e0JkEr70R11bPNkgOJKzLNVgVJE cEIHpmFtvjw4amU3xRl0+PGNvbC D4zEY9zE0qVgSiRlI8KDzk W042SkXdbOTuActgg2fhq3copEz 5MzUwEHHnwxLicFciFIK0f1ZyGg 10L2AioVqqd8LzOub1ha20 kYGgi1U2lKH0F9HrHHMljxobsQH slZsrSC5wLZVruszoUQFgoD8yAL QpJ9d2AkJnKkB7OBidF9Zh qeA0BFTkiMZyLKAgtBALtQ7fejr uu9hegycbFgAfABZmWPo6QPe2HG EvnOazPbVqCZE4ObP1LZD8 yJPglG4qvNfvsnhcjE8vZxv+UGh 6i0avrDEaPE8shRQ0AG21CB69zZ Bxt8X7sNS3N2VjUVWkooth fjufnKM3DXWfTTHihZ50Km6wcBm bAa4qETPuHOA0SLRqcWOnH5PluU 4pQnSeADUySGEnM2HadRGf DYohH750KKgfYpO2VVEdxkQbJ8J qXKVskEfjZgX4g6D4Dk6NRD88RJ 96QT77gHUcj7L6eAH6Y7Xe QBXotzsfduayzDY6PNTvXBAdwV2 6Dw2yoYaxZc2jMVLhOHY5KYOkiH HeM4IimX5jYuYjRTLfQHOk D2XgsFIeYRxwH898PXzjXuS7BGK hswHmU1TlTHAreCfrNwG7s7P5Ac 5ANz91SC69KU92aAWor6L0 iVL7F9EqNQCxnnlmlxelgFN6KIE oUREbjW33Br5ybQieKo3sGYJgLT Y2STBmoHFxU6FucF9hBqUf NHWhAFQkB7WtkXIbAYujF898OVy zTlF1FKGnfnTiO1PxMURxnJpnHl S6q4J4Gw7JKUgxwes6G7Wu PjwvdHI+UM63FMIrKX75dESfrZJ ut0mwpWr5EsAoJRObRVE5oVpmYP ywq3KiNIJfY98kgFLse2V3 IGN (more content not included)... Normal [facility] Urinalysis macro (dipstick) panel (U)on 11-07-2024 Bilirubin, UA Positive Negative - 4(70) +++ mg/dL [facility] Comment on above: small Blood, UA Negative Negative - 50 Asif/mcL [facility] Clarity, UA Clear [facility] Color, UA Yellow [facility] Glucose, UA Negative Negative - 2000(110) ++++ mg/dL [facility] Interpretation and review of laboratory results Abnormal [facility] Ketones, UA Positive Negative - 160(16) ++++ mg/dL [facility] Comment on above: 40mg/dL Leukocytes, UA Negative Negative - 500+++ Shivani/mcL [facility] Nitrite, UA Negative Negative - Positive [facility] pH, UA 6 5 - 9 [facility] Protein, UA Positive Negative - 2000(20) ++++ mg/dL [facility] Comment on above: 30mg/dL Spec Grav, UA 1.025 1 - 1.03 [facility] Urobilinogen, UA 1.0 0.2 - 12 mg/dL [facility] ALL CBC WITH AUTO DIFFon BASOPHILS ABSOLUTE AUTO 0 [facility] Basophils/100 WBC (Bld) 0.3 % 0.2 - 2.0 % [facility] Eosinophils/100 WBC (Bld) 1.6 % 0.9 - 7.0 % [facility] Erythrocyte distribution width (RBC) [Ratio] 12.8 % 11.0 - 15.0 % [facility] Hematocrit (Bld) [Volume fraction] 33.8 % Low 36.0 - 48.0 % [facility] Hemoglobin (Bld) [Mass/Vol] 11.4 g/dL Low 12.0 - 16.0 g/dL [facility] IMMATURE GRANULOCYTES ABS AUTO 0.05 High [facility] Immature granulocytes/100 WBC (Bld) 0.5 % 0.0 - 0.5 % [facility] Interpretation and review of laboratory results Abnormal [facility] LYMPHOCYTES ABSOLUTE AUTO 1.9 [facility] Lymphocytes/100 WBC (Bld) 18.6 % Low 20.5 - 60.0 % [facility] MCH (RBC) [Entitic mass] 29.8 pg 26.7 - 34.0 pg [facility] MCHC (RBC) [Mass/Vol] 33.7 g/dL 29.9 - 35.2 g/dL [facility] MCV (RBC) [Entitic vol] 88.5 fL 81.0 - 99.0 fL [facility] MONOCYTES ABSOLUTE AUTO 0.9 High [facility] Monocytes/100 WBC (Bld) 8.6 % 1.7 - 12.0 % [facility] NEUTROPHILS ABSOLUTE AUTO 7.3 High [facility] Neutrophils/100 WBC (Bld) 70.4 % 43.0 - 75.0 % [facility] Platelet mean volume (Bld) [Entitic vol] 8.9 fL Low 9.5 - 13.5 fL [facility] TBH EO # 0.2 [facility] TBH PLT [address] [facility] RBC 3.82 Low [facility] TB WBC 10.4 [facility] Urinalysis macro (dipstick) panel (U)on 10-01-2024 Bilirubin, UA Negative Negative - 4(70) +++ mg/dL [facility] Blood, UA Negative Negative - 50 Asif/mcL [facility] Clarity, UA Clear [facility] Color, UA Yellow [facility] Glucose, UA Negative Negative - 1999(110) ++++ mg/dL [facility] Interpretation and review of laboratory results Abnormal [facility] Ketones, UA Positive Negative - 160(16) ++++ mg/dL [facility] Leukocytes, UA Negative Negative - 500+++ Shivani/mcL [facility] Nitrite, UA Negative Negative - Positive [facility] pH, UA 6.5 5 - 9 [facility] Protein, UA Negative Negative - 1999(20) ++++ mg/dL [facility] Spec Grav, UA 1.025 1 - 1.03 [facility] Urobilinogen, UA 1.0 0.2 - 12 mg/dL [facility] AFP, SERUM, OPEN SPINA BIFID Aon 08-14-2024 AFP MOM 1.32 . [facility] AFP VALUE 43.5 ng/mL . [facility] COMMENT: Comment . [facility] Comment on above: Irena Jones , Ph.D., [facility] Director References: Available Upon Request. Multiples Of Median Cutoffs For AFP Elevations Vela 2.5 Black 2.8 IDD 2.0 Twins 4.5 Abbreviation Definitions IDD - Insulin Dep Diabetes OSBR - Open Spina Bifida Risk For further inquiries contact [facility] at [phone]. This test was developed and its performance characteristics determined by [facility]. It has not been cleared or approved by the Food and Drug Administration. Performed at: [facility] [address], [place], [place] [id number] Management Supervisor: Hellen Hinson [facility], Phone: [phone] GEST. AGE ON COLLECTION DATE 18.1 . weeks [facility] GESTAT. AGE BASED ON Ultrasound . [facility] Comment on above: 18.1 on 08/12/2024 Recalculations are not recommended when gestational dating by LMP and ultrasound are within 10 days. INSULIN DEP DIABETES No . [facility] INTERPRETATION Comment . [facility] Comment on above: Interpretation: Scre en Negative [...] Customer Services to discuss available options. The [employer] recommends amniocentesis be offered to women age 35 and older. [age] [facility] MULTIPLE GESTATION No . [facility] OSBR RISK 1 IN 4529 . [facility] RACE . [facility] RESULTS Report . [facility] TEST RESULTS: Negative . [facility] WEIGHT 239 . lbs [facility] N N ULTRASOUND [id number] 1 18 N 1 Y 239 N N N N N White/ [facility] Urinalysis macro (dipstick) panel (U)on 08-12-2024 Bilirubin, UA Negative Negative - 4(70) +++ mg/dL [facility] Blood, UA Negative Negative - 50 Asif/mcL [facility] Clarity, UA Clear [facility] Color, UA Yellow [facility] Glucose, UA Negative Negative - 1999(110) ++++ mg/dL [facility] Interpretation and review of laboratory results Abnormal [facility] Ketones, UA Positive Negative - 160(16) ++++ mg/dL [facility] Comment on above: trace Leukocytes, UA Negative Negative - 500+++ Shivani/mcL [facility] Nitrite, UA Negative Negative - Positive [facility] pH, UA 6 5 - 9 [facility] Protein, UA Negative Negative - 1999(20) ++++ mg/dL [facility] Spec Grav, UA 1.015 1 - 1.03 [facility] Urobilinogen, UA 0.2 0.2 - 12 mg/dL [facility] Urinalysis macro (dipstick) panel (U)on 07-16-2024 Bilirubin, UA Negative Negative - 4(70) +++ mg/dL [facility] Blood, UA Negative Negative - 50 Asif/mcL [facility] Clarity, UA Clear [facility] Color, UA Yellow [facility] Glucose, UA Negative Negative - 1999(110) ++++ mg/dL [facility] Interpretation and review of laboratory results Normal [facility] Ketones, UA Negative Negative - 160(16) ++++ mg/dL [facility] Leukocytes, UA Negative Negative - 500+++ Shivani/mcL [facility] Nitrite, UA Negative Negative - Positive [facility] pH, UA 5.5 5 - 9 [facility] Protein, UA Negative Negative - 1999(20) ++++ mg/dL [facility] Spec Grav, UA 1.03 1 - 1.03 [facility] Urobilinogen, UA 0.2 0.2 - 12 mg/dL [facility] BLOOD UREA NITROGENon 2023 Urea nitrogen [Mass/Vol] 9 mg/dL Normal 5-23 [facility] Comment on above: Performed By: #### C BCA, 3094-0, FORESTRY SUPERVISOR, LIVR, 5193-8 #### [facility] ([id number]) [address], [address] [place] [address] CBC AND AUTO DIFFon 07-10-20 ABSOLUTE BASOPHIL 0.0 X10E9/L Normal 0.0-0.2 [facility] Comment on above: Performed By: #### C BCA, 3094-0, FORESTRY SUPERVISOR, LIVR, 5193-8 #### [facility] ([id number]) [address], [address] [place] [address] ABSOLUTE NEUTROPHIL 5.1 X10E9/L Normal 1.5-6.6 [facility] Comment on above: Performed By: #### C BCA, 3094-0, FORESTRY SUPERVISOR, LIVR, 5192-8 #### [facility] ([id number]) [address], [facility] [address] [place] [address] Basophils/100 WBC (Bld) 0.6 % Normal [facility] Comment on above: Performed By: #### C BCA, 3094-0, FORESTRY SUPERVISOR, LIVR, 519-8 #### [facility] ([id number]) [address], [address] [place] [address] Eosinophils (Bld) [#/Vol] 0.1 10*3/uL Normal 0.0-0.4 [facility] Comment on above: Performed By: #### C BCA, 3094-0, FORESTRY SUPERVISOR, LIVR, 519-8 #### [facility] ([id number]) [address] [address] [place] [address] Eosinophils/100 WBC (Bld) 1.6 % Normal [facility] Comment on above: Performed By: #### C BCA, 3094-0, FORESTRY SUPERVISOR, LIVR, 519-8 #### [facility] ([id number]) [address] [address] [place] [address] Erythrocyte distribution width (RBC) [Ratio] 13.1 % Normal 11.5-15.0 [facility] Comment on above: Performed By: #### C BCA, 3094-0, FORESTRY SUPERVISOR, LIVR, 5193-8 #### [facility] ([id number]) [address], [address] [place] [address] Hematocrit (Bld) [Volume fraction] 39.1 % Normal 35-47 [facility] Comment on above: Performed By: #### C BCA, 3094-0, FORESTRY SUPERVISOR, LIVR, 8 #### [facility] ([id number]) [address] [address] [place] [address] Hemoglobin (Bld) [Mass/Vol] 13.4 g/dL Normal 11.7-15.5 [facility] Comment on above: Performed By: #### C BCA, 3094-0, FORESTRY SUPERVISOR, LIVR, 5192-8 #### [facility] ([id number]) [address] [address] [place] [address] Lymphocytes (Bld) [#/Vol] 1.3 10*3/uL Normal 1.0-3.5 [facility] Comment on above: Performed By: #### Joao BCA, 3094-0, FORESTRY SUPERVISOR, LIVR, 5192-8 #### [facility] ([id number]) [address] [address] [place] [address] Lymphocytes/100 WBC (Bld) 19.0 % Normal [facility] Comment on above: Performed By: #### Joao BCA, 3094-0, FORESTRY SUPERVISOR, LIVR, 5192-8 #### [facility] ([id number]) [address], [facility] [address] [place] [address] MCH (RBC) [Entitic mass] 30.6 pg Normal 27-34 [facility] Comment on above: Performed By: #### C BCA, 3094-0, FORESTRY SUPERVISOR, LIVR, 5192-8 #### [facility] ([id number]) [address] [address] [place] [address] MCHC (RBC) [Mass/Vol] 34.3 g/dL Normal 32-36 [facility] Comment on above: Performed By: #### C BCA, 3094-0, FORESTRY SUPERVISOR, LIVR, 5192-8 #### [facility] ([id number]) [address], [address] [place] [address] MCV (RBC) [Entitic vol] 89 fL Normal 80-100 [facility] Comment on above: Performed By: #### Joao BCA, 3094-0, FORESTRY SUPERVISOR, LIVR, 5192-8 #### [facility] ([id number]) [address], [address] [place] [address] Monocytes (Bld) [#/Vol] 0.5 10*3/uL Normal 0-0.9 [facility] Comment on above: Performed By: #### Joao BCA, 3094-0, FORESTRY SUPERVISOR, LIVR, 8 #### [facility] ([id number]) [address], [address] [place] [address] Monocytes/100 WBC (Bld) 6.7 % Normal [facility] Comment on above: Performed By: #### Joao BCA, 3094-0, FORESTRY SUPERVISOR, LIVR, 519-8 #### [facility] ([id number]) [address], [facility] [address] [place] [address] Neutrophils/100 WBC (Bld) 72.1 % Normal [facility] Comment on above: Performed By: #### Joao BCA, 3094-0, FORESTRY SUPERVISOR, LIVR, 5192-8 #### [facility] ([id number]) [address], [address] [place] [address] Platelet mean volume (Bld) [Entitic vol] 7.9 fL Normal 7-12 [facility] Comment on above: Performed By: #### Joao BCA, 3094-0, FORESTRY SUPERVISOR, LIVR, 519-8 #### [facility] ([id number]) [address], [address] [place] [address] Platelets (Bld) [#/Vol] 232 10*3/uL Normal 150-450 [facility] Comment on above: Performed By: #### C BCA, 3094-0, FORESTRY SUPERVISOR, LIVR, 5193-8 #### [facility] ([id number]) [address] [address] RBC COUNT 4.37 X10E12/L Normal 3.80-5.20 [facility] Comment on above: Performed By: #### C BCA, 3094-0, FORESTRY SUPERVISOR, LIVR, 5193-8 #### [facility] ([id number]) [address] [address] WBC (Bld) [#/Vol] 7.0 10*3/uL Normal 4.0-11.0 [facility] Comment on above: Performed By: #### C BCA, 3094-0, FORESTRY SUPERVISOR, LIVR, 5193-8 #### [facility] ([id number]) [address] [address] CREATININEon 07-10-2024 Creatinine [Mass/Vol] 0.54 mg/dL Normal 0.40-1.00 [facility] Comment on above: Result Comment: METH OD TRACEABLE TO IDMS STANDARD Performed By: #### C BCA, 3094-0, FORESTRY SUPERVISOR, LIVR, 5193-8 #### [facility] ([id number]) [address] [address] [place] [address] eGFR (CKD-EPI) NON-RACE DEPENDENT >90 Normal >59 [facility] Comment on above: Result Comment: Reported eGFR is based on the CKD-EPI 2020 equation that does not use a race coefficient. Performed By: #### C BCA, 3094-0, FORESTRY SUPERVISOR, LIVR, 5193-8 #### [facility] ([id number]) [address] [address] HBV surface Ab IA Qnon 07-10 Anti HBs quant. <8.00 Normal [facility] Comment on above: Result Comment: Vacc inated: >=12mIU/mL, Positive (Immune) Unvaccinated: <8mIU/mL, Negative (Not Immune) 8-11.99 mIU/mL: Indeterminate, (Considered Not Immune) Performed By: #### C BCA, 3094-0, FORESTRY SUPERVISOR, LIVR, 5192-8 #### [facility] ([id number]) [address], [address] [place] [address] LIVER PANELon 07-10-2024 Albumin [Mass/Vol] 3.8 g/dL Normal 3.2-5.3 [facility] Comment on above: Performed By: #### C BCA, 3094-0, FORESTRY SUPERVISOR, LIVR, 5192-8 #### [facility] ([id number]) [address], [address] [place] [address] ALP [Catalytic activity/Vol] 44 U/L Normal 39-130 [facility] Comment on above: Performed By: #### C BCA, 3094-0, FORESTRY SUPERVISOR, LIVR, 5192-8 #### [facility] ([id number]) [address], [address] [place] [address] ALT [Catalytic activity/Vol] 11 U/L Normal 0-31 [facility] Comment on above: Performed By: #### C BCA, 3094-0, FORESTRY SUPERVISOR, LIVR, 5192-8 #### [facility] ([id number]) [address], [address] [place] [address] AST [Catalytic activity/Vol] 16 U/L Normal 0-41 [facility] Comment on above: Performed By: #### C BCA, 3094-0, FORESTRY SUPERVISOR, LIVR, 5192-8 #### [facility] ([id number]) [address], [address] [place] [address] Bilirubin [Mass/Vol] 0.5 mg/dL Normal 0.3-1.2 [facility] Comment on above: Performed By: #### Joao BCA, 3094-0, FORESTRY SUPERVISOR, LIVR, 5192-8 #### [facility] ([id number]) [address], [address] [place] [address] Bilirubin.direct [Mass/Vol] 0.1 mg/dL Normal 0.0-0.4 [facility] Comment on above: Performed By: #### C BCA, 3094-0, FORESTRY SUPERVISOR, LIVR, 5193-8 #### [facility] ([id number]) [address], [address] [place] [address] Protein [Mass/Vol] 6.5 g/dL Normal 6.0-8.0 [facility] Comment on above: Performed By: #### C BCA, 3094-0, FORESTRY SUPERVISOR, LIVR, 5193-8 #### [facility] ([id number]) [address], [address] [place] [address] Unlisted Lab TestOrdered By: Jaci Atwood on 06-26-2024 [facility] TOTAL PROTEIN 24 HOUR UR INEon 06-21-2024 Protein (U) [Mass/Vol] 11.3 mg/dL [facility] - 11.9 mg/dL [facility] TOTAL PROTEIN 24 HOUR URINE 101.7 [facility] TOTAL VOLUME 24 HOUR URINE 900 mL/24hr [facility] Urinalysis macro (dipstick) panel (U)on 06-19-2024 Bilirubin, UA Negative Negative - 4(70) +++ mg/dL [facility] Blood, UA Negative Negative - 50 Asif/mcL [facility] Clarity, UA Clear [facility] Color, UA Yellow [facility] Glucose, UA Negative Negative - 1999(110) ++++ mg/dL [facility] Interpretation and review of laboratory results Normal [facility] Ketones, UA Negative Negative - 160(16) ++++ mg/dL [facility] Leukocytes, UA Negative Negative - 500+++ Shivani/mcL [facility] Nitrite, UA Negative Negative - Positive [facility] pH, UA 5.5 5 - 9 [facility] Protein, UA Negative Negative - 1999(20) ++++ mg/dL [facility] Spec Grav, UA 1.020 1 - 1.03 [facility] Urobilinogen, UA 1.0 0.2 - 12 mg/dL [facility] ALL CBC WITH AUTO DIFFon BASOPHILS ABSOLUTE AUTO 0.0 [facility] Basophils/100 WBC (Bld) 0.4 % 0.2 - 2.0 % [facility] Eosinophils/100 WBC (Bld) 1.3 % 0.9 - 7.0 % [facility] Erythrocyte distribution width (RBC) [Ratio] 12.5 % 11.0 - 15.0 % [facility] Hematocrit (Bld) [Volume fraction] 36.9 % 36.0 - 48.0 % [facility] Hemoglobin (Bld) [Mass/Vol] 12.4 g/dL 12.0 - 16.0 g/dL [facility] IMMATURE GRANULOCYTES ABS AUTO 0.02 [facility] Immature granulocytes/100 WBC (Bld) 0.3 % 0.0 - 0.5 % [facility] Interpretation and review of laboratory results Abnormal [facility] LYMPHOCYTES ABSOLUTE AUTO 1.2 [facility] Lymphocytes/100 WBC (Bld) 17.0 % Low 20.5 - 60.0 % [facility] MCH (RBC) [Entitic mass] 29.9 pg 26.7 - 34.0 pg [facility] MCHC (RBC) [Mass/Vol] 33.6 g/dL 29.9 - 35.2 g/dL [facility] MCV (RBC) [Entitic vol] 88.9 fL 81.0 - 99.0 fL [facility] MONOCYTES ABSOLUTE AUTO 0.4 [facility] Monocytes/100 WBC (Bld) 6.0 % 1.7 - 12.0 % [facility] NEUTROPHILS ABSOLUTE AUTO 5.3 [facility] Neutrophils/100 WBC (Bld) 75.0 % 43.0 - 75.0 % [facility] Platelet mean volume (Bld) [Entitic vol] 10.0 fL 9.5 - 13.5 fL [facility] TBH EO # 0.1 [facility]H PLT 173 [facility] TB RBC 4.15 Low [facility] TB WBC 7.1 [facility] XR knee LT 3V - NOT FOR ER U Yuridia 06-11-2024 XR knee LT 3V - NOT FOR ER USE [facility] [address] [place] [address] XRay Report Signed Patient: Lucila Jacques MR#: [id number] [birth year] : 1990 Acct:[id number] Age/Sex: 33 / F ADM Date: 06/11/24 Loc: [facility] Room: Type: [facility] Attending Dr: Santa Estrada II, MD [...] Vikki Rivers M.D.06/11/2024 2:26 PM Dictation Location: [place] [address] Transcribed By: [facility] 06/11/24 142 Dictated By: Vikki Rivers MD 06/11/241421 Signed By: 06/11/24 142 Normal [facility] HCG ( test) Ql (U)o [...] on 04-29-2024 Amphetamines Ql (U) Negative Negative [facility] Barbiturates [Presence] in U rine by Screen methodOrdered By: Yusef Curran on 04-29-2024 Barbiturates Screen Ql (U) Negative Negative [facility] Benzodiazepines Screen Ql (U )Ordered By: Yusef Curran on 04-29-2024 Benzodiazepines Ql (U) Negative Negative [facility] Benzoylecgonine [Presence] i n Urine by Screen methodOrdered By: Yusef Curran on 04-29-2024 Benzoylecgonine Screen Ql (U) Negative Negative [facility] Cannabinoids [Presence] in U rine by Screen methodOrdered By: Yusef Curran on 04-29-2024 Cannabinoids Screen Ql (U) Negative Negative [facility] Comment on above: These are unconfirme d results and should not be used for legal purposes. Drug Cut-Off Concentration: AMPH 1000 ng/mL SILVIA 200 ng/mL DARLYN 200 ng/mL COCM 300 ng/mL OP 300 ng/mL PCP 25 ng/mL THC 20 ng/mL Drug Screen,Urineon 04-29-20 Amphetamine Screen,Urine Negative Normal Negative [facility] Comment on above: Performed By: #### A 1C WT eA, ALB, [id number], HGB #### [address] #### NICOTINE #### [facility] , Barbiturate Screen,Urine Negative Normal Negative [facility] Comment on above: Performed By: #### A 1C WTH eA, ALB, [id number], HGB #### [place] [address] [place] #### NICOTINE #### [facility] , Benzodiazepines Screen,Urine Negative Normal Negative [facility] Comment on above: Performed By: #### A 1C WTH eA, ALB, [id number], HGB #### [address] #### NICOTINE #### [facility] , Cannabinoid Screen,Urine Negative Normal Negative [facility] Comment on above: Result Comment: Thes e are unconfirmed results and should not be used for legal purposes. Drug Cut-Off Concentration: AMPH 1000 ng/mL SILVIA 200 ng/mL DARLYN 200 ng/mL COCM 300 ng/mL OP 300 ng/mL PCP 25 ng/mL THC 20 ng/mL PERFORMED BY: [place] [address] PATHOLOGIST SENIOR ELECTRICAL ESTIMATOR GENO BENEDICT M.D. Performed By: #### A 1C WTH eA, ALB, [id number], HGB #### [address] #### NICOTINE #### [facility] , Cocaine Screen,Urine Negative Normal Negative [facility] Comment on above: Performed By: #### A 1C WTH eA, ALB, [id number], HGB #### [place] [address] [place] #### NICOTINE #### [facility] , Opiate Screen,Urine Negative Normal Negative [facility] Comment on above: Performed By: #### A 1C WTH eA, ALB, [id number], HGB #### [place] [address] [place] #### NICOTINE #### [facility] , Phencyclidine Screen,Urine Negative Normal Negative [facility] Comment on above: Performed By: #### A 1C WTH eA, ALB, [id number], HGB #### [address] #### NICOTINE #### [facility] , HCG ( test) IA.rapi d Ql (U)Ordered By: Yusef Curran on 04-29-2024 HCG ( test) Ql (U) Negative [facility] HCG,Urineon 04-29-2024 Beta HCG ( test) Ql (U) Negative Normal [facility] Comment on above: Result Comment: PERF ORMED BY: [place] [address] PATHOLOGIST SENIOR ELECTRICAL ESTIMATOR GENO BENEDICT M.D. Performed By: #### U HCG #### [address] [place] 04-29-2024 L Specimen: [id number] Received: 04/29/24 Status: MICHAEL Young Num: [id number] Spec Type: Surgical Subm Dr: Santa Estrada MD Tissues: A Joint/Knee (LT KNEE) Procedures: HE, Gross/Micro L4, Decalcification Age/ Patient Sex Location Account Attending Physician Lucila Jacques R 33/F [place] [id number] Santa Estrada MD SPEC NUM: [id number] RECD: 04/29/24 STATUS: MICHAEL YOUNG NUM: [id number] NIELS: 04/29/[address]: Santa Estrada MD ENTERED: 04/29/[address] [facility] [address]: SPEC TYPE: Surgical DEPT: S ORDERED: [...] examination, no sections are submitted. CPT Codes 44414 Specimen: [id number] Received: 04/29/24 Status: ANUPAMABrunilda Young Num: [id number] Spec Type: Surgical Subm Dr: Santa Estrada MD Tissues: A Joint/Knee (LT KNEE) Procedures: VIKASH, Gross/Micro L4, Decalcification Patient: Lucila Jacques [id number] (Continued) Specimen: [id number] Received: 04/29/24 (Continued) Signed (signature on file) Jamia Trevizo MD 05/07/24 2479 Specimen: [id number] Received: 04/29/24 Status: MICHAEL Young Num: [id number] Spec Type: Surgical Subm Dr: Santa Estrada MD Tissues: A Joint/Knee (LT KNEE) Procedures: VIKASH, Gross/Micro L4, Decalcification Patient: Lucila Jacques [id number] (Continued) Specimen: [id number] Received: 04/29/24 (Continued) BONE AND TISSUE Specimen: [id number] Received: 04/29/24 Status: MICHAEL Young Num: [id number] Spec Type: Surgical Subm Dr: Santa Estrada MD Tissues: A Joint/Knee (LT KNEE) Procedures: VIKASH, Gross/Micro L4, Decalcification Patient: Lucila Jacques [id number] (Continued) Signed (signature on file) Jamia Trevizo MD 05/07/241702 Normal [facility] Opiates [Presence] in Urine by Screen methodOrdered By: Yusef Curran on 04-29-2024 Opiates Screen Ql (U) Negative Negative [facility] Phencyclidine Screen Ql (U)O rdered By: Yusef Curran on 04-29-2024 Phencyclidine Ql (U) Negative Negative [facility] XR knee LT 2Von 04-29-2024 XR knee LT 2V [place] [address] XRay Report Signed Patient: Lucila Jacques MR#: [id number] 31 : 1990 Acct:[id number] Age/Sex: 33 / F ADM Date: 04/29/24 Loc: [place] Room: Type: [facility] Attending Dr: Santa Estrada II, MD Copies [...] Harmeet Lopez M.D.04/29/2024 2:44 PM Dictation Location: [place] [address] Transcribed By: [facility] 04/29/24 1444 Dictated By: Harmeet Lopez DO 04/29/24 1443 Signed By: 04/29/24 1444 Normal [facility] XR tibia fibula LT 2V*on XR tibia fibula LT 2V* [facility] [address] [place] [id number] XRay Report Signed Patient: Lucila Jacques MR#: [id number] 33 : 1990 Acct:[id number] Age/Sex: 33 / F ADM Date: 04/19/24 Loc: [facility] Room: Type: [facility] Attending Dr: Santa Estrada II, MD Copies to: Santa Estrada MD Ordering Provider: Santa Estrada MD Date of Service: 04/19/24 XR/XR tibia fibula LT 2V*: M17.12 - Unilateral primary osteoarthritis, left knee ([id number]) XR/XR femur LT 2V*: M17.12 - Unilateral [...] Harmeet Lopez M.D.04/19/2024 9:52 AM Dictation Location: [place] [address] Transcribed By: [facility] 04/19/2452 Dictated By: Harmeet Lopez DO 04/19/24 0950 Signed By: 04/19/24951 Normal [facility] Cytology Cervical or vaginal smear or scraping studyon 04-16-2024 [facility] Automated basophil %Ordered By: Santa Estraad on 04-15-2024 Basophils/100 WBC (Bld) 0.7 % . [facility] Comment on above: Performed By: #### B MP, CBC #### [place] [address] [place] #### NICOTINE, FRUC #### [facility] , Automated basophil countOrde red By: Santa Estrada on 04-15-2024 Basophils (Bld) [#/Vol] 0.0 10*3/uL 0.0-0.2 [facility] Comment on above: Result Comment: PERF ORMED BY: [place] [address] PATHOLOGIST SENIOR ELECTRICAL ESTIMATOR GENO BENEDICT M.D. Performed By: #### B MP, CBC #### [place] [address] [place] #### NICOTINE, FRUC #### [facility] , Automated blood monocyte cou ntOrdered By: Santa Estrada on 04-15-2024 Monocytes (Bld) [#/Vol] 0.3 10*3/uL 0.0-0.8 [facility] Comment on above: Performed By: #### B MP, CBC #### [facility] [address] [place] [address] [place] #### NICOTINE, FRUC #### [facility] , Automated eosinophil %Ordere d By: Santa Estrada on 04-15-2024 Eosinophils/100 WBC (Bld) 3.0 % . [facility] Comment on above: Performed By: #### B MP, CBC #### [place] [address] [place] #### NICOTINE, FRUC #### [facility] , Automated eosinophil countOr dered By: Santa Estrada on 04-15-2024 Eosinophils (Bld) [#/Vol] 0.1 10*3/uL 0.0-0.45 [facility] Comment on above: Performed By: #### B MP, CBC #### [address] #### NICOTINE, FRUC #### [facility] , Automated monocyte %Ordered By: Santa Estrada on 04-15-2024 Monocytes/100 WBC (Bld) 7.6 % . [facility] Comment on above: Performed By: #### B MP, CBC #### [facility] [address] [place] [address] [place] #### NICOTINE, FRUC #### [facility] , Automated neutrophil %Ordere d By: Santa Estrada on 04-15-2024 Neutrophils/100 WBC (Bld) 55.1 % . [facility] Comment on above: Performed By: #### B MP, CBC #### [place] [address] [place] #### NICOTINE, FRUC #### [facility] , Basic Metabolic Panelon 03-26 GFR/1.73 sq M.predicted MDRD (S/P/Bld) [Vol rate/Area] mL/min/{1.73_m2} Normal [facility] Comment on above: Performed By: #### A 1C WTH eA, ALB, [id number], HGB #### [address] #### NICOTINE #### [facility] , Bilirubin Test strip Ql (U)O rdered By: Santa Estrada on 04-15-2024 Bilirubin Ql (U) Negative Negative [facility] Calcium [Mass/volume] in Ser um or PlasmaOrdered By: Santa Estrada on 04-15-2024 Calcium [Mass/Vol] 9.0 mg/dL 8.6-10.3 [facility] Comment on above: Result Comment: PERF ORMED BY: [place] [address] PATHOLOGIST SENIOR ELECTRICAL ESTIMATOR GENO BENEDICT M.D. Performed By: #### A 1C WTH eA, ALB, [id number], HGB #### [address] #### NICOTINE #### [facility] , Carbon dioxide, total [Moles /volume] in Serum or PlasmaOrdered By: Santa Estrada on 04-15-2024 CO2 [Moles/Vol] 26.3 mmol/L 21.0-31.0 [facility] Comment on above: Performed By: #### A 1C WTH eA, ALB, [id number], HGB #### [address] #### NICOTINE #### [facility] , Chloride [Moles/volume] in S liam or PlasmaOrdered By: Santa Estrada on 04-15-2024 Chloride [Moles/Vol] 106 mmol/L 98-107 [facility] Comment on above: Performed By: #### A 1C WTH eA, ALB, [id number], HGB #### [place] [address] [place] #### NICOTINE #### [facility] , Color of Urine by AutoOrdere d By: Santa Estrada on 04-15-2024 Color (U) Yellow Yellow [facility] Comment on above: Order Comment: Name Collection Type:: Clean-Voided Midstream Performed By: #### U A #### [address] Complete Blood Count Auto Di ffon 04-15-2024 Mean Corpuscular HGB Conc 34.0 g/dL Normal 32.0-35.0 [facility] Comment on above: Performed By: #### B MP, CBC #### [facility] [address] [place] [address] [place] #### NICOTINE, FRUC #### [facility] , NRBC% 0.1 /100{WBC} Normal 0-0.5 [facility] Comment on above: Performed By: #### B MP, CBC #### [place] [address] [place] #### NICOTINE, FRUC #### [facility] , Cotinine [Mass/volume] in Se rum or PlasmaOrdered By: Santa Estrada on 04-15-2024 Cotinine [Mass/Vol] <1.0 ng/mL . [facility] Comment on above: This test was develo ped and its performance characteristicsdetermined by [employer]. It has not been cleared orapproved by the Food and Drug Administration.Cotinine levels greater than 20.0 are consistent with theuse of tobacco or tobacco cessation products.Performed at: [address] [id number] Director: Marcellus Dave MD, Phone: [phone] Creatinine [Mass/volume] in Serum or PlasmaOrdered By: Santa Estrada on 04-15-2024 Creatinine [Mass/Vol] 0.65 mg/dL 0.60-1.20 [facility] Comment on above: Performed By: #### A 1C WTH eA, ALB, [id number], HGB #### [place] [address] [place] #### NICOTINE #### [facility] , Erythrocyte distribution wid th [Ratio] by Automated countOrdered By: Santa Estrada on 04-15-2024 Erythrocyte distribution width (RBC) [Ratio] 13.2 % 11.9-15.3 [facility] Comment on above: Performed By: #### B MP, CBC #### [facility] [address] [place] [address] [place] #### NICOTINE, FRUC #### [facility] , Erythrocytes [#/volume] in B lood by Automated countOrdered By: Santa Estrada on 04-15-2024 RBC (Bld) [#/Vol] 4.52 10*6/uL 3.60-5.00 [facility] Comment on above: Performed By: #### B MP, CBC #### [facility] [address] [place] [address] [place] #### NICOTINE, FRUC #### [facility] , Fructosamineon 04-15-2024 Fructosamine 219 umol/L Normal 0-285 [facility] Comment on above: Result Comment: Publ ished reference interval for apparently healthy subjects between age 20 and 60 is 205 - 285 umol/L and in a poorly controlled diabetic population is 228 - 563 umol/L with a mean of 396 umol/L. Performed at: [place] [id number] Management Supervisor: Dario West PhD, Phone: [phone] Performed By: #### A 1C WTH eA, ALB, [id number], HGB #### [facility] [address] [place] [address] [place] #### NICOTINE #### [facility] , Fructosamine [Moles/volume] in Serum or PlasmaOrdered By: Santa Estrada on 04-15-2024 Fructosamine [Moles/Vol] 219 umol/L 0-285 [facility] Comment on above: Published reference interval for apparently healthysubjects between age 20 and 60 is 205 - 285 umol/L and in apoorly controlled diabetic population is 228 - 563 umol/Lwith a mean of 396 umol/L.Performed at: [facility] [id number] [place], [place] [id number] Director: Dario West PhD, Phone: [phone] Glucose [Mass/volume] in Ser um or PlasmaOrdered By: Santa Estrada on 04-15-2024 Glucose [Mass/Vol] 88 mg/dL 70-100 [facility] Comment on above: ADA recommended refe rence rangeRandom Glucose Reference Range is dependent on time and content of last meal. Glucose of more than 200 mg/dL in a nonstressed, ambulatory subject supports the diagnosis of Diabetes Mellitus. Result Comment: [employer] om Glucose Reference Range is dependent on time and content of last meal. Glucose of more than 200 mg/dL in a nonstressed, ambulatory subject supports the diagnosis of Diabetes Mellitus. ADA recommended reference range Performed By: #### A 1C WTH eA, ALB, [id number], HGB #### [address] #### NICOTINE #### [facility] , Hematocrit [Volume Fraction] of Blood by Automated countOrdered By: Santa Estrada on 04-15-2024 Hematocrit (Bld) [Volume fraction] 40.4 % 34.0-46.4 [facility] Comment on above: Performed By: #### B MP, CBC #### [place] [address] [place] #### NICOTINE, FRUC #### [facility] , Hemoglobin [Mass/volume] in BloodOrdered By: Santa Estrada on 04-15-2024 Hemoglobin (Bld) [Mass/Vol] 13.7 g/dL 11.8-15.4 [facility] Comment on above: Performed By: #### B MP, CBC #### [facility] [address] [place] [address] [place] #### NICOTINE, FRUC #### [facility] , Ketones Auto test strip (U) [Mass/Vol]Ordered By: Santa Estrada on 04-15-2024 Ketones (U) [Mass/Vol] Negative Negative [facility] Leukocytes [#/volume] correc perla for nucleated erythrocytes in Blood by Automated counOrdered By: Santa Estrada on 04-15-2024 WBC corrected for nucl RBC Auto (Bld) [#/Vol] 4.1 10*3/uL 3.8-11.6 [facility] Leukocytes [#/volume] in Blo od by Automated countOrdered By: Santa Estrada on 04-15-2024 WBC (Bld) [#/Vol] 4.1 10*3/uL 3.8-11.6 [facility] Comment on above: Performed By: #### B MP, CBC #### [place] [address] [place] #### NICOTINE, FRUC #### [facility] , Lymphocytes [#/volume] in Bl ood by Automated countOrdered By: Santa Estrada on 04-15-2024 Lymphocytes (Bld) [#/Vol] 1.4 10*3/uL 1.00-4.8 [facility] Comment on above: Performed By: #### B MP, CBC #### [place] [address] [place] #### NICOTINE, FRUC #### [facility] , Lymphocytes/100 leukocytes i n Blood by Automated countOrdered By: Santa Estrada on 04-15-2024 Lymphocytes/100 WBC (Bld) 33.6 % . [facility] Comment on above: Performed By: #### B MP, CBC #### [facility] [address] [place] [address] [place] #### NICOTINE, FRUC #### [facility] , MCH [Entitic mass] by Automa perla countOrdered By: Santa Estrada on 04-15-2024 MCH (RBC) [Entitic mass] 30.4 pg 24.7-34.3 [facility] Comment on above: Performed By: #### B MP, CBC #### [facility] [address] [place] [address] [place] #### NICOTINE, FRUC #### [facility] , MCHC Auto (RBC) [Mass/Vol]Or dered By: Santa Estrada on 04-15-2024 MCHC (RBC) [Mass/Vol] 34.0 g/dL 32.0-35.0 [facility] MCV [Entitic volume] by Auto mated countOrdered By: Santa Estrada on 04-15-2024 MCV (RBC) [Entitic vol] 89.4 fL 80-100 [facility] Comment on above: Performed By: #### B MP, CBC #### [facility] [address] [place] [address] [place] #### NICOTINE, FRUC #### [facility] , Neutrophils [#/volume] in Bl ood by Automated countOrdered By: Santa Estrada on 04-15-2024 Neutrophils (Bld) [#/Vol] 2.2 10*3/uL 1.8-7.7 [facility] Comment on above: Performed By: #### B MP, CBC #### [facility] [address] [place] [address] [place] #### NICOTINE, FRUC #### [facility] , Nicotine [Mass/volume] in Se rum or PlasmaOrdered By: Santa Estrada on 04-15-2024 Nicotine [Mass/Vol] <1.0 ng/mL . [facility] Comment on above: This test was develo ped and its performance characteristicsdetermined by [employer]. It has not been cleared orapproved by the Food and Drug Administration.Nicotine levels greater than 2.0 are consistent with theuse of tobacco or tobacco cessation products. Nicotine/Cotinine Bloodon Cotinine, Blood <1.0 Normal . [facility] Comment on above: Result Comment: This test was developed and its performance characteristics determined by [employer]. It has not been cleared or approved by the Food and Drug Administration. Cotinine levels greater than 20.0 are consistent with the use of tobacco or tobacco cessation products. Performed at: [address] [id number] Management Supervisor: Marcellus Dave MD, Phone: [phone] PERFORMED BY: [place] [address] PATHOLOGIST SENIOR ELECTRICAL ESTIMATOR GENO BENEDICT M.D. Performed By: #### A 1C WT eA, ALB, [id number], HGB #### [address] #### NICOTINE #### [facility] , Nicotine, Blood <1.0 Normal . [facility] Comment on above: Result Comment: This test was developed and its performance characteristics determined by [employer]. It has not been cleared or approved by the Food and Drug Administration. Nicotine levels greater than 2.0 are consistent with the use of tobacco or tobacco cessation products. Performed By: #### A 1C WTH eA, ALB, [id number], HGB #### [place] [address] [place] #### NICOTINE #### [facility] , Nitrite Test strip Ql (U)Ord ered By: Santa Estrada on 04-15-2024 Nitrite Ql (U) Negative Negative [facility] No Panel InformationOrdered By: Santa Estrada on 04-15-2024 Estimated GFR (CKD-EPI) > 60.0 mL/Min [facility] Creatinine Clearance (Chem N/A [facility] Nucleated erythrocytes [Pres ence] in Blood by Automated countOrdered By: Santa Estrada on 04-15-2024 Nucleated RBC Auto Ql (Bld) 0.1 /100{WBC} 0-0.5 [facility] PST Type and Screenon 2023 ABO and Rh group Nom (Bld) Blood group O Rh(D) positive Normal [facility] Comment on above: Order Comment: Date of Surgery: [id number] Result Comment: PERF ORMED BY: [place] [address] PATHOLOGIST SENIOR ELECTRICAL ESTIMATOR GENO BENEDICT M.D. Platelet mean volume [Entiti c volume] in Blood by Automated countOrdered By: Santa Estrada on 04-15-2024 Platelet mean volume (Bld) [Entitic vol] 7.3 fL 6.3-10.7 [facility] Comment on above: Performed By: #### B MP, CBC #### [place] [address] [place] #### NICOTINE, FRUC #### [facility] , Platelets [#/volume] in Bloo d by Automated countOrdered By: Santa Estrada on 04-15-2024 Platelets (Bld) [#/Vol] 230 10*3/uL 150-450 [facility] Comment on above: Performed By: #### B MP, CBC #### [place] [address] [place] #### NICOTINE, FRUC #### [facility] , Potassium [Moles/volume] in Serum or PlasmaOrdered By: Santa Estrada on 04-15-2024 Potassium [Moles/Vol] 4.0 mmol/L 3.5-5.1 [facility] Comment on above: Performed By: #### A 1C WTH eA, ALB, [id number], HGB #### [place] [address] [place] #### NICOTINE #### [facility] , Protein Auto test strip (U) [Mass/Vol]Ordered By: Santa Estrada on 04-15-2024 Protein (U) [Mass/Vol] Negative Negative [facility] Serum or plasma anion gap de terminationOrdered By: Santa Estrada on 04-15-2024 Anion gap [Moles/Vol] 6.7 mmol/L 6.0-15.0 [facility] Comment on above: Performed By: #### A 1C WTH eA, ALB, [id number], HGB #### [place] [address] [place] #### NICOTINE #### [facility] , Sodium [Moles/volume] in Ser um or PlasmaOrdered By: Santa Estrada on 04-15-2024 Sodium [Moles/Vol] 135 mmol/L Low 136-145 [facility] Comment on above: Performed By: #### A 1C WTH eA, ALB, [id number], HGB #### [address] #### NICOTINE #### [facility] , Specific gravity Auto test s trip (U) [Rel density]Ordered By: Santa Estrada on 04-15-2024 Specific gravity (U) [Rel density] 1.009 1.001-1.03 0 [facility] Urea nitrogen [Mass/volume] in Serum or PlasmaOrdered By: Santa Estrada on 04-15-2024 Urea nitrogen [Mass/Vol] 10 mg/dL 04-18 [facility] Comment on above: Performed By: #### A 1C WTH eA, ALB, [id number], HGB #### [address] #### NICOTINE #### [facility] , Urinalysison 04-15-2024 Appearance (U) Clear Normal Clear [facility] Comment on above: Order Comment: Name Collection Type:: Clean-Voided Midstream Performed By: #### U A #### [address] Bilirubin,Urine Negative Normal Negative [facility] Comment on above: Order Comment: Name Collection Type:: Clean-Voided Midstream Performed By: #### U A #### [address] Glucose Ql (U) Normal Normal Normal [facility] Comment on above: Order Comment: Name Collection Type:: Clean-Voided Midstream Performed By: #### U A #### [address] Ketones Ql (U) Negative Normal Negative [facility] Comment on above: Order Comment: Name Collection Type:: Clean-Voided Midstream Performed By: #### U A #### [address] Leukocyte esterase Test strip Ql (U) Negative Normal Negative [facility] Comment on above: Order Comment: Name Collection Type:: Clean-Voided Midstream Performed By: #### U A #### [address] Nitrite,Urine Negative Normal Negative [facility] Comment on above: Order Comment: Name Collection Type:: Clean-Voided Midstream Performed By: #### U A #### [address] Occult Blood,Urine Negative Normal Negative [facility] Comment on above: Order Comment: Name Collection Type:: Clean-Voided Midstream Result Comment: PERF ORMED BY: [place] [address] PATHOLOGIST SENIOR ELECTRICAL ESTIMATOR GENO BENEDICT M.D. Performed By: #### U A #### [address] Protein,Urine Negative Normal Negative [facility] Comment on above: Order Comment: Name Collection Type:: Clean-Voided Midstream Performed By: #### U A #### [address] Specificy [place],Urine 1.009 Normal 1.001-1.03 0 [facility] Comment on above: Order Comment: Name Collection Type:: Clean-Voided Midstream Performed By: #### U A #### [address] Urobilinogen,Urine Normal Normal Normal [facility] Comment on above: Order Comment: Name Collection Type:: Clean-Voided Midstream Performed By: #### U A #### [address] Urine clarity by refractomet ry automatedOrdered By: Santa Estrada on 04-15-2024 Clarity Refractometry automated (U) Clear Clear [facility] Urine glucose measurement by automated test strip (mass/volume)Ordered By: Santa Estrada on 04-15-2024 Glucose Auto test strip (U) [Mass/Vol] Normal mg/dL Normal [facility] Urine hemoglobin detection b y automated test stripOrdered By: Santa Estrada on 04-15-2024 Hemoglobin Auto test strip Ql (U) Negative Negative [facility] Urine leukocyte esterase det ection by automated test stripOrdered By: Santa Estrada on 04-15-2024 Leukocyte esterase Auto test strip Ql (U) Negative Negative [facility] Urine pH measurement by auto mated test stripOrdered By: Santa Estrada on 04-15-2024 pH (U) 8.0 [pH] 5.0-9.0 [facility] Comment on above: Order Comment: Name Collection Type:: Clean-Voided Midstream Performed By: #### U A #### [facility] [address] Urobilinogen Auto test strip (U) [Mass/Vol]Ordered By: Santa Estrada on 04-15-2024 Urobilinogen (U) [Mass/Vol] Normal mg/dL Normal [facility] CBC with Diffon 03-14-2024 Abs. Basophil 0.06 k/uL Normal 0.00-0.20 [facility] Comment on above: Performed By: #### C DP, VD25, FEBC, AHCV, GLYHGB, HIVCMB, TSHX, FERI, LIPRF, B12, CP #### [facility] [address] [place], [place] [id number] Management Supervisor: Isreal Astorga MD Abs.Imm.Granulocyte <0.03 Normal 0.00-0.30 [facility] Comment on above: Performed By: #### C DP, VD25, FEBC, AHCV, GLYHGB, HIVCMB, TSHX, FERI, LIPRF, B12, CP #### [facility] [address] [place] [address] Management Supervisor: Isreal Astorga MD Abs.Neutrophil (Seg) 2.66 k/uL Normal 1.50-8.10 [facility] Comment on above: Performed By: #### C DP, VD25, FEBC, AHCV, GLYHGB, HIVCMB, TSHX, FERI, LIPRF, B12, CP #### [address] [id number] Management Supervisor: Isreal Astorga MD Basophils/100 WBC (Bld) 1 % Normal 0-2 [facility] Comment on above: Performed By: #### C DP, VD25, FEBC, AHCV, GLYHGB, HIVCMB, TSHX, FERI, LIPRF, B12, CP #### [place] [id number] Management Supervisor: Isreal Astorga MD Eosinophils (Bld) [#/Vol] 0.28 10*3/uL Normal 0.00-0.44 [facility] Comment on above: Performed By: #### C DP, VD25, FEBC, AHCV, GLYHGB, HIVCMB, TSHX, FERI, LIPRF, B12, CP #### [place] [address] Management Supervisor: Isreal Astorga MD Eosinophils/100 WBC (Bld) 5 % High 1-4 [facility] Comment on above: Performed By: #### C DP, VD25, FEBC, AHCV, GLYHGB, HIVCMB, TSHX, FERI, LIPRF, B12, CP #### [place] [address] Management Supervisor: Isreal Astorga MD Erythrocyte distribution width (RBC) [Ratio] 12.6 % Normal 11.8-14.4 [facility] Comment on above: Performed By: #### C DP, VD25, FEBC, AHCV, GLYHGB, HIVCMB, TSHX, FERI, LIPRF, B12, CP #### [place] [id number] Management Supervisor: Isreal Astorga MD Hematocrit (Bld) [Volume fraction] 38.8 % Normal 36.3-47.1 [facility] Comment on above: Performed By: #### C DP, VD25, FEBC, AHCV, GLYHGB, HIVCMB, TSHX, FERI, LIPRF, B12, CP #### [address] [address] Management Supervisor: Isreal Astorga MD Hemoglobin (Bld) [Mass/Vol] 12.9 g/dL Normal 11.9-15.1 [facility] Comment on above: Performed By: #### C DP, VD25, FEBC, AHCV, GLYHGB, HIVCMB, TSHX, FERI, LIPRF, B12, CP #### [address] [address] Management Supervisor: Isreal Astorga MD Immature granulocytes/100 WBC (Bld) 0 % Normal 0 [facility] Comment on above: Performed By: #### C DP, VD25, FEBC, AHCV, GLYHGB, HIVCMB, TSHX, FERI, LIPRF, B12, CP #### [address] [address] Management Supervisor: Isreal Astorga MD Lymphocytes (Bld) [#/Vol] 1.69 10*3/uL Normal 1.10-3.70 [facility] Comment on above: Performed By: #### C DP, VD25, FEBC, AHCV, GLYHGB, HIVCMB, TSHX, FERI, LIPRF, B12, CP #### [address] [address] Management Supervisor: Isreal Astorga MD Lymphocytes/100 WBC (Bld) 33 % Normal 24-43 [facility] Comment on above: Performed By: #### C DP, VD25, FEBC, AHCV, GLYHGB, HIVCMB, TSHX, FERI, LIPRF, B12, CP #### [address] [address] Management Supervisor: Isreal Astorga MD MCH (RBC) [Entitic mass] 29.9 pg Normal 25.2-33.5 [facility] Comment on above: Performed By: #### C DP, VD25, FEBC, AHCV, GLYHGB, HIVCMB, TSHX, FERI, LIPRF, B12, CP #### [address] [address] Management Supervisor: Isreal Astorga MD MCHC (RBC) [Mass/Vol] 33.2 g/dL Normal 28.4-34.8 [facility] Comment on above: Performed By: #### C DP, VD25, FEBC, AHCV, GLYHGB, HIVCMB, TSHX, FERI, LIPRF, B12, CP #### [place] [address] Management Supervisor: Isreal Astorga MD MCV (RBC) [Entitic vol] 89.8 fL Normal 82.6-102.9 [facility] Comment on above: Performed By: #### C DP, VD25, FEBC, AHCV, GLYHGB, HIVCMB, TSHX, FERI, LIPRF, B12, CP #### [place] [address] Management Supervisor: Isreal Astorga MD Monocytes (Bld) [#/Vol] 0.47 10*3/uL Normal 0.10-1.20 [facility] Comment on above: Performed By: #### C DP, VD25, FEBC, AHCV, GLYHGB, HIVCMB, TSHX, FERI, LIPRF, B12, CP #### [place] [address] Management Supervisor: Isreal Astorga MD Monocytes/100 WBC (Bld) 9 % Normal 3-12 [facility] Comment on above: Performed By: #### C DP, VD25, FEBC, AHCV, GLYHGB, HIVCMB, TSHX, FERI, LIPRF, B12, CP #### [address] [address] Management Supervisor: Isreal Astorga MD Neutrophil (Seg) 52 % Normal 36-65 [facility] Comment on above: Performed By: #### C DP, VD25, FEBC, AHCV, GLYHGB, HIVCMB, TSHX, FERI, LIPRF, B12, CP #### [address] [address] Management Supervisor: Isreal Astorga MD NRBC Automated 0.0 per 100 WBC Normal 0.0 [facility] Comment on above: Performed By: #### C DP, VD25, FEBC, AHCV, GLYHGB, HIVCMB, TSHX, FERI, LIPRF, B12, CP #### [address] [address] Management Supervisor: Isreal Astorga MD Platelet mean volume (Bld) [Entitic vol] 9.7 fL Normal 8.1-13.5 [facility] Comment on above: Performed By: #### C DP, VD25, FEBC, AHCV, GLYHGB, HIVCMB, TSHX, FERI, LIPRF, B12, CP #### [address] [address] Management Supervisor: Isreal Astorga MD Platelets (Bld) [#/Vol] 256 10*3/uL Normal 138-453 [facility] Comment on above: Performed By: #### C DP, VD25, FEBC, AHCV, GLYHGB, HIVCMB, TSHX, FERI, LIPRF, B12, CP #### [address] [address] Management Supervisor: Isreal Astorga MD RBC (Bld) [#/Vol] 4.32 10*6/uL Normal 3.95-5.11 [facility] Comment on above: Performed By: #### C DP, VD25, FEBC, AHCV, GLYHGB, HIVCMB, TSHX, FERI, LIPRF, B12, CP #### [address] [phone] Management Supervisor: Isreal Astorga MD WBC (Bld) [#/Vol] 5.2 10*3/uL Normal 3.5-11.3 [facility] Comment on above: Performed By: #### C DP, VD25, FEBC, AHCV, GLYHGB, HIVCMB, TSHX, FERI, LIPRF, B12, CP #### [address] [address] Management Supervisor: Isreal Astorga MD Comp Metabolic Profon 2023 Albumin [Mass/Vol] 4.2 g/dL Normal 3.5-5.2 [facility] Comment on above: Performed By: #### C DP, VD25, FEBC, AHCV, GLYHGB, HIVCMB, TSHX, FERI, LIPRF, B12, CP #### [address] [address] Management Supervisor: Isreal Astorga MD Albumin/Glob Ratio 2.0 Normal 1.0-2.5 [facility] Comment on above: Performed By: #### C DP, VD25, FEBC, AHCV, GLYHGB, HIVCMB, TSHX, FERI, LIPRF, B12, CP #### [address] [id number] Management Supervisor: Isreal Astorga MD Alkaline Phos 72 U/L Normal 35-104 [facility] Comment on above: Performed By: #### C DP, VD25, FEBC, AHCV, GLYHGB, HIVCMB, TSHX, FERI, LIPRF, B12, CP #### [address] [phone] Management Supervisor: Isreal Astorga MD ALT [Catalytic activity/Vol] 21 U/L Normal 10-35 [facility] Comment on above: Performed By: #### C DP, VD25, FEBC, AHCV, GLYHGB, HIVCMB, TSHX, FERI, LIPRF, B12, CP #### [address] [id number] Management Supervisor: Isreal Astorga MD Anion gap [Moles/Vol] 8 mmol/L Low 9-16 [facility] Comment on above: Performed By: #### C DP, VD25, FEBC, AHCV, GLYHGB, HIVCMB, TSHX, FERI, LIPRF, B12, CP #### [address] [id number] Management Supervisor: Isreal Astorga MD AST [Catalytic activity/Vol] 23 U/L Normal -35 [facility] Comment on above: Performed By: #### C DP, VD25, FEBC, AHCV, GLYHGB, HIVCMB, TSHX, FERI, LIPRF, B12, CP #### [address] [address] Management Supervisor: Isreal Astorga MD Bilirubin [Mass/Vol] 0.4 mg/dL Normal 0.00-1.20 [facility] Comment on above: Performed By: #### C DP, VD25, FEBC, AHCV, GLYHGB, HIVCMB, TSHX, FERI, LIPRF, B12, CP #### [address] [phone] Management Supervisor: Isreal Astorga MD Calcium [Mass/Vol] 8.8 mg/dL Normal 8.6-10.4 [facility] Comment on above: Performed By: #### C DP, VD25, FEBC, AHCV, GLYHGB, HIVCMB, TSHX, FERI, LIPRF, B12, CP #### [address] [phone] Management Supervisor: Isreal Astorga MD Chloride [Moles/Vol] 106 mmol/L Normal 98-107 [facility] Comment on above: Performed By: #### C DP, VD25, FEBC, AHCV, GLYHGB, HIVCMB, TSHX, FERI, LIPRF, B12, CP #### [address] [phone] Management Supervisor: Isreal Astorga MD CO2 [Moles/Vol] 25 mmol/L Normal 20-31 [facility] Comment on above: Performed By: #### C DP, VD25, FEBC, AHCV, GLYHGB, HIVCMB, TSHX, FERI, LIPRF, B12, CP #### [address] [phone] Management Supervisor: Isreal Astorga MD Creatinine [Mass/Vol] 0.7 mg/dL Normal 0.50-0.90 [facility] Comment on above: Performed By: #### C DP, VD25, FEBC, AHCV, GLYHGB, HIVCMB, TSHX, FERI, LIPRF, B12, CP #### [address] [phone] Management Supervisor: Isreal Astorga MD GFR/1.73 sq M.predicted among non-blacks MDRD (S/P/Bld) [Vol rate/Area] mL/min/{1.73_m2} Normal >60 [facility] Comment on above: Result Comment: These results [...] HIVCMB, TSHX, FERI, LIPRF, B12, CP #### [address] [phone] Management Supervisor: Isreal Astorga MD Glucose [Mass/Vol] 94 mg/dL Normal 74-99 [facility] Comment on above: Performed By: #### C DP, VD25, FEBC, AHCV, GLYHGB, HIVCMB, TSHX, FERI, LIPRF, B12, CP #### [address] [phone] Management Supervisor: Isreal Astorga MD Potassium [Moles/Vol] 3.8 mmol/L Normal 3.7-5.3 [facility] Comment on above: Performed By: #### C DP, VD25, FEBC, AHCV, GLYHGB, HIVCMB, TSHX, FERI, LIPRF, B12, CP #### [address] [phone] Management Supervisor: Isreal Astorga MD Protein [Mass/Vol] 6.7 g/dL Normal 6.6-8.7 [facility] Comment on above: Performed By: #### C DP, VD25, FEBC, AHCV, GLYHGB, HIVCMB, TSHX, FERI, LIPRF, B12, CP #### [address] [id number] Management Supervisor: Isreal Astorga MD Sodium [Moles/Vol] 139 mmol/L Normal 136-145 [facility] Comment on above: Performed By: #### C DP, VD25, FEBC, AHCV, GLYHGB, HIVCMB, TSHX, FERI, LIPRF, B12, CP #### [address] [address] Management Supervisor: Isreal Astorga MD Urea nitrogen [Mass/Vol] 12 mg/dL Normal 6-20 [facility] Comment on above: Performed By: #### C DP, VD25, FEBC, AHCV, GLYHGB, HIVCMB, TSHX, FERI, LIPRF, B12, CP #### [address] [phone] Management Supervisor: Isreal Astorga MD Ferritinon 03-14-2024 Ferritin [Mass/Vol] 133 ng/mL Normal 13-150 [facility] Comment on above: Result Comment: FERRITIN Reference Ranges: Adult Males 20 - 60 years: 30 - 400 ng/mL Adult females 17 - 60 years: 13 - 150 ng/mL Adults greater than 60 years: no established reference range Pediatrics: no established reference range Performed By: #### C DP, VD25, FEBC, AHCV, GLYHGB, HIVCMB, TSHX, FERI, LIPRF, B12, CP #### [address] [phone] Management Supervisor: Isreal Astorga MD HIV Ag/Abon 03-14-2024 HIV Ag/Ab Non-Reactive Normal NR [facility] Comment on above: Result Comment: No l aboratory evidence of HIV infection. If acute HIV infection is suspected, consider testing for HIV-1 RNA. Performed By: #### C DP, VD25, FEBC, AHCV, GLYHGB, HIVCMB, TSHX, FERI, LIPRF, B12, CP #### [address] [phone] Management Supervisor: Isreal Astorga MD Hemoglobin A1Con 03-14-2024 Glucose [Mass/Vol] 94 mg/dL Normal [facility] Comment on above: Result Comment: The ADA and AACC recommend providing the estimated average glucose result to permit better patient understanding of their HBA1c result. Performed By: #### C DP, VD25, FEBC, AHCV, GLYHGB, HIVCMB, TSHX, FERI, LIPRF, B12, CP #### [address] [phone] Management Supervisor: Isreal Astorga MD HbA1c (Bld) [Mass fraction] 4.9 % Normal 4.0-6.0 [facility] Comment on above: Performed By: #### C DP, VD25, FEBC, AHCV, GLYHGB, HIVCMB, TSHX, FERI, LIPRF, B12, CP #### [facility] [address] [place] [phone] Management Supervisor: Isreal Astorga MD Hep C Abon 03-14-2024 Hep C Ab Non-Reactive Normal NR [facility] Comment on above: Result Comment: The hepatitis [...] HIVCMB, TSHX, FERI, LIPRF, B12, CP #### [facility] [address] [place] [phone] Management Supervisor: Isreal Astorga MD Iron Binding Cap.on 03-14-20 24 % Fe Saturation 44 % Normal 20-55 [facility] Comment on above: Performed By: #### C DP, VD25, FEBC, AHCV, GLYHGB, HIVCMB, TSHX, FERI, LIPRF, B12, CP #### [facility] [address] [place] [phone] Management Supervisor: Isreal Astorga MD Iron [Mass/Vol] 107 ug/dL Normal 37-145 [facility] Comment on above: Performed By: #### C DP, VD25, FEBC, AHCV, GLYHGB, HIVCMB, TSHX, FERI, LIPRF, B12, CP #### [facility] [address] [place] [address] [phone] Management Supervisor: Isreal Astorga MD Total Fe Binding Cap 243 ug/dL Low 250-450 [facility] Comment on above: Performed By: #### C DP, VD25, FEBC, AHCV, GLYHGB, HIVCMB, TSHX, FERI, LIPRF, B12, CP #### [address] [phone] Management Supervisor: Isreal Astorga MD Unbound Fe Bind Cap 136 ug/dL Normal 112-347 [facility] Comment on above: Performed By: #### C DP, VD25, FEBC, AHCV, GLYHGB, HIVCMB, TSHX, FERI, LIPRF, B12, CP #### [address] [phone] Management Supervisor: Isreal Astorga MD Lipid Prof, Fastingon 2023 Cholesterol [Mass/Vol] 174 mg/dL Normal 0-199 [facility] Comment on above: Result Comment: Cholesterol Guidelines: <200 Desirable 200-240 Borderline >240 Undesirable Performed By: #### C DP, VD25, FEBC, AHCV, GLYHGB, HIVCMB, TSHX, FERI, LIPRF, B12, CP #### [address] [phone] Management Supervisor: Isreal Astorga MD Cholesterol in HDL [Mass/Vol] 57 mg/dL Normal >40 [facility] Comment on above: Result Comment: HDL Guidelines: <40 Undesirable 40-59 Borderline >59 Desirable Performed By: #### C DP, VD25, FEBC, AHCV, GLYHGB, HIVCMB, TSHX, FERI, LIPRF, B12, CP #### [address] [phone] Management Supervisor: Isreal Astorga MD Cholesterol in LDL [Mass/Vol] 96 mg/dL Normal 0-100 [facility] Comment on above: Result Comment: LDL Guidelines: <100 Desirable 100-129 Near to/above Desirable 130-159 Borderline >159 Undesirable Direct (measured) LDL and calculated LDL are not interchangeable tests. Performed By: #### C DP, VD25, FEBC, AHCV, GLYHGB, HIVCMB, TSHX, FERI, LIPRF, B12, CP #### [facility] [address] [place] [address] [phone] Management Supervisor: Isreal Astorga MD Cholesterol in VLDL [Mass/Vol] 22 mg/dL Normal [facility] Comment on above: Performed By: #### C DP, VD25, FEBC, AHCV, GLYHGB, HIVCMB, TSHX, FERI, LIPRF, B12, CP #### [address] [phone] Management Supervisor: Isreal Astorga MD Cholesterol.total/Chol esterol in HDL [Mass ratio] 3.0 {ratio} Normal [facility] Comment on above: Performed By: #### C DP, VD25, FEBC, AHCV, GLYHGB, HIVCMB, TSHX, FERI, LIPRF, B12, CP #### [address] [phone] Management Supervisor: Isreal Astorga MD Triglyceride,Fasting 108 mg/dL Normal 0-149 [facility] Comment on above: Result Comment: Triglyceride Guidelines: <150 Desirable 150-199 Borderline 200-499 High >499 Very high Based on AHA Guidelines for fasting triglyceride, June 2012. Performed By: #### C DP, VD25, FEBC, AHCV, GLYHGB, HIVCMB, TSHX, FERI, LIPRF, B12, CP #### [facility] [address] [place] [address] [phone] Management Supervisor: Isreal Astorga MD TSH w/reflex to FT4on 2023 Thyroid Stim. Horm. 2.37 uIU/mL Normal 0.27-4.20 [facility] Comment on above: Performed By: #### C DP, VD25, FEBC, AHCV, GLYHGB, HIVCMB, TSHX, FERI, LIPRF, B12, CP #### [facility] [address] [place] [address] [phone] Management Supervisor: Isreal Astorga MD Vitamin B12on 03-14-2024 Cobalamin (Vitamin B12) [Mass/Vol] 695 pg/mL Normal 232-1245 [facility] Comment on above: Performed By: #### C DP, VD25, FEBC, AHCV, GLYHGB, HIVCMB, TSHX, FERI, LIPRF, B12, CP #### [facility] [address] [place] [address] [phone] Management Supervisor: Isreal Astorga MD Vitamin D 25 OHon 03-14-2024 Vitamin D 25 OH 17.4 ng/mL Low 30.0-100.0 [facility] Comment on above: Result Comment: Reference Range: Vitamin D status Range Deficiency <20 ng/mL Mild Deficiency 20-30 ng/mL Sufficiency 30-100 ng/mL Toxicity >100 ng/mL Performed By: #### C DP, VD25, FEBC, AHCV, GLYHGB, HIVCMB, TSHX, FERI, LIPRF, B12, CP #### [facility] [address] [place] [address] [phone] Management Supervisor: Isreal Astorga MD Patient Handouton 03-13-2024 Patient Handout Custom [facility] [address], [address], [place] Date: 03/13/2024 RE: Lucila Jacques To whom it may concern, Lucila has been under my professional care due to a surgical procedure performed on 02/27/2024. She may return to work with no restrictions on 03/20/2024. Thank you, Peter Booth M.D. [facility] Release of Informationon Release of Information [id number] [facility] A1C with Estimated Average G luon 03-12-2024 Glucose [Mass/Vol] 105 mg/dL Normal [facility] Comment on above: Result Comment: PERF ORMED BY: [place] [address] PATHOLOGIST SENIOR ELECTRICAL ESTIMATOR GENO BENEDICT M.D. Performed By: #### A 1C WTH eA, ALB, [id number], HGB #### [address] #### NICOTINE #### [facility] , Albumin Levelon 03-12-2024 Albumin [Mass/Vol] 4.0 g/dL Normal 3.5-5.7 [facility] Comment on above: Performed By: #### A 1C WTH eA, ALB, [id number], HGB #### [facility] [address] [place] [address] #### NICOTINE #### [facility] , Albumin [Mass/volume] in Ser um or Plasma by Bromocresol green (BCG) dye binding methoOrdered By: Santa Estrada on 03-12-2024 Albumin BCG dye [Mass/Vol] 4.0 g/dL 3.5-5.7 [facility] Cotinine [Mass/volume] in Se rum or PlasmaOrdered By: Santa Estrada on 03-12-2024 Cotinine [Mass/Vol] 3.7 ng/mL . [facility] Comment on above: This test was develo ped and its performance characteristicsdetermined by [facility]. It has not been cleared orapproved by the Food and Drug Administration.Cotinine levels greater than 20.0 are consistent with theuse of tobacco or tobacco cessation products.Performed at: [address] [id number] Director: Marcellus Dave MD, Phone: [phone] Glucose mean value [Mass/vol ume] in Blood Estimated from glycated hemoglobinOrdered By: Santa Estrada on 03-12-2024 Average glucose Estimated from glycated hemoglobin (Bld) [Mass/Vol] 105 mg/dL [facility] Hemoglobin A1c percentageOrd ered By: Santa Estrada on 03-12-2024 HbA1c (Bld) [Mass fraction] 5.3 % Normal 4.3-5.6 [facility] Comment on above: Increased risk for d iabetes: 5.7 - 6.4diabetes: >6.4glycemic control for adults with diabetes: <7.0 Result Comment: Incr eased risk for diabetes: 5.7 - 6.4 diabetes: >6.4 glycemic control for adults with diabetes: <7.0 Performed By: #### A 1C WTH eA, ALB, [id number], HGB #### [address] #### NICOTINE #### [facility] , Hemoglobin [Mass/volume] in BloodOrdered By: Santa Estrada on 03-12-2024 Hemoglobin (Bld) [Mass/Vol] 12.8 g/dL Normal 11.8-15.4 [facility] Comment on above: Result Comment: PERF ORMED BY: [place] [address] PATHOLOGIST SENIOR ELECTRICAL ESTIMATOR GENO BENEDICT M.D. Performed By: #### A 1C WTH eA, ALB, [id number], HGB #### [address] #### NICOTINE #### [facility] , MRSA Cultureon 03-12-2024 MRSA Culture No MRSA Isolated 2 D ays PERFORMED BY: [place] [address] PATHOLOGIST SENIOR ELECTRICAL ESTIMATOR GEON BENEDICT M.D. Normal [facility] Comment on above: Performed By: #### C UMRSA #### [address] Nicotine [Mass/volume] in Se rum or PlasmaOrdered By: Santa Estrada on 03-12-2024 Nicotine [Mass/Vol] <1.0 ng/mL . [facility] Comment on above: This test was develo ped and its performance characteristicsdetermined by [facility]. It has not been cleared orapproved by the Food and Drug Administration.Nicotine levels greater than 2.0 are consistent with theuse of tobacco or tobacco cessation products. Nicotine/Cotinine Bloodon Cotinine, Blood 3.7 ng/mL Normal . [facility] Comment on above: Result Comment: This test was developed and its performance characteristics determined by [facility]. It has not been cleared or approved by the Food and Drug Administration. Cotinine levels greater than 20.0 are consistent with the use of tobacco or tobacco cessation products. Performed at: [facility] [id number] Management Supervisor: Marcellus Dave MD, Phone: [phone] PERFORMED BY: [place] [address] PATHOLOGIST SENIOR ELECTRICAL ESTIMATOR GENO BENEDICT M.D. Performed By: #### A 1C WT eA, ALB, [id number], HGB #### [address] #### NICOTINE #### [facility] , Nicotine, Blood <1.0 Normal . [facility] Comment on above: Result Comment: This test was developed and its performance characteristics determined by [facility]. It has not been cleared or approved by the Food and Drug Administration. Nicotine levels greater than 2.0 are consistent with the use of tobacco or tobacco cessation products. Performed By: #### A 1C WTH eA, ALB, [id number], HGB #### [place] [address] [place] #### NICOTINE #### [facility] , Vitamin D 25 Hydroxy Totalon 03-12-2024 Vitamin D 25 Hydroxy Total 18.4 ng/mL Low 30-100 [facility] Comment on above: Result Comment: EVE MIN D STATUS 25(OH)VITAMIN D RANGE (ng/mL) Deficient <20 Insufficient 20 to <30 Sufficient 30 to 100 Reference: Ever MF,Juliano NC, Tate VELAZQUEZ, et al. Evaluation,treatment, and prevention of vitamin D deficiency; an Endocrine Society clinical practice guideline. JCEM. 2010; 96(7):1911-30. PERFORMED BY: [facility] [address] [place] [address] PATHOLOGIST SENIOR ELECTRICAL ESTIMATOR GENO BENEDICT M.D. Performed By: #### A 1C WTH eA, ALB, [id number], HGB #### [facility] [address] #### NICOTINE #### [facility] , Vitamin D+Metabolites [Mass/ volume] in Serum or PlasmaOrdered By: Santa Estrada on 03-12-2024 Vitamin D+Metabolites [Mass/Vol] 18.4 ng/mL Low 30-100 [facility] Comment on above: VITAMIN D STATUS 25( OH)VITAMIN D RANGE (ng/mL) Deficient <20 Insufficient 20 to <30Sufficient 30 to 100Reference: Ever MF,Juliano NC, Tate VELAZQUEZ, et al. Evaluation,treatment, and prevention of vitamin D deficiency; an Endocrine Society clinical practice guideline. JCEM. 2010; 96(7):1911-30. Wound methicillin resistant Staphylococcus aureus (MRSA) cultureOrdered By: Santa Estrada on 03-12-2024 MRSA isol Org specific cx Ql (Unsp spec) No MRSA Isolated 2 Days [facility] Coding Summaryon 03-07-2024 Coding Summary HTMLBase 64 IemiwbmxQTe2oCc+PGhlYWQ+PE1 LVXFwZ48jeVUtzI1hX1QFMUaZXp gfQXHIYOqHAsEpxaFmKC2hqXAyN XJu IC8+ID4wEDVaZrsgjEYau3O9qKO 1E67zig1eDMrutKI3EACwVcBrfs uxn7hjlVk3YMzjQkvbYpVt KGTdiF99LHH9zN26Dj04cREwmMS ab6pvjDk5VjYdOESiVLY0rXylPT osx2CcEWMgX53qfEMjv2F1 WCKpmMiwlRHsMpElxEB0qJ1iNEh bzganb2naaousJex8kq12aRMqv3 M4xCL4K7GaibA5QANqlUBx MugshHDXxM1yeesjc1wmcpseDkM mOYKrOYq5AZi7UULmrUezOpImLK 81JGU0QWXsooXwM6FsEGSp pIvuOeP6r1E7Gx4NE3CLRvovX5K NTUFSWTwvdGQ+WC22gr67T6NsYj itAhx8DWWlBOC2oRV0cF4g WLNzRInmm0J8xZJ5E9IoatQdzy3 aa0vgLCKzTAvfU28vwVDhn2R7DL NmkZN9OSSdzDudJkHsdV36 Oyc+XUKltWlbw4BhVhbqg7dgx7g ckMb0MungTLJdsjRsgZqyWQC5y8 PfAz8rLFKcgAZ2qUL6pI9b FoJqXvN0ZPpfQ656PcKliRXgMcm xL07xQ9KzwRO+JYQjNcd1IMEgoN caEF1mG0NiDUVcqwyizWUm lLztKN0hGEPimowwRJXakS2tUTI eF0q1QpSrOgX7MDepK4JwRHAzas meRv70eZ4tVxFlFoT8IYnf U2GqpmE2WYInpQOfQRoaJNK3N72 bl4F3KBNsNENuBPS4zHQ8dD3xbL lnbjogbGVmdDsgdmVydGlj HQrpYGhsF183BWBajDbbGtBeIQi uZyBEYXRlOiAgMDYvMTMvMjAyND wvdGQ+BZHuFVK0kUenUZVy pEObOSeyYn5puHkfkWlcGJ6vMTC yhibyHZBulU7fUDHxbMNupHimZZ 8mFEOfnsmem411LcPvOCS3 ZNXehALpP1NskT5qMtTaEPNjPBK rZ2UywXBaGAtqB155FYwlPyK9PC MofkAnQ3SiUHKbyFcpHaC3 j3G2Ud7Ep2XdxjfoE7PcdNFzVvW cMlosCZl7C9JyXudqxTZ+PC90YW XeNK50VRy9MZN9mHhpLIzu FPZhZ3VvjH0wZaSoSPNfROMbRxl +PHRhYmxlIHdpZHRoPScxMDAlJy CjnCjxPY9fHz1kEDMjMMPn iKiowXKfDnQpm2atGWEsTSkyAV1 igNbgK9ClqIG5TRScf3i2Gn25R7 9yN2BxyKD+OKMrlUB5aCP4 dN3hYkUrMvD7LRmuW861UyAbrWA eHcjfp5hfc4hqcWf2AcZ4AHUfho PctOazVJB5s7TcMv34L65y IHdpZHRoPSIxNSUiIHZhbGlnbj0 qrR2pLp2+DRZroLL2mTS6uY5wXs ZdKpC9WBycY304UsLnsQQm Azwwz7hyc7oqnTy6HyZlDRUjvvI awHojRSD2f8CbYc49M8SbsOhjt1 HkKvn3lh06nWKay6Q4yNH7 J7WsSVKijiqrtDNkmZqxGI5nFUI fqgmgWCYhiE5gJBIrO3y9UvFsXg F1HMudS7JvglS7PWPpeQVp RLIbeHNOhZ4tgbwah4cvywsgYkU iBHYrBTc7GYy2SJNzoOwgYyQoDB G5VoF0CQY0nECuxP2ivAij wenveB1qBmc+XZX3mDNndPIFKH3 lOjwvdGQ+AVFtAAF3jGdeELywQO UlxP8hLILxA5e6PvQnDmX1 DOwkJ3TfxcV9BPZbsWEgNBFbrJJ NhS6nvvhyc1ztnznzIeTgDLQsVB s2PHa0LHPmeRlqTcCzNMG9 WnK9HRD0pCDbpT9jyMxiderycK8 wOyc+NqucnVjvIHM2COq2W5LrQc j3XRTvmElgEG4efKUaUMlr Yd7ljAbgmVvsDN9jGOKbeoutr36 5KsCoy2lkCYSqiYShRCbsNRZ0S0 1dk3B0VZFuJQSxRTU6wPO9 rM0fcHzbgnwoxTYrsAedbjMdcQr cYIuhFNzkH959FZZzyCwwDeQdFZ t9Y0RhLkz7UUKprEwyBM9a wTTzZSjyZe5tbKobnVgaHA6pLBN uycwhf774ShEfn4huJLVwyNUoSZ jxPIW1X03oc2P1ZWAzBWJj QPC1mUK1oU8seKszkzqfaALvmDd fepEoiGooPXocEUbjK548DXQndB snVfXfjAt7X7GaWfg8JIUl eZdjKK2rdLXgUTafHp2jqEdtjXp eAX1mNTUoucoio710CqAnu8hgCS CmpOXqDGigTGN2A65mj7P6 BSZhONXvYIY8cAT0hB0ifDirwco gbGVmdDsgdmVydGljYWwtYWxpZ2 46IHRvcDsnPlBhdGllbnQg SHdwWCw3L7AkQwuayLQ+YB90YBU rUE27bGRxeAHlt1uadEc9WfPtKG GgOEV1eBaxOLuay5WzRJXp Z50gmZEbn1N3MVOlnZxrhDQfRmW btCO4kB3yRItatlapi3xdepfhHh ipf5cbna00iB70X40lWWxq AFQoDYRfDVXhTWOeiHofed1zfL0 wIi8+BKVpwMX7nDR8sQ6tFNIuIu P9KBtfP678RqHzeICmShnp e5ghf9ydnJl5ArT6JCTyvbNolVn fMVN2x4OsPt23G59xBBpaWYNwJE ZhMSYqGRLkpCteam0czY0s Ii8+TSRhcAQ2iHB5yE5gLuOqOlK 5PVxeX363DdRxxXXcDckqR47bA3 JvdXA+RUTrLcf6VWDwjGwr QQ6kkIEeXJqhHx7sWFN1WiCeVuI gTUgtP4PeLNTerjzrcqjkuOI3JM SnPAZybW69Uw9wkVwtZEMh sALEeX6grikud3ypwoyaCvPdNDY yDVw6WQl9WJRafFcdLwTiKCZ8Pu B7JJM6zKHkbT1duKngexmh bT9yZ6McPXBdcozxYf64iQ2cLqF xUdO8PGsfSon+ObQTMeziU5FKTX uLWpAUINB3F8ErEhl8BHCm fRenNS2eiJUnOHclJd4baEefsXd nCI8jKBZxkuluMHJrlB7tHXSrmV YxmIokTP4mGCHjxplcz521 CvPxDPK3OOUqgRNsP2WodT3yCnJ gPRJiDARyX2NnlEOlCOejL945ZI pcNaK6ENCbcxDlY5VjPTUp zCmaZdZ5i3O2Ll3tIJ8bXk1qQSk 2LQ28PK23zUWzi1U7hWM8Y7TfAK SzlhresxxskQP8NDQmMVIq eT79qGEvHAbwHd7dr3U6a125TBP dUIFvoE62Ev2ltTlwOSPmtUSNtM 6srlmzh7wvfeimVgEsSRId JTh1ABj8HSEccUqrOvBcFGU8BrJ 1YTU6mWDqtA0hyEdzvyegdO3zBt c+JzOnNJQfuqA5U1PwTsm9 JAPyvEchJZ0enJUmTZbaQa3sgCh tfMerJV0rIGWbpsloBQQgzB0zLJ SaaVPbiFwpLC3gDSKwyhpu i456RhWnCEZ4VJBgpMGbH2NzgC9 qVxEtCFErEWAeR5VczBKnQNywE0 15CMlsTsU9XGOxvmOmX7Qu LDOprHsdFzV0k7M7Wu5HAD3HKPM 1R8QcLkp8DOLtmIyvFY4yrOIdLQ jxAz3hsEzlcSjaYA4rVKFn yrdhJMQgqY0bFWTzpTRwbSmiMR5 cSEEbaoyhe120FjUcDRT4MTBbsR VuT5AqeO0iVsMyGSQrJHQw N0VjePFuOGmrS819PAptXhO8THS dsiGzF9GbVCHdxZnqIyA5i8G2Nc 5PYnNlcnZhdGlvbjwvdGQ+ KJ32po07B5HkSoivSvv9FUXjONO 9xYV8eX6oSFBdCAlfv8E0yQC9Z7 MoxbXiqy8qz8cyHLWvWFbo H53pcZPcs1B8GBFfqZK2XLFocTb bUxFzjB55Xrq+EOLpmGpmy5ZhAh mgw3uzr8ddfFq5TkCiCPXl zuTvsEsvFPK5c6OqZf19C03wBSz qWHDjKBKcQTUuLEEmmArkgw8zkA 9wIi8+JEJgmWJ7xTT3tO0q JlFpVwY6JTnjQ673PyZkvXLlRby ot0sif7rrnBy3QmQxEFOwkmYxfX ykCBH5y8OwKs32V9XurJmy y5NeItl4zi28eJIuy3S2hLE4B3W bAGQkxovsgMQwfZtoTG4fSUDbno efRWKaiD1bOKHiO6g5FvKs EzM5QYonJ6ExtoM8GBTtbCKaVEV orCXOrE7cxkgnp9xtcgedOhOvWI KjWVi2PSz1WBCvoJsqRuWz QRD0MhB9NXB2yCAsvY5fyJsmsth zbO0dLoc+CYp3i7vqoFRrVP1bwO G6ZL84NS37uECrz2Y2fYV8 I4QkBSUecsblrbuzyTI9FJWxSYY cjZ60Ks1sxJmxRz9xZVWvCSG8RV KvbXMbX2AvcW3bGyCzIOUj LOOoE6YffBXkBTqqU336DRnmTaH 6GROldvFtA9CyZSRfqTloZkL2d9 D0Jd0SWQ21ML35WJ10dPDw m5H5xNS4U2FhEVOzdcevvvmhuUF 1NUUrYUCgcN33Yx9dqNurLz4oVF EmWMX9AOMbkWSiV8LumM4n QmHlRAWkOBJyO0NsyNNtEHkhK89 8BHjhTfY0GCOfsgFwH2WvOCYgtE iwSoE4x0P0Zp4KYp85HR54 ZF76oSUch6Z5yAJ0R8ZdVEGmylb jgvpfqBM9CCQgOTCbyJ53Gs3myD mqRn5jXKDvJOF3FJPxfDSo W1DomS2nDuVvMIGpMUYkP5PjiHA sQQfgJ867GBziNmN0WCQpybZqM8 PzOXKlcJkbWbT7m7C7Jw4A LXprven2K1CsKeediAA+GI83ASD qXU84fUOzvHGaq3nopUj3YwZiEW MfSTR8aPjgIVila9WyTLNj Y29 (more content not included)... [facility] Lab - AP Resultson 4 Lab - AP Results [id number]#1.00OTGTIFF [facility] MR KNEE LT WO CONTon [...] Genevieve Mckenzie MD on 03/04/2024 9:59 AM [facility] Consent Formson 02-29-2024 Consent Forms [id number]#1.00OTGTIFF [facility] Consent Formson 02-28-2024 Consent Forms [id number]#1.00OTGTIFF [facility] Consent Forms [id number]#1.00OTGTIFF [facility] MAGR Postoperative Recordon 02-28-2024 MAGR Postoperative Record MAGR Phase II Record Summary Primary Physician: Peter Booth MD Finalized Date/Time: 02/28/24 07:49:14 Pt. Name: LUCILA JACQUES MAXINE /Sex: 1990 FEMALE Med Rec #: [id number] Physician: Param Michelle DO Financial #: [id number] Pt. Type: O Room/Bed: [facility] Admit/Disch: 02/26/24 22:40:28 - 02/27/24 18:45:00 Institution: [...] Signed By: Mya Villar RN 02/28/24 07:49 [facility] Outside Recordson 02-28-2024 Outside Records [id number]#1.00OTGTIFF [facility] Telemetry Stripson Telemetry Strips [id number]#1.[facility] 1on 02-27-2024 Auto [place] % 8 % Normal 12 [facility] Comment on above: Performed By: #### 1 [id number], [id number], 5599826, [id number], 3439786, 8391786, 4320392, 5979176 #### [facility] (DEFAULT) [address] [place] [address]78 Baso Abs# 0.0 x10 Normal 0.0-0.2 [facility] Comment on above: Performed By: #### 1 [id number], [id number], 9122080, 0238069798, 5358148, 7204624, 9610027, 3907287 #### [facility] (DEFAULT) [address] [place] [address] 74932 Basophils/100 WBC (Bld) 0.4 % Normal 0.2-2.0 [facility] Comment on above: Performed By: #### 1 [id number], [id number], 7586576, 9600550438, 4276859, 2150963, 5249796, 5216116 #### [facility] (DEFAULT) [address] [place] [address]79 Eos Abs# 0.1 x10 Normal 0.0-0.4 [facility] Comment on above: Performed By: #### 1 [id number], [id number], 9580423, 6023563485, 1056238, 6943281, 3506855, 0957910 #### [facility] (DEFAULT) [address] [place] [address] 95946 Eosinophils/100 WBC (Bld) 1.1 % Normal 0.9-4.0 [facility] Comment on above: Performed By: #### 1 [id number], [id number], 4791201, 8132267629, 6484608, 7943439, 1049767, 9969769 #### [facility] (DEFAULT) [address] [place] [address] Lymph Abs# 2.1 x10 Normal 1.3-2.9 [facility] Comment on above: Performed By: #### 1 6553037, [id number], 1821205, 4816016000, 7013539, 1836955, 1076674, 5047198 #### [facility] (DEFAULT) [address] [place] [address] Lymphocytes/100 WBC (Bld) 28 % Normal 14-48 [facility] Comment on above: Performed By: #### 1 [id number], [id number], 4796943, 9561124083, 9815365, 8118150, 1652208, 7188725 #### [facility] (DEFAULT) [address] [place] [address] [place] Abs# 0.6 x10 Normal 0.0-0.8 [facility] Comment on above: Performed By: #### 1 [id number], [id number], 4652647, 0999136133, 5106260, 4076770, 8557361, 1254016 #### [facility] (DEFAULT) [address] [place] [address] Neut Abs# 4.8 x10 Normal 1.5-9.2 [facility] Comment on above: Performed By: #### 1 [id number], [id number], 0605566, 5001632519, 3609541, 5343404, 4087873, 2767459 #### [facility] (DEFAULT) [address] [place] [address] Neutrophils/100 WBC (Bld) 63 % Normal 44-88 [facility] Comment on above: Performed By: #### 1 9013799, 4213434486, 0408855, 9887518694, 1242630, 1222214, 7258321, 2018618 #### [facility] (DEFAULT) [address] [place] [address] Amylaseon 02-27-2024 Amylase [Catalytic activity/Vol] 51.0 U/L Normal 28.0-100.0 [facility] Comment on above: Performed By: #### 1 6408087, 5502253072, 8792105, 9913470534, 2760550, 3444911, 7317561, 1577482 ####[facility] ([place] [address] Anesthesia Noteon 02-27-2024 Anesthesia Note Patient: LIOR [...] on: 02/27/2024 12:58 EDT] Juliano Peterson DO [facility] Anesthesia Note Patient: LIOR JACQUES Age: 33 [...] history): All Problems Anxiety / SNOMED CT 14856995 / Confirmed Arthritis of left knee / SNOMED CT 003409524435075 / Confirmed Body mass index 40+ - severely obese / SNOMED CT 3439538452 / Confirmed Genital warts / SNOMED CT 844600042 / Confirmed History of arthroscopy of knee joint / SNOMED CT 6731112405 / Confirmed History of bariatric surgical procedure. / SNOMED CT 0140761010 / Confirmed Gastric bypass status for obesity / SNOMED CT 6574816866 / Confirmed H/O syncope / SNOMED CT 8126431836 / Confirmed Hypokalemia / SNOMED CT 91251036 / Confirmed Hypomagnesemia / SNOMED CT 355051851 / Confirmed Mixed anxiety and depressive disorder / SNOMED CT 364717871 / Confirmed Morbid obesity / SNOMED CT 064093689 / Confirmed Peripheral venous insufficiency / SNOMED CT 08328932 / Confirmed Sacroiliac joint pain / SNOMED CT 652509890 / Confirmed Varicose veins of left lower limb / SNOMED CT 980923749620131 / Confirmed Resolved: / SNOMED CT 546784048 Histories Family History: Clotting disorder Mother Diabetes mellitus type 2 Father Grandmother (Paternal) High blood pressure Father PVD - Peripheral vascular disease Mother GERD - Gastro-esophageal reflux disease Father Procedure history: CT guided nerve block (1050413119) on 01/12/2024 at 33 Years. Comments: 01/12/2024 11:39 EDT - Cuong Chowdary MA LEFT GENICULAR microphlebectomy in the month of 07/2017 at 27 Years. Comments: 03/19/2019 10:05 EDT - Margaret Perera DRYWALL SANDER left leg Gastric sleeve (5139885926) in the month of 07/2016 at 26 Years. section (14353386) on 11/10/2014 at 24 Years. section (23653247) on 06/29/2012 at 21 Years. Gastric band (0577748152). Social History Electronic Cigarette/Vaping Assessment Electronic Cigarette [...] (more content not included)... Normal [facility] CBC w/ Auto Diffon Erythrocyte distribution width (RBC) [Ratio] 13.3 % Normal 11.5-15.0 [facility] Comment on above: Performed By: #### 1 7980862, 4936447071, 1076958, 3792106746, 3537610, 6429072, 6422628, 2628268 #### [facility] (DEFAULT) [address] [place] [address] Hematocrit (Bld) [Volume fraction] 42.2 % High 33.7-40.4 [facility] Comment on above: Performed By: #### 1 4268795, 8770322100, 3560542, 0385852752, 0222878, 1287513, 0637392, 4347146 #### [facility] (DEFAULT) [address] [place] [address]6939 Hemoglobin (Bld) [Mass/Vol] 14.3 g/dL Normal 11.3-15.9 [facility] Comment on above: Performed By: #### 1 5805069, 5642433845, 2742792, 8668346069, 1959317, 8443336, 1581531, 1896884 #### [facility] (DEFAULT) [address] [place] [address] 02913 MCH (RBC) [Entitic mass] 30 pg Normal 24-34 [facility] Comment on above: Performed By: #### 1 7061377, 7125364094, 6710597, 7129035001, 9262148, 4721575, 2296221, 2862632 #### [facility] (DEFAULT) [address] [place] [address] 35502 MCHC (RBC) [Mass/Vol] 34 g/dL Normal 26-37 [facility] Comment on above: Performed By: #### 1 3207925, 5753538884, 9689774, 8910681453, 4017395, 9190812, 8597974, 2991243 #### [facility] (DEFAULT) [address] [place] [address] 61534 MCV (RBC) [Entitic vol] 90 fL Normal 81-100 [facility] Comment on above: Performed By: #### 1 8363005, 2586636479, 3201847, 5162926136, 3290172, 2351465, 4640296, 9424240 #### [facility] (DEFAULT) [address] [place] [address] Platelet 243 x10 Normal 138-427 [facility] Comment on above: Performed By: #### 1 5930436, 3398777994, 6976641, 9278974300, 9160085, 8093861, 2374475, 9736082 #### [facility] (DEFAULT) [address] [place] [address] Platelet mean volume (Bld) [Entitic vol] 8.0 fL Normal 6.3-10.2 [facility] Comment on above: Performed By: #### 1 8358955, 4989575031, 5119956, 1563742941, 8543619, 4695514, 8704356, 2455045 #### [facility] (DEFAULT) [address] [place] [address] RBC 4.70 x10 Normal 3.70-5.30 [facility] Comment on above: Performed By: #### 1 9488720, 2506464095, 8160129, 0742124415, 0640247, 2283668, 0755913, 7590640 #### [facility] (DEFAULT) [address] [place] [address] WBC 7.7 x10 Normal 3.5-10.5 [facility] Comment on above: Performed By: #### 1 3162691, 3072613460, 1839318, 9072166819, 8821262, 5289589, 1973018, 5678391 #### [facility] (DEFAULT) [address] [place] [address] Man Diff? Auto Invalid Interpretation Code [facility] Comment on above: Performed By: #### 1 1144221, 9544140678, 2696224, 5969592679, 3936762, 7646471, 0414845, 5884491 #### [facility] (DEFAULT) [address] [place] [address] 62864 CMP Standardon 02-27-2024 eGFR Non AA >60 Invalid Interpretation Code [facility] Comment on above: Performed By: #### 1 4910304, 0521340697, 4097070, 5173136717, 2548671, 6083937, 4536159, 5644215 #### [facility] (DEFAULT) [address] [place] [address] 56671 eGFR AA >60 Invalid Interpretation Code [facility] Comment on above: Performed By: #### 1 4034219, 5456771321, 1329280, 5146040227, 8277138, 0472703, 8354046, 5184671 #### [facility] (DEFAULT) [address] [place] [address] Albumin [Mass/Vol] 4.2 g/dL Normal 3.5-5.0 [facility] Comment on above: Performed By: #### 1 7794755, 6584445336, 5328958, 8652460201, 9578235, 3859869, 0628685, 3825051 #### [facility] (DEFAULT) [address] [place] [address] 80563 Albumin/Globulin [Mass ratio] 1.4 {ratio} Normal 1.4-2.6 [facility] Comment on above: Performed By: #### 1 9660272, 8719731717, 9404100, 0868980889, 6342669, 6703052, 8321315, 7341257 #### [facility] (DEFAULT) [address] [place] [address] 47314 Alk Phos 56 IU/L Normal 32-91 [facility] Comment on above: Performed By: #### 1 9223141, 3349699767, 9837455, 0613189931, 4935806, 4053254, 1727406, 4453828 #### [facility] (DEFAULT) [address] [place] [address] 78421 ALT [Catalytic activity/Vol] 22.0 U/L Normal 14.0-54.0 [facility] Comment on above: Performed By: #### 1 6900960, 3550852329, 5420011, 4671469955, 5986305, 3860724, 4460456, 4552566 #### [facility] (DEFAULT) [address] [place] [address] Anion gap [Moles/Vol] 10.5 mmol/L Normal 5.0-19.0 [facility] Comment on above: Performed By: #### 1 1444274, 1672679653, 7064196, 9228313693, 1415046, 6400747, 1470204, 9471087 #### [facility] (DEFAULT) [address] [place] [address] AST [Catalytic activity/Vol] 26 U/L Normal 15-41 [facility] Comment on above: Performed By: #### 1 3898932, 8971064602, 2485165, 0715115735, 1404228, 0602719, 9701958, 7920861 #### [facility] (DEFAULT) [address] [place] [address] Bili Total 0.8 mg/dL Normal 0.3-1.2 [facility] Comment on above: Performed By: #### 1 8755024, 7074056197, 7254320, 7740145783, 0078121, 0297199, 4038069, 9249914 #### [facility] (DEFAULT) [address] [place] [address] 93643 Calcium [Mass/Vol] 9.0 mg/dL Normal 8.9-10.3 [facility] Comment on above: Performed By: #### 1 3270317, 3113369978, 3919811, 1676733072, 8493048, 6084447, 2450600, 0443114 #### [facility] (DEFAULT) [address] [place] [address] 76076 Chloride [Moles/Vol] 105 mmol/L Normal 101-111 [facility] Comment on above: Performed By: #### 1 0992704, 2736978107, 1999236, 1039063000, 8555703, 3009358, 7077915, 2881457 #### [facility] (DEFAULT) [address] [place] [address] 29395 CO2 [Moles/Vol] 24 mmol/L Normal 21-32 [facility] Comment on above: Performed By: #### 1 4278928, 0035329456, 0340706, 4410555750, 3847264, 5001860, 0954545, 8474190 #### [facility] (DEFAULT) [address] [place] [address] 35386 Creatinine [Mass/Vol] 0.68 mg/dL Normal 0.60-1.30 [facility] Comment on above: Performed By: #### 1 5485469, 0319750119, 7456521, 1886116312, 1645146, 1207158, 0366847, 0721930 #### [facility] (DEFAULT) [address] [place] [address] 18336 Globulin (S) [Mass/Vol] 3.0 g/dL Normal 1.5-4.3 [facility] Comment on above: Performed By: #### 1 0617390, 0826111966, 8187390, 3927630358, 7062093, 2857622, 4687650, 4223161 #### [facility] (DEFAULT) [address] [place] [address] 98787 Glucose [Mass/Vol] 93.0 mg/dL Normal 74.0-118.0 [facility] Comment on above: Performed By: #### 1 8595202, 2274505992, 4237436, 0160617515, 7636861, 4996216, 6349303, 9187014 #### [facility] (DEFAULT) [address] [place] [address] 49733 Osmolality 270 mOsm/L Invalid Interpretation Code [facility] Comment on above: Performed By: #### 1 2089661, 2022462310, 7906268, 5568629006, 0100017, 6963074, 6419930, 4185527 #### [facility] (DEFAULT) [address] [place] [address] 29386 Potassium [Moles/Vol] 3.5 mmol/L Low 3.6-5.1 [facility] Comment on above: Performed By: #### 1 7180795, 0938040603, 1100481, 4208523935, 1991416, 4906216, 2654750, 5253621 #### [facility] (DEFAULT) [address] [place] [address] 92818 Protein [Mass/Vol] 7.2 g/dL Normal 6.5-8.1 [facility] Comment on above: Performed By: #### 1 1315213, 4602589199, 3329288, 7349386437, 4893122, 2348982, 7492352, 8781293 #### [facility] (DEFAULT) [address] [place] [address] 84372 Sodium [Moles/Vol] 136.0 mmol/L Normal 136.0-144 . 0 [facility] Comment on above: Performed By: #### 1 8299324, 6295372412, 3961149, 6390693273, 4734192, 9760272, 9445027, 3454873 #### [facility] (DEFAULT) [address] [place] [address] 08139 Urea nitrogen [Mass/Vol] 9 mg/dL Normal 8-26 [facility] Comment on above: Performed By: #### 1 2513595, 0212345799, 4313205, 6297830353, 1654763, 3425729, 7592880, 7281631 #### [facility] (DEFAULT) [address] [place] [address] 08555 Urea nitrogen/Creatinine [Mass ratio] 13.2 mg/mg Normal 4.6-16.2 [facility] Comment on above: Performed By: #### 1 8724010, 1185412591, 5171679, 8983150917, 6598311, 5111891, 6659321, 9759440 #### [facility] (DEFAULT) [address] [place] [address] PE Chest/Abdomen/Pelvis w / Contraston 02-27-2024 [...] Palacio MD 02/27/24 2:37 am Technologist: CB [facility] ED Clinical Summaryon 2023 ED Clinical Summary [facility] - Emergency Department [address] [place], [place] [id number] ED Clinical Summary PERSON INFORMATION Name: LUCILA JACQUES Age: 33 Years Sex: FEMALE : 1990 MRN: Acct#: Visit Reason: Abdominal pain; ACUTE CHOLECYSTITIS Arrival: 02/26/2024 22:40:28 Discharge: LOS: 000 09:38 Check In: 02/26/2024 22:40:28 Checkout:02/27/2024 08:18:49 Address: [address] [place], [place] [address] PCP: Provider, None PROVIDER INFORMATION Provider Role [...] Associated Diagnoses: Biliary colic; Acute cholecystitis Author: Miguel Angel, Param S DO Basic Information Additional information: Chief Complaint [...] recorded.. Surgical history: CT guided nerve block (0331148913) on 01/12/2024 at 33 Years. Comments: 01/12/2024 11:39 EDT - Cuong Chowdary MA LEFT GENICULAR microphlebectomy in the month of 07/2017 at 27 Years. 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 section (57665142) on 11/10/2014 at 24 Years. section (87419222) on 06/29/2012 at 21 Years. Gastric band (2681363695).. Family history: Clotting disorder Mother Diabetes mellitus type 2 (more content not included)... Normal [facility] ED Note - Physicianon 2023 ED Note [...] recorded.. Surgical history: CT guided nerve block (8039324834) on 01/12/2024 at 33 Years. Comments: 01/12/2024 11:39 EDT - Cuong Chowdary MA LEFT GENICULAR microphlebectomy in the month of 07/2017 at 27 Years. Comments: 03/19/2019 10:05 LUKET - Margaret Perera DRYWALL SANDER left leg Gastric sleeve (0261054549) in the month of 07/2016 at 26 Years. section (60438135) on 11/10/2014 at 24 Years. section (45641152) on 06/29/2012 at 21 Years. Gastric band (0139985029).. Family history: Clotting disorder Mother Diabetes mellitus [...] Respiratory: Lungs ar (more content not included)... [facility] ED Note-Nursingon 02-27-2024 ED Note-Nursing Pt arrives to ED alvaro m 7 complaining of abdominal pain. Pt states it has been going on for a few days, Pt has history of gastric bypass done at a [facility] facility. Pt denies any other complaints. [facility] ED Patient Education Noteon 02-27-2024 ED Patient Education Note Education Materials Normal [facility] ED Patient Summaryon 024 ED Patient Summary [facility] - Emergency Department [address] [place] [address] PATIENT DISCHARGE INSTRUCTIONS Patient Information Name: LUCILA JACQUES Age: 33 Years Date of : 1990 Reason For Visit: Abdominal pain; ACUTE CHOLECYSTITIS Arrival Time: 02/26/2024 22:40:28 Primary Care Physician: Provider, None Attending Physician: Maurizio Mast MD Comment: Visit Diagnosis: Diagnoses This Visit Abdominal pain ([id number]) Acute cholecystitis (K81.0) Biliary colic (K80.50) The Pharmacy at [facility] is open Monday through Monday from [...] alcohol and/or drug addiction problems; contact the [facility] 17/04 Crisis Hotline -Text 9HGCF nz 427152. If you received any narcotics, sedation, or [...] and treatment you received today in the [facility] Emergency Department were for an urgent problem and are not intended as complete care. It is important for you to follow up with a doctor, nurse practitioner, or physician?s automotive parts counter assistant for ongoing care. If your symptoms [...] can reach you if necessary. [facility] Emergency Department has provided you with a complete list of medications post discharge. Please inform your customer account manager/provider of your visit and for further [...] (more content not included)... Normal [facility] Inpatient Patient Summaryon 02-27-2024 Inpatient [place] [address] Patient Discharge Instructions Name: LUCILA JACQUES : 1990 Patient Address: [address] [place] [address] Primary Care Provider: Name: Provider, None Phone: After you are discharged if you find you have any questions, please, call [phone] ext [phone] to speak to a nurse. The Pharmacy at [facility] is open Monday through Monday from [...] problems; contact the [facility] 17/04 Crisis Hotline -Text 6SHKP nw 460470. If you received any narcotics, sedation, or [...] or sign any legal documents [facility] would like to thank you for allowing us to assist you with your healthcare needs. The following includes patient education materials and information regarding your injury/illness. JAVAD JACQUESTLFREDERICK GOODMAN has been given the following list of follow-up instructions, prescriptions, and patient education materials: Follow-up Instructions With: Address: When: Peter Booth [address], [place] [address] Business (1) In 2 weeks 03/12/2024 Comments: Call for follow up appointment With: Address: When: None Provider [address] [place] [address] Medications During the course of your visit, your medication list was updated with the most current information. The details of those changes are reflected below: New Medications [id number], [address] [place], [place] [id number], [phone] acetaminophen-hydrocodone (acetaminophen-hydrocodone 325 mg-5 mg oral tablet) [...] problems or questions, (more content not included)... [facility] 02-27-2024 L Specimen: [id number] Received: 02/28/24 Status: [facility] Anupama Num: [id number] Spec Type: Surgical Subm Dr: Peter Booth MD Tissues: A Gallbladder (GALLBLADDER) Procedures: HE/2, Gross/Micro L3 Age/ Patient Sex Location Account Attending Physician Lucila Jacques 33/F [facility] [id number] Maurizio Mast MD SPEC NUM: [id number] RECD: 02/28/24 STATUS: [facility] NUM: [id number] NIELS: 02/27/[address]: Peter Booth MD ENTERED: 02/28/[address] [facility] [address]: Edilberto,Lab SPEC TYPE: Surgical DEPT: MAG WARE ORDERED: [...] gallbladder wall measures 0.1 cm in thickness. Pulp Piler sections are submitted in A1 (gallbladder) and A2 (lymph node). CPT Codes 32030 Specimen: [id number] Received: 02/28/24 Status: MICHA[facility] Young Num: [id number] Spec Type: Surgical Subm Dr: Peter Booth MD Tissues: A Gallbladder (GALLBLADDER) Procedures: HE/2, Gross/Micro L3 Patient: Lucila Jacques [id number] (Continued) Signed (signature on file) Domenic Hopper MD 02/29/24 1457 Normal [facility] Lactic Acidon 02-27-2024 Lactic Acid 15.3 mg/dL Normal 4.5-19.8 [facility] Comment on above: Performed By: #### 2 951281 ####[facility] (DEFAULT)[address] [place] [address] Lipaseon 02-27-2024 Lipase Level 30.0 IU/L Normal 22.0-51.0 [facility] Comment on above: Performed By: #### 1 3990429, 2795764832, 3631169, 0916211277, 5632570, 1445538, 9915914, 9137911 ####[facility] (DEFAULT)[address] [place] [address] 33364 MAGR Intraoperative Recordon 02-27-2024 MAGR Intraoperative Record MAGR Intra-Op Record Summary Primary Physician: Peter Booth MD Finalized Date/Time: 02/27/24 12:38:12 Pt. Name: JACQUES LUCILAREE Jackman/Sex: 1990 FEMALE Med Rec #: [id number] Physician: Param Michelle DO Financial #: [id number] Pt. Type: O Room/Bed: [facility] Admit/Disch: 02/26/24 22:40:28 - Institution: Case Times [...] Role Performed Surgeon - Primary Anesthesiologist of Wall Attendant Record Time In 02/27/24 11:31:00 02/27/24 11:01:00 02/27/24 11:01:00 Time Out 02/27/24 12:19:00 02/27/24 12:36:00 02/27/24 12:36:00 Procedure Cholecystectomy Cholecystectomy Cholecystectomy Laparoscopic Laparoscopic Laparoscopic Last Modified By: Bre Spaulding RN, Debra RN Myers, Debra RN 02/27/24 12:35:49 02/27/24 12:35:49 02/27/24 12:35:49 Entry 4 Entry 5 Entry 6 Case Attendee Dina Malcolm SUPERVISOR SMALL APPLIANCE ASSEMBLY, Marie SUPERVISOR SMALL APPLIANCE ASSEMBLY Paul, Will SUPERVISOR SMALL APPLIANCE ASSEMBLY SUPERVISOR SMALL APPLIANCE ASSEMBLY CSFA Role Performed Bottom Ironer Bottom Ironer Scrub Personnel Time In 02/27/24 11:01:00 02/27/24 [...] Participants Juliano Peterson DO, Bre Spaulding RN, Dnia Malcolm SUPERVISOR SMALL APPLIANCE ASSEMBLY, Tru SUPERVISOR SMALL APPLIANCE ASSEMBLY, Marie LEBLANC CSFA, Will Miller SUPERVISOR SMALL APPLIANCE ASSEMBLY Last Modified By: Bre Spaulding RN 02/27/24 [...] Text: E.290 Eval (more content not included)... [facility] PACU Record [facility] PACU Record Cesar griffith Primary Physician: Peter Booth MD Finalized Date/Time: 02/27/24 14:07:36 Pt. Name: LUCILA JACQUES /Sex: 1990 FEMALE Med Rec #: [id number] Physician: Param Michelle DO Financial #: [id number] Pt. Type: O Room/Bed: [facility]/ Admit/Disch: 02/26/24 22:40:28 - Institution: PACU Case Times [facility] Entry 1 In PACU I 02/27/24 12:38:00 Discharge from PACU 02/27/24 13:40:00 I Last Modified By: Yarelis Schmitt RN 02/27/24 14:07:32 Finalized By: Yarelis Schmitt RN Document Signatures Signed By: Yarelis Schmitt RN 02/27/24 14:07 [facility] Magnesiumon 02-27-2024 Magnesium [Mass/Vol] 1.86 mg/dL Normal 1.80-2.50 [facility] Comment on above: Performed By: #### 1 7915949, 8434077301, 3123105, 8598249225, 2066456, 5261484, 6886979, 7493139 ####[facility] (DEFAULT)[address] [place] [address] Nutrition Noteon 02-27-2024 Nutrition Note Chart reviewed; 33 y o female diagnosed with s/p lap choly; diet order full liquids; patient with history of gastric bypass surgery ; no difficulties with chew/swallow identified on admit; encourage increase po as rachael; rec advance as rachael to regular soft diet; will monitor po with diet advance, wt/labs for changes; follow, assist prn. ts [facility] PTon 02-27-2024 INR Coag (PPP) [Relative time] 0.98 {INR} Normal 0.91-1.11 [facility] Comment on above: Performed By: #### 1 2778255, 8501922018, 5018569, 4969432833, 9701848, 4811040, 8398339, 2368800 ####[facility] (DEFAULT)[address] [place] [address] PT 10.2 second(s) Normal 9.7-11.8 [facility] Comment on above: Performed By: #### 1 1200051, 3013785281, 3561444, 5903251043, 4152402, 9110452, 5089045, 4674010 ####[facility] (DEFAULT)[address] [place] [address] Test Serum 1on Preg Serum Internal Control OK [facility] Comment on above: Performed By: #### 3 70301682 ####[facility] (DEFAULT)[address] [place] [address] Test Serum Qual Negative [facility] Comment on above: Performed By: #### 3 [id number] ####[facility] (DEFAULT)[address] [place] [address] TnI HSon 02-27-2024 Troponin I High Sensitivity 3.0 pg/mL Normal <=15.0 [facility] Comment on above: Performed By: #### 1 3690304, 2143012622, 3910875, 4339888138, 0197023, 8857917, 9161871, 9040849 ####[facility] (DEFAULT)[address] [place] [address] UA w Culture if Ind Standard on 02-27-2024 Breakpoint UA [facility] Comment on above: Performed By: #### 1 [id number] ####[facility] (DEFAULT)[address] [place] [address] Color (U) Yellow Normal [facility] Comment on above: Performed By: #### 1 [id number] ####[facility] (DEFAULT)[address] [place] [address] Culture? Not Indicated Invalid Interpretation Code [facility] Comment on above: Result Comment: Resu lt created by rule GL_MAGR_ADD_UA_[email or web address] Performed By: #### 1 [id number] ####[facility] (DEFAULT)[address] [place] [address] 81491 Glucose (U) [Mass/Vol] Negative Normal [facility] Comment on above: Performed By: #### 1 [id number] ####[facility] (DEFAULT)[address] [place] [address] 00668 Ketones Ql (U) 40 Normal [facility] Comment on above: Performed By: #### 1 [id number] ####[facility] (DEFAULT)[address] [place] [address] 00716 Micro? Not Indicated Invalid Interpretation Code [facility] Comment on above: Result Comment: Resu lt created by rule GL_MAGR_ADD_UA_MICRO Performed By: #### 1 [id number] ####[facility] (DEFAULT)[address] [place] [address] 49793 UA Bilirubin Negative Normal [facility] Comment on above: Performed By: #### 1 [id number] ####[facility] (DEFAULT)[address] [place] [id number] UA Blood Negative Normal NEGATIVE [facility] Comment on above: Performed By: #### 1 [id number] ####[facility] (DEFAULT)[address] [place] [address] [phone] UA Clarity CLEAR Normal CLEAR [facility] Comment on above: Performed By: #### 1 [id number] ####[facility] (DEFAULT)[address] [place] [address] 17587 UA Leuk Est Negative Normal NEGATIVE [facility] Comment on above: Performed By: #### 1 [id number] ####[facility] (DEFAULT)[address] [place] [address] 89606 UA Nitrite Negative Normal NEGATIVE [facility] Comment on above: Performed By: #### 1 [id number] ####[facility] (DEFAULT)[address] [place] [address] 02070 UA pH 7.5 Normal 5-8 [facility] Comment on above: Performed By: #### 1 [id number] ####[facility] (DEFAULT)[address] [place] [address] 75684 UA Protein Negative Normal NEGATIVE [facility] Comment on above: Performed By: #### 1 [id number] ####[facility] (DEFAULT)[address] [place] [address] UA Spec Grav 1.015 Normal 1.001-1.03 5 [facility] Comment on above: Performed By: #### 1 [id number] ####[facility] (DEFAULT)[address] [place] [address] UA Urobilinogen 0.2 mg/dL Normal 0.2-1.0 [facility] Comment on above: Performed By: #### 1 [id number] ####[facility] (DEFAULT)[address] [place] [address] Urine Source Clean Catch Normal [facility] Comment on above: Performed By: #### 1 [id number] ####[facility] (DEFAULT)[address] [place] [phone] [place] Gallbladderon 02-27-2024 US Gallbladder EXAM: US [...] Miranda MD 02/27/24 5:19 am Technologist: JULIEN Thomas [facility] XR knee LT 4V*on 02-15-2024 XR knee LT 4V* [facility] [address] [place] [address] XRay Report Signed Patient: Lucila Jacques MR#: [id number] 33 : 1990 Acct:[id number] Age/Sex: 33 / F ADM Date: 02/15/24 Loc: [facility] Room: Type: [facility] Attending Dr: Santa Estrada II, MD Copies to: Santa Estrada MD Ordering Provider: Santa Estrada MD Date of Service: 02/15/24 XR/XR knee LT 4V*: M25.562 - Pain in left knee ([id number]) XR/XR pelvis 1-2V: M25.562 - Pain in [...] Palacio Jr., D.OWalker02/15/2024 3:38 PM Dictation Location: [place] [address] Transcribed By: [facility] 02/15/24 1538 Dictated By: Haile Palacio Jr, DO 02/15/24 1534 Signed By: 02/15/24 1538 Normal [facility] Coding Summaryon 01-31-2024 Coding Summary HTMLBase 64 QccbrtndSYs5kQd+PGhlYWQ+PE1 KZGGnX48dlDJqoY8qW3MFWKxPAq piKUQPXZxWLrOlkaNpEU6ifOCzJ XJu IC8+GT1tOJLhPiztiVYyq5V7eKO 3B33mmt8aEZimcGP3GBOzJiZzjs aiy9eevAj2DTbcNfelLrLo RQNkbU50LRW8vT49Na66eIHukKZ mh3kfnGg2VcMjMVYlUIQ9yZkpZD prf5VwBCOyX02lnDPpu6I0 WBKrkUzvaNUhCbLwqBN6nQ1nTBw icejqb7kdzrpdHzn1an58lNKpa5 B7ySK7B1TwenT1JPQzmVFb IlegiBLTdU9vkjesp0qmxohtBlQ nGYCeFHf6HWv4CKCjrCubMfPmAK 03NCI7HOZgkxLvV8WyHUZa yPdxOnT0w3D7Tm1GG4SAZwauF0B NTUFSWTwvdGQ+JE60zf27Y7CsQt krGkj8OXLzKIF1zVY2yI8l HHBbTJdlm1M5hBV1C8HsljHjig7 ao5myJGOnZQfxM98flMCvd6Z2XP QqwJW8WQTglAzgVhSqcM39 Oyc+WDHgqSeuv1QdMsskp1djy5b ysBw4SyogELXjxhDqoZneXHE9b5 XjNf3zTBIsfZO3rAY8aC1e EoJbBkD5YWsvT128TtKhyNApVhc eY35oI6MkrPN+GOEzUzd8UBCmeG dnPM6zL5SlISFdrhzstGJf rZxyIE1nTJUezwqbCAEbsP8gOTJ vF9b4YcVbIvM9MKmaJ0RjRREzqg idFi54qB7aYtPsQwQ6EYuo Z3TkjxU0TFRmlBRiWDsbQBW4W86 zy5T6FSUhYCRaYQB9tRW2wZ6raU lnbjogbGVmdDsgdmVydGlj WKjtVTphW717ETUpbQpyPfOoZTy uZyBEYXRlOiAgMDUvMDgvMjAyND wvdGQ+HFFeTMH1qWzlCYBr pCEnTLtlZu1dcVmjqSksZG3hKHS tezgeWPCyuB5qALNilLUunKtaBI 5vEWAfkxcff932TlRtXMI7 KNCnlFMhZ6VfqL7mTkDjVLNgUSY bQ0VarSOoMQhjY221KHplWkF2MN BlylZzW6PrWOMwyOumXtB2 z1D7Al9Dg6RrjtljK3VozANtYlD rCvfwVOz7I5LmSuwsvJA+PC90YW UuHH76UVh8CCN6sKghADpj IWEyB5NyqE2lCqElQOUlXOMkOwo +PHRhYmxlIHdpZHRoPScxMDAlJy VkrWyzZV0dYc4vBCRvFOGc hGebnVDoEdWtk2xaKNXdYMiqOW7 qoWcqJ4UapQU1RRZkh1h0Lv31V6 1vR8SlqIP+BLVmsSQ3kJZ0 nC1sDcMtCvC5FHtkJ360BnAtlBP sDqtqu4hds6ngcFu7WcC5XYKsnc BxiDmmIEC0t9FjJb12F32b IHdpZHRoPSIxNSUiIHZhbGlnbj0 lrQ7tHx2+KXNhmBN7rSY9fQ8sAp XsYzE2FBcaX362EpXekRPy Imcfu8vap2dphHt4YwRnDZOjtoZ igSdaNHV8y9QiMm75Q1CrmEhvx2 WuKpk6mb72mBXep9G6xBK5 F2JsYXVjyqazrCEzwJuoEZ9iQOC yzaoqXPRhnL6mPOAxA2d1HlIkSp N8PLymR9ZtizF3DFPwzHEt DOAgxFXKzD3ezeryc5airbrgKeT xDBMjLTb2RHj7PBVaqUozJqOwOD I3QyY5DSB4vLXxsN1joOpc pcafqR4cQfm+OIR2nQXyfMWCKA7 lOjwvdGQ+FZOgHSQ8lDxmAIjwKR IarK5dGWRoW0z6DiGaUkT7 IJzfP8HjdeV8TFHjtYNvVOZfdMK EfJ1ysfdmt0fsqohfXeXvSNMlMK s0OIm0SMSrvUdtPvTrNGC7 NpX8TWC4kHGxeT1rxEtyroutpD2 wOyc+XkamyHmjWDG2BTj4B3MlSy v3WOVjkCdsBY6qvZDfDRwz Vj7xkFggcJnnXY8iIOAmiouhd15 8QzVbw7mpDQNupFBzBAvnHBX0C1 7ul7W2FPPhTYYtHUT7mZU7 jN7zeXlxfxokoJVanCxbqpDznNw vVNwlIJtcQ764FSSilPaaGlGoTM q2H7OwIid6BNLykFirEP3c rXQqASgqGg9ktOwuxLxvTE2zXTF qnvdzf560DjVaw1zkITWzoMXxSR tbKZS3C20ad5X5UWIaBVRm ORD0uLC9mK7wuRcxsexytMJxcHe sqwOosRmrDHdaDRowK380BSFpfU xzMwRqbIr9Y9YlOct1AYJf fBrdQJ8kvVDxLMbfLb3xiOeowDs dSY4qOHHqdufin639CjWwb0klMN TajJCfKXzoJGD1A40kf3Q2 EMEaFRQuOOS4fOD3eV0cpYjzcqz gbGVmdDsgdmVydGljYWwtYWxpZ2 46IHRvcDsnPlBhdGllbnQg NBrfURi0E1QhBywzwMD+XZ89QFY qGW81nJBcgYQxp7grpLw9EhKzZK IgCVY3oGbmDCdei8XzSUCb V98ocRRiy5P3AKDexRczvGAmVoR vxRW4fK7vYKezbiypi9mnolzhZn zvl5lifw81qN18J84dIPgr CKCxOCDqVERpAWUyzXhwdn3lzG2 wIi8+HWDwsYJ7tHY3kX4mAIXsQi P3KMwoZ049NcAceIElOltf f9hau8ofpRg2NsV9SHHvxxMzoMc iCYP7s5CeHb05X63oHHtmQYLxFG EnRFOhBRAfvPcuvp6hmS3y Ii8+RTGflDX4rGV2xI5pSgOrSwV 1DAkmP169KhArxWRgEiphD93bC0 JvdXA+ESZyOcp9TTYdkMgh OP2orCDoNYxbWh2hCZR0MkFcUuA dADcnV7FfKYAxmjwkgtvojTB9QD YbKYIdtC25Ci0oiWxgAVGs nLPApE8hrkljn9vbwpvbSdPpZFL kEAc9IKk9SZAwnMomKxNuKHJ5Qr L1ECP3fIBszL1vhZywtgsu qK7iH9AfYGAipnfhFw28qI1cNfE pIxD9NIpfYud+ClFOMotlZ6ZWAX kDBvYJKFM2V5ClPgf9XKTi iZcpJI9jjNSjRGdxNj1qxPxxySa cNV7qAIDhwdfmAAPpjT3kKYNuiB PmnNnbRI9bOGMicrswy189 XxTxBPN8HSIlpBNeM8GmtB9tZcA wYBLzVENdA5ZfbTMpHKxiA382NG vlLtW2UUMitcYyV2UnDVVk yPmkZuP8n7Z7Cc5nLH5fEo6eGVj 3JT80OG85yATma2D7wQS8X4JzBP QvztrxwvzzmUG6VDMhVQVu lL71wAPwGHlmCe1na3J6p241ITG tKLWjcU37Bl3umZytTNVhbXKKvR 3nxldvk1tzouicOzWlJWDq KTx4OYr6OAVcqTauSdOpBVY4ZmV 2HAR9bVIyiM5awFsbjohwzV4zKq c+IfDtKVGiulG1O2KbMlk0 YIYmlXxgLN8utRYjXWzjPi4yfVw kxGkqKD8cVSQwriorZGJgfB0xVC JozOYtbSltIQ5gKMHwspae z793BrCtLNV7CWZsvBClG3NsxP2 fRoFsDJIzFTMoF4XetTGrJVcuV9 30JOwvYvM6YORcpdKhO7Rw CTHjwQdnDsW2r3H1Ik5OEB6CGNQ 9G2EmXrf2FAHyiCfjNQ1jwHRnDP nrLp3bhBgjwDymQG0bFRYs vpzzIAUlnL5iTTGtkVAtuKzhAQ6 tIUHkwpttk062RtOlOAK2CIZykF VrA9IulP4sPvKvQJCdVBHf M0YxxPApWSksK702VNipRsN8TJT dqeMzV9NiWADobGfqBpG4l1A3Xu 5PUDwvdGQ+MH93kb98R1Yj LmuuLxh3UQXyTEF2uES6uK3nVXS hPUiob2X8oIY6U9NrstBtgn0bh4 jjWKZjKOmkX06xaWXzf1R5 SVFfkXC1OLXydEhlEqRkhA48Miq +DOEzqThup7YeNdaxg6wls3mtfK d0UqOlZPKzugXwsHrtJIJ8 q3NrEm40A01lRXwyPTJnWNCsOLN gNYUufOnxsi8zaT7qJa2+PGNvbC H9rLD7pW3iNtWvHhJ6LIwg V203TfDbaYArUpvub6spz3fgyYy 3UxIpMRLdkzZxxWkfSZJ0g8IkJn 96N1HzbFros5SkXge0vi16 jNFgb4M2qDC5L7XoEFBpzcvivTG zqNnoMO0rETEzwdifMFLwcS8aFN SmA8w9FpXdIhR9NYsnZ2Dk loS0QRPfxCKaHYLqxWFJlJ5cvax mu1ldcymfFwDbRCWoBUz8BDm7HJ HutIthDoNmEDL8NhJ2VRG5 iIDxnX8xpQrcryucvS5gHoa+UGh 2e2dzbDGcXC5qxBU5GU02EU71lR Gkg4S3qTT1G8GsZINenckv vobyrXS0OXGxYEKboU26Ap5oaTn yFo2eBXJaNDY7DUNtkBOgH5HggW 7jXgGlANIvPVBuJ7CpiAGv BHbpT176BDuaAdC3KOYpefIuH3V aOYKbmTllQpG9k0N2Iq4DKL46VW 60UG13vYDdu0T7xBU8Z0Oc BNQpklnvwhphjXU8WPHvYTAtpZ3 8Gp5btIvxAk1lXVLoVUB8MOIgiV RbC4NubP4xXhOsAYVdAMEy O1WcrAMgINqxC035NGgjEgU6JEC hhhIlA0KdPEPhiSaeIfZ4z0Z7Zp 9ZOt43WY59DE94uLVet3M3 sOM9M3GbEXXcdrsuuxwokXZ7TXW hNBIptE04Kn5afXwlRg8gBYVyUL G9SDPlxOLaY9FakB6uNbYg NYIsUSFcD4QreAUoXFbaE551AIr pAnL2RFTjlvBtR3YuLHEpgZbmHd T2x1U3Zq4TMXiuyra1B7Uo PjwvdHI+YY31TWIlBJ04gJSehFD br2fvsOr4OhIqEUFfLRM7wWprNX qqk5BeBCYxE50gzQWbz3A9 IGN (more content not included)... [facility] Progress Note - Provideron 0 01-29-2024 Progress Note - Provider [id number] [facility] Coding Summaryon 01-22-2024 Coding Summary HTMLBase 64 FiyausbpOOv3nMw+PGhlYWQ+PE1 GAQNyW02mdBMqqQ8fH2LKXDfAHi aoDXXVWFaFGvIboeBkMN8tnSFzZ XJu IC8+HR2nCQIzIchtrVCaw1Q4tRI 6B37yef5eUOnwgWN3PCBkMgLqzc zhv4ufpFx2IHqnNyrfYvTh HJIqsH91DMM9aU58Vp99nCUngSS lj4lheDf9BjOvVOIjJMN8jDlfDF mkb2WuIJAsL16ynTHpf3C0 BHNprTxhwPQrGqGdtQI8nI0hBOk uwkuwj9kmmkchDoo4dz17vAIey1 Y4vQE0T2DrbvD8PKLauYWj YtgaxOPRdJ8dddzak6ypcxapQuM jATFoISd4XZx2AMXewZqtOcWaGR 28QYJ1YOAnmrDiE5ViROLc nKglXtG9m2D6Pg9TP9BQAtzsA6Y NTUFSWTwvdGQ+MI39ti97M1AnUc xjWrp0ENSbYPJ6rIU0oZ5l ARIjEJxxs8N9hIJ8B7BhglYfuq0 di6igRMIfQKrkD44hkFVlw8D5PH BqyQX2PVAhiSmeEyUkwX78 Oyc+YPVreKgxe4HvVqlpz7lxm2b wiAn8QlyfEWIgvxYscKsbSZA1e0 JsUz8xHOApnFH5gWX7xS4b IhMlCeU2SBhpB247LfOfwKDfXyy cG86aL5YddOK+CGCjDds8NSIabT toKP3lU2YrJSRzdtxwrXPj cUkqYU9fKLDeejtyXHJkrV8oJHN pM1y2KsLeLgH7DJfqV0UkEFKvdd sgLk69zZ7aLgAeVzD0BRkn C6NbnqV7CCNnaWIoSRidSAE0X66 gi9F6AFVmEXHkICU5zMJ7aG4lgX lnbjogbGVmdDsgdmVydGlj AFwtOEurH344FIXstWjeIaBkILm uZyBEYXRlOiAgMDQvMjkvMjAyND wvdGQ+KIJdYIE0zHpbOYTo sPEzCUjdYf9hiSnjfJivDK5dUZU zyagtCWLxoM0xMPNdlHMtbLiaIW 7tGRPbvpayu522SuUpKTM7 CFRjkRQiK9XwlK9tJlCaHBNtDSP rD2GurFWwBQyxF063EEqvBvQ7ZL RzdeWvM7EoACMdfGazTdR1 o2J4Hv0Zp4XdwzipM5FsyUVzJqY jGcenQTb4J4XzTlfjxEV+PC90YW AcOG52KIc3OYX8nQzuMRig UONpY7BlmH5aYmScQUZvLBHhVtn +PHRhYmxlIHdpZHRoPScxMDAlJy SclGzsXC0tZg8oODVoNEEk qBhvwOQuEzWhp6ncRYXsKHgkME3 kbLczJ8DnrPX6PTVtz0d4Nh16M7 8fY2DgfMK+NUJvxTG5lZX2 dO1rZsKiBbC7ELxlQ994HcQheVP yPuxjz0sff6czxZk5RmS5RYBfln KpxGehMSU5g8IzHz61J00o IHdpZHRoPSIxNSUiIHZhbGlnbj0 ebU2tAp5+KJRlrRR4oGB7pJ0bPw FgQwZ6RNxtR915XsFmnKSg Xxiaj1oem1qieVo5NnXzFVXxqpR mtSfyUCD0e4QoNq58Y4YxgVmde6 GpHpl1gp55vODoo7R6hLM1 U1EwIREldobyvSGmwZbyLW1qIQB hhlxqJJHjoB7yHFGcQ9u6ZoZpEs B5OVmvM9UxiqL7LFHroHQs CRLmrKRKyQ5zpmwdw1gybscuMzI nMEUoCSm4TFa2UYZloAfdBvPtNN T8UbH8PZT3tCYvxD5okHyg ggoprJ8jRox+RVN1wYFjpUFHZT1 lOjwvdGQ+HXFwNZZ8jPvsLXayPH OqdL5jUHGzS8b7BqNzYzK7 SUmfH5SmiqF8DLTdrWCdQFQdzNU AeU2tddawe2zmhsaxUzShYFDeUI u5BRo7PLCsaBjaNqCmDIM4 IlZ4OVU0qTIywK5eyTqixidwhY6 wOyc+MhbtiCtbIUB3OOm8W9ZsUh u0ZTPidCpsQS4qjQTiIRwn Je2wvLnkdJttFN9kQVQflytal14 5LaAqt8piSENsgWDbOOknWBJ8J1 5nj8A6JXYiHLAeNBS8cNI2 dN4wsMrjjxkduNHawTpnlaRacTj iTEefLDkmO510NYDhsGmqIoPjCL u5I8AzIly5HJJuxWjqWP1u zBTnKOevRo6lqTuplBseJC9lASD plfjow812FvZxa4uvOXCbhTHyEP fxTSD3Q55of3D8RBKjXAPx VYI8ePG7yI8leRmypkdlmNUtaEs pjxFwsJseJNtkWGweD539AYYzjC wiFfEusHs1O1BuIbi1ZUOi ySjaEP1lnTOlFPnzDe7toQnluMr kGY7vQNYukzzxc772GiZto5llGQ KtxWDkVUgxZXG9C66uo6M9 EEJcODLxRHA7mIR8oF8dcXidnwf gbGVmdDsgdmVydGljYWwtYWxpZ2 46IHRvcDsnPlBhdGllbnQg RTvgDRr2B3JiCdoieIZ+IV62JQW gGR52bXQxqXCck5guhTh6WgWvDI YcTJN0aIsjXRcmm4KjHIYd V36okAGqr5R8NEEjsEnxsOTxQjX ymSR6mL1gDDkbtzpdb4pdlewmJi lxr6gyjc73sW85S47iMCck QYRkFSJvUXOlFMWviKkxme0ncE6 wIi8+PVEftSB2gFU3qP5bUBKqDp M2PBqwT426UwIfvVWxFrpv y6cls0urxNn1BoW1DRLckeQboEm fCDQ9f8JyAf95V09qYYrpAZYoLE RpVWLxBEOahSdvxi4jxX6z Ii8+XXJasMQ9aZB6mX9vHnLnXuF 2UMssX667CfTxfRXgZznsA83lE2 JvdXA+QKWqVok2OSFswAgk AG3rcQRgTUwlMx1wTIB3HjJgHnJ rOPglN4OlXYEzfddcozeykIJ2LB SqMMRqkD75Pm3zyXuwNKCo vWOZeS3mwxznr6yclhkcYlSxIPU cZDm6QRm7IIDbhWnwKkOwBKV7Fv F7EBC2rWLsbT9obWbxmwsz sA4pC2OjZCYbyzlgSn60xE8lSxA sBrF1LAbiOlv+PkNUHxddT4MTZO mAVkWMPBY6H4NhEyd9ZPVh mGjjHR6xcNBfMJlqQs1xvQkvfZz lSH6sIULlfktoJAToqL0wHUJcgP IpsRczFT8dBUUnktnkh237 AqXjALC1FZGxpBUzZ2EatH6uFaM fZAVrWDNgA5VvzSKrANyaV592JJ feCoI3CERzsmWzX8BjDNCt kRdwRgW1n8H0As0jKZ9vMl4mIDg 5RD66ET38cEJuw5F3mXA8D7VgNG HkpcyfhrsijMQ0AVLbSVAz jA76pEMiZJloRb9go0P8x776HWA gOIRjjA11Eg4pfKqnYTYgiYCGzM 3tgfagx9tievbgYsCzRSIa XEt4TXk5IKFnlSdkYkJzAEG7PdC 4MVX9uXOcrA6raMdyxywrzS6oOb c+HoTtFMOkpbQ8G7FkJzg0 GNOvtLfiCK5jfNMiXEvwMo8scXy fhHzqVN6bROLbtqrqIETntR3yRF WvqEZsqJulXX9qVZSsppla b749AyMbSCI7HETvjOEmS1HoqV3 jNgRjWOBlKWYuV1WgiICtQXydE9 71NSnjJpL1UVOolkKlM5Bj SVNypQdtXbN9d7T8Vz2ACG4FCQE 7V8ItLvu5UNUtrCtzRZ7rbCKoPK cfKq6ujSnycVhlDQ2uBBQp migmSPPebT3lXVQugUQnuBgsQI5 xYYBycqcgq962CqCiKDI6WKQoeI MaK0GvkR6fTyFcTBGuGMUd Q8BbtDInNOapN949AGhiYeU5HKZ qjmMvR6DeSWXpoFvbYbT2o2B4Na 0MRZooS1MeW3ModQuovNI+ JF63fr26U3QpIoryUnq4EVByNVS 7hXT5hC4oAPSpNZxdc7P4tNG2F5 XbzzZmek5kw2wgNXZlTWzg C03gnTYtq7U5PMSjwKU7LMGdwNb fXeMnqR47Xmz+FMRcgYksd5AtQj tsg5ckv0lyhZw5LpZzSZNl nlOvwUvzXRH5a8OwKh59E50jTOx bBDIsJLGsDGIaTJWlaBidvz2phK 9wIi8+IBCirJK3wAY3rE9n ZbRgMjC0YXecA167FrDfuRIqYmk jd6hxc6eqnCq0RnZxCPRlsqNdyG skGZG1c6KvKv96H4UhwVfd t9QpUyo3ru25cCTcw9S0xQH7J0Z xKKLdrqtzjDUweKmlNV2vMHIbwb dbHNLiiM3kUTJoM3i3GtNp ZbR1SVzcG3VutrD5RZRezHYuYQA jdNQPrR4fbqech8syuijuJxSdSN ArTXm0EMw3WGYgpEmrXtNn DVP2XhE9PTK5pGYdaG5bdHdwxib qhY0rHiu+ECf4p7zboJPbUB5dpD B8PH64RB00kZQfk8X6tXQ8 N8SxZLAovyhrirhvyXF2MKGsSAH exO59Hx6zzSroTq4fAIMlVKJ6NB AktVWgT5MsyY2lFbWjWIEw ZYSmE6AyzAXhZEzqJ813OPkxQfL 4OWDviiWcT2VaAGSvlZkvVcA9w1 P3Ms6WYK95CM08KA78sKQp l7U4yKR4D5LaMWLksfvqagqhnEX 5WTSqDTEinP45Hl1yvJbpCl8sPK YcQOH9HHDxhWZpU3CcmW6t SxUwRHRjYFTgO3BmtLLmUMneU22 9KTaiPwN1SYRiurXgL8YxEFYziQ wzXoY6y1U9Gr4ZWb66NC31 EZ19uJLfv4C5dNR7G9BhOYKqzgz jlczjxYN2UOBiRKAasY13Az9wyG puCi3xVVAwMQG0LZXzmEKb V6WmbD1fOvCdUXGtETTyD7WnxJT wMWdvK101XQacStU3OWBauqJtQ7 MtBHDwpWajXwZ9z5O6Nw2S SJifgkl3L5NdVjzhzJR+AJ89PTA gQR15tWPsaPIvr0qegBl1HfPuMX WhSSE3tElgMGbsb8RdMFDc Y29 (more content not included)... [facility] Coding Summary HTMLBase 64 AkuelqvrTTx3oYm+PGhlYWQ+PE1 GAWKcK41jtAYtoF0iZ6UTHUeIFe uaYYHIKTxLMmFvemNvUE8ymTWnS XJu IC8+AP0oHJEwTqzaqJMns1X3wOB 6B24qff6pHDuxgPX3TIArMgWtjx nkp5ungZe0CBmqIsqtGnEq MUAjtR06UEG1cT25Ms21xKRkaAU oy3ksqKg2IoKsJFSeSDH7gDrpPX iyh2JfAKVqF20txCEbg0U1 TGPiuFmqwTVhHzMdeFZ2lX7cMOt wnqatp7mlfyxqCye4im49nQYfi1 Y7iGK2Q5JmmkN8RUIgpVWz HiezqFTUeS0kuefiw8aonidnPpD nJYCzJVi0MJl6RQUykDcnEaTaUR 94JHD0FUMysiChB8HySUOq lGifXbC7x8B6Yv8DR1RFRezkT0D NTUFSWTwvdGQ+AH70ng22K2VbOt aoKmb9DVZbVDP4bLF1mC6m RQXaXQvfz7J2fZJ4F8AjopNtql9 qz4qfJIRrVHavA19lsMQqc1G2QE NveJT0ACCsbIzsIoRcjB13 Oyc+OMBpcQzwk2IeAonhh9zdw1n jdIi5AakwKROczrTgtKhfIMX0x7 TgCx2iBVJhjOQ8rAX5eG3d BcXaWoV3NQqxN733ByYrqURdYur bM18wA6XbyYO+WEGkAlu3FOXxnM rjRK6rP8NcVIIbfjhntCRe xIfgRZ9kGCHhhizqAKBqhD9yEWQ hX2i0YhRvUuZ1FDcmI8SbTLNasd wyPr86mL2pFiGxLpK6HKbg W9KvysF7AVMdmEHnTSsaDKH3G13 tk1N7JYKnAOMeHHH3lLL5zF9wuB lnbjogbGVmdDsgdmVydGlj MLpcWGtwH420OGWzfHvcKqTsRZp uZyBEYXRlOiAgMDQvMjkvMjAyND wvdGQ+KHOxKBX2fInoGQFo tOTtOYilAs8nyAqxbUlrER2rUVB mlnohLDBlcV6aOMYiyNWalTakKB 2wRCCflraaf275IwTuXUL4 DXCfwJXdC2JyjA8uBjFbVOOcDYX oG4WekWGxYOfgC380NMbrAsS3PV GnumUkP4JyJEJicXeuWqI6 u3Z9Gu6Hy6GfwoexW3PirUEvQsL aNndaRZl4W1IsYhejwGA+PC90YW VvPC98UOo5DTC6cUxiKHgw IBHcC4PnmV5lMoIgWQNbVWSlBis +PHRhYmxlIHdpZHRoPScxMDAlJy GknXrgRL5lAz9hUOFeTMHq hXenyPOfMfGzs3szBPTdQKpwIR9 yqAgcR7XybQF4QNLfb3s5Ns20X2 7wW3ZhxBG+BIKakMJ6mGO7 wE1jWlZvCqO6NXkvI998CeKgnZQ kYgrql0xpu3xugCz4EwW0MYVvkg PzmVzpDLW7g3PtVl47C71w IHdpZHRoPSIxNSUiIHZhbGlnbj0 euN7wNn3+RCAyyOI1mEA7zV8cXz RdCdM4RBqpK158PfQhkCHp Rqovo8jcb4lfzUq0JnTxDKCvylM zaKfnIIS7l7WkJk74U0UkwYuqg9 RqJld8jt70dLPty6J3dLD8 G4AdZUSwngfepAZaeBtrLE8rOEE pjudlWEWpqE6zOLBcL3u5HtCrLk C1EKxsL3NwlzR2XUZsgSDq IIKfhWWQhW9htgbkd5wdahbiMyH rDLFeORf4JRa8NKIsaNnwBcRhGH I7IfR1YZO9jGXvpB9vgZkp uwdznI4gXlq+XZF6xERtzCOGKX5 lOjwvdGQ+WHIgUWW6rTwiGClcPQ VtoI4tFRFhD7f3PqBdMuG1 WLmqJ0BaeuN4YMLovVPqKXXbyWL DwB3hxmehw8eygbhfBnItLTKiWM e7VBt2UYQkmAndVdGzGFZ7 IyA7FYC5lGPomT2hkIdulpmchH2 wOyc+DulkzIhgPSA0IGn2E0IwWo w1KIHdeMzuJH7krQWhETxg Kq2ybJmdqUlrTG4rOHHnvrgxn42 3MoKnx9zfKMXxmNTgXYvlNUP6P3 5pc1H1KZMdQFChSTM2mMB4 wQ1ouIfemwpojOTlqZmgnmUpjDe iVJsgDLhzN744CBTbfLpgDwXuIY c3W5IwCxs9ZOZthInvCP4r qCYuTRxmYu2rjJfokCvuMK9hGNV eckvei389RtLoi4neCKUxlDMaVG dsWMA6I53di7V3HJVxYHVl XNZ0rCX8bU3kaUflacxtvYPoyZa qjgCujQbhEYsiVBrqJ018UPIboL ltTuKbwBe4U4JpRtd4VAQb xDedPZ8aoGBwXMghSj7cuPpmtVb pJT7bFBYzrpkfc529CnOkd6vlCL ZivLRrNMxuKSX8P22vf9Y5 UJLlZHUkBAL0sFK1uV4dyIrtnpf gbGVmdDsgdmVydGljYWwtYWxpZ2 46IHRvcDsnPlBhdGllbnQg XKshBYh4D1KiTgnnkEV+LF99ETF dHC40fMJdxDYlu5mdgBl5YhXgBN BkZIH9yVaoIZvsr6GcMMFl K66buKZgt4J2DBThaBiycCSwIqD bxOH0hT6xPPcxcruzh7hppohsOx glh4vbgh21aD04F09gFJur HFScDYYkBYFoMCExdLpcuf3bkB0 wIi8+ZQWioCO2ePG5wO4vHCCvWg H2LCejC427SpCuqXTeRbfb f2eow8qrjKs9HbZ4UIYxtcGpbBw fVYQ9n3DdDt61Q45dNKwxWUNuYS TcIFHzABJisIlkts2prY3s Ii8+NNAnwEQ3zVW5mT2gJlOqRrW 1SSphH745SwHmsVCeFzvhW05dW3 JvdXA+QFDpOvq3NSFlcRnj IG8xoFIxJQxkPl4wTYE6TuWfYiX hMZzeN7DdAZXrwsrswekodIM0AI OuMMHbdN73Tx9aeWndGECr xZXAsP4grdorz3jzxrfzCrDdXAE gIPm2OCq7YDUaaTqeMvDvXNX0Ca T9VCX9aFWimU1qqMjlzhee tS0rU3JgCGSdyvsaSg76xR2jLeW oGdH0FGbvYiu+FnVSWlneM9CHGU lZYzAUXZC3B6OuUag5MZEn uNgrJN5ydIPiYEnaNh4giBshqUu kFR1eFZZjdpyfIYEdqM1gSUXkdT EvnHypLS6gWRDtmzkay824 LvUmNMS7GFCbuCFjQ1KjcB1yLwO lVNJcKQZoY0SzaQBbTKcuP543EP doBnO8JZTwflCvY8EeXZUq kInjQdV9h1K2Fy3bSI7uRm2vLVe 4PF53LA81bXIjc4M4zDI0Q7EjDX OaiggevofszMW2AAArZAXl bW16vVJsTPoxJp2vm2J2v521AMI xNWWtaZ83Mz2xmNfwDHIqzFIJoF 6jftkvb0fnovxdPwUhGSPy RMv0IVc1YEJybOdmMxVmCKS4NnP 7IHN8vJBhsU1saGibhdponF1lEa c+UjNhACDahbI9H3HtMmd8 AXGwoMcxTG6lhKCdLMvqNv4lpBd txWdcYL7tVFCuwgzlSAVkaC9sVS IanHDkgAzeZB0gIZAbxlpo n072AmLiGMZ5IJGboREkR0KtoW0 iHwVnFNDwDTDsN3PumRYpXXyjP2 66NYjlQmM3RDPrntAnO5Ov WEFjlCoqClA8f5X6Jf5DCJ4MBMR 5D7SmCfo1GXHtiNtyZJ4lxSFmQD pdBl3rkFsuzLwgIG4iCESt scxvQNLwoK3qRSKqePOfrDchXE3 jOOKqqauao958IgUrPMQ4SZNufM DdG3PfmI0cOfBbNEExBJOt M2AmdPUzOHatL128JSyfFmN4TNT dqiPnE3LvVSIneShsPlS8p1V7Gt 5PUDwvdGQ+LE67vn30S1Dg NtemCfe4ZNLvCXX5vPW4mM2eSOD sJOmgx8E0cRZ0X0BvwlUblv9qq0 ryTQJkLRbqV02ecJByx2F4 HMKohHI7POQmgDlvYnLnwP13Qgd +IVYcxQoap3NcRzuuo9emh8glmX j3FdQvMEWksoFohNtxRVO9 v2YuVg64L21sAXtsOXTcKLAxKCB uKCXbfZpphi0rkV8hUp5+PGNvbC O2pRO8eI2rAlVsOlS1LKun L115SjHhuCTbAuzks6pky0vdwDx 3BwMfZJFspyFwxMymGXU9c8WdZh 91O0UgwIwur4EsQlh1sv86 qAWgs2Q7wHY1F9LtQVUkocahzKV wwLtlNQ8uHNEghtocGWMbgS1dOW PqD7h1JbBsLaO1KYdrJ1Gn khZ0FFNkqUFqLVSruQEDlX3pomc ny4prcbxxGfMcZEJjSCq8CLo8VH PpwWayPfJbDYL7PiJ2GOM0 jNHxyU4faQpwtnslxB3gPsw+UGh 9h8raeJMjOL9fmBP8VZ31ZB75lX Vri6P9xOL8B5AoTUZwgkqq azttjEW6JMFvKLYcaW21Ri4peHf sDg0jVNZbRDC1KOAigVNmV2NfiS 2vLnNxRNUjCGUhB7WkmFWd QEoxN700KCqxHyR2VWSxhrPuW7V qTKBmsXvfUqU7p4X9Xi7RYT92QQ 04VP24aYYef3H6nOJ6P9Ia TYSpevstzgcupCK1QFQuUTMwwM9 0Ke7rvLynIa5uEMNoQBQ6CMMcdD DcH9QbpF1hMvEzSFGtFYKj P4PybLVbYFtvD055EBsqLzB1QKK iihFkT9OeMEDcfWhxWwW8q5E4Wm 7PWe46YS49EV45qNTej2O4 mLI7W3HtQOMouebfewneePY0PPW cMJBgeZ76Eb4phHjbJq8wLZMbUF S2CBRlyINlK8PccC0mHyLt WFXaNHHaZ4UujTDdQWduR753PSg qEfS6DFAwoiSyH7NvDHTdzFvpZi O6q4W9Sd4VLLkuidk9S8Pe PjwvdHI+KL97OEWtYC48lHYvvDT wj0nvmUt1ZlPyYONyZIM3xSobAN ixh7OyCCWlO10laSVvb7B3 IGN (more content not included)... [facility] Consent Formson 01-15-2024 Consent Forms [id number] 01-12-2024 Consent Forms [id number][facility] Cont[facility] Substances Agreem entson 01-12-2024 Controlled Substances Agreements [id number][facility] 01-12-2024 Inpatient Patient Summary [place] [id number] [place] [id number] Patient Discharge Instructions Name: LUCILA JACQUES : 1990 MRN: [id number] Patient Address: [address] [place] [address] Primary Care Provider: Name: Provider, None Phone: After you are discharged if you find you have any questions, please, call [phone] ext [phone] to speak to a nurse. Discharge Diagnosis: Prescription Information: If you have been given a prescription for narcotics, seek immediate medical attention if you have any difficulty breathing or any sudden status changes such as confusion and sleepiness. If you or anyone you know is experiencing suicidal thoughts, mental health, alcohol and/or drug addiction problems; contact the [facility] 17/04 Crisis Hotline -Text 4HDYJ to 556376. If you received any narcotics, sedation, or [...] or sign any legal documents [facility] would like to thank you for allowing [...] for Disease Control and Prevention May 2014 [facility] MAGR Intraoperative Recordon 01-12-2024 MAGR Intraoperative Record MAGR Intra-Op Record Summary Primary Physician: ALEC PATEL MD Finalized Date/Time: 01/12/24 11:47:08 Pt. Name: LUCILA JACQUES MAXINE Jackman/Sex: 1990 FEMALE Med Rec #: [id number] Physician: ALEC PATEL MD Financial #: [id number] Pt. Type: D Room/Bed: / Admit/Disch: 01/12/24 [...] Sara L RT (R) ARRT Role Performed Wall Attendant Wall Attendant Script Supervisor Time In 01/12/24 11:40:00 01/12/24 11:40:00 01/12/24 11:40:00 Time Out 01/12/24 11:46:00 01/12/24 11:46:00 01/12/24 11:46:00 Procedure Block Nerve(Left) Block Nerve(Left) Block Nerve(Left) Last Modified By: Reba Liang RN, Kelly RN Weisenburger, Kelly RN 01/12/24 11:46:22 01/12/24 11:46:22 01/12/24 11:46:22 Entry 4 Entry 5 Entry 6 Case Attendee Mason Garner RT (R) Dina Malcolm THOMAS F MD ARRT SUPERVISOR SMALL APPLIANCE [employer]SEMBLY Role Performed Script Supervisor Scrub Personnel Surgeon - Primary Time In [...] ARRTPatsy James RT (R) ARRT, Dina Malcolm SUPERVISOR SMALL [employer]PLIANCE ASSEMBLY, ALEC PATEL MD Last Modified By: Reba [...] Text: E.290 Evaluates (more content not included)... [facility] MAGR Preoperative Recordon 0 01-12-2024 MAGR Preoperative Record MAGR Pre-Op Record Summary Primary Physician: ALEC PATEL MD Finalized Date/Time: 01/12/24 11:49:22 Pt. Name: LUCILA JACQUES /Sex: 1990 FEMALE Med Rec #: [id number] Physician: ALEC PATEL MD Financial #: [id number] Pt. Type: D Room/Bed: / Admit/Disch: 01/12/24 [...] Signed By: Sushila Quintero RN 01/12/24 11:49 [facility] Patient Handouton 01-12-2024 Patient Handout [facility] Test Urine 1on U Preg Negative [facility] Comment on above: Performed By: #### [id number] ####[facility] (DEFAULT)[address] [place] [address] U Preg Internal Control Pass [facility] Comment on above: Performed By: #### [id number] ####[facility] (DEFAULT)[address] [place] [address] Progress Note - Provideron 0 01-12-2024 Progress Note - Provider [id number]#1.00OTGTIFF [facility] Coding Summaryon 01-10-2024 Coding Summary HTMLBase 64 HkzemsecMRy8mEk+PGhlYWQ+PE1 PVCKfV58gjLSujE5cF8LIKKqZXg auIANNAZmKLyEnjfWcSP6slRKxW XJu IC8+ID5bYQJdJcxtqXPki9T2qPS 6B62lgq1dWQpmuJB9JKZjKiHqdf vvu7ubpJj8HZiuWsigZyNk AYUpaU86AYS3dS83Od42iLItnAR se1xrxSw1BrCqEVApJGY3mXbnBZ yww4CeRDVeG72vxKXly2J7 PBDznEkrfZLfVoPkfBA3wN6iJAd vlgfqb8cbrfqjPlw6ll80rTHcz9 Z4qCG4N6KaxeY8XAUgrKVq WldnlCKMjD9hpdtzq1xjbtmpOdO wXMRiNWw1ZOo3OPXziQdnVbYvLM 88WST7HBWmhoMlL5IgDMQb jCkgPxO7b0E5Ga2ET2KMYkfwY5F NTUFSWTwvdGQ+JZ96ez05H1QwWf irQes8EAMkQEH3pDK1dV5v MJJnCCijw9N5yPG3Q9UtuaBbip2 nx9sxIKDuZTvfE04dzXVwy6V0HN KfnMQ1YMDkmZkiIcVooR18 Oyc+SPHkcZvog6GgSmgef0lhp5g vxOe8SbltTRUpciStbUfhPBQ6r0 VwTk2bKFIowYX1eUQ1nK5r WkXjXvT6NTbiA029FdFhtYNfBey zD64hA1WkqQD+XYLiYjf9HVOywK qoEX3eI8IvNBWwwrgwgRZm hPdzFJ5mDSGiaxylHWAeuV2wIKN oR4v3UaUoXiH0FGzjU2OhMIEtgo ucSe68iP7pBhJjQuB1DAme Z8PxaaM5UPZqwFKqXFipWJL9H04 um3E0ZZWvAFRjNIP2sEX2pA5maP lnbjogbGVmdDsgdmVydGlj CPkoNQssM161ZILvyBwqBgNiZYg uZyBEYXRlOiAgMDQvMTcvMjAyND wvdGQ+SOBaQWH5vXadORAf yPJcOBvoKy4wnCsybCfyKR7bATU uslruADJvyM1rKQStkTNhnQdxGZ 4sBTPpaloeh653PyHyOWQ9 OXTazEJmT7CpfE1xNkRqJEOnAQL gQ9MrqYFlAJayC942LZklGeT8FL VbsjTvM4XwAGFrqHjnFxN2 e6D7Bo9Ax9AaxiviL9XeaZUcKqG kHqszWMv6X9LtGbeufLS+PC90YW OvRJ65GAr2WZW8yKpzDIhx JQWdG2QmlV0eSxUdRDKsCDXmNev +PHRhYmxlIHdpZHRoPScxMDAlJy HanApgJO7dWh5kTJVxRZAq vQbznQDwTyUer2pvEFJgHFhxYT8 vjFgyJ9OcrKS3QORri7s5Iv96W3 0cH2IdoEM+FTDncWE7uLT4 aR2oUaWwWjZ9HSxiD843LgRdcDX wOwozc8rcw5anfCs4BeT9KSAszn LuvBrmRBP3m6HxJq95K85w IHdpZHRoPSIxNSUiIHZhbGlnbj0 wmF8hTv9+BVAfrDN4qGF9hL6iZr LyKbJ7OOvlD318YoLzjIRe Mkmcq9sqb5fzuPf2YhBbZVXdmtF ksFitSZU8f8HdXf41D2SpsEhpq4 NySam3hz03aQGfp5V5lOX5 D3AlMOIxosjywBZoxAozVM2eFLM uuojgCRQnbC0yABGbY3y0EwGhYp V9PYocH9KicuS6DNQynPLg CYLyiSJPvZ6ziemxf6ikjsheYdR gYEFcZHp8LHz5VAMeeOxsQlOpHO A4WoY9ESP9xKAbzY3qtDsw zvwyjU3cWiw+AYH9oVRneHWRYK4 lOjwvdGQ+VFItDDE4kKlkRLajVY AjvL4qEYOxH2z0PbOeKpL3 PWxpH4GjodG2UYFloORjXCDaqRU ZxL0fcxaew7bbxanlNbFgABHdXW a2YJy5MNLomIzdPrNvQXY6 OlD1QCQ4pDCvrC8zaIyfzeeazJ7 wOyc+JmokbDrqGGO8XXv6A9XrQm s6WUYhzOhuVA2ftSPfCXen Jg2nfFsvwSeyVR9aTGQfihhvq66 7MzAim3xxFBFsrWUxSMezQOC3C2 5lm3L2QKDiJEMpEHI6kWJ4 mL6ujJfopxdtiSQvgOxkriEyvNg wLZerEDiwU061XHCreKlzFxVsJL z6Q9SaItt1RSCghSprMT4w yUAqVCtsPt3vhAqugVbnVA5eZFQ baopzs466UnFxz1huIJJgpAJuCM rdZHB7D49fd9Y0XDAwHPUk RKU5hUO3nJ8blRwnajxmgUJsoGw ttwVwxFdtJCisNVfzD090ZVAuxS jrFjAslJd3V0EtVpc7YBBt bVqnPV8nhPWrALgdYr9ydMzjxDm qPG0hIEQdlthua915ZxVfe2pjDL GreFLpWWqyCLP9G43em8J5 BIBnCVViCUZ6eTG0yJ1naEowfwd gbGVmdDsgdmVydGljYWwtYWxpZ2 46IHRvcDsnPlBhdGllbnQg RTgkKSt9Q1YdYjtkuYR+TZ47EQN hDX01wPZwiZBye5foyJk2UgVrCX VeFKW7pAjyGOhnv1QbWBIo O93zxFQgc1H6WBFxjOkfxHXjWhC vdRM8aR9pXKnobxpih2xvxnwwMc lsn3vpoa10fT49W45fAYpx GZYlJAGfGXBbBEJcdZxnll4smA9 wIi8+TIGdfIC9gEN8kM7zFPFsWh M2YSvgO812YrItlQMmVfdk x6eet5fmkRo7NhA1SOUvtfKywRj fDOW8o1GpRo39M12jKLxhRONyGF ZtGNPjDYQgkRdosj7cmZ1r Ii8+DNEchRZ9mJG9wI7lWaJkAqI 2DMzaB722ZiWjmZWmNmfhX89hJ4 JvdXA+QIGuCwh2CBJowVtw PK2taPJhBVstHq3sACD9LcJjUnE qKKneH4NeBAYkermajrldaXO7DY BvINEktE27Fn6ucNhyHLSl dAUTbC6xngxmf1evqbvuEvHlOZL aLRd7AEs8EMFkcYwnXqTpQKT9Dk B7SLN7xHHczE8myHezcuii tT4pD1SlGTXlipdiSh07nN7dLqP oQgW7MYilBxn+TsGPHiakY9GFCU qVMiJCWDT3D4MtRok1LVHb lQesRB8ksUUeERriVo6dnUbotFc lBQ2vKOKcsppwAKOwvB1rSOZnaV VlsGmtZY1iBARnmblok802 PwKwDTK0PYJefJCaW8FvzY5zCvJ qMBUyIUOlN8VdbROlPIzrW429UG qsHhN8UVRkxoRoH1FgZWOd uMiqFxB5n1B1Uk4yCP7iAd5lDYy 2ZY85QX99wXQjz8U9cSD8T6DnRJ VvezjtjmluuDS9RYTfHCEp lH14qGTvOKffHz3li0D1q429DKS mVLVfvA92Ro0eyHfsNLSkhOQXiF 4slqqtv9xrwkksTeKfSQRl HJa1NDs1GIIkiCbwPcCgAMJ5OqK 8NRG2ePDaeE1blGthhbrokO1oQp c+OcKySXYpqgL3V1DrPku3 PIJllFngYO4kzECeXTvdNm9ynKr frDmfTA7lGJNkkzskMPGjwV1gTZ EimRGmiSykOV9cIEFfjiba e180GvQkNKC1JQZclCKhX2IbvK9 zSeHgEEGfHSVuG1QvkVFvNPzwZ7 59RIleAwW1DFMyrqQoS7Pi NKNtzUukIpC0p8U1Un5WWU2DUMA 3Y4KnYkt5IWLcuNwsRK8enMIeFF gbDn3vlPkusHpoAE8oADDw qjkaSCMdnD1tUBHoeZHunMpsEO6 aQAOwctbyd113JwMiZKQ6YUJbrI AwH6QscU7oBpEeCWXiRLMv V4LgsCZyPQsiN397UHvhWbO0FKY erqZnM6NhIPZeeVzjTyZ0g3T1Vx 5PUDwvdGQ+IM36so11I1Do NetsXfm0RFTkZGR9dLV7eX9qFBI rDBvbr4J3tGZ3H6EdrzOkrj5nr9 axPPMbMHjsC79qcZOws6B6 PFMtoCT6JQLmyQmxRsCfmH50Osg +IKRzbHezb3VfYrpqu8kwz3gqeU w6NfUwFKXbnuKlfTukHGF3 w6XiYg83Z07oHYhsNBQlHEGeXMF qVLIxoFsvtf7pqK6wNc3+PGNvbC O7xIY5tJ3oIqBtQdA9PIct T748NeZgdFFrZftkx4bea8kmsSc 7ZeAtCNRfddUbkSqpWHQ0n0NpUl 76F9YmgZqnb3JtLma2bk56 gODre9V4oIY0F1QsFLZwnexqaFP ocBukWY6vPTMxopwuJZBpiJ3pJP OkL3f7QzRdWnN8ZQowD0Nh ulQ8WPEfbPDcMCEewQGQeQ1txnh nj4ehxdvpPsQvBZJpEHo0SXv7KL SibVvkDeJcTER5YaD4RXB2 lKKrnS9drLuoclncdL1mBec+UGh 9c5dsjZXoQC2vnMI3DK10FQ77sT Crh1V6wNF9Y4MoSTJxwufj ycujlRP6TISoMDMxrU81Vf1wtZl jVv6aRWVeVNS9JRWgbUNlO8LdgG 3tSqFgKVXrAVEiV9OaaHEq IIquJ976CPspOnV2VIWpbcPbT1R aJAAdoUazYhF5b6R1Go8CHV47GQ 43AJ36aGUpi2K6fLE7T8Sr CBYchibytckifOR5PUSwPVJfuB9 3Nd2jfFnyKb6lMIBpDEI8ONSshI FyU0VdiQ3dXdXqEGXwAYCd M1QvkUPtGNlvS596PXboEfO9POR gpgFxM4YxHEKamSjrDhD6e4Z2Cn 9ZNr34ST89BN69gVBpk5O8 zUG7L3VfDTCcgsrbzcnbkHM3INU hVETzbV02Ma1joEycOi3hKAJcGU J2ZRRfoCVcN9YpaK8hDdUk CCXuXTBaK4XedWAzJLswX612HJw wVkD8QHKpmrBgS1LaVRYieMllXy M4d0R5Bd9WANbmrdy6N0Im PjwvdHI+SJ09LWJlQE21fHQwqXP ml0yxkWb3NbHrHUYmDOQ3tPraPA gwu9NfPCEoA94bsMVtv7Q2 IGN (more content not included)... [facility] Coding Summaryon 01-09-2024 Coding Summary HTMLBase 64 PqfzzvffIGl0gJb+PGhlYWQ+PE1 WLKGgB15koJJjdI3fL9EHFZaQRd muYIEMXVxDSzDkzlWsLG7wkQVxJ XJu IC8+GH7bVOHmEgovnKBmc9B1ySL 3G17zne7hIQshsWZ0POJgWsDzgw uct9sgkTk2DGnpDkwkSwHu GEFpbO27OQF5mJ36Zr79cOLfpRM iq4tpiBi5PqFlZIHfETS7gAutDF vvv7AhEVDrT58wqBTjn6O6 NDCtnGrecGTnFaAtuKE9aH3jGMq fqlair4kvromqSwo5rs32lRNaa2 L9lBE0D5VhasU2TVKerYHi ZxtctCDVeK9tlrbmb1pzvoblXcR bSBVdFRl7GPy8QVOopZaeUxPkQK 17ETU1FVPwaeBzZ2VmCSDe aFirUeQ9l6E3Xd3VY9VSPcrmM7W NTUFSWTwvdGQ+MO36ny27U7HnXp fuKqi4NUPzRZP6bQH4qO3v YRCbITixc5J4fPT6Z0YwxvJivv2 nl9exNGSyYYegI40fpTJdb0F4DH RpjAZ1UKNugItgHpTrzZ33 Oyc+KAKezFhyb0PiObhxw2ayk7p ftMk1BynwJQNeipHyaFwdCLE2b9 FnYu4nPXDzoWO0kPO1gJ7l WxEiDvA7NTppZ383DcGxrMIvWqg mX99yO7NeiKE+WPMsCco7ZFPccT abTM7bC2QwJDJoozrqrFLl iDiyUF7vDYRfmbaiORAwmW9uKPB fJ1z9TbMvKnW2MQcvT2AaBPAsdy rcUa69kQ7cPbXvCjC4NKij K6VdulN6YOPteXTqTIzoODD2N92 eg0J2UIDiWAZiBVI9eLL7pQ7huI lnbjogbGVmdDsgdmVydGlj YTcyPMmaZ156ZLUepRagKtJlNQt uZyBEYXRlOiAgMDQvMTYvMjAyND wvdGQ+TQHzFHY8gZqdPPWt xRCgVBdbBs4bgPedfDsbZB2wIAO yhydtQQXtiY5nZVAzyEHmhPffAP 1wMCUfetatp159JdWgJLF8 PNTmlQWeN0MqcS3iFqAvCZJfMFM jS8GrdACzRSudU547LHazXdB8VS HxuiQhI1PlOPUmcMfzZvA1 m5T0Dg6Rl1CdsxukM0OemUUbQyF hKuzkREo9A3DiLuinhUR+PC90YW GbJK40SOt5FKI0sOlnGIrh UMCnH8ZanF5kQcJkDUIhETJeXai +PHRhYmxlIHdpZHRoPScxMDAlJy ParDglWM9sEw5dIZRgTUPj xBzeeYEpSjAuc8gyVECaOJvdDU5 usQouV6AacOK4BAEdm8x8So26K0 2vD3WhyCZ+ARQsaGK8rVI6 iF0oBhZpMsH8QIgmF232TrTsuGT xYasim9sua8gulJm8GbR5JYFpia HjiHhiSRW8p1EeMl86O52z IHdpZHRoPSIxNSUiIHZhbGlnbj0 fbF0mSz4+UITbrFN2sXH8xJ1yOa WiVwE5KDgrB413XzKlnLJx Aagwm2kgx2ukrOm7WfBrPDRjzvL uwCbaWAU7j4SlLs12X6AbtOjsg6 LmEyf4wm81lOHer5O2bTU0 H1YrPBEnvaiseDSoaKufTW3wDIN uaehkPWOrpD3jXXUnV3j2EoQjDs Y9BOlvG0HmjeC8ZMKkwZWq NCEnkFYSqP2iqjykj2koslhgOlT jYSGsAPg4QGy1CLWmaIbvBvFqVP B9KdM0BDN9rUZmmU5rkNke islczM6iZkb+YGG5iMUmfJYCXM6 lOjwvdGQ+OFSiCHG2zYnlFIffRC SdvH6vMTPhP1c5GiGpXcB4 IIgqO3OjfeS1TNDfgPIbDUBtmPC GyN8onyrer9zepgzeDiHqXRYaVX l0LCx7ERIkkHduGpRfTTU2 BtP4UGH1eWUprH6ypEdkeqioyN4 wOyc+NqyalDfbFHW0KOf0V2EiMq r5JWRrgQjnWH0itSWsUBll Rj7hyEqfkOlsGQ8oFABtwimhw06 5DhYdi1qrTFPtuNFwBBkiTCH2W7 7ub3I8MOIlDDEfONC6bMN1 vU6djKzcplpdgVNvsLbvlcIguXi gCBepBUimO472DVOzgJogHuHjQS f7F8AdHxa8ZRSwcObqIG1c xQXxVWerHk9pyCbofUweUC1yWQC zniwrg217JqNqs3agWZWnjXRpJY arVSM5N28hh7J5NZOsZTIu HKU7vIC0sS3jrHtjcrdxvIUnvLg xddNhgFmbHFrjJKsfI942EXWeqB wkWeCsdGk4N5ToYry6ZFMw nEgaJM3mhSUqBHwpYw7mxQpudKk lLI6bPFLytaqgt901WoRoz4rsRS AbgCOmGVolPOQ9M61rk6R9 VFCtUHJqOXM4jBD3nK8uyEbuuiu gbGVmdDsgdmVydGljYWwtYWxpZ2 46IHRvcDsnPlBhdGllbnQg KUbiHLr9H9OwHmjfnEV+GO92BVC mMC81fMNpnTXju6xrdBj5LxZnWQ OcMFF0vGlgXXwia6XyHBIj M34rnYPsq6J9JJAhnGlbfHOsUyZ exRW0mL9eNFcasdcbs9kegkeuYh qtd8ombl86rU89H31zPJjb ILFxKREkFEPbNMCjlZkewr4laI0 wIi8+OHTxvVS8dJN9sI7zVIDvQz Q2NWiyS541WtLjgFIzEynz l5yev8mtpGy0GmR0EAHiggKyqGj yNEP1s9IfUz61M55uTJaaUNAeHI DbULHsXWWfjJfmpe2pvB0d Ii8+IQAzlSK3sCL2nD7dLnBuToK 7ELdhI594BsKgmRBqXeziX09qV8 JvdXA+EJNuSdw2THOuuLhb MJ3cyOMqWKqcWb0rWIY3NgRpGuE jQThtR7ZiHUUwincxxsblrZJ4ZV SiHOJvjD77Pw9nyRweOOQq yBYLrA5rzapuw0sqycmtHlXbQKQ tMAg1KMx9QVOxmQufZnGzYJS8Ur C4EEB9eIYkfW3imFtwknya pB3iL2UbUGInysxcBn45uN5oCjF tPoE5BIakLrb+ImNTNxuwL3PMBM xMSxWDFZT8X5XgXlt0OTQs lAxrXS2lvSAhUPbpJh9orJapvZi qGV1mELTwdbkaXURenB2nHKPykZ CtuXhpDD9cDUTfphcyj116 GyDjECG1QQFtcSRjV9CsoZ7cCgK qBWDxXRBoE3PgwBVgJPueL913WH vzEtE8CGNdvgNpR9WnCIAg gRwwToC0v9T0Kh1kEV2tIz0hQCe 1FE15BX47rDNzv8D8rLA6G8ZbJC KpahwpxsbzgZG6BHTuBBVo cY34zBJcOJzaVi3vf0N1d155OWT iKYVyfR96Zb2mjUnkZZRdeBWNpP 8xnjiyd9cshrscWxIaUXBg ISo3WBu3CQEmaOvkWcXqGHY3CnZ 3HSX4wVQudC8rhJjkmxiteZ6hRo c+YkUqQBLmkcK9L4NcYuw7 ABSykIyhPQ2nmCKzBRsaWi8hrZb ilJoaNK4lFWQhlkskYSJetE5vYR KqeKPsqEwrVU3hCSOpemnf n444VhVtHAI4SOMcuFKjP6MwoZ6 jExXmKHVeICCdQ7ToeEQcVZybI5 40WOryExC8MMEnycKoN3Ug LZFyzQlrMaC1v1E9Zm2HQA5EQKU 6Q5RwPwi6JYJqjRqvQB3fvXUwZP jzKi6taElhsIsbXA6tBDTm ljqnUQEaxT5pJFTikYZshIzzVF1 zDHUkfpmgh294ZbBpYME1CMOojM HbN8RrfM9gSaGrFKYeLFRw F0GllSCiCBfpA934OVouGiW3QZS zqrIiC3ItAIQhmKjbQhS6o9V9Es 5PUDwvdGQ+RC33ly69V8Yg RujoWfq0KMSwXRF7sQU4gK6mMOQ nOGoan8N4aXL0H2ZnmmEkqu9of3 zuEPReDCdfB95dkSEqt4F1 MQIhvAK4RCPkkLatUdAzfX79Qpw +YVLlmNjcx0ApDesio0bps6scvK w4LsWiEUSanjKqhXmfFPJ9 s8VeWa59N45jTRvqNWOfHWXkGXJ yMXDpjZhyvf9viE4pGz8+PGNvbC Q4dFF8tV5eMhKtQuW5YOam L148VyUihJLoYxznk9fcp4vaaBt 4EkYoIFAurtEqhCsmOUA3a7PfHx 86A5KajZvss4VyLsc1rb93 eFJhm8B5lCC9D0LfPJQxkscxhCY tmCrjSI9cTUXmzgtgGFRpbV6wIF BzX9a3IbXxClM8DQaaV4Ld qpX6PBZdeFKzMXRjdDCPlI4lugg to2zcpfikIuSdGQSeVIq1FXg7FF EpxPtmPrDlTEU7PmM9AXR8 sJXyxU8pdHdakibghZ4nQsx+UGh 4x6vtxNJzFZ3gmAZ6BG29EJ31jJ Haa4N1iHG9O3InZKVkzqgq luzvmNL9SGUfDCIewM02Un4omMs aCu1zEUUmBEQ1ZCGbxPXxI6YekC 0bUyGtTHChVBDsL4MfjKKo WDnkJ840GDrfUaL4PNCuujUtP9P dAMVncQroDcR6b1C5Pc6RGZ44CU 42UN61lLGog7Q7iJW5S0He KCBxlnqrqjituUH6BQXiNJMmlQ1 3Zl8ygKleUf0bOUStQZU0JVMajP PyN9LogA0aCzPpIWWjXKZn F1OsbXJtMPjzK127ORorTmO2HZL fiyKvD9KzPZVkyJisQaO4b9W3Xn 8JVs12OM92ZF07jDHpa2C5 kJZ9W7GoOQFbuiaqktybmKC1YCY pVMFwnX44Vv2kxCpxNs4uHVZeER O5PORqtSHvG7TwhS4uAaPy WQDhYDTmU1BzhVHjRVxhJ841XSq cHaN9PJMazyYbC5SbJQKejPuhDu A5i0A8Da3FHHrafif4B0Fm PjwvdHI+UE53YBAmJW74gVSibKZ tv1anoWj9DySpFYMqPNI1oNpsLT rlj4ZfZZByU95qrBUen8Y2 IGN (more content not included)... Normal [facility] XR Hip Complete Right w/ Pel vison [...] MD 01/08/24 3:46 pm Technologist: DARLEEN MALONE [facility] XR Sacrum/Coccyx Minimum 2 V [facility] 01-05-2024 XR Sacrum/Coccyx Minimum 2 [...] MD 01/08/24 3:46 pm Technologist: DARLEEN MALONE [facility] XR Spine Lumbosacral Complet e w/ Bendingon [...] MD 01/08/24 3:46 pm Technologist: DARLEEN MALONE [facility] Telemedicineon 08-23-2023 Telemedicine [id number] Lior Green in 1990 Date Provider Department [place] 08/23/[address] [place] [address] No family history on file Level of Service:25398 [place] OFFICE/OUTPATIENT ESTABLISHED LOW MDM 20-29 MIN Normal [facility] 37on 07-11-2023 37 Follow-up with [facility] y medicine as directed. Normal [facility] Telemedicineon 07-11-2023 Telemedicine [id number] Lior Green in 1990 Provider Department Center 07/11/[address] [place] [address] No family history on file Level of Service:39935 [place] OFFICE/OUTPATIENT ESTABLISHED SF MDM 10-19 MIN Reason for Visit and Comments: Headache [52] Normal [facility] HEPATITIS B SURFACE ANTIBODY QUANTon 09-01-2022 HEPATITIS B VIRUS SURFACE AB (MIU/ML) IN SERUM 3.83 mIU/mL Normal [facility] Comment on above: Result Comment: INTE RPRETATION: NONREACTIVE<8.00 mIU/mL INDETERMINATE8.00 - 12.00 mIU/mL REACTIVE>12 mIU/mL Performed By: #### L [id number] #### [facility] ([facility]) [address] [place] [address] T-Spoton 10-18-2021 T-Spot. TB Test Normal [facility] Comment on above: Result Comment: [employer] [address] [place] [phone] (NOTE) T-SPOT.TB Test Results --------- T-SPOT TB [...] R UBI, FANG, JAGDEEP, VZI, TSPOT #### [facility] [address] [place], [place] [id number] Management Supervisor: Isreal Astorga MD Measles (Rubeola) Imon 10-15 Measles (Rubeola) Im 6.05 Normal >1.09 [facility] Comment on above: Result Comment: Interpretation: IMMUNE Reference Range: <0.91 Not Immune 0.91-1.09 Equivocal >1.09 Immune Performed By: #### R UBI, FANG, JAGDEEP, VZI, TSPOT #### [facility] [address] [place], [place] [phone] Management Supervisor: Isreal Astorga MD Mumps,Immun,Abon 10-15-2021 Mumps,Immun,Ab 5.42 Normal >1.09 [facility] Comment on above: Result Comment: Interpretation: IMMUNE Reference Range: <0.91 Not Immune 0.91-1.09 Equivocal >1.09 Immune Performed By: #### R UBI, FANG, JAGDEEP, VZI, TSPOT #### [facility] [address] [place], [place] [phone] Management Supervisor: Isreal Astorga MD VZ Immunityon 10-15-2021 VZ Immunity 2.55 Normal >1.09 [facility] Comment on above: Result Comment: Interpretation: IMMUNE Reference Range: <0.91 Not Immune 0.91-1.09 Equivocal >1.09 Immune Performed By: #### R UBI, FANG, JAGDEEP, VZI, TSPOT #### [facility] [address] [place] [address] [phone] Management Supervisor: Isreal Astorga MD Rubella Ab, IgGon 10-14-2021 Rubella Ab, IgG 279.3 IU/mL Normal [facility] Comment on above: Result Comment: REFERENCE RANGE: <5.0 NON-REACTIVE (non-immune) 5.0 TO 9.9 EQUIVOCAL >=10.0 REACTIVE (immune) Performed By: #### R UBI, FANG, JAGDEEP, VZI, TSPOT #### [facility] [address] [place] [address] [phone] Management Supervisor: Isreal Astorga MD Basic Metabolic Panelon 09-0 Anion gap [Moles/Vol] 11 mmol/L 9 - 17 mmol/L [place] Bun/Cre Ratio NOT REPORTED [place] Calcium [Mass/Vol] 8.7 mg/dL 8.6 - 10. 4 mg/dL [place] Chloride [Moles/Vol] 107 mmol/L 98 - 10 7 mmol/L [place] CO2 [Moles/Vol] 23 mmol/L 20 - 31 mmol/L [place] Creatinine [Mass/Vol] 0.59 mg/dL 0.5 - 0.9 mg/dL [place] GFR >60 >60 mL/min [place], [place] GFR Non- >60 >60 mL/min [place] GFR/1.73 sq M predicted among non-blacks MDRD (S/P/Bld) [Vol rate/Area] [place] Comment on above: Average GFR for 30-3 9 years old: 107 mL/min/1.73sq m Chronic Kidney Disease: <60 mL/min/1.73sq m Kidney failure: <15 mL/min/1.73sq m eGFR calculated using average adult body mass. Additional eGFR calculator available at: http://www.[employer]/multiple_crcl_2012.htm GFR/1.73 sq M predicted among non-blacks MDRD (S/P/Bld) [Vol rate/Area] NOT REPORTED [place] Glucose [Mass/Vol] 91 mg/dL 70 - 99 mg/dL [place] Potassium [Moles/Vol] 4.1 mmol/L 3.7 - 5.3 mmol/L [place] Sodium [Moles/Vol] 141 mmol/L 135 - 144 mmol/L [place] Urea nitrogen [Mass/Vol] 10 mg/dL 6 - 20 mg/dL [place] CBC Auto Differentialon Basophils (Bld) [#/Vol] 0.03 10*3/uL [place] Basophils/100 WBC (Bld) 1 % 0 - 2 % [place] Differential Type NOT REPORTED [place] Eosinophils (Bld) [#/Vol] 0.15 10*3/uL [place] Eosinophils/100 WBC (Bld) 3 % 1 - 4 % [place] Erythrocyte distribution width (RBC) [Ratio] 12.4 % 11.8 - 14.4 % [place] Hematocrit (Bld) [Volume fraction] 41.3 % 36.3 - 47.1 % [place] Hemoglobin (Bld) [Mass/Vol] 13.3 g/dL 11.9 - 15.1 g/dL [place] Immature granulocytes (Bld) [#/Vol] 10*3/uL [place] Immature granulocytes (Bld) [#/Vol] 0 % 0 [place] Lymphocytes (Bld) [#/Vol] 1.91 10*3/uL [place] Lymphocytes/100 WBC (Bld) 39 % 24 - 43 % [place] MCH (RBC) [Entitic mass] 29.7 pg 25.2 - 33.5 pg [place] MCHC (RBC) [Mass/Vol] 32.2 g/dL 28.4 - 34.8 g/dL [place] MCV (RBC) [Entitic vol] 92.2 fL 82.6 - 102.9 fL [place] Monocytes (Bld) [#/Vol] 0.46 10*3/uL [place] Monocytes/100 WBC (Bld) 10 % 3 - 12 % [place] Platelet mean volume (Bld) [Entitic vol] 10.7 fL 8.1 - 13.5 fL [place] Platelets (Bld) [#/Vol] NOT REPORTED [place] Platelets (Bld) [#/Vol] 246 10*3/uL [place] RBC (Bld) [#/Vol] 4.48 10*6/uL 3.95 - 5.11 m/uL [place] RBC morphology finding Nom (Bld) NOT REPORTED [place] Segmented neutrophils/100 WBC (Bld) 47 % 36 - 65 % [place] Segs Absolute 2.29 [place] WBC (Bld) [#/Vol] 0.0 10*3/uL 0.0 per 100 WBC [place] WBC (Bld) [#/Vol] 4.9 10*3/uL [place] WBC Morphology NOT REPORTED [place] Iron And TIBCon 05-31-2019 Iron [Mass/Vol] 92 ug/dL 37 - 145 ug/dL [place] Iron Saturation 38 % 20 - 55 % [place] TIBC 243 ug/dL Low 250 - 450 ug/dL [place] UIBC 151 ug/dL 112 - 347 ug/dL [place] Otheron 05-31-2019 Interpretation and review of laboratory results Abnormal [place] Vitamin D 25 Hydroxyon 05-31 Vit D, 25-Hydroxy 20.9 ng/mL Low 30 - 100 ng/mL [place] Comment on above: Reference Range: Vitamin D status Range Deficiency <20 ng/mL Mild Deficiency 20-30 ng/mL Sufficiency 30-100 ng/mL Toxicity >100 ng/mL Vital Signs Date Time Vital Sign Value Performing Clinician Facility 11-21-2024 11:58-0500 Body mass index (BMI) [Ratio] 40.32 kg/m2 Catrachito Attila DO Work Phone: [facility] 11-21-2024 11:58-0500 Body weight 113.31 kg Catrachito Attila DO Work Phone: [facility] 11-21-2024 11:58-0500 Diastolic blood pressure 70 mm[Hg] Catrachito Attila DO Work Phone: [facility] 11-21-2024 11:58-0500 Systolic blood pressure 110 mm[Hg] Catrachito Attila DO Work Phone: [facility] 11-07-2024 13:51-0500 Body mass index (BMI) [Ratio] 40.03 kg/m2 Catrachito Attila DO Work Phone: [facility] 11-07-2024 13:51-0500 Body weight 112.49 kg Catrachito Attila DO Work Phone: [facility] 11-07-2024 13:51-0500 Diastolic blood pressure 72 mm[Hg] Catrachito Attila DO Work Phone: [facility] 11-07-2024 13:51-0500 Systolic blood pressure 120 mm[Hg] Catrachito Attila DO Work Phone: [facility] 10-01-2024 10:38-0500 Body mass index (BMI) [Ratio] 39.19 kg/m2 Catrachito Attila DO Work Phone: [facility] 10-01-2024 10:38-0500 Body weight 110.13 kg Catrachito Attila DO Work Phone: [facility] 10-01-2024 10:38-0500 Diastolic blood pressure 68 mm[Hg] Catrachito Attila DO Work Phone: [facility] 10-01-2024 10:38-0500 Systolic blood pressure 108 mm[Hg] Catrachito Attila DO Work Phone: [facility] 09-04-2024 10:33-0500 Body mass index (BMI) [Ratio] 37.92 kg/m2 Christen Reid MD Work Phone: [facility] 09-04-2024 10:33-0500 Body weight 109.86 kg Christen Reid MD Work Phone: [facility] 09-04-2024 10:33-0500 Diastolic blood pressure 69 mm[Hg] Christen Reid MD Work Phone: [facility] 09-04-2024 10:33-0500 Heart rate 84 /min Christen Reid MD Work Phone: [facility] 09-04-2024 10:33-0500 Systolic blood pressure 105 mm[Hg] Christen Reid MD Work Phone: [facility] 08-12-2024 14:16-0500 Body mass index (BMI) [Ratio] 38.58 kg/m2 Genevieve SOLITARIO Work Phone: [facility] 08-12-2024 14:16-0500 Body weight 108.41 kg Genevieve SOLITARIO Work Phone: [facility] 08-12-2024 14:16-0500 Diastolic blood pressure 72 mm[Hg] Genevieve SOLITARIO Work Phone: [facility] 08-12-2024 14:16-0500 Systolic blood pressure 120 mm[Hg] Genevieve SOLITARIO Work Phone: [facility] 07-16-2024 11:31-0400 Body mass index (BMI) [Ratio] 38.54 kg/m2 Catrachito Attila DO Work Phone: [facility] 07-16-2024 11:31-0400 Body weight 108.32 kg Catrachito Attila DO Work Phone: [facility] 07-16-2024 11:31-0400 Diastolic blood pressure 64 mm[Hg] Catrachito Attila DO Work Phone: [facility] 07-16-2024 11:31-0400 Systolic blood pressure 110 mm[Hg] Catrachito Attila DO Work Phone: [facility] 07-05-2024 11:45-0400 Body height 170.2 cm Mishel Segovia MD Work Phone: [facility] 07-05-2024 11:45-0400 Body mass index (BMI) [Ratio] 36.83 kg/m2 Mishel Segovia MD Work Phone: [facility] 07-05-2024 11:45-0400 Body weight 106.69 kg Mishel Segovia MD Work Phone: [facility] 07-05-2024 11:45-0400 Diastolic blood pressure 69 mm[Hg] Mishel Segovia MD Work Phone: [facility] 07-05-2024 11:45-0400 Heart rate 86 /min Mishel Segovia MD Work Phone: [facility] 07-05-2024 11:45-0400 Systolic blood pressure 128 mm[Hg] Mishel Segovia MD Work Phone: [facility] 06-17-2024 11:46-0400 Body mass index (BMI) [Ratio] 37.9 kg/m2 Catrachito Attila DO Work Phone: [facility] 06-17-2024 11:46-0400 Body weight 106.5 kg Catrachito Attila DO Work Phone: [facility] 06-17-2024 11:46-0400 Diastolic blood pressure 78 mm[Hg] Catrachito Attial DO Work Phone: [facility] 06-17-2024 11:46-0400 Systolic blood pressure 116 mm[Hg] Catrachito Attila DO Work Phone: [facility] 05-31-2024 11:30-0400 Body mass index (BMI) [Ratio] 36.74 kg/m2 Lexi Robertson MD Work Phone: [facility] 05-31-2024 11:30-0400 Body weight 106.41 kg Lexi Robertson MD Work Phone: [facility] 05-23-2024 15:41-0400 Body mass index (BMI) [Ratio] 41.48 kg/m2 Sandrita Bowers CN Work Phone: [facility] 05-23-2024 15:41-0400 Body weight 116.57 kg Sandrita Bowers CN Work Phone: [facility] 04-29-2024 13:25-0400 Diastolic blood pressure 82 mm[Hg] [facility] 04-29-2024 13:25-0400 Heart rate 80 /min [facility] 04-29-2024 13:25-0400 Respiratory rate 16 /min [facility] 04-29-2024 13:25-0400 SaO2% (BldA) [Mass fraction] 99 % [facility] 04-29-2024 13:25-0400 Systolic blood pressure 145 mm[Hg] [facility] 04-29-2024 10:53-0400 Body temperature 97.4 [degF] [facility] 04-29-2024 10:28-0400 Inhaled oxygen flow rate 2 L/min [facility] 04-29-2024 06:46-0400 Body height 170.18 cm [facility] 04-29-2024 06:46-0400 Body mass index (BMI) [Ratio] 37.6 kg/m2 [facility] 04-29-2024 06:46-0400 Body weight 109 kg [facility] 04-19-2024 09:11-0400 Body height 172.72 cm [facility] 04-19-2024 09:11-0400 Body mass index (BMI) [Ratio] 35.9 kg/m2 [facility] 04-19-2024 09:11-0400 Body weight 107 kg [facility] 02-15-2024 11:55-0400 Body height 172.72 cm [facility] 02-15-2024 11:55-0400 Body mass index (BMI) [Ratio] 36.1 kg/m2 [facility] 02-15-2024 11:55-0400 Body weight 107.95 kg [facility] Encounters Encounter Date Encounter Type Care Provider Facility Start: 11-28-2024 End: 11-28-2024 ambulatory CATRACHITO R [facility] Start: 11-27-2024 End: 11-27-2024 Chart abstracting Scanning Provider External [facility] Start: 11-25-2024 End: 11-25-2024 Clinisync Result Encounter [...] flow sheet Catrachito Attila DO Work Phone: [facility] Comment on above: Third trimester preg dami; 30 weeks gestation of ; with IUD in place, antepartum, first trimester Start: 11-06-2024 ambulatory None Provider Facility: [facility] Start: 10-25-2024 End: 10-25-2024 Clinisync Result Encounter Catrachito Attila DO Work Phone: [facility] External Department Unsolicited Start: 10-25-2024 End: 10-25-2024 Clinisync Result Encounter Catrachito Attila DO Work Phone: [facility] External Department Unsolicited Start: 10-15-2024 End: 10-15-2024 ambulatory CATRACHITO R [facility] Start: 10-01-2024 End: 10-01-2024 Bamboo flowsheet Catrachito Attila DO Work Phone: [facility] Start: 10-01-2024 End: 10-01-2024 Bamboo flowsheet Catrachito Attila DO Work Phone: [facility] Start: 10-01-2024 End: 10-01-2024 flow sheet Catrachito Attila DO Work Phone: [facility] Comment on above: Second trimester pre gnancy; 25 weeks gestation of ; with normal glucose tolerance test (GTT); Diabetes mellitus screening; Retained intrauterine device (IUD) during in second trimester Start: 10-01-2024 End: 10-01-2024 ambulatory CATRACHITO ATTILA Not Available Start: 09-04-2024 End: 09-04-2024 Office outpatient visit 25 minutes Lexi Robertson MD Work Phone: [facility] Comment on above: 21 weeks gestation o f (Primary Dx); Retained intrauterine device (IUD) during in second trimester; History of gastric bypass; Obesity affecting in second trimester, unspecified obesity type; with history of section, antepartum; Multigravida of advanced maternal age in second trimester Start: 09-04-2024 End: 09-04-2024 ambulatory [facility] Comment on above: 21 weeks gestation [...] Clinisync Result Encounter Genevieve SOLITARIO Work Phone: [facility] External Department Unsolicited Start: 08-12-2024 End: 08-12-2024 flow sheet Genevieve SOLITARIO Work Phone: [facility] Comment on above: Exposure to STD; Need for maternal serum alpha-protein (MSAFP) screening; Screening, , for anatomic survey; Second trimester ; 18 weeks gestation of Start: 08-12-2024 End: 08-12-2024 ambulatory GENEVIEVE ODNOVAN Not Available Start: 07-17-2024 End: 07-17-2024 ambulatory NON STAFF [facility] Work Phone: Start: 07-17-2024 End: 07-17-2024 Patient encounter procedure [facility] Work Phone: Start: [...] trimester Start: 07-10-2024 End: 07-10-[address] Start: 07-08-2024 End: 07-08-2024 Orders Only Not In System Ref Prov [facility]aternal- Medicine at [facility] Start: 07-05-2024 End: 07-05-2024 Office outpatient visit 40 minutes Mishel Segovia MD Work Phone: Maternal- Medicine at [facility] Comment on above: Retained intrauterin e device [...] gestation of Start: 07-05-2024 End: 07-05-2024 [facility]ulatory [facility] Comment on above: Retained intrauterin [...] 06-17-2024 End: 06-17-2024 Clinisync Result Encounter Catrachito Villatoroo DO Work Phone: [facility] External Department Unsolicited Start: 06-17-2024 End: 06-17-2024 flow sheet Catrachito Villatoroo DO Work Phone: [facility] Comment on above: Missed menses; Encounter for supervision of normal first in first trimester; , unspecified gestational age; Encounter for screening for cervical length; complicated by intrauterine device (IUD); induced hypertension, antepartum; Multigravida of advanced maternal age in first trimester Start: 06-17-2024 End: 06-17-2024 ambulatory CATRACHITO AIKEN Not Available Start: 06-11-2024 End: 06-11-2024 ambulatory NON STAFF [facility] Work Phone: Start: 06-11-2024 End: 06-11-2024 Patient encounter procedure MD Santa Estrada II Work Phone: [facility] Work Phone: Start: 05-31-2024 End: 05-31-2024 Office consultation new/estab patient 60 min Lexi Robertson MD Work Phone: Maternal- Medicine at [facility] Comment on above: Retained intrauterin e device (IUD) during in first trimester (Primary Dx) Start: 05-31-2024 End: 05-31-2024 ambulatory CATRACHITO R ATTILA [facility] Comment on above: Retained intrauterin e device (IUD) during in first trimester (Primary Dx) Start: 05-29-2024 End: 05-29-2024 Chart abstracting Lexi Robertson MD Work Phone: Maternal- Medicine at [facility] Start: 05-23-2024 End: 05-23-2024 ambulatory SANDRITA BOWERS Not Available Start: 05-23-2024 End: 05-23-2024 Office [...] Start: 05-22-2024 End: 05-22-2024 Telephone encounter Sandrita Romelia Joseo CNM Work Phone: [facility] Start: 05-15-2024 End: 05-15-2024 ambulatory NON STAFF [facility] Work Phone: Start: 05-15-2024 End: 05-15-2024 Patient encounter procedure [facility] Work Phone: Start: 04-29-2024 Non-patient / Non-visit [facility] Work Phone: Start: 04-29-2024 End: 04-29-2024 Admission to same day surgery center [facility] [place] Start: 04-29-2024 End: 04-29-2024 ambulatory NON STAFF [facility] Work Phone: Start: 04-25-2024 End: 04-25-2024 ambulatory SANDRITA L FLORO Not Available Start: 04-19-2024 End: 04-19-2024 ambulatory NON STAFF [facility] Work Phone: Start: 04-19-2024 End: 04-19-2024 Patient encounter procedure [facility] Work Phone: Start: 04-19-2024 End: 04-19-2024 Discharged Recurring MD Santa Estrada II Work Phone: [facility] Ctr-Physical Therapy [facility] [place] Start: 04-19-2024 [facility]istered [facility] [place] Start: 04-19-2024 End: 04-19-2024 ambulatory NON STAFF [facility] Work Phone: Start: 04-19-2024 End: 04-19-2024 Patient encounter procedure [facility] Work Phone: Start: 04-16-2024 End: 04-16-2024 ambulatory SANDRITA JOSENina Not Available Start: 04-15-2024 End: 04-15-2024 Patient encounter procedure [facility] Work Phone: Start: 04-15-2024 End: 04-15-2024 ambulatory NON STAFF [facility] Ctr Work Phone: Start: 03-13-2024 End: 03-13-2024 ambulatory [facility] Facility:[facility] SURG [facility] Start: 03-12-2024 End: 03-12-2024 Patient encounter procedure [facility] Ctr-Lab [facility] [place] Work Phone: Start: 03-12-2024 End: 03-12-2024 ambulatory NON STAFF [facility] Ctr Work Phone: Start: 02-29-2024 End: 02-29-2024 ambulatory SANTA ESTRADA [facility] Start: 02-27-2024 End: 02-27-2024 ambulatory NON STAFF [facility] Ctr Work Phone: Start: 02-27-2024 End: 02-27-2024 Departed Referred [facility] Ctr-LAB [facility] Start: 02-26-2024 End: 02-27-2024 ambulatory [facility] Facility:[facility] SUR[facility] Start: 02-15-2024 End: 02-15-2024 ambulatory NON STAFF [facility] Work Phone: Start: 02-15-2024 End: 02-15-2024 Patient encounter procedure [facility] Work Phone: Start: 02-01-2024 End: 02-01-2024 ambulatory VICTOR M LUJAN Not Available Start: 01-25-2024 End: 01-26-2024 ambulatory Audra Reynoso ANESTHESIOLOGIST ASSISTANT-[employer] EXCHANGE ADMINISTRATOR Facility:[facility] Start: 01-12-2024 End: 01-13-2024 ambulatory Alec Patel MD Facility:[facility] Start: 01-05-2024 End: 01-06-2024 ambulatory Audra Reynoso ANESTHESIOLOGIST ASSISTANT-[employer] EXCHANGE ADMINISTRATOR Facility:[facility] Start: 12-15-2023 End: 12-15-2023 ambulatory VICTOR M LUAJN Not Available Start: 08-23-2023 End: 08-23-2023 ambulatory [facility] Start: 07-11-2023 End: 07-11-2023 ambulatory [facility] Start: 09-01-2022 End: 09-01-2022 ambulatory [facility] Start: 09-01-2022 End: 09-01-2022 Encounter for antibody response examination [facility] Start: 10-14-2021 End: 10-15-2021 ambulatory [facility] Start: 10-13-2021 ambulatory [facility] Start: 04-02-2020 End: 04-02-2020 Subsequent hospital [...] Catrachito Fazi o DO Work Phone: Start: 02-27-2025 US OB BPP W NON-STRESS Catrachito Attila [...] Start: 06-11-2024 X-ray of left knee MD R mckinley Sean II Work Phone: Start: 05-23-2024 Urine test visual color cmprsn meths Sandrita Bowers [facility] Work Phone: Start: 04-29-2024 X-ray of left [...] hin layer prep mnl screen Sandrita Bowers [facility] Work Phone: Start: 04-15-2024 Antibody screen Comment on above: Order Comment: Date of Surgery: [id number] Result Comment: PERF ORMED BY: [facility] [address] [facility] [place] [address] PATHOLOGIST SENIOR ELECTRICAL ESTIMATOR GENO BENEDICT M.D. Start: 03-12-2024 Methicillin resistan [...] Td Vaccines (3 - Td or Tdap) [facility] Biogenic Re[facility] Start: 04-16-2029 Screening for malign ant neoplasm of cervix [facility] Start: 04-16-2027 Screening for malign ant neoplasm of cervix [facility] Start: 09-04-2025 Adult BMI Screening Adult [facility] Screen ing [facility] Start: 09-04-2025 Tobacco Screening [facility]ening [facility] Start: 09-04-2025 End: 09-04-2025 US MFM with or without consult US MFM with or without consult Imaging Routine 21 weeks gestation of Retained intrauterine device (IUD) during in second trimester History of gastric bypass Multigravida of advanced maternal age in second trimester Expected: 09/04/2025 (Approximate), Expires: 09/04/2025 [facility] Work Phone: Comment on above: Expected: 09/04/2025 (Approximate), Expires: 09/04/2025 Start: 07-05-2025 Adult BMI Screening [facility] Start: 07-05-2025 Tobacco Screening [facility]ening [facility] Start: 07-05-2025 End: 07-05-2025 US MFM with or without consult US MFM with or without consult Imaging Routine Retained intrauterine device (IUD) during in second trimester BMI 36.0-36.9,adult Multigravida of advanced maternal age in second trimester Expected: 07/05/2025 (Approximate), Expires: 07/05/2025 [facility] Work Phone: Comment on above: Expected: 07/05/2025 (Approximate), Expires: 07/05/2025 Start: 05-31-2025 Adult BMI Screening Adult BMI Screen ing [facility] Start: 05-31-2025 End: 05-31-2025 US MFM with or without consult US MFM with or without consult Imaging Routine Retained intrauterine device (IUD) during in first trimester Expected: 05/31/2025 (Approximate), Expires: 05/31/2025 [facility] Work Phone: Comment on above: Expected: 05/31/2025 (Approximate), Expires: 05/31/2025 Start: 12-12-2024 End: 12-12-2024 Patient encounter procedure 12/12/2024 10:20 AM EDT Routine [facility] [address] [place] [phone] Genevieve Donovan PA [address] [place], [place] [id number] [facility] Start: 11-28-2024 End: 11-28-2024 Patient encounter procedure 11/28/2024 9:45 AM EST Appointment [facility] [address] [facility] [address] [place] [address] [facility] Start: 11-21-2024 End: 11-21-2025 US for US [...] AM EST Routine [facility] [address] [place] [phone] Catrachito Aiken DO [address] [place] [address] [facility] Start: 10-31-2024 End: 10-31-2024 Patient encounter procedure 10/31/2024 8:30 AM EST Routine [facility] [address] [place] [phone] Genevieve Donovan PA [address] [place] [address] [facility] Start: 10-15-2024 End: 10-15-2024 Patient encounter procedure 10/15/2024 10:00 AM EST Appointment [facility] - Ultrasound [address] [place] [address] [facility] Start: 10-01-2024 End: 10-01-2025 CBC panel - Blood by Automated count CBC Lab Routine Diabetes mellitus screening Expected: 10/01/2024 (Approximate), Expires: 10/01/2025 [facility] Work Phone: Comment on above: Expected: 10/01/2024 (Approximate), Expires: 10/01/2025 Start: 10-01-2024 End: 10-01-2024 Patient encounter procedure 10/01/2024 9:50 AM EST Routine [facility] [address] [place] [phone] Catrachito Aiken, DO [address] [place] [address] Arrived [facility] Comment on above: Arrived Start: 09-11-2024 End: 09-11-2024 Alpha fetoprotein, maternal Alpha fetoprotein, maternal Lab Routine Need for maternal serum alpha-protein (MSAFP) screening Expected: 09/11/2024 (Approximate), Expires: 09/11/2024 [facility] Comment on above: Expected: 09/11/2024 (Approximate), Expires: 09/11/2024 Start: 09-09-2024 End: 09-09-2024 Patient encounter procedure 09/09/2024 2:00 PM EST Routine [facility] [address] [place] [phone] Catrachito Aiken, DO [address] [place] [address] [facility] Start: 09-04-2024 Adult BMI Screening Adult BMI Screen ing [facility] Start: 09-04-2024 Tobacco Screening Tobacco Screening [facility] Start: 08-20-2024 End: 08-20-2024 Patient encounter procedure [facility] Start: 08-14-2024 End: 08-14-2024 Patient encounter procedure 08/14/2024 1:30 PM EST Routine [facility] [address] [place] [phone] Genevieve Donovan PA [address] [place] [address] [facility] Start: 07-16-2024 End: 07-16-2024 Patient encounter procedure 07/16/2024 11:10 AM EDT Routine [facility] [address] [place] [phone] Catrachito Aiken, DO [address] [place] [address] [facility] Start: 07-05-2024 End: 07-05-2024 Patient encounter procedure [facility] Start: 06-21-2024 End: 06-21-2024 Professional / ancillary services management 06/21/2024 10:30 AM EDT Ancillary Procedure [facility] [address] [place] [address] [facility] Start: 06-18-2024 End: 06-18-2024 Patient encounter procedure 06/18/2024 2:00 PM EDT Office [facility] [address] [place] [address] Sandrita Bowers CNM [address] [place], [place] [id number] [facility] Start: 06-17-2024 End: 06-17-2025 ABO/Rh ABO/Rh Lab Routine Missed menses Expected: 06/17/2024 (Approximate), Expires: 06/17/2025 [facility] Comment on above: Expected: 06/17/2024 (Approximate), Expires: 06/17/2025 Start: 06-17-2024 End: 06-17-2025 Alanine aminotransferase [Enzymatic activity/volume] in Serum or Plasma ALT Lab Routine Multigravida of advanced maternal age in first trimester Expected: 06/17/2024 (Approximate), Expires: 06/17/2025 [facility] Comment on above: Expected: 06/17/2024 (Approximate), Expires: 06/17/2025 Start: 06-17-2024 End: 06-17-2025 Aspartate aminotransferase [Enzymatic activity/volume] in Serum or Plasma AST Lab Routine Multigravida of advanced maternal age in first trimester Expected: 06/17/2024 (Approximate), Expires: 06/17/2025 [facility] Comment on above: Expected: 06/17/2024 (Approximate), Expires: 06/17/2025 Start: 06-17-2024 End: 06-17-2025 Blood type and Indirect antibody screen panel - Blood Type and screen Lab Routine Missed menses Expected: 06/17/2024 (Approximate), Expires: 06/17/2025 [facility] Work Phone: Comment on above: Expected: 06/17/2024 (Approximate), Expires: 06/17/2025 Start: 06-17-2024 End: 06-17-2025 CBC W Auto Differential panel - Blood [facility] Comment on above: Ordered: 06/17/2024 Expected: 06/17/2024 (Approximate), Expires: 06/17/2025 Start: 06-17-2024 End: 06-17-2025 Creatinine [Mass/volume] in Serum or Plasma Creatinine Lab Routine Multigravida of advanced maternal age in first trimester Expected: 06/17/2024 (Approximate), Expires: 06/17/2025 [facility] Comment on above: Expected: 06/17/2024 (Approximate), Expires: 06/17/2025 Start: 06-17-2024 End: 06-17-2025 Drugs of abuse panel - Urine by Screen method Rapid drug screen, urine Lab Routine Missed menses Encounter for supervision of normal first in first trimester , unspecified gestational age Expected: 06/17/2024 (Approximate), Expires: 06/17/2025 [facility] Comment on above: Expected: 06/17/2024 (Approximate), Expires: 06/17/2025 Start: 06-17-2024 End: 06-17-2025 Lactate dehydrogenase [Enzymatic activity/volume] in Serum or Plasma by Lactate to pyruvate reaction Lactate dehydrogenase Lab Routine Multigravida of advanced maternal age in first trimester Expected: 06/17/2024, Expires: 06/17/2025 [facility] Comment on above: Expected: 06/17/2024 , Expires: 06/17/2025 Start: 06-17-2024 End: 06-17-2025 Protein, urine, 24 hour Protein, urine, 24 hour Lab Routine Multigravida of advanced maternal age in first trimester Expected: 06/17/2024 (Approximate), Expires: 06/17/2025 [facility] Comment on above: Expected: 06/17/2024 (Approximate), Expires: 06/17/2025 Start: 06-17-2024 End: 06-17-2025 Pt and ptt Pt and ptt Lab Routine Multigravida of advanced maternal age in first trimester Expected: 06/17/2024, Expires: 06/17/2025 [facility] Comment on above: Expected: 06/17/2024 , Expires: 06/17/2025 Start: 06-17-2024 End: 06-17-2025 Urate [Mass/volume] in Serum or Plasma Uric acid Lab Routine Multigravida of advanced maternal age in first trimester Expected: 06/17/2024 (Approximate), Expires: 06/17/2025 [facility] Comment on above: Expected: 06/17/2024 (Approximate), Expires: 06/17/2025 Start: 06-17-2024 End: 06-17-2025 Urea nitrogen [Mass/volume] in Serum or Plasma BUN Lab Routine Multigravida of advanced maternal age in first trimester Expected: 06/17/2024, Expires: 06/17/2025 [facility] Comment on above: Expected: 06/17/2024 , Expires: 06/17/2025 Start: 06-17-2024 End: 06-17-2025 US Pelvis transvaginal US OB transvaginal Imaging Routine complicated by intrauterine device (IUD) Expected: 06/17/2024 (Approximate), Expires: 06/17/2025 [facility] Comment on above: Expected: 06/17/2024 (Approximate), Expires: 06/17/2025 Start: 06-17-2024 End: 06-17-2024 Patient encounter procedure 06/17/2024 10:50 AM EDT Routine [facility] [address] [place] [phone] Catrachito Aiken, DO [address] [place] [address] Arrived [facility] Comment on above: Arrived Start: 06-11-2024 X-ray of left knee XR knee LT 3V - NOT FOR ER USE [facility] Start: 06-11-2024 XR Knee - left 3 Views [facility] Start: 05-31-2024 End: 05-31-2024 Patient encounter procedure [facility] Start: 05-26-2024 COVID-19 Vaccine ( season) COVID-19 Vaccine ( season) [facility] Start: 05-26-2024 COVID-19 Vaccine ( season) COVID-19 Vaccine ( season) [facility] Start: 05-26-2024 Influenza vaccination [facility] Start: 05-23-2024 End: 05-23-2024 Professional / ancillary services management 05/23/2024 3:45 PM EDT Ancillary Procedure [facility] [address] [facility] [place] [facility] [place] [phone] [facility] Start: 05-23-2024 End: 05-23-2024 ambulatory 05/23/2024 3:30 PM EDT Initial [facility] [address] [facility] [place] [address] Sandrita Bowers, CNM [address] [place] [address] Arrived [facility] Comment on above: Arrived Start: 04-29-2024 Hospital admission [facility] Start: 04-29-2024 End: 04-29-2024 [facility] Start: 04-29-2024 Physical therapy procedure [facility] Start: 04-19-2024 Plain X-ray of left femur XR femur L T 2V* [facility] Start: 04-19-2024 Plain X-ray of left tibia and left fibula XR tibia fibula LT 2V* [facility] Start: 04-19-2024 XR Femur - left 2 Views [facility] Start: 04-19-2024 XR Tibia and Fibula - left 2 Views [facility] Start: 04-15-2024 [facility] Start: 03-12-2024 MRSA Culture MRSA Culture [facility] Start: 02-15-2024 Pelvis X-ray XR pelvis 1-2V [facility] Start: 02-15-2024 Radiologic examinati on of knee XR knee LT 4V* [facility] Start: 02-15-2024 XR Knee - left 4 Views [facility] Start: 02-15-2024 XR Pelvis 1 or 2 Views [facility] Start: 07-02-2022 DTaP/Tdap/Td vaccine (2 - Td) DTaP/Tdap/Td vaccine (2 - Td) [place] Start: 05-26-2020 Influenza vaccination Flu vaccine (# 1) [place] Start: 04-21-2020 End: 04-21-2020 Office Visit 04/21/2020 Office Visit Obstetrics and Gynecology Karel Palm DO [address] [place] [address] [phone] [facility] 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[employer] Start: 05-26-2019 Influenza vaccination Flu vaccine (# 1) [place], [place] Start: 2018 Screening for malign ant neoplasm of cervix [facility] Start: 2009 Cervical cancer screen Cervical canc er screen [place], [place] Start: 2009 Screening for malign ant neoplasm of cervix [facility] Start: 2007 DTaP/Tdap/Td vaccine (1 - Tdap) DTaP/Tdap/Td vaccine (1 - Tdap) [place] Start: 2006 Adult BMI Follow Up Plan Adult BMI Follow Up Plan [facility] Start: 2003 [facility] [place] [place] Start: 2003 [facility] screening [facility] [place] Start: 2001 Varicella Vaccine (1 of 2 - 13+ 2-dose series) Varicella Vaccine (1 of 2 - 13+ 2-dose series) [place], [place] Start: 2000 Depression Screening Depression Scre [facility] Start: 1989 Varicella vaccine (1 of 2 - 2-dose childhood series) Varicella vaccine (1 of 2 - 2-dose childhood series) [place] Bacteria identified in Urine by Culture Urine culture Microbiology Routine Missed menses Ordered: 06/17/2024 [facility] Comment on above: Ordered: 06/17/2024 CHLAMYDIA TRACHOMATI S (GENITO/STI) CHLAMYDIA TRACHOMATIS (GENITO/STI) Lab Routine Exposure to STD Ordered: 08/12/2024 [facility] Comment on above: Ordered: 08/12/2024 End: 05-31-2019 Cobalamin (Vitamin B12) [Mass/Vol] Vitamin B12 Lab Routine History of bariatric surgery 1 Occurrences starting 05/31/2019 until 05/31/2019 [place], [place] Comment on above: 1 Occurrences starti ng 05/31/2019 until 05/31/2019 Cobalamin (Vitamin B 12) [Mass/Vol] Vitamin B12 Lab Routine History of bariatric surgery 05/31/2019 8:42 AM EDT [place] Cotinine [Mass/volum e] in Serum or Plasma [facility] Cotinine [Mass/volum e] in Serum or Plasma [facility] End: 04-02-2020 Covid-19 Ambulatory Covid-19 Ambulatory Lab Routine Once for 1 Occurrences starting 04/02/2020 until 04/02/2020 [place] Comment on above: Once for 1 Occurrenc es starting 04/02/2020 until 04/02/2020 Covid-19 Ambulatory Covid-19 Amb ulatory Lab Routine 04/02/2020 10:12 PM EDT [place] Glucose measurement estimated from glycated hemoglobin [facility] Hemoglobin A1c/Hemoglobin.total in Blood Hemoglobin A1c Lab Routine Missed menses Ordered: 06/17/2024 [facility] Comment on above: Ordered: 06/17/2024 Hepatitis B virus herr rface Ag [Presence] in Serum or Plasma by Immunoassay Hepatitis B surface antigen Lab Routine Missed menses Ordered: 06/17/2024 [facility] Comment on above: Ordered: 06/17/2024 Hepatitis C virus Ab [Presence] in Serum or Plasma by Immunoassay Hepatitis C antibody Lab Routine Missed menses Ordered: 06/17/2024 [facility] Comment on above: Ordered: 06/17/2024 HIV-1/HIV-2 antigen/antibody combination immunoassay HIV-1 and HIV-2 antibodies Lab Routine Missed menses Ordered: 06/17/2024 [facility] Comment on above: Ordered: 06/17/2024 Methicillin resistan t Staphylococcus aureus [Presence] in Unspecified specimen by Organism specific culture [facility] MR Knee - left WO contrast F [facility] Neisseria gonorrhoea e DNA [Presence] in Unspecified specimen by SORIN with probe detection Neisseria gonorrhea DNA probe, direct Lab Routine Exposure to STD Ordered: 08/12/2024 [facility] Comment on above: Ordered: 08/12/2024 Nicotine [Mass/volum e] in Serum or Plasma [facility] Nicotine [Mass/volum e] in Serum or Plasma [facility] Patient Education Know your Meds [facility] Work Phone: Reagin Ab [Presence] in Serum by RPR RPR Lab Routine Missed menses Ordered: 06/17/2024 [facility] Comment on above: Ordered: 06/17/2024 Rubella antibody, IgG Rubella an tibody, IgG Lab Routine Missed menses Ordered: 06/17/2024 [facility] Comment on above: Ordered: 06/17/2024 SURESWAB(R) ADVANCED VAGINITIS PLUS, TMA SURESWAB(R) ADVANCED VAGINITIS PLUS, TMA Pathology and Cytology Routine Exposure to STD Ordered: 08/12/2024 [facility] Work Phone: Comment on above: Ordered: 08/12/2024 End: 03-31-2025 US for US OB follow up transabdominal approach Imaging Routine Retained intrauterine device (IUD) during in second trimester every 4 weeks for 4 Occurrences starting 10/01/2024 until 03/31/2025 [facility] Comment on above: every 4 weeks for 4 Occurrences starting 10/01/2024 until 03/31/2025 [facility] Immunizations Immunization Date Immunization Notes Care Provider Marty cerna 07-10-2024 influenza virus vaccine, unspecified formulation Catrachito Aiken DO Work Phone: [facility] 07-29-2021 COVID-19 mRNA-1273 (Moderna) [facility] 10-29-2020 COVID-19 mRNA-1273 (Moderna) [facility] 10-01-2020 COVID-19 mRNA-1273 (Moderna) [facility] 06-30-2020 influenza virus vaccine, unspecified formulation Sandrita Floro CN Work Phone: [facility] 07-03-2019 influenza virus vaccine, unspecified formulation Yesica Mineola [place], [place] 06-05-2017 influenza, seasonal, injectable Sandrita Floro CN Work Phone: [facility] 05-12-2017 influenza, injectabl e, quadrivalent, preservative free Sandrita Floro CN Work Phone: [facility] 07-02-2012 tetanus toxoid, redu [place] diphtheria toxoid, and acellular pertussis vaccine, adsorbed Yesica Khan [facility] 05-18-2001 measles, mumps and rubella virus vaccine Sandrita Bowers MILADY Work Phone: [facility] Healthcare Payers Date Payer Category Payer Commercial Managed C are - HMO [id number] 2024 Managed Care HMO (unspecified) [id number] 2024 Unknown [id number] 2024 Self-pay [id number] 2023 Blue Cross Blue Shield BCBS [facility] ..[id number] .[id number] 2023 Unknown 2023 Unknown [id number] 2022 Unknown [id number] 2020 Unknown [id number] 2018 Unknown MEDICAL MUTUAL M EDICAL M[employer]UAL [facility] [employer] [facility] xxxxxxxxxxxx 2018-Present [phone] [address] [place] [address] xxxxxxxxxxxx [id number] .[id number] 2018 Medicaid [id number] 2014 Unknown [employer]AMOUNT ADVANT [employer]GE PAR[employer]OUNT [employer]VANTAGE xxxxxxxxxxx 2014-Present [phone] [address] [place] [address] xxxxxxxxxxx 1.2.840.433201.1.13.239.2 .7.3.615451.315 1988 Unknown [id number] 2.16.840.1.129021.3.579.2 .196 1988 Unknown [id number] 2.16.840.1.143022.3.579.2 .196 1988 Unknown [id number] 2.16.840.1.704925.3.579.2 .196 1988 Unknown [id number] 2.16.840.1.395019.3.579.2 .1286 1988 Unknown [id number] 2.16.840.1.159699.3.579.2 .1286 1988 Unknown [id number] 2.16.840.1.663062.3.579.2 .1286 1988 Unknown [id number] 2.16.840.1.680372.3.579.2 .1286 1988 Unknown [id number] 2.16.840.1.462932.3.579.2 .1286 1988 Unknown [id number] 2.16.840.1.971045.3.579.2 .1286 1988 Unknown [id number] 2.16.840.1.559771.3.579.2 .1286 1988 Unknown [id number] 2.16.840.1.321226.3.579.2 .1286 1988 Unknown [id number] 2.16.840.1.078744.3.579.2 .1286 1988 Unknown [id number] 2.16.840.1.474235.3.579.2 .718 1988 Unknown [id number] 2.16.840.1.837008.3.579.2 .718 1988 Unknown [id number] 2.16.840.1.392013.3.579.2 .718 1988 Unknown [id number] 2.16.840.1.465526.3.579.2 .718 1988 Unknown [id number] 2.16.840.1.507629.3.579.2 .718 1988 Unknown [id number] 2.16.840.1.598333.3.579.2 .8 1988 Unknown [id number] 2.16.840.1.059447.3.579.2 .1988 Unknown [id number] 2.16.840.1.779859.3.579.2 .718 1988 Unknown [id number] 2.16.840.1.952910.3.579.2 .9 1988 Unknown [id number] 2.16.840.1.284392.3.579.2 .9 1988 Unknown [id number] 2.16.840.1.781527.3.579.2 .1258 1988 Unknown [id number] 2.16.840.1.087819.3.579.2 .9 1988 Unknown [id number] 2.16.840.1.202608.3.579.2 .9 1988 Unknown [id number] 2.16.840.1.650790.3.579.2 .9 1988 Unknown [id number] 2.16.840.1.846108.3.579.2 .9 1988 Unknown [id number] 2.16.840.1.617557.3.579.2 .1259 1988 Unknown [id number] 2.16.840.1.830461.3.579.2 .9 1988 Unknown [id number] 2.16.840.1.055750.3.579.2 .9 1988 Unknown [id number] 2.16.840.1.766928.3.579.2 .1258 1988 Unknown [id number] 2.16.840.1.935778.3.579.2 .9 1988 Unknown [id number] 2.16.840.1.777881.3.579.2 .9 1988 Unknown [id number] 2.16.840.1.718091.3.579.2 .9 1988 Unknown [id number] 2.16.840.1.183388.3.579.2 .1286 Unknown [facility] Employees [id number] [facility] [id number] Unknown [id number] 2.16.840.1.624807.3.579.2 .531 Unknown [id number] 2.16.840.1.282965.3.579.2 .531 Unknown [id number] 2.16.840.1.741338.3.579.2 .531 Unknown [id number] 2.16840.1.108676.3.579.2 .531 Social History Date Type Detail Facility Start: 05-17-2019 End: 01-03-2020 Tobacco smoking status NHIS Former smoker [place] Start: 05-17-2019 End: 11-04-2020 Cigarettes smoked current (pack per day) - Reported [place] Start: 05-17-2019 End: 11-04-2020 Alcohol intake Yes [place] Start: 05-17-2019 Alcohol Comment social [place], [place] Start: 1990 Sex Assigned At [facility] file [facility] Start: 01-03-2020 End: 11-21-2024 Alcohol intake Current drinker of [facility] (finding) [facility] Start: 07-29-2016 End: 11-14-2019 Tobacco smoking status NHIS Never smoked tobacco (finding) [facility] Start: 1990 Sex Assigned At Female F [facility] Start: 07-29-2016 End: 04-20-2023 Tobacco use and exposure Smokeless tobacco non-user [facility] Start: 04-21-2024 [facility] Unknown [facility] Start: 07-29-2016 Alcohol Comment 1-2 drinks per month [facility] Start: 07-05-2024 End: 09-04-2024 Alcoholic beverage intake Ex-drinker (finding) [facility] Start: 04-30-2015 Sex Female (finding) [facility] NEGATED: Highlighted row [facility] Medical Equipment Procedure Code Equipment Code Equipment Origin al Text Equipment Identifier Dates Arthroplasty, knee, total, minimally invasive Uncoated unicondylar knee femur prosthesis [id number] FDA Start: 04-29-2024 Arthroplasty, knee, total, minimally invasive Uncoated unicondylar knee tibia prosthesis, metallic ()[id number] FDA Start: 04-29-2024 Arthroplasty, knee, total, minimally invasive Unicondylar knee insert ()[id number] FDA Start: 04-29-2024 Arthroplasty, knee, total, minimally invasive Orthopaedic cement, non-medicated ()[id number] FDA Start: 04-29-2024 1 strip by In Vi tro route Daily Use in the morning prior to breakfast, 1 hour after each meal for a total of 4times daily. [id number] Start: 07-08-2024 End: 08-07-2024 1 each by In Vit ro route Daily Use to check FSBS four times daily [id number] Start: 07-08-2024 End: 08-07-2024 Goals Date Patient Goal Desired Activity /State Clinical Notes 07-11-2023 to 11-21-2024 Mariaelena Machado, DRYWALL SANDER - 11/21/2024 11:50 AM Chapito Machado, DRYWALL SANDER - 11/07/2024 1:30 PM ORACIOVikki Phillip, DRYWALL SANDER - 10/01/2024 9:50 AM Nicki Reid MD [...] nursing note reviewed. Exam conducted with a resin shaver present. Vitals: Estimated body mass index is [...] on Monday, but encouraged to report to [facility] at this time to have [...] Catrachito Aiken DO documented in this encounter [facility] 11-07-2024 History of Present illness Narrative Reason [...] nursing note reviewed. Exam conducted with a resin shaver present. Vitals: Estimated body mass index is [...] Catrachito Aiken DO documented in this encounter [facility] 11-06-2024 Note Patient Education Ma terials Follows: [...] or lying down. General instructions ? Take rgpx-qpu-wxdrjeh and prescription medicines only as told by [...] provider. Document Revised: 03/06/2023 Document Reviewed: 03/06/2023 Elsezhane Patient Education ? 2023 [employer] Contusion A contusion is a deep bruise. Contusions are the result of a blunt injury to tissues and muscle fibers under the skin. The injury causes bleeding under the skin. The skin over the contusion may turn blue, p (more content not included)... [facility] 10-01-2024 History of Present illness Narrative Reason [...] nursing note reviewed. Exam conducted with a resin shaver present. Vitals: Estimated body mass index is [...] Catrachito Aiken DO documented in this encounter [facility] 09-04-2024 History of Present illness Narrative [facility] [...] 03/30/2022 Performed by Mason Martinez DO at [facility] SECTION 06/25/2012 SECTION 10/26/2014 laparoscopic hiatal hernia repair N/A 08/05/2016 Performed by Vahe Fernandez MD at [facility] LAPAROSCOPIC SLEEVE GASTRECTOMY POSSIBLE CLOSURE OF DIAPHRAGMATIC CRURA DNM-CLINIC N/A 08/05/2016 Performed by Vahe Fernandez MD at [facility] MICRODISCECTOMY LUMBAR Allergies: Allergies Allergen Reactions [...] Resource Strain: Low Risk (03/13/2024) Received from [facility] Overall Financial Resource Strain (CARDIA) Difficulty of Paying Living Expenses: Not hard at all Food Insecurity: No Food Insecurity (07/05/2024) Hunger Screening Food Insecurity - Worry: Never True Food Insecurity - Inability: Never True Transportation Needs: Unknown (03/13/2024) Received from [facility] PRAPARE - Transportation Lack of Transportation (Medical): Not on file Lack of Transportation (Non-Medical): No Physical Activity: Not on file Stress: Not on file Social Connections: Not on file Interpersonal Safety: Not on file Housing Instability: Unknown (03/13/2024) Received from [facility] Housing Stability Vital Sign Unable to [...] - 1.00 mg/dL Final METHOD TRACEABLE TO [facility] STANDARD eGFR (CKD-EPI)non-race dependent 07/10/2024 >90 >59 [...] gestation of [Z3A.21] Please refer to prior [facility] recommendations and consultation notes Ultrasound was [...] primary OB office. If you would like [facility] to perform the growth ultrasound please place a referral Weekly NST and DVP from 34 weeks until delivery due to the patient's medical co-morbidities. To be done in primary OB office Delivery recommended at 39 weeks or earlier as clinically indicated to remove IUD at time of section. The patient desires tubal ligation The patient has a scheduled ultrasound with [facility] She does not have future follow-up visits at [facility] if you would like for us to see the patient again please reach out was The patient is to continue with routine care in your office Thank you for allowing me to participate in her care. Please contact me if you have any concerns. Christen Reid MD, FACOG (she/hers) Maternal- Medicine [facility] [address] [place] [address] This document was created with [employer] technology. Though I make every effort to review the dictation as it is transcribed, on occasion the spoken word can be misinterpreted by the technology leading to inappropriate words, phrases, or sentences. This note is addressed to the requesting provider as a consultation for clinical guidance. Specific medical abbreviations are occasionally used and those are generally approved by the [place]?Board of?Obstetrics and?Gynecology?as well as?Vilma s abbreviations. The above plan of care was based solely on the diagnoses for which a consultation was requested. ?More frequent testing may be indicated based on her other medical/obstetrical conditions. The management of other or medical conditions is beyond the scope of requested consultation and will continue to be followed by the primary magistrate assistant or primary care provider. Note to patient: The 21st Century Cures Act makes medical notes like [...] provider today? No documented in this encounter [facility] 08-12-2024 History of Present illness Narrative Reason [...] of: [place] documented in this encounter [facility] 07-16-2024 History of Present illness Narrative Reason for Appointment: Patient ID: Lucila Jacques is a 34 y.o. female who presents for No chief complaint on file. Patient presents today for Return OB appointment. MEDICATIONS Current Outpatient Medications Medication Instructions Alcohol Swabs (Alcohol Prep Pad) 70 % pads 1 Pad, Topical, Daily, Use four times daily to check FSBS. Blood Glucose Monitoring Suppl ([employer] Glucometer) w/Device kit 1 kit, Does not [...] Past Medical History: Diagnosis Date Migraine headache (CMS/[facility]) Social History Tobacco Use Smoking status: Never [...] nursing note reviewed. Exam conducted with a resin shaver present. Vitals: Estimated body mass index is [...] or undercooked meat, and stay away from [facility]. Patient has been consulted regarding any further do's and don'ts of . Patient voiced understanding and all questions and concerns were answered. Orders Placed This Encounter Procedures POCT urinalysis dipstick manually resulted Follow Up: Patient is to return in 4 weeks for routine OB appointment. Documented by Vikki Fisher LPN on behalf of: Catrachito Aiken DO documented in this encounter [facility] 07-05-2024 History of Present illness Narrative Headache/epigastric [...] yes Have you been seen here at [facility] in a previous ? Yes Recent ER visits or hospitalizations? no Bring blood sugar log or meter with you today? (Please bring them with you for every visit at [facility]) n/a Flu vaccine (Jul-November)? no Any [...] 03/30/2022 Performed by Mason Martinez DO at [facility] SECTION 06/25/2012 SECTION 10/26/2014 laparoscopic hiatal hernia repair N/A 08/05/2016 Performed by Vahe Fernandez MD at [facility] LAPAROSCOPIC SLEEVE GASTRECTOMY POSSIBLE CLOSURE OF DIAPHRAGMATIC CRURA DNM-CLINIC N/A 08/05/2016 Performed by Vahe Fernandez MD at [facility] MICRODISCECTOMY LUMBAR OB Hx: OB History [...] Resource Strain: Low Risk (03/13/2024) Received from [facility] Overall Financial Resource Strain (CARDIA) Difficulty of Paying Living Expenses: Not hard at all Food Insecurity: No Food Insecurity (07/05/2024) Hunger Screening Food Insecurity - Worry: Never True Food Insecurity - Inability: Never True Transportation Needs: Unknown (03/13/2024) Received from [facility] PRAPARE - Transportation Lack of Transportation (Medical): Not on file Lack of Transportation (Non-Medical): No Physical Activity: Not on file Stress: Not on file Social Connections: Not on file Interpersonal Safety: Not on file Housing Instability: Unknown (03/13/2024) Received from [facility] Housing Stability Vital Sign Unable to [...] bring it to the attention of her magistrate assistant to confirm intact expulsion. 2. Obesity affecting [...] to be sent by Dr. Aiken's office. [facility] is happy to review sugar log as [...] continue with routine care in your office [facility], the CDC, and other organizations representing maternal and public health professionals recommend that , , and lactating people and those considering receive the COVID-19 vaccination. Vaccination is the best method to reduce maternal and complications of SARS-CoV-2 infection. This document was created with [employer] technology. Though I make every effort to review the dictation as it is transcribed, on occasion the spoken word can be misinterpreted by the technology leading to inappropriate words, phrases, or sentences. This note is addressed to the requesting provider as a consultation for clinical guidance. Specific medical abbreviations are occasionally used and those are generally approved by the [place]?Board of?Obstetrics and?Gynecology?as well as?Vilma s abbreviations. The above plan of care was based solely on the diagnoses for which a consultation was requested. ?More frequent testing may be indicated based on her other medical/obstetrical conditions. The management of other or medical conditions is beyond the scope of requested consultation and will continue to be followed by the primary magistrate assistant or primary care provider. Thank you for [...] Referring and communicating with other health care support representative (not separately reported) Documenting clinical information in the electronic or other health record Independently interpreting results (not separately reported) and communicating results to the patient/family/caregiver Care coordination (not separately reported) documented in this encounter [facility] 06-17-2024 History of Present illness Narrative Reason [...] nursing note reviewed. Exam conducted with a resin shaver present. Vitals: Estimated body mass index is [...] [place] office with Dr. Aiken along with M. Patient advised to take 81mg Aspirin if tolerated. Gave patient orders for early 24 hour urine and lab workup. Patient to return to clinic in 4 weeks. Documented by Mariaelena Machado LPN on behalf of: Catrachito Aiken DO documented in this encounter [facility] 05-31-2024 History of Present illness Narrative REASON [...] Obesity, Class III, BMI 40-49.9 (morbid obesity) ([facility]) Gastroesophageal reflux disease without esophagitis Morbid obesity ([facility]) Past Medical History: Diagnosis Date Anxiety Arrhythmia [...] 03/30/2022 Performed by Mason Martinez DO at [facility] SECTION 06/25/2012 SECTION 10/26/2014 laparoscopic hiatal hernia repair N/A 08/05/2016 Performed by Vahe Fernandez MD at [facility] LAPAROSCOPIC SLEEVE GASTRECTOMY POSSIBLE CLOSURE OF DIAPHRAGMATIC CRURA [facility] N/A 08/05/2016 Performed by Vahe Fernandez MD at [facility] MICRODISCECTOMY LUMBAR SLEEVE GASTROPLASTY 08/05/2016 ALLERGIES: [...] and the other consultants, we search on epic and all the available care everywhere epic I did review all the imaging studies of the patient available on EMR, ordered by the primary care physician and the other literacy consultant HABITS: Patient activity no restrictions, diet [...] 5 weeks for 1st trimester ultrasound at [facility] office. 4. Targeted anatomy at weeks gestation at M office. 5. Serial growth ultrasounds 4 weeks [...] patient is in complete care of her magistrate assistant. Patient does have ultrasound office visit scheduled with us. Thank you for allowing me to participate in Lucila Jacques . If there any questions please do not hesitate to contact us. Sincerely, LEXI ROBERTSON MD documented in this encounter [facility] 05-23-2024 History of Present illness Narrative Subjective [...] does also recommend for patient to see [facility] For their consultation also. PVU and [...] also given office phone number and [facility] number to call in case of an emergency or after hours needs. PVU and all questions answered. We did discuss place of delivery. Patient should plan to go to [facility] for all services unless an emergency and they need to go to the closest ER. We can make other arrangements possibly if patient would like to deliver at another facility but I did explain I am now at [facility] 100% of the time and would like to do all deliveries there. documented in this encounter [facility] 05-22-2024 Telephone encounter Note Pt had an IUD inserted a month ago and has tested positive for , she hadn't been feeling good lately and it is positive, please call to discuss the next step, in her pregancy and IUD [facility] 05-22-2024 Miscellaneous Notes Pt had an IUD inserted a month ago and has tested positive for , she hadn't been feeling good lately and it is positive, please call to discuss the next step, in her pregancy and IUD documented in this encounter [facility] 02-27-2024 Note Education Materials Gastroenterology Laparoscopic cholecystectomy, [...] these instructions at home: Medicines ? Take srkt-pda-mipltpj and prescription medicines only as told by [...] keep your urine pale yellow. ? Take ttgy-iag-dznlxzs or prescription medicines. ? Eat foods that [...] and water are not available, use hand dray driver. ? Place dry dressings as needed. ? [...] provider. Document Revised: 03/15/2022 Document Reviewed: 03/15/2022 [employer] Patient Education ? 2022 [employer]. [facility] 02-27-2024 Note [facility] Clinical Discharge Summary PERSON INFORMATION Name LUCILA JACQUES Age 33 Years 1990 Sex FEMALE Language Malaysian PCP Provider, None Marital Status Med Service Observation Acct# Arrival 02/26/2024 22:40:28 Visit Reason Abdominal pain; ACUTE CHOLECYSTITIS Acuity LOS 000 10:25 Address: [address] [address] Comment: PROVIDER INFORMATION VITALS INFORMATION Vital Sign [...] ibuprofen Medication List: New Medications [id number], [address], [place] [id number], [phone] acetaminophen-hydrocodone (acetaminophen-hydrocodone 325 mg-5 mg oral tablet) [...] range between ( 1.3 and 2.9 ) [place] Abs#: 0.6 x103/mcL -- Normal range between ( 0.0 and 0.8 ) Auto Baso %: 0.4 % -- Normal range between ( 0.2 and 2.0 ) Auto [place] %: 8 % -- Normal range between [...] 1 (more content not included)... [facility] 01-15-2024 Note [id number] [facility] 01-12-2024 Note [facility] SURGERY Clinical Discharge Summary PERSON INFORMATION Name LUCILA JACQUES Age 33 Years 1990 Sex FEMALE Language Malaysian PCP Provider, None Marital Status Med Service Pain Management Surgery Acct# Arrival 01/12/2024 10:59:54 Visit Reason GENICULAR PAIN Acuity LOS 004 01:11 Address: [address] [place] [address] Comment: PROVIDER INFORMATION VITALS INFORMATION Vital Sign [...] DIAGNOSIS Comment: PHYS DOC NOTES [facility] 01-11-2024 Note [id number] The history of present illness has been reviewed. There are no changes document. [Electronically Signed on: 01/12/2024 11:34 EDT] ALEC PATEL MD [Verified on: 01/12/2024 11:34 EDT] ALEC PATEL MD [Transcribed on: 01/11/2024 13:06 EDT] [facility] 08-23-2023 Note Date of Telehealth V isit: 08/23/23 The patient was notified that using 3rd constitution party telecommunication application (e.g. Dom[employer]) is not HIPAA compliant and may carry some privacy risks: Yes This visit was conducted jvhf-bs-hknr with the use of audio and video [...] shortness of breath. She has been using jnca-pef-jmarqws medications with minimal relief of symptoms. ROS: [...] EMR, and coordinating care. Ching Brooks PA-C [facility] 07-11-2023 Note [facility] Telemedicine Visit Date of Telehealth Visit: 07-11-2023 The patient was notified that using 3rd constitution party telecommunication application (e.g. Dom[employer]) is not HIPAA compliant and may carry some privacy risks This visit was conducted xvwl-xm-kyvd with the use of audio and video [...] migraines. Patient states that she is taken kvkm-fsz-cwnvztb Tylenol and Tylenol PM. She has a [...] today's date. Greater than 16 minutes spent jqcp-zy-qpez assessing patient, reviewing chart and discussing plan of care including treatment options. Care collaborated all questions answered. Rekha Mustafa PA-C Portions of this chart have been completed with voice recognition software, please excuse any errors. [facility] Evaluation note No assessment inform ation available [facility] Work Phone: Evaluation note Diagnosis Onset Date Primary osteoarthritis of left knee acute [facility] Work Phone: Evaluation note* Diagnosis Onset Date Resolution Status Primary osteoarthritis of left knee acute Primary osteoarthritis of left knee acute [facility] Work Phone: Evaluation note* Diagnosis Onset Date Resolution Status Primary osteoarthritis of left knee acute Status post left partial knee replacement [facility] Work Phone: Evaluation note* Diagnosis Onset Date Resolution Status Primary osteoarthritis of left knee acute Status post left partial knee replacement acute Status post left partial knee replacement acute [facility] Work Phone: Evaluation note* Diagnosis 14 [...] in first trimester documented in this encounter [facility] HealthcareEvaluation note* Diagnosis Second trimester state, incidental 25 weeks gestation of with normal glucose tolerance test (GTT) Diabetes mellitus screening Screening for diabetes mellitus Retained intrauterine device (IUD) during in second trimester documented in this encounter [facility] HealthcareEvaluation note* Diagnosis Third trimester state, incidental 30 weeks gestation of with IUD in place, antepartum, first trimester documented in this encounter [facility] HealthcareEvaluation note* Diagnosis Retained intrauterine device (IUD) during in first trimester- Primary documented in this encounter [facility] SystemEvaluation note* Diagnosis Retained intrauterine device (IUD) during in first trimester- Primary documented in this encounter [facility] SystemEvaluation note* Diagnosis Retained intrauterine device (IUD) during in second trimester- Primary BMI 36.0-36.9,adult Multigravida of advanced maternal age in second trimester documented in this encounter [facility] SystemEvaluation note* Diagnosis Retained intrauterine device [...] weeks gestation of documented in this encounter [facility] SystemEvaluation note* Diagnosis 21 weeks gestation of - Primary Retained intrauterine device (IUD) during in second trimester History of gastric bypass Obesity affecting in second trimester, unspecified obesity type with history of section, antepartum Multigravida of advanced maternal age in second trimester documented in this encounter [facility] SystemEvaluation note* Diagnosis 21 weeks gestation of - Primary Retained intrauterine device (IUD) during in second trimester History of gastric bypass Multigravida of advanced maternal age in second trimester documented in this encounter [facility] SystemEvaluation note* Diagnosis 32 weeks gestation of Third trimester state, incidental with IUD in place, antepartum, first trimester documented in this encounter [facility] HealthcareInstructionsNot on filedocumented in this encounter[facility] SystemInstructionsNot on filedocumented in this encounterPro[facility] SystemInstructionsNot on filedocumented in this encounter[facility] InstructionsNot on filedocumented in this encounterPro[facility] InstructionsNot on filedocumented in this encounterPro[facility] InstructionsNot on filedocumented in this encounterPro[facility] Instructions* Attachments The following attachments cannot be sent through Care Everywhere. 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 Advance Directives and Living Will Power of Restaurant Hourly Team Member Advance Directive Response Recorded Date/ Time Advance [...] Robertson MD [address], [address] [place] [address] [facility]aternal [facility] [address] [place] [address] Referral ID Status Reason Start Date Expiration Date V isits Requested Visits Authorized [id number] Pending Review 05/31/2024 05/31/2025 1 1 Specialty Diagnoses / Procedures Referred By Ivan gongora Referred To Contact Maternal and Medicine Diagnoses Retained intrauterine device (IUD) during in second trimester BMI 36.0-36.9,adult Multigravida of advanced maternal age in second trimester Procedures US MF with or without consult Mishel Segovia MD [address], [address] [place] [address] [facility] [address] [place] [address] Referral ID Status Reason Start Date Expiration Date V isits Requested Visits Authorized [id number] Pending Review 07/05/2024 07/05/2025 1 1 Additional Source Comments INFORMATION SOURCE (unrecogn ized section and content) DATE CREATED AUTHOR 10/18/2021 [facility] DATE CREATED AUTHOR AUTHOR'S ORGANIZ ATION 08/30/2023 [facility] DATE CREATED AUTHOR AUTHOR'S ORGANIZ ATION 02/02/2024 [facility] DATE CREATED AUTHOR AUTHOR'S ORGANIZ ATION 03/16/2024 [facility] DATE CREATED AUTHOR AUTHOR'S ORGANIZ ATION 06/13/2024 [facility] DATE CREATED AUTHOR AUTHOR'S ORGANIZ ATION 09/07/2024 [facility] DATE CREATED AUTHOR AUTHOR'S ORGANIZ ATION 10/16/2024 [facility] DATE CREATED AUTHOR AUTHOR'S ORGANIZ ATION 11/12/2024 [facility] DATE CREATED AUTHOR AUTHOR'S ORGANIZ ATION 11/23/2024 [facility] EPIC DATE CREATED AUTHOR AUTHOR'S ORGANIZ ATION 11/30/2024 [facility] Care Teams (unrecognized sec tion and content) [...] 12, 2024 Santa Estrada II, MD Attending [facility], Referring Provider Active Start: March 12, 2024 [...] June 11, 2024 End: June 11, 2024 Compounder Relationship Specialty Start Date End Date Unallocated, Mariela Garcia MD [address] [place] [address] PCP - General Family Medicine 02/01/24 Victor M Lujan NP [address] [place] [address] PCP - [employer] 03/25/24 Team Status: Inactive Member Role Status Dates NON STAFF Primary Care Provider Active Start: July 17, 2024 End: July 17, 2024 Santa Estrada II, MD Attending Provider Active Start: July 17, 2024 End: July 17, 2024 Compounder Relationship Specialty Start Date End Date Unallocated, Mariela Garcia MD [facility] [place] [address] PCP - General Family Medicine 02/01/24 Victor M Lujan, CARDIOLOGY NURSE PRACTITIONER [address] [place] [address] PCP - [employer] 03/25/24 Compounder Relationship Specialty Start Date End Date Unallocated, Mariela Garcia MD [facility] [place] [address] PCP - General Family Medicine 02/01/24 Victor M Lujan, CARDIOLOGY NURSE PRACTITIONER [facility] [place] [address] PCP - [employer] 03/25/24 Compounder Relationship Specialty Start Date End Date Unallocated, Mariela Garcia MD [facility] [place] [address] PCP - General Family Medicine 02/01/24 Victor M Lujan, NASEEM [facility] [place] [address] PCP - [employer] 03/25/24 Compounder Relationship Specialty Start Date End Date Unallocated, Mariela Garcia MD [address] [place], [place] [address] [address] PCP - General Family Medicine 02/01/24 Victor M Lujan, NASEEM [facility] [place] [address] PCP - [employer] 03/25/24 Compounder Relationship Specialty Start Date End Date Unallocated, Mariela Garcia MD [address] [place] [address] PCP - General Family Medicine 02/01/24 Victor M Lujan, CARDIOLOGY NURSE PRACTITIONER [address] [place] [address] PCP - [employer] 03/25/24 Compounder Relationship Specialty Start Date End Date Unallocated, Mariela Garcia MD [address] [place] [address] PCP - General Family Medicine 02/01/24 Victor M Lujan, CARDIOLOGY NURSE PRACTITIONER [address] [place] [address] PCP - [employer] 03/25/24 Compounder Relationship Specialty Start Date End Date Unallocated, Mariela Garcia MD [address] [place] [address] PCP - General Family Medicine 02/01/24 Victor M Lujan, CARDIOLOGY NURSE PRACTITIONER [address] [place] [address] PCP - [employer] 03/25/24 Compounder Relationship Specialty Start Date End Date Unallocated, Mariela Garcia MD [address] [place] [address] PCP - General Family Medicine 02/01/24 Victor M Lujan, CARDIOLOGY NURSE PRACTITIONER [address] [place] [address] PCP - [employer] 03/25/24 Compounder Relationship Specialty Start Date End Date Unallocated, Mariela Garcia MD [address] [place] [address] PCP - General Family Medicine 02/01/24 Victor M Lujan, CARDIOLOGY NURSE PRACTITIONER [address] [place] [address] PCP - [employer] 03/25/24 Compounder Relationship Specialty Start Date End Date Unallocated, Mariela Garcia MD [facility] [address] PCP - General Family Medicine 02/01/24 Victor M Lujan, CARDIOLOGY NURSE PRACTITIONER [address] [place] [address] PCP - [employer] 03/25/24 Compounder Relationship Specialty Start Date End Date Unallocated, Mariela Garcia MD [facility] [place] [address] PCP - General Family Medicine 02/01/24 Victor M Lujan, CARDIOLOGY NURSE PRACTITIONER [address] [place] [address] PCP - [employer] 03/25/24 Compounder Relationship Specialty Start Date End Date Unallocated, Mariela Garcia MD [facility] [place] [address] PCP - General Family Medicine 02/01/24 Victor M Lujan, CARDIOLOGY NURSE PRACTITIONER [address] [place] [address] PCP - [employer] 03/25/24 Compounder Relationship Specialty Start Date End Date Unallocated, Mariela Garcia MD [address] [place] [address] PCP - General Family Medicine 02/01/24 Victor M Lujan, CARDIOLOGY NURSE PRACTITIONER [address] [place] [address] PCP - [employer] 03/25/24 Compounder Relationship Specialty Start Date End Date Unallocated, [place] [address] PCP - General Family Medicine 02/01/24 Compounder Relationship Specialty Start Date End Date Pcp, [place] [address] PCP - General Family Medicine 09/04/23 Compounder Relationship Specialty Start Date End Date Pcp, [place] [address] PCP - General Family Medicine 09/04/23 Compounder Relationship Specialty Start Date End Date Pcp, [place] [address] PCP - General Family Medicine 09/04/23 Compounder Relationship Specialty Start Date End Date Pcp, [place] [address] PCP - General Family Medicine 09/04/23 Compounder Relationship Specialty Start Date End Date Pcp, [place] [address] PCP - General Family Medicine 09/04/23 Compounder Relationship Specialty Start Date End Date Pcp, [place] [address] PCP - General Family Medicine 09/04/23 Compounder Relationship Specialty Start Date End Date Pcp, [place] [address] PCP - General Family Medicine 09/04/23 Compounder Relationship Specialty Start Date End Date Pcp, [place] [address] PCP - General Family Medicine 09/04/23 Compounder Relationship Specialty Start Date End Date Unallocated, Noms Provider, [facility] [place] [address] PCP - General Family Medicine 02/01/24 Compounder Relationship Specialty Start Date End Date Pcp, [place] [address] PCP - General Family Medicine 09/04/23 Goals [...] BE BASED ON THE PRIMARY CLINICAL RECORDS. [facility] [employer] [facility]. provides no warranty or guarantee of the accuracy or completeness of information in this document.
[2024-12-02 10:30] VITALS: BP 108/73; PULSE 87
== END 2024-12-02 11:10 | disposition home or self-care (01) ==
LOC: US 09:55 → FBC 09:56
PROVIDERS: Visit Provider Obstetrics & Gynecology
DX: O26.893 Other specified pregnancy related conditions, third trimester (principal); Z3A.34 34 weeks gestation of pregnancy
CPT/HCPCS: 59025; 76818

== ENCOUNTER 2024-12-05 16:12 | Observation (INO) | payer OTHER, SELFPAY ==
[2024-12-05 16:21] VITALS: BP 123/67; PULSE 83
--- OUTSIDE RECORDS SUMMARY | 2024-12-05 16:23 | XMS_ITS | CCD ---
Author Organization [facility] Care Team Providers Care Correctional Nurse Name Role Phone Yesica Khan Primary Care Provider ROCÍO GONZALEZ Referring Unavailable YESICA KHAN Primary Care Unavailable ROCÍO GONZALEZ Referring Unavailable YESICA KHAN Primary Care Unavailable DENISE TAYLOR Referring Unavailable Audra Cameron Attending Sravanthi Patel MD, Alec Sethi Attending Charles MAJANO, Audra Burns Attending Sravanthi shell NON STAFF Primary Care Provider UnavailMD Santa Whiteside II Attending Provider MD Maurizio Mast Attending Provider [phone] NO FAMILY, PHYSICIAN Primary Care Provider MD Santa Rebolledo II Referring Provider [phone] MD Santa Estrada II Attending Provider [phone] NON STAFF Primary Care Provider Unavailabl e [...] Care Unavailable Santa Estrada II Admitting UnavailSanta Whiteside II Attending UnavailSanta Whiteside II Referring Unavailabl e Unallocated , Haley Provider Primary Care Provi sharla Tai CLAIMS SUPPORT SPECIALIST, Victor M Worley Unavailable NON STAFF Primary [...] PCP, NOT IN SYSTEM Primary Care Unavailable [address] [place] [address], [facility] Referring Unavailable PCP, NOT IN SYSTEM Primary Care Unavailable ATTILA, CATRACHITO R Referring Unavailable PCP, NOT IN SYSTEM Primary Care Unavailable Pcp, Not In System Primary Care Provider Unavail able Peter Booth Attending Unavailable Provider, None Primary Care Unavailable Sparta, Audra M Admitting Unavailable [place]a, Audra M Attending Unavailable Provider, None Primary Care Unavailable Provider, None Primary Care Unavailable Maurizio Mast Admitting Unavailable Maurizio Mast Attending Unavailable Juliano Peterson Consulting Unavailable [place]a, Audra M Admitting Unavailable [place]a, Audra M Attending Unavailable Provider, None Primary Care Unavailable [place], Audra M Attending Unavailable Provider, None Primary Care Unavailable [place], Audra M Admitting Unavailable KINDLALEC F Admitting Unavailable KINDLALEC F Attending Unavailable Provider, None Primary Care Unavailable Provider, None Primary Care Unavailable Randy Walker Admitting Unavaila Randy Landers Attending Unavaila ble Peter Booth Attending Unavailable Provider, None Primary Care Unavailable ATTILA, CATRACHITO Attending Unavailable ATTILA, CATRACHITO Attending Unavailable GENEVIEVE DONOVAN Attending Unavailable ATTILA, CATRACHITO Attending Unavailable SANDRITA BOWERS Referring Unavailable FLORSANDRITA Wood Attending Unavailable SANDRITA BOWERS Attending Unavailable FLORO, SANDRITA León Attending Unavailable VICTOR M LUJAN Attending Unavailable VICTOR M LUJAN Referring Unavailable VICTOR M LUJAN Attending Unavailable ATTILA, CATRACHITO Attending Unavailable ATTILA, CATRACHITO Attending Unavailable ATTILA, CATRACHITO R Referring Unavailable PCP, NOT IN SYSTEM Primary Care Unavailable Allergies Allergy Classification Reported Allergen(s) Allergy Type Date of Onset Reaction(s) Facility Magnesium (1 source) Magnesium Drug Allergy 4 [facility] NSAIDs (1 source) Ibuprofen Drug Allergy 4 [facility] Potassium (1 source) Potassium Drug Allergy 4 [facility] (2 sources) Magnesium-Conta ining Compounds Propensity to adverse reactions to drug 9 [place], [place] (20 sources) Ibuprofen; Translations: [ibuprofen] Drug Allergy 9 [place], [place] (1 source) Potassium-Conta ining Compounds Propensity to adverse reactions to drug 0 [place], [place] (1 source) ALLERGIES NOT ON FILE; Translations: [ALLERGIES NOT ON FILE] Propensity to adverse reactions (disorder) [facility] Repository (20 sources) Magnesium; Translations: [magnesium] Drug Allergy 2 [facility] (20 sources) Potassium; Translations: [potassium] Drug Allergy 3 [facility] (9 sources) Contrast media Allergy to substance 4 [facility] (6 sources) NSAIDS (Non-Steroidal Anti-Inflamma Allergy to substance 4 [facility] (1 source) Ibuprofen Drug Allergy 4 [facility] Repository (20 sources) Non-steroidal anti-inflammato ry agent Drug Allergy 3 [facility] Healthcare Work Phone: (20 sources) Amoxicillin-Pot Clavulanate Drug Intolerance 1 [facility] Healthcare (20 sources) Amoxicillin; Translations: [AMOXICILLIN] Drug Allergy 4 [facility] Repository (12 sources) NSAIDs; Translations: [NSAIDS (NON-STEROIDAL ANTI-INFLAMMATO RY DRUG)] Propensity to adverse reactions to drug (disorder) 2 Hives [facility] Repository (20 sources) Potassium Chloride; Translations: [POTASSIUM CHLORIDE] Drug Allergy 2 Hiv [facility] Repository (16 sources) Iodinated Contrast Media; Translations: [IODINATED CONTRAST MEDIA] Drug Intolerance 4 Hives, Itching, Rash [facility] Healthcare Medications Current Medications Medication Drug Class(es) [...] mouth Daily 08/12/2024 Discontinued (Therapy completed) levonorgestrel 0.799501 mg/hr intrauterine system (2 sources) Progestin, Progestin-containing [...] VITAMINS DAILY ORAL) Take by mouth. Active [facility]ner (No Known Home Meds) (4 sources) Start: 2019 [facility] (No Known Home Meds) Active November 14, [...] BED docusate sodium 50 mg / sennosides, half-way 8.6 mg oral tablet (6 sources) Start: 04-19-2024 End: 05-15-2024 take 2 tablets by mouth once daily Sennosides-Docusat e Sodium (Senokot-S) 8.6-50 mg tablet Discontinued 2 TAB PO daily 60 30 April 19, 2024 12:00am May 15, 2024 [...] Oxycodone Discontinued 5 MG PO Q4H 42 7 April 19, 2024 May 15, 2024 1:38pm [...] August 30, 2017 12:44pm polyethylene glycol 3350 59187 mg powder for oral solution (6 sources) Osmotic Laxative Start: 04-19-2024 End: 05-15-2024 Polyethylene Glycol 3350 (Miralax) 17 gram/dose powder Discontinued 17 GM PO daily 7 7 April 19, 2024 12:00am May 15, [...] current use of drug therapy; Translations: [Other fdc (current) drug therapy] 03-12-2024 Episodic Other complications [...] 04-18-2016 Episodic Other aftercare (1 source) 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 Ordering Physician: Catrachito Aiken D.O. Date of Service: 12/02/24 Procedure(s): US OB BPP w non-stress Accession Number(s): [id number] cc: Catrachito Aiken D.O.; Physician,Non-Staff M.DWalker The [place] [id number] Patient Name: LUCILA JACQUES MRN: [facility]:[id number] date: 1990 Sex: F Assigned Patient Location: [facility] Current Patient Location: Accession/Order Number: [id number] Exam Date: 12/02/2024 13:46 Report Date: 12/02/2024 13:48 At the request of: CATRACHITO AIKEN DO Procedure: US OB BPP w non-stress BIOPHYSICAL PROFILE: CLINICAL INFORMATION: with IUD in place COMPARISON: 11/28/2024 A single live intrauterine gestation is present in cephalic presentation. The reported gestational age is 34 weeks 1 day. The heart rate [id number] beats per minute. FINDINGS: TONE: 1 or more episodes of activity extension and flexion of extremity or opening and closing of the hand [Y] 2/2 GROSS BODY MOVEMENTS: 3 or more discrete body or limb movements [Y] 2/2 BREATHING MOVEMENTS: 1 or more episodes of breathing lasting at least 30 seconds [Y] 2/2 ISAIAH: A single deepest vertical pocket of amniotic fluid greater than 2 cm [Y] 2/2 ISAIAH: 6.1cm . This is less than the 5th percentile. Total score: 8/ US/US OB BPP w non-stress IMPRESSION: NORMAL BIOPHYSICAL PROFILE. OLIGOHYDRAMNIOS. Impression dictated by: Vikki Rivers M.D.12/02/2024 1:48 PM Dictation Location: [place] [address] Electronically authenticated by: [id number] Y Date: 12/02/2024 13:48 Dictated By: Vikki Rivers M.D. Signed By: 12/02/24 1351 DD/ 1348 TD/TT: Cylinder Loader: [facility] Radiology, Radiologi MD kevin - 12/02/2024 [place] [address] Ultrasound Report Signed Patient: LUCILA JACQUES MR#: [id number] : 1990 Acct:[id number] Age/Sex: 34 / F ADM Date: 12/02/24 Loc: US Attending Dr: Catrachito Aiken D.O. Ordering Physician: Catrachito Aiken D.O. Date of Service: 12/02/24 Procedure(s): US OB BPP w non-stress Accession Number(s): [id number] cc: Catrachito Aiken D.O.; Physician,Non-Staff Farhat The [address] [address] Patient Name: LUCILA JACQUES MRN: [facility]:[id number] date: 1990 Sex: F Assigned Patient Location: [facility] Current Patient Location: Accession/Order Number: [id number] Exam Date: 12/02/2024 13:46 Report Date: 12/02/2024 13:48 At the request of: CATRACHITO AIKEN DO Procedure: US OB BPP w non-stress BIOPHYSICAL PROFILE: CLINICAL INFORMATION: with IUD in place COMPARISON: 11/28/2024 A single live intrauterine gestation is present in cephalic presentation. The reported gestational age is 34 weeks 1 day. The heart rate [id number] beats per minute. FINDINGS: TONE: 1 or more episodes of activity extension and flexion of extremity or opening and closing of the hand [Y] 2/2 GROSS BODY MOVEMENTS: 3 or more discrete body or limb movements [Y] 2/2 BREATHING MOVEMENTS: 1 or more episodes of breathing lasting at least 30 seconds [Y] 2/2 ISAIAH: A single deepest vertical pocket of amniotic fluid greater than 2 cm [Y] 2/2 ISAIAH: 6.1cm . This is less than the 5th percentile. Total score: 8/8 US/US OB BPP w non-stress IMPRESSION: NORMAL BIOPHYSICAL PROFILE. OLIGOHYDRAMNIOS. Impression dictated by: Vikki Rivers M.D.12/02/2024 1:48 PM Dictation Location: [place] [address] Electronically authenticated by: [id number] Y Date: 12/02/2024 13:48 Dictated By: Vikki Rivers M.D. Signed By: 12/02/24 1351 DD/ 1348 TD/TT: Cylinder Loader: [facility] Radiology Study observation (narrative) [facility] US OB BPP W NON-STRESS Ordered By: Radiologist Radiology on 12-02-2024 [facility] Work Phone: AMNISUREon 11-25-2024 [facility] AMNISURE Negative NEGATIVE [facility] US OB BPP W NON-STRESS on 11-25-[address] [address] Ultrasound Report Signed Patient: LUCILA JACQUES MR#: [id number] : 1990 Acct:[id number] Age/Sex: 34 / F ADM Date: 11/25/24 Loc: US Attending Dr: Catrachito Aiken D.O. Ordering Physician: Catrachito Aiken D.O. Date of Service: 11/25/24 Procedure(s): US OB BPP w non-stress Accession Number(s): [id number] cc: Catrachito Aiken D.O.; Physician,Non-Staff Farhat The [place] [id number] Patient Name: LUCILA JACQUES MRN: [facility]:[id number] date: 1990 Sex: F Assigned Patient Location: [facility] Current Patient Location: [facility] Accession/Order Number: [id number] Exam Date: 11/25/2024 16:14 Report Date: 11/25/2024 16:15 At the request of: CATRACHITO AIKEN DO Procedure: US OB BPP w non-stress Biophysical profile. Reason for exam: IUD in place with current . COMPARISON: BPP 11/21/2024. TECHNIQUE: Transabdominal imaging of the gravid uterus was obtained. FINDINGS: The mechanical design engineer products reports a BPP of 8 out of 8. ISAIAH 6.7 cm heart rate 140 bpm. US/US OB BPP w non-stress IMPRESSION: BPP 8 out of 8. Impression dictated by: Haile Palacio Jr., D.O.11/25/2024 4:15 PM Dictation Location: [place] [address] Electronically authenticated by: [id number] Y Date: 11/25/2024 16:15 Dictated By: Haile Palacio M.D. Signed By: 11/25/24 1618 DD/ 14 TD/TT: Cylinder Loader: [facility] RadiologyIsidraogrodriguez brown MD - 11/25/2024 [place] [address] Ultrasound Report Signed Patient: LUCILA JACQUES MR#: [id number] : 1990 Acct:[id number] Age/Sex: 34 / F ADM Date: 11/25/24 Loc: US Attending Dr: Catrachito Aiken D.O. Ordering Physician: Catrachito Aiken D.O. Date of Service: 11/25/24 Procedure(s): US OB BPP w non-stress Accession Number(s): [id number] cc: Catrachito Aiken D.O.; Physician,Non-Staff [place] [address] Patient Name: LUCILA JACQUES MRN: [facility]:[id number] date: 1990 Sex: F Assigned Patient Location: [facility] Current Patient Location: [facility] Accession/Order Number: [id number] Exam Date: 11/25/2024 16:14 Report Date: 11/25/2024 16:15 At the request of: CATRACHITO AIKEN DO Procedure: US OB BPP w non-stress Biophysical profile. Reason for exam: IUD in place with current . COMPARISON: BPP 11/21/2024. TECHNIQUE: Transabdominal imaging of the gravid uterus was obtained. FINDINGS: The mechanical design engineer products reports a BPP of 8 out of 8. ISAIAH 6.7 cm heart rate 140 bpm. US/US OB BPP w non-stress IMPRESSION: BPP 8 out of 8. Impression dictated by: Haile Palacio Jr., D.O.11/25/2024 4:15 PM Dictation Location: [place] [address] Electronically authenticated by: [id number] Y Date: 11/25/2024 16:15 Dictated By: Haile Palacio M.D. Signed By: 11/25/248 DD/ 14 TD/TT: Cylinder Loader: [facility] Radiology Study observation (narrative) [facility] US OB BPP W NON-STRESS Ordered By: Radiologist Radiology on 11-25-2024 [facility] Work Phone: AMNISUREon 11-21-2024 [facility] AMNISURE Negative NEGATIVE [facility] No Panel InformationOrdered By: Radiologist Radiology on 11-21-2024 [facility] Work Phone: No Panel Informationon 11-21 Radiology Study observation (narrative) [facility] US OB BPP W NON-STRESS on 11-21-2024 [place] [address] Ultrasound Report Signed Patient: LUCILA JACQUES MR#: [id number] : 1990 Acct:[id number] Age/Sex: 34 / F ADM Date: Loc: [facility] 250-[address]: Catrachito Aiken D.O. Ordering Physician: Catrachito Aiken D.O. Date of Service: 11/21/24 Procedure(s): US OB BPP w non-stress Accession Number(s): [id number] cc: Catrachito Aiken D.O.; Physician,Non-Staff MChristie The [place] [address] Patient Name: LUCILA JACQUES MRN: [id number]:[id number] date: 1990 Sex: F Assigned Patient Location: [facility] Current Patient Location: Accession/Order Number: [id number] Exam Date: 11/21/2024 18:27 Report Date: 11/21/2024 [...] Ruddy Esquivel M.D.11/21/2024 6:32 PM Dictation Location: [place] [address] Electronically authenticated by: [id number] Y Date: 11/21/2024 18:32 Dictated By: Ruddy Esquivel M.D. Signed By: 11/21/241834 DD/ 31 TD/TT: Cylinder Loader: [facility] Radiology, Radiologi MD kevin - 11/21/2024 [place] [address] Ultrasound Report Signed Patient: LUCILA JACQUES MR#: [id number] : 1990 Acct:[id number] Age/Sex: 34 / F ADM Date: Loc: [facility] [address]: Catrachito Aiken D.O. Ordering Physician: Catrachito Aiken D.O. Date of Service: 11/21/24 Procedure(s): US OB BPP w non-stress Accession Number(s): [id number] cc: Catrachito Aiken D.O.; Physician,Non-Staff Farhat The [place] [id number] Patient Name: LUCILA JACQUES MRN: [facility]:[id number] date: 1990 Sex: F Assigned Patient Location: [facility] Current Patient Location: Accession/Order Number: [id number] Exam Date: 11/21/2024 18:27 Report Date: 11/21/2024 [...] Ruddy Esquivel M.D.11/21/2024 6:32 PM Dictation Location: [place] [address] Electronically authenticated by: [id number] Y Date: 11/21/2024 18:32 Dictated By: Ruddy Esquivel M.D. Signed By: 11/21/241834 DD/ 31 TD/TT: Cylinder Loader: [facility] GROWTHon 11-21-2024 [place] [address] Ultrasound Report Signed Patient: LUCILA JACQUES MR#: [id number] : 1990 Acct:[id number] Age/Sex: 34 / F ADM Date: Loc: [facility] [address]: Catrachito Aiken D.O. Ordering Physician: Catrachito Aiken D.O. Date of Service: 11/21/24 Procedure(s): US OB growth Accession Number(s): [id number] cc: Catrachito Aiken D.O.; Physician,Non-Staff Farhat The [place] [id number] Patient Name: LUCILA JACQUES MRN: [id number]:[id number] date: 1990 Sex: F Assigned Patient Location: [facility] Current Patient Location: Accession/Order Number: [id number] Exam Date: 11/21/2024 18:27 Report Date: 11/21/2024 [...] Ruddy Esquivel M.D.11/21/2024 6:32 PM Dictation Location: [place] [address] Electronically authenticated by: [id number] Y Date: 11/21/2024 18:32 Dictated By: Ruddy Esquivel M.D. Signed By: 11/21/241834 DD/ 31 TD/TT: Cylinder Loader: [facility] Radiology, Radiologi MD kevin - 11/21/2024 [place] [address] Ultrasound Report Signed Patient: LUCILA JACQUES MR#: [id number] : 1990 Acct:[id number] Age/Sex: 34 / F ADM Date: Loc: [facility] 250-[address]: Catrachito Aiken D.O. Ordering Physician: Catrachito Aiken D.O. Date of Service: 11/21/24 Procedure(s): US OB growth Accession Number(s): [id number] cc: Catrachito Aiken D.O.; Physician,Non-Staff Farhat [facility] [place] [address] Patient Name: LUCILA JACQUES MRN: [id number]:[id number] date: 1990 Sex: F Assigned Patient Location: [facility] Current Patient Location: Accession/Order Number: [id number] Exam Date: 11/21/2024 18:27 Report Date: 11/21/2024 [...] Ruddy Esquivel M.D.11/21/2024 6:32 PM Dictation Location: [place] [address] Electronically authenticated by: [id number] Y Date: 11/21/2024 18:32 Dictated By: Ruddy Esquivel M.D. Signed By: 11/21/241834 DD/ 31 TD/TT: Cylinder Loader: [facility] Urinalysis macro (dipstick) panel (U)on 11-21-2024 Bilirubin, UA Positive Negative - 4(70) +++ mg/dL [facility] Comment on above: small Blood, UA Negative Negative - 50 Asif/mcL [facility] Clarity, UA Clear [facility] Color, UA Bibiana [facility] Glucose, UA Negative Negative - 1999(110) ++++ mg/dL [facility] Interpretation and review of laboratory results Abnormal [facility] Ketones, UA Positive Negative - 160(16) ++++ mg/dL [facility] Comment on above: trace Leukocytes, UA Negative Negative - 500+++ Shivani/mcL [facility] Nitrite, UA Negative Negative - Positive [facility] pH, UA 5.5 5 - 9 [facility] Protein, UA Positive Negative - 1999(20) ++++ mg/dL [facility] Comment on above: 30 Spec Grav, UA 1.03 1 - 1.03 [facility] Urobilinogen, UA 1.0 0.2 - 12 mg/dL [facility] Coding Summaryon 11-11-2024 Coding Summary HTMLBase 64 PinirlrfITn4fGk+PGhlYWQ+PE1 IMXHbF46vlAFxoV2jU1XWBBrCAm thLOWJUErDOcQkjtGfZI3ylBZnU XJu IC8+VC1dRFJzLudcaFSwi7H4nBE 5K78zkr8rVQyysVI1ZQObJmWojw mkf1mbxAd7XZskNsfmKeAm BFAuqY04SYP8lE27Kp48cTYuzIN jk0sylXm9UiHxMDUkUOR6jWveXG ire7VvMMAtT00vbJVkb7Y7 UAEydPacsKOlUaZkhRX3kP6jGKw qgcauy0huicbfDtq3ji89nOTal9 R0bJI1F4RiucI1HISunYXy CfpxeHCJfR8mkfkvc4veoufkPzT bBSQnORw7JFy4XJZidMquYdBuXX 79VZP3NQNbxtCzD7BfBKLz uWabFnG9m7Z5Yn5BY1MZEttkX0R NTUFSWTwvdGQ+ZU77bi27C4PaOw mjMgi2XGPiOAG6mGM7kY0p XIAsUGtyu7N0bOE7Q7SrwtIjeh5 tl5ypOECkSEftI10moIKrb3D5OK TprQM6TFLxcJhwAmEcqD63 Oyc+OUSxvRlfh2QuQnsju3nih8t kaUd6ZqbmWKJcjuMwcSjpIMK3r6 FuDe5dPYCuwMZ3lWJ8jX7e BhOzKxK5RHdhU981ZuVcvORoAkq xK62lC0RwdFV+IZLcPqn0TWJuuP rwLK0nG3QtWZRdocuhnHXw yLxvYI3iQSRlmeotBBKmiV6qSVJ yS0i3TfOcQtJ9TInbA2VbPYWwas jvEn14jF8zYjQyKfC1KSfy N0ItpeA9UBGyxOOpTTkgIUY4L30 fb5S6ZUJfSENjMVG3wWX7rH8cgH lnbjogbGVmdDsgdmVydGlj BQcoWWfmJ881LJMbaCguLuZgJLd uZyBEYXRlOiAgMDIvMTcvMjAyNT wvdGQ+JHKwXKU2kWxgNYWj vPDzVWhhVa0caRolrEucCA1zCGR xjewxYIFdmR3wZTPutWEghSbpPC 4nKIRexfkjt763FgTfWTM2 RXLfgSIgK8NtrJ0uOeLjOJVlNXM kF3LzxLRbCKzeF304OJhsVqW5EL YpvjUfS9FhZDSfmTgrNzG1 w5M5Ua4Nx5OvivikS2WraCVcFfL lIoauMBa8R7YtEbovbTG+PC90YW HfZA11CTv7BPH3rMmiWWkd WNSyV3XlbO5nPhOcVCGsJHPlEwd +PHRhYmxlIHdpZHRoPScxMDAlJy MgiRycLG0wBq6yDMCwXZVh pEynkSPwGiDus9ceQMLgUInkCP2 vjUnqF1BnwHY2HMOay8f5Lr85W9 9pH9YzkGX+OHKbkUH5kBL2 hD1lGpXlHoZ1JFapS224OrVlcXM fPywsc6hxj5dvjYi9OjD7NUTibd GowYirLGM1u5EbGk89C09j IHdpZHRoPSIxNSUiIHZhbGlnbj0 tbL0fBr1+WZGazIZ7oNF4fC5dXb SpAjA3USrkF794NoNjpMWc Ggvpr5ljw1dkdJk5ImTmXJSlrhM lqPbrBHB8n4DvAz79O6NrzHwhl2 WhYtn6pb82nGZto7M1fYE6 P7EbFJDwdkoahJSqnLaeCS2sECN xnebkZRAkvY8iSRHcG8s2OsOdJi C2IGdfB2TlsaP1IBXtoECl GKGkrGQVoP0cqscpo1dekcevNfO mUIIjTEz2EOq8OOWtjWuxEfAvLP F8FjN5FRN7xSKmnL8rvAys efbozO4uNqa+WFX3rLJouCEVFZ5 lOjwvdGQ+KTHuIKC7sMreDFshGQ IqfR1jNPPeI3l5JkRrWhU1 VCwzZ0IfohI9EUQtlMDgHVYcpQF WfJ2zpdpyv9agmjncYkMqDJEuWL h5VEz2FWZvkOooLlBeYUE5 ZcI2GXJ4dPBvzJ0jwHkvxuprmZ9 wOyc+VdrkgEruTXZ8QZi9W5GeOl h0VFUwuLugFO5ykUFiMEgs Cc4twSthyHgdTM2xHXDyiprip48 8QkUab6fkJEXezXYgFDxaQQC7L1 5xd1A8UUHfPMRvWLN2wZE3 tC8tkOdprzoioUZykRbjiqZzzPo jZPggYQpiB672RLZwxKwhNiVnWQ f5O1FoNhq6GJWkmFhrXF9w rIEbQNbgKt9xyIwagLcvOR8vXXG fwhhqe693WkFyz0ycJDEgwWRoUV peIEL0S80gx5Q3XNXyZCPo NSC0bUV4aN2wdBxxtycmtCMagNk othXehBthBPfsSKqyF972MBIntL aqJlBtqPe9P6GrGbl8DDSy tEmvKD3vjTZiVHchQg3qpBatbZt pVJ9qWOEfgnllj232MpNcb6yjQG BbhZNhFKxqWHT9P52ec3H0 NIFiXRUyKRB5pJR7pQ0vdWtsjmo gbGVmdDsgdmVydGljYWwtYWxpZ2 46IHRvcDsnPlBhdGllbnQg DLwrSTd9G6HhCidrrPG+KB25SKI zLC07dMTkgPWiv6qnsXc6WzSiQF HgGGX6jOyuQQcbk2TfSVMm V92hiKGyp9Z7NXUkaXrvuWCpWwW yvZI6hS0kSXqqeaezn1aiqnjfRh gbm0ajcx23sV77Q34bLCwq HTGdWMQdRGKlZKLbhLpohf0xrF1 wIi8+OPNpeDD4tOC8fQ1qRPJhFd B5GJapQ465IuNdsAKvBjit g1lpy9tzfYa8MdH2WRJtpvXbxVa fKCH6d9NvHo53J43tHMkpVYOiUD KjJJTgTDFhcSfuki2mjG4x Ii8+NKFxvKS9iBY1iP4tCoJyXoS 1LAjbX337WoAknBFoSztwC50uD9 JvdXA+LPDvOxu0FHLmxJnw DX8ilKJaENumOp7uEJI0AeYhXlD mPNycA4LyFHSnqhpzqbjdhOU4UH YaPBOylU47Nb5ahZhnCXOo iSNEcQ6ggkjaj3neenweSbEvYCP nCWa4NBj5WVZgqEdpXaMgCFI3Sb X6LOI8iXDjxR2tiBcsaezu wJ6uS8VgVGOnygcnUl17hG3cJqQ xBhA4SKscSfr+DyOUIofcI4QOQD jLUvYCLPN6Q3PfDcx4PPQe aNpcAI4ilXQfVHatMa4pzYcxzNj wBY4fACNkctfoWTTxfZ6sIWGuiO QmjTtkOU8rPSBbawqus046 UePiKNV5KLCslYVpF7PecE3vIuT iXBDgRUFjH8OasNXsVKbdC583QT tlVuY7ZEOswlRnR4LqQLRw sVqoHaR1f3M9Vi9uSY9eLk2xEVg 2TF50QA72rWEuc5C3nBG6J7KnSB AnnnhcsobduZL9JFTxLGRk lI52mDSdQEdnPp3ce9B9k020WDS wUQDgrQ97Ui5elJvsUGNyjJBZrJ 3dzmmvh9rajksnExGwLMJh JNg4TCt0YFNjyRmiZiZcCSH8DxX 8HBX0qTHtnU8rqJadizlscJ7nWk c+PqLiSRVzfmH0Z4WiJgl9 SCTeqMdyWZ8mlGWaGYpqKl9foNi ilRjlVE3rLVMvqkekSVKzjM2pWE OrbRXlyWacHF5nJYHrotup e137HiQnWBM6CBTzsZGdO6FepC4 tFlPmECQcZHCzV0PniPGzONdzP9 69TLdtInT8HMJiekQhU7Sc LYNicOauGjY8z9S1Bu1ZEV0GLOP 8E1VyDxn4MNStxFomVZ4yxUUxWS esNe2opTdxqVwyYX7eHJMh tsppXULayN5mSXLljQZqvJmiBO1 zZWNegftzj974AeWbWRK8MKBfnS HhG2JgzA0jZcUjWMYxFRWh L5BdlIKpGDjtN366YByeUuG0YSE onyGbY0AdFMVyqJojImT0m6U5Gw 5PUDwvdGQ+UZ01uy43D2Xp OfpbLfh3TPJwGKG0sIR4bF5sSUM qSCogz7J6vWQ3Q7UvzbSmpk1rt6 rhADAePQkpO19diQLko0L0 APBomVR2CFYxvPygKxVpbX78Tad +GOXpvVsov7JrCiveq1mse9glfR q0QyKaNWHmvoVzlOnlXJQ9 t3SoGv13H89xYBkmDHMjGGScVAW pITRmuMjsyg0kdJ4qTq5+PGNvbC C5zCJ1aB8dQaBdGyA0BEav S423MxWtzOMyWvlvm3var3wxiEx 5DgMuSYLikuCxaDzwFCC4z2NlSf 97Q3SgtLjkq6IsIdf4vj77 rWQwe1O5oCT6V8FmGUQpygayuVT lhWzqVP7cSKVjxobzRSNtsR3wWJ HkT4z2MsDrYqP4LWocI7Vn nuP2OPHjlWHpOBOvmNREnW3bcjg sd5njyybqNtEwMPEqSAk3JWd9WR YoaGslYlHyTUZ2JnS8ODI9 nLWxgK8biAmobpaxrT0dAbh+UGh 6b8jnpXEdXC1qkWN3XU08JV56hF Kju3T9lQM0Q3SuOZWxiogq fpgtfTX2JKOaZZYdyW17Zp0ooVm aDl9qXUMyMLW3UYVyzKOcU2TwcM 2fGlAsUNIsSLHnD6KraZUl UUpnT355YMblOdO8ZBCnflShI7X wBVVndEtvXxI5a2X4Jy5WXN99UI 63OL30cYOes6X7lKC5Z4Im YGBoeheebfdsvOF0ZLSqIFApjF7 8Bs5qySdbWv6kNQJuCJW1UHYxjA QlL1TpwG2uDaAhPYHfZFPa H1OcnCGjKBoaK708KZgdZeU0DTD vnbUhK6VnDEYwoCyuRcV6m4G9Oi 4HCq26PS39WP91uZKru2Q6 sAS1L2ScFXHquakpothkjRO1UBH rJUHgyA70Tn1vsMrcYh5hUQVfXS F7PAPphVVaW9HgnJ2eVvCt ARTpFWZhK5MbkVKeLEjxK325PNh qGhN9BMHnndFjG1MwJESgeZhwHz Y8g9A4Jm0NHWcksgs6A0Vy PjwvdHI+PD23FEEuNV02rUPdsYP in7fxqQw2PaAcCEYxIRU2rOrbZG eut6WgDROmE40zkNKam5P8 IGN (more content not included)... Normal [facility] Urinalysis macro (dipstick) panel (U)on 11-07-2024 Bilirubin, UA Positive Negative - 4(70) +++ mg/dL [facility] Comment on above: small Blood, UA Negative Negative - 50 Asif/mcL [facility] Clarity, UA Clear [facility] Color, UA Yellow [facility] Glucose, UA Negative Negative - 1999(110) ++++ mg/dL [facility] Interpretation and review of laboratory results Abnormal [facility] Ketones, UA Positive Negative - 160(16) ++++ mg/dL [facility] Comment on above: 40mg/dL Leukocytes, UA Negative Negative - 500+++ Shivani/mcL [facility] Nitrite, UA Negative Negative - Positive [facility] pH, UA 6 5 - 9 [facility] Protein, UA Positive Negative - 1999(20) ++++ mg/dL [facility] Comment on above: 30mg/dL Spec Grav, UA 1.025 1 - 1.03 [facility] Urobilinogen, UA 1.0 0.2 - 12 mg/dL [facility] ALL CBC WITH AUTO DIFFon BASOPHILS ABSOLUTE AUTO 0 [facility] Basophils/100 WBC (Bld) 0.3 % 0.2 - 2.0 % [facility] Eosinophils/100 WBC (Bld) 1.6 % 0.9 - 7.0 % [facility] Erythrocyte distribution width (RBC) [Ratio] 12.8 % 11.0 - 15.0 % [facility] Hematocrit (Bld) [Volume fraction] 33.8 % Low 36.0 - 48.0 % [facility] Hemoglobin (Bld) [Mass/Vol] 11.4 g/dL Low 12.0 - 16.0 g/dL [facility] IMMATURE GRANULOCYTES ABS AUTO 0.05 High [facility] Immature granulocytes/100 WBC (Bld) 0.5 % 0.0 - 0.5 % [facility] Interpretation and review of laboratory results Abnormal [facility] LYMPHOCYTES ABSOLUTE AUTO 1.9 [facility] Lymphocytes/100 WBC (Bld) 18.6 % Low 20.5 - 60.0 % [facility] MCH (RBC) [Entitic mass] 29.8 pg 26.7 - 34.0 pg [facility] MCHC (RBC) [Mass/Vol] 33.7 g/dL 29.9 - 35.2 g/dL [facility] MCV (RBC) [Entitic vol] 88.5 fL 81.0 - 99.0 fL [facility] MONOCYTES ABSOLUTE AUTO 0.9 High [facility] Monocytes/100 WBC (Bld) 8.6 % 1.7 - 12.0 % [facility] NEUTROPHILS ABSOLUTE AUTO 7.3 High [facility] Neutrophils/100 WBC (Bld) 70.4 % 43.0 - 75.0 % [facility] Platelet mean volume (Bld) [Entitic vol] 8.9 fL Low 9.5 - 13.5 fL [facility] TBH EO # 0.2 [facility] TB PLT 228 [facility] TB RBC 3.82 Low [facility] TB WBC 10.4 [facility] Urinalysis macro (dipstick) panel (U)on 10-01-2024 Bilirubin, UA Negative Negative - 4(70) +++ mg/dL [facility] Blood, UA Negative Negative - 50 Asif/mcL [facility] Clarity, UA Clear [facility] Color, UA Yellow [facility] Glucose, UA Negative Negative - 1999(110) ++++ mg/dL [facility] Interpretation and review of laboratory results Abnormal [facility] Ketones, UA Positive Negative - 160(16) ++++ mg/dL [facility] Leukocytes, UA Negative Negative - 500+++ Shivani/mcL [facility] Nitrite, UA Negative Negative - Positive [facility] pH, UA 6.5 5 - 9 [facility] Protein, UA Negative Negative - 1999(20) ++++ mg/dL [facility] Spec Grav, UA 1.025 1 - 1.03 [facility] Urobilinogen, UA 1.0 0.2 - 12 mg/dL [facility] AFP, SERUM, OPEN SPINA BIFID Aon 08-14-2024 AFP MOM 1.32 . [facility] AFP VALUE 43.5 ng/mL . [facility] COMMENT: Comment . [facility] Comment on above: Irena Jones , Ph.D., [facility] Director References: Available Upon Request. Multiples Of Median Cutoffs For AFP Elevations Vela 2.5 Black 2.8 IDD 2.0 Twins 4.5 Abbreviation Definitions IDD - Insulin Dep Diabetes OSBR - Open Spina Bifida Risk For further inquiries contact [facility] at [phone]. This test was developed and its performance characteristics determined by [employer]. It has not been cleared or approved by the Food and Drug Administration. Performed at: [facility] [address] [place], [place] [id number] Splicer Helper: Hellen Hinson [facility], Phone: [phone] GEST. AGE ON COLLECTION DATE 18.1 . weeks [facility] GESTAT. AGE BASED ON Ultrasound . [facility] Comment on above: 18.1 on 08/12/2024 Recalculations are not recommended when gestational dating by LMP and ultrasound are within 10 days. INSULIN DEP DIABETES No . [facility] INTERPRETATION Comment . [facility] Comment on above: Interpretation: Scre en Negative [...] Customer Services to discuss available options. The [employer] recommends amniocentesis be offered to women age 35 and older. [age] [facility] MULTIPLE GESTATION No . [facility] OSBR RISK 1 [place] 4529 . [facility] RACE . [facility] RESULTS Report . [facility] TEST RESULTS: Negative . [facility] WEIGHT 239 . lbs [facility] N N ULTRASOUND [id number] 1 18 N 1 Y 239 N N N N N White/ [facility] Urinalysis macro (dipstick) panel (U)on 08-12-2024 Bilirubin, UA Negative Negative - 4(70) +++ mg/dL [facility] Blood, UA Negative Negative - 50 Asif/mcL [facility] Clarity, UA Clear [facility] Color, UA Yellow [facility] Glucose, UA Negative Negative - 2000(110) ++++ mg/dL [facility] Interpretation and review of laboratory results Abnormal [facility] Ketones, UA Positive Negative - 160(16) ++++ mg/dL [facility] Comment on above: trace Leukocytes, UA Negative Negative - 500+++ Shivani/mcL [facility] Nitrite, UA Negative Negative - Positive [facility] pH, UA 6 5 - 9 [facility] Protein, UA Negative Negative - 2000(20) ++++ mg/dL [facility] Spec Grav, UA 1.015 1 - 1.03 [facility] Urobilinogen, UA 0.2 0.2 - 12 mg/dL [facility] Urinalysis macro (dipstick) panel (U)on 07-16-2024 Bilirubin, UA Negative Negative - 4(70) +++ mg/dL [facility] Blood, UA Negative Negative - 50 Asif/mcL [facility] Clarity, UA Clear [facility] Color, UA Yellow [facility] Glucose, UA Negative Negative - 2000(110) ++++ mg/dL [facility] Interpretation and review of laboratory results Normal [facility] Ketones, UA Negative Negative - 160(16) ++++ mg/dL [facility] Leukocytes, UA Negative Negative - 500+++ Shivani/mcL [facility] Nitrite, UA Negative Negative - Positive [facility] pH, UA 5.5 5 - 9 [facility] Protein, UA Negative Negative - 2000(20) ++++ mg/dL [facility] Spec Grav, UA 1.03 1 - 1.03 [facility] Urobilinogen, UA 0.2 0.2 - 12 mg/dL [facility] BLOOD UREA NITROGENon 2023 Urea nitrogen [Mass/Vol] 9 mg/dL Normal 5-23 [facility] Comment on above: Performed By: #### Joao CARABALLO, 3094-0, FORESTRY FIRE AID, LIVR, 5193-8 #### [facility] ([id number]) [address], [address] [place] [address] CBC AND AUTO DIFFon 07-10-20 ABSOLUTE BASOPHIL 0.0 X10E9/L Normal 0.0-0.2 [facility] Comment on above: Performed By: #### Joao CARABALLO, 3094-0, FORESTRY FIRE AID, LIVR, 5193-8 #### [facility] ([id number]) [address], [address] [place] [address] ABSOLUTE NEUTROPHIL 5.1 X10E9/L Normal 1.5-6.6 [facility] Comment on above: Performed By: #### Joao CARABALLO, 3094-0, FORESTRY FIRE AID, LIVR, 5193-8 #### [facility] ([id number]) [address], [address] [place] [address] Basophils/100 WBC (Bld) 0.6 % Normal [facility] Comment on above: Performed By: #### Joao BCA, 3094-0, FORESTRY FIRE AID, LIVR, 5193-8 #### [facility] ([id number]) [address], [address] [place] [address] Eosinophils (Bld) [#/Vol] 0.1 10*3/uL Normal 0.0-0.4 [facility] Comment on above: Performed By: #### C BCA, 3094-0, FORESTRY FIRE AID, LIVR, 5193-8 #### [facility] ([id number]) [address] [address] [place] [address] Eosinophils/100 WBC (Bld) 1.6 % Normal [facility] Comment on above: Performed By: #### C BCA, 3094-0, FORESTRY FIRE AID, LIVR, 519-8 #### [facility] ([id number]) [address] [address] [place] [address] Erythrocyte distribution width (RBC) [Ratio] 13.1 % Normal 11.5-15.0 [facility] Comment on above: Performed By: #### C BCA, 3094-0, FORESTRY FIRE AID, LIVR, 519-8 #### [facility] ([id number]) [address] [address] [place] [address] Hematocrit (Bld) [Volume fraction] 39.1 % Normal 35-47 [facility] Comment on above: Performed By: #### C BCA, 3094-0, FORESTRY FIRE AID, LIVR, 519-8 #### [facility] ([id number]) [address] [address] [place] [address] Hemoglobin (Bld) [Mass/Vol] 13.4 g/dL Normal 11.7-15.5 [facility] Comment on above: Performed By: #### C BCA, 3094-0, FORESTRY FIRE AID, LIVR, 5193-8 #### [facility] ([id number]) [address] [address] [place] [address] Lymphocytes (Bld) [#/Vol] 1.3 10*3/uL Normal 1.0-3.5 [facility] Comment on above: Performed By: #### C BCA, 3094-0, FORESTRY FIRE AID, LIVR, 5193-8 #### [facility] ([id number]) [address], [address] [place] [address] Lymphocytes/100 WBC (Bld) 19.0 % Normal [facility] Comment on above: Performed By: #### C BCA, 3094-0, FORESTRY FIRE AID, LIVR, 8 #### [facility] ([id number]) [address], [address] [place] [address] MCH (RBC) [Entitic mass] 30.6 pg Normal 27-34 [facility] Comment on above: Performed By: #### C BCA, 3094-0, FORESTRY FIRE AID, LIVR, 8 #### [facility] ([id number]) [address], [address] [place] [address] MCHC (RBC) [Mass/Vol] 34.3 g/dL Normal 32-36 [facility] Comment on above: Performed By: #### Joao BCA, 3094-0, FORESTRY FIRE AID, LIVR, 8 #### [facility] ([id number]) [address], [address] [place] [address] MCV (RBC) [Entitic vol] 89 fL Normal 80-100 [facility] Comment on above: Performed By: #### Joao BCA, 3094-0, FORESTRY FIRE AID, LIVR, 8 #### [facility] ([id number]) [address], [address] [place] [address] Monocytes (Bld) [#/Vol] 0.5 10*3/uL Normal 0-0.9 [facility] Comment on above: Performed By: #### Joao BCA, 3094-0, FORESTRY FIRE AID, LIVR, 519-8 #### [facility] ([id number]) [address], [address] [place] [address] Monocytes/100 WBC (Bld) 6.7 % Normal [facility] Comment on above: Performed By: #### Joao BCA, 3094-0, FORESTRY FIRE AID, LIVR, 5192-8 #### [facility] ([id number]) [address], [address] [place] [address] Neutrophils/100 WBC (Bld) 72.1 % Normal [facility] Comment on above: Performed By: #### C BCA, 3094-0, FORESTRY FIRE AID, LIVR, 5193-8 #### [facility] ([id number]) [address], [address] [place] [address] Platelet mean volume (Bld) [Entitic vol] 7.9 fL Normal 7-12 [facility] Comment on above: Performed By: #### C BCA, 3094-0, FORESTRY FIRE AID, LIVR, 5193-8 #### [facility] ([id number]) [address], [address] [place] [address] Platelets (Bld) [#/Vol] 232 10*3/uL Normal 150-450 [facility] Comment on above: Performed By: #### C BCA, 3094-0, FORESTRY FIRE AID, LIVR, 5193-8 #### [facility] ([id number]) [address], [address] [place] [address] RBC COUNT 4.37 X10E12/L Normal 3.80-5.20 [facility] Comment on above: Performed By: #### C BCA, 3094-0, FORESTRY FIRE AID, LIVR, 5193-8 #### [facility] ([id number]) [address], [address] [place] [address] WBC (Bld) [#/Vol] 7.0 10*3/uL Normal 4.0-11.0 [facility] Comment on above: Performed By: #### C BCA, 3094-0, FORESTRY FIRE AID, LIVR, 5193-8 #### [facility] ([id number]) [address], [address] [place] [address] CREATININEon 07-10-2024 Creatinine [Mass/Vol] 0.54 mg/dL Normal 0.40-1.00 [facility] Comment on above: Result Comment: METH OD TRACEABLE TO IDMS STANDARD Performed By: #### C BCA, 3094-0, FORESTRY FIRE AID, LIVR, 5193-8 #### [facility] ([id number]) [address], [address] [address] eGFR (CKD-EPI) NON-RACE DEPENDENT >90 Normal >59 [facility] Comment on above: Result Comment: Reported eGFR is based on the CKD-EPI 2020 equation that does not use a race coefficient. Performed By: #### C BCA, 3094-0, FORESTRY FIRE AID, LIVR, 5193-8 #### [facility] ([id number]) [address], [address] [address] HBV surface Ab IA Qnon 07-10 Anti HBs quant. <8.00 Normal [facility] Comment on above: Result Comment: Vacc inated: >=12mIU/mL, Positive (Immune) Unvaccinated: <8mIU/mL, Negative (Not Immune) 8-11.99 mIU/mL: Indeterminate, (Considered Not Immune) Performed By: #### C BCA, 3094-0, FORESTRY FIRE AID, LIVR, 5193-8 #### [facility] ([id number]) [address] [address] LIVER PANELon 07-10-2024 Albumin [Mass/Vol] 3.8 g/dL Normal 3.2-5.3 [facility] Comment on above: Performed By: #### C BCA, 3094-0, FORESTRY FIRE AID, LIVR, 5193-8 #### [facility] ([id number]) [address] [address] ALP [Catalytic activity/Vol] 44 U/L Normal 39-130 [facility] Comment on above: Performed By: #### C BCA, 3094-0, FORESTRY FIRE AID, LIVR, 5193-8 #### [facility] ([id number]) [address], [address] [place] [address] ALT [Catalytic activity/Vol] 11 U/L Normal 0-31 [facility] Comment on above: Performed By: #### C BCA, 3094-0, FORESTRY FIRE AID, LIVR, 5193-8 #### [facility] ([id number]) [address], [address] [place] [address] AST [Catalytic activity/Vol] 16 U/L Normal 0-41 [facility] Comment on above: Performed By: #### C BCA, 3094-0, FORESTRY FIRE AID, LIVR, 5193-8 #### [facility] ([id number]) [address], [facility] [address] [place] [address] Bilirubin [Mass/Vol] 0.5 mg/dL Normal 0.3-1.2 [facility] Comment on above: Performed By: #### C BCA, 3094-0, FORESTRY FIRE AID, LIVR, 5193-8 #### [facility] ([id number]) [address], [address] [place] [address] Bilirubin.direct [Mass/Vol] 0.1 mg/dL Normal 0.0-0.4 [facility] Comment on above: Performed By: #### C BCA, 3094-0, FORESTRY FIRE AID, LIVR, 5193-8 #### [facility] ([id number]) [address], [facility] [address] [place] [address] Protein [Mass/Vol] 6.5 g/dL Normal 6.0-8.0 [facility] Comment on above: Performed By: #### C BCA, 3094-0, FORESTRY FIRE AID, LIVR, 5193-8 #### [facility] ([id number]) [address], [facility] [address] [place] [address] Unlisted Lab TestOrdered By: Jaci Atwood on 06-26-2024 [facility] TBH TOTAL PROTEIN 24 HOUR UR INEon 06-21-2024 Protein (U) [Mass/Vol] 11.3 mg/dL NINF - 11.9 mg/dL [facility] TBH TOTAL PROTEIN [facility] TOTAL VOLUME 24 HOUR URINE 900 mL/24hr [facility] Urinalysis macro (dipstick) panel (U)on 06-19-2024 Bilirubin, UA Negative Negative - 4(70) +++ mg/dL [facility] Blood, UA Negative Negative - 50 Asif/mcL [facility] Clarity, UA Clear [facility] Color, UA Yellow [facility] Glucose, UA Negative Negative - 1999(110) ++++ mg/dL [facility] Interpretation and review of laboratory results Normal [facility] Ketones, UA Negative Negative - 160(16) ++++ mg/dL [facility] Leukocytes, UA Negative Negative - 500+++ Shivani/mcL [facility] Nitrite, UA Negative Negative - Positive [facility] pH, UA 5.5 5 - 9 [facility] Protein, UA Negative Negative - 1999(20) ++++ mg/dL [facility] Spec Grav, UA 1.020 1 - 1.03 [facility] Urobilinogen, UA 1.0 0.2 - 12 mg/dL [facility] ALL CBC WITH AUTO DIFFon BASOPHILS ABSOLUTE AUTO 0.0 [facility] Basophils/100 WBC (Bld) 0.4 % 0.2 - 2.0 % [facility] Eosinophils/100 WBC (Bld) 1.3 % 0.9 - 7.0 % [facility] Erythrocyte distribution width (RBC) [Ratio] 12.5 % 11.0 - 15.0 % [facility] Hematocrit (Bld) [Volume fraction] 36.9 % 36.0 - 48.0 % [facility] Hemoglobin (Bld) [Mass/Vol] 12.4 g/dL 12.0 - 16.0 g/dL [facility] IMMATURE GRANULOCYTES ABS AUTO 0.02 [facility] Immature granulocytes/100 WBC (Bld) 0.3 % 0.0 - 0.5 % [facility] Interpretation and review of laboratory results Abnormal [facility] LYMPHOCYTES ABSOLUTE AUTO 1.2 [facility] Lymphocytes/100 WBC (Bld) 17.0 % Low 20.5 - 60.0 % [facility] MCH (RBC) [Entitic mass] 29.9 pg 26.7 - 34.0 pg [facility] MCHC (RBC) [Mass/Vol] 33.6 g/dL 29.9 - 35.2 g/dL [facility] MCV (RBC) [Entitic vol] 88.9 fL 81.0 - 99.0 fL [facility] MONOCYTES ABSOLUTE AUTO 0.4 [facility] Monocytes/100 WBC (Bld) 6.0 % 1.7 - 12.0 % [facility] NEUTROPHILS ABSOLUTE AUTO 5.3 [facility] Neutrophils/100 WBC (Bld) 75.0 % 43.0 - 75.0 % [facility] Platelet mean volume (Bld) [Entitic vol] 10.0 fL 9.5 - 13.5 fL [facility] TBH EO # 0.1 [facility] TBH PLT 173 [facility] TBH RBC 4.15 Low [facility] TBH WBC 7.1 [facility] XR knee LT 3V - NOT FOR ER U Yuridia 06-11-2024 XR knee LT 3V - NOT FOR ER USE [facility] [address] [place] [address] XRay Report Signed Patient: Lucila Jacques MR#: [id number] 31 : 1990 Acct:[id number] Age/Sex: 33 / F ADM Date: 06/11/24 Loc: [facility] Room: Type: [facility] Attending Dr: Santa Estrada II, MD [...] Vikki Rivers M.D.06/11/2024 2:26 PM Dictation Location: [place] [address] Transcribed By: [facility] 06/11/24 142 Dictated By: Vikki Rivers MD 06/11/241421 Signed By: 06/11/24 142 Normal [facility] HCG ( test) Ql [...] on 04-29-2024 Amphetamines Ql (U) Negative Negative [facility] Barbiturates [Presence] in U rine by Screen methodOrdered By: Yusef Curran on 04-29-2024 Barbiturates Screen Ql (U) Negative Negative [facility] Benzodiazepines Screen Ql (U )Ordered By: Yusef Curran on 04-29-2024 Benzodiazepines Ql (U) Negative Negative [facility] Benzoylecgonine [Presence] i n Urine by Screen methodOrdered By: Yusef Curran on 04-29-2024 Benzoylecgonine Screen Ql (U) Negative Negative [facility] Cannabinoids [Presence] in U rine by Screen methodOrdered By: Yusef Curran on 04-29-2024 Cannabinoids Screen Ql (U) Negative Negative [facility] Comment on above: These are unconfirme d results and should not be used for legal purposes. Drug Cut-Off Concentration: AMPH 1000 ng/mL SILVIA 200 ng/mL DARLYN 200 ng/mL COCM 300 ng/mL OP 300 ng/mL PCP 25 ng/mL THC 20 ng/mL Drug Screen,Urineon 04-29-20 24 Amphetamine Screen,Urine Negative Normal Negative [facility] Comment on above: Performed By: #### A 1C WTH eA, ALB, [id number], HGB #### [place] [address] [place] #### NICOTINE #### [facility] , Barbiturate Screen,Urine Negative Normal Negative [facility] Comment on above: Performed By: #### A 1C WTH eA, ALB, [id number], HGB #### [place] [address] [place] #### NICOTINE #### [facility] , Benzodiazepines Screen,Urine Negative Normal Negative [facility] Comment on above: Performed By: #### A 1C WTH eA, ALB, [id number], HGB #### [place] [address] [place] #### NICOTINE #### [facility] , Cannabinoid Screen,Urine Negative Normal Negative [facility] Comment on above: Result Comment: Thes e are unconfirmed results and should not be used for legal purposes. Drug Cut-Off Concentration: AMPH 1000 ng/mL SILVIA 200 ng/mL DARLYN 200 ng/mL COCM 300 ng/mL OP 300 ng/mL PCP 25 ng/mL THC 20 ng/mL PERFORMED BY: [place] [address] PATHOLOGIST [employer]URING TECH GENO BENEDICT M.D. Performed By: #### A 1C WTH eA, ALB, [id number], HGB #### [address] #### NICOTINE #### [facility] , Cocaine Screen,Urine Negative Normal Negative [facility] Comment on above: Performed By: #### A 1C WTH eA, ALB, [id number], HGB #### [place] [address] [place] #### NICOTINE #### [facility] , Opiate Screen,Urine Negative Normal Negative [facility] Comment on above: Performed By: #### A 1C WTH eA, ALB, [id number], HGB #### [address] #### NICOTINE #### [facility] , Phencyclidine Screen,Urine Negative Normal Negative [facility] Comment on above: Performed By: #### A 1C WTH eA, ALB, [id number], HGB #### [address] #### NICOTINE #### [facility] , HCG ( test) IA.rapi d Ql (U)Ordered By: Yusef Curran on 04-29-2024 HCG ( test) Ql (U) Negative [facility] HCG,Urineon 04-29-2024 Beta HCG ( test) Ql (U) Negative Normal [facility] Comment on above: Result Comment: PERF ORMED BY: [place] [address] PATHOLOGIST [employer]ING TECH GENO BENEDICT M.D. Performed By: #### U HCG #### [address] [place] 04-29-2024 L Specimen: [id number] Received: 04/29/24 Status: SOUT Req Num: [id number] Spec Type: Surgical Subm Dr: Santa Estrada MD Tissues: A Joint/Knee (LT KNEE) Procedures: HE, Gross/Micro L4, Decalcification Age/ Patient Sex Location Account Attending Physician Lucila Jacques R 33/F ID [id number] Santa Estrada MD SPEC NUM: [id number] RECD: 04/29/24 STATUS: MICHAEL YOUNG NUM: [id number] NIELS: 04/29/24- SUBM DR: Santa Estrada MD ENTERED: 04/29/[address] [facility] [address]: SPEC TYPE: Surgical DEPT: S [...] examination, no sections are submitted. CPT Codes 38490 Specimen: [id number] Received: 04/29/24 Status: ANUPAMABrunilda Young Num: [id number] Spec Type: Surgical Subm Dr: Santa Estrada MD Tissues: A Joint/Knee (LT KNEE) Procedures: HE, Gross/Micro L4, Decalcification Patient: Lucila Jacques [id number] (Continued) Specimen: [id number] Received: 04/29/24 (Continued) Signed (signature on file) ChinNessa Trevizo MD 05/07/24 1703 Specimen: [id number] Received: 04/29/24 Status: MICHAEL Young Num: [id number] Spec Type: Surgical Subm Dr: Santa Estrada MD Tissues: A Joint/Knee (LT KNEE) Procedures: VIKASH Gross/Nithya L4, Decalcification Patient: Lucila Jacques [id number] (Continued) Specimen: [id number] Received: 04/29/24 (Continued) BONE AND TISSUE Specimen: [id number] Received: 04/29/24 Status: MICHAEL Young Num: [id number] Spec Type: Surgical Subm Dr: Santa Estrada MD Tissues: A Joint/Knee (LT KNEE) Procedures: VIKASH Gross/Nithya L4, Decalcification Patient: Lucila Jacques [id number] (Continued) Signed (signature on file) Jamia Trevizo MD 05/07/24 1703 Normal [facility] Opiates [Presence] in Urine by Screen methodOrdered By: Yusef Curran on 04-29-2024 Opiates Screen Ql (U) Negative Negative [facility] Phencyclidine Screen Ql (U)O rdered By: Yusef Curran on 04-29-2024 Phencyclidine Ql (U) Negative Negative [facility] XR knee LT 2Von 04-29-2024 XR knee LT 2V [facility] [place] [address] XRay Report Signed Patient: Lucila Jacques MR#: [id number] [birth year] : 1990 Acct:[id number] Age/Sex: 33 / F ADM Date: 04/29/24 Loc: ID Room: Type: [facility] Attending Dr: Santa Estrada II, [...] Harmeet Lopez M.D.04/29/2024 2:44 PM Dictation Location: [place] [address] Transcribed By: [facility] 04/29/24 1444 Dictated By: Harmeet Lopez DO 04/29/24 144 Signed By: 04/29/24 144 Normal [facility] XR tibia fibula LT 2V*on XR tibia fibula LT 2V* 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 [facility] Comment on above: Performed By: #### B MP, CBC #### [place] [address] [place] #### NICOTINE, FRUC #### [facility] , Automated basophil countOrde red By: Santa Estrada on 04-15-2024 Basophils (Bld) [#/Vol] 0.0 10*3/uL 0.0-0.2 [facility] Comment on above: Result Comment: PERF ORMED BY: [place] [address] PATHOLOGIST [employer] L[employer] MANUFACTURING TECH GENO BENEDICT M.D. Performed By: #### B MP, CBC #### [place] [address] [place] #### NICOTINE, FRUC #### [facility] , Automated blood monocyte cou ntOrdered By: Santa Estrada on 04-15-2024 Monocytes (Bld) [#/Vol] 0.3 10*3/uL 0.0-0.8 [facility] Comment on above: Performed By: #### B MP, CBC #### [place] [address] [place] #### NICOTINE, FRUC #### [facility] , Automated eosinophil %Ordere d By: Santa Estrada on 04-15-2024 Eosinophils/100 WBC (Bld) 3.0 % . [facility] Comment on above: Performed By: #### B MP, CBC #### [place] [address] [place] #### NICOTINE, FRUC #### [facility] , Automated eosinophil countOr dered By: Santa Estrada on 04-15-2024 Eosinophils (Bld) [#/Vol] 0.1 10*3/uL 0.0-0.45 [facility] Comment on above: Performed By: #### B MP, CBC #### [facility] [address] [place] [address] [place] #### NICOTINE, FRUC #### [facility] , Automated monocyte %Ordered By: Santa Estrada on 04-15-2024 Monocytes/100 WBC (Bld) 7.6 % . [facility] Comment on above: Performed By: #### B MP, CBC #### [place] [address] [place] #### NICOTINE, FRUC #### [facility] , Automated neutrophil %Ordere d By: Santa Estrada on 04-15-2024 Neutrophils/100 WBC (Bld) 55.1 % . [facility] Comment on above: Performed By: #### B MP, CBC #### [place] [address] [place] #### NICOTINE, FRUC #### [facility] , Basic Metabolic Panelon 03-26 GFR/1.73 sq M.predicted MDRD (S/P/Bld) [Vol rate/Area] mL/min/{1.73_m2} Normal [facility] Comment on above: Performed By: #### A 1C WTH eA, ALB, [id number], HGB #### [place] [address] [place] #### NICOTINE #### [facility] , Bilirubin Test strip Ql (U)O rdered By: Santa Estrada on 04-15-2024 Bilirubin Ql (U) Negative Negative [facility] Calcium [Mass/volume] in Ser um or PlasmaOrdered By: Santa Estrada on 04-15-2024 Calcium [Mass/Vol] 9.0 mg/dL 8.6-10.3 [facility] Comment on above: Result Comment: PERF ORMED BY: [place] [address] PATHOLOGIST [employer] L[employer] MANUFACTURING TECH GENO BENEDICT M.D. Performed By: #### A 1C WTH eA, ALB, [id number], HGB #### [place] [address] [place] #### NICOTINE #### [facility] , Carbon dioxide, total [Moles /volume] in Serum or PlasmaOrdered By: Santa Estrada on 04-15-2024 CO2 [Moles/Vol] 26.3 mmol/L 21.0-31.0 [facility] Comment on above: Performed By: #### A 1C WTH eA, ALB, [id number], HGB #### [address] #### NICOTINE #### [facility] , Chloride [Moles/volume] in S liam or PlasmaOrdered By: Santa Estrada on 04-15-2024 Chloride [Moles/Vol] 106 mmol/L 98-107 [facility] Comment on above: Performed By: #### A 1C WTH eA, ALB, [id number], HGB #### [address] #### NICOTINE #### [facility] , Color of Urine by AutoOrdere d By: Santa Estrada on 04-15-2024 Color (U) Yellow Yellow [facility] Comment on above: Order Comment: Name Collection Type:: Clean-Voided Midstream Performed By: #### U A #### [address] Complete Blood Count Auto Di ffon 04-15-2024 Mean Corpuscular HGB Conc 34.0 g/dL Normal 32.0-35.0 [facility] Comment on above: Performed By: #### B MP, CBC #### [place] [address] [place] #### NICOTINE, FRUC #### [facility] , NRBC% 0.1 /100{WBC} Normal 0-0.5 [facility] Comment on above: Performed By: #### B MP, CBC #### [place] [address] [place] #### NICOTINE, FRUC #### [facility] , Cotinine [Mass/volume] in Se rum or PlasmaOrdered By: Santa Estrada on 04-15-2024 Cotinine [Mass/Vol] <1.0 ng/mL . [facility] Comment on above: This test was develo ped and its performance characteristicsdetermined by [employer]. It has not been cleared orapproved by the Food and Drug Administration.Cotinine levels greater than 20.0 are consistent with theuse of tobacco or tobacco cessation products.Performed at: [facility] [id number] Director: Marcellus Dave MD, Phone: [phone] Creatinine [Mass/volume] in Serum or PlasmaOrdered By: Santa Estrada on 04-15-2024 Creatinine [Mass/Vol] 0.65 mg/dL 0.60-1.20 [facility] Comment on above: Performed By: #### A 1C WTH eA, ALB, [id number], HGB #### [facility] [address] [place] [address] #### NICOTINE #### [facility] , Erythrocyte distribution wid th [Ratio] by Automated countOrdered By: Santa Estrada on 04-15-2024 Erythrocyte distribution width (RBC) [Ratio] 13.2 % 11.9-15.3 [facility] Comment on above: Performed By: #### B MP, CBC #### [facility] [address] [place] [address] #### NICOTINE, FRUC #### [facility] , Erythrocytes [#/volume] in B lood by Automated countOrdered By: Santa Estrada on 04-15-2024 RBC (Bld) [#/Vol] 4.52 10*6/uL 3.60-5.00 [facility] Comment on above: Performed By: #### B MP, CBC #### [facility] [address] [place] [address] [place] #### NICOTINE, FRUC #### [facility] , Fructosamineon 04-15-2024 Fructosamine 219 umol/L Normal 0-285 [facility] Comment on above: Result Comment: Publ ished reference interval for apparently healthy subjects between age 20 and 60 is 205 - 285 umol/L and in a poorly controlled diabetic population is 228 - 563 umol/L with a mean of 396 umol/L. Performed at: [facility] [address] [place], [place] [id number] Splicer Helper: Dario West PhD, Phone: [phone] Performed By: #### A 1C WTH eA, ALB, [id number], HGB #### [address] #### NICOTINE #### [facility] , Fructosamine [Moles/volume] in Serum or PlasmaOrdered By: Santa Estrada on 04-15-2024 Fructosamine [Moles/Vol] 219 umol/L 0-285 [facility] Comment on above: Published reference interval for apparently healthysubjects between age 20 and 60 is 205 - 285 umol/L and in apoorly controlled diabetic population is 228 - 563 umol/Lwith a mean of 396 umol/L.Performed at: [facility] [id number] Director: Dario West PhD, Phone: [phone] Glucose [Mass/volume] in Ser um or PlasmaOrdered By: Santa Estrada on 04-15-2024 Glucose [Mass/Vol] 88 mg/dL 70-100 [facility] Comment on above: ADA recommended refe rence rangeRandom Glucose Reference Range is dependent on time and content of last meal. Glucose of more than 200 mg/dL in a nonstressed, ambulatory subject supports the diagnosis of Diabetes Mellitus. Result Comment: Wirtz om Glucose Reference Range is dependent on time and content of last meal. Glucose of more than 200 mg/dL in a nonstressed, ambulatory subject supports the diagnosis of Diabetes Mellitus. ADA recommended reference range Performed By: #### A 1C WTH eA, ALB, [id number], HGB #### [place] [address] [place] #### NICOTINE #### [facility] , Hematocrit [Volume Fraction] of Blood by Automated countOrdered By: Santa Estrada on 04-15-2024 Hematocrit (Bld) [Volume fraction] 40.4 % 34.0-46.4 [facility] Comment on above: Performed By: #### B MP, CBC #### [facility] [address] [place] [address] [place] #### NICOTINE, FRUC #### [facility] , Hemoglobin [Mass/volume] in BloodOrdered By: Santa Estrada on 04-15-2024 Hemoglobin (Bld) [Mass/Vol] 13.7 g/dL 11.8-15.4 [facility] Comment on above: Performed By: #### B MP, CBC #### [place] [address] [place] #### NICOTINE, FRUC #### [facility] , Ketones Auto test strip (U) [Mass/Vol]Ordered By: Santa Estrada on 04-15-2024 Ketones (U) [Mass/Vol] Negative Negative [facility] Leukocytes [#/volume] correc perla for nucleated erythrocytes in Blood by Automated counOrdered By: Santa Estrada on 04-15-2024 WBC corrected for nucl RBC Auto (Bld) [#/Vol] 4.1 10*3/uL 3.8-11.6 [facility] Leukocytes [#/volume] in Blo od by Automated countOrdered By: Santa Estrada on 04-15-2024 WBC (Bld) [#/Vol] 4.1 10*3/uL 3.8-11.6 [facility] Comment on above: Performed By: #### B MP, CBC #### [facility] [address] [place] [address] [place] #### NICOTINE, FRUC #### [facility] , Lymphocytes [#/volume] in Bl ood by Automated countOrdered By: Santa Estrada on 04-15-2024 Lymphocytes (Bld) [#/Vol] 1.4 10*3/uL 1.00-4.8 [facility] Comment on above: Performed By: #### B MP, CBC #### [facility] [address] [place] [address] [place] #### NICOTINE, FRUC #### [facility] , Lymphocytes/100 leukocytes i n Blood by Automated countOrdered By: Santa Estrada on 04-15-2024 Lymphocytes/100 WBC (Bld) 33.6 % . [facility] Comment on above: Performed By: #### B MP, CBC #### [place] [address] [place] #### NICOTINE, FRUC #### [facility] , MCH [Entitic mass] by Automa perla countOrdered By: Santa Estrada on 04-15-2024 MCH (RBC) [Entitic mass] 30.4 pg 24.7-34.3 [facility] Comment on above: Performed By: #### B MP, CBC #### [address] #### NICOTINE, FRUC #### [facility] , MCHC Auto (RBC) [Mass/Vol]Or dered By: Santa Estrada on 04-15-2024 MCHC (RBC) [Mass/Vol] 34.0 g/dL 32.0-35.0 [facility] MCV [Entitic volume] by Auto mated countOrdered By: Santa Estrada on 04-15-2024 MCV (RBC) [Entitic vol] 89.4 fL 80-100 [facility] Comment on above: Performed By: #### B MP, CBC #### [place] [address] [place] #### NICOTINE, FRUC #### [facility] , Neutrophils [#/volume] in Bl ood by Automated countOrdered By: Santa Estrada on 04-15-2024 Neutrophils (Bld) [#/Vol] 2.2 10*3/uL 1.8-7.7 [facility] Comment on above: Performed By: #### B MP, CBC #### [place] [address] [place] #### NICOTINE, FRUC #### [facility] , Nicotine [Mass/volume] in Se rum or PlasmaOrdered By: Santa Estrada on 04-15-2024 Nicotine [Mass/Vol] <1.0 ng/mL . [facility] Comment on above: This test was develo ped and its performance characteristicsdetermined by [facility]. It has not been cleared orapproved by the Food and Drug Administration.Nicotine levels greater than 2.0 are consistent with theuse of tobacco or tobacco cessation products. Nicotine/Cotinine Bloodon Cotinine, Blood <1.0 Normal . [facility] Comment on above: Result Comment: This test was developed and its performance characteristics determined by [facility]. It has not been cleared or approved by the Food and Drug Administration. Cotinine levels greater than 20.0 are consistent with the use of tobacco or tobacco cessation products. Performed at: [address] [id number] Splicer Helper: Marcellus Dave MD, Phone: [phone] PERFORMED BY: [place] [address] PATHOLOGIST OPTICAL LENS MANUFACTURING TECH GENO BENEDICT M.D. Performed By: #### A 1C WT eA, ALB, [id number], HGB #### [address] #### NICOTINE #### [facility] , Nicotine, Blood <1.0 Normal . [facility] Comment on above: Result Comment: This test was developed and its performance characteristics determined by [facility]. It has not been cleared or approved by the Food and Drug Administration. Nicotine levels greater than 2.0 are consistent with the use of tobacco or tobacco cessation products. Performed By: #### A 1C WTH eA, ALB, [id number], HGB #### [place] [address] [place] #### NICOTINE #### [facility] , Nitrite Test strip Ql (U)Ord ered By: Santa Estrada on 04-15-2024 Nitrite Ql (U) Negative Negative [facility] No Panel InformationOrdered By: Santa Estrada on 04-15-2024 Estimated GFR (CKD-EPI) > 60.0 mL/Min [facility] Creatinine Clearance (Chem N/A [facility] Nucleated erythrocytes [Pres ence] in Blood by Automated countOrdered By: Santa Estrada on 04-15-2024 Nucleated RBC Auto Ql (Bld) 0.1 /100{WBC} 0-0.5 [facility] PST Type and Screenon 2023 ABO and Rh group Nom (Bld) Blood group O Rh(D) positive Normal [facility] Comment on above: Order Comment: Date of Surgery: [id number] Result Comment: PERF ORMED BY: [place] [address] PATHOLOGIST OPTICAL LENS MANUFACTURING TECH GENO BENEDICT M.D. Platelet mean volume [Entiti c volume] in Blood by Automated countOrdered By: Santa Estrada on 04-15-2024 Platelet mean volume (Bld) [Entitic vol] 7.3 fL 6.3-10.7 [facility] Comment on above: Performed By: #### B MP, CBC #### [facility] [address] [place] [address] #### NICOTINE, FRUC #### [facility] , Platelets [#/volume] in Bloo d by Automated countOrdered By: Santa Estrada on 04-15-2024 Platelets (Bld) [#/Vol] 230 10*3/uL 150-450 [facility] Comment on above: Performed By: #### B MP, CBC #### [facility] [address] [place] [address] [place] #### NICOTINE, FRUC #### [facility] , Potassium [Moles/volume] in Serum or PlasmaOrdered By: Santa Estrada on 04-15-2024 Potassium [Moles/Vol] 4.0 mmol/L 3.5-5.1 [facility] Comment on above: Performed By: #### A 1C WTH eA, ALB, [id number], HGB #### [place] [address] [place] #### NICOTINE #### [facility] , Protein Auto test strip (U) [Mass/Vol]Ordered By: Santa Estrada on 04-15-2024 Protein (U) [Mass/Vol] Negative Negative [facility] Serum or plasma anion gap de terminationOrdered By: Santa Estrada on 04-15-2024 Anion gap [Moles/Vol] 6.7 mmol/L 6.0-15.0 [facility] Comment on above: Performed By: #### A 1C WT eA, ALB, [id number], HGB #### [place] [address] [place] #### NICOTINE #### [facility] , Sodium [Moles/volume] in Ser um or PlasmaOrdered By: Santa Estrada on 04-15-2024 Sodium [Moles/Vol] 135 mmol/L Low 136-145 [facility] Comment on above: Performed By: #### A 1C WTH eA, ALB, [id number], HGB #### [address] #### NICOTINE #### [facility] , Specific gravity Auto test s trip (U) [Rel density]Ordered By: Santa Estrada on 04-15-2024 Specific gravity (U) [Rel density] 1.009 1.001-1.03 0 [facility] Urea nitrogen [Mass/volume] in Serum or PlasmaOrdered By: Santa Estrada on 04-15-2024 Urea nitrogen [Mass/Vol] 10 mg/dL 7-25 [facility] Comment on above: Performed By: #### A 1C WTH eA, ALB, [id number], HGB #### [place] [address] [place] #### NICOTINE #### [facility] , Urinalysison 04-15-2024 Appearance (U) Clear Normal Clear [facility] Comment on above: Order Comment: Name Collection Type:: Clean-Voided Midstream Performed By: #### U A #### [facility] [address] [place] [address] [place] Bilirubin,Urine Negative Normal Negative [facility] Comment on above: Order Comment: Name Collection Type:: Clean-Voided Midstream Performed By: #### U A #### [facility] [address] [place] [address] [place] Glucose Ql (U) Normal Normal Normal [facility] Comment on above: Order Comment: Name Collection Type:: Clean-Voided Midstream Performed By: #### U A #### [facility] [address] [place] [address] [place] Ketones Ql (U) Negative Normal Negative [facility] Comment on above: Order Comment: Name Collection Type:: Clean-Voided Midstream Performed By: #### U A #### [place] [address] [place] Leukocyte esterase Test strip Ql (U) Negative Normal Negative [facility] Comment on above: Order Comment: Name Collection Type:: Clean-Voided Midstream Performed By: #### U A #### [place] [address] [place] Nitrite,Urine Negative Normal Negative [facility] Comment on above: Order Comment: Name Collection Type:: Clean-Voided Midstream Performed By: #### U A #### [place] [address] [place] Occult Blood,Urine Negative Normal Negative [facility] Comment on above: Order Comment: Name Collection Type:: Clean-Voided Midstream Result Comment: PERF ORMED BY: [place] [address] PATHOLOGIST [employer] L[employer] MANUFACTURING TECH GENO BENEDICT M.D. Performed By: #### U A #### [place] [address] [place] Protein,Urine Negative Normal Negative [facility] Comment on above: Order Comment: Name Collection Type:: Clean-Voided Midstream Performed By: #### U A #### [facility] [address] Specificy [place],Urine 1.009 Normal 1.001-1.03 0 [facility] Comment on above: Order Comment: Name Collection Type:: Clean-Voided Midstream Performed By: #### U A #### [address] Urobilinogen,Urine Normal Normal Normal [facility] Comment on above: Order Comment: Name Collection Type:: Clean-Voided Midstream Performed By: #### U A #### [address] Urine clarity by refractomet ry automatedOrdered By: Santa Estrada on 04-15-2024 Clarity Refractometry automated (U) Clear Clear [facility] Urine glucose measurement by automated test strip (mass/volume)Ordered By: Santa Estrada on 04-15-2024 Glucose Auto test strip (U) [Mass/Vol] Normal mg/dL Normal [facility] Urine hemoglobin detection b y automated test stripOrdered By: Santa Estrada on 04-15-2024 Hemoglobin Auto test strip Ql (U) Negative Negative [facility] Urine leukocyte esterase det ection by automated test stripOrdered By: Santa Estrada on 04-15-2024 Leukocyte esterase Auto test strip Ql (U) Negative Negative [facility] Urine pH measurement by auto mated test stripOrdered By: Santa Estrada on 04-15-2024 pH (U) 8.0 [pH] 5.0-9.0 [facility] Comment on above: Order Comment: Name Collection Type:: Clean-Voided Midstream Performed By: #### U A #### [facility] [address] [place] [address] Urobilinogen Auto test strip (U) [Mass/Vol]Ordered By: Santa Estrada on 04-15-2024 Urobilinogen (U) [Mass/Vol] Normal mg/dL Normal [facility] CBC with Diffon 03-14-2024 Abs. Basophil 0.06 k/uL Normal 0.00-0.20 [facility] Comment on above: Performed By: #### C DP, VD25, FEBC, AHCV, GLYHGB, HIVCMB, TSHX, FERI, LIPRF, B12, CP #### [place] [address] Splicer Helper: Isreal Astorga MD Abs.Imm.Granulocyte <0.03 Normal 0.00-0.30 [facility] Comment on above: Performed By: #### C DP, VD25, FEBC, AHCV, GLYHGB, HIVCMB, TSHX, FERI, LIPRF, B12, CP #### [place] [address] Splicer Helper: Isreal Astorga MD Abs.Neutrophil (Seg) 2.66 k/uL Normal 1.50-8.10 [facility] Comment on above: Performed By: #### C DP, VD25, FEBC, AHCV, GLYHGB, HIVCMB, TSHX, FERI, LIPRF, B12, CP #### [place] [address] Splicer Helper: Isreal Astorga MD Basophils/100 WBC (Bld) 1 % Normal 0-2 [facility] Comment on above: Performed By: #### C DP, VD25, FEBC, AHCV, GLYHGB, HIVCMB, TSHX, FERI, LIPRF, B12, CP #### [place] [address] Splicer Helper: Isreal Astorga MD Eosinophils (Bld) [#/Vol] 0.28 10*3/uL Normal 0.00-0.44 [facility] Comment on above: Performed By: #### C DP, VD25, FEBC, AHCV, GLYHGB, HIVCMB, TSHX, FERI, LIPRF, B12, CP #### [place] [address] Splicer Helper: Isreal Astorga MD Eosinophils/100 WBC (Bld) 5 % High 1-4 [facility] Comment on above: Performed By: #### C DP, VD25, FEBC, AHCV, GLYHGB, HIVCMB, TSHX, FERI, LIPRF, B12, CP #### [address] [id number] Splicer Helper: Isreal Asotrga MD Erythrocyte distribution width (RBC) [Ratio] 12.6 % Normal 11.8-14.4 [facility] Comment on above: Performed By: #### C DP, VD25, FEBC, AHCV, GLYHGB, HIVCMB, TSHX, FERI, LIPRF, B12, CP #### [place] [id number] Splicer Helper: Isreal Astorga MD Hematocrit (Bld) [Volume fraction] 38.8 % Normal 36.3-47.1 [facility] Comment on above: Performed By: #### C DP, VD25, FEBC, AHCV, GLYHGB, HIVCMB, TSHX, FERI, LIPRF, B12, CP #### [place] [address] Splicer Helper: Isreal Astorga MD Hemoglobin (Bld) [Mass/Vol] 12.9 g/dL Normal 11.9-15.1 [facility] Comment on above: Performed By: #### C DP, VD25, FEBC, AHCV, GLYHGB, HIVCMB, TSHX, FERI, LIPRF, B12, CP #### [place] [id number] Splicer Helper: Isreal Astorga MD Immature granulocytes/100 WBC (Bld) 0 % Normal 0 [facility] Comment on above: Performed By: #### C DP, VD25, FEBC, AHCV, GLYHGB, HIVCMB, TSHX, FERI, LIPRF, B12, CP #### [address] [phone] Splicer Helper: Isreal Astorga MD Lymphocytes (Bld) [#/Vol] 1.69 10*3/uL Normal 1.10-3.70 [facility] Comment on above: Performed By: #### C DP, VD25, FEBC, AHCV, GLYHGB, HIVCMB, TSHX, FERI, LIPRF, B12, CP #### [address] [phone] Splicer Helper: Isreal Astorga MD Lymphocytes/100 WBC (Bld) 33 % Normal 24-43 [facility] Comment on above: Performed By: #### C DP, VD25, FEBC, AHCV, GLYHGB, HIVCMB, TSHX, FERI, LIPRF, B12, CP #### [place] [phone] Splicer Helper: Isreal Astorga MD MCH (RBC) [Entitic mass] 29.9 pg Normal 25.2-33.5 [facility] Comment on above: Performed By: #### C DP, VD25, FEBC, AHCV, GLYHGB, HIVCMB, TSHX, FERI, LIPRF, B12, CP #### [facility] [employer] [address] [place] [address] [phone] Splicer Helper: Isreal Astorga MD MCHC (RBC) [Mass/Vol] 33.2 g/dL Normal 28.4-34.8 [facility] Comment on above: Performed By: #### C DP, VD25, FEBC, AHCV, GLYHGB, HIVCMB, TSHX, FERI, LIPRF, B12, CP #### [facility] [employer] [address] [place] [address] [phone] Splicer Helper: Isreal Astorga MD MCV (RBC) [Entitic vol] 89.8 fL Normal 82.6-102.9 [facility] Comment on above: Performed By: #### C DP, VD25, FEBC, AHCV, GLYHGB, HIVCMB, TSHX, FERI, LIPRF, B12, CP #### [address] [phone] Splicer Helper: Isreal Astorga MD Monocytes (Bld) [#/Vol] 0.47 10*3/uL Normal 0.10-1.20 [facility] Comment on above: Performed By: #### C DP, VD25, FEBC, AHCV, GLYHGB, HIVCMB, TSHX, FERI, LIPRF, B12, CP #### [address] [phone] Splicer Helper: Isreal Astorga MD Monocytes/100 WBC (Bld) 9 % Normal 3-12 [facility] Comment on above: Performed By: #### C DP, VD25, FEBC, AHCV, GLYHGB, HIVCMB, TSHX, FERI, LIPRF, B12, CP #### [address] [address] Splicer Helper: Isreal Astorga MD Neutrophil (Seg) 52 % Normal 36-65 [facility] Comment on above: Performed By: #### C DP, VD25, FEBC, AHCV, GLYHGB, HIVCMB, TSHX, FERI, LIPRF, B12, CP #### [place] [address] Splicer Helper: Isreal Astorga MD NRBC Automated 0.0 per 100 WBC Normal 0.0 [facility] Comment on above: Performed By: #### C DP, VD25, FEBC, AHCV, GLYHGB, HIVCMB, TSHX, FERI, LIPRF, B12, CP #### [address] [phone] Splicer Helper: Isreal Astorga MD Platelet mean volume (Bld) [Entitic vol] 9.7 fL Normal 8.1-13.5 [facility] Comment on above: Performed By: #### C DP, VD25, FEBC, AHCV, GLYHGB, HIVCMB, TSHX, FERI, LIPRF, B12, CP #### [address] [phone] Splicer Helper: Isreal Astorga MD Platelets (Bld) [#/Vol] 256 10*3/uL Normal 138-453 [facility] Comment on above: Performed By: #### C DP, VD25, FEBC, AHCV, GLYHGB, HIVCMB, TSHX, FERI, LIPRF, B12, CP #### [address] [phone] Splicer Helper: Isreal Astorga MD RBC (Bld) [#/Vol] 4.32 10*6/uL Normal 3.95-5.11 [facility] Comment on above: Performed By: #### C DP, VD25, FEBC, AHCV, GLYHGB, HIVCMB, TSHX, FERI, LIPRF, B12, CP #### [address] [phone] Splicer Helper: Isreal Astorga MD WBC (Bld) [#/Vol] 5.2 10*3/uL Normal 3.5-11.3 [facility] Comment on above: Performed By: #### C DP, VD25, FEBC, AHCV, GLYHGB, HIVCMB, TSHX, FERI, LIPRF, B12, CP #### [address] [address] Splicer Helper: Isreal Astorga MD Comp Metabolic Profon 2023 Albumin [Mass/Vol] 4.2 g/dL Normal 3.5-5.2 [facility] Comment on above: Performed By: #### C DP, VD25, FEBC, AHCV, GLYHGB, HIVCMB, TSHX, FERI, LIPRF, B12, CP #### [address] [id number] Splicer Helper: Isreal Astorga MD Albumin/Glob Ratio 2.0 Normal 1.0-2.5 [facility] Comment on above: Performed By: #### C DP, VD25, FEBC, AHCV, GLYHGB, HIVCMB, TSHX, FERI, LIPRF, B12, CP #### [address] [phone] Splicer Helper: Isreal Astorga MD Alkaline Phos 72 U/L Normal 35-104 [facility] Comment on above: Performed By: #### C DP, VD25, FEBC, AHCV, GLYHGB, HIVCMB, TSHX, FERI, LIPRF, B12, CP #### [address] [phone] Splicer Helper: Isreal Astorga MD ALT [Catalytic activity/Vol] 21 U/L Normal 10-35 [facility] Comment on above: Performed By: #### C DP, VD25, FEBC, AHCV, GLYHGB, HIVCMB, TSHX, FERI, LIPRF, B12, CP #### [address] [address] Splicer Helper: Isreal Astorga MD Anion gap [Moles/Vol] 8 mmol/L Low 9-16 [facility] Comment on above: Performed By: #### C DP, VD25, FEBC, AHCV, GLYHGB, HIVCMB, TSHX, FERI, LIPRF, B12, CP #### [address] [address] Splicer Helper: Isreal Astorga MD AST [Catalytic activity/Vol] 23 U/L Normal 10-35 [facility] Comment on above: Performed By: #### C DP, VD25, FEBC, AHCV, GLYHGB, HIVCMB, TSHX, FERI, LIPRF, B12, CP #### [address] [address] Splicer Helper: Isreal Astorga MD Bilirubin [Mass/Vol] 0.4 mg/dL Normal 0.00-1.20 [facility] Comment on above: Performed By: #### C DP, VD25, FEBC, AHCV, GLYHGB, HIVCMB, TSHX, FERI, LIPRF, B12, CP #### [address] [phone] Splicer Helper: Isreal Astorga MD Calcium [Mass/Vol] 8.8 mg/dL Normal 8.6-10.4 [facility] Comment on above: Performed By: #### C DP, VD25, FEBC, AHCV, GLYHGB, HIVCMB, TSHX, FERI, LIPRF, B12, CP #### [address] [phone] Splicer Helper: Isreal Astorga MD Chloride [Moles/Vol] 106 mmol/L Normal 98-107 [facility] Comment on above: Performed By: #### C DP, VD25, FEBC, AHCV, GLYHGB, HIVCMB, TSHX, FERI, LIPRF, B12, CP #### [address] [phone] Splicer Helper: Isreal Astorga MD CO2 [Moles/Vol] 25 mmol/L Normal 20-31 [facility] Comment on above: Performed By: #### C DP, VD25, FEBC, AHCV, GLYHGB, HIVCMB, TSHX, FERI, LIPRF, B12, CP #### [address] [address] Splicer Helper: Isreal Astorga MD Creatinine [Mass/Vol] 0.7 mg/dL Normal 0.50-0.90 [facility] Comment on above: Performed By: #### C DP, VD25, FEBC, AHCV, GLYHGB, HIVCMB, TSHX, FERI, LIPRF, B12, CP #### [address] [phone] Splicer Helper: Isreal Astorga MD GFR/1.73 sq M.predicted among non-blacks MDRD (S/P/Bld) [Vol rate/Area] mL/min/{1.73_m2} Normal >60 [facility] Comment on above: Result Comment: These results [...] HIVCMB, TSHX, FERI, LIPRF, B12, CP #### [place] [address] Splicer Helper: Isreal Astorga MD Glucose [Mass/Vol] 94 mg/dL Normal 74-99 [facility] Comment on above: Performed By: #### C DP, VD25, FEBC, AHCV, GLYHGB, HIVCMB, TSHX, FERI, LIPRF, B12, CP #### [place] [address] Splicer Helper: Isreal Astorga MD Potassium [Moles/Vol] 3.8 mmol/L Normal 3.7-5.3 [facility] Comment on above: Performed By: #### C DP, VD25, FEBC, AHCV, GLYHGB, HIVCMB, TSHX, FERI, LIPRF, B12, CP #### [address] [phone] Splicer Helper: Isreal Astorga MD Protein [Mass/Vol] 6.7 g/dL Normal 6.6-8.7 [facility] Comment on above: Performed By: #### C DP, VD25, FEBC, AHCV, GLYHGB, HIVCMB, TSHX, FERI, LIPRF, B12, CP #### [address] [phone] Splicer Helper: Isreal Astorga MD Sodium [Moles/Vol] 139 mmol/L Normal 136-145 [facility] Comment on above: Performed By: #### C DP, VD25, FEBC, AHCV, GLYHGB, HIVCMB, TSHX, FERI, LIPRF, B12, CP #### [address] [phone] Splicer Helper: Isreal Astorga MD Urea nitrogen [Mass/Vol] 12 mg/dL Normal 6-20 [facility] Comment on above: Performed By: #### C DP, VD25, FEBC, AHCV, GLYHGB, HIVCMB, TSHX, FERI, LIPRF, B12, CP #### [address] [phone] Splicer Helper: Isreal Astorga MD Ferritinon 2 Ferritin [Mass/Vol] 133 ng/mL Normal 13-150 [facility] Comment on above: Result Comment: FERRITIN Reference Ranges: Adult Males 20 - 60 years: 30 - 400 ng/mL Adult females 17 - 60 years: 13 - 150 ng/mL Adults greater than 60 years: no established reference range Pediatrics: no established reference range Performed By: #### C DP, VD25, FEBC, AHCV, GLYHGB, HIVCMB, TSHX, FERI, LIPRF, B12, CP #### [address] [phone] Splicer Helper: Isreal Astorga MD HIV Ag/Abon 03-14-2024 HIV Ag/Ab Non-Reactive Normal NR [facility] Comment on above: Result Comment: No l aboratory evidence of HIV infection. If acute HIV infection is suspected, consider testing for HIV-1 RNA. Performed By: #### C DP, VD25, FEBC, AHCV, GLYHGB, HIVCMB, TSHX, FERI, LIPRF, B12, CP #### [address] [address] Splicer Helper: Isreal Astorga MD Hemoglobin A1Con 03-14-2024 Glucose [Mass/Vol] 94 mg/dL Normal [facility] Comment on above: Result Comment: The ADA and AACC recommend providing the estimated average glucose result to permit better patient understanding of their HBA1c result. Performed By: #### C DP, VD25, FEBC, AHCV, GLYHGB, HIVCMB, TSHX, FERI, LIPRF, B12, CP #### [address] [address] Splicer Helper: Isreal Astorga MD HbA1c (Bld) [Mass fraction] 4.9 % Normal 4.0-6.0 [facility] Comment on above: Performed By: #### C DP, VD25, FEBC, AHCV, GLYHGB, HIVCMB, TSHX, FERI, LIPRF, B12, CP #### [address] [address] Splicer Helper: Isreal Astorga MD Hep C Abon 03-14-2024 Hep C Ab Non-Reactive Normal NR [facility] Comment on above: Result Comment: The hepatitis [...] HIVCMB, TSHX, FERI, LIPRF, B12, CP #### [facility] [employer] [address] [place] [address] [phone] Splicer Helper: Isreal Astorga MD Iron Binding Cap.on 03-14-20 24 % Fe Saturation 44 % Normal 20-55 [facility] Comment on above: Performed By: #### C DP, VD25, FEBC, AHCV, GLYHGB, HIVCMB, TSHX, FERI, LIPRF, B12, CP #### [address] [phone] Splicer Helper: Isreal Astorga MD Iron [Mass/Vol] 107 ug/dL Normal 37-145 [facility] Comment on above: Performed By: #### C DP, VD25, FEBC, AHCV, GLYHGB, HIVCMB, TSHX, FERI, LIPRF, B12, CP #### [address] [address] Splicer Helper: Isreal Astorga MD Total Fe Binding Cap 243 ug/dL Low 250-450 [facility] Comment on above: Performed By: #### C DP, VD25, FEBC, AHCV, GLYHGB, HIVCMB, TSHX, FERI, LIPRF, B12, CP #### [facility] [employer] [address] [place] [phone] Splicer Helper: Isreal Astorga MD Unbound Fe Bind Cap 136 ug/dL Normal 112-347 [facility] Comment on above: Performed By: #### C DP, VD25, FEBC, AHCV, GLYHGB, HIVCMB, TSHX, FERI, LIPRF, B12, CP #### [facility] [employer] [address] [place] [phone] Splicer Helper: Isreal Astorga MD Lipid Prof, Fastingon 2023 Cholesterol [Mass/Vol] 174 mg/dL Normal 0-199 [facility] Comment on above: Result Comment: Cholesterol Guidelines: <200 Desirable 200-240 Borderline >240 Undesirable Performed By: #### C DP, VD25, FEBC, AHCV, GLYHGB, HIVCMB, TSHX, FERI, LIPRF, B12, CP #### [address] [phone] Splicer Helper: Isreal Astorga MD Cholesterol in HDL [Mass/Vol] 57 mg/dL Normal >40 [facility] Comment on above: Result Comment: HDL Guidelines: <40 Undesirable 40-59 Borderline >59 Desirable Performed By: #### C DP, VD25, FEBC, AHCV, GLYHGB, HIVCMB, TSHX, FERI, LIPRF, B12, CP #### [address] [address] Splicer Helper: Isreal Astorga MD Cholesterol in LDL [Mass/Vol] 96 mg/dL Normal 0-100 [facility] Comment on above: Result Comment: LDL Guidelines: <100 Desirable 100-129 Near to/above Desirable 130-159 Borderline >159 Undesirable Direct (measured) LDL and calculated LDL are not interchangeable tests. Performed By: #### C DP, VD25, FEBC, AHCV, GLYHGB, HIVCMB, TSHX, FERI, LIPRF, B12, CP #### [address] [address] Splicer Helper: Isreal Astorga MD Cholesterol in VLDL [Mass/Vol] 22 mg/dL Normal [facility] Comment on above: Performed By: #### C DP, VD25, FEBC, AHCV, GLYHGB, HIVCMB, TSHX, FERI, LIPRF, B12, CP #### [address] [address] Splicer Helper: Isreal Astorga MD Cholesterol.total/Chol esterol in HDL [Mass ratio] 3.0 {ratio} Normal [facility] Comment on above: Performed By: #### C DP, VD25, FEBC, AHCV, GLYHGB, HIVCMB, TSHX, FERI, LIPRF, B12, CP #### [address] [phone] Splicer Helper: Isreal Astorga MD Triglyceride,Fasting 108 mg/dL Normal 0-149 [facility] Comment on above: Result Comment: Triglyceride Guidelines: <150 Desirable 150-199 Borderline 200-499 High >499 Very high Based on AHA Guidelines for fasting triglyceride, June 2012. Performed By: #### C DP, VD25, FEBC, AHCV, GLYHGB, HIVCMB, TSHX, FERI, LIPRF, B12, CP #### [facility] [address] [place] [address] [phone] Splicer Helper: Isreal Astorga MD TSH w/reflex to FT4on 2023 Thyroid Stim. Horm. 2.37 uIU/mL Normal 0.27-4.20 [facility] Comment on above: Performed By: #### C DP, VD25, FEBC, AHCV, GLYHGB, HIVCMB, TSHX, FERI, LIPRF, B12, CP #### [facility] [employer] [address] [place] [address] [phone] Splicer Helper: Isreal Astorga MD Vitamin B12on 03-14-2024 Cobalamin (Vitamin B12) [Mass/Vol] 695 pg/mL Normal 232-1245 [facility] Comment on above: Performed By: #### C DP, VD25, FEBC, AHCV, GLYHGB, HIVCMB, TSHX, FERI, LIPRF, B12, CP #### [facility] [employer] [address] [place] [address] [phone] Splicer Helper: Isreal Astorga MD Vitamin D 25 OHon 03-14-2024 Vitamin D 25 OH 17.4 ng/mL Low 30.0-100.0 [facility] Comment on above: Result Comment: Reference Range: Vitamin D status Range Deficiency <20 ng/mL Mild Deficiency 20-30 ng/mL Sufficiency 30-100 ng/mL Toxicity >100 ng/mL Performed By: #### C DP, VD25, FEBC, AHCV, GLYHGB, HIVCMB, TSHX, FERI, LIPRF, B12, CP #### [employer] [address] [place] [address] Splicer Helper: Isreal Astorga MD Patient Handouton 03-13-2024 Patient Handout [facility] [address], [address], [place] Date: 03/13/2024 RE: Lucila Jacques To whom it may concern, Lucila has been under my professional care due to a surgical procedure performed on 02/27/2024. She may return to work with no restrictions on 03/20/2024. Thank you, Peter Booth M.D. Normal [facility] Release of Informationon Release of Information [id number] Normal [facility] A1C with Estimated Average G luon 03-12-2024 Glucose [Mass/Vol] 105 mg/dL Normal [facility] Comment on above: Result Comment: PERF ORMED BY: [place] [address] PATHOLOGIST [employer] MANU[employer]CTURING TECH GENO BENEDICT M.D. Performed By: #### A 1C WTH eA, ALB, [id number], HGB #### [address] #### NICOTINE #### [facility] , Albumin Levelon 03-12-2024 Albumin [Mass/Vol] 4.0 g/dL Normal 3.5-5.7 [facility] Comment on above: Performed By: #### A 1C WTH eA, ALB, [id number], HGB #### [place] [address] [place] #### NICOTINE #### [facility] , Albumin [Mass/volume] in Ser um or Plasma by Bromocresol green (BCG) dye binding methoOrdered By: Santa Estrada on 03-12-2024 Albumin BCG dye [Mass/Vol] 4.0 g/dL 3.5-5.7 [facility] Cotinine [Mass/volume] in Se rum or PlasmaOrdered By: Santa Estrada on 03-12-2024 Cotinine [Mass/Vol] 3.7 ng/mL . [facility] Comment on above: This test was develo ped and its performance characteristicsdetermined by [facility]. It has not been cleared orapproved by the Food and Drug Administration.Cotinine levels greater than 20.0 are consistent with theuse of tobacco or tobacco cessation products.Performed at: [facility] [id number] Director: Marcellus Dave MD, Phone: [phone] Glucose mean value [Mass/vol ume] in Blood Estimated from glycated hemoglobinOrdered By: Santa Estrada on 03-12-2024 Average glucose Estimated from glycated hemoglobin (Bld) [Mass/Vol] 105 mg/dL [facility] Hemoglobin A1c percentageOrd ered By: Santa Estrada on 03-12-2024 HbA1c (Bld) [Mass fraction] 5.3 % Normal 4.3-5.6 [facility] Comment on above: Increased risk for d iabetes: 5.7 - 6.4diabetes: >6.4glycemic control for adults with diabetes: <7.0 Result Comment: Incr eased risk for diabetes: 5.7 - 6.4 diabetes: >6.4 glycemic control for adults with diabetes: <7.0 Performed By: #### A 1C WTH eA, ALB, [id number], HGB #### [place] [address] [place] #### NICOTINE #### [facility] , Hemoglobin [Mass/volume] in BloodOrdered By: Santa Estrada on 03-12-2024 Hemoglobin (Bld) [Mass/Vol] 12.8 g/dL Normal 11.8-15.4 [facility] Comment on above: Result Comment: PERF ORMED BY: [place] [address] PATHOLOGIST [employer] MANU[employer]CTURING TECH JIANLAN SUN M.D. Performed By: #### A 1C WTH eA, ALB, [id number], HGB #### [facility] [address] [place] [address] [place] #### NICOTINE #### [facility] , MRSA Cultureon 03-12-2024 MRSA Culture No MRSA Isolated 2 D ays PERFORMED BY: [place] [address] PATHOLOGIST [employer] MANU[employer]CTURING TECH GENO BENEDICT M.D. Normal [facility] Comment on above: Performed By: #### C UMRSA #### [facility] [address] [place] [address] Nicotine [Mass/volume] in Se rum or PlasmaOrdered By: Santa Estrada on 03-12-2024 Nicotine [Mass/Vol] <1.0 ng/mL . [facility] Comment on above: This test was develo ped and its performance characteristicsdetermined by [facility]. It has not been cleared orapproved by the Food and Drug Administration.Nicotine levels greater than 2.0 are consistent with theuse of tobacco or tobacco cessation products. Nicotine/Cotinine Bloodon Cotinine, Blood 3.7 ng/mL Normal . [facility] Comment on above: Result Comment: This test was developed and its performance characteristics determined by [facility]. It has not been cleared or approved by the Food and Drug Administration. Cotinine levels greater than 20.0 are consistent with the use of tobacco or tobacco cessation products. Performed at: [address] [id number] Splicer Helper: Marcellus Dave MD, Phone: [phone] PERFORMED BY: [place] [address] PATHOLOGIST [employer] L[employer] MANUFACTURING TECH GENO BENEDICT M.D. Performed By: #### A 1C WTH eA, ALB, [id number], HGB #### [place] [address] [place] #### NICOTINE #### [facility] , Nicotine, Blood <1.0 Normal . [facility] Comment on above: Result Comment: This test was developed and its performance characteristics determined by [facility]. It has not been cleared or approved by the Food and Drug Administration. Nicotine levels greater than 2.0 are consistent with the use of tobacco or tobacco cessation products. Performed By: #### A 1C WTH eA, ALB, [id number], HGB #### [address] #### NICOTINE #### [facility] , Vitamin D 25 Hydroxy Totalon 03-12-2024 Vitamin D 25 Hydroxy Total 18.4 ng/mL Low 30-100 [facility] Comment on above: Result Comment: EVE MIN D STATUS 25(OH)VITAMIN D RANGE (ng/mL) Deficient <20 Insufficient 20 to <30 Sufficient 30 to 100 Reference: Juliano [place], Tate VELAZQUEZ, et al. Evaluation,treatment, and prevention of vitamin D deficiency; an Endocrine Society clinical practice guideline. JCEM. 2010; 96(7):191-. PERFORMED BY: [place] [address] PATHOLOGIST [employer] MANUFACTURING TECH GENO BENEDICT M.D. Performed By: #### A 1C WTH eA, ALB, [id number], HGB #### [address] #### NICOTINE #### [facility] , Vitamin D+Metabolites [Mass/ volume] in Serum or PlasmaOrdered By: Santa Estrada on 03-12-2024 Vitamin D+Metabolites [Mass/Vol] 18.4 ng/mL Low 30-100 [facility] Comment on above: VITAMIN D STATUS 25( [...] (Unsp spec) No MRSA Isolated 2 Days [facility] Coding Summaryon 03-07-2024 Coding Summary HTMLBase 64 ZmddsbhjSMs7wQf+PGhlYWQ+PE1 QKWAaN09laXOpaM5kL9LFWPrBOi wwZUANHXwXDwHticShKQ1fpTMmS XJu IC8+BM8zBZHwTmjqdGZtp7D2qZK 4R70dsg3hXTtiiAH4SECsUeXjyy sej7fblHc5TFgpOvgrTkZd STNkcE39PYL2zW46Tx66vQLfgWF kx7ykyPk1RgYzASOjHIJ4fRvrXV jta0KuTLXsW14cxMPuu2D2 UZLoxUgzaTOcYbWhcNQ3wE6wSZx hbghvw4qgkqrfLcm2ib02xPRfz2 K1iEH3O6QimrP1HSEsqQEq UikypIUYhG0ujmlas8lxvjimJwS aNWJkEHo3ZRk4JBFqaCivObJiWS 41JVZ7DHGhrtFmK7KgIXIw yAinPjK8i4D5Hh4TD2VMRrtyC1Y NTUFSWTwvdGQ+ZD08jo58I2MaQh hmPfk8MFVyJRA9qTJ1oV6q PEHhZHquj1M1sTK0Q0YnmnTlpj3 gc9osWCUoHElbH00bbPXdo8W7LF EckUI0JQRuqKzcKrOudD00 Oyc+WEDbaOgfm7MyEminu1edv7x mlGf0NlcoFCGdxeErfLjsDHE8n3 QdPv1sKKQkkIS8oQD1eF7b HpPcSeP4PNaoZ458ErZilOQnLhg yN99oC8MgcZH+SICxNrd3JTBipT ocKG4zL1TwIAEksbalyJAm pJjoQE8lWQTuvltdQXJfoG9gDOE iI8p3KnDaFeL2XLstJ4VcTGSvjc oePu96zE7dIlAiIeA1ONpo C8HqrrQ4PRMdkVBbIIzfZSD8Q72 du9E1QMSjQBYsTOH5pVC6uP5fiC lnbjogbGVmdDsgdmVydGlj ISkhBYpfO767CRObkKkdVcZpRPm uZyBEYXRlOiAgMDYvMTMvMjAyND wvdGQ+VYQiDYC4eOqqBSUj tQOrBZdeQt3blTjmtIpjVR6kUKM huqsfHVSivR3cSNGjzZSjjZaxDM 0gERNrujmqt956XtMpTWU0 DFOreIVqI1JwhC7aAuUlFKSaWMK jX2AklIRhUHkoB574RVdsXgO0HC XjwvTlE9DcZGTpsLsfEnD7 q4H7Au0Zm4SakapdB4VhiIJpCtU zFbxgVTa1V4GgHfggmVJ+PC90YW HiGU84BRl0MQD2jIjeDTno YCHjM9VhbZ4dEpFpRWDoLJJeFdd +PHRhYmxlIHdpZHRoPScxMDAlJy FfeBplOL0bKn3cXBCmLVZd sBfdiSDwOlVmj3tcZPGwJArjJX5 jsFeqI1RnsJD5OMWnu1y2Ni91R2 9mD2GvzZP+CWGgcYO7jBV5 rN4fZnXoZyO6AZhgJ582CySelLT xQnttl3ren1lxtEz2GjZ8NYViki VbnFkgUCB3u6HjFx17W63r IHdpZHRoPSIxNSUiIHZhbGlnbj0 nuK0fKh1+YBBffWD8dKP6sU5yHc DcSyI2VRzeB102RkZpmGQm Wciwa8rcc1nfhXa7RhYgBTCkcuY oqYptLOT6o4DxBe82Q2AexJbrx9 AlTyb3rp84bAJhc4Z8fGD7 H8NtHTEaamyfjMQpxTvqYV5bCMZ odarsZRXclT7vDYNpS8l3RoWoWw M6CYxvQ4ZbrtS1MLKakUXu LRDeeMVJmT0zvldzw0bvwraeZnM vBFMzZZp7VHa7LIJraVriUrIdNJ G5KtY5BRD1mWExuC2yjGah aggooN3dNaa+JOT5jQAlbKAQBW1 lOjwvdGQ+JBKxFMW3dUftJCosWT ZszD8hQGTzW5x2QxMfPmA7 MUubU0KwoxG1HDBiuHWgKKRezYI CtH6rvxrcy9bmqjtfRzUdANSlJC r9CZp9BKWvxLyxNaUsORI7 QnN0EHJ5nWAwdJ1pzUhwnxxqgH4 wOyc+XnmaaRpdKIN1DSy5I3EoCj g0ZVZmxHyeUI1noJLgSBhi Tf3xeOhuxRtrWZ8vVHOdduhiv76 2WoZxt5ylHQUghJUpZIdwNAG3O3 5da3D5HGIeCWAsLFW1hYU2 oL5tyDhogbpejUKsfNykmjSluIb iWKycEKioQ552WLOolEgaRoGrHK q2F3ByBrj5IVYwgHxdSP1h wQPmWFqnPm2zqCelxSoxDC1uLFM rmmwul508TbDcy5lfHNWreHUbBT bkYCD9Q13gm2K6PRDaHQIg NZJ3tFT4gC0swUoqkrqjiPTvfGr ypsZeuRlaJKtmGCcmE853NPFlgM pnKeUstNq7Z8DkBhs6FSCn hXtyDF2cfQLoKZkdEp9gbEjmvJa cXL5kGARlkovef804ZbJur0lkHR GqoQJbSVxeJRN8F60gf4X8 TUFiIDPjKAN7fSN2vB1mbEaxfti gbGVmdDsgdmVydGljYWwtYWxpZ2 46IHRvcDsnPlBhdGllbnQg WSvuOMm9W8QmExyycNE+AT27FBX uVB10xXZmkHWxx4kszBu3XvYgYT PrGEY7gXugKAigp7NjPJIj T24jxPIby7K2AAGlqFercFAuQyY pxSP8sS0kQUgzdmjjg8efyzrjYi mmp6wmkf70pF05J98fJRjz LWXyJTXhWIGxNLQqfKffay1xhW8 wIi8+JCWrsNN9fRF9zE9kOVPkWv B5WPatQ804RqOldTHyLxkx v3lvf2anuKh5CxB5EHMzcjJeoCl vAGZ1b3NpVv86S14jTYykCQVbKY MsNMWfRMRefRrqyv3igN9s Ii8+PJUqbZP2xVW8qS3hCuZpPdO 2NOqhG919RsQsfUYkXnfmB70vP8 JvdXA+IZTqLpz2ZNOsbCjl ZK8srTUsCSebNq9yVTB5UrCoNnG hCCqlB1AqXGDbapchxidynXP9VP OkGFQhgR79Bl2djPizDCCf xITMlI9rhsfay1okogliLcRkJPI eUAh5VFg8RMApaBizGrObOHF3Zt Y4DNN0hKGyuT9pbUnmxcct tZ4iL1HpKXTkpbyxPy06tP6pIvD kAeL8GOcxBze+UoNBTckzC2BQBN tVFkLGIGH9Y9GfHiy4BRSq nQtnFI8gbJAsRExlXk9fqTrjfEs cSK3zZUCgdmbcSCKetS3wJNYneE FobXvzZO7yIEIwuuumh846 CnEiSPZ8SXFlgJBdI9OvjH0kXkA vZIMfEVCtN1KuaNFgJFlfS867NN smNcL3YSRtxmAtE6MnAOWe vWsjXjW1i3K7Tz9eNK2lKo7vPTs 9NX84GB96bOSlv0Q5dTB3E3AiUQ TwtrixhbudmOV8EKIlYHEi uE71dNDzTShtXh7wi4A4l794OIA lFFEopM31Yd4pySucSGYggXUOpP 2pcvlqm0gomwyeWnBjUORg PAk9CIa7ZXVdkIzeHjVfKYO5ZqN 7VZR7hPFttF7myNokfcyqlU2wYy c+McXsXNYfznP8P3TeEus4 QUZgxTtwBM0leVNkMMdpGe5wuIj frHwcQA8lUDSttxayZOFddM5wIG MeiZYdoLchCY9tAZXdfoxx w799LwItKTI1LBLihEKaU7UncD8 nKnMzJJIcLZKkF6YuqWLcJDlnV6 97AHvyZuC3SISwhwFaJ9Bf KZAifAqlRmJ3a5X6Lk5ONN4HBVS 7M3RlIml1HSZifCnrUS7xnOIiPR bbMn0xwFwyiHvoOU0hHPUn xohiARVcmL7xGCXoqLBreBjnCR3 bOXJragvth811DwRgAKP7SSQddC AaA8VmoT6dQyZcXILsYFIm Y4RxmKFxIKsnU076SYtfSpL2UHH rngFyU0IyUDQisHldUyM1z3K9Sl 5PYnNlcnZhdGlvbjwvdGQ+ BB13kj88P3KaVptqOwb0GUOvHWS 8cSY8zN8cXJAdUIgcf3Q5qGC6Q3 BvycEjxf7wp5kfOQYyRBhn H03biJXwv4H9RLIcmHX1VQJzgAj uWjAwiG39Ndt+IFGiqUzlk0LlTr lab2jlj2bxyGn6FoJsLDUr cqAgjDxkWTK9s1YvQp79R13fXHs zCQIjQKRjTJNvYCCsyBzvim4dlI 9wIi8+JRQlqFY3dME0sV4g EbAwFaR9SJjlX768WeJsxUGuBvi os6fhn7dauYs8MxQkAEHxhjSkdB nxSWF2v2JcUd66F2RysWad i4MqGnq4le26pFCgv8X7hXC9U0Z hMAXqwpqphYBwxHyqUJ9eDAXvry bvPCFwvQ3eXDYsF8t3BbBa FwN7LVuzD9SmmdE9MAZkgMQaWWW gvWDFtB5qesulb6xmxeikKfMoYT VhJBe0LSu6HRNjpCcwAwWk OBM1YxH7LLK9iCCtrJ6biFjtewa kiO5hIsh+UGg3y5bupLSwSL9cfC V0BD57RN34fESfz3R2mGJ8 Y2SmERMwnldcxtwhhIX9EVZmSAC yaV48Bo9ciCmsNo7bSSEvYWV7BJ BfyFShI0PtmJ5iLsSdHMPa GYSwC8HozSXmOYueW306QVsdXbI 3XXIkkgJvW3ZsSMMsjNyaYuM0x0 Q2Ce4FYN87HH22LO62yBBn p1G7eJA4K9ObYKRnmtwjnhpplML 7JLJdTHEbnU35Ck2uaKiyJc4yUS VdGBQ5FYVhiLAdR0MpnQ6k JdPaACMwTTXzU3WwoTIvOGxnJ33 8NEaePmK2VKWwckBoK7OaQOCkyF kzZfW7l0J7Dr8FNy23PK51 IR36kYBdd4F8iBD9B4MzXCRnyym khufsxPY1HJQwLERutQ31Qn2usB wrOl0nNQUvKPI3ECDeyXLz U5FuzO7iYtAaAJPcPXPqB0SyjLV uEVksS280NJbbSrH6NFRbvsOnR0 NrPFGljEjeVcR5v3T7Qi6C HOxswyb9U7YpBxbknRO+XZ30OXC uAZ30zVPsqDGuj7libZg3CzBqLR XbZMV2iEikJBhxy3UbKIAc Y29 (more content not included)... Normal [facility] Lab - AP Resultson 4 Lab - AP Results [id number]#1.00OTGTIFF Normal [facility] MR KNEE LT WO CONTon 024 [...] Mckenzie MD on 03/04/2024 9:59 AM Normal [facility] Consent Formson 02-29-2024 Consent Forms [id number]#[facility] 02-28-2024 Consent Forms [id number]#[facility] Consent [facility] [id number]#[facility] MAGR Postoperative Recordon 02-28-2024 MAGR Postoperative Record MAGR Phase II Record Summary Primary Physician: Peter Booth MD Finalized Date/Time: 02/28/24 07:49:14 Pt. Name: LUCILA JACQUES/Sex: 1990 FEMALE Med Rec #: [id number] Physician: Param Michelle DO Financial #: [id number] Pt. Type: O Room/Bed: [facility] Admit/Disch: 02/26/24 22:40:28 - 02/27/24 18:45:00 Institution: [...] [facility] Outside [facility] 02-28-2024 Outside Records [id number] Tele[facility] Strips [id number]#[facility] .Auto Diff 102-27-2024 Auto Breath[place] % 8 % Normal -12 [facility] Comment on above: Performed By: #### 1 4147084, 0859978991, 5320311, 8594482444, 4945286, 6364586, 2023017, 7884441 #### [facility] (DEFAULT) [address] [place] [address] 56961 Baso Abs# 0.0 x10 Normal 0.0-0.2 [facility] Comment on above: Performed By: #### 1 1684339, 5519464880, 2257567, 8266226217, 1601540, 6247052, 9454908, 4518424 #### [facility] (DEFAULT) [address] [place] [address] 70541 Basophils/100 WBC (Bld) 0.4 % Normal 0.2-2.0 [facility] Comment on above: Performed By: #### 1 4499376, 5092115160, 7091649, 0030805723, 8197802, 5916246, 0514132, 8487064 #### [facility] (DEFAULT) [address] [place] [address] 86818 Eos Abs# 0.1 x10 Normal 0.0-0.4 [facility] Comment on above: Performed By: #### 1 3410845, 3025881437, 5707262, 4780706954, 4072797, 3277038, 2572424, 3938064 #### [facility] (DEFAULT) [address] [place] [address] Eosinophils/100 WBC (Bld) 1.1 % Normal 0.9-4.0 [facility] Comment on above: Performed By: #### 1 7767031, 4605959273, 2707478, 1537216290, 4584301, 0063233, 5478455, 8018425 #### [facility] (DEFAULT) [address] [place] [address] 36893 Lymph Abs# 2.1 x10 Normal 1.3-2.9 [facility] Comment on above: Performed By: #### 1 5406203, 5551713532, 0463422, 1924197866, 2286817, 0026178, 9241568, 5321158 #### [facility] (DEFAULT) [address] [place] [address] Lymphocytes/100 WBC (Bld) 28 % Normal 14-48 [facility] Comment on above: Performed By: #### 1 1059116, 3833641282, 2352627, 3727098332, 5366411, 2926292, 9402953, 9629550 #### [facility] (DEFAULT) [address] [place] [address] 61227 Breathitt Abs# 0.6 x10 Normal 0.0-0.8 [facility] Comment on above: Performed By: #### 1 9926113, 2920148409, 6123679, 3951335583, 9270507, 5592738, 8215885, 0257029 #### [facility] (DEFAULT) [address] [place] [address] 81748 Neut Abs# 4.8 x10 Normal 1.5-9.2 [facility] Comment on above: Performed By: #### 1 7605374, 9584126952, 0378749, 3904070196, 1586651, 6280824, 2675904, 8592009 #### [facility] (DEFAULT) [address] [place] [address] Neutrophils/100 WBC (Bld) 63 % Normal 44-88 [facility] Comment on above: Performed By: #### 1 3281022, 2185019264, 6318448, 0266499262, 8452099, 9410343, 5120608, 5812765 #### [facility] (DEFAULT) [address] [place] [address] 08444 Amylaseon 02-27-2024 Amylase [Catalytic activity/Vol] 51.0 U/L Normal 28.0-100.0 [facility] Comment on above: Performed By: #### 1 0653625, 2845809390, 2327708, 6769043784, 9259274, 0511690, 4554708, 5496682 ####[facility] (DEFAULT)[address] [place] [address] Anesthesia Noteon 02-27-2024 Anesthesia Note Patient: LIOR [...] Hospital Anesthesia Note Patient: LIOR JACQUES IN MAXINE [...] history): All Problems Anxiety / SNOMED CT 23655364 / Confirmed Arthritis of left knee / SNOMED CT 665034860988149 / Confirmed Body mass index 40+ - severely obese / SNOMED CT 8054405650 / Confirmed Genital warts / SNOMED CT 672783288 / Confirmed History of arthroscopy of knee joint / SNOMED CT 5559347669 / Confirmed History of bariatric surgical procedure. / SNOMED CT 3330965285 / Confirmed Gastric bypass status for obesity / SNOMED CT 1696091607 / Confirmed H/O syncope / SNOMED CT 8259483282 / Confirmed Hypokalemia / SNOMED CT 56195361 / Confirmed Hypomagnesemia / SNOMED CT 763266040 / Confirmed Mixed anxiety and depressive disorder / SNOMED CT 042969873 / Confirmed Morbid obesity / SNOMED CT 516636417 / Confirmed Peripheral venous insufficiency / SNOMED CT 52192281 / Confirmed Sacroiliac joint pain / SNOMED CT 450518733 / Confirmed Varicose veins of left lower limb / SNOMED CT 828616491579841 / Confirmed Resolved: / SNOMED CT 434639257 Histories Family History: Clotting disorder Mother Diabetes mellitus type 2 Father Grandmother (Paternal) High blood pressure Father PVD - Peripheral vascular disease Mother GERD - Gastro-esophageal reflux disease Father Procedure history: CT guided nerve block (6808651621) on 01/12/2024 at 33 Years. Comments: 01/12/2024 11:39 LUKET - Cuong Chowdary MA LEFT GENICULAR microphlebectomy in the month of 07/2017 at 27 Years. 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 section (71950110) on 11/10/2014 at 24 Years. section (68872972) on 06/29/2012 at 21 Years. Gastric band (0691663124). Social History Electronic Cigarette/Vaping Assessment Electronic Cigarette [...] (FEB 26 (more content not included)... Normal [facility] CBC w/ Auto Diffon Erythrocyte distribution width (RBC) [Ratio] 13.3 % Normal 11.5-15.0 [facility] Comment on above: Performed By: #### 1 6134178, 7347390830, 3243380, 5966314572, 5452931, 7638800, 1120639, 2931126 #### [facility] (DEFAULT) [address] [place] [address]1979 Hematocrit (Bld) [Volume fraction] 42.2 % High 33.7-40.4 [facility] Comment on above: Performed By: #### 1 4242448, 2176772177, 7072310, 2586309794, 8656043, 7422483, 6868384, 4658188 #### [facility] (DEFAULT) [address] [place] [address] 83840 Hemoglobin (Bld) [Mass/Vol] 14.3 g/dL Normal 11.3-15.9 [facility] Comment on above: Performed By: #### 1 4459000, 4942711783, 4390373, 9024596508, 9452477, 7896899, 5674625, 7091841 #### [facility] (DEFAULT) [address] [place] [address] MCH (RBC) [Entitic mass] 30 pg Normal 24-34 [facility] Comment on above: Performed By: #### 1 6473418, 9357120266, 1835775, 9631129786, 2043198, 3578337, 6980817, 5214728 #### [facility] (DEFAULT) [address] [place] [address] MCHC (RBC) [Mass/Vol] 34 g/dL Normal 26-37 [facility] Comment on above: Performed By: #### 1 4934435, 0623036414, 5771359, 9963032209, 2337571, 4639651, 3953325, 9236627 #### [facility] (DEFAULT) [address] [place] [address] MCV (RBC) [Entitic vol] 90 fL Normal 81-100 [facility] Comment on above: Performed By: #### 1 7019989, 7037796972, 5652936, 4586380531, 5034870, 8499784, 9468215, 7896312 #### [facility] (DEFAULT) [address] [place] [address] 90463 Platelet 243 x10 Normal 138-427 [facility] Comment on above: Performed By: #### 1 8505769, 7182334382, 3413700, 4134748942, 7936761, 2517814, 1176364, 0223623 #### [facility] (DEFAULT) [address] [place] [address] 00845 Platelet mean volume (Bld) [Entitic vol] 8.0 fL Normal 6.3-10.2 [facility] Comment on above: Performed By: #### 1 9621924, 7899527103, 0719421, 2055196788, 9055801, 2202444, 8561897, 0888591 #### [facility] (DEFAULT) [address] [place] [address] RBC 4.70 x10 Normal 3.70-5.30 [facility] Comment on above: Performed By: #### 1 9685528, 2595492346, 6287459, 8482315846, 8267758, 8447259, 6706777, 5866681 #### [facility] (DEFAULT) [address] [place] [address] WBC 7.7 x10 Normal 3.5-10.5 [facility] Comment on above: Performed By: #### 1 3916940, 2230598555, 4455641, 9969498021, 1403344, 5162185, 7681718, 0591387 #### [facility] (DEFAULT) [address] [place] [address] Man Diff? Auto Invalid Interpretation Code [facility] Comment on above: Performed By: #### 1 7388770, 1017029307, 3263343, 1709137026, 4217774, 9737459, 3097033, 7749580 #### [facility] (DEFAULT) [address] [place] [address] CMP Standardon 02-27-2024 eGFR Non AA >60 Invalid Interpretation Code [facility] Comment on above: Performed By: #### 1 5763561, 1399944963, 8064867, 4828306955, 1807851, 5407315, 4995398, 8414310 #### [facility] (DEFAULT) [address] [place] [address] eGFR AA >60 Invalid Interpretation Code [facility] Comment on above: Performed By: #### 1 7619291, 7708179097, 1625674, 1996591057, 8475018, 2415845, 7968141, 6505769 #### [facility] (DEFAULT) [address] [place] [address] Albumin [Mass/Vol] 4.2 g/dL Normal 3.5-5.0 [facility] Comment on above: Performed By: #### 1 4791903, 0719613945, 0607239, 2958223367, 4518321, 9394090, 4593272, 0842954 #### [facility] (DEFAULT) [address] [place] [address] 60008 Albumin/Globulin [Mass ratio] 1.4 {ratio} Normal 1.4-2.6 [facility] Comment on above: Performed By: #### 1 8719169, 8605393002, 7254286, 6583137133, 6808296, 3158497, 8051844, 3773150 #### [facility] (DEFAULT) [address] [place] [address] 37721 Alk Phos 56 IU/L Normal 32-91 [facility] Comment on above: Performed By: #### 1 2278958, 1797443567, 9379383, 3120997404, 2603190, 1182396, 6200411, 2308445 #### [facility] (DEFAULT) [address] [place] [address] 16139 ALT [Catalytic activity/Vol] 22.0 U/L Normal 14.0-54.0 [facility] Comment on above: Performed By: #### 1 7159094, 5178954584, 8531763, 9072024881, 2844412, 6559926, 7952925, 5452063 #### [facility] (DEFAULT) [address] [place] [address] 60250 Anion gap [Moles/Vol] 10.5 mmol/L Normal 5.0-19.0 [facility] Comment on above: Performed By: #### 1 7673403, 8408999164, 8553058, 3161179379, 4987702, 2586072, 6588768, 2673265 #### [facility] (DEFAULT) [address] [place] [address] 29732 AST [Catalytic activity/Vol] 26 U/L Normal 15-41 [facility] Comment on above: Performed By: #### 1 6071062, 2130995758, 2926803, 2034321781, 6729093, 9509429, 9425774, 5433294 #### [facility] (DEFAULT) [address] [place] [address] 77753 Bili Total 0.8 mg/dL Normal 0.3-1.2 [facility] Comment on above: Performed By: #### 1 4846383, 1924111588, 4867324, 5019562542, 4897266, 9574886, 9439961, 4225440 #### [facility] (DEFAULT) [address] [place] [address] 23222 Calcium [Mass/Vol] 9.0 mg/dL Normal 8.9-10.3 [facility] Comment on above: Performed By: #### 1 4447086, 2456725466, 6227509, 9559089709, 0590474, 2036245, 3173388, 1773778 #### [facility] (DEFAULT) [address] [place] [address] 24155 Chloride [Moles/Vol] 105 mmol/L Normal 101-111 [facility] Comment on above: Performed By: #### 1 9830919, 3456818221, 7699956, 3485310874, 5361518, 1091651, 1451285, 2278376 #### [facility] (DEFAULT) [address] [place] [address] 96384 CO2 [Moles/Vol] 24 mmol/L Normal 21-32 [facility] Comment on above: Performed By: #### 1 7270452, 4627726864, 4766015, 9165745855, 1042865, 0514551, 9564804, 6531535 #### [facility] (DEFAULT) [address] [place] [address] 39841 Creatinine [Mass/Vol] 0.68 mg/dL Normal 0.60-1.30 [facility] Comment on above: Performed By: #### 1 2154832, 0723374983, 7795835, 9528107544, 1196499, 1571435, 8111607, 2856571 #### [facility] (DEFAULT) [address] [place] [address] 52442 Globulin (S) [Mass/Vol] 3.0 g/dL Normal 1.5-4.3 [facility] Comment on above: Performed By: #### 1 4541332, 1779048876, 8911531, 2697293855, 5178340, 0889178, 8776720, 8199416 #### [facility] (DEFAULT) [address] [place] [address] 51570 Glucose [Mass/Vol] 93.0 mg/dL Normal 74.0-118.0 [facility] Comment on above: Performed By: #### 1 1743605, 0344772759, 3248929, 5662499272, 8567985, 6945317, 5752386, 9437041 #### [facility] (DEFAULT) [address] [place] [address] 74864 Osmolality 270 mOsm/L Invalid Interpretation Code [facility] Comment on above: Performed By: #### 1 4689595, 7559362417, 2747943, 3400468458, 2870453, 2797040, 7857863, 0880920 #### [facility] (DEFAULT) [address] [place] [address] 88715 Potassium [Moles/Vol] 3.5 mmol/L Low 3.6-5.1 [facility] Comment on above: Performed By: #### 1 5865253, 2598563212, 8442958, 4548072126, 2543160, 6224017, 3182528, 9502978 #### [facility] (DEFAULT) [address] [place] [address] 78954 Protein [Mass/Vol] 7.2 g/dL Normal 6.5-8.1 [facility] Comment on above: Performed By: #### 1 7544925, 1058027849, 0912524, 7143777973, 6161633, 8298917, 1690783, 8926238 #### [facility] (DEFAULT) [address] [place] [address] 02252 Sodium [Moles/Vol] 136.0 mmol/L Normal 136.0-144 . 0 [facility] Comment on above: Performed By: #### 1 0740087, 4196907225, 1115262, 8131498199, 0667891, 7467666, 4061534, 7681860 #### [facility] (DEFAULT) [address] [place] [address] 53570 Urea nitrogen [Mass/Vol] 9 mg/dL Normal 8-26 [facility] Comment on above: Performed By: #### 1 6154049, 1388696277, 3983153, 5700317867, 7883116, 9978798, 0921349, 7991257 #### [facility] (DEFAULT) [address] [place] [address] Urea nitrogen/Creatinine [Mass ratio] 13.2 mg/mg Normal 4.6-16.2 [facility] Comment on above: Performed By: #### 1 0525907, 2506346283, 8625775, 8591409722, 3862008, 7837297, 8189301, 8546226 #### [facility] (DEFAULT) [address] [place] [address] CT PE Chest/Abdomen/Pelvis w / Contraston 02-27-2024 [...] MD 02/27/24 2:37 am Technologist: CB [facility] ED Clinical Summaryon 2023 ED Clinical Summary [facility] - Emergency Department [address] [place], [place] [id number] ED Clinical Summary PERSON INFORMATION Name: LUCILA JACQUES Age: 33 Years Sex: FEMALE : 1990 MRN: Acct#: Visit Reason: Abdominal pain; ACUTE CHOLECYSTITIS Arrival: 02/26/2024 22:40:28 Discharge: LOS: 000 09:38 Check In: 02/26/2024 22:40:28 Checkout:02/27/2024 08:18:49 Address: [address] [place] [address] PCP: Provider, None PROVIDER INFORMATION Provider Role Assigned Unassigned Tamika Alvarenga RN ED Nurse 02/26/2024 23:12:50 Param Michelle DO ED Provider 02/26/2024 23:38:41 Abdulkadir Maradiaga TERRY CLOTH CUTTER HAND Nurse 02/27/2024 07:25:13 VITALS INFORMATION Vital Sign [...] recorded.. Surgical history: CT guided nerve block (6350769235) on 01/12/2024 at 33 Years. Comments: 01/12/2024 11:39 EDT - Cuong Chowdary MA LEFT GENICULAR microphlebectomy in the month of 07/2017 at 27 Years. Comments: 03/19/2019 10:05 EDT - Margaret Perera LPN left leg Gastric sleeve (8468660732) in the month of 07/2016 at 26 Years. section (36892504) on 11/10/2014 at 24 Years. section (85035616) on 06/29/2012 at 21 Years. Gastric band (2035482230).. Family history: Clotting disorder Mother Diabetes mellitus [...] recorded.. Surgical history: CT guided nerve block (4595221341) on 01/12/2024 at 33 Years. Comments: 01/12/2024 11:39 EDT - Cuong Chowdary MA LEFT GENICULAR microphlebectomy in the month of 07/2017 at 27 Years. 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 section (57345569) on 11/10/2014 at 24 Years. section (19722158) on 06/29/2012 at 21 Years. Gastric band (8242526646).. Family history: Clotting disorder Mother Diabetes mellitus [...] [facility] Pt denies any other complaints. [facility] ED Patient Education Noteon 02-27-2024 ED Patient Education Note Education Materials [facility] ED Patient Summaryon 024 ED Patient Summary [facility] - Emergency Department [address] [place] [address] PATIENT DISCHARGE INSTRUCTIONS Patient Information Name: LUCILA JACQUES Age: 33 Years Date of : 1990 Reason For Visit: Abdominal pain; ACUTE CHOLECYSTITIS Arrival Time: 02/26/2024 22:40:28 Primary Care Physician: Provider, None Attending Physician: Maurizio Mast MD Comment: Visit Diagnosis: Diagnoses This Visit Abdominal pain ([id number]) Acute cholecystitis (K81.0) Biliary colic (K80.50) The Pharmacy at [facility] is open Monday through Monday from [...] alcohol and/or drug addiction problems; contact the [facility] 17/04 Crisis Hotline -Text 4HHVN tj 558671. If you received any narcotics, sedation, or [...] and treatment you received today in the [facility] Emergency Department were for an urgent problem and are not intended as complete care. It is important for you to follow up with a doctor, nurse practitioner, or physician?s child center assistant for ongoing care. If your symptoms [...] so we can reach you if necessary. [facility] Emergency Department has provided you with a complete list of medications post discharge. Please inform your spiral weaver/provider of your visit and for further instruction [...] for D (more content not included)... Normal [facility] Inpatient Patient Summaryon 02-27-2024 Inpatient Patient Summary [place] [id number] Patient Discharge Instructions Name: LUCILA JACQUES : 1990 Patient Address: [address] [place] [address] Primary Care Provider: Name: Provider, None Phone: After you are discharged if you find you have any questions, please, call [phone] ext [phone] to speak to a nurse. The Pharmacy at [facility] is open Monday through Monday from [...] alcohol and/or drug addiction problems; contact the [facility] 17/04 Crisis Hotline -Text 4HOPE to 413193. If you received any narcotics, sedation, or [...] business decisions or sign any legal documents [facility] would like to thank you for allowing us to assist you with your healthcare needs. The following includes patient education materials and information regarding your injury/illness. LUCILA JACQUES has been given the following list of follow-up instructions, prescriptions, and patient education materials: Follow-up Instructions With: Address: When: Peter Booth [address] [place] [address], [place] [address] Business (1) In 2 weeks 03/12/2024 Comments: Call for follow up appointment With: Address: When: Loni Provider [address] [place] [address] Medications During the course of your visit, your medication list was updated with the most current information. The details of those changes are reflected below: New Medications [id number], [address], [place] [id number], [phone] acetaminophen-hydrocodone (acetaminophen-hydrocodone 325 mg-5 mg oral tablet) [...] problems or questions, (more content not included)... [facility] 02-27-2024 L Specimen: [id number] Received: 02/28/24 Status: MICHAEL Young Num: [id number] Spec Type: Surgical Subm Dr: Peter Booth MD Tissues: A Gallbladder (GALLBLADDER) Procedures: HE/2, Gross/Micro L3 Age/ Patient Sex Location Account Attending Physician Lucila Jacques 33/F [facility] [id number] Maurizio Mast MD SPEC NUM: [id number] RECD: 02/28/24 STATUS: MICHAEL YOUNG NUM: [id number] NIELS: 02/27/[address]: Peter Booth MD ENTERED: 02/28/[address] [facility] [address]: Edilberto,Lab SPEC TYPE: Surgical DEPT: MAG [...] gallbladder wall measures 0.1 cm in thickness. Folder Machine sections are submitted in A1 (gallbladder) and A2 (lymph node). CPT Codes 38559 Specimen: [id number] Received: 02/28/24-123 Status: MICHAEL Young Num: [id number] Spec Type: Surgical Subm Dr: Peter Booth MD Tissues: A Gallbladder (GALLBLADDER) Procedures: HE/2, Gross/Micro L3 Patient: Lucila Jacques [id number] (Continued) Signed (signature on file) Domenic Hopper MD 02/29/24 6342 Normal [facility] Lactic Acidon 02-27-2024 Lactic Acid 15.3 mg/dL Normal 4.5-19.8 [facility] Comment on above: Performed By: #### 2 539997 ####[facility] (DEFAULT)[address] [place] [address] Lipaseon 02-27-2024 Lipase Level 30.0 IU/L Normal 22.0-51.0 [facility] Comment on above: Performed By: #### 1 6343603, 4202263785, 7717190, 7726148676, 6421895, 3267248, 1576409, 4816157 ####[facility] (DEFAULT)[address] [place] [address] MAGR Intraoperative Recordon 02-27-2024 MAGR Intraoperative Record MAGR Intra-Op Record Summary Primary Physician: Peter Booth MD Finalized Date/Time: 02/27/24 12:38:12 Pt. Name: JACQUES LUCILA GOODMAN /Sex: 1990 FEMALE Med Rec #: [id number] Physician: Param Michelle DO Financial #: [id number] Pt. Type: O Room/Bed: [facility] Admit/Disch: 02/26/24 22:40:28 - Institution: Case [...] Role Performed Surgeon - Primary Anesthesiologist of [employer] Record Time In 02/27/24 11:31:00 02/27/24 11:01:00 02/27/24 11:01:00 Time Out 02/27/24 12:19:00 02/27/24 12:36:00 02/27/24 12:36:00 Procedure Cholecystectomy Cholecystectomy Cholecystectomy Laparoscopic Laparoscopic Laparoscopic Last Modified By: Bre Spaulding RN, Debra RN Myers, Debra RN 02/27/24 12:35:49 02/27/24 12:35:49 02/27/24 12:35:49 Entry 4 Entry 5 Entry 6 Case Attendee Dina Malcolm CST, Will Ortiz CST, CST, CST CSFMadison Role Performed Asp Net Programmer Asp Net Programmer Scrub Personnel Time In 02/27/24 11:01:00 02/27/24 [...] Participants Juliano Peterson DO, Bre Spaulding RN, iDna Malcolm SPANISH MOSS PICKER, Tru SPANISH MOSS PICKER, Marie LEBLANC CSFA, Will Miller SPANISH MOSS PICKER Last Modified By: Bre Spaulding RN 02/27/24 [...] Text: E.290 Eval (more content not included)... [facility] MAGR PACU Recordon MAGR PACU Record MAGR PACU Record [facility] Primary Physician: Peter Booth MD Finalized Date/Time: 02/27/24 14:07:36 Pt. Name: LUCILA JACQUES/Sex: 1990 FEMALE Med Rec #: [id number] Physician: Param Michelle DO Financial #: [id number] Pt. Type: O Room/Bed: [facility]/ Admit/Disch: 02/26/24 22:40:28 - Institution: PACU Case Times MAGR Entry 1 In PACU I 02/27/24 12:38:00 Discharge from PACU 02/27/24 13:40:00 I Last Modified By: Yarelis Schmitt RN 02/27/24 14:07:32 Finalized By: Yarelis Schmitt RN Document Signatures Signed By: Yarelis Schmitt RN 02/27/24 14:07 [facility] Magnesiumon 02-27-2024 Magnesium [Mass/Vol] 1.86 mg/dL Normal 1.80-2.50 [facility] Comment on above: Performed By: #### 1 [id number], [id number], [id number], [id number], 0461727, 5358431, 9507556, [id number] ####[facility] (DEFAULT)[address] [place] [address] Nutrition Noteon 02-27-2024 Nutrition Note Chart reviewed; 33 y o female diagnosed with s/p lap choly; diet order full liquids; patient with history of gastric bypass surgery ; no difficulties with chew/swallow identified on admit; encourage increase po as rachael; rec advance as rachael to regular soft diet; will monitor po with diet advance, wt/labs for changes; follow, assist prn. ts [facility] PTon 02-27-2024 INR Coag (PPP) [Relative time] 0.98 {INR} Normal 0.91-1.11 [facility] Comment on above: Performed By: #### 1 [id number], [id number], [id number], [id number], 2699109, 0201829, 9475882, [id number] ####[facility] (DEFAULT)[address] [place] [address] PT 10.2 second(s) Normal 9.7-11.8 [facility] Comment on above: Performed By: #### 1 [id number], [id number], 3073630, [id number], 1857471, 5802609, 4189107, 7097979 ####[facility] (DEFAULT)[address] [place] [address] Test Serum 1on Preg Serum Internal Control OK [facility] Comment on above: Performed By: #### 3 [id number] ####[facility] (DEFAULT)[address] [place] [address] Test Serum Qual Negative [facility] Comment on above: Performed By: #### 3 [id number] ####[facility] (DEFAULT)[address] [place] [address] TnI HSon 02-27-2024 Troponin I High Sensitivity 3.0 pg/mL Normal <=15.0 [facility] Comment on above: Performed By: #### 1 [id number], [id number], [id number], [id number], 1649970, 2620790, 7536393, 2867511 ####[facility] (DEFAULT)[address] [place] [address] UA w Culture if Ind Standard on 02-27-2024 Breakpoint UA [facility] Comment on above: Performed By: #### 1 [id number] ####[facility] (DEFAULT)[address] [place] [address] Color (U) Yellow [facility] Comment on above: Performed By: #### 1 [id number] ####[facility] (DEFAULT)[address] [place] [address] Culture? Not Indicated Invalid Interpretation Code [facility] Comment on above: Result Comment: Resu lt created by rule GL_MAGR_ADD_UA_CULT1 Performed By: #### 1 [id number] ####[facility] (DEFAULT)[address] [place] [address] Glucose (U) [Mass/Vol] Negative [facility] Comment on above: Performed By: #### 1 [id number] ####[facility] (DEFAULT)[address] [place] [address] Ketones Ql (U) 40 [facility] Comment on above: Performed By: #### 1 [id number] ####[facility] (DEFAULT)[address] [place] [address] Micro? Not Indicated Invalid Interpretation Code [facility] Comment on above: Result Comment: Resu lt created by rule GL_MAGR_ADD_UA_MICRO Performed By: #### 1 [id number] ####[facility] (DEFAULT)[address] [place] [address] UA Bilirubin Negative [facility] Comment on above: Performed By: #### 1 [id number] ####[facility] (DEFAULT)[address] [place] [address] UA Blood Negative Normal [facility] Comment on above: Performed By: #### 1 [id number] ####[facility] (DEFAULT)[address] [place] [address] UA Clarity CLEAR Normal CLEAR [facility] Comment on above: Performed By: #### 1 [id number] ####[facility] (DEFAULT)[address] [place] [address] UA Leuk Est Negative Normal NEGATIVE [facility] Comment on above: Performed By: #### 1 [id number] ####[facility] (DEFAULT)[address] [place] [address] UA Nitrite Negative Normal NEGATIVE [facility] Comment on above: Performed By: #### 1 [id number] ####[facility] (DEFAULT)[address] [place] [address] UA pH 7.5 Normal 5-8 [facility] Comment on above: Performed By: #### 1 [id number] ####[facility] (DEFAULT)[address] [place] [address] UA Protein Negative Normal NEGATIVE [facility] Comment on above: Performed By: #### 1 [id number] ####[facility] (DEFAULT)[address] [place] [address] UA Spec Grav 1.015 Normal 1.001-1.[address] [place] [address] Comment on above: Performed By: #### 1 [id number] ####[facility] (DEFAULT)[address] [place] [address] UA Urobilinogen 0.2 mg/dL Normal 0.2-1.0 [facility] Comment on above: Performed By: #### 1 [id number] ####[facility] (DEFAULT)[address] [place] [address] Urine Source Clean Catch Normal [facility] Comment on above: Performed By: #### 1 [id number] ####[facility] (DEFAULT)[address] [place] [address] US Gallbladderon 02-27-2024 US Gallbladder EXAM: US [...] Geovani Miranda MD 02/27/24 5:19 am Technologist: [facility] XR knee LT 4V*on 02-15-2024 XR knee LT 4V* [facility] [address] [place] [place] [address] XRay Report Signed Patient: Lucila Jacques MR#: [id number] 33 : 1990 Acct:[id number] Age/Sex: 33 / F ADM Date: 02/15/24 Loc: [facility] Room: Type: [facility] Attending Dr: Santa Estrada II, MD Copies to: Santa Estrada MD Ordering Provider: Santa Estrada MD Date of Service: 02/15/24 XR/XR knee LT 4V*: M25.562 - Pain in left knee ([id number]) XR/XR pelvis 1-2V: M25.562 - Pain in [...] Palacio Jr., Clotilde02/15/2024 3:38 PM Dictation Location: [place] [address] Transcribed By: [facility] 02/15/24 1538 Dictated By: Haile Palacio Jr, DO 02/15/24 153 Signed By: 02/15/24 1538 [facility] Coding Summaryon 01-31-2024 Coding Summary HTMLBase 64 TbjpcypmNQa5nIz+PGhlYWQ+PE1 NZLQzJ04qhQDkmU2hC2QMBHwYNy gcWKXFUXfPYkIabaMhIN5toPKrO XJu IC8+PZ5eHRUaQwjkoTLyl6S9vMS 5L49ilv3hYIvsiFM9PYBnIgLnih eqs1blrHz3AWvoCmmwYcPn BPEisN50GPJ4iJ49Zq88zJZcxED wf5lhpMn5ClEeSKNbQHZ6yXelKR ffc2QwEZCdG62rzQWlt4O0 BQGunBmniJPyJoEffHQ4fL5iYPn ynfyoq3pcbmhrMhw2bc66sUGiq3 Z8nGA1U0YspbK9SQCwyLPg ObdnlAOHmL8sylhme7hgxhduLfR rSRXqEIj2XOu7LIJvrPbwPpDjLZ 32NAM5OSWygoWwV9JuNBAu kVdhKvD9i2K0Ih9XK2GKZtqzE4X NTUFSWTwvdGQ+RY21la84S7EzBd lgCsb2BYEmXZJ2aAA6uT7g LELkRObnb0W6bXS1U9ToqiZwvp5 ra8hnIATxFObuV24stIHef3I0JF YgjNB9RADkrOqjWrLqtW03 Oyc+HAYpcHvnv1MfGbmod9iem6s whTs1QrxiWGMfwbAbzNqyBUZ8l3 NkXw7kTAUmfSP4hDN5hD8a UiLlHxG5KYnyY846AoVdnMYkWat oU49jW4GmkTV+ZVFyVyd9VMAjnA dnKY5mM4CgPPKyqcyjoTCn tTgxRE2hCLXppnklTJPbyD5aPUP uR5j8QfFzUlG8UAncC9DsPKRdgf yiRg01hI5hMqScRiB5PEla D8JowlA5CRJexVJdYCusRZN1R66 ik9C2LBRhAPThENJ7cQW9hJ5bjC lnbjogbGVmdDsgdmVydGlj KBghZAtrB319IZIgpSjySeAgHXu uZyBEYXRlOiAgMDUvMDgvMjAyND wvdGQ+YBYlJVU6rTwuZBUw yBIxDWubNz3ukXbftCrsXF3gUGO fdoueEULtzP8sABIppBVhuAjjIC 6lBGYjjamub464EzIaBGN0 NZKffQGxJ8YpbC0uNbGmKVIbZFQ rB5ZbiVQoBUtxL867QLbpGjO5ZU QzxqKxZ2AhHRAdzHhfMlI1 b5V5Cg3Sb5DhmvsoW0MyqDApSdK bSxidDYf3X8UpYqymeQP+PC90YW UzDH30YWp8TRE3eZixEQma FJYvI8EczR6vVdVhQMHpMSMoSwq +PHRhYmxlIHdpZHRoPScxMDAlJy ZjrQwtJL8mWb8aIUZtLJHb bGcdlMZcIaHwg0mmRCBrFHfhCO2 euQlzW5PicUY0OMHdo2a9Az52D2 9kF4UobNW+TBMqcOC1qRX9 oO3gEmLtVxQ1MKjkK102JyRahPW lUwurp5lip9idfIo9VeN1IYWrsz ZvyAvjWUK5a7GbTc18U37x IHdpZHRoPSIxNSUiIHZhbGlnbj0 cfU0vVl6+RAHwjAD8yNN3mQ5tMd NoTcE7UXqbX874VcOlsZIz Lajmk1efw3lnuXw2MmAqPZXpemN xqBuoNZP0m2MmYb57I8GzqRdon9 MaVqj9ny49xLUul1W1bFG0 V1CrXOYzamvlcIYypHiiZU2zXBU oolnsUTMocO8jYCMiD9g0ZmYcUh J4THgiU5ZhlxS8QHZakVSa NZZilCARdM8quwzgu2fboqzuAvF bPJQsVGq7QFy5TVHjzJkoHcCeTT Y9UlQ5WGG6oCLyiT9kzFcd mecqjG6vYfc+BFJ3pNCpmKMUBS3 lOjwvdGQ+JEMvXRS4dGsjHBvhPC QfqY0nFSBhU7l9JwUbCzV6 QFkdP9TqgdY8SLKrnQJwLUYhmJN OgQ0uraavo4fmqqqvNaCjAHEcXR m9YWx1QMIcjDjfSjGhIBK7 VpG9MDF6aPOoyU1kaSdrqnlmgM8 wOyc+KxfudUebHMV7YOz4U1SmBs j0CADpjQvlRD4xvGTdTKqc Uk6atWtryYdwNN7jDEEcaqqff92 7JtElf7kfBOChmUDiLWlaXRC5T0 7lu6V4ZLLrGTOiTWT8vRU4 vA7keIayulrgjFFwwAltoxOczHg yHIrmNBgdT094YVGzjSdyRcPbAU p6Z7DgDgl5HMHveGuxKH8b cFRgFVaeMq7ghWwrmJulBZ7uHOR lrunzy449EdEux9buVLIwmKJkOZ tsAXM1P02se2P4TBSrTBAh LJG3uIP2qD0ocChrwrshwINbbAo lflJpsHudVLbpNZrhT260ZXRxuH zoYeZnyAv1W3EcYtb4CNVo ySslFT0beJNtWEqrZt6qxNeweTs aZW8nWZRsakmfn532ZyQwp5fyUO DwvXUhJTyuIPI1F29lt3X0 IQPtMWWoDRM6zWQ1fY0ynCqacpa gbGVmdDsgdmVydGljYWwtYWxpZ2 46IHRvcDsnPlBhdGllbnQg CMnsXGf8Q1PfFoismNK+QI10CPM wET69oZNihTWfq0pxmTe3SoKoOZ OqSGH7wBzyVPvja3JtKZRa D21otDWqv5G3WJOczXswsMXcTlI exNU8iH4bOCeukiyej0mkvvgsRn rwc9hloc66cL03X37mEAip JMRnANZtAOUtJAKrxRqfam7uxV3 wIi8+MYJfyID8dRY1vM0bPLFsPc V3TCtcK426PcKrjENmBgzc h9sbs9nmmPj0IdI3QKNhsfQtiCo yJGC5w5BtXn75Y94dOLsxHGXrSC GnNNMrMGLkkLrpic2liH2k Ii8+SJSpcHN5sSP3hB2bLsWoTwH 3DYrdL490HuXnrNLvXqpkN38yJ3 JvdXA+IUIqOch8FZYhdRhy WB6rdKZgLNmkPt4aUDB5PxKtLmP iJNesP7VjSBRobnnhmicczDD9ED HpZOVkmN13Cr4bnTcsYWBp vLSKaP5vqeulh8kheippRhGmKQW mMVq7CGr5DZTypLyhHaGjGFP1Kh H8BCX0rZBgyJ3iwVmmqlkg mN8zR8BuZPRsdpdaNe99gB3gIoX zOtP4GUptZdi+FfIOGoxuA2MZKI yDQqZOTUX5W7SwKjk0BGTs yJlaTD1qlWXaBPadWs7tpPvqdBw zWQ5lLILwnopvYTJkgF8sZYIwaR DfaVsvNU6qMZJxdxvqf843 JdIrELN1UUYtoYWtO2VwvO0oQrU nUZSsLVSnK5GtxMSrMKscP447UH eoFhX2DEJnnsTtN3XhGECy rExfRmP8x7G2Sh8sKN2rJm1tJUj 4IR91JQ82yNVws8I2iXD6L2ReIS PtfizfxcsenTB4BRCsJNZt lO19zGJmPRvuEi1lf6O8l474AKO cXTDtbM02Xz3evQjmFHKcvSBLeI 0dqflru5qmofjmEmTcSALz QUd0UTv6EWNqsXntPgDqOSI2IwH 3GVR6oIAmqG3tvBbcxdsrxY7oKx c+TjSdOBOxecK9M4BwIrv4 CBMweAxfLL1fjFAjNAtlGc2oeQo fhWmzPO2pWVGadpsoUALomT2bTL CpfSCncKndWY5zTJMxuawg y938XsKcNPC9PZDqnIVwI1QeoE5 bMwRkJCFmFCZzW3ZkuSHpUXiaG8 99UGxxBxM1HGQpquEgC4Dd TPBkqYorJrU5j8E9Ty1VJA1CEOQ 7C4WsPcj6OBHbaZdlQI2fhJPwDL wyOs7waToqbZpzYG9lVQGo zozfORKrjJ2aURMdkUGjoCvtIS3 dGSRnpyait876LqAtZUW4TMUokE ZtH6OvfF3jFbIlTAUfDPWm V5IlkCPwGXspY072SQahZbM5KRP epzIpO7BnXCJelIcoOfN6m5M0Vm 5PUDwvdGQ+IK40bf69Z9Lb AecsQkm9HESyHPK6hWP6zA4zLEW vJRmvr1C1aGI3F1HsadLzev1jg2 kvJXTdGUiqS62wiAUry9L8 CVOpnYX4DZYyvJcwPfSylQ14Jcu +NYKsgStdl1XaOgzvi4oxh5sfdV y1LwEeGBYvfyAjvDzzNIT5 m3RrXc81X79nZMgxJVBnHRNuDHN wJKVknQfcxg3glE2dEs4+PGNvbC I6kLE9gK5nXnAiVqB3OKuq I712OdBxkRKnQvqdk7utm3karTq 2VkCyYRIxuyRtcJfzODX5o0FgYf 06S6LhhXijo0GpNgw5dy79 fPFpb4C3qVG3X4EcOJRwtnehoVN qfIpuDX5rVCJcytllYAUwbQ0pRP LfO3h9MyOmIiY4CGfnT7Xo srN5RPWfsOOuZSGouWTGlU7occr lg8nxjgivRxNmUGPjYLi1XRk0XP JtuXisDsTqXPV7CqG0HWV3 sNBnxT1wnSfghcyjyV2dEkm+UGh 7c3ptzPSjLE9dfAI2QK00CD67uZ Yjp0T1lXI5R0XfTYMcqdie gawoqJR6KNLfXQKcxP95Ba0cpVe gFa9hAPVyWPU5HWIsfYWvD7FujD 7iXlGoVAItVMVvM1PvfIAz IFsyV710OOhaEsF7WAHaawEaK3Q lHQVymKxnSqY1q5U6Fv0WTR41FM 01QY39jNApr1B9gOY8G0Fv HJPlujzumhpacFI9XORtENZxfY1 2Ig6saOgnLs9kRAUnNDU6MLTezA PhE0DjzH0sTjCzKGVkSNHs G1BoyEPvHEscS593QIwdBgA4KMN jwmDtD1VpLZRwyHszUjJ6z9E7Lh 9DHf80UA56SC38iJLyl7S8 dNZ1F2RfJDEmcoawhhpfmHG2HDK xXVEknR83Kd7icJvwOe1gCTBiLU Y6JVDbuCVvJ1RcxO9kCyNp YORlAWHhS9LilTDeEAtrE086BAm pGsR5MVNcehWvS9PhKCMstOsrAw L8z0G6At8NQCocyds3N2Ml PjwvdHI+VN66YZZgOH23wQXvqSF lw3okdJe3XaLwDRZhSFT6yXtcAV icp4SsXRHkZ12yyFCig7J5 IGN (more content not included)... [facility] Progress Note - Provideron 0 01-29-2024 Progress Note - Provider [id number] [facility] Coding Summaryon 01-22-2024 Coding Summary HTMLBase 64 UchizfijJRx5lZb+PGhlYWQ+PE1 XEBQkT09muKShzP7uX0EECSiFJe uwVOYPHRkXFvGowpIcLE0ktFJcZ XJu IC8+CQ7bMQZzYglstUMbq0P3aCL 9D41tsq2nDInrePJ6XNFfTqTepy wcn5ithVf8PTydKihuVeFv KXNfkI19TQJ1lE30Oo82yVIpmEC wg8ekiLt8ItBiAHGpEXW0aRvqCJ hhj2LuLMFmM23udMDso6I0 ZUImbJdydOOiAyZlvPN2dN0sXQv xwmick6gxftaoKwc5yz43iWMxh3 E7jRQ4V5PtsyC0EBQxsKQa MyposMESsW1hubxvz1virofyCfS pKWJwDIk3YEv4YDEbdBrgQfRzTP 16VDP4XYXiafGeP4LsYPEj bZdsYmX1w2G0Bb9FF4HDEcplF5C NTUFSWTwvdGQ+XQ67qf80I8BmEh hwZnm7PFElBPE9rFQ1xC4w GPUeONqwd7M5mLE8G6UfjfAurn1 ap0raSARvXWwwN85ifJUgs7K6ZP VqwED9TZByvUxxLkPdtD42 Oyc+HAWujPsxv1NeFyvaw8dsz5w bxLd4UzxzAJWbihTvyPdjUPY4a8 VhCx8pWGEyhGT9lBX1qS6s QkEfFdY1QMsyX057ZdEivGLiSzv eS08sH4AhjBJ+JNQbNls9FEUutH ncFJ1jD3ZuTCQcpubkgWRt dDajIO4jAWAmbwutDZJvrB4oKFH sH2r2RzVlEwK4EQikG3ThLNZomi zzYs91tI9rEwSaTdN8CGcl S8GslbR7HSQxbDRzQLjtEPH1J51 il6E5VJVmPTJnTHV8qUZ0pL8cwC lnbjogbGVmdDsgdmVydGlj BCkhVPbaS025PDYslHrsOyRcWZd uZyBEYXRlOiAgMDQvMjkvMjAyND wvdGQ+GNMiPQQ1pIbzGJYv rWRlVZlvBi4vlEmxtSedYJ9cQWP jepguKTMqsI7qBIAzyUXpkGxaYK 5gOMQndkhwz800TuDdADJ4 HCVoyQAiY5UzgV5wCbKqGHGdILW rQ4KyzZSpNUjoP698HZilTnW0NP GmjaZcI2JoQSWruBkwGmW3 m1M7Oi7Eo2WeimxmA6YjgHEtNgU bLzdhHFv4I2WaCcoltCU+PC90YW QsJV66YWb7IEN8oBpfFUrh RYEoT3BluD0tHmHbRBDwSEHbFvh +PHRhYmxlIHdpZHRoPScxMDAlJy VptEgcQN9bQi3fPTQuSGLk dFavgQRzTmKhw8wdGRUiFRsnHO2 wnQotG6NtfKF4MYVxm2h3Uk56N9 0dY8GalVF+IRKzcOD9yJB1 cV7kGgRtKlE1KUpsH065RtSyaLF hAyatm0kzl5jpzIv3NhZ8QKWaap VasYarBFB8t0YnEt62Z74t IHdpZHRoPSIxNSUiIHZhbGlnbj0 vfJ4yIg7+TFIlxDP9iVH4kN9kUg LrKyM8AFwfP661LeEzeVUj Blzzh0klh9ipjMi5MjUqVZAllcG ebAywTEU4p4MvYa86D2ZolAacm6 BoKpl0jh57hDOke2V7kOQ5 H3NpGASlxrzxxTUwkEnkFX6cZHJ hpekoKPUbtV2uCIKxX2p4HqKgYx Y0IIfcZ3EboqS2ITCluHJp CHTvqNNKrE0lirxdx7hjlwjwHoC nOJTuJUa1CMu9ZUObyTepGdWrXG H9QrN7MJY8mUEtlK1anRkn ogxdkR2sDrf+ZSU0zNAcgXBAYF0 lOjwvdGQ+RBRoHES8eSerZAziEU TgnV5wKUZbC4c5TeZdQwB3 DMjrY7LwhdL9AIEzqGMjAITxxRJ PaB8ahibsv3zusyrcIrYpHTPpMR n3PCe8AZByiYtaYeRaTGS5 LbG4APE0hKLacR3ycCdxcketaP5 wOyc+RldntGlbOVV6NMh3I0QhWc i1EGOmnDzcUF5lbQJpKTck Xn1ieZcttAanKH1wYMPehiswt34 8QvWbl8dnQJDhkBJaHNfuOCD2C7 6gh5V1AYZoLCAnLDW7kVR8 lW5mwRbwqftsgBAicZxdtoAmqLd gUGsbTGbuI975HTNdhRhrQfRnXW u6M9XdDiu1SJDlyRycFS8p oKTuKSlkHe5qqDfdbDleUT1aHUD risdui705QmWgx2edLYQnuHEmMT lsEJE9N15bb2I6LFYiBALx SYH8tEZ3lX4heEpbybzypCPhkPf eaoYskLzqXUgaYCuzA257ZINxsJ drPrAwfJu7H9ZtUgo1NCTh mZyvRU9skGChCHrvOw7ihXdriQh sAE4iWLXsbdxaf477MfPjb2hgXV CuxFDbTAvcYTS2J92xp6O2 MQNlUBQgBXV7kOW3mF3yzCnimsi gbGVmdDsgdmVydGljYWwtYWxpZ2 46IHRvcDsnPlBhdGllbnQg RApnPOs3F1JyLurxtQC+VO85FNA kTD97qDCbpUJce9tcxIk9MfEaXC CzUJP8xTecRUatg7YxRUKe R54fxASzi2Q7CHTtsJzgfWCuWgK biWA7xZ4oRBejnmftf1wfqvpkPn xuf7ioxu36kO63N32xQMtk UZPtMXYwRVYsBLFqmQhyhc0hvX1 wIi8+NCUqrLT9gGH1jY1iWYMnRa U3MXqxB620QnQwqGXtDgje n1abl6hjsHp6BdM6HBKykgOxlCt gVYQ1y1HhPj26W47vVRjdYMWjQX QyYVNfFVTkgKmlgi4aoY0r Ii8+FFJbcKO5uQJ7uE7uMsAtCwC 5TYzyR634XkYweLEuRnagH79cL3 JvdXA+MYUvGxi7OLKjcFkm XJ7lzPLzFZapTe6zVSU3HcZpQeZ mKYtbP8IdYKYoewmhwwqkpEC2KP NlVFOplG00Qs9rlHdwQIUn qQBTmH6dwnlhk3frsrhfUiWsCDV bRMm8IFq6YBYeqWdfAoGpAVZ8Nr G6UWA9eKCgiD6dhAjxatwo eZ6fU7VpOBBcbsmkMe86qY1xHyF zDoI1LYanGju+UzCDNmrkA5QMUB kRZuQQZAX6D2BqOgo1ZRDs qYfxDR5acNQmURqnSc9pbDeweGb zFF2wKYXwyuprWKNbyV2wYBTlwM OgwBliZA4xSZEdaytvx202 IoIqLWX2BJEjqWLmZ5IavZ8rUeR pRGQiLQGkW3BgwFStQNcqF721XW mcUxU7TZMlwcIwY9WnOZHe jQwgSwW1l1F3Qm4vSC7uKs6hSVr 5BC57WS22lZGiz7R3nKS4B0YcUZ XuaariblqtfVG1GLAoKDXp jA40sYHiSTvhDa9td4I0n035GPB iFKYccQ52Gz7pwPveQHOngTBRxG 0mxhtfp3mesbjaFwBjTQWi BFu7MWh2KTZrvIvoIoNpHXW4CiD 8JRV5yCSkoZ8ctSygnhgpuN5vWf c+UkIoMMOlniD9R6OkEnz5 UNQflEprSP9tlIEjOSoxOv3xeUv mnZigRN4oADLnlvkjNRDhyD5uKQ IosTAudVcbHP1zPLQfxzdq w733ZxVdZKM9CFJayYHkB5PomR8 rYsOrYFYkLJBlT5YfsPPsRRyqM3 74XWyrOeL8TXMkmqGjN3Fn HYOryAixBrA7j3C6Oe7RDX1TUVZ 9O0AsDfu6DZZhjDyfUW4vgMFwMX jkHk9btZfvvFyxBW9kPUIo czafDKCfuA1oOGMaqAMaqUzrNM1 vOOOaiyfyn764XuCbLVK8HPFewQ NqM5EqmC8cDcLmDNLkAWGi I5ZiiUNdPYykE726CPefHnI3CLT fxoXsS3RzEUCotZfpOaR8h2R0Jc 8LTCdwT3PwO0UbiBfgzKM+ DI66om40P3NxRfhrVmo4QBMoPIJ 6bBY0eF9rHPYuKFfgt3X4qEO2M0 BhzqOssj0vp9fkBAUeNYdo E42stOQus3C5DLEsyQH9QLJlhRb oFmWcwB43Vjg+EIKscZwpb0JeFa etg5zak0xgpAv4DrVmBIOj rvFxwDdgJIJ4d9TfDk68S49zWZi wYQIuFZOoUCBrYLGezHxxge2gvK 9wIi8+FSFriCZ3jPZ1hJ6e QeNbBkH3DYndU142HeUgfVQwFtg fm6wkv8okdEr8ClSzZCAhctXyfX tvYVA9w3FmDp05Z8NcnVgy j2RpWfy9ku50fRPce1I2gKD0P0J xORLkpiytfCDvyOnsQC1hPGWtyp uyGGYaaX2iRXSaE3d5DdFh UwD5CHleV7KczqE3BCDrqLHvTAA pdRJNiW5qduspc0hjnkccHyIvCQ ImLFc5WBk9TFEzvOvzTgNq NGN7IkA9JLA3oOEqyA1xxHjllzo crT8qDuz+FZo5w9hifIIgDN4riC V9GW60NH33oAFbl7G2vSS2 T8WoZQEmzxiygwnljZH8CTYqQUG msD99Ym7zuZhqKj3gARIzWBL0PK HfiMZmY0LzfM9tXyLjZOHt HKVdN5PvnSOzPXreG823DZslXgE 9WBSbroYaC3LmWZHtaCoxYmF7p6 A3Nv9ORS36LY83YG39cHGy f9M7pRP8K8GeGVXfigyxhzieaOP 6EGTrSWDemW50Ot5vnXgwQc8dRU DkLLW1KTKmmGPxP7CfwC4o EpKhUHZcJICaW6EijXQmFBjtO84 8KZylPxO6TEXijgRsJ4QmVCSmlI zcKuJ8j9V7Oc8PVh23LY48 SZ19sFXzk0R0xGQ5Y3LoOWRlkzu xtkwpgMX2LHGfRVLihV81Gp4suN naYk8oJLTiFFO6TJNqlSZr X4KkrF3wNvLcYVGkJNWxK6WcpEL bFCqwL913KLbbVlQ3BCHocsAcN8 RgXDRcnAyoUzH3n0X3Jc4Z KZhjykl8I2QtRplcrYN+MI73JPY zIB53dGPxbRSuu2wlnIe3BgXpPV WfQKF3mVivJNkvp8YvIFPl Y29 (more content not included)... [facility] Coding Summary HTMLBase 64 EcpxvmubTQk4kCc+PGhlYWQ+PE1 WPLHaW60jtNAbyW5bF2DZEGkTVk lbURVJLNmCNzKnreGeEF3myNEvU XJu IC8+YK7tPEItQgwlsPBny1B2qUD 3O27lvt0pOOlpxAU8XFKxCzSdms asa2pbqQc2BOqhVvluRgUr XVFsyQ86IAU9zY93Lw56eNAvnJE lp8mijPk9JxHzOJOxZKF7tLhaRQ nfh1TgHIEfK02ctTBca9G7 LVWbcNogcZJlGiYhrUB5dN5dRMg oabkqs5rhvteoTsv1zw36oNXel9 C5mWJ4J0TnzuO0GXQrnBHy GylupKHFgT6jxgmca9dkojwaGzV zTQVnSVw6HHu7JBKjrYuuLdTpHT 25NEW0CWNmhzRvF1EhFXWq jIoeXeI2g9X5Kk3WK9XWWhovM6J NTUFSWTwvdGQ+DX66rj59C9UwNw vgUom0YWBqSPI3jSC3qY0r FIJsBRbao4T9xDG7G6NwbjZnni6 tn5xbAHUrMYuzY32dtYMyy7T9MA BjlIX3GAIiiLcrYgEwyG32 Oyc+BJXzdFvpy0RxArhbd3mif3f feNw7GiqoVCVfsdNiqMguUOW5m4 YpUa8cIDMvuEQ8fAU8oX0o SeCfGqY5MGrkB877DeGgrJGcPfw mZ06sP5QskAX+SFOoWdm6XZVlyI vcPW9bW8DwCJHrwmzfvGNt yVfqPI2lYIDxqtriINYsrW1zMYN sN1z2MqOeIjG2GWcaR7HbZVPfvw aiQg32nZ9tHaGuBgO0WUpo D5SupgA4OHSotOMmVHtnXCH0U44 ga5T4RNOeBLQfVJH6mVA9mC5zxO lnbjogbGVmdDsgdmVydGlj NPkkERgeY493VHWmkMvjThKsKKi uZyBEYXRlOiAgMDQvMjkvMjAyND wvdGQ+UPGcJWI1nQuwDEQc nQIxDDxyQl4fsDeemKqqMY7iFMN eoekxQQHjgF9bDKJdnLJugIfqVY 8kGBGhjyirg747DbFcYFM2 EUFukAIyN1ZswU3hVbVyERCtEGW uF6FucCVrSLhaH545RDrfHbP7VJ CxzwIvE3YwOAJabVxeSkD6 c0I7Om2Sy6HskbkeU2EqpKExSdG vQakbFDn5Y9AcFojxfJS+PC90YW IsWG66RXs6TBM9eXisFDrp XOAdO2LhkL5yApBcLQOlZGDbJhq +PHRhYmxlIHdpZHRoPScxMDAlJy PslZqpLL7kSz3eGAUmDGRs hVzudJSoQwBvp3gmPELpTZfuAM9 pwCrdR5FeaHB8RPKsj0p9Xi87H5 4lS9MkgFZ+KDKxmIA4lDJ5 cI8wSeXaYkD4ZQtmQ501GeJgkPV wJwdoc8vnw3pfyTw8RmO1AMRekr VegGcnPIO7x1XkKp08G39g IHdpZHRoPSIxNSUiIHZhbGlnbj0 xbO5xHl2+KUGykGI6pNW2hQ6wPu QkFhN8NHlvZ190LfIkvTCk Pntqd8xxm3lebFc1FxYlHILhjfN hsBstSLX6r2FgJq42P7HyqYpre7 IvZsb2vk21sLTnj5V6aQP5 F3FjLRIfgsmgbKNdrJoyEM5ySYL fidxzENFteP4qBVTjR7q1ItGdKi A3URdfS7EgbcJ4FQXlvQQw LNEjoYSUaA3hdznql7njcrqmIiH bAWOdYJm4MXb7XMTevEtbPkSlFN J6IsA6SAF6uSMalO6wbFoy ghcnoD2qPet+JWK9vXBdjVMPFE1 lOjwvdGQ+QTYnEXD1zGswLZlsMO KtjM7tPKTbV0i5YwIoYvS2 AQilC8MhaqS7GRIrbDLsOXGqhQP FmU0piablr2bigrfkYaMbXOEaEO j0XNw0DRQkkHmzDxMmAVF2 IkB7ASG1eIBahK2umFyfcgjzcP9 wOyc+PndoeJuvSXN2ZKd7D9QxMp y9QRCorIkhGP1ubVLyYPba Lf9onTfpfDugUV5lHSFgoijmv84 1GlBaz2uqMGJewUGxPQooCZP0L9 8li8Z0XJLvGGTyKHY2lYQ0 wY1qyRfbzmlqxXQirUbklbIqkZr gXQseWTjrO233NBGzpFynYqEzJZ m5Y0ZdAck0KHAddTyzNC5g vLIoGCsfPo6doHtjpLvaUC1dNWW enjooa657VsRxr6ziZWKscDKrBJ lyAVU6U96wr2M6JXSrBMPi ZUW3eFI2hM6jnCjvzdfliRIyjDn lhrRtaIkrWYjhRPnyF439PKGzbU hdFgTdpAy7C1MeIfs1PXDs zJfxML9wsUWnJHfpPk1wpYjsiVg yIZ1bJQVlblwsf311AbIro8clAS EcwHLePXlhHCV7T34lj6X6 YBBkDSNlIGV7tIE9nX4liPuupku gbGVmdDsgdmVydGljYWwtYWxpZ2 46IHRvcDsnPlBhdGllbnQg IDifSTd7K5DsHcvyoEZ+FQ21CDH zTL98uKEqbZYyg9zmcNc2SuHqVX HuKNR0lEjdARyaz2AnKYKc R88fvYHpp0T7JAKyhOacyEVaNpX upLN1nQ8cYIxftectb5wgckvcTr qlq0cwxp59uD08Y23cBUvf PLQrPMZtGTPfFHBxqXjlsx3fhE8 wIi8+MYFikUQ5tEA7nB5sESXiTh V8PTmwI457RkHiaTClXlfe k8gbz3ipdVr8BrO1PMJzmlOvcAx iKNB2p3MgSy73S42lPPwmDAGaLE PuPNJeVOYrnAiptn4urW9c Ii8+LIRkjZB4fGS5qW2kYwOdVwH 9MXesP183NbGboCGmRphdU91oN9 JvdXA+QETfHtd7EGAxfJrg SG6fkVQvSPsjNi6eBNP8RuBvXhH kMCmfZ4ZdJYYbedienbzihJQ8NN XfIDSefT89Fu1hmWcvLJAv tDGPlF8iiamxf2hadmgvQkWoXTY pQJt6YEh9OFMskHoqJoFbQNG5Zg V4ZEG4yDLrmR7qqTagjzau fM5tS7HxRKNkjastGy10kF1jYfG qXbH3XUmfNlx+SbVRNwxgU9QWRJ uFUoMZKPA8U9NbJxq1SCSl vSpwXR0xgOAzLCekVg7zfZavgOi oTX1xBFAvkwplQQKgyI9jHYJwyI EcvLqlMB6tDUJfqmkoj517 MgZlHWI1BTDlcHUcC6KypN4wBmI rVYYvEOTtQ4IokTPkRQdsJ638OT xfCvX3TBQccbMaA8DdAMQk hGvoBoP0s4F9Is5zVH6kKc9xJGu 6VM92CT33rVHks7W6yYK6L1YdXU RnzreehdrotAP0ZTHpKFKh kT45fGBvDSooPx8ny5Y3j722CFG bEDWscI00Rm0wvDdjVIGcgSLGtM 1jyedsw5bybvurBtBuZHUr KQc8BDo2HCIiaAiqPoDiUDB8GbZ 3NXI3oUNolZ2tfDkfxdvmrQ4cMq c+WuZeUNBdgyD5O7NgWxx7 BQPbuHqlPF4ogLAsDAoaZe4zsHc cnXhuSK9hRQSwapimVPZjiF9sRX UdbUChjSgeAP2oZMAxhoew b897FnKtLJD2ZQZeaECqD3ZmwV9 zVtIfVXXvTGIuZ0UynVYcGBcpC6 06MCtoCuW0RZCyfyWrI8Ax CEMjpDyzSaX7b1W6Fu4TMA9QLYX 3L2OtXnv3OJGogGgdGR0yxUEaUK jdNd9tpBabgFqiLL8aBVVf bbdoUKUaiD9nGBHixLFuwJgwES7 cVBJonsndk693WlJgEVG3QIVbfH TdZ7LeiT1pLxAcIGIrRGIa U7GjmEGaXLnaP885XFvgWtY5MLX bfrHbL1OwFYQzxUgyKfS8l0P3St 5PUDwvdGQ+HS87xi30A5Ia JxpmXgk5WXNfPCI1yXI6zS2nDAE iKVuwg4W4sHG0H3XrikOtjr7ho6 eyYNYcJZifA25lhDJsz2S8 XYViwYE0XHPkaVygUaTcsO91Waw +IZYtrOydt8MgUexya8ooq2hvoJ c3OgSsASUcugNplJapINU6 p0OpMz71W96kEXynATVgXZCiMWF dSCApdVpkod8jeW3dQn2+PGNvbC P0oUK0lB7aRmLyIvC2ASdn D469ByQwsNQtAtvhc3pgd6qrrAz 3DnJsPJKdwzSzaNkmCZG4w2VvMs 36X8AmvDvda0DdJpl0sl74 gSPrz5N7iQU8K9EaYOYmoxfmlIL wdWxsAZ3wUEHikucqWHZitF4gLD HkI7b8MyVvHmE8GNsdA5Ut xqF1BAOjaDUiTEKtbTUPlN7sarj at5jzqfpvInZdBIQiBIg2BLd7ON EddXkbDtXuXMS8MsZ7RIS3 xPOekW9qoEnuptmihH6yRtm+UGh 4j7xckXSfLQ6hyWB6FT03BP99rU Luz5I3yKL1E0AlSRNxxmob twsrkTP9DWVbOLUvcC84Zf8ayDd eTo0fZDHmQDO3MXXslLLuX5FqsK 2eNpAmPAUoMFGkE9DxdKSc LZigL187SPcdVeZ8UVRkaeDzE2W iUJVusJtxUgV2q5P3Zk4NFK74DP 69DU33xYPgk3M9yZW0R8Xv HBZyylamztyukOV1ZCNzVWMedM3 7Qy9ssQkbIp5yYONtZMU9WUMiwB AnC6SfgK2bVvHuDNIfCVZu R8MesGDgCInlR040HTovSaL0NHL bydWaZ8ZfFDEuqHlkBnS1t7M4Fb 8IPj49HF50ZV39sKSup2X7 sLK9F3CdAQKllxkxvaweaLS5JKA sZJRmzH43Qt8foMxkOv4pFABpIE N3PIYqxGImU6JnlQ6uYfGd QYGeEGGxR7AgqQDuRHkdY862FBt eTlS7AXIewwOyS2OrDNTraGabBx Y0c0R6Xj5TUEecmrt1A9Xj PjwvdHI+KS95KFKtIG47zAYhmJN ro3vdwHl4IkNhNDGtSKN4aRjnUC hil1CdRRUyI63knZAwb2S6 IGN (more content not included)... [facility] Consent Formson 01-15-2024 Consent Forms [id number]#1.00[facility] Consent Formson 01-12-2024 Consent Forms [id number]#1.00[facility] Controlled Substances Agreem entson 01-12-2024 Controlled Substances Agreements [id number]#1.00[facility] Inpatient Patient Summaryon 01-12-2024 Inpatient Patient Summary [id number] [place] [address] Patient Discharge Instructions Name: LUCILA JACQUES : 1990 Patient Address: [address] [place] [address] Primary Care Provider: Name: Provider, Loni Phone: After you are discharged if you find you have any questions, please, call [phone] ext [phone] to speak to a nurse. Discharge Diagnosis: Prescription Information: If you have been given a prescription for narcotics, seek immediate medical attention if you have any difficulty breathing or any sudden status changes such as confusion and sleepiness. If you or anyone you know is experiencing suicidal thoughts, mental health, alcohol and/or drug addiction problems; contact the [facility] 17/04 Crisis Hotline -Text 4HTNM kj [phone]. If you received any narcotics, sedation, or [...] business decisions or sign any legal documents [facility] would like to thank you for [...] for Disease Control and Prevention [facility] Intra[facility] Intra-Op Record Summary Primary Physician: ALEC PATEL MD Finalized Date/Time: 01/12/24 11:47:08 Pt. Name: LUCILA JACQUES /Sex: 1990 FEMALE Med Rec #: [id number] Physician: ALEC PATEL MD Financial #: [id number] Pt. Type: D Room/Bed: / Admit/Disch: 01/12/24 [...] Sara L RT (R) ARRT Role Performed Jumpbasting Canvas Baster Jumpbasting Canvas Baster Sergeant Of Officers Time In 01/12/24 11:40:00 01/12/24 11:40:00 01/12/24 11:40:00 Time Out 01/12/24 11:46:00 01/12/24 11:46:00 01/12/24 11:46:00 Procedure Block Nerve(Left) Block Nerve(Left) Block Nerve(Left) Last Modified By: Reba Liagn RN, Kelly RN Weisenburger, Kelly RN 01/12/24 11:46:22 01/12/24 11:46:22 01/12/24 11:46:22 Entry 4 Entry 5 Entry 6 Case Attendee Mason Garner RT (R) Dina Malcolm THOMAS F MD ARRT SPANISH MOSS PICKER Role Performed Sergeant Of Officers Scrub Personnel Surgeon - Primary Time In [...] ARRTPatsy James RT (R) ARRT, Dina Malcolm SPANISH MOSS PICKER, ALEC PATEL MD Last Modified By: Reba [...] E.290 Evaluates (more content not included)... [facility] Preoperative Record MAGR Pre-Op Record Summary Primary Physician: ALEC PATEL MD Finalized Date/Time: 01/12/24 11:49:22 Pt. Name: LUCILA JACQUES /Sex: 1990 FEMALE Med Rec #: [id number] Physician: ALEC PATEL MD Financial #: [id number] Pt. Type: D Room/Bed: / Admit/Disch: 01/12/24 [...] Comment on above: Performed By: #### 3 [id number] ####[facility] (DEFAULT)[address] [place] [address] U Preg Internal Control Pass [facility] Comment on above: Performed By: #### 3 [id number] ####[facility] (DEFAULT)[address] [place] [address] Progress Note - Provideron 0 01-12-2024 Progress Note - Provider [id number] [facility] Coding Summaryon 01-10-2024 Coding Summary HTMLBase 64 JmvyuibyFWa4dXo+PGhlYWQ+PE1 RMJEhT84rfKCiuV4gQ8PQQEcCDk tmNCXLHMcLLbCtdrJfTI6pgQOhQ XJu IC8+XP7jOOEwOegekVFmy3L4vZL 1O42kfs1aMFztuJZ6YBAjKzDcpf sxf2sahMq9JVufWbsiPzBp LQNobU01LJZ9hR28Qp34aDBzjRZ ca9vkcAr7KeQkGCEdIYV7tKgzUT yow7AfRNExL08ocFWyd3U1 HJNotLfoxHQgJjVrkNJ4rL9tWOa uzqazq9hnzllaImd2sx47iVLzt6 D2jMS3F4KeyzV6GBSoiTLl JslpcIRPpC4yxgeow0ommnqgKiB oSHTrUOu1LDh2TGNlxSiuRdKtHU 77XJZ2HUBujoHqW2FpKJBy bAzhNdJ4n2P9Ez1YA1GHMiejH9R NTUFSWTwvdGQ+VM23qf99U3JrDu ojAew0ZRXuITD8wBI1aI2f PVCuKVdvw3T9yLH2C6LhtaCpzo3 wx5gbGYVxBDhsK08tsOPnt7B6BA YhbZB2TOYqkBpgSiQxaJ10 Oyc+ZSWquNcmx7AmRmges1dcm6o frMx6JbapEQRpwtIszJivKSU3n7 ZwWy7uSPIdsGT2zIC8tE8l HlCuOmP2YXifS968RdReyFCzArv oH21iX4WwzJX+MTIvXps8MIGiqG rcCA0eC0EjSYByywptjLHx zYpcQS9rRRBitqrmFFVpxN9vSQN wW4r7UrHiTeI6GMdvV2XpNDLsjq ddVr74wP7gUsDuHnL2EXgb Q5FblgJ4GSQqvCIjDLtnCRN2R23 uh2U8IHBqHCOiOGY3vTO3eZ9xmY lnbjogbGVmdDsgdmVydGlj LQhxYVghJ037SNEtqRjnEuCySCf uZyBEYXRlOiAgMDQvMTcvMjAyND wvdGQ+KCUcWFE6lWdwCQPy bRHbSJyvAv5dzYeztLvjES5nZQR wfwvkQQWxcN6hHQCptTPayXkcZO 0eAWBzipkyc362LfTiNDH9 GOAplJAfC7IhqD6pTfNaFVRwKJI mF8HvbPMtVBgoB145JWhyDsF9UU McneNtN8BjIIRdkMjvEiA3 m7Z5Sp9Js1YcqipmK9LwkWNlAeP sPlxgLAd9P4FxNeffiGA+PC90YW TgYK22ZNn7WSL0wJbaKSay EAZaE3OvxB7pGhJtHATqZBRgJnq +PHRhYmxlIHdpZHRoPScxMDAlJy EsvTjbSJ9fFe5fSDPeIDTi hNeapETrJkRcn7ygDCQjYFafPL8 huHngV3PrcPG8QTObc6d4Av77Q8 9cH2RlmBL+KOQnbHY3nMD7 lF4xLhCoInM3UGedS800YpGbjDG cQlpgr3cio5cvyYo3KmX9CXFqoq NkdQzjXXV5e5CkJu54C32w IHdpZHRoPSIxNSUiIHZhbGlnbj0 yjK7nHc0+HLIxuMX8oGL7dO8jEe OaRiC3KLonP025EkDnfMIu Urwqu7dki8coiSy0MyRdPSVzarI elUviRPP8u9JlRk29S5IotWcqj8 LpUrk3yq35nSKss9K7sUQ2 G2MsKWOzxlcmuMAtqWhpQV6tESZ ytdkyOELijD4gWQKhY6q1XgXnAb R3KYoiG1PkyzM7AITezSJp DTShfKUGqD4xlhmnl4jmnbkrNuW rIKDhWEd5GIs3RKJrcDppWbZaPG I9TmM1OGP7aFGcaD7nnYxh htvqnI1dTbp+BIP3uCLwhQQAUG7 lOjwvdGQ+UFWqDBI2oXdaBOrzCM RdiI5rIRYmZ8s4GeHoXcB4 JQhvF6QhhuN0UGMheKMmGXNrxWY FkL6erkqid9fysgkiEuPcJQWxOE c9OEh4EWSvmPvmVcSzVDJ5 SuR7ZFK3vMYuaJ6psZskufgjcO3 wOyc+KtglfOovEAO4VJe0A9BaZm v5XUNfnTyrOX4ftBGoBLlp Ez2qvKvfaXqtSJ7zVREradwmp56 7AfVqf3kiXWRqwMObCRdfSHS8Y3 9mr4Y6SVWrIBJaDGY5zCK6 cU0puXmelsnnuPRdsLogakSsmXy nZEegBYnlV489SAQqgIgwHmYlFV q0F3OgCqw4QJEmfZhgFH3b hHGuYTiuOi8ihDcuqZbnSB8yZKH yhebyd395JzJfx2wxPPTuyGHpYK alEMT8R40hz2U4EUTyVGOt IAY1mJG0cO3hrThylzigiUSoySl aavMonRccIBciHUjiK732GQVnuT syFiYejDl9C6SwTkl7TZBk jKldRS2ctDWzGUtrGy8cbJqzaMq pDM1zVLRwoivnc644CsUlu4kwIZ HoqAByPThtSLU2K57pk3H4 BHFfQUZcIKS9zWJ8uM4hvAywawo gbGVmdDsgdmVydGljYWwtYWxpZ2 46IHRvcDsnPlBhdGllbnQg HOrdSQl2J7UoTewchOJ+ZE91CYD rCR69fUPyzTPga6fgiCh6FzXiOI DdTBD1eZgzQHhst7ImGJZj T36rfKXbl3J5HLRhcHffpIUzKhQ unOB6dH6eEPjtnubnz2fpsekeOe sys5ghzi48gF77U86pOGiz MVShTXQoLWGdJRUjbXxkao5spT2 wIi8+HGQllGA7aDE6wD3lFBVnPm A9PGtzZ686LaGddKEpPspp s1ibg6oyrAo9DiS6JHXpvySwjYg pAQT6u0QjCi32V82xELjoMXAlBI TnADUtKHVprFvxfl6bwT6j Ii8+LKSckGY7vLD6yA4dXpKkLhX 7CAylO786ChBsyJFmMiviT81vX9 JvdXA+OVQfKri6QLSkiWcj AT1pmTOlXWldXm1bPZE2BePkCyK kSTsyC8GbRYChpluzhdabbQO2NP RfVNVcaN23Qf1oeGuxJUIz iMKNnT5nyzyyx1vwdsrdAyHcTSB rKEc6QHx7FLEkdSakIlOgFEH0Ju M0HOX4yOXhvF5lgFtapfnw dQ1mT2NnUBMobqqvGa15zY8nGvF bDkI4DFqrKft+MeEHBpbcB4SLPP iNAyJMSWN7M2MlSoz4LPYz eEgaBH8gyXSxNXhlDz7ioCqgjXw pSG2mYPTsheztCFEkvX7wLKMmcZ SopLkhKX7cKYOzjjyeo773 TdZfRQP6AAUsoKVuY8ZlyL4xVsK tZRBiDDKxO2RpnIYtXAheB020ET ybFaM7UEHrzxFeI1ZlMDOk jFjcSyV7z4G1Xo7gXX4iBz2oWQg 1GX46UW73jHBfw8F1cNW4I8GrPN GobvnjiucncMA4PCZqMLEl fF84eXNwXArjLi5wl7S2h166QMM aAHKvaU42Oa0bgHuiBZTzyLBBhX 1xtamfi8udjsxoQfXuBUZc EEi7SJn5HOEzwNzoJeTuZPA4FzS 6VWR7tOBqxI0ikHsjlhcypS0nGf c+GpKzNIRinmJ5W0HaXjb4 XEHxqEtlXY6rxJWrPZapYb5bpRi rdTprQG0rWGBkejgnWRShzR7dDF DcpESiiZqtRA1tEDIbcmgq z665YgJpYBL7PZVqsTBuU9OddS7 qIbKvQVStZELdG2SezIDrBKdyM7 20GEseUjM7EJAofkZeX0Vi GBQobLguYwS9k9U8Oy1ZTF6ACFB 6J5JcWgd6EIFhaAyjVO8sfTJkCH dqLs8qnXmpqOczXD9yUEPz nhtlUCNzkW0xPOLwmSLywJskSL9 jNJSsicuhq258MaKaPAI6RRXhtG KsU7KipH2pGsFvLITpWWUl A0KhaNVfZLokC556BGmzCwG7UFC fqoWtI5RvCVWwsEawAeR2g9F9Uk 5PUDwvdGQ+WO17by49D0Dh QqacEuh6WSLsWND3nHT1iA8pEFH nLSsnd3N1qPC8I9DzivHlea6ie3 edIGRuDZcvI25hqYVdv8D3 MVHbjRZ6JJQbmBvsAwCoqZ21Vim +AFRtoKsvd5RfOtelh3iwo4beqU g4GwSwNGDxrxYbpKraYKO2 d0AoIs19B31qQSujBUMvLJRnWRP fCIFqwFwmmh9rmE1kKi2+PGNvbC G6qLW7vI2jWaQwTpV1NEwm Q857WvZebXYoLtxnk4crv8rjmBq 5SeDtUQQlnpXirGukBRK4m7QyMa 13G3AtwJadk4SlZaq6oq54 bSApf7G7zDI9W8MbYEVplkczmWE hlXasNB4dTSDvdrqyYYTdvL2aKV EiZ8m1QbDgJiR8BJabK6Uw jhD0DHZmoASqKEUpwIBPrI9kdew cq8xfwqttFjGkZKWqOKl1XMf0VP KwaXczGnPfLCV5NeR7GOH4 qJSrpH9cwMpudffzbT3nVnt+UGh 8c4hjkQPaXY9jlNB1KS02SC58cX Bxq8H6qRO3F9ViYKRxwjko vemhzTT3NHOyEXEnkU85Ic9poNf vUe2vZJMeOMX8FKQcaBHiN7TkbL 0eKdJxCQBuVQPuL2EsdGQx VLskY600BFrwRsL1JVOwixVaH9H oTZRcjTvqXtY6o6Q7Ro8HLI84UX 81MZ34yXZvq0Z6rWC2L7Ey FCWlnhvhnzzkwJW0OJXuBSVkdX9 1Ff4fsEwuZk7qDPFmWTO5XPVnoU LtS1KxlM3rNiDyIIZcGJYd F7OxfTJdKSrfJ547FJwiOoK1KYZ mvvUgB8SnCAYihWqoThI7d4G5Lu 6SDd89AG06RX93hDYvh4D3 qTT0T3DjMEGpftexgehhjSX5UXV hIUYwiE92Vv2hoFluHn1jNDQiBR G5IYBhyTHdD5FvcE7pYmCl WYFyCNWdR4UomGFoJXywU860WEf aVbA5EUEspvPxJ4XlOTKtkTqjIn R5h4W9Wh2BNTjreyo4A2Nx PjwvdHI+ZX86SPOoPC85yFZioFJ rd0odaBn0UwUxFXYnMPE6iFwwFZ dci6BkGSCmN22wmFIvb6B6 IGN (more content not included)... [facility] Coding Summaryon 01-09-2024 Coding Summary HTMLBase 64 QcmqhgikLLl2aTl+PGhlYWQ+PE1 OEQZkB23hlGMrqD1vC5HUHDsPVt saNVKBLByFPiCxygHbLU0okPNsB XJu IC8+EL2mEQZrOqarsDWyl3V0jAA 8Q67ejm1dLOnpxWU4LLYjTtQtvd zyo5ofbXq9KQizMtalKwDa NKGngB60LVL4tY13Ix14rKNzhAM ws7bgtZa0CsPkRJVfOKL3iXstSG dbj1YiQZRkG76asBJix5G0 VNHeeSytlYYyLiHuiWS1tY8yPTz cangfg4yajehjSzv6ys44jMRwi3 T3qCD0L4QforF2DTBftGQx CznfeZWAxR3oigsqq9uddsryLaX rQAMyXFc5VGr0NZKyjMjbTpCzLY 29HFE5LQTlqzGgX3TjFBQu lRnjDyY0p5A9Wi7IP6ICHccyJ9W NTUFSWTwvdGQ+PQ51nj85M2IkUt tpLzq7CGRbYBR7oLO4eU3m TBOyTPbbf3K2sZS2H7EqgkTxls4 gd7hnEZYsRMhvY88dbADnq8Y3VU KrtHD0XIGusQzbPgRziO62 Oyc+YAEyfQrcy5YvHerfp9bnc3n lrGm8JmzxVCZqmkSffCehEPH9a9 NcCg8kKYUtpXF2zJN1iB8s PgDoSrT8RSqnG203RbXogEMoJbi fW56cF5GkoJO+ZLEjFsv6YBKswV zeTN1oN6YkDRCndgxplSNf wIugQO9xCTUpxzhzUOWxyA9yBVR kA2i3YoYmLaY5CXhfR0AgYAVdxk drPc33gI6bXgOrMuT1PYpw G7AlflR4BMIifKZfOUdoYGJ5J50 ao4Z8VXNvMFJkQSZ5hTH3lE7gvB lnbjogbGVmdDsgdmVydGlj QFgoNYndA151SHLqlObhWmFgHMt uZyBEYXRlOiAgMDQvMTYvMjAyND wvdGQ+VSGwQPX9rLjfCYUq aLUdZBpjFw6twPnogYnyTZ1bJMX obiqsHYDxjQ7wCWAcgJLmsWzrEY 2iSWFiumblr828UzKbJUJ5 TDGwaGDmJ2ZuuH9dAsZnQBScSUG sW3ZjoTXcGPsqX080WMxwNrO0ZF SolgMrC6OuGKAmmQtkVgU2 c5D1Un7Km8UekhgaA5EccFTcClE mGbrgEJv1W3ReRosndIN+PC90YW NbDM73KIb5LGS3lMfpTXta MHQbU1MuuZ4yZrCsJONnUHFlDzm +PHRhYmxlIHdpZHRoPScxMDAlJy YutDekSP8zQx5qFSMdYDXg aSumuEDrNqEsk7yuOTUtZMhtYW0 sbUglS1PfiYZ2IRWfi3v7Au49M6 1eR6BkhKV+INKdqVK4lIN6 fS2tQlQqAzX8UAjcR672SwPsaST vUwkgg6mbl0nhnVe3MvH2XSAthb XjhJjdWSW4w1VeJv78V35a IHdpZHRoPSIxNSUiIHZhbGlnbj0 dnM9xHn8+GUNftUG9wXE6xB3yEu GeLrB0SWneE259GaQpnTUf Cvggs7ajm1srcVv2HmZzCDXdfvO ntBmyYFK5s0RlXe54T6PezMinf1 SqYah8fx21bMIdp0D0hWL0 L6QgCWUebsebdZFjfTbxEN7yAZU czlauKFWdaV7dSEGiT6z2AtWyOb O4DGufG7AyfbV6BANapYGl VLVxyOTMsS5flpckz5tnacdqMdI bRELwOPf1DQy4UNNsuSklQkQhQD H1IbA0URJ1xSXgmR0sbCzl svntdC4nKap+NDJ7jPAgpLQVNV1 lOjwvdGQ+VHSuQYF6tDadLXazSW MbyI6tAGYtJ2o7JsHgWpT3 GDyeA9UuvoJ8HLBhzYOtKTLnlEO MoO8yqxgiu7zygghdHaGlVPOtLE z0MHb9HHCgqPboXoIsVFS9 VnQ9MXT8kRTmzA2rsCdjvcwceX0 wOyc+JzgvyRftAAD7OBl3N8GjPu f7RDSugPmkKI5lmJXvLJhp Gi2wtBovlWleZU5eWOWraoepk90 6FeBbu3riMYYgtWSqCKjxNKH5W5 8iu7E3CRXbVBAfRVO3tPM0 lA4chLdcvudkjOJutHdoanDhzGf xAQciUIniP590XIIizMezRgMhYY q3B8VnShl8PCEkcBbrFY2w kIUyRWpbYk1iuUxbqRrrWN1vLWV bicjxw902PlBkb4hxBHFkjSOqGC rrUQL3T44gp0H4YDGhGYVh ENP4bVU5tW7vtHegpjyplVKdoHp deuNqfJwxSEpmLNdbR543KAZvjI qoCxUcoFb4B7GhSbo6TNGm sRpuST5sbABaHPhcVj8cbAfqfJr wFR2bDRTtcujvt030DpDnx7enWD TcmTKrPHawTMO0P11ci5U1 XYXvCEFuVJZ3kVU6sA4anLalvtl gbGVmdDsgdmVydGljYWwtYWxpZ2 46IHRvcDsnPlBhdGllbnQg RAfuOQw3V5MyCqxuvKK+ZU44KCB mXL11bIJwiOSig5fogBf8IxMkOM VdGHT6hNguDBvet3EfWVOu J04saUKhr9C9ICYpqTcelBWyAnC cnBP2oK8rSOkrhmmxp2jltdctAs fdt8yxfh76uA49I73zZFrr YZBmSYRePLPuEHPwuEzhme7fqT2 wIi8+AFWtgJT2kUO5iR9aBVTuOx W6KZwfC672ZeWnlSTbZqib g8mry9mepYt2XrE3DWFgogLczBl vQCE2y7ZmDw98O19pSSaeALMtWB AvROOuTWOlcUackr6meQ4i Ii8+XLTjhGU3vZJ8pN2dTsZeCvZ 1VRivG397TyJjdUVqDujkM95oR1 JvdXA+DMEoEim0FCKhrHla NR4esGJrCUwiYd6vSVP2DcCuBjP rOUeiD9YcSGRooxcexfyzcNT6NQ BfGFDlxM72Md8osUxgZLUj xQUWgO9jdblkn6udxlzkYzVhKXU kBGq2FUg9BLGdbFudAeCaFGZ9Ah O2ABK2cDPsqE8pySvewazp pP2pR3AzMTPisrfeEp70gY6jEbM bZxI7TXpvWvw+FyBXFmbxD9LVCF yLWtYGHMA6W8IsKlv5YYLk gVtfBC9ljPXsNStgNb4anQlbmGq aWS1qQDGtslqcRZMcsV5hTDKieU LhuPzhLJ8hCHXfetneq434 UnVpILU1IGVvsPTuF6OzjP5gEcG gPNJwXSPtR8TtjWWcJZulE731CA fhCcG1ZAZrokGpN3NbUJVt vJzoCaM4p4R6Qh7iCD3vRd0xGXk 6BC37UF43nKGnk2P4jAI4P8LrLB RafkbnenmlrMR4PNRzELYd gG51uAPcTRrvQl3uq9W7d993KQQ sRGJzxR00Ni1xdEimFTZokGYAvE 1debzcj0fagvtyEsCbNWYm QYc3CEi6PUArpDnnQtUfHKH7BjZ 5XGX4iNWlnN4qqNnekdheeJ3dRx c+CrZhEQKiegJ2I1IuDok2 KLSbkIerPL3ubCUwYZfaLq7cuBd loDrtSH2wCAHjkmwuHSOnqL9vFB FbsRNzwGnyHP5bDUXdfuab d986KrRpRSF2LSLmlYMwK7DzjD8 rTwUxQCWqRHLjY1FabDNbYXuzV9 81ZTdkTcJ5BUGmzoIoD1Gu ZNBsyUccFuC0t5I1Jg4TMD4DYBR 4T6HxWdy5KUBriGxeWC8ajQMqDP tkCp6tzUzztEyuST7uIAZz liuyHFFkwL0xLWLnbMCyuZnhDL2 lIZHaxmami531IhPmOVU9YUPchH SfT7UiqC5vSkMoWMCgLKQk H7OngSHlKJgsM316YEzaYkZ2NHH gogZoE4AwWDNomOjbThF5h0S0Wz 5PUDwvdGQ+WO23jb96A6Yn MdylSle3AJIsNIX0jLB9qA8rSOA pSUctf4D1rXY4Z0QjpvUozn7ah3 ipONTfEJkzR45kxAHik0X6 PHDtlIR9WDVblKniJhRseW15Pwf +WIUlfWbiz6EtKsdhw7aos7cxbF m1ShElQSFhxyZdtMpnYCM5 d5PpEw80S08kTElyBROtOFUvKIM tPPPflPmdtv8hwP1cJs6+PGNvbC B2vBO8tT7aReBqJgB1PFhx E241YvYwvENeCbeax7fml6uvyNi 4QbQcDJKxcrQjxLxuWFU5b8HkNi 61P3GzmEcvo7JuUyc7yk31 kTAug3U0qVQ4S1FaTYNudyanuCY qwUugXT1yJIIkfjnrRVMgrU6xEX ZaN0s3YpOjTeQ8SIscS5Cv vdN8XNWihDQkYWFmyMQYlS8fioe vr9mjxkidXgEiASMzYUa1KPm8QZ GybYgpPsXwAFX3JrD9NNB8 uFDgvD8wdIjnjdbsgV4mUnq+UGh 4n3wkdKAnRB8uiIK2WE30BJ65lZ Anj8Q7tYY1P5JhSSWdwbcn akanxDZ7BFNgTMEqjE46Fb4xfEv fDp7gORBaLFI4BIAfmHQfG4MrwC 6wLuCiMPExODNeP8SmxYXu GPgeV073MWjuTcN0FVHmbmNpW7P bBWCxjNwuBwI8i4D0Na7KLN45MC 33TJ88tTFhp4R2vVN6P8Xq EIIfofkcpiloqBM7TFQqHHHfvH0 1Wx6daFmnIv4nNYZqLVH5JLSgqU KuW8QmmC0oUrLaTETtCWAy B0AkmXVtDJmgO077ATuxPkR9TIT ftzWaG9YqKGOjsLpkBjK7g6H0Ie 7TDh12OK80WZ67iWDjq6C4 zKR1G2JoMYNrffnxhipxvZT1VTF bCRMzbM15Kg9oaPpwTq7rXSXeCM T6LBKjzYIoW1TmwO2yDiSg AFFfSMDvA0SmpIYwSGltU860WMv zCgE4XUOxhtKaJ6AePTSuzVpbSe Z9z9H8Iw2KMFjvvhd5Q6Hf PjwvdHI+VS30MXNgTS84iOWdcLU vk0hyyRs8DiFxFGWsGBD1jYvnKU ssx9XySLWhX11viTUrf6B2 IGN (more content not included)... [facility] XR Hip Complete Right w/ Pel [...] [facility] Sacrum/Coccyx Minimum 2 V iewson [...] Technologist: DARLEEN MALONE [facility] Telemedicine 08-23-2023 Telemedicine [id number] Lior Green in 1990 F Date Provider Department [facility] 08/23/[address] [place] [address] No family history on file Level of Service:[id number] [place] OFFICE/OUTPATIENT ESTABLISHED LOW MDM 20-29 MIN [facility] 37on 07-11-2023 37 Follow-up with famil y medicine as directed. [facility] Telemedicineon 07-11-2023 Telemedicine [id number] Lior Green in 1990 F Date Provider Department [facility] 07/11/[address] [place], [place] [address]cy Medi No family history on file Level of Service:66772 [place] OFFICE/OUTPATIENT ESTABLISHED [facility] 10-19 MIN Reason for Visit and Comments: Headache [52] Normal [facility] HEPATITIS B SURFACE ANTIBODY QUANTon 09-01-2022 HEPATITIS B VIRUS SURFACE AB (MIU/ML) IN SERUM 3.83 mIU/mL Normal [facility] Comment on above: Result Comment: INTE RPRETATION: NONREACTIVE<8.00 mIU/mL INDETERMINATE8.00 - 12.00 mIU/mL REACTIVE>12 mIU/mL Performed By: #### L [id number] #### [facility] ([facility]AKER) [address] [place] [address] T-Spoton 10-18-2021 T-Spot. TB Test Normal [facility] Comment on above: Result Comment: [facility] [employer] [address] [place] [address] (NOTE) T-SPOT.TB Test Results --------- T-SPOT TB [...] R UBI, FANG, JAGDEEP, VZI, TSPOT #### [facility] [address] [place] [address] Splicer Helper: Isreal Astorga MD Measles (Rubeola) Imon 10-15 Measles (Rubeola) Im 6.05 Normal >1.09 [facility] Comment on above: Result Comment: Interpretation: IMMUNE Reference Range: <0.91 Not Immune 0.91-1.09 Equivocal >1.09 Immune Performed By: #### R UBI, FANG, JAGDEEP, VZI, TSPOT #### [address] [address] Splicer Helper: Isreal Astorga MD Mumps,Immun,Abon 10-15-2021 Mumps,Immun,Ab 5.42 Normal >1.09 [facility] Comment on above: Result Comment: Interpretation: IMMUNE Reference Range: <0.91 Not Immune 0.91-1.09 Equivocal >1.09 Immune Performed By: #### R UBI, FANG, JAGDEEP, VZI, TSPOT #### [place] [id number] Splicer Helper: Isreal Astorga MD VZ Immunityon 10-15-2021 VZ Immunity 2.55 Normal >1.09 [facility] Comment on above: Result Comment: Interpretation: IMMUNE Reference Range: <0.91 Not Immune 0.91-1.09 Equivocal >1.09 Immune Performed By: #### R UBI, FANG, JAGDEEP, VZI, TSPOT #### [place] [id number] Splicer Helper: Isreal Astorga MD Rubella Ab, IgGon 10-14-2021 Rubella Ab, IgG 279.3 IU/mL Normal [facility] Comment on above: Result Comment: REFERENCE RANGE: <5.0 NON-REACTIVE (non-immune) 5.0 TO 9.9 EQUIVOCAL >=10.0 REACTIVE (immune) Performed By: #### R UBI, FANG, JAGDEEP, VZI, TSPOT #### [address] [id number] Splicer Helper: Isreal Astorga MD Basic Metabolic Panelon Anion gap [Moles/Vol] 11 mmol/L 9 - 17 mmol/L [place] Bun/Cre Ratio NOT REPORTED [place] Calcium [Mass/Vol] 8.7 mg/dL 8.6 - 10. 4 mg/dL [place] Chloride [Moles/Vol] 107 mmol/L 98 - 10 7 mmol/L [place] CO2 [Moles/Vol] 23 mmol/L 20 - 31 mmol/L [place] Creatinine [Mass/Vol] 0.59 mg/dL 0.5 - 0.9 mg/dL [place] GFR >60 >60 mL/min [place] GFR Non- >60 >60 mL/min [place] GFR/1.73 sq M predicted among non-blacks MDRD (S/P/Bld) [Vol rate/Area] [place] Comment on above: Average GFR for 30-3 9 years old: 107 mL/min/1.73sq m Chronic Kidney Disease: <60 mL/min/1.73sq m Kidney failure: <15 mL/min/1.73sq m eGFR calculated using average adult body mass. Additional eGFR calculator available at: http://www.[facility] [facility]/multiple_crcl_2012.htm GFR/1.73 sq M predicted among non-blacks MDRD (S/P/Bld) [Vol rate/Area] NOT REPORTED [place] Glucose [Mass/Vol] 91 mg/dL 70 - 99 mg/dL [place] Potassium [Moles/Vol] 4.1 mmol/L 3.7 - 5.3 mmol/L [place] Sodium [Moles/Vol] 141 mmol/L 135 - 144 mmol/L [place] Urea nitrogen [Mass/Vol] 10 mg/dL 6 - 20 mg/dL [place] CBC Auto Differentialon Basophils (Bld) [#/Vol] 0.03 10*3/uL [place] Basophils/100 WBC (Bld) 1 % 0 - 2 % [place] Differential Type NOT REPORTED [place] Eosinophils (Bld) [#/Vol] 0.15 10*3/uL [place] Eosinophils/100 WBC (Bld) 3 % 1 - 4 % [place] Erythrocyte distribution width (RBC) [Ratio] 12.4 % 11.8 - 14.4 % [place] Hematocrit (Bld) [Volume fraction] 41.3 % 36.3 - 47.1 % [place] Hemoglobin (Bld) [Mass/Vol] 13.3 g/dL 11.9 - 15.1 g/dL [place] Immature granulocytes (Bld) [#/Vol] 10*3/uL [place] Immature granulocytes (Bld) [#/Vol] 0 % 0 [place] Lymphocytes (Bld) [#/Vol] 1.91 10*3/uL [place] Lymphocytes/100 WBC (Bld) 39 % 24 - 43 % [place] MCH (RBC) [Entitic mass] 29.7 pg 25.2 - 33.5 pg [place] MCHC (RBC) [Mass/Vol] 32.2 g/dL 28.4 - 34.8 g/dL [place] MCV (RBC) [Entitic vol] 92.2 fL 82.6 - 102.9 fL [place] Monocytes (Bld) [#/Vol] 0.46 10*3/uL [place] Monocytes/100 WBC (Bld) 10 % 3 - 12 % [place] Platelet mean volume (Bld) [Entitic vol] 10.7 fL 8.1 - 13.5 fL [place] Platelets (Bld) [#/Vol] NOT REPORTED [place] Platelets (Bld) [#/Vol] 246 10*3/uL [place] RBC (Bld) [#/Vol] 4.48 10*6/uL 3.95 - 5.11 m/uL [place] RBC morphology finding Nom (Bld) NOT REPORTED [place] Segmented neutrophils/100 WBC (Bld) 47 % 36 - 65 % [place] Segs Absolute 2.29 [place] WBC (Bld) [#/Vol] 0.0 10*3/uL 0.0 per 100 WBC [place] WBC (Bld) [#/Vol] 4.9 10*3/uL [place] WBC Morphology NOT REPORTED [place] Iron And TIBCon 05-31-2019 Iron [Mass/Vol] 92 ug/dL 37 - 145 ug/dL [place] Iron Saturation 38 % 20 - 55 % [place] TIBC 243 ug/dL Low 250 - 450 ug/dL [place] UIBC 151 ug/dL 112 - 347 ug/dL [place] Otheron 05-31-2019 Interpretation and review of laboratory results Abnormal [place] Vitamin D 25 Hydroxyon 05-31 Vit D, 25-Hydroxy 20.9 ng/mL Low 30 - 100 ng/mL [place] Comment on above: Reference Range: Vitamin D status Range Deficiency <20 ng/mL Mild Deficiency 20-30 ng/mL Sufficiency 30-100 ng/mL Toxicity >100 ng/mL Vital Signs Date Time Vital Sign Value Performing Clinician Facility 11-21-2024 11:58-0500 Body mass index (BMI) [Ratio] 40.32 kg/m2 [facility] Work Phone: [facility] 11-21-2024 11:58-0500 Body weight 113.31 kg [facility] Work Phone: [facility] 11-21-2024 11:58-0500 Diastolic blood pressure 70 mm[Hg] [facility] Work Phone: [facility] 11-21-2024 11:58-0500 Systolic blood pressure 110 mm[Hg] [facility] Work Phone: [facility] 11-07-2024 13:51-0500 Body mass index (BMI) [Ratio] 40.03 kg/m2 [facility] Work Phone: [facility] 11-07-2024 13:51-0500 Body weight 112.49 kg Catrachito Attila DO Work Phone: [facility] 11-07-2024 13:51-0500 Diastolic blood pressure 72 mm[Hg] Catrachito Attila DO Work Phone: [facility] 11-07-2024 13:51-0500 Systolic blood pressure 120 mm[Hg] Catrachito Attila DO Work Phone: [facility] 10-01-2024 10:38-0500 Body mass index (BMI) [Ratio] 39.19 kg/m2 Catrachito Attila DO Work Phone: [facility] 10-01-2024 10:38-0500 Body weight 110.13 kg Catrachito Attila DO Work Phone: [facility] 10-01-2024 10:38-0500 Diastolic blood pressure 68 mm[Hg] Catrachito Attila DO Work Phone: [facility] 10-01-2024 10:38-0500 Systolic blood pressure 108 mm[Hg] Catrachito Attila DO Work Phone: [facility] 09-04-2024 10:33-0500 Body mass index (BMI) [Ratio] 37.92 kg/m2 Christen Reid MD Work Phone: [facility] 09-04-2024 10:33-0500 Body weight 109.86 kg Christen Reid MD Work Phone: [facility] 09-04-2024 10:33-0500 Diastolic blood pressure 69 mm[Hg] Christen Reid MD Work Phone: [facility] 09-04-2024 10:33-0500 Heart rate 84 /min Christen Reid MD Work Phone: [facility] 09-04-2024 10:33-0500 Systolic blood pressure 105 mm[Hg] Christen Reid MD Work Phone: [facility] 08-12-2024 14:16-0500 Body mass index (BMI) [Ratio] 38.58 kg/m2 Genevieve Donovan PA Work Phone: [facility] 08-12-2024 14:16-0500 Body weight 108.41 kg Genevieve Donovan PA Work Phone: [facility] 08-12-2024 14:16-0500 Diastolic blood pressure 72 mm[Hg] Genevieve Donovan PA Work Phone: [facility] 08-12-2024 14:16-0500 Systolic blood pressure 120 mm[Hg] Genevieve Donovan PA Work Phone: [facility] 07-16-2024 11:31-0400 Body mass index (BMI) [Ratio] 38.54 kg/m2 Catrachito Attila DO Work Phone: [facility] 07-16-2024 11:31-0400 Body weight 108.32 kg Catrachito Attila DO Work Phone: [facility] 07-16-2024 11:31-0400 Diastolic blood pressure 64 mm[Hg] Catrachito Attila DO Work Phone: [facility] 07-16-2024 11:31-0400 Systolic blood pressure 110 mm[Hg] Catrachito Attila DO Work Phone: [facility] 07-05-2024 11:45-0400 Body height 170.2 cm Mishel Segovia MD Work Phone: [facility] 07-05-2024 11:45-0400 Body mass index (BMI) [Ratio] 36.83 kg/m2 Mishel Segovia MD Work Phone: [facility] 07-05-2024 11:45-0400 Body weight 106.69 kg Mishel Segovia MD Work Phone: [facility] 07-05-2024 11:45-0400 Diastolic blood pressure 69 mm[Hg] Mishel Segovia MD Work Phone: [facility] 07-05-2024 11:45-0400 Heart rate 86 /min Mishel Segovia MD Work Phone: [facility] 07-05-2024 11:45-0400 Systolic blood pressure 128 mm[Hg] Mishel Segovia MD Work Phone: [facility] 06-17-2024 11:46-0400 Body mass index (BMI) [Ratio] 37.9 kg/m2 Catrachito Attila DO Work Phone: [facility] 06-17-2024 11:46-0400 Body weight 106.5 kg Catrachito Attila DO Work Phone: [facility] 06-17-2024 11:46-0400 Diastolic blood pressure 78 mm[Hg] Catrachito Attila DO Work Phone: [facility] 06-17-2024 11:46-0400 Systolic blood pressure 116 mm[Hg] Catrachito Attila DO Work Phone: [facility] 05-31-2024 11:30-0400 Body mass index (BMI) [Ratio] 36.74 kg/m2 Lexi Robertson MD Work Phone: [facility] 05-31-2024 11:30-0400 Body weight 106.41 kg Lexi Robertson MD Work Phone: [facility] 05-23-2024 15:41-0400 Body mass index (BMI) [Ratio] 41.48 kg/m2 Sandrita Bowers CNM Work Phone: [facility] 05-23-2024 15:41-0400 Body weight 116.57 kg Sandrita Bowers CNM Work Phone: [facility] 04-29-2024 13:25-0400 Diastolic blood pressure 82 mm[Hg] [facility] 04-29-2024 13:25-0400 Heart rate 80 /min [facility] 04-29-2024 13:25-0400 Respiratory rate 16 /min [facility] 04-29-2024 13:25-0400 SaO2% (BldA) [Mass fraction] 99 % [facility] 04-29-2024 13:25-0400 Systolic blood pressure 145 mm[Hg] [facility] 04-29-2024 10:53-0400 Body temperature 97.4 [degF] [facility] 04-29-2024 10:28-0400 Inhaled oxygen flow rate 2 L/min [facility] 04-29-2024 06:46-0400 Body height 170.18 cm [facility] 04-29-2024 06:46-0400 Body mass index (BMI) [Ratio] 37.6 kg/m2 [facility] 04-29-2024 06:46-0400 Body weight 109 kg [facility] 04-19-2024 09:11-0400 Body height 172.72 cm [facility] 04-19-2024 09:11-0400 Body mass index (BMI) [Ratio] 35.9 kg/m2 [facility] 04-19-2024 09:11-0400 Body weight 107 kg [facility] 02-15-2024 11:55-0400 Body height 172.72 cm [facility] 02-15-2024 11:55-0400 Body mass index (BMI) [Ratio] 36.1 kg/m2 [facility] 02-15-2024 11:55-0400 Body weight 107.95 kg [facility] Encounters Encounter Date Encounter Type Care Provider Facility Start: 12-02-2024 End: 12-02-2024 Clinisync Result Encounter Catrachito Aiken DO Work Phone: [facility] External [facility] Unsolicited Start: 12-02-2024 End: 12-02-2024 Clinisync Result Encounter Catrachito Aiken DO Work Phone: [facility] External [facility] Unsolicited Start: 11-28-2024 End: 11-28-2024 ambulatory CATRACHITO R [facility] Start: 11-27-2024 End: 11-27-2024 Chart abstracting Scanning Provider External [facility] Start: 11-25-2024 End: 11-25-2024 Clinisync Result [...] trimester Start: 11-06-2024 ambulatory None Provider Facility: [facility] Start: 10-25-2024 End: 10-25-2024 Clinisync Result Encounter Catrcahito Attila DO Work Phone: [facility] External Department Unsolicited Start: 10-25-2024 End: 10-25-2024 Clinisync Result Encounter Catrachito Attila DO Work Phone: [facility] External Department Unsolicited Start: 10-15-2024 End: 10-15-2024 ambulatory CATRACHITO AIKEN [facility] Start: 10-01-2024 End: 10-01-2024 Bamboo flowsheet Catrachito Attila DO Work Phone: [facility] Start: 10-01-2024 End: 10-01-2024 Bamboo flowsheet Catrachito Attila DO Work Phone: [facility] Start: 10-01-2024 End: 10-01-2024 flow sheet Catrachito Attila DO Work Phone: [facility] Comment on above: Second trimester pre gnancy; 25 weeks gestation of ; with normal glucose tolerance test (GTT); Diabetes mellitus screening; Retained intrauterine device (IUD) during in second trimester Start: 10-01-2024 End: 10-01-2024 ambulatory CATRACHITO AIKEN Not Available Start: 09-04-2024 End: 09-04-2024 Office outpatient visit 25 minutes Lexi Robertson MD Work Phone: [facility] Comment on above: 21 weeks gestation o f (Primary Dx); Retained intrauterine device (IUD) during in second trimester; History of gastric bypass; Obesity affecting in second trimester, unspecified obesity type; with history of section, antepartum; Multigravida of advanced maternal age in second trimester Start: 09-04-2024 End: 09-04-2024 ambulatory [facility] Comment on above: 21 weeks gestation o f (Primary Dx); Retained intrauterine device (IUD) during in second trimester; History of gastric bypass; Multigravida of advanced maternal age in second trimester Start: 08-12-2024 End: 08-12-2024 Bamboo flowsheet Genevieve SOLITARIO Work Phone: [facility] Start: 08-12-2024 End: 08-14-2024 Clinisync Result Encounter Genevieve SOLITARIO Work Phone: [facility] External Department Unsolicited Start: 08-12-2024 End: 08-14-2024 [...] Start: 07-17-2024 End: 07-17-2024 ambulatory NON STAFF [facility] Work Phone: Start: 07-17-2024 End: 07-17-2024 Patient encounter procedure [facility] Work Phone: Start: 07-16-2024 End: 07-16-2024 [...] Second trimester Start: 07-10-2024 End: 07-10-[address] Start: 07-08-2024 End: 07-08-2024 Orders Only Not In System Ref Prov [facility] Start: 07-05-2024 End: 07-05-2024 Office outpatient visit 40 minutes Mishel Segovia MD Work Phone: [facility] Comment on above: Retained intrauterin e [...] 07-05-2024 End: 07-05-2024 ambulatory CATRACHITO R ATTILA [facility] Comment on above: Retained intrauterin e [...] Unsolicited Start: 06-17-2024 End: 06-17-2024 flow sheet Catrcahito Attila DO Work Phone: [facility] Comment on above: Missed menses; Encounter for supervision of normal first in first trimester; , unspecified gestational age; Encounter for screening for cervical length; complicated by intrauterine device (IUD); induced hypertension, antepartum; Multigravida of advanced maternal age in first trimester Start: 06-17-2024 End: 06-17-2024 ambulatory CATRACHITO ATTILA Not Available Start: 06-11-2024 End: 06-11-2024 ambulatory NON STAFF [facility] Work Phone: Start: 06-11-2024 End: 06-11-2024 Patient encounter procedure MD Santa Estrada II Work Phone: [facility] Work Phone: Start: 05-31-2024 End: 05-31-2024 Office consultation new/estab patient 60 min Lexi Robertson MD Work Phone: [facility] Comment on above: Retained intrauterin e device (IUD) during in first trimester (Primary Dx) Start: 05-31-2024 End: 05-31-2024 ambulatory CATRACHITO VILLATOROO [facility] Comment on above: Retained intrauterin e device (IUD) during in first trimester (Primary Dx) Start: 05-29-2024 End: 05-29-2024 Chart abstracting Lexi Robertson MD Work Phone: [facility] Start: 05-23-2024 End: 05-23-2024 ambulatory SANDRITA [...] Start: 05-15-2024 End: 05-15-2024 ambulatory NON STAFF [facility] Work Phone: Start: 05-15-2024 End: 05-15-2024 Patient encounter procedure [facility] Work Phone: Start: 04-29-2024 Non-patient / Non-visit [facility] Work Phone: Start: 04-29-2024 End: 04-29-2024 Admission to same day surgery center [facility] [place] Start: 04-29-2024 End: 04-29-2024 ambulatory NON STAFF [facility] Work Phone: Start: 04-25-2024 End: 04-25-2024 ambulatory SANDRITA BOWERS Not Available Start: 04-19-2024 End: 04-19-2024 ambulatory NON STAFF [facility] Work Phone: Start: 04-19-2024 End: 04-19-2024 Patient encounter procedure [facility] Work Phone: Start: 04-19-2024 End: 04-19-2024 Discharged Recurring MD Santa Estrada II Work Phone: [facility] [place] Start: 04-19-2024 [facility]istered [facility] [place] Start: 04-19-2024 End: 04-19-2024 ambulatory NON STAFF [facility] Work Phone: Start: 04-19-2024 End: 04-19-2024 Patient encounter procedure [facility] Work Phone: Start: 04-16-2024 End: 04-16-2024 ambulatory SANDRITA BOWERS Not Available Start: 04-15-2024 End: 04-15-2024 [facility] encounter [facility] Work Phone: Start: 04-15-2024 End: 04-15-2024 ambulatory NON STAFF [facility] Work Phone: Start: 03-13-2024 End: 03-13-2024 ambulatory Peter Booth Facility:[facility] Start: 03-12-2024 End: 03-12-2024 Patient encounter procedure [facility] [place] Work Phone: Start: 03-12-2024 End: 03-12-2024 ambulatory NON STAFF [facility] Work Phone: Start: 02-29-2024 End: 02-29-2024 ambulatory [facility] Start: 02-27-2024 End: 02-27-2024 ambulatory NON STAFF [facility] Work Phone: Start: 02-27-2024 End: 02-27-2024 Departed Referred [facility] Start: 02-26-2024 End: 02-27-2024 ambulatory Peter Booth Facility:[facility] Start: 02-15-2024 End: 02-15-2024 ambulatory NON STAFF [facility] Work Phone: Start: 02-15-2024 End: 02-15-2024 Patient encounter procedure [facility] Work Phone: Start: 02-01-2024 End: 02-01-2024 ambulatory VICTOR M LUJAN Not Available Start: 01-25-2024 End: 01-26-2024 ambulatory Audra Reynoso APRN-ADITI Facility:[facility] Start: 01-12-2024 End: 01-13-2024 ambulatory Alec Patel MD Facility:[facility] Start: 01-05-2024 End: 01-06-2024 ambulatory 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 Reynoso 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[employer] Facility:[facility] Start: 12-15-2023 End: 12-15-2023 ambulatory VICTOR M LUJAN Not Available Start: 08-23-2023 End: 08-23-2023 ambulatory [place] Start: 07-11-2023 End: 07-11-2023 ambulatory [place] Start: 09-01-2022 End: 09-01-2022 ambulatory [place] Start: 09-01-2022 End: 09-01-2022 Encounter for antibody response examination [place] Start: 10-14-2021 End: 10-15-2021 ambulatory [facility] Start: 10-13-2021 ambulatory [facility] Start: 04-02-2020 End: 04-02-2020 Subsequent hospital visit by physician Yesica [facility]ILLER [facility] Start: 05-31-2019 End: 05-31-2019 Subsequent hospital visit by physician Yesica MILLER [facility] Comment on above: History of bariatric surgery; Health care maintenance Procedures Date Procedure Procedure Detail Performing Clinician Start: 12-02-2024 US OB BPP W NON-STRESS Catrachito Attila DO Work Phone: Start: 11-25-2024 US OB BPP W NON-STRESS [...] Surgery: [id number] Result Comment: PERF ORMED BY[facility] [place] [address] PATHOLOGIST OPTICAL LENS MANUFACTURING TECH GENO BENEDICT M.D. Start: 03-12-2024 Methicillin resistan [...] Td Vaccines (3 - Td or Tdap) [facility] Start: 04-16-2029 Screening for malign ant neoplasm of cervix [facility] Start: 04-16-2027 Screening for malign ant neoplasm of cervix Pap Smear [facility] Start: 09-04-2025 Adult BMI Screening Adult BMI Screen ing [facility] Start: 09-04-2025 Tobacco Screening Tobacco Screening [facility] Start: 09-04-2025 End: 09-04-2025 US MFM with or without consult US MFM with or without consult Imaging Routine 21 weeks gestation of Retained intrauterine device (IUD) during in second trimester History of gastric bypass Multigravida of advanced maternal age in second trimester Expected: 09/04/2025 (Approximate), Expires: 09/04/2025 [facility] Work Phone: Comment on above: Expected: 09/04/2025 (Approximate), Expires: 09/04/2025 Start: 07-05-2025 Adult BMI Screening Adult BMI Screen ing [facility] Start: 07-05-2025 Tobacco Screening Tobacco Screening [facility] Start: 07-05-2025 End: 07-05-2025 US MFM with or without consult US MFM with or without consult Imaging Routine Retained intrauterine device (IUD) during in second trimester BMI 36.0-36.9,adult Multigravida of advanced maternal age in second trimester Expected: 07/05/2025 (Approximate), Expires: 07/05/2025 [facility] Work Phone: Comment on above: Expected: 07/05/2025 (Approximate), Expires: 07/05/2025 Start: 05-31-2025 Adult BMI Screening Adult BMI Screen ing [facility] Start: 05-31-2025 End: 05-31-2025 US MFM with or without consult US MFM with or without consult Imaging Routine Retained intrauterine device (IUD) during in first trimester Expected: 05/31/2025 (Approximate), Expires: 05/31/2025 [facility] Work Phone: Comment on above: Expected: 05/31/2025 (Approximate), Expires: 05/31/2025 Start: 12-12-2024 End: 12-12-2024 Patient encounter procedure [facility] Start: 11-28-2024 End: 11-28-2024 Patient encounter procedure 11/28/2024 9:45 AM EST Appointment [facility] [place] [address] [facility] [address] [place] [address] [facility] [place] Start: 11-21-2024 End: 02-27-2026 US for US OB follow up transabdominal [...] AM EST Routine [facility] [address] [id number] Catrachito Aiken DO [address] [place] [address] [facility] Start: 10-31-2024 End: 10-31-2024 Patient encounter procedure 10/31/2024 8:30 AM EST Routine [facility] [address] [place] [phone] Genevieve Donovan PA [address] [place] [address] [facility] Start: 10-15-2024 End: 10-15-2024 Patient encounter procedure 10/15/2024 10:00 AM EST Appointment [facility] [address] [place] [address] [facility] Start: 10-01-2024 End: 10-01-2025 CBC panel - Blood by Automated count CBC Lab Routine Diabetes mellitus screening Expected: 10/01/2024 (Approximate), Expires: 10/01/2025 [facility] Work Phone: Comment on above: Expected: 10/01/2024 (Approximate), Expires: 10/01/2025 Start: 10-01-2024 End: 10-01-2024 Patient encounter procedure 10/01/2024 9:50 AM EST Routine [facility] [address] [place] [phone] Catrachito Aiken, DO [address] [place], [place] [id number] Arrived [facility] Comment on above: Arrived Start: 09-11-2024 End: 09-11-2024 Alpha fetoprotein, maternal Alpha fetoprotein, maternal Lab Routine Need for maternal serum alpha-protein (MSAFP) screening Expected: 09/11/2024 (Approximate), Expires: 09/11/2024 [facility] Comment on above: Expected: 09/11/2024 (Approximate), Expires: 09/11/2024 Start: 09-09-2024 End: 09-09-2024 Patient encounter procedure 09/09/2024 2:00 PM EST Routine [facility] [address] [place] [id number] Catrachito Aiken, DO [address] [place] [address] [facility] Start: 09-04-2024 Adult BMI Screening Adult BMI Screen ing [facility] Start: 09-04-2024 Tobacco Screening Tobacco Screening [facility] Start: 08-20-2024 End: 08-20-2024 Patient encounter procedure [facility] Start: 08-14-2024 End: 08-14-2024 Patient encounter procedure 08/14/2024 1:30 PM EST Routine [facility] [address] [place] [address] Genevieve Donovan, LATAF [address] [place] [address] [facility] Start: 07-16-2024 End: 07-16-2024 Patient encounter procedure 07/16/2024 11:10 AM EDT Routine [facility] [address] [phone] Catrachito Aiken DO [address] [place] [address] [facility] Start: 07-05-2024 End: 07-05-2024 Patient encounter procedure [facility] Start: 06-21-2024 End: 06-21-2024 Professional / ancillary services management 06/21/2024 10:30 AM EDT Ancillary Procedure [facility] [address] [phone] [facility] Start: 06-18-2024 End: 06-18-2024 Patient encounter procedure 06/18/2024 2:00 PM EDT Office Visit [facility] [address] [place] [phone] Sandrita Bowers, [facility] [address] [place], [place] [id number] [facility] Start: 06-17-2024 End: 06-17-2025 ABO/Rh ABO/Rh Lab Routine Missed menses Expected: 06/17/2024 (Approximate), Expires: 06/17/2025 [facility] Comment on above: Expected: 06/17/2024 (Approximate), Expires: 06/17/2025 Start: 06-17-2024 End: 06-17-2025 Alanine aminotransferase [Enzymatic activity/volume] in Serum or Plasma ALT Lab Routine Multigravida of advanced maternal age in first trimester Expected: 06/17/2024 (Approximate), Expires: 06/17/2025 [facility] Comment on above: Expected: 06/17/2024 (Approximate), Expires: 06/17/2025 Start: 06-17-2024 End: 06-17-2025 Aspartate aminotransferase [Enzymatic activity/volume] in Serum or Plasma AST Lab Routine Multigravida of advanced maternal age in first trimester Expected: 06/17/2024 (Approximate), Expires: 06/17/2025 [facility] Comment on above: Expected: 06/17/2024 (Approximate), Expires: 06/17/2025 Start: 06-17-2024 End: 06-17-2025 Blood type and Indirect antibody screen panel - Blood Type and screen Lab Routine Missed menses Expected: 06/17/2024 (Approximate), Expires: 06/17/2025 [facility] Work Phone: Comment on above: Expected: 06/17/2024 (Approximate), Expires: 06/17/2025 Start: 06-17-2024 End: 06-17-2025 CBC W Auto Differential panel - Blood [facility] Comment on above: Ordered: 06/17/2024 Expected: 06/17/2024 (Approximate), Expires: 06/17/2025 Start: 06-17-2024 End: 06-17-2025 Creatinine [Mass/volume] in Serum or Plasma Creatinine Lab Routine Multigravida of advanced maternal age in first trimester Expected: 06/17/2024 (Approximate), Expires: 06/17/2025 [facility] Comment on above: Expected: 06/17/2024 (Approximate), Expires: 06/17/2025 Start: 06-17-2024 End: 06-17-2025 Drugs of abuse panel - Urine by Screen method Rapid drug screen, urine Lab Routine Missed menses Encounter for supervision of normal first in first trimester , unspecified gestational age Expected: 06/17/2024 (Approximate), Expires: 06/17/2025 [facility] Comment on above: Expected: 06/17/2024 (Approximate), Expires: 06/17/2025 Start: 06-17-2024 End: 06-17-2025 Lactate dehydrogenase [Enzymatic activity/volume] in Serum or Plasma by Lactate to pyruvate reaction Lactate dehydrogenase Lab Routine Multigravida of advanced maternal age in first trimester Expected: 06/17/2024, Expires: 06/17/2025 [facility] Comment on above: Expected: 06/17/2024 , Expires: 06/17/2025 Start: 06-17-2024 End: 06-17-2025 Protein, urine, 24 hour Protein, urine, 24 hour Lab Routine Multigravida of advanced maternal age in first trimester Expected: 06/17/2024 (Approximate), Expires: 06/17/2025 [facility] Comment on above: Expected: 06/17/2024 (Approximate), Expires: 06/17/2025 Start: 06-17-2024 End: 06-17-2025 Pt and ptt Pt and ptt Lab Routine Multigravida of advanced maternal age in first trimester Expected: 06/17/2024, Expires: 06/17/2025 [facility] Comment on above: Expected: 06/17/2024 , Expires: 06/17/2025 Start: 06-17-2024 End: 06-17-2025 Urate [Mass/volume] in Serum or Plasma Uric acid Lab Routine Multigravida of advanced maternal age in first trimester Expected: 06/17/2024 (Approximate), Expires: 06/17/2025 [facility] Comment on above: Expected: 06/17/2024 (Approximate), Expires: 06/17/2025 Start: 06-17-2024 End: 06-17-2025 Urea nitrogen [Mass/volume] in Serum or Plasma BUN Lab Routine Multigravida of advanced maternal age in first trimester Expected: 06/17/2024, Expires: 06/17/2025 [facility] Comment on above: Expected: 06/17/2024 , Expires: 06/17/2025 Start: 06-17-2024 End: 06-17-2025 US Pelvis transvaginal US OB transvaginal Imaging Routine complicated by intrauterine device (IUD) Expected: 06/17/2024 (Approximate), Expires: 06/17/2025 [facility] Comment on above: Expected: 06/17/2024 (Approximate), Expires: 06/17/2025 Start: 06-17-2024 End: 06-17-2024 Patient encounter procedure 06/17/2024 10:50 AM EDT Routine [facility] [address] [address] Catrachito Aiken DO [address] [place] [address] Arrived [facility] Comment on above: Arrived Start: 06-11-2024 X-ray of left knee XR knee LT 3V - NOT FOR ER USE [facility] Start: 06-11-2024 XR Knee - left 3 Views [facility] Start: 05-31-2024 End: 05-31-2024 Patient encounter procedure [facility] Start: 05-26-2024 COVID-19 Vaccine ( season) COVID-19 Vaccine ( season) [facility] Start: 05-26-2024 COVID-19 Vaccine ( season) COVID-19 Vaccine ( season) [facility] Start: 05-26-2024 Influenza vaccination [facility] Start: 05-23-2024 End: 05-23-2024 Professional / ancillary services management 05/23/2024 3:45 PM EDT Ancillary Procedure [facility] [address] [phone] [facility] Start: 05-23-2024 End: 05-23-2024 ambulatory 05/23/2024 3:30 PM EDT Initial [facility] [address] [place] [phone] Sandrita Bowers, PREM [address] [place], [place] [phone] Arrived [facility] Comment on above: Arrived Start: 04-29-2024 Hospital admission [facility] Start: 04-29-2024 End: 04-29-2024 [facility] Start: 04-29-2024 Physical therapy procedure [facility] Start: 04-19-2024 Plain X-ray of left femur XR femur L T 2V* [facility] Start: 04-19-2024 Plain X-ray of left tibia and left fibula XR tibia fibula LT 2V* [facility] Start: 04-19-2024 XR Femur - left 2 Views [facility] Start: 04-19-2024 XR Tibia and Fibula - left 2 Views [facility] Start: 04-15-2024 [facility] Start: 03-12-2024 MRSA Culture MRSA Culture [facility] Start: 02-15-2024 Pelvis X-ray XR pelvis 1-2V [facility] Start: 02-15-2024 Radiologic examinati on of knee XR knee LT 4V* [facility] Start: 02-15-2024 XR Knee - left 4 Views [facility] Start: 02-15-2024 XR Pelvis 1 or 2 Views [facility] Start: 07-02-2022 DTaP/Tdap/Td vaccine (2 - Td) DTaP/Tdap/Td vaccine (2 - Td) [place], [place] Start: 05-26-2020 Influenza vaccination Flu vaccine (# 1) [place], [place] Start: 04-21-2020 End: 04-21-2020 Office Visit 04/21/2020 Office Visit Obstetrics and Gynecology Karel Palm DO [address] [place], [place] [id number] [phone] [facility] 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 programmer [place] Start: 05-26-2019 Influenza vaccination Flu vaccine (# 1) [place], [place] Start: 2018 Screening for malign ant neoplasm of cervix [facility] Start: 2009 Cervical cancer screen Cervical canc er screen [place], [place] Start: 2009 Screening for malign ant neoplasm of cervix [facility] Start: 2007 DTaP/Tdap/Td vaccine (1 - Tdap) DTaP/Tdap/Td vaccine (1 - Tdap) [place] Start: 2006 Adult BMI Follow Up Plan Adult BMI Follow Up Plan [facility] Start: 2003 HIV screen HIV screen Bina Bryan [place], [place] Start: 2003 HIV screening HIV screen Bina Solomon [place], [place] Start: 2001 Varicella Vaccine (1 of 2 - 13+ 2-dose series) Varicella Vaccine (1 of 2 - 13+ 2-dose series) [place], [place] Start: 2000 Depression Screening Depression Scre brittany [facility] Start: 1989 Varicella vaccine (1 of 2 - 2-dose childhood series) Varicella vaccine (1 of 2 - 2-dose childhood series) [place], [place] Bacteria identified in Urine by Culture Urine culture Microbiology Routine Missed menses Ordered: 06/17/2024 [facility] Comment on above: Ordered: 06/17/2024 CHLAMYDIA TRACHOMATI S (GENITO/STI) CHLAMYDIA TRACHOMATIS (GENITO/STI) Lab Routine Exposure to STD Ordered: 08/12/2024 [facility] Comment on above: Ordered: 08/12/2024 End: 05-31-2019 Cobalamin (Vitamin B12) [Mass/Vol] Vitamin B12 Lab Routine History of bariatric surgery 1 Occurrences starting 05/31/2019 until 05/31/2019 [place], [place] Comment on above: 1 Occurrences starti ng 05/31/2019 until 05/31/2019 Cobalamin (Vitamin B 12) [Mass/Vol] Vitamin B12 Lab Routine History of bariatric surgery 05/31/2019 8:42 AM EDT [place] Cotinine [Mass/volum e] in Serum or Plasma [facility] Cotinine [Mass/volum e] in Serum or Plasma [facility] End: 04-02-2020 Covid-19 Ambulatory Covid-19 Ambulatory Lab Routine Once for 1 Occurrences starting 04/02/2020 until 04/02/2020 [place], [place] Comment on above: Once for 1 Occurrenc es starting 04/02/2020 until 04/02/2020 Covid-19 Ambulatory Covid-19 Amb ulatory Lab Routine 04/02/2020 10:12 PM EDT [place], [place] Glucose measurement estimated from glycated hemoglobin [facility] Hemoglobin A1c/Hemoglobin.total in Blood Hemoglobin A1c Lab Routine Missed menses Ordered: 06/17/2024 [facility] Comment on above: Ordered: 06/17/2024 Hepatitis B virus herr rface Ag [Presence] in Serum or Plasma by Immunoassay Hepatitis B surface antigen Lab Routine Missed menses Ordered: 06/17/2024 [facility] [facility] Comment on above: Ordered: 06/17/2024 Hepatitis C virus Ab [Presence] in Serum or Plasma by Immunoassay Hepatitis C antibody Lab Routine Missed menses Ordered: 06/17/2024 [facility] Comment on above: Ordered: 06/17/2024 HIV-1/HIV-2 antigen/antibody combination immunoassay HIV-1 and HIV-2 antibodies Lab Routine Missed menses Ordered: 06/17/2024 [facility] Comment on above: Ordered: 06/17/2024 Methicillin resistan t Staphylococcus aureus [Presence] in Unspecified specimen by Organism specific culture [facility] MR Knee - left WO contrast F [facility] Neisseria gonorrhoea e DNA [Presence] in Unspecified specimen by SORIN with probe detection Neisseria gonorrhea DNA probe, direct Lab Routine Exposure to STD Ordered: 08/12/2024 [facility] Comment on above: Ordered: 08/12/2024 Nicotine [Mass/volum e] in Serum or Plasma [facility] Nicotine [Mass/volum e] in Serum or Plasma [facility] Patient Education Know your Meds [facility] Work Phone: Reagin Ab [Presence] in Serum by RPR RPR Lab Routine Missed menses Ordered: 06/17/2024 [facility] Comment on above: Ordered: 06/17/2024 Rubella antibody, IgG Rubella an tibody, IgG Lab Routine Missed menses Ordered: 06/17/2024 [facility] Comment on above: Ordered: 06/17/2024 SURESWAB(R) ADVANCED VAGINITIS PLUS, TMA SURESWAB(R) ADVANCED VAGINITIS PLUS, TMA Pathology and Cytology Routine Exposure to STD Ordered: 08/12/2024 [facility] Work Phone: Comment on above: Ordered: 08/12/2024 End: 03-31-2025 US for US OB follow up transabdominal approach Imaging Routine Retained intrauterine device (IUD) during in second trimester every 4 weeks for 4 Occurrences starting 10/01/2024 until 03/31/2025 [facility] Comment on above: every 4 weeks for 4 Occurrences starting 10/01/2024 until 03/31/2025 [facility] Immunizations Immunization Date Immunization Notes Care Provider Marty cerna 07-10-2024 influenza virus vaccine, unspecified formulation Catrachitodamian Villatoroo DO Work Phone: [facility] 07-29-2021 COVID-19 mRNA-1273 (Moderna) [facility] 10-29-2020 COVID-19 mRNA-1273 (Moderna) [facility] 10-01-2020 COVID-19 mRNA-1273 (Moderna) [facility] 06-30-2020 influenza virus vaccine, unspecified formulation Sandrita Floro CNM Work Phone: [facility] 07-03-2019 influenza virus vaccine, unspecified formulation Yesica Khan [place], [place] 06-05-2017 influenza, seasonal, injectable Sandrita Floro CNM Work Phone: [facility] 05-12-2017 influenza, injectabl e, quadrivalent, preservative free Sandrita Floro CNM Work Phone: [facility] 07-02-2012 tetanus toxoid, redu [place] diphtheria toxoid, and acellular pertussis vaccine, adsorbed Yesica Khan [facility] 05-18-2001 measles, mumps and rubella virus vaccine Sandrita Floro CNM Work Phone: [facility] Payers Date Payer Category Payer Commercial Managed C are - HMO [id number] 2024 Managed Care HMO (unspecified) [id number] 2024 Unknown [id number] 2024 Self-pay [id number] 2023 Blue Cross Blue Shield BCBS [id number] 2023 Unknown 2023 Unknown [id number] 2022 Unknown [id number] 2020 Unknown [id number] 2018 Unknown MEDICAL MUTUAL M EDICAL MUTUAL [employer] PLAN MH EMP xxxxxxxxxxxx 2018-Present [phone] [address] [place] [address] xxxxxxxxxxxx [id number] 2018 Medicaid [id number] 2014 Unknown PARAMOUNT ADVANT AGE PARAMOUNT ADVANTAGE xxxxxxxxxxx 2014-Present [phone] [address] [place] [address] xxxxxxxxxxx [id number] .[id number] 1988 Unknown [id number] 2.16.840.1.487968.3.579.2 .196 1988 Unknown [id number] 2.16.840.1.900126.3.579.2 .196 1988 Unknown [id number] 2.16.840.1.875310.3.579.2 .196 1988 Unknown [id number] 2.16.840.1.808550.3.579.2 .1286 1988 Unknown [id number] 2.16.840.1.838969.3.579.2 .1285 1988 Unknown [id number] 2.16.840.1.672873.3.579.2 .1285 1988 Unknown [id number] 2.16.840.1.271802.3.579.2 .1285 1988 Unknown [id number] 2.16.840.1.834202.3.579.2 .1285 1988 Unknown [id number] 2.16.840.1.863877.3.579.2 .1285 1988 Unknown [id number] 2.16.840.1.059723.3.579.2 .1285 1988 Unknown [id number] 2.16.840.1.326835.3.579.2 .1285 1988 Unknown [id number] 2.16.840.1.817508.3.579.2 .1285 1988 Unknown [id number] 2.16.840.1.299470.3.579.2 .8 1988 Unknown [id number] 2.16.840.1.682082.3.579.2 .1988 Unknown [id number] 2.16.840.1.085624.3.579.2 .1988 Unknown [id number] 2.16.840.1.261824.3.579.2 .1988 Unknown [id number] 2.16.840.1.249294.3.579.2 .1988 Unknown [id number] 2.16.840.1.964298.3.579.2 .1988 Unknown [id number] 2.16.840.1.131199.3.579.2 .718 1988 Unknown [id number] 2.16.840.1.900569.3.579.2 .718 1988 Unknown [id number] 2.16.840.1.180481.3.579.2 .9 1988 Unknown [id number] 2.16.840.1.586128.3.579.2 .9 1988 Unknown [id number] 2.16.840.1.552800.3.579.2 .1258 1988 Unknown [id number] 2.16.840.1.568771.3.579.2 .1258 1988 Unknown [id number] 2.16.840.1.700282.3.579.2 .1258 1988 Unknown [id number] 2.16.840.1.281728.3.579.2 .1258 1988 Unknown [id number] 2.16.840.1.190814.3.579.2 .9 1988 Unknown [id number] 2.16.840.1.569603.3.579.2 .1258 1988 Unknown [id number] 2.16.840.1.280780.3.579.2 .9 1988 Unknown [id number] 2.16.840.1.643677.3.579.2 .1258 1988 Unknown [id number] 2.16.840.1.907188.3.579.2 .1258 1988 Unknown [id number] 2.16.840.1.289591.3.579.2 .1258 1988 Unknown [id number] 2.16.840.1.745897.3.579.2 .1258 1988 Unknown [id number] 2.16.840.1.112734.3.579.2 .1258 1988 Unknown [id number] 2.16.840.1.562227.3.579.2 .1286 Unknown [facility] Employees [id number] Unknown [id number] 2.16.840.1.535995.3.579.2 .531 Unknown [id number] 2.16.840.1.274498.3.579.2 .531 Unknown [id number] 2.16.840.1.280451.3.579.2 .531 Unknown [id number] 2.16.840.1.584745.3.579.2 .531 Social History Date Type Detail Facility Start: 05-17-2019 End: 01-03-2020 Tobacco smoking status NHIS Former smoker [place] Start: 05-17-2019 End: 04-25-2024 Cigarettes smoked current (pack per day) - Reported [place] Start: 05-17-2019 End: 04-25-2024 Alcohol intake Yes [place] Start: 05-17-2019 Alcohol Comment social [place], [place] Start: 1990 Sex Assigned At Not on file M [place], [place] Start: 01-03-2020 End: 11-21-2024 Alcohol intake Current drinker of alcohol (finding) [place] Start: 11-14-2019 End: 04-20-2023 Tobacco smoking status LAIS Never smoked tobacco (finding) [facility] Start: 1990 Sex Assigned At Female F [facility] Start: 07-29-2016 End: 04-20-2023 Tobacco use and exposure Smokeless tobacco non-user [facility] Start: 04-21-2024 [facility] Unknown [facility] Start: 07-29-2016 Alcohol Comment 1-2 drinks per month [facility] Start: 07-05-2024 End: 09-04-2024 Alcoholic beverage intake Ex-drinker (finding) [facility] Start: 04-30-2015 Sex Female (finding) [facility] NEGATED: Highlighted row [facility] Medical Equipment Procedure Code Equipment Code Equipment Origin al Text Equipment Identifier Dates Arthroplasty, knee, total, minimally invasive Uncoated unicondylar knee femur prosthesis ()[id number] FDA Start: 04-29-2024 Arthroplasty, knee, total, minimally invasive Uncoated unicondylar knee tibia prosthesis, metallic [id number] FDA Start: 04-29-2024 Arthroplasty, knee, total, minimally invasive Unicondylar knee insert ()[id number] FDA Start: 04-29-2024 Arthroplasty, knee, total, minimally invasive Orthopaedic cement, non-medicated [id number] FDA Start: 04-29-2024 1 strip by In Vi tro route Daily Use in the morning prior to breakfast, 1 hour after each meal for a total of 4times daily. 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 Exam conducted with a program management specialist present. Vitals: Estimated body mass index is [...] on Monday, but encouraged to report to [facility] at this time to have [...] Catrachito Aiken DO documented in this encounter [facility] 11-07-2024 History of Present illness Narrative Reason [...] nursing note reviewed. Exam conducted with a program management specialist present. Vitals: Estimated body mass index is [...] Catrachito Aiken DO documented in this encounter [facility] 11-06-2024 Note Patient Education Ma terials Follows: [...] or lying down. General instructions ? Take mpsq-pji-roqmhmi and prescription medicines only as told by [...] provider. Document Revised: 03/06/2023 Document Reviewed: 03/06/2023 [employer] Patient Education ? 2023 [employer] Contusion A contusion is a deep bruise. Contusions are the result of a blunt injury to tissues and muscle fibers under the skin. The injury causes bleeding under the skin. The skin over the contusion may turn blue, p (more content not included)... [facility] 10-01-2024 History of Present illness Narrative Reason [...] nursing note reviewed. Exam conducted with a program management specialist present. Vitals: Estimated body mass index is [...] Catrachito Aiken DO documented in this encounter [facility] 09-04-2024 History of Present illness Narrative [facility] [...] 03/30/2022 Performed by Mason Martinez DO at [facility] SECTION 06/25/2012 SECTION 10/26/2014 laparoscopic hiatal hernia repair N/A 08/05/2016 Performed by Vahe Fernandez MD at [facility] LAPAROSCOPIC SLEEVE GASTRECTOMY POSSIBLE CLOSURE OF DIAPHRAGMATIC CRURA [facility]INIC N/A 08/05/2016 Performed by Vahe Fernandez MD at [facility] MICRODISCECTOMY LUMBAR Allergies: Allergies Allergen Reactions Amoxicillin [...] Resource Strain: Low Risk (03/13/2024) Received from [facility] Overall Financial Resource Strain (CARDIA) Difficulty of Paying Living Expenses: Not hard at all Food Insecurity: No Food Insecurity (07/05/2024) Hunger Screening Food Insecurity - Worry: Never True Food Insecurity - Inability: Never True Transportation Needs: Unknown (03/13/2024) Received from [facility] PRAP[facility] - Transportation Lack of Transportation (Medical): Not on file Lack of Transportation (Non-Medical): No Physical Activity: Not on file Stress: Not on file Social Connections: Not on file Interpersonal Safety: Not on file Housing Instability: Unknown (03/13/2024) Received from [facility] Housing Stability Vital Sign Unable to [...] - 1.00 mg/dL Final METHOD TRACEABLE TO IDAL STANDARD eGFR (CKD-EPI)non-race dependent 07/10/2024 >90 >59 [...] gestation of [Z3A.21] Please refer to prior [facility] recommendations and consultation notes Ultrasound was [...] primary OB office. If you would like [facility] to perform the growth ultrasound please place a referral Weekly NST and DVP from 34 weeks until delivery due to the patient's medical co-morbidities. To be done in primary OB office Delivery recommended at 39 weeks or earlier as clinically indicated to remove IUD at time of section. The patient desires tubal ligation The patient has a scheduled ultrasound with [facility] She does not have future follow-up visits at [facility] if you would like for us to see the patient again please reach out was The patient is to continue with routine care in your office Thank you for allowing me to participate in her care. Please contact me if you have any concerns. Christen Reid MD, FACOG (she/hers) Maternal- Medicine [facility] [address] [place] [address] This document was created with [employer] technology. Though I make every effort to review the dictation as it is transcribed, on occasion the spoken word can be misinterpreted by the technology leading to inappropriate words, phrases, or sentences. This note is addressed to the requesting provider as a consultation for clinical guidance. Specific medical abbreviations are occasionally used and those are generally approved by the [place]?Board of?Obstetrics and?Gynecology?as well as?Vilma mckeon abbreviations. The above plan of care was based solely on the diagnoses for which a consultation was requested. ?More frequent testing may be indicated based on her other medical/obstetrical conditions. The management of other or medical conditions is beyond the scope of requested consultation and will continue to be followed by the primary dice maker or primary care provider. Note to patient: [...] provider today? No documented in this encounter [facility] 08-12-2024 History of Present illness Narrative Reason [...] of: [place] documented in this encounter [facility] 07-16-2024 History of Present illness Narrative Reason for Appointment: Patient ID: Lucila Jacques is a 34 y.o. female who presents for No chief complaint on file. Patient presents today for Return OB appointment. MEDICATIONS Current Outpatient Medications Medication Instructions Alcohol Swabs (Alcohol Prep Pad) 70 % pads 1 Pad, Topical, Daily, Use four times daily to check FSBS. Blood Glucose Monitoring Suppl (clinovo Glucometer) w/Device kit 1 kit, Does not [...] Past Medical History: Diagnosis Date Migraine headache (CMS/[facility]) Social History Tobacco Use Smoking status: Never [...] nursing note reviewed. Exam conducted with a program management specialist present. Vitals: Estimated body mass index is [...] or undercooked meat, and stay away from [facility]. Patient has been consulted regarding any further do's and don'ts of . Patient voiced understanding and all questions and concerns were answered. Orders Placed This Encounter Procedures POCT urinalysis dipstick manually resulted Follow Up: Patient is to return in 4 weeks for routine OB appointment. Documented by Vikki Fisher LPN on behalf of: Catrachito Aiken DO documented in this encounter [facility] 07-05-2024 History of Present illness Narrative Headache/epigastric [...] yes Have you been seen here at [facility] in a previous ? Yes Recent ER visits or hospitalizations? no Bring blood sugar log or meter with you today? (Please bring them with you for every visit at [facility]) n/a Flu vaccine (Jul-November)? no Any [...] 03/30/2022 Performed by Mason Martinez DO at [facility] SECTION 06/25/2012 SECTION 10/26/2014 laparoscopic hiatal hernia repair N/A 08/05/2016 Performed by Vahe Fernandez MD at [facility] LAPAROSCOPIC SLEEVE GASTRECTOMY POSSIBLE CLOSURE OF DIAPHRAGMATIC CRURA [facility] N/A 08/05/2016 Performed by Vahe Fernandez [...] Resource Strain: Low Risk (03/13/2024) Received from [facility] Overall Financial Resource Strain (CARDIA) Difficulty of Paying Living Expenses: Not hard at all Food Insecurity: No Food Insecurity (07/05/2024) Hunger Screening Food Insecurity - Worry: Never True Food Insecurity - Inability: Never True Transportation Needs: Unknown (03/13/2024) Received from [facility] PRAPARE - Transportation Lack of Transportation (Medical): Not on file Lack of Transportation (Non-Medical): No Physical Activity: Not on file Stress: Not on file Social Connections: Not on file Interpersonal Safety: Not on file Housing Instability: Unknown (03/13/2024) Received from [facility] Housing Stability Vital Sign Unable [...] bring it to the attention of her dice maker to confirm intact expulsion. 2. Obesity affecting [...] to be sent by Dr. Aiken's office. [facility] is happy to review sugar log as needed. CBC, iron, ferritin, calcium and vitamin D level each trimester. Detailed anatomic evaluation at 20-22 weeks with M office visit Serial growth assessments every 4 weeks after the anatomy scan Delivery recommended at 39 weeks or earlier as clinically indicated to remove IUD at time of section. Plan reviewed with patient. She vocalized understanding all questions answered. Retained intrauterine device (IUD) during in second trimester [O26.32] The patient is to continue with routine care in your office [facility], the CDC, and other organizations representing maternal and public health professionals recommend that , , and lactating people and those considering receive the COVID-19 vaccination. Vaccination is the best method to reduce maternal and complications of SARS-CoV-2 infection. This document was created with [employer] technology. Though I make every effort to review the dictation as it is transcribed, on occasion the spoken word can be misinterpreted by the technology leading to inappropriate words, phrases, or sentences. This note is addressed to the requesting provider as a consultation for clinical guidance. Specific medical abbreviations are occasionally used and those are generally approved by the [place]?Board of?Obstetrics and?Gynecology?as well as?Vilma s abbreviations. The above plan of care was based solely on the diagnoses for which a consultation was requested. ?More frequent testing may be indicated based on her other medical/obstetrical conditions. The management of other or medical conditions is beyond the scope of requested consultation and will continue to be followed by the primary dice maker or primary care provider. Thank you for [...] procedures Referring and communicating with other health daycare worker (not separately reported) Documenting clinical information in the electronic or other health record Independently interpreting results (not separately reported) and communicating results to the patient/family/caregiver Care coordination (not separately reported) documented in this encounter [facility] 06-17-2024 History of Present illness Narrative Reason [...] nursing note reviewed. Exam conducted with a program management specialist present. Vitals: Estimated body mass index is [...] to continue and OB care locally at [facility] office with Dr. Aiken along with M. Patient advised to take 81mg Aspirin if tolerated. Gave patient orders for early 24 hour urine and lab workup. Patient to return to clinic in 4 weeks. Documented by Mariaelena Machado LPN on behalf of: Catrachito Aiken DO documented in this encounter [facility] 05-31-2024 History of Present illness Narrative REASON [...] Gastroesophageal reflux disease without esophagitis Morbid obesity ([facility]) Past Medical History: Diagnosis Date Anxiety Arrhythmia [...] 03/30/2022 Performed by Mason Martinez DO at [facility] SECTION 06/25/2012 SECTION 10/26/2014 laparoscopic hiatal hernia repair N/A 08/05/2016 Performed by Vahe Fernandez MD at [facility] LAPAROSCOPIC SLEEVE GASTRECTOMY POSSIBLE CLOSURE OF DIAPHRAGMATIC CRURA [facility] N/A 08/05/2016 Performed by Vahe Fernandez MD at [facility] MICRODISCECTOMY LUMBAR SLEEVE GASTROPLASTY 08/05/2016 ALLERGIES: Allergies [...] and the other consultants, we search on [employer] and all the available care everywhere epic I did review all the imaging studies of the patient available on EMR, ordered by the primary care physician and the other science consultant HABITS: Patient activity no restrictions, diet [...] 5 weeks for 1st trimester ultrasound at [facility] office. 4. Targeted anatomy at weeks gestation at [facility] office. 5. Serial growth ultrasounds 4 [...] patient is in complete care of her dice maker. Patient does have ultrasound office visit scheduled with us. Thank you for allowing me to participate in Lucila Jacques . If there any questions please do not hesitate to contact us. Sincerely, LEXI ROBERTSON MD documented in this encounter [facility] 05-23-2024 History of Present illness Narrative Subjective [...] does also recommend for patient to see [facility] For their consultation also. PVU and [...] also given office phone number and [facility] number to call in case of an emergency or after hours needs. PVU and all questions answered. We did discuss place of delivery. Patient should plan to go to [facility] for all services unless an emergency and they need to go to the closest ER. We can make other arrangements possibly if patient would like to deliver at another facility but I did explain I am now at [place] 100% of the time and would like to do all deliveries there. documented in this encounter [facility] 05-22-2024 Telephone encounter Note Pt had an IUD inserted a month ago and has tested positive for , she hadn't been feeling good lately and it is positive, please call to discuss the next step, in her pregancy and IUD [facility] 05-22-2024 Miscellaneous Notes Pt had an IUD inserted a month ago and has tested positive for , she hadn't been feeling good lately and it is positive, please call to discuss the next step, in her pregancy and IUD documented in this encounter [facility] 02-27-2024 Note Education Materials Gastroenterology Laparoscopic cholecystectomy, [...] these instructions at home: Medicines ? Take tsup-npm-yqsnigx and prescription medicines only as told by [...] keep your urine pale yellow. ? Take gfdi-oxj-inpthsn or prescription medicines. ? Eat foods that [...] and water are not available, use hand community mental health worker. ? Place dry dressings as needed. [...] provider. Document Revised: 03/15/2022 Document Reviewed: 03/15/2022 Shaylee Patient Education ? 2022 [employer] [facility] 02-27-2024 Note [facility] Clinical Discharge Summary PERSON INFORMATION Name LUCILA JACQUES Age 33 Years 1990 Sex FEMALE Language Citizen Of [place] PCP Provider, None Marital Status Med Service Observation Acct# Arrival 02/26/2024 22:40:28 Visit Reason Abdominal pain; ACUTE CHOLECYSTITIS Acuity LOS 000 10:25 Address: [address] [place] [address] Comment: PROVIDER INFORMATION VITALS INFORMATION Vital Sign [...] ibuprofen Medication List: New Medications [id number], [address], [place] [id number], [phone] acetaminophen-hydrocodone (acetaminophen-hydrocodone 325 mg-5 mg oral tablet) [...] range between ( 1.3 and 2.9 ) [place] Abs#: 0.6 x103/mcL -- Normal range between ( 0.0 and 0.8 ) Auto Baso %: 0.4 % -- Normal range between ( 0.2 and 2.0 ) Auto [place] %: 8 % -- Normal range between [...] Anion Gap: 1 (more content not included)... [facility] 01-15-2024 Note [id number] [facility] 01-12-2024 Note [facility] SURGERY Clinical Discharge Summary PERSON INFORMATION Name LUCILA JACQUES Age 33 Years 1990 Sex FEMALE Language Citizen Of [place] PCP Provider, None Marital Status Med Service Pain Management Surgery Acct# Arrival 01/12/2024 10:59:54 Visit Reason GENICULAR PAIN Acuity LOS 004 01:11 Address: [address] [place] [address] Comment: PROVIDER INFORMATION VITALS INFORMATION Vital Sign [...] AM Confirmed DIAGNOSIS Comment: PHYS DOC NOTES [facility] 01-11-2024 Note [id number] The history of present illness has been reviewed. There are no changes document. [Electronically Signed on: 01/12/2024 11:34 EDT] ALEC PATEL MD [Verified on: 01/12/2024 11:34 EDT] ALEC PATEL MD [Transcribed on: 01/11/2024 13:06 EDT] [facility] 08-23-2023 Note Date of Telehealth V isit: 08/23/23 The patient was notified that using 3rd libertarian telecommunication application (e.g. Recommend) is not HIPAA compliant and may carry some privacy risks: Yes This visit was conducted khlp-gq-wrma with the use of audio and video [...] shortness of breath. She has been using rudr-nar-ofkdvbt medications with minimal relief of symptoms. ROS: [...] EMR, and coordinating care. Ching Brooks PA-C [facility] 07-11-2023 Note [facility] Telemedicine Visit Date of Telehealth Visit: 07-11-2023 The patient was notified that using 3rd libertarian telecommunication application (e.g. Recommend) is not HIPAA compliant and may carry some privacy risks This visit was conducted cqmd-qf-apmf with the use of audio and video technology using [employer] between patient and the provider for a virtual visit. Verbal consent to provide and bill this service was obtained on: 07-11-2023 No signature was obtained due to the COVID-19 pandemic. Chief Complaint Patient presents with Headache HPI Patient is a 33-year-old female who presents the telemedicine service today with complaints of a 3-day history of migraines. Patient states that she is taken fjdt-qxm-quvmcyt Tylenol and Tylenol PM. She has a [...] today's date. Greater than 16 minutes spent aeue-pr-ypgb assessing patient, reviewing chart and discussing plan of care including treatment options. Care collaborated all questions answered. Rekha Mustafa PA-C Portions of this chart have been completed with voice recognition software, please excuse any errors. [facility] Evaluation note No assessment inform ation available [facility] Work Phone: Evaluation note Diagnosis Onset Date Primary osteoarthritis of left knee acute [facility] Work Phone: Evaluation note* Diagnosis Onset Date Resolution Status Primary osteoarthritis of left knee acute Primary osteoarthritis of left knee acute [facility] Work Phone: Evaluation note* Diagnosis Onset Date Resolution Status Primary osteoarthritis of left knee acute Status post left partial knee replacement acute [facility] Work Phone: Evaluation note* Diagnosis Onset Date Resolution Status Primary osteoarthritis of left knee acute Status post left partial knee replacement acute Status post left partial knee replacement acute [facility] Work Phone: Evaluation note* Diagnosis 14 weeks gestation of Second trimester state, incidental documented in this encounter [facility]* Diagnosis Exposure to STD Need for maternal serum alpha-protein (MSAFP) screening Screening, , for anatomic survey Encounter for anatomic survey Second trimester state, incidental 18 weeks gestation of documented in this encounter [facility]* Diagnosis examination or test, positive result- Primary IUD check up Amenorrhea Absence of menstruation documented in this encounter [facility] HealthcareEvaluation note* Diagnosis Missed menses Encounter for supervision of normal first in first trimester , unspecified gestational age Encounter for screening for cervical length complicated by intrauterine device (IUD) induced hypertension, antepartum Transient hypertension of , antepartum Multigravida of advanced maternal age in first trimester documented in this encounter [facility] HealthcareEvaluation note* Diagnosis Second trimester state, incidental 25 weeks gestation of with normal glucose tolerance test (GTT) Diabetes mellitus screening Screening for diabetes mellitus Retained intrauterine device (IUD) during in second trimester documented in this encounter [facility] HealthcareEvaluation note* Diagnosis Third trimester state, incidental 30 weeks gestation of with IUD in place, antepartum, first trimester documented in this encounter [facility] HealthcareEvaluation note* Diagnosis Retained intrauterine device (IUD) during in first trimester- Primary documented in this encounter [facility]* Diagnosis Retained intrauterine device (IUD) during in first trimester- Primary [facility] Diagnosis Retained intrauterine device (IUD) during in second trimester- Primary BMI 36.0-36.9,adult Multigravida of advanced maternal age in second trimester documented in this encounter [facility]* Diagnosis Retained intrauterine device [...] weeks gestation of [facility] Diagnosis 21 weeks gestation of - Primary Retained intrauterine device (IUD) during in second trimester History of gastric bypass Obesity affecting in second trimester, unspecified obesity type with history of section, antepartum Multigravida of advanced maternal age in second trimester [facility] Diagnosis 21 weeks gestation of - Primary Retained intrauterine device (IUD) during in second trimester History of gastric bypass Multigravida of advanced maternal age in second trimester documented [facility]* Diagnosis 32 weeks gestation of Third trimester state, incidental with IUD in place, antepartum, first trimester documented in this encounter [facility] HealthcareInstructionsNot on filedocumented in this [facility] SystemInstructionsNot on filedocumented in this [facility] SystemInstructionsNot on filedocumented in this [facility] InstructionsNot on filedocumented in this [facility] InstructionsNot on filedocumented in this [facility] InstructionsNot on filedocumented in this [facility] Instructions* Attachments The following attachments cannot be sent through Care Everywhere. * Preeclampsia (Citizen Of [place]) * Movement ([place]izen [place]) [facility] SystemInstructionsNot on file documented in [facility] SystemInstructionsNot on file documented in [facility] Assessments Diagnosis History of bariatric surgery Bariatric surgery status Health care maintenance Unspecified general medical examination Advance Directives Documents on File Type Date Recorded Patient Folder Machine Expl anation Advance Directives and Living Will Power of Human Resources Hr Representative Advance Directive Response Recorded Date/ Time Advance [...] Lexi Robertson MD [address], [address] [place] [id number] [facility] [address] [facility] [place] [address] Referral ID Status Reason Start Date Expiration Date V isits Requested Visits Authorized [id number] Pending Review 05/31/2024 05/31/2025 1 1 Specialty Diagnoses / Procedures Referred By Contac t Referred To Contact Maternal and Medicine Diagnoses Retained intrauterine device (IUD) during in second trimester BMI 36.0-36.9,adult Multigravida of advanced maternal age in second trimester Procedures US MFM with or without consult Mishel Segovia MD [address], [address] [place] [address] [facility] [address] [place] [address] Referral ID Status Reason Start Date Expiration Date V isits Requested Visits Authorized [id number] Pending Review 07/05/2024 07/05/2025 1 1 Additional Source Comments INFORMATION SOURCE (unrecogn ized section and content) DATE CREATED AUTHOR 10/18/2021 [facility] DATE CREATED AUTHOR AUTHOR'S ORGANIZ ATION 08/30/2023 [facility] DATE CREATED AUTHOR AUTHOR'S ORGANIZ ATION 02/02/2024 [facility] DATE CREATED AUTHOR AUTHOR'S ORGANIZ ATION 03/16/2024 [facility] DATE CREATED AUTHOR AUTHOR'S ORGANIZ ATION 06/13/2024 [facility] DATE CREATED AUTHOR AUTHOR'S ORGANIZ ATION 09/07/2024 [facility] DATE CREATED AUTHOR AUTHOR'S ORGANIZ ATION 10/16/2024 [facility] DATE CREATED AUTHOR AUTHOR'S ORGANIZ ATION 11/12/2024 [facility] DATE CREATED AUTHOR AUTHOR'S ORGANIZ ATION 11/23/2024 [facility] DATE CREATED AUTHOR AUTHOR'S [...] June 11, 2024 End: June 11, 2024 Correctional Nurse Relationship Specialty Start Date End Date Unallocated, Haley Garcia MD [address] [facility] [place] [address] PCP - General Family Medicine 02/01/24 Victor M Lujan, CLAIMS SUPPORT SPECIALIST [address] [place] [address] PCP - [place] [employer] 03/25/24 Team Status: Inactive Member Role Status Dates NON STAFF Primary Care Provider Active Start: July 17, 2024 End: July 17, 2024 Santa Estrada II, MD Attending Provider Active Start: July 17, 2024 End: July 17, 2024 Correctional Nurse Relationship Specialty Start Date End Date Unallocated, Haley Garcia MD [address] [facility] [place] [address] PCP - General Family Medicine 02/01/24 Victor M Lujan, CLAIMS SUPPORT SPECIALIST [address] [place] [address] PCP - [place] [employer] 03/25/24 Correctional Nurse Relationship Specialty Start Date End Date Unallocated, Haley Garcia MD [address] [place] [address] PCP - General Family Medicine 02/01/24 Victor M Lujan, CLAIMS SUPPORT SPECIALIST [address] [place] [address] PCP - [place] [employer] 03/25/24 Correctional Nurse Relationship Specialty Start Date End Date Unallocated, Haley Garcia MD [facility] [facility] [address] PCP - General Family Medicine 02/01/24 Victor M Lujan, CLAIMS SUPPORT SPECIALIST [address] [place] [address] PCP - [place] [employer] 03/25/24 Correctional Nurse Relationship Specialty Start Date End Date Unallocated, Haley Garcia MD [facility] [place] [address] PCP - General Family Medicine 02/01/24 Victor M Lujan, CLAIMS SUPPORT SPECIALIST Critical [facility] hospital [place] [address] PCP - [place] [employer] 03/25/24 Correctional Nurse Relationship Specialty Start Date End Date Unallocated, Haley Garcia MD [facility] [place] [address] PCP - General Family Medicine 02/01/24 Victor M Lujan, CLAIMS SUPPORT SPECIALIST Critical access hospital [place] [address] PCP - [place] [employer] 03/25/24 Correctional Nurse Relationship Specialty Start Date End Date Unallocated, Haley Garcia MD [facility] [place] [address] PCP - General Family Medicine 02/01/24 Victor M Lujan, CLAIMS SUPPORT SPECIALIST [address] [place] [address] PCP - [place] [employer] 03/25/24 Correctional Nurse Relationship Specialty Start Date End Date Unallocated, Haley Garcia MD [facility] [place] [address] PCP - General Family Medicine 02/01/24 Victor M Lujan, CLAIMS SUPPORT SPECIALIST [address] [facility] [place] [address] PCP - [place] [employer] 03/25/24 Correctional Nurse Relationship Specialty Start Date End Date Unallocated, Noms MD Radha [address] [place] [address] PCP - General Family Medicine 02/01/24 Victor M Lujan, CLAIMS SUPPORT SPECIALIST [address] [facility] [place] [address] PCP - [place] [employer] 03/25/24 Correctional Nurse Relationship Specialty Start Date End Date Unallocated, Noms MD Radha [address] [facility] [place] [address] PCP - General Family Medicine 02/01/24 Victor M Lujan, CLAIMS SUPPORT SPECIALIST [address] [place] [address] PCP - [place] [employer] 03/25/24 Correctional Nurse Relationship Specialty Start Date End Date Unallocated, Nommike Garcia MD [address] [facility] [place] [address] PCP - General Family Medicine 02/01/24 Victor M Lujan, CLAIMS SUPPORT SPECIALIST [address] [place] [address] PCP - [place] [employer] 03/25/24 Correctional Nurse Relationship Specialty Start Date End Date Unallocated, Haley Garcia MD [address] [place] [address] PCP - General Family Medicine 02/01/24 Victor M Lujan, CLAIMS SUPPORT SPECIALIST [address] [place] [address] PCP - [place] [employer] 03/25/24 Correctional Nurse Relationship Specialty Start Date End Date Unallocated, Acs ProviderMD [address] [facility] [place] [address] PCP - General Family Medicine 02/01/24 Victor M Lujan, CLAIMS SUPPORT SPECIALIST [address] [facility] [place] [address] PCP - [place] [employer] 03/25/24 Correctional Nurse Relationship Specialty Start Date End Date Unallocated, Noms MD Radha [address] [place] [address] PCP - General Family Medicine 02/01/24 Victor M Lujan, CLAIMS SUPPORT SPECIALIST [address] [place] [address] PCP - [place] [employer] 03/25/24 Correctional Nurse Relationship Specialty Start Date End Date Unallocated, Noms MD Radha [address] [place] [address] PCP - General Family Medicine 02/01/24 Correctional Nurse Relationship Specialty Start Date End Date Pcp, [place] [address] PCP - General Family Medicine 09/04/23 Correctional Nurse Relationship Specialty Start Date End Date Pcp, [place] [address] PCP - General Family Medicine 09/04/23 Correctional Nurse Relationship Specialty Start Date End Date Pcp, [place] [address] PCP - General Family Medicine 09/04/23 Correctional Nurse Relationship Specialty Start Date End Date Pcp, [place] [address] PCP - General Family Medicine 09/04/23 Correctional Nurse Relationship Specialty Start Date End Date Pcp, [place] [address] PCP - General Family Medicine 09/04/23 Correctional Nurse Relationship Specialty Start Date End Date Pcp, [place] [address] PCP - General Family Medicine 09/04/23 Correctional Nurse Relationship Specialty Start Date End Date Pcp, [place] [address] PCP - General Family Medicine 09/04/23 Correctional Nurse Relationship Specialty Start Date End Date Pcp, [place] [address] PCP - General Family Medicine 09/04/23 Correctional Nurse Relationship Specialty Start Date End Date Unallocated, Noms Provider, [place] [address] PCP - General Family Medicine 02/01/24 Correctional Nurse Relationship Specialty Start Date End Date Pcp, [place] [address] PCP - General Family Medicine 09/04/23 Goals [...] BE BASED ON THE PRIMARY CLINICAL RECORDS. [employer] provides no warranty or guarantee of the accuracy or completeness of information in this document.
[2024-12-05 16:36] LABS: Bilirubin Urine NEGATIVE (NEGATIVE); Blood Urine NEGATIVE (NEGATIVE); Clarity Urine CLEAR (CLEAR); Color Urine YELLOW (YELLOW); Glucose Urine UA NEGATIVE (NEGATIVE); Ketones Urine NEGATIVE (NEGATIVE); Leukocyte Esterase Urine NEGATIVE (NEGATIVE); Nitrite Urine NEGATIVE (NEGATIVE); Protein Urine TRACE mg/dL (NEG/TRACE); Specific Gravity Urine 1.015 (1.005-1.025)
[2024-12-05 16:37] LABS: Urine Microscopic Indicated NO
[2024-12-05] MEDS: BUTALB/ACETAMINOPHEN/CAFFEINE 50-325-40MG TABLET 1 TAB PO (17:12)
[2024-12-05 17:19] LABS: Basophils Percent Auto 0.4 % (0.2-2.0); Eosinophils Absolute Auto 0.1 10^3/uL (0.0-0.7); Eosinophils Percent Auto 1.3 % (0.9-7.0); Hematocrit 34.4 % (36.0-48.0); Hemoglobin 11.7 g/dL (12.0-16.0); Immature Granulocytes Abs Auto 0.07 10^3/uL (0.00-0.03); Immature Granulocytes Pct Auto 0.7 % (0.0-0.5); Lymphocytes Absolute Auto 1.8 10^3/uL (1.2-3.8); Lymphocytes Percent Auto 18.2 % (20.5-60.0); Mean Corpuscular Hemoglobin 29.6 pg (26.7-34.0); Mean Corpuscular Volume 87.1 fL (81.0-99.0); Mean Platelet Volume 9.1 fL (9.5-13.5); Monocytes Absolute Auto 0.9 10^3/uL (0.3-0.8); Monocytes Percent Auto 9.1 % (1.7-12.0); Neutrophils Absolute Auto 6.8 10^3/uL (1.4-6.5); Neutrophils Percent Auto 70.3 % (43.0-75.0); Platelet Count 230 10^3/uL (150-450); Red Blood Count 3.95 10^6/uL (4.20-5.40); Red Cell Distribution Width 12.4 % (11.0-15.0); White Blood Count 9.7 10^3/uL (4.0-11.0)
[2024-12-05 17:24] LABS: Creatinine Urine Random 161.47 mg/dL (20.00-300.00); Protein Creatinine Ratio Urine 0.15; Total Protein Urine Random 23.9 mg/dL (<=11.9)
[2024-12-05 17:34] LABS: Alanine Aminotransferase 9 U/L (14-59); Albumin Globulin Ratio 0.7; Albumin Level 2.5 g/dL (3.4-5.0); Alkaline Phosphatase 133 U/L (46-116); Anion Gap 13.9; Aspartate Amino Transferase 15 U/L (15-37); BUN Creatinine Ratio 10.9; Bilirubin Total 0.3 mg/dL (0.2-1.0); Calcium 8.4 mg/dL (8.5-10.1); Carbon Dioxide 21.9 mmol/L (21.0-32.0); Chloride 105 mmol/L (98-107); Estimated GFR (African America >60 (>=60 mL/min/1.73m^2); Estimated GFR (Non-African Ame >60 (>=60 mL/min/1.73m^2); Globulin 3.5 g/dL; Glucose 87 mg/dL (74-106); Partial Thromboplastin Time 26.8 sec (22.3-36.2); Potassium 3.8 mmol/L (3.5-5.1); Prothrombin Time 9.8 sec (9.0-11.6); Sodium 137 mmol/L (136-145); Uric Acid 4.2 mg/dL (2.6-6.0)
[2024-12-05 17:36] LABS: INR <0.93
== END 2024-12-05 18:25 | disposition home or self-care (01) ==
PROVIDERS: Admitting Provider Obstetrics & Gynecology; Visit Provider Obstetrics & Gynecology
DX: O26.893 Other specified pregnancy related conditions, third trimester (principal); G43.909 Migraine, unspecified, not intractable, without status migrainosus; Z3A.34 34 weeks gestation of pregnancy
CPT/HCPCS: 36415; 59025; 80053; 81003; 82570; 84156; 84550; 85025; 85610; 85730; G0378; G0379; J1200; J2765; J3010

== ENCOUNTER 2024-12-05 18:38 | Emergency (ER) | payer OTHER, SELFPAY ==
--- OUTSIDE RECORDS SUMMARY | 2024-12-05 18:46 | XMS_ITS | CCD ---
Author Organization [facility] Care Team Providers Care Trust Operations Assistant Name Role Phone Yesica Khan Primary Care Provider ROCÍO GONZALEZ Referring Unavailable YESICA KHAN Primary Care Unavailable ROCÍO GONZALEZ Referring Unavailable YESICA KHAN Primary Care Unavailable DENISE TAYLOR Referring Unavailable Audra Cameron Attending Sravanthi Patel MD, Alec Sethi Attending Charles MAJANO, Audra Burns Attending Sravanthi shell NON STAFF Primary Care Provider UnavailMD Santa [place] II Attending Provider MD Maurizio Mast Attending Provider [phone] NO FAMILY, PHYSICIAN Primary Care Provider MD Santa Rebolledo II Referring Provider [phone] MD Santa Estrada II Attending Provider NON [...] Haley Provider Primary Care Provi 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, Victor M Worley Unavailable NON STAFF Primary [...] PCP, NOT IN SYSTEM Primary Care Unavailable [address] [place] [address], [facility] Referring Unavailable PCP, NOT IN SYSTEM Primary Care Unavailable ATTILA, CATRACHITO R Referring Unavailable PCP, NOT IN SYSTEM Primary Care Unavailable Pcp, Not In System Primary Care Provider Unavail able Peter Booth Attending Unavailable Provider, None Primary Care Unavailable [place], Audra M Admitting Unavailable [place], Audra M Attending Unavailable Provider, None Primary Care Unavailable Provider, None Primary Care Unavailable Maurizio Mast Admitting Unavailable Maurizio Mast Attending Unavailable Juliano Peterson Consulting Unavailable [place], Audra M Admitting Unavailable [place], Audra M Attending Unavailable Provider, None Primary Care Unavailable [place], Audra M Attending Unavailable Provider, None Primary Care Unavailable [place], Audra M Admitting Unavailable KINDLALEC F Admitting Unavailable KINDLALEC F Attending Unavailable Provider, None Primary Care Unavailable Provider, None Primary Care Unavailable Randy Walker Admitting Unavaila Randy Landers Attending Unavaila ble Peter Booth Attending Unavailable Provider, None Primary Care Unavailable ATTILA, CATRACHITO Attending Unavailable ATTILA, CATRACHITO Attending Unavailable GENEVIEVE DONOVAN Attending Unavailable ATTILA, CATRACHITO Attending Unavailable SANDRITA BWOERS Referring Unavailable FLORSANDRITA Wood Attending Unavailable SANDRITA BOWERS Attending Unavailable FLORO, SANDRITA León Attending Unavailable VICTOR M LUJAN Attending Unavailable VICTRO M LUJAN Referring Unavailable VICTOR M LUJAN Attending Unavailable ATTILA, CATRACHITO Attending Unavailable ATTILA, CATRACHITO Attending Unavailable ATTILA, CATRACHITO R Referring Unavailable PCP, NOT IN SYSTEM Primary Care Unavailable Allergies Allergy Classification Reported Allergen(s) Allergy Type Date of Onset Reaction(s) Facility Magnesium (1 source) Magnesium Drug Allergy 4 [facility] NSAIDs (1 source) Ibuprofen Drug Allergy 4 [facility] Potassium (1 source) Potassium Drug Allergy [address] [facility] (2 sources) Magnesium-Conta ining Compounds Propensity to adverse reactions to drug 9 [place], [place] (20 sources) Ibuprofen; Translations: [ibuprofen] Drug Allergy 9 [place], [place] (1 source) Potassium-Conta ining Compounds Propensity to adverse reactions to drug 0 [place], [place] (1 source) ALLERGIES NOT ON FILE; Translations: [ALLERGIES NOT ON FILE] Propensity to adverse reactions (disorder) [facility] (20 sources) Magnesium; Translations: [magnesium] Drug Allergy 2 [facility] (20 sources) Potassium; Translations: [potassium] Drug Allergy 3 [facility] (9 sources) Contrast media Allergy to substance 4 [facility] (6 sources) NSAIDS (Non-Steroidal Anti-Inflamma Allergy to substance 4 [facility] (1 source) Ibuprofen Drug Allergy 4 [facility] (20 sources) Non-steroidal anti-inflammato ry agent Drug Allergy 3 [facility] Healthcare Work Phone: (20 sources) Amoxicillin-Pot Clavulanate Drug Intolerance 1 [facility] Healthcare (20 sources) Amoxicillin; Translations: [AMOXICILLIN] Drug Allergy 4 [facility] (12 sources) NSAIDs; Translations: [NSAIDS (NON-STEROIDAL ANTI-INFLAMMATO RY DRUG)] Propensity to adverse reactions to drug (disorder) 2 Hives [facility] (20 sources) Potassium Chloride; Translations: [POTASSIUM CHLORIDE] Drug Allergy 2 Hiv [facility] (16 sources) Iodinated Contrast Media; Translations: [IODINATED CONTRAST MEDIA] Drug Intolerance 4 Hives, Itching, Rash [facility] Healthcare Medications Current Medications Medication Drug Class(es) [...] mouth Daily 08/12/2024 Discontinued (Therapy completed) levonorgestrel 0.436259 mg/hr intrauterine system (2 sources) Progestin, Progestin-containing [...] VITAMINS DAILY ORAL) Take by mouth. 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 Ordering Physician: Catrachito Aiken D.O. Date of Service: 12/02/24 Procedure(s): US OB BPP w non-stress Accession Number(s): [id number] cc: Catrachito Aiken D.O.; Physician,Non-Staff M.DWalker The [place] [id number] Patient Name: LUCILA JACQUES MRN: [id number] date: 1990 Sex: F Assigned Patient Location: [facility] Current Patient Location: Accession/Order Number: [id number] Exam Date: 12/02/2024 13:46 Report Date: 12/02/2024 13:48 At the request of: CATRACHITO AIKEN DO Procedure: US OB BPP w non-stress BIOPHYSICAL PROFILE: CLINICAL INFORMATION: with IUD in place COMPARISON: 11/28/2024 A single live intrauterine gestation is present in cephalic presentation. The reported gestational age is 34 weeks 1 day. The heart rate [id number] beats per minute. FINDINGS: TONE: 1 or [...] Vikki Rivers M.D.12/02/2024 1:48 PM Dictation Location: [place] [address] Electronically authenticated by: [id number] Y Date: 12/02/2024 13:48 Dictated By: Vikki Rivers M.D. Signed By: 12/02/24 1351 DD/ 1348 TD/TT: Forestry Aid: [facility] Radiology, Radiologi MD kevin - 12/02/2024 [place] [address] Ultrasound Report Signed Patient: LUCILA JACQUES MR#: [id number] : 1990 Acct:[id number] Age/Sex: 34 / F ADM Date: 12/02/24 Loc: US Attending Dr: Catrachito Aiken D.O. Ordering Physician: Catrachito Aiken D.O. Date of Service: 12/02/24 Procedure(s): US OB BPP w non-stress Accession Number(s): [id number] cc: Catrachito Aiken D.O.; Physician,Non-Staff Farhat The [address] [address] Patient Name: LUCILA JACQUES MRN: [facility]:[id number] date: 1990 Sex: F Assigned Patient Location: [facility] Current Patient Location: Accession/Order Number: [id number] Exam Date: 12/02/2024 13:46 Report Date: 12/02/2024 13:48 At the request of: CATRACHITO AIKEN DO Procedure: US OB BPP w non-stress BIOPHYSICAL PROFILE: CLINICAL INFORMATION: with IUD in place COMPARISON: 11/28/2024 A single live intrauterine gestation is present in cephalic presentation. The reported gestational age is 34 weeks 1 day. The heart rate beats per minute. FINDINGS: TONE: 1 or [...] Vikki Rivers M.D.12/02/2024 1:48 PM Dictation Location: [place] [address] Electronically authenticated by: [id number] Y Date: 12/02/2024 13:48 Dictated By: Vikki Rivers M.D. Signed By: 12/02/24 1351 DD/ 1348 TD/TT: Forestry Aid: [facility] Radiology Study observation (narrative) [facility] US OB BPP W NON-STRESS Ordered By: Radiologist Radiology on 12-02-2024 [facility] Work Phone: AMNISUREon 11-25-2024 [facility] AMNISURE Negative NEGATIVE [facility] US OB BPP W NON-STRESS on 11-25-[address] [address] Ultrasound Report Signed Patient: LUCILA JACQUES MR#: [id number] : 1990 Acct:[id number] Age/Sex: 34 / F ADM Date: 11/25/24 Loc: US Attending Dr: Catrachito Aiken D.O. Ordering Physician: Catrachito Aiken D.O. Date of Service: 11/25/24 Procedure(s): US OB BPP w non-stress Accession Number(s): [id number] cc: Catrachito Aiken D.O.; Physician,Non-Staff Farhat [facility] [place] [id number] Patient Name: LUCILA JACQUES MRN: [facility]:[id number] date: 1990 Sex: F Assigned Patient Location: [facility] Current Patient Location: [facility] Accession/Order Number: [id number] Exam Date: 11/25/2024 16:14 Report Date: 11/25/2024 16:15 At the request of: CATRACHITO AIKEN DO Procedure: US OB BPP w non-stress Biophysical profile. Reason for exam: IUD in place with current . COMPARISON: BPP 11/21/2024. TECHNIQUE: Transabdominal imaging of the gravid uterus was obtained. FINDINGS: The project program manager reports a BPP of 8 out of 8. ISAIAH 6.7 cm heart rate 140 bpm. US/US OB BPP w non-stress IMPRESSION: BPP 8 out of 8. Impression dictated by: Haile Palacio Jr., D.O.11/25/2024 4:15 PM Dictation Location: [place] [address] Electronically authenticated by: [id number] Y Date: 11/25/2024 16:15 Dictated By: Haile Palacio M.D. Signed By: 11/25/24 1618 DD/ 14 TD/TT: Forestry Aid: [facility] RadiologyIsidraogrodriguez brown MD - 11/25/2024 [place] [address] Ultrasound Report Signed Patient: LUCILA JACQUES MR#: [id number] : 1990 Acct:[id number] Age/Sex: 34 / F ADM Date: 11/25/24 Loc: US Attending Dr: Catrachito Aiken D.O. Ordering Physician: Catrachito Aiken D.O. Date of Service: 11/25/24 Procedure(s): US OB BPP w non-stress Accession Number(s): [id number] cc: Catrachito Aiken D.O.; Physician,Non-Staff [place] [address] Patient Name: LUCILA JACQUES MRN: [facility]:[id number] date: 1990 Sex: F Assigned Patient Location: [facility] Current Patient Location: [facility] Accession/Order Number: [id number] Exam Date: 11/25/2024 16:14 Report Date: 11/25/2024 16:15 At the request of: CATRACHITO AIKEN DO Procedure: US OB BPP w non-stress Biophysical profile. Reason for exam: IUD in place with current . COMPARISON: BPP 11/21/2024. TECHNIQUE: Transabdominal imaging of the gravid uterus was obtained. FINDINGS: The project program manager reports a BPP of 8 out of 8. ISAIAH 6.7 cm heart rate 140 bpm. US/US OB BPP w non-stress IMPRESSION: BPP 8 out of 8. Impression dictated by: Haile Palacio Jr., D.O.11/25/2024 4:15 PM Dictation Location: [place] [address] Electronically authenticated by: [id number] Y Date: 11/25/2024 16:15 Dictated By: Haile Palacio M.D. Signed By: 11/25/248 DD/ 14 TD/TT: Forestry Aid: [facility] Radiology Study observation (narrative) [facility] US OB BPP W NON-STRESS Ordered By: Radiologist Radiology on 11-25-2024 [facility] Work Phone: AMNISUREon 11-21-2024 [facility] AMNISURE Negative NEGATIVE [facility] No Panel InformationOrdered By: Radiologist Radiology on 11-21-2024 [facility] Work Phone: No Panel Informationon 11-21 Radiology Study observation (narrative) [facility] US OB BPP W NON-STRESS on 11-21-2024 [place] [address] Ultrasound Report Signed Patient: LUCILA JACQUES MR#: [id number] : 1990 Acct:[id number] Age/Sex: 34 / F ADM Date: Loc: [facility] 250-[address]: Catrachito Aiken D.O. Ordering Physician: Catrachito Aiken D.O. Date of Service: 11/21/24 Procedure(s): US OB BPP w non-stress Accession Number(s): [id number] cc: Catrachito Aiken D.O.; Physician,Non-Staff MChristie [facility] [place] [address] Patient Name: LUCILA JACQUES MRN: [id number] date: 1990 Sex: F Assigned Patient Location: [facility] Current Patient Location: Accession/Order Number: [id number] Exam Date: 11/21/2024 18:27 Report Date: 11/21/2024 [...] Ruddy Esquivel M.D.11/21/2024 6:32 PM Dictation Location: [place] [address] Electronically authenticated by: [id number] Y Date: 11/21/2024 18:32 Dictated By: Ruddy Esquivel M.D. Signed By: 11/21/241834 DD/ 31 TD/TT: Forestry Aid: [facility] Radiology, Radiologi MD kevin - 11/21/2024 [place] [address] Ultrasound Report Signed Patient: LUCILA JACQUES MR#: [id number] : 1990 Acct:[id number] Age/Sex: 34 / F ADM Date: Loc: [facility] [address]: Catrachito Aiken D.O. Ordering Physician: Catrachito Aiken D.O. Date of Service: 11/21/24 Procedure(s): US OB BPP w non-stress Accession Number(s): [id number] cc: Catrachito Aiken D.O.; Physician,Non-Staff Farhat [facility] [place] [id number] Patient Name: LUCILA JACQUES MRN: [facility]:[id number] date: 1990 Sex: F Assigned Patient Location: [facility] Current Patient Location: Accession/Order Number: [id number] Exam Date: 11/21/2024 18:27 Report Date: 11/21/2024 [...] Ruddy Esquivel M.D.11/21/2024 6:32 PM Dictation Location: [place] [address] Electronically authenticated by: [id number] Y Date: 11/21/2024 18:32 Dictated By: Ruddy Esquivel M.D. Signed By: 11/21/241834 DD/ 31 TD/TT: Forestry Aid: [employer] OB GROWTHon 11-21-2024 [place] [address] Ultrasound Report Signed Patient: LUCILA JACQUES MR#: [id number] : 1990 Acct:[id number] Age/Sex: 34 / F ADM Date: Loc: [facility] [address]: Catrachito Aiken D.O. Ordering Physician: Catrachito Aiken D.O. Date of Service: 11/21/24 Procedure(s): US OB growth Accession Number(s): [id number] cc: Catrachito Akien D.O.; Physician,Non-Staff Farhat [facility] [place] [id number] Patient Name: LUCILA JACQUES MRN: [id number] date: 1990 Sex: F Assigned Patient Location: [facility] Current Patient Location: Accession/Order Number: [id number] Exam Date: 11/21/2024 18:27 Report Date: 11/21/2024 [...] Ruddy Esquivel M.D.11/21/2024 6:32 PM Dictation Location: [place] [address] Electronically authenticated by: [id number] Y Date: 11/21/2024 18:32 Dictated By: Ruddy Esquivel M.D. Signed By: 11/21/241834 DD/ 31 TD/TT: Forestry Aid: [facility] Radiology, Radiologi MD kevin - 11/21/2024 [place] [address] Ultrasound Report Signed Patient: LUCILA JACQUES MR#: [id number] : 1990 Acct:[id number] Age/Sex: 34 / F ADM Date: Loc: [facility] 250-[address]: Catrachito Aiken D.O. Ordering Physician: Catrachito Aiken D.O. Date of Service: 11/21/24 Procedure(s): US OB growth Accession Number(s): [id number] cc: Catrachito Aiken D.O.; Physician,Non-Staff Farhat [facility] [place] [address] Patient Name: LUCILA JACQUES MRN: [id number] date: 1990 Sex: F Assigned Patient Location: [facility] Current Patient Location: Accession/Order Number: [id number] Exam Date: 11/21/2024 18:27 Report Date: 11/21/2024 [...] Ruddy Esquivel M.D.11/21/2024 6:32 PM Dictation Location: [place] [address] Electronically authenticated by: [id number] Y Date: 11/21/2024 18:32 Dictated By: Ruddy Esquivel M.D. Signed By: 11/21/241834 DD/ 31 TD/TT: Forestry Aid: [facility] Urinalysis macro (dipstick) panel (U)on 11-21-2024 Bilirubin, UA Positive Negative - 4(70) +++ mg/dL [facility] Comment on above: small Blood, UA Negative Negative - 50 Asif/mcL [facility] Clarity, UA Clear [facility] Color, UA Bibiana [facility] Glucose, UA Negative Negative - 1999(110) ++++ mg/dL [facility] Interpretation and review of laboratory results Abnormal [facility] Ketones, UA Positive Negative - 160(16) ++++ mg/dL [facility] Comment on above: trace Leukocytes, UA Negative Negative - 500+++ Shivani/mcL [facility] Nitrite, UA Negative Negative - Positive [facility] pH, UA 5.5 5 - 9 [facility] Protein, UA Positive Negative - 1999(20) ++++ mg/dL [facility] Comment on above: 30 Spec Grav, UA 1.03 1 - 1.03 [facility] Urobilinogen, UA 1.0 0.2 - 12 mg/dL [facility] Coding Summaryon 11-11-2024 Coding Summary HTMLBase 64 TfvkuaywHKt9hXn+PGhlYWQ+PE1 TBSLdY16paVSerA6wA5LICHhZLr tcUTHMFQuDXmQedjYgFZ9ihUEzH XJu IC8+HZ7rPVByRugzjCMps6W5cPD 2S74ccq8qMMfqyBQ4IYBcZqYivj nnj6tryHo3ADnlKqyhNoQm DNXzxL54EMM3vZ17Sj27dYFrbSR sh9yntMp8HdJyVVTnPSV0zLnmOW xjd1CgVMBeM27kbOTam8D4 BPItsLfxzEWkIdQokHB5fZ5pVZp mdches5wytgtiVyb8dy45iPMsw1 U6xIC9U9JjggO9NNJlcGLx ZcpjsGQMlB6clzghh5xcjmvaQzB kFIIsBBz3SAs7LLAwnWifUkGvIC 44TET6DNMbjtUxO6FrJMVu tLdsQlU0b7T3Nu1QH7CKIhqcZ6G NTUFSWTwvdGQ+CF51ml02R8YwCw xrKoz5BRBhORP2rTT4pU8j FKUcUQnsh9W1kEY9Y1PaqlLttk9 ko0xlGKUsZYxtK08plQBpb7Q2CF GgyLH6EAJyfQiwWtYtiI74 Oyc+IYHwzSqgl4KeViivj1xbb4d exQj8IxxjJOWuqpWjgEkaYWC1z4 OvFn8oUIHudUX1eEY4bT8z VeGnJsU9JQwrF153CrXakFGsGrz oI22oC5RpwRP+OBXiUdq3VTKvuG cuUL7pD7EuBDYgovhxmEPj kUqdHF3nUWZlqwebRXFybP8nCOT lL8t4SiCqWiJ5YEeuG4NoHCOteu clCs69wQ0xYqItIbR8USzw A4FlmuN3LVNlfYKpGZrjVPL4H72 zd4Q9DUKjRPZvCDE4jSZ1jI1nwT lnbjogbGVmdDsgdmVydGlj RZqqGCmaD253IFCujIahSbMdSNg uZyBEYXRlOiAgMDIvMTcvMjAyNT wvdGQ+HJQxZLD6kMlcJKPw sKMvELziSz0tbDyqvYjtXK8iIBY hdfnsJYTkrR8tDOGmsIRktXduSF 2uWDUgbfmgf733SwGeRPT8 QJMsmXZcJ2ItdH1yUqVvMTPwJLM eC3OhzXIuQMgpY127VJvjEyB2PN PkfnRhO8DeJEWkmYcjXnG5 k4R3Ye2Il6IpnackO9QpaPSvBbV zShojPMe9X8KbOnudsXM+PC90YW MgBB26MMh8YSY1gEakBXje BJSvJ1WoaA3qYqUeTLPbNHSbVbo +PHRhYmxlIHdpZHRoPScxMDAlJy GlwIsrDX5eZw4nIVFvUGHl tKmmmGIqAqFct4zzMIImJBjkBG3 knKpfT7EheTI6UQQqs0g0Bn89G6 6bZ7DatFB+JGIdqRA5vWD7 jP0mEaAiMvG7FXxeT969GgIbaKL sHrixb8uir4yimVn0TqW8FWWjqx FzsUzaMGS8m7KhQc62E29x IHdpZHRoPSIxNSUiIHZhbGlnbj0 ekW6vTv8+FILztHB1vVJ4eK6vTh KlQmZ5IVvcC176QpLeiMYf Jgghc0yki3uawIk3DvTaGMCplvS ztIitXBU3d6GsHr82M6NwuKmqk0 NgUgf8ug68kVMab7U4bON0 A6NnJDMktpmgxKFkjAkwXJ1xKGE whzhnLZPvrR5hDSSyE4a3IeTvUm L4OPzgZ6UhonM0IEIrgRDq TNHtiKLIwX1nonfua0jpoyiwXcA oOLIiTVs9WTw5ZSLmjXwpHpIpXU I1NjM7WHW5uNNmsW5dvWfn ycmglS4fLfs+BJN3bQPxtGQAZP8 lOjwvdGQ+AJQbIVI0mLtaGArnPI TysD7mGERsY2o9YqJvBuY6 KMkiQ7StzcL9QQUnxAJgMSWzxEY HbH9vaapgg6hpqbbpPjUhHXRqUU y0JWf3QHGjwKzsWiYzCDE9 JdW0VJG7cTVzvF1kdYwtakyvoD1 wOyc+SistuVncVRC8KOs5Y1LgMs p7AVWqzUucTE0dmIYmXSyg Op2ckHaajLkxRF9lKAFolcgtr88 8JtOrh5ucBCYahKReIBfgURR5W9 9ar8E6NGYcPDKmURM2tST6 rL9ckWotkrkncUBinSnxqkNfwEi dBJxtSRuvO083HPUvbZmqIrBdOF j1T0KkAyo4RQYpqBdtTK6j pGPqFCaiYs9bsVzppBesMW1kJFL lyguhk305VqGhi0qpARWytAXrQJ gwSXI9R50wy0B3DCJlAQSl TCJ4hPX7fZ6yyCxyzedjvIXqnYt zarMuwOznYDggZXtaZ627OZOhlJ epUkDzvMa3Z5VeQzh3OPXu mWvfLM5vbIPeRHcvMg8biYjkfLm oYJ2lFFGozadaj723KyRar3nuTR UqlZIhBCogEPP3Q02qk6R0 JURkNJIsNRO6jVW8rX8tyFzjscp gbGVmdDsgdmVydGljYWwtYWxpZ2 46IHRvcDsnPlBhdGllbnQg AAnpVEn3D2SwUsxxgAX+LJ10SPC vMW25tKXknZRbs2grjFm8NkOcTB RlWXZ6yDeeRKlgl4MkGGHs J82tzLDoz4H0GELjdMnqiIXdDdZ kfKN6yV9qUUnbgvkqb7yjhxvsOc qpj0xucz15pH47O42hZKwn USQjAWQiTUSrZTCesXdxqb3isZ8 wIi8+SHQbqEO0yLM3oU3hGWEjVw Z1JVmnP312UnTyjFUjUhnz j3yuf6qsqPg8KuH5KFBwiuZbdCq uZLZ0b7ViOz64D84vMIudHXLcQI MnUXUlWVDudQsugb2tdQ0x Ii8+XDZtbLL0vDL4cV1hLzNjIcO 6RVdmR225FtYvwRNtZxcrQ25kX7 JvdXA+DAJaZbv4QDSqkKwn EU9ptWViBRpuVl5eLYG8YfYwGnG bTPzrT9LpNSTpjsshyeowuQV6VO ShLTNvcW04Ka6dgByoVGUu jNCZhX5zmtwut5mwwbwdOyXxEWI wKEu7AIe9DQNgmPlbGjEhAWI5Zq V7SRF4oLRewU6hhIkdkies hD5iI0YyLVTfvennTa08aZ2ePgR lCxN2ULfrDjo+VfQPJdewZ8JQGR xFGnCLBFG2K6FcGhg8ZAFd vUgcLE6osCJwZRvdRn7hjObepOs zTR1oCUAprontUDHpnZ1cZKPjnF HpfExiRD2pEEKsurdtr752 SsMfBER6DLAfdIMwV7XdqL7yDqY iHOYhEYPnU2FsvQLfILnkA897RH utBrN3BVZrfkRfB3WbTVEo wBiwLmV3q6F3Qm8dME8hBa3dSCj 1RI02AR81oAOmc0D5mCD7M9HjLC PwekvsvwzuhIN2WBKoQIBx kD66gNGcIPidEj2zl3L4g972NWL rHSHtuH03Ig2ufCziMYTvzBGAiU 6pmatub9fydflkYeSiFQOn DBj6BCf1BAEvuWfeLdIsCEQ6QfZ 3LPT5rATogU4amRixtnfybL1oCp c+ZeCvORGbmcX8I4WtJko8 BJCtgWwcRV5owFZxIUaiSp6wrVv osOfcCA0cVXKnstgjANRzfE2ySD JixUXauZrkIL1cQXYmnpox v630EpHbBXQ2FYVbjAIcW5HkhB6 eXqZeVJQsJHHiW3IdeNWnTQywE2 99TRxfOfL5FGXgsxNwN8My YOBhdGrmCuH1y7X8Rr6WHP9PGMT 5A5EzApw7EJAtbMrcHR7ztMXkFU paMj4fnXvisBjnXG0pLWPa kcrxEWAskM9vMWDrxXUvvVjyJL3 fEVUyfkgoo396GoDuNMY4BIEswB ReZ3LcyG1xLaZoBFOdPWNw T7PiwTFfLWpqN985TBrmCtQ8PEA gkmRfB0MlEDKduVcxWgX9l4I1Du 5PUDwvdGQ+DJ34qw12F0Al GwgoOgv0YHJpVQQ5iQK3yO1sEGF jHQqub0R2mMA0T7PvnsKzvs2jc9 adUOZuLFoyD74npDFbq8E2 WKDdtXF7QTVhyYugGwZusE95Gdw +TAOvhOorw7IpJjeaq3cla2pokS g7ZhChZUEosgHmtNeeOVM3 v3GpTi17P34bYJtoDHLdVLMmROQ mTTXewAqgak5wfA8uDd9+PGNvbC C0aAN9cQ0vEtUmGjY8HAgl W641UmOdhUCeCjvby7vqp0xigAb 7WfYyQZJrgzGqxGddGPI8s0SoLo 21Y0MmgGcsx6YlPll6wi59 bNSmx9V6hWD1X5IeUKVuuxrqkNQ evGzvII6cNWIxuytcLZSssN8zXM UwH9x9ItDwWsM5RVbvV7Xm euU5YMTyfBNxOPPmuFRGgU8kvfe kp0ddepdwBvXzXLZqSEe9WRs0LJ AvaXdcCcCcINE1UfU1XCV8 kCMjdW6opNzgyhydjQ4vWhd+UGh 3t3hbhWRlTN6eiCV5AY62SU08dA Zlp5M6rXD1N7KoINEfszzj lmanaGF9ORPzTRIvkB80Or7xgZp cPw0eATVtPNB8OFJabDQyC7IlbS 7vWmHrIBQnBCClB7EzgJOv LRpuH483TZjoOoJ5SWMkkgDiI3F aVFQsdHfsCbT4f3X8Zg5WAG84MY 23WY43cDSfc2P6dVA8H1Jx EVApsyxghqmdhQT0PIOmSWKniA7 4Ch2tbPpkTa0mCQSsHRQ5PTSbsT FlN3MsrL8aJdJwLTAsHUOk H6KaqKMeIBsuV247CYzeAfY1XSF gzfIwB0DgOAScvXinZtF4y8Q3Zw 5BOm73KQ62RX77qOOra2N0 fAT6E3IyFIXdovcbdrivwSV7IFO bADTciH92Wb7hnVtfGi3zEMGcDF J8DHYltQGzE0IgwC7sGgWs XPNrINIkR5PcsZTvKXqjQ268OAd vJfA9BPJodoUeX4RgQWImgEgcTx X0o9H0Gk2YXBjnmvs7P6Fh PjwvdHI+VO54DZFyEE05sAIxjFR nb9udkAs0JuLmMXFvLSV9zUmcJT [id number] IGN (more content not included)... Normal [facility] Urinalysis macro (dipstick) panel (U)on 11-07-2024 Bilirubin, UA Positive Negative - 4(70) +++ mg/dL [facility] Comment on above: small Blood, UA Negative Negative - 50 Asif/mcL [facility] Clarity, UA Clear [facility] Color, UA Yellow [facility] Glucose, UA Negative Negative - 1999(110) ++++ mg/dL [facility] Interpretation and review of laboratory results Abnormal [facility] Ketones, UA Positive Negative - 160(16) ++++ mg/dL [facility] Comment on above: 40mg/dL Leukocytes, UA Negative Negative - 500+++ Shivani/mcL [facility] Nitrite, UA Negative Negative - Positive [facility] pH, UA 6 5 - 9 [facility] Protein, UA Positive Negative - 1999(20) ++++ mg/dL [facility] Comment on above: 30mg/dL Spec Grav, UA 1.025 1 - 1.03 [facility] Urobilinogen, UA 1.0 0.2 - 12 mg/dL [facility] ALL CBC WITH AUTO DIFFon BASOPHILS ABSOLUTE AUTO 0 [facility] Basophils/100 WBC (Bld) 0.3 % 0.2 - 2.0 % [facility] Eosinophils/100 WBC (Bld) 1.6 % 0.9 - 7.0 % [facility] Erythrocyte distribution width (RBC) [Ratio] 12.8 % 11.0 - 15.0 % [facility] Hematocrit (Bld) [Volume fraction] 33.8 % Low 36.0 - 48.0 % [facility] Hemoglobin (Bld) [Mass/Vol] 11.4 g/dL Low 12.0 - 16.0 g/dL [facility] IMMATURE GRANULOCYTES ABS AUTO 0.[address] [facility] Immature granulocytes/100 WBC (Bld) 0.5 % 0.0 - 0.5 % [facility] Interpretation and review of laboratory results Abnormal [facility] LYMPHOCYTES ABSOLUTE AUTO 1.9 [facility] Lymphocytes/100 WBC (Bld) 18.6 % Low 20.5 - 60.0 % [facility] MCH (RBC) [Entitic mass] 29.8 pg 26.7 - 34.[address] [facility] MCHC (RBC) [Mass/Vol] 33.7 g/dL 29.9 - 35.2 g/dL [facility] MCV (RBC) [Entitic vol] 88.5 fL 81.0 - 99.[address] [facility] MONOCYTES ABSOLUTE AUTO 0.[address] [facility] Monocytes/100 WBC (Bld) 8.6 % 1.7 - 12.0 % [facility] NEUTROPHILS ABSOLUTE AUTO 7.[address] [facility] [facility] Neut[facility]ils/100 WBC (Bld) 70.4 % 43.0 - 75.0 % [facility] Platelet mean volume (Bld) [Entitic vol] 8.9 fL Low 9.5 - 13.[address] [facility] TBH EO # 0.2 [facility] TB PLT 228 [facility] TB RBC 3.[address] [facility] TB WBC 10.4 [facility] Urinalysis macro (dipstick) panel (U)on 10-01-2024 Bilirubin, UA Negative Negative - 4(70) +++ mg/dL [facility] Blood, UA Negative Negative - 50 Asif/mcL [facility] Clarity, UA Clear [facility] Color, UA Yellow [facility] Glucose, UA Negative Negative - 1999(110) ++++ mg/dL [facility] Interpretation and review of laboratory results Abnormal [facility] Ketones, UA Positive Negative - 160(16) ++++ mg/dL [facility] Leukocytes, UA Negative Negative - 500+++ Shivani/mcL [facility] Nitrite, UA Negative Negative - Positive [facility] pH, UA 6.5 5 - 9 [facility] Protein, UA Negative Negative - 1999(20) ++++ mg/dL [facility] Spec Grav, UA 1.025 1 - 1.03 [facility] Urobilinogen, UA 1.0 0.2 - 12 mg/dL [facility] AFP, SERUM, OPEN SPINA BIFID Aon 08-14-[address] [facility] AFP VALUE 43.5 ng/mL . [facility] COMMENT: Comment . [facility] Comment on above: Irena Jones , Ph.D., [facility] Director References: Available Upon Request. Multiples Of Median Cutoffs For AFP Elevations Vela 2.5 Black 2.8 IDD 2.0 Twins 4.5 Abbreviation Definitions IDD - Insulin Dep Diabetes OSBR - Open Spina Bifida Risk For further inquiries contact [facility] at [phone]. This test was developed and its performance characteristics determined by [employer]. It has not been cleared or approved by the Food and Drug Administration. Performed at: [facility] [address] [place], [place] [id number] Wireless Cellular Technician: Hellen Hinson [facility], Phone: [phone] GEST. AGE ON COLLECTION DATE 16.[address] [facility] GESTAT. AGE BASED ON Ultrasound . [facility] Comment on above: 18.1 on 08/12/2024 Recalculations are not recommended when gestational dating by LMP and ultrasound are within 10 days. INSULIN DEP DIABETES No . [facility] INTERPRETATION Comment . [facility] Comment on above: Interpretation: Scre en [...] Customer Services to discuss available options. The [employer] recommends amniocentesis be offered to women age 35 and older. [age]ERNAL AGE AT EMMY 34.[address] [facility] MULTIPLE GESTATION No . [facility] OSBR RISK [address] [place] [address] [facility] RACE . [facility] RESULTS Report . [facility] TEST RESULTS: Negative . [facility] WEIGHT [address] [facility] N N ULTRASOUND [id number] 1 18 N 1 Y 239 N N N N N White/ [facility]INISY[facility] Urinalysis macro (dipstick) panel (U)on 08-12-2024 Bilirubin, UA Negative Negative - 4(70) +++ mg/dL [facility] Blood, UA Negative Negative - 50 Asif/mcL [facility] Clarity, UA Clear [facility] Color, UA Yellow [facility] Glucose, UA Negative Negative - 2000(110) ++++ mg/dL [facility] Interpretation and review of laboratory results Abnormal [facility] Ketones, UA Positive Negative - 160(16) ++++ mg/dL [facility] Comment on above: trace Leukocytes, UA Negative Negative - 500+++ Shivani/mcL [facility] Nitrite, UA Negative Negative - Positive [facility] pH, UA 6 5 - 9 [facility] Protein, UA Negative Negative - 2000(20) ++++ mg/dL [facility] Spec Grav, UA 1.015 1 - 1.03 [facility] Urobilinogen, UA 0.2 0.2 - 12 mg/dL [facility] Urinalysis macro (dipstick) panel (U)on 07-16-2024 Bilirubin, UA Negative Negative - 4(70) +++ mg/dL [facility] Blood, UA Negative Negative - 50 Asif/mcL [facility] Clarity, UA Clear [facility] Color, UA Yellow [facility] Glucose, UA Negative Negative - 2000(110) ++++ mg/dL [facility] Interpretation and review of laboratory results Normal [facility] Ketones, UA Negative Negative - 160(16) ++++ mg/dL [facility] Leukocytes, UA Negative Negative - 500+++ Shivani/mcL [facility] Nitrite, UA Negative Negative - Positive [facility] pH, UA 5.5 5 - 9 [facility] Protein, UA Negative Negative - 2000(20) ++++ mg/dL [facility] Spec Grav, UA 1.03 1 - 1.03 [facility] Urobilinogen, UA 0.2 0.2 - 12 mg/dL [facility] BLOOD UREA NITROGENon 2023 Urea nitrogen [Mass/Vol] 9 mg/dL Normal 5-23 [facility] Comment on above: Performed By: #### Joao CARABALLO, 3094-0, ELECTRICAL APPLIANCE REPAIRER, LIVR, 5193-8 #### [facility] ([id number]) [address], [address] [place] [address] CBC AND AUTO DIFFon 07-10-20 ABSOLUTE BASOPHIL 0.0 X10E9/L Normal 0.0-0.2 [facility] Comment on above: Performed By: #### Joao CARABALLO, 3094-0, ELECTRICAL APPLIANCE REPAIRER, LIVR, 5193-8 #### [facility] ([id number]) [address], [address] [place] [address] ABSOLUTE NEUTROPHIL 5.1 X10E9/L Normal 1.5-6.6 [facility] Comment on above: Performed By: #### Joao CARABALLO, 3094-0, ELECTRICAL APPLIANCE REPAIRER, LIVR, 5193-8 #### [facility] ([id number]) [address], [address] [place] [address] Basophils/100 WBC (Bld) 0.6 % Normal [facility] Comment on above: Performed By: #### Joao BCA, 3094-0, ELECTRICAL APPLIANCE REPAIRER, LIVR, 5193-8 #### [facility] ([id number]) [address], [address] [place] [address] Eosinophils (Bld) [#/Vol] 0.1 10*3/uL Normal 0.0-0.4 [facility] Comment on above: Performed By: #### C BCA, 3094-0, ELECTRICAL APPLIANCE REPAIRER, LIVR, 5193-8 #### [facility] ([id number]) [address] [facility] [facility] [address] [place] [address] Eosinophils/100 WBC (Bld) 1.6 % Normal [facility] Comment on above: Performed By: #### C BCA, 3094-0, ELECTRICAL APPLIANCE REPAIRER, LIVR, 519-8 #### [facility] ([id number]) [address] [place] [address] Erythrocyte distribution width (RBC) [Ratio] 13.1 % Normal 11.5-15.0 [facility] Comment on above: Performed By: #### C BCA, 3094-0, ELECTRICAL APPLIANCE REPAIRER, LIVR, 519-8 #### [facility] ([id number]) [address] [place] [address] Hematocrit (Bld) [Volume fraction] 39.1 % Normal 35-47 [facility] Comment on above: Performed By: #### C BCA, 3094-0, ELECTRICAL APPLIANCE REPAIRER, LIVR, 519-8 #### [facility] ([id number]) [address] [place] [address] Hemoglobin (Bld) [Mass/Vol] 13.4 g/dL Normal 11.7-15.5 [facility] Comment on above: Performed By: #### C BCA, 3094-0, ELECTRICAL APPLIANCE REPAIRER, LIVR, 5193-8 #### [facility] ([id number]) [address] [place] [address] Lymphocytes (Bld) [#/Vol] 1.3 10*3/uL Normal 1.0-3.5 [facility] Comment on above: Performed By: #### C BCA, 3094-0, ELECTRICAL APPLIANCE REPAIRER, LIVR, 5193-8 #### [facility] ([id number]) [address], [address] [place] [address] Lymphocytes/100 WBC (Bld) 19.0 % Normal [facility] Comment on above: Performed By: #### C BCA, 3094-0, ELECTRICAL APPLIANCE REPAIRER, LIVR, 8 #### [facility] ([id number]) [address], [address] [place] [address] MCH (RBC) [Entitic mass] 30.6 pg Normal 27-34 [facility] Comment on above: Performed By: #### C BCA, 3094-0, ELECTRICAL APPLIANCE REPAIRER, LIVR, 8 #### [facility] ([id number]) [address], [address] [place] [address] MCHC (RBC) [Mass/Vol] 34.3 g/dL Normal 32-[address] [facility] Comment on above: Performed By: #### Joao BCA, 3094-0, ELECTRICAL APPLIANCE REPAIRER, LIVR, 8 #### [facility] ([id number]) [address], [address] [place] [address] MCV (RBC) [Entitic vol] 89 fL Normal 80-100 [facility] Comment on above: Performed By: #### Joao BCA, 3094-0, ELECTRICAL APPLIANCE REPAIRER, LIVR, 8 #### [facility] ([id number]) [address], [address] [place] [address] Monocytes (Bld) [#/Vol] 0.5 10*3/uL Normal 0-0.9 [facility] Comment on above: Performed By: #### Joao BCA, 3094-0, ELECTRICAL APPLIANCE REPAIRER, LIVR, 519-8 #### [facility] ([id number]) [address], [address] [place] [address] Monocytes/100 WBC (Bld) 6.7 % Normal [facility] Comment on above: Performed By: #### Joao BCA, 3094-0, ELECTRICAL APPLIANCE REPAIRER, LIVR, 5192-8 #### [facility] ([id number]) [address], [address] [place] [address] Neutrophils/100 WBC (Bld) 72.1 % Normal [facility] Comment on above: Performed By: #### C BCA, 3094-0, ELECTRICAL APPLIANCE REPAIRER, LIVR, 5193-8 #### [facility] ([id number]) [address], [address] [place] [address] Platelet mean volume (Bld) [Entitic vol] 7.9 fL Normal 7-12 [facility] Comment on above: Performed By: #### C BCA, 3094-0, ELECTRICAL APPLIANCE REPAIRER, LIVR, 5193-8 #### [facility] ([id number]) [address], [address] [place] [address] Platelets (Bld) [#/Vol] 232 10*3/uL Normal 150-450 [facility] Comment on above: Performed By: #### C BCA, 3094-0, ELECTRICAL APPLIANCE REPAIRER, LIVR, 5193-8 #### [facility] ([id number]) [address], [address] [place] [address] RBC COUNT 4.37 X10E12/L Normal 3.80-5.20 [facility] Comment on above: Performed By: #### C BCA, 3094-0, ELECTRICAL APPLIANCE REPAIRER, LIVR, 5193-8 #### [facility] ([id number]) [address], [address] [place] [address] WBC (Bld) [#/Vol] 7.0 10*3/uL Normal 4.0-11.0 [facility] Comment on above: Performed By: #### C BCA, 3094-0, ELECTRICAL APPLIANCE REPAIRER, LIVR, 5193-8 #### [facility] ([id number]) [address], [address] [place] [address] CREATININEon 07-10-2024 Creatinine [Mass/Vol] 0.54 mg/dL Normal 0.40-1.[address] [facility] Comment on above: Result Comment: METH OD TRACEABLE TO IDMS STANDARD Performed By: #### C BCA, 3094-0, ELECTRICAL APPLIANCE REPAIRER, LIVR, 5193-8 #### [facility] ([id number]) [address], [address] [address] eGFR (CKD-EPI) NON-RACE DEPENDENT >90 Normal >59 [facility] Comment on above: Result Comment: Reported eGFR is based on the CKD-EPI 2020 equation that does not use a race coefficient. Performed By: #### C BCA, 3094-0, ELECTRICAL APPLIANCE REPAIRER, LIVR, 5193-8 #### [facility] ([id number]) [address], [address] [address] HBV surface Ab IA Qnon 07-10 Anti HBs quant. <8.00 Normal [facility] Comment on above: Result Comment: Vacc inated: >=12mIU/mL, Positive (Immune) Unvaccinated: <8mIU/mL, Negative (Not Immune) 8-11.99 mIU/mL: Indeterminate, (Considered Not Immune) Performed By: #### C BCA, 3094-0, ELECTRICAL APPLIANCE REPAIRER, LIVR, 5193-8 #### [facility] ([id number]) [address] [address] LIVER PANELon 07-10-2024 Albumin [Mass/Vol] 3.8 g/dL Normal 3.2-5.3 [facility] Comment on above: Performed By: #### C BCA, 3094-0, ELECTRICAL APPLIANCE REPAIRER, LIVR, 5193-8 #### [facility] ([id number]) [address] [address] ALP [Catalytic activity/Vol] 44 U/L Normal 39-130 [facility] Comment on above: Performed By: #### C BCA, 3094-0, ELECTRICAL APPLIANCE REPAIRER, LIVR, 5193-8 #### [facility] ([id number]) [address], [address] [place] [address] ALT [Catalytic activity/Vol] 11 U/L Normal 0-31 [facility] Comment on above: Performed By: #### C BCA, 3094-0, ELECTRICAL APPLIANCE REPAIRER, LIVR, 5193-8 #### [facility] ([id number]) [address], [address] [place] [address] AST [Catalytic activity/Vol] 16 U/L Normal 0-41 [facility] Comment on above: Performed By: #### C BCA, 3094-0, ELECTRICAL APPLIANCE REPAIRER, LIVR, 5193-8 #### [facility] ([id number]) [address], [facility] [address] [place] [address] Bilirubin [Mass/Vol] 0.5 mg/dL Normal 0.3-1.2 [facility] Comment on above: Performed By: #### C BCA, 3094-0, ELECTRICAL APPLIANCE REPAIRER, LIVR, 5193-8 #### [facility] ([id number]) [address], [address] [place] [address] Bilirubin.direct [Mass/Vol] 0.1 mg/dL Normal 0.0-0.4 [facility] Comment on above: Performed By: #### C BCA, 3094-0, ELECTRICAL APPLIANCE REPAIRER, LIVR, 5193-8 #### [facility] ([id number]) [address], [facility] [address] [place] [address] Protein [Mass/Vol] 6.5 g/dL Normal 6.0-8.0 [facility] Comment on above: Performed By: #### C BCA, 3094-0, ELECTRICAL APPLIANCE REPAIRER, LIVR, 5193-8 #### [facility] ([id number]) [address], [facility] [address] [place] [address] Unlisted Lab TestOrdered By: Jaci Atwood on 06-26-2024 [facility] TBH TOTAL PROTEIN 24 HOUR UR INEon 06-21-2024 Protein (U) [Mass/Vol] 11.3 mg/dL NINF - 11.9 mg/dL [facility] TBH TOTAL PROTEIN 24 HOUR URINE 101[facility] TOTAL VOLUME 24 HOUR URINE 900 mL/24hr [facility] Urinalysis macro (dipstick) panel (U)on 06-19-2024 Bilirubin, UA Negative Negative - 4(70) +++ mg/dL [facility] Blood, UA Negative Negative - 50 Asif/mcL [facility] Clarity, UA Clear [facility] Color, UA Yellow [facility] Glucose, UA Negative Negative - 1999(110) ++++ mg/dL [facility] Interpretation and review of laboratory results Normal [facility] Ketones, UA Negative Negative - 160(16) ++++ mg/dL [facility] Leukocytes, UA Negative Negative - 500+++ Shivani/mcL [facility] Nitrite, UA Negative Negative - Positive [facility] pH, UA 5.5 5 - 9 [facility] Protein, UA Negative Negative - 1999(20) ++++ mg/dL [facility] Spec Grav, UA 1.020 1 - 1.03 [facility] Urobilinogen, UA 1.0 0.2 - 12 mg/dL [facility] ALL CBC WITH AUTO DIFFon BASOPHILS ABSOLUTE AUTO 0.0 [facility] Basophils/100 WBC (Bld) 0.4 % 0.2 - 2.0 % [facility] Eosinophils/100 WBC (Bld) 1.3 % 0.9 - 7.0 % [facility] Erythrocyte distribution width (RBC) [Ratio] 12.5 % 11.0 - 15.0 % [facility] Hematocrit (Bld) [Volume fraction] 36.9 % 36.0 - 48.0 % [facility] Hemoglobin (Bld) [Mass/Vol] 12.4 g/dL 12.0 - 16.0 g/dL [facility] IMMATURE GRANULOCYTES ABS AUTO 0.02 [facility] Immature granulocytes/100 WBC (Bld) 0.3 % 0.0 - 0.5 % [facility] Interpretation and review of laboratory results Abnormal [facility] LYMPHOCYTES ABSOLUTE AUTO 1.2 [facility] Lymphocytes/100 WBC (Bld) 17.0 % Low 20.5 - 60.0 % [facility] MCH (RBC) [Entitic mass] 29.9 pg 26.7 - 34.[address] [facility] MCHC (RBC) [Mass/Vol] 33.6 g/dL 29.9 - 35.2 g/dL [facility] MCV (RBC) [Entitic vol] 88.9 fL 81.0 - 99.[address] [facility] MONOCYTES ABSOLUTE AUTO 0.4 [facility] Monocytes/100 WBC (Bld) 6.0 % 1.7 - 12.0 % [facility] NEUTROPHILS ABSOLUTE AUTO 5.3 [facility] Neutrophils/100 WBC (Bld) 75.0 % 43.0 - 75.0 % [facility] Platelet mean volume (Bld) [Entitic vol] 10.0 fL 9.5 - 13.[address] [facility] TBH EO # 0.1 [facility] TBH PLT 173 [facility] TBH RBC 4.[address] [facility] TBH WBC 7.1 [facility] XR knee LT 3V - NOT FOR ER U Yuridia 06-11-2024 XR knee LT 3V - NOT FOR ER USE [facility] [address] [place] [address] XRay Report Signed Patient: Lucila Jacques MR#: [id number] 33 : 1990 Acct:[id number] Age/Sex: 33 / F ADM Date: 06/11/24 Loc: [facility] Room: Type: [facility] Attending Dr: Santa Estrada II, MD Copies [...] Vikki Rivers M.D.06/11/2024 2:26 PM Dictation Location: [place] [address] Transcribed By: [facility] 06/11/24 142 Dictated By: Vikki Rivers MD 06/11/241421 Signed By: 06/11/24 142 Normal [facility] HCG ( test) Ql (U)o [...] on 04-29-2024 Amphetamines Ql (U) Negative Negative [facility] Barbiturates [Presence] in U rine by Screen methodOrdered By: Yusef Curran on 04-29-2024 Barbiturates Screen Ql (U) Negative Negative [facility] Benzodiazepines Screen Ql (U )Ordered By: Yusef Curran on 04-29-2024 Benzodiazepines Ql (U) Negative Negative [facility] Benzoylecgonine [Presence] i n Urine by Screen methodOrdered By: Yusef Curran on 04-29-2024 Benzoylecgonine Screen Ql (U) Negative Negative [facility] Cannabinoids [Presence] in U rine by Screen methodOrdered By: Yusef Curran on 04-29-2024 Cannabinoids Screen Ql (U) Negative Negative [facility] Comment on above: These are unconfirme d results and should not be used for legal purposes. Drug Cut-Off Concentration: AMPH 1000 ng/mL SILVIA 200 ng/mL DARLYN 200 ng/mL COCM 300 ng/mL OP 300 ng/mL PCP 25 ng/mL THC 20 ng/mL Drug Screen,Urineon 04-29-20 24 Amphetamine Screen,Urine Negative Normal Negative [facility] Comment on above: Performed By: #### A 1C WTH eA, ALB, [id number], HGB #### [place] [address] [place] #### NICOTINE #### [facility] , Barbiturate Screen,Urine Negative Normal Negative [facility] Comment on above: Performed By: #### A 1C WTH eA, ALB, [id number], HGB #### [place] [address] [place] #### NICOTINE #### [facility] , Benzodiazepines Screen,Urine Negative Normal Negative [facility] Comment on above: Performed By: #### A 1C WTH eA, ALB, [id number], HGB #### [place] [address] [place] #### NICOTINE #### [facility] , Cannabinoid Screen,Urine Negative Normal Negative [facility] Comment on above: Result Comment: Thes e are unconfirmed results and should not be used for legal purposes. Drug Cut-Off Concentration: AMPH 1000 ng/mL SILVIA 200 ng/mL DARLYN 200 ng/mL COCM 300 ng/mL OP 300 ng/mL PCP 25 ng/mL THC 20 ng/mL PERFORMED BY: [place] [address] PATHOLOGIST BROADCAST NEWS PRODUCER GENO BENEDICT M.D. Performed By: #### A 1C WTH eA, ALB, [id number], HGB #### [address] #### NICOTINE #### [facility] , Cocaine Screen,Urine Negative Normal Negative [facility] Comment on above: Performed By: #### A 1C WTH eA, ALB, [id number], HGB #### [place] [address] [place] #### NICOTINE #### [facility] , Opiate Screen,Urine Negative Normal Negative [facility] Comment on above: Performed By: #### A 1C WTH eA, ALB, [id number], HGB #### [address] #### NICOTINE #### [facility] , Phencyclidine Screen,Urine Negative Normal Negative [facility] Comment on above: Performed By: #### A 1C WTH eA, ALB, [id number], HGB #### [address] #### NICOTINE #### [facility] , HCG ( test) IA.rapi d Ql (U)Ordered By: Yusef Curran on 04-29-2024 HCG ( test) Ql (U) Negative [facility] HCG,Urineon 04-29-2024 Beta HCG ( test) Ql (U) Negative Normal [facility] Comment on above: Result Comment: PERF ORMED BY: [place] [address] PATHOLOGIST BROADCAST NEWS PRODUCER GENO BENEDICT M.D. Performed By: #### U HCG #### [address] [place] 04-29-2024 L Specimen: [id number] Received: 04/29/24 Status: SOUT Req Num: [id number] Spec Type: Surgical Subm Dr: Santa Estrada MD Tissues: A Joint/Knee (LT KNEE) Procedures: HE, Gross/Micro L4, Decalcification Age/ Patient Sex Location Account Attending Physician Lucila Jacques R 33/F [place] [id number] Santa Estrada MD SPEC NUM: [id number] RECD: 04/29/24 STATUS: MICHAEL YOUNG NUM: [id number] NIELS: 04/29/24- SUBM DR: Santa Estrada MD ENTERED: 04/29/[address] [facility] [address]: SPEC TYPE: Surgical DEPT: S [...] examination, no sections are submitted. CPT Codes 03741 Specimen: [id number] Received: 04/29/24 Status: ANUPAMABrunilda Young Num: [id number] Spec Type: Surgical Subm Dr: Santa Estrada MD Tissues: A Joint/Knee (LT KNEE) Procedures: HE, Gross/Micro L4, Decalcification Patient: Lucila Jacques [id number] (Continued) Specimen: [id number] Received: 04/29/24 (Continued) Signed (signature on file) ChinNessa Trevizo MD 05/07/24 1703 Specimen: [id number] Received: 04/29/24 Status: MICHAEL Young Num: [id number] Spec Type: Surgical Subm Dr: Santa Estrada MD Tissues: A Joint/Knee (LT KNEE) Procedures: VIKASH Gross/Nithya L4, Decalcification Patient: Lucila Jacques [id number] (Continued) Specimen: [id number] Received: 04/29/24 (Continued) BONE AND TISSUE Specimen: [id number] Received: 04/29/24 Status: MICHAEL Young Num: [id number] Spec Type: Surgical Subm Dr: Santa Estrada MD Tissues: A Joint/Knee (LT KNEE) Procedures: VIKASH Gross/Nithya L4, Decalcification Patient: Lucila Jacques [id number] (Continued) Signed (signature on file) Jamia Trevizo MD 05/07/24 1703 Normal [facility] Opiates [Presence] in Urine by Screen methodOrdered By: Yusef Curran on 04-29-2024 Opiates Screen Ql (U) Negative Negative [facility] Phencyclidine Screen Ql (U)O rdered By: Yusef Curran on 04-29-2024 Phencyclidine Ql (U) Negative Negative [facility] XR knee LT 2Von 04-29-2024 XR knee LT 2V [facility] [place] [address] XRay Report Signed Patient: Lucila Jacques MR#: [id number] [birth year] : 1990 Acct:[id number] Age/Sex: 33 / F ADM Date: 04/29/24 Loc: [place] Room: Type: [facility] Attending Dr: Santa Estrada II, MD [...] Harmeet Lopez M.D.04/29/2024 2:44 PM Dictation Location: [place] [address] Transcribed By: [facility] 04/29/24 1444 Dictated By: Harmeet Lopez DO 04/29/24 144 Signed By: 04/29/24 144 Normal [facility] XR tibia fibula LT 2V*on XR tibia fibula LT 2V* [facility] [address] [place] [address] XRay Report Signed Patient: Lucila Jacques MR#: [id number] [birth year] : 1990 Acct:[id number] Age/Sex: 33 / F ADM Date: 04/19/24 Loc: [facility] Room: Type: [facility] Attending Dr: Santa Estrada II, MD Copies to: Santa Estrada MD Ordering Provider: Santa Estrada MD Date of Service: 04/19/24 XR/XR tibia fibula LT 2V*: M17.12 - Unilateral primary osteoarthritis, left knee ([id number]) XR/XR femur LT 2V*: M17.12 - Unilateral [...] Harmeet Lopez M.D.04/19/2024 9:52 AM Dictation Location: [place] [address] Transcribed By: [facility] 04/19/24 0952 Dictated By: Harmeet Lopez DO 04/19/24 0950 Signed By: 04/19/24 0952 Normal [facility] Cytology Cervical or vaginal smear or scraping studyon 04-16-2024 [facility] Automated basophil %Ordered By: Santa Estrada on 04-15-2024 Basophils/100 WBC (Bld) 0.7 % . [facility] Comment on above: Performed By: #### B MP, CBC #### [place] [address] [place] #### NICOTINE, FRUC #### [facility] , Automated basophil countOrde red By: Santa Estrada on 04-15-2024 Basophils (Bld) [#/Vol] 0.0 10*3/uL 0.0-0.2 [facility] Comment on above: Result Comment: PERF ORMED BY: [place] [address] PATHOLOGIST BROADCAST NEWS PRODUCER GENO BENEDICT M.D. Performed By: #### B MP, CBC #### [place] [address] [place] #### NICOTINE, FRUC #### [facility] , Automated blood monocyte cou ntOrdered By: Santa Estrada on 04-15-2024 Monocytes (Bld) [#/Vol] 0.3 10*3/uL 0.0-0.8 [facility] Comment on above: Performed By: #### B MP, CBC #### [place] [address] [place] #### NICOTINE, FRUC #### [facility] , Automated eosinophil %Ordere d By: Santa Estrada on 04-15-2024 Eosinophils/100 WBC (Bld) 3.0 % . [facility] Comment on above: Performed By: #### B MP, CBC #### [place] [address] [place] #### NICOTINE, FRUC #### [facility] , Automated eosinophil countOr dered By: Santa Estrada on 04-15-2024 Eosinophils (Bld) [#/Vol] 0.1 10*3/uL 0.0-0.45 [facility] Comment on above: Performed By: #### B MP, CBC #### [facility] [address] [place] [address] [place] #### NICOTINE, FRUC #### [facility] , Automated monocyte %Ordered By: Santa Estrada on 04-15-2024 Monocytes/100 WBC (Bld) 7.6 % . [facility] Comment on above: Performed By: #### B MP, CBC #### [place] [address] [place] #### NICOTINE, FRUC #### [facility] , Automated neutrophil %Ordere d By: Santa Estrada on 04-15-2024 Neutrophils/100 WBC (Bld) 55.1 % . [facility] Comment on above: Performed By: #### B MP, CBC #### [place] [address] [place] #### NICOTINE, FRUC #### [facility] , Basic Metabolic Panelon 03-26 GFR/1.73 sq M.predicted MDRD (S/P/Bld) [Vol rate/Area] mL/min/{1.73_m2} Normal [facility] Comment on above: Performed By: #### A 1C WTH eA, ALB, [id number], HGB #### [place] [address] [place] #### NICOTINE #### [facility] , Bilirubin Test strip Ql (U)O rdered By: Santa Estrada on 04-15-2024 Bilirubin Ql (U) Negative Negative [facility] Calcium [Mass/volume] in Ser um or PlasmaOrdered By: Santa Estrada on 04-15-2024 Calcium [Mass/Vol] 9.0 mg/dL 8.6-10.3 [facility] Comment on above: Result Comment: PERF ORMED BY: [place] [address] PATHOLOGIST BROADCAST NEWS PRODUCER GENO BENEDICT M.D. Performed By: #### A 1C WTH eA, ALB, [id number], HGB #### [place] [address] [place] #### NICOTINE #### [facility] , Carbon dioxide, total [Moles /volume] in Serum or PlasmaOrdered By: Santa Estrada on 04-15-2024 CO2 [Moles/Vol] 26.3 mmol/L 21.0-31.0 [facility] Comment on above: Performed By: #### A 1C WTH eA, ALB, [id number], HGB #### [address] #### NICOTINE #### [facility] , Chloride [Moles/volume] in S liam or PlasmaOrdered By: Santa Estrada on 04-15-2024 Chloride [Moles/Vol] 106 mmol/L 98-107 [facility] Comment on above: Performed By: #### A 1C WTH eA, ALB, [id number], HGB #### [address] #### NICOTINE #### [facility] , Color of Urine by AutoOrdere d By: Santa Estrada on 04-15-2024 Color (U) Yellow Yellow [facility] Comment on above: Order Comment: Name Collection Type:: Clean-Voided Midstream Performed By: #### U A #### [address] Complete Blood Count Auto Di ffon 04-15-2024 Mean Corpuscular HGB Conc 34.0 g/dL Normal 32.0-35.0 [facility] Comment on above: Performed By: #### B MP, CBC #### [place] [address] [place] #### NICOTINE, FRUC #### [facility] , NRBC% 0.1 /100{WBC} Normal 0-0.5 [facility] Comment on above: Performed By: #### B MP, CBC #### [place] [address] [place] #### NICOTINE, FRUC #### [facility] , Cotinine [Mass/volume] in Se rum or PlasmaOrdered By: Santa Estrada on 04-15-2024 Cotinine [Mass/Vol] <1.0 ng/mL . [facility] Comment on above: This test was develo ped and its performance characteristicsdetermined by [facility]. It has not been cleared orapproved by the Food and Drug Administration.Cotinine levels greater than 20.0 are consistent with theuse of tobacco or tobacco cessation products.Performed at: [facility] [address] [id number] Director: Marcellus Dave MD, Phone: [phone] Creatinine [Mass/volume] in Serum or PlasmaOrdered By: Santa Estrada on 04-15-2024 Creatinine [Mass/Vol] 0.65 mg/dL 0.60-1.20 [facility] Comment on above: Performed By: #### A 1C WTH eA, ALB, [id number], HGB #### [facility] [address] [place] [address] #### NICOTINE #### [facility] , Erythrocyte distribution wid th [Ratio] by Automated countOrdered By: Santa Estrada on 04-15-2024 Erythrocyte distribution width (RBC) [Ratio] 13.2 % 11.9-15.3 [facility] Comment on above: Performed By: #### B MP, CBC #### [facility] [address] [place] [address] #### NICOTINE, FRUC #### [facility] , Erythrocytes [#/volume] in B lood by Automated countOrdered By: Santa Estrada on 04-15-2024 RBC (Bld) [#/Vol] 4.52 10*6/uL 3.60-5.00 [facility] Comment on above: Performed By: #### B MP, CBC #### [facility] [address] [place] [address] [place] #### NICOTINE, FRUC #### [facility] , Fructosamineon 04-15-2024 Fructosamine 219 umol/L Normal 0-285 [facility] Comment on above: Result Comment: Publ ished reference interval for apparently healthy subjects between age 20 and 60 is 205 - 285 umol/L and in a poorly controlled diabetic population is 228 - 563 umol/L with a mean of 396 umol/L. Performed at: [facility] [address] [place], [place] [id number] Wireless Cellular Technician: Dario West PhD, Phone: [phone] Performed By: #### A 1C WTH eA, ALB, [id number], HGB #### [address] #### NICOTINE #### [facility] , Fructosamine [Moles/volume] in Serum or PlasmaOrdered By: Santa Estrada on 04-15-2024 Fructosamine [Moles/Vol] 219 umol/L 0-285 [facility] Comment on above: Published reference interval for apparently healthysubjects between age 20 and 60 is 205 - 285 umol/L and in apoorly controlled diabetic population is 228 - 563 umol/Lwith a mean of 396 umol/L.Performed at: [facility] [id number] Director: Dario West PhD, Phone: [phone] Glucose [Mass/volume] in Ser um or PlasmaOrdered By: Santa Estrada on 04-15-2024 Glucose [Mass/Vol] 88 mg/dL 70-100 [facility] Comment on above: ADA recommended refe rence rangeRandom Glucose Reference Range is dependent on time and content of last meal. Glucose of more than 200 mg/dL in a nonstressed, ambulatory subject supports the diagnosis of Diabetes Mellitus. Result Comment: Reading om Glucose Reference Range is dependent on time and content of last meal. Glucose of more than 200 mg/dL in a nonstressed, ambulatory subject supports the diagnosis of Diabetes Mellitus. ADA recommended reference range Performed By: #### A 1C WTH eA, ALB, [id number], HGB #### [place] [address] [place] #### NICOTINE #### [facility] , Hematocrit [Volume Fraction] of Blood by Automated countOrdered By: Santa Estrada on 04-15-2024 Hematocrit (Bld) [Volume fraction] 40.4 % 34.0-46.4 [facility] Comment on above: Performed By: #### B MP, CBC #### [facility] [address] [place] [address] [place] #### NICOTINE, FRUC #### [facility] , Hemoglobin [Mass/volume] in BloodOrdered By: Santa Estrada on 04-15-2024 Hemoglobin (Bld) [Mass/Vol] 13.7 g/dL 11.8-15.4 [facility] Comment on above: Performed By: #### B MP, CBC #### [place] [address] [place] #### NICOTINE, FRUC #### [facility] , Ketones Auto test strip (U) [Mass/Vol]Ordered By: Santa Estrada on 04-15-2024 Ketones (U) [Mass/Vol] Negative Negative [facility] Leukocytes [#/volume] correc perla for nucleated erythrocytes in Blood by Automated counOrdered By: Santa Estrada on 04-15-2024 WBC corrected for nucl RBC Auto (Bld) [#/Vol] 4.1 10*3/uL 3.8-11.6 [facility] Leukocytes [#/volume] in Blo od by Automated countOrdered By: Santa Estrada on 04-15-2024 WBC (Bld) [#/Vol] 4.1 10*3/uL 3.8-11.6 [facility] Comment on above: Performed By: #### B MP, CBC #### [facility] [address] [place] [address] [place] #### NICOTINE, FRUC #### [facility] , Lymphocytes [#/volume] in Bl ood by Automated countOrdered By: Santa Estrada on 04-15-2024 Lymphocytes (Bld) [#/Vol] 1.4 10*3/uL 1.00-4.8 [facility] Comment on above: Performed By: #### B MP, CBC #### [facility] [address] [place] [address] [place] #### NICOTINE, FRUC #### [facility] , Lymphocytes/100 leukocytes i n Blood by Automated countOrdered By: Santa Estrada on 04-15-2024 Lymphocytes/100 WBC (Bld) 33.6 % . [facility] Comment on above: Performed By: #### B MP, CBC #### [place] [address] [place] #### NICOTINE, FRUC #### [facility] , MCH [Entitic mass] by Automa perla countOrdered By: Santa Estrada on 04-15-2024 MCH (RBC) [Entitic mass] 30.4 pg 24.7-34.3 [facility] Comment on above: Performed By: #### B MP, CBC #### [address] #### NICOTINE, FRUC #### [facility] , MCHC Auto (RBC) [Mass/Vol]Or dered By: Santa Estrada on 04-15-2024 MCHC (RBC) [Mass/Vol] 34.0 g/dL 32.0-35.0 [facility] MCV [Entitic volume] by Auto mated countOrdered By: Santa Estrada on 04-15-2024 MCV (RBC) [Entitic vol] 89.4 fL 80-100 [facility] Comment on above: Performed By: #### B MP, CBC #### [place] [address] [place] #### NICOTINE, FRUC #### [facility] , Neutrophils [#/volume] in Bl ood by Automated countOrdered By: Santa Estrada on 04-15-2024 Neutrophils (Bld) [#/Vol] 2.2 10*3/uL 1.8-7.7 [facility] Comment on above: Performed By: #### B MP, CBC #### [place] [address] [place] #### NICOTINE, FRUC #### [facility] , Nicotine [Mass/volume] in Se rum or PlasmaOrdered By: Santa Estrada on 04-15-2024 Nicotine [Mass/Vol] <1.0 ng/mL . [facility] Comment on above: This test was develo ped and its performance characteristicsdetermined by [facility]. It has not been cleared orapproved by the Food and Drug Administration.Nicotine levels greater than 2.0 are consistent with theuse of tobacco or tobacco cessation products. Nicotine/Cotinine Bloodon Cotinine, Blood <1.0 Normal . [facility] Comment on above: Result Comment: This test was developed and its performance characteristics determined by [facility]. It has not been cleared or approved by the Food and Drug Administration. Cotinine levels greater than 20.0 are consistent with the use of tobacco or tobacco cessation products. Performed at: [address] [id number] Wireless Cellular Technician: Marcellus Dave MD, Phone: [phone] PERFORMED BY: [place] [address] PATHOLOGIST BROADCAST NEWS PRODUCER GENO BENEDICT M.D. Performed By: #### A 1C WT eA, ALB, [id number], HGB #### [address] #### NICOTINE #### [facility] , Nicotine, Blood <1.0 Normal . [facility] Comment on above: Result Comment: This test was developed and its performance characteristics determined by [facility]. It has not been cleared or approved by the Food and Drug Administration. Nicotine levels greater than 2.0 are consistent with the use of tobacco or tobacco cessation products. Performed By: #### A 1C WTH eA, ALB, [id number], HGB #### [place] [address] [place] #### NICOTINE #### [facility] , Nitrite Test strip Ql (U)Ord ered By: Santa Estrada on 04-15-2024 Nitrite Ql (U) Negative Negative [facility] No Panel InformationOrdered By: Santa Estrada on 04-15-2024 Estimated GFR (CKD-EPI) > 60.0 mL/Min [facility] Creatinine Clearance (Chem N/A [facility] Nucleated erythrocytes [Pres ence] in Blood by Automated countOrdered By: Santa Estrada on 04-15-2024 Nucleated RBC Auto Ql (Bld) 0.1 /100{WBC} 0-0.5 [facility] PST Type and Screenon 2023 ABO and Rh group Nom (Bld) Blood group O Rh(D) positive Normal [facility] Comment on above: Order Comment: Date of Surgery: [id number] Result Comment: PERF ORMED BY: [place] [address] PATHOLOGIST BROADCAST NEWS PRODUCER GENO BENEDICT M.D. Platelet mean volume [Entiti c volume] in Blood by Automated countOrdered By: Santa Estrada on 04-15-2024 Platelet mean volume (Bld) [Entitic vol] 7.3 fL 6.3-10.7 [facility] Comment on above: Performed By: #### B MP, CBC #### [facility] [address] [place] [address] #### NICOTINE, FRUC #### [facility] , Platelets [#/volume] in Bloo d by Automated countOrdered By: Santa Estrada on 04-15-2024 Platelets (Bld) [#/Vol] 230 10*3/uL 150-450 [facility] Comment on above: Performed By: #### B MP, CBC #### [facility] [address] [place] [address] [place] #### NICOTINE, FRUC #### [facility] , Potassium [Moles/volume] in Serum or PlasmaOrdered By: Santa Estrada on 04-15-2024 Potassium [Moles/Vol] 4.0 mmol/L 3.5-5.1 [facility] Comment on above: Performed By: #### A 1C WTH eA, ALB, [id number], HGB #### [place] [address] [place] #### NICOTINE #### [facility] , Protein Auto test strip (U) [Mass/Vol]Ordered By: Santa Estrada on 04-15-2024 Protein (U) [Mass/Vol] Negative Negative [facility] Serum or plasma anion gap de terminationOrdered By: Santa Estrada on 04-15-2024 Anion gap [Moles/Vol] 6.7 mmol/L 6.0-15.0 [facility] Comment on above: Performed By: #### A 1C WT eA, ALB, [id number], HGB #### [place] [address] [place] #### NICOTINE #### [facility] , Sodium [Moles/volume] in Ser um or PlasmaOrdered By: Santa Estrada on 04-15-2024 Sodium [Moles/Vol] 135 mmol/L Low 136-145 [facility] Comment on above: Performed By: #### A 1C WTH eA, ALB, [id number], HGB #### [address] #### NICOTINE #### [facility] , Specific gravity Auto test s trip (U) [Rel density]Ordered By: Santa Estrada on 04-15-2024 Specific gravity (U) [Rel density] 1.009 1.001-1.03 0 [facility] Urea nitrogen [Mass/volume] in Serum or PlasmaOrdered By: Santa Estrada on 04-15-2024 Urea nitrogen [Mass/Vol] 10 mg/dL 7-25 [facility] Comment on above: Performed By: #### A 1C WTH eA, ALB, [id number], HGB #### [place] [address] [place] #### NICOTINE #### [facility] , Urinalysison 04-15-2024 Appearance (U) Clear Normal Clear [facility] Comment on above: Order Comment: Name Collection Type:: Clean-Voided Midstream Performed By: #### U A #### [facility] [address] [place] [address] [place] Bilirubin,Urine Negative Normal Negative [facility] Comment on above: Order Comment: Name Collection Type:: Clean-Voided Midstream Performed By: #### U A #### [facility] [address] [place] [address] [place] Glucose Ql (U) Normal Normal Normal [facility] Comment on above: Order Comment: Name Collection Type:: Clean-Voided Midstream Performed By: #### U A #### [facility] [address] [place] [address] [place] Ketones Ql (U) Negative Normal Negative [facility] Comment on above: Order Comment: Name Collection Type:: Clean-Voided Midstream Performed By: #### U A #### [place] [address] [place] Leukocyte esterase Test strip Ql (U) Negative Normal Negative [facility] Comment on above: Order Comment: Name Collection Type:: Clean-Voided Midstream Performed By: #### U A #### [place] [address] [place] Nitrite,Urine Negative Normal Negative [facility] Comment on above: Order Comment: Name Collection Type:: Clean-Voided Midstream Performed By: #### U A #### [place] [address] [place] Occult Blood,Urine Negative Normal Negative [facility] Comment on above: Order Comment: Name Collection Type:: Clean-Voided Midstream Result Comment: PERF ORMED BY: [place] [address] PATHOLOGIST BROADCAST NEWS PRODUCER GENO BENEDICT M.D. Performed By: #### U A #### [place] [address] [place] Protein,Urine Negative Normal Negative [facility] Comment on above: Order Comment: Name Collection Type:: Clean-Voided Midstream Performed By: #### U A #### [facility] [address] Specificy [place],Urine 1.009 Normal 1.001-1.03 0 [facility] Comment on above: Order Comment: Name Collection Type:: Clean-Voided Midstream Performed By: #### U A #### [address] Urobilinogen,Urine Normal Normal Normal [facility] Comment on above: Order Comment: Name Collection Type:: Clean-Voided Midstream Performed By: #### U A #### [address] Urine clarity by refractomet ry automatedOrdered By: Santa Estrada on 04-15-2024 Clarity Refractometry automated (U) Clear Clear [facility] Urine glucose measurement by automated test strip (mass/volume)Ordered By: Santa Estrada on 04-15-2024 Glucose Auto test strip (U) [Mass/Vol] Normal mg/dL Normal [facility] Urine hemoglobin detection b y automated test stripOrdered By: Santa Estrada on 04-15-2024 Hemoglobin Auto test strip Ql (U) Negative Negative [facility] Urine leukocyte esterase det ection by automated test stripOrdered By: Santa Estrada on 04-15-2024 Leukocyte esterase Auto test strip Ql (U) Negative Negative [facility] Urine pH measurement by auto mated test stripOrdered By: Santa Estrada on 04-15-2024 pH (U) 8.0 [pH] 5.0-9.0 [facility] Comment on above: Order Comment: Name Collection Type:: Clean-Voided Midstream Performed By: #### U A #### [facility] [address] [place] [address] Urobilinogen Auto test strip (U) [Mass/Vol]Ordered By: Santa Estrada on 04-15-2024 Urobilinogen (U) [Mass/Vol] Normal mg/dL Normal [facility] CBC with Diffon 03-14-2024 Abs. Basophil 0.06 k/uL Normal 0.00-0.20 [facility] Comment on above: Performed By: #### C DP, VD25, FEBC, AHCV, GLYHGB, HIVCMB, TSHX, FERI, LIPRF, B12, CP #### [place] [address] Wireless Cellular Technician: Isreal Astorga MD Abs.Imm.Granulocyte <0.03 Normal 0.00-0.30 [facility] Comment on above: Performed By: #### C DP, VD25, FEBC, AHCV, GLYHGB, HIVCMB, TSHX, FERI, LIPRF, B12, CP #### [place] [address] Wireless Cellular Technician: Isreal Astorga MD Abs.Neutrophil (Seg) 2.66 k/uL Normal 1.50-8.10 [facility] Comment on above: Performed By: #### C DP, VD25, FEBC, AHCV, GLYHGB, HIVCMB, TSHX, FERI, LIPRF, B12, CP #### [place] [address] Wireless Cellular Technician: Isreal Astorga MD Basophils/100 WBC (Bld) 1 % Normal 0-2 [facility] Comment on above: Performed By: #### C DP, VD25, FEBC, AHCV, GLYHGB, HIVCMB, TSHX, FERI, LIPRF, B12, CP #### [place] [address] Wireless Cellular Technician: Isreal Astorga MD Eosinophils (Bld) [#/Vol] 0.28 10*3/uL Normal 0.00-0.44 [facility] Comment on above: Performed By: #### C DP, VD25, FEBC, AHCV, GLYHGB, HIVCMB, TSHX, FERI, LIPRF, B12, CP #### [place] [address] Wireless Cellular Technician: Isreal Astorga MD Eosinophils/100 WBC (Bld) 5 % High 1-4 [facility] Comment on above: Performed By: #### C DP, VD25, FEBC, AHCV, GLYHGB, HIVCMB, TSHX, FERI, LIPRF, B12, CP #### [address] [id number] Wireless Cellular Technician: Isreal Astorga MD Erythrocyte distribution width (RBC) [Ratio] 12.6 % Normal 11.8-14.4 [facility] Comment on above: Performed By: #### C DP, VD25, FEBC, AHCV, GLYHGB, HIVCMB, TSHX, FERI, LIPRF, B12, CP #### [place] [id number] Wireless Cellular Technician: Isreal Astorga MD Hematocrit (Bld) [Volume fraction] 38.8 % Normal 36.3-47.1 [facility] Comment on above: Performed By: #### C DP, VD25, FEBC, AHCV, GLYHGB, HIVCMB, TSHX, FERI, LIPRF, B12, CP #### [place] [address] Wireless Cellular Technician: Isreal Astorga MD Hemoglobin (Bld) [Mass/Vol] 12.9 g/dL Normal 11.9-15.1 [facility] Comment on above: Performed By: #### C DP, VD25, FEBC, AHCV, GLYHGB, HIVCMB, TSHX, FERI, LIPRF, B12, CP #### [place] [id number] Wireless Cellular Technician: Israel Astorga MD Immature granulocytes/100 WBC (Bld) 0 % Normal 0 [facility] Comment on above: Performed By: #### C DP, VD25, FEBC, AHCV, GLYHGB, HIVCMB, TSHX, FERI, LIPRF, B12, CP #### [address] [id number] Wireless Cellular Technician: Isreal Astorga MD Lymphocytes (Bld) [#/Vol] 1.69 10*3/uL Normal 1.10-3.70 [facility] Comment on above: Performed By: #### C DP, VD25, FEBC, AHCV, GLYHGB, HIVCMB, TSHX, FERI, LIPRF, B12, CP #### [address] [phone] Wireless Cellular Technician: Isreal Astorga MD Lymphocytes/100 WBC (Bld) 33 % Normal 24-43 [facility] Comment on above: Performed By: #### C DP, VD25, FEBC, AHCV, GLYHGB, HIVCMB, TSHX, FERI, LIPRF, B12, CP #### [place] [id number] Wireless Cellular Technician: Isreal Astorga MD MCH (RBC) [Entitic mass] 29.9 pg Normal 25.2-33.5 [facility] Comment on above: Performed By: #### C DP, VD25, FEBC, AHCV, GLYHGB, HIVCMB, TSHX, FERI, LIPRF, B12, CP #### [facility] [address] [place] [id number] Wireless Cellular Technician: Irseal Astorga MD MCHC (RBC) [Mass/Vol] 33.2 g/dL Normal 28.4-34.8 [facility] Comment on above: Performed By: #### C DP, VD25, FEBC, AHCV, GLYHGB, HIVCMB, TSHX, FERI, LIPRF, B12, CP #### [facility] [address] [place] [id number] Wireless Cellular Technician: Isreal Astorga MD MCV (RBC) [Entitic vol] 89.8 fL Normal 82.6-102.9 [facility] Comment on above: Performed By: #### C DP, VD25, FEBC, AHCV, GLYHGB, HIVCMB, TSHX, FERI, LIPRF, B12, CP #### [address] [phone] Wireless Cellular Technician: Isreal Astorga MD Monocytes (Bld) [#/Vol] 0.47 10*3/uL Normal 0.10-1.20 [facility] Comment on above: Performed By: #### C DP, VD25, FEBC, AHCV, GLYHGB, HIVCMB, TSHX, FERI, LIPRF, B12, CP #### [address] [id number] Wireless Cellular Technician: Isreal Astorga MD Monocytes/100 WBC (Bld) 9 % Normal 3-12 [facility] Comment on above: Performed By: #### C DP, VD25, FEBC, AHCV, GLYHGB, HIVCMB, TSHX, FERI, LIPRF, B12, CP #### [address] [id number] Wireless Cellular Technician: Isreal Astorga MD Neutrophil (Seg) 52 % Normal 36-65 [facility] Comment on above: Performed By: #### C DP, VD25, FEBC, AHCV, GLYHGB, HIVCMB, TSHX, FERI, LIPRF, B12, CP #### [place] [address] Wireless Cellular Technician: Isreal Astorga MD NRBC Automated 0.0 per 100 WBC Normal 0.0 [facility] Comment on above: Performed By: #### C DP, VD25, FEBC, AHCV, GLYHGB, HIVCMB, TSHX, FERI, LIPRF, B12, CP #### [address] [phone] Wireless Cellular Technician: Isreal Astorga MD Platelet mean volume (Bld) [Entitic vol] 9.7 fL Normal 8.1-13.5 [facility] Comment on above: Performed By: #### C DP, VD25, FEBC, AHCV, GLYHGB, HIVCMB, TSHX, FERI, LIPRF, B12, CP #### [address] [phone] Wireless Cellular Technician: Isreal Astorga MD Platelets (Bld) [#/Vol] 256 10*3/uL Normal 138-453 [facility] Comment on above: Performed By: #### C DP, VD25, FEBC, AHCV, GLYHGB, HIVCMB, TSHX, FERI, LIPRF, B12, CP #### [address] [phone] Wireless Cellular Technician: Isreal Astorga MD RBC (Bld) [#/Vol] 4.32 10*6/uL Normal 3.95-5.11 [facility] Comment on above: Performed By: #### C DP, VD25, FEBC, AHCV, GLYHGB, HIVCMB, TSHX, FERI, LIPRF, B12, CP #### [address] [id number] Wireless Cellular Technician: Isreal Astorga MD WBC (Bld) [#/Vol] 5.2 10*3/uL Normal 3.5-11.3 [facility] Comment on above: Performed By: #### C DP, VD25, FEBC, AHCV, GLYHGB, HIVCMB, TSHX, FERI, LIPRF, B12, CP #### [address] [phone] Wireless Cellular Technician: Isreal Astorga MD Comp Metabolic Profon 2023 Albumin [Mass/Vol] 4.2 g/dL Normal 3.5-5.2 [facility] Comment on above: Performed By: #### C DP, VD25, FEBC, AHCV, GLYHGB, HIVCMB, TSHX, FERI, LIPRF, B12, CP #### [address] [phone] Wireless Cellular Technician: Isreal Astorga MD Albumin/Glob Ratio 2.0 Normal 1.0-2.5 [facility] [facility] Comment on above: Performed By: #### C DP, VD25, FEBC, AHCV, GLYHGB, HIVCMB, TSHX, FERI, LIPRF, B12, CP #### [address] [id number] [employer] Cellular Technician: Isreal Astorga MD Alkaline Phos 72 U/L Normal 35-104 [facility] Comment on above: Performed By: #### C DP, VD25, FEBC, AHCV, GLYHGB, HIVCMB, TSHX, FERI, LIPRF, B12, CP #### [address] [id number] [employer] Cellular Technician: Isreal Astorga MD ALT [Catalytic activity/Vol] 21 U/L Normal 10-35 [facility] Comment on above: Performed By: #### C DP, VD25, FEBC, AHCV, GLYHGB, HIVCMB, TSHX, FERI, LIPRF, B12, CP #### [address] [address] [employer] Cellular Technician: Isreal Astorga MD Anion gap [Moles/Vol] 8 mmol/L Low 9-16 [facility] Comment on above: Performed By: #### C DP, VD25, FEBC, AHCV, GLYHGB, HIVCMB, TSHX, FERI, LIPRF, B12, CP #### [address] [address] [employer] Cellular Technician: Isreal Astorga MD AST [Catalytic activity/Vol] 23 U/L Normal 10-35 [facility] Comment on above: Performed By: #### C DP, VD25, FEBC, AHCV, GLYHGB, HIVCMB, TSHX, FERI, LIPRF, B12, CP #### [address] [address] [employer] Cellular Technician: Isreal Astorga MD Bilirubin [Mass/Vol] 0.4 mg/dL Normal 0.00-1.20 [facility] Comment on above: Performed By: #### C DP, VD25, FEBC, AHCV, GLYHGB, HIVCMB, TSHX, FERI, LIPRF, B12, CP #### [address] [id number] [employer] Cellular Technician: Isreal Astorga MD Calcium [Mass/Vol] 8.8 mg/dL Normal 8.6-10.4 [facility] Comment on above: Performed By: #### C DP, VD25, FEBC, AHCV, GLYHGB, HIVCMB, TSHX, FERI, LIPRF, B12, CP #### [address] [id number] [employer] Cellular Technician: Isreal Astorga MD Chloride [Moles/Vol] 106 mmol/L Normal 98-107 [facility] Comment on above: Performed By: #### C DP, VD25, FEBC, AHCV, GLYHGB, HIVCMB, TSHX, FERI, LIPRF, B12, CP #### [address] [id number] [employer] Cellular Technician: Isreal Astorga MD CO2 [Moles/Vol] 25 mmol/L Normal 20-31 [facility] Comment on above: Performed By: #### C DP, VD25, FEBC, AHCV, GLYHGB, HIVCMB, TSHX, FERI, LIPRF, B12, CP #### [address] [address] [employer] Cellular Technician: Isreal Astorga MD Creatinine [Mass/Vol] 0.7 mg/dL Normal 0.50-0.90 [facility] Comment on above: Performed By: #### C DP, VD25, FEBC, AHCV, GLYHGB, HIVCMB, TSHX, FERI, LIPRF, B12, CP #### [address] [id number] [employer] Cellular Technician: Isreal Astorga MD GFR/1.73 sq M.predicted among non-blacks MDRD (S/P/Bld) [Vol rate/Area] mL/min/{1.73_m2} Normal >60 [facility] Comment on above: Result Comment: These [...] HIVCMB, TSHX, FERI, LIPRF, B12, CP #### [place] [address] Wireless Cellular Technician: Isreal Astorga MD Glucose [Mass/Vol] 94 mg/dL Normal 74-99 [facility] Comment on above: Performed By: #### C DP, VD25, FEBC, AHCV, GLYHGB, HIVCMB, TSHX, FERI, LIPRF, B12, CP #### [place] [address] Wireless Cellular Technician: Isreal Astorga MD Potassium [Moles/Vol] 3.8 mmol/L Normal 3.7-5.3 [facility] Comment on above: Performed By: #### C DP, VD25, FEBC, AHCV, GLYHGB, HIVCMB, TSHX, FERI, LIPRF, B12, CP #### [address] [id number] [employer] Technician: Isreal Astorga MD Protein [Mass/Vol] 6.7 g/dL Normal 6.6-8.7 [facility] Comment on above: Performed By: #### C DP, VD25, FEBC, AHCV, GLYHGB, HIVCMB, TSHX, FERI, LIPRF, B12, CP #### [address] [id number] [employer] Cellular Technician: Isreal Astorga MD Sodium [Moles/Vol] 139 mmol/L Normal 136-145 [facility] Comment on above: Performed By: #### C DP, VD25, FEBC, AHCV, GLYHGB, HIVCMB, TSHX, FERI, LIPRF, B12, CP #### [address] [phone] [employer] Cellular Technician: Isreal Astorga MD Urea nitrogen [Mass/Vol] 12 mg/dL Normal 6-20 [facility] Comment on above: Performed By: #### C DP, VD25, FEBC, AHCV, GLYHGB, HIVCMB, TSHX, FERI, LIPRF, B12, CP #### [address] [id number] [employer] Cellular Technician: Isreal Astorga MD Ferritinon 6 Ferritin [Mass/Vol] 133 ng/mL Normal 13-150 [facility] Comment on above: Result Comment: FERRITIN Reference Ranges: Adult Males 20 - 60 years: 30 - 400 ng/mL Adult females 17 - 60 years: 13 - 150 ng/mL Adults greater than 60 years: no established reference range Pediatrics: no established reference range Performed By: #### C DP, VD25, FEBC, AHCV, GLYHGB, HIVCMB, TSHX, FERI, LIPRF, B12, CP #### [address] [phone] [employer] Cellular Technician: Isreal Astorga MD HIV Ag/Abon 03-14-2024 HIV Ag/Ab Non-Reactive Normal NR [facility] Comment on above: Result Comment: No l aboratory evidence of HIV infection. If acute HIV infection is suspected, consider testing for HIV-1 RNA. Performed By: #### C DP, VD25, FEBC, AHCV, GLYHGB, HIVCMB, TSHX, FERI, LIPRF, B12, CP #### [address] [address] [employer] Cellular Technician: Isreal Astorga MD Hemoglobin A1Con 03-14-2024 Glucose [Mass/Vol] 94 mg/dL Normal [facility] Comment on above: Result Comment: The ADA and AACC recommend providing the estimated average glucose result to permit better patient understanding of their HBA1c result. Performed By: #### C DP, VD25, FEBC, AHCV, GLYHGB, HIVCMB, TSHX, FERI, LIPRF, B12, CP #### [address] [address] [employer] Cellular Technician: Isreal Astorga MD HbA1c (Bld) [Mass fraction] 4.9 % Normal 4.0-6.0 [facility] Comment on above: Performed By: #### C DP, VD25, FEBC, AHCV, GLYHGB, HIVCMB, TSHX, FERI, LIPRF, B12, CP #### [address] [address] [employer] Cellular Technician: Isreal Astorga MD Hep C Abon 03-14-2024 Hep C Ab Non-Reactive Normal NR [facility] Comment on above: Result Comment: The [...] HIVCMB, TSHX, FERI, LIPRF, B12, CP #### [facility] [address] [place] [address] [id number] Wireless Cellular Technician: Isreal Astorga MD Iron Binding Cap.on 03-14-20 24 % Fe Saturation 44 % Normal 20-55 [facility] Comment on above: Performed By: #### C DP, VD25, FEBC, AHCV, GLYHGB, HIVCMB, TSHX, FERI, LIPRF, B12, CP #### [address] [id number] [employer] Cellular Technician: Isreal Astorga MD Iron [Mass/Vol] 107 ug/dL Normal 37-145 [facility] Comment on above: Performed By: #### C DP, VD25, FEBC, AHCV, GLYHGB, HIVCMB, TSHX, FERI, LIPRF, B12, CP #### [address] [address] [employer] Cellular Technician: Isreal Astorga MD Total Fe Binding Cap 243 ug/dL Low 250-450 [facility] Comment on above: Performed By: #### C DP, VD25, FEBC, AHCV, GLYHGB, HIVCMB, TSHX, FERI, LIPRF, B12, CP #### [facility] [address] [place] [address] [employer] Cellular Technician: Isreal Astorga MD Unbound Fe Bind Cap 136 ug/dL Normal 112-347 [facility] Comment on above: Performed By: #### C DP, VD25, FEBC, AHCV, GLYHGB, HIVCMB, TSHX, FERI, LIPRF, B12, CP #### [facility] [address] [place] [address] [employer] Cellular Technician: Isreal Astorga MD Lipid Prof, Fastingon 2023 Cholesterol [Mass/Vol] 174 mg/dL Normal 0-199 [facility] Comment on above: Result Comment: Cholesterol Guidelines: <200 Desirable 200-240 Borderline >240 Undesirable Performed By: #### C DP, VD25, FEBC, AHCV, GLYHGB, HIVCMB, TSHX, FERI, LIPRF, B12, CP #### [address] [id number] Wireless Cellular Technician: Isreal Astorga MD Cholesterol in HDL [Mass/Vol] 57 mg/dL Normal >40 [facility] Comment on above: Result Comment: HDL Guidelines: <40 Undesirable 40-59 Borderline >59 Desirable Performed By: #### C DP, VD25, FEBC, AHCV, GLYHGB, HIVCMB, TSHX, FERI, LIPRF, B12, CP #### [address] [address] Wireless Cellular Technician: Isreal Astorga MD Cholesterol in LDL [Mass/Vol] 96 mg/dL Normal 0-100 [facility] Comment on above: Result Comment: LDL Guidelines: <100 Desirable 100-129 Near to/above Desirable 130-159 Borderline >159 Undesirable Direct (measured) LDL and calculated LDL are not interchangeable tests. Performed By: #### C DP, VD25, FEBC, AHCV, GLYHGB, HIVCMB, TSHX, FERI, LIPRF, B12, CP #### [address] [address] Wireless Cellular Technician: Isreal Astorga MD Cholesterol in VLDL [Mass/Vol] 22 mg/dL Normal [facility] Comment on above: Performed By: #### C DP, VD25, FEBC, AHCV, GLYHGB, HIVCMB, TSHX, FERI, LIPRF, B12, CP #### [address] [address] Wireless Cellular Technician: Isreal Astorga MD Cholesterol.total/Chol esterol in HDL [Mass ratio] 3.0 {ratio} Normal [facility] Comment on above: Performed By: #### C DP, VD25, FEBC, AHCV, GLYHGB, HIVCMB, TSHX, FERI, LIPRF, B12, CP #### [address] [phone] Wireless Cellular Technician: Isreal Astorga MD Triglyceride,Fasting 108 mg/dL Normal 0-149 [facility] Comment on above: Result Comment: Triglyceride Guidelines: <150 Desirable 150-199 Borderline 200-499 High >499 Very high Based on AHA Guidelines for fasting triglyceride, June 2012. Performed By: #### C DP, VD25, FEBC, AHCV, GLYHGB, HIVCMB, TSHX, FERI, LIPRF, B12, CP #### [facility] [address] [place] [address] [id number] Wireless Cellular Technician: Isreal Astorga MD TSH w/reflex to FT4on 2023 Thyroid Stim. Horm. 2.37 uIU/mL Normal 0.27-4.20 [facility] Comment on above: Performed By: #### C DP, VD25, FEBC, AHCV, GLYHGB, HIVCMB, TSHX, FERI, LIPRF, B12, CP #### [facility] [address] [place] [address] [phone] Wireless Cellular Technician: Isreal Astorga MD Vitamin B12on 03-14-2024 Cobalamin (Vitamin B12) [Mass/Vol] 695 pg/mL Normal 232-1245 [facility] Comment on above: Performed By: #### C DP, VD25, FEBC, AHCV, GLYHGB, HIVCMB, TSHX, FERI, LIPRF, B12, CP #### [facility] [address] [place] [address] [id number] Wireless Cellular Technician: Isreal Astorga MD Vitamin D 25 OHon 03-14-2024 Vitamin D 25 OH 17.4 ng/mL Low 30.0-100.0 [facility] Comment on above: Result Comment: Reference Range: Vitamin D status Range Deficiency <20 ng/mL Mild Deficiency 20-30 ng/mL Sufficiency 30-100 ng/mL Toxicity >100 ng/mL Performed By: #### C DP, VD25, FEBC, AHCV, GLYHGB, HIVCMB, TSHX, FERI, LIPRF, B12, CP #### [employer] [address] [place] [address] Wireless Cellular Technician: Isreal Astorga MD Patient Handouton 03-13-2024 Patient Handout [facility] [address], [address], [place] Date: 03/13/2024 RE: Lucila Jacques To whom it may concern, Lucila has been under my professional care due to a surgical procedure performed on 02/27/2024. She may return to work with no restrictions on 03/20/2024. Thank you, Peter Booth M.D. Normal [facility] Release of Informationon Release of Information [id number] Normal [facility] A1C with Estimated Average G luon 03-12-2024 Glucose [Mass/Vol] 105 mg/dL Normal [facility] Comment on above: Result Comment: PERF ORMED BY: [place] [address] PATHOLOGIST BRO[employer]CAST NEWS PRODUCER GENO BENEDICT M.D. Performed By: #### A 1C WTH eA, ALB, [id number], HGB #### [address] #### NICOTINE #### [facility] , Albumin Levelon 03-12-2024 Albumin [Mass/Vol] 4.0 g/dL Normal 3.5-5.7 [facility] Comment on above: Performed By: #### A 1C WTH eA, ALB, [id number], HGB #### [place] [address] [place] #### NICOTINE #### [facility] , Albumin [Mass/volume] in Ser um or Plasma by Bromocresol green (BCG) dye binding methoOrdered By: Santa Estrada on 03-12-2024 Albumin BCG dye [Mass/Vol] 4.0 g/dL 3.5-5.7 [facility] Cotinine [Mass/volume] in Se rum or PlasmaOrdered By: Santa Estrada on 03-12-2024 Cotinine [Mass/Vol] 3.7 ng/mL . [facility] Comment on above: This test was develo ped and its performance characteristicsdetermined by [facility]. It has not been cleared orapproved by the Food and Drug Administration.Cotinine levels greater than 20.0 are consistent with theuse of tobacco or tobacco cessation products.Performed at: [facility] [id number] Director: Marcellus Dave MD, Phone: [phone] Glucose mean value [Mass/vol ume] in Blood Estimated from glycated hemoglobinOrdered By: Santa Estrada on 03-12-2024 Average glucose Estimated from glycated hemoglobin (Bld) [Mass/Vol] 105 mg/dL [facility] Hemoglobin A1c percentageOrd ered By: Santa Estrada on 03-12-2024 HbA1c (Bld) [Mass fraction] 5.3 % Normal 4.3-5.6 [facility] Comment on above: Increased risk for d iabetes: 5.7 - 6.4diabetes: >6.4glycemic control for adults with diabetes: <7.0 Result Comment: Incr eased risk for diabetes: 5.7 - 6.4 diabetes: >6.4 glycemic control for adults with diabetes: <7.0 Performed By: #### A 1C WTH eA, ALB, [id number], HGB #### [place] [address] [place] #### NICOTINE #### [facility] , Hemoglobin [Mass/volume] in BloodOrdered By: Santa Estrada on 03-12-2024 Hemoglobin (Bld) [Mass/Vol] 12.8 g/dL Normal 11.8-15.4 [facility] Comment on above: Result Comment: PERF ORMED BY: [place] [address] PATHOLOGIST BROADCAST NEWS PRODUCER JIANLAN SUN M.D. Performed By: #### A 1C WTH eA, ALB, [id number], HGB #### [facility] [address] [place] [address] [place] #### NICOTINE #### [facility] , MRSA Cultureon 03-12-2024 MRSA Culture No MRSA Isolated 2 D ays PERFORMED BY: [place] [address] PATHOLOGIST BROADCAST NEWS PRODUCER GENO BENEDICT M.D. Normal [facility] Comment on above: Performed By: #### C UMRSA #### [facility] [address] [place] [address] Nicotine [Mass/volume] in Se rum or PlasmaOrdered By: Santa Estrada on 03-12-2024 Nicotine [Mass/Vol] <1.0 ng/mL . [facility] Comment on above: This test was develo ped and its performance characteristicsdetermined by [facility]. It has not been cleared orapproved by the Food and Drug Administration.Nicotine levels greater than 2.0 are consistent with theuse of tobacco or tobacco cessation products. Nicotine/Cotinine Bloodon Cotinine, Blood 3.7 ng/mL Normal . [facility] Comment on above: Result Comment: This test was developed and its performance characteristics determined by [facility]. It has not been cleared or approved by the Food and Drug Administration. Cotinine levels greater than 20.0 are consistent with the use of tobacco or tobacco cessation products. Performed at: [address] [id number] Wireless Cellular Technician: Marcellus Dave MD, Phone: [phone] PERFORMED BY: [place] [address] PATHOLOGIST BROADCAST NEWS PRODUCER GENO BENEDICT M.D. Performed By: #### A 1C WTH eA, ALB, [id number], HGB #### [place] [address] [place] #### NICOTINE #### [facility] , Nicotine, Blood <1.0 Normal . [facility] Comment on above: Result Comment: This test was developed and its performance characteristics determined by [facility]. It has not been cleared or approved by the Food and Drug Administration. Nicotine levels greater than 2.0 are consistent with the use of tobacco or tobacco cessation products. Performed By: #### A 1C WTH eA, ALB, [id number], HGB #### [address] #### NICOTINE #### [facility] , Vitamin D 25 Hydroxy Totalon 03-12-2024 Vitamin D 25 Hydroxy Total 18.4 ng/mL Low 30-100 [facility] Comment on above: Result Comment: EVE MIN D STATUS 25(OH)VITAMIN D RANGE (ng/mL) Deficient <20 Insufficient 20 to <30 Sufficient 30 to 100 Reference: Juliano Vila, Tate VELAZQUEZ, et al. Evaluation,treatment, and prevention of vitamin D deficiency; an Endocrine Society clinical practice guideline. JCEM. 2010; 96(7):191-. PERFORMED BY: [place] [address] PATHOLOGIST BROADCAST NEWS PRODUCER GENO BENEDICT M.D. Performed By: #### A 1C WTH eA, ALB, [id number], HGB #### [address] #### NICOTINE #### [facility] , Vitamin D+Metabolites [Mass/ volume] in Serum or PlasmaOrdered By: Santa Estrada on 03-12-2024 Vitamin D+Metabolites [Mass/Vol] 18.4 ng/mL Low 30-100 [facility] Comment on above: VITAMIN D STATUS [...] (Unsp spec) No MRSA Isolated 2 Days [facility] Coding Summaryon 03-07-2024 Coding Summary HTMLBase 64 HutnqjtoQAp9vCv+PGhlYWQ+PE1 DEPLmE39xoCOksV8yW3TMRKcLQa ktUUODRTaJEpBdyqHlWS3bkLJiX XJu IC8+OQ1dFYAdLlczzVIxs1R3dDU 8G65eoq0rUKrzjTI1ULKvBuMyem fls3ufiNb6YYtcGeqkOcDf QEBrsZ43TSO0uX45Ji89bGGorXQ zy6nutSh0UtAqMIHmDPT0bHzwMV iue1IuOGVkX44anVHem0I9 HGKazBauqAYmQjAkfIQ9oR0dCLu pmzhoe8qjjvbcEod1vx27hLUku5 E3mHG6J8AvvjA0HVVaiHWd CnotiSDPsL6cozkzx1qpaxptQfC dFPMcASn0JAf9NIQhcIajGdRiNB 49WKU3MXFaeiXjZ1BvMBKw gKnqEtL9g3V3Uc6XA1SBWaqbU4E NTUFSWTwvdGQ+OI94hm30S9DoKb vuRtr4EINbFOE2qGJ5nA2m FDTcSCqhd6T6dDE3U9GonfLmqv5 ug3bcWZMdXHcsJ29vpWJtb5Z7WF KhcQO0WRZwnKqmQxLkoU83 Oyc+JJCplXgbq8KjYpcki7jmt2l paCn2CdxvSYNugsFmgFxrSVU5h8 EuPh3iCWKraTY0zFA0mH8v YnGiYuM8RTzeC497GeCpcJLrHaj oM87pQ0KxnLU+VOJpMiq3BPJzwA fuVX0nL4UjNEJrvwqlqEOd wNeiEM1vUPMvsbcoGOMbkT4vSAC cO1d3QsAkFkB0YLllK3CiTUUhro gqPp25cU0nNfUaKwH9FJhe G9JiuiD6BQHwzFTzEGijYEN1B48 gb5O2XUFcUTUbLNT5hZG4iV0gbP lnbjogbGVmdDsgdmVydGlj JApeCDnlK493WPDbqNilDyNdWIp uZyBEYXRlOiAgMDYvMTMvMjAyND wvdGQ+JQErWAK1xXnvQCQl kECgKPxdTl3jpNsmtLmeOQ2iRCP nhvwpPGVsfK6pYTObgYGycPahDN 6rKHLusrorh251MdLwPSM4 XMSobMNvY9SoyD2tOlSaNTAoQRK aR2HldKTgEUzwR416SIheMnM7OB AhhoOvE2PfVUPuzCfxYuX3 y5H8Uw2Sv4AugesbI4GacHUlZyZ lFuzvIQq6W0PfRflanNI+PC90YW RfTS00OZq3IKP1zHirYBis RZCeA5XolU7pNdIbXMUrOPWkXja +PHRhYmxlIHdpZHRoPScxMDAlJy AmjMjrZY0sRf0vCJCmNWLx uLdntFVkQdMaj1udERIcFUwqWU9 jsFwxR9VczHZ2LADqd7n4Wb59H2 5kW0BdyXL+JSVkvGS7iKC6 dS0bJuBzDoP8LVjuB047OqYbaNK cNveqz8epg1mfhLh3SfI4OFXqho UpeQlfWVI4q7PcZn32R89x IHdpZHRoPSIxNSUiIHZhbGlnbj0 fkK0gWn1+SIMvbOZ2gXS0hX8mRj UcBfZ8GVvfP542DmJvbPBu Bzlvu8dwh2sdtTo1AbKjOQKpviC hdCeeMHD4y2NeWc69K2MfmIhub5 ZlHph0zr42rLSgj5M6fVC5 P1UpZVWzjuqxsRSldTmvAB2gKLZ dlnceRUAtuW8iHODdQ3b8VvKiWo O0CLesO6DdnuC5GRFvyUVm GAVuoNAYzF9ujgsxs9pjbtmzSgF dVEOiXZt2HOc3XGIciMeePwNmME A5DkT1ATB7gEPmfY8txNev zonvlZ0oQje+KVI8tKVfuTCDWL7 lOjwvdGQ+MQBjOPI6sEdrXEjaTE AwuC0aNHYyK7l0SjLaHpL2 HNbgU5KhthP4PEVqrSBjKHHntWY TuQ8uuvhnz6mmuemzKuPmGKWmRB v4TEo2UDPppUvwIyHpFXF6 JqE1DZW6cECsyP0zeHmmqvofqP9 wOyc+ChioxMlvKVI2YUp2U4WzDa h0WYTmrQjuME0cgQIxOKsv Ql8jaMpqwApeFK7nXDCldgulu94 5SvZzh3omHFJqgAXjFFafLZA6I2 5dh2N9PMXdILYnFVG6cJD5 uL8vzRgmoivxlHXrbRzihhKqoGb hLKbtGYlxC696UFPkdVvdEcWaWF s2F9AbNmb3PGCnuFucFY5s cQHfKCgbXx0gpZxebEvfUU8bZNB uevhia542XeJqr8nvGLVxiGEqFB ssKNA5O12jf3F3TGRhQHKu CHC9zMR1tI7oaXtifffsoWLglVw foaNszHdwDYgiDRdhI084EGTkgV naAeNetQh5U6SwRyp5QNUz tIjwOT5xoSHdJLlmKs1eoHgckAn hVF0nJUIqcwtic478VzOay3hvEL KgcEXkNVdsHZU7E85oa5J6 FEUvKNPqFNV2fMQ7iA9ajJpbikz gbGVmdDsgdmVydGljYWwtYWxpZ2 46IHRvcDsnPlBhdGllbnQg PBxdLFk0Z0HwGxxahPL+ST64TWF sRN28nRQdhJXaw1hbrYe9HhGdKR HhOAH9pQquSQuwi3TiANMx X32ggSSio1C6YRRbdHsimHXfKsV utNW7pJ1bFRziwxijd5omxpkiQi kej8vnar73qQ58M39bRFak ITVwVSMjSCEfKSXipDrpks8aoL2 wIi8+FXEepHA4hVB8hB9aLXZnSi U7IEedN370DhMggSJpQywh l3oqw8akgFi6CyP9IKLnbeWijDp aSRV7u9KtGw06V46xAEgpIUFeER MnGHKoPLOasWanee9euE4l Ii8+HEVcwYX7tCW5fY1qNxWiNbN 2JHwhF603SeSsvXCpVwbnT59lT5 JvdXA+FGUiMfw1CGHnsOqv KF7bcMDzSUhoJe7iLFR7FmNoHgE aZVjeY6IgQZXdnqkqjruqxHX8RH OoEMHflN28Zh5ixJwhVPLx dPFLzB4yawbwz1bhelifHpSpXRZ uAUw5XKc0TMNuaEgfKaLjNCL1Gh P6UPF6rOFrpV0kiXjqtnbq gQ3mU3RgRLZtlclbEq63wO2sXgP pGqS9WVddWyy+ZxGLNyxjT9TTYQ dESoSAHRP0V3FsWpv4HWDp zBdoQO6giFUjRVanUb3rsWvpgHn zOW7eRYOdzodlTCMalO6kYQKkbZ LmhZchKS8mJQSklfgjl131 VoCpTUJ5OZMfiWOoK1ZheB7wSyC qIQPnODWnM6CsnVQzZPsuN601YT lzFlO8NSEksuOzQ2GhXMOz jAjlUsW8q9I3Fn0jEH6dWt1rXNg 4KZ36OH77lTGeq0D0cCR5T0YnHF BycmopdmjtcYD7ASOtNGSg uD85mOUeNXsePs6ki7P9g938SEW sTNArlL27Yn6mkYuqIQBqqTQYhH 1cguvmg5tcxabcHhNpLMNn GVw9IXe2YIYglPdeUgTcASM9XqW 2ZFG4mAPlaV5vpJbhyeobbG6lWm c+VrXiJNBucyJ7X2IpAcw6 VJFgoJwjVI4thPHlDJrsYm5qwEw gvHwmRR1tFQEdkptxGNWbkD0zLM WowXOiyJdkBL4iYLBtrbsy d523PgIuCUH9GDHyaIMqJ0RyuF0 bHxBxOQAbQGLcY9HsgTIdQAteT0 90JDsfFdB5QRFijqGiP5Wh DTGnoUjcSnN1g8R6Ap1EYL8BVWN 0R9RcPzv1CAUezUluCK1mnLCsEW azMl2axXyylRaeNJ3rCAPt fgdvTCNqmF7oFKAtnPPzyBhhTO9 uCXTyutfld933EjAyLNU7CWUzhM OuC2LzrD9lMjBsIMFhYHIi W6YhdWIdSWvgT130KYxbTqL8QQS kvpKmI0UdVNXwvSezGlK7r5A1Xj 5PYnNlcnZhdGlvbjwvdGQ+ VP41tk92C7ZtHnxlJhr9TYMsBMC 0cCY4uW3lBPQzMYmdr5F6pDC9R0 NejoMiiq7wy2gtFSZlXBlz E11jyHOsw1K6DVEfyTH3VLMfvSe qYtCkdW41Fkr+WMKfdJyos2SdGa woo3ffk4ynaQd0LtOcKOKv msQnjEarNTW8j9FlVx88W65jJAb yMNIiFYYnQDMbZRWjcMncch7uuG 9wIi8+NYUlmTM0kIY6kK4w YfWfOqD3BYukB702UuApfANxKte zj8kcz7wexEb9VxYmUNLkodDchA yeYXW6z3MfMz75V3TedGdu p9YdZdb8xz26fBXxw1K8bMN4V2G bPCCbattrhLEstAxtCZ3hYPWgnl mqGAFdeD9hPCFpP5e5DnDx TvF9ZJohT1MmrnM3GZYmnWDiWCD gbQYJlP2xdrwga6wjysniUyVpTZ JgIAm7FKz4KJBinAcjGuEo UYJ6FeD3IPP2lNAloA3zoXcqrrc dwS5rTvl+RNg0q6cddVXoMK2czJ Y9XP29AL35uHIyq1T7tDJ5 G3IpQKSytstanrbyjNQ4QMKtVTU eaG03Ul6jeIwbJp6eFPWcEFP7RZ XthHYjA3VblR7rXqEzBHTf DYOkZ5UlkGSuOOitO776GGzbJoW 3FUWansCrW8IsQZJmcZcaLvG8x7 N1Yf9HTL91PV41IJ04iJKd i2K9zZJ2L6NlFFIwwlythvuzzSS 5XYLnEKVxeL63Vj7znOeyVh9rEC VwKFH1SMYawQFdT3XzgE6m KoBxKTHfJYEsW3FjcHAfNLnrC39 4TNluIkW6SSTfbfTvD4MjMETfoA crFbY8q2T0Ez8XIz18SJ34 DL92uUNpf5Q0vMV2T6RcCTOdudn pslhodAA4SYVqDPWvmW00Fy8hvQ vcXy4aZKZwWJH0JPLmnYPv P0AdtF6tNgFwJBMcYONdC2TckIS tWXybE738JThnViB0CICgzbYrQ2 MgHPSalBikQgN7o1H0By2L MObzgrn3X6OvPuhcyTH+EV50AGP gSF55iQJfiVFce6ihdCx5OaXiLU MhVDF5hCrxWEzgl9XbGRSu Y29 (more content not included)... Normal [facility] Lab - AP Resultson 4 Lab - AP Results [id number]#1.00OTGTIFF Normal [facility] MR KNEE LT WO CONTon 024 MR [...] Mckenzie MD on 03/04/2024 9:59 AM Normal [facility] Consent Formson 02-29-2024 Consent Forms [id number][facility]-28-2024 Consent Forms [id number]#[facility] Cons[facility] [id number]#[facility] MAGR Postoperative Recordon 02-28-2024 MAGR Postoperative Record MAGR Phase II Record Summary Primary Physician: Peter Booth MD Finalized Date/Time: 02/28/24 07:49:14 Pt. Name: LUCILA JACQUES/Sex: 1990 FEMALE Med Rec #: [id number] Physician: Param Michelle DO Financial #: [id number] Pt. Type: O Room/Bed: [facility] Admit/Disch: 02/26/24 22:40:28 - 02/27/24 18:45:00 [...] Signed By: Mya Villar RN 02/28/24 07:49 [facility] Outside Recordson 02-28-2024 Outside Records [id number]#[facility] Tele[facility] Strips [id number]#[facility] .Auto Diff 102-27-2024 Auto [place] % 8 % Normal -12 [facility] Comment on above: Performed By: #### 1 [id number], [id number], [id number], [id number], 5192104, 8504654, 7097519, [id number] #### [facility] (DEFAULT) [address] [place] [address] Baso Abs# 0.0 x10 Normal 0.0-0.2 [facility] Comment on above: Performed By: #### 1 [id number], [id number], 4752711, [id number], 1117376, 5186216, 5521192, 9088977 #### [facility] (DEFAULT) [address] [place] [address] 52907 Basophils/100 WBC (Bld) 0.4 % Normal 0.2-2.0 [facility] Comment on above: Performed By: #### 1 [id number], [id number], 1882361, [id number], 8708363, 7221083, 3676882, 4106588 #### [facility] (DEFAULT) [address] [place] [address] 22745 Eos Abs# 0.1 x10 Normal 0.0-0.4 [facility] Comment on above: Performed By: #### 1 [id number], [id number], 5780119, 2256691954, 9324385, 0836651, 7037885, 3282827 #### [facility] (DEFAULT) [address] [place] [address] Eosinophils/100 WBC (Bld) 1.1 % Normal 0.9-4.0 [facility] Comment on above: Performed By: #### 1 [id number], [id number], 9549810, [id number], 9216233, 4425550, 4414290, 2050352 #### [facility] (DEFAULT) [address] [place] [address] 51266 Lymph Abs# 2.1 x10 Normal 1.3-2.9 [facility] Comment on above: Performed By: #### 1 1441929, [id number], 2693161, [id number], 1133809, 3629224, 0312124, 7306843 #### [facility] (DEFAULT) [address] [place] [address] Lymphocytes/100 WBC (Bld) 28 % Normal 14-48 [facility] Comment on above: Performed By: #### 1 0760400, 1144718271, 2884390, 7080969875, 4292376, 7451570, 7343898, 3452264 #### [facility] (DEFAULT) [address] [place] [address] [place] Abs# 0.6 x10 Normal 0.0-0.8 [facility] Comment on above: Performed By: #### 1 1942026, 0070402048, 0320948, 5478897898, 1369006, 0343752, 1297817, 3801061 #### [facility] (DEFAULT) [address] [place] [address] Neut Abs# 4.8 x10 Normal 1.5-9.2 [facility] Comment on above: Performed By: #### 1 3806391, 1440893615, 0126797, 2041324980, 2118677, 1123868, 5932416, 3049518 #### [facility] (DEFAULT) [address] [place] [address] Neutrophils/100 WBC (Bld) 63 % Normal 44-88 [facility] Comment on above: Performed By: #### 1 6472904, 5560387012, 6436251, 3370601756, 8395793, 4796018, 1447623, 4890679 #### [facility] (DEFAULT) [address] [place] [address] Amylaseon 02-27-2024 Amylase [Catalytic activity/Vol] 51.0 U/L Normal 28.0-100.0 [facility] Comment on above: Performed By: #### 1 2097978, 4984705653, 6083535, 4952830674, 2482045, 9183761, 2026356, 7140636 ####[facility] (DEFAULT)[address] [place] [address] Anesthesia Noteon 02-27-2024 Anesthesia Note Patient: LIOR [...] on: 02/27/2024 12:58 EDT] Juliano Peterson DO [facility] Anesthesia Note Patient: LIOR JACQUES IN MAXINE [...] history): All Problems Anxiety / SNOMED CT 94615199 / Confirmed Arthritis of left knee / SNOMED CT 498676063530913 / Confirmed Body mass index 40+ - severely obese / SNOMED CT 2535879223 / Confirmed Genital warts / SNOMED CT 606138946 / Confirmed History of arthroscopy of knee joint / SNOMED CT 6792856691 / Confirmed History of bariatric surgical procedure. / SNOMED CT 2336914512 / Confirmed Gastric bypass status for obesity / SNOMED CT 8448984765 / Confirmed H/O syncope / SNOMED CT 5396742038 / Confirmed Hypokalemia / SNOMED CT 81213418 / Confirmed Hypomagnesemia / SNOMED CT 900804328 / Confirmed Mixed anxiety and depressive disorder / SNOMED CT 561020035 / Confirmed Morbid obesity / SNOMED CT 537718633 / Confirmed Peripheral venous insufficiency / SNOMED CT 53428577 / Confirmed Sacroiliac joint pain / SNOMED CT 797509261 / Confirmed Varicose veins of left lower limb / SNOMED CT 007059890848335 / Confirmed Resolved: / SNOMED CT 359449926 Histories Family History: Clotting disorder Mother Diabetes mellitus type 2 Father Grandmother (Paternal) High blood pressure Father PVD - Peripheral vascular disease Mother GERD - Gastro-esophageal reflux disease Father Procedure history: CT guided nerve block (5749309255) on 01/12/2024 at 33 Years. Comments: 01/12/2024 11:39 LUKET - Cuong Chowdary MA LEFT GENICULAR microphlebectomy in the month of 07/2017 at 27 Years. 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 section (27556451) on 11/10/2014 at 24 Years. section (69379428) on 06/29/2012 at 21 Years. Gastric band (9626696441). Social History Electronic Cigarette/Vaping Assessment Electronic Cigarette [...] (FEB 26 (more content not included)... Normal [facility] CBC w/ Auto Diffon Erythrocyte distribution width (RBC) [Ratio] 13.3 % Normal 11.5-15.0 [facility] Comment on above: Performed By: #### 1 0233925, 4200745710, 4610028, 6191480215, 3688974, 2435989, 7767615, 9565455 #### [facility] (DEFAULT) [address] [place] [address] Hematocrit (Bld) [Volume fraction] 42.2 % High 33.7-40.4 [facility] Comment on above: Performed By: #### 1 0103139, 2418301480, 8309988, 3175609814, 5164058, 2523067, 3684515, 2770137 #### [facility] (DEFAULT) [address] [place] [address] Hemoglobin (Bld) [Mass/Vol] 14.3 g/dL Normal 11.3-15.9 [facility] Comment on above: Performed By: #### 1 9559183, 8828337942, 9456198, 7208253609, 5687360, 2875112, 8544435, 7162058 #### [facility] (DEFAULT) [address] [place] [address] MCH (RBC) [Entitic mass] 30 pg Normal 24-34 [facility] Comment on above: Performed By: #### 1 1543292, 4969486440, 8898808, 4569595386, 0076322, 1044196, 3495611, 0045766 #### [facility] (DEFAULT) [address] [place] [address] MCHC (RBC) [Mass/Vol] 34 g/dL Normal 26-37 [facility] Comment on above: Performed By: #### 1 7179603, 1242694143, 3727384, 2018446072, 4971443, 9690196, 3824767, 5820019 #### [facility] (DEFAULT) [address] [place] [address] MCV (RBC) [Entitic vol] 90 fL Normal 81-100 [facility] Comment on above: Performed By: #### 1 6495625, 4543872229, 6537442, 6509710443, 8237856, 4385604, 2330259, 2426807 #### [facility] (DEFAULT) [address] [place] [address] Platelet 243 x10 Normal 138-427 [facility] Comment on above: Performed By: #### 1 7867570, 0221037446, 7501389, 4962175678, 0864320, 5561236, 9231653, 2582459 #### [facility] (DEFAULT) [address] [place] [address]85[address] Platelet mean volume (Bld) [Entitic vol] 8.0 fL Normal 6.3-10.2 [facility] Comment on above: Performed By: #### 1 2938874, 6831808096, 4995844, 7826306370, 9499443, 7320326, 8917196, 3609440 #### [facility] (DEFAULT) [address] [place] [address] RBC 4.70 x10 Normal 3.70-5.30 [facility] Comment on above: Performed By: #### 1 2045003, 3579034299, 9747906, 0343177528, 9222358, 3062777, 5102656, 0344439 #### [facility] (DEFAULT) [address] [place] [address] WBC 7.7 x10 Normal 3.5-10.5 [facility] Comment on above: Performed By: #### 1 5416458, 3184550123, 5577338, 9851305625, 8301982, 7773658, 4849330, 2659115 #### [facility] (DEFAULT) [address] [place] [address] Man Diff? Auto Invalid Interpretation Code [facility] Comment on above: Performed By: #### 1 4457850, 2037748078, 7744503, 2072019501, 7765875, 5587954, 6133715, 5007459 #### [facility] (DEFAULT) [address] [place] [address] CMP Standardon 02-27-2024 eGFR Non AA >60 Invalid Interpretation Code [facility] Comment on above: Performed By: #### 1 9234553, 4125109257, 6939702, 3865063779, 9828000, 0736883, 8434957, 8838954 #### [facility] (DEFAULT) [address] [place] [address] eGFR AA >60 Invalid Interpretation Code [facility] Comment on above: Performed By: #### 1 1660485, 9028719851, 7298634, 7567529766, 7136591, 0193774, 8601808, 6776652 #### [facility] (DEFAULT) [address] [place] [address] Albumin [Mass/Vol] 4.2 g/dL Normal 3.5-5.0 [facility] Comment on above: Performed By: #### 1 4900570, 2188486796, 5552244, 7460087448, 7540414, 1162689, 1270393, 0456177 #### [facility] (DEFAULT) [address] [place] [address] Albumin/Globulin [Mass ratio] 1.4 {ratio} Normal 1.4-2.6 [facility] Comment on above: Performed By: #### 1 2684994, 6618986973, 0784854, 5308294602, 0926459, 2683997, 8720942, 7001427 #### [facility] (DEFAULT) [address] [place] [address]107 Alk Phos 56 IU/L Normal 32-91 [facility] Comment on above: Performed By: #### 1 5061157, 9741660654, 7659945, 5034970358, 4757502, 4574597, 3132506, 9812502 #### [facility] (DEFAULT) [address] [place] [address] 72513 ALT [Catalytic activity/Vol] 22.0 U/L Normal 14.0-54.0 [facility] Comment on above: Performed By: #### 1 2455928, 6542226739, 4000360, 4874723092, 7575867, 0632517, 6263540, 1027114 #### [facility] (DEFAULT) [address] [place] [address] 79676 Anion gap [Moles/Vol] 10.5 mmol/L Normal 5.0-19.0 [facility] Comment on above: Performed By: #### 1 6725679, 5310144374, 6847760, 6142311025, 6243469, 7585148, 6241486, 9890458 #### [facility] (DEFAULT) [address] [place] [address] 23004 AST [Catalytic activity/Vol] 26 U/L Normal 15-41 [facility] Comment on above: Performed By: #### 1 9018332, 5281124969, 5151333, 3018405681, 3854838, 6460143, 2385225, 5329589 #### [facility] (DEFAULT) [address] [place] [address] 75310 Bili Total 0.8 mg/dL Normal 0.3-1.2 [facility] Comment on above: Performed By: #### 1 9932272, 4766299955, 2333255, 2740506241, 4318432, 1008031, 4053143, 0221481 #### [facility] (DEFAULT) [address] [place] [address] 23766 Calcium [Mass/Vol] 9.0 mg/dL Normal 8.9-10.3 [facility] Comment on above: Performed By: #### 1 0788233, 4648299364, 5377464, 5061199794, 4863886, 0687545, 4077304, 3371667 #### [facility] (DEFAULT) [address] [place] [address] 39041 Chloride [Moles/Vol] 105 mmol/L Normal 101-111 [facility] Comment on above: Performed By: #### 1 1143737, 6464385476, 5789431, 6256875922, 0435223, 1240374, 3258068, 3705706 #### [facility] (DEFAULT) [address] [place] [address] 75506 CO2 [Moles/Vol] 24 mmol/L Normal 21-32 [facility] Comment on above: Performed By: #### 1 7293400, 9952217249, 7048119, 3576138367, 7575954, 8325767, 8859149, 3830167 #### [facility] (DEFAULT) [address] [place] [address]336 Creatinine [Mass/Vol] 0.68 mg/dL Normal 0.60-1.30 [facility] Comment on above: Performed By: #### 1 7167062, 6593875592, 3877932, 9036339035, 4309094, 6293864, 9519072, 9463253 #### [facility] (DEFAULT) [address] [place] [address] 90699 Globulin (S) [Mass/Vol] 3.0 g/dL Normal 1.5-4.3 [facility] Comment on above: Performed By: #### 1 7592363, 7586662417, 9477941, 6837562839, 2367971, 4948990, 4079847, 2127533 #### [facility] (DEFAULT) [address] [place] [address] 90520 Glucose [Mass/Vol] 93.0 mg/dL Normal 74.0-118.0 [facility] Comment on above: Performed By: #### 1 7970933, 1251308252, 2364095, 5570342441, 7570197, 5148485, 2771157, 5703008 #### [facility] (DEFAULT) [address] [place] [address] 06317 Osmolality 270 mOsm/L Invalid Interpretation Code [facility] Comment on above: Performed By: #### 1 6577118, 4744230134, 9019282, 0192856151, 4443879, 3475012, 8409077, 8457568 #### [facility] (DEFAULT) [address] [place] [address] 35151 Potassium [Moles/Vol] 3.5 mmol/L Low 3.6-5.1 [facility] Comment on above: Performed By: #### 1 5496425, 5763810987, 8216625, 2685685261, 4077215, 9378424, 5802772, 0684395 #### [facility] (DEFAULT) [address] [place] [address] 54437 Protein [Mass/Vol] 7.2 g/dL Normal 6.5-8.1 [facility] Comment on above: Performed By: #### 1 9699577, 3729824154, 5959798, 8819087309, 9748276, 7359517, 9159453, 7242504 #### [facility] (DEFAULT) [address] [place] [address] 18026 Sodium [Moles/Vol] 136.0 mmol/L Normal 136.0-144 . 0 [facility] Comment on above: Performed By: #### 1 7566362, 6956631148, 5155969, 1933862131, 1222421, 3029178, 4575960, 6809022 #### [facility] (DEFAULT) [address] [place] [address] 47700 Urea nitrogen [Mass/Vol] 9 mg/dL Normal 8-26 [facility] Comment on above: Performed By: #### 1 6289656, 3172123937, 6595715, 4744321924, 7801761, 6334432, 8070482, 0349591 #### [facility] (DEFAULT) [address] [place] [address] Urea nitrogen/Creatinine [Mass ratio] 13.2 mg/mg Normal 4.6-16.2 [facility] Comment on above: Performed By: #### 1 2277296, 4971322366, 5667473, 8629699188, 7856648, 2324386, 6200035, 6009667 #### [facility] (DEFAULT) [address] [place] [address] CT PE Chest/Abdomen/Pelvis w / Contraston 02-27-2024 [...] MD 02/27/24 2:37 am Technologist: CB Thomas [facility] ED Clinical Summaryon 2023 ED Clinical Summary [facility] - Emergency Department [address] [place], [place] [address] ED Clinical Summary PERSON INFORMATION Name: LUCILA JACQUES Age: 33 Years Sex: FEMALE : 1990 MRN: Acct#: Visit Reason: Abdominal pain; ACUTE CHOLECYSTITIS Arrival: 02/26/2024 22:40:28 Discharge: LOS: 000 09:38 Check In: 02/26/2024 22:40:28 Checkout:02/27/2024 08:18:49 Address: [address] [place] [address] PCP: Provider, None PROVIDER INFORMATION Provider Role Assigned Unassigned Tamika Alvarenga RN ED Nurse 02/26/2024 23:12:50 Param Michelle DO ED Provider 02/26/2024 23:38:41 Abdulkadir Maradiaga CUSTOM STUDIO COORDINATOR Nurse 02/27/2024 07:25:13 VITALS INFORMATION Vital Sign [...] recorded.. Surgical history: CT guided nerve block (2420458021) on 01/12/2024 at 33 Years. Comments: 01/12/2024 11:39 EDT - Cuong Chowdary MA LEFT GENICULAR microphlebectomy in the month of 07/2017 at 27 Years. Comments: 03/19/2019 10:05 EDT - Margaret Perera LPN left leg Gastric sleeve (9312521225) in the month of 07/2016 at 26 Years. section (08917216) on 11/10/2014 at 24 Years. section (60295142) on 06/29/2012 at 21 Years. Gastric band (9866521543).. Family history: Clotting disorder Mother Diabetes mellitus type 2 (more content not included)... [facility] ED Note - Physicianon 2023 ED Note [...] recorded.. Surgical history: CT guided nerve block (3397534067) on 01/12/2024 at 33 Years. Comments: 01/12/2024 11:39 EDT - Cuong Chowdary MA LEFT GENICULAR microphlebectomy in the month of 07/2017 at 27 Years. Comments: 03/19/2019 10:05 EDT - Margaret Perera RAILWAY SWITCH OPERATOR left leg Gastric sleeve (5349358586) in the month of 07/2016 at 26 Years. section (97095708) on 11/10/2014 at 24 Years. section (38997518) on 06/29/2012 at 21 Years. Gastric band (5363390184).. Family history: Clotting disorder Mother Diabetes mellitus [...] Respiratory: Lungs ar (more content not included)... [facility] ED Note-Nursingon 02-27-2024 ED Note-Nursing Pt arrives to ED alvaro m 7 complaining of abdominal pain. Pt states it has been going on for a few days, Pt has history of gastric bypass done at a [facility] facility. Pt denies any other complaints. [facility] ED Patient Education Noteon 02-27-2024 ED Patient Education Note Education Materials [facility] ED Patient Summaryon 024 ED Patient Summary [facility] - Emergency Department [address] [place] [address] PATIENT DISCHARGE INSTRUCTIONS Patient Information Name: LUCILA JACQUES Age: 33 Years Date of : 1990 Reason For Visit: Abdominal pain; ACUTE CHOLECYSTITIS Arrival Time: 02/26/2024 22:40:28 Primary Care Physician: Provider, None Attending Physician: Maurizio Mast MD Comment: Visit Diagnosis: Diagnoses This Visit Abdominal pain ([id number]) Acute cholecystitis (K81.0) Biliary colic (K80.50) The Pharmacy at [facility] is open Monday through Monday from [...] alcohol and/or drug addiction problems; contact the [facility] 17/04 Crisis Hotline -Text 4HADT xt 150415. If you received any narcotics, sedation, or [...] and treatment you received today in the [facility] Emergency Department were for an urgent problem and are not intended as complete care. It is important for you to follow up with a doctor, nurse practitioner, or physician?s early childhood teacher assistant for ongoing care. If your symptoms [...] so we can reach you if necessary. [facility] Emergency Department has provided you with a complete list of medications post discharge. Please inform your manager primary/provider of your visit and for further instruction [...] for D (more content not included)... Normal [facility] Inpatient Patient Summaryon 02-27-2024 Inpatient Patient Summary [place] [id number] Patient Discharge Instructions Name: LUCILA JACQUES : 1990 Patient Address: [address] [place] [address] Primary Care Provider: Name: Provider, None Phone: After you are discharged if you find you have any questions, please, call [phone] ext [phone] to speak to a nurse. The Pharmacy at [facility] is open Monday through Monday from [...] alcohol and/or drug addiction problems; contact the [facility] 17/04 Crisis Hotline -Text 4HOPE to 280454. If you received any narcotics, sedation, or [...] business decisions or sign any legal documents [facility] would like to thank you for allowing us to assist you with your healthcare needs. The following includes patient education materials and information regarding your injury/illness. LUCILA JACQUES has been given the following list of follow-up instructions, prescriptions, and patient education materials: Follow-up Instructions With: Address: When: Peter Booth [address] [place] [address], [place] [address] Business (1) In 2 weeks 03/12/2024 Comments: Call for follow up appointment With: Address: When: Loni Provider [address] [place] [address] Medications During the course of your visit, your medication list was updated with the most current information. The details of those changes are reflected below: New Medications [id number], [address] [place], [place] [id number], [phone] acetaminophen-hydrocodone (acetaminophen-hydrocodone 325 mg-5 mg oral tablet) [...] problems or questions, (more content not included)... [facility] L Specimen: [id number] Received: 02/28/24 Status: MICHAEL Young Num: [id number] Spec Type: Surgical Subm Dr: Peter Booth MD Tissues: A Gallbladder (GALLBLADDER) Procedures: HE/2, Gross/Micro L3 Age/ Patient Sex Location Account Attending Physician Lucila Jacques 33/F [facility] [id number] Maurizio Mast MD SPEC NUM: [id number] RECD: 02/28/24 STATUS: MICHAEL YOUNG NUM: [id number] NIELS: 02/27/[address]: Peter Booth MD ENTERED: 02/28/[address] [facility] [address]: Edilberto,Lab SPEC TYPE: Surgical DEPT: [...] gallbladder wall measures 0.1 cm in thickness. Bench Lathe Operator sections are submitted in A1 (gallbladder) and A2 (lymph node). CPT Codes 65832 Specimen: [id number] Received: 02/28/24-123 Status: MICHAEL Young Num: [id number] Spec Type: Surgical Subm Dr: Peter Booth MD Tissues: A Gallbladder (GALLBLADDER) Procedures: HE/2, Gross/Micro L3 Patient: Lucila Jacques [id number] (Continued) Signed (signature on file) Domenic Hopper MD 02/29/24 9305 Normal [facility] Lactic Acidon 02-27-2024 Lactic Acid 15.3 mg/dL Normal 4.5-19.8 [facility] Comment on above: Performed By: #### 2 642809 ####[facility] (DEFAULT)[address] [place] [address] Lipaseon 02-27-2024 Lipase Level 30.0 IU/L Normal 22.0-51.0 [facility] Comment on above: Performed By: #### 1 4772051, 2707545039, 8828667, 8944917461, 0028365, 3051233, 9742164, 0562995 ####[facility] (DEFAULT)[address] [place] [address] MAGR Intraoperative Recordon 02-27-2024 MAGR Intraoperative Record MAGR Intra-Op Record Summary Primary Physician: Peter Booth MD Finalized Date/Time: 02/27/24 12:38:12 Pt. Name: JACQUES LUCILA GOODMAN /Sex: 1990 FEMALE Med Rec #: [id number] Physician: Param Michelle DO Financial #: [id number] Pt. Type: O Room/Bed: [facility] Admit/Disch: 02/26/24 22:40:28 - Institution: Case [...] Role Performed Surgeon - Primary Anesthesiologist of Appliance Worker Record Time In 02/27/24 11:31:00 02/27/24 11:01:00 02/27/24 11:01:00 Time Out 02/27/24 12:19:00 02/27/24 12:36:00 02/27/24 12:36:00 Procedure Cholecystectomy Cholecystectomy Cholecystectomy Laparoscopic Laparoscopic Laparoscopic Last Modified By: Bre Spaulding RN, Debra RN Myers, Debra RN 02/27/24 12:35:49 02/27/24 12:35:49 02/27/24 12:35:49 Entry 4 Entry 5 Entry 6 Case Attendee Dina Malcolm CST, Will Ortiz CST, CST, CST CSFMadison Role Performed Wood Shop Teacher Wood Shop Teacher Scrub Personnel Time In 02/27/24 11:01:00 02/27/24 [...] Peterson DO, Bre Spaulding RN, Dina Malcolm FUNERAL DRIVER, Tru FUNERAL DRIVER, Marie LEBLANC CSFA, Will Miller FUNERAL DRIVER Last Modified By: Bre Spaulding RN 02/27/24 [...] Text: E.290 Eval (more content not included)... [facility] MAGR PACU Recordon MAGR PACU Record MAGR PACU Record [facility] Primary Physician: Peter Booth MD Finalized Date/Time: 02/27/24 14:07:36 Pt. Name: LUCILA JACQUES/Sex: 1990 FEMALE Med Rec #: [id number] Physician: Param Michelle DO Financial #: [id number] Pt. Type: O Room/Bed: [facility]/ Admit/Disch: 02/26/24 22:40:28 - Institution: PACU Case Times MAGR Entry 1 In PACU I 02/27/24 12:38:00 Discharge from PACU 02/27/24 13:40:00 I Last Modified By: Yarelis Schmitt RN 02/27/24 14:07:32 Finalized By: Yarelis Schmitt RN Document Signatures Signed By: Yarelis Schmitt RN 02/27/24 14:07 [facility] Magnesiumon 02-27-2024 Magnesium [Mass/Vol] 1.86 mg/dL Normal 1.80-2.50 [facility] Comment on above: Performed By: #### 1 8631391, 4846100907, 0268562, 3001435449, 1466451, 3570248, 6407700, 8491639 ####[facility] (DEFAULT)[address] [place] [address] Nutrition Noteon 02-27-2024 Nutrition Note Chart reviewed; 33 y o female diagnosed with s/p lap choly; diet order full liquids; patient with history of gastric bypass surgery ; no difficulties with chew/swallow identified on admit; encourage increase po as rachael; rec advance as rachael to regular soft diet; will monitor po with diet advance, wt/labs for changes; follow, assist prn. ts [facility] PTon 02-27-2024 INR Coag (PPP) [Relative time] 0.98 {INR} Normal 0.91-1.11 [facility] Comment on above: Performed By: #### 1 2545319, 6126395896, 6889659, 5633217122, 8035106, 9680756, 1419834, 7609797 ####[facility] (DEFAULT)[address] [place] [address] PT 10.2 second(s) Normal 9.7-11.8 [facility] Comment on above: Performed By: #### 1 0385388, 9498075198, 0421253, 5890121533, 0072496, 5748965, 1083988, 7749719 ####[facility] (DEFAULT)[address] [place] [address] Test Serum 1on Preg Serum Internal Control OK [facility] Comment on above: Performed By: #### 3 [id number] ####[facility] (DEFAULT)[address] [place] [address] Test Serum Qual Negative [facility] Comment on above: Performed By: #### 3 [id number] ####[facility] (DEFAULT)[address] [place] [address] TnI HSon 02-27-2024 Troponin I High Sensitivity 3.0 pg/mL Normal <=15.0 [facility] Comment on above: Performed By: #### 1 7133096, 5041494159, 1874403, 5453669831, 9806502, 9742811, 5632538, 9197457 ####[facility] (DEFAULT)[address] [place] [address] UA w Culture if Ind Standard on 02-27-2024 Breakpoint UA [facility] Comment on above: Performed By: #### 1 [id number] ####[facility] (DEFAULT)[address] [place] [address] Color (U) Yellow [facility] Comment on above: Performed By: #### 1 [id number] ####[facility] (DEFAULT)[address] [place] [address] Culture? Not Indicated Invalid Interpretation Code [facility] Comment on above: Result Comment: Resu lt created by rule GL_MAGR_ADD_UA_CULT1 Performed By: #### 1 [id number] ####[facility] (DEFAULT)[address] [place] [address] Glucose (U) [Mass/Vol] Negative [facility] Comment on above: Performed By: #### 1 [id number] ####[facility] (DEFAULT)[address] [place] [address] Ketones Ql (U) 40 [facility] Comment on above: Performed By: #### 1 [id number] ####[facility] (DEFAULT)[address] [place] [address] Micro? Not Indicated Invalid Interpretation Code [facility] Comment on above: Result Comment: Resu lt created by rule [email or web address]_MICRO Performed By: #### 1 [id number] ####[facility] (DEFAULT)[address] [place] [address] UA Bilirubin Negative [facility] Comment on above: Performed By: #### 1 [id number] ####[facility] (DEFAULT)[address] [place] [address] UA Blood Negative Normal [facility] Comment on above: Performed By: #### 1 [id number] ####[facility] (DEFAULT)[address] [place] [address] UA Clarity CLEAR Normal CLEAR [facility] Comment on above: Performed By: #### 1 [id number] ####[facility] (DEFAULT)[address] [place] [address] 83328 UA Leuk Est Negative Normal NEGATIVE [facility] Comment on above: Performed By: #### 1 [id number] ####[facility] (DEFAULT)[address] [place] [address] UA Nitrite Negative Normal NEGATIVE [facility] Comment on above: Performed By: #### 1 [id number] ####[facility] (DEFAULT)[address] [place] [address] 58092 UA pH 7.5 Normal 5-8 [facility] Comment on above: Performed By: #### 1 [id number] ####[facility] (DEFAULT)[address] [place] [address] UA Protein Negative Normal NEGATIVE [facility] Comment on above: Performed By: #### 1 [id number] ####[facility] (DEFAULT)[address] [place] [address]8880 UA Spec Grav 1.015 Normal 1.001-1.[address] [place] [address] Comment on above: Performed By: #### 1 [id number] ####[facility] (DEFAULT)[address] [place] [address] UA Urobilinogen 0.2 mg/dL Normal 0.2-1.0 [facility] Comment on above: Performed By: #### 1 [id number] ####[facility] (DEFAULT)[address] [place] [address]64 Urine Source Clean Catch Normal [facility] Comment on above: Performed By: #### 1 [id number] ####[facility] (DEFAULT)[address] [place] [address] 39753 US Gallbladderon 02-27-2024 US Gallbladder EXAM: US [...] Geovani Miranda MD 02/27/24 5:19 am Technologist: [facility] XR knee LT 4V*on 02-15-2024 XR knee LT 4V* [facility] [address] [place] [address] XRay Report Signed Patient: Lucila Jacques MR#: [id number] 33 : 1990 Acct:[id number] Age/Sex: 33 / F ADM Date: 02/15/24 Loc: [facility] Room: Type: [facility] Attending Dr: Santa Estrada II, MD Copies to: Santa Estrada MD Ordering Provider: Santa Estrada MD Date of Service: 02/15/24 XR/XR knee LT 4V*: M25.562 - Pain in left knee ([id number]) XR/XR pelvis 1-2V: M25.562 - Pain in [...] Palacio Jr., Clotilde02/15/2024 3:38 PM Dictation Location: [place] [address] Transcribed By: [facility] 02/15/24 1538 Dictated By: Haile Palacio Jr, DO 02/15/24 153 Signed By: 02/15/24 1538 [facility] Coding Summaryon 01-31-2024 Coding Summary HTMLBase 64 BzmxwwrnJGw0qBu+PGhlYWQ+PE1 ISGIgG97rbUDszT1yD3GXJApBWh eqYEWSYOhDRySqvdGdLO8ioQJfP XJu IC8+QP7tJRYgNcmlrZZbl6Z6bXK 9L54gdz4hEEgzlLP6EJIfTmKbpi pzn7pkkUc8NHtsIscxUnEi WHPlvS75AWY9hJ19Ad44pCJjoXE cz1gemCt6MvIgPWInTBU7kHvgAP jkc2AhISClI33zuDJdy2J5 RXPrwEplpBFmMuKufAK6pP4fFKw uvddxp9fppqvnWnm9et47gMXlb6 A8uVE7R9PovaC2YPOssSAy BamilAHLsQ9eriiae4otvqydMtK oFAEdXTg9ONi2STPgoBjsLoZtTE 17SQO7WBCfbwOwI7YiRXOs pNkiApF7g7O4Xy5LV4LZHindZ1G NTUFSWTwvdGQ+KO53io92Y1UrZf qdRyg7SPPfJNK5mID5bX6c NISvPUvik2O3mGK9P2SexfJzuk2 nq0geDUChRYmpY23qmPBkk8M5MZ WamMK8YJBdzTcdXcJmdP99 Oyc+DDYohJjxb7XoZoxsj4cod2j gcOu7DfyuBEQiifIfbIemIPY0y3 PgIh6eSIUpzUB4lVC6cW2e QdJdFwS8RVdgE820SyOpkYIfCqb oV18eB2NjvMJ+ASDtZhp4KXEklC pxXM3rG8UvBOCznlcxwNYb kKkwYC2zOZBtwkdtGVThrA4yAWO xS4j1XtDiKpX8XVvqT4FrPVVzod xnNl59eJ4yLuBcGdT8UQua X3OudqS3ELLyyDRtQEgkYXP6C24 kd0I0TFAnFITbDPF3mVX8wO4ppW lnbjogbGVmdDsgdmVydGlj ZPaePObxY562OOLezDdeOzYoDLf uZyBEYXRlOiAgMDUvMDgvMjAyND wvdGQ+WUTuEYE9nJkqCGSf kVUeGSinIn4luUyreKgeHI7nZLO mklebRZPwnK1jRNNgoOXfrUuzPU 0vSVUzflskx880RtAlHND3 CKRcwYElP3MzxV0bNnKoBXTjNZH oN0SycJJjTKjbF623GOwgLaT5ST JxltZkV7GeLSJkoQliXiY5 y7P7Io1Sm4RngmrgO2AwwUNjEvW yBimhGKm3I6WxHgmgvIH+PC90YW VlZG56RDs4OPI8cZksHYnx EWJxN0TnqI0aWuKnJVMfZDHsVwp +PHRhYmxlIHdpZHRoPScxMDAlJy OriHajKL4pAk8bVJSbASPh jJsniCVrIyYwc3wnBGOyREcbVB4 bjScpH2HzqEC0QZEsz6l4Ys00Z9 0xX0TbxES+DRHjdRM7wAO7 iS9eDoEhYtJ5ZRefD673UhXoqAN pLdqmm7chs3hajLb8YpV4MQEpja DrvGwqPDD0y1PlAa89Y64q IHdpZHRoPSIxNSUiIHZhbGlnbj0 tvJ3nKy1+WVPvbXM7gUC4uG3lJm WlGuI9XJbwZ312JmZeuMDk Ktnjj4ayw3mthNy0OpQvRWWrhjY oyJysJNJ6a4OwQd26A3WgaGltg2 RdErb2lp52tGIhk5M8yQT7 N4IjVBIympudpZUmfAnmFU9aYOG ceevcIRUupF6oAZEsM4b4YvRwFq L0HPqdY8DbgrE3KQKfyJZp GAQuqEPTaD7jiilwa8suaqwnPoW rRUUmKFl4LKx8NXZvbAfdUkUmUB R1KuP3PVG5cULrcH2ezFfz bcnhnH6dUyi+BAT7tKAnhXZXSL8 lOjwvdGQ+DMFgLXN9tWcdJRfzKS BwxS7sWCDyJ8m7JbPrBcO3 HEpqL2XarlP1ZFHqgQZwFBHcyCS EwR7nhgqbe2boujfdHeUxUPVkUY d2QRl1YIKoaSxjObCgETD8 HfH4YZE7uQJrfF3uxPtgdccfuJ9 wOyc+NhfwxOtqNEN9GAw2U9JgAk r4LQBpwGxyWD4luXVwULiy Wd8tgMmriQepNE4xBSNeuwpcn02 5GtMcl7dpJLRlsBWiOPzzIPR7N4 5jf5I3KLTiILLbBEC4mKA6 rL3fdOhukeetfRYjvWyteiRrvOc iXRpxZSzaI494EACehRoePdUeXY l9D6VwIdp2QTVwhCnkOJ8y aIDyYHmbHn3ruOpuaWgaIU0aXKS lkasjk564QoNuo0ouDEDsvIFlMQ ykYIR7S48dj8F0DEVsHNQh VMI3yNT8sR8eeRminbqgqYRpdIi xjwWwmJrtYKwkCLnwN143QRPquO coHnTkhIx1A0VmDsq5RYCt pLbgTL0evACqZOaiMx1zrYmktOp lGO3kNYRhqwkrq261VqDsg3uhQB BjjLFvHQgoALR0Y46bm7E4 EBKtSLOlLKN1eKI1oS3yeMxcrtg gbGVmdDsgdmVydGljYWwtYWxpZ2 46IHRvcDsnPlBhdGllbnQg LBljRWf4L1JzYwiyyOH+ZY11JVH jAF09oDKohZRgb6shcIh2TbHxNJ LeRYJ3hHgnEHikz3ViWXLm K82rnHXxt9X1BBYpfHsqvDPwVgB bhSF2pG8jPBbmsiugs4bntemiZe jbd8kmau18eE50P66oQKox UEMhLCWfYGGzNGIblPfsol8vcC5 wIi8+LFKnlVD1qQZ9bD2gEPIkMt H2BOckN267UnDaoOBxFrmw g1aag0tbvNu0PcF1MBHbpsJygIu rRRI7s8NpGx40W71pSQtoGVGrAI MbBUQzLNPboBwkoo3ucK8j Ii8+NCQylWE1qNB3jH7kUiNmVmE 9JKdyN303OlJraZUxZreqZ66tI2 JvdXA+NAGrAeu2PKGmcQjg BR2gvKMsTQywNq2sHHK7AzWaOrG xJNrzB4JiZYKcitfzrovgfDX8AQ GuZDAyjL96Gp8ivEcqCPJs eXQJbW9yitkzk1dlflbhDqNwIYA mFGk0XZr2XARxwKdpOjJuSVQ1Cl B9AQU7gMWkhY1boOaahtlx cX0lU0LnXGRmtisiVa48sO1tFoI bHuN5YJqmVff+DtPQDgdeZ9ESQK zEMdXZMRB4Q4RhLjt9BPWl eNahSI7seFBnSQcmXh4xgZsxoUj dRO2mAUVjrknkAHSvuM3tBCNmqT JedAcqKK6kLSLtaxyzy939 JdArSIA9MVIlfEIkZ3XxyU6tPuL rRCTzNOArR5XpdVVzDOsnM333CM auRhO4FQPggfCiL9PwCAAx nEhdFtU9o0N9Bt9cAE5hJc9mLUj 8AK26RE54nNYdw6G4eIF4E5PmMT NgbfvdqgwitXM5CXEyDKTc dH28cAPjPEcnDy8xh4X7w583HSY hNHXcjD12Gz2vlKyiEVRoxJYTwA 9cjolrg8qtgqxtLcXvMPGf LIo0CDb7VGYfnAqoQqPpNGE5KeK 6CDI3oHLxdO9fuOqilrezfV1rVt c+OzFhVLPyfeV9F0NtZed0 DWEywBpwLO1msORzWVrgWu4ohRu hkMxpZD3lIOCppnscMNIgtS6bUD PisCPowDxiEV3mYBGojxvd u443UrApVVO2DHJkcGMzK0PybP3 lMkLjKPKzAXEqF8CguEDkRVqlW6 27YXmmAdD2VLFaunTiM9Rh HILslHgmQnC9j7C9If4FAR3VFPL 0C5AjOvq1BHCylZicCX7mkUOmJN muAn5npWovyMkjRY5cTFSe mmldYETqqE7bEZKgxVNkuCrdLI5 tWQXqvhzhn897NtAtQDQ9FORefD XqW8VojP1jOcJbGRPwWOIl T8ShcYAdQNerN582KZxfThQ8JXA vkrYmH5EsEANpvKlaCbK3y7C7Re 5PUDwvdGQ+CV66vl36C0Ik VxigAhi5FXWgWKQ6jSS6yO3tTIM zUMrfg4L1hVV9G7WfrlFner0xx8 yqBJHcCIbfX33ozWNzr1O2 ARUayNT5RQRwyFvvPbGfaV48Yoa +JUHqsSflw0VzAzhgr3fgv9wacL b3ReTaGDHiscXmlLvwZPL7 g5YnTb48R54dFZjwDWSlSRVfGWF aEKArlHsciy9moO9zVo4+PGNvbC D3vRV9lT1aGxQeZkT0QXvo Z832ZuCdjHHeElstx5bxf5rceJz 3FlAyWZYfloYkgIivZQU4w0MqKa 62A7MeoPqyc3ErOcq7wa87 mFBpp4T3qPT5C6TzGGKcfgdptDW xwZyqFO4mLYVrxzgoHESgdA1gDA EzT0y8DmQeWuB9QDelU9Ma jrP3LWMheUOoRSZlfCCWeD2zepe sm8quoxvtVvGwMFPnSUh9EMk7FG OnvIjnNcIyXPM4GgC8WLD9 kADxcQ3dlBnzpoxahA1vAto+UGh 9f6grtWPcFZ2vtWY2DC25QR72qW Gpa9O5zRT1J0LpUVDpewir afmptCY4MTHlMVNldC33Mo0fpOa nOp4fBWChJCD5FKAisUYdG2ErzM 4mYdXcUWBtZTYzN4EarQDu OHyhI736BLcsZsL4BHNawoXvG9R wXVSvmTzmLoF1o9N9Qo3JPV44FE 19MR77jPIfc1S0pBK4K4Gu YAJqrrzvkakieUS3QBXiURPvxN7 3Eu7uuWplRj5hSMHuCHZ4UPXqrT MhR9KidP8yQtYgVCFwAPRb Y2FfrXIfKUtaQ244TAzzFsE3ZKE rrdWqF2GrUQEaaAyrSnV0r5F6Aa 2OGp12OY50YL09fXWsj4L8 dNV6Q6AaGKLvnqocvajgfRE9IYX tVVUoaO12Bl2fzYawAv5xTGElII D9EOBgmKUhA9KzkI9dAlRi WILsWXBsN5DtzNVjINagO744HGj yOhI6BYLgmmIzF9NyCFGtdLjfZd D2n2Y7Hh2MVTvzqaz5Y0Px PjwvdHI+SL27TQRhKC86uJVflLB dn5fpzGd8GrSnKAVxZKU5wNzvSQ omj1EeXWAgZ53tsRKdq0Q3 IGN (more content not included)... [facility] Progress Note - Provideron 0 01-29-2024 Progress Note - Provider [id number] [facility] Coding Summaryon 01-22-2024 Coding Summary HTMLBase 64 QuvzgvblIXv1yEj+PGhlYWQ+PE1 IUJMoH07psECglW7gY1NYXCiYIo toOUDNQUzWWbNuatPxOR1baOMrY XJu IC8+NL1hGLMlTnxwkWUhn7E1vMW 1L53qwr0lVCdczXD6UWFkCmMayh due7madWr2NNjbOuynQaRz DISnvK47ROF2jQ59Rh99tUBfnZT hs9fvfWe5AbTfFZAaSDL6gSfdQG rxq0QtRZXcQ88xqDTfu0B5 JZMcfZipjDXzSxSecBA4hB4zQPt trxoyd9efmaynLwh2hx28yUWgu0 U4aYW7U1BgaeT9TGTvdIBc KmezeQPJcH1wvrgeo6pxmtnmYdC iPAYaRPl6DJn7WYFsjIycDmIwUA 38CMV2YQNqapVeE9IlUPWo hDzzZoA8o9W9Ck9NI1ASObdxD7D NTUFSWTwvdGQ+XS91cc86L0LjVl olTxu3IQVeHFV0gUH2nV2j GJQvVXwuk3Y8yPN5K1SrfjRruh7 rj3pkPEDkCDroD79qeVXmg2Z1QB MyaEG8KRLfjFjoUaNaxQ42 Oyc+RJAqfUddl3XsXgpko6iyf7z ypOt4LngkICSlheTujHsqWFU8r0 NvBc3vPRBrsVH5rPL2aP2m XuPwDhS9XSkgD341QtOqzDAtLjl oI75oQ7TffGB+FDEmFyk7FMDulZ onYB1oB6ExVSJeraiscWCk nPjkOK1fVLPqhjzcJNGgjD3tMHJ sY1w0OdNeTzG0OLwqV1JrTAKzzl uaDf38yA2eWgDdAwA2NBxz M6RjfwC3UKEyvIWkKApfDDQ3U17 gs1Z3WNLcZKYlMNQ5sTE7eM0ynO lnbjogbGVmdDsgdmVydGlj XSvuRTcnJ191OVSttCfhAbNsQGy uZyBEYXRlOiAgMDQvMjkvMjAyND wvdGQ+MTKvCYT8wUvqKOJn wCHaLTocXo5imYdnyVtjSX1fKYF buoygCPKomL5kWPLosPVidLhgIB 7iUCXaeicsl580PcLzCYN3 IXOvwNAmG5PgiI5pAtFbERAdTPC zF8JzqWYnTGfxU886UTggTuP0PD ZyfdBnJ0MsMDJefJoyYjA6 f8P3Mq6Po2XwrgndG2QjiAWvNjG cItzxLCl5V8DcFdjyzKQ+PC90YW WcLI62MKy8DHW7pFarODgv ALYzH6FhtQ8zTcTqQJPmCQEeQlf +PHRhYmxlIHdpZHRoPScxMDAlJy OilIshEL6iTt8fCJHsYJJu qSnktCBlNiLjs8ahKBHmTYojNW1 ftLjqZ7SoqZB9KVCpm4c1Qe62V6 5sT4CtlXJ+LIStjGW9sQN0 xF5ySwKkWrJ0ORhcM111LbZjqSF uOqpbx0era8sjjLf4DpB7FHQhsf QojSnsSLS6g1NfCj02W19s IHdpZHRoPSIxNSUiIHZhbGlnbj0 gvQ9gRe9+DRXgmNF2rYE2gV7fQx MbOwS7GKhbD318IcUhvNOv Kqezn5xnx8xulLq9EgZkGMJvpgH itYdrNYT9f4HmLf59N1OteMdwi1 GhZff8jp04lUNwy5H4oYY9 A8UrSSKkxyyrfODjjXujEG5aLKT eijhcHZQflQ0mVKYvP6v7ZnHaBz M5SGjvG4FkgmU8ZSNggKAi NOTjgQHLeV3vabxxb2etffreHiX gCYYfWIc0CGe1DJPycCcgUoCdNC B1IgF6WUR5cRErvV5uxUbr aceapZ4eLrm+DFL6dXYvfXFHSP9 lOjwvdGQ+AROsIFZ3bQytSXvsTQ GlsY3zBROuA9v2XuFaVbW1 RPwqZ1JhvxA7MOJroFUfGIAsgZQ TsP8bvxqct7jvpxqqCkWlKAIcUV q3FVp6GTFztIjgCjZdRIY7 JqV4TSB2wBYzlH4igTofkkvgrC3 wOyc+GqjweLirHAA1KVy3F3CwKv u6JRFbpTvvNI3azEAfJShe Bf7nyMhslCftVC6lPNTrczokw01 2UjUpt5gyASMepYOpUKqdMOC4E6 6jv8L2HJTwUANtZID2cOD7 pX0atPqtjidkkQCajKprjcMzxGt dNFwnHPbxZ809RKSifXskIfDzFB r1C2PlCqt2QJQhcJvlXV2n yXTaWUroUf1vxLqunHfhJS7kOKI mmatxn889EcDje0inIQIayGXaHW ixWLF3U67ad6R7YPRcPJWy DSJ6iSG6dI7szRturqrhmSUmeOv hlsOztQiwIDuoTPxkS581PDXmwJ qtTaEieOd1X2CtTae1JQSh cQeqRS3cgNHhHYmvRf2pqOrrcPj cIF7jMNQwvleyb941FeOrj6mkSQ SyzKEeIPlzTKN6V15po3A1 SLWsNZFnQBM4zEU2lA3fuTggroz gbGVmdDsgdmVydGljYWwtYWxpZ2 46IHRvcDsnPlBhdGllbnQg OLwrNFx4R4BiBzuvzIH+ZC65QWZ nPO65qAXeeUWel5svpYn4PdGwMI OeXIF6nXonDUkpf6WrRHVm D71uyLEpf4T4FTYqaRlthPKiRjE afZO8eU0fDTukenesk5oqcwghSf zzy1quva30mT53E39vBEjp UCXdYBUcPTKcCEUbyArxem6jdW9 wIi8+WXYhrRO9nGK5eJ4fYALxWd J4SFblQ103YaUfsXXlNzny h7shd0rnoIp8RjZ3WBCwprYziFk mHDR1c0PhHx65R27yHMnaDZFdHZ CfUGEgSDVhuLfyie8beR8k Ii8+WCQqgKD7rBR0vJ7nNlVxHzX 7TSlvR926EhKixMNtHvtfT14yV3 JvdXA+VUEpSuq7EZCgeKzo JL3wiSOvHOxwRf2ePCI4NoTjSaZ dCPkgM2SxGGLppqbvvwjsyXI8JH HvHIAosS50Np0whEiaLRBs xXDDhU0fjudep7smnzrqMzHaNRE bLDr0UKw8NEReuQhjBjLsCKT6Sc I0QFH7gPSpvO8luRqvteaq eQ8fJ1MeKNCeijiyXk79nD9gVqA oMjJ8XVtbIpa+LhBVQthuI6MDZQ lTCiBMSBT5Q2NzTbl6VWFb hOvbYH7drPSoLUiwMz0dfOiofQr aML8eHPHmevosJJVyyN3iEJSftQ BjkTvgUZ5wWSVttcvoy840 KsSjTWB2YTRybLPyB9LqiV7aNqN zBSIsFBSsW6EikUTfHHnaQ991ZW hvTiY5VDQwelMaU5CeDWPh zJxkHqM2i8V1Pl7bPB9gBe6tMYd 2GK65KG78vVMkt2S9cOX5O1TiLN LiitdeiugwyYI9WWGsGIWh cF20mTRqRCsuCd4tz9C8b008MWO tCJMbnD63Ij6wtNnjGLGpxFKNvY 4raftmy0eevvfgGhGxHHCx RRu4PBw0NNLakWkoAvXsYVP4TyA 6OTA3oQOoqF0aaWoeqtxorG3qTv c+WzBuDNHefoS9P0OvVsk6 RXVmiXfqTX8bwZOuGNssLb0ctBf tiKhmGV9sNIGhmkscEZQlqZ8rBD CiuZRsbPgpLC2fZLRwrkic g782WeRoHLA1VVFuvWZpY1OllR2 uNlCdQKVwIQPlL3WylGCjZPceE3 55FXmqXfT9BPJjpvYdS8Yk USSgvNyyGnA9i6F4Rc9WKF1IILT 7K3ZdDow1MCCydIbtGN7vjULzBG okVc3rlFprcTecWX6hIXMu mfukKOCrdE8kKVQiuRBraNbvOA6 vPRNujwqbc890LgTyGMX5GBFngV VfB4KmzD6wUpOjQXNxYTDh G2OorUIvFIqfQ385AYbdJkJ0SBA iljGfJ2RxUDRrmTmkExA4n9M4Tl 8YLIuuA4CtT5KleRvpmRM+ WS21jy89Z4IzQafnHbn7GHEpPLL 7jRP0rU7kDWLwESnni3K7iUL5S2 RltuOuew5bm4npPEJjQFep W83dkRScz3D9TDWmsUS4QAOmmMo oOoKhtK10Shg+BUStbGnqf2OaJb hpd3mks1zqePk8ImLdPNDp thGfxBzaPHU6i0PlTw64Q01lZSd lVWFfRJEtJZRuANHipJxarq3lrN 9wIi8+KHPcwLM6lSM7nC5k SvEyBlD4AMalZ395ZgLltGQmTzp jp1svd7qvgOp2BoMvIHBihdQshS snBFV7l7UgRs09Y6FojIms i7XaIdm7tu93qVZij7P3uTN7E6G yCNOtuhcryUMaeQzvBV1lGSTkyk noAIGasU4qDKYlX9s3OuUe FuP6WTvsS2ZygiQ6TGVraSWpIII vrITFsQ2ygnweu0vyzvjiBsKfIX FmDEf4BDt0SQGywFzhFgQf UPO2UgS4SJC0dYZivZ7ywTnlgcy teN2rHtx+VIy2n7fvsKMxEO9vxG S6VW05PK24hXQrg6V0gSL5 N3EiGOEjgskoxwcowIZ2LFKzKZP ngB88Hc5cuJqoAa0fPWXgJLO5KU DxzHRoC9MwxX1uLpZgRLZo XPCcO1QakGXhATvaM272MNouWfW 9JKAxlwCjC9HtYZXypKttQsH0l3 P8Za6XIY35CC67XP81dJNs q2F1xDW2S6XrQTUqectndrjcgSN 6VZRtZRUggQ24Xb5irLvdYd1cEJ SuPLO4BEFtgKCiW4PitE3f DrNxKTDeMFXqV5GlsXWtYMwgZ01 2KGxeOtC0QLGrohXhN7TjTTOzvQ gtIuJ8n5X3Ur7RRf57JX76 RN79sBHjf6O8aED5I4IbTIRgdgu wgximnEA6HLWvQAFdyL90Kd0fpO txMf0lNSQfPQW9DFGjwYDw F9NutM1wKfIvKMJnCKHeM5LecGW rCRhwM553BFhoCdE2HAJlnhKvU4 OkZRPdoDuqLlC0k3O5Zb2E TTywzrm2T5KjWkxedBF+HI87LYQ lWC98wPUzuDViy9jeuCn0FiYgYC XvOAU4bKoqIJhuz4LiYOLe Y29 (more content not included)... [facility] Coding Summary HTMLBase 64 QannbnqtDLn6uMe+PGhlYWQ+PE1 YQWCjR22wzDQgxI5mC5FBJXsCYl vnIALMKVtKXeShurYnZO5duIKnF XJu IC8+ZM2yIVYaAsgiiPSku6D9jHC 5P22wmb2sKMtziPP0JOYwYvVvkw gyd6nteQy2HKymErlbErKl NKFyeV79KXV6vG78Fq97pXIhgHM dh5zctQp0BdFjOKAkRGU8aQbwGK hxn9MlPJMcW00wiGJqz9A5 KWKpiVqiqGVrEoPjsUK4fQ1kXBt boikeu1zdlayeSub9oj82lAQny2 Q1cDC1L7QwjlG6WAWymTHo CmkroVOVkD1mbvtzc8ierrmbOzA sJGCaZCs3ZYu6OQErrOydGoNeEY 91EIV9YHUiboEaP6BbAZKc aRefInD7q4T6Ix2AY7VJCpltT0E NTUFSWTwvdGQ+ZT25hx70V3IrQx zjMbm1BRXaWPR3lVP5eL6x HMWxPFvzr6Z3jZQ6R8QtdfAznm3 zc2apPHWpRVyiN42xkDKwx1Y6QF RtdSR0WIEpjNylYfUftP24 Oyc+YAQpaUotj7AxRdrls6uvo5b vgSe9RhppDJOtzqDbaAfsLLT6f5 YlEv5hJBTahYS0vYG8xD8g YkRlVdG4APglS427ErVtwCFiSla bO56gF1SouNM+JVXtVzi8NLYrgG tuZL3pX2LeTRMqiqunwUSb wRhyFB2zNPRazivwIJRpwI3qIYE oJ0z3SbLfTlH7YVpwA8CuNQQxqq dzHh26aG4hGiPzMpR9VLdj D7RwxmS0YRQowNIyYXkzZLD8G74 oq5E7FFYaCGSvLVR7lFC7vT1pxP lnbjogbGVmdDsgdmVydGlj FXpgPQhzN550PLJdsPwoFdHnFNr uZyBEYXRlOiAgMDQvMjkvMjAyND wvdGQ+CHUgPNG1eOhjWELw pWSlGLlrXz3xcOffvXhgQT7qIGM ngxnvGXWgnP5tVUAquGMuhAloEV 6oWMBctfaom814NuEmRYX2 NCCmoVQsS9TczP1aGhWlVNWhXQE sM3YpyDZbZJczN459ELpfShK8SL NvixFzO9LtXWItvLuyVtT6 o2Q9Ul0Ki8YjfabgT1AnzXAlEbC fBrmeUUo2T2HvKepriXS+PC90YW YsUW95LNm6PUZ0jVjrXHak JQAnT9FmbA7uMbJcXKRyQHZgZnt +PHRhYmxlIHdpZHRoPScxMDAlJy UmsIjyMW6rDx9gUGXcLFWn aJkgaNMeEnXxl0laZKDtMQiuVR8 unThnI0WhaRZ1ILKhq7m1Oo69D9 1wP3SquPT+PXPehVZ6pKX6 nH1xHqQcJdS7HFywV515OnTzaHF wWqxcf9zhn7ulaVx6AiW4WUWtmx YhmZrzGCP9s1XtLa90D52t IHdpZHRoPSIxNSUiIHZhbGlnbj0 izI5gEi9+WMSqcEF7fUX8zP5aRb EdOsY0MGzoA357DoIqpOMa Llofl7dxc0pxhYy0UzSdFVXcrgQ mvCoxWSY8n5RkBq58K5ZjkXyvd9 PtBml0ol17bEEaq2P2zOA3 T8GfTQXcuxrcbTVewOrjMK2eNJF gliffCRYfdC2bCBOtU0f6BzMzLr R7EBysQ3GdnwW9SQXazJLz SWJfdNWXeU3hichzn5yncgdbFrB vQXVoIRe7MJu4SYHjrXvzUkNqZF G4CqN9HDU7wTAqyI4oyYyc knbwuQ6oZsg+BSC1yUVheKLUOU1 lOjwvdGQ+YWWmVXG9kHrwRAkvNS PnkB2jJDFzU8t2XvUmUqR4 LLqcE2OizgE8ZICcnSBsZIGbrJT TtG0flnsnj8lmdrwmZiCtCNSsGW a6FBl7HVFvvMviDzPlGXM9 PsX4CFN0oOWfhW1mjJttkmztjC9 wOyc+MqmpeXwtPQR7HXj8J0FhDn e2AFSwdVvmLJ6qoLMjDLuw Gs1xeQocnNikCO0wKIYajyojr72 1IeRiz1ywOSWaaGNuTRiaQZD2W1 0dg1Y7XGLrAZThSVT0dHE5 iH2hbHscbnnhbHCqdNyfmuXmtOj bCWaiBDakP892AYXygGwrBqVoHD i2V8CuHvh0ERZvpNwmWF1b pRQqNJqpUt7neDysjYeiBJ2kSSU nyadpg612GxKkm0jyYELhzIKnYO btTHW2S68dj1W1XQGpRXFm PFL1nCI1gQ4ogPxwstkufKNleWh jjrOkbOymQSgnBYnxJ987YAWsmT weZcDcpJz9N9UlOgs0EMJm vZxcAQ5qkSDdJFbbKp6zsOjxuOe rUF9pSJSbdvllv227WuAby5liEE JdmANkJXxgXMA7N41wf1Y8 BOEmIMAzAAW3oZA6tN8pcJfydxf gbGVmdDsgdmVydGljYWwtYWxpZ2 46IHRvcDsnPlBhdGllbnQg FUdfLOz8P0CfHqawgCA+UH89MMH lIY86sRBurBVir6vkfKk8RzVeFP WrQCC9pLlhFCdrh8QpIWIy Y13vsQEjh7B6JLJugRwoxUDbNgR zjKB1kA6pRAwbvppaw1hnmndvVb qzp4sdsc50sB31G10lRCvg DRRzNPLmECAdVLKjxXqpst1jqF4 wIi8+NVTvbAK0xXS1cM5wOWRdGd Y8MPqlH710GuLrmDFyQzco j8dsu6cplXp6YlJ4VLLzzdFedJs vSSU8f9PvOi84N02eOOndCRFxOR KdPRGaUXOtaOugvr3ojP7h Ii8+EWPztCY9xJL4lI4jPcFpJsN 0LMvgW680GgEgvMXwWhcdX66iK7 JvdXA+CBOwBup7EQVjrYyl XB6epQBaWTorQv5mYYF2EpUnIxY zWWdfV1IqKACdsapirqoikDY6PB SmZWVpcX59Ww6dcVgyHBRo aOUVsH8mkwbmh7xjssryMyOgOAS sLDl5NYy9TUBcdEwoAqDcVUJ0Xq P9YHT6cDUepR4vbYpcpypm qJ7wH7FnUDMmgmcxEh34jD3qPuK qRgN9JTnjWgs+ViZSCwiqY8XEVS rZPxEJIUX9O0JmWhl8IAYh uHanHY1bnNGrQLkbPp7etCnsaWi kNS5wFTUbkzprUMXlzF0rMGVvfO KiwBpqVE2kWGTtzzrjx975 KlYxOEL4GWSbrWNjB4KowJ8bKtR yMZQeHQDhA6QspDIzXLvwW674FS uoAgH9CXBzvrGyM4MuKDUv dGhmPvN5g7W5Us9yYV9jOe0zKQn 6DT22VB83tHVkw3P7lOU8Z0XlJU AybmqcabnmxUY0GLWcRBFs yY07fUNuVFasLw2kw5U0d243AZO gKLErzE21Ay8rrGjdWFGbgFCSdP 7cxrwjc3mzhstyQpTnSUVu BVk6BDl8DVYhzXgjZbHsFBL7QoT 1NXQ0lYPsjP4duGchtxsocO7tUs c+TpBkSOAzfgV6K5XbEkn2 LMIkcSgdEX8doFGpYTiaZi4epPl rnYtkCZ5aDEYovtteKDEpnR3ePN UadJHlxGcjTA0rIAKecapn t971TpBsXOO0IEMggVJiA7XihM3 lOzYgKFUxKZIzD9TjeJCeGVkmG5 35SDfbPkA3RFDjgeAhA4Ge UZHdqPrsAkA0d5W3Ws9PIG8VWKF 2X4SoVer5ISCrkUwbBJ6uvFLlXI nqSr8pqBwsjBldPR8rALAk gdpeOLJkqM5fLCZlvTObcBhkDT0 vXADkaqpoq065HtOlSNA8FRCylQ TdE6UhbC3sHoDhGEKxGNKp Q3ZkqCEcVIfjW797OKdyCtF8KTV cneCfP3HhTKQiyCagLjU9n0J0El 5PUDwvdGQ+AW35yq77V2Dk NtpwVad5XNCyCEN7lRQ6lC8hRKQ zSLeoe8Q3wIH5H0UrweFhkh4wz9 nfCDOkBAuzA02pzGIcp1R9 FTIgcPX0KEUseHaeIvDvpE07Rqr +QHEglHiyt5TrWryyu5bcu0agvU e0NvGmJKWghuUkeQxfFXN0 l2CyWa47H23rYJwoFPPfEWPqNHX uYCAgjMebuc3pcS9dAr4+PGNvbC I4sYM7gB1vKtRsGiR6FOhf N000QhLnmCUwKwmhj7mgw2pbzUf 1LlVbEYUzerCayJtcDRT4y8YcSk 07D1UboEzwu5GgGpx1fb35 iANor5D7eMV9F9CtWUOeqcyjcNJ voSpxLD4jCMGazvibURTciP0kVD ShW9f2QoSfHpR1IKjfE5Jg lsK0ZGRmhNFqEZCewEWBzR5okwr cd6nlnpsjPpRwMMQvSPo7NRw9CJ OhbCunLnFiYAE3XtH7GPT0 wLNsnQ8vwKrdtgqqtT2yFoh+UGh 2j8yfdIUeQT5osUY4NZ05LJ71mX Pbp3X7ePB9B1WbVZBueeyl ownskVM8AWXiAAZosD83Nj3sbMy hXn0hPNOpNXU3TVOytSLjA1CtcE 6mDyJoCSLvOPKgD0HjeJIr EGxlA360YDpbNaN7FXCmuzVfC9F eFVSlhBgjVpJ0h5J6Dj9CUR09IK 87PT66aZFwf5K9kNB1Z6Lw RJEkcpqlftiemRZ8DKNdJMDfkW4 9Jn6qfDfcEb8hXBRjYLT5LBHpdI TcE8QqqR7fQkWaZZPsCFSu F8AzbIHkIFnoD639XNhzQjY3TQS dryQwF9LbKHNnbXedKdK9u6V3Ti 8GHf60WY20ZA44fFEma3K9 aYD4D6FrXDJselhctbhpdPS1UVE mAAWubD58Fb7gpGuyRl3vPVEuDH B1YQQwlRFzD3LauO9uFpKb BFMfTZLzU8VskMOfEGuvD306NIu cRzO0NQYourUcM7SfGLMkwYykHu P6n5E5Jv4HWWuwlcw2D4Uz PjwvdHI+RE22EYKqIG19iNSgtYO po0hesNl9HtJhKHNbCKD1iNcwBW ijk5GmTFMqG29lkRVew5M2 IGN (more content not included)... [facility] Consent Formson 01-15-2024 Consent Forms [id number]#1.00[facility] Consent Formson 01-12-2024 Consent Forms [id number]#1.00[facility] Controlled Substances Agreem entson 01-12-2024 Controlled Substances Agreements [id number]#1.00[facility] Inpatient Patient Summaryon 01-12-2024 Inpatient Patient Summary [id number] [place] [address] Patient Discharge Instructions Name: LUCILA JACQUES : 1990 Patient Address: [address] [place] [address] Primary Care Provider: Name: Provider, Loni Phone: After you are discharged if you find you have any questions, please, call [phone] ext [phone] to speak to a nurse. Discharge Diagnosis: Prescription Information: If you have been given a prescription for narcotics, seek immediate medical attention if you have any difficulty breathing or any sudden status changes such as confusion and sleepiness. If you or anyone you know is experiencing suicidal thoughts, mental health, alcohol and/or drug addiction problems; contact the [facility] 17/04 Crisis Hotline -Text 4HRPJ ad 275252. If you received any narcotics, sedation, or [...] business decisions or sign any legal documents [facility] would like to thank you for allowing [...] for Disease Control and Prevention [facility] Intraoperative Record [facility] Intra-Op Record Summary Primary Physician: ALEC PATEL MD Finalized Date/Time: 01/12/24 11:47:08 Pt. Name: LUCILA JACQUES /Sex: 1990 FEMALE Med Rec #: [id number] Physician: ALEC PATEL MD Financial #: [id number] Pt. Type: D Room/Bed: / Admit/Disch: 01/12/24 [...] Sara L RT (R) ARRT Role Performed Appliance Worker Appliance Worker Gang Supervisor Pipe Lines Time In 01/12/24 11:40:00 01/12/24 11:40:00 01/12/24 11:40:00 Time Out 01/12/24 11:46:00 01/12/24 11:46:00 01/12/24 11:46:00 Procedure Block Nerve(Left) Block Nerve(Left) Block Nerve(Left) Last Modified By: Reba Liang RN, Kelly RN Weisenburger, Kelly RN 01/12/24 11:46:22 01/12/24 11:46:22 01/12/24 11:46:22 Entry 4 Entry 5 Entry 6 Case Attendee Mason Garner RT (R) Dina Malcolm THOMAS F MD ARRT FUNERAL DRIVER Role Performed Gang Supervisor Pipe Lines Scrub Personnel Surgeon - Primary Time In [...] ARRTPatsy James RT (R) ARRT, Dina Malcolm FUNERAL DRIVER, ALEC PATEL MD Last Modified By: Reba [...] E.290 Evaluates (more content not included)... [facility] Pre-Op Record Summary Primary Physician: ALEC PATEL MD Finalized Date/Time: 01/12/24 11:49:22 Pt. Name: LUCILA JACQUES /Sex: 1990 FEMALE Med Rec #: [id number] Physician: ALEC PATEL MD Financial #: [id number] Pt. Type: D Room/Bed: / Admit/Disch: 01/12/24 [...] Signed By: Sushila Quintero RN 01/12/24 11:49 [facility] Patient Handouton 01-12-2024 Patient Handout [facility] Test Urine 1on U Preg Negative [facility] Comment on above: Performed By: #### [id number] ####[facility] (DEFAULT)[address] [place] [address] U Preg Internal Control Pass [facility] Comment on above: Performed By: #### [id number] ####[facility] (DEFAULT)[address] [place] [address] Progress Note - Provideron 0 01-12-2024 Progress Note - Provider [id number]#1.00OTGTIFF [facility] Coding Summaryon 01-10-2024 Coding Summary HTMLBase 64 UaholtjoDPb1mKu+PGhlYWQ+PE1 JDHJuV48zeBDvcV5iA6JHJSpTEe muEDWAOPhPFbRrbrRuRC4naCOvM XJu IC8+YZ7aCURqYbxezKBrf4L9pJO 9L73hpn3aQAxqhCP9XSDxGaDewq mkr1bhhLe2XGkvGlagDeHq ENVhqD35VUN1iK65Ak21eZKeiCY tj5rmgEx4ZaFiHATaQZS3rWofYC hpb3HsHFBrB83viQMdx4D3 EBOwiUvyqDBsTiVnxFS6wF7yKLj lgipga0wpdaipQji3pu57rBYzq0 W5hQI4Q3UpviJ8FAMlhKVj QroowZGNbM8nvakph4fpoomvJhH iXBMsMZr2UJg0PEIekQvlKwLkLL 13AFB3OANfyqZkR8GjOIMy lGvxDbS1s0B0Nf5IJ3IZCnftP4W NTUFSWTwvdGQ+DT37nv03E4JaYh zeHlb2WLZnJCH3eMF7uA0u MDOfDDuyh6A3vCI6M7PosdRtci2 uq3jlOMYmSKtnN11sxQEqk0W3TC RzrLS8RRKdeFnlKuCdiR81 Oyc+YTXaoJyob9NlBpbwx7eff8u rqXd9KbqpGUWkjkHzcTbbNHM7n8 DuIs9mAVHpvXS9xSR0jW3a NlGxEiN1VDtyK006QjIsqEVqCfs rL24qV4FzlUM+BEJvWjp7BGVyzI biHA4mU3TpOHNsoaoopAKd gUkaJI5xVLBmbataALOovC2fDDD rS4h7VrKxQoE9ZBjoM5UrPKUjsi akWj74wK1tIgXzWjX5WSmo D9IsqqL4DXSfaLAkYXedPFT4U76 tv4H9HMTbAYQnYIL8wFH2eC9dbW lnbjogbGVmdDsgdmVydGlj CVnfWNkpW541EXAoiXnyYfIkPQw uZyBEYXRlOiAgMDQvMTcvMjAyND wvdGQ+VNRtCZO3lCplFQTq oRKiZFetJc2upWhfqKabQE7wMHZ tomjaSNOmaY0zAGVpzMQxlGrkWL 7dSYTxowqlh691IhPgEFC4 KWJhrKRaK1BdoM3mBeDiSSJeTAI jP0SivZIhFBkvV113JOyaZjC5ZK FvdbPbM0CfDNShmRxmCeN7 j0S4Vy3Um0AhpcqyS7FgjNMeHiL rZqcwFAb9C5MwVaitvAE+PC90YW DsQK73LJv1CIS8nUirBShk LIWaS1IcpK4hRxEhWSFvAXMcLdo +PHRhYmxlIHdpZHRoPScxMDAlJy UbqRucNZ5sBm0oXQRiDRFe iLgmsVBcCnNja0inZSFgCXrnKG8 fyGsmP9WzdHY8UCYny4n5Py17Y8 7lG9UenQO+YZUnwTR7iDX2 tI0xSxOlWsZ4SSywZ047YkUohPR hAhpeh6sxk3orpGj1VuW8PTHgdz FeeExkEHD0b5WgDe87A28e IHdpZHRoPSIxNSUiIHZhbGlnbj0 umU7tVn2+ESZmuJH0xNU5vZ2wJt PqPoA1YRlrD400GtNtgKVw Qiwlb5snj6pqpMb9WlGcJOBjvsT dzRtpAKZ3p5NgEv30J0FhbBudd4 FeJhs6mt99qHNzw4U6sXT5 J2ZhLMYnzlnzhIDhqFgaHW3vWWZ yvtwxTBHokR3bPXMyD2z7XjHvTz A5CBpsY7WwwoT2ICWvrTOs RBZevPJTeI2cddnxy5dbxetfRmN bIFHaYZt3KLi4GAYdbHypKoRdWB X8AtM8QLU0cPYpcB7aqFvs kidbiA5xSwi+MRJ4oAXmeCYIKQ7 lOjwvdGQ+MRQtMSK2mCdzMAckPQ CrsU8hDBFuC8x5LzKzZlO6 WFrnV6HlekT2QXRsnRNbVVIhcTC LeN0cylymr2pvmfeqHiGoBRHoWB x0JBv8PKNhvUgkLqDaPPY5 MyH7NUM3gYNhiO9jbQimfegerI7 wOyc+NxwchLvuTAD6SRb1U7ZcEo r7QFMmvHilSJ4agPVqBIwp Li4shUmcqOowTO1iPGWpohnrx50 4SsOsu7aqXGBjvRSyHCwjPFT6X3 2ju3V6TYGcCRCuSZN2zIY8 yD0yrHjpmaldiXYgeDvjjaEjsOp vCAaeHLgiT631XHYgwLzcCfKqTW v2V5RrVmt1XXGupFqeYJ9r iDYvFCjrJo5dqUatwOzsLB4uSHI wwuxgb716VeCol9wxQSDchIMbVT rkYVH0U65bu5U7DVKlHXIa MAB8eCH2aN2ccKyssltulNGeuJz yfiCfgWknSWupKUmnE476CPMmmM wqRaYwvEv9X5DmXxb0TGNe aHazWX1jkJXxCAayKj3glUhblNz jPU5cFPGkhoous734DpYoo0mzUM YgdOCtWEgrSMX7S77lq3F8 EIKcQQHfJCX1vDW2zH9ozPlzwba gbGVmdDsgdmVydGljYWwtYWxpZ2 46IHRvcDsnPlBhdGllbnQg CJdjRCe3B9FiJmkhjAZ+ZQ73TCF hFV08cBWbwRExf6xcdVm4KaVcVR FeOAN6hXymSOwew5MxWNZg Y12nfTQmu5J1YJSknPvihLFnCdT sxGA4vN2dDQrcwrure4fynjcbKb gyo3rjgr35sR93A76cIYcr DVVbPLWsAEYgONThgCbwgm2tsA1 wIi8+FDMibBY2dCM9yA2dRBAoZc K6RPztG253ZhPatEIyTsar f8xai6gawSl0WzI2RVVjrhDqcBs lOFD0f1UtCx26N05xPXsyVMImVS HvOZByYZDzlAboka6ozF3o Ii8+SBVdaIE3dOH4jF2sZzRmKfH 9NYptS843IiAniLLpAkbvX31kU2 JvdXA+WBQqUus9HKPuzZci ES1mcIYyLQzzGo1rVBX7UvEgTmU cTIkpK3QiUCHfottkgekywCQ2IZ EhTDJoaC18By9mxNqwSQGl qESNbM8clhvek0bakntbCiIjIRM cGVt2ZWc9DNEhtTgjErUyKMM0Yd J3NOB5bEGkxI6roZfkiupv oW0bF4KaNOQaucdbFe46zH0uMtK cIoE3JHnuZqo+FbLKGchqX2SPGP hKIuNMAPG2J0ThBpk1BUZv uEfdLY5kgTWpGOhhUm6mzGdfwLx bLV5wROUmybltUDXmgU6sRPSdfK PsgXjxFN4sCAVmgnzmn865 OqMaQIX9YOQmyLVeZ7TxyG5gVuA gXFQzWLVgN3QciRTrELuvD922RS qgXuD4RKVeoxHcK1XgYANd mTwiStR2e8K9Ut1xGR2tRm7cUWx 0YN26MB16hOLct6I4zCV6S4YsEM YtnibpinmjaIT1UPDoRPVy qG71qHIzJEywTd9mb4L4l811PTG sEQDgkO85Cn0orMwqHSEsvGCXdR 6exgcsf9qxnicnJoFgCGAi ARn2VMp4ECGshCttIeCqIZM5XlK 7DWX6iKFrwE8mdPnphqbmiX1aVv c+XzEpJMCsufG8B9ToItn7 UODjoDseWV8hnEAwDNqnVd9vmIs tnPuxIM5tVMUhmqyrIMIssZ4jOX RrrWVslRbxTN2kKWFflfwx u461NzLfIPF1CCXqnRQcV8LcsO4 rMgLaBLZvOHMyP6AcbWBiSWnjI0 28QXkqQxV0GMRunnRxD3Yu NGWvfYqnYnM3e3L5Bo3VVX6NUWC 5D9SoUqf0RELgmSxtYN6iyRVmSJ gmCk1dcVcniYzcQP7qIEXk vlvpCJGqzR6qZNKqiGAasPngOB8 gEGRiyzwaz503QvRlFUA7YEXpzD MbG7ZtpY9lJoTzKCUuOHUg Y7GdnJXuZDicL075DPnqTnS7PAY zttWyH1QyPRRhiQobOqD3f2T5Uz 5PUDwvdGQ+CA95sy85N6Hi GikiCbo0WUCtRRZ0rXB2xK9lEFJ pURxrn0A6hFP6E3YbbjXjsq9bn9 xpAATlPAcyV33uwRNqs7R7 DHUfkYI0JOUjySggWzRyqM02Gwa +NIWluKmzc3MoFtixc0vtm6ungJ c4FuXjOAHodiBmhPnqREF6 z3KoXw01L49xOIwgAFBmLAHcKXG hKADpmPjxui6jkJ0tFo3+PGNvbC U5cTD4rR4hTuPjDqO2UJmz L983YyAasPTnTtnxm5shm8zhcJv 5UdXkRDYwpzTdjPxoUTK4v3TuMk 52W2IapJarc4WwKoh9ce28 eBElj3I2uTC2P9LfHZBbdeeffYZ jzXsoOJ0uSYMxkpjsUBHjbQ8hYZ OzC5c4UoJkGlE5PLfjW0Un ruG9ZYFvoQSpREWmzPEOzQ9qdvd ho7aljkjbXxIqLOYuPXq7YUm1AW VwoElfDsYlLGF7KtK1OVQ7 oZJphL4xlQdnpewsoS0jGtt+UGh 4g6cykZYtHZ2omYT3IV13GG40sY Mqo2E1sHT1G6ZnNWDsqnjt khlpyXV8SJQjONCfkG61Dl7ksOs uUa4zATWvTFZ5OUZwaPRcB8AocB 5qUnBfWGIwGSRvD3VrjHQs ZVrxE126YFahRjT5CLTjnyXdS9I iHUClmCqhHyK0n6Y4Oz7ICT85YW 54GE56vFLtu7N1tRS0I9Ss KYLgdhuiexjseIB1UHKfEGNkxJ9 9Hi4taCmlCz5jKSFqLCO1FKUktF ZqI8WcdA9nNmDrVCMsMHYl D7PclIIsHNxeH533QTfzSfM7ASF waqPhW2QfWEUuxWdiTdE6v1S9Gm 7JDf76AM79AN83oMEbn1C0 fQD7G1AjDWCyycokvqgndNJ7SMS jSUYauY18Lj6fqNqbFx1tHPEhXB Q8KSZrxQLwS5AmmP8fMcSr XDMwSGJqD3OryDImSQxnS670QBn hEhL9WNRlxbFzT9ZfGQVprJhhGr M6m9Y8Cg5HHAzqyax5L0Ml PjwvdHI+LQ82DXGsGL44fXVqvUR ws5sucQr1IyXwUQNrWGQ0pRmsKX iwz0NsQIHoY77ngBEpe0K7 IGN (more content not included)... [facility] Coding Summaryon 01-09-2024 Coding Summary HTMLBase 64 SldcpmwvUCd1cKj+PGhlYWQ+PE1 GKBDwC55tnVTmkY1iR8MNNOmZIw jgPUTHROePXaPkmbMlDO4ycLPgW XJu IC8+PC0eQDVwCjhwtNEcc1P6gSS 3N71nsw8vNOioqFT6BCHbDwUqnh ugn4jzxJt0QUixDgcmZdOv ZCUjzB38YAV8gY86Nw31qKIeuTH by4swrTf7YsDfJGJaMMN0nRqjMM fue3KvUUPfZ32brFSma6G1 EKBzrDkhcYHuEqDtgUF8rE4aLHs uegacm5erqoscTks0jq37sCVnb8 W0rEK0A6SnliN7GFSixEYi LbqnyEXHcI3wxdwxp4gzsjkqKaF lSCRyFEy8CKk0ZKWngAabFiNrKA 30PDF5ZSUyfuEcI9JgYWOl mEkrHqL2w3N7Ha3IV2VQApwlD9G NTUFSWTwvdGQ+DZ12iy39F6KqXk fbLar2WLMzUYN1jZX9mO5r CQAbPBuhl7V1wUB9Y0ZnwaOiqh4 oi7nfSUVpYQkbR21orSJsv9E3BC GbyCI3HPEboYnoBdNrnF83 Oyc+IXOjnNrgr4SpHunhx7try4n jtZy6LcguGIYqaqRwvHvvYUL4f0 KcJn1tRRSkbTO9tAU6oU0z HhFwCcA0LOlyS662QgSasEMiAla dZ04uZ7HycSE+NFXcXkl4PVXvyI ayDD8sA5LhVWHvxwmqhKWk zDrpGM1cIWWldbjdISZyjL1qCAH zM3x1MtTxEsO1HYfmW0RvPLAfym zhFs84nW5kMeMvHaC8OXny P1HiwsQ9XULvkLUpWEpyRFM6T18 mk4O6QLXvUQUkMRX4uCD4pP6zbR lnbjogbGVmdDsgdmVydGlj KIzvNQyzG168JTHxyCcrZfEoZYj uZyBEYXRlOiAgMDQvMTYvMjAyND wvdGQ+GAKbUAB7dTnpBCYm gGFjLWuuBj5kbVtscHukGM0dNMH kmvfzBNSgtX5iDKBqrFTvoOhwBT 1zKGDkpcutx810KyTgPON4 FFLilSUmJ5CvjU6yThDqIELuLOK xX3RhjXPuBBrvQ189EGtxEgX3NT MewgGoM7EwKBNrgKczNhI4 b9H5Uq3Bu4QtxnblE1RvsIWpFiA tMrzmRBz3Y8DaQfpvjML+PC90YW AoIJ12SQa5KFB7zXwgVGre DRLqO4RwfC4iDmPpBNMvYCWvYkx +PHRhYmxlIHdpZHRoPScxMDAlJy CfhWurEH9oFk6nZKHuLEYi vJpgzFPvLyUhn7ocEZKhJEcxOO8 obQuwM0VzgVI9RPOwz6q2Pt65V4 5bY2IeoQM+JYRzvZB0gAM9 gR3bDtZbPbT1XHniF142KgIbhPR yIbuva7znb9quqNu4HbQ7GTFjyw TsyKveCVA1j2JnOl18S71y IHdpZHRoPSIxNSUiIHZhbGlnbj0 pjZ0tSq7+FJJncSR9aQT0hL0mJn AyAvQ5XGuyF240SuZtdRVa Fiwox6xxw1wxuQc4UlQuWVSzpoK wjRhdZDG2v3ChBw05J6MyuOhas1 EnDnl8ui38hGIgn9F5nNF8 H0ZqLCEvthkwkHGmtIcbJO4nUIM gdtomRWUuqM3oPNJwE6c2UaMgHk B0NMqqK8NdehA4QXCqsFNs CXKydUVPkS5zhwnhw8puovnxRcQ rJGZeQJy7GOg5YHAxyGmsCcIjSV Z4ArQ7CUN4pCMzsU4wmFzu jnulbL1gGuc+HNZ5sQSboJLUHV8 lOjwvdGQ+PKDwHMX8kIdsARulFX HzhW8dCNKrL5d1EiEuYfT4 NFacE1SxxoT7WPLwbJErCJWomQY LqL2xfogsn3edlzgbXnLoIMMsRD l2RVz5AKEdhWhdFjDbVHH0 TlN0SGB9bLJqbK9yjMdfqddsjO0 wOyc+HgouySekCYH2MEo1D3UjCn x3FFUinKntSG6gzMFrVGqg Pr0bgEdozSikQK7hESNfdbvdi20 7QjAby2zaRUMyiPOzXSifUXC8T5 6vl4L7FLTwEHKjBML4kLX4 wI6caBbnhvnmrCOftWqkwrIxwFl yREvdGQcrK844OYDdvJojHjKkHC j4G9MqGnf1IHCfqQanLU8i lRDeTKwlIk7zdEyfyJmyZQ2mDBI mlsyng544RiDru8brGSKbtTRfGY pgKQT9M40sf9X8FBCoOVIq CEJ4iHM0cN0nwJtddenucBGdhUb krhJgbNaiKJuqLCrhN182JZPldF yxJpEfaQg4Q0QwOtk4JAWk nGdlGG4drWYdBTymEa8wzUqrnNb mJG4xSZRbckizt250PoHkj7dmMA PbmDKkZStmXHF6P39jo5I1 RMZsRVOrXDL6vGW2tY3ylRrycgp gbGVmdDsgdmVydGljYWwtYWxpZ2 46IHRvcDsnPlBhdGllbnQg VQwyQAq9D1PiRwbnkEA+FH53WFG bCP88eMBrgFIkc7yppCh4QkBzAA ZoGWP0sDqvMMlcg8PhFIXj S35psHWsi9Y6RJCdhPhoaHExSrY lvWD7dE4sCGjgdzlqp3bmautcOx dak8hfac07yY86F97dPPiz FFVwDNEjIRGwQNVyuEylfm2dlH1 wIi8+OIFhsWU2iPH0nL4tDYFpQy V4JSwsU314YeYrnGOpMora j2zfa8zvqFr1JcW0GLAwbiPpbUp kMSN6h0NyNp51P79nINegTQSrTC XrSPHbSJZnkUywyo2lwE3x Ii8+WHNhhIY9xTA8aL2xArPxFwM 9FWsnU450KpXpnJMcMvdzN03zC8 JvdXA+SRAhEoh5UMCraZnq KR6izIWvGFziBp2dREW2PkJsUaB vIMidC5VfWGSwwnbbvrrgpVC9VH GlYXUtaZ31Np4hhBsvDPRk bTOMuO0sozqqq6bpfiekOaDzLEF bRYr3FLz4QYPrcJbdLmKvUOM4Jo G5KCC9cWQuxG5scYbosvnn mC8bU4AtQAButbzcDv73kL1fHoX cNqU2CFnmQfg+RiZCYaefB8DXYN cPQgUJMZY0F1XjBvn0DRKi rHifRJ7zoLFvLJonRz3xdJrijPc cHB8vKBZrytvsSYLgkZ8yELGduB XexCvhYT6mNASyfhanc673 OuCbNIO0WRRnkDNvU2XlmZ7lGjW uACAdUHHtF6MqaBDeZIgxQ700VS mySrB8WPQegyYhS6AkFWPi cXwxKpW0w5Z9Fx7pQO3yPd0cCVb 0YY12PK49wPWxl7C5dBU5C0OpMF TydtejxkhhmXY9BEFoITBo aV57bVLnVOdmUu1xv3A8z057HBZ pFOWpgV36Xk7wcQjqVNKqhFFChG 9xfjidp0ezstbgFaMkWCOd XQr8QIp2JGDoxUwuTpDaWLR7XqV 9AHD2zKAzuD1ziXghgtmpjN3nCv c+MmVuZMRhuzC0P6MyYcs9 XFFijHgtNM0jmTKaBWcnTk4ucPd zoJrgHM4wAXXojcsrUYGspV7fDJ PgkGYisSzhOL0rYLQozuvw e514GpHrDBE4LXKdxPRxN7PnwS8 iYiJwBKQdUZQmZ2YezKMoFBdkL1 24RLlsHdN2XFZmkzIxY9Cc UEFskAunFlF9l7B8Ti9HXY0XWMH 4I6InXoe5RAYmtOfmPC0tlJKmBL upAu0gbTtemMchZO9yBVHy reefIGGscI8nSIIhxHAvmRsmRL3 jVUNcaiooz671ChUiQQO3MSHhnU MmV0UxmC1sUjLkEQYqYBGn C9YogLKlPPzfA530QMlrUdA5JFK qcnKlO3SeLYJsjUmdCtN8y6T0Lw 5PUDwvdGQ+XT24qq43L5No YjeqHcq8LHLiVZO1wFK0bL7sYNZ jVMrta5V6kWJ0R9TuyiNvqr2wd4 dsOZGdHWoqQ05xhOBft5K6 SORztJU9ZZQkoDyeSlJkxC01Fox +XKFbfFinm2NzNwvij2rzu2wneR g7CmJjVOZcbzGwyAjkMMQ6 t0TkPx40H04bZDiuBEOiPDDeWWJ mLMFdqXmzfn4raO3iMc5+PGNvbC T5uCK3dZ2qCrNvQjG1FDeg S501BhTsxAIvZlrpt2qcv2kjzNr 5GpBlGJRausOiwQaeFSL8o2RgEd 33E0RtbVwkl3UgRic4ts10 cODfa8E1yKN4P9ReOAEfbfajwEL ihXqgHK8rEJOnzxpaRREfuS2hKU NuH2o0FgPxGtF7OXrjY3Od lqL3LYLbpXHxSIRhzKKVwI8dkhu di1chuglxDcPiAZDiURp8DMg8MH ExmZeoZyTxLJD9PeK9KHL8 yKXgwD9izYhgieothD7hDen+UGh 9h9mukURqAN9nhDW4XS66BE33qF Lax5J8fGQ1C1GvXXAjxsmq pkmtkPJ9RGXlXUCqzC46Yx3soLm rZv6xGGCsJTE2JNMufPFqY6BkaA 2eIbBqGIZsTEUaC1IfwTSs VJyvN306BQvuJxH2FLBvbuOoA4J pJQAswGeyBmI7r6Y0Dp6TIS09PV 56PD09sZSmj2U8rKJ1K8Qj JFFceblcbwmijKO5RJMcWZXrzQ5 5Rl0deKvnXn8kOIIcSEI0NSZijM XlH0OyzN0dDnTiZOLoDKDa D1XnzXBfXHvnX032SJqkCrO5IIB zjbYbX5SrQYJonYtkLlD6l4W8Ia 9NHn67IJ36HK09zWXwh5P3 qAR0T8ZjRSWdjrdgwgipuEB8HBO mMCJhnZ58Zk2xvIiaVf2vGJSiZK C6QHGuqZIqH4UvhP6cXlRl PPVjLGKzE1DimMNuMRkuT119HPo cUvW7NSUlghRdR2FwZNPljYpdWe G9s5L4Mp8FVSnvvmq4X4Zq PjwvdHI+SJ36TNSoKN07zVZesKP lc4qmhMi4VkQpFVFtPBW7rXdpEG swq6LiRRNzW74ypYPxu7K4 IGN (more content not included)... [facility] XR Hip Complete Right w/ Pel vison [...] MD 01/08/24 3:46 pm Technologist: DARLEEN MALONE [facility] XR Sacrum/Coccyx Minimum 2 V iewson 01-05-2024 [...] MD 01/08/24 3:46 pm Technologist: DARLEEN MALONE [facility] XR Spine Lumbosacral Complet e w/ Bendingon [...] MD 01/08/24 3:46 pm Technologist: DARLEEN MALONE [facility] Telemedicine 08-23-2023 Telemedicine [id number] Lior Green in 1990 F Date Provider Department [place] 08/23/[address] [place] [address] No family history on file Level of Service:07869 NM OFFICE/OUTPATIENT ESTABLISHED LOW MDM 20-[address] [facility] 37on 07-11-2023 37 Follow-up with famil y medicine as directed. [facility] Telemedicineon 07-11-2023 Telemedicine [id number] Lior Green in 1990 F Date Provider Department [place] 07/11/[address] [place], [place] [address]cy Medi No family history on file Level of Service:06205 NM OFFICE/OUTPATIENT ESTABLISHED [facility] 10-19 MIN Reason for Visit and Comments: Headache [52] Normal [facility] HEPATITIS B SURFACE ANTIBODY QUANTon 09-01-2022 HEPATITIS B VIRUS SURFACE AB (MIU/ML) IN SERUM 3.83 mIU/mL Normal [facility] Comment on above: Result Comment: INTE RPRETATION: NONREACTIVE<8.00 mIU/mL INDETERMINATE8.00 - 12.00 mIU/mL REACTIVE>12 mIU/mL Performed By: #### L [id number] #### [facility] (BEAKER) [address] [place] [address] T-Spoton 10-18-2021 T-Spot. TB Test Normal [facility] Comment on above: Result Comment: [facility] [employer] [address] [place] [address] (NOTE) T-SPOT.TB Test Results --------- T-SPOT TB [...] UBI, FANG, JAGDEEP, VZI, TSPOT #### [facility] [address] [place] [address] [employer] Technician: Isreal Astorga MD Measles (Rubeola) Imon 10-15 Measles (Rubeola) Im 6.05 Normal >1.09 [facility] Comment on above: Result Comment: Interpretation: IMMUNE Reference Range: <0.91 Not Immune 0.91-1.09 Equivocal >1.09 Immune Performed By: #### R UBI, FANG, JAGDEEP, VZI, TSPOT #### [address] [address] [employer] Cellular Technician: Isreal Astorga MD Mumps,Immun,Abon 10-15-2021 Mumps,Immun,Ab 5.42 Normal >1.09 [facility] Comment on above: Result Comment: Interpretation: IMMUNE Reference Range: <0.91 Not Immune 0.91-1.09 Equivocal >1.09 Immune Performed By: #### R UBI, FANG, JAGDEEP, VZI, TSPOT #### [place] [id number] [employer] Technician: Isreal Astorga MD VZ Immunityon 10-15-2021 VZ Immunity 2.55 Normal >1.09 [facility] Comment on above: Result Comment: Interpretation: IMMUNE Reference Range: <0.91 Not Immune 0.91-1.09 Equivocal >1.09 Immune Performed By: #### R UBI, FANG, JAGDEEP, VZI, TSPOT #### [place] [id number] [employer] Technician: Isreal Astorga MD Rubella Ab, IgGon 10-14-2021 Rubella Ab, IgG 279.3 IU/mL Normal [facility] Comment on above: Result Comment: REFERENCE RANGE: <5.0 NON-REACTIVE (non-immune) 5.0 TO 9.9 EQUIVOCAL >=10.0 REACTIVE (immune) Performed By: #### R UBI, FANG, JAGDEEP, VZI, TSPOT #### [address] [id number] [employer] Technician: Isreal Astorga MD Basic Metabolic Panelon Anion gap [Moles/Vol] 11 mmol/L 9 - 17 mmol/L [place] Bun/Cre Ratio NOT REPORTED [place] Calcium [Mass/Vol] 8.7 mg/dL 8.6 - 10. 4 mg/dL [place] Chloride [Moles/Vol] 107 mmol/L 98 - 10 7 mmol/L [place] CO2 [Moles/Vol] 23 mmol/L 20 - 31 mmol/L [place] Creatinine [Mass/Vol] 0.59 mg/dL 0.5 - 0.9 mg/dL [place] GFR >60 >60 mL/min [place] GFR Non- >60 >60 mL/min [place] GFR/1.73 sq M predicted among non-blacks MDRD (S/P/Bld) [Vol rate/Area] [place] Comment on above: Average GFR for 30-3 9 years old: 107 mL/min/1.73sq m Chronic Kidney Disease: <60 mL/min/1.73sq m Kidney failure: <15 mL/min/1.73sq m eGFR calculated using average adult body mass. Additional eGFR calculator available at: http://www.[employer]/multiple_crcl_2012.htm GFR/1.73 sq M predicted among non-blacks MDRD (S/P/Bld) [Vol rate/Area] NOT REPORTED [place] Glucose [Mass/Vol] 91 mg/dL 70 - 99 mg/dL [place] Potassium [Moles/Vol] 4.1 mmol/L 3.7 - 5.3 mmol/L [place] Sodium [Moles/Vol] 141 mmol/L 135 - 144 mmol/L [place] Urea nitrogen [Mass/Vol] 10 mg/dL 6 - 20 mg/dL [place] CBC Auto Differentialon Basophils (Bld) [#/Vol] 0.03 10*3/uL [place] Basophils/100 WBC (Bld) 1 % 0 - 2 % [place] Differential Type NOT REPORTED [place] Eosinophils (Bld) [#/Vol] 0.15 10*3/uL [place] Eosinophils/100 WBC (Bld) 3 % 1 - 4 % [place] Erythrocyte distribution width (RBC) [Ratio] 12.4 % 11.8 - 14.4 % [place] Hematocrit (Bld) [Volume fraction] 41.3 % 36.3 - 47.1 % [place] Hemoglobin (Bld) [Mass/Vol] 13.3 g/dL 11.9 - 15.1 g/dL [place] Immature granulocytes (Bld) [#/Vol] 10*3/uL [place] Immature granulocytes (Bld) [#/Vol] 0 % 0 [place] Lymphocytes (Bld) [#/Vol] 1.91 10*3/uL [place] Lymphocytes/100 WBC (Bld) 39 % 24 - 43 % [place] MCH (RBC) [Entitic mass] 29.7 pg 25.2 - 33.5 pg [place] MCHC (RBC) [Mass/Vol] 32.2 g/dL 28.4 - 34.8 g/dL [place] MCV (RBC) [Entitic vol] 92.2 fL 82.6 - 102.9 fL [place] Monocytes (Bld) [#/Vol] 0.46 10*3/uL [place] Monocytes/100 WBC (Bld) 10 % 3 - 12 % [place] Platelet mean volume (Bld) [Entitic vol] 10.7 fL 8.1 - 13.5 fL [place] Platelets (Bld) [#/Vol] NOT REPORTED [place] Platelets (Bld) [#/Vol] 246 10*3/uL [place] RBC (Bld) [#/Vol] 4.48 10*6/uL 3.95 - 5.11 m/uL [place] RBC morphology finding Nom (Bld) NOT REPORTED [place] Segmented neutrophils/100 WBC (Bld) 47 % 36 - 65 % [place] Segs Absolute 2.29 [place] WBC (Bld) [#/Vol] 0.0 10*3/uL 0.0 per 100 WBC [place] WBC (Bld) [#/Vol] 4.9 10*3/uL [place] WBC Morphology NOT REPORTED [place] Iron And TIBCon 05-31-2019 Iron [Mass/Vol] 92 ug/dL 37 - 145 ug/dL [place] Iron Saturation 38 % 20 - 55 % [place] TIBC 243 ug/dL Low 250 - 450 ug/dL [place] UIBC 151 ug/dL 112 - 347 ug/dL [place] Otheron 05-31-2019 Interpretation and review of laboratory results Abnormal [place] Vitamin D 25 Hydroxyon 05-31 Vit D, 25-Hydroxy 20.9 ng/mL Low 30 - 100 ng/mL [place] Comment on above: Reference Range: Vitamin D status Range Deficiency <20 ng/mL Mild Deficiency 20-30 ng/mL Sufficiency 30-100 ng/mL Toxicity >100 ng/mL Vital Signs Date Time Vital Sign Value Performing Clinician Facility 11-21-2024 11:58-0500 Body mass index (BMI) [Ratio] 40.32 kg/m2 CatrachitoWowcracy Work Phone: [facility] 11-21-2024 11:58-0500 Body weight 113.31 kg CatrachitoWowcracy Work Phone: [facility] 11-21-2024 11:58-0500 Diastolic blood pressure 70 mm[Hg] CatrachitoWowcracy Work Phone: [facility] 11-21-2024 11:58-0500 Systolic blood pressure 110 mm[Hg] CatrachitoWowcracy Work Phone: [facility] 11-07-2024 13:51-0500 Body mass index (BMI) [Ratio] 40.03 kg/m2 Grafoid Work Phone: [facility] 11-07-2024 13:51-0500 Body weight 112.49 kg Catrachito Attila DO Work Phone: [facility] 11-07-2024 13:51-0500 Diastolic blood pressure 72 mm[Hg] Catrachito Attila DO Work Phone: [facility] 11-07-2024 13:51-0500 Systolic blood pressure 120 mm[Hg] Catrachito Attila DO Work Phone: [facility] 10-01-2024 10:38-0500 Body mass index (BMI) [Ratio] 39.19 kg/m2 Catrachito Attila DO Work Phone: [facility] 10-01-2024 10:38-0500 Body weight 110.13 kg Catrachito Attila DO Work Phone: [facility] 10-01-2024 10:38-0500 Diastolic blood pressure 68 mm[Hg] Catrachito Attila DO Work Phone: [facility] 10-01-2024 10:38-0500 Systolic blood pressure 108 mm[Hg] Catrachito Attila DO Work Phone: [facility] 09-04-2024 10:33-0500 Body mass index (BMI) [Ratio] 37.92 kg/m2 Christen Reid MD Work Phone: [facility] 09-04-2024 10:33-0500 Body weight 109.86 kg Christen Reid MD Work Phone: [facility] 09-04-2024 10:33-0500 Diastolic blood pressure 69 mm[Hg] Christen Reid MD Work Phone: [facility] 09-04-2024 10:33-0500 Heart rate 84 /min Christen Reid MD Work Phone: [facility] 09-04-2024 10:33-0500 Systolic blood pressure 105 mm[Hg] Christen Reid MD Work Phone: [facility] 08-12-2024 14:16-0500 Body mass index (BMI) [Ratio] 38.58 kg/m2 Genevieve Donovna PA Work Phone: [facility] 08-12-2024 14:16-0500 Body weight 108.41 kg Genevieve Donovan PA Work Phone: [facility] 08-12-2024 14:16-0500 Diastolic blood pressure 72 mm[Hg] Genevieve Donovan PA Work Phone: [facility] 08-12-2024 14:16-0500 Systolic blood pressure 120 mm[Hg] Genevieve Donovan PA Work Phone: [facility] 07-16-2024 11:31-0400 Body mass index (BMI) [Ratio] 38.54 kg/m2 Catrachito Attila DO Work Phone: [facility] 07-16-2024 11:31-0400 Body weight 108.32 kg Catrachito Attila DO Work Phone: [facility] 07-16-2024 11:31-0400 Diastolic blood pressure 64 mm[Hg] Catrachito Attila DO Work Phone: [facility] 07-16-2024 11:31-0400 Systolic blood pressure 110 mm[Hg] Catrachito Attila DO Work Phone: [facility] 07-05-2024 11:45-0400 Body height 170.2 cm Mishel Segovia MD Work Phone: [facility] 07-05-2024 11:45-0400 Body mass index (BMI) [Ratio] 36.83 kg/m2 Mishel Segovia MD Work Phone: [facility] 07-05-2024 11:45-0400 Body weight 106.69 kg Mishel Segovia MD Work Phone: [facility] 07-05-2024 11:45-0400 Diastolic blood pressure 69 mm[Hg] Mishel Segovia MD Work Phone: [facility] 07-05-2024 11:45-0400 Heart rate 86 /min Mishel Segovia MD Work Phone: [facility] 07-05-2024 11:45-0400 Systolic blood pressure 128 mm[Hg] Mishel Segovia MD Work Phone: [facility] 06-17-2024 11:46-0400 Body mass index (BMI) [Ratio] 37.9 kg/m2 Catrachito Attila DO Work Phone: [facility] 06-17-2024 11:46-0400 Body weight 106.5 kg Catrachito Attila DO Work Phone: [facility] 06-17-2024 11:46-0400 Diastolic blood pressure 78 mm[Hg] Catrachito Attila DO Work Phone: [facility] 06-17-2024 11:46-0400 Systolic blood pressure 116 mm[Hg] Catrachito Attila DO Work Phone: [facility] 05-31-2024 11:30-0400 Body mass index (BMI) [Ratio] 36.74 kg/m2 Lexi Robertson MD Work Phone: [facility] 05-31-2024 11:30-0400 Body weight 106.41 kg Lexi Robertson MD Work Phone: [facility] 05-23-2024 15:41-0400 Body mass index (BMI) [Ratio] 41.48 kg/m2 Sandrita Bowers CNM Work Phone: [facility] 05-23-2024 15:41-0400 Body weight 116.57 kg Sandrita Bowers CNM Work Phone: [facility] 04-29-2024 13:25-0400 Diastolic blood pressure 82 mm[Hg] [facility] 04-29-2024 13:25-0400 Heart rate 80 /min [facility] 04-29-2024 13:25-0400 Respiratory rate 16 /min [facility] 04-29-2024 13:25-0400 SaO2% (BldA) [Mass fraction] 99 % [facility] 04-29-2024 13:25-0400 Systolic blood pressure 145 mm[Hg] [facility] 04-29-2024 10:53-0400 Body temperature 97.4 [degF] [facility] 04-29-2024 10:28-0400 Inhaled oxygen flow rate 2 L/min [facility] 04-29-2024 06:46-0400 Body height 170.[address] [facility] 04-29-2024 06:46-0400 Body mass index (BMI) [Ratio] 37.6 kg/m2 [facility] 04-29-2024 06:46-04[address] Body [address] [facility] 04-19-2024 09:11-0400 Body height 172.[address] [facility] 04-19-2024 09:11-0400 Body mass index (BMI) [Ratio] 35.9 kg/m2 [facility] 04-19-2024 09:11-0400 Body weight [address] [facility] 02-15-2024 11:55-0400 Body height 172.[address] [facility] 02-15-2024 11:55-0400 Body mass index (BMI) [Ratio] 36.1 kg/m2 [facility] 02-15-2024 11:55-0400 Body weight 107.[address] [facility] Encounters Encounter Date Encounter Type Care Provider Facility Start: 12-02-2024 End: 12-02-2024 Clinisync Result Encounter Catrachito Aiken DO Work Phone: [facility] External [facility] Unsolicited Start: 12-02-2024 End: 12-02-2024 Clinisync Result Encounter Catrachito Aiken DO Work Phone: [facility] External [facility] Unsolicited Start: 11-28-2024 End: 11-28-2024 ambulatory CATRACHITO R [facility] Start: 11-27-2024 End: 11-27-2024 Chart abstracting Scanning Provider External [facility] Start: 11-25-2024 End: 11-25-2024 Clinisync Result Encounter Catrachito Attila DO Work Phone: [facility] External Department Unsolicited Start: 11-25-2024 End: 11-25-2024 Clinisync Result Encounter Catrachito Attila DO Work Phone: [facility] External Department Unsolicited Start: 11-21-2024 End: 11-21-2024 Bamboo flowsheet Catracihto Attila DO Work Phone: [facility] [...] trimester Start: 11-06-2024 ambulatory None Provider Facility: [facility] Start: 10-25-2024 End: 10-25-2024 Clinisync Result Encounter Catrachito Attila DO Work Phone: [facility] External Department Unsolicited Start: 10-25-2024 End: 10-25-2024 Clinisync Result Encounter Catrachito Attila DO Work Phone: [facility] External Department Unsolicited Start: 10-15-2024 End: 10-15-2024 ambulatory CATRACHITO AIKEN [facility] Start: 10-01-2024 End: 10-01-2024 Bamboo flowsheet Catrachito Attila DO Work Phone: [facility] Start: 10-01-2024 End: 10-01-2024 Bamboo flowsheet Catrachito Attila DO Work Phone: [facility] Start: 10-01-2024 End: 10-01-2024 flow sheet Catrachito Attila DO Work Phone: [facility] OB Comment on above: Second trimester pre gnancy; 25 weeks gestation of ; with normal glucose tolerance test (GTT); Diabetes mellitus screening; Retained intrauterine device (IUD) during in second trimester Start: 10-01-2024 End: 10-01-2024 ambulatory CATRACHITO AIKEN Not Available Start: 09-04-2024 End: 09-04-2024 Office outpatient visit 25 minutes Lexi Robertson MD Work Phone: [facility] Comment on above: 21 weeks gestation o f (Primary Dx); Retained intrauterine device (IUD) during in second trimester; History of gastric bypass; Obesity affecting in second trimester, unspecified obesity type; with history of section, antepartum; Multigravida of advanced maternal age in second trimester Start: 09-04-2024 End: 09-04-[address] [facility] Comment on above: 21 weeks gestation o f (Primary Dx); Retained intrauterine device (IUD) during in second trimester; History of gastric bypass; Multigravida of advanced maternal age in second trimester Start: 08-12-2024 End: 08-12-2024 Bamboo flowsheet Genevieve SOLITARIO Work Phone: [facility] Start: 08-12-2024 End: 08-14-2024 Clinisync Result Encounter Genevieve SOLITARIO Work Phone: [facility] External Department Unsolicited Start: 08-12-2024 End: 08-14-2024 [...] Start: 07-17-2024 End: 07-17-2024 ambulatory NON STAFF [facility] Work Phone: Start: 07-17-2024 End: 07-17-2024 Patient encounter procedure [facility] Work Phone: Start: 07-16-2024 End: 07-16-2024 [...] Second trimester Start: 07-10-2024 End: 07-10-[address] Start: 07-08-2024 End: 07-08-2024 Orders Only Not In System Ref Prov [facility] Start: 07-05-2024 End: 07-05-2024 Office outpatient visit 40 minutes Mishel Segovia MD Work Phone: [facility] Comment on above: Retained intrauterin e [...] 07-05-2024 End: 07-05-2024 ambulatory CATRACHITO R ATTILA [facility] Comment on above: Retained intrauterin e [...] Start: 06-11-2024 End: 06-11-2024 ambulatory NON STAFF [facility] Work Phone: Start: 06-11-2024 End: 06-11-2024 Patient encounter procedure MD Santa Estrada II Work Phone: [facility] Work Phone: Start: 05-31-2024 End: 05-31-2024 Office consultation new/estab patient 60 min Lexi Robertson MD Work Phone: [facility] Comment on above: Retained intrauterin e device (IUD) during in first trimester (Primary Dx) Start: 05-31-2024 End: 05-31-2024 ambulatory CATRACHITO VILLATOR[facility] Comment on above: Retained intrauterin e device (IUD) during in first trimester (Primary Dx) Start: 05-29-2024 End: 05-29-2024 Chart abstracting Lexi Robertson MD Work Phone: [facility] Start: 05-23-2024 End: 05-23-2024 ambulatory SANDRITA [...] Start: 05-15-2024 End: 05-15-2024 ambulatory NON STAFF [facility] Work Phone: Start: 05-15-2024 End: 05-15-2024 Patient encounter procedure [facility] Work Phone: Start: 04-29-2024 Non-patient / Non-visit [facility] Work Phone: Start: 04-29-2024 End: 04-29-2024 Admission to same day surgery center [facility] [place] Start: 04-29-2024 End: 04-29-2024 ambulatory NON STAFF [facility] Work Phone: Start: 04-25-2024 End: 04-25-2024 ambulatory SANDRITA BOWERS Not Available Start: 04-19-2024 End: 04-19-2024 ambulatory NON STAFF [facility] Work Phone: Start: 04-19-2024 End: 04-19-2024 Patient encounter procedure [facility] Work Phone: Start: 04-19-2024 End: 04-19-2024 Discharged Recurring MD Santa Estrada II Work Phone: [facility] [place] Start: 04-19-2024 [facility] [place] Start: 04-19-2024 End: 04-19-2024 ambulatory NON STAFF [facility] Work Phone: Start: 04-19-2024 End: 04-19-2024 Patient encounter procedure [facility] Work Phone: Start: 04-16-2024 End: 04-16-2024 ambulatory SANDRITA BOWERS Not Available Start: 04-15-2024 End: 04-15-2024 Patient encounter procedure [facility] Work Phone: Start: 04-15-2024 End: 04-15-2024 ambulatory NON STAFF [facility] Work Phone: Start: 03-13-2024 End: 03-13-2024 ambulatory Peter Booth Facility:[facility] Start: 03-12-2024 End: 03-12-2024 Patient encounter procedure [facility] [place] Work Phone: Start: 03-12-2024 End: 03-12-2024 ambulatory NON STAFF [facility] Work Phone: Start: 02-29-2024 End: 02-29-2024 ambulatory [facility] Start: 02-27-2024 End: 02-27-2024 ambulatory NON STAFF [facility] Work Phone: Start: 02-27-2024 End: 02-27-2024 Departed Referred [facility] Start: 02-26-2024 End: 02-27-2024 ambulatory Peter Booth Facility:[facility] Start: 02-15-2024 End: 02-15-2024 ambulatory NON STAFF [facility] Work Phone: Start: 02-15-2024 End: 02-15-2024 Patient encounter procedure [facility] Work Phone: Start: 02-01-2024 End: 02-01-2024 ambulatory VICTOR M LUJAN Not Available Start: 01-25-2024 End: 01-26-2024 ambulatory Audra Reynoso APRN-ADITI Facility:[facility] Start: 01-12-2024 End: 01-13-2024 ambulatory Alec Patel MD Facility:[facility] Start: 01-05-2024 End: 01-06-2024 ambulatory Audra Reynoso 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[employer] Facility:[facility] Start: 12-15-2023 End: 12-15-2023 ambulatory VICTOR M LUJAN Not Available Start: 08-23-2023 End: 08-23-2023 ambulatory [facility] Start: 07-11-2023 End: 07-11-2023 ambulatory [facility] Start: 09-01-2022 End: 09-01-2022 ambulatory [facility] Start: 09-01-2022 End: 09-01-2022 Encounter for antibody response examination [facility] Start: 10-14-2021 End: 10-15-2021 ambulatory [facility] Start: 10-13-[address] [facility] Start: 04-02-2020 End: 04-02-2020 Subsequent hospital visit by physician Yesica MILL[facility] Start: 05-31-2019 End: 05-31-2019 Subsequent hospital visit by physician Yesica MILLER [facility] Comment on above: History of bariatric surgery; [...] Result Comment: PERF ORMED BY: [facility] [address] PATHOLOGIST [employer] PRODUCER GENO BENEDICT M.D. Start: 03-12-2024 Methicillin resistan [...] Td Vaccines (3 - Td or Tdap) [facility] Start: 04-16-2029 Screening for malign ant neoplasm of cervix [facility] Start: 04-16-2027 Screening for malign ant neoplasm of cervix Pap Smear [facility] Start: 09-04-2025 Adult BMI Screening Adult BMI Screen ing [facility] Start: 09-04-2025 Tobacco Screening Tobacco Screening [facility] Start: 09-04-2025 End: 09-04-2025 US MFM with or without consult US MFM with or without consult Imaging Routine 21 weeks gestation of Retained intrauterine device (IUD) during in second trimester History of gastric bypass Multigravida of advanced maternal age in second trimester Expected: 09/04/2025 (Approximate), Expires: 09/04/2025 [employer] Work Phone: Comment on above: Expected: 09/04/2025 (Approximate), Expires: 09/04/2025 Start: 07-05-2025 Adult BMI Screening Adult BMI Screen ing [facility] Start: 07-05-2025 Tobacco Screening Tobacco Screening [facility] Start: 07-05-2025 End: 07-05-2025 US MFM with or without consult US MFM with or without consult Imaging Routine Retained intrauterine device (IUD) during in second trimester BMI 36.0-36.9,adult Multigravida of advanced maternal age in second trimester Expected: 07/05/2025 (Approximate), Expires: 07/05/2025 [employer] Work Phone: Comment on above: Expected: 07/05/2025 (Approximate), Expires: 07/05/2025 Start: 05-31-2025 Adult BMI Screening Adult BMI Screen ing [facility] [employer] Start: 05-31-2025 End: 05-31-2025 US MFM with or without consult US MFM with or without consult Imaging Routine Retained intrauterine device (IUD) during in first trimester Expected: 05/31/2025 (Approximate), Expires: 05/31/2025 [employer] Work Phone: Comment on above: Expected: 05/31/2025 (Approximate), Expires: 05/31/2025 Start: 12-12-2024 End: 12-12-2024 Patient encounter procedure [facility] Start: 11-28-2024 End: 11-28-2024 Patient encounter procedure 11/28/2024 9:45 AM EST Appointment [facility] [place] [address] [facility] [address] [place] [address] [facility] [place] Start: 11-21-2024 End: 02-27-2026 US for US [...] AM EST Routine [facility] [address] [place] [id number] Catrachito Aiken DO [address] [place] [address] [facility] Start: 10-31-2024 End: 10-31-2024 Patient encounter procedure 10/31/2024 8:30 AM EST Routine [facility] [address] [place] [address] Genevieve Donovan PA [address] [place] [address] [facility] Start: 10-15-2024 End: 10-15-2024 Patient encounter procedure 10/15/2024 10:00 AM EST Appointment [facility] [address] [place] [address] [facility] Start: 10-01-2024 End: 10-01-2025 CBC panel - Blood by Automated count CBC Lab Routine Diabetes mellitus screening Expected: 10/01/2024 (Approximate), Expires: 10/01/2025 [facility] Work Phone: Comment on above: Expected: 10/01/2024 (Approximate), Expires: 10/01/2025 Start: 10-01-2024 End: 10-01-2024 Patient encounter procedure 10/01/2024 9:50 AM EST Routine [facility] [address] [place] [address] Catrachito Aiken, DO [address] [place], [place] [id number] Arrived [facility] Comment on above: Arrived Start: 09-11-2024 End: 09-11-2024 Alpha fetoprotein, maternal Alpha fetoprotein, maternal Lab Routine Need for maternal serum alpha-protein (MSAFP) screening Expected: 09/11/2024 (Approximate), Expires: 09/11/2024 [facility] Comment on above: Expected: 09/11/2024 (Approximate), Expires: 09/11/2024 Start: 09-09-2024 End: 09-09-2024 Patient encounter procedure 09/09/2024 2:00 PM EST Routine [facility] [address] [place] [phone] Catrachito Aiken, DO [address] [place] [address] [facility] Start: 09-04-2024 Adult BMI Screening Adult BMI Screen ing [facility] Start: 09-04-2024 Tobacco Screening Tobacco Screening [facility] Start: 08-20-2024 End: 08-20-2024 Patient encounter procedure [facility] Start: 08-14-2024 End: 08-14-2024 Patient encounter procedure 08/14/2024 1:30 PM EST Routine [facility] [address] [place] [address] Genevieve Donovan, ALTAF [address] [place] [address] [facility] Start: 07-16-2024 End: 07-16-2024 Patient encounter procedure 07/16/2024 11:10 AM EDT Routine [facility] [address] [place] [address] Catrachito Aiken DO [address] [place] [address] [facility] Start: 07-05-2024 End: 07-05-2024 Patient encounter procedure [facility] Start: 06-21-2024 End: 06-21-2024 Professional / ancillary services management 06/21/2024 10:30 AM EDT Ancillary Procedure [facility] [address] [place] [phone] [facility] Start: 06-18-2024 End: 06-18-2024 Patient encounter procedure 06/18/2024 2:00 PM EDT Office Visit [facility] [address] [place] [phone] Sandrita Bowers, [facility] [address] [place], [place] [id number] [facility] Start: 06-17-2024 End: 06-17-2025 ABO/Rh ABO/Rh Lab Routine Missed menses Expected: 06/17/2024 (Approximate), Expires: 06/17/2025 [facility] Comment on above: Expected: 06/17/2024 (Approximate), Expires: 06/17/2025 Start: 06-17-2024 End: 06-17-2025 Alanine aminotransferase [Enzymatic activity/volume] in Serum or Plasma ALT Lab Routine Multigravida of advanced maternal age in first trimester Expected: 06/17/2024 (Approximate), Expires: 06/17/2025 [facility] Comment on above: Expected: 06/17/2024 (Approximate), Expires: 06/17/2025 Start: 06-17-2024 End: 06-17-2025 Aspartate aminotransferase [Enzymatic activity/volume] in Serum or Plasma AST Lab Routine Multigravida of advanced maternal age in first trimester Expected: 06/17/2024 (Approximate), Expires: 06/17/2025 [facility] Comment on above: Expected: 06/17/2024 (Approximate), Expires: 06/17/2025 Start: 06-17-2024 End: 06-17-2025 Blood type and Indirect antibody screen panel - Blood Type and screen Lab Routine Missed menses Expected: 06/17/2024 (Approximate), Expires: 06/17/2025 [facility] Work Phone: Comment on above: Expected: 06/17/2024 (Approximate), Expires: 06/17/2025 Start: 06-17-2024 End: 06-17-2025 CBC W Auto Differential panel - Blood [facility] Comment on above: Ordered: 06/17/2024 Expected: 06/17/2024 (Approximate), Expires: 06/17/2025 Start: 06-17-2024 End: 06-17-2025 Creatinine [Mass/volume] in Serum or Plasma Creatinine Lab Routine Multigravida of advanced maternal age in first trimester Expected: 06/17/2024 (Approximate), Expires: 06/17/2025 [facility] Comment on above: Expected: 06/17/2024 (Approximate), Expires: 06/17/2025 Start: 06-17-2024 End: 06-17-2025 Drugs of abuse panel - Urine by Screen method Rapid drug screen, urine Lab Routine Missed menses Encounter for supervision of normal first in first trimester , unspecified gestational age Expected: 06/17/2024 (Approximate), Expires: 06/17/2025 [facility] Comment on above: Expected: 06/17/2024 (Approximate), Expires: 06/17/2025 Start: 06-17-2024 End: 06-17-2025 Lactate dehydrogenase [Enzymatic activity/volume] in Serum or Plasma by Lactate to pyruvate reaction Lactate dehydrogenase Lab Routine Multigravida of advanced maternal age in first trimester Expected: 06/17/2024, Expires: 06/17/2025 [facility] Comment on above: Expected: 06/17/2024 , Expires: 06/17/2025 Start: 06-17-2024 End: 06-17-2025 Protein, urine, 24 hour Protein, urine, 24 hour Lab Routine Multigravida of advanced maternal age in first trimester Expected: 06/17/2024 (Approximate), Expires: 06/17/2025 [facility] Comment on above: Expected: 06/17/2024 (Approximate), Expires: 06/17/2025 Start: 06-17-2024 End: 06-17-2025 Pt and ptt Pt and ptt Lab Routine Multigravida of advanced maternal age in first trimester Expected: 06/17/2024, Expires: 06/17/2025 [facility] Comment on above: Expected: 06/17/2024 , Expires: 06/17/2025 Start: 06-17-2024 End: 06-17-2025 Urate [Mass/volume] in Serum or Plasma Uric acid Lab Routine Multigravida of advanced maternal age in first trimester Expected: 06/17/2024 (Approximate), Expires: 06/17/2025 [facility] Comment on above: Expected: 06/17/2024 (Approximate), Expires: 06/17/2025 Start: 06-17-2024 End: 06-17-2025 Urea nitrogen [Mass/volume] in Serum or Plasma BUN Lab Routine Multigravida of advanced maternal age in first trimester Expected: 06/17/2024, Expires: 06/17/2025 [facility] Comment on above: Expected: 06/17/2024 , Expires: 06/17/2025 Start: 06-17-2024 End: 06-17-2025 US Pelvis transvaginal US OB transvaginal Imaging Routine complicated by intrauterine device (IUD) Expected: 06/17/2024 (Approximate), Expires: 06/17/2025 [facility] Comment on above: Expected: 06/17/2024 (Approximate), Expires: 06/17/2025 Start: 06-17-2024 End: 06-17-2024 Patient encounter procedure 06/17/2024 10:50 AM EDT Routine [facility] [address] [place] [address] Catrachito Aiken DO [address] [place] [address] Arrived [facility] Comment on above: Arrived Start: 06-11-2024 X-ray of left knee XR knee LT 3V - NOT FOR ER USE [facility] Start: 06-11-2024 XR Knee - left 3 Views [facility] Start: 05-31-2024 End: 05-31-2024 Patient encounter procedure [facility] Start: 05-26-2024 COVID-19 Vaccine ( season) COVID-19 Vaccine ( season) [facility] Start: 05-26-2024 COVID-19 Vaccine ( season) COVID-19 Vaccine ( season) [facility] Start: 05-26-2024 Influenza vaccination [facility] Start: 05-23-2024 End: 05-23-2024 Professional / ancillary services management 05/23/2024 3:45 PM EDT Ancillary Procedure [facility] [address] [phone] [facility] Start: 05-23-2024 End: 05-23-2024 ambulatory 05/23/2024 3:30 PM EDT Initial [facility] [address] [place] [phone] Sandrita Bowers, [facility] [address] [place], [place] [id number] Arrived [facility] Comment on above: Arrived Start: 04-29-2024 Hospital admission [facility] Start: 04-29-2024 End: 04-29-2024 [facility] Start: 04-29-2024 Physical therapy procedure [facility] Start: 04-19-2024 Plain X-ray of left femur XR femur L T 2V* [facility] Start: 04-19-2024 Plain X-ray of left tibia and left fibula XR tibia fibula LT 2V* [facility] Start: 04-19-2024 XR Femur - left 2 Views [facility] Start: 04-19-2024 XR Tibia and Fibula - left 2 Views [facility] Start: 04-15-2024 [facility] Start: 03-12-2024 MRSA Culture MRSA Culture [facility] Start: 02-15-2024 Pelvis X-ray XR pelvis 1-2V [facility] Start: 02-15-2024 Radiologic examinati on of knee XR knee LT 4V* [facility] Start: 02-15-2024 XR Knee - left 4 Views [facility] Start: 02-15-2024 XR Pelvis 1 or 2 Views [facility] Start: 07-02-2022 DTaP/Tdap/Td vaccine (2 - Td) DTaP/Tdap/Td vaccine (2 - Td) [place] Start: 05-26-2020 Influenza vaccination Flu vaccine (# 1) [place] Start: 04-21-2020 End: 04-21-2020 Office Visit 04/21/2020 Office Visit Obstetrics and Gynecology Karel Palm DO [address] [place], [place] [id number] [phone] [facility] 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[employer] [place] Start: 05-26-2019 Influenza vaccination Flu vaccine (# 1) [place] Start: 2018 Screening for malign ant neoplasm of cervix [facility] Start: 2009 Cervical cancer screen Cervical canc er screen [place], [place] Start: 2009 Screening for malign ant neoplasm of cervix [facility] Start: 2007 DTaP/Tdap/Td vaccine (1 - Tdap) DTaP/Tdap/Td vaccine (1 - Tdap) [place] Start: 2006 Adult BMI Follow Up Plan Adult BMI [facility] Start: 2003 HIV screen HIV screen Bina Bryan [place], [place] Start: 2003 HIV screening HIV screen Bina Solomon [place], [place] Start: 2001 Varicella Vaccine (1 of 2 - 13+ 2-dose series) Varicella Vaccine (1 of 2 - 13+ 2-dose series) [place] Start: 2000 Depression Screening Depression Scre brittany [facility] Start: 1989 Varicella vaccine (1 of 2 - 2-dose childhood series) Varicella vaccine (1 of 2 - 2-dose childhood series) [place] Bacteria identified in Urine by Culture Urine culture Microbiology Routine Missed menses Ordered: 06/17/2024 [facility] Comment on above: Ordered: 06/17/2024 CHLAMYDIA TRACHOMATI S (GENITO/STI) CHLAMYDIA TRACHOMATIS (GENITO/STI) Lab Routine Exposure to STD Ordered: 08/12/2024 [facility] Comment on above: Ordered: 08/12/2024 End: 05-31-2019 Cobalamin (Vitamin B12) [Mass/Vol] Vitamin B12 Lab Routine History of bariatric surgery 1 Occurrences starting 05/31/2019 until 05/31/2019 [place] Comment on above: 1 Occurrences starti ng 05/31/2019 until 05/31/2019 Cobalamin (Vitamin B 12) [Mass/Vol] Vitamin B12 Lab Routine History of bariatric surgery 05/31/2019 8:42 AM EDT [place] Cotinine [Mass/volum e] in Serum or Plasma [facility] Cotinine [Mass/volum e] in Serum or Plasma [facility] End: 04-02-2020 Covid-19 Ambulatory Covid-19 Ambulatory Lab Routine Once for 1 Occurrences starting 04/02/2020 until 04/02/2020 [place] Comment on above: Once for 1 Occurrenc es starting 04/02/2020 until 04/02/2020 Covid-19 Ambulatory Covid-19 Amb ulatory Lab Routine 04/02/2020 10:12 PM EDT [place] Glucose measurement estimated from glycated hemoglobin [facility] Hemoglobin A1c/Hemoglobin.total in Blood Hemoglobin A1c Lab Routine Missed menses Ordered: 06/17/2024 [facility] Comment on above: Ordered: 06/17/2024 Hepatitis B virus herr rface Ag [Presence] in Serum or Plasma by Immunoassay Hepatitis B surface antigen Lab Routine Missed menses Ordered: 06/17/2024 [facility] Comment on above: Ordered: 06/17/2024 Hepatitis C virus Ab [Presence] in Serum or Plasma by Immunoassay Hepatitis C antibody Lab Routine Missed menses Ordered: 06/17/2024 [facility] Comment on above: Ordered: 06/17/2024 HIV-1/HIV-2 antigen/antibody combination immunoassay HIV-1 and HIV-2 antibodies Lab Routine Missed menses Ordered: 06/17/2024 [facility] Comment on above: Ordered: 06/17/2024 Methicillin resistan t Staphylococcus aureus [Presence] in Unspecified specimen by Organism specific culture [facility] MR Knee - left WO contrast F [facility] Neisseria gonorrhoea e DNA [Presence] in Unspecified specimen by SORIN with probe detection Neisseria gonorrhea DNA probe, direct Lab Routine Exposure to STD Ordered: 08/12/2024 [facility] Comment on above: Ordered: 08/12/2024 Nicotine [Mass/volum e] in Serum or Plasma [facility] Nicotine [Mass/volum e] in Serum or Plasma [facility] Patient Education Know your Meds [facility] Work Phone: Reagin Ab [Presence] in Serum by RPR RPR Lab Routine Missed menses Ordered: 06/17/2024 [facility] Comment on above: Ordered: 06/17/2024 Rubella antibody, IgG Rubella an tibody, IgG Lab Routine Missed menses Ordered: 06/17/2024 [facility] Comment on above: Ordered: 06/17/2024 SURESWAB(R) ADVANCED VAGINITIS PLUS, TMA SURESWAB(R) ADVANCED VAGINITIS PLUS, TMA Pathology and Cytology Routine Exposure to STD Ordered: 08/12/2024 [facility] Work Phone: Comment on above: Ordered: 08/12/2024 End: 03-31-2025 US for US OB follow up transabdominal approach Imaging Routine Retained intrauterine device (IUD) during in second trimester every 4 weeks for 4 Occurrences starting 10/01/2024 until 03/31/2025 [facility] Comment on above: every 4 weeks for 4 Occurrences starting 10/01/2024 until 03/31/2025 [facility] Immunizations Immunization Date Immunization Notes Care Provider Marty cerna 07-10-2024 influenza virus vaccine, unspecified formulation Catrachitodamian Villatoroo DO Work Phone: [facility] 07-29-2021 COVID-19 mRNA-1273 (Moderna) [facility] 10-29-2020 COVID-19 mRNA-1273 (Moderna) [facility] 10-01-2020 COVID-19 mRNA-1273 (Moderna) [facility] 06-30-2020 influenza virus vaccine, unspecified formulation Sandrita Floro CNM Work Phone: [facility] 07-03-2019 influenza virus vaccine, unspecified formulation Yesica Khan [place] 06-05-2017 influenza, seasonal, injectable Sandrita Floro CNM Work Phone: [facility] 05-12-2017 influenza, injectabl e, quadrivalent, preservative free Sandrita Floro CNM Work Phone: [facility] 07-02-2012 tetanus toxoid, redu [place] diphtheria toxoid, and acellular pertussis vaccine, adsorbed Yesica Khan [facility] 05-18-2001 measles, mumps and rubella virus vaccine Sandrita Floro CNM Work Phone: [facility] Payers Date Payer Category Payer Commercial Managed C are - HMO [id number] 2024 Managed Care HMO (unspecified) [id number] 2024 Unknown [id number] 2024 Self-pay [id number] 2023 Blue Cross Blue Shield BCBS [id number] 2023 Unknown 2023 Unknown [id number] 2022 Unknown [id number] 2020 Unknown [id number] 2018 Unknown [employer]ICAL M[employer]UAL M ED[employer] M[employer]UAL [employer] MH EMP xxxxxxxxxxxx 2018-Present [phone] [address] [place] [address] xxxxxxxxxxxx [id number] 2018 Medicaid [id number] 2014 Unknown [employer] ADVANT AGE [employer]AGE xxxxxxxxxxx 2014-Present [phone] [address] [place] [address] xxxxxxxxxxx [id number] 1988 Unknown [id number] 2.16.840.1.798561.3.579.2 .196 1990 Unknown [id number] 2.16.840.1.854644.3.579.2 .196 1988 Unknown [id number] 2.16.840.1.343359.3.579.2 .196 1988 Unknown [id number] 2.16.840.1.267367.3.579.2 .1286 1988 Unknown [id number] 2.16.840.1.691362.3.579.2 .1285 1988 Unknown [id number] 2.16.840.1.359427.3.579.2 .1285 1988 Unknown [id number] 2.16.840.1.818128.3.579.2 .1285 1988 Unknown [id number] 2.16.840.1.166681.3.579.2 .1285 1988 Unknown [id number] 2.16.840.1.204941.3.579.2 .1285 1988 Unknown [id number] 2.16.840.1.404982.3.579.2 .1285 1988 Unknown [id number] 2.16.840.1.783959.3.579.2 .1285 1988 Unknown [id number] 2.16.840.1.687824.3.579.2 .1285 1988 Unknown [id number] 2.16.840.1.669215.3.579.2 .8 1988 Unknown [id number] 2.16.840.1.220557.3.579.2 .1988 Unknown [id number] 2.16.840.1.843937.3.579.2 .1988 Unknown [id number] 2.16.840.1.983157.3.579.2 .1988 Unknown [id number] 2.16.840.1.958635.3.579.2 .1988 Unknown [id number] 2.16.840.1.352583.3.579.2 .1988 Unknown [id number] 2.16.840.1.776236.3.579.2 .718 1988 Unknown [id number] 2.16.840.1.381235.3.579.2 .718 1988 Unknown [id number] 2.16.840.1.088396.3.579.2 .9 1988 Unknown [id number] 2.16.840.1.837114.3.579.2 .9 1988 Unknown [id number] 2.16.840.1.060778.3.579.2 .1258 1988 Unknown [id number] 2.16.840.1.178993.3.579.2 .1258 1988 Unknown [id number] 2.16.840.1.835378.3.579.2 .1258 1988 Unknown [id number] 2.16.840.1.676158.3.579.2 .1258 1988 Unknown [id number] 2.16.840.1.670033.3.579.2 .9 1988 Unknown [id number] 2.16.840.1.300749.3.579.2 .1258 1988 Unknown [id number] 2.16.840.1.808887.3.579.2 .9 1988 Unknown [id number] 2.16.840.1.406106.3.579.2 .1258 1988 Unknown [id number] 2.16.840.1.108679.3.579.2 .1258 1988 Unknown [id number] 2.16.840.1.153207.3.579.2 .1258 1988 Unknown [id number] 2.16.840.1.522535.3.579.2 .1258 1988 Unknown [id number] 2.16.840.1.203167.3.579.2 .1258 1988 Unknown [id number] 2.16.840.1.613205.3.579.2 .1286 Unknown [facility] Employees [id number] Unknown [id number] 2.16.840.1.394291.3.579.2 .531 Unknown [id number] 2.16.840.1.585184.3.579.2 .531 Unknown [id number] 2.16.840.1.588275.3.579.2 .531 Unknown [id number] 2.16.840.1.009199.3.579.2 .531 Social History Date Type Detail Facility Start: 05-17-2019 End: 01-03-2020 Tobacco smoking status NHIS Former smoker [place] Start: 05-17-2019 End: 04-25-2024 Cigarettes smoked current (pack per day) - Reported [place] Start: 05-17-2019 End: 04-25-2024 Alcohol intake Yes [place] Start: 05-17-2019 Alcohol Comment social [place] Start: 1990 Sex Assigned At Not on file [place] Start: 01-03-2020 End: 11-21-2024 Alcohol intake Current drinker of alcohol (finding) [place] Start: 11-14-2019 End: 04-20-2023 Tobacco smoking status MTIS Never smoked tobacco (finding) [facility] Start: 1990 Sex Assigned At Female F [facility] Start: 07-29-2016 End: 04-20-2023 Tobacco use and exposure Smokeless tobacco non-user [facility] Start: 04-21-2024 [facility] Unknown [facility] Start: 07-29-2016 Alcohol Comment 1-2 drinks per month [facility] Start: 07-05-2024 End: 09-04-2024 Alcoholic beverage intake Ex-drinker (finding) [facility] Start: 04-30-2015 Sex Female (finding) [facility] NEGATED: Highlighted row [facility] Medical Equipment Procedure Code Equipment Code Equipment Origin al Text Equipment Identifier Dates Arthroplasty, knee, total, minimally invasive Uncoated unicondylar knee femur prosthesis [id number] FDA Start: 04-29-2024 Arthroplasty, knee, total, minimally invasive Uncoated unicondylar knee tibia prosthesis, metallic ()[id number] FDA Start: 04-29-2024 Arthroplasty, knee, total, minimally invasive Unicondylar knee insert ()[id number] FDA Start: 04-29-2024 Arthroplasty, knee, total, minimally invasive Orthopaedic cement, non-medicated ()[id number] FDA Start: 04-29-2024 1 strip by In Vi tro route Daily Use in the morning prior to breakfast, 1 hour after each meal for a total of 4times daily. [id number] Start: 07-08-2024 End: 08-07-2024 1 each by In Vit ro route Daily Use to check FSBS four times daily [id number] Start: 07-08-2024 End: 08-07-2024 Goals Date Patient Goal Desired Activity /State Clinical Notes 07-11-2023 to 11-21-2024 Mariaelena Machado LPN - 11/21/2024 11:50 AM Chapito Machado RAILWAY SWITCH OPERATOR - 11/07/2024 1:30 PM Swati Fisher [...] nursing note reviewed. Exam conducted with a director correctional agency present. Vitals: Estimated body mass index is [...] on Monday, but encouraged to report to [facility] at this time to have [...] by Mariaelena Machado LPN on behalf of: Catrahcito Aiken DO documented in this encounter [facility] 11-07-2024 History of Present illness Narrative [...] nursing note reviewed. Exam conducted with a director correctional agency present. Vitals: Estimated body mass index is [...] Catrachito Aiken DO documented in this encounter [facility] 11-06-2024 Note Patient Education Ma terials [...] or lying down. General instructions ? Take lsdq-vne-pihnrru and prescription medicines only as told by [...] provider. Document Revised: 03/06/2023 Document Reviewed: 03/06/2023 Voices Patient Education ? 2023 [employer] Contusion A contusion is a deep bruise. Contusions are the result of a blunt injury to tissues and muscle fibers under the skin. The injury causes bleeding under the skin. The skin over the contusion may turn blue, p (more content not included)... [facility] 10-01-2024 History of Present illness Narrative Reason [...] nursing note reviewed. Exam conducted with a director correctional agency present. Vitals: Estimated body mass index is [...] Catrachito Aiken DO documented in this encounter [facility] 09-04-2024 History of Present illness Narrative [...] 03/30/2022 Performed by Mason Martinez DO at [facility] SECTION 06/25/2012 SECTION 10/26/2014 laparoscopic hiatal hernia repair N/A 08/05/2016 Performed by Vahe Fernandez MD at [facility] LAPAROSCOPIC SLEEVE GASTRECTOMY POSSIBLE CLOSURE OF DIAPHRAGMATIC CRURA DNM-CLINIC N/A 08/05/2016 Performed by Vahe Fernandez MD at [facility] MICRODISCECTOMY LUMBAR Allergies: Allergies Allergen Reactions [...] Resource Strain: Low Risk (03/13/2024) Received from [facility] Overall Financial Resource Strain (CARDIA) Difficulty of Paying Living Expenses: Not hard at all Food Insecurity: No Food Insecurity (07/05/2024) Hunger Screening Food Insecurity - Worry: Never True Food Insecurity - Inability: Never True Transportation Needs: Unknown (03/13/2024) Received from [facility] PRAPARE - Transportation Lack of Transportation (Medical): Not on file Lack of Transportation (Non-Medical): No Physical Activity: Not on file Stress: Not on file Social Connections: Not on file Interpersonal Safety: Not on file Housing Instability: Unknown (03/13/2024) Received from [facility] Housing Stability Vital Sign Unable to [...] - 1.00 mg/dL Final METHOD TRACEABLE TO IDWI STANDARD eGFR (CKD-EPI)non-race dependent 07/10/2024 >90 >59 [...] gestation of [Z3A.21] Please refer to prior [facility] recommendations and consultation notes Ultrasound was [...] primary OB office. If you would like [facility] to perform the growth ultrasound please place a referral Weekly NST and DVP from 34 weeks until delivery due to the patient's medical co-morbidities. To be done in primary OB office Delivery recommended at 39 weeks or earlier as clinically indicated to remove IUD at time of section. The patient desires tubal ligation The patient has a scheduled ultrasound with [facility] She does not have future follow-up visits at [facility] if you would like for us to see the patient again please reach out was The patient is to continue with routine care in your office Thank you for allowing me to participate in her care. Please contact me if you have any concerns. Christen Reid MD, FACOG (she/hers) Maternal- Medicine [facility] [address] [place] [address] This document was created with Sprout[employer] technology. Though I make every effort to review the dictation as it is transcribed, on occasion the spoken word can be misinterpreted by the technology leading to inappropriate words, phrases, or sentences. This note is addressed to the requesting provider as a consultation for clinical guidance. Specific medical abbreviations are occasionally used and those are generally approved by the [place]?Board of?Obstetrics and?Gynecology?as well as?Vilma mckeon abbreviations. The above plan of care was based solely on the diagnoses for which a consultation was requested. ?More frequent testing may be indicated based on her other medical/obstetrical conditions. The management of other or medical conditions is beyond the scope of requested consultation and will continue to be followed by the primary assembler unit or primary care provider. Note to patient: [...] provider today? No documented in this encounter [facility] 08-12-2024 History of Present illness Narrative Reason [...] of: [place] documented in this encounter [facility] 07-16-2024 History of Present illness Narrative Reason for Appointment: Patient ID: Lucila Jacques is a 34 y.o. female who presents for No chief complaint on file. Patient presents today for Return OB appointment. MEDICATIONS Current Outpatient Medications Medication Instructions Alcohol Swabs (Alcohol Prep Pad) 70 % pads 1 Pad, Topical, Daily, Use four times daily to check FSBS. Blood Glucose Monitoring Suppl (Applied NanoWorks Glucometer) w/Device kit 1 kit, Does not [...] History: Diagnosis Date Migraine headache (CMS/[facility]) Social History Tobacco Use Smoking status: [...] nursing note reviewed. Exam conducted with a director correctional agency present. Vitals: Estimated body mass index is [...] or undercooked meat, and stay away from [facility]. Patient has been consulted regarding any further do's and don'ts of . Patient voiced understanding and all questions and concerns were answered. Orders Placed This Encounter Procedures POCT urinalysis dipstick manually resulted Follow Up: Patient is to return in 4 weeks for routine OB appointment. Documented by Vikki Fisher LPN on behalf of: Catrachito Aiken DO documented in this encounter [facility] 07-05-2024 History of Present illness Narrative [...] yes Have you been seen here at [facility] in a previous ? Yes Recent ER visits or hospitalizations? no Bring blood sugar log or meter with you today? (Please bring them with you for every visit at [facility]) n/a Flu vaccine (Jul-November)? no Any [...] 03/30/2022 Performed by Mason Martinez DO at [facility] SECTION 06/25/2012 SECTION 10/26/2014 laparoscopic hiatal hernia repair N/A 08/05/2016 Performed by Vahe Fernandez MD at [facility] LAPAROSCOPIC SLEEVE GASTRECTOMY POSSIBLE CLOSURE OF DIAPHRAGMATIC CRURA [facility] N/A 08/05/2016 Performed by Vahe Fernandez MD [...] Resource Strain: Low Risk (03/13/2024) Received from [facility] Overall Financial Resource Strain (CARDIA) Difficulty of Paying Living Expenses: Not hard at all Food Insecurity: No Food Insecurity (07/05/2024) Hunger Screening Food Insecurity - Worry: Never True Food Insecurity - Inability: Never True Transportation Needs: Unknown (03/13/2024) Received from [facility] PRAPARE - Transportation Lack of Transportation (Medical): Not on file Lack of Transportation (Non-Medical): No Physical Activity: Not on file Stress: Not on file Social Connections: Not on file Interpersonal Safety: Not on file Housing Instability: Unknown (03/13/2024) Received from [facility] Housing Stability Vital Sign Unable [...] bring it to the attention of her assembler unit to confirm intact expulsion. 2. Obesity affecting [...] to be sent by Dr. Aiken's office. [facility] is happy to review sugar log [...] continue with routine care in your office [facility], the CDC, and other organizations representing maternal and public health professionals recommend that , , and lactating people and those considering receive the COVID-19 vaccination. Vaccination is the best method to reduce maternal and complications of SARS-CoV-2 infection. This document was created with [employer]out[employer] technology. Though I make every effort to review the dictation as it is transcribed, on occasion the spoken word can be misinterpreted by the technology leading to inappropriate words, phrases, or sentences. This note is addressed to the requesting provider as a consultation for clinical guidance. Specific medical abbreviations are occasionally used and those are generally approved by the [place]?Board of?Obstetrics and?Gynecology?as well as?Vilma s abbreviations. The above plan of care was based solely on the diagnoses for which a consultation was requested. ?More frequent testing may be indicated based on her other medical/obstetrical conditions. The management of other or medical conditions is beyond the scope of requested consultation and will continue to be followed by the primary assembler unit or primary care provider. Thank you for [...] Referring and communicating with other health animal care worker (not separately reported) Documenting clinical information in the electronic or other health record Independently interpreting results (not separately reported) and communicating results to the patient/family/caregiver Care coordination (not separately reported) documented in this encounter [facility] [employer] 06-17-2024 History of Present illness Narrative Reason [...] nursing note reviewed. Exam conducted with a director correctional agency present. Vitals: Estimated body mass index is [...] to continue and OB care locally at [facility] office with Dr. Aiken along with M. Patient advised to take 81mg Aspirin if tolerated. Gave patient orders for early 24 hour urine and lab workup. Patient to return to clinic in 4 weeks. Documented by Mariaelena Machado LPN on behalf of: Catrachito Aiken DO documented in this encounter [facility] 05-31-2024 History of Present illness Narrative [...] Gastroesophageal reflux disease without esophagitis Morbid obesity ([facility]) Past Medical History: Diagnosis Date Anxiety [...] 03/30/2022 Performed by Mason Martinez DO at [facility] SECTION 06/25/2012 SECTION 10/26/2014 laparoscopic hiatal hernia repair N/A 08/05/2016 Performed by Vahe Fernandez MD at [facility] LAPAROSCOPIC SLEEVE GASTRECTOMY POSSIBLE CLOSURE OF DIAPHRAGMATIC CRURA DNM-CLINIC N/A 08/05/2016 Performed by Vahe Fernandez MD at [facility] MICRODISCECTOMY LUMBAR SLEEVE GASTROPLASTY 08/05/2016 ALLERGIES: [...] and the other consultants, we search on [employer] and all the available care everywhere epic I did review all the imaging studies of the patient available on EMR, ordered by the primary care physician and the other java developer consultant HABITS: Patient activity no restrictions, diet [...] 5 weeks for 1st trimester ultrasound at [facility] office. 4. Targeted anatomy at weeks gestation at [facility] office. 5. Serial growth ultrasounds 4 [...] patient is in complete care of her assembler unit. Patient does have ultrasound office visit scheduled with us. Thank you for allowing me to participate in Lucila Jacques . If there any questions please do not hesitate to contact us. Sincerely, LEXI ROBERTSON MD documented in this encounter [facility] 05-23-2024 History of Present illness Narrative Subjective [...] does also recommend for patient to see [facility] For their consultation also. PVU and [...] also given office phone number and [facility] number to call in case of an emergency or after hours needs. PVU and all questions answered. We did discuss place of delivery. Patient should plan to go to [facility] for all services unless an emergency and they need to go to the closest ER. We can make other arrangements possibly if patient would like to deliver at another facility but I did explain I am now at [place] 100% of the time and would like to do all deliveries there. documented in this encounter [facility] 05-22-2024 Telephone encounter Note Pt had an IUD inserted a month ago and has tested positive for , she hadn't been feeling good lately and it is positive, please call to discuss the next step, in her pregancy and IUD [facility] 05-22-2024 Miscellaneous Notes Pt had an IUD inserted a month ago and has tested positive for , she hadn't been feeling good lately and it is positive, please call to discuss the next step, in her pregancy and IUD documented in this encounter [facility] 02-27-2024 Note Education Materials Gastroenterology Laparoscopic [...] these instructions at home: Medicines ? Take ehsk-llk-txcydxd and prescription medicines only as told by [...] keep your urine pale yellow. ? Take vqpe-bvw-tbkwsbx or prescription medicines. ? Eat foods that [...] and water are not available, use hand cdc associate. ? Place dry dressings as needed. ? [...] Reviewed: 03/15/2022 Shaylee Patient Education ? 2022 [employer]. [facility] 02-27-2024 Note [facility] Clinical Discharge Summary PERSON INFORMATION Name LUCILA JACQUES Age 33 Years 1990 Sex FEMALE Language Kenyan PCP Provider, None Marital Status Med Service Observation Acct# Arrival 02/26/2024 22:40:28 Visit Reason Abdominal pain; ACUTE CHOLECYSTITIS Acuity LOS 000 10:25 Address: [address] [place] [address] Comment: PROVIDER INFORMATION VITALS INFORMATION Vital Sign [...] ibuprofen Medication List: New Medications [id number], [address] [place], [place] [id number], [phone] acetaminophen-hydrocodone (acetaminophen-hydrocodone 325 mg-5 mg oral tablet) [...] range between ( 1.3 and 2.9 ) [place] Abs#: 0.6 x103/mcL -- Normal range between ( 0.0 and 0.8 ) Auto Baso %: 0.4 % -- Normal range between ( 0.2 and 2.0 ) Auto [place] %: 8 % -- Normal range between [...] Anion Gap: 1 (more content not included)... [facility] 01-15-2024 Note [id number] [facility] 01-12-2024 Note [facility] SURGERY Clinical Discharge Summary PERSON INFORMATION Name LUCILA JACQUES Age 33 Years 1990 Sex FEMALE Language Kenyan PCP Provider, None Marital Status Med Service Pain Management Surgery Acct# Arrival 01/12/2024 10:59:54 Visit Reason GENICULAR PAIN Acuity LOS 004 01:11 Address: [address] [place] [address] Comment: PROVIDER INFORMATION VITALS INFORMATION Vital Sign [...] AM Confirmed DIAGNOSIS Comment: PHYS DOC NOTES [facility] 01-11-2024 Note [id number] The history of present illness has been reviewed. There are no changes document. [Electronically Signed on: 01/12/2024 11:34 EDT] ALEC PATEL MD [Verified on: 01/12/2024 11:34 EDT] ALEC PATEL MD [Transcribed on: 01/11/2024 13:06 EDT] [facility] 08-23-2023 Note Date of Telehealth V isit: 08/23/23 The patient was notified that using 3rd democrat telecommunication application (e.g. [employer]) is not HIPAA compliant and may carry some privacy risks: Yes This visit was conducted fzvr-wa-fjow with the use of audio and video [...] shortness of breath. She has been using kbpd-shy-ycecjss medications with minimal relief of symptoms. ROS: [...] EMR, and coordinating care. Ching Brooks PA-C [facility] 07-11-2023 Note [facility] Telemedicine Visit Date of Telehealth Visit: 07-11-2023 The patient was notified that using 3rd democrat telecommunication application (e.g. [employer]) is not HIPAA compliant and may carry some privacy risks This visit was conducted yhcj-ul-qlgk with the use of audio and video technology using [employer] between patient and the provider for a virtual visit. Verbal consent to provide and bill this service was obtained on: 07-11-2023 No signature was obtained due to the COVID-19 pandemic. Chief Complaint Patient presents with Headache HPI Patient is a 33-year-old female who presents the telemedicine service today with complaints of a 3-day history of migraines. Patient states that she is taken hhos-cbp-jptaalg Tylenol and Tylenol PM. She has a [...] today's date. Greater than 16 minutes spent hfrz-nz-ssea assessing patient, reviewing chart and discussing plan of care including treatment options. Care collaborated all questions answered. Rekha Mustafa PA-C Portions of this chart have been completed with voice recognition software, please excuse any errors. [facility] Evaluation note No assessment inform ation available [facility] Work Phone: Evaluation note Diagnosis Onset Date Primary osteoarthritis of left knee acute [facility] Work Phone: Evaluation note* Diagnosis Onset Date Resolution Status Primary osteoarthritis of left knee acute Primary osteoarthritis of left knee acute [facility] Work Phone: Evaluation note* Diagnosis Onset Date Resolution Status Primary osteoarthritis of left knee acute Status post left partial knee replacement acute [facility] Work Phone: Evaluation note* Diagnosis Onset Date Resolution Status Primary osteoarthritis of left knee acute Status post left partial knee replacement acute Status post left partial knee replacement acute [facility] Work Phone: Evaluation note* Diagnosis 14 weeks gestation of Second trimester state, incidental [facility] Diagnosis Exposure to STD Need for maternal serum alpha-protein (MSAFP) screening Screening, , for anatomic survey Encounter for anatomic survey Second trimester state, incidental 18 weeks gestation of documented in this encounter [facility]* Diagnosis examination or test, positive result- Primary IUD check up Amenorrhea Absence of menstruation documented in this encounter [facility]* Diagnosis Missed menses Encounter for supervision of normal first in first trimester , unspecified gestational age Encounter for screening for cervical length complicated by intrauterine device (IUD) induced hypertension, antepartum Transient hypertension of , antepartum Multigravida of advanced maternal age in first trimester documented in this encounter [facility] note* Diagnosis Second trimester state, incidental 25 weeks gestation of with normal glucose tolerance test (GTT) Diabetes mellitus screening Screening for diabetes mellitus Retained intrauterine device (IUD) during in second trimester documented in this encounter [facility]* Diagnosis Third trimester state, incidental 30 weeks gestation of with IUD in place, antepartum, first trimester documented in this encounter [facility]* Diagnosis Retained intrauterine device (IUD) during in first trimester- Primary [facility] Diagnosis Retained intrauterine device (IUD) during in first trimester- Primary [facility] Diagnosis Retained intrauterine device (IUD) during in second trimester- Primary BMI 36.0-36.9,adult Multigravida of advanced maternal age in second trimester documented [facility] Diagnosis Retained intrauterine device (IUD) during in second trimester- Primary Obesity affecting in second trimester, unspecified obesity type BMI 36.0-36.9,adult Multigravida of advanced maternal age in second trimester Anxiety during Depression affecting History of 2 sections History of knee replacement, unspecified laterality Bariatric surgery status complicating , second trimester Family history of clubfoot 12 weeks gestation of [facility] Diagnosis 21 weeks gestation of - Primary Retained intrauterine device (IUD) during in second trimester History of gastric bypass Obesity affecting in second trimester, unspecified obesity type with history of section, antepartum Multigravida of advanced maternal age in second trimester documented [facility] Diagnosis 21 weeks gestation of - Primary Retained intrauterine device (IUD) during in second trimester History of gastric bypass Multigravida of advanced maternal age in second trimester documented [facility]* Diagnosis 32 weeks gestation of Third trimester state, incidental with IUD in place, antepartum, first trimester documented in this encounter [facility] HealthcareInstructionsNot on filedocumented in this [facility] on filedocumented in this encounter[facility] System[facility]ructionsNot on filedocumented in this [facility] InstructionsNot on filedocumented in this [facility] InstructionsNot on filedocumented in this [facility] InstructionsNot on filedocumented in this [facility] System Instructions* Attachments The following attachments cannot be sent through Care Everywhere. 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 Advance Directives and Living Will Power of Wastewater Treatment Supervisor Advance Directive Response Recorded Date/ Time Advance [...] Lexi Robertson MD [address], [address] [place] [id number] [facility]aternal [facility] [address] [facility] [place] [address] Referral ID Status Reason Start Date Expiration Date V isits Requested Visits Authorized [id number] Pending Review 05/31/2024 05/31/2025 1 1 Specialty Diagnoses / Procedures Referred By Contac t Referred To Contact Maternal and Medicine Diagnoses Retained intrauterine device (IUD) during in second trimester BMI 36.0-36.9,adult Multigravida of advanced maternal age in second trimester Procedures US MFM with or without consult Mishel Segovia MD [address], [address] [place] [id number] [facility]aternal [facility] [address] [place] [address] Referral ID Status Reason Start Date Expiration Date V isits Requested Visits Authorized [id number] Pending Review 07/05/2024 07/05/2025 1 1 Additional Source Comments INFORMATION SOURCE (unrecogn ized section and content) DATE CREATED AUTHOR 10/18/2021 [facility] DATE CREATED AUTHOR AUTHOR'S ORGANIZ ATION 08/30/2023 [facility] DATE CREATED AUTHOR AUTHOR'S ORGANIZ ATION 02/02/2024 [facility] DATE CREATED AUTHOR AUTHOR'S ORGANIZ ATION 03/16/2024 [facility] DATE CREATED AUTHOR AUTHOR'S ORGANIZ ATION 06/13/2024 [facility] DATE CREATED AUTHOR AUTHOR'S ORGANIZ ATION 09/07/2024 [facility] DATE CREATED AUTHOR AUTHOR'S ORGANIZ ATION 10/16/2024 [facility] DATE CREATED AUTHOR AUTHOR'S ORGANIZ ATION 11/12/2024 [facility] DATE CREATED AUTHOR AUTHOR'S ORGANIZ ATION 11/23/2024 [facility] EPIC DATE CREATED AUTHOR [...] June 11, 2024 End: June 11, 2024 Trust Operations Assistant Relationship Specialty Start Date End Date Unallocated, Haley Garcia MD [address] [place] [address] PCP - General Family Medicine 02/01/24 Victor M Lujan, PICK PULLING MACHINE TENDER [address] [place] [address] PCP - [employer] 03/25/24 Team Status: Inactive Member Role Status Dates NON STAFF Primary Care Provider Active Start: July 17, 2024 End: July 17, 2024 Santa Etsrada II, MD Attending Provider Active Start: July 17, 2024 End: July 17, 2024 Trust Operations Assistant Relationship Specialty Start Date End Date Unallocated, Haley Garcia MD [address] [facility] [address] PCP - General Family Medicine 02/01/24 Victor M Lujan, PICK PULLING MACHINE TENDER [address] [place] [address] PCP - [employer] 03/25/24 Trust Operations Assistant Relationship Specialty Start Date End Date Unallocated, Haley Garcia MD [address] [place] [address] PCP - General Family Medicine 02/01/24 Victor M Lujan, PICK PULLING MACHINE TENDER [address] [place] [address] PCP - [employer] 03/25/24 Trust Operations Assistant Relationship Specialty Start Date End Date Unallocated, Haley Garcia MD [facility] [facility] [place] [address] PCP - General Family Medicine 02/01/24 Victor M Lujan, PICK PULLING MACHINE TENDER [address] [place] [address] PCP - [employer] 03/25/24 Trust Operations Assistant Relationship Specialty Start Date End Date Unallocated, Haley Garcia MD [facility] [place] [address] PCP - General Family Medicine 02/01/24 Victor M Lujan, PICK PULLING MACHINE TENDER [facility] [place] [address] PCP - [employer] 03/25/24 Trust Operations Assistant Relationship Specialty Start Date End Date Unallocated, Haley Garcia MD [facility] [place] [address] PCP - General Family Medicine 02/01/24 Victor M Lujan, PICK PULLING MACHINE TENDER [facility] [place] [address] PCP - [employer] 03/25/24 Trust Operations Assistant Relationship Specialty Start Date End Date Unallocated, Haley Garcia MD [facility] [place] [address] PCP - General Family Medicine 02/01/24 Victor M Lujan, PICK PULLING MACHINE TENDER [address] [place] [address] PCP - [employer] 03/25/24 Trust Operations Assistant Relationship Specialty Start Date End Date Unallocated, Haley Garcia MD [facility] [place] [address] PCP - General Family Medicine 02/01/24 Victor M Lujan, PICK PULLING MACHINE TENDER [address] [facility] [place] [address] PCP - [employer] 03/25/24 Trust Operations Assistant Relationship Specialty Start Date End Date Unallocated, Noms MD Radha [address] [place] [address] PCP - General Family Medicine 02/01/24 Victor M Lujan, PICK PULLING MACHINE TENDER [address] [facility] [address] PCP - [employer] 03/25/24 Trust Operations Assistant Relationship Specialty Start Date End Date Unallocated, Noms MD Radha [address] [place] [address] PCP - General Family Medicine 02/01/24 Victor M Lujan, PICK PULLING MACHINE TENDER [address] [facility] [place] [address] PCP - [employer] 03/25/24 Trust Operations Assistant Relationship Specialty Start Date End Date Unallocated, Nommike Garcia MD [address] [place] [address] PCP - General Family Medicine 02/01/24 Victor M Lujan, PICK PULLING MACHINE TENDER [address] [place] [address] PCP - [employer] 03/25/24 Trust Operations Assistant Relationship Specialty Start Date End Date Unallocated, Haley Garcia MD [address] [place] [address] PCP - General Family Medicine 02/01/24 Victor M Lujan, PICK PULLING MACHINE TENDER [address] [place] [address] PCP - [employer] 03/25/24 Trust Operations Assistant Relationship Specialty Start Date End Date Unallocated, Acs ProviderMD [address] [facility] [address] PCP - General Family Medicine 02/01/24 Victor M Lujan, PICK PULLING MACHINE TENDER [address] [facility] [address] PCP - [employer] 03/25/24 Trust Operations Assistant Relationship Specialty Start Date End Date Unallocated, Noms MD Radha [address] [place] [address] PCP - General Family Medicine 02/01/24 Victor M Lujan, PICK PULLING MACHINE TENDER [address] [facility] [place] [address] PCP - [employer] 03/25/24 Trust Operations Assistant Relationship Specialty Start Date End Date Unallocated, Noms MD Radha [address] [place] [address] PCP - General Family Medicine 02/01/24 Trust Operations Assistant Relationship Specialty Start Date End Date Pcp, [place] [address] PCP - General Family Medicine 09/04/23 Trust Operations Assistant Relationship Specialty Start Date End Date Pcp, [place] [address] PCP - General Family Medicine 09/04/23 Trust Operations Assistant Relationship Specialty Start Date End Date Pcp, [place] [address] PCP - General Family Medicine 09/04/23 Trust Operations Assistant Relationship Specialty Start Date End Date Pcp, [place] [address] PCP - General Family Medicine 09/04/23 Trust Operations Assistant Relationship Specialty Start Date End Date Pcp, [place] [address] PCP - General Family Medicine 09/04/23 Trust Operations Assistant Relationship Specialty Start Date End Date Pcp, [place] [address] PCP - General Family Medicine 09/04/23 Trust Operations Assistant Relationship Specialty Start Date End Date Pcp, [place] [address] PCP - General Family Medicine 09/04/23 Trust Operations Assistant Relationship Specialty Start Date End Date Pcp, [place] [address] PCP - General Family Medicine 09/04/23 Trust Operations Assistant Relationship Specialty Start Date End Date Unallocated, Noms Provider, [place] [address] PCP - General Family Medicine 02/01/24 Trust Operations Assistant Relationship Specialty Start Date End Date Pcp, [place] [address] PCP - General Family Medicine 09/04/23 Goals [...] BE BASED ON THE PRIMARY CLINICAL RECORDS. [email or web address] provides no warranty or guarantee of the accuracy or completeness of information in this document.
[2024-12-05 18:47] VITALS: BP 150/73; PULSE 85; TEMP 36.7; O2SAT 100; BMI 39.0
[2024-12-05] MEDS: FENTANYL CITRATE/PF 100 MCG/2 ML VIAL 12.5 MCG IV (19:20)
[2024-12-05] MEDS: DIPHENHYDRAMINE HCL 50 MG/ML VIAL 25 MG IV (19:21)
[2024-12-05] MEDS: METOCLOPRAMIDE HCL 10 MG/2 ML VIAL 5 MG IVP ×2 (19:22→20:13)
[2024-12-05] MEDS: 0.9 % SODIUM CHLORIDE 1,000 ML 1000 ML IV (19:24)
[2024-12-05] MEDS: DIPHENHYDRAMINE HCL 50 MG/ML VIAL 25 MG IVP (20:13)
[2024-12-05 20:17] VITALS: BP 122/64; PULSE 88; O2SAT 99
[2024-12-05 20:34] VITALS: BP 110/65; PULSE 75; O2SAT 99
--- NOTE | 2024-12-05 20:42 | ED.GENADUL1 ---
HPI HPI - General Adult General Chief complaint: Headache Stated complaint: MIGRAINE 34 WEEKS Time Seen by Provider: 12/05/24 19:01 Source: patient Mode of arrival: walk-in Limitations: no limitations History of Present Illness HPI narrative: Patient presents with a chief complaint of a left hemicranial headache that started 2 nights ago. Headache is gradually built up to its current intensity. She is photophobic and has nausea. She vomited a couple times today. She is 34 weeks and had gone up to labor and delivery before coming down to the ED. She denies infectious symptoms. Related Data Previous Rx's ?Medication ?Instructions ?Recorded metoclopramide HCl 10 mg tablet 10 mg PO BID PRN nausea and 12/05/24 (Reglan) vomiting #20 tabs Allergies Allergy/AdvReac Type Severity Reaction Status Date / Time amoxicillin Allergy Intermediate Unknown Verified 12/05/24 18:46 ibuprofen Allergy Intermediate Abdominal Verified 12/05/24 18:46 Pain magnesium Allergy Intermediate Hives Verified 12/05/24 18:46 potassium Allergy Intermediate Anaphylaxis Verified 12/05/24 18:46 Opioid HPI Opioid Management Most Recent Opioid Data: Last Pain Scale 4 12/05/24 20:41 12/05/24 Last ED Pain Assessment 12/05/24 20:41 Ur Phencyclidine Scrn Negative (NEGATIVE) 06/17/24 12:29 06/17/24 Review of Systems ROS Status of ROS 10 or more systems reviewed and unremarkable except as noted in history and below [facility] Social History Little interest or pleasure in doing things: not at all Feeling down, depressed, or hopeless: not at all Exam Narrative Exam Narrative: Afebrile with stable vital signs. Pupils are equal and reactive. EOMs are full. HEENT exam is normal to inspection. Neck is supple and is without meningeal signs. Lung sounds are clear to auscultation bilaterally. Heart has regular rate and rhythm. Abdomen is gravid, soft nontender. There is no facial asymmetry. Speech and mentation are clear and intact. She moves all extremities actively. Constitutional Vital Signs, click to edit/add: Last Vital Signs Temp 98.0 F 12/05/24 18:47 Pulse 75 12/05/24 20:34 Resp 19 12/05/24 20:34 BP 110/65 12/05/24 20:34 Pulse Ox 99 12/05/24 20:34 O2 Del Method Room Air 12/05/24 20:17 Course Vital Signs Vital signs: Vital Signs Temperature 98.0 F 12/05/24 18:47 Pulse Rate 85 12/05/24 18:47 Respiratory Rate 18 12/05/24 18:47 Blood Pressure 150/73 H 12/05/24 18:47 Pulse Oximetry 100 12/05/24 18:47 Oxygen Delivery Method Room Air 12/05/24 18:47 Temperature 98.0 F 12/05/24 18:47 Pulse Rate 75 12/05/24 20:34 Respiratory Rate 19 12/05/24 20:34 Blood Pressure 110/65 12/05/24 20:34 Pulse Oximetry 99 12/05/24 20:34 Oxygen Delivery Method Room Air 12/05/24 20:17 Medical Decision Making MDM Narrative Medical decision making narrative: Patient presents with a left hemicranial headache of 2 days duration without signs of infection. She is in her third trimester and has noticed increased frequency of headaches during her . She is treated with a liter of IV saline, fentanyl 25 mcg IV, Benadryl 25 mg IV and Reglan 5 mg IV. 1/2-hour later her headache intensity had come down from an initial 8 to a 6. Reglan and Benadryl were repeated and she is just feeling much better now stating that her headache intensity is down to 4 and she feels well enough to go home. She is prescribed Reglan 10 mg twice daily as needed nausea and vomiting at home and is to combine this with acetaminophen 1 g 3 times a day for headache as needed. Follow-up is with her physician and she may return anytime for worsening symptoms Differential Diagnosis Differential Diagnosis: Migraine headache, UTILITY DRIVER bleed, meningitis, sinusitis. Discharge Plan Discharge Chief Complaint: Headache Clinical Impression: Migraine Patient Disposition: Home, Self-Care Time of Disposition Decision: 20:40 Condition: Good Mode of Transportation: Private Vehicle Prescriptions / Home Meds: New metoclopramide HCl [Reglan] 10 mg tablet 10 mg PO BID PRN (Reason: nausea and vomiting) Qty: 20 0RF Print Language: Indonesian Instructions: Migraine Headache (ED) Additional Instructions: Tylenol 1000 mg 3 times a day for headache as needed. Return for worsening symptoms. Referrals: Physician,Non-Staff, [Primary Care Provider] - 1 week
--- NOTE | 2024-12-05 20:52 | PC.NURSE ---
i gave this patient verbal and written discharge orders along with 1 e-script and this patient voices ys to understanding these. at time of discharge this patient voices no concerns and shows no signs of distress
== END 2024-12-05 20:53 | disposition home or self-care (01) ==
PROVIDERS: Emergency Provider Emergency Medicine
DX: O26.893 Other specified pregnancy related conditions, third trimester (principal); G43.909 Migraine, unspecified, not intractable, without status migrainosus; Z3A.34 34 weeks gestation of pregnancy
CPT/HCPCS: 96361; 96374; 96375; 96376; 99284; J1200; J2765; J3010

== ENCOUNTER 2024-12-12 11:10 | Inpatient (IN) | payer OTHER, SELFPAY ==
[2024-12-12] VITALS (34 sets, daily range): BP systolic 97–137; BP diastolic 51–102; PULSE 64–118; TEMP 36.4; O2SAT 95–100
--- NOTE | 2024-12-12 | US_ITS ---
The [address] [address] Patient Name: LUCILA JAMES MRN: [id number] date: 1990 Sex: F Assigned Patient Location: [facility] Current Patient Location: [facility] Accession/Order Number: [id number] Exam Date: 12/12/2024 11:43 Report Date: 12/12/2024 11:45 At the request of: BRYAN BALDERRAMA DO Procedure: US OB BPP w non-stress Biophysical profile. Reason for exam: IUD in place with current . COMPARISON: BPP 12/02/2024 TECHNIQUE: Transabdominal imaging of the gravid uterus was obtained. FINDINGS: The knotting machine operator reports a BPP of 6 out of 8 with 0 out of 2 for gross body movements. ISAIAH 10.2 cm heart rate 159bpm. US/US OB BPP w non-stress IMPRESSION: The knotting machine operator reports a BPP of 6 out of 8 with 0 out of 2 for gross body movements. Correlation with NST is suggested. Impression dictated by: Haile Palaico Jr., D.O.12/12/2024 11:45 AM Dictation Location: [facility] Electronically authenticated by: [id number] Y Date: 12/12/2024 11:45
--- OUTSIDE RECORDS SUMMARY | 2024-12-12 10:18 | XMS_ITS | CCD ---
Author Organization [facility] Care Team Providers Care Technology Teacher Name Role Phone Yesica Khan Primary Care [...] Provider MD Santa Estrada II Attending Provider [phone] NON STAFF Primary Care Provider Unavailabl e [...] Haley Provider Primary Care Provi sharla Tai ENTRY LEVEL MANAGER, Victor M Worley Unavailable NON STAFF Primary [...] PCP, NOT IN SYSTEM Primary Care Unavailable [address] [place] [address], [facility] Referring Unavailable PCP, NOT IN SYSTEM Primary Care Unavailable ATTILA, CATRACHITO R Referring Unavailable PCP, NOT IN SYSTEM Primary Care Unavailable Pcp, Not In System Primary Care Provider Unavail able Peter Booth Attending Unavailable Provider, None Primary Care Unavailable Bucklin, Audra M Admitting Unavailable Bucklin, Audra M Attending Unavailable Provider, None Primary Care Unavailable Provider, None Primary Care Unavailable Maurizio Mast Admitting Unavailable Maurizio Mast Attending Unavailable Juliano Peterson Consulting Unavailable Bucklin, Audra M Admitting Unavailable Bucklin, Audra M Attending Unavailable Provider, None Primary Care Unavailable Bucklin, Audra M Attending Unavailable Provider, None Primary Care Unavailable Bucklin, Audra M Admitting Unavailable KINDLALEC F Admitting [...] Magnesium (1 source) Magnesium Drug Allergy 4 [facility] NSAIDs (1 source) Ibuprofen Drug Allergy 4 [facility] Potassium (1 source) Potassium Drug Allergy [address] [facility] (2 sources) Magnesium-Conta ining Compounds Propensity to adverse reactions to drug 9 [place], [place] (20 sources) Ibuprofen; Translations: [ibuprofen] Drug Allergy 9 [place], [place] (1 source) Potassium-Conta ining Compounds Propensity to adverse reactions to drug 0 [place], [place] (1 source) ALLERGIES NOT ON FILE; Translations: [ALLERGIES NOT ON FILE] Propensity to adverse reactions (disorder) [facility] Repository (20 sources) Magnesium; Translations: [magnesium] Drug Allergy 2 [facility] (20 sources) Potassium; Translations: [potassium] Drug Allergy [address] [facility] (9 sources) Contrast media Allergy to substance 4 [facility] (6 sources) NSAIDS (Non-Steroidal Anti-Inflamma Allergy to substance [address] [facility] (1 source) Ibuprofen Drug Allergy 4 [facility] Repository (20 sources) Non-steroidal anti-inflammato ry agent Drug Allergy 3 [facility] Healthcare Work Phone: (20 sources) Amoxicillin-Pot Clavulanate Drug Intolerance 1 [facility] Healthcare (20 sources) Amoxicillin; Translations: [AMOXICILLIN] Drug Allergy 4 [facility] Rep[facility] (12 sources) NSAIDs; Translations: [NSAIDS (NON-STEROIDAL ANTI-INFLAMMATO RY DRUG)] Propensity to adverse reactions to drug (disorder) 2 Hives [facility] Rep[facility] (20 sources) Potassium Chloride; Translations: [POTASSIUM CHLORIDE] Drug Allergy 2 Hiv [facility] Repository (16 sources) Iodinated Contrast Media; Translations: [IODINATED CONTRAST MEDIA] Drug Intolerance 4 Hives, Itching, Rash [facility] Healthcare Medications Current Medications Medication Drug [...] mouth Daily 08/12/2024 Discontinued (Therapy completed) levonorgestrel 0.340013 mg/hr intrauterine system (2 sources) Progestin, Progestin-containing [...] VITAMINS DAILY ORAL) Take by mouth. 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 Ordering Physician: Catrachito Aiken D.O. Date of Service: 12/02/24 Procedure(s): US OB BPP w non-stress Accession Number(s): [id number] cc: Catrachito Aiken D.O.; Physician,Non-Staff M.DWalker The [place] [id number] Patient Name: LUCILA JACQUES MRN: TBH:[id number] date: 1990 Sex: F Assigned Patient Location: [facility] Current Patient Location: Accession/Order Number: [id number] Exam Date: 12/02/2024 13:46 Report Date: 12/02/2024 13:48 At the request of: CATRACHITO AIKEN DO Procedure: US OB BPP w non-stress BIOPHYSICAL PROFILE: CLINICAL INFORMATION: with IUD in place COMPARISON: 11/28/2024 A single live intrauterine gestation is present in cephalic presentation. The reported gestational age is 34 weeks 1 day. The heart rate oxwsxuop789 beats per minute. FINDINGS: TONE: 1 or [...] Vikki Rivers M.D.12/02/2024 1:48 PM Dictation Location: [place] [address] Electronically authenticated by: [id number] Y Date: 12/02/2024 13:48 Dictated By: Vikki Rivers M.D. Signed By: 12/02/24 1351 DD/ 1348 TD/TT: Deputy Commissioner: [facility] Radiology, Radiologi MD kevin - 12/02/2024 [place] [address] Ultrasound Report Signed Patient: LUCILA JACQUES MR#: [id number] : 1990 Acct:[id number] Age/Sex: 34 / F ADM Date: 12/02/24 Loc: US Attending Dr: Catrachito Aikne D.O. Ordering Physician: Catrachito Aiken D.O. Date of Service: 12/02/24 Procedure(s): US OB BPP w non-stress Accession Number(s): [id number] cc: Catrachito Aiken D.O.; Physician,Non-Staff Farhat The [address] [address] Patient Name: LUCILA JACQUES MRN: [facility]:[id number] date: 1990 Sex: F Assigned Patient Location: [facility] Current Patient Location: Accession/Order Number: [id number] Exam Date: 12/02/2024 13:46 Report Date: 12/02/2024 13:48 At the request of: CATRACHITO AIKEN DO Procedure: US OB BPP w non-stress BIOPHYSICAL PROFILE: CLINICAL INFORMATION: with IUD in place COMPARISON: 11/28/2024 A single live intrauterine gestation is present in cephalic presentation. The reported gestational age is 34 weeks 1 day. The heart rate arafdmib523 beats per minute. FINDINGS: TONE: 1 or [...] Vikki Rivers M.D.12/02/2024 1:48 PM Dictation Location: [place] [address] Electronically authenticated by: [id number] Y Date: 12/02/2024 13:48 Dictated By: Vikki Rivers M.D. Signed By: 12/02/24 1351 DD/ 1348 TD/TT: Deputy Commissioner: [facility] Radiology Study observation (narrative) [facility] US OB BPP W NON-STRESS Ordered By: Radiologist Radiology on 12-02-2024 [facility] Work Phone: AMNISUREon 11-25-2024 [facility] AMNISURE Negative NEGATIVE [facility] US OB BPP W NON-STRESS on 11-25-[address] [address] Ultrasound Report Signed Patient: LUCILA JACQUES MR#: [id number] : 1990 Acct:[id number] Age/Sex: 34 / F ADM Date: 11/25/24 Loc: US Attending Dr: Catrachito Aiken D.O. Ordering Physician: Catrachito Aiken D.O. Date of Service: 11/25/24 Procedure(s): US OB BPP w non-stress Accession Number(s): [id number] cc: Catrachito Aiken D.O.; Physician,Non-Staff Farhat [facility] [place] [id number] Patient Name: LUCILA JACQUES MRN: [facility]:[id number] date: 1990 Sex: F Assigned Patient Location: [facility] Current Patient Location: [facility] Accession/Order Number: [id number] Exam Date: 11/25/2024 16:14 Report Date: 11/25/2024 16:15 At the request of: CATRACHITO AIKEN DO Procedure: US OB BPP w non-stress Biophysical profile. Reason for exam: IUD in place with current . COMPARISON: BPP 11/21/2024. TECHNIQUE: Transabdominal imaging of the gravid uterus was obtained. FINDINGS: The market research intern reports a BPP of 8 out of 8. ISAIAH 6.7 cm heart rate 140 bpm. US/US OB BPP w non-stress IMPRESSION: BPP 8 out of 8. Impression dictated by: Haile Palacio Jr., D.O.11/25/2024 4:15 PM Dictation Location: [place] [address] Electronically authenticated by: [id number] Y Date: 11/25/2024 16:15 Dictated By: Haile Palacio M.D. Signed By: 11/25/24 1618 DD/ 14 TD/TT: Deputy Commissioner: [facility] RadiologyIsidraogrodriguez brown MD - 11/25/2024 [place] [address] Ultrasound Report Signed Patient: LUCILA JACQUES MR#: [id number] : 1990 Acct:[id number] Age/Sex: 34 / F ADM Date: 11/25/24 Loc: US Attending Dr: Catrachito Aiken D.O. Ordering Physician: Catrachito Aiken D.O. Date of Service: 11/25/24 Procedure(s): US OB BPP w non-stress Accession Number(s): [id number] cc: Catrachito Aiken D.O.; Physician,Non-Staff Farhat [place] [address] Patient Name: LUCILA JACQUES MRN: [facility]:[id number] date: 1990 Sex: F Assigned Patient Location: [facility] Current Patient Location: [facility] Accession/Order Number: [id number] Exam Date: 11/25/2024 16:14 Report Date: 11/25/2024 16:15 At the request of: CATRACHITO AIKEN DO Procedure: US OB BPP w non-stress Biophysical profile. Reason for exam: IUD in place with current . COMPARISON: BPP 11/21/2024. TECHNIQUE: Transabdominal imaging of the gravid uterus was obtained. FINDINGS: The market research intern reports a BPP of 8 out of 8. ISAIAH 6.7 cm heart rate 140 bpm. US/US OB BPP w non-stress IMPRESSION: BPP 8 out of 8. Impression dictated by: Haile Palacio Jr., D.O.11/25/2024 4:15 PM Dictation Location: [place] [address] Electronically authenticated by: [id number] Y Date: 11/25/2024 16:15 Dictated By: Haile Palacio M.D. Signed By: 11/25/248 DD/ 14 TD/TT: Deputy Commissioner: [facility] Radiology Study observation (narrative) [facility] US OB BPP W NON-STRESS Ordered By: Radiologist Radiology on 11-25-2024 [facility] Work Phone: AMNISUREon 11-21-2024 [facility] AMNISURE Negative NEGATIVE [facility] No Panel InformationOrdered By: Radiologist Radiology on 11-21-2024 [facility] Work Phone: No Panel Informationon 11-21 Radiology Study observation (narrative) [facility] US OB BPP W NON-STRESS on 11-21-2024 [place] [address] Ultrasound Report Signed Patient: LUCILA JACQUES MR#: [id number] : 1990 Acct:[id number] Age/Sex: 34 / F ADM Date: Loc: [facility] 250-[address]: Catrachito Aiken D.O. Ordering Physician: Catrachito Aiken D.O. Date of Service: 11/21/24 Procedure(s): US OB BPP w non-stress Accession Number(s): [id number] cc: Catrachito Aiken D.O.; Physician,Non-Staff MChristie The [place] [address] Patient Name: LUCILA JACQUES MRN: TBH:[id number] date: 1990 Sex: F Assigned Patient Location: [facility] Current Patient Location: Accession/Order Number: [id number] Exam Date: 11/21/2024 18:27 Report Date: 11/21/2024 [...] Ruddy Esquivel M.D.11/21/2024 6:32 PM Dictation Location: [place] [address] Electronically authenticated by: [id number] Y Date: 11/21/2024 18:32 Dictated By: Ruddy Esquivel M.D. Signed By: 11/21/241834 DD/ 31 TD/TT: Deputy Commissioner: [facility] Radiology, Radiologi MD kevin - 11/21/2024 [place] [address] Ultrasound Report Signed Patient: LUCILA JACQUES MR#: [id number] : 1990 Acct:[id number] Age/Sex: 34 / F ADM Date: Loc: [facility] [address]: Catrachito Aiken D.O. Ordering Physician: Catrachito Aiken D.O. Date of Service: 11/21/24 Procedure(s): US OB BPP w non-stress Accession Number(s): [id number] cc: Catrachito Aiken D.O.; Physician,Non-Staff Farhat [facility] [place] [id number] Patient Name: LUCILA JACQUES MRN: [facility]:[id number] date: 1990 Sex: F Assigned Patient Location: [facility] Current Patient Location: Accession/Order Number: [id number] Exam Date: 11/21/2024 18:27 Report Date: 11/21/2024 [...] Ruddy Esquivel M.D.11/21/2024 6:32 PM Dictation Location: [place] [address] Electronically authenticated by: [id number] Y Date: 11/21/2024 18:32 Dictated By: Ruddy Esquivel M.D. Signed By: 11/21/241834 DD/ 31 TD/TT: Deputy Commissioner: [facility] GROWTHon 11-21-2024 [place] [address] Ultrasound Report Signed Patient: LUCILA JACQUES MR#: [id number] : 1990 Acct:[id number] Age/Sex: 34 / F ADM Date: Loc: [facility] [address]: Catrachito Aiken D.O. Ordering Physician: Catrachito Aiken D.O. Date of Service: 11/21/24 Procedure(s): US OB growth Accession Number(s): [id number] cc: Catrachito Aiken D.O.; Physician,Non-Staff Farhat [facility] [place] [id number] Patient Name: LUCILA JACQUES MRN: TBH:[id number] date: 1990 Sex: F Assigned Patient Location: [facility] Current Patient Location: Accession/Order Number: [id number] Exam Date: 11/21/2024 18:27 Report Date: 11/21/2024 [...] Ruddy Esquivel M.D.11/21/2024 6:32 PM Dictation Location: [place] [address] Electronically authenticated by: [id number] Y Date: 11/21/2024 18:32 Dictated By: Ruddy Esquivel M.D. Signed By: 11/21/241834 DD/ 31 TD/TT: Deputy Commissioner: [facility] Radiology, Radiologi MD kevin - 11/21/2024 [place] [address] Ultrasound Report Signed Patient: LUCILA JACQUES MR#: [id number] : 1990 Acct:[id number] Age/Sex: 34 / F ADM Date: Loc: [facility] 250-[address]: Catrachito Aiken D.O. Ordering Physician: Catrachito Aiken D.O. Date of Service: 11/21/24 Procedure(s): US OB growth Accession Number(s): [id number] cc: Catrachito Aiken D.O.; Physician,Non-Staff Farhat [facility] [place] [address] Patient Name: LUCILA JACQUES MRN: [facility]H:[id number] date: 1990 Sex: F Assigned Patient Location: [facility] Current Patient Location: Accession/Order Number: [id number] Exam Date: 11/21/2024 18:27 Report Date: 11/21/2024 [...] Ruddy Esquivel M.D.11/21/2024 6:32 PM Dictation Location: [place] [address] Electronically authenticated by: [id number] Y Date: 11/21/2024 18:32 Dictated By: Ruddy Esquivel M.D. Signed By: 11/21/241834 DD/ 31 TD/TT: Deputy Commissioner: [facility] Urinalysis macro (dipstick) panel (U)on 11-21-2024 Bilirubin, UA Positive Negative - 4(70) +++ mg/dL [facility] Comment on above: small Blood, UA Negative Negative - 50 Asif/mcL [facility] Clarity, UA Clear [facility] Color, UA Bibiana [facility] Glucose, UA Negative Negative - 1999(110) ++++ mg/dL [facility] Interpretation and review of laboratory results Abnormal [facility] Ketones, UA Positive Negative - 160(16) ++++ mg/dL [facility] Comment on above: trace Leukocytes, UA Negative Negative - 500+++ Shivani/mcL [facility] Nitrite, UA Negative Negative - Positive [facility] pH, UA 5.5 5 - 9 [facility] Protein, UA Positive Negative - 1999(20) ++++ mg/dL [facility] Comment on above: 30 Spec Grav, UA 1.03 1 - 1.03 [facility] Urobilinogen, UA 1.0 0.2 - 12 mg/dL [facility] Coding Summaryon 11-11-2024 Coding Summary HTMLBase 64 EnftiqmdYAt1qVs+PGhlYWQ+PE1 NCWHpS84mnXXujV4sC9MKYCmYFf mgFBOKQJfQZdDkdsIbJC9vuQFmN XJu IC8+CB6wJKYsUwexzBLoo1O3iYT 2Z68qfv1aWDtcrTY7JHMyZpFeul vcb3uugKk2FQhxDcvoVpCi FALnhX96ZRF9gV15Mx53cDRsvPK me7cckSn1AgXdTSCgGPY6sUsgHZ zam4IoJWCzM08pcODjp8Q5 JCLijUlkfKGoQfQjzQN0lV0bGRr jejpps3hovsifGyd5fa23sEQcv3 U7dFF4I8QsbjZ2TSXlkISe BzqdpOJLaJ0nqkfcz7uyuiaqRxD hHSBiBRq4RGs1JTRugPezRxUbQP 71NVS4UMYkndAuS8UoRKYp aMehOhO1e5R9Cj3TA3FSGbadF0V NTUFSWTwvdGQ+YP27ky08D5LbPh prDjv8FSDqUCT8zZH2wF2o GMAkFJiip4Z3jME0B0PxgdJtod0 px0duHPRwBPwtN03dnYPvd4H6YD WunEC7JRBgrGtxZgKpfC57 Oyc+MBEmvJgpd9QyGlmur7osv3u dsAq2KgbsESAjmfFpdDvfZDZ1x6 XeXk3eBWBcrOZ3fFQ8sJ7m VrOkHjT7MXbpX300CcUxsFUcXgw zH55aX3JzkLX+ZOAbRuj9EEBolK dfFE0oB5IxRUSbmhgtoRKj eBizTM4pGUSzyzgoCDYqvG5nUVD aO2b6MgFlLkB6OErbX9ZpHYMppf xaFp11gS3iOaJnVjV1NPbk F3OnegJ7SXGdkLJpDFmzWAD1I22 ej7N5DHIuBVFySDA7nEJ9dE9obS lnbjogbGVmdDsgdmVydGlj BBqoPExlI450AYBhmGggQiTrVDc uZyBEYXRlOiAgMDIvMTcvMjAyNT wvdGQ+ABXtGMC0wIrrFMEf sAZxHOhfOy9jwFhbjYufCF1rLEK vzfdtBERbcA8kSVBmhZBorJwaTU 1sZTHqhhirb105OaOrUDN5 UYXmrVKkC7BmdY3sIwRkYGVgMDK hG2DshXRuIZptF825JViuMgB5ZP JaxtLiE3HzLZVcoSqaKtW5 f7I3Sw2Yk0JwhuruJ4ChgPBvJeO gMkbgKDl3L5CsNrjtdOX+PC90YW QiQH58OSc0SNK0cYkcMRrb IIOuH1GaoD4vFlUcACAnJFEiUay +PHRhYmxlIHdpZHRoPScxMDAlJy KshRzwKX2dRv8bROIuCYMa vTuhtZHyYkDqn8amRVZqYUbcOK9 gmIdiC2MmzZV9EAHyz4l4Xh08G0 6jI2FuxWM+CDXolYN9iNC9 yK8yBoBrDrP7YLhvB509HpPkxUQ hGyzwc5acc6cxiCa1WvX2NICsve WtnKgoRZS6h6YnEf05U72v IHdpZHRoPSIxNSUiIHZhbGlnbj0 hnQ6uRx6+ELNreIS2lAO4dG2xMw JgEqT9EItdA950MyZhuRWf Alzzr3vqf0ojcBn9DlDsEBDywiP rrRldGRN5a3ZeTt22U3IagIbzr9 IuKuw0qo99mSItg5I1kSG2 I4CkWMRkikvotEGpqDdwNW8cMEW hrjxqGKXklT7oWERjX5u7UlYdZc N1RBbwP4UrifH2FCYrzWDz RBGsaIYViB9xjmbly4otckylNhN jFNFqTEd3OOe1CFLjoGgaYaNfFS R5UdK4JHF2wFXazV9urLwt tazxhT0xGgg+DLR7qFXjjGZMAU9 lOjwvdGQ+WCLfUJQ1pOccVYmvYX KmkG7wNJPdO2z7OoAkOpU9 EKatZ5XownV8ERZumGYoYOKebNB IfI9athjyz1sbqktfQnBuTSRqIU d5VLi4OZJatLtbMxSeHSF2 YwQ0XOU2mRBsuY8nmWkkhawzeK5 wOyc+ZzicwKyiCVG7SOz7S9CqWm w0YPEsmFfnDP6gyMZyPAkc Xu3ofAynsEdzOB8dVKLsoxhzs30 7QpHbn2hgRQKxtAXtYNueUCA9V6 5xs7N1CGCeEMMfZHM5dGK9 iE7jtIpslfsfhSSgsRinzsLoxOl dGCfsOKlpX745NXBwtHceApNaBM j9D9YwObb3BWNllIavHK6g mTZdXIsnVb4xdLntaEjbLX8oIZI hswoak600ZoZfx9ouKXGofSNnAH ilZCT4G85uk5D4PARjTDXd DBN5oOR4sH3jtLhvehhnrUMptPg lzlTmkLqoYPzhFJmjH332WFKdhL jbAcZfwHt8R0XvNwt4GDPx gGkqHS5ykYTwMQugYj5hqWtuaAs tZL3uNWZlxfogn264HeBbp6atOP MzcZEsDDfwURT2V37ko9O3 HCPqNXWwKEL5dQH8zG8dyPwfptt gbGVmdDsgdmVydGljYWwtYWxpZ2 46IHRvcDsnPlBhdGllbnQg SHbfCMh5Z7XbSqrtpWB+LA40SHC tJG11qZOdgVZph0bwsEd4NkCgIY LpSGQ5lXunGQivh9UkXPCp Z00nqBWfm5Y8DFJxyOtmjMTrEbF lrJQ1nX3qYWborkvym4zcdbrsIb wsg0efmk24pU51D39hNTxr THKrDGTwWXNlXMIinIhlnb6fxB6 wIi8+UDYfrSX8uCF6wK8kKRJoTz A7ONugA636SdOajFOiBqiy k5fse6kwhGp6FiH5SQEjxnFxhZt hIUX8u7IkJz52M26vNEvsZYDkAY EwHTQiBLOhnYorzw5dnD8l Ii8+QLQbmWK5oLT4qU7nTmQdQjO 4TElwH445BhOjzYOcCfwxL82wN1 JvdXA+RFRoDtn8IOXapKgb UK4dmJVqWVhfIh2oMFW4PnQuOtD pYBnwO8DgDJSvcuenilxgtRA6FS MfGIWprS87Mh9bwZjbEPBn iFEWrJ8ijtppo2fgabcjEeAsZPK bOZy4LBy8TVVvdLbfWvLoWFE7Vv E2CIR1iUDmcR5yvPaueiav vN2nG4BzCIWnelzzXh60oL3gEdU sXcJ2XVvcQtx+ZjJZQkjxV6JLCX lUUkZWFVM6A9CpStm1UHDk dMxkSQ6qgXBjZYnpKe4hdWzeeAp zGB1tICIvxseyJHKniA5eLTWhmW TgtSnvJO7cADIrsxqbq788 WmFnPTI8TNXhpYMvT5WonW8uZyH hDJYpFQMbJ5RxhXIzOKxzC677XK noQoR9JHImbuVlF8NbTEJg lTxbJxB8t4D4Lf8fFK0jBm8mBQo 4DD68HS48nQWfb8N0nOA7Z6PjZJ DvrdsmlubshJR7LXEfTXPo wP60qRKwYGrdOa5km1C1x016JZG rZECyzE20Vf2zxJwvKHGguOMClT 2locxen0evcnaxCvCsZVZv ZPn8LNf1VPRbqEduQhBxTTW2RqY 3HOI7cXIcaH9ylYpkpijmxL2pJi c+JiBvRNOupmC8D3QpDwt5 ZKQdqIfqTS4xrZKeSOquJv4meFj axKvkSF7mKGIrrvjbYVYysK9xED FvmBQebPhiUE0tLKFubnxm q644HeGkMYA4NBAgtSThF8DioS2 fSyPeHCOxJGUtB0TcfSVtZPguP6 93GQvmSsE7EWLsgsCaF2Is ZTPwbDagNvZ9j2Q5Dy0MVF9TKMI 7W7WrGbf6CBUdoBpoFG1ceGZiXF cnBc8quBurlNltTW0uAXCz mersSOYzxK4lOFIyaGOtzVutNR2 pTPMuvngjh771OrMyRUK4YRNjhV MyO1IwvX5lEkPnAARoGQPt F7GamWKyDMmtA123FObsBoW0OJW kibIeE4IxYBMcmKfzQzQ8k2D8Os 5PUDwvdGQ+MQ33ft82L0Ms DkmpUrb4LFZkVSP4yYT4eT5dEHB lCKhoq6W9mHC5O4EidlZess8ao1 vdLCPzEHdzD89yiUAho4N7 OMSjfZP4WODwbVdbZtCljD84Drc +MZHwuYndi1UsAawzy0dim8yshC x2NgThHHEnftKatQwyBYI9 i4BoDf57I14cESdmTULlREIhTKY uKWIzhTscli3fiN8cKe5+PGNvbC G2hMZ3kD1xXvFvZnG4GKli R576ZfYzzQIzUmyfp0cci3apwTs 5VtPsDYZgnrXkcZzsADG3j7OaAl 66U6ZnmUkms0MpFvr6hd51 yGZnp4F9oUF2T9GbVZNtncrydGS knOudNY1mPUOleddsLPVfzZ0sUO VdW9y7XoJuBnD5ZHhnS7Kg cqF3IDNhcNLuOSSgkBTIbH8crxz xi6vancrsBdQhRJYrDOo5KDs6DD ZmzAehKkXkSOC0AiY3DEM9 fHOlwK4hrLyglaergL6bKou+UGh 2p0jqkRJbPO6syVP1UQ23UJ79kI Crx2Y4zQU7K3XiHEQscgku cushwUE8XDSmHNQiiX86Zl7xcPm mDo8uCZMwPJG6KEVmfUShQ0SfpI 4vAkTzGQQmFFTvJ4IslXHg XLgmX614HTjjXnL7ZVHdihBxO5V zUMQkoAgoEsY2c0E9Qf0KOY84DJ 72MW62mUYss4P2dNS8L3Of DIUcsborkubehKK9UXWgKUIelM4 8Pm5doAwqSd3dIOFpXEI7OUQygO YhY5BqwM3hZgDoMNPdQWFn S2IasVHxSHgqX395YFcvNbF6DER pufYjL3RdMWOlvDgaQzF4e1W0Un 7PMk73CW31HB50rZDvq9P6 hPK2N4RmBCQxrcxipzmpwZH6PZV vNNCxqF87Ql6zvKwfHg4nUXSjYN H4LJYggEUcK8IupF6bQaXf DOUjCKXfH9VewAAaIQxvV981ECg pMeI2CUKrjhGwI0AzCIAidJtgYl Q2v4Y1Od3VSQwewfy5N2Bg PjwvdHI+IO69AMWgUK86nCZcvMP yf2rvvAk8BcJaIUQxTDX4uPtwYE hhe4QtEQWtP81kfBBng4G0 IGN (more content not included)... Normal [facility] Urinalysis macro (dipstick) panel (U)on 11-07-2024 Bilirubin, UA Positive Negative - 4(70) +++ mg/dL [facility] Comment on above: small Blood, UA Negative Negative - 50 Asif/mcL [facility] Clarity, UA Clear [facility] Color, UA Yellow [facility] Glucose, UA Negative Negative - 1999(110) ++++ mg/dL [facility] Interpretation and review of laboratory results Abnormal [facility] Ketones, UA Positive Negative - 160(16) ++++ mg/dL [facility] Comment on above: 40mg/dL Leukocytes, UA Negative Negative - 500+++ Shivani/mcL [facility] Nitrite, UA Negative Negative - Positive [facility] pH, UA 6 5 - 9 [facility] Protein, UA Positive Negative - 1999(20) ++++ mg/dL [facility] Comment on above: 30mg/dL Spec Grav, UA 1.025 1 - 1.03 [facility] Urobilinogen, UA 1.0 0.2 - 12 mg/dL [facility] ALL CBC WITH AUTO DIFFon BASOPHILS ABSOLUTE AUTO 0 [facility] Basophils/100 WBC (Bld) 0.3 % 0.2 - 2.0 % [facility] Eosinophils/100 WBC (Bld) 1.6 % 0.9 - 7.0 % [facility] Erythrocyte distribution width (RBC) [Ratio] 12.8 % 11.0 - 15.0 % [facility] Hematocrit (Bld) [Volume fraction] 33.8 % Low 36.0 - 48.0 % [facility] Hemoglobin (Bld) [Mass/Vol] 11.4 g/dL Low 12.0 - 16.0 g/dL [facility] IMMATURE GRANULOCYTES ABS AUTO 0.05 High [facility] Immature granulocytes/100 WBC (Bld) 0.5 % 0.0 - 0.5 % [facility] Interpretation and review of laboratory results Abnormal [facility] LYMPHOCYTES ABSOLUTE AUTO 1.9 [facility] Lymphocytes/100 WBC (Bld) 18.6 % Low 20.5 - 60.0 % [facility] MCH (RBC) [Entitic mass] 29.8 pg 26.7 - 34.0 pg [facility] MCHC (RBC) [Mass/Vol] 33.7 g/dL 29.9 - 35.2 g/dL [facility] MCV (RBC) [Entitic vol] 88.5 fL 81.0 - 99.0 fL [facility] MONOCYTES ABSOLUTE AUTO 0.9 High [facility] Monocytes/100 WBC (Bld) 8.6 % 1.7 - 12.0 % [facility] NEUTROPHILS ABSOLUTE AUTO 7.3 High [facility] Neutrophils/100 WBC (Bld) 70.4 % 43.0 - 75.0 % [facility] Platelet mean volume (Bld) [Entitic vol] 8.9 fL Low 9.5 - 13.5 fL [facility] TBH EO # 0.2 [facility] TB PLT 228 [facility] TB RBC 3.82 Low [facility] TB WBC 10.4 [facility] Urinalysis macro (dipstick) panel (U)on 10-01-2024 Bilirubin, UA Negative Negative - 4(70) +++ mg/dL [facility] Blood, UA Negative Negative - 50 Asif/mcL [facility] Clarity, UA Clear [facility] [facility] Color, UA Yellow [facility] Glucose, UA Negative Negative - 1999(110) ++++ mg/dL [facility] Interpretation and review of laboratory results Abnormal [facility] Ketones, UA Positive Negative - 160(16) ++++ mg/dL [facility] Leukocytes, UA Negative Negative - 500+++ Shivani/mcL [facility] Nitrite, UA Negative Negative - Positive [facility] pH, UA 6.5 5 - 9 [facility] Protein, UA Negative Negative - 1999(20) ++++ mg/dL [facility] Spec Grav, UA 1.025 1 - 1.03 [facility] Urobilinogen, UA 1.0 0.2 - 12 mg/dL [facility] AFP, SERUM, OPEN SPINA BIFID Aon 08-14-2024 AFP MOM 1.32 . [facility] AFP VALUE 43.5 ng/mL . [facility] COMMENT: Comment . [facility] Comment on above: Irena Jones , Ph.D., [facility] Director References: Available Upon Request. Multiples Of Median Cutoffs For AFP Elevations Vela 2.5 Black 2.8 IDD 2.0 Twins 4.5 Abbreviation Definitions IDD - Insulin Dep Diabetes OSBR - Open Spina Bifida Risk For further inquiries contact [facility] [facility] at [phone]. This test was developed and its performance characteristics determined by [facility]. It has not been cleared or approved by the Food and Drug Administration. Performed at: [facility] [address] [place], [place] [id number] Video Editor: Hellen Hinson Formerly [facility], Phone: [phone] GEST. AGE ON COLLECTION DATE 18.1 . weeks [facility] GESTAT. AGE BASED ON Ultrasound . [facility] Comment on above: 18.1 on 08/12/2024 Recalculations are not recommended when gestational dating by LMP and ultrasound are within 10 days. INSULIN DEP DIABETES No . [facility] INTERPRETATION Comment . [facility] Comment on above: Interpretation: Scre en Negative [...] Customer Services to discuss available options. The [employer] recommends amniocentesis be offered to women age 35 and older. [age] [facility] MULTIPLE GESTATION No . [facility] OSBR RISK 1 [place] 4529 . [facility] RACE . [facility] RESULTS Report . [facility] TEST RESULTS: Negative . [facility] WEIGHT 239 . lbs [facility] N N ULTRASOUND [id number] 1 18 N 1 Y 239 N N N N N White/ [facility] Urinalysis macro (dipstick) panel (U)on 08-12-2024 Bilirubin, UA Negative Negative - 4(70) +++ mg/dL [facility] Blood, UA Negative Negative - 50 Asif/mcL [facility] Clarity, UA Clear [facility] Color, UA Yellow [facility] Glucose, UA Negative Negative - 2000(110) ++++ mg/dL [facility] Interpretation and review of laboratory results Abnormal [facility] Ketones, UA Positive Negative - 160(16) ++++ mg/dL [facility] Comment on above: trace Leukocytes, UA Negative Negative - 500+++ Shivani/mcL [facility] Nitrite, UA Negative Negative - Positive [facility] pH, UA 6 5 - 9 [facility] Protein, UA Negative Negative - 2000(20) ++++ mg/dL [facility] Spec Grav, UA 1.015 1 - 1.03 [facility] Urobilinogen, UA 0.2 0.2 - 12 mg/dL [facility] Urinalysis macro (dipstick) panel (U)on 07-16-2024 Bilirubin, UA Negative Negative - 4(70) +++ mg/dL [facility] Blood, UA Negative Negative - 50 Asif/mcL [facility] Clarity, UA Clear [facility] Color, UA Yellow [facility] Glucose, UA Negative Negative - 2000(110) ++++ mg/dL [facility] Interpretation and review of laboratory results Normal [facility] Ketones, UA Negative Negative - 160(16) ++++ mg/dL [facility] Leukocytes, UA Negative Negative - 500+++ Shivani/mcL [facility] Nitrite, UA Negative Negative - Positive [facility] pH, UA 5.5 5 - 9 [facility] Protein, UA Negative Negative - 2000(20) ++++ mg/dL [facility] Spec Grav, UA 1.03 1 - 1.03 [facility] Urobilinogen, UA 0.2 0.2 - 12 mg/dL [facility] BLOOD UREA NITROGENon 2023 Urea nitrogen [Mass/Vol] 9 mg/dL Normal 5-23 [facility] Comment on above: Performed By: #### Joao CAARBALLO, 3094-0, LAPIDARIST, LIVR, 5193-8 #### [facility] ([id number]) [address], [address] [place] [address] CBC AND AUTO DIFFon 07-10-20 ABSOLUTE BASOPHIL 0.0 X10E9/L Normal 0.0-0.2 [facility] Comment on above: Performed By: #### Joao CARABALLO, 3094-0, LAPIDARIST, LIVR, 5193-8 #### [facility] ([id number]) [address], [address] [place] [address] ABSOLUTE NEUTROPHIL 5.1 X10E9/L Normal 1.5-6.6 [place] Comment on above: Performed By: #### Joao CARABALLO, 3094-0, LAPIDARIST, LIVR, 5193-8 #### [facility] ([id number]) [address], [address] [place] [address] Basophils/100 WBC (Bld) 0.6 % Normal [facility] Comment on above: Performed By: #### Joao BCA, 3094-0, LAPIDARIST, LIVR, 5193-8 #### [facility] ([id number]) [address], [address] [place] [address] Eosinophils (Bld) [#/Vol] 0.1 10*3/uL Normal 0.0-0.4 [facility] Comment on above: Performed By: #### C BCA, 3094-0, LAPIDARIST, LIVR, 5193-8 #### [facility] ([id number]) [address] [place] [address] Eosinophils/100 WBC (Bld) 1.6 % Normal [facility] Comment on above: Performed By: #### C BCA, 3094-0, LAPIDARIST, LIVR, 519-8 #### [facility] ([id number]) [address] [place] [address] Erythrocyte distribution width (RBC) [Ratio] 13.1 % Normal 11.5-15.0 [facility] Comment on above: Performed By: #### C BCA, 3094-0, LAPIDARIST, LIVR, 519-8 #### [facility] ([id number]) [address] [address] [place] [address] Hematocrit (Bld) [Volume fraction] 39.1 % Normal 35-47 [facility] Comment on above: Performed By: #### C BCA, 3094-0, LAPIDARIST, LIVR, 519-8 #### [facility] ([id number]) [address] [place] [address] Hemoglobin (Bld) [Mass/Vol] 13.4 g/dL Normal 11.7-15.5 [facility] Comment on above: Performed By: #### C BCA, 3094-0, LAPIDARIST, LIVR, 5193-8 #### [facility] ([id number]) [address] [address] [place] [address] Lymphocytes (Bld) [#/Vol] 1.3 10*3/uL Normal 1.0-3.5 [facility] Comment on above: Performed By: #### C BCA, 3094-0, LAPIDARIST, LIVR, 5193-8 #### [facility] ([id number]) [address], [address] [place] [address] Lymphocytes/100 WBC (Bld) 19.0 % Normal [facility] Comment on above: Performed By: #### C BCA, 3094-0, LAPIDARIST, LIVR, 8 #### [facility] ([id number]) [address], [address] [place] [address] MCH (RBC) [Entitic mass] 30.6 pg Normal 27-34 [facility] Comment on above: Performed By: #### C BCA, 3094-0, LAPIDARIST, LIVR, 8 #### [facility] ([id number]) [address], [address] [place] [address] MCHC (RBC) [Mass/Vol] 34.3 g/dL Normal 32-36 [facility] Comment on above: Performed By: #### Joao BCA, 3094-0, LAPIDARIST, LIVR, 8 #### [facility] ([id number]) [address], [address] [place] [address] MCV (RBC) [Entitic vol] 89 fL Normal 80-100 [facility] Comment on above: Performed By: #### Joao BCA, 3094-0, LAPIDARIST, LIVR, 8 #### [facility] ([id number]) [address], [address] [place] [address] Monocytes (Bld) [#/Vol] 0.5 10*3/uL Normal 0-0.9 [facility] Comment on above: Performed By: #### Joao BCA, 3094-0, LAPIDARIST, LIVR, 519-8 #### [facility] ([id number]) [address], [address] [place] [address] Monocytes/100 WBC (Bld) 6.7 % Normal [facility] Comment on above: Performed By: #### Joao BCA, 3094-0, LAPIDARIST, LIVR, 5192-8 #### [facility] ([id number]) [address], [address] [place] [address] Neutrophils/100 WBC (Bld) 72.1 % Normal [facility] Comment on above: Performed By: #### C BCA, 3094-0, LAPIDARIST, LIVR, 5193-8 #### [facility] ([id number]) [address], [address] [place] [address] Platelet mean volume (Bld) [Entitic vol] 7.9 fL Normal 7-12 [facility] Comment on above: Performed By: #### C BCA, 3094-0, LAPIDARIST, LIVR, 5193-8 #### [facility] ([id number]) [address], [address] [place] [address] Platelets (Bld) [#/Vol] 232 10*3/uL Normal 150-450 [facility] Comment on above: Performed By: #### C BCA, 3094-0, LAPIDARIST, LIVR, 5193-8 #### [facility] ([id number]) [address], [address] [place] [address] RBC COUNT 4.37 X10E12/L Normal 3.80-5.20 [facility] Comment on above: Performed By: #### C BCA, 3094-0, LAPIDARIST, LIVR, 5193-8 #### [facility] ([id number]) [address], [address] [place] [address] WBC (Bld) [#/Vol] 7.0 10*3/uL Normal 4.0-11.0 [facility] Comment on above: Performed By: #### C BCA, 3094-0, LAPIDARIST, LIVR, 5193-8 #### [facility] ([id number]) [address], [address] [place] [address] CREATININEon 07-10-2024 Creatinine [Mass/Vol] 0.54 mg/dL Normal 0.40-1.00 [facility] Comment on above: Result Comment: METH OD TRACEABLE TO IDMS STANDARD Performed By: #### C BCA, 3094-0, LAPIDARIST, LIVR, 5193-8 #### [facility] ([id number]) [address], [address] [address] eGFR (CKD-EPI) NON-RACE DEPENDENT >90 Normal >59 [facility] Comment on above: Result Comment: Reported eGFR is based on the CKD-EPI 2020 equation that does not use a race coefficient. Performed By: #### C BCA, 3094-0, LAPIDARIST, LIVR, 5193-8 #### [facility] ([id number]) [address], [address] [address] HBV surface Ab IA Qnon 07-10 Anti HBs quant. <8.00 Normal [facility] Comment on above: Result Comment: Vacc inated: >=12mIU/mL, Positive (Immune) Unvaccinated: <8mIU/mL, Negative (Not Immune) 8-11.99 mIU/mL: Indeterminate, (Considered Not Immune) Performed By: #### C BCA, 3094-0, LAPIDARIST, LIVR, 5193-8 #### [facility] ([id number]) [address] [address] LIVER PANELon 07-10-2024 Albumin [Mass/Vol] 3.8 g/dL Normal 3.2-5.3 [facility] Comment on above: Performed By: #### C BCA, 3094-0, LAPIDARIST, LIVR, 5193-8 #### [facility] ([id number]) [address] [address] ALP [Catalytic activity/Vol] 44 U/L Normal 39-130 [facility] Comment on above: Performed By: #### C BCA, 3094-0, LAPIDARIST, LIVR, 5193-8 #### [facility] ([id number]) [address], [address] [place] [address] ALT [Catalytic activity/Vol] 11 U/L Normal 0-31 [facility] Comment on above: Performed By: #### C BCA, 3094-0, LAPIDARIST, LIVR, 5193-8 #### [facility] ([id number]) [address], [address] [place] [address] AST [Catalytic activity/Vol] 16 U/L Normal 0-41 [facility] Comment on above: Performed By: #### C BCA, 3094-0, LAPIDARIST, LIVR, 5193-8 #### [facility] ([id number]) [address], [facility] [address] [place] [address] Bilirubin [Mass/Vol] 0.5 mg/dL Normal 0.3-1.2 [place] Comment on above: Performed By: #### C BCA, 3094-0, LAPIDARIST, LIVR, 5193-8 #### [facility] ([id number]) [address], [address] [place] [address] Bilirubin.direct [Mass/Vol] 0.1 mg/dL Normal 0.0-0.4 [facility] Comment on above: Performed By: #### C BCA, 3094-0, LAPIDARIST, LIVR, 5193-8 #### [facility] ([id number]) [address], [facility] [address] [place] [address] Protein [Mass/Vol] 6.5 g/dL Normal 6.0-8.0 [facility] Comment on above: Performed By: #### C BCA, 3094-0, LAPIDARIST, LIVR, 5193-8 #### [facility] ([id number]) [address], [facility] [address] [place] [address] Unlisted Lab TestOrdered By: Jaci Atwood on 06-26-2024 [facility] TOTAL PROTEIN 24 HOUR UR INEon 06-21-2024 Protein (U) [Mass/Vol] 11.3 mg/dL NINF - 11.9 mg/dL [facility] TOTAL PROTE[facility] 24 [facility] 101.7 [facility] TOTAL VOLUME 24 HOUR URINE 900 mL/24hr [facility] Urinalysis macro (dipstick) panel (U)on 06-19-2024 Bilirubin, UA Negative Negative - 4(70) +++ mg/dL [facility] Blood, UA Negative Negative - 50 Asif/mcL [facility] Clarity, UA Clear [facility] Color, UA Yellow [facility] Glucose, UA Negative Negative - 1999(110) ++++ mg/dL [facility] Interpretation and review of laboratory results Normal [facility] Ketones, UA Negative Negative - 160(16) ++++ mg/dL [facility] Leukocytes, UA Negative Negative - 500+++ Shivani/mcL [facility] Nitrite, UA Negative Negative - Positive [facility] pH, UA 5.5 5 - 9 [facility] Protein, UA Negative Negative - 1999(20) ++++ mg/dL [facility] Spec Grav, UA 1.020 1 - 1.03 [facility] Urobilinogen, UA 1.0 0.2 - 12 mg/dL [facility] ALL CBC WITH AUTO DIFFon BASOPHILS ABSOLUTE AUTO 0.0 [facility] Basophils/100 WBC (Bld) 0.4 % 0.2 - 2.0 % [facility] Eosinophils/100 WBC (Bld) 1.3 % 0.9 - 7.0 % [facility] Erythrocyte distribution width (RBC) [Ratio] 12.5 % 11.0 - 15.0 % [facility] Hematocrit (Bld) [Volume fraction] 36.9 % 36.0 - 48.0 % [facility] Hemoglobin (Bld) [Mass/Vol] 12.4 g/dL 12.0 - 16.0 g/dL [facility] IMMATURE GRANULOCYTES ABS AUTO 0.02 [facility] Immature granulocytes/100 WBC (Bld) 0.3 % 0.0 - 0.5 % [facility] Interpretation and review of laboratory results Abnormal [facility] LYMPHOCYTES ABSOLUTE AUTO 1.2 [facility] Lymphocytes/100 WBC (Bld) 17.0 % Low 20.5 - 60.0 % [facility] MCH (RBC) [Entitic mass] 29.9 pg 26.7 - 34.0 pg [facility] MCHC (RBC) [Mass/Vol] 33.6 g/dL 29.9 - 35.2 g/dL [facility] MCV (RBC) [Entitic vol] 88.9 fL 81.0 - 99.0 fL [facility] MONOCYTES ABSOLUTE AUTO 0.4 [facility] Monocytes/100 WBC (Bld) 6.0 % 1.7 - 12.0 % [facility] NEUTROPHILS ABSOLUTE AUTO 5.3 [facility] Neutrophils/100 WBC (Bld) 75.0 % 43.0 - 75.0 % [facility] Platelet mean volume (Bld) [Entitic vol] 10.0 fL 9.5 - 13.5 fL [facility] EO # 0.1 [facility] PLT 173 [facility] RBC 4.15 Low [facility] WBC 7.1 [facility] XR knee LT 3V - NOT FOR ER U Yuridia 06-11-2024 XR knee LT 3V - NOT FOR ER USE [facility] [address] [place] [address] XRay Report Signed Patient: Lucila Jacques MR#: [id number] [birth year] : 1990 Acct:[id number] Age/Sex: 33 / F ADM Date: 06/11/24 Loc: [facility] Room: Type: [facility] Attending Dr: Santa Estrada II, MD Copies [...] Vikki Rivers M.D.06/11/2024 2:26 PM Dictation Location: [place] [address] Transcribed By: [facility] 06/11/24 142 Dictated By: Vikki Rivers MD 06/11/241421 Signed By: 06/11/24 142 Normal [facility] HCG ( test) Ql [...] on 04-29-2024 Amphetamines Ql (U) Negative Negative [facility] Barbiturates [Presence] in U rine by Screen methodOrdered By: Yusef Curran on 04-29-2024 Barbiturates Screen Ql (U) Negative Negative [facility] Benzodiazepines Screen Ql (U )Ordered By: Yusef Curran on 04-29-2024 Benzodiazepines Ql (U) Negative Negative [facility] Benzoylecgonine [Presence] i n Urine by Screen methodOrdered By: Yusef Curran on 04-29-2024 Benzoylecgonine Screen Ql (U) Negative Negative [facility] Cannabinoids [Presence] in U rine by Screen methodOrdered By: Yusef Curran on 04-29-2024 Cannabinoids Screen Ql (U) Negative Negative [facility] Comment on above: These are unconfirme d results and should not be used for legal purposes. Drug Cut-Off Concentration: AMPH 1000 ng/mL SILVIA 200 ng/mL DARLYN 200 ng/mL COCM 300 ng/mL OP 300 ng/mL PCP 25 ng/mL THC 20 ng/mL Drug Screen,Urineon 04-29-20 24 Amphetamine Screen,Urine Negative Normal Negative [facility] Comment on above: Performed By: #### A 1C WTH eA, ALB, [id number], HGB #### [place] [address] [place] #### NICOTINE #### [facility] , Barbiturate Screen,Urine Negative Normal Negative [facility] Comment on above: Performed By: #### A 1C WTH eA, ALB, [id number], HGB #### [place] [address] [place] #### NICOTINE #### [facility] , Benzodiazepines Screen,Urine Negative Normal Negative [facility] Comment on above: Performed By: #### A 1C WTH eA, ALB, [id number], HGB #### [place] [address] [place] #### NICOTINE #### [facility] , Cannabinoid Screen,Urine Negative Normal Negative [facility] Comment on above: Result Comment: Thes e are unconfirmed results and should not be used for legal purposes. Drug Cut-Off Concentration: AMPH 1000 ng/mL SILVIA 200 ng/mL DARLYN 200 ng/mL COCM 300 ng/mL OP 300 ng/mL PCP 25 ng/mL THC 20 ng/mL PERFORMED BY: [place] [address] PATHOLOGIST EDUCATION PROGRAM SPECIALIST GENO BENEDICT M.D. Performed By: #### A 1C WTH eA, ALB, [id number], HGB #### [address] #### NICOTINE #### [facility] , Cocaine Screen,Urine Negative Normal Negative [facility] Comment on above: Performed By: #### A 1C WTH eA, ALB, [id number], HGB #### [place] [address] [place] #### NICOTINE #### [facility] , Opiate Screen,Urine Negative Normal Negative [facility] Comment on above: Performed By: #### A 1C WTH eA, ALB, [id number], HGB #### [address] #### NICOTINE #### [facility] , Phencyclidine Screen,Urine Negative Normal Negative [facility] Comment on above: Performed By: #### A 1C WTH eA, ALB, [id number], HGB #### [address] #### NICOTINE #### [facility] , HCG ( test) IA.rapi d Ql (U)Ordered By: Yusef Curran on 04-29-2024 HCG ( test) Ql (U) Negative [facility] HCG,Urineon 04-29-2024 Beta HCG ( test) Ql (U) Negative Normal [facility] Comment on above: Result Comment: PERF ORMED BY: [place] [address] PATHOLOGIST EDUCATION PROGRAM SPECIALIST GENO BENEDICT M.D. Performed By: #### U HCG #### [address] [place] 04-29-2024 L Specimen: [id number] Received: 04/29/24 Status: SOUT Req Num: [id number] Spec Type: Surgical Subm Dr: Santa Estrada MD Tissues: A Joint/Knee (LT KNEE) Procedures: HE, Gross/Micro L4, Decalcification Age/ Patient Sex Location Account Attending Physician Lucila Jacques R 33/F [place] [id number] Santa Estrada MD SPEC NUM: [id number] RECD: 04/29/24 STATUS: MICHAEL YOUNG NUM: [id number] NIELS: 04/29/24- SUBM DR: Santa Estrada MD [...] examination, no sections are submitted. CPT Codes 52875 Specimen: [id number] Received: 04/29/24 Status: ANUPAMABrunilda Young Num: [id number] Spec Type: Surgical Subm Dr: Santa Estrada MD Tissues: A Joint/Knee (LT KNEE) Procedures: HE, Gross/Micro L4, Decalcification Patient: Lucila Jacques [id number] (Continued) Specimen: [id number] Received: 04/29/24 (Continued) Signed (signature on file) ChinNessa Trevizo MD 05/07/24 1703 Specimen: [id number] Received: 04/29/24 Status: MICHAEL Young Num: [id number] Spec Type: Surgical Subm Dr: Santa Estrada MD Tissues: A Joint/Knee (LT KNEE) Procedures: VIKASH Gross/Nithya L4, Decalcification Patient: Lucila Jacques [id number] (Continued) Specimen: [id number] Received: 04/29/24 (Continued) BONE AND TISSUE Specimen: [id number] Received: 04/29/24 Status: MICHAEL Young Num: [id number] Spec Type: Surgical Subm Dr: Santa Estrada MD Tissues: A Joint/Knee (LT KNEE) Procedures: VIKASH Gross/Nithya L4, Decalcification Patient: Lucila Jacques [id number] (Continued) Signed (signature on file) Jamia Trevizo MD 05/07/24 1703 Normal [facility] Opiates [Presence] in Urine by Screen methodOrdered By: Yusef Curran on 04-29-2024 Opiates Screen Ql (U) Negative Negative [facility] Phencyclidine Screen Ql (U)O rdered By: Yusef Curran on 04-29-2024 Phencyclidine Ql (U) Negative Negative [facility] XR knee LT 2Von 04-29-2024 XR knee LT 2V [facility] [place] [address] XRay Report Signed Patient: Lucila Jacques MR#: [id number] [birth year] : 1990 Acct:[id number] Age/Sex: 33 / F ADM Date: 04/29/24 Loc: [place] Room: Type: [facility] Attending Dr: Santa Estrada II, [...] Harmeet Lopez M.D.04/29/2024 2:44 PM Dictation Location: [place] [address] Transcribed By: [facility] 04/29/24 1444 Dictated By: Harmeet Lopez DO 04/29/24 144 Signed By: 04/29/24 144 Normal [facility] XR tibia fibula LT 2V*on XR tibia fibula LT 2V* [facility] [address] [place] [address] XRay Report Signed Patient: Lucila Jacques MR#: [id number] [birth year] : 1990 Acct:[id number] Age/Sex: 33 / F ADM Date: 04/19/24 Loc: [facility] Room: Type: [facility] Attending Dr: Santa Estrada II, MD Copies to: Santa Estrada MD Ordering Provider: Santa Estrada MD Date of Service: 04/19/24 XR/XR tibia fibula LT 2V*: M17.12 - Unilateral primary osteoarthritis, left knee ([id number]) XR/XR femur LT 2V*: M17.12 - Unilateral [...] Harmeet Lopez M.D.04/19/2024 9:52 AM Dictation Location: [place] [address] Transcribed By: [facility] 04/19/24 0952 Dictated By: Harmeet Lopez DO 04/19/24 0950 Signed By: 04/19/24 0952 Normal [facility] Cytology Cervical or vaginal smear or scraping studyon 04-16-2024 [facility] Automated basophil %Ordered By: Santa Estrada on 04-15-2024 Basophils/100 WBC (Bld) 0.7 % . [facility] Comment on above: Performed By: #### B MP, CBC #### [place] [address] [place] #### NICOTINE, FRUC #### [facility] , Automated basophil countOrde red By: Santa Estrada on 04-15-2024 Basophils (Bld) [#/Vol] 0.0 10*3/uL 0.0-0.2 [facility] Comment on above: Result Comment: PERF ORMED BY: [place] [id number] PATHOLOGIST EDUCATION PROGRAM SPECIALIST GENO BENEDICT M.D. Performed By: #### B MP, CBC #### [place] [address] [place] #### NICOTINE, FRUC #### [facility] , Automated blood monocyte cou ntOrdered By: Santa Estrada on 04-15-2024 Monocytes (Bld) [#/Vol] 0.3 10*3/uL 0.0-0.8 [facility] Comment on above: Performed By: #### B MP, CBC #### [place] [address] [place] #### NICOTINE, FRUC #### [facility] , Automated eosinophil %Ordere d By: Santa Estrada on 04-15-2024 Eosinophils/100 WBC (Bld) 3.0 % . [facility] Comment on above: Performed By: #### B MP, CBC #### [place] [address] [place] #### NICOTINE, FRUC #### [facility] , Automated eosinophil countOr dered By: Santa Estrada on 04-15-2024 Eosinophils (Bld) [#/Vol] 0.1 10*3/uL 0.0-0.45 [facility] Comment on above: Performed By: #### B MP, CBC #### [facility] [address] [place] [address] [place] #### NICOTINE, FRUC #### [facility] , Automated monocyte %Ordered By: Santa Estrada on 04-15-2024 Monocytes/100 WBC (Bld) 7.6 % . [facility] Comment on above: Performed By: #### B MP, CBC #### [place] [address] [place] #### NICOTINE, FRUC #### [facility] , Automated neutrophil %Ordere d By: Santa Estrada on 04-15-2024 Neutrophils/100 WBC (Bld) 55.1 % . [facility] Comment on above: Performed By: #### B MP, CBC #### [place] [address] [place] #### NICOTINE, FRUC #### [facility] , Basic Metabolic Panelon 03-26 GFR/1.73 sq M.predicted MDRD (S/P/Bld) [Vol rate/Area] mL/min/{1.73_m2} Normal [facility] Comment on above: Performed By: #### A 1C WTH eA, ALB, [id number], HGB #### [place] [address] [place] #### NICOTINE #### [facility] , Bilirubin Test strip Ql (U)O rdered By: Santa Estrada on 04-15-2024 Bilirubin Ql (U) Negative Negative [facility] Calcium [Mass/volume] in Ser um or PlasmaOrdered By: Santa Estrada on 04-15-2024 Calcium [Mass/Vol] 9.0 mg/dL 8.6-10.3 [facility] Comment on above: Result Comment: PERF ORMED BY: [place] [id number] PATHOLOGIST EDUCATION PROGRAM SPECIALIST GENO BENEDICT M.D. Performed By: #### A 1C WTH eA, ALB, [id number], HGB #### [place] [address] [place] #### NICOTINE #### [facility] , Carbon dioxide, total [Moles /volume] in Serum or PlasmaOrdered By: Santa Estrada on 04-15-2024 CO2 [Moles/Vol] 26.3 mmol/L 21.0-31.0 [facility] Comment on above: Performed By: #### A 1C WTH eA, ALB, [id number], HGB #### [address] #### NICOTINE #### [facility] , Chloride [Moles/volume] in S liam or PlasmaOrdered By: Santa Estrada on 04-15-2024 Chloride [Moles/Vol] 106 mmol/L 98-107 [facility] Comment on above: Performed By: #### A 1C WTH eA, ALB, [id number], HGB #### [address] #### NICOTINE #### [facility] , Color of Urine by AutoOrdere d By: Santa Estrada on 04-15-2024 Color (U) Yellow Yellow [facility] Comment on above: Order Comment: Name Collection Type:: Clean-Voided Midstream Performed By: #### U A #### [address] Complete Blood Count Auto Di ffon 04-15-2024 Mean Corpuscular HGB Conc 34.0 g/dL Normal 32.0-35.0 [facility] Comment on above: Performed By: #### B MP, CBC #### [place] [address] [place] #### NICOTINE, FRUC #### [facility] , NRBC% 0.1 /100{WBC} Normal 0-0.5 [facility] Comment on above: Performed By: #### B MP, CBC #### [place] [address] [place] #### NICOTINE, FRUC #### [facility] , Cotinine [Mass/volume] in Se rum or PlasmaOrdered By: Santa Estrada on 04-15-2024 Cotinine [Mass/Vol] <1.0 ng/mL . [facility] Comment on above: This test was develo ped and its performance characteristicsdetermined by [facility]. It has not been cleared orapproved by the Food and Drug Administration.Cotinine levels greater than 20.0 are consistent with theuse of tobacco or tobacco cessation products.Performed at: [facility] [address] [id number] Director: Marcellsu Dave MD, Phone: [phone] Creatinine [Mass/volume] in Serum or PlasmaOrdered By: Santa Estrada on 04-15-2024 Creatinine [Mass/Vol] 0.65 mg/dL 0.60-1.20 [facility] Comment on above: Performed By: #### A 1C WTH eA, ALB, [id number], HGB #### [facility] [address] [place] [address] #### NICOTINE #### [facility] , Erythrocyte distribution wid th [Ratio] by Automated countOrdered By: Santa Estrada on 04-15-2024 Erythrocyte distribution width (RBC) [Ratio] 13.2 % 11.9-15.3 [facility] Comment on above: Performed By: #### B MP, CBC #### [facility] [address] [place] [address] #### NICOTINE, FRUC #### [facility] , Erythrocytes [#/volume] in B lood by Automated countOrdered By: Santa Estrada on 04-15-2024 RBC (Bld) [#/Vol] 4.52 10*6/uL 3.60-5.00 [facility] Comment on above: Performed By: #### B MP, CBC #### [facility] [address] [place] [address] [place] #### NICOTINE, FRUC #### [facility] , Fructosamineon 04-15-2024 Fructosamine 219 umol/L Normal 0-285 [facility] Comment on above: Result Comment: Publ ished reference interval for apparently healthy subjects between age 20 and 60 is 205 - 285 umol/L and in a poorly controlled diabetic population is 228 - 563 umol/L with a mean of 396 umol/L. Performed at: [facility] [address] [place], [place] [id number] Video Editor: Dario West PhD, Phone: [phone] Performed By: #### A 1C WTH eA, ALB, [id number], HGB #### [address] #### NICOTINE #### [facility] , Fructosamine [Moles/volume] in Serum or PlasmaOrdered By: Santa Estrada on 04-15-2024 Fructosamine [Moles/Vol] 219 umol/L 0-285 [facility] Comment on above: Published reference interval for apparently healthysubjects between age 20 and 60 is 205 - 285 umol/L and in apoorly controlled diabetic population is 228 - 563 umol/Lwith a mean of 396 umol/L.Performed at: [facility] [id number] Director: Dario West PhD, Phone: [phone] Glucose [Mass/volume] in Ser um or PlasmaOrdered By: Sanat Estrada on 04-15-2024 Glucose [Mass/Vol] 88 mg/dL 70-100 [facility] Comment on above: ADA recommended refe rence rangeRandom Glucose Reference Range is dependent on time and content of last meal. Glucose of more than 200 mg/dL in a nonstressed, ambulatory subject supports the diagnosis of Diabetes Mellitus. Result Comment: [place] Glucose Reference Range is dependent on time and content of last meal. Glucose of more than 200 mg/dL in a nonstressed, ambulatory subject supports the diagnosis of Diabetes Mellitus. ADA recommended reference range Performed By: #### A 1C WTH eA, ALB, [id number], HGB #### [place] [address] [place] #### NICOTINE #### [facility] , Hematocrit [Volume Fraction] of Blood by Automated countOrdered By: Santa Estrada on 04-15-2024 Hematocrit (Bld) [Volume fraction] 40.4 % 34.0-46.4 [facility] Comment on above: Performed By: #### B MP, CBC #### [facility] [address] [place] [address] [place] #### NICOTINE, FRUC #### [facility] , Hemoglobin [Mass/volume] in BloodOrdered By: Santa Estrada on 04-15-2024 Hemoglobin (Bld) [Mass/Vol] 13.7 g/dL 11.8-15.4 [facility] Comment on above: Performed By: #### B MP, CBC #### [place] [address] [place] #### NICOTINE, FRUC #### [facility] , Ketones Auto test strip (U) [Mass/Vol]Ordered By: Santa Estrada on 04-15-2024 Ketones (U) [Mass/Vol] Negative Negative [facility] Leukocytes [#/volume] correc perla for nucleated erythrocytes in Blood by Automated counOrdered By: Santa Estrada on 04-15-2024 WBC corrected for nucl RBC Auto (Bld) [#/Vol] 4.1 10*3/uL 3.8-11.6 [facility] Leukocytes [#/volume] in Blo od by Automated countOrdered By: Santa Estrada on 04-15-2024 WBC (Bld) [#/Vol] 4.1 10*3/uL 3.8-11.6 [facility] Comment on above: Performed By: #### B MP, CBC #### [facility] [address] [place] [address] [place] #### NICOTINE, FRUC #### [facility] , Lymphocytes [#/volume] in Bl ood by Automated countOrdered By: Santa Estrada on 04-15-2024 Lymphocytes (Bld) [#/Vol] 1.4 10*3/uL 1.00-4.8 [facility] Comment on above: Performed By: #### B MP, CBC #### [facility] [address] [place] [address] [place] #### NICOTINE, FRUC #### [facility] , Lymphocytes/100 leukocytes i n Blood by Automated countOrdered By: Santa Estrada on 04-15-2024 Lymphocytes/100 WBC (Bld) 33.6 % . [facility] Comment on above: Performed By: #### B MP, CBC #### [place] [address] [place] #### NICOTINE, FRUC #### [facility] , MCH [Entitic mass] by Automa perla countOrdered By: Santa Estrada on 04-15-2024 MCH (RBC) [Entitic mass] 30.4 pg 24.7-34.3 [facility] Comment on above: Performed By: #### B MP, CBC #### [address] #### NICOTINE, FRUC #### [facility] , MCHC Auto (RBC) [Mass/Vol]Or dered By: Santa Estrada on 04-15-2024 MCHC (RBC) [Mass/Vol] 34.0 g/dL 32.0-35.0 [facility] MCV [Entitic volume] by Auto mated countOrdered By: Santa Estrada on 04-15-2024 MCV (RBC) [Entitic vol] 89.4 fL 80-100 [facility] Comment on above: Performed By: #### B MP, CBC #### [place] [address] [place] #### NICOTINE, FRUC #### [facility] , Neutrophils [#/volume] in Bl ood by Automated countOrdered By: Santa Estrada on 04-15-2024 Neutrophils (Bld) [#/Vol] 2.2 10*3/uL 1.8-7.7 [facility] Comment on above: Performed By: #### B MP, CBC #### [place] [address] [place] #### NICOTINE, FRUC #### [facility] , Nicotine [Mass/volume] in Se rum or PlasmaOrdered By: Santa Estrada on 04-15-2024 Nicotine [Mass/Vol] <1.0 ng/mL . [facility] Comment on above: This test was develo ped and its performance characteristicsdetermined by [facility]. It has not been cleared orapproved by the Food and Drug Administration.Nicotine levels greater than 2.0 are consistent with theuse of tobacco or tobacco cessation products. Nicotine/Cotinine Bloodon Cotinine, Blood <1.0 Normal . [facility] Comment on above: Result Comment: This test was developed and its performance characteristics determined by [facility]. It has not been cleared or approved by the Food and Drug Administration. Cotinine levels greater than 20.0 are consistent with the use of tobacco or tobacco cessation products. Performed at: [address] [id number] Video Editor: Marcellus Dave MD, Phone: [phone] PERFORMED BY: [place] [address] PATHOLOGIST EDUCATION PROGRAM SPECIALIST GENO BENEDICT M.D. Performed By: #### A 1C WT eA, ALB, [id number], HGB #### [address] #### NICOTINE #### [facility] , Nicotine, Blood <1.0 Normal . [facility] Comment on above: Result Comment: This test was developed and its performance characteristics determined by [facility]. It has not been cleared or approved by the Food and Drug Administration. Nicotine levels greater than 2.0 are consistent with the use of tobacco or tobacco cessation products. Performed By: #### A 1C WTH eA, ALB, [id number], HGB #### [place] [address] [place] #### NICOTINE #### [facility] , Nitrite Test strip Ql (U)Ord ered By: Santa Estrada on 04-15-2024 Nitrite Ql (U) Negative Negative [facility] No Panel InformationOrdered By: Santa Estrada on 04-15-2024 Estimated GFR (CKD-EPI) > 60.0 mL/Min [facility] Creatinine Clearance (Chem N/A [facility] Nucleated erythrocytes [Pres ence] in Blood by Automated countOrdered By: Santa Esrtada on 04-15-2024 Nucleated RBC Auto Ql (Bld) 0.1 /100{WBC} 0-0.5 [facility] PST Type and Screenon 2023 ABO and Rh group Nom (Bld) Blood group O Rh(D) positive Normal [facility] Comment on above: Order Comment: Date of Surgery: [id number] Result Comment: PERF ORMED BY: [place] [id number] PATHOLOGIST EDUCATION PROGRAM SPECIALIST GENO BENEDICT M.D. Platelet mean volume [Entiti c volume] in Blood by Automated countOrdered By: Santa Estrada on 04-15-2024 Platelet mean volume (Bld) [Entitic vol] 7.3 fL 6.3-10.7 [facility] Comment on above: Performed By: #### B MP, CBC #### [facility] [address] [place] [address] #### NICOTINE, FRUC #### [facility] , Platelets [#/volume] in Bloo d by Automated countOrdered By: Santa Estrada on 04-15-2024 Platelets (Bld) [#/Vol] 230 10*3/uL 150-450 [facility] Comment on above: Performed By: #### B MP, CBC #### [facility] [address] [place] [address] [place] #### NICOTINE, FRUC #### [facility] , Potassium [Moles/volume] in Serum or PlasmaOrdered By: Santa Estrada on 04-15-2024 Potassium [Moles/Vol] 4.0 mmol/L 3.5-5.1 [facility] Comment on above: Performed By: #### A 1C WTH eA, ALB, [id number], HGB #### [place] [address] [place] #### NICOTINE #### [facility] , Protein Auto test strip (U) [Mass/Vol]Ordered By: Santa Estrada on 04-15-2024 Protein (U) [Mass/Vol] Negative Negative [facility] Serum or plasma anion gap de terminationOrdered By: Santa Estrada on 04-15-2024 Anion gap [Moles/Vol] 6.7 mmol/L 6.0-15.0 [facility] Comment on above: Performed By: #### A 1C WT eA, ALB, [id number], HGB #### [place] [address] [place] #### NICOTINE #### [facility] , Sodium [Moles/volume] in Ser um or PlasmaOrdered By: Santa Estrada on 04-15-2024 Sodium [Moles/Vol] 135 mmol/L Low 136-145 [facility] Comment on above: Performed By: #### A 1C WTH eA, ALB, [id number], HGB #### [address] #### NICOTINE #### [facility] , Specific gravity Auto test s trip (U) [Rel density]Ordered By: Santa Estrada on 04-15-2024 Specific gravity (U) [Rel density] 1.009 1.001-1.03 0 [facility] Urea nitrogen [Mass/volume] in Serum or PlasmaOrdered By: Santa Estrada on 04-15-2024 Urea nitrogen [Mass/Vol] 10 mg/dL 7-25 [facility] Comment on above: Performed By: #### A 1C WTH eA, ALB, [id number], HGB #### [place] [address] [place] #### NICOTINE #### [facility] , Urinalysison 04-15-2024 Appearance (U) Clear Normal Clear [facility] Comment on above: Order Comment: Name Collection Type:: Clean-Voided Midstream Performed By: #### U A #### [facility] [address] [place] [address] [place] Bilirubin,Urine Negative Normal Negative [facility] Comment on above: Order Comment: Name Collection Type:: Clean-Voided Midstream Performed By: #### U A #### [facility] [address] [place] [address] [place] Glucose Ql (U) Normal Normal Normal [facility] Comment on above: Order Comment: Name Collection Type:: Clean-Voided Midstream Performed By: #### U A #### [facility] [address] [place] [address] [place] Ketones Ql (U) Negative Normal Negative [facility] Comment on above: Order Comment: Name Collection Type:: Clean-Voided Midstream Performed By: #### U A #### [place] [address] [place] Leukocyte esterase Test strip Ql (U) Negative Normal Negative [facility] Comment on above: Order Comment: Name Collection Type:: Clean-Voided Midstream Performed By: #### U A #### [place] [address] [place] Nitrite,Urine Negative Normal Negative [facility] Comment on above: Order Comment: Name Collection Type:: Clean-Voided Midstream Performed By: #### U A #### [place] [address] [place] Occult Blood,Urine Negative Normal Negative [facility] Comment on above: Order Comment: Name Collection Type:: Clean-Voided Midstream Result Comment: PERF ORMED BY: [place] [id number] PATHOLOGIST EDUCATION PROGRAM SPECIALIST GENO BENEDICT M.D. Performed By: #### U A #### [place] [address] [place] Protein,Urine Negative Normal Negative [facility] Comment on above: Order Comment: Name Collection Type:: Clean-Voided Midstream Performed By: #### U A #### [facility] [address] Specificy [place],Urine 1.009 Normal 1.001-1.03 0 [facility] Comment on above: Order Comment: Name Collection Type:: Clean-Voided Midstream Performed By: #### U A #### [address] Urobilinogen,Urine Normal Normal Normal [facility] Comment on above: Order Comment: Name Collection Type:: Clean-Voided Midstream Performed By: #### U A #### [address] Urine clarity by refractomet ry automatedOrdered By: Santa Estrada on 04-15-2024 Clarity Refractometry automated (U) Clear Clear [facility] Urine glucose measurement by automated test strip (mass/volume)Ordered By: Santa Estrada on 04-15-2024 Glucose Auto test strip (U) [Mass/Vol] Normal mg/dL Normal [facility] Urine hemoglobin detection b y automated test stripOrdered By: Santa Estrada on 04-15-2024 Hemoglobin Auto test strip Ql (U) Negative Negative [facility] Urine leukocyte esterase det ection by automated test stripOrdered By: Santa Estrada on 04-15-2024 Leukocyte esterase Auto test strip Ql (U) Negative Negative [facility] Urine pH measurement by auto mated test stripOrdered By: Santa Estrada on 04-15-2024 pH (U) 8.0 [pH] 5.0-9.0 [facility] Comment on above: Order Comment: Name Collection Type:: Clean-Voided Midstream Performed By: #### U A #### [facility] [address] [place] [address] Urobilinogen Auto test strip (U) [Mass/Vol]Ordered By: Santa Estrada on 04-15-2024 Urobilinogen (U) [Mass/Vol] Normal mg/dL Normal [facility] CBC with Diffon 03-14-2024 Abs. Basophil 0.06 k/uL Normal 0.00-0.20 [facility] Comment on above: Performed By: #### C DP, VD25, FEBC, AHCV, GLYHGB, HIVCMB, TSHX, FERI, LIPRF, B12, CP #### [place] [address] Video Editor: Isreal Astorga MD Abs.Imm.Granulocyte <0.03 Normal 0.00-0.30 [facility] Comment on above: Performed By: #### C DP, VD25, FEBC, AHCV, GLYHGB, HIVCMB, TSHX, FERI, LIPRF, B12, CP #### [place] [address] Video Editor: Isreal Astorga MD Abs.Neutrophil (Seg) 2.66 k/uL Normal 1.50-8.10 [facility] Comment on above: Performed By: #### C DP, VD25, FEBC, AHCV, GLYHGB, HIVCMB, TSHX, FERI, LIPRF, B12, CP #### [place] [address] Video Editor: Isreal Astorga MD Basophils/100 WBC (Bld) 1 % Normal 0-2 [facility] Comment on above: Performed By: #### C DP, VD25, FEBC, AHCV, GLYHGB, HIVCMB, TSHX, FERI, LIPRF, B12, CP #### [place] [address] Video Editor: Isreal Astorga MD Eosinophils (Bld) [#/Vol] 0.28 10*3/uL Normal 0.00-0.44 [facility] Comment on above: Performed By: #### C DP, VD25, FEBC, AHCV, GLYHGB, HIVCMB, TSHX, FERI, LIPRF, B12, CP #### [place] [address] Video Editor: Isreal Astorga MD Eosinophils/100 WBC (Bld) 5 % High 1-4 [facility] Comment on above: Performed By: #### C DP, VD25, FEBC, AHCV, GLYHGB, HIVCMB, TSHX, FERI, LIPRF, B12, CP #### [address] [id number] Video Editor: Isreal Astorga MD Erythrocyte distribution width (RBC) [Ratio] 12.6 % Normal 11.8-14.4 [facility] Comment on above: Performed By: #### C DP, VD25, FEBC, AHCV, GLYHGB, HIVCMB, TSHX, FERI, LIPRF, B12, CP #### [place] [id number] Video Editor: Isreal Astorga MD Hematocrit (Bld) [Volume fraction] 38.8 % Normal 36.3-47.1 [facility] Comment on above: Performed By: #### C DP, VD25, FEBC, AHCV, GLYHGB, HIVCMB, TSHX, FERI, LIPRF, B12, CP #### [place] [address] Video Editor: Isreal Astorga MD Hemoglobin (Bld) [Mass/Vol] 12.9 g/dL Normal 11.9-15.1 [facility] Comment on above: Performed By: #### C DP, VD25, FEBC, AHCV, GLYHGB, HIVCMB, TSHX, FERI, LIPRF, B12, CP #### [place] [id number] Video Editor: Isreal Astorga MD Immature granulocytes/100 WBC (Bld) 0 % Normal 0 [facility] Comment on above: Performed By: #### C DP, VD25, FEBC, AHCV, GLYHGB, HIVCMB, TSHX, FERI, LIPRF, B12, CP #### [address] [id number] Video Editor: Isreal Astorga MD Lymphocytes (Bld) [#/Vol] 1.69 10*3/uL Normal 1.10-3.70 [facility] Comment on above: Performed By: #### C DP, VD25, FEBC, AHCV, GLYHGB, HIVCMB, TSHX, FERI, LIPRF, B12, CP #### [address] [id number] Video Editor: Isreal Astorga MD Lymphocytes/100 WBC (Bld) 33 % Normal 24-43 [facility] Comment on above: Performed By: #### C DP, VD25, FEBC, AHCV, GLYHGB, HIVCMB, TSHX, FERI, LIPRF, B12, CP #### [place] [id number] Video Editor: Isreal Astorga MD MCH (RBC) [Entitic mass] 29.9 pg Normal 25.2-33.5 [facility] Comment on above: Performed By: #### C DP, VD25, FEBC, AHCV, GLYHGB, HIVCMB, TSHX, FERI, LIPRF, B12, CP #### [facility] [employer] [address] [place] [id number] Video Editor: Isrela Astorga MD MCHC (RBC) [Mass/Vol] 33.2 g/dL Normal 28.4-34.8 [facility] Comment on above: Performed By: #### C DP, VD25, FEBC, AHCV, GLYHGB, HIVCMB, TSHX, FERI, LIPRF, B12, CP #### [facility] [employer] [address] [place] [id number] Video Editor: Isreal Astorga MD MCV (RBC) [Entitic vol] 89.8 fL Normal 82.6-102.9 [facility] Comment on above: Performed By: #### C DP, VD25, FEBC, AHCV, GLYHGB, HIVCMB, TSHX, FERI, LIPRF, B12, CP #### [address] [id number] Video Editor: Isreal Astorga MD Monocytes (Bld) [#/Vol] 0.47 10*3/uL Normal 0.10-1.20 [facility] Comment on above: Performed By: #### C DP, VD25, FEBC, AHCV, GLYHGB, HIVCMB, TSHX, FERI, LIPRF, B12, CP #### [address] [id number] Video Editor: Isreal Astorga MD Monocytes/100 WBC (Bld) 9 % Normal 3-12 [facility] Comment on above: Performed By: #### C DP, VD25, FEBC, AHCV, GLYHGB, HIVCMB, TSHX, FERI, LIPRF, B12, CP #### [address] [id number] Video Editor: Isreal Astorga MD Neutrophil (Seg) 52 % Normal 36-65 [facility] Comment on above: Performed By: #### C DP, VD25, FEBC, AHCV, GLYHGB, HIVCMB, TSHX, FERI, LIPRF, B12, CP #### [place] [address] Video Editor: Isreal Astorga MD NRBC Automated 0.0 per [address] [facility] Comment on above: Performed By: #### C DP, VD25, FEBC, AHCV, GLYHGB, HIVCMB, TSHX, FERI, LIPRF, B12, CP #### [address] [id number] Video Editor: Isreal Astorga MD Platelet mean volume (Bld) [Entitic vol] 9.7 fL Normal 8.1-13.5 [facility] Comment on above: Performed By: #### C DP, VD25, FEBC, AHCV, GLYHGB, HIVCMB, TSHX, FERI, LIPRF, B12, CP #### [address] [id number] Video Editor: Isreal Astorga MD Platelets (Bld) [#/Vol] 256 10*3/uL Normal 138-453 [facility] Comment on above: Performed By: #### C DP, VD25, FEBC, AHCV, GLYHGB, HIVCMB, TSHX, FERI, LIPRF, B12, CP #### [address] [id number] Video Editor: Isreal Astorga MD RBC (Bld) [#/Vol] 4.32 10*6/uL Normal 3.95-5.11 [facility] Comment on above: Performed By: #### C DP, VD25, FEBC, AHCV, GLYHGB, HIVCMB, TSHX, FERI, LIPRF, B12, CP #### [address] [id number] Video Editor: Isreal Astorga MD WBC (Bld) [#/Vol] 5.2 10*3/uL Normal 3.5-11.3 [facility] Comment on above: Performed By: #### C DP, VD25, FEBC, AHCV, GLYHGB, HIVCMB, TSHX, FERI, LIPRF, B12, CP #### [address] [id number] Video Editor: Isreal Astorga MD Comp Metabolic Profon 2023 Albumin [Mass/Vol] 4.2 g/dL Normal 3.5-5.2 [facility] Comment on above: Performed By: #### C DP, VD25, FEBC, AHCV, GLYHGB, HIVCMB, TSHX, FERI, LIPRF, B12, CP #### [address] [id number] Video Editor: Isreal Astorga MD Albumin/Glob Ratio 2.0 Normal 1.0-2.5 [facility] Comment on above: Performed By: #### C DP, VD25, FEBC, AHCV, GLYHGB, HIVCMB, TSHX, FERI, LIPRF, B12, CP #### [address] [id number] Video Editor: Isreal Astorga MD Alkaline Phos 72 U/L Normal 35-104 [facility] Comment on above: Performed By: #### C DP, VD25, FEBC, AHCV, GLYHGB, HIVCMB, TSHX, FERI, LIPRF, B12, CP #### [address] [id number] Video Editor: Isreal Astorga MD ALT [Catalytic activity/Vol] 21 U/L Normal 10-35 [facility] Comment on above: Performed By: #### C DP, VD25, FEBC, AHCV, GLYHGB, HIVCMB, TSHX, FERI, LIPRF, B12, CP #### [address] [id number] Video Editor: Isreal Astorga MD Anion gap [Moles/Vol] 8 mmol/L Low 9-16 [facility] Comment on above: Performed By: #### C DP, VD25, FEBC, AHCV, GLYHGB, HIVCMB, TSHX, FERI, LIPRF, B12, CP #### [address] [id number] Video Editor: Isreal Astorga MD AST [Catalytic activity/Vol] 23 U/L Normal 10-35 [facility] Comment on above: Performed By: #### C DP, VD25, FEBC, AHCV, GLYHGB, HIVCMB, TSHX, FERI, LIPRF, B12, CP #### [address] [id number] Video Editor: Isreal Astorga MD Bilirubin [Mass/Vol] 0.4 mg/dL Normal 0.00-1.20 [facility] Comment on above: Performed By: #### C DP, VD25, FEBC, AHCV, GLYHGB, HIVCMB, TSHX, FERI, LIPRF, B12, CP #### [address] [id number] Video Editor: Isreal Astorga MD Calcium [Mass/Vol] 8.8 mg/dL Normal 8.6-10.4 [facility] Comment on above: Performed By: #### C DP, VD25, FEBC, AHCV, GLYHGB, HIVCMB, TSHX, FERI, LIPRF, B12, CP #### [address] [id number] Video Editor: Isreal Astorga MD Chloride [Moles/Vol] 106 mmol/L Normal 98-107 [facility] Comment on above: Performed By: #### C DP, VD25, FEBC, AHCV, GLYHGB, HIVCMB, TSHX, FERI, LIPRF, B12, CP #### [address] [id number] Video Editor: Isreal Astorga MD CO2 [Moles/Vol] 25 mmol/L Normal 20-31 [facility] Comment on above: Performed By: #### C DP, VD25, FEBC, AHCV, GLYHGB, HIVCMB, TSHX, FERI, LIPRF, B12, CP #### [address] [id number] Video Editor: Isreal Astorga MD Creatinine [Mass/Vol] 0.7 mg/dL Normal 0.50-0.90 [facility] Comment on above: Performed By: #### C DP, VD25, FEBC, AHCV, GLYHGB, HIVCMB, TSHX, FERI, LIPRF, B12, CP #### [address] [id number] Video Editor: Isreal Astorga MD GFR/1.73 sq M.predicted among non-blacks MDRD (S/P/Bld) [Vol rate/Area] mL/min/{1.73_m2} Normal >60 [facility] Comment on above: Result Comment: These [...] HIVCMB, TSHX, FERI, LIPRF, B12, CP #### [place] [address] Video Editor: Isreal Astorga MD Glucose [Mass/Vol] 94 mg/dL Normal 74-99 [facility] Comment on above: Performed By: #### C DP, VD25, FEBC, AHCV, GLYHGB, HIVCMB, TSHX, FERI, LIPRF, B12, CP #### [place] [address] Video Editor: Isreal Astorga MD Potassium [Moles/Vol] 3.8 mmol/L Normal 3.7-5.3 [facility] Comment on above: Performed By: #### C DP, VD25, FEBC, AHCV, GLYHGB, HIVCMB, TSHX, FERI, LIPRF, B12, CP #### [address] [id number] Video Editor: Isreal Astorga MD Protein [Mass/Vol] 6.7 g/dL Normal 6.6-8.7 [facility] Comment on above: Performed By: #### C DP, VD25, FEBC, AHCV, GLYHGB, HIVCMB, TSHX, FERI, LIPRF, B12, CP #### [address] [id number] Video Editor: Isreal Astorga MD Sodium [Moles/Vol] 139 mmol/L Normal 136-145 [facility] Comment on above: Performed By: #### C DP, VD25, FEBC, AHCV, GLYHGB, HIVCMB, TSHX, FERI, LIPRF, B12, CP #### [address] [id number] Video Editor: Isreal Astorga MD Urea nitrogen [Mass/Vol] 12 mg/dL Normal 6-20 [facility] Comment on above: Performed By: #### C DP, VD25, FEBC, AHCV, GLYHGB, HIVCMB, TSHX, FERI, LIPRF, B12, CP #### [address] [id number] Video Editor: Isreal Astorga MD Ferritinon 0 Ferritin [Mass/Vol] 133 ng/mL Normal 13-150 [facility] Comment on above: Result Comment: FERRITIN Reference Ranges: Adult Males 20 - 60 years: 30 - 400 ng/mL Adult females 17 - 60 years: 13 - 150 ng/mL Adults greater than 60 years: no established reference range Pediatrics: no established reference range Performed By: #### C DP, VD25, FEBC, AHCV, GLYHGB, HIVCMB, TSHX, FERI, LIPRF, B12, CP #### [address] [id number] Video Editor: Isreal Astorga MD HIV Ag/Abon 03-14-2024 HIV Ag/Ab Non-Reactive Normal NR [facility] Comment on above: Result Comment: No l aboratory evidence of HIV infection. If acute HIV infection is suspected, consider testing for HIV-1 RNA. Performed By: #### C DP, VD25, FEBC, AHCV, GLYHGB, HIVCMB, TSHX, FERI, LIPRF, B12, CP #### [address] [id number] Video Editor: Isreal Astorga MD Hemoglobin A1Con 03-14-2024 Glucose [Mass/Vol] 94 mg/dL Normal [facility] Comment on above: Result Comment: The ADA and AACC recommend providing the estimated average glucose result to permit better patient understanding of their HBA1c result. Performed By: #### C DP, VD25, FEBC, AHCV, GLYHGB, HIVCMB, TSHX, FERI, LIPRF, B12, CP #### [address] [id number] Video Editor: Isrela Astorga MD HbA1c (Bld) [Mass fraction] 4.9 % Normal 4.0-6.0 [facility] Comment on above: Performed By: #### C DP, VD25, FEBC, AHCV, GLYHGB, HIVCMB, TSHX, FERI, LIPRF, B12, CP #### [address] [id number] Video Editor: Isreal Astorga MD Hep C Abon 03-14-2024 Hep C Ab Non-Reactive Normal NR [facility] Comment on above: Result Comment: The [...] TSHX, FERI, LIPRF, B12, CP #### [facility] [employer] [address] [place] [address] [phone] Video Editor: Isreal Astorga MD Iron Binding Cap.on 03-14-20 24 % Fe Saturation 44 % Normal 20-55 [facility] Comment on above: Performed By: #### C DP, VD25, FEBC, AHCV, GLYHGB, HIVCMB, TSHX, FERI, LIPRF, B12, CP #### [address] [id number] Video Editor: Isreal Astorga MD Iron [Mass/Vol] 107 ug/dL Normal 37-145 [facility] Comment on above: Performed By: #### C DP, VD25, FEBC, AHCV, GLYHGB, HIVCMB, TSHX, FERI, LIPRF, B12, CP #### [address] [address] Video Editor: Isreal Astorga MD Total Fe Binding Cap 243 ug/dL Low 250-450 [facility] Comment on above: Performed By: #### C DP, VD25, FEBC, AHCV, GLYHGB, HIVCMB, TSHX, FERI, LIPRF, B12, CP #### [facility] [employer] [address] [place] [id number] Video Editor: Isreal Astorga MD Unbound Fe Bind Cap 136 ug/dL Normal 112-347 [facility] Comment on above: Performed By: #### C DP, VD25, FEBC, AHCV, GLYHGB, HIVCMB, TSHX, FERI, LIPRF, B12, CP #### [facility] [employer] [address] [place] [phone] Video Editor: Isreal Astorga MD Lipid Prof, Fastingon 2023 Cholesterol [Mass/Vol] 174 mg/dL Normal 0-199 [facility] Comment on above: Result Comment: Cholesterol Guidelines: <200 Desirable 200-240 Borderline >240 Undesirable Performed By: #### C DP, VD25, FEBC, AHCV, GLYHGB, HIVCMB, TSHX, FERI, LIPRF, B12, CP #### [address] [id number] Video Editor: Isreal Astorga MD Cholesterol in HDL [Mass/Vol] 57 mg/dL Normal >40 [facility] Comment on above: Result Comment: HDL Guidelines: <40 Undesirable 40-59 Borderline >59 Desirable Performed By: #### C DP, VD25, FEBC, AHCV, GLYHGB, HIVCMB, TSHX, FERI, LIPRF, B12, CP #### [address] [id number] Video Editor: Isreal Astorga MD Cholesterol in LDL [Mass/Vol] 96 mg/dL Normal 0-100 [facility] Comment on above: Result Comment: LDL Guidelines: <100 Desirable 100-129 Near to/above Desirable 130-159 Borderline >159 Undesirable Direct (measured) LDL and calculated LDL are not interchangeable tests. Performed By: #### C DP, VD25, FEBC, AHCV, GLYHGB, HIVCMB, TSHX, FERI, LIPRF, B12, CP #### [address] [address] Video Editor: Isreal Astorga MD Cholesterol in VLDL [Mass/Vol] 22 mg/dL Normal [facility] Comment on above: Performed By: #### C DP, VD25, FEBC, AHCV, GLYHGB, HIVCMB, TSHX, FERI, LIPRF, B12, CP #### [address] [id number] Video Editor: Isreal Astorga MD Cholesterol.total/Chol esterol in HDL [Mass ratio] 3.0 {ratio} Normal [facility] Comment on above: Performed By: #### C DP, VD25, FEBC, AHCV, GLYHGB, HIVCMB, TSHX, FERI, LIPRF, B12, CP #### [address] [id number] Video Editor: Isreal Astorga MD Triglyceride,Fasting 108 mg/dL Normal 0-149 [facility] Comment on above: Result Comment: Triglyceride Guidelines: <150 Desirable 150-199 Borderline 200-499 High >499 Very high Based on AHA Guidelines for fasting triglyceride, June 2012. Performed By: #### C DP, VD25, FEBC, AHCV, GLYHGB, HIVCMB, TSHX, FERI, LIPRF, B12, CP #### [facility] [employer] [address] [place] [address] [phone] Video Editor: Isreal Astorga MD TSH w/reflex to FT4on 2023 Thyroid Stim. Horm. 2.37 uIU/mL Normal 0.27-4.20 [facility] Comment on above: Performed By: #### C DP, VD25, FEBC, AHCV, GLYHGB, HIVCMB, TSHX, FERI, LIPRF, B12, CP #### [facility] [employer] [address] [place] [address] [phone] Video Editor: Isreal Astorga MD Vitamin B12on 03-14-2024 Cobalamin (Vitamin B12) [Mass/Vol] 695 pg/mL Normal 232-1245 [facility] Comment on above: Performed By: #### C DP, VD25, FEBC, AHCV, GLYHGB, HIVCMB, TSHX, FERI, LIPRF, B12, CP #### [facility] [employer] [address] [place] [address] [id number] Video Editor: Isreal Astorga MD Vitamin D 25 OHon 03-14-2024 Vitamin D 25 OH 17.4 ng/mL Low 30.0-100.0 [facility] Comment on above: Result Comment: Reference Range: Vitamin D status Range Deficiency <20 ng/mL Mild Deficiency 20-30 ng/mL Sufficiency 30-100 ng/mL Toxicity >100 ng/mL Performed By: #### C DP, VD25, FEBC, AHCV, GLYHGB, HIVCMB, TSHX, FERI, LIPRF, B12, CP #### [employer] [address] [place] [address] Video Editor: Isreal Astorga MD Patient Handouton 03-13-2024 Patient Handout [facility] [address], [address], [place] Date: 03/13/2024 RE: Lucila Jacques To whom it may concern, Lucila has been under my professional care due to a surgical procedure performed on 02/27/2024. She may return to work with no restrictions on 03/20/2024. Thank you, Peter Booth M.D. Normal [facility] Release of Informationon Release of Information [id number] Normal [facility] A1C with Estimated Average G luon 03-12-2024 Glucose [Mass/Vol] 105 mg/dL Normal [facility] Comment on above: Result Comment: PERF ORMED BY: [place] [id number] PATHOLOGIST EDUCATION PROGRAM SPECIALIST GENO BENEDICT M.D. Performed By: #### A 1C WTH eA, ALB, [id number], HGB #### [address] #### NICOTINE #### [facility] , Albumin Levelon 03-12-2024 Albumin [Mass/Vol] 4.0 g/dL Normal 3.5-5.7 [facility] Comment on above: Performed By: #### A 1C WTH eA, ALB, [id number], HGB #### [place] [address] [place] #### NICOTINE #### [facility] , Albumin [Mass/volume] in Ser um or Plasma by Bromocresol green (BCG) dye binding methoOrdered By: Santa Estrada on 03-12-2024 Albumin BCG dye [Mass/Vol] 4.0 g/dL 3.5-5.7 [facility] Cotinine [Mass/volume] in Se rum or PlasmaOrdered By: Santa Estrada on 03-12-2024 Cotinine [Mass/Vol] 3.7 ng/mL . [facility] Comment on above: This test was develo ped and its performance characteristicsdetermined by [facility]. It has not been cleared orapproved by the Food and Drug Administration.Cotinine levels greater than 20.0 are consistent with theuse of tobacco or tobacco cessation products.Performed at: [facility] [address] [id number] Director: Marcellus Dave MD, Phone: [phone] Glucose mean value [Mass/vol ume] in Blood Estimated from glycated hemoglobinOrdered By: Santa Estrada on 03-12-2024 Average glucose Estimated from glycated hemoglobin (Bld) [Mass/Vol] 105 mg/dL [facility] Hemoglobin A1c percentageOrd ered By: Santa Estrada on 03-12-2024 HbA1c (Bld) [Mass fraction] 5.3 % Normal 4.3-5.6 [facility] Comment on above: Increased risk for d iabetes: 5.7 - 6.4diabetes: >6.4glycemic control for adults with diabetes: <7.0 Result Comment: Incr eased risk for diabetes: 5.7 - 6.4 diabetes: >6.4 glycemic control for adults with diabetes: <7.0 Performed By: #### A 1C WTH eA, ALB, [id number], HGB #### [place] [address] [place] #### NICOTINE #### [facility] , Hemoglobin [Mass/volume] in BloodOrdered By: Santa Estrada on 03-12-2024 Hemoglobin (Bld) [Mass/Vol] 12.8 g/dL Normal 11.8-15.4 [facility] Comment on above: Result Comment: PERF ORMED BY: [place] [id number] PATHOLOGIST EDUCATION PROGRAM SPECIALIST JIANLAN SUN M.D. Performed By: #### A 1C WTH eA, ALB, [id number], HGB #### [facility] [address] [place] [address] [place] #### NICOTINE #### [facility] , MRSA Cultureon 03-12-2024 MRSA Culture No MRSA Isolated 2 D ays [place]: [place] [id number] PATHOLOGIST EDUCATION PROGRAM SPECIALIST GENO BENEDICT M.D. Normal [facility] Comment on above: Performed By: #### C UMRSA #### [facility] [address] [place] [address] Nicotine [Mass/volume] in Se rum or PlasmaOrdered By: Santa Estrada on 03-12-2024 Nicotine [Mass/Vol] <1.0 ng/mL . [facility] Comment on above: This test was develo ped and its performance characteristicsdetermined by [facility]. It has not been cleared orapproved by the Food and Drug Administration.Nicotine levels greater than 2.0 are consistent with theuse of tobacco or tobacco cessation products. Nicotine/Cotinine Bloodon Cotinine, Blood 3.7 ng/mL Normal . [facility] Comment on above: Result Comment: This test was developed and its performance characteristics determined by [facility]. It has not been cleared or approved by the Food and Drug Administration. Cotinine levels greater than 20.0 are consistent with the use of tobacco or tobacco cessation products. Performed at: [address] [id number] Video Editor: Marcellus Dave MD, Phone: [phone] PERFORMED [place] [address] PATHOLOGIST EDUCATION PROGRAM SPECIALIST GENO BENEDICT M.D. Performed By: #### A 1C WTH eA, ALB, [id number], HGB #### [place] [address] [place] #### NICOTINE #### [facility] , Nicotine, Blood <1.0 Normal . [facility] Comment on above: Result Comment: This test was developed and its performance characteristics determined by [facility]. It has not been cleared or approved by the Food and Drug Administration. Nicotine levels greater than 2.0 are consistent with the use of tobacco or tobacco cessation products. Performed By: #### A 1C WTH eA, ALB, [id number], HGB #### [address] #### NICOTINE #### [facility] , Vitamin D 25 Hydroxy Totalon 03-12-2024 Vitamin D 25 Hydroxy Total 18.4 ng/mL Low 30-100 [facility] Comment on above: Result Comment: EVE MIN D STATUS 25(OH)VITAMIN D RANGE (ng/mL) Deficient <20 Insufficient 20 to <30 Sufficient 30 to 100 Reference: Juliano Vila, Tate VELAZQUEZ, et al. Evaluation,treatment, and prevention of vitamin D deficiency; an Endocrine Society clinical practice guideline. JCEM. 2010; 96(7):191-. PERFORMED BY: [place] [address] PATHOLOGIST EDUCATION PROGRAM SPECIALIST GENO BENEDICT M.D. Performed By: #### A 1C WTH eA, ALB, [id number], HGB #### [address] #### NICOTINE #### [facility] , Vitamin D+Metabolites [Mass/ volume] in Serum or PlasmaOrdered By: Santa Estrada on 03-12-2024 Vitamin D+Metabolites [Mass/Vol] 18.4 ng/mL Low 30-100 [facility] Comment on above: VITAMIN D STATUS [...] (Unsp spec) No MRSA Isolated 2 Days [facility] Coding Summaryon 03-07-2024 Coding Summary HTMLBase 64 HgtvussbJSv2rGg+PGhlYWQ+PE1 EDSRxV26eoATnqV0qM7TBGQoAVa inYRFVGLpFMsQgkaBzZD1asBClV XJu IC8+VS8eYWGpEzuztHAsg3K0kDU 8D59pkg3lHFlpuJB2XXXgLbKnmy rko3baqDn8VQxhIboeNbPc AQImqS16RPG7pL90Zp97oDXwhQZ lr4mivLd6AyUcAJKgDFS7mPpbJO dri7OaLJUkA45xfUYep5P7 STDobOxrsHJaEuCnvWA4qU2mHPo totaxm1oaqdqqJzg3vl59fNVcm6 I8iYB4M5RpsfZ3KSGkoRHv ZtwhvILPnT3opvzld8yropzkOjM xNJMzUCz9DKi9KMOppNlzTnDtUP 11GGX8OHKmkiLqX8XaWYFc dTiaNpU9k0S3Mt7DB1BUMcqaR9B NTUFSWTwvdGQ+QW39cs36A2ClBa nlMhx5DVNbJPQ4pMA4uW9h OHDuIPmqj5U0kTP0T3PzqmHucm4 dw7anFYDdJGbxP26xyITwv2Z9XM ZynFG7TBOmmVekEbXbmR49 Oyc+BRQleLfdw1WuUfbba4mil3a hbJu0QkvnRPAyjsKkeWmfHRT3w5 ZgKy1wQZDiqBI6oLJ2jN1b OvZhYsP8YZcqF292RnGwgPPqDfm nQ75yT1IzcMG+JPQvIlj0LARpnB qiFJ5nE9CmMNXxnzckfNFf oZgyQQ7wLYCurcczOAKmpR3oJNY oO3z5CiTkMxR5SVytY3WcQKHein bkBc99pM1vEhBlZrP6RVgd Q6EobvK3TANqxGWeGNciHRA8N05 su9N9GQIkXUDjDZO1fFH4lV3wlU lnbjogbGVmdDsgdmVydGlj ATrsVVoeU668XJKwzYzzQvOaBPg uZyBEYXRlOiAgMDYvMTMvMjAyND wvdGQ+OVLjAKX5zTbhIFOc zMKyDGiqLb5afFxhpPjgDA0hCOJ ryqqyYKAykS5xYCNyyFYxnDvwDL 6iKPOjyflnc602GvJtXKR0 PANvhQEiE6VbtD9tRoEcFGCfOAD pW1PdjHQkRGzaF653UFluLcP6AH LfnnJiA7RhEODljUzpAcE2 r8W4Pk5Db1NpdfslB8NulFFrBjD qCnlkSQo3G3FyRdqefGP+PC90YW AdLD97WXb1VHL8mKslTVqz SZVhU5OiqI1yBoXmDXWoZBCgGwj +PHRhYmxlIHdpZHRoPScxMDAlJy UxnMsnQZ4hEw9mWDVrXBNu xDkcwUNzSyXki9iyMFKmJOpdLK2 yjTewV0NmnMQ3TPFya2x4Vy10G7 5oK0RzvPL+MMPaiTJ4bNX4 wM5lNaPgUhX3CMgyP729RpXtdWE lSaooc6vct8oejTm4LmG9YPQqcr MshVcqHJP8r2XnBt03V81g IHdpZHRoPSIxNSUiIHZhbGlnbj0 yrC5vXq1+OGWihFH6uMN8cH5hLg YgVbS5NXoeF206ViXzfOEc Qtffa4qho1qznZx6MhLpDUIzuzA rlDppLYD9r8XvAq27P1HfvEqxr1 LsSkd9qp53aFKnq3X6kEV6 F0TcINYpahyxgYNqyHnsDB5wVSQ pqwepPNUszR6yVVWbR0n9MpNqOb L4ARoeF6GktmD8TAUzzTDo FMIeiNIPrT6plvjdp9wwcgneReH kBYLrRHd3AZj9HEVjeDqiBaTcYS F9ZoV4ALO0pELsmQ3tqJhq rtaouT2eDay+PSK0mVMtpZFUWW3 lOjwvdGQ+JMWhFIB3tJxcDTipDW SbaF7aDMXbK8p7PrOwLbH7 AIpiI4QqtrP1ACMpnZJwDGMpmZO RkI2xcfhad7smpsnzHdWwPQPxDH g1BZc4YKSfoZdaUaAfYTY7 GgM5JXD3mGBodM2wbIrqwwnfeX9 wOyc+MaxubJgfOHK8JUv8U8FqLp i4GXVqdEccRE9dzONcWZdm Bf3caIilrMajXP0zUMUqzhldb79 5NbZkf1akMYGmgYDnROpbZFP5S1 2so5T2OZBlJSFoDLI6wWV7 gL0xdWgojyhayRQscTewvdBevNr uMExtLQsoX620BPOdiGkkYzOeNR i3E0JnKpi3XGIzqSgxRP8u jQNkJDmbUs9hjJxzeJkvDG6gUBO pzyohv172OtTtn1jkCCVoxNNhXY pqDVP6Z93xs1H3CQJiVOIj EHN9vOE9jF1toHoohpinhPGdkUf otwDbrFkvNLpiTBkpN195RRQchO scThKqzVd3I1OdFgq0TIHa eMzxLZ2yhGLrFNigOd0wdWtvoZv xDI6aSNZulufoe736IdSqe7xpCC QncEBgHQjtWUQ8R77sl0N1 AHUpFMPhLVK0lKY4bU2enBuvfdz gbGVmdDsgdmVydGljYWwtYWxpZ2 46IHRvcDsnPlBhdGllbnQg DKhoAWx6J5HjYrldgNS+ZY78LML bMH04xPBycNXre1zpxTs4CpKeRC GbXHA6sOpaXUxtm6GdDSQc C36eiPKcr9K9UEOqsCbbzVFsJbH csUI7qL8sNKvuatfjz3sosjaxLf gfv3jysd77wP25D91sVXqh VDTkJRByUUTrJVNrgQbxay6ayQ3 wIi8+BWWciSD3cNZ5dD3oCJXxYs H3PCovD959WjDxnKTeHkqs f4oyi5zeoLh4LiU8SKZnjtJapPq zQXW7h2VaGw70Y42sCBgwSZOiPL NsXGQwBXYjdGtscf8xwL2g Ii8+GVUqfZR0bPS4nV4tGxWpXmO 6EAgqM602XpXfdPWfAutrG96bL4 JvdXA+YBAhSis9ISTcwCpl FS9eyGXtNYvnLe1jSPO1UhPqDvK wXEvsD2GgREZhtgwtkvlvlPD5AY GxXOIqfE03Zk5nsOrfOGVu bDATcR3shpirc8xwqopeSpLwLPY eAVi3FVk9ZUVsbYdpNcDqTDT2Sv P6CQQ7oVYavJ3lmKjlkfgc aS2wO0DrKOHttzsuLi99dM3aHiR xXuI1QQmhZiw+TvBDLhmwW3CAJG iMAzPMHSI0E9YzNyd7MSXz dYrfCC8zkFEmBLqlOu8yzTqvbKu cMH4vAVAxlncdSJCvdV4dPNKlaN GviFuxUP7zQJUnsurqr876 FnGyKNG2LYAneQFkS6HryV8oIgU dMWXeWAZkU2XvkCZtCRqmS108HB pmKgL3ODYmxyMyI3CfTUPl kVlvLfR4r0A3Ad8oHE5mEi0kHCo 4PW74QP40fYUhl8F2xBK5R0IqXE UptpkourvnnBU9SOHbHFSg lL20iBAuMCdnCv9ya8L4j648SFU rPKKemE44Rz7ijSjrUJQdzPKHjI 5tqkxby8awwirrIhUmEUYn ZFf4RTa0GZDeuGjuXuMxVEE7VaS 9AIY5mBCiyG1buXrepxdtzG5kKp c+JtEqLDYhucH6A8XzWar5 ENUusOgiTO1upPNdOTauLp0vnUb psGzyZT6dLIRxgflmBSCznU9gRX QvlFArdZvoFB9yCVJolojh z559GpEnBYK9WPVyaZNaK7RsoC6 bNrGbSZBpTKCtN0DeuYViDLtmJ6 33YAcqAyN4DTOkoyQgM4Lq VOTjlDtsHpP4g3K9Bo3LLB9PJKG 3D8InZca6LKKtnNweGH2wzBLnVU waOu2qyIfsgYyyWE8fYIXv mstcCCClbD3tKOPnfJJijEgaJL2 hBVPhoobye292IcStPOY5IQKglE DnP4YkwF9jEmOhGSRyCUNt W0LafTIjUIjjE212VCfaYrD6FUQ xyzHrR7XtIRQitSfdYvQ1u6F3Cu 5PYnNlcnZhdGlvbjwvdGQ+ WY80iw19X4KaEovlJdt8URYuPPN 0iGC7xC7gCHTyRKais3E8sBT5A1 NjsjSybw2iv8suCLTeTAqa G40qhZMhu6J9VWOrfUL0EASebIr uNcNajY80Fxf+VMUwfCjhk6VmDy heu0zqk9pkqRz6HiXgNYJw unHgrOxgWEQ6p3TfKf37J26lJMc wYHHzNYBbFMIlKETtrEodpf6rhK 9wIi8+AGJkxYI7zLK6vD8e VsPvQsC2NDkkY340FfMunBAiPgk ip9lot3rbqKy1TeBiSPAytlCurF hfVKV8t2DdLj36B6LygCox v5CfQjm9ce61bKIlp9N2kLL6R3U sWLKkglwtcJEdkGxjAS7iNLQrox wrQFPvsM5aPMXvE2h3GoDq VgE8CFwrZ9EjemW9TOYixOPsLLS ciICLvW9qdpfoz2kxclmtCpDoNK NrIGw5UKt8JVDefMqtJkGy RTB1JhZ2RSM4eUQspW5ltLoluot rjX0lXbm+IEa2r7anySCcHQ1heT J4AR18QK97lORgb4R9mEK7 Q9WcIRSxwwvoxjetrGO9UZXeFFR pgG58Na7elJovRb9aIGNjCDX5LK ApnVPlD0RjiE5kPsQiQWXo YLZlD8UetFKnLDbeT810VUajHdG 3XGKalwWdD9NcGLJaiQcsEhQ6c0 Q5Ne2GKC05LJ83UJ55dSYx d7O4kIO9L4IhFGHtrgvnrfmxaUT 5INZmQPKdkX59Jt8thFxzGe1dTM AyZLI4PVFfiKSsB6JleU5w VsEyOBQlQJYnN6GjkCUuMUlgB01 2JCjnEnF6EMSldwUrD5BgLOVbkV xcMtX1y8Y7Cg6VYl90WF38 KQ01sVDpm1M6lNL3V1BkLPOjvab xbwhceHA1WJUbNFJwxK37Bg3sdA pyRu3nLYPyJRY6DPPerDVt Y2FkiL5oAkNtYMVoXEKpX3EiaRQ hENqzB588FTceGlS3SZHpumFbW2 KwYPRsiJgfNmW0d8F8Pi2E IFccxyr5Q2HxLeccnFU+NS27UEG oLF88gAFtcJByn0nejXm6DtImMR GzPPX9vKpuTFkdt2MyWPYr Y29 (more content not included)... Normal [facility] - AP Resultson 4 Lab - AP Results [id number]#1.00OTGTIFF Normal [facility] MR KNEE LT WO CONTon 024 [...] Mckenzie MD on 03/04/2024 9:59 AM Normal [facility] Consent Formson 02-29-2024 Consent Forms [id number][facility]-28-2024 Consent Forms [id number]#1.[facility] Cons[facility] Forms [id number]#1.[facility] MAGR Postoperative Recordon 02-28-2024 MAGR Postoperative Record MAGR Phase II Record Summary Primary Physician: Peter Booth MD Finalized Date/Time: 02/28/24 07:49:14 Pt. Name: LUCILA JACQUES/Sex: 1990 FEMALE Med Rec #: [id number] Physician: Param Michelle DO Financial #: [id number] Pt. Type: O Room/Bed: [facility] Admit/Disch: 02/26/24 22:40:28 - 02/27/24 18:45:00 Institution: [...] Signed By: Mya Villar RN 02/28/24 07:49 [facility] Outside Recordson 02-28-2024 Outside Records [id number]#[place] Tele[place] Telemetry Strips [id number]#1.[place] .Auto Diff 102-27-2024 [facility] % 8 % Normal -12 [facility] Comment on above: Performed By: #### 1 [id number], [id number], [id number], [id number], [id number], [id number] #### [facility] (DEFAULT) [address] [place] [id number] Baso Abs# 0.0 x10 Normal 0.0-0.2 [facility] Comment on above: Performed By: #### 1 [id number], [id number], [id number], [id number], [id number], [id number] #### [facility] (DEFAULT) [address] [place] [id number] Basophils/100 WBC (Bld) 0.4 % Normal 0.2-2.0 [facility] Comment on above: Performed By: #### 1 [id number], [id number], [id number], [id number], 9357816, 9446672, 3350188, 7751626 #### [facility] (DEFAULT) [address] [place] [address] 10543 Eos Abs# 0.1 x10 Normal 0.0-0.4 [facility] Comment on above: Performed By: #### 1 7853203, 1218269303, 2834249, 6037699262, 8714620, 1462959, 5011719, 9794350 #### [facility] (DEFAULT) [address] [place] [address] Eosinophils/100 WBC (Bld) 1.1 % Normal 0.9-4.0 [facility] Comment on above: Performed By: #### 1 8123774, 1861454767, 5760913, 7902086644, 5099708, 9794556, 2251662, 6588771 #### [facility] (DEFAULT) [address] [place] [address] 01717 Lymph Abs# 2.1 x10 Normal 1.3-2.9 [facility] Comment on above: Performed By: #### 1 7093832, 9901145181, 5801842, 2555555933, 1645855, 4658463, 6931897, 8152791 #### [facility] (DEFAULT) [address] [place] [address] Lymphocytes/100 WBC (Bld) 28 % Normal 14-48 [facility] Comment on above: Performed By: #### 1 4883116, 9799964037, 5584769, 0324900074, 9560244, 3134847, 7150536, 4930146 #### [facility] (DEFAULT) [address] [place] [address] 77270 Hughes Abs# 0.6 x10 Normal 0.0-0.8 [facility] Comment on above: Performed By: #### 1 8369489, 4237116340, 8353923, 7797576546, 3408591, 4810938, 9774705, 1146377 #### [facility] (DEFAULT) [address] [place] [address] 26725 Neut Abs# 4.8 x10 Normal 1.5-9.2 [facility] Comment on above: Performed By: #### 1 4502175, 5627823940, 5149080, 6950136403, 2595426, 6453146, 2686424, 8796046 #### [facility] (DEFAULT) [address] [place] [address] Neutrophils/100 WBC (Bld) 63 % Normal 44-88 [facility] Comment on above: Performed By: #### 1 9817315, 2848236786, 2144949, 2815223686, 3478023, 5800140, 1240325, 0479759 #### [facility] (DEFAULT) [address] [place] [address] 92411 Amylaseon 02-27-2024 Amylase [Catalytic activity/Vol] 51.0 U/L Normal 28.0-100.0 [facility] Comment on above: Performed By: #### 1 3150229, 0960874847, 0895890, 3049172645, 5824260, 4555919, 0422097, 9690609 ####[facility] (DEFAULT)[address] [place] [address] Anesthesia Noteon 02-27-2024 Anesthesia Note Patient: LIOR [...] on: 02/27/2024 12:58 EDT] Juliano Peterson DO [facility] Anesthesia Note Patient: LIOR JACQUES IN [...] history): All Problems Anxiety / SNOMED CT 35476925 / Confirmed Arthritis of left knee / SNOMED CT 098040705601655 / Confirmed Body mass index 40+ - severely obese / SNOMED CT 6355248208 / Confirmed Genital warts / SNOMED CT 503135629 / Confirmed History of arthroscopy of knee joint / SNOMED CT 5406312071 / Confirmed History of bariatric surgical procedure. / SNOMED CT 1355248864 / Confirmed Gastric bypass status for obesity / SNOMED CT 0795834962 / Confirmed H/O syncope / SNOMED CT 2369962939 / Confirmed Hypokalemia / SNOMED CT 93234169 / Confirmed Hypomagnesemia / SNOMED CT 985008017 / Confirmed Mixed anxiety and depressive disorder / SNOMED CT 289583729 / Confirmed Morbid obesity / SNOMED CT 317110723 / Confirmed Peripheral venous insufficiency / SNOMED CT 33881536 / Confirmed Sacroiliac joint pain / SNOMED CT 626482716 / Confirmed Varicose veins of left lower limb / SNOMED CT 689244551457981 / Confirmed Resolved: / SNOMED CT 712101660 Histories Family History: Clotting disorder Mother Diabetes mellitus type 2 Father Grandmother (Paternal) High blood pressure Father PVD - Peripheral vascular disease Mother GERD - Gastro-esophageal reflux disease Father Procedure history: CT guided nerve block (8458063186) on 01/12/2024 at 33 Years. Comments: 01/12/2024 11:39 LUKET - Cuong Chowdary MA LEFT GENICULAR microphlebectomy in the month of 07/2017 at 27 Years. Comments: 03/19/2019 10:05 Margaret Catalan ICING MIXER left leg Gastric sleeve (0265628661) in the month of 07/2016 at 26 Years. section (47318425) on 11/10/2014 at 24 Years. section (19508914) on 06/29/2012 at 21 Years. Gastric band (9327549228). Social History Electronic Cigarette/Vaping Assessment Electronic Cigarette [...] (FEB 26 (more content not included)... Normal [facility] CBC w/ Auto Diffon Erythrocyte distribution width (RBC) [Ratio] 13.3 % Normal 11.5-15.0 [facility] Comment on above: Performed By: #### 1 2751276, 2137581966, 2642638, 4442559471, 6091295, 2517122, 8140573, 8504339 #### [facility] (DEFAULT) [address] [place] [address] 74879 Hematocrit (Bld) [Volume fraction] 42.2 % High 33.7-40.4 [facility] Comment on above: Performed By: #### 1 0780207, 0106762842, 7232878, 4875136796, 7910166, 3912072, 7154712, 3841484 #### [facility] (DEFAULT) [address] [place] [address] 90921 Hemoglobin (Bld) [Mass/Vol] 14.3 g/dL Normal 11.3-15.9 [facility] Comment on above: Performed By: #### 1 6520726, 4255134678, 9154275, 5620959711, 2646580, 6524450, 6774791, 9596759 #### [facility] (DEFAULT) [address] [place] [address] MCH (RBC) [Entitic mass] 30 pg Normal 24-34 [facility] Comment on above: Performed By: #### 1 4966621, 6945069126, 4300902, 9918760361, 3797566, 0641054, 2277808, 5320913 #### [facility] (DEFAULT) [address] [place] [address] MCHC (RBC) [Mass/Vol] 34 g/dL Normal 26-37 [facility] Comment on above: Performed By: #### 1 2359645, 3947282264, 2473473, 1051349143, 8364709, 3680156, 2625249, 6358207 #### [facility] (DEFAULT) [address] [place] [address] MCV (RBC) [Entitic vol] 90 fL Normal 81-100 [facility] Comment on above: Performed By: #### 1 9638104, 7984720861, 5410221, 3771820189, 3846069, 1007047, 7252219, 2367429 #### [facility] (DEFAULT) [address] [place] [address] 28763 Platelet 243 x10 Normal 138-427 [facility] Comment on above: Performed By: #### 1 7304139, 0540131763, 5052781, 6583786769, 6281392, 7896713, 0812713, 1162627 #### [facility] (DEFAULT) [address] [place] [address] 34481 Platelet mean volume (Bld) [Entitic vol] 8.0 fL Normal 6.3-10.2 [facility] Comment on above: Performed By: #### 1 5985475, 0261858992, 0582778, 9452714997, 6566237, 5434413, 3648665, 5712207 #### [facility] (DEFAULT) [address] [place] [address] RBC 4.70 x10 Normal 3.70-5.30 [facility] Comment on above: Performed By: #### 1 8229909, 8125333144, 8410146, 7745464604, 0523080, 4511332, 3827067, 6865805 #### [facility] (DEFAULT) [address] [place] [address] WBC 7.7 x10 Normal 3.5-10.5 [facility] Comment on above: Performed By: #### 1 5836730, 3094805491, 3476810, 9946576847, 6084034, 7834008, 3423889, 3019425 #### [facility] (DEFAULT) [address] [place] [address] Man Diff? Auto Invalid Interpretation Code [facility] Comment on above: Performed By: #### 1 7346609, 7203657847, 0601696, 2798154517, 5794438, 9046347, 3850019, 2585099 #### [facility] (DEFAULT) [address] [place] [address] CMP Standardon 02-27-2024 eGFR Non AA >60 Invalid Interpretation Code [facility] Comment on above: Performed By: #### 1 5888096, 6650241548, 7355667, 7133846059, 5037654, 8159461, 8947057, 2246623 #### [facility] (DEFAULT) [address] [place] [address] eGFR AA >60 Invalid Interpretation Code [facility] Comment on above: Performed By: #### 1 5274885, 9231358388, 6808607, 3603127633, 3733786, 1294241, 7177392, 5267530 #### [facility] (DEFAULT) [address] [place] [address] Albumin [Mass/Vol] 4.2 g/dL Normal 3.5-5.0 [facility] Comment on above: Performed By: #### 1 4610042, 1414792093, 4401682, 3611254077, 3577038, 0004584, 3387528, 3378497 #### [facility] (DEFAULT) [address] [place] [address] 75457 Albumin/Globulin [Mass ratio] 1.4 {ratio} Normal 1.4-2.6 [facility] Comment on above: Performed By: #### 1 6619159, 8656029037, 4261107, 4897556090, 5098379, 3257220, 4000752, 4344051 #### [facility] (DEFAULT) [address] [place] [address] 14093 Alk Phos 56 IU/L Normal 32-91 [facility] Comment on above: Performed By: #### 1 1550938, 7364593548, 0592497, 1250265210, 7030762, 2656069, 2044773, 5697773 #### [facility] (DEFAULT) [address] [place] [address] 29536 ALT [Catalytic activity/Vol] 22.0 U/L Normal 14.0-54.0 [facility] Comment on above: Performed By: #### 1 1485820, 2891816869, 1065339, 1655859385, 4353056, 8303277, 3141798, 8803955 #### [facility] (DEFAULT) [address] [place] [address] 08178 Anion gap [Moles/Vol] 10.5 mmol/L Normal 5.0-19.0 [facility] Comment on above: Performed By: #### 1 9343943, 7062981378, 4598433, 5102924355, 4572699, 2750636, 5698612, 5253547 #### [facility] (DEFAULT) [address] [place] [address] 13405 AST [Catalytic activity/Vol] 26 U/L Normal 15-41 [facility] Comment on above: Performed By: #### 1 3802053, 7578636347, 1187240, 7913980956, 2442983, 0757322, 7035049, 1363770 #### [facility] (DEFAULT) [address] [place] [address] 04558 Bili Total 0.8 mg/dL Normal 0.3-1.2 [facility] Comment on above: Performed By: #### 1 8623522, 3593800149, 9557997, 3575188260, 3749923, 7892065, 0703832, 5373592 #### [facility] (DEFAULT) [address] [place] [address] 62144 Calcium [Mass/Vol] 9.0 mg/dL Normal 8.9-10.3 [facility] Comment on above: Performed By: #### 1 3071475, 9969702576, 9996763, 3698906154, 8793004, 5621838, 0083075, 3389276 #### [facility] (DEFAULT) [address] [place] [address] 15041 Chloride [Moles/Vol] 105 mmol/L Normal 101-111 [facility] Comment on above: Performed By: #### 1 7673496, 4376932034, 9814580, 6954393446, 5962758, 6869135, 3766972, 5661381 #### [facility] (DEFAULT) [address] [place] [address] 98990 CO2 [Moles/Vol] 24 mmol/L Normal 21-32 [facility] Comment on above: Performed By: #### 1 5239751, 8555973662, 1797198, 3801391142, 8707288, 9769478, 3564722, 2914785 #### [facility] (DEFAULT) [address] [place] [address] 44192 Creatinine [Mass/Vol] 0.68 mg/dL Normal 0.60-1.30 [facility] Comment on above: Performed By: #### 1 4210041, 7674124865, 4148124, 6572135806, 9871061, 6217394, 7957041, 8438413 #### [facility] (DEFAULT) [address] [place] [address] 59505 Globulin (S) [Mass/Vol] 3.0 g/dL Normal 1.5-4.3 [facility] Comment on above: Performed By: #### 1 9254519, 9045759482, 9958859, 0675525851, 3981105, 9654489, 5487681, 6347607 #### [facility] (DEFAULT) [address] [place] [address] 12039 Glucose [Mass/Vol] 93.0 mg/dL Normal 74.0-118.0 [facility] Comment on above: Performed By: #### 1 2856897, 1327029569, 2228203, 4664490361, 7509320, 3051642, 1227746, 4320789 #### [facility] (DEFAULT) [address] [place] [address] 82827 Osmolality 270 mOsm/L Invalid Interpretation Code [facility] Comment on above: Performed By: #### 1 6050516, 8555438607, 4889117, 1279606902, 8536294, 0440186, 0692274, 5157671 #### [facility] (DEFAULT) [address] [place] [address] 40656 Potassium [Moles/Vol] 3.5 mmol/L Low 3.6-5.1 [facility] Comment on above: Performed By: #### 1 9868903, 9885735171, 6138443, 6199159660, 7928454, 9552953, 4288470, 7171045 #### [facility] (DEFAULT) [address] [place] [address] 15669 Protein [Mass/Vol] 7.2 g/dL Normal 6.5-8.1 [facility] Comment on above: Performed By: #### 1 6983644, 7160387330, 3804705, 4985309012, 7861031, 3538745, 3708391, 8109820 #### [facility] (DEFAULT) [address] [place] [address] 41903 Sodium [Moles/Vol] 136.0 mmol/L Normal 136.0-144 . 0 [facility] Comment on above: Performed By: #### 1 3192214, 9907936211, 3600826, 8124879093, 4568679, 0256814, 8831007, 5645120 #### [facility] (DEFAULT) [address] [place] [address] 81305 Urea nitrogen [Mass/Vol] 9 mg/dL Normal 8-26 [facility] Comment on above: Performed By: #### 1 5351783, 4006938573, 6649270, 1838876966, 2948302, 5511349, 0985614, 1222912 #### [facility] (DEFAULT) [address] [place] [address] Urea nitrogen/Creatinine [Mass ratio] 13.2 mg/mg Normal 4.6-16.2 [facility] Comment on above: Performed By: #### 1 5115022, 4612049112, 8489162, 3960291047, 6106122, 9089925, 2064895, 5633142 #### [facility] (DEFAULT) [address] [place] [address] CT PE Chest/Abdomen/Pelvis w / Contraston 02-27-2024 [...] MD 02/27/24 2:37 am Technologist: CB Thomas [facility] ED Clinical Summaryon 2023 ED Clinical Summary [facility] - Emergency Department [address] [place], [place] [id number] ED Clinical Summary PERSON INFORMATION Name: LUCILA JACQUES Age: 33 Years Sex: FEMALE : 1990 MRN: Acct#: Visit Reason: Abdominal pain; ACUTE CHOLECYSTITIS Arrival: 02/26/2024 22:40:28 Discharge: LOS: 000 09:38 Check In: 02/26/2024 22:40:28 Checkout:02/27/2024 08:18:49 Address: [address] [place] [address] PCP: Provider, None PROVIDER INFORMATION Provider Role Assigned Unassigned Tamika Alvarenga RN ED Nurse 02/26/2024 23:12:50 Param Michelle DO ED Provider 02/26/2024 23:38:41 Abdulkadir Maradiaga INTERPRETER TRANSLATOR Nurse 02/27/2024 07:25:13 VITALS INFORMATION Vital Sign [...] recorded.. Surgical history: CT guided nerve block (7703145752) on 01/12/2024 at 33 Years. Comments: 01/12/2024 11:39 EDT - Cuogn Chowdary MA LEFT GENICULAR microphlebectomy in the month of 07/2017 at 27 Years. Comments: 03/19/2019 10:05 EDT - Margaret Perera LPN left leg Gastric sleeve (7172618255) in the month of 07/2016 at 26 Years. section (07093856) on 11/10/2014 at 24 Years. section (10994749) on 06/29/2012 at 21 Years. Gastric band (3186577195).. Family history: Clotting disorder Mother Diabetes mellitus type 2 (more content not included)... [facility] ED Note - Physicianon 2023 [...] recorded.. Surgical history: CT guided nerve block (3399410708) on 01/12/2024 at 33 Years. Comments: 01/12/2024 11:39 EDT - Cuong Chowdary MA LEFT GENICULAR microphlebectomy in the month of 07/2017 at 27 Years. Comments: 03/19/2019 10:05 EDT - Margaret Perera ICING MIXER left leg Gastric sleeve (7856885267) in the month of 07/2016 at 26 Years. section (30357260) on 11/10/2014 at 24 Years. section (58754300) on 06/29/2012 at 21 Years. Gastric band (7104330502).. Family history: Clotting disorder Mother Diabetes mellitus [...] Respiratory: Lungs ar (more content not included)... [facility] ED Note-Nursingon 02-27-2024 ED Note-Nursing Pt arrives to ED alvaro m 7 complaining of abdominal pain. Pt states it has been going on for a few days, Pt has history of gastric bypass done at a [facility] facility. Pt denies any other complaints. [facility] ED Patient Education Noteon 02-27-2024 ED Patient Education Note Education Materials [facility] ED Patient Summaryon 024 ED Patient Summary [facility] - Emergency Department [address] [place] [address] PATIENT DISCHARGE INSTRUCTIONS Patient Information Name: LUCILA JACQUES Age: 33 Years Date of : 1990 Reason For Visit: Abdominal pain; ACUTE CHOLECYSTITIS Arrival Time: 02/26/2024 22:40:28 Primary Care Physician: Provider, None Attending Physician: Maurizio Mast MD Comment: Visit Diagnosis: Diagnoses This Visit Abdominal pain ([id number]) Acute cholecystitis (K81.0) Biliary colic (K80.50) The Pharmacy at [facility] is open Monday through Monday from [...] alcohol and/or drug addiction problems; contact the [facility] 17/04 Crisis Hotline -Text 4HHDH on 375904. If you received any narcotics, sedation, or [...] and treatment you received today in the [facility] Emergency Department were for an urgent problem and are not intended as complete care. It is important for you to follow up with a doctor, nurse practitioner, or physician?s assistant vice president for ongoing care. If your symptoms become [...] so we can reach you if necessary. [facility] Emergency Department has provided you with a complete list of medications post discharge. Please inform your melt supervisor/provider of your visit and for further instruction [...] for D (more content not included)... Normal [facility] Inpatient Patient Summaryon 02-27-2024 Inpatient Patient Summary [place] [id number] Patient Discharge Instructions Name: LUCILA JACQUES : 1990 Patient Address: [address] [place] [address] Primary Care Provider: Name: Provider, None Phone: After you are discharged if you find you have any questions, please, call [phone] ext [phone] to speak to a nurse. The Pharmacy at [facility] is open Monday through Monday from [...] alcohol and/or drug addiction problems; contact the [facility] 17/04 Crisis Hotline -Text 4HOPE to 788586. If you received any narcotics, sedation, or [...] business decisions or sign any legal documents [facility] would like to thank you for allowing us to assist you with your healthcare needs. The following includes patient education materials and information regarding your injury/illness. LUCILA JACQUES has been given the following list of follow-up instructions, prescriptions, and patient education materials: Follow-up Instructions With: Address: When: Peter Booth [address] [place] [address], [place] [address] Business (1) In 2 weeks 03/12/2024 Comments: Call for follow up appointment With: Address: When: Loni Provider [address] [place] [address] Medications During the course of your visit, your medication list was updated with the most current information. The details of those changes are reflected below: New Medications [id number], [address] [place], [place] [id number], [phone] acetaminophen-hydrocodone (acetaminophen-hydrocodone 325 mg-5 mg oral tablet) [...] problems or questions, (more content not included)... [facility] 02-27-2024 L Specimen: [id number] Received: 02/28/24 Status: MICHAEL Young Num: [id number] Spec Type: Surgical Subm Dr: Peter Booth MD Tissues: A Gallbladder (GALLBLADDER) Procedures: HE/2, Gross/Micro L3 Age/ Patient Sex Location Account Attending Physician Lucila Jacques 33/F [facility] [id number] Maurizio Mast MD SPEC NUM: [id number] RECD: 02/28/24 STATUS: MICHAEL YOUNG NUM: [id number] NIELS: 02/27/[address]: Peetr Booth MD ENTERED: 02/28/[address]: Edilberto,Lab SPEC TYPE: Surgical DEPT: MAG [...] gallbladder wall measures 0.1 cm in thickness. Roll Up Helper sections are submitted in A1 (gallbladder) and A2 (lymph node). CPT Codes 62134 Specimen: [id number] Received: 02/28/24-123 Status: MICHAEL Young Num: [id number] Spec Type: Surgical Subm Dr: Peter Booth MD Tissues: A Gallbladder (GALLBLADDER) Procedures: HE/2, Gross/Micro L3 Patient: Lucila Jacques [id number] (Continued) Signed (signature on file) Domenic Hopper MD 02/29/24 0813 Normal [facility] Lactic Acidon 02-27-2024 Lactic Acid 15.3 mg/dL Normal 4.5-19.8 [facility] Comment on above: Performed By: #### 2 [id number] ####[facility] (DEFAULT)[address] [place] [address] Lipaseon 02-27-2024 Lipase Level 30.0 IU/L Normal 22.0-51.0 [facility] Comment on above: Performed By: #### 1 3720726, 8833521070, 7124813, 9366879595, 7736327, 9329787, 6250774, 4619915 ####[facility] (DEFAULT)[address] [place] [address] MAGR Intraoperative Recordon 02-27-2024 MAGR Intraoperative Record MAGR Intra-Op Record Summary Primary Physician: Peter Booth MD Finalized Date/Time: 02/27/24 12:38:12 Pt. Name: JACQUES LUCILA GOODMAN /Sex: 1990 FEMALE Med Rec #: [id number] Physician: Param Michelle DO Financial #: [id number] Pt. Type: O Room/Bed: [facility] Admit/Disch: 02/26/24 22:40:28 - Institution: Case Times [...] Role Performed Surgeon - Primary Anesthesiologist of Distribution A Class Lineman Record Time In 02/27/24 11:31:00 02/27/24 11:01:00 02/27/24 11:01:00 Time Out 02/27/24 12:19:00 02/27/24 12:36:00 02/27/24 12:36:00 Procedure Cholecystectomy Cholecystectomy Cholecystectomy Laparoscopic Laparoscopic Laparoscopic Last Modified By: Bre Spaulding RN, Debra RN Myers, Debra RN 02/27/24 12:35:49 02/27/24 12:35:49 02/27/24 12:35:49 Entry 4 Entry 5 Entry 6 Case Attendee Dina Malcolm CST, Will Ortiz CST, CST, CST CSFMadison Role Performed Doctor'S Assistant Doctor'S Assistant Scrub Personnel Time In 02/27/24 11:01:00 02/27/24 [...] Peterson DO, Bre Spaulding RN, Dina Malcolm HORTICULTURAL FARM MANAGER, Tru HORTICULTURAL FARM MANAGER, Marie LEBLANC CSFA, Will Miller HORTICULTURAL FARM MANAGER Last Modified By: Bre Spaulding RN 02/27/24 [...] Text: E.290 Eval (more content not included)... [facility] MAGR PACU Recordon MAGR PACU Record MAGR PACU Record [facility] Primary Physician: Peter Booth MD Finalized Date/Time: 02/27/24 14:07:36 Pt. Name: LUCILA JACQUES/Sex: 1990 FEMALE Med Rec #: [id number] Physician: Param Michelle DO Financial #: [id number] Pt. Type: O Room/Bed: [facility]/ Admit/Disch: 02/26/24 22:40:28 - Institution: PACU Case Times MAGR Entry 1 In PACU I 02/27/24 12:38:00 Discharge from PACU 02/27/24 13:40:00 I Last Modified By: Yarelis Schmitt RN 02/27/24 14:07:32 Finalized By: Yarelis Schmitt RN Document Signatures Signed By: Yarelis Schmitt RN 02/27/24 14:07 [facility] Magnesiumon 02-27-2024 Magnesium [Mass/Vol] 1.86 mg/dL Normal 1.80-2.50 [facility] Comment on above: Performed By: #### 1 3179227, 8340971431, 6897938, 9751579866, 7108197, 5958585, 0480107, 9714334 ####[facility] (DEFAULT)[address] [place] [address] Nutrition Noteon 02-27-2024 Nutrition Note Chart reviewed; 33 y o female diagnosed with s/p lap choly; diet order full liquids; patient with history of gastric bypass surgery ; no difficulties with chew/swallow identified on admit; encourage increase po as rachael; rec advance as rachael to regular soft diet; will monitor po with diet advance, wt/labs for changes; follow, assist prn. ts [facility] PTon 02-27-2024 INR Coag (PPP) [Relative time] 0.98 {INR} Normal 0.91-1.11 [facility] Comment on above: Performed By: #### 1 9581409, [id number], 9809939, [id number], [id number], [id number], [id number], [id number] ####[facility] (DEFAULT)[address] [place] [address] PT 10.2 second(s) Normal 9.7-11.8 [facility] Comment on above: Performed By: #### 1 [id number], [id number], [id number], [id number], [id number], [id number], [id number], [id number] ####[facility] (DEFAULT)[address] [place] [address] Test Serum 1on Preg Serum Internal Control [place] [facility] Comment on above: Performed By: #### 3 [id number] ####[facility] (DEFAULT)[address] [place] [address] Test Serum Qual Negative [facility] Comment on above: Performed By: #### 3 [id number] ####[facility] (DEFAULT)[address] [place] [address] TnI HSon 02-27-2024 Troponin I High Sensitivity 3.0 pg/mL Normal <=15.0 [facility] Comment on above: Performed By: #### 1 [id number], [id number], [id number], [id number], [id number], [id number], [id number], [id number] ####[facility] (DEFAULT)[address] [place] [address] UA w Culture if Ind Standard on 02-27-2024 Breakpoint UA [facility] Comment on above: Performed By: #### 1 [id number] ####[facility] (DEFAULT)[address] [place] [address] Color (U) Yellow [facility] Comment on above: Performed By: #### 1 [id number] ####[facility] (DEFAULT)[address] [place] [address] Culture? Not Indicated Invalid Interpretation Code [facility] Comment on above: Result Comment: Resu lt created by rule GL_MAGR_ADD_UA_CULT1 Performed By: #### 1 [id number] ####[facility] (DEFAULT)[address] [place] [address] Glucose (U) [Mass/Vol] Negative [facility] Comment on above: Performed By: #### 1 [id number] ####[facility] (DEFAULT)[address] [place] [address] Ketones Ql (U) 40 [facility] Comment on above: Performed By: #### 1 [id number] ####[facility] (DEFAULT)[address] [place] [address] Micro? Not Indicated Invalid Interpretation Code [facility] Comment on above: Result Comment: Resu lt created by rule GL_MAGR_ADD_UA_MICRO Performed By: #### 1 [id number] ####[facility] (DEFAULT)[address] [place] [address] UA Bilirubin Negative [facility] Comment on above: Performed By: #### 1 [id number] ####[facility] (DEFAULT)[address] [place] [address] UA Blood Negative Normal [facility] Comment on above: Performed By: #### 1 [id number] ####[facility] (DEFAULT)[address] [place] [address] UA Clarity CLEAR Normal CLEAR [facility] Comment on above: Performed By: #### 1 [id number] ####[facility] (DEFAULT)[address] [place] [address] UA Leuk Est Negative Normal NEGATIVE [facility] Comment on above: Performed By: #### 1 [id number] ####[facility] (DEFAULT)[address] [place] [address] UA Nitrite Negative Normal NEGATIVE [facility] Comment on above: Performed By: #### 1 [id number] ####[facility] (DEFAULT)[address] [place] [address] UA pH 7.5 Normal 5-8 [facility] Comment on above: Performed By: #### 1 [id number] ####[facility] (DEFAULT)[address] [place] [address] UA Protein Negative Normal NEGATIVE [facility] Comment on above: Performed By: #### 1 [id number] ####[facility] (DEFAULT)[address] [place] [address] UA Spec Grav 1.015 Normal 1.001-1.[address] [place] [address] Comment on above: Performed By: #### 1 [id number] ####[facility] (DEFAULT)[address] [place] [address] UA Urobilinogen 0.2 mg/dL Normal 0.2-1.0 [facility] Comment on above: Performed By: #### 1 [id number] ####[facility] (DEFAULT)[address] [place] [address]67 Urine Source Clean Catch Normal [facility] Comment on above: Performed By: #### 1 [id number] ####[facility] (DEFAULT)[address] [place] [address] US Gallbladderon 02-27-2024 US Gallbladder EXAM: US [...] Geovani Miranda MD 02/27/24 5:19 am Technologist: [facility] XR knee LT 4V*on 02-15-2024 XR knee LT 4V* [facility] [address] [place] [address] XRay Report Signed Patient: Lucila Jacques MR#: [id number] 31 : 1990 Acct:[id number] Age/Sex: 33 / F ADM Date: 02/15/24 Loc: [facility] Room: Type: [facility] Attending Dr: Santa Estrada II, MD Copies to: Santa Estrada MD Ordering Provider: Santa Estrada MD Date of Service: 02/15/24 XR/XR knee LT 4V*: M25.562 - Pain in left knee ([id number]) XR/XR pelvis 1-2V: M25.562 - Pain in [...] Palacio Jr., Clotilde02/15/2024 3:38 PM Dictation Location: [place] [address] Transcribed By: [facility] 02/15/24 1538 Dictated By: Haile Palacio Jr, DO 02/15/24 153 Signed By: 02/15/24 1538 [facility] Coding Summaryon 01-31-2024 Coding Summary HTMLBase 64 QxvtfascJLw5yNh+PGhlYWQ+PE1 RNYIcY70moJEpeA7cQ5LKFJvQXe ebKYAJREjDBsMqhdRyQU3adDZiW XJu IC8+PF4cYKPbZrtffQTlu9F1yQJ 9D46pwh9kGDzleER8JNGeDcKnxw rou4rzrTc2YTrvUzliLxBp MXGuvU73COA8qK29Zb21dLCecAM kk3swbSc1RpJcYMFvWMK6sBsoBP rhw7UqAIIdA89emLGdg5R6 NPTpqYxzqNRxRrQoeUI8jO4kIRs ypnday2iahjkrGfs9qs81zXDep8 X1xQC0A3YsldV5MIIjdYSe GkgqsTIQzO6ecqaoh9kdlfruWpM oUKAsWCk5DWo4DMXqnEwdIuFmQX 85TJM3TBPkooVkI7YcKIAq wFjxDxB2g7S0Ki5VG4UTUhulW9G NTUFSWTwvdGQ+JD17ec70G3GrWl pdBuq3OQWcQLR6nUL0fS9q HXOwBMxlf1U6fHA1H7SmjbLvod6 xz1wfLBFsRDasW02uwVAuk5F1AH BhnPU4KIAyjKavAcEseT28 Oyc+MBLtnTfak9GqUzcmd4cgm6w kjMz5RgcfWXDcykHwaZpjIYR3i7 RxAq7xZFRbzZD3vDB2bM4m EsOyXfY5PKglO000SbOhnWYhGya zU21mO6QhjRW+PEOaIov8VOKxvW lrFH4yF1PmVIDacsqoeEPa bMkvLV3vYTThtqqyFXWltW9bPGS uO0d6NdIiZjU4RQbpE6PoLGNwcy boXr34kC5gQkIkNfQ5WIwn O8EfwzT1CADqqHLtBXdrDWM5O99 qv6H6HXRePLQlSYU8rKD6nT6auY lnbjogbGVmdDsgdmVydGlj NWooYMkoH394QOZfiDdoBlRdRIk uZyBEYXRlOiAgMDUvMDgvMjAyND wvdGQ+QCVxNNU3bFedWHAf lNXjGZuiQt9fwXkrlWgcCV0oPXY bpujwYAEjtJ8hAPWbhRTdyIthDW 8lGYDhxgrkm156OwEoAQA2 AWWduJWaV2QmbG2fNaZpVKKtMGC wC6LasFCoKRxwF468XZjwGkH3DT UjzvRlU2QdFYQiyGeuSpT7 m0X7Tu0Qt4RjxensD1AzmOTeUxA iDdyaAQc2N6JkHxmomKO+PC90YW PkLR26GEk0MAO3ySlfJVue HDAuH2AyvW1vKbYnLJNrBOYcTay +PHRhYmxlIHdpZHRoPScxMDAlJy MsyBxsKC5xXf0jAINvHXEt sRfqyCZoLrBip2xiICGgOWovMJ2 fkIpeH5VwgDA3TPAar6x6En32I1 2cD2EowLF+HNRxmAS7gHA2 tK3kRrHkYmL7ODzkS767JyJrkOC nGbsni7dhh9uzdSz0XtV4BOLres GnyLdeWUF1i5GhNk72C28t IHdpZHRoPSIxNSUiIHZhbGlnbj0 thT2lUg5+ACGgpXR1zTI8iX7bXi PsUtJ8ZRqeM499QgLsjWYe Mvaou6xrq7uuoAz0XrZvKISgbfH oyBihIVX8d2MtEv40N3GldVoqu6 OxMhn1ri49yITes5R0tJV3 W0BwFAMgsivhlJBfjPgjDA5dOSA kyrbjARQsxX1gJSQdL3z1ChDzHe F0PKcoS6WyayX7HJCiuIFc VSOyjUGDlT8sxjdrt3hjnfnxWgS iRTPrTPd9IDl6WGDbjAliUrDqTX L8UlZ3IDD7uUQftG0zxTqw pvcdeG5sUhg+GSX6xHCzpPQVDS3 lOjwvdGQ+XGKkDRX6vIefDVgyVV PskB9nQYDcD9b7YlPgUlU0 JDgjI3ZzpcE1QJGwbNZyMHKkdNW UxW7stegtf2khivcgQhMcOSMdLR h8UFx4BWRptWxyJpUtPFA4 PrL2VQJ4vGAjuW7leAqhzglfbN0 wOyc+IrnxvIgjORW9FBm9N7YsZf r0UVUthEnqRJ5coZHwFRic Ge2afNqyjLpwOE4mREWyslvyv30 4JeLzw8yjSPVgwEAxBOgtREG3T3 3nb4S5WWLfGRJsQGT5cME8 qX3pjWacnhuotPIbmXdkqoNvcTy dJYviCQwfN930UTYvnOaeGqDtOD i2L3VwGzo5ISRndAnaGR1m ySGzVGhjMt5hkSigwOunUY6mTJN ezwbdi348WaQjf3hkVJEujUNoKQ rzLYQ3P00km1E1WVQtRHAo ATY2hGP8rN2xxYsbidrkoJZugXg etfOchChaRGbcWOdnA993FKNtwA ceStTtzWc9W0YgLwp4SGGl tZnyVF2isZEhZRkcQk5yiRkuvHn lRY4tTVWnqytzg831DyZhi9nqIU WelTEzVDefCKJ4M25fi6T8 HFDdYRYfKQJ9dHR1hL4knIgyqgg gbGVmdDsgdmVydGljYWwtYWxpZ2 46IHRvcDsnPlBhdGllbnQg CYosDQm2D6VkRdejaXH+WA54SVJ wFH61kAHegOAyv0caoMo8StXoSO GgRYJ3mBlaWGbzv4PmRHVy F88ruCOut2V7DBGtfRdouDIcUwD shJT8eQ9fPWxcdfozz7akadkyIb enu3gvsb64vR49O40dWPyo SKTcNCBtOKMbTYFlyHhatn6zdU4 wIi8+TJEhzKI3aSF7xN1qCYFoMj M7NTqzX583IdKqkQUrVhtb r8lek1xxtWy5GzU3YSIpncCcpIi rYEF5j5JjOy92C58yYIiyLVAjUY WoGPJvVNZyrVzjco7arB0v Ii8+WGXmtMQ2gUF0hD5rUqQbKbV 1XRdqX700DeUblMBsTpnyV71gT3 JvdXA+BKPpFut6GMCqmIas QM4yuAYsCSekCv9nXSK9PxHkVjV qFKwpS0BaBXDlkwhkajdzsLH7FL NiVWUsfQ60Gp3zqPjbAVEa eFKWlS8kluzmu1henbxeUwDsUMO vOUy5CQg5SUJvaUzeTxNxBRJ9Im Q8NCS8kJIexE5dzConbfxm mS8sZ5SkCJXynxeqNm72iI9qYvP aRuE8VJrtLht+OnDLBdaeG6WDTG uWOhRTHMB4K6FuUmn7MWBh vHhgXU5ydCNqMYneXl2lxMzqpHa gHK6wZMSnegdbCJTrzQ9jUXFxrO YesLxdZC0vUOCfbvwrx795 QiXrLXX5XBEwrPCnZ5TwlW7tYxD fIKWkZJMeT0GjkRBrPKrgN833WP rsLhE4TOUzshFpA4VdXVEd lNckAlT5t6C4Lm2lOO5fBd3nJUq 9JV17VN43vOMnc4U9yXY3M3WiWJ AieqdsvnyfmOR9GYNzNDGa gA24sRHfOUdxDl0ik7B3m868RRH mDSGoaH34Gi4cjPhuDDUzzRSDxG 1ghmydw1cluovxMwPkITXd CSl0TOn1UBGjjXwlUmOwEGP6KoV 6TSA6aAHaoH1syEfkiosfjD0bNb c+BhUbLBTbsgN2U0RcCji0 EMFmxDbnEL4faRPvBTsdQr3onLr lrHcxAQ9oWTCcteihTRKsqF3tUQ JthWXepIldKQ9vJNCcstbp x557UvJnXJB1KSVsoHZwH8GvbB0 hLgQvKFShMPQdW5XwsWLgCZmxT7 83KCeiCyC7PHZanaKyU3Nf TJFxqLqmHlK9p3T4Zn4UVX9NKFG 8S7ZlJbp3NCKntZbwQI9jwWRvIS qaPf0avHlnnRxvNH8sYNOb xoimXXDkdE9aWJJvmMLshJkdMI7 oOFOfxnihw178KhMzCNY7NLKgrK NmB2EcwY9vYfQwJHDgDTOx B4CzlTAvHYprE021YTsdSiZ3UNG xmaUtI7YhUOGaqIltXcM1l3R1Co 5PUDwvdGQ+HQ51ed56T9Gg IvsnXes9DWEuZFQ7mDJ8xD0xWLV xOLhrt4H0wFT1S2IjnlQxbj5ya8 krZILlKHsdP69azZNyu5C1 DSIcoUD0OMBmkNxbNwLgaT58Aci +YWNrcVske2KuLuyii4cgv2obvK o9UqIjVNQygnQukPvcVJU3 e7NmCb58Q01qUZaqVMEpPHJeBKJ bLSIwfZwvcx0nqX5uWx0+PGNvbC D0aCU1yQ6aYgMhHxW2DLfx T480OdCtaKKtNutqh8wcz1pwsXz 8VjBuOMRnmsVuvKmaDEA8f2XfIt 40C1AsvOebf3OnRdq7eb74 jRXdh2U7lMX9Q6KcYITfsridvZD mqAuzUL4bVKXbazgcIPRslF4zJZ QqN5t2VtJgMeS9MAzjQ3Je pzJ8LLFdiALrVITguKKLiC1fefx qb9ofnqnoHaZsPRPvHMg0NLb7FR GmhJzdXxWoAGL9VnC2CGD7 tNAeeZ0eqJfycjetbZ0oSkp+UGh 2y1bbyTOmXD2opBL3PC61RE73iW Mgj5X2wRI9J2OuBSIlzjes xazmaGM1AMPaBTRxtY26Rz9kkJm uFi6nWYWxYNA3RTEtkGQvD1PbdG 7lDpYjDCVbIJHiV3HolIRn RGkkZ702EQzsFxF6PFMothJeM8T hUIXjlZjdKoR0c1U0Kr0XDS16DN 27DM16zCIwh4V3tXA7W1Lt MQYoofqmxtjyyDF7SBErOLHlzJ2 8Wb0eeVnnIe5oTUAwNJL1VFIubP ZvC2AneU2xKiHrWIPjJGPa B0XsyLBpISbkZ094WGbsHeF7ELV uekZnO3FgNXCrdYzyDaR2q1Q0Ve 7DOi45EJ54HS71iNNbv6E3 oDJ8N6HsHLBgzibqjoddyUQ6TIK uPXLdxF81Lo1ohWyqMv2xDUSgLX R5TCQgbTLbP9AecM8kWkMz ECRoNMWoI5RobXObURpxO651XFf dPhB3LWQclaWbP9ZsKDLldYmzWj C9m1W2Ld5AULfgycv3G0Qb PjwvdHI+TE49AWBfPF29rAMtdPZ gk1hzdEl6CmApFTBwDNC5nLqpRF ygt0QtOYMjT44pgOToq7W0 IGN (more content not included)... [facility] Progress Note - Provideron 0 01-29-2024 Progress Note - Provider [id number] [facility] Coding Summaryon 01-22-2024 Coding Summary HTMLBase 64 GkhuhevuJGp2aYt+PGhlYWQ+PE1 QIOIhT43wmXRfcS0iM9YTSGmOWp roNKYCPHfBYwVuhqTyDE6suUSqE XJu IC8+OF3xCVQzSpbtkESgm1H5rFO 0P43bmo9bRWykrYI7LSIcBwRyki axe6eqbSa4TXofAmkgCaRb SQRuzG97LKW2yC61Dc86hYEvkDG pf6enhAk7NrOcKORmPZB2sOmfFH cac6KyJSRyN78arBIyg0Q3 ZNLqqXmkhAMmKwUuhPR6uT8gXJa cakndb2isydwcBzg1qv32kKUsh2 C6jDF6Q5CqhsS0GRLziCXz UmqqqHSGlA1amxhmy1ridbvqCmB gYRKsONh3QRh3XFYgrZucZfLsQD 85FNT3ZLHhgjBeR1MyLUWw dDmmAbW4v9B4Et8LB3VAYsuqX2Y NTUFSWTwvdGQ+JW31pp44G0WlAv jdWkv2EOCqJPI3tRF5jD3e VPChHNolg4D9yOC6P1BghdUokc1 ex2rkIDEsIIhhI60auUIhi8I7KS KyuNW8HCYhwKgcUfRbrP72 Oyc+ZMWmcJkjz7ViUyjyb2oat7b svDa1JgpbGZIjmlJxeBhwWYC6x7 AoPx2wAPTxxMX5rDX0cC1f HcUvGvX3ATdrP665FrOzyONdJwg hC69bF1ZrcNU+JGMcBlz4SSLlyN psJO1kL2NfRKNdjzpbdFDq yWuyQL2hHCKabvcxNRQerB3zNVF lD0r9AuMoHjR4RLdmN4HeOBSjsz yyDg90xM3fMsUxHhP8RKwu W8GofuO9NISslZThYJjpRRB3R61 yw7C5HBQvRIItWSY7uPN1lL8buZ lnbjogbGVmdDsgdmVydGlj XUddAVtbK636IVZbnWtkNbCvFNz uZyBEYXRlOiAgMDQvMjkvMjAyND wvdGQ+IHMvBBN5cCooZCVd dOUvGIixZo1xvPsbnFmdPW4cSIX fjnpsDBVcgE8nSNAyxSUgmEewMZ 1iOQQpoafdi609LlNqVST9 NBDvoNRmT8HhcX1fSuBfFLEoBDM bP8NekVAsWBvtO181MHihUbR4ZX BhymPrN6NoFCNygOhvIvQ0 p0U5Ff3Qk9NzsymmV5JzlFMtEnN lLojwIXj6H7AsBzmppRD+PC90YW MhWR22WNe8YTO1cKxeRVtk ILZrS4DkhZ3nZdTdXVBcBUVhXfd +PHRhYmxlIHdpZHRoPScxMDAlJy TeoOavAW5vUv1jRNDeMMBk qHmgsEKfDjSby9wiNXSxBNbwFE9 poCjkF9ZaaIP7KRSgp1w5Tb83K6 4hX0KtxWX+GJZtxHL7rES2 qE4kUaOmTiI2ONboX721GyQulOM tYzcgu8vlv4rayJk3UlT7RYPmht AcaJlbAXS0u1NiDc65X20y IHdpZHRoPSIxNSUiIHZhbGlnbj0 muM8wHw6+DHFdyMC1xOZ7jE2lIg HiFwR1RXklX478KmMhfGSu Dkbco6mdy1lmwXj8ZuWyPDWkuiF yhRwzXZA3p9FaSk73F4JvlMipc7 UoYur6wl38iNZqv6S5iVM4 K6FwGFNbsacxgDZboOkiUU0kTVC vptxrLKZlyF6oWCEyS5t2PrAsYk L1HVspO7WrbeK6KRArlZFx LNEytMYNcZ6gvxerm6kpskxkQzT sYXAwMVo8SSb9ESXpgLvuJnVkFS M1LiL3STU5xRHlwV8ljZrh uruscA1nDfc+LYL9gWEotOPAYN4 lOjwvdGQ+WPCqOCW1zEyfCRnuCZ NcwZ1hVWUzF2u2FnGyEpH9 TQnuT7UhxrY5TFJxcVQfGWJgwTH IfN1dwkxet2vicyodQzKqHFVnCO b4OYl8EGSrcNnaJmLtRAO9 PzI1FQA7pOApgD3kmUgnfneesL7 wOyc+NebkdDalXKT3ZPm3E1RfTe m8OPJxcIzdTT3bkNXjNCww Kh6ckYjabVeeIO0qZKArhwqup30 2EbHal1ceUZDekVGqDWduURP5R8 4rq4X1WFPkXFZwKRW9qYG8 pU9hmYtswtbmfSMitVzdmvNkhHq fPNruPHjrD214NYSulLoyVdJxOD b2E6CqZao4DYMnoGgyCB3a hMQcDHagGn3nqOrajQuwWQ8jAXI frnhly559PoIlc3vbPAKonHAqEY elVIY9E56ze4D9IAXaXKBn DYA8mHR9uF8vtXpqnrymhIRirPm kbfZpwSxcSKkfCKvjF443WFGxpF adKeTiqMj5Y4PnQov5EKSr rPurIS4soLWcKXmjZs5rhNjmlMz pTW5wWYVjpfflr756StWed0xqYB BxnSWyNRtqBJQ0R95gr2Q0 LGEkSGYnRZQ7qZZ7zK8ywSeftwe gbGVmdDsgdmVydGljYWwtYWxpZ2 46IHRvcDsnPlBhdGllbnQg FVqkDAb8Q9VxSaiawPN+BZ94FTZ kLR45vOSasGWqs6kelYp2RyXmFO DaAHR0mQmtKPquw2UrBYFj T15voZLhg0V2TOKlcEmeaYYxGfN aiJQ8cN4pJIvkijkha8phctanUu ezu5lcgg95gT29H58fUQus YYTtMUUrISOxXDHabJtawl9nuC5 wIi8+BGVmcZK8zQE9dW1iDWPyTw T2FCkcA862HaYxnFRcNyzu g7jpl2dejTe8SyW3QAOyxpJdzXx oWSS8p5PrKk43M30hAMqbSANaKG AmYCUpZIGlzDzsja3cfC4z Ii8+IUWaiTB4bNT7hZ1fKwNvGnA 4OYpfF516JiGqtLDjDbibF26xE2 JvdXA+XPOkSll4EPKnqKfw XU4vsBPwEDsmQx8pIPE9IsKbRdH fAIpaU4WhEPOtoxtxnlxxiWX8XL EbWDGauH17Ew1ekYnxGQHb mAXWmU6pwfihs4qshwgtSmUhXBN aNHi3QDx3KLLoqIfgZsRdFAZ9Uz R0MRQ1oVLfjC1jtSrxnwbh dZ4iJ5IxITRpkjwiMm17wN9yBcC vNbD5VKglXzw+GgYNXuahD7WRYH sOWpLOBOA0K8JtAoc1RCXl sXxqSG8mzRMzVGpsNf0pgQmccLy tRR2gOMWildmeKRKqiY1qPPCytA OgiWenSR5fSBGhsmmvw396 KtQpSRS6FFKjuRSsM3HfgT3vAdE rOHGgHZJwC9ZrfFNvCPueX283ZK erSoS5XMJvebZmK7DiHZYl iHspWbU4s4D1Jw7pTB1rYv4oJNq 0WX47ZD44rIMju2C0tXS4P4TxWD UeddjgjxxtnQJ6ZMZfXVQv jS88dSQpOZclLw6uj1O4n055GLG vGOVenV20Bt1vqJdnLLAktHEMdQ 6vfavrt0mdnnisZnCaUEQy EIq7UMm7EZNneYctSjMxGGA1YqQ 9GWK2jQGsnO1exQlttakseG2yDh c+KrNmUZRjgzI4W7QiWmj3 PLOjnMlcIK3gzZQpUYkdLl7dgIv boNfgPS4ePFRncwfyJUQoaA5gGH YenGRkmUwaGU5vNGBvucoy p544DhNvBHY8HYXvwXHxL1TisB1 pFySpPVCgNRGwJ1TwbDKzZCjuY8 18LPfgYvY3BQRifeOaB7Zy BAZmnNegTmZ3a0G2My7LAL8FJKC 2V7KjGev0TLIfvSiiLO0aqOOkSO uuWh9zxValvVlgAS3jHBAf sohfOYFynR5oYTVbyJDyqStwIN2 iPPRbowyhf798QjEtXZP7FCCbzR DvA2MxkX0yLiCuOMKkMFLk U4IxtCWvSXxxO438AEblRiL6QSZ kzaVbN9QmKHIokPkoOnK6m5U3Rz 8YZKktR4IaV4BbjFzdqGO+ GL28eo75U0BkJckyWcj9LXTtPKQ 8oOS2eI9bKOSnHCnwk2X2oTU2P4 QcjkZqrq3bh9wgAUFyXDfa N83jrWSat5R2TNYgfFX5LMVkdGo zDnUtuI93Tkr+CYLuxBzwh8DyPk ekj4gla8hkvMk7UjUkERTx loBuxMcuSZL1t2SwHw20I25tWTa sNPIiXCHrLNIpTICnuWfyzn8wlX 9wIi8+JNThvTK3fWE8oV9i NhAfRgO1GTdmH133QmXtyQKhCnj gz6pdh4afqAn0UyVtGVQsdkUgwF wqSDX0e7NvIw25M3VfpAep j4OeKcs3jm83kLDwy1R3cWB8C4B iZRHjcdrymOJnlJfvPA8vELVruk fdOCBtnL7bMSCqR7t6XrDy AuT7AFjqV0FjxhL3FXTdfPGdXFR xqVCIxS1jdczvo2mjpezuPdXkDT YyACr4PTi7POQziLieUeRe BSP4NjJ1JQY9wWDlnM8tyZaynye yeJ5kDls+MSj7w3ugoQVqPQ8nzC X0EY73NV76lLQpl5H8qKJ4 R3WbZTTgngamhuvvuDE1KHShCIA cpY52Mf2cfWxcSk6cGATxVAY7VB XzkHRgM0UhfT2gUxLrVFXv LUCzS2AyoPLpZWvgZ675LJpwViP 6PDTupwJuO2NuMHWtnYnnOlT9k8 P4Jc8HCB82RP09NI45hMFo v2Q1tIZ5X9ZwAMHlzhbqlaybsTP 5AVFmKRGfjY08Kg7eyNruUg5yAW XxMOL6QIWrxFIzJ7SabX5o BmEfFRRuFPGiC5WidZOfXCzyU50 6MFqvBkB1RBCeafCdN9DrKBXpuX oqTrE7h3F0Bm9JMy33AB68 EI77aVGhw2S1sHX8A3JkXQWpdnp zhrjrqGF3APDhXZPpjD69Kl5qxA iiSt0wPNUxHTK3WNBypQJt S1ZurB5lObWgUJBhNXKjD5DexTZ sPTijW682NPsbIvU6OMGzgxMvU7 VtRIHnxNgeGpQ4q4S3Ry4A SVknpen7R0PfUejnrXG+ZJ61HOS eIR19mSTnnPWge2ynlHv5VdWnDW VxBEK0eOzlZWmsv4NkJXQs Y29 (more content not included)... [facility] Coding Summary HTMLBase 64 GxqmlioaXWp2sWb+PGhlYWQ+PE1 NARLsX17pqHWxqM3vV5FRQTbYZi sqVYFASHvOKnEsrcLkOW3yeRJcD XJu IC8+UO6rIMKuUehucUAmk2B8fUS 3E52wui5hCOvmqYI8CQLvHtHwui uij4movCo8GAdqMwcoCsSh NXRqlM44YUM5fU36Ui39kDDcwRV cv5hjcSn4YvCuWGRyGOD4hUkqJO qii5RhIXGwF58laPGtp7R8 SHGhvMafyGWtDzJejUI6mL3pWPh wukrhb1bglxfwWwm4ua23pSHnd7 G6oRO9W2HqubK9EZSqrQZr ZnsjaCGStA7yzsbnd1krspvuEyL rNLXgHQj0FHb2HBZapNniHvTqPD 45EMR2WHBfwxJbN6QeXQIq vOyxWtL5u4N3Vd2VU2CYEllhA5W NTUFSWTwvdGQ+VO61gt85O8OxXu hfWyy5UYKaHXU0jIP9qT8c EQElVUaoh7P7cMU0N7OnfvHfhd3 fx7pdTJPqEIwkH95vtSRpv0C1KD PeuXO3IGLmsOxkDzBndF18 Oyc+LOUlsGshv5GsXwita7twr1r zhWw3SoxySJHmvtApiAqvVFC9r6 GbTk3eCAVjcXY9oVX8tZ8n PjQtUsD3YIgfA665MsPgwIWsMmi uG74xX7SuxKE+GTFnVoq2YOZliZ ftAF8vL2LyRFInhktklZKb xKhyUM6nYMCxgugbZFNrpP9lTDI nB8l6LtPyEbD4CUboV8ZuMKLixw guZa34gL4nXuHvEiY2RIim I4ZgajK0GRKfkZYsLTlbZQN1Y32 ma6J3XFYmXLRuUUL7pQD7zJ7rgP lnbjogbGVmdDsgdmVydGlj LMhcRRpbT140QJOwwZtaQbXfTMf uZyBEYXRlOiAgMDQvMjkvMjAyND wvdGQ+MEWzNVN8vIuhHEYk rVFlUHhzTg0dzAvksSzmEI9jSLF xwqvsMMWfbU4yXFRlkHQheYurBH 2xDIYzdueyb221CzLcMQF6 BFKhnNMwA7NqzE9aPdZcLDErHYM aZ3FjzFCgZDktD812XTzsQoN2QH KgefPmI3MwYXSufFzjKuN7 c3I4Cf1Ra6UeqradL7CyeYKfPtB uHlxkWGt5F6RnWnkorCM+PC90YW JcSM49KDf8BTV2iSrzXMcm PPNhT5TxcT6tGiXaMWKeBMNlLeb +PHRhYmxlIHdpZHRoPScxMDAlJy DimTuiTB6hCi0wAORvBCFf qAhvqODeSrXjr0olNXTyKRhmID3 eyWqwZ9TexMR6ZUTpc5e7Py19Z3 3gI3UqxHD+VZNtwXH5tVS1 sA7oJxItDxT2XVidV614TwVwcZH xQlqex4kdu0jkgBw4ZwD3ZIAlwy ArzCpmZYA8w1EwOc06N20v IHdpZHRoPSIxNSUiIHZhbGlnbj0 mzX3aWy5+GNYiyHJ2hPR7rJ1tHa TiKzZ0KWgvE683TpUpvPOc Wlemx6khy4tduIk0NhBfNFVvzhG xwMewKOH3s0SpXj85Q4QzyDyiq6 FwXdz8qz48eGEtj4F3dMO1 P5DgLSMgwmkyzGEbrVecXW7bXMU twodqEAGciY9lJZDxU7s3GhXbQd O6CRbsO2WpmgQ2CYLqsBMw JPHjsDMKjY0bobxco5wpbocpBxJ qHKYqDTj5YGe1OKMuxEdhNyEuZK U4QrA5BCY7mMTaqE2kqCos sadyrF6dLrx+TXH0hXUlsGLYIW7 lOjwvdGQ+WQYgULA9vYncKTbjNB WeaR5uCJHpC7r7AbFuKdJ8 YAjwD7DwrnU9YPLvqYJlNEEbcFU LyH7pwezxv5ckwpqhBbAyNWTiND o6HLd0DCQunXjzHpQhTSQ9 PfQ0GCO2mKNlrZ1ewLrosabbmH3 wOyc+KqfsxNxdOHT2BBg6E6IyIq x2NQWlzXrzBU9amWKbHIda Ga3wdZeihCvbWV0cTLTnljrtr83 7UuXxn3hsHMOlcGEsEOptXWT9I9 0ly1G1YQFlBRDgTXS2rYH3 jN5qqMadxttnfYNjtLkocsFasTu aYAacUZoyE779TYMcsSbxLdBbPA x6F7RgAuf9HPKevDprKB9v kUPeLDrjLb4esXevqMtfEW1gYPE fjmpac126LcZhm3zjGJGluIUyLT nqVTP2N15yh3C7GZQwJMLy KRG6mJU7oW7iyNqcmeeymFTaxBn jfpWacDzpMNouBBooM034DDUviF tyQjUfyZs4R2FnZeq3ASUx dZwnCY0naVBgMGluCz1kmPhyaEj zBV9bDGEfcnunc463FfOcx9toTH TkgFFiPUyfKJH3D13tg0G4 IGEhOBWrCMR2pLA6pQ4zeRxbisy gbGVmdDsgdmVydGljYWwtYWxpZ2 46IHRvcDsnPlBhdGllbnQg JLpyFXt4Q9MpXsdizXC+BM91BNK gBR72tOFbsWAsy5apmLf8LiNiIE HxUYR8cEjeKVahl3MtXVUg C79bsBOpa0L1BGGyoCdvwHHjKxM rxFO5yP2fTCjjaukyt3qehmjmHk vnb2vute02vN01F93hXXer QPIeHCPtSZCwHDEjkRtvdh4awW3 wIi8+IIPnmXA9sWM7dZ6oHMGpXy P9NHalS229VlUzlWRnFgnd k4aof5iujHh3FvZ1HYNlzqEnfAc rGXB8o6AqAs71N22aGKbdOOWtQP CxTQAiRRIpgNdwpn2jwQ0l Ii8+GEYysPE6aTS2zF5bNoYbEsM 4ZXhaL473RgXkcFSpQxmtC06mD1 JvdXA+UJBxBjz7XRLtuOvm KE4blFJiOGoqUf2kPGT0DvRwRoD eDUxbY6VsFJGvrsnqhawzaVM1CU ZyXPExiM74Mu4ibPloGUTq pFUKnE2dwnykj9eqxnrcBtCoBRK xKCb3AMh9DASbfQadUgUaGJO3Ry L8QWY6sHUjtE8wcWewtnqc fH2hU5XuLUXqjlbxPu36bF4gElA nImP0ELnrIkq+GvBVLcmzP8JWYU tTNhCLKJL7N5FyEks0QHSg eMhePG6dtJYjWCtzPj7fxLffeKw qTK0jAOUyodmkUIKvhV4wRSUsjG ZjkVscSA4bYZEeajrvl918 BpZoOFL8ALXhdURjS3PloK3tAlX wRZCjKARcD9VzqALaJXvlL510UM rhAjY0TXUmjqXnY8UrEUHx nSnwPoF8c6N0Zc1wIY2dBc3nMYy 9CY17QP24aIHvh4G3mWC0U8EoVA DecoimbcfsuKZ3WYLnKMZp kA58eAFpVHypYr2iq5V8f720BFG vUITzfZ89Oe8inEioYDFgeHSUpR 7auuaos0wsuhbgCpVkIZUn IBy9BUy9ZYCatEdjDcGbIOV5EsH 6XEM7vNDduK5qkAbdjmqofB6lJj c+RjMyKGTtfnB2X7NvNpd8 OERlfNfdTK1kuIPqLPyfOt6zeCq ulUyxXM3pXQFbkxsdDGKonC4tRY GgvPKmhVsePD4aVHPklydm v044ZtEpROX2NXNlpXDmV9PobF6 fMvWaXXZaDBMaO3SijXRmFWurL9 76SDlxNhQ3VKEhsaSrX6Rc SWOxxCfdVoN9q4J1Ab2ZEA8JDRM 8W2KmWjx4ZNCrpQwaQH3kaILcSL dkTe9mdTpxxHbcZE5nFSUy xnciAZYmdJ1lKBWdyOZetSsxPF5 fQCOmexkfd207MjGxKTM0VTQceI NgH4DrnR7qSuApVKTjUFZg I9QuwACuTNluT570RQstYyM0WST houXzH1UhFGDpvCwrKrK4z3G6Cq 5PUDwvdGQ+MV23iu29X8Rk WskqZrr9GSOvMYC5bPB2pV1vLAZ dGYpdv5M6aKV4Y8FcsnPsvv2pr0 fyYCLwVXmlE86epHZiy9F9 XGJzgSP9QTCdkOpvEnCbuJ94Oqd +BAXdaRusm7WdWolzd4xxy0iqmC o8OeVvIOQkqzWltRysCBN0 e8ApGj97B47pUWgnNNPjZKFiOIL kPDGlkCoydb4pxC1tFg5+PGNvbC Z6qXO8uG3pWbOxTvB4GRym M617IlKzfZIfAujfw3czv3gvxPk 7WcUhVLUyciIqcWwqIFQ7c4MyRg 43B1FonFbrn1XgFvp7ck35 cNNud3T2tKT6F4QyVBHgcvkqqRE ugBszYA0fWAJfmgtiAFQcpN3vWL DgX3j7NmKpGjZ3IRtsR0El esE3IBMwhIMtSAKjjWKYpU4zzqo aw0ckogdcYfJhQUVrYDm1SXy3GE DeuXxiSyVtHYW0GbX0MWL5 iZAdhB1cbQabfkxudF4mWdi+UGh 0n4prcAMyHM9icIH7VW39XV09rI Khu7H8iZN7C8QhIZRlxulu hnxreOD5MCOjPPLybC44Nz7xpTs zWt0fSUVaQLY0CCTfaYGiA7FxoP 1fUgOtYQHrPHSoC3GwuZAm EUjjA119JBnrTbP1IFKmnxFyC3D nETDtvDsuHpY3a1O3Vc5WPE64PE 19LT50nEOsn0E0tCL9H9Du UQJxnkektkxmnFI0MCWaAMCwaH8 5Ui4anUsqCp1xCZSlLEP6PJWloZ GnU0AihS9tPaIlITKdJVMf F3JynCMpQUjjB191XMhcPuD2DZO mzxLdA2ZoLZOcwKsdKrC9q8Y2Bp 2PNm05ZE47PS50bLBaq3G1 nMI0N6CkUPSdcdstjkryyMH6VXP pVKYowK32Fy2flYymYx0iWOYcWS H7TMVueQWaD3NpyY8qLiAo MRMpRDCrO0HgwKQaSApaN647RTz yMnV3SDGwstNsV4UnUMYbzBhuKp P8n9V3Nc7GQTfplpw3M8Hx PjwvdHI+OI07WBArWA32qSCovFK uz1nohZm6FzJtNSJsRWJ6gCzuTH lph4RyPHUgJ49kwCOsp4M4 IGN (more content not included)... [facility] Consent Formson 01-15-2024 Consent Forms [id number]#1.00[facility] Consent Formson 01-12-2024 Consent Forms [id number]#1.00[facility] Controlled Substances Agreem entson 01-12-2024 Controlled Substances Agreements [id number]#1.00[facility] Inpatient Patient Summaryon 01-12-2024 Inpatient Patient Summary [id number] [place] [address] Patient Discharge Instructions Name: LUCILA JACQUES : 1990 Patient Address: [address] [place] [address] Primary Care Provider: Name: Provider, Loni Phone: After you are discharged if you find you have any questions, please, call [phone] ext [phone] to speak to a nurse. Discharge Diagnosis: Prescription Information: If you have been given a prescription for narcotics, seek immediate medical attention if you have any difficulty breathing or any sudden status changes such as confusion and sleepiness. If you or anyone you know is experiencing suicidal thoughts, mental health, alcohol and/or drug addiction problems; contact the [facility] 17/04 Crisis Hotline -Text 4HOKH qv 967011. If you received any narcotics, sedation, or [...] business decisions or sign any legal documents [facility] would like to thank you for [...] for Disease Control and Prevention [facility] Intraoperative Record [facility] Intra-Op Record Summary Primary Physician: ALEC PATEL MD Finalized Date/Time: 01/12/24 11:47:08 Pt. Name: LUCILA JACQUES /Sex: 1990 FEMALE Med Rec #: [id number] Physician: ALEC PATEL MD Financial #: [id number] Pt. Type: D Room/Bed: / Admit/Disch: 01/12/24 [...] Sara L RT (R) ARRT Role Performed Distribution A Class Lineman Distribution A Class Lineman Radiologic Technology Instructor Time In 01/12/24 11:40:00 01/12/24 11:40:00 01/12/24 11:40:00 Time Out 01/12/24 11:46:00 01/12/24 11:46:00 01/12/24 11:46:00 Procedure Block Nerve(Left) Block Nerve(Left) Block Nerve(Left) Last Modified By: Reba Liang RN, Kelly RN Weisenburger, Kelly RN 01/12/24 11:46:22 01/12/24 11:46:22 01/12/24 11:46:22 Entry 4 Entry 5 Entry 6 Case Attendee Mason Garner RT (R) Dina Malcolm THOMAS F MD ARRT HORTICULTURAL FARM MANAGER Role Performed Radiologic Technology Instructor Scrub Personnel Surgeon - Primary Time In [...] ARRTPatsy James RT (R) ARRT, Dina Malcolm HORTICULTURAL FARM MANAGER, ALEC PATEL MD Last Modified By: Reba [...] (more content not included)... [facility] 0 01-12-2024 [facility] Preoperative Record [facility] Pre-Op Record Summary Primary Physician: ALEC PATEL MD Finalized Date/Time: 01/12/24 11:49:22 Pt. Name: LUCILA JACQUES /Sex: 1990 FEMALE Med Rec #: [id number] Physician: ALEC PATEL MD Financial #: [id number] Pt. Type: D Room/Bed: / Admit/Disch: 01/12/24 [...] Signed By: Sushila Quintero RN 01/12/24 11:49 [facility] Patient Handouton 01-12-2024 Patient Handout [facility] Test Urine 1on U Preg Negative [facility] Comment on above: Performed By: #### 3 [id number] ####[facility] (DEFAULT)[address] [place] [address] U Preg Internal Control Pass [facility] Comment on above: Performed By: #### 3 [id number] ####[facility] (DEFAULT)[address] [place] [address] Progress Note - Provideron 0 01-12-2024 Progress Note - Provider [id number] [facility] Coding Summaryon 01-10-2024 Coding Summary HTMLBase 64 HkkoxrnoGBc7uZy+PGhlYWQ+PE1 YBNNdJ86akZHspT2eT1IOSTxMBo tiCEBOCHzJSsOrchPtPY2rsCGzI XJu IC8+EI9mKSOvQfoqcSSxm6G1mKG 6U31tho2mZLfhfAX8UWTiYxIrow bqn8arsMk0JXflQnslMsOw PQWzhI20FIU7fY80Sq83aUUrmWU yg3yjhEi9GnBwRVBjCZD8jFieCM nzm1LwMORxV53fqTCkw4Q3 MOJreVhmqTKwYpRwfCA1vM7kBWc dqpjzw3fzcknvTbk9ab52gBSko2 T5eKS5K5PsvjT4CAJwiSBv EmyowTUNmO0nkgwqn4bgzfasShQ rUEMsDHo0GMy2AWKehCccMmPsCQ 41KRL2PRXgbfEfG2QcWIRz wHvsGqK1f4A4Oh0DF6WIHtirD5A NTUFSWTwvdGQ+UF29yp04I2DpMv hoEsd6QOTkWYM7zHB5nS3v ZQTcUZnow3Z5cWH3J6DhuzTbkc6 rh4auMTRgSLrpI40ckATbq2B8OA OmeJC1QEAceMfhJaPdnX81 Oyc+XATdcXwtc4MiRaonp6pqw3e mlWj8BplwPVCucsZooNqzAET7a5 ByVk2rCBTfmOM4zQU9qU8l KfEdWwW9UVseI160VvBxdYGcHyf uG37eE8JilRM+UUXlSao3RZUwkD krCQ1mQ0ZlHVRvjkrwbDBf oVxsFX2uBUBrdmtuBTTysR9qJNP gG8k4YrKoUeY2NSwxH3DjZAUvno exQz35zE0sUtApZiM2FQnb K9EfgiX9EVMjfMFcURxkGNU8J26 mb9I5VDXsCEYfHBW8nUU6lN8ceW lnbjogbGVmdDsgdmVydGlj UBxiEUkfU382SGQxgTdoRrCxFRb uZyBEYXRlOiAgMDQvMTcvMjAyND wvdGQ+TVJeHFW9pEujGATt rXToHWyhCq0bhZnqnGdxZJ7iKAD ypaokYBNmeA3aDQEsuZWeaFdoEZ 6oJLLjdtfgv997PbOnHLJ7 ULFwxTRbK1XmlV9rLcTvDZErJFF wS6BmeVClTYnqC810SMznSwI2CZ TkhiHbO9IaPNParQytKvL7 p9C9Tm1Gg4MqniihG3EzjTUfEwS aZqhmBOo9O9UfLdqkuIM+PC90YW AzXV94IUe4KFQ3mIsvGZca AUWpP0PqkS3vBiIyIQDmHFRuQcz +PHRhYmxlIHdpZHRoPScxMDAlJy OkyCegPR6zPp1uXRYpGQBe fZhvhGEuHxVli9dzFGAcRZqcCB1 biRyaI6XtvBA5DWHmr8t4Wg47W6 8iM4IjfAE+BARlcDL6uOU7 aY3xKfYcVdX1NYaxQ034AoFiaGL gIjwfp1upd9mxpBy2AqD4LQYjrd QfuXnxKXQ4u8LnPu53L56e IHdpZHRoPSIxNSUiIHZhbGlnbj0 arJ5hAk9+EUTjrWM0dLE3hI2iSz IqMrM9SFxgT432ZpVhuKMp Hathu4xea9mrcEe5XoQqGCUdrmO qvFijHKK7c6YqCj10Y3BpoLewb9 XwYcb1gn74cUKzr3D5zYS8 K4QaKGLdmzhegRRfkAyzKG6tXPZ llfnzHVWahS3xREFbI5h1IoZiXq R9RImpP5WqizM1WQJqaZWw TDNddJKDyM4dxekyc8fitcirEiY kWVBmWTn9NZz3BPPmcMqtPdRsUO M2IiX8CTC0dQBcwJ7nmNza qlqowQ4sYuu+AMZ9mQSlxWNCDP0 lOjwvdGQ+MNMmMTE4cIuyUDpiAL LqoP6tPTXbS5g8SpDjGmC0 YYmdE5EajeT1WKBdbQJsKLXfvSF VwQ5toxnfn5jkjnkhIiMxTXNhSK o7BUe3JJYthPmcNzIiGNZ3 IwL8QWG4aRReoW4rxCfrgsipdI7 wOyc+RktkqHajCFB0DAg8F1RfZl w6WFWliLdvTH9ncVKgSAzv Vs0aaHpmwFssTR7hUKDcattya11 3KuKod8bkJUQnyUGwDQcxPXA5M3 3uf6I8HGQeIJEmDLC4bYI6 cO1leUhqvrcpxFEzjPhqqkRbxYk tYCfgSLjrP980NBYlyHhtJxVqXW t8P2ZxVil9AJAebTeoNB5j fCEjKWhsAr8ylMwreLoaNK7zZTZ wudpmo737YqMoi3eqQGYjxRCwJQ zqIPX8I25vy1L4TJGjKKBj VOX5gDB0wO0dsCrryitgmNGgyLj lvcCqdUdyQTyiHYeuQ482LFDpaX uwTsYqwHy8E3FhKbt6PECo rIkaVP1yaMQgHVdrFo6ctPnbnMm rRZ4uTLWxhmxey103BgXbc1xvYQ IwiUAcZZdsAJM8I61ry2H6 YPOzKYXaASS1jKG2eE7avRgduxs gbGVmdDsgdmVydGljYWwtYWxpZ2 46IHRvcDsnPlBhdGllbnQg QZmkPIt0L9BvQyhnoDR+WB65KWJ sXU89tEXazXPyo5wgjFe4IeBoPF QeOTG2dTppOZaub9OmVZIv Z42coUGfg7B1PVTesRvilUPlTmJ bbET7lB1tOEcdqwxpl0xbwomyIs ajg0hsdk10wE85F88wSHzg FFZuVFLjXLIxIBUjtLlqyi2gvC8 wIi8+WTXhfJV2pEU9oB7iRVVeKt X3ORmaL601OkKcrVDqEuac i4nmp3ewdZl3RrL3QHQycqObvSo uAGF7o9WaGy53A57hXNfuNXXlZS MxLOApIZJdaZxmlx2vpL4a Ii8+SQMlhKC1iLK6rH9vYiTbUqX 9MZeuC215IwFilFLsApzpS37uG0 JvdXA+ZOZlHlp1ZCGkgKoj AD7fkUSbJLktEb4hNMW7NcHoPtR wUJfsT3EdRGLjpcxawjqcdON5VT KyPATjrF85Oj1owAfvGVEu hQJZjJ9fmhltz1hjctozXqWrRZW qKMz7DTv5LWQssWrlYmFvGWT7Yr K7HAZ7vDLljZ1jdZlukjsd eU9eD3DqLMZfihqiLp98lX6oCvM uUsG1MTblRpd+KwWMKqlhV2GHWO xGCfIPFGM2Z6VsPcq5CNBr iMjrOM0pyDPrGPspEb5fsEegsNc fBW2gILLbpajkCVJkuM3dUUAmcW ShbWrvSM3yTFEpdzbni091 SaJqVBW1PXVxvMQqT4CzoB8mWxK vXUBmTLCwI0GqlRJlPDtnF471AI vtVrV3UFWyikRkQ5NxFLRq eCeyClH3v7T3St4tZI9tQb2qOVp 5RI29XI80kILwe6K1mKX9W6OlSG ZoznwhxwxnjFK5QJVzZNLu vU96hPRzQRwaIj5zx0A3x198VDC oIEUyyE01Nh2pvWzxVHKpuBWDtU 5xymxxa0dphmhoIwHwFINh IAe6HIt4EOIiyZmzNdRoOSM9ZrE 5UHG6aJKwfJ6ssIzbbqwicE1jGv c+OnTfYHSvpuV5K8KjGfu8 PPGxeWxtEN3weNQyECnrSw2jdRi vyPluJR1rEWNtwjdaLNHjgO3kHF ZgsMTlsZpzSC7mPMNcayfk t806WsYuKNT2KUKgsVOvP7IdlI7 zEhXhYILlIXTwV4UhzNBtUIdcP1 48ZBzyVnV3OJUbhvUeM1Zu PLNbwUfsXiJ7g1T1Pn3UOB7DFYH 9F9JaSaf6NXYnyIbqJN6uwPOfOP ckOw0evLhysJdrRE4nUPOw ynutCPZulT1eIORjeAQaxGtcHB0 iDEWyvaukd408HzDzRKZ0LBSyiH UwZ4KnnW3wMxWrYZJiCYFp O4UimHPzXQbpB057ZMliVbE3RQW rcdHvP1NhWJFrdBnyRvR6i2Q2Dm 5PUDwvdGQ+JI22ev98X0Fq VvgxAax0WEXzMDM7pPU8sX1pBTT sDPbxc0Z5zGQ8K5EmlgLajt5up5 pmNKGpRHxbI92urIRkd8K1 MBGukAO7ZINnsTygHjUflJ42Ihz +TEYthPgzo2EsJayfs0nzb2xezI c9JcOoNJWqnlBewFshUSS0 r0HsHf81K90zJTxnNXTuZYLaILC wEYQoxNxgre1icH0aQh7+PGNvbC U9gBB3fO7bTeXgGcF5KYvs D390YzMxxIKpEiire7hso2bhbUw 9SjWpBPKueqPnwFmbDLF4g5FfGv 10L8LikQwxr5DtFjs6vg75 dWJjr2J8sEO0B6UvVNPkytnqoIR jxAvwPS9bTHFcfaybKDIzlR7zCV ZsT8o6AxXtGwE2OMwsG3Nr osU0VQVbcTFsGPXxfWOMrH0hpji fa6kopebxNiIuPGKiNLv1JOe3UY KgtLkdKmGlWNL7WtE1AJT0 eXWqgC0dhLutcslwqQ4iNbx+UGh 6g2ibrPCxII5vtTZ4HN90NS92mT Oyy1I3nIG6M4NiMOGtinij lwstyPN7DRUhFTUmrE65Hy6qrQo uFy5jHCOkRCB4PUNztYLiH7MqbQ 1tKmSxEJSfKLDkX9EzkGIu FHmpU153REcxEuF8ZRHrqgEiH9N hSGUuhOjdFeS2z9E0Ed7ZQY20TB 27YI86iQEnm0W3fZB0E6Lv JLKwefjtasnmaXE9PWCvVMQfnN7 3Eu7teZodFv3hNNSvXNP4URJfuT GhE1RpwS9lYwLeVHPaZYTp F3KihQFlCWqxD118ZMmaGjG0AYF qdeBfF3LvJWSltAbrYkC7k1S6Bm 6UOp83UK01JI17yAEfg0O0 yZF6W6LsLBKakwhzhwglzJB3NYA mITImhD58Sn8oaEflRw8zHDOcWE K0OJFokMNyY5KozE3cTiXf LDIpMVSwZ7EewJZuGWvmP897GNv hRbM0NVZjmcXlO6BkTBVqeRnyAo V0r3U3Jw2TFAzihyt2H2Ec PjwvdHI+UX14AOYjSG74hWAewEO xj4namQc1FfMuSQQnAEQ4oKmlXN ctd9WnRHOyL27gdNHxb6S8 IGN (more content not included)... [facility] Coding Summaryon 01-09-2024 Coding Summary HTMLBase 64 PanbdbvqOEe4kVq+PGhlYWQ+PE1 RAQEuK52kwZHegT4hB7YGXGlZFq dqJNOGDBnGEoSlgsSjFT7peLEbO XJu IC8+NT6yRRFeMvdniGJsc5X6rWF 5W66bgz1qIYomdKE1OUYrRgEbxx rfv9rygEa5CYlwDoobTvEx NSKmiA58PWA7pH89Ve21nARwtYK ug6gwgIs5OrTtYBWkXEU2lJzuSF izf6YzKTPhA86bnIBka6D9 FFMyiBgnbVPwHkBrcCP4wD2fIQg ujxsdg9gmxuyjXyi9qb77zHZcq9 Y1hMH0J3HecgA1HPTjlCOb EnunmCRUlW9dvqcqw6ayrewlPpF sBGBeODi2CIa4DCMnmYcsHrFqZL 18MWR6RZLycnNpW4OzBGRb pZqhHpK0g8Y2Dp7HR8QEKvwqF4R NTUFSWTwvdGQ+PT51cu56O9BvVh hoVxo4FKQlDWH6qLR7fG8x RJLlKNswx9O9vBB9O8InvfRjpw4 ut0ofENRpNRreR53erCOnv7F6PN MgeWJ4EUMlaUwyWxBftT15 Oyc+KACtwGnqg7UmEgsmk9yxv4r nfUd4NnolYVNookYeaPwjZFN2i6 GsAn2bXHAodPL2gWV4uE0o ZqKuHiZ7SJtqD395NfHrlHWnRfk mP13iD6CdgRW+ELNkZsh3KWYhzL jcRA6jF3ZzEPXiprttyUFd wWekOM6wSTQbzzzsDAKziM9fXPJ kD9y4LhJzTyQ1NAmcI4RpSDXxcj mqKd10jC3rGsJlGdL1ICwv S6MesnX2JVDgdJWkYIccVCE2B58 ex1B0WJDiPWRtERH2uYN9aL7rvW lnbjogbGVmdDsgdmVydGlj FPonZNowC666IECyoPohOmYhBZo uZyBEYXRlOiAgMDQvMTYvMjAyND wvdGQ+ZTDaXCB5wIokAKUw cKEvGXgcUx8phPcsjUfsXK6hYRP mcqieDSWlxD3sFNJpaWNbfHvbTB 5nWWFlftjle663IsCcNTT5 CMWncCCxB9RgtI3eQqAeHNFjQMJ iI5PxiLJnRRosR283HCqjJoN4JH RtsmAnB1AzYVUtgPegCsB1 n4K4Aq2Gg7SlfxdzY9CvmVAmHiK pHwrhAIu5G4IrFykjgTD+PC90YW FdBD83KWj1JLX0eAfbPZtm QCWfV6XcbX0vLsXpIZChPVIsTci +PHRhYmxlIHdpZHRoPScxMDAlJy WlkFisQX8xCy5xUHIcFJGs aKlalYAsXeVyy1xeUWLvAXppGG7 duQyvM9MdrBP0EWWht7d2Sa13T4 9qR2FocDP+MOMleRU0oHF3 yC6iSlQkKmE3GWpvB531JaCznOE rRqjzk2esk2nnyRv6FgY5LQFfql YprCudQOW0c0TiXf69D56r IHdpZHRoPSIxNSUiIHZhbGlnbj0 ytL2gWq3+MBKdfRL2xWM9cF3zNo EzWqM5YBvhP424GjHmkQBr Yguth3xun4pewQe5SxTzUPGtcxG omZcwDFE6w2OqPm52H3JfcWuif3 QbNzh0vj63lBFpp9N6pOY4 V8JlRSOrnjvqeXIgdIdrQT1wAAE vtbufJFGezY8nWRWeZ0c0BgGkHi M8YIknV3LboyE9ZZRgyEQr HQFgpGPRlC8brlycx9xqeywjUgD lQRUjMJn0RLr7ROYseYgsRyQoJZ R7JbD8VUT8hTXzvH4mgSsp nmngmX3jGlx+RXX1nOJhnZCZGF1 lOjwvdGQ+YEFfCSV9pHesQPshJP QfuF8iLQKwX2e2YhMnPfC1 PUjnX4GxfkH7KHHxjYFtCSTorII FcZ2dnfdxb0rlbnizKiJbBDJqHS o9NYs6RUHflZieRbWuPNR3 JtD0LOO6mRUqrF8bzLfkdxqndQ3 wOyc+FasxvItiOHC9JUr2E1YkZi h5GGCpmRayOT9jbCEmGTio Jn1wnToigWwpBL8wYYMxjlnvy28 1XkIst8xvKOPdcDZuQCsyQXY5A0 5zg0P7HZWnUBNvGLY6vLV7 sH4oaIwzbtzrsQFnuBlqkdVxrFr kVDsuEKpaW551XHEwlWanAnXuYH o4B9CzUjs1YAVoyQyxVX6w oKMmNUcnZq8ueHkhnQqkCD4pNDS otkejd891GbKdk9tbONLprFZeCI bdWNA3D29qu2T0CIDmPVNh MLB7hJD2mL5lxTgvmdxviOEntUo bciEblPxbSCypNWicC226HDWzsA mzXcKkoRp2Q0WiJbq1VRUk fRkcKI8tnWTiFOcmAo3jvJabvBy qSK3nVSVoynrmn284HxUrl4xmME ZiyGNbGRuiQTA8G10rq9J3 TVCxRUJcMDF6rCA6bN5isBdbmra gbGVmdDsgdmVydGljYWwtYWxpZ2 46IHRvcDsnPlBhdGllbnQg JPioVIl0M1PdXsoyfHA+BN29HWX bUL51uDYyiARpz7xldZr6EaHuIX QwIYS3lTuqFUedg0WhEXVy M45tkMJxl5T3POMhtWtkeJAvCvC nxKW5vW6yOQpdzvvor5ypzrqlCi mgl5tawg81gQ58C38fVQzc VCSjYJKbKLMfGXNluCsjce4ozD5 wIi8+XIYxbZV2uUU9vS8zBUHlCu T2SEelE420TxSvzUVzTknh z4xjx6hweSl9BpU2HGAwhiDthKo qMRA5x6HgJj63G82hSVcxRERvLM NlHKXbFYIggZndgn7qcH6d Ii8+NITuaVM3yLY3eP0oUhKqGdR 0EXlmQ553JcBbsRNyJdqfM15jM8 JvdXA+WEMtDfx9ZIPwfVnp LF9cxLEmZKfmDj6oEMQ6KxRiHuP vQNyvL3YzLCTwabdqpbdpoKE0IJ YkQOKobS47Ot8ycLwrOXKn lQNNpV6gzhxri0rottbsHuArVKH bODy6RRq7ILAvdMvkVkNoXBJ6Qp S4YYB9cKNcoE4ctJqbossv jK4uY5QsMRQodgooCm99xF5cYuC dDdL3ZKloAke+WeHZSulmY0FGEJ pHCyRNGEX7X3LmYdn8VGVr nMxgWK9bhKFtMUcvGf7uaInnsTq kPT6lVJEowjxxLMClrU4xTHIrjJ JzoOvoFY1vMSQddvxow038 TqQtCRD8AKTfxMMyT1QxxQ2tSjO iGINxHGGuO8YxjMQsAPyqV204LG crOxN8LYAfxiIcU9JaXTDv oBxdLiK0t5H2Ee5pYB7qUk4dSOl 4HO66ZU48lIEne6X3aGT3E5YfMB ZuxcdjjektzAL6EFXrJEUo lK41kROnJExcYn6ml6Z8q677DLW bYOTqiI65Vm9wqAqwDMVkbMDKxL 3zwcerv3yovcmwZoAsVZCs SEd2ETs5WJOsuXmjOtRjWLW2VcB 3GWI7jUBtlZ4ztMkamzfawK2kLx c+DsZfNNQjdpA8D8HnPkc1 UAJvpFucKZ6vuRNgPEgoGq2ghCl coEhoQM2hXJTamsljLMTsjE3kSJ AehPUovNjzIG0xWKTkqnaz j845UuIyRLL0KXDkbTOxP2WjsV6 gMvCaQOFtSKAxC0EgaSNrDDfoK7 25OInxFnB5QOTfrvXfD1Xg MVFpiUcdSyQ1f2H6Ej8HDA6JRZD 2J7UtGec2LJAopWvvCR1dwTVfCD aiDf0wnPpzxHupZN5eWMKl zycpSVGorW7iYSXsnVKqzUgyZL0 sJHFvfodwj173SeSlWJF9RMHhsR BhA9SleH7rUiGiEASkNZUg G5BdmPYcTAarC125WGncCbQ0ODG bmvYuZ0PeHXTswDqyJhX5w7U4Zi 5PUDwvdGQ+JD62qf33G1Ub RewpTom7FEJvKUX7bVE1fS9tNYA lUZjuo0C1kOM5D5YurvFebe2ai5 imNEVlCGciD02jxYMle1O9 UXIqeRW1DEJgsUbfAfQdvR08Htu +DFTnlSxza6FnUnmpc9egv8sdkS u5RmRkJAWyvwBfmZsyHTX4 j0KjYu69L53lEBnaTUIxKAYnXPX gJGMrsWzeie5obO5eVq9+PGNvbC A7vOH9tN0sNfUeNfS9SVrw O774KtJtbRUzLblop0fol1tspTq 7WqAePWBetzApbKniUPA7u1JmTt 59Q9QvlIkwo0UsGtl1ow30 uYDue6V1sUC7E7QhBYVaqyoocRW gnHmcII8sDJVtuuamJOJwgQ7dWY TdC3c9MqQiZlZ6MFacV5Ql lkI8CMGlqOOdQGMgtIIEnW3avat td7wpdiqoOsAbDVYoKOc1SUd7KG WrnMcyQrQyUGU5GhK9EZM7 qMVmuN7miIvcaujrlC3hLfd+UGh 0g4dopWQvTB6kpDZ5QO76SI86pV Wcr5S9dQQ2I6BzYCTkgyyj xuqnnTU8MUYqSQOyrB90Zm9ieYt vQa9eEKZbSDC6TPHiyKVrV2RykU 0bSnBvFEKzZPDtO1QlnWMc OWxmJ077KMgcQoZ8XEXybaXbE6V iSTNffDidMyL1z1W4Ol9RKM80DL 89ZY29yUQap8U6gVO2W8En WEQuzwmmhasekDZ6WUDeFJWbwJ8 8Un3gcSvdAw8aPBKzLFA5SIVuwI HzD4SgnR0yRvHbWHCbIIJt V7DjaVIhHPaeY262JEmnXxT5WSA nahGqO9UlPCZueXvoUcA4a4H5Xn 9NVy97PM11QS45eGWay6H2 lHS1A1ZdSIZkfuvdcmugoWW1LHH lFFWbiW25Nx5ziNpbGy2bNPYiMP Y9BXIimXDiT5TbkS6oHdVz PKKiESNnP7DwuAEcQQczZ310EXl hKiJ5WPUgyzInP6EjEZCfdSduHn N5y0P4Cx9DLEunmwf6E7Tv PjwvdHI+VB98KMMoQN09hWPoyLA qh5znrTh0TaUyOWHjSEU1rGgtVB jce4QjDIQuU39qkKFod0S8 IGN (more content not included)... [facility] XR Hip Complete Right w/ [...] MD 01/08/24 3:46 pm Technologist: DARLEEN MALONE [facility] XR Sacrum/Coccyx Minimum 2 V [...] MD 01/08/24 3:46 pm Technologist: DARLEEN MALONE [facility] XR Spine Lumbosacral Complet e [...] MD 01/08/24 3:46 pm Technologist: DARLEEN MALONE [facility] Telemedicine 08-23-2023 Telemedicine [id number] Lior Green in 1990 F Date Provider Department [place] 08/23/[address] [place] [address] No family history on file Level of Service:85154 HI OFFICE/OUTPATIENT ESTABLISHED LOW MDM 20-29 MIN [facility] 37on 07-11-2023 37 Follow-up with famil y medicine as directed. [facility] Telemedicineon 07-11-2023 Telemedicine [id number] Lior Green in 1990 F Date Provider Department [place] 07/11/[address] [place], [place] [address]cy Medi No family history on file Level of Service:04618 HI OFFICE/OUTPATIENT ESTABLISHED [facility] 10-19 MIN Reason for Visit and Comments: Headache [52] Normal [facility] HEPATITIS B SURFACE ANTIBODY QUANTon 09-01-2022 HEPATITIS B VIRUS SURFACE AB (MIU/ML) IN SERUM 3.83 mIU/mL Normal [facility] Comment on above: Result Comment: INTE RPRETATION: NONREACTIVE<8.00 mIU/mL INDETERMINATE8.00 - 12.00 mIU/mL REACTIVE>12 mIU/mL Performed By: #### L [id number] #### [facility] [address] [place] [address] T-Spoton 10-18-2021 T-Spot. TB Test Normal [facility] Comment on above: Result Comment: [facility] [employer] [address] [place] [address] (NOTE) T-SPOT.TB Test Results --------- T-SPOT TB [...] R UBI, FANG, JAGDEEP, VZI, TSPOT #### [facility] [address] [place] [address] Video Editor: Isreal Astorga MD Measles (Rubeola) Imon 10-15 Measles (Rubeola) Im 6.05 Normal >1.09 [facility] Comment on above: Result Comment: Interpretation: IMMUNE Reference Range: <0.91 Not Immune 0.91-1.09 Equivocal >1.09 Immune Performed By: #### R UBI, FANG, JAGDEEP, VZI, TSPOT #### [address] [id number] Video Editor: Isreal Astorga MD Mumps,Immun,Abon 10-15-2021 Mumps,Immun,Ab 5.42 Normal >1.09 [facility] Comment on above: Result Comment: Interpretation: IMMUNE Reference Range: <0.91 Not Immune 0.91-1.09 Equivocal >1.09 Immune Performed By: #### R UBI, FANG, JAGDEEP, VZI, TSPOT #### [place] [id number] Video Editor: Isreal Astorga MD VZ Immunityon 10-15-2021 VZ Immunity 2.55 Normal >1.09 [facility] Comment on above: Result Comment: Interpretation: IMMUNE Reference Range: <0.91 Not Immune 0.91-1.09 Equivocal >1.09 Immune Performed By: #### R UBI, FANG, JAGDEEP, VZI, TSPOT #### [place] [id number] Video Editor: Isreal Astorga MD Rubella Ab, IgGon 10-14-2021 Rubella Ab, IgG 279.3 IU/mL Normal [facility] Comment on above: Result Comment: REFERENCE RANGE: <5.0 NON-REACTIVE (non-immune) 5.0 TO 9.9 EQUIVOCAL >=10.0 REACTIVE (immune) Performed By: #### R UBI, FANG, JAGDEEP, VZI, TSPOT #### [address] [id number] Video Editor: Isreal Astorga MD Basic Metabolic Panelon Anion gap [Moles/Vol] 11 mmol/L 9 - 17 mmol/L [place] Bun/Cre Ratio NOT REPORTED [place] Calcium [Mass/Vol] 8.7 mg/dL 8.6 - 10. 4 mg/dL [place] Chloride [Moles/Vol] 107 mmol/L 98 - 10 7 mmol/L [place] CO2 [Moles/Vol] 23 mmol/L 20 - 31 mmol/L [place] Creatinine [Mass/Vol] 0.59 mg/dL 0.5 - 0.9 mg/dL [place] GFR >60 >60 mL/min [place] GFR Non- >60 >60 mL/min [place] GFR/1.73 sq M predicted among non-blacks MDRD (S/P/Bld) [Vol rate/Area] [place] Comment on above: Average GFR for 30-3 9 years old: 107 mL/min/1.73sq m Chronic Kidney Disease: <60 mL/min/1.73sq m Kidney failure: <15 mL/min/1.73sq m eGFR calculated using average adult body mass. Additional eGFR calculator available at: http://www.[employer].ru/multiple_crcl_2012.htm GFR/1.73 sq M predicted among non-blacks MDRD (S/P/Bld) [Vol rate/Area] NOT REPORTED [place] Glucose [Mass/Vol] 91 mg/dL 70 - 99 mg/dL [place] Potassium [Moles/Vol] 4.1 mmol/L 3.7 - 5.3 mmol/L [place] Sodium [Moles/Vol] 141 mmol/L 135 - 144 mmol/L [place] Urea nitrogen [Mass/Vol] 10 mg/dL 6 - 20 mg/dL [place] CBC Auto Differentialon Basophils (Bld) [#/Vol] 0.03 10*3/uL [place] Basophils/100 WBC (Bld) 1 % 0 - 2 % [place] Differential Type NOT REPORTED [place] Eosinophils (Bld) [#/Vol] 0.15 10*3/uL [place] Eosinophils/100 WBC (Bld) 3 % 1 - 4 % [place] Erythrocyte distribution width (RBC) [Ratio] 12.4 % 11.8 - 14.4 % [place] Hematocrit (Bld) [Volume fraction] 41.3 % 36.3 - 47.1 % [place] Hemoglobin (Bld) [Mass/Vol] 13.3 g/dL 11.9 - 15.1 g/dL [place] Immature granulocytes (Bld) [#/Vol] 10*3/uL [place] Immature granulocytes (Bld) [#/Vol] 0 % 0 [place] Lymphocytes (Bld) [#/Vol] 1.91 10*3/uL [place] Lymphocytes/100 WBC (Bld) 39 % 24 - 43 % [place] MCH (RBC) [Entitic mass] 29.7 pg 25.2 - 33.5 pg [place] MCHC (RBC) [Mass/Vol] 32.2 g/dL 28.4 - 34.8 g/dL [place] MCV (RBC) [Entitic vol] 92.2 fL 82.6 - 102.9 fL [place] Monocytes (Bld) [#/Vol] 0.46 10*3/uL [place] Monocytes/100 WBC (Bld) 10 % 3 - 12 % [place] Platelet mean volume (Bld) [Entitic vol] 10.7 fL 8.1 - 13.5 fL [place] Platelets (Bld) [#/Vol] NOT REPORTED [place] Platelets (Bld) [#/Vol] 246 10*3/uL [place] RBC (Bld) [#/Vol] 4.48 10*6/uL 3.95 - 5.11 m/uL [place] RBC morphology finding Nom (Bld) NOT REPORTED [place] Segmented neutrophils/100 WBC (Bld) 47 % 36 - 65 % [place] Segs Absolute 2.29 [place] WBC (Bld) [#/Vol] 0.0 10*3/uL 0.0 per 100 WBC [place] WBC (Bld) [#/Vol] 4.9 10*3/uL [place] WBC Morphology NOT REPORTED [place] Iron And TIBCon 05-31-2019 Iron [Mass/Vol] 92 ug/dL 37 - 145 ug/dL [place] Iron Saturation 38 % 20 - 55 % [place] TIBC 243 ug/dL Low 250 - 450 ug/dL [place] UIBC 151 ug/dL 112 - 347 ug/dL [place] Otheron 05-31-2019 Interpretation and review of laboratory results Abnormal [place] Vitamin D 25 Hydroxyon 05-31 Vit D, 25-Hydroxy 20.9 ng/mL Low 30 - 100 ng/mL [place] Comment on above: Reference Range: Vitamin D status Range Deficiency <20 ng/mL Mild Deficiency 20-30 ng/mL Sufficiency 30-100 ng/mL Toxicity >100 ng/mL Vital Signs Date Time Vital Sign Value Performing Clinician Facility 11-21-2024 11:58-0500 Body mass index (BMI) [Ratio] 40.32 kg/m2 [facility] Work Phone: [facility] 11-21-2024 11:58-0500 Body weight 113.31 kg [facility] Work Phone: [facility] 11-21-2024 11:58-0500 Diastolic blood pressure 70 mm[Hg] [facility] Work Phone: [facility] 11-21-2024 11:58-0500 Systolic blood pressure 110 mm[Hg] [facility] Work Phone: [facility] 11-07-2024 13:51-0500 Body mass index (BMI) [Ratio] 40.03 kg/m2 [facility] Work Phone: [facility] 11-07-2024 13:51-0500 Body weight 112.49 kg Catrachito Attila DO Work Phone: [facility] 11-07-2024 13:51-0500 Diastolic blood pressure 72 mm[Hg] Catrachito Attila DO Work Phone: [facility] 11-07-2024 13:51-0500 Systolic blood pressure 120 mm[Hg] Catrachito Attila DO Work Phone: [facility] 10-01-2024 10:38-0500 Body mass index (BMI) [Ratio] 39.19 kg/m2 Catrach[facility] Attila DO Work Phone: [facility] 10-01-2024 10:38-0500 Body weight 110.13 kg Catrachito Attila DO Work Phone: [facility] 10-01-2024 10:38-0500 Diastolic blood pressure 68 mm[Hg] Catrachito Attila DO Work Phone: [facility] 10-01-2024 10:38-0500 Systolic blood pressure 108 mm[Hg] Catrachito Attila DO Work Phone: [facility] 09-04-2024 10:33-0500 Body mass index (BMI) [Ratio] 37.92 kg/m2 Christen Reid MD Work Phone: [facility] 09-04-2024 10:33-0500 Body weight 109.86 kg Christen Reid MD Work Phone: [facility] 09-04-2024 10:33-0500 Diastolic blood pressure 69 mm[Hg] Christen Reid MD Work Phone: [facility] 09-04-2024 10:33-0500 Heart rate 84 /min Christen Reid MD Work Phone: [facility] 09-04-2024 10:33-0500 Systolic blood pressure 105 mm[Hg] Christen Reid MD Work Phone: [facility] 08-12-2024 14:16-0500 Body mass index (BMI) [Ratio] 38.58 kg/m2 Genevieve Donovan PA Work Phone: [facility] 08-12-2024 14:16-0500 Body weight 108.41 kg Genevieve Donovan PA Work Phone: [facility] 08-12-2024 14:16-0500 Diastolic blood pressure 72 mm[Hg] Genevieve Donovan PA Work Phone: [facility] 08-12-2024 14:16-0500 Systolic blood pressure 120 mm[Hg] Genevieve Donovan PA Work Phone: [facility] 07-16-2024 11:31-0400 Body mass index (BMI) [Ratio] 38.54 kg/m2 Catrachito Attila DO Work Phone: [facility] 07-16-2024 11:31-0400 Body weight 108.32 kg Catrach[facility] Attila DO Work Phone: [facility] 07-16-2024 11:31-0400 Diastolic blood pressure 64 mm[Hg] Catrachito Attila DO Work Phone: [facility] 07-16-2024 11:31-0400 Systolic blood pressure 110 mm[Hg] [facility]rach[facility] Attila DO Work Phone: [facility] 07-05-2024 11:45-0400 Body height 170.2 cm Mishel Segovia MD Work Phone: [facility] 07-05-2024 11:45-0400 Body mass index (BMI) [Ratio] 36.83 kg/m2 Mishel Segovia MD Work Phone: [facility] 07-05-2024 11:45-0400 Body weight 106.69 kg Mishel Segovia MD Work Phone: [facility] 07-05-2024 11:45-0400 Diastolic blood pressure 69 mm[Hg] Mishel Segovia MD Work Phone: [facility] 07-05-2024 11:45-0400 Heart rate 86 /min Mishel Segovia MD Work Phone: [facility] 07-05-2024 11:45-0400 Systolic blood pressure 128 mm[Hg] Mishel Segovia MD Work Phone: [facility] 06-17-2024 11:46-0400 Body mass index (BMI) [Ratio] 37.9 kg/m2 Catrachito Attila DO Work Phone: [facility] 06-17-2024 11:46-0400 Body weight 106.5 kg [facility] Attila DO Work Phone: [facility] 06-17-2024 11:46-0400 Diastolic blood pressure 78 mm[Hg] Catrachito Attila DO Work Phone: [facility] 06-17-2024 11:46-0400 Systolic blood pressure 116 mm[Hg] Catrachito Attila DO Work Phone: [facility] 05-31-2024 11:30-0400 Body mass index (BMI) [Ratio] 36.74 kg/m2 eLxi Robertson MD Work Phone: [facility] 05-31-2024 11:30-0400 Body weight 106.41 kg Lexi Robertson MD Work Phone: [facility] 05-23-2024 15:41-0400 Body mass index (BMI) [Ratio] 41.48 kg/m2 Sandrita Bowers CNM Work Phone: [facility] 05-23-2024 15:41-0400 Body weight 116.57 kg Sandrita Bowers CNM Work Phone: [facility] 04-29-2024 13:25-0400 Diastolic blood pressure 82 mm[Hg] [facility] 04-29-2024 13:25-0400 Heart rate 80 /min [facility] 04-29-2024 13:25-0400 Respiratory rate 16 /min [facility] 04-29-2024 13:25-0400 SaO2% (BldA) [Mass fraction] 99 % [facility] 04-29-2024 13:25-0400 Systolic blood pressure 145 mm[Hg] [facility] 04-29-2024 10:53-0400 Body temperature 97.4 [degF] [facility] 04-29-2024 10:28-0400 Inhaled oxygen flow rate 2 L/min [facility] 04-29-2024 06:46-0400 Body height 170.18 cm [facility] 04-29-2024 06:46-0400 Body mass index (BMI) [Ratio] 37.6 kg/m2 [facility] 04-29-2024 06:46-0400 Body weight 109 kg [facility] 04-19-2024 09:11-0400 Body height 172.72 cm [facility] 04-19-2024 09:11-0400 Body mass index (BMI) [Ratio] 35.9 kg/m2 [facility] 04-19-2024 09:11-0400 Body weight 107 kg [facility] 02-15-2024 11:55-0400 Body height 172.72 cm [facility] 02-15-2024 11:55-0400 Body mass index (BMI) [Ratio] 36.1 kg/m2 [facility] 02-15-2024 11:55-0400 Body weight 107.95 kg [facility] Encounters Encounter Date Encounter Type Care Provider Facility Start: 12-02-2024 End: 12-02-2024 Clinisync Result Encounter Catrachito Aiken DO Work Phone: [facility] External Department Unsolicited Start: 12-02-2024 End: 12-02-2024 Clinisync Result Encounter Catrachito Aiken DO Work Phone: [facility] External Department Unsolicited Start: 11-28-2024 End: 11-28-2024 ambulatory [facility] Start: 11-27-2024 End: 11-27-2024 Chart abstracting Scanning Provider External [facility] Start: 11-25-2024 End: 11-25-2024 Clinisync Result Encounter [...] trimester Start: 11-06-2024 ambulatory None Provider Facility: [facility] [facility] Start: 10-25-2024 End: 10-25-2024 Clinisync Result Encounter Catrachito Attila DO Work Phone: [facility] External [facility] Unsolicited Start: 10-25-2024 End: 10-25-2024 Clinisync Result Encounter Catrachito Attila DO Work Phone: [facility] External Department Unsolicited Start: 10-15-2024 End: 10-15-2024 ambulatory CATRACHITO AIKEN [facility] Start: 10-01-2024 End: 10-01-2024 Bamboo flowsheet Catrachito Attila DO Work Phone: [facility] Start: 10-01-2024 End: 10-01-2024 Bamboo flowsheet Catrachito Attila DO Work Phone: [facility] Start: 10-01-2024 End: 10-01-2024 flow sheet Catrachito Attila DO Work Phone: [facility] Comment on above: Second trimester pre gnancy; 25 weeks gestation of ; with normal glucose tolerance test (GTT); Diabetes mellitus screening; Retained intrauterine device (IUD) during in second trimester Start: 10-01-2024 End: 10-01-2024 ambulatory CATRACHITO AIKEN Not Available Start: 09-04-2024 End: 09-04-2024 Office outpatient visit 25 minutes Lexi Robertson MD Work Phone: [facility] Comment on above: 21 weeks gestation o f (Primary Dx); Retained intrauterine device (IUD) during in second trimester; History of gastric bypass; Obesity affecting in second trimester, unspecified obesity type; with history of section, antepartum; Multigravida of advanced maternal age in second trimester Start: 09-04-2024 End: 09-04-2024 ambulatory [facility] Comment on above: 21 weeks gestation o f (Primary Dx); Retained intrauterine device (IUD) during in second trimester; History of gastric bypass; Multigravida of advanced maternal age in second trimester Start: 08-12-2024 End: 08-12-2024 Bamboo flowsheet Genevieve SOLITARIO Work Phone: [facility] Start: 08-12-2024 End: 08-14-2024 Clinisync Result Encounter Genevieve SOLITARIO Work Phone: [facility] External Department Unsolicited Start: 08-12-2024 End: [...] Start: 07-17-2024 End: 07-17-2024 ambulatory [facility] Work Phone: Start: 07-17-2024 End: 07-17-2024 Patient encounter procedure [facility] Work Phone: Start: 07-16-2024 End: 07-16-2024 [...] Second trimester Start: 07-10-2024 End: 07-10-[address] Start: 07-08-2024 End: 07-08-2024 Orders Only Not In System Ref Prov [facility] Start: 07-05-2024 End: 07-05-2024 Office outpatient visit 40 minutes Mishel Segovia MD Work Phone: [facility]- [facility] Comment on above: Retained intrauterin [...] 07-05-2024 End: 07-05-2024 ambulatory [facility]O R [facility] Comment on above: Retained intrauterin e [...] Start: 06-11-2024 End: 06-11-2024 ambulatory [facility] Work Phone: Start: 06-11-2024 End: 06-11-2024 Patient encounter procedure MD Santa Estrada II Work Phone: [facility] Work Phone: Start: 05-31-2024 End: 05-31-2024 Office consultation new/estab patient 60 min Lexi Robertson MD Work Phone: [facility] Comment on above: Retained intrauterin e device (IUD) during in first trimester (Primary Dx) Start: 05-31-2024 End: 05-31-2024 ambulatory CATRACHITO VILLATOROO [facility] Comment on above: Retained intrauterin e device (IUD) during in first trimester (Primary Dx) Start: 05-29-2024 End: 05-29-2024 Chart abstracting Lexi Robertson MD Work Phone: [facility] Start: 05-23-2024 End: 05-23-2024 ambulatory [...] Start: 05-15-2024 End: 05-15-2024 ambulatory [facility] Work Phone: Start: 05-15-2024 End: 05-15-2024 Patient encounter procedure [facility] Work Phone: Start: 04-29-2024 Non-patient / Non-visit [facility] Work Phone: Start: 04-29-2024 End: 04-29-2024 Admission to same day surgery center [facility] Start: 04-29-2024 End: 04-29-2024 ambulatory NON STAFF [facility] Work Phone: Start: 04-25-2024 End: 04-25-2024 ambulatory SANDRITA BOWERS Not Available Start: 04-19-2024 End: 04-19-2024 ambulatory [facility] Work Phone: Start: 04-19-2024 End: 04-19-2024 Patient encounter procedure [facility] Work Phone: Start: 04-19-2024 End: 04-19-2024 Discharged Recurring MD Santa Estrada II Work Phone: [facility] [place] Start: 04-19-2024 [facility] [place] Start: 04-19-2024 End: 04-19-2024 ambulatory NON [facility]FF [facility] Work Phone: Start: 04-19-2024 End: 04-19-2024 Patient encounter procedure [facility] Work Phone: Start: 04-16-2024 End: 04-16-2024 ambulatory SANDRITA BOWERS Not Available Start: 04-15-2024 End: 04-15-2024 Patient encounter procedure [facility] Work Phone: Start: 04-15-2024 End: 04-15-2024 ambulatory NON STAFF [facility] Work Phone: Start: 03-13-2024 End: 03-13-2024 ambulatory Peter Booth Facility:[facility] Start: 03-12-2024 End: 03-12-2024 Patient encounter procedure [facility] Work Phone: Start: 03-12-2024 End: 03-12-2024 ambulatory NON STAFF [facility] Work Phone: Start: 02-29-2024 End: 02-29-2024 ambulatory [facility] Start: 02-27-2024 End: 02-27-2024 ambulatory NON STAFF [facility] Work Phone: Start: 02-27-2024 End: 02-27-2024 Departed Referred [facility] Start: 02-26-2024 End: 02-27-2024 ambulatory Peter Booth Facility:[facility] Start: 02-15-2024 End: 02-15-2024 ambulatory NON STAFF [facility] Work Phone: Start: 02-15-2024 End: 02-15-2024 Patient encounter procedure [facility] Work Phone: Start: 02-01-2024 End: 02-01-2024 ambulatory VICTOR M LUJAN Not Available Start: 01-25-2024 End: 01-26-2024 ambulatory Audra Reynoso APRN-ADITI Facility:[facility] Start: 01-12-2024 End: 01-13-2024 ambulatory Alec Patel MD Facility:[facility] Start: 01-05-2024 End: 01-06-2024 ambulatory Audra Reynoso TUBE HANDLER-HOUSE DIRECTOR Facility:[facility] Start: 12-15-2023 End: 12-15-2023 ambulatory VICTOR M LUJAN Not Available Start: 08-23-2023 End: 08-23-2023 ambulatory [facility] Start: 07-11-2023 End: 07-11-2023 ambulatory [facility] Start: 09-01-2022 End: 09-01-2022 ambulatory [facility] Start: 09-01-2022 End: 09-01-2022 Encounter for antibody response examination [facility] Start: 10-14-2021 End: 10-15-2021 ambulatory [facility] Start: 10-13-2021 ambulatory [facility] Start: 04-02-2020 End: 04-02-2020 Subsequent hospital visit by physician Yesica [facility] Start: 05-31-2019 End: 05-31-2019 Subsequent hospital visit by physician Yesica [facility] Comment on above: History of bariatric [...] Surgery: [id number] Result Comment: PERF ORMED BY: [facility] [place] [address] PATHOLOGIST EDUCATION PROGRAM SPECIALIST GENO BENEDICT M.D. Start: 03-12-2024 Methicillin resistan [...] Td Vaccines (3 - Td or Tdap) [facility] Start: 04-16-2029 Screening for malign ant neoplasm of cervix [facility] Start: 04-16-2027 Screening for malign ant neoplasm of cervix Pap Smear [facility] Start: 09-04-2025 Adult BMI Screening Adult BMI Screen ing [facility] Start: 09-04-2025 Tobacco Screening Tobacco Screening [facility] Start: 09-04-2025 End: 09-04-2025 US MFM with or without consult US MFM with or without consult Imaging Routine 21 weeks gestation of Retained intrauterine device (IUD) during in second trimester History of gastric bypass Multigravida of advanced maternal age in second trimester Expected: 09/04/2025 (Approximate), Expires: 09/04/2025 [facility] Work Phone: Comment on above: Expected: 09/04/2025 (Approximate), Expires: 09/04/2025 Start: 07-05-2025 Adult BMI Screening Adult BMI Screen ing [facility] Start: 07-05-2025 Tobacco Screening Tobacco Screening [facility] Start: 07-05-2025 End: 07-05-2025 US MFM with or without consult US MFM with or without consult Imaging Routine Retained intrauterine device (IUD) during in second trimester BMI 36.0-36.9,adult Multigravida of advanced maternal age in second trimester Expected: 07/05/2025 (Approximate), Expires: 07/05/2025 [facility] Work Phone: Comment on above: Expected: 07/05/2025 (Approximate), Expires: 07/05/2025 Start: 05-31-2025 Adult BMI Screening Adult BMI Screen ing [facility] Start: 05-31-2025 End: 05-31-2025 US MFM with or without consult US MFM with or without consult Imaging Routine Retained intrauterine device (IUD) during in first trimester Expected: 05/31/2025 (Approximate), Expires: 05/31/2025 [facility] Work Phone: Comment on above: Expected: 05/31/2025 (Approximate), Expires: 05/31/2025 Start: 12-12-2024 End: 12-12-2024 Patient encounter procedure [facility] Start: 11-28-2024 End: 11-28-2024 Patient encounter procedure 11/28/2024 9:45 AM EST Appointment [facility] [address] [facility] [address] [place] [address] [facility] Start: 11-21-2024 End: 02-27-2026 US for US [...] AM EST Routine [facility] [address] [place] [phone] Catrachito Aiken DO [address] [place] [address] [facility] Start: 10-31-2024 End: 10-31-2024 Patient encounter procedure 10/31/2024 8:30 AM EST Routine [facility] [address] [place] [phone] Genevieve Donovan PA [address] [address] [facility] Start: 10-15-2024 End: 10-15-2024 Patient encounter procedure 10/15/2024 10:00 AM EST Appointment [facility] Ul[facility]ound [address] [place] [address] [facility] Start: 10-01-2024 End: 10-01-2025 CBC panel - Blood by Automated count CBC Lab Routine Diabetes mellitus screening Expected: 10/01/2024 (Approximate), Expires: 10/01/2025 [facility] Work Phone: Comment on above: Expected: 10/01/2024 (Approximate), Expires: 10/01/2025 Start: 10-01-2024 End: 10-01-2024 Patient encounter procedure 10/01/2024 9:50 AM EST Routine [facility] [address] [place] [phone] Catrachito Aiken, DO [address] [place], [place] [id number] Arrived [facility] Comment on above: Arrived Start: 09-11-2024 End: 09-11-2024 Alpha fetoprotein, maternal Alpha fetoprotein, maternal Lab Routine Need for maternal serum alpha-protein (MSAFP) screening Expected: 09/11/2024 (Approximate), Expires: 09/11/2024 [facility] Comment on above: Expected: 09/11/2024 (Approximate), Expires: 09/11/2024 Start: 09-09-2024 End: 09-09-2024 Patient encounter procedure 09/09/2024 2:00 PM EST Routine [facility] [address] [place] [phone] Catrachito Aiken, DO [address] [place] [address] [facility] Start: 09-04-2024 Adult BMI Screening Adult BMI Screen ing [facility] Start: 09-04-2024 Tobacco Screening Tobacco Screening [facility] Start: 08-20-2024 End: 08-20-2024 Patient encounter procedure [facility] Start: 08-14-2024 End: 08-14-2024 Patient encounter procedure 08/14/2024 1:30 PM EST Routine [facility] [address] [place] [address] Genevieve Donovan, ALTAF [address] [place] [address] [facility] Start: 07-16-2024 End: 07-16-2024 Patient encounter procedure 07/16/2024 11:10 AM EDT Routine [facility] [address] [place] [phone] Catrachito Aiken DO [address] [place] [address] [facility] Start: 07-05-2024 End: 07-05-2024 Patient encounter procedure [facility] Start: 06-21-2024 End: 06-21-2024 Professional / ancillary services management 06/21/2024 10:30 AM EDT Ancillary Procedure [facility] [address] [place] [phone] [facility] Start: 06-18-2024 End: 06-18-2024 Patient encounter procedure 06/18/2024 2:00 PM EDT Office Visit [facility] [address] [place] [phone] Sandrita Bowers, [facility] [address] [place], [place] [id number] [facility] Start: 06-17-2024 End: 06-17-2025 ABO/Rh ABO/Rh Lab Routine Missed menses Expected: 06/17/2024 (Approximate), Expires: 06/17/2025 [facility] Comment on above: Expected: 06/17/2024 (Approximate), Expires: 06/17/2025 Start: 06-17-2024 End: 06-17-2025 Alanine aminotransferase [Enzymatic activity/volume] in Serum or Plasma ALT Lab Routine Multigravida of advanced maternal age in first trimester Expected: 06/17/2024 (Approximate), Expires: 06/17/2025 [facility] Comment on above: Expected: 06/17/2024 (Approximate), Expires: 06/17/2025 Start: 06-17-2024 End: 06-17-2025 Aspartate aminotransferase [Enzymatic activity/volume] in Serum or Plasma AST Lab Routine Multigravida of advanced maternal age in first trimester Expected: 06/17/2024 (Approximate), Expires: 06/17/2025 [facility] Comment on above: Expected: 06/17/2024 (Approximate), Expires: 06/17/2025 Start: 06-17-2024 End: 06-17-2025 Blood type and Indirect antibody screen panel - Blood Type and screen Lab Routine Missed menses Expected: 06/17/2024 (Approximate), Expires: 06/17/2025 [facility] Work Phone: Comment on above: Expected: 06/17/2024 (Approximate), Expires: 06/17/2025 Start: 06-17-2024 End: 06-17-2025 CBC W Auto Differential panel - Blood [facility] Comment on above: Ordered: 06/17/2024 Expected: 06/17/2024 (Approximate), Expires: 06/17/2025 Start: 06-17-2024 End: 06-17-2025 Creatinine [Mass/volume] in Serum or Plasma Creatinine Lab Routine Multigravida of advanced maternal age in first trimester Expected: 06/17/2024 (Approximate), Expires: 06/17/2025 [facility] Comment on above: Expected: 06/17/2024 (Approximate), Expires: 06/17/2025 Start: 06-17-2024 End: 06-17-2025 Drugs of abuse panel - Urine by Screen method Rapid drug screen, urine Lab Routine Missed menses Encounter for supervision of normal first in first trimester , unspecified gestational age Expected: 06/17/2024 (Approximate), Expires: 06/17/2025 [facility] Comment on above: Expected: 06/17/2024 (Approximate), Expires: 06/17/2025 Start: 06-17-2024 End: 06-17-2025 Lactate dehydrogenase [Enzymatic activity/volume] in Serum or Plasma by Lactate to pyruvate reaction Lactate dehydrogenase Lab Routine Multigravida of advanced maternal age in first trimester Expected: 06/17/2024, Expires: 06/17/2025 [facility] Comment on above: Expected: 06/17/2024 , Expires: 06/17/2025 Start: 06-17-2024 End: 06-17-2025 Protein, urine, 24 hour Protein, urine, 24 hour Lab Routine Multigravida of advanced maternal age in first trimester Expected: 06/17/2024 (Approximate), Expires: 06/17/2025 [facility] Comment on above: Expected: 06/17/2024 (Approximate), Expires: 06/17/2025 Start: 06-17-2024 End: 06-17-2025 Pt and ptt Pt and ptt Lab Routine Multigravida of advanced maternal age in first trimester Expected: 06/17/2024, Expires: 06/17/2025 [facility] Comment on above: Expected: 06/17/2024 , Expires: 06/17/2025 Start: 06-17-2024 End: 06-17-2025 Urate [Mass/volume] in Serum or Plasma Uric acid Lab Routine Multigravida of advanced maternal age in first trimester Expected: 06/17/2024 (Approximate), Expires: 06/17/2025 [facility] Comment on above: Expected: 06/17/2024 (Approximate), Expires: 06/17/2025 Start: 06-17-2024 End: 06-17-2025 Urea nitrogen [Mass/volume] in Serum or Plasma BUN Lab Routine Multigravida of advanced maternal age in first trimester Expected: 06/17/2024, Expires: 06/17/2025 [facility] Comment on above: Expected: 06/17/2024 , Expires: 06/17/2025 Start: 06-17-2024 End: 06-17-2025 US Pelvis transvaginal US OB transvaginal Imaging Routine complicated by intrauterine device (IUD) Expected: 06/17/2024 (Approximate), Expires: 06/17/2025 [facility] Comment on above: Expected: 06/17/2024 (Approximate), Expires: 06/17/2025 Start: 06-17-2024 End: 06-17-2024 Patient encounter procedure 06/17/2024 10:50 AM EDT Routine [facility] [address] [place] [address] Catrachito Aiken DO [address] [place] [address] Arrived [facility] Comment on above: Arrived Start: 06-11-2024 X-ray of left knee XR knee LT 3V - NOT FOR ER USE [facility] Start: 06-11-2024 XR Knee - left 3 Views [facility] Start: 05-31-2024 End: 05-31-2024 Patient encounter procedure [facility] Start: 05-26-2024 COVID-19 Vaccine ( season) COVID-19 Vaccine ( season) [facility] Start: 05-26-2024 COVID-19 Vaccine ( season) COVID-19 Vaccine ( season) [facility] Start: 05-26-2024 Influenza vaccination [facility] Start: 05-23-2024 End: 05-23-2024 Professional / ancillary services management 05/23/2024 3:45 PM EDT Ancillary Procedure [facility] [address] [phone] [facility] Start: 05-23-2024 End: 05-23-2024 ambulatory 05/23/2024 3:30 PM EDT Initial [facility] [address] [place] [phone] Sandrita Bowers, PRE[facility] [address] [place], [place] [phone] Arrived [facility] Comment on above: Arrived Start: 04-29-2024 Hospital admission [facility] Start: 04-29-2024 End: 04-29-2024 [facility] Start: 04-29-2024 Physical therapy procedure [facility] Start: 04-19-2024 Plain X-ray of left femur XR femur L T 2V* [facility] Start: 04-19-2024 Plain X-ray of left tibia and left fibula XR tibia fibula LT 2V* [facility] Start: 04-19-2024 XR Femur - left 2 Views [facility] Start: 04-19-2024 XR Tibia and Fibula - left 2 Views [facility] Start: 04-15-2024 [facility] Start: 03-12-2024 MRSA Culture MRSA Culture [facility] Start: 02-15-2024 Pelvis X-ray XR pelvis 1-2V [facility] Start: 02-15-2024 Radiologic examinati on of knee XR knee LT 4V* [facility] Start: 02-15-2024 XR Knee - left 4 Views [facility] Start: 02-15-2024 XR Pelvis 1 or 2 Views [facility] Start: 07-02-2022 DTaP/Tdap/Td vaccine (2 - Td) DTaP/Tdap/Td vaccine (2 - Td) [place] Start: 05-26-2020 Influenza vaccination Flu vaccine (# 1) [place] Start: 04-21-2020 End: 04-21-2020 Office Visit 04/21/2020 Office Visit Obstetrics and Gynecology Karel Palm DO [address] [place], [place] [id number] [phone] [facility] hand laster [place] Start: 05-26-2019 Influenza vaccination Flu vaccine (# 1) [place], [place] Start: 2018 Screening for malign ant neoplasm of cervix [facility] Start: 2009 Cervical cancer screen Cervical canc er screen [place], [place] Start: 2009 Screening for malign ant neoplasm of cervix [facility] Start: 2007 DTaP/Tdap/Td vaccine (1 - Tdap) DTaP/Tdap/Td vaccine (1 - Tdap) [place] Start: 2006 Adult BMI Follow Up Plan Adult BMI Follow Up Plan [facility] Start: 2003 HIV screen HIV screen Bina Bryan [place], [place] Start: 2003 HIV screening HIV screen Bina Solomon [place], [place] Start: 2001 Varicella Vaccine (1 of 2 - 13+ 2-dose series) Varicella Vaccine (1 of 2 - 13+ 2-dose series) [place], [place] Start: 2000 Depression Screening Depression Scre [facility] Start: 1989 Varicella vaccine (1 of 2 - 2-dose childhood series) Varicella vaccine (1 of 2 - 2-dose childhood series) [place] Bacteria identified in Urine by Culture Urine culture Microbiology Routine Missed menses Ordered: 06/17/2024 [facility] Comment on above: Ordered: 06/17/2024 CHLAMYDIA TRACHOMATI S (GENITO/STI) CHLAMYDIA TRACHOMATIS (GENITO/STI) Lab Routine Exposure to STD Ordered: 08/12/2024 [facility] Comment on above: Ordered: 08/12/2024 End: 05-31-2019 Cobalamin (Vitamin B12) [Mass/Vol] Vitamin B12 Lab Routine History of bariatric surgery 1 Occurrences starting 05/31/2019 until 05/31/2019 [place], [place] Comment on above: 1 Occurrences starti ng 05/31/2019 until 05/31/2019 Cobalamin (Vitamin B 12) [Mass/Vol] Vitamin B12 Lab Routine History of bariatric surgery 05/31/2019 8:42 AM EDT [place] Cotinine [Mass/volum e] in Serum or Plasma [facility] Cotinine [Mass/volum e] in Serum or Plasma [facility] End: 04-02-2020 Covid-19 Ambulatory Covid-19 Ambulatory Lab Routine Once for 1 Occurrences starting 04/02/2020 until 04/02/2020 [place] Comment on above: Once for 1 Occurrenc es starting 04/02/2020 until 04/02/2020 Covid-19 Ambulatory Covid-19 Amb ulatory Lab Routine 04/02/2020 10:12 PM EDT [place] Glucose measurement estimated from glycated hemoglobin [facility] Hemoglobin A1c/Hemoglobin.total in Blood Hemoglobin A1c Lab Routine Missed menses Ordered: 06/17/2024 [facility] Comment on above: Ordered: 06/17/2024 Hepatitis B virus herr rface Ag [Presence] in Serum or Plasma by Immunoassay Hepatitis B surface antigen Lab Routine Missed menses Ordered: 06/17/2024 [facility] Comment on above: Ordered: 06/17/2024 Hepatitis C virus Ab [Presence] in Serum or Plasma by Immunoassay Hepatitis C antibody Lab Routine Missed menses Ordered: 06/17/2024 [facility] Comment on above: Ordered: 06/17/2024 HIV-1/HIV-2 antigen/antibody combination immunoassay HIV-1 and HIV-2 antibodies Lab Routine Missed menses Ordered: 06/17/2024 [facility] Comment on above: Ordered: 06/17/2024 Methicillin resistan t Staphylococcus aureus [Presence] in Unspecified specimen by Organism specific culture [facility] MR Knee - left WO contrast F [facility] Neisseria gonorrhoea e DNA [Presence] in Unspecified specimen by SORIN with probe detection Neisseria gonorrhea DNA probe, direct Lab Routine Exposure to STD Ordered: 08/12/2024 [facility] Comment on above: Ordered: 08/12/2024 Nicotine [Mass/volum e] in Serum or Plasma [facility] Nicotine [Mass/volum e] in Serum or Plasma [facility] Patient Education Know your Meds [facility] Work Phone: Reagin Ab [Presence] in Serum by RPR RPR Lab Routine Missed menses Ordered: 06/17/2024 [facility] Comment on above: Ordered: 06/17/2024 Rubella antibody, IgG Rubella an tibody, IgG Lab Routine Missed menses Ordered: 06/17/2024 [facility] Services Comment on above: Ordered: 06/17/2024 SURESWAB(R) ADVANCED VAGINITIS PLUS, TMA SURESWAB(R) ADVANCED VAGINITIS PLUS, TMA Pathology and Cytology Routine Exposure to STD Ordered: 08/12/2024 [facility] Work Phone: Comment on above: Ordered: 08/12/2024 End: 03-31-2025 US for US OB follow up transabdominal approach Imaging Routine Retained intrauterine device (IUD) during in second trimester every 4 weeks for 4 Occurrences starting 10/01/2024 until 03/31/2025 [facility] Comment on above: every 4 weeks for 4 Occurrences starting 10/01/2024 until 03/31/2025 [facility] Immunizations Immunization Date Immunization Notes Care Provider Marty cerna 07-10-2024 influenza virus vaccine, unspecified formulation Catrachitodamian Villatoroo DO Work Phone: [facility] 07-29-2021 COVID-19 mRNA-1273 (Moderna) [facility] 10-29-2020 COVID-19 mRNA-1273 (Moderna) [facility] 10-01-2020 COVID-19 mRNA-1273 (Moderna) [facility] 06-30-2020 influenza virus vaccine, unspecified formulation Sandrita Floro CNM Work Phone: [facility] 07-03-2019 influenza virus vaccine, unspecified formulation Yesica Khan [place], [place] 06-05-2017 influenza, seasonal, injectable Sandrita Floro CNM Work Phone: [facility] 05-12-2017 influenza, injectabl e, quadrivalent, preservative free Sandrita Floro CNM Work Phone: [facility] 07-02-2012 tetanus toxoid, redu virginia diphtheria toxoid, and acellular pertussis vaccine, adsorbed Yesica Khan [facility] 05-18-2001 measles, mumps and rubella virus vaccine Sandrita Floro CNM Work Phone: [facility] Payers Date Payer Category Payer Commercial Managed C are - HMO [id number] 2024 Managed Care HMO (unspecified) [id number] 2024 Unknown [id number] 2024 Self-pay [id number] 2023 Blue Cross Blue Shield BCBS [id number] 2023 Unknown 2023 Unknown [id number] 2022 Unknown [id number] 2020 Unknown [id number] 2018 Unknown MEDICAL MUTUAL M EDICAL MUTUAL [employer] PLUS PLAN MH EMP xxxxxxxxxxxx 2018-Present [phone] [address] [place] [address] xxxxxxxxxxxx [id number] 2018 Medicaid [id number] 2014 Unknown PARAMOUNT ADVANT AGE PARAMOUNT ADVANTAGE xxxxxxxxxxx 2014-Present [phone] [address] [place] [address] xxxxxxxxxxx [id number] .[id number] 1988 Unknown [id number] 2.16.840.1.412495.3.579.2 .196 1988 Unknown [id number] 2.16.840.1.187037.3.579.2 .196 1988 Unknown [id number] 2.16.840.1.247786.3.579.2 .196 1988 Unknown [id number] 2.16.840.1.989464.3.579.2 .1286 1988 Unknown [id number] 2.16.840.1.602536.3.579.2 .1285 1988 Unknown [id number] 2.16.840.1.514974.3.579.2 .1285 1988 Unknown [id number] 2.16.840.1.290555.3.579.2 .1285 1988 Unknown [id number] 2.16.840.1.217666.3.579.2 .1285 1988 Unknown [id number] 2.16.840.1.691112.3.579.2 .1285 1988 Unknown [id number] 2.16.840.1.830069.3.579.2 .1285 1988 Unknown [id number] 2.16.840.1.422077.3.579.2 .1285 1988 Unknown [id number] 2.16.840.1.120277.3.579.2 .1285 1988 Unknown [id number] 2.16.840.1.663896.3.579.2 .8 1988 Unknown [id number] 2.16.840.1.188634.3.579.2 .1988 Unknown [id number] 2.16.840.1.900835.3.579.2 .1988 Unknown [id number] 2.16.840.1.470064.3.579.2 .1988 Unknown [id number] 2.16.840.1.482096.3.579.2 .1988 Unknown [id number] 2.16.840.1.953432.3.579.2 .1988 Unknown [id number] 2.16.840.1.643903.3.579.2 .718 1988 Unknown [id number] 2.16.840.1.373557.3.579.2 .718 1988 Unknown [id number] 2.16.840.1.664130.3.579.2 .9 1988 Unknown [id number] 2.16.840.1.965483.3.579.2 .9 1988 Unknown [id number] 2.16.840.1.041800.3.579.2 .1258 1988 Unknown [id number] 2.16.840.1.721484.3.579.2 .1258 1988 Unknown [id number] 2.16.840.1.213245.3.579.2 .1258 1988 Unknown [id number] 2.16.840.1.767432.3.579.2 .1258 1988 Unknown [id number] 2.16.840.1.139484.3.579.2 .9 1988 Unknown [id number] 2.16.840.1.289389.3.579.2 .1258 1988 Unknown [id number] 2.16.840.1.301740.3.579.2 .9 1988 Unknown [id number] 2.16.840.1.548531.3.579.2 .1258 1988 Unknown [id number] 2.16.840.1.664064.3.579.2 .1258 1988 Unknown [id number] 2.16.840.1.177846.3.579.2 .1258 1988 Unknown [id number] 2.16.840.1.949909.3.579.2 .1258 1988 Unknown [id number] 2.16.840.1.532547.3.579.2 .1258 1988 Unknown [id number] 2.16.840.1.659274.3.579.2 .1286 Unknown [facility] Employees [id number] Unknown [id number] 2.16.840.1.033259.3.579.2 .531 Unknown [id number] 2.16.840.1.040925.3.579.2 .531 Unknown [id number] 2.16.840.1.825813.3.579.2 .531 Unknown [id number] 2.16.840.1.553722.3.579.2 .531 Social History Date Type Detail Facility Start: 05-17-2019 End: 01-03-2020 Tobacco smoking status NHIS Former smoker [place] Start: 05-17-2019 End: 04-25-2024 Cigarettes smoked current (pack per day) - Reported [place] Start: 05-17-2019 End: 04-25-2024 Alcohol intake Yes [place] Start: 05-17-2019 Alcohol Comment social [place], [place] Start: 1990 Sex Assigned At Not on file M [place], [place] Start: 01-03-2020 End: 11-21-2024 Alcohol intake Current drinker of alcohol (finding) [place] Start: 11-14-2019 End: 04-20-2023 Tobacco smoking status NCIS Never smoked tobacco (finding) [facility] Start: 1990 Sex Assigned At Female F [facility] Start: 07-29-2016 End: 04-20-2023 Tobacco use and exposure Smokeless tobacco non-user [facility] Start: 04-21-2024 [facility] Unknown [facility] Start: 07-29-2016 Alcohol Comment 1-2 drinks per month [facility] Start: 07-05-2024 End: 09-04-2024 Alcoholic beverage intake Ex-drinker (finding) [facility] Start: 04-30-2015 Sex Female (finding) [facility] NEGATED: Highlighted row [facility] Medical Equipment Procedure Code Equipment Code Equipment Origin al Text Equipment Identifier Dates Arthroplasty, knee, total, minimally invasive Uncoated unicondylar knee femur prosthesis ()[id number] FDA Start: 04-29-2024 Arthroplasty, knee, total, minimally invasive Uncoated unicondylar knee tibia prosthesis, metallic ()[id number] FDA Start: 04-29-2024 Arthroplasty, knee, total, minimally invasive Unicondylar knee insert ()[id number] FDA Start: 04-29-2024 Arthroplasty, knee, total, minimally invasive Orthopaedic cement, non-medicated ()[id number] FDA Start: 04-29-2024 1 strip by In Vi tro route Daily Use in the morning prior to breakfast, 1 hour after each meal for a total of 4times daily. [id number] Start: 07-08-2024 End: 08-07-2024 1 each by In Vit ro route Daily Use to check FSBS four times daily [id number] Start: 07-08-2024 End: 08-07-2024 Goals Date Patient Goal Desired Activity /State Clinical Notes 07-11-2023 to 11-21-2024 Mariaelena Machado LPN - 11/21/2024 11:50 AM Chapito Machado [employer] - 11/07/2024 1:30 PM Swati Fisher LPN - 10/01/2024 9:50 AM Nicki Reid MD - 09/04/2024 11:30 AM EST Note Date & Type Note Facility 11-21-2024 History of Present illness Narrative Reason for Appointment: Patient ID: Lcuila Jacques is a 34 y.o. female who [...] nursing note reviewed. Exam conducted with a watch parts inspector present. Vitals: Estimated body mass index is [...] on Monday, but encouraged to report to [facility] at this time to have monitoring [...] Aiken DO documented in this encounter [facility] 11-07-2024 History of Present illness Narrative Reason [...] nursing note reviewed. Exam conducted with a watch parts inspector present. Vitals: Estimated body mass index is [...] Aiken DO documented in this encounter [facility] 11-06-2024 Note Patient Education Ma terials Follows: [...] or lying down. General instructions ? Take znxb-tdb-xpaougb and prescription medicines only as told by [...] provider. Document Revised: 03/06/2023 Document Reviewed: 03/06/2023 [employer] Patient Education ? 2023 [employer] Contusion A contusion is a deep bruise. Contusions are the result of a blunt injury to tissues and muscle fibers under the skin. The injury causes bleeding under the skin. The skin over the contusion may turn blue, p (more content not included)... [facility] 10-01-2024 History of Present illness Narrative [...] nursing note reviewed. Exam conducted with a watch parts inspector present. Vitals: Estimated body mass index is [...] Aiken DO documented in this encounter [facility] 09-04-2024 History of Present illness Narrative [facility] [...] Martinez DO at [facility] SECTION 06/25/2012 SECTION 10/26/2014 laparoscopic hiatal hernia repair N/A 08/05/2016 Performed by Vahe Fernandez MD at [facility] LAPAROSCOPIC SLEEVE GASTRECTOMY POSSIBLE CLOSURE OF DIAPHRAGMATIC CRURA DNM-CLINIC N/A 08/05/2016 Performed by Vahe Fernandez MD at [facility] MICRODISCECTOMY LUMBAR Allergies: Allergies Allergen [...] Resource Strain: Low Risk (03/13/2024) Received from [facility] Overall Financial Resource Strain (CARDIA) Difficulty of Paying Living Expenses: Not hard at all Food Insecurity: No Food Insecurity (07/05/2024) Hunger Screening Food Insecurity - Worry: Never True Food Insecurity - Inability: Never True Transportation Needs: Unknown (03/13/2024) Received from [facility] PRAPARE - Transportation Lack of Transportation (Medical): Not on file Lack of Transportation (Non-Medical): No Physical Activity: Not on file Stress: Not on file Social Connections: Not on file Interpersonal Safety: Not on file Housing Instability: Unknown (03/13/2024) Received from [facility] Housing Stability Vital Sign Unable to [...] - 1.00 mg/dL Final METHOD TRACEABLE TO IDDC STANDARD eGFR (CKD-EPI)non-race dependent 07/10/2024 >90 >59 [...] gestation of [Z3A.21] Please refer to prior [facility] recommendations and consultation notes Ultrasound was [...] primary OB office. If you would like [facility] to perform the growth ultrasound please place a referral Weekly NST and DVP from 34 weeks until delivery due to the patient's medical co-morbidities. To be done in primary OB office Delivery recommended at 39 weeks or earlier as clinically indicated to remove IUD at time of section. The patient desires tubal ligation The patient has a scheduled ultrasound with [facility] She does not have future follow-up visits at [facility] if you would like for us to see the patient again please reach out was The patient is to continue with routine care in your office Thank you for allowing me to participate in her care. Please contact me if you have any concerns. Christen Reid MD, FACOG (she/hers) Maternal- Medicine [facility] [address] [place] [address] This document was created with [employer] technology. Though I make every effort to review the dictation as it is transcribed, on occasion the spoken word can be misinterpreted by the technology leading to inappropriate words, phrases, or sentences. This note is addressed to the requesting provider as a consultation for clinical guidance. Specific medical abbreviations are occasionally used and those are generally approved by the [place]?Board of?Obstetrics and?Gynecology?as well as?Vilma mckeon abbreviations. The above plan of care was based solely on the diagnoses for which a consultation was requested. ?More frequent testing may be indicated based on her other medical/obstetrical conditions. The management of other or medical conditions is beyond the scope of requested consultation and will continue to be followed by the primary accounts receivable representative or primary care provider. Note to patient: [...] provider today? No documented in this encounter [facility] 08-12-2024 History of Present illness Narrative Reason [...] ALTAF Nation documented in this encounter [facility] 07-16-2024 History of Present illness Narrative Reason for Appointment: Patient ID: Lucila Jacques is a 34 y.o. female who presents for No chief complaint on file. Patient presents today for Return OB appointment. MEDICATIONS Current Outpatient Medications Medication Instructions Alcohol Swabs (Alcohol Prep Pad) 70 % pads 1 Pad, Topical, Daily, Use four times daily to check FSBS. Blood Glucose Monitoring Suppl ([employer] Glucometer) w/Device kit 1 kit, Does not [...] Past Medical History: Diagnosis Date Migraine headache (CMS/[facility]) Social History Tobacco Use Smoking status: Never [...] nursing note reviewed. Exam conducted with a watch parts inspector present. Vitals: Estimated body mass index is [...] or undercooked meat, and stay away from [facility]. Patient has been consulted regarding any further do's and don'ts of . Patient voiced understanding and all questions and concerns were answered. Orders Placed This Encounter Procedures POCT urinalysis dipstick manually resulted Follow Up: Patient is to return in 4 weeks for routine OB appointment. Documented by Vikki Fisher LPN on behalf of: Catrachito Aiken DO documented in this encounter [facility] 07-05-2024 History of Present illness Narrative Headache/epigastric [...] yes Have you been seen here at [facility] in a previous ? Yes Recent ER visits or hospitalizations? no Bring blood sugar log or meter with you today? (Please bring them with you for every visit at [facility]) n/a Flu vaccine (Jul-November)? no Any [...] 03/30/2022 Performed by Mason Martinez DO at [facility] SECTION 06/25/2012 SECTION 10/26/2014 laparoscopic hiatal hernia repair N/A 08/05/2016 Performed by Vahe Fernandez MD at [facility] LAPAROSCOPIC SLEEVE GASTRECTOMY POSSIBLE CLOSURE OF DIAPHRAGMATIC CRURA [facility] N/A 08/05/2016 Performed by Vahe Fernandez [...] Resource Strain: Low Risk (03/13/2024) Received from [facility] Overall Financial Resource Strain (CARDIA) Difficulty of Paying Living Expenses: Not hard at all Food Insecurity: No Food Insecurity (07/05/2024) Hunger Screening Food Insecurity - Worry: Never True Food Insecurity - Inability: Never True Transportation Needs: Unknown (03/13/2024) Received from [facility] PRAPARE - Transportation Lack of Transportation (Medical): Not on file Lack of Transportation (Non-Medical): No Physical Activity: Not on file Stress: Not on file Social Connections: Not on file Interpersonal Safety: Not on file Housing Instability: Unknown (03/13/2024) Received from [facility] Housing Stability Vital Sign Unable [...] bring it to the attention of her accounts receivable representative to confirm intact expulsion. 2. Obesity affecting [...] to be sent by Dr. Aiken's office. [facility] is happy to review sugar log [...] continue with routine care in your office [facility], the CDC, and other organizations representing maternal and public health professionals recommend that , , and lactating people and those considering receive the COVID-19 vaccination. Vaccination is the best method to reduce maternal and complications of SARS-CoV-2 infection. This document was created with [employer] technology. Though I make every effort to review the dictation as it is transcribed, on occasion the spoken word can be misinterpreted by the technology leading to inappropriate words, phrases, or sentences. This note is addressed to the requesting provider as a consultation for clinical guidance. Specific medical abbreviations are occasionally used and those are generally approved by the [place]?Board of?Obstetrics and?Gynecology?as well as?Vilma s abbreviations. The above plan of care was based solely on the diagnoses for which a consultation was requested. ?More frequent testing may be indicated based on her other medical/obstetrical conditions. The management of other or medical conditions is beyond the scope of requested consultation and will continue to be followed by the primary accounts receivable representative or primary care provider. Thank you for [...] procedures Referring and communicating with other health health careers instructor (not separately reported) Documenting clinical information in the electronic or other health record Independently interpreting results (not separately reported) and communicating results to the patient/family/caregiver Care coordination (not separately reported) documented in this encounter [facility] 06-17-2024 History of Present illness Narrative Reason [...] nursing note reviewed. Exam conducted with a watch parts inspector present. Vitals: Estimated body mass index is [...] to continue and OB care locally at [facility] office with Dr. Aiken along with M. Patient advised to take 81mg Aspirin if tolerated. Gave patient orders for early 24 hour urine and lab workup. Patient to return to clinic in 4 weeks. Documented by Mariaelena Machado LPN on behalf of: Catrachito Aiken DO documented in this encounter [facility] 05-31-2024 History of Present illness Narrative REASON [...] Gastroesophageal reflux disease without esophagitis Morbid obesity ([facility]) Past Medical History: Diagnosis Date Anxiety [...] Martinez DO at [facility] SECTION 06/25/2012 SECTION 10/26/2014 laparoscopic hiatal hernia repair N/A 08/05/2016 Performed by Vahe Fernandez MD at [facility] LAPAROSCOPIC SLEEVE GASTRECTOMY POSSIBLE CLOSURE OF DIAPHRAGMATIC CRURA DNM-CLINIC N/A 08/05/2016 Performed by Vahe Fernandez MD at [facility] MICRODISCECTOMY LUMBAR SLEEVE GASTROPLASTY 08/05/2016 [...] and the other consultants, we search on [employer] and all the available care everywhere epic I did review all the imaging studies of the patient available on EMR, ordered by the primary care physician and the other market research consultant HABITS: Patient activity no restrictions, diet [...] 5 weeks for 1st trimester ultrasound at [facility] office. 4. Targeted anatomy at weeks gestation at [facility] office. 5. Serial growth ultrasounds 4 [...] patient is in complete care of her accounts receivable representative. Patient does have ultrasound office visit scheduled with us. Thank you for allowing me to participate in Lucila Jacques . If there any questions please do not hesitate to contact us. Sincerely, LEXI ROBERTSON MD documented in this encounter [facility] 05-23-2024 History of Present illness Narrative Subjective [...] does also recommend for patient to see [facility] For their consultation also. PVU and [...] also given office phone number and [facility] number to call in case of an emergency or after hours needs. PVU and all questions answered. We did discuss place of delivery. Patient should plan to go to [facility] for all services unless an emergency and they need to go to the closest ER. We can make other arrangements possibly if patient would like to deliver at another facility but I did explain I am now at [facility] 100% of the time and would like to do all deliveries there. documented in this encounter [facility] 05-22-2024 Telephone encounter Note Pt had an IUD inserted a month ago and has tested positive for , she hadn't been feeling good lately and it is positive, please call to discuss the next step, in her pregancy and IUD [facility] 05-22-2024 Miscellaneous Notes Pt had an IUD inserted a month ago and has tested positive for , she hadn't been feeling good lately and it is positive, please call to discuss the next step, in her pregancy and IUD documented in this encounter [facility] 02-27-2024 Note Education Materials Gastroenterology Laparoscopic cholecystectomy, [...] these instructions at home: Medicines ? Take tudd-miy-cfknutb and prescription medicines only as told by [...] keep your urine pale yellow. ? Take ujdl-uop-quiipvt or prescription medicines. ? Eat foods that [...] and water are not available, use hand stucco laborer. ? Place dry dressings as needed. ? [...] Reviewed: 03/15/2022 Shaylee Patient Education ? 2022 [employer] [facility] 02-27-2024 Note [facility] Clinical Discharge Summary PERSON INFORMATION Name LUCILA JACQUES Age 33 Years 1990 Sex FEMALE Language Omani PCP Provider, None Marital Status Med Service Observation Acct# Arrival 02/26/2024 22:40:28 Visit Reason Abdominal pain; ACUTE CHOLECYSTITIS Acuity LOS 000 10:25 Address: [address] [place] [address] Comment: PROVIDER INFORMATION VITALS INFORMATION Vital Sign [...] ibuprofen Medication List: New Medications [id number], [address] [place], [place] [id number], [phone] acetaminophen-hydrocodone (acetaminophen-hydrocodone 325 mg-5 mg oral tablet) [...] range between ( 1.3 and 2.9 ) Hughes Abs#: 0.6 x103/mcL -- Normal range between ( 0.0 and 0.8 ) Auto Baso %: 0.4 % -- Normal range between ( 0.2 and 2.0 ) Auto Hughes %: 8 % -- Normal range between [...] Anion Gap: 1 (more content not included)... [facility] 01-15-2024 Note [id number] [facility] 01-12-2024 Note [facility] SURGERY Clinical Discharge Summary PERSON INFORMATION Name LUCILA JACQUES Age 33 Years 1990 Sex FEMALE Language Omani PCP Provider, None Marital Status Med Service Pain Management Surgery Acct# Arrival 01/12/2024 10:59:54 Visit Reason GENICULAR PAIN Acuity LOS 004 01:11 Address: [address] [place] [address] Comment: PROVIDER INFORMATION VITALS INFORMATION Vital Sign [...] AM Confirmed DIAGNOSIS Comment: PHYS DOC NOTES [facility] 01-11-2024 Note [id number] The history of present illness has been reviewed. There are no changes document. [Electronically Signed on: 01/12/2024 11:34 EDT] ALEC PATEL MD [Verified on: 01/12/2024 11:34 EDT] ALEC PATEL MD [Transcribed on: 01/11/2024 13:06 EDT] [facility] 08-23-2023 Note Date of Telehealth V isit: 08/23/23 The patient was notified that using 3rd libertarian telecommunication application (e.g. [employer]) is not HIPAA compliant and may carry some privacy risks: Yes This visit was conducted siwd-qp-rizq with the use of audio and video [...] shortness of breath. She has been using aora-eee-mlstsmu medications with minimal relief of symptoms. ROS: [...] EMR, and coordinating care. Ching Brooks PA-C [facility] 07-11-2023 Note [facility] Telemedicine Visit Date of Telehealth Visit: 07-11-2023 The patient was notified that using 3rd libertarian telecommunication application (e.g. [employer]) is not HIPAA compliant and may carry some privacy risks This visit was conducted btvw-ep-hnup with the use of audio and video technology using [employer] between patient and the provider for a virtual visit. Verbal consent to provide and bill this service was obtained on: 07-11-2023 No signature was obtained due to the COVID-19 pandemic. Chief Complaint Patient presents with Headache HPI Patient is a 33-year-old female who presents the telemedicine service today with complaints of a 3-day history of migraines. Patient states that she is taken [id number] Tylenol and Tylenol PM. She has a [...] today's date. Greater than 16 minutes spent [id number] assessing patient, reviewing chart and discussing plan of care including treatment options. Care collaborated all questions answered. Rekha Mustafa PA-C Portions of this chart have been completed with voice recognition software, please excuse any errors. [facility] Evaluation note No assessment inform ation available [facility] Work Phone: Evaluation note Diagnosis Onset Date Primary osteoarthritis of left knee acute [facility] Work Phone: Evaluation note* Diagnosis Onset Date Resolution Status Primary osteoarthritis of left knee acute Primary osteoarthritis of left knee acute [facility] Work Phone: Evaluation note* Diagnosis Onset Date Resolution Status Primary osteoarthritis of left knee acute Status post left partial knee replacement acute [facility] Work Phone: Evaluation note* Diagnosis Onset Date Resolution Status Primary osteoarthritis of left knee acute Status post left partial knee replacement acute Status post left partial knee replacement acute [facility] Work Phone: Evaluation note* Diagnosis 14 weeks gestation of Second trimester state, incidental documented in this encounter [facility] Diagnosis Exposure to STD Need for maternal serum alpha-protein (MSAFP) screening Screening, , for anatomic survey Encounter for anatomic survey Second trimester state, incidental 18 weeks gestation of documented in this encounter [facility]Evaluation [facility]* Diagnosis examination or test, positive result- Primary IUD check up Amenorrhea Absence of menstruation documented in this encounter [facility] Healthcare[facility]* Diagnosis Missed menses Encounter for supervision of normal first in first trimester , unspecified gestational age Encounter for screening for cervical length complicated by intrauterine device (IUD) induced hypertension, antepartum Transient hypertension of , antepartum Multigravida of advanced maternal age in first trimester documented in this encounter [facility] Healthcare[facility]* Diagnosis Second trimester state, incidental 25 weeks gestation of with normal glucose tolerance test (GTT) Diabetes mellitus screening Screening for diabetes mellitus Retained intrauterine device (IUD) during in second trimester documented in this encounter [facility]* Diagnosis Third trimester state, incidental 30 weeks gestation of with IUD in place, antepartum, first trimester documented in this encounter [facility] note* Diagnosis Retained intrauterine device (IUD) during in first trimester- Primary documented in this encounter [facility]* Diagnosis Retained intrauterine device (IUD) during in first trimester- Primary [facility] Diagnosis Retained intrauterine device (IUD) during in second trimester- Primary BMI 36.0-36.9,adult Multigravida of advanced maternal age in second trimester documented in this encounter [facility]* Diagnosis Retained intrauterine [...] weeks gestation of [facility] Diagnosis 21 weeks gestation of - Primary Retained intrauterine device (IUD) during in second trimester History of gastric bypass Obesity affecting in second trimester, unspecified obesity type with history of section, antepartum Multigravida of advanced maternal age in second trimester documented [facility]* Diagnosis 21 weeks gestation of - Primary Retained intrauterine device (IUD) during in second trimester History of gastric bypass Multigravida of advanced maternal age in second trimester documented [facility]* Diagnosis 32 weeks gestation of Third trimester state, incidental with IUD in place, antepartum, first trimester documented in this encounter [facility] HealthcareInstructionsNot on filedocumented in this [facility] SystemInstructionsNot on filedocumented in [facility]ructionsNot on filedocumented in [facility] InstructionsNot on filedocumented in this [facility] InstructionsNot on filedocumented in this [facility] InstructionsNot on filedocumented in this [facility] System Instructions* Attachments The following attachments cannot be sent through Care Everywhere. * Preeclampsia ([place]mani) * Movement ([place]mani) [facility]Not on file [facility] SystemInstructionsNot on file [facility] Ass[facility] Diagnosis History of bariatric surgery Bariatric surgery status Health care maintenance Unspecified general medical examination Advance Directives Documents on File Type Date Recorded Patient Roll Up Helper Expl anation Advance Directives and Living Will Power of Hearing Screener Advance Directive Response Recorded Date/ Time Advance [...] Lexi Robertson MD [address], [address] [place] [id number] [facility] [address] [facility] [place] [address] Referral ID Status Reason Start Date Expiration Date V isits Requested Visits Authorized [id number] Pending Review 05/31/2024 05/31/2025 1 1 Specialty Diagnoses / Procedures Referred By Contac t Referred To Contact Maternal and Medicine Diagnoses Retained intrauterine device (IUD) during in second trimester BMI 36.0-36.9,adult Multigravida of advanced maternal age in second trimester Procedures US MFM with or without consult Mishel Segovia MD [address], [address] [place] [id number] [facility] [address] [place] [address] Referral ID Status Reason Start Date Expiration Date V isits Requested Visits Authorized [id number] Pending Review 07/05/2024 07/05/2025 1 1 Additional Source Comments INFORMATION SOURCE (unrecogn ized section and content) DATE CREATED AUTHOR 10/18/2021 [facility] DATE CREATED AUTHOR AUTHOR'S ORGANIZ ATION 08/30/2023 [facility] DATE CREATED AUTHOR AUTHOR'S ORGANIZ ATION 02/02/2024 [facility] DATE CREATED AUTHOR AUTHOR'S ORGANIZ ATION 03/16/2024 [facility] DATE CREATED AUTHOR AUTHOR'S ORGANIZ ATION 06/13/2024 [facility] DATE CREATED AUTHOR AUTHOR'S ORGANIZ ATION 09/07/2024 [facility] DATE CREATED AUTHOR AUTHOR'S ORGANIZ ATION 10/16/2024 [facility] DATE CREATED AUTHOR AUTHOR'S ORGANIZ ATION 11/12/2024 [facility] DATE CREATED AUTHOR AUTHOR'S ORGANIZ ATION 11/23/2024 [facility] EPIC DATE CREATED AUTHOR [...] June 11, 2024 End: June 11, 2024 Technology Teacher Relationship Specialty Start Date End Date Unallocated, Haley Garcia MD [address] [facility] [address] PCP - General Family Medicine 02/01/24 Victor M Lujan, ENTRY LEVEL MANAGER [address] [place] [address] PCP - [place] [employer] 03/25/24 Team Status: Inactive Member Role Status Dates NON STAFF Primary Care Provider Active Start: July 17, 2024 End: July 17, 2024 Santa Estrada II, MD Attending Provider Active Start: July 17, 2024 End: July 17, 2024 Technology Teacher Relationship Specialty Start Date End Date Unallocated, Haley Garcia MD [address] [facility] [place] [address] PCP - General Family Medicine 02/01/24 Victor M Lujan, ENTRY LEVEL MANAGER [address] [place] [address] PCP - [place] [employer] 03/25/24 Technology Teacher Relationship Specialty Start Date End Date Unallocated, Haley Garcia MD [address] [place] [address] PCP - General Family Medicine 02/01/24 Victor M Lujan, ENTRY LEVEL MANAGER [address] [place] [address] PCP - [place] [employer] 03/25/24 Technology Teacher Relationship Specialty Start Date End Date Unallocated, Haley Garcia MD [facility] [facility] [place] [place] [address] PCP - General Family Medicine 02/01/24 Victor M Lujan, ENTRY LEVEL MANAGER [address] [place] [address] PCP - [place] [employer] 03/25/24 Technology Teacher Relationship Specialty Start Date End Date Unallocated, Haley Garcia MD [facility] [place] [address] PCP - General Family Medicine 02/01/24 Victor M Lujan, ENTRY LEVEL MANAGER [facility] [place] [address] PCP - [place] [employer] 03/25/24 Technology Teacher Relationship Specialty Start Date End Date Unallocated, Haley Garcia MD [facility] [place] [address] PCP - General Family Medicine 02/01/24 Victor M Lujan, ENTRY LEVEL MANAGER [facility] [place] [address] PCP - [place] [employer] 03/25/24 Technology Teacher Relationship Specialty Start Date End Date Unallocated, Haley Garcia MD [facility] [place] [address] PCP - General Family Medicine 02/01/24 Victor M Lujan, ENTRY LEVEL MANAGER [address] [place] [address] PCP - [place] [employer] 03/25/24 Technology Teacher Relationship Specialty Start Date End Date Unallocated, Haley Garcia MD [facility] [place] [address] PCP - General Family Medicine 02/01/24 Victor M Lujan, ENTRY LEVEL MANAGER [address] [facility] [place] [address] PCP - [place] [employer] 03/25/24 Technology Teacher Relationship Specialty Start Date End Date Unallocated, Noms MD Radha [address] [place] [address] PCP - General Family Medicine 02/01/24 Victor M Lujan, ENTRY LEVEL MANAGER [address] [facility] [place] [address] PCP - [place] [employer] 03/25/24 Technology Teacher Relationship Specialty Start Date End Date Unallocated, Noms MD Radha [address] [facility] [place] [address] PCP - General Family Medicine 02/01/24 Victor M Lujan, ENTRY LEVEL MANAGER [address] [place] [address] PCP - [place] [employer] 03/25/24 Technology Teacher Relationship Specialty Start Date End Date Unallocated, Nommike Garcia MD [address] [facility] [place] [address] PCP - General Family Medicine 02/01/24 Victor M Lujan, ENTRY LEVEL MANAGER [address] [place] [address] PCP - [place] [employer] 03/25/24 Technology Teacher Relationship Specialty Start Date End Date Unallocated, Haley Garcia MD [address] [place] [address] PCP - General Family Medicine 02/01/24 Victor M Lujan, ENTRY LEVEL MANAGER [address] [place] [address] PCP - [place] [employer] 03/25/24 Technology Teacher Relationship Specialty Start Date End Date Unallocated, Acs ProviderMD [address] [facility] [place] [address] PCP - General Family Medicine 02/01/24 Victor M Lujan, ENTRY LEVEL MANAGER [address] [facility] [place] [address] PCP - [place] [employer] 03/25/24 Technology Teacher Relationship Specialty Start Date End Date Unallocated, Noms MD Radha [address] [place] [address] PCP - General Family Medicine 02/01/24 Victor M Lujan, ENTRY LEVEL MANAGER [address] [place] [address] PCP - [place] [employer] 03/25/24 Technology Teacher Relationship Specialty Start Date End Date Unallocated, Noms MD Radha [address] [place] [address] PCP - General Family Medicine 02/01/24 Technology Teacher Relationship Specialty Start Date End Date Pcp, [place] [address] PCP - General Family Medicine 09/04/23 Technology Teacher Relationship Specialty Start Date End Date Pcp, [place] [address] PCP - General Family Medicine 09/04/23 Technology Teacher Relationship Specialty Start Date End Date Pcp, [place] [address] PCP - General Family Medicine 09/04/23 Technology Teacher Relationship Specialty Start Date End Date Pcp, [place] [address] PCP - General Family Medicine 09/04/23 Technology Teacher Relationship Specialty Start Date End Date Pcp, [place] [address] PCP - General Family Medicine 09/04/23 Technology Teacher Relationship Specialty Start Date End Date Pcp, [place] [address] PCP - General Family Medicine 09/04/23 Technology Teacher Relationship Specialty Start Date End Date Pcp, [place] [address] PCP - General Family Medicine 09/04/23 Technology Teacher Relationship Specialty Start Date End Date Pcp, [place] [address] PCP - General Family Medicine 09/04/23 Technology Teacher Relationship Specialty Start Date End Date Unallocated, Noms Provider, [place] [address] PCP - General Family Medicine 02/01/24 Technology Teacher Relationship Specialty Start Date End Date Pcp, [place] [address] PCP - General Family Medicine 09/04/23 Goals [...] BE BASED ON THE PRIMARY CLINICAL RECORDS. [employer] provides no warranty or guarantee of the accuracy or completeness of information in this document.
[2024-12-12] MEDS: ACETAMINOPHEN 300 MG/ 30 MG CODEINE TABLET 2 TAB PO (11:30)
[2024-12-12] MEDS: 0.9 % SODIUM CHLORIDE 1,000 ML 1000 ML IV ×3 (12:45→21:42)
[2024-12-12 12:53] LABS: Basophils Percent Auto 0.3 % (0.2-2.0); Eosinophils Absolute Auto 0.1 10^3/uL (0.0-0.7); Hematocrit 35.4 % (36.0-48.0); Hemoglobin 12.1 g/dL (12.0-16.0); Immature Granulocytes Abs Auto 0.05 10^3/uL (0.00-0.03); Immature Granulocytes Pct Auto 0.5 % (0.0-0.5); Lymphocytes Absolute Auto 1.9 10^3/uL (1.2-3.8); Lymphocytes Percent Auto 19.8 % (20.5-60.0); Mean Corpuscular HGB Conc 34.2 g/dL (29.9-35.2); Mean Corpuscular Hemoglobin 29.7 pg (26.7-34.0); Mean Platelet Volume 9.1 fL (9.5-13.5); Monocytes Absolute Auto 0.7 10^3/uL (0.3-0.8); Monocytes Percent Auto 7.3 % (1.7-12.0); Neutrophils Absolute Auto 6.8 10^3/uL (1.4-6.5); Neutrophils Percent Auto 71.1 % (43.0-75.0); Platelet Count 237 10^3/uL (150-450); Red Blood Count 4.07 10^6/uL (4.20-5.40); Red Cell Distribution Width 12.9 % (11.0-15.0); White Blood Count 9.6 10^3/uL (4.0-11.0)
--- OUTSIDE RECORDS SUMMARY | 2024-12-12 13:09 | XMS_ITS | CCD ---
Author Organization [facility] Care Team Providers Care Engineering Intern Name Role Phone Yesica Khan Primary Care [...] Haley Provider Primary Care Provi sharla Tai RETAIL ADVISOR, Victor M Worley Unavailable NON STAFF Primary [...] PCP, NOT IN SYSTEM Primary Care Unavailable [address] [place] [address], [facility] Referring Unavailable PCP, NOT IN SYSTEM Primary Care Unavailable ATITLA, CATRACHITO R Referring Unavailable PCP, NOT IN SYSTEM Primary Care Unavailable Pcp, Not In System Primary Care Provider Unavail able Peter Booth Attending Unavailable Provider, None Primary Care Unavailable Gillham, Audra M Admitting Unavailable Gillham, Audra M Attending Unavailable Provider, None Primary Care Unavailable Provider, None Primary Care Unavailable Maurizio Mast Admitting Unavailable Maurizio Mast Attending Unavailable Juliano Peterson Consulting Unavailable Gillham, Audra M Admitting Unavailable Gillham, Audra M Attending Unavailable Provider, None Primary Care Unavailable Gillham, Audra M Attending Unavailable Provider, None Primary Care Unavailable Gillham, Audra M Admitting Unavailable KINDLALEC F Admitting [...] Magnesium (1 source) Magnesium Drug Allergy 4 [facility] NSAIDs (1 source) Ibuprofen Drug Allergy 4 [facility] Potassium (1 source) Potassium Drug Allergy 4 [facility] (2 sources) Magnesium-Conta ining Compounds Propensity to adverse reactions to drug 9 [place], [place] (20 sources) Ibuprofen; Translations: [ibuprofen] Drug Allergy 9 [place], [place] (1 source) Potassium-Conta ining Compounds Propensity to adverse reactions to drug 0 [place], [place] (1 source) ALLERGIES NOT ON FILE; Translations: [ALLERGIES NOT ON FILE] Propensity to adverse reactions (disorder) [facility] Repository (20 sources) Magnesium; Translations: [magnesium] Drug Allergy 2 [facility] (20 sources) Potassium; Translations: [potassium] Drug Allergy 3 [facility] (9 sources) Contrast media Allergy to substance 4 [facility] (6 sources) NSAIDS (Non-Steroidal Anti-Inflamma Allergy to substance 4 [facility] (1 source) Ibuprofen Drug Allergy 4 [facility] Repository (20 sources) Non-steroidal anti-inflammato ry agent Drug Allergy 3 [facility] Work Phone: (20 sources) Amoxicillin-Pot Clavulanate Drug Intolerance 1 [facility] Healthcare (20 sources) Amoxicillin; Translations: [AMOXICILLIN] Drug Allergy 4 [facility] Repository (12 sources) NSAIDs; Translations: [NSAIDS (NON-STEROIDAL ANTI-INFLAMMATO RY DRUG)] Propensity to adverse reactions to drug (disorder) 2 Hives [facility] Repository (20 sources) Potassium Chloride; Translations: [POTASSIUM CHLORIDE] Drug Allergy 2 Hiv [facility] Repository (16 sources) Iodinated Contrast Media; Translations: [IODINATED CONTRAST MEDIA] Drug Intolerance 4 Hives, Itching, Rash [facility] Healthcare Medications Current Medications Medication Drug Class(es) [...] mouth Daily 08/12/2024 Discontinued (Therapy completed) levonorgestrel 0.587745 mg/hr intrauterine system (2 sources) Progestin, Progestin-containing [...] VITAMINS DAILY ORAL) Take by mouth. 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 Ordering Physician: Catrachito Aiken D.O. Date of Service: 12/02/24 Procedure(s): US OB BPP w non-stress Accession Number(s): [id number] cc: Catrachito Aiken D.O.; Physician,Non-Staff M.DWalker The [place] [id number] Patient Name: LUCILA JACQUES MRN: [facility]:[id number] date: 1990 Sex: F Assigned Patient Location: [facility] Current Patient Location: Accession/Order Number: [id number] Exam Date: 12/02/2024 13:46 Report Date: 12/02/2024 13:48 At the request of: CATRACHITO AIKEN DO Procedure: US OB BPP w non-stress BIOPHYSICAL PROFILE: CLINICAL INFORMATION: with IUD in place COMPARISON: 11/28/2024 A single live intrauterine gestation is present in cephalic presentation. The reported gestational age is 34 weeks 1 day. The heart rate kfiizazn613 beats per minute. FINDINGS: TONE: 1 or [...] Vikki Rivers M.D.12/02/2024 1:48 PM Dictation Location: [place] [address] Electronically authenticated by: [id number] Y Date: 12/02/2024 13:48 Dictated By: Vikki Rivers M.D. Signed By: 12/02/24 1351 DD/ 1348 TD/TT: Precipitate Washer: [facility] Radiology, Radiologi MD kevin - 12/02/2024 [place] [address] Ultrasound Report Signed Patient: LUCILA JACQUES MR#: [id number] : 1990 Acct:[id number] Age/Sex: 34 / F ADM Date: 12/02/24 Loc: US Attending Dr: Catrachito Aiken D.O. Ordering Physician: Catrachito Aiken D.O. Date of Service: 12/02/24 Procedure(s): US OB BPP w non-stress Accession Number(s): [id number] cc: Catrachito Aiken D.O.; Physician,Non-Staff Farhat The [address] [address] Patient Name: LUCILA JACQUES MRN: [facility]:[id number] date: 1990 Sex: F Assigned Patient Location: [facility] Current Patient Location: Accession/Order Number: [id number] Exam Date: 12/02/2024 13:46 Report Date: 12/02/2024 13:48 At the request of: CATRACHITO AIKEN DO Procedure: US OB BPP w non-stress BIOPHYSICAL PROFILE: CLINICAL INFORMATION: with IUD in place COMPARISON: 11/28/2024 A single live intrauterine gestation is present in cephalic presentation. The reported gestational age is 34 weeks 1 day. The heart rate wlvugliu247 beats per minute. FINDINGS: TONE: 1 or [...] Vikki Rivers M.D.12/02/2024 1:48 PM Dictation Location: [place] [address] Electronically authenticated by: [id number] Y Date: 12/02/2024 13:48 Dictated By: Vikki Rivers M.D. Signed By: 12/02/24 1351 DD/ 1348 TD/TT: Precipitate Washer: [facility] Radiology Study observation (narrative) [facility] US OB BPP W NON-STRESS Ordered By: Radiologist Radiology on 12-02-2024 [facility] Work Phone: AMNISUREon 11-25-2024 [facility] AMNISURE Negative NEGATIVE [facility] US OB BPP W NON-STRESS on 11-25-[address] [address] Ultrasound Report Signed Patient: LUCILA JACQUES MR#: [id number] : 1990 Acct:[id number] Age/Sex: 34 / F ADM Date: 11/25/24 Loc: US Attending Dr: Catrachito Aiken D.O. Ordering Physician: Catrachito Aiken D.O. Date of Service: 11/25/24 Procedure(s): US OB BPP w non-stress Accession Number(s): [id number] cc: Catrachito Aiken D.O.; Physician,Non-Staff Farhat The [place] [id number] Patient Name: LUCILA JACQUES MRN: [facility]:[id number] date: 1990 Sex: F Assigned Patient Location: [facility] Current Patient Location: [facility] Accession/Order Number: [id number] Exam Date: 11/25/2024 16:14 Report Date: 11/25/2024 16:15 At the request of: CATRACHITO AIKEN DO Procedure: US OB BPP w non-stress Biophysical profile. Reason for exam: IUD in place with current . COMPARISON: BPP 11/21/2024. TECHNIQUE: Transabdominal imaging of the gravid uterus was obtained. FINDINGS: The rubber curer reports a BPP of 8 out of 8. ISAIAH 6.7 cm heart rate 140 bpm. US/US OB BPP w non-stress IMPRESSION: BPP 8 out of 8. Impression dictated by: Haile Palacio Jr., D.O.11/25/2024 4:15 PM Dictation Location: [place] [address] Electronically authenticated by: [id number] Y Date: 11/25/2024 16:15 Dictated By: Haile Palacio M.D. Signed By: 11/25/24 1618 DD/ 14 TD/TT: Precipitate Washer: [facility] RadiologyIsidraogrodriguez brown MD - 11/25/2024 [place] [address] Ultrasound Report Signed Patient: LUCILA JACQUES MR#: [id number] : 1990 Acct:[id number] Age/Sex: 34 / F ADM Date: 11/25/24 Loc: US Attending Dr: Catrachito Aiken D.O. Ordering Physician: Catrachito Aiken D.O. Date of Service: 11/25/24 Procedure(s): US OB BPP w non-stress Accession Number(s): [id number] cc: Catrachito Aiken D.O.; Physician,Non-Staff [place] [address] Patient Name: LUCILA JACQUES MRN: [facility]:[id number] date: 1990 Sex: F Assigned Patient Location: [facility] Current Patient Location: [facility] Accession/Order Number: [id number] Exam Date: 11/25/2024 16:14 Report Date: 11/25/2024 16:15 At the request of: CATRACHITO AIKEN DO Procedure: US OB BPP w non-stress Biophysical profile. Reason for exam: IUD in place with current . COMPARISON: BPP 11/21/2024. TECHNIQUE: Transabdominal imaging of the gravid uterus was obtained. FINDINGS: The rubber curer reports a BPP of 8 out of 8. ISAIAH 6.7 cm heart rate 140 bpm. US/US OB BPP w non-stress IMPRESSION: BPP 8 out of 8. Impression dictated by: Haile Palacio Jr., D.O.11/25/2024 4:15 PM Dictation Location: [place] [address] Electronically authenticated by: [id number] Y Date: 11/25/2024 16:15 Dictated By: Haile Palacio M.D. Signed By: 11/25/248 DD/ 14 TD/TT: Precipitate Washer: [facility] Radiology Study observation (narrative) [facility] US OB BPP W NON-STRESS Ordered By: Radiologist Radiology on 11-25-2024 [facility] Work Phone: AMNISUREon 11-21-2024 [facility] AMNISURE Negative NEGATIVE [facility] No Panel InformationOrdered By: Radiologist Radiology on 11-21-2024 [facility] Work Phone: No Panel Informationon 11-21 Radiology Study observation (narrative) [facility] US OB BPP W NON-STRESS on 11-21-2024 [place] [address] Ultrasound Report Signed Patient: LUCILA JACQUES MR#: [id number] : 1990 Acct:[id number] Age/Sex: 34 / F ADM Date: Loc: [facility] 250-[address]: Catrachito Aiken D.O. Ordering Physician: Catrachito Aiken D.O. Date of Service: 11/21/24 Procedure(s): US OB BPP w non-stress Accession Number(s): [id number] cc: Catrachito Aiken D.O.; Physician,Non-Staff MChristie The [place] [address] Patient Name: LUCILA JACQUES MRN: [facility]:[id number] date: 1990 Sex: F Assigned Patient Location: [facility] Current Patient Location: Accession/Order Number: [id number] Exam Date: 11/21/2024 18:27 Report Date: 11/21/2024 [...] Ruddy Esquivel M.D.11/21/2024 6:32 PM Dictation Location: [place] [address] Electronically authenticated by: [id number] Y Date: 11/21/2024 18:32 Dictated By: Ruddy Esquivel M.D. Signed By: 11/21/241834 DD/ 31 TD/TT: Precipitate Washer: [facility] Radiology, Radiologi MD kevin - 11/21/2024 [place] [address] Ultrasound Report Signed Patient: LUCILA JACQUES MR#: [id number] : 1990 Acct:[id number] Age/Sex: 34 / F ADM Date: Loc: [facility] [address]: Catrachito Aiken D.O. Ordering Physician: Catrachito Aiken D.O. Date of Service: 11/21/24 Procedure(s): US OB BPP w non-stress Accession Number(s): [id number] cc: Catrachito Aiken D.O.; Physician,Non-Staff Farhat The [place] [id number] Patient Name: LUCILA JACQUES MRN: [facility]:[id number] date: 1990 Sex: F Assigned Patient Location: [facility] Current Patient Location: Accession/Order Number: [id number] Exam Date: 11/21/2024 18:27 Report Date: 11/21/2024 [...] Ruddy Esquivel M.D.11/21/2024 6:32 PM Dictation Location: [place] [address] Electronically authenticated by: [id number] Y Date: 11/21/2024 18:32 Dictated By: Ruddy Esquivel M.D. Signed By: 11/21/241834 DD/ 31 TD/TT: Precipitate Washer: [employer] OB GROWTHon 11-21-2024 [place] [address] Ultrasound Report Signed Patient: LUCILA JACQUES MR#: [id number] : 1990 Acct:[id number] Age/Sex: 34 / F ADM Date: Loc: [facility] [address]: Catrachito Aiken D.O. Ordering Physician: Catrachito Aiken D.O. Date of Service: 11/21/24 Procedure(s): US OB growth Accession Number(s): [id number] cc: Catrachito Aiken D.O.; Physician,Non-Staff Farhat The [place] [id number] Patient Name: LUCILA JACQUES MRN: [id number]:[id number] date: 1990 Sex: F Assigned Patient Location: [facility] Current Patient Location: Accession/Order Number: [id number] Exam Date: 11/21/2024 18:27 Report Date: 11/21/2024 [...] Ruddy Esquivel M.D.11/21/2024 6:32 PM Dictation Location: [place] [address] Electronically authenticated by: [id number] Y Date: 11/21/2024 18:32 Dictated By: Ruddy Esquivel M.D. Signed By: 11/21/241834 DD/ 31 TD/TT: Precipitate Washer: [facility] Radiology, Radiologi MD kevin - 11/21/2024 [place] [address] Ultrasound Report Signed Patient: LUCILA JACQUES MR#: [id number] : 1990 Acct:[id number] Age/Sex: 34 / F ADM Date: Loc: [facility] 250-[address]: Catrachito Aiken D.O. Ordering Physician: Catrachito Aiken D.O. Date of Service: 11/21/24 Procedure(s): US OB growth Accession Number(s): [id number] cc: Catrachito Aiken D.O.; Physician,Non-Staff Farhat The [place] [address] Patient Name: LUCILA JACQUES MRN: [id number] date: 1990 Sex: F Assigned Patient Location: [facility] Current Patient Location: Accession/Order Number: [id number] Exam Date: 11/21/2024 18:27 Report Date: 11/21/2024 [...] Ruddy Esquivel M.D.11/21/2024 6:32 PM Dictation Location: [place] [address] Electronically authenticated by: [id number] Y Date: 11/21/2024 18:32 Dictated By: Ruddy Esquivel M.D. Signed By: 11/21/241834 DD/ 31 TD/TT: Precipitate Washer: [facility] Urinalysis macro (dipstick) panel (U)on 11-21-2024 Bilirubin, UA Positive Negative - 4(70) +++ mg/dL [facility] Comment on above: small Blood, UA Negative Negative - 50 Asif/mcL [facility] Clarity, UA Clear [facility] Color, UA Bibiana [facility] Glucose, UA Negative Negative - 1999(110) ++++ mg/dL [facility] Interpretation and review of laboratory results Abnormal [facility] Ketones, UA Positive Negative - 160(16) ++++ mg/dL [facility] Comment on above: trace Leukocytes, UA Negative Negative - 500+++ Shivani/mcL [facility] Nitrite, UA Negative Negative - Positive [facility] pH, UA 5.5 5 - 9 [facility] Protein, UA Positive Negative - 1999(20) ++++ mg/dL [facility] Comment on above: 30 Spec Grav, UA 1.03 1 - 1.03 [facility] Urobilinogen, UA 1.0 0.2 - 12 mg/dL [facility] Coding Summaryon 11-11-2024 Coding Summary HTMLBase 64 BosfnyciOHo1gMr+PGhlYWQ+PE1 PMCLpG06etGKjaD6cJ7OGZOsZAn kgGVBDKArTGmXapnMzNN3svJYtI XJu IC8+BG5nROWvRjmsjNSlv8G6iNG 2E64hkn4wWJsanJS5NVDyDeBovk zvd2cgkRb6DTdsRdijHrJp DLKjoE14AYO5dK08Eq97lMNprUQ ym4jxoNf5IwJzPJNpSSG6dItoPT isx8TsULJpP26cjJGhh4Y5 SWWueJxvaOPsOaRplCD1gA8tSUs arkmta1omvwniDgu4yp87kRAct4 E6kAN7M4QjkzZ6DJTjtQSw ObjojTOUaS6walslp5gqsuqlJjV vYFGpSWt2DXv8AWKinOqfYwOqRQ 21JDK0UXRgqbQdL2BsHTHr cYsjItI7k0V6Rw7CL1DSJhzxN0O NTUFSWTwvdGQ+ZT29bh02Y7EiHs ajThr3DYBmXZT6kEU3vQ8h LKXnXMgbo6J8pAG6T5JiieMsab8 ke8gpICWaXYjuD28wvALdc0G1LO UiwWL3ISIgvTihCuEswN90 Oyc+DKBlqDvuo2UnKiirr8bmr2n qnMp1FqkxGKVcptZyrXqiENU5k9 QfZu9nORHjwRD6kMU5iS4w UoCaBuY0DKnbV639BzUqpLWtBhr pA04aA2BrcGS+JQEcTcq7UNFnrG hmAH9iC7HuRGMyozcncKPv cErhHY7hDUAwjewrFIJriL1sOPR eT0p2SeIaKcD4KJdvG8QwQALujw rlDn54qQ3nJfKqOxR7OJnh O3XepsN7VEXlcLGyHPcyYUD7Z63 li2M5XUYzQDXePVZ7dNN5lY4njL lnbjogbGVmdDsgdmVydGlj SCgjJLrsS597ZBOxyXlxWsAvGYs uZyBEYXRlOiAgMDIvMTcvMjAyNT wvdGQ+ETVlNZY8rGyoDYXd uPLzKTagXe9tpHwpeYliJW8aEUL fqldiIIVvdR0iXWZquGCtlRwlUF 9oJZLqcqufh438KsHxWNJ1 JHFzvYRyG7YlnI9iJpKkDWMzOEJ eY0ZfeISsJTdpI256GQtcDfM6MU VeiwNuJ1WoQJXbqNtaXkX8 y4Y4Kw4Wz0UbpborL4ZpmNEsPfE cAmcqTBz0W9QgPsdaoPE+PC90YW MzJP50QVi4JJT1eBlaGDpj WOUoY9KcdR1bArOzHXPrWKWfPqs +PHRhYmxlIHdpZHRoPScxMDAlJy LmdVhvQF4pUl3nZOVkTNOh tTnjpIPaQxOfe0ahJAWfIInzTH3 fhRwqO5PaxSY9UOAvp0t2Jc65F4 8pZ9JugGX+UJCdqDB3wBW8 dY5kSxSqZxA9TWgdG787YxTnnVG qLleoa9qhq7vbhNe5KdV4YFYovp YrgXuzTUD8d9DbLs78A11b IHdpZHRoPSIxNSUiIHZhbGlnbj0 sqR6wBz9+YRJjjGX3lOG1tK1gGz MgKnW5KAivY892NoYbfLRc Rmcle1gng5relXk4QoAxYKNpokQ efFuaJFV2y4HwLd09X8XyhPpnl1 ImGyc2mf71yQCoj6G3lDC4 M9WkWBSgjhhggSTkcCstVM0tHTA hqppgCMKwiS0vUEDvH5u8JsBiSl H3AIvdW5AkupJ6KBIgiBJa XEUbwAOQxB9gfaczu6nbtegiOvM aOTYoWQb9SXt3IQVvhYtmJsUaOQ M2BaT6TID5zUXcuV7raZwj btinlA2nZvj+NIG0lSNknVAQAA7 lOjwvdGQ+YCHiXRW2rCjkVYudOV RopV6xTIPiT8t6MeLuGuB8 GSqtJ2MrxtX9GQHkhVKlDBByyZC QpX4nzrhup0ealibcKwMpMJRsVW e0TXb7ZDSbwIsaFqPlXDO3 XxM4HLX4eIWecY7eqFyizaqbwJ9 wOyc+NsblmVczORM7CXm6P8SeAo q7SNYmlTpwBI2hjPAwCCzt Rm8vwUsaeFpdVR0aJLAvxhqwf88 7QwVam5zhHBDreMTyJYyvSXY0E4 7dk4U9ZPOgKWCgACA6gNL2 tC8quHszlmpzpYLkoTqpwiTkxRi xSRkvKTpwZ320DGZwzTbjVuFyTK r5X5JuUja7JQNksMsoIW9k vJTvSFpuZu5ofFawhBzuII5qYIR qpvryn404AaQqz0jrQVNjrODqNQ poFSX9Q49kc9R8NTEpXGWc WTI1eHM2vR3mqNnsyqqosMVruSy bexRseWhcMDpySObgQ003WGXwmT pbJwIueZs4N7CeYea2FYIi uAwgHO7brBEbHKcqRr4qlYvlkSs vKD0sBLNisuefz263FdNsp6piVY MexZBtULyuIFE9V10mx4J8 LUExNOTzQWX0tZD7qX6qzSwlhzy gbGVmdDsgdmVydGljYWwtYWxpZ2 46IHRvcDsnPlBhdGllbnQg JZrtZJs4V7IzXdkxcGQ+ZA54DTH yXQ40uNNbbOJuf3uzrEp6NjWjIY AhVLC8oYrvTFhjj3SoRXPw N59moFFte2Z0SLRvjUymsDQnYcG zuMZ6lO9qUZtmqsstm7bxzvuaKx gpu8utsb84nM82E82gREjp DCNrUEAnEGRmWHDweJfems7efL7 wIi8+BWGxgZO6dTI0bI5vSRWsJr K5FQjzM943UxQqzKDhLywq u6hzm7mycAc4AkX2JWIxwrXenGu aJER5a1VaXy31N89aLLivNMZjDZ LqJKXiWMTtlZwabu3iuY1s Ii8+QBTvhTA9hSV4iA3wYcOeGrI 5LImmW228AdDkzBYhSgryU80eL3 JvdXA+ENZsNnk3ZRXgqIpe HX5yeBRvNCoqOr3dXYT6ZxTaEoI wQLkcG6WiNDLbzfeivjptxMS3RO GmDIWvhO81Wg3cbJheXUEq zPBZzJ8fepheu3urujskWuJhRDU lHVw4PNq1HGAuyLzbNyFqGCL6Sm U9DCU1nJMefT0tmEaxdxtp cD2gP4WqHCNvieeqCe20zU6zSsX wWfF5THbyIck+TzJFLqzwQ9ZWHL xYKkKRTPQ3Y6EpNli7CIRk lXhzUN0idTFpGMmpGu6xrAuwrDl aMR5yQKGwkwkxKPCqaP1rEEFtfO NieKpqNH5uALZxjbywn824 RsSyJVM5YSQppJSkR4KwqU1fLgZ fRLRhERDoB6JsxKRsNWooN553MZ dwBqW8XKUbnsZdK3WxIQEw wArcGcW3k7M5Uv0iHK9uWf7xUCh 6NJ55BG14lOCea8Y6eZJ0F3GoPP SnjugfmsibtVA9QSYoGTBg aB04tSLtRBulNj4re9W3f486OGF gZXTxwW89Ri7fpFjbYPTcvDNIpK 8jtokmp7aeuxvoHgPuVIMn XXh6FTq4BWKsvMvzSiWjRJO4DqE 8COZ9pCShwG8dhSnjxvzjeR6jMd c+JiPzRUDgfaM2H0QgFiw2 BKEhmPicRP4laKMpWCanGn2juSx nmKsyTB4kWCCcmogzZMIsuC8cIH OpiZUxfIcsBM5yHQAipvyo m602OaEsEGL4YPJctOWsY2ZsiI2 aJjMeVSObHIZmB2BthHCmMWciQ6 48XOpiBiS7JVHlowEoF1Gy MMDzoSqfYlF9a1X4Gp5VJN7PZYN 8Q5VwObw0KFDwbVflJZ6cdZQmPW msBa0tjCcfsKudND8oFYUy iupbAVHuhU2uPZTjgKIscPcpMT3 vFDPsmnlwl525BoHkYCN5OQWykN HqK2SglK4jDeOuDOXgBQYy N7UheFRdGCoeK086EJtyWhQ6QGV yylFrJ6SpWQWxqPcpDuO8k1G6Tk 5PUDwvdGQ+PL04dk63N9Lj WwheMri5BDDmIND3dKD4oO2hXBK dXLkkm6R9pXF5Q4DijqSiby7ag0 lsVLUnWHavF88bpERch3K7 JNWrmWE7JVXdxQofOrEnyZ84Fyi +RQIimKjsk6DuZxnve8yvf9npsV k9RoSvPVIwaiZoaKaqXPY6 m9KaDg47R64eBDerXKZrCDMwWZV eRCBmnNarpz7xxP2fPa6+PGNvbC Y0wTF2qM4pJqSeFhV4PXex J114SjJrhAGcGjqkq5cbk6lfcEl 2PaCuZQVjinIvzRurHIW4v1EkBk 41A3KqdVwdo5ScBqu8xt32 mGDep9Z8kOU8L1NfBGXlqnwqaSF mpMmeVW8nLIVxxcjsUGCuaR2xNF BbR7v1OzGlMxX5FDljF5Xi ebN4FMJyyZPgTUXufAYWtB5llej ob9hfoqcgIbDfTHSuWUd5CHi0NU NfjEkpFvTwXNI0IiX0XXW6 jOMgfZ8vxQmrefiqlZ3xKlv+UGh 9h7wbyRQyIX6dlPB7IH90ZN15sG Aml7X0mIA5V4YxJPNzqlxh libkmJR7TNZoYIZoeU05Gj2gxFa hVu3qZMJwKCY6OSVskCCdG1KxgY 6gBjMmXXFzPTHzL3TmjOCe VRtfT381CVcaOrI5YGKrdfDsW6N hOCQjxZljOvT2e8B0Cd8QHH88UA 90PF32eCMwv9M1pEZ9U2Kk ZSJvmqsvtdpbeNR1TTFuEIEnvA0 9Cr6lmAmtCa5vZDLxGZA1XFYheQ ZvT6IywU9hInKuXRYnFDPc L1FytMKoHYvsI713GRsaOkF7WAT oqiUvZ9RjRMIuxQukGfZ8u3L4Jd 9AFr98ZA12FB07yHBfp8K0 jVN1H8AlXMWsnxkiacogzNA3RVB bXFAnpH22Pq7yoWqyEu7rJWNbAR D5XZRetYJdZ0MfwF5jQfLd RBWxGEHyJ6UyrMPwPOqiO489BNp hNjR1YIWabyBvC4VrTKMiiTdpUm C7r5S7Bt4ZVAomrvd9G0Xz PjwvdHI+QP80ZRZsZY14gEKfcXE ll2zehNf7ZbTnWWAsVEQ4yWjxWM egr9MjSJPrR32kxSZny2X6 IGN (more content not included)... Normal [facility] Urinalysis macro (dipstick) panel (U)on 11-07-2024 Bilirubin, UA Positive Negative - 4(70) +++ mg/dL [facility] Comment on above: small Blood, UA Negative Negative - 50 Asif/mcL [facility] Clarity, UA Clear [facility] Color, UA Yellow [facility] Glucose, UA Negative Negative - 1999(110) ++++ mg/dL [facility] Interpretation and review of laboratory results Abnormal [facility] Ketones, UA Positive Negative - 160(16) ++++ mg/dL [facility] Comment on above: 40mg/dL Leukocytes, UA Negative Negative - 500+++ Shivani/mcL [facility] Nitrite, UA Negative Negative - Positive [facility] pH, UA 6 5 - 9 [facility] Protein, UA Positive Negative - 1999(20) ++++ mg/dL [facility] Comment on above: 30mg/dL Spec Grav, UA 1.025 1 - 1.03 [facility] Urobilinogen, UA 1.0 0.2 - 12 mg/dL [facility] ALL CBC WITH AUTO DIFFon BASOPHILS ABSOLUTE AUTO 0 [facility] Basophils/100 WBC (Bld) 0.3 % 0.2 - 2.0 % [facility] Eosinophils/100 WBC (Bld) 1.6 % 0.9 - 7.0 % [facility] Erythrocyte distribution width (RBC) [Ratio] 12.8 % 11.0 - 15.0 % [facility] Hematocrit (Bld) [Volume fraction] 33.8 % Low 36.0 - 48.0 % [facility] Hemoglobin (Bld) [Mass/Vol] 11.4 g/dL Low 12.0 - 16.0 g/dL [facility] IMMATURE GRANULOCYTES ABS AUTO 0.05 High [facility] Immature granulocytes/100 WBC (Bld) 0.5 % 0.0 - 0.5 % [facility] Interpretation and review of laboratory results Abnormal [facility] LYMPHOCYTES ABSOLUTE AUTO 1.9 [facility] Lymphocytes/100 WBC (Bld) 18.6 % Low 20.5 - 60.0 % [facility] MCH (RBC) [Entitic mass] 29.8 pg 26.7 - 34.0 pg [facility] MCHC (RBC) [Mass/Vol] 33.7 g/dL 29.9 - 35.2 g/dL [facility] MCV (RBC) [Entitic vol] 88.5 fL 81.0 - 99.0 fL [facility] MONOCYTES ABSOLUTE AUTO 0.9 High [facility] Monocytes/100 WBC (Bld) 8.6 % 1.7 - 12.0 % [facility] NEUTROPHILS ABSOLUTE AUTO 7.3 High [facility] Neutrophils/100 WBC (Bld) 70.4 % 43.0 - 75.0 % [facility] Platelet mean volume (Bld) [Entitic vol] 8.9 fL Low 9.5 - 13.5 fL [facility] TBH EO # 0.2 [facility] TB PLT 228 [facility] TB RBC 3.82 Low [facility] TB WBC 10.4 [facility] CLINISYNC [facility] Urinalysis macro (dipstick) panel (U)on 10-01-2024 Bilirubin, UA Negative Negative - 4(70) +++ mg/dL [facility] Blood, UA Negative Negative - 50 Asif/mcL [facility] Clarity, UA Clear [facility] Color, UA Yellow [facility] Glucose, UA Negative Negative - 1999(110) ++++ mg/dL [facility] Interpretation and review of laboratory results Abnormal [facility] Ketones, UA Positive Negative - 160(16) ++++ mg/dL [facility] Leukocytes, UA Negative Negative - 500+++ Shivani/mcL [facility] Nitrite, UA Negative Negative - Positive [facility] pH, UA 6.5 5 - 9 [facility] Protein, UA Negative Negative - 1999(20) ++++ mg/dL [facility] Spec Grav, UA 1.025 1 - 1.03 [facility] Urobilinogen, UA 1.0 0.2 - 12 mg/dL [facility] AFP, SERUM, OPEN SPINA BIFID Aon 08-14-2024 AFP MOM 1.32 . [facility] AFP VALUE 43.5 ng/mL . [facility] COMMENT: Comment . [facility] Comment on above: Irena Jones , Ph.D., [facility] Director References: Available Upon Request. Multiples Of Median Cutoffs For AFP Elevations Vela 2.5 Black 2.8 IDD 2.0 Twins 4.5 Abbreviation Definitions IDD - Insulin Dep Diabetes OSBR - Open Spina Bifida Risk For further inquiries contact [facility] [facility] at [phone]. This test was developed and its performance characteristics determined by [employer]. It has not been cleared or approved by the Food and Drug Administration. Performed at: [facility] [address] [place], [place] [id number] Job Lithographer: Hellen Hinson [facility], Phone: [phone] GEST. AGE ON COLLECTION DATE 18.1 . weeks [facility] GESTAT. AGE BASED ON Ultrasound . [facility] Comment on above: 18.1 on 08/12/2024 Recalculations are not recommended when gestational dating by LMP and ultrasound are within 10 days. INSULIN DEP DIABETES No . [facility] INTERPRETATION Comment . [facility] Comment on above: Interpretation: Scre en Negative [...] Customer Services to discuss available options. [employer] recommends amniocentesis be offered to women age 35 and older. [age] [facility] MULTIPLE GESTATION No . [facility] OSBR RISK 1 IN 4529 . [facility] RACE . [facility] RESULTS Report . [facility] TEST RESULTS: Negative . [facility] WEIGHT 239 . lbs [facility] N N ULTRASOUND [id number] 1 18 N 1 Y 239 N N N N N White/ [facility]IN[facility] Urinalysis macro (dipstick) panel (U)on 08-12-2024 Bilirubin, UA Negative Negative - 4(70) +++ mg/dL [facility] Blood, UA Negative Negative - 50 Asif/mcL [facility] Clarity, UA Clear [facility] Color, UA Yellow [facility] Glucose, UA Negative Negative - 2000(110) ++++ mg/dL [facility] Interpretation and review of laboratory results Abnormal [facility] Ketones, UA Positive Negative - 160(16) ++++ mg/dL [facility] Comment on above: trace Leukocytes, UA Negative Negative - 500+++ Shivani/mcL [facility] Nitrite, UA Negative Negative - Positive [facility] pH, UA 6 5 - 9 [facility] Protein, UA Negative Negative - 2000(20) ++++ mg/dL [facility] Spec Grav, UA 1.015 1 - 1.03 [facility] Urobilinogen, UA 0.2 0.2 - 12 mg/dL [facility] Urinalysis macro (dipstick) panel (U)on 07-16-2024 Bilirubin, UA Negative Negative - 4(70) +++ mg/dL [facility] Blood, UA Negative Negative - 50 Asif/mcL [facility] Clarity, UA Clear [facility] Color, UA Yellow [facility] Glucose, UA Negative Negative - 2000(110) ++++ mg/dL [facility] Interpretation and review of laboratory results Normal [facility] Ketones, UA Negative Negative - 160(16) ++++ mg/dL [facility] Leukocytes, UA Negative Negative - 500+++ Shivani/mcL [facility] Nitrite, UA Negative Negative - Positive [facility] pH, UA 5.5 5 - 9 [facility] Protein, UA Negative Negative - 2000(20) ++++ mg/dL [facility] Spec Grav, UA 1.03 1 - 1.03 [facility] Urobilinogen, UA 0.2 0.2 - 12 mg/dL [facility] BLOOD UREA NITROGENon 2023 Urea nitrogen [Mass/Vol] 9 mg/dL Normal 5-23 [facility] Comment on above: Performed By: #### Joao CARABALLO, 3094-0, ROLLER SKATE ASSEMBLER, LIVR, 5193-8 #### [facility] ([id number]) [address], [address] [place] [address] CBC AND AUTO DIFFon 07-10-20 ABSOLUTE BASOPHIL 0.0 X10E9/L Normal 0.0-0.2 [facility] Comment on above: Performed By: #### Joao CARABALLO, 3094-0, ROLLER SKATE ASSEMBLER, LIVR, 5193-8 #### [facility] ([id number]) [address], [address] [place] [address] ABSOLUTE NEUTROPHIL 5.1 X10E9/L Normal 1.5-6.6 [facility] Comment on above: Performed By: #### Joao CARABALLO, 3094-0, ROLLER SKATE ASSEMBLER, LIVR, 5193-8 #### [facility] ([id number]) [address], [address] [place] [address] Basophils/100 WBC (Bld) 0.6 % Normal [facility] Comment on above: Performed By: #### Joao BCA, 3094-0, ROLLER SKATE ASSEMBLER, LIVR, 5193-8 #### [facility] ([id number]) [address], [address] [place] [address] Eosinophils (Bld) [#/Vol] 0.1 10*3/uL Normal 0.0-0.4 [facility] Comment on above: Performed By: #### C BCA, 3094-0, ROLLER SKATE ASSEMBLER, LIVR, 5193-8 #### [facility] ([id number]) [address] [place] [address] Eosinophils/100 WBC (Bld) 1.6 % Normal [facility] Comment on above: Performed By: #### C BCA, 3094-0, ROLLER SKATE ASSEMBLER, LIVR, 519-8 #### [facility] ([id number]) [address] [address] [place] [address] Erythrocyte distribution width (RBC) [Ratio] 13.1 % Normal 11.5-15.0 [facility] Comment on above: Performed By: #### C BCA, 3094-0, ROLLER SKATE ASSEMBLER, LIVR, 519-8 #### [facility] ([id number]) [address] [place] [address] Hematocrit (Bld) [Volume fraction] 39.1 % Normal 35-47 [facility] Comment on above: Performed By: #### C BCA, 3094-0, ROLLER SKATE ASSEMBLER, LIVR, 519-8 #### [facility] ([id number]) [address] [place] [address] Hemoglobin (Bld) [Mass/Vol] 13.4 g/dL Normal 11.7-15.5 [facility] Comment on above: Performed By: #### C BCA, 3094-0, ROLLER SKATE ASSEMBLER, LIVR, 5193-8 #### [facility] ([id number]) [address] [address] [place] [address] Lymphocytes (Bld) [#/Vol] 1.3 10*3/uL Normal 1.0-3.5 [facility] Comment on above: Performed By: #### C BCA, 3094-0, ROLLER SKATE ASSEMBLER, LIVR, 5193-8 #### [facility] ([id number]) [address], [address] [place] [address] Lymphocytes/100 WBC (Bld) 19.0 % Normal [facility] Comment on above: Performed By: #### C BCA, 3094-0, ROLLER SKATE ASSEMBLER, LIVR, 8 #### [facility] ([id number]) [address], [address] [place] [address] MCH (RBC) [Entitic mass] 30.6 pg Normal 27-34 [facility] Comment on above: Performed By: #### C BCA, 3094-0, ROLLER SKATE ASSEMBLER, LIVR, 8 #### [facility] ([id number]) [address], [address] [place] [address] MCHC (RBC) [Mass/Vol] 34.3 g/dL Normal 32-36 [facility] Comment on above: Performed By: #### Joao BCA, 3094-0, ROLLER SKATE ASSEMBLER, LIVR, 8 #### [facility] ([id number]) [address], [address] [place] [address] MCV (RBC) [Entitic vol] 89 fL Normal 80-100 [facility] Comment on above: Performed By: #### Joao BCA, 3094-0, ROLLER SKATE ASSEMBLER, LIVR, 8 #### [facility] ([id number]) [address], [address] [place] [address] Monocytes (Bld) [#/Vol] 0.5 10*3/uL Normal 0-0.9 [facility] Comment on above: Performed By: #### Joao BCA, 3094-0, ROLLER SKATE ASSEMBLER, LIVR, 519-8 #### [facility] ([id number]) [address], [address] [place] [address] Monocytes/100 WBC (Bld) 6.7 % Normal [facility] Comment on above: Performed By: #### Joao BCA, 3094-0, ROLLER SKATE ASSEMBLER, LIVR, 5192-8 #### [facility] ([id number]) [address], [address] [place] [address] Neutrophils/100 WBC (Bld) 72.1 % Normal [facility] Comment on above: Performed By: #### C BCA, 3094-0, ROLLER SKATE ASSEMBLER, LIVR, 5193-8 #### [facility] ([id number]) [address], [address] [place] [address] Platelet mean volume (Bld) [Entitic vol] 7.9 fL Normal 7-12 [facility] Comment on above: Performed By: #### C BCA, 3094-0, ROLLER SKATE ASSEMBLER, LIVR, 5193-8 #### [facility] ([id number]) [address], [address] [place] [address] Platelets (Bld) [#/Vol] 232 10*3/uL Normal 150-450 [facility] Comment on above: Performed By: #### C BCA, 3094-0, ROLLER SKATE ASSEMBLER, LIVR, 5193-8 #### [facility] ([id number]) [address], [address] [place] [address] RBC COUNT 4.37 X10E12/L Normal 3.80-5.20 [facility] Comment on above: Performed By: #### C BCA, 3094-0, ROLLER SKATE ASSEMBLER, LIVR, 5193-8 #### [facility] ([id number]) [address], [address] [place] [address] WBC (Bld) [#/Vol] 7.0 10*3/uL Normal 4.0-11.0 [facility] Comment on above: Performed By: #### C BCA, 3094-0, ROLLER SKATE ASSEMBLER, LIVR, 5193-8 #### [facility] ([id number]) [address], [address] [place] [address] CREATININEon 07-10-2024 Creatinine [Mass/Vol] 0.54 mg/dL Normal 0.40-1.00 [facility] Comment on above: Result Comment: METH OD TRACEABLE TO IDMS STANDARD Performed By: #### C BCA, 3094-0, ROLLER SKATE ASSEMBLER, LIVR, 5193-8 #### [facility] ([id number]) [address], [address] [address] eGFR (CKD-EPI) NON-RACE DEPENDENT >90 Normal >59 [facility] Comment on above: Result Comment: Reported eGFR is based on the CKD-EPI 2020 equation that does not use a race coefficient. Performed By: #### C BCA, 3094-0, ROLLER SKATE ASSEMBLER, LIVR, 5193-8 #### [facility] ([id number]) [address], [address] [address] HBV surface Ab IA Qnon 07-10 Anti HBs quant. <8.00 Normal [facility] Comment on above: Result Comment: Vacc inated: >=12mIU/mL, Positive (Immune) Unvaccinated: <8mIU/mL, Negative (Not Immune) 8-11.99 mIU/mL: Indeterminate, (Considered Not Immune) Performed By: #### C BCA, 3094-0, ROLLER SKATE ASSEMBLER, LIVR, 5193-8 #### [facility] ([id number]) [address] [address] LIVER PANELon 07-10-2024 Albumin [Mass/Vol] 3.8 g/dL Normal 3.2-5.3 [facility] Comment on above: Performed By: #### C BCA, 3094-0, ROLLER SKATE ASSEMBLER, LIVR, 5193-8 #### [facility] ([id number]) [address] [address] ALP [Catalytic activity/Vol] 44 U/L Normal 39-130 [facility] Comment on above: Performed By: #### C BCA, 3094-0, ROLLER SKATE ASSEMBLER, LIVR, 5193-8 #### [facility] ([id number]) [address], [address] [place] [address] ALT [Catalytic activity/Vol] 11 U/L Normal 0-31 [facility] Comment on above: Performed By: #### C BCA, 3094-0, ROLLER SKATE ASSEMBLER, LIVR, 5193-8 #### [facility] ([id number]) [address], [address] [place] [address] AST [Catalytic activity/Vol] 16 U/L Normal 0-41 [facility] Comment on above: Performed By: #### C BCA, 3094-0, ROLLER SKATE ASSEMBLER, LIVR, 5193-8 #### [facility] ([id number]) [address], [facility] [address] [place] [address] Bilirubin [Mass/Vol] 0.5 mg/dL Normal 0.3-1.2 [facility] Comment on above: Performed By: #### C BCA, 3094-0, ROLLER SKATE ASSEMBLER, LIVR, 5193-8 #### [facility] ([id number]) [address], [address] [place] [address] Bilirubin.direct [Mass/Vol] 0.1 mg/dL Normal 0.0-0.4 [facility] Comment on above: Performed By: #### C BCA, 3094-0, ROLLER SKATE ASSEMBLER, LIVR, 5193-8 #### [facility] ([id number]) [address], [facility] [address] [place] [address] Protein [Mass/Vol] 6.5 g/dL Normal 6.0-8.0 [facility] Comment on above: Performed By: #### C BCA, 3094-0, ROLLER SKATE ASSEMBLER, LIVR, 5193-8 #### [facility] ([id number]) [address], [facility] [address] [place] [address] Unlisted Lab TestOrdered By: Jaci Atwood on 06-26-2024 [facility] TOTAL PROTEIN 24 HOUR UR INEon 06-21-2024 Protein (U) [Mass/Vol] 11.3 mg/dL NINF - 11.9 mg/dL [facility] TOTAL PROTEIN 24 HOUR URINE 101.7 [facility] TOTAL VOLUME 24 HOUR URINE 900 mL/24hr [facility] Urinalysis macro (dipstick) panel (U)on 06-19-2024 Bilirubin, UA Negative Negative - 4(70) +++ mg/dL [facility] Blood, UA Negative Negative - 50 Asif/mcL [facility] Clarity, UA Clear [facility] Color, UA Yellow [facility] Glucose, UA Negative Negative - 1999(110) ++++ mg/dL [facility] Interpretation and review of laboratory results Normal [facility] Ketones, UA Negative Negative - 160(16) ++++ mg/dL [facility] Leukocytes, UA Negative Negative - 500+++ Shivani/mcL [facility] Nitrite, UA Negative Negative - Positive [facility] pH, UA 5.5 5 - 9 [facility] Protein, UA Negative Negative - 1999(20) ++++ mg/dL [facility] Spec Grav, UA 1.020 1 - 1.03 [facility] Urobilinogen, UA 1.0 0.2 - 12 mg/dL [facility] ALL CBC WITH AUTO DIFFon BASOPHILS ABSOLUTE AUTO 0.0 [facility] Basophils/100 WBC (Bld) 0.4 % 0.2 - 2.0 % [facility] Eosinophils/100 WBC (Bld) 1.3 % 0.9 - 7.0 % [facility] Erythrocyte distribution width (RBC) [Ratio] 12.5 % 11.0 - 15.0 % [facility] Hematocrit (Bld) [Volume fraction] 36.9 % 36.0 - 48.0 % [facility] Hemoglobin (Bld) [Mass/Vol] 12.4 g/dL 12.0 - 16.0 g/dL [facility] IMMATURE GRANULOCYTES ABS AUTO 0.02 [facility] Immature granulocytes/100 WBC (Bld) 0.3 % 0.0 - 0.5 % [facility] Interpretation and review of laboratory results Abnormal [facility] LYMPHOCYTES ABSOLUTE AUTO 1.2 [facility] Lymphocytes/100 WBC (Bld) 17.0 % Low 20.5 - 60.0 % [facility] MCH (RBC) [Entitic mass] 29.9 pg 26.7 - 34.0 pg [facility] MCHC (RBC) [Mass/Vol] 33.6 g/dL 29.9 - 35.2 g/dL [facility] MCV (RBC) [Entitic vol] 88.9 fL 81.0 - 99.0 fL [facility] MONOCYTES ABSOLUTE AUTO 0.4 [facility] Monocytes/100 WBC (Bld) 6.0 % 1.7 - 12.0 % [facility] NEUTROPHILS ABSOLUTE AUTO 5.3 [facility] Neutrophils/100 WBC (Bld) 75.0 % 43.0 - 75.0 % [facility] Platelet mean volume (Bld) [Entitic vol] 10.0 fL 9.5 - 13.5 fL [facility] EO # 0.1 [facility] PLT 173 [facility] RBC 4.15 Low [facility] WBC 7.1 [facility] XR knee LT 3V - NOT FOR ER U Yuridia 06-11-2024 XR knee LT 3V - NOT FOR ER USE [facility] [address] [place] [address] XRay Report Signed Patient: Lucila Jacques MR#: [id number] 31 : 1990 Acct:[id number] Age/Sex: 33 / F ADM Date: 06/11/24 Loc: [facility] Room: Type: [facility] Attending Dr: Santa Estrada II, MD Copies [...] Vikki Rivers M.D.06/11/2024 2:26 PM Dictation Location: [place] [address] Transcribed By: [facility] 06/11/24 142 Dictated By: Vikki Rivers MD 06/11/241421 Signed By: 06/11/24 142 Normal [facility] HCG ( test) Ql [...] on 04-29-2024 Amphetamines Ql (U) Negative Negative [facility] Barbiturates [Presence] in U rine by Screen methodOrdered By: Yusef Curran on 04-29-2024 Barbiturates Screen Ql (U) Negative Negative [facility] Benzodiazepines Screen Ql (U )Ordered By: Yusef Curran on 04-29-2024 Benzodiazepines Ql (U) Negative Negative [facility] Benzoylecgonine [Presence] i n Urine by Screen methodOrdered By: Yusef Curran on 04-29-2024 Benzoylecgonine Screen Ql (U) Negative Negative [facility] Cannabinoids [Presence] in U rine by Screen methodOrdered By: Yusef Curran on 04-29-2024 Cannabinoids Screen Ql (U) Negative Negative [facility] Comment on above: These are unconfirme d results and should not be used for legal purposes. Drug Cut-Off Concentration: AMPH 1000 ng/mL SILVIA 200 ng/mL DARLYN 200 ng/mL COCM 300 ng/mL OP 300 ng/mL PCP 25 ng/mL THC 20 ng/mL Drug Screen,Urineon 04-29-20 24 Amphetamine Screen,Urine Negative Normal Negative [facility] Comment on above: Performed By: #### A 1C WTH eA, ALB, [id number], HGB #### [place] [address] [place] #### NICOTINE #### [facility] , Barbiturate Screen,Urine Negative Normal Negative [facility] Comment on above: Performed By: #### A 1C WTH eA, ALB, [id number], HGB #### [place] [address] [place] #### NICOTINE #### [facility] , Benzodiazepines Screen,Urine Negative Normal Negative [facility] Comment on above: Performed By: #### A 1C WTH eA, ALB, [id number], HGB #### [place] [address] [place] #### NICOTINE #### [facility] , Cannabinoid Screen,Urine Negative Normal Negative [facility] Comment on above: Result Comment: Thes e are unconfirmed results and should not be used for legal purposes. Drug Cut-Off Concentration: AMPH 1000 ng/mL SILVIA 200 ng/mL DARLYN 200 ng/mL COCM 300 ng/mL OP 300 ng/mL PCP 25 ng/mL THC 20 ng/mL PERFORMED BY: [place] [address] PATHOLOGIST INSTRUCTION LIBRARIAN GENO BENEDICT M.D. Performed By: #### A 1C WTH eA, ALB, [id number], HGB #### [address] #### NICOTINE #### [facility] , Cocaine Screen,Urine Negative Normal Negative [facility] Comment on above: Performed By: #### A 1C WTH eA, ALB, [id number], HGB #### [place] [address] [place] #### NICOTINE #### [facility] , Opiate Screen,Urine Negative Normal Negative [facility] Comment on above: Performed By: #### A 1C WTH eA, ALB, [id number], HGB #### [address] #### NICOTINE #### [facility] , Phencyclidine Screen,Urine Negative Normal Negative [facility] Comment on above: Performed By: #### A 1C WTH eA, ALB, [id number], HGB #### [address] #### NICOTINE #### [facility] , HCG ( test) IA.rapi d Ql (U)Ordered By: Yusef Curran on 04-29-2024 HCG ( test) Ql (U) Negative [facility] HCG,Urineon 04-29-2024 Beta HCG ( test) Ql (U) Negative Normal [facility] Comment on above: Result Comment: PERF ORMED BY: [place] [address] PATHOLOGIST INSTRUCTION LIBRARIAN GENO BENEDICT M.D. Performed By: #### U HCG #### [address] [place] 04-29-2024 L Specimen: [id number] Received: 04/29/24 Status: SOUT Req Num: [id number] Spec Type: Surgical Subm Dr: Santa Estrada MD Tissues: A Joint/Knee (LT KNEE) Procedures: HE, Gross/Micro L4, Decalcification Age/ Patient Sex Location Account Attending Physician Lucila Jacques R 33/F [place] [id number] Santa Estrada MD SPEC NUM: [id number] RECD: 04/29/24 STATUS: MICHAEL YOUNG NUM: [id number] NIELS: 04/29/24- SUBM DR: Santa Estrada MD ENTERED: 04/29/[address] [facility] [address]: SPEC TYPE: Surgical DEPT: S [...] examination, no sections are submitted. CPT Codes 92488 Specimen: [id number] Received: 04/29/24 Status: ANUPAMABrunilda Young Num: [id number] Spec Type: Surgical Subm Dr: Santa Estrada MD Tissues: A Joint/Knee (LT KNEE) Procedures: HE, Gross/Micro L4, Decalcification Patient: Lucila Jacques [id number] (Continued) Specimen: [id number] Received: 04/29/24 (Continued) Signed (signature on file) ChinNessa Trevizo MD 05/07/24 1703 Specimen: [id number] Received: 04/29/24 Status: MICHAEL Young Num: [id number] Spec Type: Surgical Subm Dr: Santa Estrada MD Tissues: A Joint/Knee (LT KNEE) Procedures: VIKASH Gross/Nithya L4, Decalcification Patient: Lucila Jacques [id number] (Continued) Specimen: [id number] Received: 04/29/24 (Continued) BONE AND TISSUE Specimen: [id number] Received: 04/29/24 Status: MICHAEL Young Num: [id number] Spec Type: Surgical Subm Dr: Santa Estrada MD Tissues: A Joint/Knee (LT KNEE) Procedures: VIKASH Gross/Nithya L4, Decalcification Patient: Lucila Jacques [id number] (Continued) Signed (signature on file) Jamia Trevizo MD 05/07/24 1703 Normal [facility] Opiates [Presence] in Urine by Screen methodOrdered By: Yusef Curran on 04-29-2024 Opiates Screen Ql (U) Negative Negative [facility] Phencyclidine Screen Ql (U)O rdered By: Yusef Curran on 04-29-2024 Phencyclidine Ql (U) Negative Negative [facility] XR knee LT 2Von 04-29-2024 XR knee LT 2V [facility] [place] [address] XRay Report Signed Patient: Lucila Jacques MR#: [id number] 31 : 1990 Acct:[id number] Age/Sex: 33 / F ADM Date: 04/29/24 Loc: [place] Room: Type: [facility] Attending Dr: Santa Estrada II, MD [...] Harmeet Lopez M.D.04/29/2024 2:44 PM Dictation Location: [place] [address] Transcribed By: [facility] 04/29/24 1444 Dictated By: Harmeet Lopez DO 04/29/24 144 Signed By: 04/29/24 144 Normal [facility] XR tibia fibula LT 2V*on XR tibia fibula LT 2V* [facility] [address] [place] [address] XRay Report Signed Patient: Lucila Jacques MR#: [id number] 31 : 1990 Acct:[id number] Age/Sex: 33 / F ADM Date: 04/19/24 Loc: [facility] [place] Room: Type: [facility] Attending Dr: Santa Estrada II, MD Copies to: Santa Estrada MD Ordering Provider: Santa Estrada MD Date of Service: 04/19/24 XR/XR tibia fibula LT 2V*: M17.12 - Unilateral primary osteoarthritis, left knee ([id number]) XR/XR femur LT 2V*: M17.12 - Unilateral [...] Harmeet Lopez M.D.04/19/2024 9:52 AM Dictation Location: [place] [address] Transcribed By: [facility] 04/19/24 0952 Dictated By: Harmeet Lopez DO 04/19/24 0950 Signed By: 04/19/24 0952 Normal [facility] Cytology Cervical or vaginal smear or scraping studyon 04-16-2024 [facility] Automated basophil %Ordered By: Santa Estrada on 04-15-2024 Basophils/100 WBC (Bld) 0.7 % . [facility] Comment on above: Performed By: #### B MP, CBC #### [place] [address] [place] #### NICOTINE, FRUC #### [facility] , Automated basophil countOrde red By: Santa Estrada on 04-15-2024 Basophils (Bld) [#/Vol] 0.0 10*3/uL 0.0-0.2 [facility] Comment on above: Result Comment: PERF ORMED BY: [place] [address] PATHOLOGIST INSTRUCTION LIBRARIAN GENO BENEDICT M.D. Performed By: #### B MP, CBC #### [place] [address] [place] #### NICOTINE, FRUC #### [facility] , Automated blood monocyte cou ntOrdered By: Santa Estrada on 04-15-2024 Monocytes (Bld) [#/Vol] 0.3 10*3/uL 0.0-0.8 [facility] Comment on above: Performed By: #### B MP, CBC #### [place] [address] [place] #### NICOTINE, FRUC #### [facility] , Automated eosinophil %Ordere d By: Santa Estrada on 04-15-2024 Eosinophils/100 WBC (Bld) 3.0 % . [facility] Comment on above: Performed By: #### B MP, CBC #### [place] [address] [place] #### NICOTINE, FRUC #### [facility] , Automated eosinophil countOr dered By: Santa Estrada on 04-15-2024 Eosinophils (Bld) [#/Vol] 0.1 10*3/uL 0.0-0.45 [facility] Comment on above: Performed By: #### B MP, CBC #### [facility] [address] [place] [address] [place] #### NICOTINE, FRUC #### [facility] , Automated monocyte %Ordered By: Santa Estrada on 04-15-2024 Monocytes/100 WBC (Bld) 7.6 % . [facility] Comment on above: Performed By: #### B MP, CBC #### [place] [address] [place] #### NICOTINE, FRUC #### [facility] , Automated neutrophil %Ordere d By: Santa Estrada on 04-15-2024 Neutrophils/100 WBC (Bld) 55.1 % . [facility] Comment on above: Performed By: #### B MP, CBC #### [place] [address] [place] #### NICOTINE, FRUC #### [facility] , Basic Metabolic Panelon 03-26 GFR/1.73 sq M.predicted MDRD (S/P/Bld) [Vol rate/Area] mL/min/{1.73_m2} Normal [facility] Comment on above: Performed By: #### A 1C WTH eA, ALB, [id number], HGB #### [place] [address] [place] #### NICOTINE #### [facility] , Bilirubin Test strip Ql (U)O rdered By: Santa Estrada on 04-15-2024 Bilirubin Ql (U) Negative Negative [facility] Calcium [Mass/volume] in Ser um or PlasmaOrdered By: Santa Estrada on 04-15-2024 Calcium [Mass/Vol] 9.0 mg/dL 8.6-10.3 [facility] Comment on above: Result Comment: PERF ORMED BY: [place] [address] PATHOLOGIST INSTRUCTION LIBRARIAN GENO BENEDICT M.D. Performed By: #### A 1C WTH eA, ALB, [id number], HGB #### [place] [address] [place] #### NICOTINE #### [facility] , Carbon dioxide, total [Moles /volume] in Serum or PlasmaOrdered By: Santa Estrada on 04-15-2024 CO2 [Moles/Vol] 26.3 mmol/L 21.0-31.0 [facility] Comment on above: Performed By: #### A 1C WTH eA, ALB, [id number], HGB #### [address] #### NICOTINE #### [facility] , Chloride [Moles/volume] in S liam or PlasmaOrdered By: Santa Estrada on 04-15-2024 Chloride [Moles/Vol] 106 mmol/L 98-107 [facility] Comment on above: Performed By: #### A 1C WTH eA, ALB, [id number], HGB #### [address] #### NICOTINE #### [facility] , Color of Urine by AutoOrdere d By: Santa Estrada on 04-15-2024 Color (U) Yellow Yellow [facility] Comment on above: Order Comment: Name Collection Type:: Clean-Voided Midstream Performed By: #### U A #### [address] Complete Blood Count Auto Di ffon 04-15-2024 Mean Corpuscular HGB Conc 34.0 g/dL Normal 32.0-35.0 [facility] Comment on above: Performed By: #### B MP, CBC #### [place] [address] [place] #### NICOTINE, FRUC #### [facility] , NRBC% 0.1 /100{WBC} Normal 0-0.5 [facility] Comment on above: Performed By: #### B MP, CBC #### [place] [address] [place] #### NICOTINE, FRUC #### [facility] , Cotinine [Mass/volume] in Se rum or PlasmaOrdered By: Santa Estrada on 04-15-2024 Cotinine [Mass/Vol] <1.0 ng/mL . [facility] Comment on above: This test was develo ped and its performance characteristicsdetermined by [employer]. It has not been cleared orapproved by the Food and Drug Administration.Cotinine levels greater than 20.0 are consistent with theuse of tobacco or tobacco cessation products.Performed at: [facility] [address] [id number] Director: Marcellus Dave MD, Phone: [phone] Creatinine [Mass/volume] in Serum or PlasmaOrdered By: Santa Estrada on 04-15-2024 Creatinine [Mass/Vol] 0.65 mg/dL 0.60-1.20 [facility] Comment on above: Performed By: #### A 1C WTH eA, ALB, [id number], HGB #### [facility] [address] [place] [address] #### NICOTINE #### [facility] , Erythrocyte distribution wid th [Ratio] by Automated countOrdered By: Santa Estrada on 04-15-2024 Erythrocyte distribution width (RBC) [Ratio] 13.2 % 11.9-15.3 [facility] Comment on above: Performed By: #### B MP, CBC #### [facility] [address] [place] [address] #### NICOTINE, FRUC #### [facility] , Erythrocytes [#/volume] in B lood by Automated countOrdered By: Santa Estrada on 04-15-2024 RBC (Bld) [#/Vol] 4.52 10*6/uL 3.60-5.00 [facility] Comment on above: Performed By: #### B MP, CBC #### [facility] [address] [place] [address] [place] #### NICOTINE, FRUC #### [facility] , Fructosamineon 04-15-2024 Fructosamine 219 umol/L Normal 0-285 [facility] Comment on above: Result Comment: Publ ished reference interval for apparently healthy subjects between age 20 and 60 is 205 - 285 umol/L and in a poorly controlled diabetic population is 228 - 563 umol/L with a mean of 396 umol/L. Performed at: [facility] [address] [place], [place] [id number] Job Lithographer: Dario West PhD, Phone: [phone] Performed By: #### A 1C WTH eA, ALB, [id number], HGB #### [address] #### NICOTINE #### [facility] , Fructosamine [Moles/volume] in Serum or PlasmaOrdered By: Santa Estrada on 04-15-2024 Fructosamine [Moles/Vol] 219 umol/L 0-285 [facility] Comment on above: Published reference interval for apparently healthysubjects between age 20 and 60 is 205 - 285 umol/L and in apoorly controlled diabetic population is 228 - 563 umol/Lwith a mean of 396 umol/L.Performed at: [employer] [facility] [id number] Director: Dario West PhD, Phone: [phone] Glucose [Mass/volume] in Ser um or PlasmaOrdered By: Santa Estrada on 04-15-2024 Glucose [Mass/Vol] 88 mg/dL 70-100 [facility] Comment on above: ADA recommended refe rence rangeRandom Glucose Reference Range is dependent on time and content of last meal. Glucose of more than 200 mg/dL in a nonstressed, ambulatory subject supports the diagnosis of Diabetes Mellitus. Result Comment: [place] om Glucose Reference Range is dependent on time and content of last meal. Glucose of more than 200 mg/dL in a nonstressed, ambulatory subject supports the diagnosis of Diabetes Mellitus. ADA recommended reference range Performed By: #### A 1C WTH eA, ALB, [id number], HGB #### [place] [address] [place] #### NICOTINE #### [facility] , Hematocrit [Volume Fraction] of Blood by Automated countOrdered By: Santa Estrada on 04-15-2024 Hematocrit (Bld) [Volume fraction] 40.4 % 34.0-46.4 [facility] Comment on above: Performed By: #### B MP, CBC #### [facility] [address] [place] [address] [place] #### NICOTINE, FRUC #### [facility] , Hemoglobin [Mass/volume] in BloodOrdered By: Santa Estrada on 04-15-2024 Hemoglobin (Bld) [Mass/Vol] 13.7 g/dL 11.8-15.4 [facility] Comment on above: Performed By: #### B MP, CBC #### [place] [address] [place] #### NICOTINE, FRUC #### [facility] , Ketones Auto test strip (U) [Mass/Vol]Ordered By: Santa Estrada on 04-15-2024 Ketones (U) [Mass/Vol] Negative Negative [facility] Leukocytes [#/volume] correc perla for nucleated erythrocytes in Blood by Automated counOrdered By: Santa Estrada on 04-15-2024 WBC corrected for nucl RBC Auto (Bld) [#/Vol] 4.1 10*3/uL 3.8-11.6 [facility] Leukocytes [#/volume] in Blo od by Automated countOrdered By: Santa Estrada on 04-15-2024 WBC (Bld) [#/Vol] 4.1 10*3/uL 3.8-11.6 [facility] Comment on above: Performed By: #### B MP, CBC #### [facility] [address] [place] [address] [place] #### NICOTINE, FRUC #### [facility] , Lymphocytes [#/volume] in Bl ood by Automated countOrdered By: Santa Estrada on 04-15-2024 Lymphocytes (Bld) [#/Vol] 1.4 10*3/uL 1.00-4.8 [facility] Comment on above: Performed By: #### B MP, CBC #### [facility] [address] [place] [address] [place] #### NICOTINE, FRUC #### [facility] , Lymphocytes/100 leukocytes i n Blood by Automated countOrdered By: Santa Estrada on 04-15-2024 Lymphocytes/100 WBC (Bld) 33.6 % . [facility] Comment on above: Performed By: #### B MP, CBC #### [place] [address] [place] #### NICOTINE, FRUC #### [facility] , MCH [Entitic mass] by Automa perla countOrdered By: Santa Estrada on 04-15-2024 MCH (RBC) [Entitic mass] 30.4 pg 24.7-34.3 [facility] Comment on above: Performed By: #### B MP, CBC #### [address] #### NICOTINE, FRUC #### [facility] , MCHC Auto (RBC) [Mass/Vol]Or dered By: Santa Estrada on 04-15-2024 MCHC (RBC) [Mass/Vol] 34.0 g/dL 32.0-35.0 [facility] MCV [Entitic volume] by Auto mated countOrdered By: Santa Estrada on 04-15-2024 MCV (RBC) [Entitic vol] 89.4 fL 80-100 [facility] Comment on above: Performed By: #### B MP, CBC #### [place] [address] [place] #### NICOTINE, FRUC #### [facility] , Neutrophils [#/volume] in Bl ood by Automated countOrdered By: Santa Estrada on 04-15-2024 Neutrophils (Bld) [#/Vol] 2.2 10*3/uL 1.8-7.7 [facility] Comment on above: Performed By: #### B MP, CBC #### [place] [address] [place] #### NICOTINE, FRUC #### [facility] , Nicotine [Mass/volume] in Se rum or PlasmaOrdered By: Santa Estrada on 04-15-2024 Nicotine [Mass/Vol] <1.0 ng/mL . [facility] Comment on above: This test was develo ped and its performance characteristicsdetermined by [facility]. It has not been cleared orapproved by the Food and Drug Administration.Nicotine levels greater than 2.0 are consistent with theuse of tobacco or tobacco cessation products. Nicotine/Cotinine Bloodon Cotinine, Blood <1.0 Normal . [facility] Comment on above: Result Comment: This test was developed and its performance characteristics determined by [facility]. It has not been cleared or approved by the Food and Drug Administration. Cotinine levels greater than 20.0 are consistent with the use of tobacco or tobacco cessation products. Performed at: [address] [id number] Job Lithographer: Marcellus Dave MD, Phone: [phone] PERFORMED BY: [place] [address] PATHOLOGIST INSTRUCTION LIBRARIAN GENO BENEDICT M.D. Performed By: #### A 1C WT eA, ALB, [id number], HGB #### [address] #### NICOTINE #### [facility] , Nicotine, Blood <1.0 Normal . [facility] Comment on above: Result Comment: This test was developed and its performance characteristics determined by [facility]. It has not been cleared or approved by the Food and Drug Administration. Nicotine levels greater than 2.0 are consistent with the use of tobacco or tobacco cessation products. Performed By: #### A 1C WTH eA, ALB, [id number], HGB #### [place] [address] [place] #### NICOTINE #### [facility] , Nitrite Test strip Ql (U)Ord ered By: Santa Estrada on 04-15-2024 Nitrite Ql (U) Negative Negative [facility] No Panel InformationOrdered By: Santa Estrada on 04-15-2024 Estimated GFR (CKD-EPI) > 60.0 mL/Min [facility] Creatinine Clearance (Chem N/A [facility] Nucleated erythrocytes [Pres ence] in Blood by Automated countOrdered By: Santa Estrada on 04-15-2024 Nucleated RBC Auto Ql (Bld) 0.1 /100{WBC} 0-0.5 [facility] PST Type and Screenon 2023 ABO and Rh group Nom (Bld) Blood group O Rh(D) positive Normal [facility] Comment on above: Order Comment: Date of Surgery: [id number] Result Comment: PERF ORMED BY: [place] [address] PATHOLOGIST INSTRUCTION LIBRARIAN GENO BENEDICT M.D. Platelet mean volume [Entiti c volume] in Blood by Automated countOrdered By: Santa Estrada on 04-15-2024 Platelet mean volume (Bld) [Entitic vol] 7.3 fL 6.3-10.7 [facility] Comment on above: Performed By: #### B MP, CBC #### [facility] [address] [place] [address] #### NICOTINE, FRUC #### [facility] , Platelets [#/volume] in Bloo d by Automated countOrdered By: Santa Estrada on 04-15-2024 Platelets (Bld) [#/Vol] 230 10*3/uL 150-450 [facility] Comment on above: Performed By: #### B MP, CBC #### [facility] [address] [place] [address] [place] #### NICOTINE, FRUC #### [facility] , Potassium [Moles/volume] in Serum or PlasmaOrdered By: Santa Estrada on 04-15-2024 Potassium [Moles/Vol] 4.0 mmol/L 3.5-5.1 [facility] Comment on above: Performed By: #### A 1C WTH eA, ALB, [id number], HGB #### [place] [address] [place] #### NICOTINE #### [facility] , Protein Auto test strip (U) [Mass/Vol]Ordered By: Santa Estrada on 04-15-2024 Protein (U) [Mass/Vol] Negative Negative [facility] Serum or plasma anion gap de terminationOrdered By: Santa Estrada on 04-15-2024 Anion gap [Moles/Vol] 6.7 mmol/L 6.0-15.0 [facility] Comment on above: Performed By: #### A 1C WT eA, ALB, [id number], HGB #### [place] [address] [place] #### NICOTINE #### [facility] , Sodium [Moles/volume] in Ser um or PlasmaOrdered By: Santa Estrada on 04-15-2024 Sodium [Moles/Vol] 135 mmol/L Low 136-145 [facility] Comment on above: Performed By: #### A 1C WTH eA, ALB, [id number], HGB #### [address] #### NICOTINE #### [facility] , Specific gravity Auto test s trip (U) [Rel density]Ordered By: Santa Estrada on 04-15-2024 Specific gravity (U) [Rel density] 1.009 1.001-1.03 0 [facility] Urea nitrogen [Mass/volume] in Serum or PlasmaOrdered By: Santa Estrada on 04-15-2024 Urea nitrogen [Mass/Vol] 10 mg/dL 7-25 [facility] Comment on above: Performed By: #### A 1C WTH eA, ALB, [id number], HGB #### [place] [address] [place] #### NICOTINE #### [facility] , Urinalysison 04-15-2024 Appearance (U) Clear Normal Clear [facility] Comment on above: Order Comment: Name Collection Type:: Clean-Voided Midstream Performed By: #### U A #### [facility] [address] [place] [address] [place] Bilirubin,Urine Negative Normal Negative [facility] Comment on above: Order Comment: Name Collection Type:: Clean-Voided Midstream Performed By: #### U A #### [facility] [address] [place] [address] [place] Glucose Ql (U) Normal Normal Normal [facility] Comment on above: Order Comment: Name Collection Type:: Clean-Voided Midstream Performed By: #### U A #### [facility] [address] [place] [address] [place] Ketones Ql (U) Negative Normal Negative [facility] Comment on above: Order Comment: Name Collection Type:: Clean-Voided Midstream Performed By: #### U A #### [place] [address] [place] Leukocyte esterase Test strip Ql (U) Negative Normal Negative [facility] Comment on above: Order Comment: Name Collection Type:: Clean-Voided Midstream Performed By: #### U A #### [place] [address] [place] Nitrite,Urine Negative Normal Negative [facility] Comment on above: Order Comment: Name Collection Type:: Clean-Voided Midstream Performed By: #### U A #### [place] [address] [place] Occult Blood,Urine Negative Normal Negative [facility] Comment on above: Order Comment: Name Collection Type:: Clean-Voided Midstream Result Comment: PERF ORMED BY: [place] [address] PATHOLOGIST INSTRUCTION LIBRARIAN GENO BENEDICT M.D. Performed By: #### U A #### [place] [address] [place] Protein,Urine Negative Normal Negative [facility] Comment on above: Order Comment: Name Collection Type:: Clean-Voided Midstream Performed By: #### U A #### [facility] [address] Specificy [place],Urine 1.009 Normal 1.001-1.03 0 [facility] Comment on above: Order Comment: Name Collection Type:: Clean-Voided Midstream Performed By: #### U A #### [address] Urobilinogen,Urine Normal Normal Normal [facility] Comment on above: Order Comment: Name Collection Type:: Clean-Voided Midstream Performed By: #### U A #### [address] Urine clarity by refractomet ry automatedOrdered By: Santa Estrada on 04-15-2024 Clarity Refractometry automated (U) Clear Clear [facility] Urine glucose measurement by automated test strip (mass/volume)Ordered By: Santa Estrada on 04-15-2024 Glucose Auto test strip (U) [Mass/Vol] Normal mg/dL Normal [facility] Urine hemoglobin detection b y automated test stripOrdered By: Santa Estrada on 04-15-2024 Hemoglobin Auto test strip Ql (U) Negative Negative [facility] Urine leukocyte esterase det ection by automated test stripOrdered By: Santa Estrada on 04-15-2024 Leukocyte esterase Auto test strip Ql (U) Negative Negative [facility] Urine pH measurement by auto mated test stripOrdered By: Santa Estrada on 04-15-2024 pH (U) 8.0 [pH] 5.0-9.0 [facility] Comment on above: Order Comment: Name Collection Type:: Clean-Voided Midstream Performed By: #### U A #### [facility] [address] [place] [address] Urobilinogen Auto test strip (U) [Mass/Vol]Ordered By: Santa Estrada on 04-15-2024 Urobilinogen (U) [Mass/Vol] Normal mg/dL Normal [facility] CBC with Diffon 03-14-2024 Abs. Basophil 0.06 k/uL Normal 0.00-0.20 [facility] Comment on above: Performed By: #### C DP, VD25, FEBC, AHCV, GLYHGB, HIVCMB, TSHX, FERI, LIPRF, B12, CP #### [place] [address] Job Lithographer: Isreal Astorga MD Abs.Imm.Granulocyte <0.03 Normal 0.00-0.30 [facility] Comment on above: Performed By: #### C DP, VD25, FEBC, AHCV, GLYHGB, HIVCMB, TSHX, FERI, LIPRF, B12, CP #### [place] [address] Job Lithographer: Isreal Astorga MD Abs.Neutrophil (Seg) 2.66 k/uL Normal 1.50-8.10 [facility] Comment on above: Performed By: #### C DP, VD25, FEBC, AHCV, GLYHGB, HIVCMB, TSHX, FERI, LIPRF, B12, CP #### [place] [address] Job Lithographer: Isreal Astorga MD Basophils/100 WBC (Bld) 1 % Normal 0-2 [facility] Comment on above: Performed By: #### C DP, VD25, FEBC, AHCV, GLYHGB, HIVCMB, TSHX, FERI, LIPRF, B12, CP #### [place] [address] Job Lithographer: Isreal Astorga MD Eosinophils (Bld) [#/Vol] 0.28 10*3/uL Normal 0.00-0.44 [facility] Comment on above: Performed By: #### C DP, VD25, FEBC, AHCV, GLYHGB, HIVCMB, TSHX, FERI, LIPRF, B12, CP #### [place] [address] Job Lithographer: Isreal Astorga MD Eosinophils/100 WBC (Bld) 5 % High 1-4 [facility] Comment on above: Performed By: #### C DP, VD25, FEBC, AHCV, GLYHGB, HIVCMB, TSHX, FERI, LIPRF, B12, CP #### [address] [id number] Job Lithographer: Isreal Astorga MD Erythrocyte distribution width (RBC) [Ratio] 12.6 % Normal 11.8-14.4 [facility] Comment on above: Performed By: #### C DP, VD25, FEBC, AHCV, GLYHGB, HIVCMB, TSHX, FERI, LIPRF, B12, CP #### [place] [id number] Job Lithographer: Isreal Astorga MD Hematocrit (Bld) [Volume fraction] 38.8 % Normal 36.3-47.1 [facility] Comment on above: Performed By: #### C DP, VD25, FEBC, AHCV, GLYHGB, HIVCMB, TSHX, FERI, LIPRF, B12, CP #### [place] [address] Job Lithographer: Isreal Astorga MD Hemoglobin (Bld) [Mass/Vol] 12.9 g/dL Normal 11.9-15.1 [facility] Comment on above: Performed By: #### C DP, VD25, FEBC, AHCV, GLYHGB, HIVCMB, TSHX, FERI, LIPRF, B12, CP #### [place] [id number] Job Lithographer: Isreal Astorga MD Immature granulocytes/100 WBC (Bld) 0 % Normal 0 [facility] Comment on above: Performed By: #### C DP, VD25, FEBC, AHCV, GLYHGB, HIVCMB, TSHX, FERI, LIPRF, B12, CP #### [address] [id number] Job Lithographer: Isreal Astorga MD Lymphocytes (Bld) [#/Vol] 1.69 10*3/uL Normal 1.10-3.70 [facility] Comment on above: Performed By: #### C DP, VD25, FEBC, AHCV, GLYHGB, HIVCMB, TSHX, FERI, LIPRF, B12, CP #### [address] [id number] Job Lithographer: Isreal Astorga MD Lymphocytes/100 WBC (Bld) 33 % Normal 24-43 [facility] Comment on above: Performed By: #### C DP, VD25, FEBC, AHCV, GLYHGB, HIVCMB, TSHX, FERI, LIPRF, B12, CP #### [place] [id number] Job Lithographer: Isreal Astorga MD MCH (RBC) [Entitic mass] 29.9 pg Normal 25.2-33.5 [facility] Comment on above: Performed By: #### C DP, VD25, FEBC, AHCV, GLYHGB, HIVCMB, TSHX, FERI, LIPRF, B12, CP #### [facility] [employer] [address] [place] [phone] Job Lithographer: Isreal Astorga MD MCHC (RBC) [Mass/Vol] 33.2 g/dL Normal 28.4-34.8 [facility] Comment on above: Performed By: #### C DP, VD25, FEBC, AHCV, GLYHGB, HIVCMB, TSHX, FERI, LIPRF, B12, CP #### [facility] [employer] [address] [place] [id number] Job Lithographer: Isreal Astorga MD MCV (RBC) [Entitic vol] 89.8 fL Normal 82.6-102.9 [facility] Comment on above: Performed By: #### C DP, VD25, FEBC, AHCV, GLYHGB, HIVCMB, TSHX, FERI, LIPRF, B12, CP #### [address] [id number] Job Lithographer: Isreal Astorga MD Monocytes (Bld) [#/Vol] 0.47 10*3/uL Normal 0.10-1.20 [facility] Comment on above: Performed By: #### C DP, VD25, FEBC, AHCV, GLYHGB, HIVCMB, TSHX, FERI, LIPRF, B12, CP #### [address] [id number] Job Lithographer: Isreal Astorga MD Monocytes/100 WBC (Bld) 9 % Normal 3-12 [facility] Comment on above: Performed By: #### C DP, VD25, FEBC, AHCV, GLYHGB, HIVCMB, TSHX, FERI, LIPRF, B12, CP #### [address] [id number] Job Lithographer: Isreal Astorga MD Neutrophil (Seg) 52 % Normal 36-65 [facility] Comment on above: Performed By: #### C DP, VD25, FEBC, AHCV, GLYHGB, HIVCMB, TSHX, FERI, LIPRF, B12, CP #### [place] [address] Job Lithographer: Isreal Astorga MD NRBC Automated 0.0 per 100 WBC Normal 0.0 [facility] Comment on above: Performed By: #### C DP, VD25, FEBC, AHCV, GLYHGB, HIVCMB, TSHX, FERI, LIPRF, B12, CP #### [address] [id number] Job Lithographer: Isreal Astorga MD Platelet mean volume (Bld) [Entitic vol] 9.7 fL Normal 8.1-13.5 [facility] Comment on above: Performed By: #### C DP, VD25, FEBC, AHCV, GLYHGB, HIVCMB, TSHX, FERI, LIPRF, B12, CP #### [address] [id number] Job Lithographer: Isreal Astorga MD Platelets (Bld) [#/Vol] 256 10*3/uL Normal 138-453 [facility] Comment on above: Performed By: #### C DP, VD25, FEBC, AHCV, GLYHGB, HIVCMB, TSHX, FERI, LIPRF, B12, CP #### [address] [id number] Job Lithographer: Isreal Astroga MD RBC (Bld) [#/Vol] 4.32 10*6/uL Normal 3.95-5.11 [facility] Comment on above: Performed By: #### C DP, VD25, FEBC, AHCV, GLYHGB, HIVCMB, TSHX, FERI, LIPRF, B12, CP #### [address] [id number] Job Lithographer: Isreal Astorga MD WBC (Bld) [#/Vol] 5.2 10*3/uL Normal 3.5-11.3 [facility] Comment on above: Performed By: #### C DP, VD25, FEBC, AHCV, GLYHGB, HIVCMB, TSHX, FERI, LIPRF, B12, CP #### [address] [id number] Job Lithographer: Isreal Astorga MD Comp Metabolic Profon 2023 Albumin [Mass/Vol] 4.2 g/dL Normal 3.5-5.2 [facility] Comment on above: Performed By: #### C DP, VD25, FEBC, AHCV, GLYHGB, HIVCMB, TSHX, FERI, LIPRF, B12, CP #### [address] [id number] Job Lithographer: Isreal Astorga MD Albumin/Glob Ratio 2.0 Normal 1.0-2.5 [facility] Comment on above: Performed By: #### C DP, VD25, FEBC, AHCV, GLYHGB, HIVCMB, TSHX, FERI, LIPRF, B12, CP #### [address] [id number] Job Lithographer: Isreal Astorga MD Alkaline Phos 72 U/L Normal 35-104 [facility] Comment on above: Performed By: #### C DP, VD25, FEBC, AHCV, GLYHGB, HIVCMB, TSHX, FERI, LIPRF, B12, CP #### [address] [id number] Job Lithographer: Isreal Astorga MD ALT [Catalytic activity/Vol] 21 U/L Normal 10-35 [facility] Comment on above: Performed By: #### C DP, VD25, FEBC, AHCV, GLYHGB, HIVCMB, TSHX, FERI, LIPRF, B12, CP #### [address] [id number] Job Lithographer: Isreal Astorga MD Anion gap [Moles/Vol] 8 mmol/L Low 9-16 [facility] Comment on above: Performed By: #### C DP, VD25, FEBC, AHCV, GLYHGB, HIVCMB, TSHX, FERI, LIPRF, B12, CP #### [address] [address] Job Lithographer: Isreal Astorga MD AST [Catalytic activity/Vol] 23 U/L Normal 10-35 [facility] Comment on above: Performed By: #### C DP, VD25, FEBC, AHCV, GLYHGB, HIVCMB, TSHX, FERI, LIPRF, B12, CP #### [address] [address] Job Lithographer: Isreal Astorga MD Bilirubin [Mass/Vol] 0.4 mg/dL Normal 0.00-1.20 [facility] Comment on above: Performed By: #### C DP, VD25, FEBC, AHCV, GLYHGB, HIVCMB, TSHX, FERI, LIPRF, B12, CP #### [address] [id number] Job Lithographer: Isreal Astorga MD Calcium [Mass/Vol] 8.8 mg/dL Normal 8.6-10.4 [facility] Comment on above: Performed By: #### C DP, VD25, FEBC, AHCV, GLYHGB, HIVCMB, TSHX, FERI, LIPRF, B12, CP #### [address] [id number] Job Lithographer: Isreal Astorga MD Chloride [Moles/Vol] 106 mmol/L Normal 98-107 [facility] Comment on above: Performed By: #### C DP, VD25, FEBC, AHCV, GLYHGB, HIVCMB, TSHX, FERI, LIPRF, B12, CP #### [address] [id number] Job Lithographer: Isreal Astorga MD CO2 [Moles/Vol] 25 mmol/L Normal 20-31 [facility] Comment on above: Performed By: #### C DP, VD25, FEBC, AHCV, GLYHGB, HIVCMB, TSHX, FERI, LIPRF, B12, CP #### [address] [id number] Job Lithographer: Isreal Astorga MD Creatinine [Mass/Vol] 0.7 mg/dL Normal 0.50-0.90 [facility] Comment on above: Performed By: #### C DP, VD25, FEBC, AHCV, GLYHGB, HIVCMB, TSHX, FERI, LIPRF, B12, CP #### [address] [id number] Job Lithographer: Isreal sAtorga MD GFR/1.73 sq M.predicted among non-blacks MDRD (S/P/Bld) [Vol rate/Area] mL/min/{1.73_m2} Normal >60 [facility] Comment on above: Result Comment: [...] HIVCMB, TSHX, FERI, LIPRF, B12, CP #### [place] [address] Job Lithographer: Isreal Astorga MD Glucose [Mass/Vol] 94 mg/dL Normal 74-99 [facility] Comment on above: Performed By: #### C DP, VD25, FEBC, AHCV, GLYHGB, HIVCMB, TSHX, FERI, LIPRF, B12, CP #### [place] [address] Job Lithographer: Isreal Astorga MD Potassium [Moles/Vol] 3.8 mmol/L Normal 3.7-5.3 [facility] Comment on above: Performed By: #### C DP, VD25, FEBC, AHCV, GLYHGB, HIVCMB, TSHX, FERI, LIPRF, B12, CP #### [address] [id number] Job Lithographer: Isreal Astorga MD Protein [Mass/Vol] 6.7 g/dL Normal 6.6-8.7 [facility] Comment on above: Performed By: #### C DP, VD25, FEBC, AHCV, GLYHGB, HIVCMB, TSHX, FERI, LIPRF, B12, CP #### [address] [id number] Job Lithographer: Isreal Astorga MD Sodium [Moles/Vol] 139 mmol/L Normal 136-145 [facility] Comment on above: Performed By: #### C DP, VD25, FEBC, AHCV, GLYHGB, HIVCMB, TSHX, FERI, LIPRF, B12, CP #### [address] [id number] Job Lithographer: Isreal Astorga MD Urea nitrogen [Mass/Vol] 12 mg/dL Normal 6-20 [facility] Comment on above: Performed By: #### C DP, VD25, FEBC, AHCV, GLYHGB, HIVCMB, TSHX, FERI, LIPRF, B12, CP #### [address] [id number] Job Lithographer: Isreal Astorga MD Ferritinon 5 Ferritin [Mass/Vol] 133 ng/mL Normal 13-150 [facility] Comment on above: Result Comment: FERRITIN Reference Ranges: Adult Males 20 - 60 years: 30 - 400 ng/mL Adult females 17 - 60 years: 13 - 150 ng/mL Adults greater than 60 years: no established reference range Pediatrics: no established reference range Performed By: #### C DP, VD25, FEBC, AHCV, GLYHGB, HIVCMB, TSHX, FERI, LIPRF, B12, CP #### [address] [id number] Job Lithographer: Isreal Astorga MD HIV Ag/Abon 03-14-2024 HIV Ag/Ab Non-Reactive Normal NR [facility] Comment on above: Result Comment: No l aboratory evidence of HIV infection. If acute HIV infection is suspected, consider testing for HIV-1 RNA. Performed By: #### C DP, VD25, FEBC, AHCV, GLYHGB, HIVCMB, TSHX, FERI, LIPRF, B12, CP #### [address] [id number] Job Lithographer: Isreal Astorga MD Hemoglobin A1Con 03-14-2024 Glucose [Mass/Vol] 94 mg/dL Normal [facility] Comment on above: Result Comment: The ADA and AACC recommend providing the estimated average glucose result to permit better patient understanding of their HBA1c result. Performed By: #### C DP, VD25, FEBC, AHCV, GLYHGB, HIVCMB, TSHX, FERI, LIPRF, B12, CP #### [address] [id number] Job Lithographer: Isreal Astorga MD HbA1c (Bld) [Mass fraction] 4.9 % Normal 4.0-6.0 [facility] Comment on above: Performed By: #### C DP, VD25, FEBC, AHCV, GLYHGB, HIVCMB, TSHX, FERI, LIPRF, B12, CP #### [address] [address] Job Lithographer: Isreal Astorga MD Hep C Abon 03-14-2024 Hep C Ab Non-Reactive Normal NR [facility] Comment on above: Result Comment: [...] HIVCMB, TSHX, FERI, LIPRF, B12, CP #### [facility] [address] [place] [address] [id number] Job Lithographer: Isreal Astorga MD Iron Binding Cap.on 03-14-20 24 % Fe Saturation 44 % Normal 20-55 [facility] Comment on above: Performed By: #### C DP, VD25, FEBC, AHCV, GLYHGB, HIVCMB, TSHX, FERI, LIPRF, B12, CP #### [address] [id number] Job Lithographer: Isreal Astorga MD Iron [Mass/Vol] 107 ug/dL Normal 37-145 [facility] Comment on above: Performed By: #### C DP, VD25, FEBC, AHCV, GLYHGB, HIVCMB, TSHX, FERI, LIPRF, B12, CP #### [address] [id number] Job Lithographer: Isreal Astorga MD Total Fe Binding Cap 243 ug/dL Low 250-450 [facility] Comment on above: Performed By: #### C DP, VD25, FEBC, AHCV, GLYHGB, HIVCMB, TSHX, FERI, LIPRF, B12, CP #### [facility] [employer] [facility] [address] [place] [id number] Job Lithographer: Isreal Astorga MD Unbound Fe Bind Cap 136 ug/dL Normal 112-347 [facility] Comment on above: Performed By: #### C DP, VD25, FEBC, AHCV, GLYHGB, HIVCMB, TSHX, FERI, LIPRF, B12, CP #### [facility] [address] [place] [id number] Job Lithographer: Isreal Astorga MD Lipid Prof, Fastingon 2023 Cholesterol [Mass/Vol] 174 mg/dL Normal 0-199 [facility] Comment on above: Result Comment: Cholesterol Guidelines: <200 Desirable 200-240 Borderline >240 Undesirable Performed By: #### C DP, VD25, FEBC, AHCV, GLYHGB, HIVCMB, TSHX, FERI, LIPRF, B12, CP #### [address] [id number] Job Lithographer: Isreal Astorga MD Cholesterol in HDL [Mass/Vol] 57 mg/dL Normal >40 [facility] Comment on above: Result Comment: HDL Guidelines: <40 Undesirable 40-59 Borderline >59 Desirable Performed By: #### C DP, VD25, FEBC, AHCV, GLYHGB, HIVCMB, TSHX, FERI, LIPRF, B12, CP #### [address] [address] Job Lithographer: Isreal Astorga MD Cholesterol in LDL [Mass/Vol] 96 mg/dL Normal 0-100 [facility] Comment on above: Result Comment: LDL Guidelines: <100 Desirable 100-129 Near to/above Desirable 130-159 Borderline >159 Undesirable Direct (measured) LDL and calculated LDL are not interchangeable tests. Performed By: #### C DP, VD25, FEBC, AHCV, GLYHGB, HIVCMB, TSHX, FERI, LIPRF, B12, CP #### [address] [address] Job Lithographer: Isreal Astorga MD Cholesterol in VLDL [Mass/Vol] 22 mg/dL Normal [facility] Comment on above: Performed By: #### C DP, VD25, FEBC, AHCV, GLYHGB, HIVCMB, TSHX, FERI, LIPRF, B12, CP #### [address] [address] Job Lithographer: Isreal Astorga MD Cholesterol.total/Chol esterol in HDL [Mass ratio] 3.0 {ratio} Normal [facility] Comment on above: Performed By: #### C DP, VD25, FEBC, AHCV, GLYHGB, HIVCMB, TSHX, FERI, LIPRF, B12, CP #### [address] [id number] Job Lithographer: Isreal Astorga MD Triglyceride,Fasting 108 mg/dL Normal 0-149 [facility] Comment on above: Result Comment: Triglyceride Guidelines: <150 Desirable 150-199 Borderline 200-499 High >499 Very high Based on AHA Guidelines for fasting triglyceride, June 2012. Performed By: #### C DP, VD25, FEBC, AHCV, GLYHGB, HIVCMB, TSHX, FERI, LIPRF, B12, CP #### [facility] [address] [place] [address] [id number] Job Lithographer: Isreal Astorga MD TSH w/reflex to FT4on 2023 Thyroid Stim. Horm. 2.37 uIU/mL Normal 0.27-4.20 [facility] Comment on above: Performed By: #### C DP, VD25, FEBC, AHCV, GLYHGB, HIVCMB, TSHX, FERI, LIPRF, B12, CP #### [facility] [address] [place] [address] [id number] Job Lithographer: Isreal Astorga MD Vitamin B12on 03-14-2024 Cobalamin (Vitamin B12) [Mass/Vol] 695 pg/mL Normal 232-1245 [facility] Comment on above: Performed By: #### C DP, VD25, FEBC, AHCV, GLYHGB, HIVCMB, TSHX, FERI, LIPRF, B12, CP #### [facility] [address] [place] [address] [id number] Job Lithographer: Isreal Astorga MD Vitamin D 25 OHon 03-14-2024 Vitamin D 25 OH 17.4 ng/mL Low 30.0-100.0 [facility] Comment on above: Result Comment: Reference Range: Vitamin D status Range Deficiency <20 ng/mL Mild Deficiency 20-30 ng/mL Sufficiency 30-100 ng/mL Toxicity >100 ng/mL Performed By: #### C DP, VD25, FEBC, AHCV, GLYHGB, HIVCMB, TSHX, FERI, LIPRF, B12, CP #### [facility] [address] [place] [address] Job Lithographer: Isreal Astorga MD Patient Handouton 03-13-2024 Patient Handout Custom [facility] [address], [address], [place] Date: 03/13/2024 RE: Lucila Jacques To whom it may concern, Lucila has been under my professional care due to a surgical procedure performed on 02/27/2024. She may return to work with no restrictions on 03/20/2024. Thank you, Peter Booth M.D. Normal [facility] Release of Informationon Release of Information [phone] [id number] Normal [facility] A1C with Estimated Average G luon 03-12-2024 Glucose [Mass/Vol] 105 mg/dL Normal [facility] Comment on above: Result Comment: PERF ORMED BY: [place] [address] PATHOLOGIST INSTRUCTION LIBRARIAN GENO BENEDICT M.D. Performed By: #### A 1C WTH eA, ALB, [id number], HGB #### [address] #### NICOTINE #### [facility] , Albumin Levelon 03-12-2024 Albumin [Mass/Vol] 4.0 g/dL Normal 3.5-5.7 [facility] Comment on above: Performed By: #### A 1C WTH eA, ALB, [id number], HGB #### [place] [address] [place] #### NICOTINE #### [facility] , Albumin [Mass/volume] in Ser um or Plasma by Bromocresol green (BCG) dye binding methoOrdered By: Santa Estrada on 03-12-2024 Albumin BCG dye [Mass/Vol] 4.0 g/dL 3.5-5.7 [facility] Cotinine [Mass/volume] in Se rum or PlasmaOrdered By: Santa Estrada on 03-12-2024 Cotinine [Mass/Vol] 3.7 ng/mL . [facility] Comment on above: This test was develo ped and its performance characteristicsdetermined by [facility]. It has not been cleared orapproved by the Food and Drug Administration.Cotinine levels greater than 20.0 are consistent with theuse of tobacco or tobacco cessation products.Performed at: [facility] [address] [id number] Director: Marcellus Dave MD, Phone: [phone] Glucose mean value [Mass/vol ume] in Blood Estimated from glycated hemoglobinOrdered By: Santa Estrada on 03-12-2024 Average glucose Estimated from glycated hemoglobin (Bld) [Mass/Vol] 105 mg/dL [facility] Hemoglobin A1c percentageOrd ered By: Santa Estrada on 03-12-2024 HbA1c (Bld) [Mass fraction] 5.3 % Normal 4.3-5.6 [facility] Comment on above: Increased risk for d iabetes: 5.7 - 6.4diabetes: >6.4glycemic control for adults with diabetes: <7.0 Result Comment: Incr eased risk for diabetes: 5.7 - 6.4 diabetes: >6.4 glycemic control for adults with diabetes: <7.0 Performed By: #### A 1C WTH eA, ALB, [id number], HGB #### [place] [address] [place] #### NICOTINE #### [facility] , Hemoglobin [Mass/volume] in BloodOrdered By: Santa Estrada on 03-12-2024 Hemoglobin (Bld) [Mass/Vol] 12.8 g/dL Normal 11.8-15.4 [facility] Comment on above: Result Comment: PERF ORMED BY: [place] [address] PATHOLOGIST INSTRUCTION LIBRARIAN JIANLAN SUN M.D. Performed By: #### A 1C WTH eA, ALB, [id number], HGB #### [facility] [address] [place] [address] [place] #### NICOTINE #### [facility] , MRSA Cultureon 03-12-2024 MRSA Culture No MRSA Isolated 2 D ays PERFORMED BY: [place] [address] PATHOLOGIST INSTRUCTION LIBRARIAN GENO BENEDICT M.D. Normal [facility] Comment on above: Performed By: #### C UMRSA #### [facility] [address] [place] [address] Nicotine [Mass/volume] in Se rum or PlasmaOrdered By: Santa Estrada on 03-12-2024 Nicotine [Mass/Vol] <1.0 ng/mL . [facility] Comment on above: This test was develo ped and its performance characteristicsdetermined by [facility]. It has not been cleared orapproved by the Food and Drug Administration.Nicotine levels greater than 2.0 are consistent with theuse of tobacco or tobacco cessation products. Nicotine/Cotinine Bloodon Cotinine, Blood 3.7 ng/mL Normal . [facility] Comment on above: Result Comment: This test was developed and its performance characteristics determined by [facility]. It has not been cleared or approved by the Food and Drug Administration. Cotinine levels greater than 20.0 are consistent with the use of tobacco or tobacco cessation products. Performed at: [address] [id number] Job Lithographer: Marcellus Dave MD, Phone: [phone] PERFORMED BY: [place] [address] PATHOLOGIST INSTRUCTION LIBRARIAN GENO BENEDICT M.D. Performed By: #### A 1C WTH eA, ALB, [id number], HGB #### [place] [address] [place] #### NICOTINE #### [facility] , Nicotine, Blood <1.0 Normal . [facility] Comment on above: Result Comment: This test was developed and its performance characteristics determined by [facility]. It has not been cleared or approved by the Food and Drug Administration. Nicotine levels greater than 2.0 are consistent with the use of tobacco or tobacco cessation products. Performed By: #### A 1C WTH eA, ALB, [id number], HGB #### [address] #### NICOTINE #### [facility] , Vitamin D 25 Hydroxy Totalon 03-12-2024 Vitamin D 25 Hydroxy Total 18.4 ng/mL Low 30-100 [facility] Comment on above: Result Comment: EVE MIN D STATUS 25(OH)VITAMIN D RANGE (ng/mL) Deficient <20 Insufficient 20 to <30 Sufficient 30 to 100 Reference: Juliano Vila, Tate VELAZQUEZ, et al. Evaluation,treatment, and prevention of vitamin D deficiency; an Endocrine Society clinical practice guideline. JCEM. 2010; 96(7):191-. PERFORMED BY: [place] [address] PATHOLOGIST INSTRUCTION LIBRARIAN GENO BENEDICT M.D. Performed By: #### A 1C WTH eA, ALB, [id number], HGB #### [address] #### NICOTINE #### [facility] , Vitamin D+Metabolites [Mass/ volume] in Serum or PlasmaOrdered By: Santa Estrada on 03-12-2024 Vitamin D+Metabolites [Mass/Vol] 18.4 ng/mL Low 30-100 [facility] Comment on above: VITAMIN D [...] (Unsp spec) No MRSA Isolated 2 Days [facility] Coding Summaryon 03-07-2024 Coding Summary HTMLBase 64 EswrdfauJHv7fXw+PGhlYWQ+PE1 PCNPvH39dcCMkaS0vK1PKPGeOFj bjMPRLBLaUMwQecaRdUZ3aqBWsR XJu IC8+FU2jQHLtAuujlLQfh3X8uBW 2O94dno6fJKuoeNM8ICVqFcSmhx fup8xukFp7XYoxLcguFnRx PPNedZ99SVW9xJ68Ay79iNYvkYW uu8dwyAg1NpDiFZVsHZC5jQaeKE opf8UmQVUiO52fmFJcm3P3 NKIxfXzxtDDzFbUkrZM2lI0aRDt yktfvv2goccgiOkw8lb93bEAua1 Z9bGA6X6XmirQ7SCYcyUDd DawmuLQWfL1jrfkbg5qhwsycVaV uONWoSMo6UNx6MNZohIecVlXpMN 92IIQ6BTBwzpSaY2AgQKJh aFuoYtW6s8D5Ij1CV1EXIokyH3U NTUFSWTwvdGQ+VH77zr73O1ByWi npHyz6OBLlTDN6nXN9sH0q CTKeHAkfj4D0xPM8K9NrghJvax8 jc7whYAGiXZixP50wjMLeg7B4PO AuqND2PUEdhNwnQeYphQ08 Oyc+QITrmVqeq8JzNbdlv5vrs0e jkFz5GezaLQDgklJfbNyvWWQ5l9 UwWe1iPBBwyQW1zWN7nP0s OsYgMgW7AVskN890NbNlvFOqWcw kF22cM0XexIX+XTIvXly8TOTpbU qaMD5qD4NcGSRywoqzdQZc gLlkPI0kZATtvwfnHSGdpZ6fFUN kO8y3SwMpFxR7ITnmH3QdPIPkzd ocJl84zB1hFxHbKzY8LDcs Y2MuoxV0IJKvgVSbSMtbBXF1E98 uu9Y6YGRxVJSoIAW9dHZ3tT5rrB lnbjogbGVmdDsgdmVydGlj GJncPYgkI520FEWmkYxrUuTjDUz uZyBEYXRlOiAgMDYvMTMvMjAyND wvdGQ+LTAhUXV8rJeiHMEk wEMfKQkiDo9caHfbgMrwKR5qAWH hwxfsSQDgzK7vQUGxcGLahUwwCJ 3zDERvxccpt144BeDqORZ0 LHQbmAWtH3BoiS6aYpTeMULaFFM mY7QxqBNmTEgwT748OKkpGlI3UU PhmxLgP6GkLKCefFkfXfD2 g2N9Ta8Wm6NyppsoD8UpnMQuDcJ oOmatMWe0B3GyAnqdkSO+PC90YW RrWU25FQw5FAN4zDgvHPfl GKFaY1AtaG2kOsKhDBEaRWZqOmi +PHRhYmxlIHdpZHRoPScxMDAlJy DwnOmyYM3sRl3iUCTgSAXq vIhqxIOwCqQfd8jmMNMyHMvvXO7 deWexI6CkmPH5XMByd9o6Zo69L5 4uZ1NupBM+TEGymZK3aET6 pQ0kNhIfOcI1ODxtT869PwVjiKV sXbalm7tlm1ygmLg8NrJ3MYHxyf XmvSfkLEQ0e0WyHt68J75p IHdpZHRoPSIxNSUiIHZhbGlnbj0 swZ2mXy0+HJAqvKV2aCA1kY0jMf OzEpZ3MStjV874EqPkeNNk Lopzc5bij2xcrNf6XrZeZZBygrS nrUviXUY9v3SlUn96E0FgaYgqs8 AmMxo6rf76dXKdj0C5yHM6 K9LwIOZbvmkaqRAgfYcvJR4zSQM ftgxcVISjoP0rSWIpD9m4GeUfEv A6OEcwI6PcgaM9IMBfkRXp VKOonZAGmU6xxiumz5aebbrkQcX fDHKyMMv2EWv4HAVklPaeHaGbDH M4ThC6XIX3eXLxyM0gfKwh adbguW1kAqd+RDT9kIZfvOGLRK0 lOjwvdGQ+IBVqKML5hRbwOIkvTS YdgQ3pOLAuS9a3MjQwSyR6 ABruM5CvpzI6XOIsdSVyNVZnmRE BqJ5jjpkww4vfxkkbKcBkHWHmJO g4NNj9QXEwuKlwEtFjGFQ9 MyE9WRK6zOUgdU7etNodjzullQ1 wOyc+WogleDqlZMJ8ZKz1T1TwGo z6ULZnrAeaQY0whPQwLWni On9dbNcipVmdYR1rOICmliihw31 2VkIey9esVFVskKKcOZhqOKI1Z9 2jl9Q9CWCwPIAsHPH0cJF3 lD7lyZsgthgrfQMtgNlxceXcfEo qQCjwFGvpW228KQQttPxvOdXdQZ w1K7KjCyz5HTLucBngVY4q fHToTErmKt5azMxxqKuzNK0yHQO xlgmtf461TiVli9srWBAtaFJwLC snKNB0V15ru1C6TFEuCLBl ABU4vJE2uY7lpVyewisujTXwyGu mhsDcmNbhOBixBGroG622ZKWraR qdLgCcgVf2X8EnEpm6MDWs vHkzWM3dhZWcGYlxPr9otPrkdTm qFX3qONQzkyict230XzKeo3ntMB ScdZVoGVnbEPU6V47rb6V8 DKMvOFRqBYU9bOF2qR7sbYiqtsu gbGVmdDsgdmVydGljYWwtYWxpZ2 46IHRvcDsnPlBhdGllbnQg QIyeEBm3D1JuHjbauHN+TO91IZT zHO94eCSsyDLwh8duuVv6WfNdYE XfMPZ1zHrhITquw2JiQTBw T40kcNErp6P1GQRszBtkaENeFxQ pqZX8rQ3bMWtcharem7xvxrffCc cdq6roli46jE14W29dXMqk OKVrTCDoMUMcQBZxvEcvor7tzQ2 wIi8+MCZihPU7aIZ2wB3pSKUcSn O0IRruA846KmCpoCBsOuyy v5fei5woxGo4AbW3OONlxxCawTv rGJO9f8EvXs30J46yMOnxFFCiVY LcJLNzNPXomYbzcy0lbB2f Ii8+MLXfnNI2xKN5gB3gUeAxSbA 5SAtsS090BpVtuHKeYwvwE73uG5 JvdXA+WYSqClq1BPItuEnw TS0xjYWjZYijFz2nYQQ3XnZkRxO cEErfD6DqLPAtmwbgdowckHA0DR PtECSsrN82Wn9vaOteQCFr nZAZeA8lqnehz3owywyzBhQuRSU yHRg0VIq2ATZlbQivCqOnDKM2Ss X3JQN1bTJknW2dsIdgqwma zW4cC2WhGNWiwkcdYh38yP9rOgD sRnS7TKarUeh+ErFXQmmyX7XHSS aXOuZUBVX9T1EqRgf8TBXb sIzhPH2vuSPtMKqgGp1epZhujCx jXW1qTMYbgzbkMGKyeQ5fZDJeiG LubRxlCA0fNHStmdkvl307 OqYiPTV6RTJqmTGfZ8ZtiC0bRoI nNDAnEJGsS4IfsSMlIIisM162QR hqRnS7ZYPbvfRdJ4YkGYWa nLgjJpG3u6D8Zl4zOM8zZr3eNMz 5FC99WO43tIEpm9B4oQZ2Z9GsJJ ArnblgjxqpwUZ1WQBwBITv sB46lBTbHIrxRm6bq3G7f342WVQ pTZXfnK30Fi6xcYfuNVZxfCGNbK 0nplyoh3kdkpzeNjFtICWj JRx1CCi9EIHayYriLhYrYAK2CmB 0NHY7jHGltP7hiFvjevyhtT6mNq c+UaVeOGAljoR6T8KxKpi9 BJCaaWbgWL0usQGmXKgiZd9izEb ujKhzTF8qOHDauxvrWRIqgF4fFU MqsBKnxLjkPH0oJAKyohvc e561WrAwHDD8ZNYfiJAmU8DajT4 kPzCxHYYpCCOiV3NimBFrUDqsR3 53NQcvCaS0ZNUelfTfT0Oo TLQbzUlxGiB6e9R4Fx5KPA6WGXR 9B0GuXrl5ELYevLzyOZ7tfUAaSN xlEv8mqVoorJxrHW8gADLb vtwjHRStrT0bOHMfbDFplOlvWI5 uKLKkxucpf001MlCmIUO9QQDeeA ZpA0XwvX8hWgUdOLNaBYYz A6OdrXZyQUyxT636CEuwRiZ8BIP nnbNgK3SxNBNfnWddIiF5h5L6Xo 5PYnNlcnZhdGlvbjwvdGQ+ RV69jy59L3VsCepqXts9NSHuSPZ 8iEX8nA6tPSUbDVfak5B0mQV5M0 EwikAghh2nz6zjURXsKEsd X82ogZTmi0Z1FNCgxFF4LAZrtRl kMrYfzQ41Wdz+RNOpdAznc7ZqSc fer7xhb8nvfHq0QmKlXUMg abWjhNcfEJL3a3NaYc78H22mHWt dDAOjPUKdPRUqBVDqyFsevg3ugF 9wIi8+LPFsrIJ4oRI6uJ5i LkWdDtQ0NSdqT043SpCcjLUyKic fd0vfi6qfgHo1FlWiQRFrqiJjfK psMAX1n1XyBg89A4EjoTxy d9HaSlq5bz83zMAhx4H3pRK8I1A pZYIibdbeaGOtlAbbGI7tIBSqts fjILAgsM4qETRkQ9d6KfYu RgI2WKsiD5AftnW4MNUfsNTaDHW vaSIUgS5shybch0vkceizQuOtBZ AlDIw8UDw0OJSczJlwGtZu YLA5OcI0MAL6lZAppT8lzTnzyqe wwJ4mVxn+JRy1x8cgqUGbYN6irG G9SP55DM19jOZhx4D1vPX9 Y2AhAQXqjpybhjyzhOH8VZQzHIP voY16Ix6ggTkxIk7dUIEcUDV1PM VbyIJoZ9XfxR6eXiAyMDMj YBVbS1TaoOYfEJauH965FPppClW 1JILqnzHkV2FpYPBztZvwDwT4w3 L5Ti6SPO92IE41QV50qLUf c6Z2gHQ6T9SdNLRztzimeemqlIQ 6CCUeATBdoN58Cf1lgNggFl2oMF UmCIF3DTIbjMXvO5QyfU7o TxJnSOUzYRAjY0OefLQcSRszT50 8HGxjDpX8MMTshaLyO5StEMRzcY smKiF2p1L3Zm5BNa39EM10 BC39gPGif6J7uFI2S8RhWZTunhh empjseIN2LJPxXYNdmE58Jh3krW asYu6cVPTmUQY2ZLPkoYOe B0UmyS9gPcRpWFLuMMPkI3FaiDZ dTCybJ926YVriBfA9LHRhfhWrX3 HkSBAbwDvsVlQ0q5A2Oo2X WMmkivq2S0PqByjoyUV+LF99WXR lSX53aTRpyIKtq6jkoIg5KvNcLD ZgBBK5qXtwEWklx9QnRGVj Y29 (more content not included)... Normal [facility] - AP Resultson 4 Lab - AP Results [id number]#[id number] Normal [facility] MR KNEE LT WO CONTon 024 [...] Easley DO on 03/04/2024 9:20 AM I, Genveieve Mckenzie MD have personally reviewed the image(s) and agree with and/or edited the report Finalized by Genevieve Mckenzie MD on 03/04/2024 9:59 AM Normal [facility] Consent Formson 02-29-2024 Consent Forms [id number][facility]-28-2024 Consent Forms [id number]#1.00OTGTDunlap [facility] Cons[facility] Forms [id number]#1.00[facility]R Postoperative Recordon 02-28-2024 MAGR Postoperative Record MAGR Phase II Record Summary Primary Physician: Peter Booth MD Finalized Date/Time: 02/28/24 07:49:14 Pt. Name: LUCILA JACQUES/Sex: 1990 FEMALE Med Rec #: [id number] Physician: Param Michelle DO Financial #: [id number] Pt. Type: O Room/Bed: [facility] Admit/Disch: 02/26/24 22:40:28 - 02/27/24 18:45:00 [...] Mya Villar RN 02/28/24 07:49 [facility] Outside Recordson 02-28-2024 Outside Records [id number][facility] Telemetry Strips [id number]#1.00[facility] .Auto Diff 102-27-2024 Auto Beltrami % 8 % Normal -12 [facility] Comment on above: Performed By: #### 1 5964309, 9201895585, 6376078, 2502661286, 4410810, 0673577, 7216067, 9530237 #### [facility] (DEFAULT) [address] [place] [address] 66097 Baso Abs# 0.0 x10 Normal 0.0-0.2 [facility] Comment on above: Performed By: #### 1 1305647, 2095254349, 6991520, 5696986828, 3856798, 1929448, 1632575, 1057345 #### [facility] (DEFAULT) [address] [place] [address] 68999 Basophils/100 WBC (Bld) 0.4 % Normal 0.2-2.0 [facility] Comment on above: Performed By: #### 1 0979149, 4306157924, 4484478, 4374672183, 9978723, 5369041, 4474464, 6441209 #### [facility] (DEFAULT) [address] [place] [address] 63228 Eos Abs# 0.1 x10 Normal 0.0-0.4 [facility] Comment on above: Performed By: #### 1 9070624, 0378663764, 1530541, 2287674624, 1592172, 6016188, 0381562, 8017470 #### [facility] (DEFAULT) [address] [place] [address] Eosinophils/100 WBC (Bld) 1.1 % Normal 0.9-4.0 [facility] Comment on above: Performed By: #### 1 5197399, 8980302007, 9573043, 3258226838, 9469654, 3571936, 8542434, 1676227 #### [facility] (DEFAULT) [address] [place] [address] 23644 Lymph Abs# 2.1 x10 Normal 1.3-2.9 [facility] Comment on above: Performed By: #### 1 6096596, 0547001341, 9817702, 3263584685, 5978001, 9048252, 7202283, 9710107 #### [facility] (DEFAULT) [address] [place] [address] Lymphocytes/100 WBC (Bld) 28 % Normal 14-48 [facility] Comment on above: Performed By: #### 1 0986413, 6113504537, 0351467, 2417084203, 2927864, 9051841, 9617341, 5616267 #### [facility] (DEFAULT) [address] [place] [address] 21965 Beltrami Abs# 0.6 x10 Normal 0.0-0.8 [facility] Comment on above: Performed By: #### 1 1096246, 9295661309, 9275661, 0973927839, 5088611, 8898032, 5932637, 4103450 #### [facility] (DEFAULT) [address] [place] [address] 99902 Neut Abs# 4.8 x10 Normal 1.5-9.2 [facility] Comment on above: Performed By: #### 1 5314139, 3984062964, 6989177, 1670949863, 9994892, 8424317, 0530724, 8087013 #### [facility] (DEFAULT) [address] [place] [address] Neutrophils/100 WBC (Bld) 63 % Normal 44-88 [facility] Comment on above: Performed By: #### 1 9513784, 8258550709, 0893974, 6004471815, 4422658, 0104793, 2199908, 1752962 #### [facility] (DEFAULT) [address] [place] [address] 93437 Amylaseon 02-27-2024 Amylase [Catalytic activity/Vol] 51.0 U/L Normal 28.0-100.0 [facility] Comment on above: Performed By: #### 1 2289704, 2687860667, 4304832, 3934393926, 8219573, 7188571, 6163791, 9826409 ####[facility] (DEFAULT)[address] [place] [address] Anesthesia Noteon 02-27-2024 Anesthesia Note Patient: LIOR [...] on: 02/27/2024 12:58 EDT] Juliano Peterson DO [facility] Anesthesia Note Patient: LIOR JACQUES IN [...] history): All Problems Anxiety / SNOMED CT 79578349 / Confirmed Arthritis of left knee / SNOMED CT 812098584594297 / Confirmed Body mass index 40+ - severely obese / SNOMED CT 9032041314 / Confirmed Genital warts / SNOMED CT 645333627 / Confirmed History of arthroscopy of knee joint / SNOMED CT 7712943132 / Confirmed History of bariatric surgical procedure. / SNOMED CT 1769340983 / Confirmed Gastric bypass status for obesity / SNOMED CT 2662019414 / Confirmed H/O syncope / SNOMED CT 7552415317 / Confirmed Hypokalemia / SNOMED CT 91836738 / Confirmed Hypomagnesemia / SNOMED CT 997027345 / Confirmed Mixed anxiety and depressive disorder / SNOMED CT 957160678 / Confirmed Morbid obesity / SNOMED CT 941122294 / Confirmed Peripheral venous insufficiency / SNOMED CT 36614202 / Confirmed Sacroiliac joint pain / SNOMED CT 359647044 / Confirmed Varicose veins of left lower limb / SNOMED CT 171962078171413 / Confirmed Resolved: / SNOMED CT 683114916 Histories Family History: Clotting disorder Mother Diabetes mellitus type 2 Father Grandmother (Paternal) High blood pressure Father PVD - Peripheral vascular disease Mother GERD - Gastro-esophageal reflux disease Father Procedure history: CT guided nerve block (5069942384) on 01/12/2024 at 33 Years. Comments: 01/12/2024 11:39 LUKET - Cuong Chowdary MA LEFT GENICULAR microphlebectomy in the month of 07/2017 at 27 Years. Comments: 03/19/2019 10:05 Margaret Catalan DIET KITCHEN COOK left leg Gastric sleeve (0136735112) in the month of 07/2016 at 26 Years. section (49855481) on 11/10/2014 at 24 Years. section (39212588) on 06/29/2012 at 21 Years. Gastric band (5508475393). Social History Electronic Cigarette/Vaping Assessment Electronic Cigarette [...] 26 (more content not included)... Normal [facility] CBC w/ Auto Diffon Erythrocyte distribution width (RBC) [Ratio] 13.3 % Normal 11.5-15.0 [facility] Comment on above: Performed By: #### 1 3664364, 1270650577, 2586700, 5835721915, 1139148, 1344941, 6072339, 4597755 #### [facility] (DEFAULT) [address] [place] [address] 49737 Hematocrit (Bld) [Volume fraction] 42.2 % High 33.7-40.4 [facility] Comment on above: Performed By: #### 1 4637706, 6500727641, 3149097, 9547928966, 2017140, 4473202, 2640640, 5620862 #### [facility] (DEFAULT) [address] [place] [address] 86783 Hemoglobin (Bld) [Mass/Vol] 14.3 g/dL Normal 11.3-15.9 [facility] Comment on above: Performed By: #### 1 9227215, 8615110099, 3798344, 1547702326, 7586624, 3402633, 7108327, 6965689 #### [facility] (DEFAULT) [address] [place] [address] MCH (RBC) [Entitic mass] 30 pg Normal 24-34 [facility] Comment on above: Performed By: #### 1 9839425, 0857026096, 1189576, 7406039802, 6728937, 6490549, 9236163, 9291571 #### [facility] (DEFAULT) [address] [place] [address] MCHC (RBC) [Mass/Vol] 34 g/dL Normal 26-37 [facility] Comment on above: Performed By: #### 1 6776333, 6132034752, 6278581, 2071360399, 6440151, 5572163, 1732624, 7852099 #### [facility] (DEFAULT) [address] [place] [address] MCV (RBC) [Entitic vol] 90 fL Normal 81-100 [facility] Comment on above: Performed By: #### 1 0734053, 8723960573, 2650466, 6662574379, 3203613, 7769373, 1648061, 2217673 #### [facility] (DEFAULT) [address] [place] [address] 63404 Platelet 243 x10 Normal 138-427 [facility] Comment on above: Performed By: #### 1 3850498, 2372748855, 4133799, 3984003501, 8480709, 3519476, 0000429, 9999006 #### [facility] (DEFAULT) [address] [place] [address] 28258 Platelet mean volume (Bld) [Entitic vol] 8.0 fL Normal 6.3-10.2 [facility] Comment on above: Performed By: #### 1 4342198, 2590186100, 9319166, 6381277825, 2584381, 1346757, 2243600, 6338951 #### [facility] (DEFAULT) [address] [place] [address] RBC 4.70 x10 Normal 3.70-5.30 [facility] Comment on above: Performed By: #### 1 0434958, 5188958584, 8323032, 2987253571, 5694751, 3468002, 2112278, 8719465 #### [facility] (DEFAULT) [address] [place] [address] WBC 7.7 x10 Normal 3.5-10.5 [facility] Comment on above: Performed By: #### 1 8452725, 1050820551, 6075688, 5157186028, 9475540, 7600907, 1090996, 7106064 #### [facility] (DEFAULT) [address] [place] [address] Man Diff? Auto Invalid Interpretation Code [facility] Comment on above: Performed By: #### 1 4162317, 5438881823, 5447060, 4722343402, 9070511, 6530802, 2557442, 3843758 #### [facility] (DEFAULT) [address] [place] [address] CMP Standardon 02-27-2024 eGFR Non AA >60 Invalid Interpretation Code [facility] Comment on above: Performed By: #### 1 7764130, 9014615397, 9206717, 2750991214, 8914548, 9054846, 4019939, 6163921 #### [facility] (DEFAULT) [address] [place] [address] eGFR AA >60 Invalid Interpretation Code [facility] Comment on above: Performed By: #### 1 1085064, 6103451169, 0328113, 4933171905, 0284408, 2695162, 7591104, 2095615 #### [facility] (DEFAULT) [address] [place] [address] Albumin [Mass/Vol] 4.2 g/dL Normal 3.5-5.0 [facility] Comment on above: Performed By: #### 1 6908958, 3961038469, 7268795, 5491842956, 0050873, 5559072, 6116027, 0187810 #### [facility] (DEFAULT) [address] [place] [address] 84562 Albumin/Globulin [Mass ratio] 1.4 {ratio} Normal 1.4-2.6 [facility] Comment on above: Performed By: #### 1 4104851, 9321214761, 3150996, 5783386633, 3942498, 1791094, 3050852, 6789417 #### [facility] (DEFAULT) [address] [place] [address] 49769 Alk Phos 56 IU/L Normal 32-91 [facility] Comment on above: Performed By: #### 1 5157891, 2816493330, 4584092, 6310533224, 4628629, 6882906, 8114154, 1735117 #### [facility] (DEFAULT) [address] [place] [address] 13085 ALT [Catalytic activity/Vol] 22.0 U/L Normal 14.0-54.0 [facility] Comment on above: Performed By: #### 1 2293350, 0749729696, 1269034, 1918016997, 2346610, 7440237, 8701784, 5815703 #### [facility] (DEFAULT) [address] [place] [address] 96182 Anion gap [Moles/Vol] 10.5 mmol/L Normal 5.0-19.0 [facility] Comment on above: Performed By: #### 1 5234627, 5169585662, 4774458, 4761670089, 6817923, 3938781, 4324833, 1464564 #### [facility] (DEFAULT) [address] [place] [address] 73102 AST [Catalytic activity/Vol] 26 U/L Normal 15-41 [facility] Comment on above: Performed By: #### 1 7232262, 2852710899, 8943744, 9326280232, 2508944, 0076988, 7850918, 5094266 #### [facility] (DEFAULT) [address] [place] [address] 99049 Bili Total 0.8 mg/dL Normal 0.3-1.2 [facility] Comment on above: Performed By: #### 1 7764767, 2223280052, 1022401, 1303823903, 5333861, 0720538, 5459772, 2002261 #### [facility] (DEFAULT) [address] [place] [address] 70209 Calcium [Mass/Vol] 9.0 mg/dL Normal 8.9-10.3 [facility] Comment on above: Performed By: #### 1 0468159, 3137831436, 8279295, 6731550862, 3411292, 9093632, 8580372, 6412168 #### [facility] (DEFAULT) [address] [place] [address] 04987 Chloride [Moles/Vol] 105 mmol/L Normal 101-111 [facility] Comment on above: Performed By: #### 1 7978906, 2376900688, 6486178, 3103074125, 3353137, 7204905, 4741835, 7584515 #### [facility] (DEFAULT) [address] [place] [address] 67639 CO2 [Moles/Vol] 24 mmol/L Normal 21-32 [facility] Comment on above: Performed By: #### 1 5344552, 6648850605, 7926448, 6220444054, 2276705, 2781263, 2714916, 7742932 #### [facility] (DEFAULT) [address] [place] [address] 07622 Creatinine [Mass/Vol] 0.68 mg/dL Normal 0.60-1.30 [facility] Comment on above: Performed By: #### 1 1867845, 5526294291, 3512370, 2799695571, 5093315, 4849311, 9532778, 9887764 #### [facility] (DEFAULT) [address] [place] [address] 31791 Globulin (S) [Mass/Vol] 3.0 g/dL Normal 1.5-4.3 [facility] Comment on above: Performed By: #### 1 6221521, 7399549534, 0201382, 4557304487, 4901073, 4036841, 4144588, 8256974 #### [facility] (DEFAULT) [address] [place] [address] 19936 Glucose [Mass/Vol] 93.0 mg/dL Normal 74.0-118.0 [facility] Comment on above: Performed By: #### 1 5043443, 5500319942, 9328654, 3521323690, 8390436, 2535841, 2455165, 0773792 #### [facility] (DEFAULT) [address] [place] [address] 36625 Osmolality 270 mOsm/L Invalid Interpretation Code [facility] Comment on above: Performed By: #### 1 3894697, 5092660129, 4130036, 3953435129, 6186558, 4306545, 7802078, 1158001 #### [facility] (DEFAULT) [address] [place] [address] 78860 Potassium [Moles/Vol] 3.5 mmol/L Low 3.6-5.1 [facility] Comment on above: Performed By: #### 1 3842922, 9814838728, 2187327, 6053129776, 4336763, 0427002, 6810555, 8518937 #### [facility] (DEFAULT) [address] [place] [address] 87423 Protein [Mass/Vol] 7.2 g/dL Normal 6.5-8.1 [facility] Comment on above: Performed By: #### 1 0656724, 9421507455, 0746742, 0908596102, 8034408, 4398601, 1609101, 0227415 #### [facility] (DEFAULT) [address] [place] [address] 85392 Sodium [Moles/Vol] 136.0 mmol/L Normal 136.0-144 . 0 [facility] Comment on above: Performed By: #### 1 6956171, 3451950355, 8241811, 2868121309, 0296326, 5683321, 4260591, 5243340 #### [facility] (DEFAULT) [address] [place] [address] 95879 Urea nitrogen [Mass/Vol] 9 mg/dL Normal 8-26 [facility] Comment on above: Performed By: #### 1 2548791, 2287041226, 2231576, 7822972718, 5905345, 3415213, 4083385, 6192950 #### [facility] (DEFAULT) [address] [place] [address] Urea nitrogen/Creatinine [Mass ratio] 13.2 mg/mg Normal 4.6-16.2 [facility] Comment on above: Performed By: #### 1 9678696, 0659650331, 9182569, 4966302632, 8378760, 3056776, 9716651, 7330270 #### [facility] (DEFAULT) [address] [place] [address] CT PE Chest/Abdomen/Pelvis w / Contraston 02-27-2024 [...] DT/TM: 02/27/24 2:17 Signed (Electronic Signature): Polina Palcaio MD 02/27/24 2:37 am Technologist: CB Thomas [facility] ED Clinical Summaryon 2023 ED Clinical Summary [facility] - Emergency Department [address] [place], [place] [address] ED Clinical Summary PERSON INFORMATION Name: LUCILA JACQUES Age: 33 Years Sex: FEMALE : 1990 MRN: Acct#: Visit Reason: Abdominal pain; ACUTE CHOLECYSTITIS Arrival: 02/26/2024 22:40:28 Discharge: LOS: 000 09:38 Check In: 02/26/2024 22:40:28 Checkout:02/27/2024 08:18:49 Address: [address] [place] [address] PCP: Provider, None PROVIDER INFORMATION Provider Role Assigned Unassigned Tamika Alvarenga RN ED Nurse 02/26/2024 23:12:50 Param Michelle DO ED Provider 02/26/2024 23:38:41 Abdulkadir Maradiaga ASSISTANT MANAGER QUALITY MANAGEMENT Nurse 02/27/2024 07:25:13 VITALS INFORMATION Vital Sign [...] recorded.. Surgical history: CT guided nerve block (9089138800) on 01/12/2024 at 33 Years. Comments: 01/12/2024 11:39 EDT - Cuong Chowdary MA LEFT GENICULAR microphlebectomy in the month of 07/2017 at 27 Years. Comments: 03/19/2019 10:05 EDT - Margaret Perera LPN left leg Gastric sleeve (9838450335) in the month of 07/2016 at 26 Years. section (73035432) on 11/10/2014 at 24 Years. section (95359430) on 06/29/2012 at 21 Years. Gastric band (4096942146).. Family history: Clotting disorder Mother Diabetes mellitus type 2 (more content not included)... [facility] ED Note - Physicianon 2023 ED [...] recorded.. Surgical history: CT guided nerve block (9665300260) on 01/12/2024 at 33 Years. Comments: 01/12/2024 11:39 EDT - Cuong Chowdary MA LEFT GENICULAR microphlebectomy in the month of 07/2017 at 27 Years. Comments: 03/19/2019 10:05 EDT - Margaret Perera DIET KITCHEN COOK left leg Gastric sleeve (6738860536) in the month of 07/2016 at 26 Years. section (94315183) on 11/10/2014 at 24 Years. section (48013177) on 06/29/2012 at 21 Years. Gastric band (6288311970).. Family history: Clotting disorder Mother Diabetes mellitus [...] ar (more content not included)... [facility] ED Note-Nursingon 02-27-2024 ED Note-Nursing Pt arrives to ED alvaro m 7 complaining of abdominal pain. Pt states it has been going on for a few days, Pt has history of gastric bypass done at a [facility] facility. Pt denies any other complaints. [facility] ED Patient Education Noteon 02-27-2024 ED Patient Education Note Education Materials [facility] ED Patient Summaryon 024 ED Patient Summary [facility] - Emergency Department [address] [place] [address] PATIENT DISCHARGE INSTRUCTIONS Patient Information Name: LUCILA JACQUES Age: 33 Years Date of : 1990 Reason For Visit: Abdominal pain; ACUTE CHOLECYSTITIS Arrival Time: 02/26/2024 22:40:28 Primary Care Physician: Provider, None Attending Physician: Maurizio Mast MD Comment: Visit Diagnosis: Diagnoses This Visit Abdominal pain ([id number]) Acute cholecystitis (K81.0) Biliary colic (K80.50) The [...] alcohol and/or drug addiction problems; contact the [facility] 17/04 Crisis Hotline -Text 4HDSD tl 768542. If you received any narcotics, sedation, or [...] with a doctor, nurse practitioner, or physician?s store administrative assistant for ongoing care. If your symptoms [...] we can reach you if necessary. [facility] Emergency Department has provided you with a complete list of medications post discharge. Please inform your helper teacher/provider of your visit and for further instruction [...] D (more content not included)... Normal [facility] Inpatient Patient Summaryon 02-27-2024 Inpatient Patient Summary [place] [id number] Patient Discharge Instructions Name: LUCILA JACQUES : 1990 Patient Address: [address] [place] [address] Primary Care Provider: Name: Provider, None Phone: After you are discharged if you find you have any questions, please, call [phone] ext [phone] to speak to a nurse. The Pharmacy [...] alcohol and/or drug addiction problems; contact the [facility] 17/04 Crisis Hotline -Text 4HOPE to 169426. If you received any narcotics, sedation, or [...] decisions or sign any legal documents [facility] would like to thank you for allowing us to assist you with your healthcare needs. The following includes patient education materials and information regarding your injury/illness. LUCILA JACQUES has been given the following list of follow-up instructions, prescriptions, and patient education materials: Follow-up Instructions With: Address: When: Peter Booth [address] [place] [address], [place] [address] Business (1) In 2 weeks 03/12/2024 Comments: Call for follow up appointment With: Address: When: Loni Provider [address] [place] [address] Medications During the course of your visit, your medication list was updated with the most current information. The details of those changes are reflected below: New Medications [id number], [address] [place], [place] [id number], [phone] acetaminophen-hydrocodone (acetaminophen-hydrocodone 325 mg-5 mg oral tablet) [...] problems or questions, (more content not included)... [facility] 02-27-2024 L Specimen: [id number] Received: 02/28/24 Status: MICHAEL Young Num: [id number] Spec Type: Surgical Subm Dr: Peter Booth MD Tissues: A Gallbladder (GALLBLADDER) Procedures: HE/2, Gross/Micro L3 Age/ Patient Sex Location Account Attending Physician Lucila Jacques 33/F [facility] [id number] Maurizio Mast MD SPEC NUM: [id number] RECD: 02/28/24 STATUS: MICHAEL YOUNG NUM: [id number] NIELS: 02/27/[address]: Peter Booth MD ENTERED: 02/28/[address] [facility] [address]: Edilberto,Lab SPEC TYPE: Surgical DEPT: [...] gallbladder wall measures 0.1 cm in thickness. Paper Steamer sections are submitted in A1 (gallbladder) and A2 (lymph node). CPT Codes 63309 Specimen: [id number] Received: 02/28/24-123 Status: MICHAEL Young Num: [id number] Spec Type: Surgical Subm Dr: Peter Booth MD Tissues: A Gallbladder (GALLBLADDER) Procedures: HE/2, Gross/Micro L3 Patient: Lucila Jacques [id number] (Continued) Signed (signature on file) Domenic Hopper MD 02/29/24 9973 Normal [facility] Lactic Acidon 02-27-2024 Lactic Acid 15.3 mg/dL Normal 4.5-19.8 [facility] Comment on above: Performed By: #### 2 283881 ####[facility] (DEFAULT)[address] [place] [address] Lipaseon 02-27-2024 Lipase Level 30.0 IU/L Normal 22.0-51.0 [facility] Comment on above: Performed By: #### 1 9272008, 4377613047, 6225496, 6610670901, 6368825, 6207464, 8628594, 7397914 ####[facility] (DEFAULT)[address] [place] [address] MAGR Intraoperative Recordon 02-27-2024 MAGR Intraoperative Record MAGR Intra-Op Record Summary Primary Physician: Peter Booth MD Finalized Date/Time: 02/27/24 12:38:12 Pt. Name: JACQUES LUCILA GOODMAN /Sex: 1990 FEMALE Med Rec #: [id number] Physician: Param Michelle DO Financial #: [id number] Pt. Type: O Room/Bed: [facility] Admit/Disch: 02/26/24 22:40:28 - Institution: Case [...] Role Performed Surgeon - Primary Anesthesiologist of Lead Software Tester Record Time In 02/27/24 11:31:00 02/27/24 11:01:00 02/27/24 11:01:00 Time Out 02/27/24 12:19:00 02/27/24 12:36:00 02/27/24 12:36:00 Procedure Cholecystectomy Cholecystectomy Cholecystectomy Laparoscopic Laparoscopic Laparoscopic Last Modified By: Bre Spaulding RN, Debra RN Myers, Debra RN 02/27/24 12:35:49 02/27/24 12:35:49 02/27/24 12:35:49 Entry 4 Entry 5 Entry 6 Case Attendee Dina Malcolm CST, Will Ortiz CST, CST, CST CSFMadison Role Performed Security Guard Security Guard Scrub Personnel Time In 02/27/24 11:01:00 02/27/24 [...] Peterson DO, Bre Spaulding RN, Dina Malcolm PLANER TAILER, Tru PLANER TAILER, Marie LEBLANC CSFA, Will Miller PLANER TAILER Last Modified By: Bre Spaulding RN 02/27/24 [...] Text: E.290 Eval (more content not included)... [facility] MAGR PACU Recordon MAGR PACU Record MAGR PACU Record [facility] Primary Physician: Peter Booth MD Finalized Date/Time: 02/27/24 14:07:36 Pt. Name: LUCILA JACQUES/Sex: 1990 FEMALE Med Rec #: [id number] Physician: Param Michelle DO Financial #: [id number] Pt. Type: O Room/Bed: [facility]/ Admit/Disch: 02/26/24 22:40:28 - Institution: PACU Case Times MAGR Entry 1 In PACU I 02/27/24 12:38:00 Discharge from PACU 02/27/24 13:40:00 I Last Modified By: Yarelis Schmitt RN 02/27/24 14:07:32 Finalized By: Yarelis Schmitt RN Document Signatures Signed By: Yarelis Schmitt RN 02/27/24 14:07 [facility] Magnesiumon 02-27-2024 Magnesium [Mass/Vol] 1.86 mg/dL Normal 1.80-2.50 [facility] Comment on above: Performed By: #### 1 8866972, 0928742248, 1789703, 1099561089, 2527211, 5592384, 1332021, 6374261 ####[facility] (DEFAULT)[address] [place] [address] Nutrition Noteon 02-27-2024 Nutrition Note Chart reviewed; 33 y o female diagnosed with s/p lap choly; diet order full liquids; patient with history of gastric bypass surgery ; no difficulties with chew/swallow identified on admit; encourage increase po as rachael; rec advance as rachael to regular soft diet; will monitor po with diet advance, wt/labs for changes; follow, assist prn. ts [facility] PTon 02-27-2024 INR Coag (PPP) [Relative time] 0.98 {INR} Normal 0.91-1.11 [facility] Comment on above: Performed By: #### 1 4128093, 2411133259, 3509873, 7754033005, 2924770, 5596823, 3840077, 3037370 ####[facility] [facility] (DEFAULT)[address] [place] [address] PT 10.2 second(s) Normal 9.7-11.8 [facility] Comment on above: Performed By: #### 1 [id number], [id number], [id number], [id number], [id number], [id number] ####[facility] (DEFAULT)[address] [place] [address] Test Serum 1on Preg Serum Internal Control OK [facility] Comment on above: Performed By: #### 3 [id number] ####[facility] (DEFAULT)[address] [place] [address] Test Serum Qual Negative [facility] Comment on above: Performed By: #### 3 [id number] ####[facility] (DEFAULT)[address] [place] [address] TnI HSon 02-27-2024 Troponin I High Sensitivity 3.0 pg/mL Normal <=15.0 [facility] Comment on above: Performed By: #### 1 [id number], [id number], [id number], [id number], [id number], [id number], [id number] ####[facility] (DEFAULT)[address] [place] [address] UA w Culture if Ind Standard on 02-27-2024 Breakpoint UA [facility] Comment on above: Performed By: #### 1 [id number] ####[facility] (DEFAULT)[address] [place] [address] Color (U) Yellow [facility] Comment on above: Performed By: #### 1 [id number] ####[facility] (DEFAULT)[address] [place] [address] Culture? Not Indicated Invalid Interpretation Code [facility] Comment on above: Result Comment: Resu lt created by rule GL_MAGR_ADD_UA_CULT1 Performed By: #### 1 [id number] ####[facility] (DEFAULT)[address] [place] [address] Glucose (U) [Mass/Vol] Negative [facility] Comment on above: Performed By: #### 1 [id number] ####[facility] (DEFAULT)[address] [place] [address] Ketones Ql (U) 40 [facility] Comment on above: Performed By: #### 1 [id number] ####[facility] (DEFAULT)[address] [place] [address] Micro? Not Indicated Invalid Interpretation Code [facility] Comment on above: Result Comment: Resu lt created by rule GL_MAGR_ADD_UA_MICRO Performed By: #### 1 [id number] ####[facility] (DEFAULT)[address] [place] [address] UA Bilirubin Negative [facility] Comment on above: Performed By: #### 1 [id number] ####[facility] (DEFAULT)[address] [place] [address] UA Blood Negative Normal [facility] Comment on above: Performed By: #### 1 [id number] ####[facility] (DEFAULT)[address] [place] [address] UA Clarity CLEAR Normal CLEAR [facility] Comment on above: Performed By: #### 1 [id number] ####[facility] (DEFAULT)[address] [place] [address] 22317 UA Leuk Est Negative Normal NEGATIVE [facility] Comment on above: Performed By: #### 1 [id number] ####[facility] (DEFAULT)[address] [place] [address] 72465 UA Nitrite Negative Normal NEGATIVE [facility] Comment on above: Performed By: #### 1 [id number] ####[facility] (DEFAULT)[address] [place] [address] 92274 UA pH 7.5 Normal 5-8 [facility] Comment on above: Performed By: #### 1 [id number] ####[facility] (DEFAULT)[address] [place] [address] UA Protein Negative Normal NEGATIVE [facility] Comment on above: Performed By: #### 1 [id number] ####[facility] (DEFAULT)[address] [place] [address] 19211 UA Spec Grav 1.015 Normal 1.001-1.[address] [place] [address] Comment on above: Performed By: #### 1 [id number] ####[facility] (DEFAULT)[address] [place] [address]809 UA Urobilinogen 0.2 mg/dL Normal 0.2-1.0 [facility] Comment on above: Performed By: #### 1 [id number] ####[facility] (DEFAULT)[address] [place] [address]001 Urine Source Clean Catch Normal [facility] Comment on above: Performed By: #### 1 [id number] ####[facility] (DEFAULT)[address] [place] [address] US Gallbladderon 02-27-2024 US Gallbladder EXAM: US [...] Geovani Miranda MD 02/27/24 5:19 am Technologist: [facility] XR knee LT 4V*on 02-15-2024 XR knee LT 4V* [facility] [address] [place] [address] XRay Report Signed Patient: Lucila Jacques MR#: [id number] 31 : 1990 Acct:[id number] Age/Sex: 33 / F ADM Date: 02/15/24 Loc: [facility] Room: Type: [facility] Attending Dr: Santa Estrada II, MD Copies to: Santa Estrada MD Ordering Provider: Santa Estrada MD Date of Service: 02/15/24 XR/XR knee LT 4V*: M25.562 - Pain in left knee ([id number]) XR/XR pelvis 1-2V: M25.562 - Pain in [...] Palacio Jr., Clotilde02/15/2024 3:38 PM Dictation Location: [place] [address] Transcribed By: [facility] 02/15/24 1538 Dictated By: Haile Palacio Jr, DO 02/15/24 153 Signed By: 02/15/24 1538 [facility] Coding Summaryon 01-31-2024 Coding Summary HTMLBase 64 VafqvmgfNAe5eJd+PGhlYWQ+PE1 AFIDaO09uqRCpbX0lF7WMCNzDAr tnTUCVXEpWHcOcjdSqCN5qnPPaO XJu IC8+GM8jIQIrBzetaXYtw5Z0jDJ 2J60zzx9bFWnzgPW1XHYuWzJqir ugs2newYg0TZsbRwbwTyGn HGOjwH07NCS7uA99Mf38lRPcqAS jl1dkeJj4VvZgEHGeTCN4qNedVR ekb1PwWBYnE54jgMDcw0M6 WYHodTwasSHqXaOliSL9lZ1uWOb ntkkid7psiivgNpn1wj88wPBpm7 F5vLD0F8OtsiR0YSQuuIHy RshinREMiB9rcvlsi7oeoehgSuY wFCLhDBq7MYt6XABhhFanWoOhVY 58AOY8GQBebrAfZ2JjPOCa cUvxAyZ9j3Y6Ak0VH8KUDmrgJ2M NTUFSWTwvdGQ+QS04eo45A7GxYb tqUul1QHIdYSC1jGU0yT5c JFIvFUffz1R1nQS0V7UqhxEbhm1 fn2fuGZWkASxbP00sfEMjh5E7AZ VwkQE9QBNupYnmRfBdaN71 Oyc+QMWruHoqb9EcZtulj9rzx5a akNs6BojuISMeyjAqsDslOJG9h4 JkXa0rNCQeuSX8bUA9sK4l QqZnOvX6CDptI458YuXjvRFpQhx nX68iI0MoeTW+NCAmOan6GGEaeN uwZY8iD7NuVIJrihdewIRq uRgiVJ7sTXJqkvdbWMIbnM3lAVF jN3l8GiBeMhY4IOccX6JiPBZirj wuLb76wJ2qYxQrVgB2HCtu G1DatzN7WKAubBRsODwhPOF6I28 sg9M3QXFwQFJeNVI4cXC0xH0hgI lnbjogbGVmdDsgdmVydGlj JZscLXptX378BBUvfOemFiAnILt uZyBEYXRlOiAgMDUvMDgvMjAyND wvdGQ+DTXdLFB6jDhlLZXf fSThKRqcSp2wmGqckIfiJO5pGMV lacolHLRaeK5wVOHreZByhTqgTB 5oWIAekgshg101RuWcMTL2 JKSydCLmJ2JehM9mEyJjFAXrCOP dY5QcnQCfTOgeJ852KIylGuY9KV HenvXrG8XaBKPpvMdoOoP0 s7Q7Jw2Zg0NcunboO7FscPLkItK jZoknDRr2C7YtCrvsgJC+PC90YW HvJC55TYq7NIJ4aTkcNLgi NQLjJ0NfrS2oBhKxFZBpTORmFzm +PHRhYmxlIHdpZHRoPScxMDAlJy VzxIxrBB9hTw5fFXFqGJCq sGsoxWKaGkPgr0ioDJGpVMzrTK6 naJxxO2LjpLY9RXDml5a8Ox12P1 2zT6EazCD+BIPxeZN5fIR9 hF0wYcYpXzG4NMfaD471UiXupOZ jLvosv6git4wihQu7MnH9IQDxic WnyRpwAUX7x6CsDv34S04l IHdpZHRoPSIxNSUiIHZhbGlnbj0 dfU4yWb0+TESkbRL4cIJ2eW4iAz OdZgV2ZGiqA767KjVlsFDb Ibenv7wef1ahpJr5QzCiGRDdwmK irQvoXRB1s3DrFs19E3TzhZktb3 VvUcq7gf32uVZqx8C1mEV1 A6QxSOYisnnrdSJjpGysZU0jWCU rwocfZEHhwB6pQNIgG9z8SuCvTe X0TAmkH4PueiR6FDYfqVBa HGLryYYBfO8xpksob0yfsteyHwE lEHTdENd6JWl1ARDwdMhkGfUzIS T5RwE4URH0tREnbK8laYgn otfyoS8ePzh+IFT1aBNzvKLEEN8 lOjwvdGQ+XGUsOPV4hEvrJVjyVK NxkK7bLATfJ2c2BhHrMzJ3 WBixI5IjtsY7OVQdeYNdPLBlcLN EaN1mogixi7xlsevxRxInDZJaZH c7QRq9RKBsuVqeCoVaJQF2 CcB9MZY8kFVyyS5jwRikkywgmT2 wOyc+DwczxOskJIW3ETn6D8GwKs p8MPSjoRvxAX8wvOKdWKbc Ic6epPnztCilED9cJFVqwawbb88 1ImRnz8dvUQSxrGZkOUuxGBD8C1 5fq5G6PTJtDWSpWCA0rPD7 sH5bkEypdekpeJWrfCrsveGpxHv hQZiiBWxuX442LXUfwUdrJrSoBX b6T7MgOfk7JFWepMibND0u jAQpJJhxAh4nvSfciItrEY0mNNJ zzbccb268RvIci6kiODMdtZVxWF tjVAH5D91wn4D0LKFuABTa XFS5bIN7mN4ojTuifydlaILqjEs bemFzmHfpHWwpZZgnW121CELouI aoVhGdtDd2C0ElFxq0SCOh sRtdJR7cxRBdPXefJr4qqAlnrGq zZE9dNFUtterbj526MxWuu8ooCR VdcSStGAbaSKQ5K64rz6C2 IZIxFDGzCOC5yXW0zZ9imOdbpvd gbGVmdDsgdmVydGljYWwtYWxpZ2 46IHRvcDsnPlBhdGllbnQg WZzkDOg7G2LmQhyjfYE+BO99HRU lDY13lWWeyORiw0xjjLg0YfAmOA ErZWX2gIiiVLcbf1LfKUSg L19rfHXgd6A8ZSPebWzxmVWwPjG ouWP0gO0kWZywayrbj5xvwtipFl xqs9ltfi09jK53R93pFGrl JCWnOKFqXELbUDJwnFgloq9wxZ0 wIi8+XMWxjXD3dVQ6gH9xUCThDq Y8FQylO617BdDtyPSuYqpg z3vpf3swiFc3KmO8WRZxjkRydXb dQVP6s2VuYa89Y55pITdrSRLaXO YsLHKnJLLyiXwexy3sbP6r Ii8+KSZsqON7qSL3jF4oCnNoMuT 1HOonD639PoEfoFCgWxabU46jX7 JvdXA+LLBqKgs5NCKooAfr FP6aqFIlBHzuTv6cRBR6IuZxZdF lFBrnY1LkBXXsdotztozrzFF0RM HwZSEkgD35Ot0lyHgwKJQv uRZHbL7xcjkgt4plsyznPvWbHNV fPJj3ESf8CHSguCqeWwWfZOT8Iq M0KFO5hOGvdM8arRzthuwi gI9iK1TsSALcxrrvHu19dT2iDgS hHbO4ZPgsHtc+NfUIImrlU3TKKZ tYHpRERNL3Q6LdBfs7HYWz hVupVO0lfIQaYUcmRt0wvIlqqCh pNP6sANIcvpygLTGmgJ5jEFEurM UfkQwtYR8cOUJnupmnd728 LqRiYIG3TGAfzVOjF6MwjQ4aHgA yVTNsNPJkG2YmjXDrTLwfM476UV onMeR2YBLphlAdJ0FnNQZp vTvxFlE4v9Q6Ag2mOH3cCn5sHKo 7UV67ML04rGKej1L0uME3E8IaNP AggmfkbpgepLY3UWTaHANb vF96fYTyFFfaCb3yo2O8l399HAR nSEIpbV32Hl3efWseUQNfyYMZvS 7laqncr1ltngbbDgNwGTSd TFu6LEd0JRYskZrtLxBeBRW2ZhX 3OSS8vGAzhT7toImzkdgflK8dSt c+XnYoZEIbuaE9F7NgEan1 DXMovMbjAY6zgETfOZtcMy1ohNr diYutUU6eSDPjcenoERQgtQ9cQT RqvZYnbYnnAO0vPCMfvjzl j185KqUxIXY0EWRrsLQjE9HtkO0 tMhUaTOAbLWEyD9LcdETwIZujJ8 50LTpuEgB7UFDiglBdQ3Ia RKNinOayVtU1a3D4Br2LJY6BMWO 9F8OlHdh9UXQeiJlcSM9yeSUwCT vkPp6oyTqoiTqqFH9jVFHp unxeRGPimD1oDBEhbZGpjRxhLG7 uTTUhgunoh331ByBqTZO4KYAzlV TqG4XkyH2yXbNxUURaIIUh O8YlrQRmBGioA074FQfxAhU8EEN qpzRsC1AwRTZzbGkgDcU8e7L1Cc 5PUDwvdGQ+WI67bf36C1Ci SouwVln7OSPdWSZ0bLE7qX5kIKI lORoni9R5kYG2W5RhsyYdgz9zl3 miUBLjGRyzV43emBCcp0C5 AXCzpZT6BJEvnMmkZdYocC78Pjv +PVTqeFjou5EdTolmy9htt8kvrT c6OpSlVNXaclAprQbjPWU4 j7KyNg47M63qGJmpVNKeLFFrMQY fEEFcsRkqtz5zmY6qSe3+PGNvbC A2qDW7xS0aWvIoKtN3CVmb O092ZmCraCJaHpffy5clh9dexBf 7VoSkNPYadtGsxTfkCEJ8g6UsRp 43W0WusNueb0UuVbm0fg52 nCOsm5S5pLV1R7EcMIRiwrktyQF smRrnGV4ySICortsbAUCirK1sGC QrT0k7ImOzBuJ8IOncH4Wq buE1CBNrlZTiWKQbmCSHnH6jbvi ju1ylvzboQlHzSXOsENq2HYv1YR QqxFjfAxKlHDE5KxX1XWV3 iRSceB7igTqhyafbyU9aLge+UGh 0m9qgnNBtTH8fnSY6DR93FU90eT Con9G0cNG7J5DqSWHrlwzo knolqRE1QVDiPXTjmJ68Ez0qjGw cEz2nJCJxFKV2FNWraFIaY2GbyW 5gPmJzXCDvPFLzO4MjfYTc MPzdZ331AQawNuB6KJIvewRsO2R fIEVutCtbOuC4i9P4Su6VRR15EP 91XM64aTEnx2A7xXI9R2Xd MXZvbjaydjxsqTG1MBRqWCAjvL5 7Hp6crQfnCr7nMVDqBMU6XFZrbK NqM4BxbH3zNhCyJXIwLSTc O2KxiYPlBCphW534BIqkVyN9TBR tfxMgF9ZfSRUhzGlcAgG4u7T3Zx 4RPm89KC06SY65oIJxx0V4 bBY6X1JsUSXcbzgpvyllaFJ9YPL lRQGshQ67Or3ceHrwJr4zQCZsMF A2VJKivXOvK5LolK7gDqMr SZBrDKJiN3LndYNbGZpbR947YUz cTtR5REXyiuHtU2GpWLKwcQznOb L9f8F7We7GHLhbiia8J5Tf PjwvdHI+UI77UZKtJB33sMZgpVJ we0jftAy0LjNuSDKlPBP8nLpxES suf5WrBRFmQ29qgCPcb0Z0 IGN (more content not included)... [facility] Progress Note - Provideron 0 01-29-2024 Progress Note - Provider [id number] [facility] Coding Summaryon 01-22-2024 Coding Summary HTMLBase 64 LkdnprvyCEd6qNf+PGhlYWQ+PE1 OHNOwY89jmOPrxE6bW7IZHIvSTl uiZSEAMIwPYhKlryKnUX1zeJTwI XJu IC8+AU3rDTFjWqzbzYLbp6O1tNK 7A27nwj9sKQywfVE4WIIeBeEewz gqo0tjtRs1SWuuHzsiHhBw HZVehI95NVI7eZ73Gp29nXTcqUD qs3vxqZs2MbCxCEPqIWE0rIpySG qpp5WrJWOjV73xhFOxf1O5 SCYgkNgegGKrKtXtzDY4iF4qXCn ewhxfq9cmzoifSve1ic55nOWij7 W3rOU5D7GteyF9DEZwjGCh WjazrDKVjY1cxdrre5kxlbqnWuZ gXDKrWWp5ZIs0KWGgwSemMkDpCG 75DTT3SMFomlNzX9AmLPCl sOqsWbW1l0D3Xe7VO3KAQwifN6Z NTUFSWTwvdGQ+IO48pp92I0FyQh jgNmw2BBIcSUK3yOK2wM1y RWVsHWaqu9S1iNG1Z6HyjlJbhv2 jz0yiWIQqTPhuV22erRVgp4M7TB YuuSF7EQKutYwfOnZbxX93 Oyc+IZJzdUezb7GeRgmzm8rwl7r vjRb3NruvSVUkszZbbRmdGWM4i2 HfIp6wDVEtgBN2eRH5nH4z AfEeDgZ5AVleY789WnJesNYbSwq bM72pB3AgrOZ+KNHjGeb9SSMtdZ ssND1bZ1QhJURqvumieZOc qKtgUI6mMKDgphznVGGuhT8hLJH bO9d4NdMhSrR9PSjxU5EyZKOtiy paTv24kH8dXbQqMcZ6AArz B4ZfmhQ3UEQqxSJnLRznNEC8C97 qf8H2YIYpBCNlCHS3rWY5cR7drN lnbjogbGVmdDsgdmVydGlj NLlsDSwcN781VYPslCxnHsTbMMg uZyBEYXRlOiAgMDQvMjkvMjAyND wvdGQ+ZGKsEEI7fNnxBXOf rBXzKAxgSz5kwQacqJwmXC0lQUC swsodUFGorA4lHOIanBYdcHqsVX 8pHJLblghsl406PbXzPKB7 ZEGecWHbB7MdsH4iZrCjJSPrAZX xQ8IjrEHdNXyaE523HSerHvO5QK HgvzIpK5EkPMYxfFftBuG9 g6N9Es2Gs4TudrqoM8LdyORxSdI rYxzwDTy1O6RhOwscaIP+PC90YW PkAI39ACo3EWA8zTagCMkv WMNzV8IptA0pGsToYPYnSOLqNlp +PHRhYmxlIHdpZHRoPScxMDAlJy VqdJhbJE4jFe3jVKTsUNOp mUwtjRYyXpOum7qmQEPmIVnkQI5 ruPvyU8FdpRR9AUMtd3n5Pn23S7 1bC5UcxSC+XAEvvCS5qKA5 nJ4bNwJgXhV2SVahT569FbJgpUV oPxjys4tla4cszCv2FgN0GMPxyw ZkfXthGNA6e0XhFn67M74b IHdpZHRoPSIxNSUiIHZhbGlnbj0 hwS6vUm5+XTBjsCO9kHW2pV8zUw TnBrX2VYncU360AbGdxOOp Vknes7fnt4axcMc2GpHvBWVpcuB phNrpMRH1n4ZbWn97A9MpbNzge9 SfTfo8mg46jZQbt7P8uYR6 N2AhVFOueizbpAFzfFrfXD6aEEE eulawIRKawJ4vPSCwJ8e9MoXdIv A8FEhlR9QagtS4ODFlsBZh RMGkqKKLnZ9jzkpkl1jjrtstRsC cQEVzNFh5HCt6KVEmlKnbFiMuQK J8SyS9FAO1hKIjbB1zeMhl vathyF8kHfz+EQC8aAIuxHJPYZ8 lOjwvdGQ+SGIgAQJ7lKamNUueSF RtjK9cVWAlU7i8ThYcDqR7 SRfiT9GfncK2NXFivAZmOVNubIS QyC0usjkxb5zsjjcyJrYnSTEcJI l6JPf7JRKamPgpYsSrRRS4 OnP4GYC1tRJajB4ajPkikyozzK4 wOyc+TfkuuBbcCBP9IZq7P7TgCw l1GGSyfUncOF6eiRYtLByg Ty2acRsdbLydRA0lXNCszhegc52 6UgYeg7azJDOmhOWzTSndVUK2V8 3wn6Z3HEIdBRYbRXB3vXN3 bI2hdJvzmktcdHKckLeznmZyeMn eQHxcNKmrQ489UDChoWotChIgZQ w4T5DnApe0JLFynOecAR5y dVLcMPyjDm9ifKdvuZwySO0bCII fzarsq570DlCjq6aiTGWjgJYbIA yeFQL7D28tf1D4IDTqARFu SXH7bZC4cG2fuCbhtpnnfLCauNh ubzRhhLfcGJrkKTuzQ318ANBoeO wmYnEkmSa2U0ClDdn0NXPu zHbxUP7wpINuXDszNw2arLkshSe zAI6iLCEibuefz358PyEqn2efDM EpgYTcHBuoYDP4E10fz5O1 FFEqWMDbQLH6nUA1cA8rtSzlmmh gbGVmdDsgdmVydGljYWwtYWxpZ2 46IHRvcDsnPlBhdGllbnQg WLpjUFm5E4GfGgaxrFP+YT83UKO zHZ28iBCgxRHdp4vgmAn8ViKmTB JjDPJ8wAyzGRwwa7MxDFLz U50ptYTip7J9NUKbfAsofCArLjY gfKQ3rK6dQQbmssyqe5hvjbaiRw wze8iwtd49oD45Y16dETui DWMhRWRjIODiTASqyLfdwc6znK8 wIi8+YMWxcQB4zCR0nR5fYKZsXz G1CMjnV803FoHilFRwRqmc f9pst9jnkHg5YsH0EYEcfuMjxAr sTBY3o1JwEr44M35nACeiOHYjWW LmBUBaSAUdiMofyn8oaH4u Ii8+ZVGjrDM3fKJ9gC1mZjDlDyV 5MAguZ503RwRpaWSfDmdaB34aZ4 JvdXA+HFFwPkl0NWGsuFrt AN5vxWCnYGrtOq4oDFP0CyEuRwT gHUuxN1FwUTCfgrwxquouzVT8DE TjTPVmdO81Es7kvFtgVFHt aJKWlH1esbxox2trkkbnLnIkHQD vQNk0JTj4NONbpIomIlRsPZE1Im D4GPD6pBCdnS0czBwdvhaa vC3eS0JxADEehdbdEb68fZ9wExS sZvK6BTtoOrh+ToEZClglG7JQMC kCFwMZTMY8L5RbGrs0EKCn bSpoOG3pwBSpSHpzCe5aeIhlyFm iWP3yRPIcasdxNZIdxG5cMXFokC FglTqgDU2eUAQhcfazc452 ZdYcDKV5PMSoyNVzK3WsnC2gHyF hLXFqPXEkA0HxpDXlLQtaF567SP xzOlW0JRFekeQsF4YzQMQc nCyxCpW9p4Z2Sr5uVH4iHy6xIGb 9AF59AQ08mBUrg8R6tAX9B7BlXF GzxdjugzlkoLV5NOSvLMXn bR31tYErNCxdRc5md2D1p450ZHM eKKBdlD38Cb4iqRciKWQooJMIkI 5opecth8ygpwjyCvLrWNCg QZu8TTd1DJLjcCdwTiZgDTW4TtR 0BTG2iUAovI2raDkwudodzC5fVq c+UzLnLQHnwbV1R0PtQaq7 FIFoeBzrVO8wqUOtQJpcAp2sxZt rpCugXC5bVPNjhmnjYVJbxM2kNC SgaJSwmDcwDA2iQLEbutgy m652VtFmZMI8QXRcrSQpM8KvsM2 xSuZrZWYlGOShO7VqxZMpDDdkH8 20DYyfEoX9ZCPkdzZqQ0Ms PMJchJdqVrV2b6E2Dt7SNI5PPYB 2B5XuNvs6QRYmrXekXP8ziGVdSO nmHe3wjLzlqQmiAR0kWSHz guitPQUpsF6mLFLnwCYtyTarVU1 kPQQwknemb159IvLvEZW0GIFvgI JsU0SbmH2kWiSwASYhQVAe X3HhwCUeIXpaA795PXkoNxL9NYY cgrFpJ1KqQXOkcAfrLbW3w7Y6Nt 0GIJujL6FtM4MtyFhcuYS+ ZX73uf94T9HfRbgvPqm6KQDcCJD 4eEJ6qU8eDYEtZKiiv7J2eER5G9 KminWlaq8nx3skESQnLLel G75snRZri2Y5YHMhiPZ6XFXihVb oFtEkqI36Rok+KVYvrJcrk6UwXm koc0ydl4saxMc4YgGeSMIz vtPedOaoJEP0d0RkCq24K77aXPy lLFCaQZByPVCqUMWpjSpnow9xpG 9wIi8+KAYakVU0sZT6vB6c JjFuIaV9GDwuQ721KnLsnLUbAgf wc2cfw0rekYx7UnIbNMGvmoImjE rkMGH1s8OvDu31A5OtvTeu z7CbIvh1bo40eKAzz3W9qGD7J8C dZOOdwlynpPYrxPuyJS1tAMJaai eaBFYrlR3mERYxO4y9RvBi QmR0FJgsH7MssxD5OGIerZKbOQF ldJTLvQ2aideqe3epylpwKyNnIP GwVGf1VEj0WPFvcAhcDbNr VFK3RxR2YUU4bEGotU2niLhymqd njM7wYnf+YJe0s6ylvGMjGF8atA C9TA11NL78eSWyr8K4wIF3 P0CyBQBrywlmqixpkML0IUPlSYW cfJ40Ur8mqUygYv5tVGFnTSI2TL ZsdDKiY6QwrC1fWmSzJDFt VGVsZ2WayMWwZYllM754CLxsAaH 5QARngyVfF1AwWPWqaFbxExA5e3 C7Xp3VNK43OU26PZ32pUEa p0E0zWH9Z6VyQBOioroctartsZI 5NOKbWOPbwN54Pz3nlLyeRo1vWN TvNJK1BHNagBGlK7GrhH5l FqVdCVLvBECkB6XykBVtCMllI49 0QQkwIfP7JCOnqdSvI8BaSJWhjB chPoC5z4U2Md0XZv27WJ42 BT88dVWoi0R2hFF4W8FmICBmcvw lpuxjeJE4DKAuEWHgkL87Gp0wqX oiMa1yBAZjTHS5IBFunTTq O4BykF2gJbZpIIAuCRNgG4XxpVC aTWbuK145ZIqpJiU4PJYkeoNvB8 JzQNKvuVvcNmM5h9Y2Sg2O BShuajq5O8FhGhwkzHR+IE04FPO lTL12fQKwyPFaq8wqiZt7OqVpJF CeCKT3eAhqURfta4XpGBBf Y29 (more content not included)... [facility] Coding Summary HTMLBase 64 VuwajthlPEl7lQj+PGhlYWQ+PE1 MCMYyC99jaXCwmT1tO0HQGRtXBw gwSDEPMMaKOjXymfMoFG5giRHlN XJu IC8+QG4cEBWmUmpiwMOjd6R7cZF 8P46oek7hNBlglVD2RJKdFrBmhc bvl4wmgYq8QDdxFdzbQqBo JLDyaH59OOV8pW42Th14uGNzaVX tb1zevVx6WgZeLHAoUVO1rJhxUN vhb4ZzQZIgO46fmRQzc3H9 OBZgdCrruTMtXqLvbKF0lN9wPWp tmeaes0kxycttUzf4sp01uEIuu7 S8lHW0U6IhydX2JJGuyMPj GjtfvBNUaI2zmztct7dlbeowHlD mIVBkWPt9BKz3KJWdfJgzVdYfSI 21OVQ0OOXvjcMaX8PnNWZz lSioQdZ3c4W9Cp3UB2IITkbpW1I NTUFSWTwvdGQ+PD09ii38W3OpAa gzSop8YNPfHPO0nNU9yI8u EWWjWJswk7P9iPA7M2FiicUtqe7 cl7pgRBGgENpcY46dgXVoh8J4LI FsyLF7XXTeqAcuRvUiuQ55 Oyc+CQXpzRidy4VnFvdqm4emr7s zfIo2HywpQNLodbUreWtxIYY1i6 VzXn8oODFbrKJ8gZJ5sO4g RuXsToL5KHrrW036XiHnzXPnRdu pY92bI8GnvMW+DLPaEvd3TGZsdT veUD7iP8LuSCRhsifbqQHm nBxlWZ4yKNJnopdqNHOvkA7eNZP cX1n2QyJlJkW6VSslC5DsJWNpau rnOu06hS5zImTrDgP2ZVzn A5NtaeK1RMPkxCCvYNdjFLW5A15 ap4H6IJRgRZNnRZQ9aCH8tO9hqI lnbjogbGVmdDsgdmVydGlj MWrfDKxyU305ZYOyhSicGxIeAMb uZyBEYXRlOiAgMDQvMjkvMjAyND wvdGQ+YLYzSTO3hQkvLQAs cSFrDZwiPe2ocEvcbPvmTP9zYNZ agnjbJJRnvV6dBZTbxXJauXefDT 0rDDRyxinwe093YuOdEHF3 JGSxgIQmA2IrpL8yUtQuTPDmLCH bU0EniVMdYSexG624VOgnEkR8WU KqfrLtV8NpHQPnoDhhOaK9 b4O8Aa7Qy6MghvnmP1BngVZlAsP jUthyAQr3M9OyQrtbuJU+PC90YW RmGP22UHl8SHD9gZtvQVmi DZWnS4OdgI4aGlJmCQEoDIKvCgu +PHRhYmxlIHdpZHRoPScxMDAlJy LdeShsSZ4oYh8fKSWpYNCq bDnmnLFlRwZua7kuSWJjCYftHF2 qgHkfJ8MakDC7UOKfi1g0Ct55V4 0bY8KkaCZ+ORXztCD3sKY8 qM8cBsTvHzT9TBovI991YwLogBJ yImcje3pfd6atjVc7YxI5CKRqmo HtqIjfBTO1z8NgPv21U08h IHdpZHRoPSIxNSUiIHZhbGlnbj0 aeM9pDt0+VOVabPA7gXT1oD6bTq MpJfT7LVinL406LhViyVXs Kukpk5tfa5xchXl7YtPkBNVffiZ ugUtjDXS8e0DpRd48M5IifFovl7 YwPon2wd93zWSuc3A5fLZ0 S0UuNCWsrjgrtLNboTadUC4nBHT cinqzNDHzgT0tLVSfA3i9FdMwUs T7NNbpS6RormP9CBSgdXOr BOAqpYGTjY8uiwjxi4mdkzwzHrD iLYNpVIy3VGo9JLLnfLqwYgHqUO P7FfM7OZT4xRFlvS9seGuk tcmnrE1nJon+FTL4iCYooCKOXC3 lOjwvdGQ+AFYaBCF0aFgnOMyaXG CedS9eXANtG2f2FiJdYvB1 XLcvV1WzihX1IKXvwBAxQFSfvXA WlQ5ctbvtw1yrnimxObXmZCGgQJ m8YSm1FEJwyYpkJrUyDTW1 AoT5DJX8lAFmwM5kwTkllunjwS8 wOyc+FdzckFzqADO9VSx7O8MqIg n8HVBwyFaiQY0zcNLtVJkz Tj0vrZevsSbjUG5kUXYyxuqso67 9BjIog9mcZVNvtUDgHSefDLO5V5 9tt1X9PMSoZCQhAXK6wND5 uS2wjPvsxwmefGRzzQsnziXtoBg tGRpjDCmyS917FSOxmXkzMyNtZI b8H1IoSrv1EPGkvPxeFR5q eGJcDCjoCm3hmCkxtXlbWP4nECJ ttlsgf143YfItl0iyLBIerZBxUO dsFLG1Z41ib4H1MZUfLEJw JRB9eGR4fB7loEmcmkbdcNJolTv xlnEypZeqGJgdYBdaX513AOVrvQ xcCwQpzSb8B4DkKfd9NSXu cQieKN2eqKNfGHmiTt1trHavfXg hJK3jMBSygreyn573UbYqh5emRD GawTUdPFetTEF5R66jo3D2 RDEkWNYrIOM4vRM9iC9shEbplol gbGVmdDsgdmVydGljYWwtYWxpZ2 46IHRvcDsnPlBhdGllbnQg NTpxHEr6M2YuMuqsuEF+ER77XVX uWJ09fZSklXMzm2sktXx4BkTuRQ MlILW9eJmoQSxwi6BcLZCf W16tfYChg3C1KLKeoGzboGVdTvO tiUH6nJ9jRTpqqihqv8fcnbxzMm qvx0dzte33vR50T32aLDry BNRtZVVgHDNjQPJxoNgjyn9laO3 wIi8+PZEqdXL6cXP6jF4eIDTaGq W5UQklH228MeYctYVlVmwa t3dae6mdiHc6WuX1HUYwdkXgyCr eLSS9r5SwNf48I56nECllEEQiAR HpTANqZJTxuBfdhg3svH2c Ii8+MGXddHE1yWD0uK9kFqHsHmZ 9ISlyZ503GdRbpNJsUioyE94uT7 JvdXA+QYDeDzs6YXMsuCtv LP5qzJFnYMnuQi9kIYI3PxGyXtU eZQoyU8JqAKVpxisxwpbweBM5PO QgPQQpxV64Mf7fsDogRYQy dADAvE6xmzvgf4owxupyJaIlRFE pLNv4EVf0ZBDwyTmkDkMdXBA3Bw Y7SNM7xSAauA6vfUraahaz mW8hH4EqRQHoiupbQb12lH2jVvL vAuJ6KOwbTnu+XkEMGnbgM1JAIZ qLKdABCCG7N6VyGjn3MINm gNoqPN7egHYtYIqvNn9piWdsvCg jTK9lYXVqppbkUJDeeS1wKEQimN HurKvkLD5oHRKgmvojz461 QtIrGLU4MJSzwGUdY6FyyD4cVrG hXOZdVEEuN9CmbXTuOKrvO403MB hxGpI5CPUkxoEvE2NbHPTc wGqaLuZ0p2Y6Dm1jRA5sFw5vLAh 3WI84LB55jUSbd8G2tFN5K7YzOK UkgfxgjqlawMI2XEIpISSr uJ28xPVkNXwpKu1rr8T5i326PDZ sGBGjrN29Cd5raVgjRUHlqLWMpE 8hepkof5wmijqvCbWmZFEo FUa6FAx2JHTeiUddFuBnVID5LtU 1ZCJ7bPPdrC1alLmknucpzN7mFe c+ZjGrHQVfgtB5V1YzYjj5 ZOGjzNvnXP3aoFRqJSahPn3tlXv ozUffKD3xHJXdveozQPMvaW8lKJ PqiUYfeAkvVA9uFPZiedcd g910SnNaKCD7WBVaiJNhZ4TksQ6 uGcSrZFXdBTQiJ6NfoYMgOAudP0 02TWgrQsU7ZAOszuDpU3Dj BPBbuCemTdY5w4X2Mg2ONY1CZOF 2C8VcPus2SNThyCsnSX8efYVhSB zjEq2pzGhcwDxbXT4yUKAv wkugWRAxcM0sRWRckEJlsUhsAQ2 qERExtneld897NrYmDTG4PKWmcU XlM1VgkY4bMnStLSZlJSCt N1MjlOTnWOjkW871YBtvEuI4ITG qyiGfR6JkZBOrzVxkDjR6v3J4Di 5PUDwvdGQ+SQ98wn16Q8Uz ZeaaNbi9EDQbFEZ8xQW0bB6wHGZ kWVtax3H7uVM1P7IgarCplm6wj4 iqVKJmDXrbV53owLCes4U2 RZQwcCB9XQTloCkkNgKdrW93Yao +KGWgfXwjn7RvHtnlb2vcc1qmtI n7GtStBGRkjaWvhSwtWZI4 p5LmOd51O69rOXshVAAmSZMmUKX mONMokOzewt8oxO6rVf1+PGNvbC L5jTQ1iC8hFjMkExF7WOzu H406DtLqlQElFcrer8fpp8urtZi 7NfHePVRabxRwqRebGNU2f7NxGh 86Z0RlePasw4TyBec0qe47 fFFmj1Q8tGU4I9GrJLCguvcdrTI jsNdwQH7nSJGljpqnHHYgoW5cEN CjR9g9HeGlDbN9KSwsW2El bkS5CGPnyMKmSPZbgMFYdK6bhnl vs4ehhnslSgPhPXBjNQd1XAt7QD DkgGdhDnAvOED7CgK3FOL9 bUTttI8tbIwyjzkpiX6oSsp+UGh 1q6ghrROrWX9ugGQ6YM46RN54xM Xlq7T7xNA2W8DhNYOlixxz wscxtOY8KZQcGIGrtZ38Uf5paYs cEa9hSUWwELD3JGVgjEHmY8EjpY 0vCqOkSBBnJXReO3WvcWHd LPrvF840GCuuHaH3SCPllgNtU8Q xGKPxdTiiVzE4o5R8Ik0MQM23XH 67ZR21gSQjd9Y1aLA0A7Tu FIOecupuspmaiWK0HUCwCBLptT7 1Lh4sdVtxFx5lRQLhCGR9ZFEmiO LtR7XmrX9xDlJfUTJuDYTs C6KbdYHpKBvqE249GAsyCoM8BEL vdqEdG1LzGCVomVuaAjR7e5F3Uc 5NMl13PY40NA65oNQrk3J1 gDV1K4ZiQCSbowpjrfltiCU8XIK sRLUttJ60La6klHumJc3xDCGzTN L4OJWctUHhW6TubS8fEiTy DZOjLYMbE8SyqGJjBPuxQ676NSg nCiA4NNLiuyIcU9JkEYGpfPoaJv W6r5M1Qj3GLCpfogw7C0Qr PjwvdHI+FF24PKHmYQ79xRDqtYA ss7vkbMg5JcTiGMVmTIX5hFzvUA cmu3EuCIOaK09daDTtn9D1 IGN (more content not included)... [facility] Consent Formson 01-15-2024 Consent Forms [id number]#1.00[facility] Consent Formson 01-12-2024 Consent Forms [id number]#1.00[facility] Controlled Substances Agreem entson 01-12-2024 Controlled Substances Agreements [id number]#1.00[facility] Inpatient Patient Summaryon 01-12-2024 Inpatient Patient Summary [id number] [place] [address] Patient Discharge Instructions Name: LUCILA JACQUES : 1990 Patient Address: [address] [place] [address] Primary Care Provider: Name: Provider, Loni Phone: After you are discharged if you find you have any questions, please, call [phone] ext [phone] to speak to a nurse. Discharge Diagnosis: Prescription Information: If you have been given a prescription for narcotics, seek immediate medical attention if you have any difficulty breathing or any sudden status changes such as confusion and sleepiness. If you or anyone you know is experiencing suicidal thoughts, mental health, alcohol and/or drug addiction problems; contact the [facility] Recovery [facility] 17/04 Crisis Hotline -Text 4HEXM gn 874253. If you received any narcotics, sedation, or [...] decisions or sign any legal documents [facility] would like to thank you for [...] Disease Control and Prevention May 2014 [facility]-12-[facility]24 [facility] Intraoperative Record [facility] Intra-Op Record Summary Primary Physician: ALEC PATEL MD Finalized Date/Time: 01/12/24 11:47:08 Pt. Name: LUCILA JACQUES /Sex: 1990 FEMALE Med Rec #: [id number] Physician: ALEC PATEL MD Financial #: [id number] Pt. Type: D Room/Bed: / Admit/Disch: 01/12/24 [...] Sara L RT (R) ARRT Role Performed Lead Software Tester Lead Software Tester Bean Snipper Time In 01/12/24 11:40:00 01/12/24 11:40:00 01/12/24 11:40:00 Time Out 01/12/24 11:46:00 01/12/24 11:46:00 01/12/24 11:46:00 Procedure Block Nerve(Left) Block Nerve(Left) Block Nerve(Left) Last Modified By: Reba Liang RN, Kelly RN Weisenburger, Kelly RN 01/12/24 11:46:22 01/12/24 11:46:22 01/12/24 11:46:22 Entry 4 Entry 5 Entry 6 Case Attendee Mason Garner RT (R) Dina Malcolm THOMAS F MD ARRT PLANER TAILER Role Performed Bean Snipper Scrub Personnel Surgeon - Primary Time In [...] ARRTPatsy James RT (R) ARRT, Dina Malcolm PLANER TAILER, ALEC PATEL MD Last Modified By: Reba [...] E.290 Evaluates (more content not included)... [facility] [facility] Pre-Op Record Summary Primary Physician: ALEC PATEL MD Finalized Date/Time: 01/12/24 11:49:22 Pt. Name: LUCILA JACQUES /Sex: 1990 FEMALE Med Rec #: [id number] Physician: ALEC PATEL MD Financial #: [id number] Pt. Type: D Room/Bed: / Admit/Disch: 01/12/24 [...] Sushila Quintero RN 01/12/24 11:49 [facility] Patient Handouton 01-12-2024 Patient Handout [facility] Test Urine 1on U Preg Negative [facility] Comment on above: Performed By: #### [id number] ####[facility] (DEFAULT)[address] [place] [address] U Preg Internal Control Pass [facility] Comment on above: Performed By: #### [id number] ####[facility] (DEFAULT)[address] [place] [address] Progress Note - Provideron 0 01-12-2024 Progress Note - Provider [id number]#1.00[facility] [facility] C[facility] Summaryon 01-10-2024 Coding Summary HTMLBase 64 KblhzavfRRv6yHg+PGhlYWQ+PE1 LOAGbN24kfOZeqQ7rP1TBVQzNXv xdGZXNRCqSKzQwixWlIE6fdNXdW XJu IC8+OV6oLLTrQwybsXUhe7Z5hHU 3R41wug0lLUxuhUL3VMZaDdPuji otw8hsvXc7UZvrCsxsDsPq GLKclD80MJG7sG86Wu59nPGcsEF df4gcpJq8VnUbPXRzQBK1nGxmBT mir7EiJKZbY62akMWbf0J7 ATZefJvxsJZdPtMqnSZ6kM4jUMw cofxcx4lnezxdQfh4so10kFSbp4 F5hSU4U6QmxuV5YFOtxDVj JuvfnWXIqE7grttyu4txmfcuNzN qMYIvGOl9BNf3BHWchStgGfLaMO 46CZE9IKYlqaKzL0RiKOWm aLhyHvH4r8C1Xq3JL7WHCxbcD9B NTUFSWTwvdGQ+RX30iu45F4SgAs jgZql6PHReMHA4cQO9gT6q HOUcZUpwl2O1kEQ5U5LmenZihl8 op9iyIWGwOIgqB69ijGTfm1K7AC TttDB8UOKwgLejXbSpoG02 Oyc+QYQrvHdqk3KiWdgkc8qic2f prAd0XkscZNHrquDulFfsXYS2x3 VpHe1tSBAlzXM8eHV7fB6c JrIvUpG1WQwgR665QpQmgGVdLdf xI18hB5NrbZG+DNNjQrw4BKIswW qcBS2oJ1OfMAMuwglxaZPi rBcwBX6wAQRinibiBSVnuW4oMLL kM8u9IkZjZuJ2VIjeD7MgRWScee teUp03rH2wRjUpReC2GIzq D0KwyaU7CNAoqUSmUAquVSA3L22 de8F7SVSfUERsXOR3wLZ6wL6pqX lnbjogbGVmdDsgdmVydGlj KTrkWIaaZ027FKBvgCwcHoRxIOb uZyBEYXRlOiAgMDQvMTcvMjAyND wvdGQ+FYShJYS7hIhcMOPh bOUkSJgkIm0smDpmkGtdFU0wLZX mjrbdBJEcjS2aRCCnlTHidJqsTR 5vYPZkzotcz246KhYcHLG8 AARxnHKoT4IzsY2aGvIpVQSrFWR zI5YkyWKrRPbvD307LSndWrX8QB JvthWoU8GwEYOenRotXlX8 r3W3Sm4Jc0OondpmA4VlvFXhKtZ dMnkbJQd1L7ZqCrdrxRK+PC90YW NvFL14MVn8USF4zDmkPIgi BQUpY6DjvK5fQdKfVDYqXWDoTrj +PHRhYmxlIHdpZHRoPScxMDAlJy XjrPbdHE1xRl9eFYYrGLVo bAwhcJYiFbPfu2lfSIZnZVvnZY7 yqJsbG8BczIG3HODhy5a6Dj87X4 0kY1VieOU+SHAweCO9vBR8 fH7oRjXcTtN1KYxkO858ByGkgWM nMxwqd9uri3emrCq6XsY9TRRywm ZneKhrDVE5d9OrRz22R05y IHdpZHRoPSIxNSUiIHZhbGlnbj0 uzL2gSg4+YZNkbZW8aOX9cF7kRl LzIqA6QRbdM004ChMrrNEa Morcx3qlj0xcrYg0ZyJwJBNlggS uqRlkNVL9p8KoVn48E2QhzGtfo1 VwMfq7kv87aPBnb8C8bFC1 C6XxGVSnngvowGKjgGtgAP5zPCT anrwtGUWdkE7fXJEmI8x3UtXnSb Y8UPbgR1SfhuU8WYIomZBx OTXpyXYBiI7hkwuja3jgarnwKlX mGVTaGBr1IOo6DQUurBrgJvOmMC K1ZlT8LVH5zCLctB3wtRjc lsxgeB1kCbx+OMX4cFIltJTLQP5 lOjwvdGQ+HOMoAFE1yKuhVNccQS UqaN5dYMBeH2d2PkRxEbQ9 TAqzZ0FiyzG9MBNzoNNkCMUbaED UcU7qmtgfv1guephmQfShSDChCV m1DEt1XPSjuPvjTrWbTBN0 MdB0XOQ9yCSwiK4adQwvegonwZ1 wOyc+YkkxfTgoMHJ9XFb1E3PnNa e1IDLkiPtlYV0fsUPhPTfk Jp2zoUclnXojSM1lIKUmdiirh89 7ZhRnu3urORBeuNBxZEitRPJ2N5 7yf8X5PTChZHQwKGG8vOG5 mH1eiIekhjcrfQJxpQuhedCuqNe zHKoqABykF493OPZlhIflEpBjJF q2Q6PnUek2FMNtwMnbFI1t qPCjUVszPw3agJoavMjfNA6vBXJ mpufiv387IqSiq0enJJAoySWoNG xhCVW9Q40ky9B1ZHJiPCYg HWY7iTK6aT1prAltquwdvYFvrVc nstCxsRupGRlaDUfdN526EWHpoJ auWkJfwYo1R2EfTkb4KYCz vMsdWB3ifSTaPFgeKc6bhGmqiSd fWZ1fWBYpwpkis778LkCmi5hcCI BgkPThPKeqEEV6Q74bv2S5 DTYtQNPfRNN3gCS3hI7beYewpcc gbGVmdDsgdmVydGljYWwtYWxpZ2 46IHRvcDsnPlBhdGllbnQg CAkyDNv3T6QeOptulZI+VZ12OOT lQC38mKDvmLKji2pmhIv5HfNeXX QoSOZ2lLarZXopc5RbLNTi H59jgPEvn3T7FSFgrTzihXUaJlU ezCW3jL0eYTtwmdkfc7wfldcbBr wsu0jwss92pD27B06lGGvl YHJiHEJpBPXoWNBevQtwhb0lmS0 wIi8+FTLacLT3mGT2yN5mRMYuJy X7AUoiL862TsHmeKTfTaks q5cpi7whjZv1AtU9MGAfkkKjqEf jMAB8q9VvQx37K34yYHvwRWKuZI XjJCFcLKFhgGhknw1aqC0a Ii8+RPZsjLT6sCU4jP9tJpUlUeI 7KQudQ917PwNkbVRyAauhI89uX9 JvdXA+DRPcXsy4ZHYsrYlb KS1gaYRpHIzsLc1zOTW0XkCuYgF oPUkhU4OuOHKmnaqhlyioxGJ2IW VsHJNxwP65Ur1trItfPUVt zAXHgX1hoiqsg8ihzweuGsWaCEP dORf8YZm2UKQguBqjXpRxELX5Ml G8KFZ9iCXuzD5fyWhrllee uM2qJ0XaZQKgmsqvHi84pG4tVqB kAhN5JPrrJxl+PxNRCosmP5CLSK zXPuCFCUI5S0EaVhj6DOTk uIhnIE5opXDiXNweMb8nsAiytVt tFQ4yAYNiudfsYHQuyM6wBBYtcB TqbEfwCN9tIIFlopsgy049 UeUrJUS6OXKpfUZpQ5EfoY9hPxE fHAHlPEKcV2FomKWuEKycQ613BM spJlD7IGZrycMvQ4XvRQRo uFjgChI3c0U5Cw1wCO1rFe7rYFd 9CP01XS39sWAdb5J5iHF6S0GdET TyjggqbojwiJN0EPNcTMSn zS04ePSpQVqvLf7gs8Y0q256RRR yANXgnF33Il3yvLmvRPRmlMBXlT 3pqtnjr6cbtrsnHcCcBGLl YBt7IPs8NVNbxKmcYiPrJML9DdC 7XQW6cBZrkC3goLomuzkhaP7zSu c+BlUxKSPvhrJ4P9IsGwx5 ZASenTrgCE8nsPKgZRegQg5rvMb eoYvmMC0bHTKneyrhEUQpfP9fUE UpfXDncZkpHE2jLBMbgume o585PnZtUUP8BURnhLZoA3AqyT6 iRnVuCYFhIVLbA1QuiSAgNEqyX0 01KLmzRoM1XOAfxxLyL3Ta UPIrfWodAuN2b4D5Vk6BIO3WRDQ 7V4BfUbe2FZNouFqnQD3lzOQeXN wnRg4vxZbmsBbdHJ4yJQOe mkmdHUAosE2yXZQnnGVrrGpaGJ9 ePAXuyldpn002TjZnXVW3SCPuhB CyR4NwqO5wEpRgMZGhBPVo Q9ZmyPUzZSjwS880YPmwFtI0UCD ytiAlA0ZjRJGhaRssTzT8s8Y4Wa 5PUDwvdGQ+YJ02fn67N1Dn RloaVrn1UUOsMKU7kJQ1gJ4bRVO pZOyhq4U2xWQ3Y2ZefrNjag4jq6 exLXOlFBsnA22qaGLhz8M3 FFCbkVL3VXZllQeaJoJucQ50Faw +DKNehWbnu9CdWwbpp1kwn8fviX o8EkYxPFPjdeZpsVaeISP5 p7MkXq39B59gGZcsCMWjRPRfEQO rJRDfsYlald2jqD4qQv3+PGNvbC X5uAH6iT7cIaYjWrH1QLah P379AhEabGUvQhnri9kch1ihpLi 2EhUfMBXkzbMpqElqZGY7a6GwFs 05E9EtqQlcm8PkVlg9eq02 uKYbo2Y0zJM9Q6IdQEEbdclgaRE qlIhkHA1tYJXxmxwaDVYamM9rJW RyL9a8YnAbSqF0YEirU3Tm vaT1TWUaoHTsVHHyfHDKhC0xsth ya6jwfddnDoXbUHZmTUv4EZv9JA HhxBdeDaLzNYC4IuJ2YPO1 iDRqpB9rhHeeiimipW8rNxm+UGh 0s4netSWtVW1yaYG5XQ70FK79bU Jdd8S1uPZ6H6SbIFNlltnk ymxgtCG3XLIlGJQqhZ53Pk5mdJq bUp5oCECxGZZ2GAZzvWEiL2KtxQ 9rZsUpNKFxEOMdQ8MysDSb PEpjU870AAqcZeG1QGCaweWdU8P cRBQkfTkuYvD6z5Y7Jn5CSU70FL 61HQ03kHDby5V2dZB0F4Gb PXWietpsxveqtSW7IPPnBYFysK4 4Pu8iyGvdTk9xAMEyDRV8EGUkzO RyI7KdiN9iJkIlKNGeZLLg H0TyyRSnOJbqW977WTylBmB7KNP rkeXjW3MgUNEiuMwwVeY9m8W4Jn 7IHt49DA18HF64xIZbb5U7 wDJ0D1AaCJBgtjadkvxozUY8BNV xQADjcM87Dc9hhNvnAo7cFFJkNR P4DGOiaBTaJ1EcuM4mDrFw MMAkJKLnB9AweTXaYJyvQ759YEc zLmC6UUKqlcOiM7RtOHPwxBgmTd K3b7D1Rg5IABkigyq1N2Vf PjwvdHI+FA43EEUyJX86ySTrcEH ou9zvjZa3YpKuUCKfPDT6jIbgEM cie1OiFTZqW81xfTKuk6C1 IGN (more content not included)... [facility] Coding Summaryon 01-09-2024 Coding Summary HTMLBase 64 WbmhnkmwMGd3eSp+PGhlYWQ+PE1 NQICuU03wrWYakK9tN6TNOSsTTz yzVSGVBTcFVxWxsqUrZW8hpKRxR XJu IC8+LX4zGZKjAcnyfTDld2T0fLB 3U95qeu2ySKwopPO6YGGcFcAipc znj4dfhNd2HWydDlhpFjAm ZZTmcG85BMF5nQ61Sk33qCTftIS od9pwhWf5BlKgDWTeTDD6wXjuZH eni6SrSBPaA92lgVOeu6A6 IFVccGwbmEWyYlWiwAL3oT1vGYi dtdcya0pltsrhUym6fd93vSYus3 Q0oYA1I4SgtyA9PLYkcQRh EirqkALIlG1iwqubi8trcoytQgV bKNWuDCk6HLw3OWDpwQigPlFaYX 56LFA4OOMkjwUcC7ArQEZe sVpuMvQ1v3Z8Uc9BK5JGOioiQ5E NTUFSWTwvdGQ+JW99nd94N3GuXl jgZdo8BPOiAQX2dNS5wU7v FIPpUCrjz0H2pUA8J2KplwPnft2 jl6mnLHCgQFasY31gtSQnr7T8GZ QodWH6HQAeiNmkQaJdwV05 Oyc+RKCwpAhnr3UjKxcse2jle7b rlKz1OizuZXKmmcVywXdbFAL7n4 CeDi6eUSEesSF1vXW3uD1d HcZjWwO7ASneM759MxRdqLVuCfo wH23kU5RvdRZ+ESTtXec5SOSheS ljZJ0vT3TxIJKvsslgpATx wMeqYB6mVIDslrudXJQmzE1qHKJ tS4y4FlAmFqV5YZfoT6DrHDIiak vtDi51aQ9oLtCmOyZ2NVmm C8CbcuV1DPRdoLLwSLveAEK6C82 pw5X3JWDgJTIsZZX2mHP6gW1xeT lnbjogbGVmdDsgdmVydGlj WYahRFztG049IIUcpFmaUqNuWRa uZyBEYXRlOiAgMDQvMTYvMjAyND wvdGQ+AANfDNI1tJujYQBs aAVeXPghWz3ucTxhcYrlIU9rKJA qrogsKWFjpS8mKXWlnYVcqYlvLD 7aHHYnxtole945PhVmWUC0 FTWvjHObY1MqyZ6hReSsRNWxMYE yT9XixEGdYUarO845UXbeJwN9ZZ YvgjAnR1VeCFSllJauMnC2 l9W6Ax2Dx6UbcnnhA8VzyREaTaW jQswdLNl3M7JfYabttKN+PC90YW CjSY63ICs1GPA0fCyfYCnc HAWjU8JlgM0yEoUdMIWmQBMtKqg +PHRhYmxlIHdpZHRoPScxMDAlJy KpeHisAW4eUr2pNHUuBSUf sFkrkVByUdHjg7mxMRExNXiuBA2 weNfhG0AjaPX5MKIfp6t5Ci18N3 1gV2RaxWQ+SYTtaHD5gZV9 aH2rFvQiGcC7IFfjY495YcTonJU yZyzwu9xud3hlgOb5HbN4UNRxlj OvgMxvSRI2a4GoLv10S12l IHdpZHRoPSIxNSUiIHZhbGlnbj0 udZ9aPv6+COIsrFW4dCV7rO7oGn QuLvK1IUalI100FcPwwOLx Jsavi6oxr6xleRp4WmRmHXNskeK znDcdXCF5w0DoMr83D5JbxZehm2 PhXtl0hp68jFBzx8B6dJR1 J5AgTARzelhumNYisHdeKR3bAIV xdviiVFMtcP2rEHQsV8z2FfFhWr T6MFosQ4NjaaP8TYIwsDXu JUFciTKNjJ8clsvnj8uqhxjgNwC aXNOjLSf4OVj8XZDymPueNjVrGK F5JnZ4AFL8fKLcpI5mdYcq xrvhkC3hYzr+ZIV1iPQhvGHGET1 lOjwvdGQ+XIPiLFL2qRegTOmcJF BabL6mTESmB2e0LlBcBnW2 PBqoU5ReqbP3TUPtpCSzHQAdiMO FcL7kedmxh6nqmrghZePkYOSmSJ s0PNm2AZBxhJqlVgGpIQU9 RnO6DJT3pUPjpU7npKdspshtpX9 wOyc+TtdbmCdsWHS9AFg9U9MfBi h9LEMlzRhoLY0svVVhWKjv Hn6thQxswRjhOU1dCACmeqsxt98 8GcDkh6umWTVezUEuUHdyNBE1L2 2nl5D1OWEeDTIaIBU0iOQ2 iE6izJubvwxurRWgjBbydiLusRv zMGezNDweW024PERdkTcwGzVbRL z8O6PhJst2ZANikGsbWJ4g eYRjDSkgOd8fbKvbmXzyFZ4cWRF zuavkx869EdJvk3bwJDFxpINdNF gzEAH3F57oy8Z8QBUoYIQh YKT6iAT9fO7snWfifgretOVpsKh thkPsdNaiAJdnCIlqU647KVIjqJ aeNmWvqFh6E3UcHpi4VQAw lJvrLZ0kxVEjNSiuWh9ovFqwrGr jFQ5tJZCzksidb542AgSfw4lbAS KtzGBqQCvuQBM2U11du1H9 HQOdQZIeUUA7wXA6aH5ohHmiozx gbGVmdDsgdmVydGljYWwtYWxpZ2 46IHRvcDsnPlBhdGllbnQg TGqpIXb8L5XgXngciMF+UW89HGS tIE52lVSujEHjr8vrkNs2NsMhTC XnPLR2yWsaJFfbk1MtAREa Q48isOHlt1A0VMLrqOntyXRhZyV uaWT5hU6rGOrwtzpmk0hwmapuDd kiy2xhzt75nY49Z85rMElq UICkYAVrOEVhPYBqwMhsay7qfS1 wIi8+ZXAnrLY5tOB1qU6vIACdRh R7BWpxS644DzKtkDCxPkcb u0nnu3rvhBb9DfE9UTMsdcDzjKs vSZU2k4NhGy14N29aDIxoFLIzLJ UvXTOtWATcuRvnkx8adM5v Ii8+KUXlvWL7vNP7eL3vLnWlAbY 9KDvsX946RaQuiSEtUbdtY45zH1 JvdXA+XWRhCfb0NJAudYof UC2flZMxUUfeFd6zZZC8UeXsAtV lAKyuI6TnJXFdvgrbtddkqGP4XO AmGYZdqZ74Ra7sxDvjCERs eMZOyK1voxope2kjzotsTtWcQRU aGQf8WMy1PUVpjVdtImTyPFE8Yt A5LGZ9xSZexU4oaWqrwszu lD6qR7BoNWBqhsbeXu55hQ6cUiP iOpC5PGdtQqs+DsYAZeykL8PZFP mQAtCGTAM5O3DjVev2DLFx vNhhAE1kdVDgMEzbZm2pcMlhdMi vAQ2wXOXqmrowEQPgmV0jVRUalH KokGuyGA7rAGVqotcip946 IqCuUWU0PXUwvYQtC3GbdO9mAgO pNJNeUEWxI0UxqZPqCZncX820MJ baDfV5HPMtfkFoS9KpZUPi oZfjOfG7i4Q8On4zPM8kQd6gQJe 3WQ84ZF23gIRxd4C0hFG8T9YtUH KptbjtybbvoQW0VULvHFDr gZ25zBCpCGlkAa4na0I3v155TNF lXNVipK48Kb8lpAaeNFOisQUBsG 8vkzyfy2fdxtqgHgKnBSQp CEw8FMm0QTDbbTscYxEpOOW2TxP 4RRF4jVWudF4mgGfptgpseE1jDe c+OdPbDKQpzmT4M6PgFhi0 EFNqtZlpYZ4jrNZgCQqaHq7nlWp ljKwhYT8vBTUxwpwkTSGpkW1kNX YdiFOszVneKR9mFDQguyxj i269JtHqHUW2QIRdgXQeY1IzyR8 dVoMyWWJaTDDhA7YejDZfKVzgW7 87DKffEdU4QQEiavEzG9Jg FIDgkUbsKdC7t6Y6Ph7TTV5BXVZ 1Y8LhFzk4BEPnmEqkXI4qbXHbCU duBi4prRdoqBdfDS7vHXQl xfpsXEKuwE0eUOBtvORnvWjxIA3 qOQMeyrauq840QvNcORQ9ZTMtfC KvN3AzmY0gNwNuQJTmOOYc L2VkwMLlWFvfD117FLmlEnP2MHZ riwFdJ8RoLVLnhXmtHbL4z0V7Hy 5PUDwvdGQ+AV45gj07M7Be EbniDkx7OBOrQIK9dGA5aB4bZCA wJZjam0N7lVU9T4XrdxPqrc7fb9 cmPSTbPArrE61qaVVbe4Y3 CKQjvRX9ZDTgaBcoAzStzW97Nmp +NVMdxPlnb9ZvZkbbj0tlq7hngL w0UxBvFCKupsHuaStzEDT0 p0CxGn58Y41pKZfeCNUyJGOlSZJ nADNskCgdab6wcF2uRh4+PGNvbC D4qPX9aW8yLwDdZiC5PVqu M136QzGjgYHsIpqnl6ojl9cvkHn 9VtVeUFWqmuQxiNhgRIY7i6PdIc 73T7YqqDmzg8HgNud8fp36 gGPva1C1vON7L1TsLVIyikhkhOU oiBqwSO7lWQOkyauwBCUzvO2kCE InY5f0ScEkVlM3XIldQ0Bz kbV9CPLrlOZiJECgpUGLsD3wahk me3gcvjsmPuUbLHWhPDz3LRy6RV VfhJafOlXaGVI8PiD0HQK7 yTIjaQ3ouPjrsainpL6jPoh+UGh 5v7egkTTbCV2orGB7SD82CW85bT Pmz9V2qRB1J2GiRYXyhnoe oiefqNJ7KXGwOOFjcR23Pt8sfNw tGz1yCVQtDHP9CIWkaXRaX8GxiB 3gQcVyLEDnDUVgB7KuhSAo REznQ373VTyiDdR5JHWhrcVkC5F uABPucHtuKbB1w9R4Kc1EYJ72GL 85EX57lNXui0D1xKE7W3Ch WQXkwhuqfdfuuOJ0MQWnVPEvpW3 2Nt7zuTzkHx2kNUSiENW8MEMgmW OwV5CarZ2iSaMhLGGcMAXc K6OetFZqPXkdL180IMrpJlF0JBZ zkwLkR4CjQMItvSxrOtZ9v6J4Jf 6YNk43VN25MX07hIUke9F1 vOF7N4LxQYAsbfptofkfsCB6RNE aJWFzrN13Bi9qdYhhJc5aCGFtLJ I4YEWtlUDcU2PsnV1gPwCa ZYMkSXUvJ7WbzFTmSQgbV411JEs mYhW9ZRBbxyDmA5UvLLKidUqdUs G7w5R9Wk8WCGhozti1K4Eh PjwvdHI+RY91YSJlNS68yVIdyJO ng9xxeZf3CrKuTLUdCKT9qGbkAS [id number] IGN (more content not included)... [facility] XR Hip Complete Right w/ Pel [...] 3:46 pm Technologist: DARLEEN MALONE [facility] XR Sacrum/Coccyx Minimum 2 V iewson [...] 3:46 pm Technologist: DARLEEN MALONE [facility] XR Spine Lumbosacral Complet e w/ [...] 3:46 pm Technologist: DARLEEN MALONE [facility] Telemedicine 08-23-2023 Telemedicine [id number] Lior Green in 1990 F Date Provider Department Alpha 08/23/[address] [place] [address] No family history on file Level of Service:98571 OK OFFICE/OUTPATIENT ESTABLISHED LOW MDM 20-29 MIN [facility] 37on 07-11-2023 37 Follow-up with famil y medicine as directed. [facility] Telemedicineon 07-11-2023 Telemedicine [id number] Lior Green in 1990 F Date Provider Department Alpha 07/11/[address] [place], [place] [address]cy Medi No family history on file Level of Service:69275 OK OFFICE/OUTPATIENT ESTABLISHED [facility] 10-19 MIN Reason for Visit and Comments: Headache [52] Normal [facility] HEPATITIS B SURFACE ANTIBODY QUANTon 09-01-2022 HEPATITIS B VIRUS SURFACE AB (MIU/ML) IN SERUM 3.83 mIU/mL Normal [facility] Comment on above: Result Comment: INTE RPRETATION: NONREACTIVE<8.00 mIU/mL INDETERMINATE8.00 - 12.00 mIU/mL REACTIVE>12 mIU/mL Performed By: #### L [id number] #### [facility] [address] [place] [address] T-Spoton 10-18-2021 T-Spot. TB Test Normal [facility] Comment on above: Result Comment: [facility] [employer] [address] [place] [address] (NOTE) T-SPOT.TB Test Results --------- T-SPOT TB [...] UBI, FANG, JAGDEEP, VZI, TSPOT #### [facility] [address] [place] [address] Job Lithographer: Isreal Astorga MD Measles (Rubeola) Imon 10-15 Measles (Rubeola) Im 6.05 Normal >1.09 [facility] Comment on above: Result Comment: Interpretation: IMMUNE Reference Range: <0.91 Not Immune 0.91-1.09 Equivocal >1.09 Immune Performed By: #### R UBI, FANG, JAGDEEP, VZI, TSPOT #### [address] [id number] Job Lithographer: Isreal Astorga MD Mumps,Immun,Abon 10-15-2021 Mumps,Immun,Ab 5.42 Normal >1.09 [facility] Comment on above: Result Comment: Interpretation: IMMUNE Reference Range: <0.91 Not Immune 0.91-1.09 Equivocal >1.09 Immune Performed By: #### R UBI, FANG, JAGDEEP, VZI, TSPOT #### [place] [id number] Job Lithographer: Isreal Astorga MD VZ Immunityon 10-15-2021 VZ Immunity 2.55 Normal >1.09 [facility] Comment on above: Result Comment: Interpretation: IMMUNE Reference Range: <0.91 Not Immune 0.91-1.09 Equivocal >1.09 Immune Performed By: #### R UBI, FANG, JAGDEEP, VZI, TSPOT #### [place] [id number] Job Lithographer: Isreal Astorga MD Rubella Ab, IgGon 10-14-2021 Rubella Ab, IgG 279.3 IU/mL Normal [facility] Comment on above: Result Comment: REFERENCE RANGE: <5.0 NON-REACTIVE (non-immune) 5.0 TO 9.9 EQUIVOCAL >=10.0 REACTIVE (immune) Performed By: #### R UBI, FANG, JAGDEEP, VZI, TSPOT #### [address] [id number] Job Lithographer: Isreal Astorga MD Basic Metabolic Panelon Anion gap [Moles/Vol] 11 mmol/L 9 - 17 mmol/L [place], [place] Bun/Cre Ratio NOT REPORTED [place] Calcium [Mass/Vol] 8.7 mg/dL 8.6 - 10. 4 mg/dL [place] Chloride [Moles/Vol] 107 mmol/L 98 - 10 7 mmol/L [place] CO2 [Moles/Vol] 23 mmol/L 20 - 31 mmol/L [place] Creatinine [Mass/Vol] 0.59 mg/dL 0.5 - 0.9 mg/dL [place] GFR >60 >60 mL/min [place] GFR Non- >60 >60 mL/min [place] GFR/1.73 sq M predicted among non-blacks MDRD (S/P/Bld) [Vol rate/Area] [place] Comment on above: Average GFR for 30-3 9 years old: 107 mL/min/1.73sq m Chronic Kidney Disease: <60 mL/min/1.73sq m Kidney failure: <15 mL/min/1.73sq m eGFR calculated using average adult body mass. Additional eGFR calculator available at: http://www.Independent IP/multiple_crcl_2012.htm GFR/1.73 sq M predicted among non-blacks MDRD (S/P/Bld) [Vol rate/Area] NOT REPORTED [place] Glucose [Mass/Vol] 91 mg/dL 70 - 99 mg/dL [place] Potassium [Moles/Vol] 4.1 mmol/L 3.7 - 5.3 mmol/L [place] Sodium [Moles/Vol] 141 mmol/L 135 - 144 mmol/L [place] Urea nitrogen [Mass/Vol] 10 mg/dL 6 - 20 mg/dL [place] CBC Auto Differentialon Basophils (Bld) [#/Vol] 0.03 10*3/uL [place] Basophils/100 WBC (Bld) 1 % 0 - 2 % [place] Differential Type NOT REPORTED [place] Eosinophils (Bld) [#/Vol] 0.15 10*3/uL [place] Eosinophils/100 WBC (Bld) 3 % 1 - 4 % [place] Erythrocyte distribution width (RBC) [Ratio] 12.4 % 11.8 - 14.4 % [place] Hematocrit (Bld) [Volume fraction] 41.3 % 36.3 - 47.1 % [place] Hemoglobin (Bld) [Mass/Vol] 13.3 g/dL 11.9 - 15.1 g/dL [place] Immature granulocytes (Bld) [#/Vol] 10*3/uL [place] Immature granulocytes (Bld) [#/Vol] 0 % 0 [place] Lymphocytes (Bld) [#/Vol] 1.91 10*3/uL [place] Lymphocytes/100 WBC (Bld) 39 % 24 - 43 % [place] MCH (RBC) [Entitic mass] 29.7 pg 25.2 - 33.5 pg [place] MCHC (RBC) [Mass/Vol] 32.2 g/dL 28.4 - 34.8 g/dL [place] MCV (RBC) [Entitic vol] 92.2 fL 82.6 - 102.9 fL [place] Monocytes (Bld) [#/Vol] 0.46 10*3/uL [place] Monocytes/100 WBC (Bld) 10 % 3 - 12 % [place] Platelet mean volume (Bld) [Entitic vol] 10.7 fL 8.1 - 13.5 fL [place] Platelets (Bld) [#/Vol] NOT REPORTED [place] Platelets (Bld) [#/Vol] 246 10*3/uL [place] RBC (Bld) [#/Vol] 4.48 10*6/uL 3.95 - 5.11 m/uL [place] RBC morphology finding Nom (Bld) NOT REPORTED [place] Segmented neutrophils/100 WBC (Bld) 47 % 36 - 65 % [place] Segs Absolute 2.29 [place] WBC (Bld) [#/Vol] 0.0 10*3/uL 0.0 per 100 WBC [place] WBC (Bld) [#/Vol] 4.9 10*3/uL [place] WBC Morphology NOT REPORTED [place] Iron And TIBCon 05-31-2019 Iron [Mass/Vol] 92 ug/dL 37 - 145 ug/dL [place] Iron Saturation 38 % 20 - 55 % [place] TIBC 243 ug/dL Low 250 - 450 ug/dL [place] UIBC 151 ug/dL 112 - 347 ug/dL [place] Otheron 05-31-2019 Interpretation and review of laboratory results Abnormal [place] Vitamin D 25 Hydroxyon 05-31 Vit D, 25-Hydroxy 20.9 ng/mL Low 30 - 100 ng/mL [place] Comment on above: Reference Range: Vitamin D status Range Deficiency <20 ng/mL Mild Deficiency 20-30 ng/mL Sufficiency 30-100 ng/mL Toxicity >100 ng/mL Vital Signs Date Time Vital Sign Value Performing Clinician Facility 11-21-2024 11:58-0500 Body mass index (BMI) [Ratio] 40.32 kg/m2 [facility] Work Phone: [facility] 11-21-2024 11:58-0500 Body weight 113.31 kg [employer] Work Phone: [facility] 11-21-2024 11:58-0500 Diastolic blood pressure 70 mm[Hg] [employer] Work Phone: [facility] 11-21-2024 11:58-0500 Systolic blood pressure 110 mm[Hg] [employer] Work Phone: [facility] 11-07-2024 13:51-0500 Body mass index (BMI) [Ratio] 40.03 kg/m2 [employer] Work Phone: [facility] 11-07-2024 13:51-0500 Body weight 112.49 kg Catrachito Attila DO Work Phone: [facility] 11-07-2024 13:51-0500 Diastolic blood pressure 72 mm[Hg] Catrachito Attila DO Work Phone: [facility] 11-07-2024 13:51-0500 Systolic blood pressure 120 mm[Hg] Catrachito Attila DO Work Phone: [facility] 10-01-2024 10:38-0500 Body mass index (BMI) [Ratio] 39.19 kg/m2 Catrachito Attila DO Work Phone: [facility] 10-01-2024 10:38-0500 Body weight 110.13 kg Catrachito Attila DO Work Phone: [facility] 10-01-2024 10:38-0500 Diastolic blood pressure 68 mm[Hg] Catrachito Attila DO Work Phone: [facility] 10-01-2024 10:38-0500 Systolic blood pressure 108 mm[Hg] Catrachito Attila DO Work Phone: [facility] 09-04-2024 10:33-0500 Body mass index (BMI) [Ratio] 37.92 kg/m2 Christen Reid MD Work Phone: [facility] 09-04-2024 10:33-0500 Body weight 109.86 kg Christen Reid MD Work Phone: [facility] 09-04-2024 10:33-0500 Diastolic blood pressure 69 mm[Hg] Christen Reid MD Work Phone: [facility] 09-04-2024 10:33-0500 Heart rate 84 /min Christen Reid MD Work Phone: [facility] 09-04-2024 10:33-0500 Systolic blood pressure 105 mm[Hg] Christen Reid MD Work Phone: [facility] 08-12-2024 14:16-0500 Body mass index (BMI) [Ratio] 38.58 kg/m2 Genevieve Donovan PA Work Phone: [facility] 08-12-2024 14:16-0500 Body weight 108.41 kg Genevieve Donovan PA Work Phone: [facility] 08-12-2024 14:16-0500 Diastolic blood pressure 72 mm[Hg] Genevieve Donovan PA Work Phone: [facility] 08-12-2024 14:16-0500 Systolic blood pressure 120 mm[Hg] Genevieve Donovan PA Work Phone: [facility] 07-16-2024 11:31-0400 Body mass index (BMI) [Ratio] 38.54 kg/m2 Catrachito Attila DO Work Phone: [facility] 07-16-2024 11:31-0400 Body weight 108.32 kg Catrachito Attila DO Work Phone: [facility] 07-16-2024 11:31-0400 Diastolic blood pressure 64 mm[Hg] Catrachito Attila DO Work Phone: [facility] 07-16-2024 11:31-0400 Systolic blood pressure 110 mm[Hg] Catrachito Attila DO Work Phone: [facility] 07-05-2024 11:45-0400 Body height 170.2 cm Mishel Segovia MD Work Phone: [facility] 07-05-2024 11:45-0400 Body mass index (BMI) [Ratio] 36.83 kg/m2 Mishel Segovia MD Work Phone: [facility] 07-05-2024 11:45-0400 Body weight 106.69 kg Mishel Segovia MD Work Phone: [facility] 07-05-2024 11:45-0400 Diastolic blood pressure 69 mm[Hg] Mishel Segovia MD Work Phone: [facility] 07-05-2024 11:45-0400 Heart rate 86 /min Mishel Segovia MD Work Phone: [facility] 07-05-2024 11:45-0400 Systolic blood pressure 128 mm[Hg] Mishel Segovia MD Work Phone: [facility] 06-17-2024 11:46-0400 Body mass index (BMI) [Ratio] 37.9 kg/m2 Catrachito Attila DO Work Phone: [facility] 06-17-2024 11:46-0400 Body weight 106.5 kg Catrachito Attila DO Work Phone: [facility] 06-17-2024 11:46-0400 Diastolic blood pressure 78 mm[Hg] Catrachito Attila DO Work Phone: [facility] 06-17-2024 11:46-0400 Systolic blood pressure 116 mm[Hg] Catrachito Attila DO Work Phone: [facility] 05-31-2024 11:30-0400 Body mass index (BMI) [Ratio] 36.74 kg/m2 Lexi Robertson MD Work Phone: [facility] 05-31-2024 11:30-0400 Body weight 106.41 kg Lexi Robertson MD Work Phone: [facility] 05-23-2024 15:41-0400 Body mass index (BMI) [Ratio] 41.48 kg/m2 Sandrita Bowers CNM Work Phone: [facility] 05-23-2024 15:41-0400 Body weight 116.57 kg Sandrita Bowers CNM Work Phone: [facility] 04-29-2024 13:25-0400 Diastolic blood pressure 82 mm[Hg] [facility] 04-29-2024 13:25-0400 Heart rate 80 /min [facility] 04-29-2024 13:25-0400 Respiratory rate 16 /min [facility] 04-29-2024 13:25-0400 SaO2% (BldA) [Mass fraction] 99 % [facility] 04-29-2024 13:25-0400 Systolic blood pressure 145 mm[Hg] [facility] 04-29-2024 10:53-0400 Body temperature 97.4 [degF] [facility] 04-29-2024 10:28-0400 Inhaled oxygen flow rate 2 L/min [facility] 04-29-2024 06:46-0400 Body height 170.18 cm [facility] 04-29-2024 06:46-0400 Body mass index (BMI) [Ratio] 37.6 kg/m2 [facility] 04-29-2024 06:46-0400 Body weight 109 kg [facility] 04-19-2024 09:11-0400 Body height 172.72 cm [facility] 04-19-2024 09:11-0400 Body mass index (BMI) [Ratio] 35.9 kg/m2 [facility] 04-19-2024 09:11-0400 Body weight 107 kg [facility] 02-15-2024 11:55-0400 Body height 172.72 cm [facility] 02-15-2024 11:55-0400 Body mass index (BMI) [Ratio] 36.1 kg/m2 [facility] 02-15-2024 11:55-0400 Body weight 107.95 kg [facility] Encounters Encounter Date Encounter Type Care Provider Facility Start: 12-02-2024 End: 12-02-2024 Clinisync Result Encounter Catrachito Aiken DO Work Phone: [facility] External [facility] Unsolicited Start: 12-02-2024 End: 12-02-2024 Clinisync Result Encounter Catrachito Aiken DO Work Phone: [facility] External [facility] Unsolicited Start: 11-28-2024 End: 11-28-2024 ambulatory [facility] R [facility] Start: 11-27-2024 End: 11-27-2024 Chart abstracting Scanning Provider External [facility] Start: 11-25-2024 End: 11-25-2024 Clinisync Result Encounter [...] trimester Start: 11-06-2024 ambulatory None Provider Facility: [facility] Start: 10-25-2024 End: 10-25-2024 Clinisync Result Encounter Catrachito Attila DO Work Phone: [facility] External Department Unsolicited Start: 10-25-2024 End: 10-25-2024 Clinisync Result Encounter Catrachito Attila DO Work Phone: [facility] External Department Unsolicited Start: 10-15-2024 End: 10-15-2024 ambulatory CATRACHITO AIKEN [facility] Start: 10-01-2024 End: 10-01-2024 Bamboo flowsheet Catrachito Attila DO Work Phone: [facility] Start: 10-01-2024 End: 10-01-2024 Bamboo flowsheet Catrachito Attila DO Work Phone: [facility] Start: 10-01-2024 End: 10-01-2024 flow sheet Catrachito Attila DO Work Phone: [facility] Comment on above: Second trimester pre gnancy; 25 weeks gestation of ; with normal glucose tolerance test (GTT); Diabetes mellitus screening; Retained intrauterine device (IUD) during in second trimester Start: 10-01-2024 End: 10-01-2024 ambulatory CATRACHITO AIKEN Not Available Start: 09-04-2024 End: 09-04-2024 Office outpatient visit 25 minutes Lexi Robertson MD Work Phone: [facility]- Medicine at [facility] Comment on above: 21 weeks gestation o [...] 08-12-2024 Bamboo flowsheet Genevieve SOLITARIO Work Phone: [facility] Start: 08-12-2024 End: 08-14-2024 Clinisync Result Encounter Genevieve SOLITARIO Work Phone: [facility] External Department Unsolicited Start: 08-12-2024 End: 08-14-2024 [...] 07-17-2024 End: 07-17-2024 ambulatory NON STAFF [facility] Work Phone: Start: 07-17-2024 End: 07-17-2024 Patient encounter procedure [facility] Work Phone: Start: 07-16-2024 End: 07-16-2024 [...] Second trimester Start: 07-10-2024 End: 07-10-[address] Start: 07-08-2024 End: 07-08-2024 Orders Only Not In System Ref Prov [facility]- [facility] at [facility] Start: 07-05-2024 End: 07-05-2024 Office outpatient visit 40 minutes Mishel Segovia MD Work Phone: [facility]- Medicine at [facility] Comment on above: Retained intrauterin e device [...] 07-05-2024 End: 07-05-2024 ambulatory CATRACHITO R ATTILA [facility] Comment on above: Retained intrauterin e device [...] Start: 06-11-2024 End: 06-11-2024 ambulatory NON STAFF [facility] Work Phone: Start: 06-11-2024 End: 06-11-2024 Patient encounter procedure MD Santa Estrada II Work Phone: [facility] Work Phone: Start: 05-31-2024 End: 05-31-2024 Office consultation new/estab patient 60 min Lexi Robertson MD Work Phone: [facility]- Medicine at [facility] Comment on above: Retained intrauterin e device (IUD) during in first trimester (Primary Dx) Start: 05-31-2024 End: 05-31-2024 ambulatory CATRACHITO VILLATOROO [facility] Comment on above: Retained intrauterin e device (IUD) during in first trimester (Primary Dx) Start: 05-29-2024 End: 05-29-2024 Chart abstracting Lexi Robertson MD Work Phone: [facility]- Medicine at [facility] Start: 05-23-2024 End: 05-23-2024 ambulatory SANDRITA L [...] 05-15-2024 End: 05-15-2024 ambulatory NON STAFF [facility] Work Phone: Start: 05-15-2024 End: 05-15-2024 Patient encounter procedure [facility] Work Phone: Start: 04-29-2024 Non-patient / Non-visit [facility] Work Phone: Start: 04-29-2024 End: 04-29-2024 Admission to same day surgery center [facility] [place] Start: 04-29-2024 End: 04-29-2024 ambulatory NON STAFF [facility] Work Phone: Start: 04-25-2024 End: 04-25-2024 ambulatory SANDRITA BOWERS Not Available Start: 04-19-2024 End: 04-19-2024 ambulatory NON STAFF [facility] Work Phone: Start: 04-19-2024 End: 04-19-2024 Patient encounter procedure [facility] Work Phone: Start: 04-19-2024 End: 04-19-2024 Discharged Recurring MD Santa Estrada II Work Phone: [facility] [place] Start: 04-19-2024 [facility]istered [facility] [place] Start: 04-19-2024 End: 04-19-2024 ambulatory NON STAFF [facility] Work Phone: Start: 04-19-2024 End: 04-19-2024 Patient encounter procedure [facility] Work Phone: Start: 04-16-2024 End: 04-16-2024 ambulatory SANDRITA BOWERS Not Available Start: 04-15-2024 End: 04-15-2024 Patient encounter procedure [facility] Work Phone: Start: 04-15-2024 End: 04-15-2024 ambulatory NON STAFF [facility] Work Phone: Start: 03-13-2024 End: 03-13-2024 ambulatory Peter Booth Facility:[facility] Start: 03-12-2024 End: 03-12-2024 Patient encounter procedure [facility] [place] Work Phone: Start: 03-12-2024 End: 03-12-2024 ambulatory NON STAFF [facility] Work Phone: Start: 02-29-2024 End: 02-29-2024 ambulatory [facility] Start: 02-27-2024 End: 02-27-2024 ambulatory NON STAFF [facility] Work Phone: Start: 02-27-2024 End: 02-27-2024 Departed Referred [facility] Start: 02-26-2024 End: 02-27-2024 ambulatory Peter Booth Facility:[facility] Start: 02-15-2024 End: 02-15-2024 ambulatory NON STAFF [facility] Work Phone: Start: 02-15-2024 End: 02-15-2024 Patient encounter procedure [facility] Work Phone: Start: 02-01-2024 End: 02-01-2024 ambulatory VICTOR M LUJAN Not Available Start: 01-25-2024 End: 01-26-2024 ambulatory Audra Reynoso APRN-ADITI Facility:[facility] Start: 01-12-2024 End: 01-13-2024 ambulatory Alec Patel MD Facility:[facility] Start: 01-05-2024 End: 01-06-2024 ambulatory Audra Reynoso [employer]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 Facility:[facility] Start: 12-15-2023 End: 12-15-2023 ambulatory VICTOR M LUJAN Not Available Start: 08-23-2023 End: 08-23-2023 ambulatory [facility] Start: 07-11-2023 End: 07-11-2023 ambulatory [facility] Start: 09-01-2022 End: 09-01-2022 ambulatory [facility] Start: 09-01-2022 End: 09-01-2022 Encounter for antibody response examination [facility] Start: 10-14-2021 End: 10-15-2021 ambulatory [facility] Start: 10-13-2021 ambulatory [facility] Start: 04-02-2020 End: 04-02-2020 Subsequent hospital visit by physician Yesica MILLER [facility] Start: 05-31-2019 End: 05-31-2019 Subsequent hospital visit by physician Yesica MILLER [facility] Comment on above: History of [...] Surgery: [id number] Result Comment: PERF ORMED BY: [facility] [place] [address] PATHOLOGIST INSTRUCTION LIBRARIAN GENO BENEDICT M.D. Start: 03-12-2024 Methicillin resistan [...] History of knee replacement, unspecified laterality Mishel Segoiva MD Work Phone: Plan of Treatment Date Care Activity Detail Author Start: 03-14-2034 DTaP,Tdap and Td Vac cines (3 - Td or Tdap) DTaP,Tdap and Td Vaccines (3 - Td or Tdap) [facility] Start: 04-16-2029 Screening for malign ant neoplasm of cervix [facility] Start: 04-16-2027 Screening for malign ant neoplasm of cervix Pap Smear [facility] Start: 09-04-2025 Adult BMI Screening Adult BMI Screen ing [facility] Start: 09-04-2025 Tobacco Screening Tobacco Screening [facility] Start: 09-04-2025 End: 09-04-2025 US MFM with or without consult US MFM with or without consult Imaging Routine 21 weeks gestation of Retained intrauterine device (IUD) during in second trimester History of gastric bypass Multigravida of advanced maternal age in second trimester Expected: 09/04/2025 (Approximate), Expires: 09/04/2025 [employer] Work Phone: Comment on above: Expected: 09/04/2025 (Approximate), Expires: 09/04/2025 Start: 07-05-2025 Adult BMI Screening Adult BMI Screen ing [facility] Start: 07-05-2025 Tobacco Screening Tobacco Screening [facility] Start: 07-05-2025 End: 07-05-2025 US MFM with or without consult US MFM with or without consult Imaging Routine Retained intrauterine device (IUD) during in second trimester BMI 36.0-36.9,adult Multigravida of advanced maternal age in second trimester Expected: 07/05/2025 (Approximate), Expires: 07/05/2025 [employer] Work Phone: Comment on above: Expected: 07/05/2025 (Approximate), Expires: 07/05/2025 Start: 05-31-2025 Adult BMI Screening Adult BMI Screen ing [facility] [employer] Start: 05-31-2025 End: 05-31-2025 US MFM with or without consult US MFM with or without consult Imaging Routine Retained intrauterine device (IUD) during in first trimester Expected: 05/31/2025 (Approximate), Expires: 05/31/2025 [employer] Work Phone: Comment on above: Expected: 05/31/2025 (Approximate), Expires: 05/31/2025 Start: 12-12-2024 End: 12-12-2024 Patient encounter procedure [facility] Start: 11-28-2024 End: 11-28-2024 Patient encounter procedure 11/28/2024 9:45 AM EST Appointment [facility] [place] [address] [facility] [address] [place] [address] [facility] [place] Start: 11-21-2024 End: 02-27-2026 US for US [...] AM EST Routine [facility] [address] [phone] Catrachito Aiken DO [address] [place] [address] [facility] Start: 10-31-2024 End: 10-31-2024 Patient encounter procedure 10/31/2024 8:30 AM EST Routine [facility] [address] [place] [phone] Genevieve Donovan PA [address] [place] [address] [facility] Start: 10-15-2024 End: 10-15-2024 Patient encounter procedure 10/15/2024 10:00 AM EST Appointment [facility] [address] [place] [address] [facility] Start: 10-01-2024 End: 10-01-2025 CBC panel - Blood by Automated count CBC Lab Routine Diabetes mellitus screening Expected: 10/01/2024 (Approximate), Expires: 10/01/2025 [facility] Work Phone: Comment on above: Expected: 10/01/2024 (Approximate), Expires: 10/01/2025 Start: 10-01-2024 End: 10-01-2024 Patient encounter procedure 10/01/2024 9:50 AM EST Routine [facility] [address] [place] [phone] Catrachito Aiken, DO [address] [place], [place] [id number] Arrived [facility] Comment on above: Arrived Start: 09-11-2024 End: 09-11-2024 Alpha fetoprotein, maternal Alpha fetoprotein, maternal Lab Routine Need for maternal serum alpha-protein (MSAFP) screening Expected: 09/11/2024 (Approximate), Expires: 09/11/2024 [facility] Comment on above: Expected: 09/11/2024 (Approximate), Expires: 09/11/2024 Start: 09-09-2024 End: 09-09-2024 Patient encounter procedure 09/09/2024 2:00 PM EST Routine [facility] [address] [place] [phone] Catrachito Aiken, DO [address] [place] [address] [facility] Start: 09-04-2024 Adult BMI Screening Adult BMI Screen ing [facility] Start: 09-04-2024 Tobacco Screening Tobacco Screening [facility] Start: 08-20-2024 End: 08-20-2024 Patient encounter procedure [facility] Start: 08-14-2024 End: 08-14-2024 Patient encounter procedure 08/14/2024 1:30 PM EST Routine [facility] [address] [place] [address] Genevieve Donovan, ALTAF [address] [place] [address] [facility] Start: 07-16-2024 End: 07-16-2024 Patient encounter procedure 07/16/2024 11:10 AM EDT Routine [facility] [address] [place] [phone] Catrachito Aiken DO [address] [place] [address] [facility] Start: 07-05-2024 End: 07-05-2024 Patient encounter procedure [facility] Start: 06-21-2024 End: 06-21-2024 Professional / ancillary services management 06/21/2024 10:30 AM EDT Ancillary Procedure [facility] [address] [phone] [facility] Start: 06-18-2024 End: 06-18-2024 Patient encounter procedure 06/18/2024 2:00 PM EDT Office Visit [facility] [address] [place] [phone] Sandrita Bowers, [facility] [address] [place], [place] [id number] [facility] Start: 06-17-2024 End: 06-17-2025 ABO/Rh ABO/Rh Lab Routine Missed menses Expected: 06/17/2024 (Approximate), Expires: 06/17/2025 [facility] Comment on above: Expected: 06/17/2024 (Approximate), Expires: 06/17/2025 Start: 06-17-2024 End: 06-17-2025 Alanine aminotransferase [Enzymatic activity/volume] in Serum or Plasma ALT Lab Routine Multigravida of advanced maternal age in first trimester Expected: 06/17/2024 (Approximate), Expires: 06/17/2025 [facility] Comment on above: Expected: 06/17/2024 (Approximate), Expires: 06/17/2025 Start: 06-17-2024 End: 06-17-2025 Aspartate aminotransferase [Enzymatic activity/volume] in Serum or Plasma AST Lab Routine Multigravida of advanced maternal age in first trimester Expected: 06/17/2024 (Approximate), Expires: 06/17/2025 [facility] Comment on above: Expected: 06/17/2024 (Approximate), Expires: 06/17/2025 Start: 06-17-2024 End: 06-17-2025 Blood type and Indirect antibody screen panel - Blood Type and screen Lab Routine Missed menses Expected: 06/17/2024 (Approximate), Expires: 06/17/2025 [facility] Work Phone: Comment on above: Expected: 06/17/2024 (Approximate), Expires: 06/17/2025 Start: 06-17-2024 End: 06-17-2025 CBC W Auto Differential panel - Blood [facility] Comment on above: Ordered: 06/17/2024 Expected: 06/17/2024 (Approximate), Expires: 06/17/2025 Start: 06-17-2024 End: 06-17-2025 Creatinine [Mass/volume] in Serum or Plasma Creatinine Lab Routine Multigravida of advanced maternal age in first trimester Expected: 06/17/2024 (Approximate), Expires: 06/17/2025 [facility] Comment on above: Expected: 06/17/2024 (Approximate), Expires: 06/17/2025 Start: 06-17-2024 End: 06-17-2025 Drugs of abuse panel - Urine by Screen method Rapid drug screen, urine Lab Routine Missed menses Encounter for supervision of normal first in first trimester , unspecified gestational age Expected: 06/17/2024 (Approximate), Expires: 06/17/2025 [facility] Comment on above: Expected: 06/17/2024 (Approximate), Expires: 06/17/2025 Start: 06-17-2024 End: 06-17-2025 Lactate dehydrogenase [Enzymatic activity/volume] in Serum or Plasma by Lactate to pyruvate reaction Lactate dehydrogenase Lab Routine Multigravida of advanced maternal age in first trimester Expected: 06/17/2024, Expires: 06/17/2025 [facility] Comment on above: Expected: 06/17/2024 , Expires: 06/17/2025 Start: 06-17-2024 End: 06-17-2025 Protein, urine, 24 hour Protein, urine, 24 hour Lab Routine Multigravida of advanced maternal age in first trimester Expected: 06/17/2024 (Approximate), Expires: 06/17/2025 [facility] Comment on above: Expected: 06/17/2024 (Approximate), Expires: 06/17/2025 Start: 06-17-2024 End: 06-17-2025 Pt and ptt Pt and ptt Lab Routine Multigravida of advanced maternal age in first trimester Expected: 06/17/2024, Expires: 06/17/2025 [facility] Comment on above: Expected: 06/17/2024 , Expires: 06/17/2025 Start: 06-17-2024 End: 06-17-2025 Urate [Mass/volume] in Serum or Plasma Uric acid Lab Routine Multigravida of advanced maternal age in first trimester Expected: 06/17/2024 (Approximate), Expires: 06/17/2025 [facility] Comment on above: Expected: 06/17/2024 (Approximate), Expires: 06/17/2025 Start: 06-17-2024 End: 06-17-2025 Urea nitrogen [Mass/volume] in Serum or Plasma BUN Lab Routine Multigravida of advanced maternal age in first trimester Expected: 06/17/2024, Expires: 06/17/2025 [facility] Comment on above: Expected: 06/17/2024 , Expires: 06/17/2025 Start: 06-17-2024 End: 06-17-2025 US Pelvis transvaginal US OB transvaginal Imaging Routine complicated by intrauterine device (IUD) Expected: 06/17/2024 (Approximate), Expires: 06/17/2025 [facility] Comment on above: Expected: 06/17/2024 (Approximate), Expires: 06/17/2025 Start: 06-17-2024 End: 06-17-2024 Patient encounter procedure 06/17/2024 10:50 AM EDT Routine [facility] [address] [address] Catrachito Aiken DO [address] [place] [address] Arrived [facility] Comment on above: Arrived Start: 06-11-2024 X-ray of left knee XR knee LT 3V - NOT FOR ER USE [facility] Start: 06-11-2024 XR Knee - left 3 Views [facility] Start: 05-31-2024 End: 05-31-2024 Patient encounter procedure [facility] Start: 05-26-2024 COVID-19 Vaccine ( season) COVID-19 Vaccine ( season) [facility] Start: 05-26-2024 COVID-19 Vaccine ( season) COVID-19 Vaccine ( season) [facility] Start: 05-26-2024 Influenza vaccination [facility] Start: 05-23-2024 End: 05-23-2024 Professional / ancillary services management 05/23/2024 3:45 PM EDT Ancillary Procedure [facility] [address] [phone] [facility] Start: 05-23-2024 End: 05-23-2024 ambulatory 05/23/2024 3:30 PM EDT Initial [facility] [address] [place] [phone] Sandrita Bowers, PRE[facility] [address] [place], [place] [phone] Arrived [facility] Comment on above: Arrived Start: 04-29-2024 Hospital admission [facility] Start: 04-29-2024 End: 04-29-2024 [facility] Start: 04-29-2024 Physical therapy procedure [facility] Start: 04-19-2024 Plain X-ray of left femur XR femur L T 2V* [facility] Start: 04-19-2024 Plain X-ray of left tibia and left fibula XR tibia fibula LT 2V* [facility] Start: 04-19-2024 XR Femur - left 2 Views [facility] Start: 04-19-2024 XR Tibia and Fibula - left 2 Views [facility] Start: 04-15-2024 [facility] Start: 03-12-2024 MRSA Culture MRSA Culture [facility] Start: 02-15-2024 Pelvis X-ray XR pelvis 1-2V [facility] Start: 02-15-2024 Radiologic examinati on of knee XR knee LT 4V* [facility] Start: 02-15-2024 XR Knee - left 4 Views [facility] Start: 02-15-2024 XR Pelvis 1 or 2 Views [facility] Start: 07-02-2022 DTaP/Tdap/Td vaccine (2 - Td) DTaP/Tdap/Td vaccine (2 - Td) [place], [place] Start: 05-26-2020 Influenza vaccination Flu vaccine (# 1) [place], [place] Start: 04-21-2020 End: 04-21-2020 Office Visit 04/21/2020 Office Visit Obstetrics and Gynecology Karel Palm DO [address] [place], [place] [id number] [phone] [facility] [place] Start: 05-26-2019 Influenza vaccination Flu vaccine (# 1) [place], [place] Start: 2018 Screening for malign ant neoplasm of cervix [facility] Start: 2009 Cervical cancer screen Cervical canc er screen [place], [place] Start: 2009 Screening for malign ant neoplasm of cervix [facility] Start: 2007 DTaP/Tdap/Td vaccine (1 - Tdap) DTaP/Tdap/Td vaccine (1 - Tdap) [place] Start: 2006 Adult BMI Follow Up Plan Adult BMI Follow Up Plan [facility] Start: 2003 HIV screen HIV screen Bina Bryan [place], [place] Start: 2003 HIV screening HIV screen Bina Solomon [place], [place] Start: 2001 Varicella Vaccine (1 of 2 - 13+ 2-dose series) Varicella Vaccine (1 of 2 - 13+ 2-dose series) [place], [place] Start: 2000 Depression Screening Depression Scre brittany [facility] Start: 1989 Varicella vaccine (1 of 2 - 2-dose childhood series) Varicella vaccine (1 of 2 - 2-dose childhood series) [place] Bacteria identified in Urine by Culture Urine culture Microbiology Routine Missed menses Ordered: 06/17/2024 [facility] Comment on above: Ordered: 06/17/2024 CHLAMYDIA TRACHOMATI S (GENITO/STI) CHLAMYDIA TRACHOMATIS (GENITO/STI) Lab Routine Exposure to STD Ordered: 08/12/2024 [facility] Comment on above: Ordered: 08/12/2024 End: 05-31-2019 Cobalamin (Vitamin B12) [Mass/Vol] Vitamin B12 Lab Routine History of bariatric surgery 1 Occurrences starting 05/31/2019 until 05/31/2019 [place], [place] Comment on above: 1 Occurrences starti ng 05/31/2019 until 05/31/2019 Cobalamin (Vitamin B 12) [Mass/Vol] Vitamin B12 Lab Routine History of bariatric surgery 05/31/2019 8:42 AM EDT [place] Cotinine [Mass/volum e] in Serum or Plasma [facility] Cotinine [Mass/volum e] in Serum or Plasma [facility] End: 04-02-2020 Covid-19 Ambulatory Covid-19 Ambulatory Lab Routine Once for 1 Occurrences starting 04/02/2020 until 04/02/2020 [place] Comment on above: Once for 1 Occurrenc es starting 04/02/2020 until 04/02/2020 Covid-19 Ambulatory Covid-19 Amb ulatory Lab Routine 04/02/2020 10:12 PM EDT [place] Glucose measurement estimated from glycated hemoglobin [facility] Hemoglobin A1c/Hemoglobin.total in Blood Hemoglobin A1c Lab Routine Missed menses Ordered: 06/17/2024 [facility] Comment on above: Ordered: 06/17/2024 Hepatitis B virus herr rface Ag [Presence] in Serum or Plasma by Immunoassay Hepatitis B surface antigen Lab Routine Missed menses Ordered: 06/17/2024 [facility] Comment on above: Ordered: 06/17/2024 Hepatitis C virus Ab [Presence] in Serum or Plasma by Immunoassay Hepatitis C antibody Lab Routine Missed menses Ordered: 06/17/2024 [facility] Comment on above: Ordered: 06/17/2024 HIV-1/HIV-2 antigen/antibody combination immunoassay HIV-1 and HIV-2 antibodies Lab Routine Missed menses Ordered: 06/17/2024 [facility] Comment on above: Ordered: 06/17/2024 Methicillin resistan t Staphylococcus aureus [Presence] in Unspecified specimen by Organism specific culture [facility] MR Knee - left WO contrast F [facility] Neisseria gonorrhoea e DNA [Presence] in Unspecified specimen by SORIN with probe detection Neisseria gonorrhea DNA probe, direct Lab Routine Exposure to STD Ordered: 08/12/2024 [facility] Comment on above: Ordered: 08/12/2024 Nicotine [Mass/volum e] in Serum or Plasma [facility] Nicotine [Mass/volum e] in Serum or Plasma [facility] Patient Education Know your Meds [facility] Work Phone: Reagin Ab [Presence] in Serum by RPR RPR Lab Routine Missed menses Ordered: 06/17/2024 [facility] Comment on above: Ordered: 06/17/2024 Rubella antibody, IgG Rubella an tibody, IgG Lab Routine Missed menses Ordered: 06/17/2024 [facility] Comment on above: Ordered: 06/17/2024 SURESWAB(R) ADVANCED VAGINITIS PLUS, TMA SURESWAB(R) ADVANCED VAGINITIS PLUS, TMA Pathology and Cytology Routine Exposure to STD Ordered: 08/12/2024 [facility] Work Phone: Comment on above: Ordered: 08/12/2024 End: 03-31-2025 US for US OB follow up transabdominal approach Imaging Routine Retained intrauterine device (IUD) during in second trimester every 4 weeks for 4 Occurrences starting 10/01/2024 until 03/31/2025 [facility] Comment on above: every 4 weeks for 4 Occurrences starting 10/01/2024 until 03/31/2025 [facility] Immunizations Immunization Date Immunization Notes Care Provider Marty cerna 07-10-2024 influenza virus vaccine, unspecified formulation Catrachitodamian Villatoroo DO Work Phone: [facility] 07-29-2021 COVID-19 mRNA-1273 (Moderna) [facility] 10-29-2020 COVID-19 mRNA-1273 (Moderna) [facility] 10-01-2020 COVID-19 mRNA-1273 (Moderna) [facility] 06-30-2020 influenza virus vaccine, unspecified formulation Sandrita Floro CNM Work Phone: [facility] 07-03-2019 influenza virus vaccine, unspecified formulation Yesica Khan [place], [place] 06-05-2017 influenza, seasonal, injectable Sandrita Floro CNM Work Phone: [facility] 05-12-2017 influenza, injectabl e, quadrivalent, preservative free Sandrita Floro CNM Work Phone: [facility] 07-02-2012 tetanus toxoid, redu virginia diphtheria toxoid, and acellular pertussis vaccine, adsorbed Yesica Khan [facility] 05-18-2001 measles, mumps and rubella virus vaccine Sandrita Floro CNM Work Phone: [facility] Payers Date Payer Category Payer Commercial Managed C are - HMO [id number] 2024 Managed Care HMO (unspecified) [id number] 2024 Unknown [id number] 2024 Self-pay [id number] 2023 Blue Cross Blue Shield BCBS [id number] 2023 Unknown 2023 Unknown [id number] 2022 Unknown [id number] 2020 Unknown [id number] 2018 Unknown MEDICAL MUTUAL M EDICAL MUTUAL [employer] MH EMP xxxxxxxxxxxx 2018-Present [phone] [address] [place] [address] xxxxxxxxxxxx [id number] .[id number] 2018 Medicaid [id number] 2014 Unknown PARAMOUNT ADVANT AGE PARAMOUNT ADVANTAGE xxxxxxxxxxx 2014-Present [phone] [address] [place] [address] xxxxxxxxxxx [id number] .[id number] 1988 Unknown [id number] 2.16.840.1.018359.3.579.2 .196 1988 Unknown [id number] 2.16.840.1.532688.3.579.2 .196 1988 Unknown [id number] 2.16.840.1.666741.3.579.2 .196 1988 Unknown [id number] 2.16.840.1.938652.3.579.2 .1286 1988 Unknown [id number] 2.16.840.1.217865.3.579.2 .1285 1988 Unknown [id number] 2.16.840.1.169517.3.579.2 .1285 1988 Unknown [id number] 2.16.840.1.076993.3.579.2 .1285 1988 Unknown [id number] 2.16.840.1.056953.3.579.2 .1285 1988 Unknown [id number] 2.16.840.1.931178.3.579.2 .1285 1988 Unknown [id number] 2.16.840.1.080726.3.579.2 .1285 1988 Unknown [id number] 2.16.840.1.507182.3.579.2 .1285 1988 Unknown [id number] 2.16.840.1.841298.3.579.2 .1285 1988 Unknown [id number] 2.16.840.1.420091.3.579.2 .8 1988 Unknown [id number] 2.16.840.1.106783.3.579.2 .1988 Unknown [id number] 2.16.840.1.241499.3.579.2 .1988 Unknown [id number] 2.16.840.1.517009.3.579.2 .1988 Unknown [id number] 2.16.840.1.026420.3.579.2 .1988 Unknown [id number] 2.16.840.1.446781.3.579.2 .1988 Unknown [id number] 2.16.840.1.453446.3.579.2 .718 1988 Unknown [id number] 2.16.840.1.283277.3.579.2 .718 1988 Unknown [id number] 2.16.840.1.670386.3.579.2 .9 1988 Unknown [id number] 2.16.840.1.695980.3.579.2 .9 1988 Unknown [id number] 2.16.840.1.661706.3.579.2 .1258 1988 Unknown [id number] 2.16.840.1.244002.3.579.2 .1258 1988 Unknown [id number] 2.16.840.1.828215.3.579.2 .1258 1988 Unknown [id number] 2.16.840.1.235658.3.579.2 .1258 1988 Unknown [id number] 2.16.840.1.282685.3.579.2 .9 1988 Unknown [id number] 2.16.840.1.514747.3.579.2 .1258 1988 Unknown [id number] 2.16.840.1.587146.3.579.2 .9 1988 Unknown [id number] 2.16.840.1.192523.3.579.2 .1258 1988 Unknown [id number] 2.16.840.1.986592.3.579.2 .1258 1988 Unknown [id number] 2.16.840.1.078939.3.579.2 .1258 1988 Unknown [id number] 2.16.840.1.255719.3.579.2 .1258 1988 Unknown [id number] 2.16.840.1.399514.3.579.2 .1258 1988 Unknown [id number] 2.16.840.1.627776.3.579.2 .1286 Unknown [facility] Employees [id number] Unknown [id number] 2.16.840.1.161893.3.579.2 .531 Unknown [id number] 2.16.840.1.465827.3.579.2 .531 Unknown [id number] 2.16.840.1.686945.3.579.2 .531 Unknown [id number] 2.16.840.1.339915.3.579.2 .531 Social History Date Type Detail Facility Start: 05-17-2019 End: 01-03-2020 Tobacco smoking status NHIS Former smoker [place] Start: 05-17-2019 End: 04-25-2024 Cigarettes smoked current (pack per day) - Reported [place] Start: 05-17-2019 End: 04-25-2024 Alcohol intake Yes [place] Start: 05-17-2019 Alcohol Comment social [place] Start: 1990 Sex Assigned At Not on file [place] Start: 01-03-2020 End: 11-21-2024 Alcohol intake Current drinker of alcohol (finding) [place] Start: 11-14-2019 End: 04-20-2023 Tobacco smoking status WIIS Never smoked tobacco (finding) [facility] Start: 1990 Sex Assigned At Female F [facility] Start: 07-29-2016 End: 04-20-2023 Tobacco use and exposure Smokeless tobacco non-user [facility] Start: 04-21-2024 [facility] Unknown [facility] Start: 07-29-2016 Alcohol Comment 1-2 drinks per month [facility] Start: 07-05-2024 End: 09-04-2024 Alcoholic beverage intake Ex-drinker (finding) [facility] Start: 04-30-2015 Sex Female (finding) [facility] NEGATED: Highlighted row [facility] Medical Equipment Procedure Code Equipment Code Equipment Origin al Text Equipment Identifier Dates Arthroplasty, knee, total, minimally invasive Uncoated unicondylar knee femur prosthesis [id number] FDA Start: 04-29-2024 Arthroplasty, knee, total, minimally invasive Uncoated unicondylar knee tibia prosthesis, metallic [id number] FDA Start: 04-29-2024 Arthroplasty, knee, total, minimally invasive Unicondylar knee insert ()[id number] FDA Start: 04-29-2024 Arthroplasty, knee, total, minimally invasive Orthopaedic cement, non-medicated [id number] FDA Start: 04-29-2024 1 strip by In Vi tro route Daily Use in the morning prior to breakfast, 1 hour after each meal for a total of 4times daily. [id number] Start: 07-08-2024 End: 08-07-2024 1 each by In Vit ro route Daily Use to check FSBS four times daily [id number] Start: 07-08-2024 End: 08-07-2024 Goals Date Patient Goal Desired Activity /State Clinical Notes 07-11-2023 to 11-21-2024 Mariaelena Machado LPN - 11/21/2024 11:50 AM Chapito Machado [employer] - 11/07/2024 1:30 PM Swati Fisher LPN [...] nursing note reviewed. Exam conducted with a day care attendant present. Vitals: Estimated body mass index is [...] Aiken DO documented in this encounter [facility] 11-07-2024 History of Present illness Narrative Reason [...] nursing note reviewed. Exam conducted with a day care attendant present. Vitals: Estimated body mass index is [...] Aiken DO documented in this encounter [facility] 11-06-2024 Note Patient Education Ma terials Follows: [...] or lying down. General instructions ? Take uxhp-lvu-yjwbwaa and prescription medicines only as told by [...] provider. Document Revised: 03/06/2023 Document Reviewed: 03/06/2023 [employer] Patient Education ? 2023 [employer] Contusion A contusion is a deep bruise. Contusions are the result of a blunt injury to tissues and muscle fibers under the skin. The injury causes bleeding under the skin. The skin over the contusion may turn blue, p (more content not included)... [facility] 10-01-2024 History of Present illness Narrative [...] nursing note reviewed. Exam conducted with a day care attendant present. Vitals: Estimated body mass index is [...] Aiken DO documented in this encounter [facility] 09-04-2024 History of Present illness Narrative [facility] [...] 03/30/2022 Performed by Mason Martinez DO at [facility] SECTION 06/25/2012 SECTION 10/26/2014 laparoscopic hiatal hernia repair N/A 08/05/2016 Performed by Vahe Fernandez MD at [facility] LAPAROSCOPIC SLEEVE GASTRECTOMY POSSIBLE CLOSURE OF DIAPHRAGMATIC CRURA [facility]NM-CLINIC N/A 08/05/2016 Performed by Vahe Fernandez MD at [facility] MICRODISCECTOMY LUMBAR Allergies: Allergies Allergen Reactions [...] Strain: Low Risk (03/13/2024) Received from [facility] Overall Financial Resource Strain (CARDIA) Difficulty of Paying Living Expenses: Not hard at all Food Insecurity: No Food Insecurity (07/05/2024) Hunger Screening Food Insecurity - Worry: Never True Food Insecurity - Inability: Never True Transportation Needs: Unknown (03/13/2024) Received from [facility] PRAPARE - Transportation Lack of Transportation (Medical): Not on file Lack of Transportation (Non-Medical): No Physical Activity: Not on file Stress: Not on file Social Connections: Not on file Interpersonal Safety: Not on file Housing Instability: Unknown (03/13/2024) Received from [facility] Housing Stability Vital Sign Unable to [...] - 1.00 mg/dL Final METHOD TRACEABLE TO IDND STANDARD eGFR (CKD-EPI)non-race dependent 07/10/2024 >90 >59 [...] gestation of [Z3A.21] Please refer to prior [facility] recommendations and consultation notes Ultrasound was [...] Christen Reid MD, FACOG (she/hers) Maternal- Medicine [facility] [address] [place] [address] This document was created with [employer] technology. Though I make every effort to review the dictation as it is transcribed, on occasion the spoken word can be misinterpreted by the technology leading to inappropriate words, phrases, or sentences. This note is addressed to the requesting provider as a consultation for clinical guidance. Specific medical abbreviations are occasionally used and those are generally approved by the [place]?Board of?Obstetrics and?Gynecology?as well as?Vilma mckeon abbreviations. The above plan of care was based solely on the diagnoses for which a consultation was requested. ?More frequent testing may be indicated based on her other medical/obstetrical conditions. The management of other or medical conditions is beyond the scope of requested consultation and will continue to be followed by the primary can line examiner or primary care provider. Note to patient: [...] provider today? No documented in this encounter [facility] 08-12-2024 History of Present illness Narrative Reason [...] ALTAF Nation documented in this encounter [facility] 07-16-2024 History of Present illness Narrative Reason for Appointment: Patient ID: Lucila Jacques is a 34 y.o. female who presents for No chief complaint on file. Patient presents today for Return OB appointment. MEDICATIONS Current Outpatient Medications Medication Instructions Alcohol Swabs (Alcohol Prep Pad) 70 % pads 1 Pad, Topical, Daily, Use four times daily to check FSBS. Blood Glucose Monitoring Suppl (ApplyKit Glucometer) w/Device kit 1 kit, Does not [...] Past Medical History: Diagnosis Date Migraine headache (CMS/[facility]) Social History Tobacco Use Smoking status: Never [...] nursing note reviewed. Exam conducted with a day care attendant present. Vitals: Estimated body mass index is [...] or undercooked meat, and stay away from [facility]. Patient has been consulted regarding any further do's and don'ts of . Patient voiced understanding and all questions and concerns were answered. Orders Placed This Encounter Procedures POCT urinalysis dipstick manually resulted Follow Up: Patient is to return in 4 weeks for routine OB appointment. Documented by Vikki Fisher LPN on behalf of: Catrachito Aiken DO documented in this encounter [facility] 07-05-2024 History of Present illness Narrative Headache/epigastric [...] 03/30/2022 Performed by Mason Martinez DO at [facility] SECTION 06/25/2012 SECTION 10/26/2014 laparoscopic hiatal hernia repair N/A 08/05/2016 Performed by Vahe Fernandez MD at [facility] LAPAROSCOPIC SLEEVE GASTRECTOMY POSSIBLE CLOSURE OF DIAPHRAGMATIC CRURA [facility] N/A 08/05/2016 Performed by Vahe Fernandez MD [...] Resource Strain: Low Risk (03/13/2024) Received from [facility] Overall Financial Resource Strain (CARDIA) Difficulty of Paying Living Expenses: Not hard at all Food Insecurity: No Food Insecurity (07/05/2024) Hunger Screening Food Insecurity - Worry: Never True Food Insecurity - Inability: Never True Transportation Needs: Unknown (03/13/2024) Received from [facility] PRAPARE - Transportation Lack of Transportation (Medical): Not on file Lack of Transportation (Non-Medical): No Physical Activity: Not on file Stress: Not on file Social Connections: Not on file Interpersonal Safety: Not on file Housing Instability: Unknown (03/13/2024) Received from [facility] Housing Stability Vital Sign Unable to [...] bring it to the attention of her can line examiner to confirm intact expulsion. 2. Obesity affecting [...] to be sent by Dr. Aiken's office. [facility] is happy to review sugar log [...] continue with routine care in your office [facility], the CDC, and other organizations representing maternal and public health professionals recommend that , , and lactating people and those considering receive the COVID-19 vaccination. Vaccination is the best method to reduce maternal and complications of SARS-CoV-2 infection. This document was created with [employer] technology. Though I make every effort to review the dictation as it is transcribed, on occasion the spoken word can be misinterpreted by the technology leading to inappropriate words, phrases, or sentences. This note is addressed to the requesting provider as a consultation for clinical guidance. Specific medical abbreviations are occasionally used and those are generally approved by the [place]?Board of?Obstetrics and?Gynecology?as well as?Vilma s abbreviations. The above plan of care was based solely on the diagnoses for which a consultation was requested. ?More frequent testing may be indicated based on her other medical/obstetrical conditions. The management of other or medical conditions is beyond the scope of requested consultation and will continue to be followed by the primary can line examiner or primary care provider. Thank you for [...] Referring and communicating with other health rn long term care (not separately reported) Documenting clinical information in the electronic or other health record Independently interpreting results (not separately reported) and communicating results to the patient/family/caregiver Care coordination (not separately reported) documented in this encounter [facility] [employer] 06-17-2024 History of Present illness Narrative Reason [...] nursing note reviewed. Exam conducted with a day care attendant present. Vitals: Estimated body mass index is [...] to continue and OB care locally at [facility] office with Dr. Aiken along with M. Patient advised to take 81mg Aspirin if tolerated. Gave patient orders for early 24 hour urine and lab workup. Patient to return to clinic in 4 weeks. Documented by Mariaelena Machado LPN on behalf of: Catrachito Aiken DO documented in this encounter [facility] 05-31-2024 History of Present illness Narrative REASON [...] Gastroesophageal reflux disease without esophagitis Morbid obesity ([facility]) Past Medical History: Diagnosis Date Anxiety [...] 03/30/2022 Performed by Mason Martinez DO at [facility] SECTION 06/25/2012 SECTION 10/26/2014 laparoscopic hiatal hernia repair N/A 08/05/2016 Performed by Vahe Fernandez MD at [facility] LAPAROSCOPIC SLEEVE GASTRECTOMY POSSIBLE CLOSURE OF DIAPHRAGMATIC CRURA DNM-CLINIC N/A 08/05/2016 Performed by Vahe Fernandez MD at [facility] MICRODISCECTOMY LUMBAR SLEEVE GASTROPLASTY 08/05/2016 ALLERGIES: Allergies [...] and the other consultants, we search on [employer] and all the available care everywhere epic I did review all the imaging studies of the patient available on EMR, ordered by the primary care physician and the other medical cost consultant HABITS: Patient activity no restrictions, diet [...] patient is in complete care of her can line examiner. Patient does have ultrasound office visit scheduled with us. Thank you for allowing me to participate in Lucila Jacques . If there any questions please do not hesitate to contact us. Sincerely, LEXI ROBERTSON MD documented in this encounter [facility] [employer] 05-23-2024 History of Present illness Narrative Subjective [...] also given office phone number and [facility] number to call in case of an emergency or after hours needs. PVU and all questions answered. We did discuss place of delivery. Patient should plan to go to [facility] for all services unless an emergency and they need to go to the closest ER. We can make other arrangements possibly if patient would like to deliver at another facility but I did explain I am now at [facility] 100% of the time and would like to do all deliveries there. documented in this encounter [facility] 05-22-2024 Telephone encounter Note Pt had an IUD inserted a month ago and has tested positive for , she hadn't been feeling good lately and it is positive, please call to discuss the next step, in her pregancy and IUD [facility] 05-22-2024 Miscellaneous Notes Pt had an IUD inserted a month ago and has tested positive for , she hadn't been feeling good lately and it is positive, please call to discuss the next step, in her pregancy and IUD documented in this encounter [facility] 02-27-2024 Note Education Materials Gastroenterology Laparoscopic cholecystectomy, [...] these instructions at home: Medicines ? Take zory-nss-vkdiima and prescription medicines only as told by [...] keep your urine pale yellow. ? Take yyxe-qci-cmxrdwx or prescription medicines. ? Eat foods that [...] and water are not available, use hand paleobotanist. ? Place dry dressings as needed. ? [...] Reviewed: 03/15/2022 Shaylee Patient Education ? 2022 [employer]. [facility] 02-27-2024 Note [facility] Clinical Discharge Summary PERSON INFORMATION Name LUCILA JACQUES Age 33 Years 1990 Sex FEMALE Language Citizen Of [place] PCP Provider, None Marital Status Med Service Observation Acct# Arrival 02/26/2024 22:40:28 Visit Reason Abdominal pain; ACUTE CHOLECYSTITIS Acuity LOS 000 10:25 Address: [address] [place] [address] Comment: PROVIDER INFORMATION VITALS INFORMATION Vital Sign [...] ibuprofen Medication List: New Medications [id number], [address], [place] [id number], [phone] acetaminophen-hydrocodone (acetaminophen-hydrocodone 325 mg-5 mg oral tablet) [...] range between ( 1.3 and 2.9 ) Beltrami Abs#: 0.6 x103/mcL -- Normal range between ( 0.0 and 0.8 ) Auto Baso %: 0.4 % -- Normal range between ( 0.2 and 2.0 ) Auto Beltrami %: 8 % -- Normal range between [...] Gap: 1 (more content not included)... [facility] 01-15-2024 Note [id number] [facility] 01-12-2024 Note [facility] SURGERY Clinical Discharge Summary PERSON INFORMATION Name LUCILA JACQUES Age 33 Years 1990 Sex FEMALE Language Citizen Of [place] PCP Provider, None Marital Status Med Service Pain Management Surgery Acct# Arrival 01/12/2024 10:59:54 Visit Reason GENICULAR PAIN Acuity LOS 004 01:11 Address: [address] [place] [address] Comment: PROVIDER INFORMATION VITALS INFORMATION Vital Sign [...] Confirmed DIAGNOSIS Comment: PHYS DOC NOTES [facility] 01-11-2024 Note [id number] The history of present illness has been reviewed. There are no changes document. [Electronically Signed on: 01/12/2024 11:34 EDT] ALEC PATEL MD [Verified on: 01/12/2024 11:34 EDT] ALEC PATEL MD [Transcribed on: 01/11/2024 13:06 EDT] [facility] 08-23-2023 Note Date of Telehealth V isit: 08/23/23 The patient was notified that using 3rd democrat telecommunication application (e.g. [employer]) is not HIPAA compliant and may carry some privacy risks: Yes This visit was conducted dyfz-uk-tvtg with the use of audio and video [...] shortness of breath. She has been using cozz-jfo-jqgcqfy medications with minimal relief of symptoms. ROS: [...] EMR, and coordinating care. Ching Brooks PA-C [facility] 07-11-2023 Note [facility] Telemedicine Visit Date of Telehealth Visit: 07-11-2023 The patient was notified that using 3rd democrat telecommunication application (e.g. [employer]) is not HIPAA compliant and may carry some privacy risks This visit was conducted bcbb-yd-agot with the use of audio and video technology using [employer] between patient and the provider for a virtual visit. Verbal consent to provide and bill this service was obtained on: 07-11-2023 No signature was obtained due to the COVID-19 pandemic. Chief Complaint Patient presents with Headache HPI Patient is a 33-year-old female who presents the telemedicine service today with complaints of a 3-day history of migraines. Patient states that she is taken mpvd-xbg-twnskph Tylenol and Tylenol PM. She has a [...] today's date. Greater than 16 minutes spent cpmi-am-inrv assessing patient, reviewing chart and discussing plan of care including treatment options. Care collaborated all questions answered. Rekha Mustafa PA-C Portions of this chart have been completed with voice recognition software, please excuse any errors. [facility] Evaluation note No assessment inform ation available [facility] Work Phone: Evaluation note Diagnosis Onset Date Primary osteoarthritis of left knee acute [facility] Work Phone: Evaluation note* Diagnosis Onset Date Resolution Status Primary osteoarthritis of left knee acute Primary osteoarthritis of left knee acute [facility] Work Phone: Evaluation note* Diagnosis Onset Date Resolution Status Primary osteoarthritis of left knee acute Status post left partial knee replacement acute [facility] Work Phone: Evaluation note* Diagnosis Onset Date Resolution Status Primary osteoarthritis of left knee acute Status post left partial knee replacement acute Status post left partial knee replacement acute [facility] Work Phone: Evaluation note* Diagnosis 14 weeks gestation of Second trimester state, incidental [facility] Diagnosis Exposure to STD Need for maternal serum alpha-protein (MSAFP) screening Screening, , for anatomic survey Encounter for anatomic survey Second trimester state, incidental 18 weeks gestation of documented in this encounter [facility]* Diagnosis examination or test, positive result- Primary IUD check up Amenorrhea Absence of menstruation documented in this encounter [facility] HealthcareEvaluation note* Diagnosis Missed menses Encounter for supervision of normal first in first trimester , unspecified gestational age Encounter for screening for cervical length complicated by intrauterine device (IUD) induced hypertension, antepartum Transient hypertension of , antepartum Multigravida of advanced maternal age in first trimester documented in this encounter [facility] HealthcareEvaluation note* Diagnosis Second trimester state, incidental 25 weeks gestation of with normal glucose tolerance test (GTT) Diabetes mellitus screening Screening for diabetes mellitus Retained intrauterine device (IUD) during in second trimester documented in this encounter [facility] HealthcareEvaluation note* Diagnosis Third trimester state, incidental 30 weeks gestation of with IUD in place, antepartum, first trimester documented in this encounter [facility] note* Diagnosis Retained intrauterine device (IUD) during in first trimester- Primary documented in this encounter [facility]* Diagnosis Retained intrauterine device (IUD) during in first trimester- Primary [facility] Diagnosis Retained intrauterine device (IUD) during in second trimester- Primary BMI 36.0-36.9,adult Multigravida of advanced maternal age in second trimester documented in this encounter [facility]* Diagnosis Retained intrauterine device (IUD) during in second trimester- Primary Obesity affecting in second trimester, unspecified obesity type BMI 36.0-36.9,adult Multigravida of advanced maternal age in second trimester Anxiety during Depression affecting History of 2 sections History of knee replacement, unspecified laterality Bariatric surgery status complicating , second trimester Family history of clubfoot 12 weeks gestation of [facility]* Diagnosis 21 weeks gestation of - Primary Retained intrauterine device (IUD) during in second trimester History of gastric bypass Obesity affecting in second trimester, unspecified obesity type with history of section, antepartum Multigravida of advanced maternal age in second trimester [facility]* Diagnosis 21 weeks gestation of - Primary Retained intrauterine device (IUD) during in second trimester History of gastric bypass Multigravida of advanced maternal age in second trimester [facility]* Diagnosis 32 weeks gestation of Third trimester state, incidental with IUD in place, antepartum, first trimester documented in this encounter [facility] HealthcareInstructionsNot on filedocumented in this [facility] SystemInstructionsNot on filedocumented in this [facility] SystemInstructionsNot on filedocumented in this [facility] InstructionsNot on filedocumented in this [facility] InstructionsNot on filedocumented in this [facility] InstructionsNot on filedocumented in this [facility] Instructions* Attachments The following attachments cannot be sent through Care Everywhere. 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 Advance Directives and Living Will Power of Shoe Reconditioner Advance Directive Response Recorded Date/ Time Advance [...] Lexi Robertson MD [address], [address] [place] [id number] [facility] [address] [facility] [place] [address] Referral ID Status Reason Start Date Expiration Date V isits Requested Visits Authorized [id number] Pending Review 05/31/2024 05/31/2025 1 1 Specialty Diagnoses / Procedures Referred By Contac t Referred To Contact Maternal and Medicine Diagnoses Retained intrauterine device (IUD) during in second trimester BMI 36.0-36.9,adult Multigravida of advanced maternal age in second trimester Procedures US MFM with or without consult Mishel Segovia MD [address], [address] [place] [id number] [facility] [address] [place] [address] Referral ID Status Reason Start Date Expiration Date V isits Requested Visits Authorized [id number] Pending Review 07/05/2024 07/05/2025 1 1 Additional Source Comments INFORMATION SOURCE (unrecogn ized section and content) DATE CREATED AUTHOR 10/18/2021 [facility] DATE CREATED AUTHOR AUTHOR'S ORGANIZ ATION 08/30/2023 [facility] DATE CREATED AUTHOR AUTHOR'S ORGANIZ ATION 02/02/2024 [facility] DATE CREATED AUTHOR AUTHOR'S ORGANIZ ATION 03/16/2024 [facility] DATE CREATED AUTHOR AUTHOR'S ORGANIZ ATION 06/13/2024 [facility] DATE CREATED AUTHOR AUTHOR'S ORGANIZ ATION 09/07/2024 [facility] DATE CREATED AUTHOR AUTHOR'S ORGANIZ ATION 10/16/2024 [facility] DATE CREATED AUTHOR AUTHOR'S ORGANIZ ATION 11/12/2024 [facility] DATE CREATED AUTHOR AUTHOR'S ORGANIZ ATION 11/23/2024 [facility] EPIC DATE CREATED AUTHOR [...] June 11, 2024 End: June 11, 2024 Engineering Intern Relationship Specialty Start Date End Date Unallocated, Haley Garcia MD [address] [place] [address] PCP - General Family Medicine 02/01/24 Victor M Lujan, RETAIL ADVISOR [address] [place] [address] PCP - [employer] 03/25/24 Team Status: Inactive Member Role Status Dates NON STAFF Primary Care Provider Active Start: July 17, 2024 End: July 17, 2024 Santa Estrada II, MD Attending Provider Active Start: July 17, 2024 End: July 17, 2024 Engineering Intern Relationship Specialty Start Date End Date Unallocated, Haley Garcia MD [address] [facility] [place] [address] PCP - General Family Medicine 02/01/24 Victor M Lujan, RETAIL ADVISOR [address] [place] [address] PCP - [employer] 03/25/24 Engineering Intern Relationship Specialty Start Date End Date Unallocated, Haley Garcia MD [address] [place] [address] PCP - General Family Medicine 02/01/24 Victor M Lujan, RETAIL ADVISOR [address] [place] [address] PCP - [employer] 03/25/24 Engineering Intern Relationship Specialty Start Date End Date Unallocated, Haley Garcia MD [facility] [facility] [place] [address] PCP - General Family Medicine 02/01/24 Victor M Lujan, RETAIL ADVISOR [address] [place] [address] PCP - [employer] 03/25/24 Engineering Intern Relationship Specialty Start Date End Date Unallocated, Haley Garcia MD [facility] [place] [address] PCP - General Family Medicine 02/01/24 Victor M Lujan, RETAIL ADVISOR [facility] [place] [address] PCP - [employer] 03/25/24 Engineering Intern Relationship Specialty Start Date End Date Unallocated, Haley Garcia MD [facility] [place] [address] PCP - General Family Medicine 02/01/24 Victor M Lujan, RETAIL ADVISOR [facility] [place] [address] PCP - [employer] 03/25/24 Engineering Intern Relationship Specialty Start Date End Date Unallocated, Haley Garcia MD [facility] [place] [address] PCP - General Family Medicine 02/01/24 Victor M Lujan, RETAIL ADVISOR [address] [place] [address] PCP - [employer] 03/25/24 Engineering Intern Relationship Specialty Start Date End Date Unallocated, Haley Garcia MD [facility] [place] [address] PCP - General Family Medicine 02/01/24 Victor M Lujan, RETAIL ADVISOR [address] [facility] [place] [address] PCP - [employer] 03/25/24 Engineering Intern Relationship Specialty Start Date End Date Unallocated, Noms MD Radha [address] [place] [address] PCP - General Family Medicine 02/01/24 Victor M Lujan, RETAIL ADVISOR [address] [facility] [place] [address] PCP - [employer] 03/25/24 Engineering Intern Relationship Specialty Start Date End Date Unallocated, Noms MD Radha [address] [facility] [place] [address] PCP - General Family Medicine 02/01/24 Victor M Lujan, RETAIL ADVISOR [address] [place] [address] PCP - [employer] 03/25/24 Engineering Intern Relationship Specialty Start Date End Date Unallocated, Nommike Garcia MD [address] [facility] [place] [address] PCP - General Family Medicine 02/01/24 Victor M Lujan, RETAIL ADVISOR [address] [place] [address] PCP - [employer] 03/25/24 Engineering Intern Relationship Specialty Start Date End Date Unallocated, Haley Garcia MD [address] [place] [address] PCP - General Family Medicine 02/01/24 Victor M Lujan, RETAIL ADVISOR [address] [place] [address] PCP - [employer] 03/25/24 Engineering Intern Relationship Specialty Start Date End Date Unallocated, Acs ProviderMD [address] [facility] [place] [address] PCP - General Family Medicine 02/01/24 Victor M Lujan, RETAIL ADVISOR [address] [facility] [place] [address] PCP - [employer] 03/25/24 Engineering Intern Relationship Specialty Start Date End Date Unallocated, Noms MD Radha [address] [place] [address] PCP - General Family Medicine 02/01/24 Victor M Lujan, RETAIL ADVISOR [address] [place] [address] PCP - [employer] 03/25/24 Engineering Intern Relationship Specialty Start Date End Date Unallocated, Noms MD Radha [address] [place] [address] PCP - General Family Medicine 02/01/24 Engineering Intern Relationship Specialty Start Date End Date Pcp, [place] [address] PCP - General Family Medicine 09/04/23 Engineering Intern Relationship Specialty Start Date End Date Pcp, [place] [address] PCP - General Family Medicine 09/04/23 Engineering Intern Relationship Specialty Start Date End Date Pcp, [place] [address] PCP - General Family Medicine 09/04/23 Engineering Intern Relationship Specialty Start Date End Date Pcp, [place] [address] PCP - General Family Medicine 09/04/23 Engineering Intern Relationship Specialty Start Date End Date Pcp, [place] [address] PCP - General Family Medicine 09/04/23 Engineering Intern Relationship Specialty Start Date End Date Pcp, [place] [address] PCP - General Family Medicine 09/04/23 Engineering Intern Relationship Specialty Start Date End Date Pcp, [place] [address] PCP - General Family Medicine 09/04/23 Engineering Intern Relationship Specialty Start Date End Date Pcp, [place] [address] PCP - General Family Medicine 09/04/23 Engineering Intern Relationship Specialty Start Date End Date Unallocated, Noms Provider, MD [address] [address] PCP - General Family Medicine 02/01/24 Engineering Intern Relationship Specialty Start Date End Date Pcp, [place] [address] PCP - General Family Medicine 09/04/23 Goals [...] BE BASED ON THE PRIMARY CLINICAL RECORDS. [email or web address] provides no warranty or guarantee of the accuracy or completeness of information in this document.
[2024-12-12 13:11] LABS: Alanine Aminotransferase 18 U/L (14-59); Amylase 50 U/L (25-115); Aspartate Amino Transferase 19 U/L (15-37); Estimated GFR (African America >60 (>=60 mL/min/1.73m^2); Estimated GFR (Non-African Ame >60 (>=60 mL/min/1.73m^2); Uric Acid 4.3 mg/dL (2.6-6.0)
[2024-12-12 13:14] LABS: Alanine Aminotransferase 18 U/L (14-59); Albumin Globulin Ratio 0.7; Albumin Level 2.6 g/dL (3.4-5.0); Alkaline Phosphatase 147 U/L (46-116); Anion Gap 12.2; Aspartate Amino Transferase 19 U/L (15-37); BUN Creatinine Ratio 10.5; Bilirubin Total 0.5 mg/dL (0.2-1.0); Calcium 8.6 mg/dL (8.5-10.1); Carbon Dioxide 24.4 mmol/L (21.0-32.0); Chloride 103 mmol/L (98-107); Estimated GFR (African America >60 (>=60 mL/min/1.73m^2); Estimated GFR (Non-African Ame >60 (>=60 mL/min/1.73m^2); Globulin 3.9 g/dL; Glucose 81 mg/dL (74-106); Potassium 3.6 mmol/L (3.5-5.1); Sodium 136 mmol/L (136-145); Total Protein 6.5 g/dL (6.4-8.2)
[2024-12-12] MEDS: PROMETHAZINE HCL 12.5 MG in 0.9 % SODIUM CHLORIDE 50 ML 202 MG IV (13:18)
[2024-12-12 13:22] LABS: Partial Thromboplastin Time 25.6 sec (22.3-36.2); Prothrombin Time 9.7 sec (9.0-11.6)
[2024-12-12 13:31] LABS: INR <0.93
[2024-12-12 13:32] LABS: Fibrinogen 399 mg/dL (200-400)
[2024-12-12] MEDS: NALBUPHINE HCL 10 MG/ML AMPULE IV (14:19)
[2024-12-12 16:11] LABS: Creatinine Urine Random 13.25 mg/dL (20.00-300.00)
[2024-12-12 16:14] LABS: Protein Creatinine Ratio Urine 0.45; Total Protein Urine Random <6.0 mg/dL (<=11.9)
--- OUTSIDE RECORDS SUMMARY | 2024-12-12 19:27 | XMS_ITS | CCD ---
Author Organization [facility] Care Team Providers Care Gore Maker Name Role Phone Yesica Khan Primary Care [...] Provider MD Santa Estrada II Attending Provider [phone] NON STAFF Primary Care Provider Unavailabl e NON STAFF Primary Care Unavailable Santa Estrada II Attending Unavailabl e Santa Estrada II Admitting Unavailabl e Santa Estrada II Admitting Unavailabl e NON STAFF Primary Care Unavailable Santa Estrada II Attending Unavailabl e Santa Estrada II Admitting Unavailabl e NON STAFF Primary Care Unavailable Santa Estraad II Attending Unavailabl e NON STAFF Primary [...] Haley Provider Primary Care Provi sharla Tai LEAD PASTOR, Victor M Worley Unavailable NON STAFF Primary Care Provider UnavailMD Santa Whiteside II Attending Provider [phone] ATTILA, CATRACHITO R Referring Unavailable PCP, NOT [...] PCP, NOT IN SYSTEM Primary Care Unavailable [address] [place] [address], [facility] Referring Unavailable PCP, NOT IN SYSTEM Primary Care Unavailable ATTILA, CATRACHITO R Referring Unavailable PCP, NOT IN SYSTEM Primary Care Unavailable Pcp, Not In System Primary Care Provider Unavail able Peter Booth Attending Unavailable Provider, None Primary Care Unavailable [place], Audra M Admitting Unavailable [place], Audra M Attending Unavailable Provider, None Primary Care Unavailable Provider, None Primary Care Unavailable Maurizio Mast Admitting Unavailable Maurizio Mast Attending Unavailable Juliano Peterson Consulting Unavailable [place], Audra M Admitting Unavailable [place], Audra M Attending Unavailable Provider, None Primary Care Unavailable [place], Audra M Attending Unavailable Provider, None Primary Care Unavailable [place], Audra M Admitting Unavailable KINDLALEC F Admitting [...] Magnesium (1 source) Magnesium Drug Allergy 4 [facility] NSAIDs (1 source) Ibuprofen Drug Allergy 4 [facility] Potassium (1 source) Potassium Drug Allergy 4 [facility] (2 sources) Magnesium-Conta ining Compounds Propensity to adverse reactions to drug 9 [place], [place] (20 sources) Ibuprofen; Translations: [ibuprofen] Drug Allergy 9 [place], [place] (1 source) Potassium-Conta ining Compounds Propensity to adverse reactions to drug 0 [place], [place] (1 source) ALLERGIES NOT ON FILE; Translations: [ALLERGIES NOT ON FILE] Propensity to adverse reactions (disorder) [facility] Repository (20 sources) Magnesium; Translations: [magnesium] Drug Allergy 2 [facility] (20 sources) Potassium; Translations: [potassium] Drug Allergy 3 [facility] (9 sources) Contrast media Allergy to substance 4 [facility] (6 sources) NSAIDS (Non-Steroidal Anti-Inflamma Allergy to substance 4 [facility] (1 source) Ibuprofen Drug Allergy 4 [facility] Repository (20 sources) Non-steroidal anti-inflammato ry agent Drug Allergy 3 [facility] Healthcare Work Phone: (20 sources) Amoxicillin-Pot Clavulanate Drug Intolerance 1 [facility] Healthcare (20 sources) Amoxicillin; Translations: [AMOXICILLIN] Drug Allergy 4 [facility] Repository (12 sources) NSAIDs; Translations: [NSAIDS (NON-STEROIDAL ANTI-INFLAMMATO RY DRUG)] Propensity to adverse reactions to drug (disorder) 2 Hives [facility] Repository (20 sources) Potassium Chloride; Translations: [POTASSIUM CHLORIDE] Drug Allergy 2 Hiv [facility] Repository (16 sources) Iodinated Contrast Media; Translations: [IODINATED CONTRAST MEDIA] Drug Intolerance 4 Hives, Itching, Rash [facility] Healthcare Medications Current Medications Medication Drug [...] mouth Daily 08/12/2024 Discontinued (Therapy completed) levonorgestrel 0.930112 mg/hr intrauterine system (2 sources) Progestin, Progestin-containing [...] VITAMINS DAILY ORAL) Take by mouth. 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 Ordering Physician: Catrachito Aiken D.O. Date of Service: 12/02/24 Procedure(s): US OB BPP w non-stress Accession Number(s): [id number] cc: Catrachito Aiken D.O.; Physician,Non-Staff M.DWalker The [place] [id number] Patient Name: LUCILA JACQUES MRN: [facility]:[id number] date: 1990 Sex: F Assigned Patient Location: [facility] Current Patient Location: Accession/Order Number: [id number] Exam Date: 12/02/2024 13:46 Report Date: 12/02/2024 13:48 At the request of: CATRACHITO AIKEN DO Procedure: US OB BPP w non-stress BIOPHYSICAL PROFILE: CLINICAL INFORMATION: with IUD in place COMPARISON: 11/28/2024 A single live intrauterine gestation is present in cephalic presentation. The reported gestational age is 34 weeks 1 day. The heart rate [id number] beats per minute. FINDINGS: TONE: 1 or [...] Vikki Rivers M.D.12/02/2024 1:48 PM Dictation Location: [place] [address] Electronically authenticated by: [id number] Y Date: 12/02/2024 13:48 Dictated By: Vikki Rivers M.D. Signed By: 12/02/24 1351 DD/ 1348 TD/TT: Freelance Translator: [facility] Radiology, Radiologi MD kevin - 12/02/2024 [place] [address] Ultrasound Report Signed Patient: LUCILA JACQUES MR#: [id number] : 1990 Acct:[id number] Age/Sex: 34 / F ADM Date: 12/02/24 Loc: US Attending Dr: Catrachito Aiken D.O. Ordering Physician: Catrachito Aiken D.O. Date of Service: 12/02/24 Procedure(s): US OB BPP w non-stress Accession Number(s): [id number] cc: Catrachito Aiken D.O.; Physician,Non-Staff Farhat The [address] [address] Patient Name: LUCILA JACQUES MRN: [facility]:[id number] date: 1990 Sex: F Assigned Patient Location: [facility] Current Patient Location: Accession/Order Number: [id number] Exam Date: 12/02/2024 13:46 Report Date: 12/02/2024 13:48 At the request of: CATRACHITO AIKEN DO Procedure: US OB BPP w non-stress BIOPHYSICAL PROFILE: CLINICAL INFORMATION: with IUD in place COMPARISON: 11/28/2024 A single live intrauterine gestation is present in cephalic presentation. The reported gestational age is 34 weeks 1 day. The heart rate [id number] beats per minute. FINDINGS: TONE: 1 or [...] Vikki Rivers M.D.12/02/2024 1:48 PM Dictation Location: [place] [address] Electronically authenticated by: [id number] Y Date: 12/02/2024 13:48 Dictated By: Vikki Rivers M.D. Signed By: 12/02/24 1351 DD/ 1348 TD/TT: Freelance Translator: [facility] Radiology Study observation (narrative) [facility] US OB BPP W NON-STRESS Ordered By: Radiologist Radiology on 12-02-[address] [facility] Work Phone: AMNISUREon 11-25-2024 [facility] AMNISURE Negative NEGATIVE [facility] US OB BPP W NON-STRESS on 11-25-[address] [address] Ultrasound Report Signed Patient: LUCILA JACQUES MR#: [id number] : 1990 Acct:[id number] Age/Sex: 34 / F ADM Date: 11/25/24 Loc: US Attending Dr: Catrachito Aiken D.O. Ordering Physician: Catrachito Aiken D.O. Date of Service: 11/25/24 Procedure(s): US OB BPP w non-stress Accession Number(s): [id number] cc: Catrachito Aiken D.O.; Physician,Non-Staff Farhat The [place] [id number] Patient Name: LUCILA JACQUES MRN: [facility]:[id number] date: 1990 Sex: F Assigned Patient Location: [facility] Current Patient Location: [facility] Accession/Order Number: [id number] Exam Date: 11/25/2024 16:14 Report Date: 11/25/2024 16:15 At the request of: CATRACHITO AIKEN DO Procedure: US OB BPP w non-stress Biophysical profile. Reason for exam: IUD in place with current . COMPARISON: BPP 11/21/2024. TECHNIQUE: Transabdominal imaging of the gravid uterus was obtained. FINDINGS: The wig maker reports a BPP of 8 out of 8. ISAIAH 6.7 cm heart rate 140 bpm. US/US OB BPP w non-stress IMPRESSION: BPP 8 out of 8. Impression dictated by: Haile Palacio Jr., D.O.11/25/2024 4:15 PM Dictation Location: [place] [address] Electronically authenticated by: [id number] Y Date: 11/25/2024 16:15 Dictated By: Haile Palacio M.D. Signed By: 11/25/24 1618 DD/ 14 TD/TT: Freelance Translator: [facility] RadiologyIsidraogrodriguez brown MD - 11/25/2024 [place] [address] Ultrasound Report Signed Patient: LUCILA JACQUES MR#: [id number] : 1990 Acct:[id number] Age/Sex: 34 / F ADM Date: 11/25/24 Loc: US Attending Dr: Catrachito Aiken D.O. Ordering Physician: Catrachito Aiken D.O. Date of Service: 11/25/24 Procedure(s): US OB BPP w non-stress Accession Number(s): [id number] cc: Catrachito Aiken D.O.; Physician,Non-Staff aFrhat [place] [address] Patient Name: LUCIAL JACQUES MRN: [facility]:[id number] date: 1990 Sex: F Assigned Patient Location: [facility] Current Patient Location: [facility] Accession/Order Number: [id number] Exam Date: 11/25/2024 16:14 Report Date: 11/25/2024 16:15 At the request of: CATRACHITO AIKEN DO Procedure: US OB BPP w non-stress Biophysical profile. Reason for exam: IUD in place with current . COMPARISON: BPP 11/21/2024. TECHNIQUE: Transabdominal imaging of the gravid uterus was obtained. FINDINGS: The wig maker reports a BPP of 8 out of 8. ISAIAH 6.7 cm heart rate 140 bpm. US/US OB BPP w non-stress IMPRESSION: BPP 8 out of 8. Impression dictated by: Haile Palacio Jr., D.O.11/25/2024 4:15 PM Dictation Location: [place] [address] Electronically authenticated by: [id number] Y Date: 11/25/2024 16:15 Dictated By: Haile Palacio M.D. Signed By: 11/25/248 DD/ 14 TD/TT: Freelance Translator: [facility] Radiology Study observation (narrative) [facility] US OB BPP W NON-STRESS Ordered By: Radiologist Radiology on 11-25-[address] [facility] Work Phone: AMNISUREon 11-21-2024 [facility] AMNISURE Negative NEGATIVE [facility] No Panel InformationOrdered By: Radiologist Radiology on 11-21-[address] [facility] Work Phone: No Panel Informationon 11-21 Radiology Study observation (narrative) [facility] US OB BPP W NON-STRESS on 11-21-2024 [place] [address] Ultrasound Report Signed Patient: LUCILA JACQUES MR#: [id number] : 1990 Acct:[id number] Age/Sex: 34 / F ADM Date: Loc: [facility] 250-[address]: Catrachito Aiken D.O. Ordering Physician: Catrachito Aiken D.O. Date of Service: 11/21/24 Procedure(s): US OB BPP w non-stress Accession Number(s): [id number] cc: Catrachito Aiken D.O.; Physician,Non-Staff MChristie The [place] [address] Patient Name: LUCILA JACQUES MRN: [facility]:[id number] date: 1990 Sex: F Assigned Patient Location: [facility] Current Patient Location: Accession/Order Number: [id number] Exam Date: 11/21/2024 18:27 Report Date: 11/21/2024 [...] Ruddy Esquivel M.D.11/21/2024 6:32 PM Dictation Location: [place] [address] Electronically authenticated by: [id number] Y Date: 11/21/2024 18:32 Dictated By: Ruddy Esquivel M.D. Signed By: 11/21/241834 DD/ 31 TD/TT: Freelance Translator: [facility] Radiology, Radiologi MD kevin - 11/21/2024 [place] [address] Ultrasound Report Signed Patient: LUCILA JACQUES MR#: [id number] : 1990 Acct:[id number] Age/Sex: 34 / F ADM Date: Loc: [facility] [address]: Catrachito Aiken D.O. Ordering Physician: Catrachito Aiken D.O. Date of Service: 11/21/24 Procedure(s): US OB BPP w non-stress Accession Number(s): [id number] cc: Catrachito Aiken D.O.; Physician,Non-Staff Farhat The [place] [phone] Patient Name: LUCILA JACQUES MRN: [facility]:[id number] date: 1990 Sex: F Assigned Patient Location: [facility] Current Patient Location: Accession/Order Number: [id number] Exam Date: 11/21/2024 18:27 Report Date: 11/21/2024 [...] Ruddy Esquivel M.D.11/21/2024 6:32 PM Dictation Location: [place] [address] Electronically authenticated by: [id number] Y Date: 11/21/2024 18:32 Dictated By: Ruddy Esquivel M.D. Signed By: 11/21/241834 DD/ 31 TD/TT: Freelance Translator: [facility] GROWTHon 11-21-2024 [place] [address] Ultrasound Report Signed Patient: LUCILA JACQUES MR#: [id number] : 1990 Acct:[id number] Age/Sex: 34 / F ADM Date: Loc: [facility] [address]: Catrachito Aiken D.O. Ordering Physician: Catrachito Aiken D.O. Date of Service: 11/21/24 Procedure(s): US OB growth Accession Number(s): [id number] cc: Catrachito Aiken D.O.; Physician,Non-Staff Farhat The [place] [phone] Patient Name: LUCILA JACQUES MRN: [id number]:[id number] date: 1990 Sex: F Assigned Patient Location: [facility] Current Patient Location: Accession/Order Number: [id number] Exam Date: 11/21/2024 18:27 Report Date: 11/21/2024 [...] Ruddy Esquivel M.D.11/21/2024 6:32 PM Dictation Location: [place] [address] Electronically authenticated by: [id number] Y Date: 11/21/2024 18:32 Dictated By: Ruddy Esquivel M.D. Signed By: 11/21/241834 DD/ 31 TD/TT: Freelance Translator: [facility] Radiology, Radiologi MD kevin - 11/21/2024 [place] [address] Ultrasound Report Signed Patient: LUCILA JACQUES MR#: [id number] : 1990 Acct:[id number] Age/Sex: 34 / F ADM Date: Loc: [facility] 250-[address]: Catrachito Aiken D.O. Ordering Physician: Catrachito Aiken D.O. Date of Service: 11/21/24 Procedure(s): US OB growth Accession Number(s): [id number] cc: Catrachito Aiken D.O.; Physician,Non-Staff Farhat The [place] [address] Patient Name: LUCILA JACQUES MRN: [facility]:[id number] date: 1990 Sex: F Assigned Patient Location: [facility] Current Patient Location: Accession/Order Number: [id number] Exam Date: 11/21/2024 18:27 Report Date: 11/21/2024 [...] Ruddy Esquivel M.D.11/21/2024 6:32 PM Dictation Location: [place] [address] Electronically authenticated by: [id number] Y Date: 11/21/2024 18:32 Dictated By: Ruddy Esquivel M.D. Signed By: 11/21/241834 DD/ 31 TD/TT: Freelance Translator: [facility] Urinalysis macro (dipstick) panel (U)on 11-21-2024 Bilirubin, UA Positive Negative - 4(70) +++ mg/dL [facility] Comment on above: small Blood, UA Negative Negative - 50 Asif/mcL [facility] Clarity, UA Clear [facility] Color, UA Bibiana [facility] Glucose, UA Negative Negative - 1999(110) ++++ mg/dL [facility] Interpretation and review of laboratory results Abnormal [facility] Ketones, UA Positive Negative - 160(16) ++++ mg/dL [facility] Comment on above: trace Leukocytes, UA Negative Negative - 500+++ Shivani/mcL [facility] Nitrite, UA Negative Negative - Positive [facility] pH, UA 5.5 5 - [address] [facility] Protein, UA Positive Negative - 1999(20) ++++ mg/dL [facility] Comment on above: 30 Spec Grav, UA 1.03 1 - 1.[address] [facility] Urobilinogen, UA 1.0 0.2 - 12 mg/dL [facility] Coding Summaryon 11-11-2024 Coding Summary HTMLBase 64 BiiznmuqPOe9zZy+PGhlYWQ+PE1 MVJNaF76iqFKfgB7xW2EQCQmPSt rcOTSNICqMOpOagdFrWW5npEZlM XJu IC8+HW1mDKKpTbphfDTzl1B0qYI 7H11hcj2qVKrxePY5IHXkSgSryy nkc9qjxHk7YXjvUxpvKgPr CZYpyX70JCF5gK84Mr94uZWusUK pr8pufGo4PnJjKFDmCMY8kHkwFU vfb0UuCWNvK59xgDTqg4D0 UNPpgLbbbWAuDzXfkIB8oA6fUFe qzgmcz0wqymssHwp6yx16hUTnb8 G4xKY0R4DkeaB3WJTujJVa YbksdFMHeO4jhzxja5lcqyuiXkB aIMOgVFu9UAm7AMJxoPczByIuWP 89FDI5HDUjgwEnF3UxMJJx zIvpDcS2k1N0Sf8PD3VWNdutS0P NTUFSWTwvdGQ+GL12mm09D4MmJg epMuy8AKAdDJL2yCO7jE4o UVDbIDpka4K4bME9L9EquuKtth8 up5zgGOSlMEmyO00rpBWhu3M1LW ProSJ4NGFraXxhTmQeeA75 Oyc+BQQrrXjpq5AxSvnsr5ttr3x xxMf4NuzkLAHpgvJbiPisSTH1h5 MnWj0xBRGmvXG2bZL4zO4n MoLpPtY0NCvqJ595RrBmcSUaIxu sT34dY8IygTA+PDZkMje5DRTmaJ hoGP7kR6JoZNNsimhguFZy dXjoJR6yYXSthjqtRSQfnT5oYFG fC3i2HbTiNoM5CEjmE7KrTFRmfc rrSb13rF6tJxVfCvQ9OEbn P2PpcfG3TIRpsDKjRUgwRTU4Y38 bi3H9LCOxQJMnSJK7gNU9wN6jeZ lnbjogbGVmdDsgdmVydGlj FLsxWWsoK991ESGboUpsEwXwITz uZyBEYXRlOiAgMDIvMTcvMjAyNT wvdGQ+ZIOiHVR0cQjhLIAq uFRsENvjPr3dkIqvvXxxLE5oUCZ bhdnxLLOozQ9yNPTqsFNaaGnhEI 8hPVEmxhycx758TlHqCRJ3 VEZfhFKeV3BlbQ9qFiVqZMLbOHI gU9MbyCTgQQoaY251UNinWgM7DU EahcGzQ6SdOBPutOziFpE3 t7R2Ym8Cf6NtnewfW4OemCQeDwL oNljyBIb4X2ZyBoezfJP+PC90YW KcBQ06HXk7BPU7pAscIMnf XSUfL7FmdJ2zLiQpVKItINElXfi +PHRhYmxlIHdpZHRoPScxMDAlJy DvcDklFY2sGd3bQRNvZUOb aBteqHDfLcZzk0isEGRzQQefXG0 tiDhaM9KmvFW3AVQxy9y6Fk36I3 3bO1VvdQF+GGJieCW9dJO1 jH4xZlTiPeU6LAphB613NdMoxHK pPtzkp2ott8mvdZc6OqX9LPQcix CurSdeCZK8g8KjLi36Z34y IHdpZHRoPSIxNSUiIHZhbGlnbj0 iwE3uNz9+GTJdxIS9eMC4fC3qRe ScFaW1SYmwE834FzFquJLt Cbiix4dzc3oojEg7IyMvVIPdhbO gxRvbLZD7l5DoZg04P9OtqDrns7 WzChx7zk76gPYwa9U0qNJ2 Y6HmCGFixzjpnVMkrZsvQC9eYGX huhelPIKflT2cNWDdY1i9CcMaYw U5MUakH8LcasR0IOYgqBKp MDCslJIBsJ3xozgum7yqeaseEvE nDMNgRKn6KZr0PRHviYhqNdDgHW O7RrL8PNA3xXMnyJ8qmVeq tixtmX9dHyn+PAW3yPZdeGNUAP7 lOjwvdGQ+OQXsQPP5kNpyDGbmTO LliN6tAGGnW2z2XcSoAjF9 FNyiK5QbykM6IUKkhYCiFPAzhFI DoS9vynoew9upzvdaRnKjYIQpSG k1JPh4JFKzlCukZwEvFNM4 QeI1JIO7jCGaxP4wfKheoroooF8 wOyc+FlobvZgiSLJ9VFs4R8EwYj o0YNOqgNctEU4gpGOwFIfz Dq3vnMlfpZmrIQ2gDTJlokccq99 1EzHeg1zdTYYdlLLgGInuTRC8U9 8qr2P4TPXoVFUnVKR0eMR5 mI1lyXyeleounIViyZgmtuXxcIu yJGzmSJyrY881EBOwrUyhEnOwAD t6W4FlZqv6FETtyPsoYO2a yGKvPVheDc3cbYobpExsYR6uVTM vqbgke795VbTst2jyLQHsxTEhKT gmUAI5N42ny0B5RWUoIVZs MRX7sMW9pI9atDowdeuaaDVenKi stiVpmIkxJXugQNojJ649ZJQseJ alQgEdoTx0K8GdApy6CXQh tFfbJO5toGPaRSvvCp3ojHzmeLs hFH8bFRNtphdzo960LkNmo7zqSA RdeMRvHRcnFPQ6B89gv2K1 DXGwXIRyBWN0nHZ5hM1dfNqstpa gbGVmdDsgdmVydGljYWwtYWxpZ2 46IHRvcDsnPlBhdGllbnQg GZbbDYn9O8BlUnqnaAN+DP56OQI eRY58rGPbzOIqe7geiHg7FgStDQ FeQES2pKezZMwfb2BaTYUs Y88niGXiy7J9FHChiJzprUXnHvA lfAB1lY6rCLqeyprkw0azxnjtPe btu8btqx64oF71M86fSMkj BPLpQSQjXYLrQROcyDhfqb9cbE6 wIi8+FPKzcOM5cWJ5dF2wBKDaHx H8UUpbC063WuNqsQXsOxhn v0fds7whbGf1EmM8OECgkhLymPs kITA2m6YjUx07M44tBHwhSVUlJD GqBSCsOTMuaPtypc7rgI0w Ii8+LRDmuTJ1tWH8cU3nMxVzQkK 9YOqrE353RgJgcHYrGgdkG67uN7 JvdXA+RXNsCrh0KKHabWni IU9loNEcMXdnZm3zXQP2IsLgLbQ wCWwpE8LmKFKbajytxzkqxAV8AA UoYXRvmC27Ro6hhEqlQIKi nLOHuF2dozwdp6yhjqvoEmHsCCA xKRc9ESt7UAVgwEmdSqOuVKW6Tk V8MPP4bTYygC2ldUboomza vJ5qA2UkREZnaycqHh17xD6nQeD eWbN1ZOikKyf+JsWQNpidC8XXNR zWKhSMFEH4V5ByYaf6DMSm oDqoLT2ftDTqQNmzVy8hwWfnoGn eIY6eBVPrtkgrUIPjjP1lDQJtjD FvrToxOE5vXPHavjcxh430 FjCoRRO6ZTTslPQrY1FmpH2kInQ mZPLjUZTlP8SvoNWkQPoaG702EV jmNqV8MFBomdBiS6GgDVTa sAezTaW0s5G4Hy9hZS7wFb2dTXz 8HZ68FS17nCSnn2Y9cHB0I0RnFI SleuukdduupBH2KSUxPYWs mR50eAObEUzrIc7wg3K4y782JBI iQJNtyU56Zp3cnPjuKXMhdFZYfM 3gmjxmf4wtxwwrTvKhLEWm WLj2KWv1MVIarMzfGsBfWMK3VuO 9MOZ6eSAtwZ8cyMtvcmfdrI4xZt c+ReVqMNEekoZ3D9PuJtl5 PZCuaMjiYP1gzGXlSTmnZv8xtSq rjOcoZW7gCIWrqtmrVVJaiU9sMZ QtoSNqiFasYN8pYIIqhizs h882ObKcPOU1UCJczDVjD7VrrC8 jQxXxAFFgXEGcA9OlkVNcTEsyI1 85EJteCyS0GGWpobOxS4Dx MFGgpSmkGwZ3r2R3Xg5NPD5GEQN 7W7QuGci1SCOvxYnlSQ2zyYGuHN cxEb3tmKuyaKmhDU9iFHXv zgviTBDylT1xAAAwuLVsxQvyOZ6 kUZNyuwatu655VvVwYRH2FBEyeG FwN0VdkZ4rFdAbOYInBAPh B6XrdIUmJClfM891WUxyWmV8KON tniRmY5WuJBBhrGfkPaN1h1Y3Im 5PUDwvdGQ+RJ22wi69T5Fd HjnbIsy4HKQvCCN8bBC4rJ7vHQA jWNvpz4M4fDC3Z9JjwnUyis4nu0 tqAVIvLAicW84efCGkw0E9 SVFyrLH1ASYxvUjpRlOkjK12Ksq +GQEiaVwgn5LtEgppo6lgr7zoxB t5EaQhOMIrhoLvhLijGLB1 e0WqZi30Q34uKFxkPVOwETAkFOE qEZExqOnrif1dlI2dDl9+PGNvbC C3aBH2lN0wVkHsCsW5IDmo Q255FrEdfKBeLiofb8heb9qizQt 3VfRaFBGjblVwgTntQCY3l3ChRm 08Q4WbaKgus4ZnQdk3yb84 qGHgj6E2iMK5P2NtQIOrncwspZN ubHvcLF3mEYMouazpUMIaqM2cUJ TtS2u9TyDlCvO6FSwfO0Jv nuI3TQCnrHEjNRKfbXGZzZ4nrzq bo0gupwprHoSqJOYnIKh4TFd1PA KzpAbxVzBoWOC2KjR3TVW0 lWPjtS3uyRzftgjfyU6kHpt+UGh 6t3hyyPSsMB1ecDQ1AI97HJ66vO Ceu2L5pFV3O8GtDRYqpfsd ypybpDL3IYKjFXVyiB40Up3irDg xLw2lGILxGPM2EVXlsXGoI1XpmN 6pArMpMLOqTLIwX8BwaFOj FTvnF963VIieYeB8XLMsiqJhT4D qPHEpqTcsTsC0m7A8Gx4YNT19LR 75VO36qNIxm5X8cSL2Z4Cc FXBjtbmxopdzdKK6URGjPYJxhX9 3Qt7ovOzgAl0vPRRuCFE7SXRtwK WhY5UtdN1dKmScGIMmCWCl J1UamOSiODstJ947QDvrDwV7IEW uxnKcM3YoEOFrdXedJtE1z3K6Sh 5ECx74AQ35CN33jQTal8W4 pXU8C4BpDVPxayvkpojhhEZ2GXI bCPDkgA19Zt1hyZzlSi6pLLFmNP F7JRCozLXcT0YmuN6wZgBc MWQoCUNmZ5WuhOTwJLmcE883QLh oVfP1TUMxnwNtC8OoFTLwoYqmVd W1k0K1Gm7OBThihov6C6Gw PjwvdHI+QJ76QWWoQL60uUFknYM fp2juzLs2QeTxRFDvYRS3tIulOL diu6MlKVWqY04flAEhv4Y8 IGN (more content not included)... Normal [facility] Urinalysis macro (dipstick) panel (U)on 11-07-2024 Bilirubin, UA Positive Negative - 4(70) +++ mg/dL [facility] Comment on above: small Blood, UA Negative Negative - 50 Asif/mcL [facility] Clarity, UA Clear [facility] Color, UA Yellow [facility] Glucose, UA Negative Negative - 1999(110) ++++ mg/dL [facility] Interpretation and review of laboratory results Abnormal [facility] Ketones, UA Positive Negative - 160(16) ++++ mg/dL [facility] Comment on above: 40mg/dL Leukocytes, UA Negative Negative - 500+++ Shivani/mcL [facility] Nitrite, UA Negative Negative - Positive [facility] pH, UA 6 5 - [address] [facility] Protein, UA Positive Negative - 1999(20) ++++ mg/dL [facility] Comment on above: 30mg/dL Spec Grav, UA 1.025 1 - 1.[address] [facility] Urobilinogen, UA 1.0 0.2 - 12 mg/dL [facility] ALL CBC WITH AUTO DIFFon BASOPHILS ABSOLUTE AUTO [address] [facility] Basophils/100 WBC (Bld) 0.3 % 0.2 - 2.0 % [facility] Eosinophils/100 WBC (Bld) 1.6 % 0.9 - 7.0 % [facility] Erythrocyte distribution width (RBC) [Ratio] 12.8 % 11.0 - 15.0 % [facility] Hematocrit (Bld) [Volume fraction] 33.8 % Low 36.0 - 48.0 % [facility] Hemoglobin (Bld) [Mass/Vol] 11.4 g/dL Low 12.0 - 16.0 g/dL [facility] IMMATURE GRANULOCYTES ABS AUTO 0.[address] [facility] Immature granulocytes/100 WBC (Bld) 0.5 % 0.0 - 0.5 % [facility] Interpretation and review of laboratory results Abnormal [facility] LYMPHOCYTES ABSOLUTE AUTO 1.[address] [facility] Lymphocytes/100 WBC (Bld) 18.6 % Low 20.5 - 60.0 % [facility] MCH (RBC) [Entitic mass] 29.8 pg 26.7 - 34.[address] [facility] MCHC (RBC) [Mass/Vol] 33.7 g/dL 29.9 - 35.2 g/dL [facility] MCV (RBC) [Entitic vol] 88.5 fL 81.0 - 99.[address] [facility] MONOCYTES ABSOLUTE AUTO 0.[address] [facility] Monocytes/100 WBC (Bld) 8.6 % 1.7 - 12.0 % [facility] NEUTROPHILS ABSOLUTE AUTO 7.[address] [facility] Neutrophils/100 WBC (Bld) 70.4 % 43.0 - 75.0 % [facility] Platelet mean volume (Bld) [Entitic vol] 8.9 fL Low 9.5 - 13.[address] [facility] TBH EO # 0.[address] [facility] TB PLT [address] [facility] TB RBC 3.[address] [facility] TB WBC 10.[address] [facility] Urinalysis macro (dipstick) panel (U)on 10-01-2024 Bilirubin, UA Negative Negative - 4(70) +++ mg/dL [facility] Blood, UA Negative Negative - 50 Asif/mcL [facility] Clarity, UA Clear [facility] Color, UA Yellow [facility] Glucose, UA Negative Negative - 1999(110) ++++ mg/dL [facility] Interpretation and review of laboratory results Abnormal [facility] Ketones, UA Positive Negative - 160(16) ++++ mg/dL [facility] Leukocytes, UA Negative Negative - 500+++ Shivani/mcL [facility] Nitrite, UA Negative Negative - Positive [facility] pH, UA 6.5 5 - [address] [facility] Protein, UA Negative Negative - 1999(20) ++++ mg/dL [facility] Spec Grav, UA 1.025 1 - 1.[address] [facility] Urobilinogen, UA 1.0 0.2 - 12 mg/dL [facility] AFP, SERUM, OPEN SPINA BIFID Aon 08-14-2024 AFP MOM 1.[address] [facility] AFP VALUE 43.5 ng/mL . [facility] COMMENT: Comment . [facility] Comment on above: Irena Jones , Ph.D., [facility] Director References: Available Upon Request. Multiples Of Median Cutoffs For AFP Elevations Vela 2.5 Black 2.8 IDD 2.0 Twins 4.5 Abbreviation Definitions IDD - Insulin Dep Diabetes OSBR - Open Spina Bifida Risk For further inquiries contact [email or web address] at [phone]. This test was developed and its performance characteristics determined by [employer]. It has not been cleared or approved by the Food and Drug Administration. Performed at: [facility] [address], [place] [id number] Science Education Professor: [facility], located within [facility], Phone: [phone] GEST. AGE ON COLLECTION DATE 18.1 . [address] [facility] GESTAT. AGE BASED ON Ultrasound . [facility] Comment on above: 18.1 on 08/12/2024 Recalculations are not recommended when gestational dating by LMP and ultrasound are within 10 days. INSULIN DEP DIABETES No . [facility] INTERPRETATION Comment . [facility] Comment on above: Interpretation: Scre en Negative [...] Customer Services to discuss available options. The [employer] recommends amniocentesis be offered to women age 35 and older. MATERNAL [age] . [address] [facility] MULTIPLE GESTATION No . [facility] OSBR RISK 1 IN [address] . [facility] RACE . [facility] RESULTS Report . [facility] TEST RESULTS: Negative . [facility] WEIGHT 239 . lbs [facility] N N ULTRASOUND [id number] 1 18 N 1 Y 239 N N N N N White/ [facility] Urinalysis macro (dipstick) panel (U)on 08-12-2024 Bilirubin, UA Negative Negative - 4(70) +++ mg/dL [facility] Blood, UA Negative Negative - 50 Asif/mcL [facility] Clarity, UA Clear [facility] Color, UA Yellow [facility] Glucose, UA Negative Negative - 2000(110) ++++ mg/dL [facility] Interpretation and review of laboratory results Abnormal [facility] Ketones, UA Positive Negative - 160(16) ++++ mg/dL [facility] Comment on above: trace Leukocytes, UA Negative Negative - 500+++ Shivani/mcL [facility] Nitrite, UA Negative Negative - Positive [facility] pH, UA 6 5 - [address] [facility] Protein, UA Negative Negative - 2000(20) ++++ mg/dL [facility] Spec Grav, UA 1.015 1 - 1.[address] [facility] Urobilinogen, UA 0.2 0.2 - 12 mg/dL [facility] Urinalysis macro (dipstick) panel (U)on 07-16-2024 Bilirubin, UA Negative Negative - 4(70) +++ mg/dL [facility] Blood, UA Negative Negative - 50 Asif/mcL [facility] Clarity, UA Clear [facility] Color, UA Yellow [facility] Glucose, UA Negative Negative - 2000(110) ++++ mg/dL [facility] Interpretation and review of laboratory results Normal [facility] Ketones, UA Negative Negative - 160(16) ++++ mg/dL [facility] Leukocytes, UA Negative Negative - 500+++ Shivani/mcL [facility] Nitrite, UA Negative Negative - Positive [facility] pH, UA 5.5 5 - [address] [facility] Protein, UA Negative Negative - 2000(20) ++++ mg/dL [facility] Spec Grav, UA 1.03 1 - 1.[address] [facility] Urobilinogen, UA 0.2 0.2 - 12 mg/dL [facility] BLOOD UREA NITROGENon 2023 Urea nitrogen [Mass/Vol] 9 mg/dL Normal 5-23 [facility] Comment on above: Performed By: #### Joao CARABALLO, 3094-0, CATERING AND EVENTS MANAGER, LIVR, 5193-8 #### [facility] ([id number]) [address], [address] [place] [address] CBC AND AUTO DIFFon 07-10-20 ABSOLUTE BASOPHIL 0.0 X10E9/L Normal 0.0-0.2 [facility] Comment on above: Performed By: #### Joao CARABALLO, 3094-0, CATERING AND EVENTS MANAGER, LIVR, 5193-8 #### [facility] ([id number]) [address], [address] [place] [address] ABSOLUTE NEUTROPHIL 5.1 X10E9/L Normal 1.5-6.6 [facility] Comment on above: Performed By: #### Joao CARABALLO, 3094-0, CATERING AND EVENTS MANAGER, LIVR, 5193-8 #### [facility] ([id number]) [address], [address] [place] [address] Basophils/100 WBC (Bld) 0.6 % Normal [facility] Comment on above: Performed By: #### Joao BCA, 3094-0, CATERING AND EVENTS MANAGER, LIVR, 5193-8 #### [facility] ([id number]) [address], [address] [place] [address] Eosinophils (Bld) [#/Vol] 0.1 10*3/uL Normal 0.0-0.4 [facility] Comment on above: Performed By: #### C BCA, 3094-0, CATERING AND EVENTS MANAGER, LIVR, 5193-8 #### [facility] ([id number]) [address] [place] [address] Eosinophils/100 WBC (Bld) 1.6 % Normal [facility] Comment on above: Performed By: #### C BCA, 3094-0, CATERING AND EVENTS MANAGER, LIVR, 519-8 #### [facility] ([id number]) [address] [address] [place] [address] Erythrocyte distribution width (RBC) [Ratio] 13.1 % Normal 11.5-15.0 [facility] Comment on above: Performed By: #### C BCA, 3094-0, CATERING AND EVENTS MANAGER, LIVR, 519-8 #### [facility] ([id number]) [address] [address] [place] [address] Hematocrit (Bld) [Volume fraction] 39.1 % Normal 35-47 [facility] Comment on above: Performed By: #### C BCA, 3094-0, CATERING AND EVENTS MANAGER, LIVR, 519-8 #### [facility] ([id number]) [address] [address] [place] [address] Hemoglobin (Bld) [Mass/Vol] 13.4 g/dL Normal 11.7-15.5 [facility] Comment on above: Performed By: #### C BCA, 3094-0, CATERING AND EVENTS MANAGER, LIVR, 5193-8 #### [facility] ([id number]) [address] [place] [address] Lymphocytes (Bld) [#/Vol] 1.3 10*3/uL Normal 1.0-3.5 [facility] Comment on above: Performed By: #### C BCA, 3094-0, CATERING AND EVENTS MANAGER, LIVR, 5193-8 #### [facility] ([id number]) [address], [address] [place] [address] Lymphocytes/100 WBC (Bld) 19.0 % Normal [facility] Comment on above: Performed By: #### C BCA, 3094-0, CATERING AND EVENTS MANAGER, LIVR, 8 #### [facility] ([id number]) [address], [address] [place] [address] MCH (RBC) [Entitic mass] 30.6 pg Normal 27-34 [facility] Comment on above: Performed By: #### C BCA, 3094-0, CATERING AND EVENTS MANAGER, LIVR, 8 #### [facility] ([id number]) [address], [address] [place] [address] MCHC (RBC) [Mass/Vol] 34.3 g/dL Normal 32-36 [facility] Comment on above: Performed By: #### Joao BCA, 3094-0, CATERING AND EVENTS MANAGER, LIVR, 8 #### [facility] ([id number]) [address], [address] [place] [address] MCV (RBC) [Entitic vol] 89 fL Normal 80-100 [facility] Comment on above: Performed By: #### Joao BCA, 3094-0, CATERING AND EVENTS MANAGER, LIVR, 8 #### [facility] ([id number]) [address], [address] [place] [address] Monocytes (Bld) [#/Vol] 0.5 10*3/uL Normal 0-0.9 [facility] Comment on above: Performed By: #### Joao BCA, 3094-0, CATERING AND EVENTS MANAGER, LIVR, 519-8 #### [facility] ([id number]) [address], [address] [place] [address] Monocytes/100 WBC (Bld) 6.7 % Normal [facility] Comment on above: Performed By: #### Joao BCA, 3094-0, CATERING AND EVENTS MANAGER, LIVR, 5192-8 #### [facility] ([id number]) [address], [address] [place] [address] Neutrophils/100 WBC (Bld) 72.1 % Normal [facility] Comment on above: Performed By: #### C BCA, 3094-0, CATERING AND EVENTS MANAGER, LIVR, 5193-8 #### [facility] ([id number]) [address], [address] [place] [address] Platelet mean volume (Bld) [Entitic vol] 7.9 fL Normal 7-12 [facility] Comment on above: Performed By: #### C BCA, 3094-0, CATERING AND EVENTS MANAGER, LIVR, 5193-8 #### [facility] ([id number]) [address], [address] [place] [address] Platelets (Bld) [#/Vol] 232 10*3/uL Normal 150-450 [facility] Comment on above: Performed By: #### C BCA, 3094-0, CATERING AND EVENTS MANAGER, LIVR, 5193-8 #### [facility] ([id number]) [address], [address] [place] [address] RBC COUNT 4.37 X10E12/L Normal 3.80-5.20 [facility] Comment on above: Performed By: #### C BCA, 3094-0, CATERING AND EVENTS MANAGER, LIVR, 5193-8 #### [facility] ([id number]) [address], [address] [place] [address] WBC (Bld) [#/Vol] 7.0 10*3/uL Normal 4.0-11.0 [facility] Comment on above: Performed By: #### C BCA, 3094-0, CATERING AND EVENTS MANAGER, LIVR, 5193-8 #### [facility] ([id number]) [address], [address] [place] [address] CREATININEon 07-10-2024 Creatinine [Mass/Vol] 0.54 mg/dL Normal 0.40-1.00 [facility] Comment on above: Result Comment: METH OD TRACEABLE TO IDMS STANDARD Performed By: #### C BCA, 3094-0, CATERING AND EVENTS MANAGER, LIVR, 5193-8 #### [facility] ([id number]) [address], [address] [address] eGFR (CKD-EPI) NON-RACE DEPENDENT >90 Normal >59 [facility] Comment on above: Result Comment: Reported eGFR is based on the CKD-EPI 2020 equation that does not use a race coefficient. Performed By: #### C BCA, 3094-0, CATERING AND EVENTS MANAGER, LIVR, 5193-8 #### [facility] ([id number]) [address], [address] [address] HBV surface Ab IA Qnon 07-10 Anti HBs quant. <8.00 Normal [facility] Comment on above: Result Comment: Vacc inated: >=12mIU/mL, Positive (Immune) Unvaccinated: <8mIU/mL, Negative (Not Immune) 8-11.99 mIU/mL: Indeterminate, (Considered Not Immune) Performed By: #### C BCA, 3094-0, CATERING AND EVENTS MANAGER, LIVR, 5193-8 #### [facility] ([id number]) [address] [address] LIVER PANELon 07-10-2024 Albumin [Mass/Vol] 3.8 g/dL Normal 3.2-5.3 [facility] Comment on above: Performed By: #### C BCA, 3094-0, CATERING AND EVENTS MANAGER, LIVR, 5193-8 #### [facility] ([id number]) [address] [address] ALP [Catalytic activity/Vol] 44 U/L Normal 39-130 [facility] Comment on above: Performed By: #### C BCA, 3094-0, CATERING AND EVENTS MANAGER, LIVR, 5193-8 #### [facility] ([id number]) [address], [address] [place] [address] ALT [Catalytic activity/Vol] 11 U/L Normal 0-31 [facility] Comment on above: Performed By: #### C BCA, 3094-0, CATERING AND EVENTS MANAGER, LIVR, 5193-8 #### [facility] ([id number]) [address], [address] [place] [address] AST [Catalytic activity/Vol] 16 U/L Normal 0-41 [facility] Comment on above: Performed By: #### C BCA, 3094-0, CATERING AND EVENTS MANAGER, LIVR, 5193-8 #### [facility] ([id number]) [address], [facility] [address] [place] [address] Bilirubin [Mass/Vol] 0.5 mg/dL Normal 0.3-1.2 [facility] Comment on above: Performed By: #### C BCA, 3094-0, CATERING AND EVENTS MANAGER, LIVR, 5193-8 #### [facility] ([id number]) [address], [address] [place] [address] Bilirubin.direct [Mass/Vol] 0.1 mg/dL Normal 0.0-0.4 [facility] Comment on above: Performed By: #### C BCA, 3094-0, CATERING AND EVENTS MANAGER, LIVR, 5193-8 #### [facility] ([id number]) [address], [facility] [address] [place] [address] Protein [Mass/Vol] 6.5 g/dL Normal 6.0-8.0 [facility] Comment on above: Performed By: #### C BCA, 3094-0, CATERING AND EVENTS MANAGER, LIVR, 5193-8 #### [facility] ([id number]) [address], [facility] [address] [place] [address] Unlisted Lab TestOrdered By: Jaci Atwood on 06-26-2024 [facility] TOTAL PROTEIN 24 HOUR UR INEon 06-21-2024 Protein (U) [Mass/Vol] 11.3 mg/dL NINF - 11.9 mg/dL [facility] TOTAL PROTEIN 24 HOUR [facility] 101.7 [facility] TOTAL VOLUME 24 HOUR URINE 900 mL/24hr [facility] Urinalysis macro (dipstick) panel (U)on 06-19-2024 Bilirubin, UA Negative Negative - 4(70) +++ mg/dL [facility] Blood, UA Negative Negative - 50 Asif/mcL [facility] Clarity, UA Clear [facility] Color, UA Yellow [facility] Glucose, UA Negative Negative - 1999(110) ++++ mg/dL [facility] Interpretation and review of laboratory results Normal [facility] Ketones, UA Negative Negative - 160(16) ++++ mg/dL [facility] Leukocytes, UA Negative Negative - 500+++ Shivani/mcL [facility] Nitrite, UA Negative Negative - Positive [facility] pH, UA 5.5 5 - [address] [facility] Protein, UA Negative Negative - 1999(20) ++++ mg/dL [facility] Spec Grav, UA 1.020 1 - 1.[address] [facility] Urobilinogen, UA 1.0 0.2 - 12 mg/dL [facility] ALL CBC WITH AUTO DIFFon BASOPHILS ABSOLUTE AUTO 0.[address] [facility] Basophils/100 WBC (Bld) 0.4 % 0.2 - 2.0 % [facility] Eosinophils/100 WBC (Bld) 1.3 % 0.9 - 7.0 % [facility] Erythrocyte distribution width (RBC) [Ratio] 12.5 % 11.0 - 15.0 % [facility] Hematocrit (Bld) [Volume fraction] 36.9 % 36.0 - 48.0 % [facility] Hemoglobin (Bld) [Mass/Vol] 12.4 g/dL 12.0 - 16.0 g/dL [facility] IMMATURE GRANULOCYTES ABS AUTO 0.[address] [facility] Immature granulocytes/100 WBC (Bld) 0.3 % 0.0 - 0.5 % [facility] Interpretation and review of laboratory results Abnormal [facility] LYMPHOCYTES ABSOLUTE AUTO 1.[address] [facility] Lymphocytes/100 WBC (Bld) 17.0 % Low 20.5 - 60.0 % [facility] MCH (RBC) [Entitic mass] 29.9 pg 26.7 - 34.[address] [facility] MCHC (RBC) [Mass/Vol] 33.6 g/dL 29.9 - 35.2 g/dL [facility] MCV (RBC) [Entitic vol] 88.9 fL 81.0 - 99.[address] [facility] MONOCYTES ABSOLUTE AUTO 0.[address] [facility] Monocytes/100 WBC (Bld) 6.0 % 1.7 - 12.0 % [facility] NEUTROPHILS ABSOLUTE AUTO 5.[address] [facility] Neutrophils/100 WBC (Bld) 75.0 % 43.0 - 75.0 % [facility] Platelet mean volume (Bld) [Entitic vol] 10.0 fL 9.5 - 13.[address] [facility] TBH EO # 0.[address] [facility] TBH PLT [address] [facility] TB[facility] RBC 4.[address] [facility] TBH WBC 7.[address] [facility] XR knee LT 3V - NOT FOR ER U Yuridia 06-11-2024 XR knee LT 3V - NOT FOR ER USE [facility] [address] [place] [address] XRay Report Signed Patient: Lucila Jacques MR#: [id number] [birth year] : 1990 Acct:[id number] Age/Sex: 33 / F ADM Date: 06/11/24 Loc: [facility] Room: Type: [facility] Attending Dr: Santa Estrada II, MD [...] Vikki Rivers M.D.06/11/2024 2:26 PM Dictation Location: [place] [address] Transcribed By: [facility] 06/11/24 142 Dictated By: Vikki Rivers MD 06/11/241421 Signed By: 06/11/24 142 Normal [facility] HCG ( test) [...] on 04-29-2024 Amphetamines Ql (U) Negative Negative [facility] Barbiturates [Presence] in U rine by Screen methodOrdered By: Yusef Curran on 04-29-2024 Barbiturates Screen Ql (U) Negative Negative [facility] Benzodiazepines Screen Ql (U )Ordered By: Yusef Curran on 04-29-2024 Benzodiazepines Ql (U) Negative Negative [facility] Benzoylecgonine [Presence] i n Urine by Screen methodOrdered By: Yusef Curran on 04-29-2024 Benzoylecgonine Screen Ql (U) Negative Negative [facility] Cannabinoids [Presence] in U rine by Screen methodOrdered By: Yusef Curran on 04-29-2024 Cannabinoids Screen Ql (U) Negative Negative [facility] Comment on above: These are unconfirme d results and should not be used for legal purposes. Drug Cut-Off Concentration: AMPH 1000 ng/mL SILVIA 200 ng/mL DARLYN 200 ng/mL COCM 300 ng/mL OP 300 ng/mL PCP 25 ng/mL THC 20 ng/mL Drug Screen,Urineon 04-29-20 24 Amphetamine Screen,Urine Negative Normal Negative [facility] Comment on above: Performed By: #### A 1C WTH eA, ALB, [id number], HGB #### [place] [address] [place] #### NICOTINE #### [facility] , Barbiturate Screen,Urine Negative Normal Negative [facility] Comment on above: Performed By: #### A 1C WTH eA, ALB, [id number], HGB #### [place] [address] [place] #### NICOTINE #### [facility] , Benzodiazepines Screen,Urine Negative Normal Negative [facility] Comment on above: Performed By: #### A 1C WTH eA, ALB, [id number], HGB #### [place] [address] [place] #### NICOTINE #### [facility] , Cannabinoid Screen,Urine Negative Normal Negative [facility] Comment on above: Result Comment: Thes e are unconfirmed results and should not be used for legal purposes. Drug Cut-Off Concentration: AMPH 1000 ng/mL SILVIA 200 ng/mL DARLYN 200 ng/mL COCM 300 ng/mL OP 300 ng/mL PCP 25 ng/mL THC 20 ng/mL PERFORMED BY: [place] [address] PATHOLOGIST RADIOTELEGRAPHIST GENO BENEDICT M.D. Performed By: #### A 1C WTH eA, ALB, [id number], HGB #### [address] #### NICOTINE #### [facility] , Cocaine Screen,Urine Negative Normal Negative [facility] Comment on above: Performed By: #### A 1C WTH eA, ALB, [id number], HGB #### [place] [address] [place] #### NICOTINE #### [facility] , Opiate Screen,Urine Negative Normal Negative [facility] Comment on above: Performed By: #### A 1C WTH eA, ALB, [id number], HGB #### [address] #### NICOTINE #### [facility] , Phencyclidine Screen,Urine Negative Normal Negative [facility] Comment on above: Performed By: #### A 1C WTH eA, ALB, [id number], HGB #### [address] #### NICOTINE #### [facility] , HCG ( test) IA.rapi d Ql (U)Ordered By: Yusef Curran on 04-29-2024 HCG ( test) Ql (U) Negative [facility] HCG,Urineon 04-29-2024 Beta HCG ( test) Ql (U) Negative Normal [facility] Comment on above: Result Comment: PERF ORMED BY: [place] [address] PATHOLOGIST RADIOTELEGRAPHIST GENO BENEDICT M.D. Performed By: #### U HCG #### [address] [place] 04-29-2024 L Specimen: [id number] Received: 04/29/24 Status: SOUT Req Num: [id number] Spec Type: Surgical Subm Dr: Santa Estrada MD Tissues: A Joint/Knee (LT KNEE) Procedures: HE, Gross/Micro L4, Decalcification Age/ Patient Sex Location Account Attending Physician Lucila Jacques R 33/F ID [id number] Santa Estrada MD SPEC NUM: [id number] RECD: 04/29/24 STATUS: MICHAEL YOUNG NUM: [id number] NIELS: 04/29/24- SUBM DR: Santa Estrada MD ENTERED: 04/29/[address] [facility] [address]: SPEC TYPE: Surgical DEPT: S [...] examination, no sections are submitted. CPT Codes 23125 Specimen: [id number] Received: 04/29/24 Status: ANUPAMABrunilda Young Num: [id number] Spec Type: Surgical Subm Dr: Santa Estrada MD Tissues: A Joint/Knee (LT KNEE) Procedures: HE, Gross/Micro L4, Decalcification Patient: Lucila Jacques [id number] (Continued) Specimen: [id number] Received: 04/29/24 (Continued) Signed (signature on file) ChinNessa Trevizo MD 05/07/24 1703 Specimen: [id number] Received: 04/29/24 Status: MICHAEL Young Num: [id number] Spec Type: Surgical Subm Dr: Santa Estrada MD Tissues: A Joint/Knee (LT KNEE) Procedures: VIKASH Gross/Nithya L4, Decalcification Patient: Lucila Jacques [id number] (Continued) Specimen: [id number] Received: 04/29/24 (Continued) BONE AND TISSUE Specimen: [id number] Received: 04/29/24 Status: MICHAEL Young Num: [id number] Spec Type: Surgical Subm Dr: Santa Estrada MD Tissues: A Joint/Knee (LT KNEE) Procedures: VIKASH Gross/Nithya L4, Decalcification Patient: Lucila Jacques [id number] (Continued) Signed (signature on file) Jamia Trevizo MD 05/07/24 1703 Normal [facility] Opiates [Presence] in Urine by Screen methodOrdered By: Yusef Curran on 04-29-2024 Opiates Screen Ql (U) Negative Negative [facility] Phencyclidine Screen Ql (U)O rdered By: Yusef Curran on 04-29-2024 Phencyclidine Ql (U) Negative Negative [facility] XR knee LT 2Von 04-29-2024 XR knee LT 2V [facility] [place] [address] XRay Report Signed Patient: Lucila Jacques MR#: [id number] [birth year] : 1990 Acct:[id number] Age/Sex: 33 / F ADM Date: 04/29/24 Loc: ID Room: Type: [facility] Attending Dr: Santa Estrada II, MD [...] Harmeet Lopez M.D.04/29/2024 2:44 PM Dictation Location: [place] [address] Transcribed By: [facility] 04/29/24 1444 Dictated By: Harmeet Lopez DO 04/29/24 144 Signed By: 04/29/24 144 Normal [facility] XR tibia fibula LT 2V*on XR tibia fibula LT 2V* [facility] [address] [address] XRay Report Signed Patient: Lucila Jacques MR#: [id number] 33 : 1990 Acct:[id number] Age/Sex: 33 / F ADM Date: 04/19/24 Loc: [facility] Room: Type: [facility] Attending Dr: Santa Estrada II, MD Copies to: Santa Estrada MD Ordering Provider: Santa Estrada MD Date of Service: 04/19/24 XR/XR tibia fibula LT 2V*: M17.12 - Unilateral primary osteoarthritis, left knee ([id number]) XR/XR femur LT 2V*: M17.12 - Unilateral [...] Harmeet Lopez M.D.04/19/2024 9:52 AM Dictation Location: [place] [address] Transcribed By: [facility] 04/19/24 0952 Dictated By: Harmeet Lopez DO 04/19/24 0950 Signed By: 04/19/24 0952 Normal [facility] Cytology Cervical or vaginal smear or scraping studyon 04-16-[address] [facility] Automated basophil %Ordered By: Santa Estrada on 04-15-2024 Basophils/100 WBC (Bld) 0.7 % . [facility] Comment on above: Performed By: #### B MP, CBC #### [place] [address] [place] #### NICOTINE, FRUC #### [facility] , Automated basophil countOrde red By: Santa Estrada on 04-15-2024 Basophils (Bld) [#/Vol] 0.0 10*3/uL 0.0-0.2 [facility] Comment on above: Result Comment: PERF ORMED BY: [place] [address] PATHOLOGIST RADIOTELEGRAPHIST GENO BENEDICT M.D. Performed By: #### B MP, CBC #### [place] [address] [place] #### NICOTINE, FRUC #### [facility] , Automated blood monocyte cou ntOrdered By: Santa Estrada on 04-15-2024 Monocytes (Bld) [#/Vol] 0.3 10*3/uL 0.0-0.8 [facility] Comment on above: Performed By: #### B MP, CBC #### [place] [address] [place] #### NICOTINE, FRUC #### [facility] , Automated eosinophil %Ordere d By: Santa Estrada on 04-15-2024 Eosinophils/100 WBC (Bld) 3.0 % . [facility] Comment on above: Performed By: #### B MP, CBC #### [place] [address] [place] #### NICOTINE, FRUC #### [facility] , Automated eosinophil countOr dered By: Santa Estrada on 04-15-2024 Eosinophils (Bld) [#/Vol] 0.1 10*3/uL 0.0-0.45 [facility] Comment on above: Performed By: #### B MP, CBC #### [facility] [address] [place] [address] [place] #### NICOTINE, FRUC #### [facility] , Automated monocyte %Ordered By: Santa Estrada on 04-15-2024 Monocytes/100 WBC (Bld) 7.6 % . [facility] Comment on above: Performed By: #### B MP, CBC #### [place] [address] [place] #### NICOTINE, FRUC #### [facility] , Automated neutrophil %Ordere d By: Santa Estrada on 04-15-2024 Neutrophils/100 WBC (Bld) 55.1 % . [facility] Comment on above: Performed By: #### B MP, CBC #### [place] [address] [place] #### NICOTINE, FRUC #### [facility] , Basic Metabolic Panelon 03-26 GFR/1.73 sq M.predicted MDRD (S/P/Bld) [Vol rate/Area] mL/min/{1.73_m2} Normal [facility] Comment on above: Performed By: #### A 1C WTH eA, ALB, [id number], HGB #### [place] [address] [place] #### NICOTINE #### [facility] , Bilirubin Test strip Ql (U)O rdered By: Santa Estrada on 04-15-2024 Bilirubin Ql (U) Negative Negative [facility] Calcium [Mass/volume] in Ser um or PlasmaOrdered By: Santa Estrada on 04-15-2024 Calcium [Mass/Vol] 9.0 mg/dL 8.6-10.3 [facility] Comment on above: Result Comment: PERF ORMED BY: [place] [address] PATHOLOGIST RADIOTELEGRAPHIST GENO BENEDICT M.D. Performed By: #### A 1C WTH eA, ALB, [id number], HGB #### [place] [address] [place] #### NICOTINE #### [facility] , Carbon dioxide, total [Moles /volume] in Serum or PlasmaOrdered By: Santa Estrada on 04-15-2024 CO2 [Moles/Vol] 26.3 mmol/L 21.0-31.0 [facility] Comment on above: Performed By: #### A 1C WTH eA, ALB, [id number], HGB #### [address] #### NICOTINE #### [facility] , Chloride [Moles/volume] in S liam or PlasmaOrdered By: Santa Estrada on 04-15-2024 Chloride [Moles/Vol] 106 mmol/L 98-107 [facility] Comment on above: Performed By: #### A 1C WTH eA, ALB, [id number], HGB #### [address] #### NICOTINE #### [facility] , Color of Urine by AutoOrdere d By: Santa Estrada on 04-15-2024 Color (U) Yellow Yellow [facility] Comment on above: Order Comment: Name Collection Type:: Clean-Voided Midstream Performed By: #### U A #### [address] Complete Blood Count Auto Di ffon 04-15-2024 Mean Corpuscular HGB Conc 34.0 g/dL Normal 32.0-35.0 [facility] Comment on above: Performed By: #### B MP, CBC #### [place] [address] [place] #### NICOTINE, FRUC #### [facility] , NRBC% 0.1 /100{WBC} Normal 0-0.5 [facility] Comment on above: Performed By: #### B MP, CBC #### [place] [address] [place] #### NICOTINE, FRUC #### [facility] , Cotinine [Mass/volume] in Se rum or PlasmaOrdered By: Santa Estrada on 04-15-2024 Cotinine [Mass/Vol] <1.0 ng/mL . [facility] Comment on above: This test was develo ped and its performance characteristicsdetermined by [facility]. It has not been cleared orapproved by the Food and Drug Administration.Cotinine levels greater than 20.0 are consistent with theuse of tobacco or tobacco cessation products.Performed at: [facility] [address] [id number] Director: Marcellus Dave MD, Phone: [phone] Creatinine [Mass/volume] in Serum or PlasmaOrdered By: Santa Estrada on 04-15-2024 Creatinine [Mass/Vol] 0.65 mg/dL 0.60-1.20 [facility] Comment on above: Performed By: #### A 1C WTH eA, ALB, [id number], HGB #### [facility] [address] [place] [address] #### NICOTINE #### [facility] , Erythrocyte distribution wid th [Ratio] by Automated countOrdered By: Santa Estrada on 04-15-2024 Erythrocyte distribution width (RBC) [Ratio] 13.2 % 11.9-15.3 [facility] Comment on above: Performed By: #### B MP, CBC #### [facility] [address] [place] [address] #### NICOTINE, FRUC #### [facility] , Erythrocytes [#/volume] in B lood by Automated countOrdered By: Santa Estrada on 04-15-2024 RBC (Bld) [#/Vol] 4.52 10*6/uL 3.60-5.00 [facility] Comment on above: Performed By: #### B MP, CBC #### [facility] [address] [place] [address] [place] #### NICOTINE, FRUC #### [facility] , Fructosamineon 04-15-2024 Fructosamine 219 umol/L Normal 0-285 [facility] Comment on above: Result Comment: Publ ished reference interval for apparently healthy subjects between age 20 and 60 is 205 - 285 umol/L and in a poorly controlled diabetic population is 228 - 563 umol/L with a mean of 396 umol/L. Performed at: [facility] [address] [place], [place] [id number] Science Education Professor: Dario West PhD, Phone: [phone] Performed By: #### A 1C WTH eA, ALB, [id number], HGB #### [address] #### NICOTINE #### [facility] , Fructosamine [Moles/volume] in Serum or PlasmaOrdered By: Santa Estrada on 04-15-2024 Fructosamine [Moles/Vol] 219 umol/L 0-285 [facility] Comment on above: Published reference interval for apparently healthysubjects between age 20 and 60 is 205 - 285 umol/L and in apoorly controlled diabetic population is 228 - 563 umol/Lwith a mean of 396 umol/L.Performed at: [facility] [id number] Director: Dario West PhD, Phone: [phone] Glucose [Mass/volume] in Ser um or PlasmaOrdered By: Santa Estrada on 04-15-2024 Glucose [Mass/Vol] 88 mg/dL 70-100 [facility] Comment on above: ADA recommended refe rence rangeRandom Glucose Reference Range is dependent on time and content of last meal. Glucose of more than 200 mg/dL in a nonstressed, ambulatory subject supports the diagnosis of Diabetes Mellitus. Result Comment: [place] Glucose Reference Range is dependent on time and content of last meal. Glucose of more than 200 mg/dL in a nonstressed, ambulatory subject supports the diagnosis of Diabetes Mellitus. ADA recommended reference range Performed By: #### A 1C WTH eA, ALB, [id number], HGB #### [place] [address] [place] #### NICOTINE #### [facility] , Hematocrit [Volume Fraction] of Blood by Automated countOrdered By: Santa Estrada on 04-15-2024 Hematocrit (Bld) [Volume fraction] 40.4 % 34.0-46.4 [facility] Comment on above: Performed By: #### B MP, CBC #### [facility] [address] [place] [address] [place] #### NICOTINE, FRUC #### [facility] , Hemoglobin [Mass/volume] in BloodOrdered By: Santa Estrada on 04-15-2024 Hemoglobin (Bld) [Mass/Vol] 13.7 g/dL 11.8-15.4 [facility] Comment on above: Performed By: #### B MP, CBC #### [place] [address] [place] #### NICOTINE, FRUC #### [facility] , Ketones Auto test strip (U) [Mass/Vol]Ordered By: Santa Estrada on 04-15-2024 Ketones (U) [Mass/Vol] Negative Negative [facility] Leukocytes [#/volume] correc perla for nucleated erythrocytes in Blood by Automated counOrdered By: Santa Estrada on 04-15-2024 WBC corrected for nucl RBC Auto (Bld) [#/Vol] 4.1 10*3/uL 3.8-11.6 [facility] Leukocytes [#/volume] in Blo od by Automated countOrdered By: Santa Estrada on 04-15-2024 WBC (Bld) [#/Vol] 4.1 10*3/uL 3.8-11.6 [facility] Comment on above: Performed By: #### B MP, CBC #### [facility] [address] [place] [address] [place] #### NICOTINE, FRUC #### [facility] , Lymphocytes [#/volume] in Bl ood by Automated countOrdered By: Santa Estrada on 04-15-2024 Lymphocytes (Bld) [#/Vol] 1.4 10*3/uL 1.00-4.8 [facility] Comment on above: Performed By: #### B MP, CBC #### [facility] [address] [place] [address] [place] #### NICOTINE, FRUC #### [facility] , Lymphocytes/100 leukocytes i n Blood by Automated countOrdered By: Santa Estrada on 04-15-2024 Lymphocytes/100 WBC (Bld) 33.6 % . [facility] Comment on above: Performed By: #### B MP, CBC #### [place] [address] [place] #### NICOTINE, FRUC #### [facility] , MCH [Entitic mass] by Automa perla countOrdered By: Santa Estrada on 04-15-2024 MCH (RBC) [Entitic mass] 30.4 pg 24.7-34.3 [facility] Comment on above: Performed By: #### B MP, CBC #### [address] #### NICOTINE, FRUC #### [facility] , MCHC Auto (RBC) [Mass/Vol]Or dered By: Santa Estrada on 04-15-2024 MCHC (RBC) [Mass/Vol] 34.0 g/dL 32.0-35.0 [facility] MCV [Entitic volume] by Auto mated countOrdered By: Santa Estrada on 04-15-2024 MCV (RBC) [Entitic vol] 89.4 fL 80-100 [facility] Comment on above: Performed By: #### B MP, CBC #### [place] [address] [place] #### NICOTINE, FRUC #### [facility] , Neutrophils [#/volume] in Bl ood by Automated countOrdered By: Santa Estrada on 04-15-2024 Neutrophils (Bld) [#/Vol] 2.2 10*3/uL 1.8-7.7 [facility] Comment on above: Performed By: #### B MP, CBC #### [place] [address] [place] #### NICOTINE, FRUC #### [facility] , Nicotine [Mass/volume] in Se rum or PlasmaOrdered By: Santa Estrada on 04-15-2024 Nicotine [Mass/Vol] <1.0 ng/mL . [facility] Comment on above: This test was develo ped and its performance characteristicsdetermined by [facility]. It has not been cleared orapproved by the Food and Drug Administration.Nicotine levels greater than 2.0 are consistent with theuse of tobacco or tobacco cessation products. Nicotine/Cotinine Bloodon Cotinine, Blood <1.0 Normal . [facility] Comment on above: Result Comment: This test was developed and its performance characteristics determined by [facility]. It has not been cleared or approved by the Food and Drug Administration. Cotinine levels greater than 20.0 are consistent with the use of tobacco or tobacco cessation products. Performed at: [address] [id number] Science Education Professor: Marcellus Dave MD, Phone: [phone] PERFORMED BY: [place] [address] PATHOLOGIST RADIOTELEGRAPHIST GENO BENEDICT M.D. Performed By: #### A 1C WT eA, ALB, [id number], HGB #### [address] #### NICOTINE #### [facility] , Nicotine, Blood <1.0 Normal . [facility] Comment on above: Result Comment: This test was developed and its performance characteristics determined by [facility]. It has not been cleared or approved by the Food and Drug Administration. Nicotine levels greater than 2.0 are consistent with the use of tobacco or tobacco cessation products. Performed By: #### A 1C WTH eA, ALB, [id number], HGB #### [place] [address] [place] #### NICOTINE #### [facility] , Nitrite Test strip Ql (U)Ord ered By: Santa Estrada on 04-15-2024 Nitrite Ql (U) Negative Negative [facility] No Panel InformationOrdered By: Santa Estrada on 04-15-2024 Estimated GFR (CKD-EPI) > 60.0 mL/Min [facility] Creatinine Clearance (Chem N/A [facility] Nucleated erythrocytes [Pres ence] in Blood by Automated countOrdered By: Santa Estrada on 04-15-2024 Nucleated RBC Auto Ql (Bld) 0.1 /100{WBC} 0-0.5 [facility] PST Type and Screenon 2023 ABO and Rh group Nom (Bld) Blood group O Rh(D) positive Normal [facility] Comment on above: Order Comment: Date of Surgery: [id number] Result Comment: PERF ORMED BY: [place] [address] PATHOLOGIST RADIOTELEGRAPHIST GENO BENEDICT M.D. Platelet mean volume [Entiti c volume] in Blood by Automated countOrdered By: Santa Estrada on 04-15-2024 Platelet mean volume (Bld) [Entitic vol] 7.3 fL 6.3-10.7 [facility] Comment on above: Performed By: #### B MP, CBC #### [facility] [address] [place] [address] #### NICOTINE, FRUC #### [facility] , Platelets [#/volume] in Bloo d by Automated countOrdered By: Santa Estrada on 04-15-2024 Platelets (Bld) [#/Vol] 230 10*3/uL 150-450 [facility] Comment on above: Performed By: #### B MP, CBC #### [facility] [address] [place] [address] [place] #### NICOTINE, FRUC #### [facility] , Potassium [Moles/volume] in Serum or PlasmaOrdered By: Santa Estrada on 04-15-2024 Potassium [Moles/Vol] 4.0 mmol/L 3.5-5.1 [facility] Comment on above: Performed By: #### A 1C WTH eA, ALB, [id number], HGB #### [place] [address] [place] #### NICOTINE #### [facility] , Protein Auto test strip (U) [Mass/Vol]Ordered By: Santa Estrada on 04-15-2024 Protein (U) [Mass/Vol] Negative Negative [facility] Serum or plasma anion gap de terminationOrdered By: Santa Estrada on 04-15-2024 Anion gap [Moles/Vol] 6.7 mmol/L 6.0-15.0 [facility] Comment on above: Performed By: #### A 1C WT eA, ALB, [id number], HGB #### [place] [address] [place] #### NICOTINE #### [facility] , Sodium [Moles/volume] in Ser um or PlasmaOrdered By: Santa Estrada on 04-15-2024 Sodium [Moles/Vol] 135 mmol/L Low 136-145 [facility] Comment on above: Performed By: #### A 1C WTH eA, ALB, [id number], HGB #### [address] #### NICOTINE #### [facility] , Specific gravity Auto test s trip (U) [Rel density]Ordered By: Santa Estrada on 04-15-2024 Specific gravity (U) [Rel density] 1.009 1.001-1.03 0 [facility] Urea nitrogen [Mass/volume] in Serum or PlasmaOrdered By: Santa Estrada on 04-15-2024 Urea nitrogen [Mass/Vol] 10 mg/dL 7-25 [facility] Comment on above: Performed By: #### A 1C WTH eA, ALB, [id number], HGB #### [place] [address] [place] #### NICOTINE #### [facility] , Urinalysison 04-15-2024 Appearance (U) Clear Normal Clear [facility] Comment on above: Order Comment: Name Collection Type:: Clean-Voided Midstream Performed By: #### U A #### [facility] [address] [place] [address] [place] Bilirubin,Urine Negative Normal Negative [facility] Comment on above: Order Comment: Name Collection Type:: Clean-Voided Midstream Performed By: #### U A #### [facility] [address] [place] [address] [place] Glucose Ql (U) Normal Normal Normal [facility] Comment on above: Order Comment: Name Collection Type:: Clean-Voided Midstream Performed By: #### U A #### [facility] [address] [place] [address] [place] Ketones Ql (U) Negative Normal Negative [facility] Comment on above: Order Comment: Name Collection Type:: Clean-Voided Midstream Performed By: #### U A #### [place] [address] [place] Leukocyte esterase Test strip Ql (U) Negative Normal Negative [facility] Comment on above: Order Comment: Name Collection Type:: Clean-Voided Midstream Performed By: #### U A #### [place] [address] [place] Nitrite,Urine Negative Normal Negative [facility] Comment on above: Order Comment: Name Collection Type:: Clean-Voided Midstream Performed By: #### U A #### [place] [address] [place] Occult Blood,Urine Negative Normal Negative [facility] Comment on above: Order Comment: Name Collection Type:: Clean-Voided Midstream Result Comment: PERF ORMED BY: [place] [address] PATHOLOGIST RADIOTELEGRAPHIST GENO BENEDICT M.D. Performed By: #### U A #### [place] [address] [place] Protein,Urine Negative Normal Negative [facility] Comment on above: Order Comment: Name Collection Type:: Clean-Voided Midstream Performed By: #### U A #### [facility] [address] Specificy [place],Urine 1.009 Normal 1.001-1.03 0 [facility] Comment on above: Order Comment: Name Collection Type:: Clean-Voided Midstream Performed By: #### U A #### [address] Urobilinogen,Urine Normal Normal Normal [facility] Comment on above: Order Comment: Name Collection Type:: Clean-Voided Midstream Performed By: #### U A #### [address] Urine clarity by refractomet ry automatedOrdered By: Santa Estrada on 04-15-2024 Clarity Refractometry automated (U) Clear Clear [facility] Urine glucose measurement by automated test strip (mass/volume)Ordered By: Santa Estrada on 04-15-2024 Glucose Auto test strip (U) [Mass/Vol] Normal mg/dL Normal [facility] Urine hemoglobin detection b y automated test stripOrdered By: Santa Estrada on 04-15-2024 Hemoglobin Auto test strip Ql (U) Negative Negative [facility] Urine leukocyte esterase det ection by automated test stripOrdered By: Santa Estrada on 04-15-2024 Leukocyte esterase Auto test strip Ql (U) Negative Negative [facility] Urine pH measurement by auto mated test stripOrdered By: Santa Estrada on 04-15-2024 pH (U) 8.0 [pH] 5.0-9.0 [facility] Comment on above: Order Comment: Name Collection Type:: Clean-Voided Midstream Performed By: #### U A #### [facility] [address] [place] [address] Urobilinogen Auto test strip (U) [Mass/Vol]Ordered By: Santa Estrada on 04-15-2024 Urobilinogen (U) [Mass/Vol] Normal mg/dL Normal [facility] CBC with Diffon 03-14-2024 Abs. Basophil 0.06 k/uL Normal 0.00-0.20 [facility] Comment on above: Performed By: #### C DP, VD25, FEBC, AHCV, GLYHGB, HIVCMB, TSHX, FERI, LIPRF, B12, CP #### [place] [address] Science Education Professor: Isreal Astorga MD Abs.Imm.Granulocyte <0.03 Normal 0.00-0.30 [facility] Comment on above: Performed By: #### C DP, VD25, FEBC, AHCV, GLYHGB, HIVCMB, TSHX, FERI, LIPRF, B12, CP #### [place] [address] Science Education Professor: Isreal Astorga MD Abs.Neutrophil (Seg) 2.66 k/uL Normal 1.50-8.10 [facility] Comment on above: Performed By: #### C DP, VD25, FEBC, AHCV, GLYHGB, HIVCMB, TSHX, FERI, LIPRF, B12, CP #### [place] [address] Science Education Professor: Isreal Astorga MD Basophils/100 WBC (Bld) 1 % Normal 0-2 [facility] Comment on above: Performed By: #### C DP, VD25, FEBC, AHCV, GLYHGB, HIVCMB, TSHX, FERI, LIPRF, B12, CP #### [place] [address] Science Education Professor: Isreal Astorga MD Eosinophils (Bld) [#/Vol] 0.28 10*3/uL Normal 0.00-0.44 [facility] Comment on above: Performed By: #### C DP, VD25, FEBC, AHCV, GLYHGB, HIVCMB, TSHX, FERI, LIPRF, B12, CP #### [place] [address] Science Education Professor: Isreal Astorga MD Eosinophils/100 WBC (Bld) 5 % High 1-4 [facility] Comment on above: Performed By: #### C DP, VD25, FEBC, AHCV, GLYHGB, HIVCMB, TSHX, FERI, LIPRF, B12, CP #### [address] [phone] Science Education Professor: Isreal Astorga MD Erythrocyte distribution width (RBC) [Ratio] 12.6 % Normal 11.8-14.4 [facility] Comment on above: Performed By: #### C DP, VD25, FEBC, AHCV, GLYHGB, HIVCMB, TSHX, FERI, LIPRF, B12, CP #### [place] [phone] Science Education Professor: Isreal Astorga MD Hematocrit (Bld) [Volume fraction] 38.8 % Normal 36.3-47.1 [facility] Comment on above: Performed By: #### C DP, VD25, FEBC, AHCV, GLYHGB, HIVCMB, TSHX, FERI, LIPRF, B12, CP #### [place] [address] Science Education Professor: Isreal Astorga MD Hemoglobin (Bld) [Mass/Vol] 12.9 g/dL Normal 11.9-15.1 [facility] Comment on above: Performed By: #### C DP, VD25, FEBC, AHCV, GLYHGB, HIVCMB, TSHX, FERI, LIPRF, B12, CP #### [place] [phone] Science Education Professor: Isreal Astorga MD Immature granulocytes/100 WBC (Bld) 0 % Normal 0 [facility] Comment on above: Performed By: #### C DP, VD25, FEBC, AHCV, GLYHGB, HIVCMB, TSHX, FERI, LIPRF, B12, CP #### [address] [phone] Science Education Professor: Isreal Astroga MD Lymphocytes (Bld) [#/Vol] 1.69 10*3/uL Normal 1.10-3.70 [facility] Comment on above: Performed By: #### C DP, VD25, FEBC, AHCV, GLYHGB, HIVCMB, TSHX, FERI, LIPRF, B12, CP #### [address] [phone] Science Education Professor: Isreal Astorga MD Lymphocytes/100 WBC (Bld) 33 % Normal 24-43 [facility] Comment on above: Performed By: #### C DP, VD25, FEBC, AHCV, GLYHGB, HIVCMB, TSHX, FERI, LIPRF, B12, CP #### [place] [phone] Science Education Professor: Isreal Astorga MD MCH (RBC) [Entitic mass] 29.9 pg Normal 25.2-33.5 [facility] Comment on above: Performed By: #### C DP, VD25, FEBC, AHCV, GLYHGB, HIVCMB, TSHX, FERI, LIPRF, B12, CP #### [facility] [address] [place] [id number] Science Education Professor: Isreal Astorga MD MCHC (RBC) [Mass/Vol] 33.2 g/dL Normal 28.4-34.8 [facility] Comment on above: Performed By: #### C DP, VD25, FEBC, AHCV, GLYHGB, HIVCMB, TSHX, FERI, LIPRF, B12, CP #### [facility] [address] [place] [phone] Science Education Professor: Isreal Astorga MD MCV (RBC) [Entitic vol] 89.8 fL Normal 82.6-102.9 [facility] Comment on above: Performed By: #### C DP, VD25, FEBC, AHCV, GLYHGB, HIVCMB, TSHX, FERI, LIPRF, B12, CP #### [address] [phone] Science Education Professor: Isreal Astorga MD Monocytes (Bld) [#/Vol] 0.47 10*3/uL Normal 0.10-1.20 [facility] Comment on above: Performed By: #### C DP, VD25, FEBC, AHCV, GLYHGB, HIVCMB, TSHX, FERI, LIPRF, B12, CP #### [address] [phone] Science Education Professor: Isreal Astorga MD Monocytes/100 WBC (Bld) 9 % Normal 3-12 [facility] Comment on above: Performed By: #### C DP, VD25, FEBC, AHCV, GLYHGB, HIVCMB, TSHX, FERI, LIPRF, B12, CP #### [address] [id number] Science Education Professor: Isreal Astorga MD Neutrophil (Seg) 52 % Normal 36-65 [facility] Comment on above: Performed By: #### C DP, VD25, FEBC, AHCV, GLYHGB, HIVCMB, TSHX, FERI, LIPRF, B12, CP #### [place] [address] Science Education Professor: Isreal Astorga MD NRBC Automated 0.0 per 100 WBC Normal 0.0 [facility] Comment on above: Performed By: #### C DP, VD25, FEBC, AHCV, GLYHGB, HIVCMB, TSHX, FERI, LIPRF, B12, CP #### [address] [phone] Science Education Professor: Isreal Astorga MD Platelet mean volume (Bld) [Entitic vol] 9.7 fL Normal 8.1-13.5 [facility] Comment on above: Performed By: #### C DP, VD25, FEBC, AHCV, GLYHGB, HIVCMB, TSHX, FERI, LIPRF, B12, CP #### [address] [id number] Science Education Professor: Isreal Atsorga MD Platelets (Bld) [#/Vol] 256 10*3/uL Normal 138-453 [facility] Comment on above: Performed By: #### C DP, VD25, FEBC, AHCV, GLYHGB, HIVCMB, TSHX, FERI, LIPRF, B12, CP #### [address] [phone] Science Education Professor: Isreal Astorga MD RBC (Bld) [#/Vol] 4.32 10*6/uL Normal 3.95-5.11 [facility] Comment on above: Performed By: #### C DP, VD25, FEBC, AHCV, GLYHGB, HIVCMB, TSHX, FERI, LIPRF, B12, CP #### [address] [phone] Science Education Professor: Isreal Astorga MD WBC (Bld) [#/Vol] 5.2 10*3/uL Normal 3.5-11.3 [facility] Comment on above: Performed By: #### C DP, VD25, FEBC, AHCV, GLYHGB, HIVCMB, TSHX, FERI, LIPRF, B12, CP #### [address] [id number] Science Education Professor: Isreal Astorga MD Comp Metabolic Profon 2023 Albumin [Mass/Vol] 4.2 g/dL Normal 3.5-5.2 [facility] Comment on above: Performed By: #### C DP, VD25, FEBC, AHCV, GLYHGB, HIVCMB, TSHX, FERI, LIPRF, B12, CP #### [address] [phone] Science Education Professor: Isreal Astorga MD Albumin/Glob Ratio 2.0 Normal 1.0-2.5 [facility] Comment on above: Performed By: #### C DP, VD25, FEBC, AHCV, GLYHGB, HIVCMB, TSHX, FERI, LIPRF, B12, CP #### [address] [phone] Science Education Professor: Isreal Astorga MD Alkaline Phos 72 U/L Normal 35-104 [facility] Comment on above: Performed By: #### C DP, VD25, FEBC, AHCV, GLYHGB, HIVCMB, TSHX, FERI, LIPRF, B12, CP #### [address] [id number] Science Education Professor: Isreal Astorga MD ALT [Catalytic activity/Vol] 21 U/L Normal 10-35 [facility] Comment on above: Performed By: #### C DP, VD25, FEBC, AHCV, GLYHGB, HIVCMB, TSHX, FERI, LIPRF, B12, CP #### [address] [address] Science Education Professor: Isreal Astorga MD Anion gap [Moles/Vol] 8 mmol/L Low 9-16 [facility] Comment on above: Performed By: #### C DP, VD25, FEBC, AHCV, GLYHGB, HIVCMB, TSHX, FERI, LIPRF, B12, CP #### [address] [address] Science Education Professor: Isreal Astorga MD AST [Catalytic activity/Vol] 23 U/L Normal 10-35 [facility] Comment on above: Performed By: #### C DP, VD25, FEBC, AHCV, GLYHGB, HIVCMB, TSHX, FERI, LIPRF, B12, CP #### [address] [address] Science Education Professor: Isreal Astorga MD Bilirubin [Mass/Vol] 0.4 mg/dL Normal 0.00-1.20 [facility] Comment on above: Performed By: #### C DP, VD25, FEBC, AHCV, GLYHGB, HIVCMB, TSHX, FERI, LIPRF, B12, CP #### [address] [id number] Science Education Professor: Isreal Astorga MD Calcium [Mass/Vol] 8.8 mg/dL Normal 8.6-10.4 [facility] Comment on above: Performed By: #### C DP, VD25, FEBC, AHCV, GLYHGB, HIVCMB, TSHX, FERI, LIPRF, B12, CP #### [address] [phone] Science Education Professor: Isreal Astorga MD Chloride [Moles/Vol] 106 mmol/L Normal 98-107 [facility] Comment on above: Performed By: #### C DP, VD25, FEBC, AHCV, GLYHGB, HIVCMB, TSHX, FERI, LIPRF, B12, CP #### [address] [id number] Science Education Professor: Isreal Astorga MD CO2 [Moles/Vol] 25 mmol/L Normal 20-31 [facility] Comment on above: Performed By: #### C DP, VD25, FEBC, AHCV, GLYHGB, HIVCMB, TSHX, FERI, LIPRF, B12, CP #### [address] [address] Science Education Professor: Isreal Astorga MD Creatinine [Mass/Vol] 0.7 mg/dL Normal 0.50-0.90 [facility] Comment on above: Performed By: #### C DP, VD25, FEBC, AHCV, GLYHGB, HIVCMB, TSHX, FERI, LIPRF, B12, CP #### [address] [phone] Science Education Professor: Isreal Astorga MD GFR/1.73 sq M.predicted among non-blacks MDRD (S/P/Bld) [Vol rate/Area] mL/min/{1.73_m2} Normal >60 [facility] Comment on above: Result Comment: These [...] HIVCMB, TSHX, FERI, LIPRF, B12, CP #### [place] [address] Science Education Professor: Isreal Astorga MD Glucose [Mass/Vol] 94 mg/dL Normal 74-99 [facility] Comment on above: Performed By: #### C DP, VD25, FEBC, AHCV, GLYHGB, HIVCMB, TSHX, FERI, LIPRF, B12, CP #### [place] [address] Science Education Professor: Isreal Astorga MD Potassium [Moles/Vol] 3.8 mmol/L Normal 3.7-5.3 [facility] Comment on above: Performed By: #### C DP, VD25, FEBC, AHCV, GLYHGB, HIVCMB, TSHX, FERI, LIPRF, B12, CP #### [address] [phone] Science Education Professor: Isreal Astorga MD Protein [Mass/Vol] 6.7 g/dL Normal 6.6-8.7 [facility] Comment on above: Performed By: #### C DP, VD25, FEBC, AHCV, GLYHGB, HIVCMB, TSHX, FERI, LIPRF, B12, CP #### [address] [id number] Science Education Professor: Isreal Astorga MD Sodium [Moles/Vol] 139 mmol/L Normal 136-145 [facility] Comment on above: Performed By: #### C DP, VD25, FEBC, AHCV, GLYHGB, HIVCMB, TSHX, FERI, LIPRF, B12, CP #### [address] [phone] Science Education Professor: Isreal Astorga MD Urea nitrogen [Mass/Vol] 12 mg/dL Normal 6-20 [facility] Comment on above: Performed By: #### C DP, VD25, FEBC, AHCV, GLYHGB, HIVCMB, TSHX, FERI, LIPRF, B12, CP #### [address] [id number] Science Education Professor: Isreal Astorga MD Ferritinon 1 Ferritin [Mass/Vol] 133 ng/mL Normal 13-150 [facility] Comment on above: Result Comment: FERRITIN Reference Ranges: Adult Males 20 - 60 years: 30 - 400 ng/mL Adult females 17 - 60 years: 13 - 150 ng/mL Adults greater than 60 years: no established reference range Pediatrics: no established reference range Performed By: #### C DP, VD25, FEBC, AHCV, GLYHGB, HIVCMB, TSHX, FERI, LIPRF, B12, CP #### [address] [phone] Science Education Professor: Isreal Astorga MD HIV Ag/Abon 03-14-2024 HIV Ag/Ab Non-Reactive Normal NR [facility] Comment on above: Result Comment: No l aboratory evidence of HIV infection. If acute HIV infection is suspected, consider testing for HIV-1 RNA. Performed By: #### C DP, VD25, FEBC, AHCV, GLYHGB, HIVCMB, TSHX, FERI, LIPRF, B12, CP #### [address] [address] Science Education Professor: Isreal Astorga MD Hemoglobin A1Con 03-14-2024 Glucose [Mass/Vol] 94 mg/dL Normal [facility] Comment on above: Result Comment: The ADA and AACC recommend providing the estimated average glucose result to permit better patient understanding of their HBA1c result. Performed By: #### C DP, VD25, FEBC, AHCV, GLYHGB, HIVCMB, TSHX, FERI, LIPRF, B12, CP #### [address] [address] Science Education Professor: Isreal Astorga MD HbA1c (Bld) [Mass fraction] 4.9 % Normal 4.0-6.0 [facility] Comment on above: Performed By: #### C DP, VD25, FEBC, AHCV, GLYHGB, HIVCMB, TSHX, FERI, LIPRF, B12, CP #### [address] [address] Science Education Professor: Isreal Astorga MD Hep C Abon 03-14-2024 Hep C Ab Non-Reactive Normal NR [facility] Comment on above: Result Comment: The [...] HIVCMB, TSHX, FERI, LIPRF, B12, CP #### [facility] [address] [place] [address] [phone] Science Education Professor: Isreal Astorga MD Iron Binding Cap.on 03-14-20 24 % Fe Saturation 44 % Normal 20-55 [facility] Comment on above: Performed By: #### C DP, VD25, FEBC, AHCV, GLYHGB, HIVCMB, TSHX, FERI, LIPRF, B12, CP #### [address] [phone] Science Education Professor: Isreal Astorga MD Iron [Mass/Vol] 107 ug/dL Normal 37-145 [facility] Comment on above: Performed By: #### C DP, VD25, FEBC, AHCV, GLYHGB, HIVCMB, TSHX, FERI, LIPRF, B12, CP #### [address] [address] Science Education Professor: Isreal Astorga MD Total Fe Binding Cap 243 ug/dL Low 250-450 [facility] Comment on above: Performed By: #### C DP, VD25, FEBC, AHCV, GLYHGB, HIVCMB, TSHX, FERI, LIPRF, B12, CP #### [facility] [address] [place] [address] Science Education Professor: Isreal Astorga MD Unbound Fe Bind Cap 136 ug/dL Normal 112-347 [facility] Comment on above: Performed By: #### C DP, VD25, FEBC, AHCV, GLYHGB, HIVCMB, TSHX, FERI, LIPRF, B12, CP #### [facility] [address] [place] [address] Science Education Professor: Isreal Astorga MD Lipid Prof, Fastingon 2023 Cholesterol [Mass/Vol] 174 mg/dL Normal 0-199 [facility] Comment on above: Result Comment: Cholesterol Guidelines: <200 Desirable 200-240 Borderline >240 Undesirable Performed By: #### C DP, VD25, FEBC, AHCV, GLYHGB, HIVCMB, TSHX, FERI, LIPRF, B12, CP #### [address] [phone] Science Education Professor: Isreal Astorga MD Cholesterol in HDL [Mass/Vol] 57 mg/dL Normal >40 [facility] Comment on above: Result Comment: HDL Guidelines: <40 Undesirable 40-59 Borderline >59 Desirable Performed By: #### C DP, VD25, FEBC, AHCV, GLYHGB, HIVCMB, TSHX, FERI, LIPRF, B12, CP #### [address] [address] Science Education Professor: Isreal Astorga MD Cholesterol in LDL [Mass/Vol] 96 mg/dL Normal 0-100 [facility] Comment on above: Result Comment: LDL Guidelines: <100 Desirable 100-129 Near to/above Desirable 130-159 Borderline >159 Undesirable Direct (measured) LDL and calculated LDL are not interchangeable tests. Performed By: #### C DP, VD25, FEBC, AHCV, GLYHGB, HIVCMB, TSHX, FERI, LIPRF, B12, CP #### [address] [address] Science Education Professor: Isreal Astorga MD Cholesterol in VLDL [Mass/Vol] 22 mg/dL Normal [facility] Comment on above: Performed By: #### C DP, VD25, FEBC, AHCV, GLYHGB, HIVCMB, TSHX, FERI, LIPRF, B12, CP #### [address] [address] Science Education Professor: Isreal Astorga MD Cholesterol.total/Chol esterol in HDL [Mass ratio] 3.0 {ratio} Normal [facility] Comment on above: Performed By: #### C DP, VD25, FEBC, AHCV, GLYHGB, HIVCMB, TSHX, FERI, LIPRF, B12, CP #### [address] [phone] Science Education Professor: Isreal Astorga MD Triglyceride,Fasting 108 mg/dL Normal 0-149 [facility] Comment on above: Result Comment: Triglyceride Guidelines: <150 Desirable 150-199 Borderline 200-499 High >499 Very high Based on AHA Guidelines for fasting triglyceride, June 2012. Performed By: #### C DP, VD25, FEBC, AHCV, GLYHGB, HIVCMB, TSHX, FERI, LIPRF, B12, CP #### [facility] [address] [place] [address] [phone] Science Education Professor: Isreal Astorga MD TSH w/reflex to FT4on 2023 Thyroid Stim. Horm. 2.37 uIU/mL Normal 0.27-4.20 [facility] Comment on above: Performed By: #### C DP, VD25, FEBC, AHCV, GLYHGB, HIVCMB, TSHX, FERI, LIPRF, B12, CP #### [facility] [address] [place] [address] [phone] Science Education Professor: Isreal Astorga MD Vitamin B12on 03-14-2024 Cobalamin (Vitamin B12) [Mass/Vol] 695 pg/mL Normal 232-1245 [facility] Comment on above: Performed By: #### C DP, VD25, FEBC, AHCV, GLYHGB, HIVCMB, TSHX, FERI, LIPRF, B12, CP #### [facility] [address] [place] [address] [phone] Science Education Professor: Isreal Astorga MD Vitamin D 25 OHon 03-14-2024 Vitamin D 25 [place] 17.4 ng/mL Low 30.0-100.0 [facility] Comment on above: Result Comment: Reference Range: Vitamin D status Range Deficiency <20 ng/mL Mild Deficiency 20-30 ng/mL Sufficiency 30-100 ng/mL Toxicity >100 ng/mL Performed By: #### C DP, VD25, FEBC, AHCV, GLYHGB, HIVCMB, TSHX, FERI, LIPRF, B12, CP #### [employer] [address] [place] [address] Science Education Professor: Isreal Astorga MD Patient Handouton 03-13-2024 Patient Handout Custom [facility] [address], [address], [place] Date: 03/13/2024 RE: Lucila Jacques To whom it may concern, Lucila has been under my professional care due to a surgical procedure performed on 02/27/2024. She may return to work with no restrictions on 03/20/2024. Thank you, Peter Booth M.D. Normal [facility] Release of Informationon Release of Information [id number] Normal [facility] A1C with Estimated Average G luon 03-12-2024 Glucose [Mass/Vol] 105 mg/dL Normal [facility] Comment on above: Result Comment: PERF ORMED BY: [place] [address] PATHOLOGIST RADIOTELEGRAPHIST GENO BENEDICT M.D. Performed By: #### A 1C WTH eA, ALB, [id number], HGB #### [address] #### NICOTINE #### [facility] , Albumin Levelon 03-12-2024 Albumin [Mass/Vol] 4.0 g/dL Normal 3.5-5.7 [facility] Comment on above: Performed By: #### A 1C WTH eA, ALB, [id number], HGB #### [place] [address] [place] #### NICOTINE #### [facility] , Albumin [Mass/volume] in Ser um or Plasma by Bromocresol green (BCG) dye binding methoOrdered By: Santa Estrada on 03-12-2024 Albumin BCG dye [Mass/Vol] 4.0 g/dL 3.5-5.7 [facility] Cotinine [Mass/volume] in Se rum or PlasmaOrdered By: Santa Estrada on 03-12-2024 Cotinine [Mass/Vol] 3.7 ng/mL . [facility] Comment on above: This test was develo ped and its performance characteristicsdetermined by [facility]. It has not been cleared orapproved by the Food and Drug Administration.Cotinine levels greater than 20.0 are consistent with theuse of tobacco or tobacco cessation products.Performed at: [facility] [address] [id number] Director: Marcellus Dave MD, Phone: [phone] Glucose mean value [Mass/vol ume] in Blood Estimated from glycated hemoglobinOrdered By: Santa Estrada on 03-12-2024 Average glucose Estimated from glycated hemoglobin (Bld) [Mass/Vol] 105 mg/dL [facility] Hemoglobin A1c percentageOrd ered By: Santa Estrada on 03-12-2024 HbA1c (Bld) [Mass fraction] 5.3 % Normal 4.3-5.6 [facility] Comment on above: Increased risk for d iabetes: 5.7 - 6.4diabetes: >6.4glycemic control for adults with diabetes: <7.0 Result Comment: Incr eased risk for diabetes: 5.7 - 6.4 diabetes: >6.4 glycemic control for adults with diabetes: <7.0 Performed By: #### A 1C WTH eA, ALB, [id number], HGB #### [place] [address] [place] #### NICOTINE #### [facility] , Hemoglobin [Mass/volume] in BloodOrdered By: Santa Estrada on 03-12-2024 Hemoglobin (Bld) [Mass/Vol] 12.8 g/dL Normal 11.8-15.4 [facility] Comment on above: Result Comment: PERF ORMED BY: [place] [address] PATHOLOGIST RADIOTELEGRAPHIST JIANLAN SUN M.D. Performed By: #### A 1C WTH eA, ALB, [id number], HGB #### [facility] [address] [place] [address] [place] #### NICOTINE #### [facility] , MRSA Cultureon 03-12-2024 MRSA Culture No MRSA Isolated 2 D ays PERFORMED BY: [place] [address] PATHOLOGIST RADIOTELEGRAPHIST GENO BENEDICT M.D. Normal [facility] Comment on above: Performed By: #### C UMRSA #### [facility] [address] [place] [address] Nicotine [Mass/volume] in Se rum or PlasmaOrdered By: Santa Estrada on 03-12-2024 Nicotine [Mass/Vol] <1.0 ng/mL . [facility] Comment on above: This test was develo ped and its performance characteristicsdetermined by [facility]. It has not been cleared orapproved by the Food and Drug Administration.Nicotine levels greater than 2.0 are consistent with theuse of tobacco or tobacco cessation products. Nicotine/Cotinine Bloodon Cotinine, Blood 3.7 ng/mL Normal . [facility] Comment on above: Result Comment: This test was developed and its performance characteristics determined by [facility]. It has not been cleared or approved by the Food and Drug Administration. Cotinine levels greater than 20.0 are consistent with the use of tobacco or tobacco cessation products. Performed at: [address] [id number] Science Education Professor: Marcellus Dave MD, Phone: [phone] PERFORMED BY: [place] [address] PATHOLOGIST RADIOTELEGRAPHIST GENO BENEDICT M.D. Performed By: #### A 1C WTH eA, ALB, [id number], HGB #### [place] [address] [place] #### NICOTINE #### [facility] , Nicotine, Blood <1.0 Normal . [facility] Comment on above: Result Comment: This test was developed and its performance characteristics determined by [facility]. It has not been cleared or approved by the Food and Drug Administration. Nicotine levels greater than 2.0 are consistent with the use of tobacco or tobacco cessation products. Performed By: #### A 1C WTH eA, ALB, [id number], HGB #### [address] #### NICOTINE #### [facility] , Vitamin D 25 Hydroxy Totalon 03-12-2024 Vitamin D 25 Hydroxy Total 18.4 ng/mL Low 30-100 [facility] Comment on above: Result Comment: EVE MIN D STATUS 25(OH)VITAMIN D RANGE (ng/mL) Deficient <20 Insufficient 20 to <30 Sufficient 30 to 100 Reference: Juliano Vila, Tate VELAZQUEZ, et al. Evaluation,treatment, and prevention of vitamin D deficiency; an Endocrine Society clinical practice guideline. JCEM. 2010; 96(7):191-. PERFORMED BY: [place] [address] PATHOLOGIST RADIOTELEGRAPHIST GENO BENEDICT M.D. Performed By: #### A 1C WTH eA, ALB, [id number], HGB #### [address] #### NICOTINE #### [facility] , Vitamin D+Metabolites [Mass/ volume] in Serum or PlasmaOrdered By: Santa Estrada on 03-12-2024 Vitamin D+Metabolites [Mass/Vol] 18.4 ng/mL Low 30-100 [facility] Comment on above: VITAMIN D STATUS 25( [...] spec) No MRSA Isolated 2 Days [facility] Coding Summaryon 03-07-2024 Coding Summary HTMLBase 64 JvpfadapHQm5qUr+PGhlYWQ+PE1 YVUNkQ05ciIXwoF8hE5BSPRuHZp eyQEYYJBdBNmOparQsPF3skNPwF XJu IC8+RV9uQSIxUglbdRYtk5I6kDF 0Q81pde5aZNtkiJL8ZHRrPwHhpy sby4mgsWw4VXdgRcihIeJe CPEqlT29TFP2cS74Li63kXJonZK cg9zwcSe2JwKoXJLhPWQ0ySncKX ixd8YfSSLlP36nxXGrx0O4 SKGgpNjfdDObYnKquSA2cA7gTWn zybusv2hpaxohUdx5jt67nQGje5 G0dEM0O3GsxzA2GBHmqINb HvatrGDZqR7fbblhu5eolxxpFbW bNSXfAOu1QLo1FEJaqLpyPyGdQX 71YZQ3IHGjcxKuB2IwBIKa aSefLsV0q2M4Rc2EC2KNStjmA9Z NTUFSWTwvdGQ+HB42lo49I7YlMt dsIkl7NZQtNUO1yQT5iW6a PQHgRDmqq3K5mDV3Q1NcckDldw6 co7hlHQFoUBwfS85xvGSzo7I9VM QkvXJ2MVFhqJpaQpTrfV61 Oyc+QXRqlMiqt4YiVdmyj0yvq0n ruWa6QtpvZIInqjLnaOkrVOM6x9 ZcWi9wFLSyvJN8vGU6nH5g YzSnArL3YXinE541XrCqmOAcDmf bD88pM6DthJJ+FTCjAor9SXZocL vyJA9fW9IuODQqstoqkFAz pSmsMW0uYTKmiyzhHFBmtM5iKHJ oI7s6GsWgMbF4TFdwJ7GjJZNoiv fgXr99pS8rSnHyXwY6FKfz B6EojtK4QDVhlVBlLMizQQZ8A74 as5M0DYAmRIXqIXR4pTU2sQ7fpZ lnbjogbGVmdDsgdmVydGlj WInuHYuvC500ZOPsiFeyGeVdBAm uZyBEYXRlOiAgMDYvMTMvMjAyND wvdGQ+HRQqKIP0dCgnPDIv bCPtDLplFt9gmPzsgUboNP4qDVF swddjETGdtH4xGONtyKXngOksEL 4uCVUiuoxgl521KmWhLZY3 MEXqeJCtW2NffG7mBuBpTRAwOTT hJ4LcaPWzLZveJ557YSdzUdG8QV PbekDhR6BxNDMpnUbcByX8 f1I2Yp0Jq1VwetooD8ZafXBoEbI vVsuaZNn5L0JoImzczRD+PC90YW DvFB80DAm9JAV3tGcrMMqn ESGcA0FbmR3iKqPnXERdZPNpQie +PHRhYmxlIHdpZHRoPScxMDAlJy RslGyiTW3nHv7lMKWmSZTr nKlcxKRpPjEvu4ilLEWzYYnbFL5 lnIdhM9UuxBW1XCOlm0a9Xc44X8 5rO1EjdAR+IBCrmES7mGZ1 zN4jQfMyRwQ7SNpcV759PsQudHS pEgeay2kku8doiNe2MqS4NOPgxe ObqHafXLS6q8LlEp37A10u IHdpZHRoPSIxNSUiIHZhbGlnbj0 qxM8rIi2+RBDixNE0rAY6uT2iIi VdFqD2TImyC476OlIbyHGb Omlmt9par0qkjDw1UtPgKXOnyqJ zzQsdYRB6e1JpJi38J1PykRqja0 NbBxd1zq98hPBug5Z0jSH6 E2FoHPDogkytoREqrJudQC7xZFB rnlinFQEosS5lSWDfG9u9MxJtWp I2JEfqG9GoumB3EPRfiTJi YDItiJFFaK3qeyqkr0dykddgBuY vTRUgWLi4MQn7SCVhrBxkYkUyDB P6NpE3AVA7sKCnkH7bdBqq kqqicL1dYdo+AYX7yDShdGRYZJ9 lOjwvdGQ+CGHePHR5vKwiSWrdOV NzbM4sBPHpO1r9ZgInLjE3 IQsbQ8CuesZ5YTDziBNhEDAfaVL GzC8clobcx6utbchySiNaNYAhMS w8SFc5PZNefGayAbBvQFW6 FoB6RTY9dFLtvP7nlShtqimqyK5 wOyc+HlqcyBfkTQL7YWx2T7XpUx b6IKZzxYtbXG0zdXYwRKob Vr8wtQvysLkmLK7fLWGllpmxm21 8EbHwl8tjTNBcxFNiNRcrAQC9P2 2xk5G5PIRmSVKjATL2kGJ1 tK3xuYwjmzubyFTiuLkgulPqmNk sSVwgAZezR586QJLrbPrnKsAoOM p9B7FbLcd0HKRvgWvbPX4m uEXgNByjMp1osLngrSeaCI5hPFI tfekbq003TlEsa3gnKRJwwDZjRZ mbCZW2N85fa7R8QOGvNLZs MJM2eUS3lZ3ifQxbvwtuvPOdgYd wmfSkuChqRYsoIOcrB971SFFtxO bhAnGzkTn3T9DjQfw7KRGo wQbhVF4zyTZxAApiJd0cgPftpIa qRK9bQDMdrtskh356QpZov5diUW TrqHCgMBnyASE8X85fn8S3 XDGjZTPpOHN1oUN0xD6tqVtdgfp gbGVmdDsgdmVydGljYWwtYWxpZ2 46IHRvcDsnPlBhdGllbnQg ZLwuHOv1R0PhTuufnMV+KC82JNC rBB70sJEgfMRyo5egdFr7AeScAT ZxFBF2mOicBFkla0TzONVk S50ooKCeg2H1UOFphZwosNUqYfJ ezIO6fJ1hNOrtgamne6mlpxuyXj mpt6sneg74kG69V70zSZmz WUBbUYVjSYNvUDLcjWswio4knA9 wIi8+ZLFsoLL9aXK4cB4xSFEkZu J8ISzfJ484IuQxqBTqExko q6eue0hgyFp9AoS5LCUjuhAayGk yAFK7e9TwFi86K02uRTyxIMMmQX TjNGUpAYAzrKzeqs7ncS2v Ii8+BSDsgJL3jGR1tT1hBcRaPyC 4ATeeB402HtFcaPPwLjyoJ65kR3 JvdXA+SPAzVxy4MVIhqUvx TP7ueKSfLMkbVk2jXYS3UvUsDvR cCRthA2YcLCQjxqhoubkikTL1PR EeODJbsL15Og2tuByaHRTu qCSXzX0rjnjlp7xrpjeuPlRoEAQ vQFb9CLr3LNHadHbxIaYnEFU8Wl S1JJM6iKUaeK4dtIooxujg eK2cL6GsHFHjwhbfGa69eS6uWxJ kHiE8FFffFbo+FkHGXpvjR7XJAG lVVmOVAKT2W7DxMyk1BVUi ySnqHL0ixZVhJAwcYf4ukVzajEz jGI6uXVJajqfjJYFvhY8eSZMgbZ GrgBorKP5oQPWvvadlw386 ZzNvOLM0BZQjhYTqQ5WfcD5oGxD rJDTuPJTgU3RqcYTtDGlcC022XB hyBiR5HQOmotLzI8UcILJw eVtqIfX0v7I4Bx2uRJ9jRo3vJSc 6HU66AO32rWAcw0P2rUX2W7FwSB PvyvzspsllsBE1GGOnQNZy eG94bOOeEFicTb2ij4D4q264KVU aUELfqE87Oz9faEquCJNvqQULbZ 7mbaaiq8tmzjcxYeEzTTUr MVa3KRy9JMAlwQruOgWnEBS1SdE 7LNC1xYEnfJ6mmAqbijuclM8jRe c+XkBqRFLxdfD7I2KgBax9 OCYxsBuqGQ6mtJFeFBwkKy8szVh byDgrZC9yQDOorthxSALwfS4pRN IjvFMglErhTD4tVXFtebgm u415NiTtQVY1WJKxfKTjE8DrxV4 vGdWzRHVdKXLfY3KzjFNoAUxnH3 36REpyTmW1ZFXujkXhU3Pr MTRpsQyiGjB0l4R2Rg9XXQ4NTQF 6R9NeHow5QWRutDnjXL7ojVYvGT tbAm8ksZfwuAvpVJ3yVUAv zdquMVRtsV5mHOHflFNqmOkfCL5 mBZXlzfmhb843VePgQLB3BKDmjA GfZ1XeyN0cPoGgWVKjDXHr O2HiwBVoJOwtJ063RFurUsZ9YKE mflAnG4MfARJvuFdsWjR3p1Y3Po 5PYnNlcnZhdGlvbjwvdGQ+ TA83fs37Z1UiBytnNmh8VYNrBBC 8iCT1rX8dYQJoBXsqp9K6qJL0N3 RmtrDrho1gh0ubIVFnUJmn G77yxCMxp8Y3GWDgtXF8LPUslNu pSnIgvS14Dgg+QZAerUhbu5IaTa chb7vyg9cctRx0VhHdDPIf qdQabBihYWS2f0EoDp73L02oJXo rGFXmRLIhQLBmGTXxyBvlpr8yeV 9wIi8+ZASlnTD3qPH0cD3z GaGuIdE9FDccX768KmMkiBZvUwf ww5nlz0cwdYa8AvIgWIBfbdTpoS emMLJ2n8VkFq49K1PmyXlu x4UyNkw9us17yEHpg2P3gPL9I9P nJSWbdyngiFKkuQhbRS4aKEPjxf phLBGrpY3aCYRjT5q6PyBd BoX8JZpvU0RkgqU8JAQgfZPeAUL cyRNDvC2rdygfp6voeffzAjGzGI OyWAi6ULu6YZRiuLtoXpHk EMJ4FlB1IMV8zBZlyE3igWdptsr xuZ4hBif+UJv2l8uigHGlBR5sgX R9CM84RY85jNFfh7R1cLQ3 O4CeYGEscqjheccfmPZ8BBDtRCB rgI46Df5dkFdqMe1uMADaNNJ8FH JpjNUdR7WxqV1oJwLkTGQr TYDjN8CwnRUgYDkwD507BLrnWdM 1MUDqydLnD3VmJSAhsYxjTtW3g1 B4Bc0KBT66ZR97IZ22wKHv e3W7mWR7Q6YnQKGflcptuvwzqTO 1MGEaNGToyH39Vc0gtDdbFa7gON KvPZY2QMMsaJVjY3MymF2o AeHaEYTjYIZgU2JbiMJrVVexW84 7COfzLqV6BMIsrlZxE6QhDRBajV ioZiQ2r9Q5Ir8KHa28QI33 UB14tOCni0U2qNH1W0GoUWPbzmq kyjpzpUA8ZWCjPIDlfB71Vd4bmH owAc6oCXNgKBZ3NNMsnPCe A9HytW0iOiGjROJaOBHtH9UajHO qNWgyP203KIzbHpL4SFZgqyIxZ0 CzHEElbTuzTgQ4v9M6Fr8K TPostwl9B6WkZeendBB+LB10LYP zXV38dQRboLLct8zohYa7UxXgHV CePGF9aKdyRRxms9MbQQVm Y29 (more content not included)... Normal [facility] Lab - AP Resultson 4 Lab - AP Results [id number]#1.00OTGTIFF Normal [facility] MR KNEE LT WO CONTon 024 MR [...] Mckenzie MD on 03/04/2024 9:59 AM Normal [facility] Consent Formson 02-29-2024 Consent Forms [id number]#[facility] 02-28-2024 Consent Forms [id number]#1.[facility] Consent Forms [id number]#1.00[facility] MAGR Postoperative Recordon 02-28-2024 MAGR Postoperative Record MAGR Phase II Record Summary Primary Physician: Peter Booth MD Finalized Date/Time: 02/28/24 07:49:14 Pt. Name: LUCILA JACQUES/Sex: 1990 FEMALE Med Rec #: [id number] Physician: Param Michelle DO Financial #: [id number] Pt. Type: O Room/Bed: [facility] Admit/Disch: 02/26/24 22:40:28 - 02/27/24 18:45:00 Institution: [...] Signed By: Mya Villar RN 02/28/24 07:49 [facility] Outside Recordson 02-28-2024 Outside Records [id number]#[facility]pson Telemetry Strips [id number]#1.[facility] .Auto Diff 102-27-2024 Auto Darke % 8 % Normal -12 [facility] Comment on above: Performed By: #### 1 [id number], [id number], [id number], [id number], 8862906, [id number], [id number] #### [facility] (DEFAULT) [address] [place] [address] 97178 Baso Abs# 0.0 x10 Normal 0.0-0.2 [facility] Comment on above: Performed By: #### 1 [id number], [id number], [id number], [id number], [id number], 1672925, 7837283, [id number] #### [facility] (DEFAULT) [address] [place] [address] 15758 Basophils/100 WBC (Bld) 0.4 % Normal 0.2-2.0 [facility] Comment on above: Performed By: #### 1 [id number], [id number], [id number], [id number], [id number], 8183250, [id number], [id number] #### [facility] (DEFAULT) [address] [place] [address] 04245 Eos Abs# 0.1 x10 Normal 0.0-0.4 [facility] Comment on above: Performed By: #### 1 [id number], [id number], [id number], [id number], 8305717, 7829369, 3836754, 1681012 #### [facility] (DEFAULT) [address] [place] [address] Eosinophils/100 WBC (Bld) 1.1 % Normal 0.9-4.0 [facility] Comment on above: Performed By: #### 1 [id number], [id number], 5576298, 7282323787, 9392988, 4779467, 3199137, 6314373 #### [facility] (DEFAULT) [address] [place] [address] 07785 Lymph Abs# 2.1 x10 Normal 1.3-2.9 [facility] Comment on above: Performed By: #### 1 5358798, 8697692834, 8938930, 6157543167, 4797460, 1808095, 2053059, 4175628 #### [facility] (DEFAULT) [address] [place] [address] Lymphocytes/100 WBC (Bld) 28 % Normal 14-48 [facility] Comment on above: Performed By: #### 1 2901447, 5072145494, 7086738, 9166177364, 3388946, 3169492, 7175067, 3232542 #### [facility] (DEFAULT) [address] [place] [address] 86652 Darke Abs# 0.6 x10 Normal 0.0-0.8 [facility] Comment on above: Performed By: #### 1 8622607, 1460873680, 3900143, 9156200732, 3357838, 9243251, 0186252, 9576104 #### [facility] (DEFAULT) [address] [place] [address] 56840 Neut Abs# 4.8 x10 Normal 1.5-9.2 [facility] Comment on above: Performed By: #### 1 9845083, 2530158309, 6728285, 4183743875, 6441643, 9817345, 2304792, 8307084 #### [facility] (DEFAULT) [address] [place] [address] Neutrophils/100 WBC (Bld) 63 % Normal 44-88 [facility] Comment on above: Performed By: #### 1 4329738, 2231888726, 6473081, 4450704034, 2071580, 8506046, 5704784, 6917623 #### [facility] (DEFAULT) [address] [place] [address] 25305 Amylaseon 02-27-2024 Amylase [Catalytic activity/Vol] 51.0 U/L Normal 28.0-100.0 [facility] Comment on above: Performed By: #### 1 8312839, 6372051599, 3545694, 3902938678, 8329646, 6376343, 0365094, 8061040 ####[facility] (DEFAULT)[address] [place] [address] Anesthesia Noteon 02-27-2024 Anesthesia Note Patient: LIOR [...] on: 02/27/2024 12:58 EDT] Juliano Peterson DO [facility] Anesthesia Note Patient: LIOR JACQUES [...] history): All Problems Anxiety / SNOMED CT 89473832 / Confirmed Arthritis of left knee / SNOMED CT 202335246920220 / Confirmed Body mass index 40+ - severely obese / SNOMED CT 7991070485 / Confirmed Genital warts / SNOMED CT 863452989 / Confirmed History of arthroscopy of knee joint / SNOMED CT 4955419837 / Confirmed History of bariatric surgical procedure. / SNOMED CT 5829816232 / Confirmed Gastric bypass status for obesity / SNOMED CT 2090771709 / Confirmed H/O syncope / SNOMED CT 7741593548 / Confirmed Hypokalemia / SNOMED CT 97006118 / Confirmed Hypomagnesemia / SNOMED CT 593173350 / Confirmed Mixed anxiety and depressive disorder / SNOMED CT 227429222 / Confirmed Morbid obesity / SNOMED CT 932337561 / Confirmed Peripheral venous insufficiency / SNOMED CT 10038324 / Confirmed Sacroiliac joint pain / SNOMED CT 873983615 / Confirmed Varicose veins of left lower limb / SNOMED CT 003335810759809 / Confirmed Resolved: / SNOMED CT 067067367 Histories Family History: Clotting disorder Mother Diabetes mellitus type 2 Father Grandmother (Paternal) High blood pressure Father PVD - Peripheral vascular disease Mother GERD - Gastro-esophageal reflux disease Father Procedure history: CT guided nerve block (7482492507) on 01/12/2024 at 33 Years. Comments: 01/12/2024 11:39 LUKET - Cuong Chowdary MA LEFT GENICULAR microphlebectomy in the month of 07/2017 at 27 Years. 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 section (42663482) on 11/10/2014 at 24 Years. section (14014571) on 06/29/2012 at 21 Years. Gastric band (5981229661). Social History Electronic Cigarette/Vaping Assessment Electronic Cigarette [...] (FEB 26 (more content not included)... Normal [facility] CBC w/ Auto Diffon Erythrocyte distribution width (RBC) [Ratio] 13.3 % Normal 11.5-15.0 [facility] Comment on above: Performed By: #### 1 2912293, 5859668866, 7543595, 0512354766, 8923810, 3750774, 7653897, 8960645 #### [facility] (DEFAULT) [address] [place] [address] 55469 Hematocrit (Bld) [Volume fraction] 42.2 % High 33.7-40.4 [facility] Comment on above: Performed By: #### 1 4489801, 8311830748, 7408212, 1337329303, 1615425, 6259601, 0081346, 4165674 #### [facility] (DEFAULT) [address] [place] [address] 29969 Hemoglobin (Bld) [Mass/Vol] 14.3 g/dL Normal 11.3-15.9 [facility] Comment on above: Performed By: #### 1 4593354, 9944541601, 3542765, 0870929968, 0725789, 2320817, 6203997, 7626668 #### [facility] (DEFAULT) [address] [place] [address] MCH (RBC) [Entitic mass] 30 pg Normal 24-34 [facility] Comment on above: Performed By: #### 1 2047954, 8988787794, 4841263, 0102722225, 6054422, 8189083, 0100198, 1804399 #### [facility] (DEFAULT) [address] [place] [address] MCHC (RBC) [Mass/Vol] 34 g/dL Normal 26-37 [facility] Comment on above: Performed By: #### 1 6985197, 1491173741, 0241076, 8650225819, 0257985, 0629379, 0788741, 8913061 #### [facility] (DEFAULT) [address] [place] [address] MCV (RBC) [Entitic vol] 90 fL Normal 81-100 [facility] Comment on above: Performed By: #### 1 6920454, 6550256937, 3117964, 4812496511, 5013662, 1057232, 0026135, 7740194 #### [facility] (DEFAULT) [address] [place] [address] 27305 Platelet 243 x10 Normal 138-427 [facility] Comment on above: Performed By: #### 1 2168564, 0777614820, 0323285, 0774633320, 1593254, 3067399, 3327261, 9969410 #### [facility] (DEFAULT) [address] [place] [address] 60246 Platelet mean volume (Bld) [Entitic vol] 8.0 fL Normal 6.3-10.2 [facility] Comment on above: Performed By: #### 1 3544844, 9721379095, 4828919, 4253478153, 3731319, 3551094, 4997080, 4068169 #### [facility] (DEFAULT) [address] [place] [address] RBC 4.70 x10 Normal 3.70-5.30 [facility] Comment on above: Performed By: #### 1 3797594, 6057511479, 6047944, 7249992893, 6431179, 5605051, 1709649, 0941428 #### [facility] (DEFAULT) [address] [place] [address] WBC 7.7 x10 Normal 3.5-10.5 [facility] Comment on above: Performed By: #### 1 0221572, 8086392147, 2601113, 2955552790, 0660104, 0232181, 3724258, 5092544 #### [facility] (DEFAULT) [address] [place] [address] Man Diff? Auto Invalid Interpretation Code [facility] Comment on above: Performed By: #### 1 4475450, 1061229253, 9322641, 7967576803, 5778942, 9455235, 2840499, 2434666 #### [facility] (DEFAULT) [address] [place] [address] CMP Standardon 02-27-2024 eGFR Non AA >60 Invalid Interpretation Code [facility] Comment on above: Performed By: #### 1 2402961, 0804865161, 5017338, 9570452979, 9436406, 4727222, 6686560, 9931839 #### [facility] (DEFAULT) [address] [place] [address] eGFR AA >60 Invalid Interpretation Code [facility] Comment on above: Performed By: #### 1 5865206, 2793028264, 9195345, 4842897819, 5749878, 2217719, 7255215, 8806005 #### [facility] (DEFAULT) [address] [place] [address] Albumin [Mass/Vol] 4.2 g/dL Normal 3.5-5.0 [facility] Comment on above: Performed By: #### 1 3304190, 4738025586, 7310114, 7962806360, 3020660, 1060686, 8819585, 2217806 #### [facility] (DEFAULT) [address] [place] [address] 59517 Albumin/Globulin [Mass ratio] 1.4 {ratio} Normal 1.4-2.6 [facility] Comment on above: Performed By: #### 1 0402753, 1415186292, 3985565, 5647778601, 5905445, 0377781, 6482904, 0631955 #### [facility] (DEFAULT) [address] [place] [address] 60255 Alk Phos 56 IU/L Normal 32-91 [facility] Comment on above: Performed By: #### 1 7926655, 9406997077, 9278373, 5649647134, 6328145, 8807829, 3232389, 8446110 #### [facility] (DEFAULT) [address] [place] [address] 13602 ALT [Catalytic activity/Vol] 22.0 U/L Normal 14.0-54.0 [facility] Comment on above: Performed By: #### 1 9973559, 1322393134, 3426089, 3773910855, 7457487, 3190285, 9144012, 4161019 #### [facility] (DEFAULT) [address] [place] [address] 11956 Anion gap [Moles/Vol] 10.5 mmol/L Normal 5.0-19.0 [facility] Comment on above: Performed By: #### 1 8373411, 1837083403, 3431761, 5797211163, 5251163, 0523840, 0335328, 9802026 #### [facility] (DEFAULT) [address] [place] [address] 70018 AST [Catalytic activity/Vol] 26 U/L Normal 15-41 [facility] Comment on above: Performed By: #### 1 8254342, 9754304801, 0544020, 4236301299, 5629701, 3338686, 7439251, 0857207 #### [facility] (DEFAULT) [address] [place] [address] 25946 Bili Total 0.8 mg/dL Normal 0.3-1.2 [facility] Comment on above: Performed By: #### 1 7522105, 6579887686, 8067587, 3343792736, 7448735, 8246734, 3913868, 7844851 #### [facility] (DEFAULT) [address] [place] [address] 14540 Calcium [Mass/Vol] 9.0 mg/dL Normal 8.9-10.3 [facility] Comment on above: Performed By: #### 1 0545922, 5842108845, 4019355, 1210701353, 4167599, 3911769, 1520311, 4171383 #### [facility] (DEFAULT) [address] [place] [address] 78211 Chloride [Moles/Vol] 105 mmol/L Normal 101-111 [facility] Comment on above: Performed By: #### 1 3293349, 7593036183, 3576391, 3348689660, 5377592, 3830829, 3941971, 7592356 #### [facility] (DEFAULT) [address] [place] [address] 68261 CO2 [Moles/Vol] 24 mmol/L Normal 21-32 [facility] Comment on above: Performed By: #### 1 3758564, 3118507388, 2666424, 7713357495, 3455458, 6185604, 3197243, 0400801 #### [facility] (DEFAULT) [address] [place] [address] 29033 Creatinine [Mass/Vol] 0.68 mg/dL Normal 0.60-1.30 [facility] Comment on above: Performed By: #### 1 8653648, 4449577679, 8644491, 6686175094, 3582958, 8049590, 6603469, 4321602 #### [facility] (DEFAULT) [address] [place] [address] 52711 Globulin (S) [Mass/Vol] 3.0 g/dL Normal 1.5-4.3 [facility] Comment on above: Performed By: #### 1 4697859, 5517859124, 6744261, 7805901261, 4044484, 0433452, 0024859, 0443569 #### [facility] (DEFAULT) [address] [place] [address] 27542 Glucose [Mass/Vol] 93.0 mg/dL Normal 74.0-118.0 [facility] Comment on above: Performed By: #### 1 9109707, 0765093760, 1265021, 2320499639, 4000918, 9559104, 0597079, 6667724 #### [facility] (DEFAULT) [address] [place] [address] 23777 Osmolality 270 mOsm/L Invalid Interpretation Code [facility] Comment on above: Performed By: #### 1 9956121, 7270991828, 9512093, 2322785948, 2907137, 8555955, 5472757, 6621933 #### [facility] (DEFAULT) [address] [place] [address] 40502 Potassium [Moles/Vol] 3.5 mmol/L Low 3.6-5.1 [facility] Comment on above: Performed By: #### 1 5091127, 9208157888, 7825407, 2011922638, 7895149, 1928006, 1079670, 6701915 #### [facility] (DEFAULT) [address] [place] [address] 74054 Protein [Mass/Vol] 7.2 g/dL Normal 6.5-8.1 [facility] Comment on above: Performed By: #### 1 7765252, 0503616477, 1280497, 2335632627, 7819489, 5323714, 5755387, 4375086 #### [facility] (DEFAULT) [address] [place] [address] 96263 Sodium [Moles/Vol] 136.0 mmol/L Normal 136.0-144 . 0 [facility] Comment on above: Performed By: #### 1 5712929, 2201990102, 6727538, 3216144327, 3226676, 6899665, 5111835, 5282690 #### [facility] (DEFAULT) [address] [place] [address] 13266 Urea nitrogen [Mass/Vol] 9 mg/dL Normal 8-26 [facility] Comment on above: Performed By: #### 1 0753221, 8830647436, 2722244, 4113153817, 5949760, 5956497, 3279990, 5128188 #### [facility] (DEFAULT) [address] [place] [address] Urea nitrogen/Creatinine [Mass ratio] 13.2 mg/mg Normal 4.6-16.2 [facility] Comment on above: Performed By: #### 1 8238551, 5109156592, 7174173, 3104980769, 3327403, 4030546, 2250890, 8286919 #### [facility] (DEFAULT) [address] [place] [address] CT PE Chest/Abdomen/Pelvis w / Contraston 02-27-2024 [...] MD 02/27/24 2:37 am Technologist: CB [facility] ED Clinical Summaryon 2023 ED Clinical Summary [facility] - Emergency Department [address] [place], [place] [id number] ED Clinical Summary PERSON INFORMATION Name: LUCILA JACQUES Age: 33 Years Sex: FEMALE : 1990 MRN: Acct#: Visit Reason: Abdominal pain; ACUTE CHOLECYSTITIS Arrival: 02/26/2024 22:40:28 Discharge: LOS: 000 09:38 Check In: 02/26/2024 22:40:28 Checkout:02/27/2024 08:18:49 Address: [address] [place] [address] PCP: Provider, None PROVIDER INFORMATION Provider Role Assigned Unassigned Tamika Alvarenga RN ED Nurse 02/26/2024 23:12:50 Param Michelle DO ED Provider 02/26/2024 23:38:41 Abdulkadir Maradiaga SENIOR GAME DEVELOPER Nurse 02/27/2024 07:25:13 VITALS INFORMATION Vital Sign [...] recorded.. Surgical history: CT guided nerve block (4220253480) on 01/12/2024 at 33 Years. Comments: 01/12/2024 11:39 EDT - Cuong Chowdary MA LEFT GENICULAR microphlebectomy in the month of 07/2017 at 27 Years. Comments: 03/19/2019 10:05 EDT - Margaret Perera LPN left leg Gastric sleeve (7854312470) in the month of 07/2016 at 26 Years. section (83543874) on 11/10/2014 at 24 Years. section (96871339) on 06/29/2012 at 21 Years. Gastric band (1813397766).. Family history: Clotting disorder Mother Diabetes mellitus type 2 (more content not included)... [facility] ED Note - Physicianon 2023 [...] recorded.. Surgical history: CT guided nerve block (2790525809) on 01/12/2024 at 33 Years. Comments: 01/12/2024 11:39 EDT - Coung Chowdary MA LEFT GENICULAR microphlebectomy in the month of 07/2017 at 27 Years. 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 section (10431579) on 11/10/2014 at 24 Years. section (69793670) on 06/29/2012 at 21 Years. Gastric band (9232368784).. Family history: Clotting disorder Mother Diabetes mellitus [...] Respiratory: Lungs ar (more content not included)... [facility] ED Note-Nursingon 02-27-2024 ED Note-Nursing Pt arrives to ED alvaro m 7 complaining of abdominal pain. Pt states it has been going on for a few days, Pt has history of gastric bypass done at a [facility] facility. Pt denies any other complaints. [facility] ED Patient Education Noteon 02-27-2024 ED Patient Education Note Education Materials [facility] ED Patient Summaryon 024 ED Patient Summary [facility] - Emergency Department [address] [place] [address] PATIENT DISCHARGE INSTRUCTIONS Patient Information Name: LUCILA JACQUES Age: 33 Years Date of : 1990 Reason For Visit: Abdominal pain; ACUTE CHOLECYSTITIS Arrival Time: 02/26/2024 22:40:28 Primary Care Physician: Provider, None Attending Physician: Maurizio Mast MD Comment: Visit Diagnosis: Diagnoses This Visit Abdominal pain ([id number]) Acute cholecystitis (K81.0) Biliary colic (K80.50) The Pharmacy at [facility] is open Monday through Monday [...] alcohol and/or drug addiction problems; contact the [facility] 17/04 Crisis Hotline -Text 4HBXW tp [phone]. If you received any narcotics, sedation, or [...] treatment you received today in the [facility] Emergency Department were for an urgent problem and are not intended as complete care. It is important for you to follow up with a doctor, nurse practitioner, or physician?s assistant professor for ongoing care. If your symptoms become [...] so we can reach you if necessary. [facility] Emergency Department has provided you with a complete list of medications post discharge. Please inform your stenographer print shop/provider of your visit and for further instruction [...] for D (more content not included)... Normal [facility] Inpatient Patient Summaryon 02-27-2024 Inpatient Patient Summary [place] [id number] Patient Discharge Instructions Name: LUCILA JACQUES : 1990 Patient Address: [address] [place] [address] Primary Care Provider: Name: Provider, None Phone: After you are discharged if you find you have any questions, please, call [phone] ext [phone] to speak to a nurse. The Pharmacy at [facility] is open Monday through Monday [...] alcohol and/or drug addiction problems; contact the [facility] 17/04 Crisis Hotline -Text 4HOPE to 216037. If you received any narcotics, sedation, or [...] business decisions or sign any legal documents [facility] would like to thank you for allowing us to assist you with your healthcare needs. The following includes patient education materials and information regarding your injury/illness. LUCILA JACQUES has been given the following list of follow-up instructions, prescriptions, and patient education materials: Follow-up Instructions With: Address: When: Peter Booth [address] [place] [address], [place] [address] Business (1) In 2 weeks 03/12/2024 Comments: Call for follow up appointment With: Address: When: Loni Provider [address] [place] [address] Medications During the course of your visit, your medication list was updated with the most current information. The details of those changes are reflected below: New Medications [id number], [address] [place], [place] [id number], [phone] acetaminophen-hydrocodone (acetaminophen-hydrocodone 325 mg-5 mg oral tablet) [...] questions, (more content not included)... [facility] 02-27-2024 L Specimen: [id number] Received: 02/28/24 Status: MICHAEL Young Num: [id number] Spec Type: Surgical Subm Dr: Peter Booth MD Tissues: A Gallbladder (GALLBLADDER) Procedures: HE/2, Gross/Micro L3 Age/ Patient Sex Location Account Attending Physician Lucila Jacques 33/F [facility] [id number] Maurizio Mast MD SPEC NUM: [id number] RECD: 02/28/24 STATUS: MICHAEL YOUNG NUM: [id number] NIELS: 02/27/[address]: Peter Booth MD ENTERED: 02/28/[address] [facility] DR: Edilberto,Lab SPEC TYPE: Surgical DEPT: [...] gallbladder wall measures 0.1 cm in thickness. Wiper Blender sections are submitted in A1 (gallbladder) and A2 (lymph node). CPT Codes 72219 Specimen: [id number] Received: 02/28/24-123 Status: MICHAEL Young Num: [id number] Spec Type: Surgical Subm Dr: Peter Booth MD Tissues: A Gallbladder (GALLBLADDER) Procedures: HE/2, Gross/Micro L3 Patient: Lucila Jacques [id number] (Continued) Signed (signature on file) Domenic Hopper MD 02/29/24 1021 Normal [facility] Lactic Acidon 02-27-2024 Lactic Acid 15.3 mg/dL Normal 4.5-19.8 [facility] Comment on above: Performed By: #### 2 037059 ####[facility] (DEFAULT)[address] [place] [address] Lipaseon 02-27-2024 Lipase Level 30.0 IU/L Normal 22.0-51.0 [facility] Comment on above: Performed By: #### 1 3793966, 5079056841, 0849567, 7944643364, 2785623, 5416181, 3008085, 3217775 ####[facility] (DEFAULT)[address] [place] [address] MAGR Intraoperative Recordon 02-27-2024 MAGR Intraoperative Record MAGR Intra-Op Record Summary Primary Physician: Peter Booth MD Finalized Date/Time: 02/27/24 12:38:12 Pt. Name: JACQUES LUCILA GOODMAN /Sex: 1990 FEMALE Med Rec #: [id number] Physician: Param Michelle DO Financial #: [id number] Pt. Type: O Room/Bed: [facility] Admit/Disch: 02/26/24 22:40:28 - Institution: Case Times [...] Role Performed Surgeon - Primary Anesthesiologist of [place] Record Time In 02/27/24 11:31:00 02/27/24 11:01:00 02/27/24 11:01:00 Time Out 02/27/24 12:19:00 02/27/24 12:36:00 02/27/24 12:36:00 Procedure Cholecystectomy Cholecystectomy Cholecystectomy Laparoscopic Laparoscopic Laparoscopic Last Modified By: Bre Spaulding RN, Debra RN Myers, Debra RN 02/27/24 12:35:49 02/27/24 12:35:49 02/27/24 12:35:49 Entry 4 Entry 5 Entry 6 Case Attendee Dina Malcolm CST, Will Ortiz CST, CST, CST CSFMadison Role Performed Superintendent Generating Plant Superintendent Generating Plant Scrub Personnel Time In 02/27/24 11:01:00 02/27/24 [...] Peterson DO, Bre Spaulding RN, Dina Malcolm PORTFOLIO MGR, Tru PORT[place]IO MGR, Marie LEBLANC CSFA, Will Miller PORTFOLIO MGR Last Modified By: Bre Spaulding RN 02/27/24 [...] Text: E.290 Eval (more content not included)... [facility] MAGR PACU Recordon MAGR PACU Record MAGR PACU Record [facility] Primary Physician: Peter Booth MD Finalized Date/Time: 02/27/24 14:07:36 Pt. Name: LUCILA JACQUES/Sex: 1990 FEMALE Med Rec #: [id number] Physician: Param Michelle DO Financial #: [id number] Pt. Type: O Room/Bed: [facility]/ Admit/Disch: 02/26/24 22:40:28 - Institution: PACU Case Times MAGR Entry 1 In PACU I 02/27/24 12:38:00 Discharge from PACU 02/27/24 13:40:00 I Last Modified By: Yarelis Schmitt RN 02/27/24 14:07:32 Finalized By: Yarelis Schmitt RN Document Signatures Signed By: Yarelis Schmitt RN 02/27/24 14:07 [facility] Magnesiumon 02-27-2024 Magnesium [Mass/Vol] 1.86 mg/dL Normal 1.80-2.50 [facility] Comment on above: Performed By: #### 1 [id number], 4856550934, 2293401, 2725118723, 5307031, 9024592, 7414523, 6184666 ####[facility] (DEFAULT)[address] [place] [address] Nutrition Noteon 02-27-2024 Nutrition Note Chart reviewed; 33 y o female diagnosed with s/p lap choly; diet order full liquids; patient with history of gastric bypass surgery ; no difficulties with chew/swallow identified on admit; encourage increase po as rachael; rec advance as rachael to regular soft diet; will monitor po with diet advance, wt/labs for changes; follow, assist prn. ts [facility] PTon 02-27-2024 INR Coag (PPP) [Relative time] 0.98 {INR} Normal 0.91-1.11 [facility] Comment on above: Performed By: #### 1 1951544, 0260072276, 6142750, 0696227435, 4552385, 4428568, 4529545, 2089669 ####[facility] (DEFAULT)[address] [place] [address] PT 10.2 second(s) Normal 9.7-11.8 [facility] Comment on above: Performed By: #### 1 5736798, 7912346513, 9010048, 1352216480, 7332636, 1064298, 3780687, 8139444 ####[facility] (DEFAULT)[address] [place] [address] Test Serum 1on Preg Serum Internal Control OK [facility] Comment on above: Performed By: #### 3 [id number] ####[facility] (DEFAULT)[address] [place] [address] Test Serum Qual Negative [facility] Comment on above: Performed By: #### 3 [id number] ####[facility] (DEFAULT)[address] [place] [address] TnI HSon 02-27-2024 Troponin I High Sensitivity 3.0 pg/mL Normal <=15.0 [facility] Comment on above: Performed By: #### 1 [id number] ####[facility] (DEFAULT)[address] [place] [address] UA w Culture if Ind Standard on 02-27-2024 Breakpoint UA [facility] Comment on above: Performed By: #### 1 [id number] ####[facility] (DEFAULT)[address] [place] [address] Color (U) Yellow [facility] Comment on above: Performed By: #### 1 [id number] ####[facility] (DEFAULT)[address] [place] [address] Culture? Not Indicated Invalid Interpretation Code [facility] Comment on above: Result Comment: Resu lt created by rule GL_MAGR_ADD_UA_CULT1 Performed By: #### 1 [id number] ####[facility] (DEFAULT)[address] [place] [address] Glucose (U) [Mass/Vol] Negative [facility] Comment on above: Performed By: #### 1 [id number] ####[facility] (DEFAULT)[address] [place] [address] Ketones Ql (U) 40 [facility] Comment on above: Performed By: #### 1 [id number] ####[facility] (DEFAULT)[address] [place] [address] Micro? Not Indicated Invalid Interpretation Code [facility] Comment on above: Result Comment: Resu lt created by rule GL_MAGR_ADD_UA_MICRO Performed By: #### 1 [id number] ####[facility] (DEFAULT)[address] [place] [address] UA Bilirubin Negative [facility] Comment on above: Performed By: #### 1 [id number] ####[facility] (DEFAULT)[address] [place] [address] UA Blood Negative Normal [facility] Comment on above: Performed By: #### 1 [id number] ####[facility] (DEFAULT)[address] [place] [address] UA Clarity CLEAR Normal CLEAR [facility] Comment on above: Performed By: #### 1 [id number] ####[facility] (DEFAULT)[address] [place] [address] UA Leuk Est Negative Normal NEGATIVE [facility] Comment on above: Performed By: #### 1 [id number] ####[facility] (DEFAULT)[address] [place] [address] UA Nitrite Negative Normal NEGATIVE [facility] Comment on above: Performed By: #### 1 [id number] ####[facility] (DEFAULT)[address] [place] [address] UA pH 7.5 Normal 5-8 [facility] Comment on above: Performed By: #### 1 [id number] ####[facility] (DEFAULT)[address] [place] [address] UA Protein Negative Normal NEGATIVE [facility] Comment on above: Performed By: #### 1 [id number] ####[facility] (DEFAULT)[address] [place] [address] UA Spec Grav 1.015 Normal 1.001-1.[address] [place] [address] Comment on above: Performed By: #### 1 [id number] ####[facility] (DEFAULT)[address] [place] [address] UA Urobilinogen 0.2 mg/dL Normal 0.2-1.0 [facility] Comment on above: Performed By: #### 1 [id number] ####[facility] (DEFAULT)[address] [place] [address] Urine Source Clean Catch Normal [facility] Comment on above: Performed By: #### 1 [id number] ####[facility] (DEFAULT)[address] [place] [address] [place] Gallbladderon 02-27-2024 US Gallbladder EXAM: US [...] MD 02/27/24 5:19 am Technologist: [facility] XR knee LT 4V*on 02-15-2024 XR knee LT 4V* [facility] [address] [place] [address] XRay Report Signed Patient: Lucila Jacques MR#: [id number] 31 : 1990 Acct:[id number] Age/Sex: 33 / F ADM Date: 02/15/24 Loc: [facility] Room: Type: [facility] Attending Dr: Santa Estrada II, MD Copies to: Santa Estrada MD Ordering Provider: Santa Estrada MD Date of Service: 02/15/24 XR/XR knee LT 4V*: M25.562 - Pain in left knee ([id number]) XR/XR pelvis 1-2V: M25.562 - Pain in [...] Palacio Jr., Clotilde02/15/2024 3:38 PM Dictation Location: [place] [address] Transcribed By: [facility] 02/15/24 1538 Dictated By: Haile Palacio Jr, DO 02/15/24 153 Signed By: 02/15/24 1538 [facility] Coding Summaryon 01-31-2024 Coding Summary HTMLBase 64 FdkrpxbjGGr4oPk+PGhlYWQ+PE1 RPJHlC18qgHRhbL5jA3BRZPvVWv zeJHYPOMfDPhLloaRaPK6jfCYpP XJu IC8+MG0vIAHnIschrFFyp3D0hWY 4F77apj0uFGjhfJY6AOLsGlAtqk eyj2zccOc6RFggInsqFlEz SLDreD91CJI8cK39Kh65wQDxjWG dr1zhqVl0AdUpJROtZRR7jWlqNK rdc4KkEETuJ81icXDpy5P3 FPTawFbloSPeGtLkkKA6gO6qAXc pqzhtl7mfxsxcDak0su84hYBjv5 J2pEA2H1QhjrV6HCPaaFMg GjzpvPWImH0ffyeal4ftkiwzIaY aZKEvKDb8RUl7VZVbgPemVrZkDS 47WKI0KOEwlxWbW3QgRYWm cSzwJbV2i8Z9Wf7RP9NSOvugK2C NTUFSWTwvdGQ+MG57ct27H5SmOx vfOne1QRSdKKV1rOU9mY0t TOTiNLaih4D0rIA8W4FxhsYuux7 re5jzKRWhVEkqD64qiXDbr6N5XK PvbCT8BBZjfMreMwUtxW77 Oyc+XPKoiVrfx3PmUsfkt7nss6t wjHp4JpjnPMXtjwDyzQotJYA9w9 MvVp3uDPQrxVF3zBW0bL3p BaWpPeD8PKgyO218RjTztCQeBru aZ71lX0LngOO+RRLnQtj2FXBzvM zgYD6nI7TePXKwjyzieGVw dCpnWD9dJWRwpwkcCTHlzA9jKUP kC0j4WdWeShP9XZieC1TeTFNnnv zzZp51mL4tFmTuZdM6MAde K9CforW7EMWmeQGyMKhnFSU2A34 ai4V5KXEqKHMdFQG3cXG8lS5nbH lnbjogbGVmdDsgdmVydGlj FUtpRXcrA174YSTgqBupNuTjKXx uZyBEYXRlOiAgMDUvMDgvMjAyND wvdGQ+VLZnMHW6uMxwDXRi hNJnFIrwXx2xuXywlZuoVN8tXUU agblmQDSddW9gAQZarNJhjVtuLC 5uKQRwtgaid234HyYvFTE4 VBMaeZTzL4VjoP0xLnTqUVOqKYM xL9PuwEQeZDkmT736CKiiVvD8FL AahuOfK5JmVNYkwVeiSzH5 b6F1Jd0Zj0MkayknI5GacPRdKrL cQukdSVc1Z1QiRvvaxTU+PC90YW HwVX57NYt5MZM6lZctULlp RYFoE8NchI6jOjYoCPIkCWWvCdh +PHRhYmxlIHdpZHRoPScxMDAlJy NekTfmYW2wNp8rTWWcVUSd fZlryMVnYwDpk6olBXDnHXewZV9 gcCyqT1NfoIV6HCSlv3d9Iu03O7 6tQ0JjqHF+AWAdaKY0xUG4 iV9cUcEgIcQ5DOsxQ683CuMwtJE dOyotk0gah8ldpPh5FrR3WBWznk BlrYpnLJN4e1UxLh74Q10z IHdpZHRoPSIxNSUiIHZhbGlnbj0 mrU2iIq3+QFOxnVO2lUE6xB1oLu McGjO4BPhcX005DeYygWBc Luxpf9nmu3gnjBg5FoUtTWUwdrY fhOioRIY3h8JdHf61X5QroVxlx5 CePzh3js69tDRjl5S5aMS7 Q3MbNTBdtwrgsBJrcYzmGR2gTAY mwgmoETPteX7nZFRrW0r1QqIgVj P0JYwuV1UxuuP6TLMsvSJi RWGexWUKoP9uolxjl1hdjmsoVfT vFNNjJNp3OIc8FLPmgLgrAyDyWA V1JaV2MUF7oJWqzC1cwJvd hzlesQ7cQwz+QSY2xTXwpKMQGS9 lOjwvdGQ+SEKaKEN2fIsyMUwaBU BzeR1aGOOaI6a2TxKcXqC3 UHzkE5KqbwK8WSEkwVCkKHPhxAK HnO0obwbva9lclwsiHiXuTXHzEC i8FJp7RICgvRxxZvXiEVI7 FwZ2YLL7xLBnrJ1fuNgumlhcoL3 wOyc+JjfnbCcfGPW6PLm7J7FvXs g8TQPelAdxOH3mhVArZRde Po5eeNklqScnBB4mUSBzcvjom38 1PaDyd2bzTFGfvOZcBPmsOZP1M9 1zj6O4QJVeTCUfCGD0rAM8 cW2ruLevqaczuPPtvFupzoTefHv zAQyoZIbsK114ZFQogSbcMuRiFX x1G3JhNql5DJXkbKgmPE3x kYXsEMfhNe8vvXkmxSttKK3cXDY nvcwhc430CoEcy7ecJUJkbMYkKT raKYG5G21bn1V0UQJoSINn KCY4kEX1uF9kqKwgqvmleEExyXp pafRjkCmjZXvoKZjwJ834KJOfsJ jiOiYbbRc0V0MrLot5YFYn pZdqBP3ulKTvJVuyVd9krKxjcSs fBQ7mDYQqgtpeo629GrTdx6azOA ZbsUCwSWgkYFB5W99by2F2 IIWaQGQhAEK6aKJ0nQ9lfWaftkf gbGVmdDsgdmVydGljYWwtYWxpZ2 46IHRvcDsnPlBhdGllbnQg QTigDJx1W8HwEfgmzYD+BY85VSS oQZ96wRYqnRCbv6wbtUk1BwSuRZ EzWHV5uWktPEybt2UkBLHs U66xuNLft0D2JQTnxPqdpCMgHhM riHU2fN8zJRlyodnmc8ytjugsBt ttr1jvxd29eJ80D70gNTax XXRzHXOlEKYjRJHfcYaldh0qdH9 wIi8+DDIptXF0iXX1lU0cGASoBy B4KFijZ290YtJqgPGoSfbi n2uqd1ibxXi1XyB3SNEaoaVmfPy mWRX2n8OpHr13B78yENtyCITzGA YtMLYaJSGabLqhqe8dlH7l Ii8+AKLmaQZ9eSV7mJ8vFeBtBjY 1BCroT169SuAavNDhPmxqW23pH3 JvdXA+GABlCtv2NSXmpEno FM0wrOIxKJpzTs3rSEF3DyNlZjO fFQsbN1DkZOIegndxlghewLW6XA EvDUDgpB78Eu8slGyyEBUt yEAVqQ3tgjppn5oqtrcqQvVmUEK vPIs4EPz7RUFgqSedZdAkAUM6Ei D0IVW7jRNvuO7gtFzqnird lX7iP9IpLMNiijspLb81aF4hWdQ cFqF6BBahYff+NqEUDdjtV5YZQG cDUyGIKLV0P6GnXzn6JVOm wAirDU6aeDKwLWvuPd5yoKwtcPr rBC8hNWZmqxjaKUAceP5wCFXsyY BqbKsgZW9aHWNlzukql882 ApFgYUO8URYsuIDcD7LgbL4eAgU vKXLuFBXcD6WnsFCbMJtfE029LN ddCtU2FFLggvVeM4QxPFMd iAjzHrJ4x7O7Gj0eGG1iPi6cNEl 6ZC07XR38rRRln0P9kYB3O8TfOG YrhurbmshamSB7FPBnGGMv hY33vHGtODdzPv8nl4T8z846CGA vMQJwwN54Up4svFmhMSJhbOJFzM 2uxwnhh8vpvvthGjVmQXCk OMp0LIv6FWNhnGxvCfRvGVH9WcG 4UMG7xFMlcD8ncUtpojyodO5pYp c+QgIwDBFnduH8P6UpTnm9 FIKrjLesGH7hgBGmKKodFg0jaDa mwXliPP2cVEKedaysTERilP4hKJ FktKDisJivYO4cCGGusrnz p800HwEqDIA6JLEaeXMcD0PoaN8 hPgFeDEQwMOSxW0IxtPXaNEqfQ3 72ZIfmNxB3XUPowhTtS2Fy IMRheSzgLnQ1k3J5Yt3HGD2TDKG 2I8PyFjb9KSQkoJukLL5raTErME ppCc9yaEyqhLbxLM4lPHXq djhvILMhfV9dGCXrbXRinNtuTV8 eTDEvnznez863EqHmIKC6KEKbaX PuH5ZnhL8fFmJnLIWyPXDs H7YioJUiKQamS011VTerGhN6ARW wooXsY2ZfDMOggYkhIiP0y0N4Em 5PUDwvdGQ+ZM23sj94F7Zx YsxvCtv0POGdFKO3eYH3xJ9cUKA zJPsax8T1kPH2N1YzyyBtog5ae3 cgURJlQXiiI13bwDKpc6W5 UHUtcZO4VYCglUevZrQvjZ47Qku +OSIeoMlwh5BaXlmrl0ans2xpqA r7XyZzHFQozsSioYalRJW7 u2LgEh42V82aUAhjIUFwXWWmLSY cHLTbkEkxhy4jkP6cLp4+PGNvbC V4wBL9kI6yXbHjOqZ1OOjk Q781RqGbiVWqOdvzi3qin1qqjKn 7LvAoVDKjvcZpdSpnQDW7c2BlKv 16D0CnjFuod5PgNlw4qy36 bWFsb1U1tMC3D0DkQPOcjsburPM vvDrvQL7wQSIxcrrtOLAyiR0bZQ MhD3x7AqGvQbF5MXmbK7Gs maF6QVTjtHFoPWWyhHJQwM1arke ie5qdzcisIeJgZOCtRWs0IEe6QE AmhOrlYxNtORQ5OpR2ZEY6 hQXbvW5ajTygwpghgH1kJqt+UGh 1j3dnsYPpYF2fwQI6RN45MZ61rG Kvh1I5cUB6Z1WiGLSigtmf ecgmuCM2KZSfMNMvwW10Eq8ptQr mAq7hHIAwWKT9ICRzxVKeU1OamZ 3iFmKbVPAzANMpD7QfoAQk RXxmN947FEwhQoN5BPZzgzFpF3Y kSXOqcHokNgK0c4I2Nr9HES95AU 06KD22kOIkd1R5mLX2T7Pn HJTithafpcccfKE5JTZjQFUqjC8 5Og3txMbdGb9xFQOjTOX8JGNgzP HzC0RtaZ7lFfUkRWZvBEDe I4CtaSNwIFcvR249OCjfWmA0MMT rmjMgC8TuHFVfqAbpHnS7x0V0St 0FNi21AA37IY79oHMzk4V2 zSS1J2SyWAYeaxaonfileBZ4GBH yQMBycC26Zr7qfGscLg4yATCbMS W3WQPvvBOoU0ZihB4yAmZp VUAtFNKmM9OknBMyECkgC510ACb eHzU1PIRsnxWsW2BqDPVzhBohIe T2y7I4No0AQWumhip5F0Uj PjwvdHI+JR01KCPcZV61dQEzsGL xe7tbuMg1JqWdDKUkLTY8lOfiFZ vqx8KrBDGvK33cwZQdm4Z9 IGN (more content not included)... [facility] Progress Note - Provideron 0 01-29-2024 Progress Note - Provider [id number] [facility] Coding Summaryon 01-22-2024 Coding Summary HTMLBase 64 FbmiqrzgWVj5hZs+PGhlYWQ+PE1 RAEAnG88clAZzxO0nN1HJPYzPLn giOIDOLVfWXbVyfxOoQH3bqOQuA XJu IC8+SO7lFKZuUwitpVYnu1Y9iQF 1V11xux7sJSqazSV6BROsZlCfdx tch2pedQq9VLalHywoEfBk JLCxbM30LVS5hK56Wa01kVPjrDN qi6uynIl2HqAuADEePXH0zPywJC lbo5KfBCGdO11omZCxh5C3 DYAojIuhtEHbFcDlgGG8wL4gNNk bwfete0fwbzlvQxi4wb57yJSlp8 M0hFT3Z5WmhdK7HBSmjFKf BsmnzZIFmR1bzopxa6pdjijfWfT hQGIvNHa2ZEy2YTFobSgrXsXoEA 26ULU0WCYnuyXbE2JaSCFn nBhlYdT6t6A9Hf6AH0KZNlmjR5L NTUFSWTwvdGQ+AL00xw22J8IgGw ztKdy4KDBtJJK0kTW8pB3n CXQiUUbwb0S7jAW9G4TvwnZyzn5 vx3xrIDSvRDcaE52olFOjb6Y6BL FuoOR7DKCydMhkYxIwoS83 Oyc+JSNcuAacm7BzImnpy4pnw0q aqEo8HwikMCTayzGpjNejSTZ2h1 KxLz3zFEAbqAI6uZS3fZ7b DzRrRkN4QUhvZ311GaZuzIGdMix oP95vA9BimVN+UEOlQfn2JOAtkQ gdJB4dL3DoYNHfmwvtpAXf yTlgFC1iBSDcfnltZIGheO6cNVU eG1i9ArTwXqN7AVexK0YzBQHqnn mgEm99nZ5yHzMhBmP1PIqd A9XyjkZ9ZBBcrMRvJQonKNW1Y72 la7V2DEPeYAPsYRR1vMG3jN3zgA lnbjogbGVmdDsgdmVydGlj QFowWHfcT710UYItgIxkEuWhLWy uZyBEYXRlOiAgMDQvMjkvMjAyND wvdGQ+ROXlEVV4pDbzEMWi hWGsEHkcJk8oeSkyaLtaMA6sBMT vpvoxMWPdeW8fZYHicVDfeFxmAS 6mEYSogoqvw907WuWqQYC7 MXVraYXaD5DgvI8yQiRlZJTkAWA eV5UkkZExBIkkB568HWqeRiD9FB LtqoMiY1ZfUQEqeEpvMwE5 o2P5Fs5Ll5DzxdrtP0WgkNRiQzY uUrwjFUp3T8TgKabiyHB+PC90YW BfBL92HIf7SHD5nGooRNmg QXSiU9YfcR1uAeAlQTSvZVJaSqh +PHRhYmxlIHdpZHRoPScxMDAlJy BksWkzVJ9iUb6oLCWkNPLl fJzjmCBsKaJzv5ffBJNcRMvsYE8 odZicQ6JmkTH0PJZdf2h9Lz75T0 4mO6VmiEO+AKRhdFI4ePN1 yS9tCiHtSiZ6BAmsO227UwRjiAJ hTuxby6azl3hmjOs6HtZ6TFJtoy StdJjtSTP7g4CaWf16O54p IHdpZHRoPSIxNSUiIHZhbGlnbj0 ojK6vHp3+CDRqnIT2zRL3wQ5fEy HvQlT6WGrtY529VeWrkEKi Nrzlq5eah3qpmCo6MeBmHBAheqC gvNhkFQK5d1FcHx61V6ObzSmpp1 GkZne5an97vJGnh9P3bQD9 B1DzVZZgtbctbGQwiOnnWZ5sUZB rsgrsHUTgqV7dGGQtC2i1LtXoUc O8EUobZ9AejlM9UKLgdIJf CGFypGNQvD4itsfve1djkjrfFtN cLRKaBYt1NMd3YRCgpHrnUmGrMG Y6ZdZ2LFO3rJNznB5lcIzc hamwxF1vPxp+YNV9bHDefQWDIN1 lOjwvdGQ+VNKrUOF2qOaeLMytOR AtsU8sLKIdW5d2JvOaRrJ9 PDmuB4RsfzC7KWLekXXqKYWnzUF WrX6xzznki4ifcpxlDfCbVPCdFF p6JVp9FUGicAtcHzEpWBK6 XiP7OPT9dCNmvZ5mzQfdehhfaR3 wOyc+QzsoyQirFKI1SDt9E1InPx i9ZGNozHpqIU1kgPDxWHce Ez9vfWxyyPkkMS0eVUMjaqxdh43 8KpFvh6cdAUPxtROySCeiLRN2T0 1yk4J1NIQeGMOtPFA4sAU2 gZ0sjPlwrdiloYJzeRjrdtFwbVv wMMarKJdcH040LNHziYgqFjMjUC t6X4HwUpv0MJUxpCkwXO6f zCHaQOlzQf0ovWihbGorMU1fOXH kssycy070OlLdq1slGYWrpATeZU piCSL4D73is2D4AUEdBPAb SRE4rUJ5hR2geMgnfxqzjGZgsRi zflGcxWalLDdsAFiqM812RYEujU bbMzQiiBi8X0FcYms2DOSp lUkiYM8wmKUpYYfoOd1zcVutnYa mIU9sDKHtrunxu028KlGfi3lkZO GgrTNjCXpuJZZ1J28li5Q3 RKVgXAOfLVM6cSF3wN0zfJjyvob gbGVmdDsgdmVydGljYWwtYWxpZ2 46IHRvcDsnPlBhdGllbnQg PYmpGIo0Q9PyKwzmrPF+SO80SUC rKV59vDEwvYXlu4kfqHl4PdHbQR LfLNM3vIlqNMclj1OgVEZx D46rqUElh6F7ZGLnlJhnqITjAcJ jqJN7xP8kZCtovbwky6oejjhwCq wfh6gggw55wD70I30dGMzp OIObCZMtIWNkTMZdlDnhvk7chX0 wIi8+ZFLqfSK6nEK1mH7iYEPqJj B9BJmaQ836KyVzxTVaMind j9wcv7rvqFc6TkW2KLZguxPaeIt eDUX5m0ZeKu40K47qGKptAZFlHK VdYXDfYAXkgKckdq9uvU0y Ii8+GQEhvLC8lRT2gZ3nCbYpMkF 0IJfsS079AhJjvHCrKwwzD96xC9 JvdXA+QDBkWse7YKFhgWmz TL2tuETxIMlgUu0eXDP6BeCsHkK jGDpzV1OgABIziulwzyqtpSN1PX NzDXDufB84Xs9ovOnoFVQg zLWKrW1gpkfya1stxdsuUuMdWJD aDYt1MLi4IBPruAvhJhAaGDH9Cf G1OZX3gYYcqP5tfJywqsyk wR1kL4JkKKNosppeWx26pZ2uNpQ qClE6BSmeWhu+UeHBQijgY5SYDO pXAoRMVTP9O7CsPje2VSDy dQojNO5dhBWhVEnyVx0bkWnoiRn gOR1wCMUbahloKZScwN9zRENmwC JqnRddWT5eWSBvjdpka783 QcYpDQV9CCNygRZuX7CdiA8rQjN jEKGlBDMpF8GooAGlRBsyK154FC kvSrM1AEMzvvZrA9SfGOAx tXotPxF4v2M7Bq3gBE5aKh7zAVg 3QS39RD05rIMit1C1cLC9I9NcFM YvtgesqgtebFK4LWRsTVGz pP68sMOdYNzbTz5rf4Q7c493EWQ hGZYipN66Rw0zxBacODVjhODWmH 3ttjayb1dltpgbPqIvPRSp GSb7MBp7RUKloYfmLnIvMEF7CwS 7UNS8lYKtcQ8eyYaqghnvjY3cBh c+FwGiFHGdttC6S4JxCuf9 XHVjqUlgYU3byBXsPFkmYk8njYt nnKunXO4vLGUkvmnyWISwxM7fZP CijOFwjGyuKE9uGMWkzatu q349AwBoBWB0DEOsxNTiI0SnbM1 iObVyRKCaAWLpA4SseRPcUAwwP3 47WKgkSwH4DRVrvjPoI6Nu VXMdgQreCyZ5k0C4Lj7ZOB8AFIQ 6U5CpJzm8TKMumHicLY4hhUIuGL ibOg4yvGeaaRuxOC1iKWIy kuvxPYYjoV6pTTFusUPglTifJC2 sSPJupmoyh659BfPiQMA4YDYlmM TjL1UzgH2qGdQpGQWuYPEn X5WdbXBcLHprP402TZrgDrF1ODR eziVyZ5DkKEBpyYghFeG0c2U5Bt 7BXOjbE3OeC0EbrAtvbWZ+ VE74mu57G8GfEswuOxy2XRGzGGL 4qWJ0rL0oHRSzSQpvw7J5pHA0U2 OpczYwal2qv9cfKRHkSGqw T04isTGvk4W5HJErlMU4AFSfyBo hOuLlbL67Vnw+DVMsqFbgn3TwYx xlf9ylu2lmmAf8ByQmGQEn ppUlfBkbZYB8d3ZoUz59F18tOXd sAFHdYEMyMDYrUDMryPtzva1wsX 9wIi8+AVNeoAJ5pMV9hE7u QzYnMlP4YHmvG058VgRlaCErQrg oo4nvh2nxqEy8XdPjFUNgzjBzqG heVEY9f9PxNi91D5BfmGmj w3FcXiy3pl28qMIrb6Z7vVE1R6J cRGXpuqrpzBQywAxqGO4kROFnlp qnYUAzoE8vLBClV6a8UtWs GlZ1IOjkU7QauwP3ETNzuOQjFHX yeLWVnA9eqztsm7rpjylqJaGwJB ObDAi3EEz3ZAWxyJcsGxEt QXY9KwE2ETE5mQZmvX7uxUzqmgg dgD7bJzs+TQp4t7jqhGIeKK7geZ P0CN19LZ55tUWri8U4mGG4 J4NwOGLolvaypgkuxLE8LPHlWHW pkK41Rj2xfUxfTu4eFACwVNC7WZ CspJXeL5UwjW6hRvXgTLSd REDkB9OyoTRmDWmoG630SNptEiF 8EAXoftSaT6OjFGBhdYojLiJ4y5 J1Ce4SCW15YB02BO78tZAv c6H8cWF6O5RvIFWyrtpawxkbiWV 9YMUlWYVhcT86Bl0ejYqmLz1bJC MhUTL0PGOmpMHjO3SasI3j VrHzFKOmDNRoH3JikEIzOXpzW56 5QDjvGtV0RPOihyRcG4ZdFTVxxH dpLyO1k3S6Hl4CUo82DR91 JO06nPDpv6I9dER9P8RaLISnvoy kyimbdYD1YRWzGAHlqY06Zj7pwL bzGp2dQPMpDCE5UNOfsVFg T1YcoC4gFyWcWWWyORXuM2KytLD yUMrmY934ESkpLfR4JPBhokNxR7 CwSPDxwMgmFbL8x6J1Ka9J JCsuyiu4G0VgKlfwxJM+CP40GYE tDK20jRDpeSWsa1pchFr8IhGyTE DpGFQ6aKwrZSmkj1FjFWRp Y29 (more content not included)... [facility] Coding Summary HTMLBase 64 IwsbhvumVYg7yBm+PGhlYWQ+PE1 HVJSyK53tdJRrqL2xE8RAFQvMDm oiFYKVQAdSHkEnvuDjAB1mzABbQ XJu IC8+YZ2wZDVrGbsawMOag2R4kFB 1D57xvh3iFSnmdWP3QOIxOoRcwg bww0ekfJm7JGuvCeeyDkQi CGFniH10OST7dM02At98nGBtgGG bu3idbCf7LpLnGLHeNSW3iSwuZZ wlp0DdNSRiQ95crFBpa7G1 YWEmyKuteIFnCxVxeSK3qY8vUVu roeekc7fjmhnxUhe0zd67aCCia5 L7uYT7C7XowlD3YOOfmEWn WqfjaOHJrR6wjytem7jnmogvYzG aBZCdNMn7AZq1CEAewCfuKnSaKB 52MIA7ISZcsyViN8NpTCPp bSxnFnR7k3A0Fr6PM2ZYFhwgY8D NTUFSWTwvdGQ+GO46ya74Q7LoLl zvAbb6ENOhIXR7yUB9pY5q DNZbQYdbr7Q7kCE5C9UuswKofw4 gt8npPWPpDXekS94smCCgh1A1SP QfnAP4XPMlaQsqPpQjiB32 Oyc+HARpbHqvm4BwLexng5ipy8o pcFz3UwenIVZzujLweNhvUGA5t2 QfXq1vSIVatLW7hFU7qP0p BjHeXbG7POnlR662VoRlnCCsTdu wZ53nT1UnzEI+NTZoWgn9CZYwoH ddLZ5pL8IeYDEybbawxIFs wEzcYF4kQYUyxgleFIOxiD7oBQD uF1c8HsTgTdX8AMieK4FsLEJika nnJo01aC3cZvRsWjA0LRxo O1YlxsA1MYXgcDVfGKdfSKA7J43 hu6O5WXHbXDVqOVO7wDC8vH0cvX lnbjogbGVmdDsgdmVydGlj ZZnbZVfaG895GREsrMnmLzKbINk uZyBEYXRlOiAgMDQvMjkvMjAyND wvdGQ+ZMFiSEC9gHkdGRMn qXRtGTalMo2xcUfukAarPU5aQNF rmdanHWHacO1xXPMepGZljSbkRF 7hJJJpxrpor945IfKvXHX6 ZIJxgSIjU6MmaH2rDmLjOOXjXHG tL8LsnQKsIErjK154EXruBjC0UF HatkZcI6BqBNNtyCssBnA1 l9A4Pi1Ql2YlyveyS4LmvLHdGrD bUurtEZo9L3EqIqfrvHU+PC90YW TtDH43WXz6MVZ3xOmsHKul ESYeM0MfyZ5sPjTvPAHyCUJjInv +PHRhYmxlIHdpZHRoPScxMDAlJy PwcMmmWV9lWu4qYRQhVHTr gYxvwCXxDsUyl0sgNROeUFlkLE8 ouQrcM0ChlSS4OMWeg4h2Md64L1 2kJ9UkjKX+HTBttXW6gIM9 mH7oBaIoMmV4XIcuZ294InHysYE aVlwid2onj3zwsMi4XjA8FGIcyh XaxJisRKO1x2KfWi13C01q IHdpZHRoPSIxNSUiIHZhbGlnbj0 vxM1yPn8+BWJgxIB0tVC8xQ9wCd CuBqF6XEvwH364QiYdsROr Rciug2itk2fnhRa0EcPwTZOwoeD spGlhHEH7s8EfAd20I9OqfNnmc8 GwZgp0dj57nZJou2C2qMN4 U2KoWBRhcbthlSGlaQayBC1cIQO blfshCZWkkF9kQWFnQ0x9DgLmWb F3BZpbH1UaqfG0DWCucORq CSDfhSTPfO2sizogf3zrveogPdZ dFXBtOZu0OXg3NKAsiAtvOxExUT D9ExH4CAT9kZSiiF4luVpt jdwbnG7dPdm+FQV5oMKyaEFEWR5 lOjwvdGQ+WNMkDTI3eJqeOXmsDX QzaP0wROMjT2m6QuUaWiK2 FUewO0XjqdQ5RTXtuLUgRHHimQX EpI1nbucxe4hsblcoVeHtRAQjQL r8GUu7MRJoyCknIfEhVMG3 KyW5ZDU6gIWimA8ubJsounyieH0 wOyc+OwbpeVprKRY5ZYe5X4NdPy r5DPJzmKivOY3ovMDzKUpp Ck3wbXubwWfgXE6xFTElxbrfz05 7HzKrf8qgDYJxcJVmYEqgYJV4M6 9tm3S6EUTfLZGyHCL1zKW4 yQ9prJclfgzywUHorByvoxXeeBp qCHurVKnnD648MBDxaJhmQzBgNC d4T3OnKnw5YAPxrFzdZC4c jYAvUIiwOo9dzQgjxBsyFS6bMTZ mkshjd390YfHhg4hnNNGuwASxWB reRLE1X60go7G6KTEnMIXd KCL8qSL2lL2zkTygsurylPDmfXi wjtAyrEcjGCdaMMndJ278NKTxaK ntJbXljUh2B5PyDwa9PUWa uBfmMC8csSChIWbcKb8owKpbrHk uJS5nYWZivroxy156LaZlh1pvOX IifADnFSttBRS4X87gn2K8 XNYrYRShDQO9oGD8vZ0otXxdroo gbGVmdDsgdmVydGljYWwtYWxpZ2 46IHRvcDsnPlBhdGllbnQg RWopMCk7D6RlNnnjxGQ+JZ12SWL bFB91xSAceHTll9uclGc5PnRnUR IoXCD7mSzjZCzii7PzLWYu E01fySKaz8P8YZKpqAepbNQtXaR rfCO5uM3zPBopesyns1qlhfggLq xhw3nbne57cE24X42wNFzg LSUqFZCeHGEiNGZyrPnzvz5qtM0 wIi8+DRIrjFW4xPI2fL7iMWUqOo H4UPfjZ341NfLtjPRqIwzk i2hyw5nhfRt8ViP9MQBpyjNbqDc zFIF5b3VpWm15Q42aNKwzNDKdTJ VcSFNdPVLiwNuqry0bmR0g Ii8+NOFbxII9aNH4fG2wSfEzWjQ 9PLqxY578TkThrLJgXyziL99uP0 JvdXA+UYXtNyl4RBFpeVvj LM3qoFQaIOgzCi5tIBE8OxLoSlQ bGBawO5JlHPZjkrhdqrhxbAM0RX WlOLVrzG69Bv0tuFpjRHCe zHXTnH7aecmoc4deefwlJyHkYEP nEZp8SGs6CWKkzBtsXoJbDZN1Nx F1SXN4oFLnjG1etNovlekz gU1xM0QvROIwraajSm37aA8pTxQ cHaT5GJzgVfl+DcQMAakvQ3GVJZ zIFyYBAPV8R8GbAci7AOPu aZmpAW6qoJAbNNwiLm9svFywoDc iIX3dAIXirbdpMTKauA4mOVWbrM VwiUejMY6uHOMceqqva418 DvDcTRQ4LPGdqEQjJ6LucI7eWkZ qFGNvRADcP5MrkCSpUKtwT695IF clKsJ1RKSacdSwV1McWVLn vNjzPsP5k1J2Ce2qSI4sIa7pFOj 3RD87OE80nDKar0B7bQW0P2LtBS YvnvasolmgvDR4UNRpULHw aR03oDWaFJgfBo1lo1L9q115QOT uSOGafE05Tf6riXkkXIVgtGSXbV 5vgvyay2weueweOnKdQMYp DTy2ZGg8NBZsxSsdXiZlVMW9VxA 4WXH0nJQpqE8omEpnogtmjS7wOx c+ArExGHRggdS2U3OpIvf1 NIInwYxmYB6akCUaHHhvMe0jhAb vyPtjFL5gASTbxecuBETqtT4uCD HxmTAtoWrqIR7bFTCodpzb y634JlGzSKP3DETvaAYgZ0YnfY4 nVfZkNMBqLFJoS5MwkWWyHQrhM4 44QWzyZlS8QLRdtbQdI2Lh JOInuOtgGpQ9j1I7Pv3KBL3JHZA 3A1XaFdf0KPZklYzbWS4irZOaZK ofZr6jbTobwVrzNB5cBAAp paouOHPqiQ6gCRPmyOIvvJujAC5 kGZXsgcccc066KeFuWYH3CQFgfP OhO2VzeT2hVoXbDERiHNZt D7FvuZMzTEdfO725VChxEhP5ROV kskMeZ3QhCONhlYsiXlJ1q2I6Rv 5PUDwvdGQ+LU04vr17T6Yr RffzMqs3QZQbYWL0pEF9pS8sSYH jIAvza5X3gET2J4JswpMdcw7wm6 mjHOVoTKcsC05fwGAsv2M1 DJUelQV1KVTtfXeyQmFewD60Sig +SEJiiKamt6XiUjrnf7weo5pwbD o1FrZlNCOmlxPavGxrIAY0 u3XfWa62B79fJVrhUSKoNGGtXWR wHPGujDzqfw8rqE1vPq9+PGNvbC Q7nXD9uO0vEsYfWrV0XTff Q418YiSdmFSaNbaul7kml7qunUj 7YbObRXUlncSppCaiAVE0l6SfGs 65M6AyxHyew9CkGbx0rt42 vHUid8N5jCD2U6GuPFOufszktBU jmGrgZI0oGOIwspsySPXqeG1sRQ JoE9r8CfKqFkW1EVijL7Zq bkJ9OSQtqHGrQLGmeZAVnE1wfwa dm4ktzjorYzPqVXZrGYn7GRi9IW UugEknPmGqMNR1OdK7BTK1 jLHspJ1gvWjdytbarI6cVxq+UGh 8l5hbtVVtVF9ruQV8VD83AV38zO Jii4Z1kXP2I1LdBKCprfhl fmzjuEL5LQEzTPEzbJ17Zv1nzQd bDk9dNEBnCPV6NOOjhACqC7RbgQ 0nOcJdBEKcJYEuU8ZjmQVf OEapK403XCryCaQ5TXZnmaSjO2Z kRWRxtVjrVuX4n7D7Ko4MJD26BD 18NT30xSNyi0F5mUH4T4Qn TLIuhcucmhfnvDC2QXWeULOolY3 4Rd9otSjoVh9vUCEpBVZ3SJAomI TnG8WqvN8hZcLpWFHyBLDa F0GdsVFzGMerU973EXoeBhD3ICI usvBsD3SxGMTowPfnEdC7i1B3Yu 7QXg28EX50BW32mZHtb4B6 xPC6V8ScRCCmodhresizrUG2VLG fWHEvbX97Hd6djEtoRz0uCBMxVP O6CFYlgLLlW7UhxZ4yKmPc HBScYQBdB4HbwNBvEXvcX846UTs oIdL1EJRdvaNnJ7RqGRBzrDfqWr P4c2V3Os0ZZOujfyu1O5Kr PjwvdHI+GV12CQFiGE77kZWlfAL lz6jiuLh0SxJuNMIoRWS1uTmpOV wnw4RnYAHzM67wbWTfj2S3 IGN (more content not included)... [facility] Consent Formson 01-15-2024 Consent Forms [id number]#1.00[facility] Consent Formson 01-12-2024 Consent Forms [id number]#1.00[facility] Controlled Substances Agreem entson 01-12-2024 Controlled Substances Agreements [id number]#1.00[facility] Inpatient Patient Summaryon 01-12-2024 Inpatient Patient Summary [id number] [place] [address] Patient Discharge Instructions Name: LUCILA JACQUES : 1990 Patient Address: [address] [place] [address] Primary Care Provider: Name: Provider, Loni Phone: After you are discharged if you find you have any questions, please, call [phone] ext [phone] to speak to a nurse. Discharge Diagnosis: Prescription Information: If you have been given a prescription for narcotics, seek immediate medical attention if you have any difficulty breathing or any sudden status changes such as confusion and sleepiness. If you or anyone you know is experiencing suicidal thoughts, mental health, alcohol and/or drug addiction problems; contact the [facility] 17/04 Crisis Hotline -Text 4HFNM pt 385359. If you received any narcotics, sedation, or [...] business decisions or sign any legal documents [facility] would like to thank you for allowing [...] for Disease Control and Prevention [facility] Intraoperative Record [facility] Intra-Op Record Summary Primary Physician: ALEC PATEL MD Finalized Date/Time: 01/12/24 11:47:08 Pt. Name: LUCILA JACQUES /Sex: 1990 FEMALE Med Rec #: [id number] Physician: ALEC PATEL MD Financial #: [id number] Pt. Type: D Room/Bed: / Admit/Disch: 01/12/24 [...] Sara L RT (R) ARRT Role Performed Grizzlyman Grizzlyman Dairy Feed Worker Time In 01/12/24 11:40:00 01/12/24 11:40:00 01/12/24 11:40:00 Time Out 01/12/24 11:46:00 01/12/24 11:46:00 01/12/24 11:46:00 Procedure Block Nerve(Left) Block Nerve(Left) Block Nerve(Left) Last Modified By: Reba Liang RN, Kelly RN Weisenburger, Kelly RN 01/12/24 11:46:22 01/12/24 11:46:22 01/12/24 11:46:22 Entry 4 Entry 5 Entry 6 Case Attendee Mason Garner RT (R) Dina Malcolm THOMAS F MD ARRT [place] MGR Role Performed Dairy Feed Worker Scrub Personnel Surgeon - Primary Time In [...] ARRTPatsy James RT (R) ARRT, Dina Malcolm PORTFOLIO MGR, ALEC PATEL MD Last Modified By: Reba [...] (more content not included)... [facility] Pre-Op Record Summary Primary Physician: ALEC PATEL MD Finalized Date/Time: 01/12/24 11:49:22 Pt. Name: LUCILA JACQUES /Sex: 1990 FEMALE Med Rec #: [id number] Physician: ALEC PATEL MD Financial #: [id number] Pt. Type: D Room/Bed: / Admit/Disch: 01/12/24 [...] Signed By: Sushila Quintero RN 01/12/24 11:49 [facility] Patient Handouton 01-12-2024 Patient Handout [facility] Test Urine 1on U Preg Negative [facility] Comment on above: Performed By: #### [id number] ####[facility] (DEFAULT)[address] [place] [address] U Preg Internal Control Pass [facility] Comment on above: Performed By: #### 3 [id number] ####[facility] (DEFAULT)[address] [place] [address] Progress Note - Provideron 0 01-12-2024 Progress Note - Provider [id number] [facility] Coding Summaryon 01-10-2024 Coding Summary HTMLBase 64 TbramvspTFs6hKz+PGhlYWQ+PE1 EEJXcQ21uvKTgzG0cD0HNPTfGOg mpPPQDPAoKJkOkhgHrPH4cpMSxX XJu IC8+LR2xYMFwKunbpEXqz2G5aTB 5L47fgc0rMRglbHV3BNGrTbCoun moz2eiiFn7YOonJiqbLzRo LKUfkC81THT0uO24Xn25lLGitPF wo9dgoXh2GyFoDWFiZXJ1rDhxQD ijg9ZrJZEbT28pgFXlv1F8 TUCxxNkktAUeWnGzcPX8jY2zANp kivdac7iwurrkMrs6ko87jYIyo7 F9zWB6G5NyfbK3XWFcrXIz FcugpUKZnG7vizmwt9dkosaeHrH eYEZgMWl9PIr6KWZdvPtxLqNwND 47RIA3OLXvkeZaU1UpTZDq kBoyZcI6b7Z0Kn5KW7XJIvigT7E NTUFSWTwvdGQ+NP97wi80Q6JkMu vjEwg6LMFaUWC6cEI5oV0i WLMcOHbkn1D4hTY1Q3YtlxEmpy8 ks0peMGHiVPodD31hyQYak7Q3XJ MovZH2MOPggFdcFjVfiY43 Oyc+QXMohEjrc5KfXojap9jxh8z tmJy1JmnuUKZprzTtiAkcLCW1p6 JnCf1uGVHadOT1iOU0kX2h DnPoRmJ3QWeeV369ImKcfSUcQid pX99uN3LarVR+LZVkOqu2MPQuwL bgEC6lW3IsSLSzjtbesMJe zRdlFH9gTHVpyynaRTHhmY3aGXQ uE3l3VdFbRyM3SEokH2KgJLHbsd mbRn72nO1eMhKyNvG2PFvs V5QtxyR0FYWsbRJeELkeHEY1T73 rx5R9INPrTSIxQYV7dCV4iB1ddT lnbjogbGVmdDsgdmVydGlj UYygNYbrF480RLKljDaxCmIvQNx uZyBEYXRlOiAgMDQvMTcvMjAyND wvdGQ+VHLsVGK9qCogCJMl gPKcRSswZq8ysLgthYooQF7mZEU vmakbBYBbxV5nBRCtaGVevCgnWR 8gSOZpmntiy048WrVsETD8 MPXryUJmQ5TjmO5vCxCvDUDyGUB gF3OvvFCwSUarY012CSwuNfE9BQ VnggZhO2LgYKMrdLqyXbP1 m7N2Xv7Zs5WyorasZ5EvlFTjYkL nHvbaORe9E2CfWzlqoSP+PC90YW HlRY23RLu3TZP8jMnuAXrl RLGdF9ImgJ8lUcVeUAKoTPDvSvn +PHRhYmxlIHdpZHRoPScxMDAlJy LslCvwZD9sJf9hKSUuJGBi ySomgBPfGxRtp3fwAJTlDBygJT7 rfPqbJ9ZrsMB0EPFro4u2Ig11V2 4oE6UcwOY+RAJhbEH1sZY0 pV6hRjDhLvG6FOqtE270OlPsfOQ rPmbup0ilu6antFs6BbU2NTAghz PylNtsDRR5h9LfEm55Q57e IHdpZHRoPSIxNSUiIHZhbGlnbj0 qjQ6tJy0+KCEczUU2gLL4zY5tOs OdMyU6XHneH897OxIveOPq Saatm9cub7jncWf7WdNxIBCznzB xsCwgFRJ8r9KmKv40Z8NlhMecj8 JkYow2uc84gRZnc0W0jUN4 C6IdMHCsbpsvcJOelLueNC7qSJL oapjxMZJnpB2cAATsU0a1IbQbOm M2TJuqJ6NhynX3LGLhsMVu FIIxoIROzH4qktejk6hkkkrrWkT lNOPhKNe7LGo5BHLtdRimUlQrYV N2RhQ7EOL4cUYlyR3vzZlv qekxkL9hNnp+TQG9xUNvcLDTUH5 lOjwvdGQ+PWKsIEF2rMliRDbdVC WtfA3qUQZxQ5q7ZfAvQaO4 ZJfwN1VepdA0FSIxuVFhICHyzCI BxT0gnzlzz9lpiybxRvQcNEExPR c8EXw9IMAnkEfqNhWhMUP9 HqG4JCM0dHCypT6bmDdaapicmV7 wOyc+LjmerOhnJFE6FDy6D6EaLc r6RIKhaTkvLN5odMOcGXdf Sz6lyEycpKmpTZ3cAVBhyzwba59 3HsWua2mgOHMjiAWoMCaaSJQ3Z4 2co4D7ALOwXMUnOHB6uHN9 yI9ueXhyvcmpfZUwhBonmiUdcOg eMQsqSUjdE082PRMnyKbgKwDpFP j3V1AoBxy7IRMyyFzbWU8o uUJoWNtxRp7aqBcqzLxcDX1rOQM nxltmh888WhRsb6bgJISneZFaJL bsFRR9T03bf9D7DGNcEJNk HAD4oBN7lS4ofHdxiymdjAAnbOp avzEiePeyJDxhOWteC916BQYvnF nnEeDqsCp1V8AbGyh0FMCu jGksGC4obOYlFTljTn3hyDtbaZk uDJ2eYZXjkuqvy137YpAvq2enHS JqaBPaVHzdNNC7R39hl4A0 JHWbWVHmPXP4dNP6yI5lfIbrfbu gbGVmdDsgdmVydGljYWwtYWxpZ2 46IHRvcDsnPlBhdGllbnQg AEvyDYq5E7YkNpvhbOO+FQ75KRE zGH95zWMckTOub4zgtYf2UvPoYY EmZHD1sQkmXFops6WdZPMg T97ahLUev7B6VIQbwVtxfZOdYwP ywQB2fB7rWZhtzvnjj5uxgeruBs usw2vldg47fN55D68tDDzm VPVcDWEzLJRbYPViwUquqy7jqA3 wIi8+XJBajIV6hJA6aK9qCFTzTl G8IKoxI340YlWjgRGzOtsr t2jzu0oqeBh5UqK0UQFyyrTpxZu eJWB2w7WwEn73C61xOLsmGSZzVS VcGJPjGCFrdFoafi1umQ8y Ii8+JVYpkYO8dOP2hK0bYyFbLkV 4FRgdR606ZhMrsOZyVzjzR22eF8 JvdXA+XNYlUrq4EMHocEwf QZ7bsPEsBSpdNd4dRVW0RvXeWzA rPMrqQ5VbTTEaxyzwidtxtDM8VK MwJHXjqS79Db6tyFssSEDz eHUXdA2rjmrnl7miaxqiOnKaWYW aRNr2YLh7HDEjyYkmTpWeNOC3Tc R4OCH7dLVwdB1syTvikfqr rX1fY1SxFSNbsivxIg92qZ8aPoY wSbK2YFgkLae+JgNQGewgR7VMYW dMMnSZNFA3S1RdVll9AWEp xRytAK4wtOZwWSqpLf1fvKxsyPu oHQ3yTDHctqoyFYXcnC0lUGQptV FjdXudAY1iTTVaxhwcp925 FwArCQN7NJNcfIWkC9RexR5yPhW kOUNdWQAnE9NcvMNpHZgzQ528EO mhQsO7VCFinxYjY4RaVWVo xCdkKcO9c1J5Kn1bRO1hHk4fDQl 1WI31ZN30bNRpk5H9sKA9Q6ZuVY RwhswwjrnnpLX8QJBaADBf zT61qWNfJMupTx5rm8D3o327XWJ qRLAnmP77Tj3zsCqbCRJbkZQXwA 5mavgsy3jsqeneTySjRIIw ZAh6UXa1OSWiqSxyLrApSLG4SrJ 1KWP9qQWfdY8niExyukvjmD6bFt c+OxUrRMMejvS4R2JiDnq3 EJInuJeeOE5dmFAuZKxzFh4klFn gqFnzEI3oMVWxyqcgHTFxaO2hEM PyyNNvhZlbCI8yVJNsmnik s299RrZjTLZ9NELdcKFxO9GjhZ7 wIgGeSXNrBCVcB5ZocBSeGIpvF2 58TXplMvC2YBSjtnRfN2Wr VJKcfJxqCzI5n2X3Bg6QQB1THQE 5J7UwYee6TUAojStoSZ5xsWJqUE ulIb4glLhpsNqrCP1kWXOm cscnVLAlqJ3oQYAhgUOpyVazCV5 nNWQaikygl248CtIhQGP7EWDpwK GoF6OfoJ3nZoUqDJSqEXTe U9OzfVQcXRowA259VPalUoM9EEC kejSyP1QkMSSbyKbkQxT2n3O9Px 5PUDwvdGQ+MW51vq11Q4Dz UvqbYtv2SOSuQMJ8jMX2wP6hRFX nNAvwk2F4lEM8S4BtdxRvqh1ti0 ptQSKmCHseJ02bvTJch9I0 ROWamWP1XUVqpGiiPgPnzS30Oow +SWZigOwcd5DrBkeia0hqs7jalQ k7QwQmBQWeupDhfIkmEGU1 e2VzQq34O60iRWqrXDKaISZcASI tFPBekEhmri3ldA0tEr5+PGNvbC C6dXE3fZ1bSvPoXlA3IRgj F321JqGysVRoDfzdr8jxv7kwmZh 9EpLzRKPwhcWhyJmnZEB5t3OtCf 30X0ErvIwfb5PbPty3mq20 wUUbw0W2tHD7B3VdZGPkchjcpEP stBfsOO7xFUAuujxiDCKaqZ8bSS EoE5c1EpSvCiV7VAbqF1Hc ajZ3LUYgkRUpZLIidAQNxW6euae pb6pcgntoEyCeMZBxRFn8IEa0QW PyrZoqEaTtNFU4XzL4AKA6 dZZvvV9fsGrxlkycqE9uZga+UGh 0h3gnzNPlCR6edFE2BU55LZ57kZ Hhg5E8qPA8A1LmDMVkunlg oqdicQR8MCOcPSDhrZ69Ni2idHy sAz3nVJWxOSO1UOSyrZPxS0MacO 1qMsTzNUDnTNZfK2ZsvSRq RZffO204UShnEzH5SLJuxmKoW3M tEJOpeZsxBpZ9s8H5Ie5UKY55TW 58PF18dYEhp4X5fDN2Y7Eb QEYmwpipgdnqzYN7LCFxVFGwzH4 9Bc2weHzqVt1gVGJmYKC4RKEouY TaC0SrlZ7fGrQeMVFaQSYs E8XrmOUnRRwxT882MLvzTfA9AQA pupEkA2OdSDXvzLkmQvQ4k7P7Rv 8VZv54HF57WM14xSRav8R8 cPU4I2DuQHRrvppcxjwkdWL8IMU uXUKozJ87Je0fhRvwWn0mBYBxYQ N7VQBorRDnK4EdkO5bSoUd JWYcBJPuX0RfwIRjSAmyR429CDg oGvE1PIGicqHmG0FfXYDyxUpaSu Q1j4V5Kf7ZZFslpsc3K0Le PjwvdHI+BG24OPOfZK08dNKlkIA yd7stgHi7VrInSHYaEOI4aTjfFJ qcn3LlEGBoH95xyVOuv7E0 IGN (more content not included)... [facility] Coding Summaryon 01-09-2024 Coding Summary HTMLBase 64 ShteifahQLj7tSn+PGhlYWQ+PE1 LKIPcF00xcEFoaD0cH9MEVSqITx rdWMQXLPbUDzZttaKvYL4uxRQjL XJu IC8+SY3uPSQfOkapoKGyw0Z6bNS 5F57vnp0bEThpuVH7JUXlQsUkzj agf1gctRf3JPteJbipXqFi OTVkjF14EWU4jM91Dl03lJXhrJC yz4vndVq0QsZrIVBeKUS4qKuxRL olq1SyZBQpX73nvVWxy4G8 YUEspAijoCUnVsGoxLH3lL0dJEw ojgebl9xmfkaeDkg3wf53bQAwc8 T8rZK7S3TjafF8JEIrmLDw WujiaZJGxB3tfkcbu0drfoarEjD eFNRlCFf0YTj5BLWmhNnsHtOcJZ 84KWY7JPEyxtZlM2DiIVXp kQzsOfT4p2D8Sy1TV9SMAoldC1F NTUFSWTwvdGQ+EA34en03F9TkTz noFpy9MKUbZKT5zQC6aN2b AOLoBMwcs9A5kHV6L3WbqpXabz2 iw7kdLGGzQBaaM00nxSZrl2F7ZW RemDM7KHTriXewGiWndP22 Oyc+IENhtIxhe8CyNkqsn8jya0t teOh4YeoeRABsegEpgMqaHSC4w5 LuGu5aJUWfkVX4vQS7fB7s VcDlQmW2UMydV412PuNdeRMvUja kP10lA0CnwWO+NOWwAdu3SHNotD lpUY6bC8MuQIUsuilvwJTl qOrtRQ9tSXZtsgykNORblW9hIKX aA5n9UgMqBaE6DOeyX5TqOIBchv ekTw29fI4hNsHwQpG1HGul F6PekqV9AWBjqEIhYDtdLZM1I11 ar7Z5AKKtHMVdQZC1wRS1vW4ycR lnbjogbGVmdDsgdmVydGlj ODxuLNbdX300EEZqoCgcObLwTOk uZyBEYXRlOiAgMDQvMTYvMjAyND wvdGQ+XGFmEVL6uCtpFHUg fOXyIFaoMg1imAlzfIqcHO6gZWE nnjejXUSnzT5rDKCkyPMfvJqzEM 9kTQXdpbmvl998TzGeHNF9 CDGuwIXtG1ZcpR6vItUsOCHcPNX eD1AmvVVsKFkjC057YQhqOsF0ET XrfhWbC6OyUODuySmfCaL1 f7K4Cz1Mp8IntdnkO4VgqFZyJtQ qVdauILq1P0EhMbndyDN+PC90YW TjHL95MLd9CDN7wPkcJTff UVEaI7EfyS2jSpOpVSTiQQNlHlz +PHRhYmxlIHdpZHRoPScxMDAlJy FooUbbUA0mZi8uIPMvJHHb eBtjzTPbMuTjh7dyTPPtNOakPE1 sfNbqS9UcoTV4UUIyl0k2Jx74E4 7xI1UktTV+HSBrfMW2kPG2 rR4kYvFkMqT6QXgyY478LfLmoHD xUhqvu1bzg9pywHw0YfU9BWYmhf IlfSpxABH6h5PdFv46Q57l IHdpZHRoPSIxNSUiIHZhbGlnbj0 vrJ4aCm8+FXQfeOI5qOT0qV0nDd CzNwP9KMbxI292QtIynVGa Bmtpi4mit5hptAm1ZrUpRJZnteJ imYmrRJW4o8YxJb07H3PulZxro9 HuKcc0zn38fXAil2U5vUJ1 J8CyKOHujttfwSKllBspUQ0qBMG fznecOYIigE4dALOfW3g1FeAcFs M1LLeoM9CyekN7CBLeoDNl RBQitLEJyU3okxrgy8gipmavCiW pBRNkTOw9FDs3VXVcvVwmNrQeZZ I3RsD8RYL6iNFaaO9fbPbg hlisqQ0zOuq+IRU8jZGdbKIQVC0 lOjwvdGQ+XXWxOIY9vWnhRCixTG PkxF6pFRIhB6z5ZgDdHcY1 VBqcU1VziuA8ZHEbsOCbJUUbrVV HvL6usyocm7bdxhswYxKxPNFuZA t2JKo2ZFCohRtdIoYfGWH1 EvX9RGG4tNTbsW5xlCsemovssR0 wOyc+JltwwCeiLJO1SFc1W8YrNh u4QFWrhOdpXN1xoWBcWAta Is1mrZjvzHnmME1aZSQwxdjsd83 2VaRdt9xdPFWcpHUzTQgwCXJ1F4 6jf2O6NVGaPDNvVNR6iKP0 lP3rnXhnhpqymBLykCificZtmUf lIEyzVGeyQ829TMYbiCzdScSnJU q5V0UvCmn5UUWnhPxbDQ9b rTDcXLthPs5rcRtnbXujWI7dLHM kiladp912NfAjr3hiVSUgfIPgCN dtUQT9E58iw8Y9EZUaCVVd WPS3lZV3vM9wqIbradxmuVEntLg ilgIimJdqFTlkGLfaD161GBTotH qzKnPagIe8Z1IeGrg5PVFp oFgfSX2mxCKbCGdxQi2yzDcpjVi xRH6xEONnfuamh040EbOwv4kcDQ SrdZPeHEopEVC1J75er0R4 TOIxYKDuKUV2wUJ7oP2nsZydhca gbGVmdDsgdmVydGljYWwtYWxpZ2 46IHRvcDsnPlBhdGllbnQg NBpuVWp9W3NtMvugqSA+ZG10IBG vWR79cRYiyRQxw9kndBf2MaGgOL BkQMI4lJldXIgbi2QjLALg O75tiJPtg2T7BAIkrRunbIDmYiT emML3qQ9sVNoxguvlu6yvnlpfHa odd6efzr85hE50S01oIQvz FKFdGXWeAULzPMJweFzznh0ehZ3 wIi8+OXVesNE8fJD0dD5yOPFrWo L4QWjyX274XdZhoKCvXztp u7qhb7gpfPw4VvK7HSMiioNwkZv wOWV3t2QbCo57Y89qLNrdTDFjMJ DgYAJvBCNgzJefej2qiM4o Ii8+KYQysLQ5mEP7dT0vCyOaHgF 4LJtyC193EuEiaRJeFomtF21xB0 JvdXA+KARtLwa5JLNynKxi HE0wzSTyNIovTt3nBIB5ErUjVcW wBHfuF5AgUKUzweggldzodYI7RL HzELClhX25Pi6wjIpyPMVs xSCPtF8eiryin2rsyktxRgTxFTV gWZp3DId6FYJdvBmcEsEdEXL4Uj N4VGE5yTKxdQ3abVgujwpk nD9nO5XbFDZhbzszFi95hT8kLeU bLzH3ASkwMkm+WaCAKndyW2GYHE dVRpKUWEI6D1UtLex2WIYc lJsoSU3zjSQsJGqhVe9uzJnvmXd nCV6nQBHddsbaKGWhkF2dEQChrB QucPqmBI2tVMKkpwfjp027 CaCgJYJ1BDOtkNFjL3NjyR7xQbW gPTXcDOKtV6DttUIkWTufJ934LV ahPqW4OWEejnAiA3IqXNAd dNqkWyE5m5T0Ek1rEA0kKj2cLQo 2QW30ZX37aPFnr0V3rSN2I9LmJS RcdrwynaaiiEW0DYJdPFKc qM55rQYaJSdgCd4qx7Q2y705KJI rESWdnG68Do1csHzuFFYikNWNhY 9bkfyuj9lojvmzUfBwBTNx BVw1CWt7MVXxtWmaNqDbTXP9FzX 4JDW9hVZktM8zvRvilplflI9vDa c+SnXsNXIbzvL4Z0XvTqh8 SUXphEazCA8xlXBvVUbmFx8tkWs ygBaqYR0mSJXounaqUXBzdG1iYH PtiXQkwYijXV9tPQCpsgcx e568IyUwHYS4JPBtsNLzR4RknM4 aPxJhSEJdQJHpE0GnlXAkXJjeY3 89XPfrXjB3UMYakuEuV2Gb TWRagSvwQmO8w8E1Ey8IDP5PUAV 9K0UtAhn8BEEvgKvdHC5cbAZiSO wvCd0lyOpieEjrIM1sHCUd bferMEFenC3kYAPlgSJgyLxnUX1 hPAYbjfzzn611FeBsJJP1RAMthE TcU8OosK0lHmUyAZCvEOVh Z1NqbEJpUBswM310SOypCqJ5GXU lqaGxK8NtXVLxcPtmVyK9u8Z1Ms 5PUDwvdGQ+XC45fq11U9Bo UgsrEid6DIYbYPH4gUT1bR3iEFP vFUkna2F2jJF4S5UrjhCeyl1bk4 adBZMfWDxeF20qcSAxq1X7 IVOqdFO9PFXzoVapFvHunC95Vsx +GQFhzDref3GcOdoke3zec7nxuI r0ZmIaTHYdlqAcgJrhYBF0 f2JxZr21S93lFRljIHXdWFJiBXV gAAYnvUsnni2ukP2pIh0+PGNvbC E1zFI2hU7pKeJqKeV5MThi O572EdRexKWwNmopl6dxj3pgbRh 2ZvJuFLJabqNybKjzDJP6m7IlBf 28M0EsiFggw3HkTli5yr65 rQAxz6G0mJL2Z0LmUGPowbawmKV dsBdyUA0wYDOccwipLZMxqA5pHE ZhG2v9JnXlPnB7PDnrF7Zc psG8PGMthUQfRXThmYFTxB6sobb ee0ocqoweKzZvIBElPDj6AGq2MK ZfeIafQyEtQQA0PtK9TWV5 bZMthQ6ajFrqlihsvE9gStx+UGh 1j2qzfQJuNQ1wsSD2PQ92UL64yP Sai3C0tNG8G3PrLBArfjsi cxnvsFG0KQXiJQHxhB80Lk3lzCf pRt6tVWXhVOM4BAUliJOvL6JsbD 9jQnNrBROcLIYfR3FpeATp FGsxD129BMohMlF1UCAszpAiG1P aZGTpuFpsVvD5h4L7Yf1TQE72LL 22UI65qINlp3Q8rTF7B9Tk CFUqvsfrtjlqcKY1YCLjDXEcbI0 8Jx5qwYhrPn6zZQZnMDM0JBLlaY DzA4ZasS4wXzAdQQLwQLGh U7KmvHFxJUxuF245QBedAwD9BZM sijWzT4XjLILjsAvxPwF1y7G8Yk 0FKc05IH53VI84uIDfj6Y2 tVA3W3ZcIUBbvfszodsfgMF0XXQ yGDUmzY39Ag3qyCseOa8qRMZpFG O3EXMgxIPfW2LlhW6eYmJe TBJhDDLrZ8HjkFNpYGjxK802FLo xXqF5VWYomaLcL6MjDVZtfHfzBg S0j9Y3Wl2GBHhnmkn7O5Ww PjwvdHI+PQ67GXMrIS56iIDppTO ye1bqnHk7FjHsLTNkBPR6yXjuUL voz7VrJUPeF87esTVwd1Q4 IGN (more content not included)... [facility] XR Hip Complete Right w/ [...] MD 01/08/24 3:46 pm Technologist: DARLEEN MALONE [facility] XR Sacrum/Coccyx Minimum 2 V [...] MD 01/08/24 3:46 pm Technologist: DARLEEN MALONE [facility] XR Spine Lumbosacral Complet e [...] MD 01/08/24 3:46 pm Technologist: DARLEEN MALONE [facility] Telemedicine 08-23-2023 Telemedicine [id number] Lior Green in 1990 F Date Provider Department [facility] 08/23/[address] [place] [address] No family history on file Level of Service:44413 SD OFFICE/OUTPATIENT ESTABLISHED LOW MDM 20-29 MIN [facility] 37on 07-11-2023 37 Follow-up with famil y medicine as directed. [facility] Telemedicineon 07-11-2023 Telemedicine [id number] Lior Green in 1990 F Date Provider Department [facility] 07/11/[address] [place], [place] [address]cy Medi No family history on file Level of Service:69345 SD OFFICE/OUTPATIENT ESTABLISHED [facility] 10-19 MIN Reason for Visit and Comments: Headache [52] Normal [facility] HEPATITIS B SURFACE ANTIBODY QUANTon 09-01-2022 HEPATITIS B VIRUS SURFACE AB (MIU/ML) IN SERUM 3.83 mIU/mL Normal [facility] Comment on above: Result Comment: INTE RPRETATION: NONREACTIVE<8.00 mIU/mL INDETERMINATE8.00 - 12.00 mIU/mL REACTIVE>12 mIU/mL Performed By: #### L [id number] #### [facility] (BEAKER) [address] [place] [address] T-Spoton 10-18-2021 T-Spot. TB Test Normal [facility] Comment on above: Result Comment: [facility] [employer] [address] [place] [address] (NOTE) T-SPOT.TB Test Results --------- T-SPOT TB [...] R UBI, FANG, JAGDEEP, VZI, TSPOT #### [facility] [address] [place] [address] Science Education Professor: Isreal Astorga MD Measles (Rubeola) Imon 10-15 Measles (Rubeola) Im 6.05 Normal >1.09 [facility] Comment on above: Result Comment: Interpretation: IMMUNE Reference Range: <0.91 Not Immune 0.91-1.09 Equivocal >1.09 Immune Performed By: #### R UBI, FANG, JAGDEEP, VZI, TSPOT #### [address] [address] Science Education Professor: Isreal Astorga MD Mumps,Immun,Abon 10-15-2021 Mumps,Immun,Ab 5.42 Normal >1.09 [facility] Comment on above: Result Comment: Interpretation: IMMUNE Reference Range: <0.91 Not Immune 0.91-1.09 Equivocal >1.09 Immune Performed By: #### R UBI, FANG, JAGDEEP, VZI, TSPOT #### [place] [id number] Science Education Professor: Isreal Astorga MD VZ Immunityon 10-15-2021 VZ Immunity 2.55 Normal >1.09 [facility] Comment on above: Result Comment: Interpretation: IMMUNE Reference Range: <0.91 Not Immune 0.91-1.09 Equivocal >1.09 Immune Performed By: #### R UBI, FANG, JAGDEEP, VZI, TSPOT #### [place] [id number] Science Education Professor: Isreal Astorga MD Rubella Ab, IgGon 10-14-2021 Rubella Ab, IgG 279.3 IU/mL Normal [facility] Comment on above: Result Comment: REFERENCE RANGE: <5.0 NON-REACTIVE (non-immune) 5.0 TO 9.9 EQUIVOCAL >=10.0 REACTIVE (immune) Performed By: #### R UBI, FANG, JAGDEEP, VZI, TSPOT #### [address] [id number] Science Education Professor: Isreal Astorga MD Basic Metabolic Panelon Anion gap [Moles/Vol] 11 mmol/L 9 - 17 mmol/L [place] Bun/Cre Ratio NOT REPORTED [place] Calcium [Mass/Vol] 8.7 mg/dL 8.6 - 10. 4 mg/dL [place] Chloride [Moles/Vol] 107 mmol/L 98 - 10 7 mmol/L [place] CO2 [Moles/Vol] 23 mmol/L 20 - 31 mmol/L [place] Creatinine [Mass/Vol] 0.59 mg/dL 0.5 - 0.9 mg/dL [place] GFR >60 >60 mL/min [place] GFR Non- >60 >60 mL/min [place] GFR/1.73 sq M predicted among non-blacks MDRD (S/P/Bld) [Vol rate/Area] [place] Comment on above: Average GFR for 30-3 9 years old: 107 mL/min/1.73sq m Chronic Kidney Disease: <60 mL/min/1.73sq m Kidney failure: <15 mL/min/1.73sq m eGFR calculated using average adult body mass. Additional eGFR calculator available at: http://www.[employer]/multiple_crcl_2012.htm GFR/1.73 sq M predicted among non-blacks MDRD (S/P/Bld) [Vol rate/Area] NOT REPORTED [place] Glucose [Mass/Vol] 91 mg/dL 70 - 99 mg/dL [place] Potassium [Moles/Vol] 4.1 mmol/L 3.7 - 5.3 mmol/L [place] Sodium [Moles/Vol] 141 mmol/L 135 - 144 mmol/L [place] Urea nitrogen [Mass/Vol] 10 mg/dL 6 - 20 mg/dL [place] CBC Auto Differentialon Basophils (Bld) [#/Vol] 0.03 10*3/uL [place] Basophils/100 WBC (Bld) 1 % 0 - 2 % [place] Differential Type NOT REPORTED [place] Eosinophils (Bld) [#/Vol] 0.15 10*3/uL [place] Eosinophils/100 WBC (Bld) 3 % 1 - 4 % [place] Erythrocyte distribution width (RBC) [Ratio] 12.4 % 11.8 - 14.4 % [place] Hematocrit (Bld) [Volume fraction] 41.3 % 36.3 - 47.1 % [place] Hemoglobin (Bld) [Mass/Vol] 13.3 g/dL 11.9 - 15.1 g/dL [place] Immature granulocytes (Bld) [#/Vol] 10*3/uL [place] Immature granulocytes (Bld) [#/Vol] 0 % 0 [place] Lymphocytes (Bld) [#/Vol] 1.91 10*3/uL [place] Lymphocytes/100 WBC (Bld) 39 % 24 - 43 % [place] MCH (RBC) [Entitic mass] 29.7 pg 25.2 - 33.5 pg [place] MCHC (RBC) [Mass/Vol] 32.2 g/dL 28.4 - 34.8 g/dL [place] MCV (RBC) [Entitic vol] 92.2 fL 82.6 - 102.9 fL [place] Monocytes (Bld) [#/Vol] 0.46 10*3/uL [place] Monocytes/100 WBC (Bld) 10 % 3 - 12 % [place] Platelet mean volume (Bld) [Entitic vol] 10.7 fL 8.1 - 13.5 fL [place] Platelets (Bld) [#/Vol] NOT REPORTED [place] Platelets (Bld) [#/Vol] 246 10*3/uL [place] RBC (Bld) [#/Vol] 4.48 10*6/uL 3.95 - 5.11 m/uL [place] RBC morphology finding Nom (Bld) NOT REPORTED [place] Segmented neutrophils/100 WBC (Bld) 47 % 36 - 65 % [place] Segs Absolute 2.29 [place] WBC (Bld) [#/Vol] 0.0 10*3/uL 0.0 per 100 WBC [place] WBC (Bld) [#/Vol] 4.9 10*3/uL [place] WBC Morphology NOT REPORTED [place] Iron And TIBCon 05-31-2019 Iron [Mass/Vol] 92 ug/dL 37 - 145 ug/dL [place] Iron Saturation 38 % 20 - 55 % [place] TIBC 243 ug/dL Low 250 - 450 ug/dL [place] UIBC 151 ug/dL 112 - 347 ug/dL [place] Otheron 05-31-2019 Interpretation and review of laboratory results Abnormal [place] Vitamin D 25 Hydroxyon 05-31 Vit D, 25-Hydroxy 20.9 ng/mL Low 30 - 100 ng/mL [place] Comment on above: Reference Range: Vitamin D status Range Deficiency <20 ng/mL Mild Deficiency 20-30 ng/mL Sufficiency 30-100 ng/mL Toxicity >100 ng/mL Vital Signs Date Time Vital Sign Value Performing Clinician Facility 11-21-2024 11:58-0500 Body mass index (BMI) [Ratio] 40.32 kg/m2 [employer] Work Phone: [facility] 11-21-2024 11:58-0500 Body weight 113.31 kg [employer] Work Phone: [facility] 11-21-2024 11:58-0500 Diastolic blood pressure 70 mm[Hg] [employer] Work Phone: [facility] 11-21-2024 11:58-0500 Systolic blood pressure 110 mm[Hg] [employer] Work Phone: [facility] 11-07-2024 13:51-0500 Body mass index (BMI) [Ratio] 40.03 kg/m2 [employer] Work Phone: [facility] 11-07-2024 13:51-0500 Body weight 112.49 kg Catrachito Attila DO Work Phone: [facility] 11-07-2024 13:51-0500 Diastolic blood pressure 72 mm[Hg] Catrachito Attila DO Work Phone: [facility] 11-07-2024 13:51-0500 Systolic blood pressure 120 mm[Hg] Catrachito Attila DO Work Phone: [facility] 10-01-2024 10:38-0500 Body mass index (BMI) [Ratio] 39.19 kg/m2 Catrachito Attila DO Work Phone: [facility] 10-01-2024 10:38-0500 Body weight 110.13 kg Catrachito Attila DO Work Phone: [facility] 10-01-2024 10:38-0500 Diastolic blood pressure 68 mm[Hg] Catrachito Attila DO Work Phone: [facility] 10-01-2024 10:38-0500 Systolic blood pressure 108 mm[Hg] Catrachito Attila DO Work Phone: [facility] 09-04-2024 10:33-0500 Body mass index (BMI) [Ratio] 37.92 kg/m2 Christen Reid MD Work Phone: [facility] 09-04-2024 10:33-0500 Body weight 109.86 kg Christen Reid MD Work Phone: [facility] 09-04-2024 10:33-0500 Diastolic blood pressure 69 mm[Hg] Christen Reid MD Work Phone: [facility] 09-04-2024 10:33-0500 Heart rate 84 /min Christen Reid MD Work Phone: [facility] 09-04-2024 10:33-0500 Systolic blood pressure 105 mm[Hg] Christen Reid MD Work Phone: [facility] 08-12-2024 14:16-0500 Body mass index (BMI) [Ratio] 38.58 kg/m2 Genevieve Donovan PA Work Phone: [facility] 08-12-2024 14:16-0500 Body weight 108.41 kg Genevieve Donovan PA Work Phone: [facility] 08-12-2024 14:16-0500 Diastolic blood pressure 72 mm[Hg] Genevieve Donovan PA Work Phone: [facility] 08-12-2024 14:16-0500 Systolic blood pressure 120 mm[Hg] Genevieve Donovan PA Work Phone: [facility] 07-16-2024 11:31-0400 Body mass index (BMI) [Ratio] 38.54 kg/m2 Catrachito Attila DO Work Phone: [facility] 07-16-2024 11:31-0400 Body weight 108.32 kg Catrachito Attila DO Work Phone: [facility] 07-16-2024 11:31-0400 Diastolic blood pressure 64 mm[Hg] Catrachito Attila DO Work Phone: [facility] 07-16-2024 11:31-0400 Systolic blood pressure 110 mm[Hg] Catrachito Attila DO Work Phone: [facility] 07-05-2024 11:45-0400 Body height 170.2 cm Mishel Segovia MD Work Phone: [facility] 07-05-2024 11:45-0400 Body mass index (BMI) [Ratio] 36.83 kg/m2 Mishel Segovia MD Work Phone: [facility] 07-05-2024 11:45-0400 Body weight 106.69 kg Mishel Segovia MD Work Phone: [facility] 07-05-2024 11:45-0400 Diastolic blood pressure 69 mm[Hg] Mishel Segovia MD Work Phone: [facility] 07-05-2024 11:45-0400 Heart rate 86 /min Mishel Segovia MD Work Phone: [facility] 07-05-2024 11:45-0400 Systolic blood pressure 128 mm[Hg] Mishel Segovia MD Work Phone: [facility] 06-17-2024 11:46-0400 Body mass index (BMI) [Ratio] 37.9 kg/m2 Catrachito Attila DO Work Phone: [facility] 06-17-2024 11:46-0400 Body weight 106.5 kg Catrachito Attila DO Work Phone: [facility] 06-17-2024 11:46-0400 Diastolic blood pressure 78 mm[Hg] Catrachito Attila DO Work Phone: [facility] 06-17-2024 11:46-0400 Systolic blood pressure 116 mm[Hg] Catrachito Attila DO Work Phone: [facility] 05-31-2024 11:30-0400 Body mass index (BMI) [Ratio] 36.74 kg/m2 Lexi Robertson MD Work Phone: [facility] 05-31-2024 11:30-0400 Body weight 106.41 kg Lexi Robertson MD Work Phone: [facility] 05-23-2024 15:41-0400 Body mass index (BMI) [Ratio] 41.48 kg/m2 Sandrita Bowers CNM Work Phone: [facility] 05-23-2024 15:41-0400 Body weight 116.57 kg Sandrita Bowers CNM Work Phone: [facility] 04-29-2024 13:25-0400 Diastolic blood pressure 82 mm[Hg] [facility] 04-29-2024 13:25-0400 Heart rate 80 /min [facility] 04-29-2024 13:25-0400 Respiratory rate 16 /min [facility] 04-29-2024 13:25-0400 SaO2% (BldA) [Mass fraction] 99 % [facility] 04-29-2024 13:25-0400 Systolic blood pressure 145 mm[Hg] [facility] 04-29-2024 10:53-0400 Body temperature 97.4 [degF] [facility] 04-29-2024 10:28-0400 Inhaled oxygen flow rate 2 L/min [facility] 04-29-2024 06:46-0400 Body height 170.18 cm [facility] 04-29-2024 06:46-0400 Body mass index (BMI) [Ratio] 37.6 kg/m2 [facility] 04-29-2024 06:46-0400 Body weight 109 kg [facility] 04-19-2024 09:11-0400 Body height 172.72 cm [facility] 04-19-2024 09:11-0400 Body mass index (BMI) [Ratio] 35.9 kg/m2 [facility] 04-19-2024 09:11-0400 Body weight 107 kg [facility] 02-15-2024 11:55-0400 Body height 172.72 cm [facility] 02-15-2024 11:55-0400 Body mass index (BMI) [Ratio] 36.1 kg/m2 [facility] 02-15-2024 11:55-0400 Body weight 107.95 kg [facility] Encounters Encounter Date Encounter Type Care Provider Facility Start: 12-02-2024 End: 12-02-2024 Clinisync Result Encounter Catrachito Aiken DO Work Phone: [facility] External [facility] Unsolicited Start: 12-02-2024 End: 12-02-2024 Clinisync Result Encounter Catrachito Aiken DO Work Phone: [facility] External Department Unsolicited Start: 11-28-2024 End: 11-28-2024 ambulatory CATRACHITO R [facility] Start: 11-27-2024 End: 11-27-2024 Chart abstracting Scanning Provider External [facility] Start: 11-25-2024 End: 11-25-2024 Clinisync Result Encounter [...] trimester Start: 11-06-2024 ambulatory None Provider Facility: [facility] Start: 10-25-2024 End: 10-25-2024 Clinisync Result Encounter Catrachito Attila DO Work Phone: [facility] External Department Unsolicited Start: 10-25-2024 End: 10-25-2024 Clinisync Result Encounter Catrachito Attila DO Work Phone: [facility] External Department Unsolicited Start: 10-15-2024 End: 10-15-2024 ambulatory CATRACHITO AIKEN [facility] Start: 10-01-2024 End: 10-01-2024 Bamboo flowsheet Catrachito Attila DO Work Phone: [facility] Start: 10-01-2024 End: 10-01-2024 Bamboo flowsheet Catrachito Attila DO Work Phone: [facility] [facility] Start: 10-01-2024 End: 10-01-2024 flow sheet Catrachito Attila DO Work Phone: [facility] Comment on above: Second trimester pre gnancy; 25 weeks gestation of ; with normal glucose tolerance test (GTT); Diabetes mellitus screening; Retained intrauterine device (IUD) during in second trimester Start: 10-01-2024 End: 10-01-2024 ambulatory CATRACHITO AIKEN Not Available Start: 09-04-2024 End: 09-04-2024 Office outpatient visit 25 minutes Lexi Robertson MD Work Phone: Maternal- Medicine at [facility] Comment on above: 21 weeks gestation o f (Primary Dx); Retained intrauterine device (IUD) during in second trimester; History of gastric bypass; Obesity affecting in second trimester, unspecified obesity type; with history of section, antepartum; Multigravida of advanced maternal age in second trimester Start: 09-04-2024 End: 09-04-2024 ambulatory [facility] Comment on above: 21 weeks gestation o f (Primary Dx); Retained intrauterine device (IUD) during in second trimester; History of gastric bypass; Multigravida of advanced maternal age in second trimester Start: 08-12-2024 End: 08-12-2024 Bamboo flowsheet Genevieve SOLITARIO Work Phone: [facility] Start: 08-12-2024 End: 08-14-2024 Clinisync Result Encounter Genevieve SOLITARIO Work Phone: [facility] External Department Unsolicited Start: 08-12-2024 End: [...] Start: 07-17-2024 End: 07-17-2024 ambulatory NON STAFF [facility] Work Phone: Start: 07-17-2024 End: 07-17-2024 Patient encounter procedure [facility] Work Phone: Start: 07-16-2024 End: 07-16-2024 [...] Second trimester Start: 07-10-2024 End: 07-10-[address] Start: 07-08-2024 End: 07-08-2024 Orders Only Not In System Ref Prov Maternal- Medicine at [facility] Start: 07-05-2024 End: 07-05-2024 Office outpatient visit 40 minutes Mishel Segovia MD Work Phone: Maternal- Medicine at [facility] Comment on above: Retained intrauterin e device [...] 07-05-2024 End: 07-05-2024 ambulatory CATRACHITO R ATTILA [facility] Comment on above: Retained intrauterin [...] Start: 06-11-2024 End: 06-11-2024 ambulatory NON STAFF [facility] Work Phone: Start: 06-11-2024 End: 06-11-2024 Patient encounter procedure MD Santa Estrada II Work Phone: [facility] Work Phone: Start: 05-31-2024 End: 05-31-2024 Office consultation new/estab patient 60 min Lexi Robertson MD Work Phone: Maternal- Medicine at [facility] Comment on above: Retained intrauterin e device (IUD) during in first trimester (Primary Dx) Start: 05-31-2024 End: 05-31-2024 ambulatory CATRACHITO VILLATOROO [facility] Comment on above: Retained intrauterin e device (IUD) during in first trimester (Primary Dx) Start: 05-29-2024 End: 05-29-2024 Chart abstracting Lexi Robertson MD Work Phone: Maternal- Medicine at [facility] Start: 05-23-2024 End: 05-23-2024 ambulatory SANDRITA L [...] Start: 05-15-2024 End: 05-15-2024 ambulatory NON STAFF [facility] Work Phone: Start: 05-15-2024 End: 05-15-2024 Patient encounter procedure [facility] Work Phone: Start: 04-29-2024 Non-patient / Non-visit [facility] Work Phone: Start: 04-29-2024 End: 04-29-2024 Admission to same day surgery center [facility] [place] Start: 04-29-2024 End: 04-29-2024 ambulatory NON STAFF [facility] Work Phone: Start: 04-25-2024 End: 04-25-2024 ambulatory SANDRITA BOWERS Not Available Start: 04-19-2024 End: 04-19-2024 ambulatory NON STAFF [facility] Work Phone: Start: 04-19-2024 End: 04-19-2024 Patient encounter procedure [facility] Work Phone: Start: 04-19-2024 End: 04-19-2024 Discharged Recurring MD Santa Estrada II Work Phone: [facility] [place] Start: 04-19-2024 [facility]istered [facility] [place] Start: 04-19-2024 End: 04-19-2024 ambulatory NON STAFF [facility] Work Phone: Start: 04-19-2024 End: 04-19-2024 Patient encounter procedure [facility] Work Phone: Start: 04-16-2024 End: 04-16-2024 ambulatory SANDRITA BOWERS Not Available Start: 04-15-2024 End: 04-15-2024 Patient encounter procedure [facility] Work Phone: Start: 04-15-2024 End: 04-15-2024 ambulatory NON STAFF [facility] Work Phone: Start: 03-13-2024 End: 03-13-2024 ambulatory Peter Booth Facility:[facility] Start: 03-12-2024 End: 03-12-2024 Patient encounter procedure [facility] [place] Work Phone: Start: 03-12-2024 End: 03-12-2024 ambulatory NON STAFF [facility] Work Phone: Start: 02-29-2024 End: 02-29-2024 ambulatory [facility] Start: 02-27-2024 End: 02-27-2024 ambulatory NON STAFF [facility] Work Phone: Start: 02-27-2024 End: 02-27-2024 Departed Referred [facility] Start: 02-26-2024 End: 02-27-2024 ambulatory Peter Booth Facility:[facility] Start: 02-15-2024 End: 02-15-2024 ambulatory NON STAFF [facility] Work Phone: Start: 02-15-2024 End: 02-15-2024 Patient encounter procedure [facility] Work Phone: Start: 02-01-2024 End: 02-01-2024 ambulatory VICTOR M LUJAN Not Available Start: 01-25-2024 End: 01-26-2024 ambulatory Audra Reynoso APRN-ADITI Facility:[facility] Start: 01-12-2024 End: 01-13-2024 ambulatory Alec Patel MD Facility:[facility] Start: 01-05-2024 End: 01-06-2024 ambulatory Audra Reynoso 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 Comment on above: History of bariatric [...] Surgery: [id number] Result Comment: PERF ORMED BY: [facility] [place] [address] PATHOLOGIST RADIOTELEGRAPHIST GENO BENEDICT M.D. Start: 03-12-2024 Methicillin resistan [...] Start: 05-31-2019 Iron binding capacity J barrie Kahn Work Phone: H/O: section History of 2 sections Mishel Segovia MD Work Phone: History of operative procedure on knee History of knee replacement, unspecified laterality Mishel Segovia MD Work Phone: Plan of Treatment Date Care Activity Detail Author Start: 03-14-2034 DTaP,Tdap and Td Vac cines (3 - Td or Tdap) DTaP,Tdap and Td Vaccines (3 - Td or Tdap) [facility] Start: 04-16-2029 Screening for malign ant neoplasm of cervix [facility] Start: 04-16-2027 Screening for malign ant neoplasm of cervix Pap Smear [facility] Start: 09-04-2025 Adult BMI Screening Adult BMI Screen ing [facility] Start: 09-04-2025 Tobacco Screening Tobacco Screening [facility] Start: 09-04-2025 End: 09-04-2025 US MFM with or without consult US MFM with or without consult Imaging Routine 21 weeks gestation of Retained intrauterine device (IUD) during in second trimester History of gastric bypass Multigravida of advanced maternal age in second trimester Expected: 09/04/2025 (Approximate), Expires: 09/04/2025 [employer] Work Phone: Comment on above: Expected: 09/04/2025 (Approximate), Expires: 09/04/2025 Start: 07-05-2025 Adult BMI Screening Adult BMI Screen ing [facility] Start: 07-05-2025 Tobacco Screening Tobacco Screening [facility] Start: 07-05-2025 End: 07-05-2025 US MFM with or without consult US MFM with or without consult Imaging Routine Retained intrauterine device (IUD) during in second trimester BMI 36.0-36.9,adult Multigravida of advanced maternal age in second trimester Expected: 07/05/2025 (Approximate), Expires: 07/05/2025 [employer] Work Phone: Comment on above: Expected: 07/05/2025 (Approximate), Expires: 07/05/2025 Start: 05-31-2025 Adult BMI Screening Adult BMI Screen ing [facility] [employer] Start: 05-31-2025 End: 05-31-2025 US MFM with or without consult US MFM with or without consult Imaging Routine Retained intrauterine device (IUD) during in first trimester Expected: 05/31/2025 (Approximate), Expires: 05/31/2025 [employer] Work Phone: Comment on above: Expected: 05/31/2025 (Approximate), Expires: 05/31/2025 Start: 12-12-2024 End: 12-12-2024 Patient encounter procedure [facility] Start: 11-28-2024 End: 11-28-2024 Patient encounter procedure 11/28/2024 9:45 AM EST Appointment [facility] [address] [facility] [address] [place] [address] [facility] Start: 11-21-2024 End: 02-27-2026 US for US [...] AM EST Routine [facility] [address] [place] [id number] Catrachito Aiken DO [address] [place] [address] [facility] Start: 10-31-2024 End: 10-31-2024 Patient encounter procedure 10/31/2024 8:30 AM EST Routine [facility] [address] [place] [phone] Genevieve Donovan PA [address] [place] [address] [facility] Start: 10-15-2024 End: 10-15-2024 Patient encounter procedure 10/15/2024 10:00 AM EST Appointment [facility] - Ultrasound [address] [place] [address] [facility] Start: 10-01-2024 End: 10-01-2025 CBC panel - Blood by Automated count CBC Lab Routine Diabetes mellitus screening Expected: 10/01/2024 (Approximate), Expires: 10/01/2025 [facility] Work Phone: Comment on above: Expected: 10/01/2024 (Approximate), Expires: 10/01/2025 Start: 10-01-2024 End: 10-01-2024 Patient encounter procedure 10/01/2024 9:50 AM EST Routine [facility] [address] [place] [phone] Catrachito Aiken, DO [address] [place], [place] [id number] Arrived [facility] Comment on above: Arrived Start: 09-11-2024 End: 09-11-2024 Alpha fetoprotein, maternal Alpha fetoprotein, maternal Lab Routine Need for maternal serum alpha-protein (MSAFP) screening Expected: 09/11/2024 (Approximate), Expires: 09/11/2024 [facility] Comment on above: Expected: 09/11/2024 (Approximate), Expires: 09/11/2024 Start: 09-09-2024 End: 09-09-2024 Patient encounter procedure 09/09/2024 2:00 PM EST Routine [facility] [address] [place] [id number] Catrachito Aiken, DO [address] [place] [address] [facility] Start: 09-04-2024 Adult BMI Screening Adult BMI Screen ing [facility] Start: 09-04-2024 Tobacco Screening Tobacco Screening [facility] Start: 08-20-2024 End: 08-20-[address] [facility] Start: 08-14-2024 End: 08-14-2024 Patient encounter procedure 08/14/2024 1:30 PM EST Routine [facility] [address] [place] [address] Genevieve Donovan, ALTAF [address] [place] [address] [facility] Start: 07-16-2024 End: 07-16-2024 Patient encounter procedure 07/16/2024 11:10 AM EDT Routine [facility] [address] [place] [address] Catrachito Aiken DO [address] [place] [address] [facility] Start: 07-05-2024 End: 07-05-[address] [facility] Start: 06-21-2024 End: 06-21-2024 Professional / ancillary services management 06/21/2024 10:30 AM EDT Ancillary Procedure [facility] [address] [place] [address] [facility] Start: 06-18-2024 End: 06-18-2024 Patient encounter procedure 06/18/2024 2:00 PM EDT Office Visit [facility] [address] [place] [phone] Sandrita Bowers, [facility] [address] [place], [place] [id number] [facility] Start: 06-17-2024 End: 06-17-2025 ABO/Rh ABO/Rh Lab Routine Missed menses Expected: 06/17/2024 (Approximate), Expires: 06/17/2025 [facility] Comment on above: Expected: 06/17/2024 (Approximate), Expires: 06/17/2025 Start: 06-17-2024 End: 06-17-2025 Alanine aminotransferase [Enzymatic activity/volume] in Serum or Plasma ALT Lab Routine Multigravida of advanced maternal age in first trimester Expected: 06/17/2024 (Approximate), Expires: 06/17/[address] [facility] Comment on above: Expected: 06/17/2024 (Approximate), Expires: 06/17/2025 Start: 06-17-2024 End: 06-17-2025 Aspartate aminotransferase [Enzymatic activity/volume] in Serum or Plasma AST Lab Routine Multigravida of advanced maternal age in first trimester Expected: 06/17/2024 (Approximate), Expires: 06/17/2025 [facility] Comment on above: Expected: 06/17/2024 (Approximate), Expires: 06/17/2025 Start: 06-17-2024 End: 06-17-2025 Blood type and Indirect antibody screen panel - Blood Type and screen Lab Routine Missed menses Expected: 06/17/2024 (Approximate), Expires: 06/17/[address] [facility] Work Phone: Comment on above: Expected: 06/17/2024 (Approximate), Expires: 06/17/2025 Start: 06-17-2024 End: 06-17-2025 CBC W Auto Differential panel - Blood [facility] Comment on above: Ordered: 06/17/2024 Expected: 06/17/2024 (Approximate), Expires: 06/17/2025 Start: 06-17-2024 End: 06-17-2025 Creatinine [Mass/volume] in Serum or Plasma Creatinine Lab Routine Multigravida of advanced maternal age in first trimester Expected: 06/17/2024 (Approximate), Expires: 06/17/[address] [facility] Comment on above: Expected: 06/17/2024 (Approximate), Expires: 06/17/2025 Start: 06-17-2024 End: 06-17-2025 Drugs of abuse panel - Urine by Screen method Rapid drug screen, urine Lab Routine Missed menses Encounter for supervision of normal first in first trimester , unspecified gestational age Expected: 06/17/2024 (Approximate), Expires: 06/17/[address] [facility] Comment on above: Expected: 06/17/2024 (Approximate), Expires: 06/17/2025 Start: 06-17-2024 End: 06-17-2025 Lactate dehydrogenase [Enzymatic activity/volume] in Serum or Plasma by Lactate to pyruvate reaction Lactate dehydrogenase Lab Routine Multigravida of advanced maternal age in first trimester Expected: 06/17/2024, Expires: 06/17/[address] [facility] Comment on above: Expected: 06/17/2024 , Expires: 06/17/2025 Start: 06-17-2024 End: 06-17-2025 Protein, urine, 24 hour Protein, urine, 24 hour Lab Routine Multigravida of advanced maternal age in first trimester Expected: 06/17/2024 (Approximate), Expires: 06/17/2025 [facility] Comment on above: Expected: 06/17/2024 (Approximate), Expires: 06/17/2025 Start: 06-17-2024 End: 06-17-2025 Pt and ptt Pt and ptt Lab Routine Multigravida of advanced maternal age in first trimester Expected: 06/17/2024, Expires: 06/17/[address] [facility] Comment on above: Expected: 06/17/2024 , Expires: 06/17/2025 Start: 06-17-2024 End: 06-17-2025 Urate [Mass/volume] in Serum or Plasma Uric acid Lab Routine Multigravida of advanced maternal age in first trimester Expected: 06/17/2024 (Approximate), Expires: 06/17/[address] [facility] Comment on above: Expected: 06/17/2024 (Approximate), Expires: 06/17/2025 Start: 06-17-2024 End: 06-17-2025 Urea nitrogen [Mass/volume] in Serum or Plasma BUN Lab Routine Multigravida of advanced maternal age in first trimester Expected: 06/17/2024, Expires: 06/17/[address] [facility] Comment on above: Expected: 06/17/2024 , Expires: 06/17/2025 Start: 06-17-2024 End: 06-17-2025 US Pelvis transvaginal US OB transvaginal Imaging Routine complicated by intrauterine device (IUD) Expected: 06/17/2024 (Approximate), Expires: 06/17/[address] [facility] Comment on above: Expected: 06/17/2024 (Approximate), Expires: 06/17/2025 Start: 06-17-2024 End: 06-17-2024 Patient encounter procedure 06/17/2024 10:50 AM EDT Routine [facility] [address] [place] [address] Catrachito Aiken DO [address] [place] [address] Arrived [facility] Comment on above: Arrived Start: 06-11-2024 X-ray of left knee XR knee LT 3V - NOT FOR ER USE [facility] Start: 06-11-2024 XR Knee - left 3 Views [facility] Start: 05-31-2024 End: 05-31-[address] [facility] Start: 05-26-2024 COVID-19 Vaccine ( season) COVID-19 Vaccine ( season) [facility] Start: 05-26-2024 COVID-19 Vaccine ( season) COVID-19 Vaccine ( season) [facility] Start: 05-26-2024 Influenza vaccination [facility] Start: 05-23-2024 End: 05-23-2024 Professional / ancillary services management 05/23/2024 3:45 PM EDT Ancillary Procedure [facility] [address] [phone] [facility] Start: 05-23-2024 End: 05-23-2024 ambulatory 05/23/2024 3:30 PM EDT Initial [facility] [address] [place] [phone] Sandrita Bowers, PREM [address] [place], [place] [id number] Arrived [facility] Comment on above: Arrived Start: 04-29-2024 Hospital admission [facility] Start: 04-29-2024 End: 04-29-2024 [facility] Start: 04-29-2024 Physical therapy procedure [facility] Start: 04-19-2024 Plain X-ray of left femur XR femur L T 2V* [facility] Start: 04-19-2024 Plain X-ray of left tibia and left fibula XR tibia fibula LT 2V* [facility] Start: 04-19-2024 XR Femur - left 2 Views [facility] Start: 04-19-2024 XR Tibia and Fibula - left 2 Views [facility] Start: 04-15-2024 [facility] Start: 03-12-2024 MRSA Culture MRSA Culture [facility] Start: 02-15-2024 Pelvis X-ray XR pelvis 1-2V [facility] Start: 02-15-2024 Radiologic examinati on of knee XR knee LT 4V* [facility] Start: 02-15-2024 XR Knee - left 4 Views [facility] Start: 02-15-2024 XR Pelvis 1 or 2 Views [facility] Start: 07-02-2022 DTaP/Tdap/Td vaccine (2 - Td) DTaP/Tdap/Td vaccine (2 - Td) [place] Start: 05-26-2020 Influenza vaccination Flu vaccine (# 1) [place] Start: 04-21-2020 End: 04-21-2020 Office Visit 04/21/2020 Office Visit Obstetrics and Gynecology Karel Palm DO [address] [place], [place] [id number] [phone] [facility] supervisor [employer] Start: 05-26-2019 Influenza vaccination Flu vaccine (# 1) [place], [place] Start: 2018 Screening for malign ant neoplasm of cervix [facility] Start: 2009 Cervical cancer screen Cervical canc er screen [place], [place] Start: 2009 Screening for malign ant neoplasm of cervix [facility] Start: 2007 DTaP/Tdap/Td vaccine (1 - Tdap) DTaP/Tdap/Td vaccine (1 - Tdap) [place] Start: 2006 Adult BMI Follow Up Plan Adult [facility] Plan [facility] Start: 2003 HIV screen HIV screen Bina Bryan [place], [place] Start: 2003 HIV screening HIV screen Bina Solomon [place], [place] Start: 2001 Varicella Vaccine (1 of 2 - 13+ 2-dose series) Varicella Vaccine (1 of 2 - 13+ 2-dose series) [place] Start: 2000 Depression Screening Depression Scre brittany [facility] Start: 1989 Varicella vaccine (1 of 2 - 2-dose childhood series) Varicella vaccine (1 of 2 - 2-dose childhood series) [place] Bacteria identified in Urine by Culture Urine culture Microbiology Routine Missed menses Ordered: 06/17/2024 [facility] Comment on above: Ordered: 06/17/2024 CHLAMYDIA TRACHOMATI S (GENITO/STI) CHLAMYDIA TRACHOMATIS (GENITO/STI) Lab Routine Exposure to STD Ordered: 08/12/[address] [facility] Comment on above: Ordered: 08/12/2024 End: 05-31-2019 Cobalamin (Vitamin B12) [Mass/Vol] Vitamin B12 Lab Routine History of bariatric surgery 1 Occurrences starting 05/31/2019 until 05/31/2019 [place], [place] Comment on above: 1 Occurrences starti ng 05/31/2019 until 05/31/2019 Cobalamin (Vitamin B 12) [Mass/Vol] Vitamin B12 Lab Routine History of bariatric surgery 05/31/2019 8:42 AM EDT [place] Cotinine [Mass/volum e] in Serum or Plasma [facility] Cotinine [Mass/volum e] in Serum or Plasma [facility] End: 04-02-2020 Covid-19 Ambulatory Covid-19 Ambulatory Lab Routine Once for 1 Occurrences starting 04/02/2020 until 04/02/2020 [place] Comment on above: Once for 1 Occurrenc es starting 04/02/2020 until 04/02/2020 Covid-19 Ambulatory Covid-19 Amb ulatory Lab Routine 04/02/2020 10:12 PM EDT [place] Glucose measurement estimated from glycated hemoglobin [facility] Hemoglobin A1c/Hemoglobin.total in Blood Hemoglobin A1c Lab Routine Missed menses Ordered: 06/17/[address] [facility] Comment on above: Ordered: 06/17/2024 Hepatitis B virus herr rface Ag [Presence] in Serum or Plasma by Immunoassay Hepatitis B surface antigen Lab Routine Missed menses Ordered: 06/17/[address] [facility] Comment on above: Ordered: 06/17/2024 Hepatitis C virus Ab [Presence] in Serum or Plasma by Immunoassay Hepatitis C antibody Lab Routine Missed menses Ordered: 06/17/[address] [facility] Comment on above: Ordered: 06/17/2024 HIV-1/HIV-2 antigen/antibody combination immunoassay HIV-1 and HIV-2 antibodies Lab Routine Missed menses Ordered: 06/17/[address] [facility] Comment on above: Ordered: 06/17/2024 Methicillin resistan t Staphylococcus aureus [Presence] in Unspecified specimen by Organism specific culture [facility] MR Knee - left WO contrast F [facility] Neisseria gonorrhoea e DNA [Presence] in Unspecified specimen by SORIN with probe detection Neisseria gonorrhea DNA probe, direct Lab Routine Exposure to STD Ordered: 08/12/[address] [facility] Comment on above: Ordered: 08/12/2024 Nicotine [Mass/volum e] in Serum or Plasma [facility] Nicotine [Mass/volum e] in Serum or Plasma [facility] Patient Education Know your Meds [facility] Work Phone: Reagin Ab [Presence] in Serum by RPR RPR Lab Routine Missed menses Ordered: 06/17/[address] [facility] Comment on above: Ordered: 06/17/2024 Rubella antibody, IgG Rubella an tibody, IgG Lab Routine Missed menses Ordered: 06/17/[address] [facility] Comment on above: Ordered: 06/17/2024 SURESWAB(R) ADVANCED VAGINITIS PLUS, TMA SURESWAB(R) ADVANCED VAGINITIS PLUS, TMA Pathology and Cytology Routine Exposure to STD Ordered: 08/12/[address] [facility] Work Phone: Comment on above: Ordered: 08/12/2024 End: 03-31-2025 US for US OB follow up transabdominal approach Imaging Routine Retained intrauterine device (IUD) during in second trimester every 4 weeks for 4 Occurrences starting 10/01/2024 until 03/31/[address] [facility] Comment on above: every 4 weeks for 4 Occurrences starting 10/01/2024 until 03/31/2025 [facility] Immunizations Immunization Date Immunization Notes Care Provider Marty cerna 07-10-2024 influenza virus vaccine, unspecified formulation Catrachitodamian Villatoroo DO Work Phone: [facility] 07-29-2021 COVID-19 mRNA-1273 (Moderna) [facility] 10-29-2020 COVID-19 mRNA-1273 (Moderna) [facility] 10-01-2020 COVID-19 mRNA-1273 (Moderna) [facility] 06-30-2020 influenza virus vaccine, unspecified formulation Sandrita Floro CNM Work Phone: [facility] 07-03-2019 influenza virus vaccine, unspecified formulation Yesica Khan [place], [place] 06-05-2017 influenza, seasonal, injectable Sandrita Floro CNM Work Phone: [facility] 05-12-2017 influenza, injectabl e, quadrivalent, preservative free Sandrita Floro CNM Work Phone: [facility] 07-02-2012 tetanus toxoid, redu virginia diphtheria toxoid, and acellular pertussis vaccine, adsorbed Yesica Khan [facility] 05-18-2001 measles, mumps and rubella virus vaccine Sandrita Floro CNM Work Phone: [facility] Payers Date Payer Category Payer Commercial Managed C are - HMO [id number] 2024 Managed Care HMO (unspecified) [id number] 2024 Unknown [id number] 2024 Self-pay [id number] 2023 Blue Cross Blue Shield BCBS [id number] 2023 Unknown 2023 Unknown [id number] 2022 Unknown [id number] 2020 Unknown [id number] 2018 Unknown MEDICAL MUTUAL M EDICAL MUTUAL [employer] MH EMP xxxxxxxxxxxx 2018-Present [phone] [address] [place] [address] xxxxxxxxxxxx [id number] .[id number] 2018 Medicaid [id number] 2014 Unknown PARAMOUNT ADVANT AGE PARAMOUNT ADVANTAGE xxxxxxxxxxx 2014-Present [phone] [address] [place] [address] xxxxxxxxxxx [id number] .7.3.915726.315 1988 Unknown [id number] 2.16.840.1.624588.3.579.2 .196 1988 Unknown [id number] 2.16.840.1.507741.3.579.2 .196 1988 Unknown [id number] 2.16.840.1.238800.3.579.2 .196 1988 Unknown [id number] 2.16.840.1.968745.3.579.2 .1286 1988 Unknown [id number] 2.16.840.1.898303.3.579.2 .1285 1988 Unknown [id number] 2.16.840.1.922009.3.579.2 .1285 1988 Unknown [id number] 2.16.840.1.692292.3.579.2 .1285 1988 Unknown [id number] 2.16.840.1.557374.3.579.2 .1285 1988 Unknown [id number] 2.16.840.1.085585.3.579.2 .1285 1988 Unknown [id number] 2.16.840.1.969369.3.579.2 .1285 1988 Unknown [id number] 2.16.840.1.255947.3.579.2 .1285 1988 Unknown [id number] 2.16.840.1.115593.3.579.2 .1285 1988 Unknown [id number] 2.16.840.1.053495.3.579.2 .8 1988 Unknown [id number] 2.16.840.1.956698.3.579.2 .1988 Unknown [id number] 2.16.840.1.137511.3.579.2 .1988 Unknown [id number] 2.16.840.1.984559.3.579.2 .1988 Unknown [id number] 2.16.840.1.998453.3.579.2 .1988 Unknown [id number] 2.16.840.1.237695.3.579.2 .1988 Unknown [id number] 2.16.840.1.702943.3.579.2 .718 1988 Unknown [id number] 2.16.840.1.208202.3.579.2 .718 1988 Unknown [id number] 2.16.840.1.221591.3.579.2 .9 1988 Unknown [id number] 2.16.840.1.147058.3.579.2 .9 1988 Unknown [id number] 2.16.840.1.860686.3.579.2 .1258 1988 Unknown [id number] 2.16.840.1.273004.3.579.2 .1258 1988 Unknown [id number] 2.16.840.1.453388.3.579.2 .1258 1988 Unknown [id number] 2.16.840.1.144296.3.579.2 .1258 1988 Unknown [id number] 2.16.840.1.236531.3.579.2 .9 1988 Unknown [id number] 2.16.840.1.048823.3.579.2 .1258 1988 Unknown [id number] 2.16.840.1.110523.3.579.2 .9 1988 Unknown [id number] 2.16.840.1.092219.3.579.2 .1258 1988 Unknown [id number] 2.16.840.1.902109.3.579.2 .1258 1988 Unknown [id number] 2.16.840.1.607785.3.579.2 .1258 1988 Unknown [id number] 2.16.840.1.959779.3.579.2 .1258 1988 Unknown [id number] 2.16.840.1.017282.3.579.2 .1258 1988 Unknown [id number] 2.16.840.1.927765.3.579.2 .1286 Unknown [facility] Employees [id number] Unknown [id number] 2.16.840.1.971428.3.579.2 .531 Unknown [id number] 2.16.840.1.167821.3.579.2 .531 Unknown [id number] 2.16.840.1.870200.3.579.2 .531 Unknown [id number] 2.16.840.1.270479.3.579.2 .531 Social History Date Type Detail Facility Start: 05-17-2019 End: 01-03-2020 Tobacco smoking status NHIS Former smoker [place] Start: 05-17-2019 End: 04-25-2024 Cigarettes smoked current (pack per day) - Reported [place] Start: 05-17-2019 End: 04-25-2024 Alcohol intake Yes [place] Start: 05-17-2019 Alcohol Comment social [place], [place] Start: 1990 Sex Assigned At Not on file [place] Start: 01-03-2020 End: 11-21-2024 Alcohol intake Current drinker of alcohol (finding) [place] Start: 11-14-2019 End: 04-20-2023 Tobacco smoking status FLIS Never smoked tobacco (finding) [facility] Start: 1990 Sex Assigned At Female F [facility] Start: 07-29-2016 End: 04-20-2023 Tobacco use and exposure Smokeless tobacco non-user [facility] Start: 04-21-2024 [facility] Unknown [facility] Start: 07-29-2016 Alcohol Comment 1-2 drinks per month [facility] Start: 07-05-2024 End: 09-04-2024 Alcoholic beverage intake Ex-drinker (finding) [facility] Start: 04-30-2015 Sex Female (finding) [facility] NEGATED: Highlighted row [facility] Medical Equipment Procedure Code Equipment Code Equipment Origin al Text Equipment Identifier Dates Arthroplasty, knee, total, minimally invasive Uncoated unicondylar knee femur prosthesis ()[id number] FDA Start: 04-29-2024 Arthroplasty, knee, total, minimally invasive Uncoated unicondylar knee tibia prosthesis, metallic ()[id number] FDA Start: 04-29-2024 Arthroplasty, knee, total, minimally invasive Unicondylar knee insert ()[id number] FDA Start: 04-29-2024 Arthroplasty, knee, total, minimally invasive Orthopaedic cement, non-medicated ()[id number] FDA Start: 04-29-2024 1 strip by In Vi tro route Daily Use in the morning prior to breakfast, 1 hour after each meal for a total of 4times daily. [id number] Start: 07-08-2024 End: 08-07-2024 1 each by In Vit ro route Daily Use to check FSBS four times daily [id number] Start: 07-08-2024 End: 08-07-2024 Goals Date Patient Goal Desired Activity /State Clinical Notes 07-11-2023 to 11-21-2024 Mariaelena Machado LPN - 11/21/2024 11:50 AM Chapito Machado CLOTH CUTTING MACHINE OPERATOR - 11/07/2024 1:30 PM Swati Fisher [...] nursing note reviewed. Exam conducted with a prosthetic aides teacher present. Vitals: Estimated body mass index is [...] on Monday, but encouraged to report to [facility] at this time to have [...] Catrachito Aiken DO documented in this encounter [facility] 11-07-2024 History of Present illness Narrative Reason [...] nursing note reviewed. Exam conducted with a prosthetic aides teacher present. Vitals: Estimated body mass index is [...] Catrachito Aiken DO documented in this encounter [facility] 11-06-2024 Note Patient Education Ma terials Follows: [...] or lying down. General instructions ? Take uobf-ftz-pfvbykw and prescription medicines only as told by [...] provider. Document Revised: 03/06/2023 Document Reviewed: 03/06/2023 [employer] Patient Education ? 2023 [employer] Contusion A contusion is a deep bruise. Contusions are the result of a blunt injury to tissues and muscle fibers under the skin. The injury causes bleeding under the skin. The skin over the contusion may turn blue, p (more content not included)... [facility] 10-01-2024 History of Present illness Narrative Reason [...] nursing note reviewed. Exam conducted with a prosthetic aides teacher present. Vitals: Estimated body mass index is [...] Catrachito Aiken DO documented in this encounter [facility] 09-04-2024 History of Present illness Narrative [facility] [...] 03/30/2022 Performed by Mason Martinez DO at [facility] SECTION 06/25/2012 SECTION 10/26/2014 laparoscopic hiatal hernia repair N/A 08/05/2016 Performed by Vahe Fernandez MD at [facility] LAPAROSCOPIC SLEEVE GASTRECTOMY POSSIBLE CLOSURE OF DIAPHRAGMATIC CRURA DNM-CLINIC N/A 08/05/2016 Performed by Vahe Fernandez MD at [facility] MICRODISCECTOMY LUMBAR Allergies: Allergies Allergen Reactions [...] Strain: Low Risk (03/13/2024) Received from [facility] [facility] Overall Financial Resource Strain (CARDIA) Difficulty of Paying Living Expenses: Not hard at all Food Insecurity: No Food Insecurity (07/05/2024) Hunger Screening Food Insecurity - Worry: Never True Food Insecurity - Inability: Never True Transportation Needs: Unknown (03/13/2024) Received from [facility] PRAPARE - Transportation Lack of Transportation (Medical): Not on file Lack of Transportation (Non-Medical): No Physical Activity: Not on file Stress: Not on file Social Connections: Not on file Interpersonal Safety: Not on file Housing Instability: Unknown (03/13/2024) Received from [facility] Housing Stability Vital Sign Unable to [...] gestation of [Z3A.21] Please refer to prior [facility] recommendations and consultation notes Ultrasound was reviewed [...] primary OB office. If you would like [facility] to perform the growth ultrasound please place a referral Weekly NST and DVP from 34 weeks until delivery due to the patient's medical co-morbidities. To be done in primary OB office Delivery recommended at 39 weeks or earlier as clinically indicated to remove IUD at time of section. The patient desires tubal ligation The patient has a scheduled ultrasound with [facility] She does not have future follow-up visits at [facility] if you would like for us to see the patient again please reach out was The patient is to continue with routine care in your office Thank you for allowing me to participate in her care. Please contact me if you have any concerns. Christen Reid MD, FACOG (she/hers) Maternal- Medicine [facility] [address] [place] [address] This document was created with [employer] technology. Though I make every effort to review the dictation as it is transcribed, on occasion the spoken word can be misinterpreted by the technology leading to inappropriate words, phrases, or sentences. This note is addressed to the requesting provider as a consultation for clinical guidance. Specific medical abbreviations are occasionally used and those are generally approved by the [place]?Board of?Obstetrics and?Gynecology?as well as?Vilma mckeon abbreviations. The above plan of care was based solely on the diagnoses for which a consultation was requested. ?More frequent testing may be indicated based on her other medical/obstetrical conditions. The management of other or medical conditions is beyond the scope of requested consultation and will continue to be followed by the primary job estimator or primary care provider. Note to patient: [...] provider today? No documented in this encounter [facility] 08-12-2024 History of Present illness Narrative Reason [...] of: [place] documented in this encounter [facility] 07-16-2024 History of Present illness Narrative Reason for Appointment: Patient ID: Lucila Jacques is a 34 y.o. female who presents for No chief complaint on file. Patient presents today for Return OB appointment. MEDICATIONS Current Outpatient Medications Medication Instructions Alcohol Swabs (Alcohol Prep Pad) 70 % pads 1 Pad, Topical, Daily, Use four times daily to check FSBS. Blood Glucose Monitoring Suppl (wywy Glucometer) w/Device kit 1 kit, Does not [...] History: Diagnosis Date Migraine headache (CMS/[facility]) Social History Tobacco Use Smoking status: Never [...] nursing note reviewed. Exam conducted with a prosthetic aides teacher present. Vitals: Estimated body mass index is [...] or undercooked meat, and stay away from [facility]. Patient has been consulted regarding any further do's and don'ts of . Patient voiced understanding and all questions and concerns were answered. Orders Placed This Encounter Procedures POCT urinalysis dipstick manually resulted Follow Up: Patient is to return in 4 weeks for routine OB appointment. Documented by Vikki Fisher LPN on behalf of: Catrachito Aiken DO documented in this encounter [facility] 07-05-2024 History of Present illness Narrative Headache/epigastric [...] yes Have you been seen here at [facility] in a previous ? Yes Recent ER visits or hospitalizations? no Bring blood sugar log or meter with you today? (Please bring them with you for every visit at [facility]) n/a Flu vaccine (Jul-November)? no Any concerns [...] 03/30/2022 Performed by Mason Martinez DO at [facility] SECTION 06/25/2012 SECTION 10/26/2014 laparoscopic hiatal hernia repair N/A 08/05/2016 Performed by Vahe Fernandez MD at [facility] LAPAROSCOPIC SLEEVE GASTRECTOMY POSSIBLE CLOSURE OF DIAPHRAGMATIC CRURA [facility] N/A 08/05/2016 Performed by Vahe Fernandez [...] Resource Strain: Low Risk (03/13/2024) Received from [facility] Overall Financial Resource Strain (CARDIA) Difficulty of Paying Living Expenses: Not hard at all Food Insecurity: No Food Insecurity (07/05/2024) Hunger Screening Food Insecurity - Worry: Never True Food Insecurity - Inability: Never True Transportation Needs: Unknown (03/13/2024) Received from [facility] PRAPARE - Transportation Lack of Transportation (Medical): Not on file Lack of Transportation (Non-Medical): No Physical Activity: Not on file Stress: Not on file Social Connections: Not on file Interpersonal Safety: Not on file Housing Instability: Unknown (03/13/2024) Received from [facility] Housing Stability Vital Sign [...] bring it to the attention of her job estimator to confirm intact expulsion. 2. Obesity affecting [...] to be sent by Dr. Aiken's office. [facility] is happy to review sugar log as [...] continue with routine care in your office [facility], the CDC, and other organizations representing maternal and public health professionals recommend that , , and lactating people and those considering receive the COVID-19 vaccination. Vaccination is the best method to reduce maternal and complications of SARS-CoV-2 infection. This document was created with [employer] technology. Though I make every effort to review the dictation as it is transcribed, on occasion the spoken word can be misinterpreted by the technology leading to inappropriate words, phrases, or sentences. This note is addressed to the requesting provider as a consultation for clinical guidance. Specific medical abbreviations are occasionally used and those are generally approved by the [place]?Board of?Obstetrics and?Gynecology?as well as?Vilma s abbreviations. The above plan of care was based solely on the diagnoses for which a consultation was requested. ?More frequent testing may be indicated based on her other medical/obstetrical conditions. The management of other or medical conditions is beyond the scope of requested consultation and will continue to be followed by the primary job estimator or primary care provider. Thank you for [...] procedures Referring and communicating with other health outdoor emergency care technician (not separately reported) Documenting clinical information in the electronic or other health record Independently interpreting results (not separately reported) and communicating results to the patient/family/caregiver Care coordination (not separately reported) documented in this encounter [facility] 06-17-2024 History of Present illness Narrative Reason [...] nursing note reviewed. Exam conducted with a prosthetic aides teacher present. Vitals: Estimated body mass index is [...] to continue and OB care locally at [facility] office with Dr. Aiken along with M. Patient advised to take 81mg Aspirin if tolerated. Gave patient orders for early 24 hour urine and lab workup. Patient to return to clinic in 4 weeks. Documented by Mariaelena Machado LPN on behalf of: Catrachito Aiken DO documented in this encounter [facility] 05-31-2024 History of Present illness Narrative REASON [...] Gastroesophageal reflux disease without esophagitis Morbid obesity ([facility]) Past Medical History: Diagnosis Date Anxiety Arrhythmia [...] 03/30/2022 Performed by Mason Martinez DO at [facility] SECTION 06/25/2012 SECTION 10/26/2014 laparoscopic hiatal hernia repair N/A 08/05/2016 Performed by Vahe Fernandez MD at [facility] LAPAROSCOPIC SLEEVE GASTRECTOMY POSSIBLE CLOSURE OF DIAPHRAGMATIC CRURA DNM-CLINIC N/A 08/05/2016 Performed by Vahe Fernandez MD at [facility] MICRODISCECTOMY LUMBAR SLEEVE GASTROPLASTY 08/05/2016 ALLERGIES: [...] and the other consultants, we search on [employer] and all the available care everywhere epic I did review all the imaging studies of the patient available on EMR, ordered by the primary care physician and the other hospice care consultant HABITS: Patient activity no restrictions, diet [...] 5 weeks for 1st trimester ultrasound at [facility] office. 4. Targeted anatomy at weeks gestation at [facility] office. 5. Serial growth ultrasounds 4 weeks [...] patient is in complete care of her job estimator. Patient does have ultrasound office visit scheduled with us. Thank you for allowing me to participate in Lucila Jacques . If there any questions please do not hesitate to contact us. Sincerely, LEXI ROBERTSON MD documented in this encounter [facility] 05-23-2024 History of Present illness Narrative Subjective Lucila Jacques is a 33 y.o. at 6w4d with a working estimated date of delivery of 01/12/2025, by Last Menstrual Period who presents for an initial visit. This is unplanned. Patient Care Team: Noms Provider MD Sergei as PCP - General (Family Medicine) Victor M uLjan NP as PCP - Dee Dee Adan [...] does also recommend for patient to see [facility] For their consultation also. PVU and agrees [...] also given office phone number and [facility] number to call in case of an emergency or after hours needs. PVU and all questions answered. We did discuss place of delivery. Patient [facility] services unless an emergency and they need to go to the closest ER. We can make other arrangements possibly if patient would like to deliver at another facility but I did explain I am now at [place] 100% of the time and would like to do all deliveries there. documented in this encounter [facility] 05-22-2024 Telephone encounter Note Pt had an IUD inserted a month ago and has tested positive for , she hadn't been feeling good lately and it is positive, please call to discuss the next step, in her pregancy and IUD [facility] 05-22-2024 Miscellaneous Notes Pt had an IUD inserted a month ago and has tested positive for , she hadn't been feeling good lately and it is positive, please call to discuss the next step, in her pregancy and IUD documented in this encounter [facility] 02-27-2024 Note Education Materials Gastroenterology Laparoscopic cholecystectomy, [...] these instructions at home: Medicines ? Take xkyu-bwp-qlckyqb and prescription medicines only as told by [...] keep your urine pale yellow. ? Take zclh-tfw-qpbsray or prescription medicines. ? Eat foods that [...] and water are not available, use hand legal records manager. ? Place dry dressings as needed. ? [...] Reviewed: 03/15/2022 [employer] Patient Education ? 2022 [employer]. [facility] 02-27-[address] [facility] Clinical Discharge Summary PERSON INFORMATION Name LUCILA JACQUES Age 33 Years 1990 Sex FEMALE Language Pakistani PCP Provider, None Marital Status Med Service Observation Acct# Arrival 02/26/2024 22:40:28 Visit Reason Abdominal pain; ACUTE CHOLECYSTITIS Acuity LOS 000 10:25 Address: [address] [place] [address] Comment: PROVIDER INFORMATION VITALS INFORMATION Vital Sign [...] ibuprofen Medication List: New Medications [id number], [address], [place] [id number], [phone] acetaminophen-hydrocodone (acetaminophen-hydrocodone 325 mg-5 mg oral tablet) [...] range between ( 1.3 and 2.9 ) Darke Abs#: 0.6 x103/mcL -- Normal range between ( 0.0 and 0.8 ) Auto Baso %: 0.4 % -- Normal range between ( 0.2 and 2.0 ) Auto Darke %: 8 % -- Normal range between [...] Anion Gap: 1 (more content not included)... [facility] 01-15-2024 Note [id number] [facility] 01-12-[address] [facility] SURGERY Clinical Discharge Summary PERSON INFORMATION Name LUCILA JACQUES Age 33 Years 1990 Sex FEMALE Language Pakistani PCP Provider, None Marital Status Med Service Pain Management Surgery Acct# Arrival 01/12/2024 10:59:54 Visit Reason GENICULAR PAIN Acuity LOS 004 01:11 Address: [address] [place] [address] Comment: PROVIDER INFORMATION VITALS INFORMATION Vital Sign [...] AM Confirmed DIAGNOSIS Comment: PHYS DOC NOTES [facility] 01-11-2024 Note [id number] The history of present illness has been reviewed. There are no changes document. [Electronically Signed on: 01/12/2024 11:34 EDT] ALEC PATEL MD [Verified on: 01/12/2024 11:34 EDT] ALEC PATEL MD [Transcribed on: 01/11/2024 13:06 EDT] [facility] 08-23-2023 Note Date of Telehealth V isit: 08/23/23 The patient was notified that using 3rd libertarian telecommunication application (e.g. [employer]) is not HIPAA compliant and may carry some privacy risks: Yes This visit was conducted uxgf-gq-jjdl with the use of audio and video [...] shortness of breath. She has been using fhcj-wdc-uyzchoh medications with minimal relief of symptoms. ROS: [...] EMR, and coordinating care. Ching Brooks PA-C [facility] 07-11-2023 Note [facility] Telemedicine Visit Date of Telehealth Visit: 07-11-2023 The patient was notified that using 3rd libertarian telecommunication application (e.g. [employer]) is not HIPAA compliant and may carry some privacy risks This visit was conducted iumo-gm-hsmu with the use of audio and video technology using [employer] between patient and the provider for a virtual visit. Verbal consent to provide and bill this service was obtained on: 07-11-2023 No signature was obtained due to the COVID-19 pandemic. Chief Complaint Patient presents with Headache HPI Patient is a 33-year-old female who presents the telemedicine service today with complaints of a 3-day history of migraines. Patient states that she is taken vtmi-zlc-zbqdwrj Tylenol and Tylenol PM. She has a [...] today's date. Greater than 16 minutes spent hpsr-ll-mvze assessing patient, reviewing chart and discussing plan of care including treatment options. Care collaborated all questions answered. Rekha Mustafa PA-C Portions of this chart have been completed with voice recognition software, please excuse any errors. [facility] Evaluation note No assessment inform ation available [facility] Work Phone: Evaluation note Diagnosis Onset Date Primary osteoarthritis of left knee acute [facility] Work Phone: Evaluation note* Diagnosis Onset Date Resolution Status Primary osteoarthritis of left knee acute Primary osteoarthritis of left knee acute [facility] Work Phone: Evaluation note* Diagnosis Onset Date Resolution Status Primary osteoarthritis of left knee acute Status post left partial knee replacement acute [facility] Work Phone: Evaluation note* Diagnosis Onset Date Resolution Status Primary osteoarthritis of left knee acute Status post left partial knee replacement acute Status post left partial knee replacement acute [facility] Work Phone: Evaluation note* Diagnosis 14 weeks gestation of Second trimester state, incidental documented in this encounter [facility] Diagnosis Exposure to STD Need for maternal serum alpha-protein (MSAFP) screening Screening, , for anatomic survey Encounter for anatomic survey Second trimester state, incidental 18 weeks gestation of documented in this encounter [facility]Evaluation [facility]* Diagnosis examination or test, positive result- Primary IUD check up Amenorrhea Absence of menstruation documented in this encounter [facility] HealthcareEvaluation note* Diagnosis Missed menses Encounter for supervision of normal first in first trimester , unspecified gestational age Encounter for screening for cervical length complicated by intrauterine device (IUD) induced hypertension, antepartum Transient hypertension of , antepartum Multigravida of advanced maternal age in first trimester documented in this encounter [facility] HealthcareEvaluation note* Diagnosis Second trimester state, incidental 25 weeks gestation of with normal glucose tolerance test (GTT) Diabetes mellitus screening Screening for diabetes mellitus Retained intrauterine device (IUD) during in second trimester documented in this encounter [facility] HealthcareEvaluation note* Diagnosis Third trimester state, incidental 30 weeks gestation of with IUD in place, antepartum, first trimester documented in this encounter [facility] HealthcareEvaluation note* Diagnosis Retained intrauterine device (IUD) during in first trimester- Primary [facility] Diagnosis Retained intrauterine device (IUD) during in first trimester- Primary documented in this encounter [facility]* Diagnosis Retained intrauterine device (IUD) during in second trimester- Primary BMI 36.0-36.9,adult Multigravida of advanced maternal age in second trimester documented [facility]* Diagnosis Retained intrauterine device [...] weeks gestation of documented in this encounter [facility]* Diagnosis 21 weeks gestation of - Primary Retained intrauterine device (IUD) during in second trimester History of gastric bypass Obesity affecting in second trimester, unspecified obesity type with history of section, antepartum Multigravida of advanced maternal age in second trimester documented in this encounter [facility]* Diagnosis 21 weeks gestation of - Primary Retained intrauterine device (IUD) during in second trimester History of gastric bypass Multigravida of advanced maternal age in second trimester documented in this encounter [facility]* Diagnosis 32 weeks gestation of Third trimester state, incidental with IUD in place, antepartum, first trimester documented in this encounter [facility] HealthcareInstructionsNot on filedocumented in this [facility] SystemInstructionsNot on filedocumented in [facility]ructionsNot on filedocumented in this [facility] InstructionsNot on filedocumented in [facility] InstructionsNot on filedocumented in this [facility] InstructionsNot on filedocumented in this [facility] Instructions* Attachments The following attachments cannot be sent through Care Everywhere. 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 Blender Expl anation Advance Directives and Living Will Power of Cardiac Cath Rn Advance Directive Response Recorded Date/ Time Advance [...] Lexi Robertson MD [address], [address] [place] [id number] [facility] Maternal Med [address] [facility] [place] [address] Referral ID Status Reason Start Date Expiration Date V isits Requested Visits Authorized [id number] Pending Review 05/31/2024 05/31/2025 1 1 Specialty Diagnoses / Procedures Referred By Contac t Referred To Contact Maternal and Medicine Diagnoses Retained intrauterine device (IUD) during in second trimester BMI 36.0-36.9,adult Multigravida of advanced maternal age in second trimester Procedures US MFM with or without consult Mishel Segovia MD [address], [address] [place] [id number] [facility] Maternal Med [address] [place] [address] Referral ID Status Reason Start Date Expiration Date V isits Requested Visits Authorized [id number] Pending Review 07/05/2024 07/05/2025 1 1 Additional Source Comments INFORMATION SOURCE (unrecogn ized section and content) DATE CREATED AUTHOR 10/18/2021 [facility] DATE CREATED AUTHOR AUTHOR'S ORGANIZ ATION 08/30/2023 [facility] DATE CREATED AUTHOR AUTHOR'S ORGANIZ ATION 02/02/2024 [facility] DATE CREATED AUTHOR AUTHOR'S ORGANIZ ATION 03/16/2024 [facility] DATE CREATED AUTHOR AUTHOR'S ORGANIZ ATION 06/13/2024 [facility] DATE CREATED AUTHOR AUTHOR'S ORGANIZ ATION 09/07/2024 [facility] DATE CREATED AUTHOR AUTHOR'S ORGANIZ ATION 10/16/2024 [facility] DATE CREATED AUTHOR AUTHOR'S ORGANIZ ATION 11/12/2024 [facility] DATE CREATED AUTHOR AUTHOR'S ORGANIZ ATION 11/23/2024 [facility] EPIC DATE [...] June 11, 2024 End: June 11, 2024 Gore Maker Relationship Specialty Start Date End Date Unallocated, Haley Garcia MD [address] [place] [address] PCP - General Family Medicine 02/01/24 Victor M Lujan, LEAD PASTOR [address] [place] [address] PCP - [employer] 03/25/24 Team Status: Inactive Member Role Status Dates NON STAFF Primary Care Provider Active Start: July 17, 2024 End: July 17, 2024 Santa Estrada II, MD Attending Provider Active Start: July 17, 2024 End: July 17, 2024 Gore Maker Relationship Specialty Start Date End Date Unallocated, Haley Garcia MD [address] [facility] [address] PCP - General Family Medicine 02/01/24 Victor M Lujan, LEAD PASTOR [address] [place] [address] PCP - [employer] 03/25/24 Gore Maker Relationship Specialty Start Date End Date Unallocated, Haley Garcia MD [address] [place] [address] PCP - General Family Medicine 02/01/24 Victor M Lujan, LEAD PASTOR [address] [place] [address] PCP - [employer] 03/25/24 Gore Maker Relationship Specialty Start Date End Date Unallocated, Haley Garcia MD [facility] [address] [facility] [place] [address] PCP - General Family Medicine 02/01/24 Victor M Lujan, LEAD PASTOR [address] [place] [address] PCP - [employer] 03/25/24 Gore Maker Relationship Specialty Start Date End Date Unallocated, Haley Garcia MD [facility] [place] [address] PCP - General Family Medicine 02/01/24 Victor M Lujan, LEAD PASTOR [facility] [place] [address] PCP - [employer] 03/25/24 Gore Maker Relationship Specialty Start Date End Date Unallocated, Haley Garcia MD [facility] [place] [address] PCP - General Family Medicine 02/01/24 Victor M Lujan, LEAD PASTOR [facility] [place] [address] PCP - [employer] 03/25/24 Gore Maker Relationship Specialty Start Date End Date Unallocated, Haley Garcia MD [facility] [place] [address] PCP - General Family Medicine 02/01/24 Victor M Lujan, LEAD PASTOR [address] [place] [address] PCP - [employer] 03/25/24 Gore Maker Relationship Specialty Start Date End Date Unallocated, Haley Garcia MD [facility] [place] [address] PCP - General Family Medicine 02/01/24 Victor M Lujan, LEAD PASTOR [address] [facility] [place] [address] PCP - [employer] 03/25/24 Gore Maker Relationship Specialty Start Date End Date Unallocated, Noms MD Radha [address] [place] [address] PCP - General Family Medicine 02/01/24 Victor M Lujan, LEAD PASTOR [address] [facility] [place] [address] PCP - [employer] 03/25/24 Gore Maker Relationship Specialty Start Date End Date Unallocated, Noms MD Radha [address] [facility] [place] [address] PCP - General Family Medicine 02/01/24 Victor M Lujan, LEAD PASTOR [address] [place] [address] PCP - [employer] 03/25/24 Gore Maker Relationship Specialty Start Date End Date Unallocated, Nommike Garcia MD [address] [facility] [place] [address] PCP - General Family Medicine 02/01/24 Victor M Lujan, LEAD PASTOR [address] [place] [address] PCP - [employer] 03/25/24 Gore Maker Relationship Specialty Start Date End Date Unallocated, Haley Garcia MD [address] [place] [address] PCP - General Family Medicine 02/01/24 Victor M Lujan, LEAD PASTOR [address] [place] [address] PCP - [employer] 03/25/24 Gore Maker Relationship Specialty Start Date End Date Unallocated, Acs ProviderMD [address] [facility] [place] [address] PCP - General Family Medicine 02/01/24 Victor M Lujan, LEAD PASTOR [address] [facility] [place] [address] PCP - [employer] 03/25/24 Gore Maker Relationship Specialty Start Date End Date Unallocated, Noms MD Radha [address] [place] [address] PCP - General Family Medicine 02/01/24 Victor M Lujan, LEAD PASTOR [address] [place] [address] PCP - [employer] 03/25/24 Gore Maker Relationship Specialty Start Date End Date Unallocated, Noms MD Radha [address] [place] [address] PCP - General Family Medicine 02/01/24 Gore Maker Relationship Specialty Start Date End Date Pcp, [place] [address] PCP - General Family Medicine 09/04/23 Gore Maker Relationship Specialty Start Date End Date Pcp, [place] [address] PCP - General Family Medicine 09/04/23 Gore Maker Relationship Specialty Start Date End Date Pcp, [place] [address] PCP - General Family Medicine 09/04/23 Gore Maker Relationship Specialty Start Date End Date Pcp, [place] [address] PCP - General Family Medicine 09/04/23 Gore Maker Relationship Specialty Start Date End Date Pcp, [place] [address] PCP - General Family Medicine 09/04/23 Gore Maker Relationship Specialty Start Date End Date Pcp, [place] [address] PCP - General Family Medicine 09/04/23 Gore Maker Relationship Specialty Start Date End Date Pcp, [place] [address] PCP - General Family Medicine 09/04/23 Gore Maker Relationship Specialty Start Date End Date Pcp, [place] [address] PCP - General Family Medicine 09/04/23 Gore Maker Relationship Specialty Start Date End Date Unallocated, Noms Provider, [place] [address] PCP - General Family Medicine 02/01/24 Gore Maker Relationship Specialty Start Date End Date Pcp, [place] [address] PCP - General Family Medicine 09/04/23 Goals [...] BE BASED ON THE PRIMARY CLINICAL RECORDS. [employer] provides no warranty or guarantee of the accuracy or completeness of information in this document.
[2024-12-12 19:55] LABS: Amphetamine Screen Urine NEGATIVE (NEGATIVE); Barbiturates Screen Urine NEGATIVE (NEGATIVE); Benzodiazepines Screen Urine NEGATIVE (NEGATIVE); Buprenorphine Screen Urine NEGATIVE (NEGATIVE); Cannabinoid Screen Urine NEGATIVE (NEGATIVE); Cocaine Screen Urine NEGATIVE (NEGATIVE); Methadone Screen Urine NEGATIVE (NEGATIVE); Methamphetamines Screen Urine NEGATIVE (NEGATIVE); Opiate Screen Urine POSITIVE (NEGATIVE); Oxycodone Screen Urine NEGATIVE (NEGATIVE); Phencyclidine Screen Urine NEGATIVE (NEGATIVE); Tricyclic Antidepressant Urine NEGATIVE (NEGATIVE)
--- NOTE | 2024-12-12 20:02 | PC.NURSE ---
Preparing patient for , class B. IV attempt X 2 per M Long HORVATH without success. C Norma RN in room and asked patient/daughter to start her IV, IV insertion completed.
--- NOTE | 2024-12-12 20:15 | P.OBHP_ITS ---
OB - H&P: HPI History of Present Illness Chief complaint: US OB BIOPHYSICAL : 3 Para: 2 Gestational age based on last menstrual period: 35 4/7wks Comments: 33 yo at 35 4/7wks presents for nst and bpp, initial bp was slightly elev ated, bp 132/100, pt states had a headache for over 1wk that has not been relieved with normal measures, protein cr ratio was 0.45, discussed with mfm whom agrees with delivery, previous c/s times 2, retained iud during this History of Present Dating criteria: based on 1st trimester US only care: good care Ultrasounds: normal 1st trimester US and normal mid trimester US complications: preeclampsia Labs Blood type: O (+) positive Rubella: immune RPR/VDLR: nonreactive GBS status: negative HBsAG: negative Review of Systems ROS Status of ROS: 10 or more systems reviewed and unremarkable except as noted in history and below PFSH PFSH Social History Little interest or pleasure in doing things: not at all Feeling down, depressed, or hopeless: not at all Meds Home Medications and Allergies Home Medications ?Medication ?Instructions ?Recorded ?Confirmed ?Type metoclopramide HCl 10 mg tablet 10 mg PO BID PRN nausea and 12/05/24 Rx (Reglan) vomiting #20 tabs Allergies Allergy/AdvReac Type Severity Reaction Status Date / Time amoxicillin Allergy Intermediate Unknown Verified 12/05/24 18:46 ibuprofen Allergy Intermediate Abdominal Verified 12/05/24 18:46 Pain magnesium Allergy Intermediate Hives Verified 12/05/24 18:46 potassium Allergy Intermediate Anaphylaxis Verified 12/05/24 18:46 Exam Constitutional Vital Signs, click to edit/add: Last Vital Signs Pulse 95 H 12/12/24 18:16 BP 117/59 12/12/24 18:16 Documenting provider has reviewed patient's vital signs: yes Common normals: no apparent distress Respiratory Common normals: clear to auscultation bilaterally Cardio Common normals: regular rate and regular rhythm GI Common normals: Normal to inspection, nondistended, normoactive bowel sounds present Extremity Common normals: no clubbing, cyanosis or edema and no calf tenderness Results Labs Labs: Short CBC 12/12/24 Range/Units 12:42 WBC 9.6 (4.0-11.0) 10^3/uL Hgb 12.1 (12.0-16.0) g/dL Hct 35.4 L (36.0-48.0) % Plt Count 237 (150-450) 10^3/uL BMP 12/12/24 12/12/24 12/12/24 12:42 12:42 12:42 Sodium 136 Potassium 3.6 Chloride 103 Carbon Dioxide 24.4 BUN 5.0 L 6.0 L Creatinine 0.55 0.57 Glucose 81 Calcium 8.6 Liver Function 12/12/24 12/12/24 12/12/24 Range/Units 12:42 12:42 12:42 Total Bilirubin 0.5 (0.2-1.0) mg/dL AST 19 19 (15-37) U/L ALT 18 18 (14-59) U/L Alkaline Phosphatase 147 H (46-116) U/L Albumin 2.6 L (3.4-5.0) g/dL OB - A/P Assessment and Plan (1) Intrauterine : (2) Preeclampsia: (3) Advanced maternal age (AMA) in : (4) Retained intrauterine device (IUD) during : Plan consent obtained, will perform c/s, mmc reviewed, procedure reviewed, discussed with mfm whom agrees with management
[2024-12-12] MEDS: CITRIC ACID/SODIUM CITRATE 30 ML SOLUTION ORACIT SHOHL'S SOLN PO (20:23)
[2024-12-12] MEDS: CLINDAMYCIN PHOSPHATE/D5W 900 MG/50 ML PREMIX 100 MG IV (20:23)
[2024-12-12] MEDS: FAMOTIDINE/PF 20 MG/2 ML VIAL IV (20:23)
[2024-12-12] MEDS: METOCLOPRAMIDE HCL 10 MG/2 ML VIAL IVP (20:23)
--- NOTE | 2024-12-12 21:49 | P.ON_ITS ---
Brief Operative Note Date of procedure: 12/12/24 Pre-op diagnosis general: iup at 35 4/7wks, preeclampsia, retained iud, previous c.s, desires sterilization, ama Post-op diagnosis: same as pre-op Procedure: NAME OF PROCEDURE: [ section with bilateral salpingectomy ] PROCEDURE: Patient was taken back to the Operating Room where she was given a spinal anesthesia with Duramorph without difficulty. She was prepped and draped in the normal sterile fashion. A Pfannenstiel skin incision was then made 2?cm above the symphysis pubis and carried down to underlying rectus fascia using a Bovie. The fascia was incised in the midline and extended laterally using Hoang scissors. Two Levy clamps were placed on the superior aspect of the fascia and dissected off the underlying rectus muscles. The same was performed on the inferior aspect as well. The muscles were then in the midline. Peritoneum was identified and entered bluntly. The peritoneum was then extended superiorly and inferiorly with good visualization of the bladder. The bladder blade was inserted. Vesicouterine peritoneum was identified, tented up, and entered with Metzenbaum scissors. A bladder flap was then created digitally. The bladder blade was reinserted. A low transverse incision was made on the patient's uterus and extended laterally digitally. The infant was then delivered atraumatically after the bladder blade was removed in the cephalic position. The cord was clamped and cut. Cord blood was obtained. The was handed off to awaiting team. The patient's placenta was spontaneously delivered. The uterus was then exteriorized. The uterus was cleared of all clots and debris. The bladder blade was reinserted. The patient's uterine incision was closed using #0 Vicryl in a running lock fashion. Excellent hemostasis was assured.? The rt tube was identified and grasped with babock, the ligasure was used to transect and ligate the tube in its entirity, this was done on the contralateral side as well. The uterus was then returned to the patient's abdomen. The patient's abdomen was copiously irrigated using warm saline. Peritoneal gutters were cleared of all clots and debris. Again excellent hemostasis was assured. The patient's fascia was closed using #0 Vicryl in a running fashion. The patient's skin was closed using 4-0 Vicryl subcuticularly. The patient tolerated the procedure well. Sponge, lap, and needle counts were correct x2. The patient was taken to the Recovery Room in stable condition. Anesthesia: spinal Surgeon: Catrachito Aiken [employer] Neuropsychologist: SANDRITA KNOX Estimated blood loss (mL): 575 Pathology: other (tubes and placenta) Condition: stable Disposition: PACU Urinary Catheter Management Urinary Catheter Management Urethral: Cath placed during this visit: no
--- NOTE | 2024-12-12 21:51 | PM.OBPRCCS ---
Procedure Pre-op/Post-op diagnoses: Pre-Op/Post-Op Diagnoses Operation Date: 12/12/24 20:30 <No data on this case meets the specified criteria> Procedure: Procedures Operation Date: 12/12/24 20:30 Actual Procedure Side Surgeon p , bilateral salpingectomy Not Applicable Catrachito Aiken DO Software Engineer Advisor: SANDRITA KNOX Estimated blood loss (mL): 575 Disposition: PACU Anesthesia type: Spinal
--- NOTE | 2024-12-12 22:15 | PM.EN ---
Event Note Event Note: Framing And Hanging Note: I first assisted Dr Aiken with a repeat section with bilateral salpingectomy. I closed the SQ layer with 4-0 vicryl suture without difficulty. I then independently closed the skin incision with the 3-0 vicryl without difficulty. Hemostasis noted at the completion. Patient tolerated the procedure well.
[2024-12-13] VITALS (25 sets, daily range): BP systolic 74–131; BP diastolic 44–78; PULSE 75–81; TEMP 36.3–36.7; O2SAT 95–98
[2024-12-13] MEDS: 0.9 % SODIUM CHLORIDE 1,000 ML 75 ML IV (00:46)
[2024-12-13] MEDS: MAGNESIUM-BOLUS FROM THE BAG- 40 GM/1,000 ML IV.SOLN IV (00:49)
[2024-12-13] MEDS: MAGNESIUM SULFATE IN WATER 40 GM/1,000 ML IV.SOLN IV ×2 (01:10→19:58)
[2024-12-13] MEDS: DIPHENHYDRAMINE HCL 50 MG/ML VIAL 25 MG IV ×2 (01:19→07:41)
[2024-12-13] MEDS: CLINDAMYCIN PHOSPHATE/D5W 900 MG/50 ML PREMIX 100 MG IV (01:28)
[2024-12-13] MEDS: KETOROLAC TROMETHAMINE 30 MG/ML VIAL IVP ×4 (04:53→23:09)
[2024-12-13 06:24] LABS: Hematocrit 30.7 % (36.0-48.0); Hemoglobin 10.4 g/dL (12.0-16.0); Mean Corpuscular HGB Conc 33.9 g/dL (29.9-35.2); Mean Corpuscular Hemoglobin 29.8 pg (26.7-34.0); Mean Platelet Volume 9.1 fL (9.5-13.5); Platelet Count 217 10^3/uL (150-450); Red Blood Count 3.49 10^6/uL (4.20-5.40); Red Cell Distribution Width 12.9 % (11.0-15.0); White Blood Count 15.6 10^3/uL (4.0-11.0)
[2024-12-13 06:47] LABS: Lymphocytes Absolute Manual 0.62 10^3/uL (1.20-3.80); Monocytes Absolute Manual 0.31 10^3/uL (0.30-0.80); Segmented Neut Absolute Manual 14.66 10^3/uL (1.4-6.5)
[2024-12-13] MEDS: ACETAMINOPHEN 500 MG TABLET 1000 MG PO ×2 (07:41→19:57)
--- NOTE | 2024-12-13 07:56 | P.OBPN_ITS ---
OB - PN: Subj Subjective Patient comments: no complaints and pain well controlled [place] status: doing well Exam Constitutional Vital Signs, click to edit/add: Last Vital Signs Temp 97.6 F 12/12/24 22:19 Pulse 81 12/13/24 00:00 Resp 5 L 12/13/24 00:00 BP 98/57 12/13/24 06:00 Pulse Ox 97 12/13/24 00:35 O2 Del Method Room Air 12/13/24 04:10 Documenting provider has reviewed patient's vital signs: yes Common normals: no apparent distress Respiratory Common normals: normal respiratory effort and clear to auscultation bilaterally Cardio Common normals: regular rate and regular rhythm GI Common normals: Normal to inspection, nondistended, normoactive bowel sounds present Extremity Common normals: no clubbing, cyanosis or edema and no calf tenderness Results Labs Labs: Short CBC 12/12/24 12/13/24 Range/Units 12:42 06:07 WBC 9.6 15.6 H (4.0-11.0) 10^3/uL Hgb 12.1 10.4 L (12.0-16.0) g/dL Hct 35.4 L 30.7 L (36.0-48.0) % Plt Count 237 217 (150-450) 10^3/uL BMP 12/12/24 12/12/24 12/12/24 12:42 12:42 12:42 Sodium 136 Potassium 3.6 Chloride 103 Carbon Dioxide 24.4 BUN 5.0 L 6.0 L Creatinine 0.55 0.57 Glucose 81 Calcium 8.6 Liver Function 12/12/24 12/12/24 12/12/24 Range/Units 12:42 12:42 12:42 Total Bilirubin 0.5 (0.2-1.0) mg/dL AST 19 19 (15-37) U/L ALT 18 18 (14-59) U/L Alkaline Phosphatase 147 H (46-116) U/L Albumin 2.6 L (3.4-5.0) g/dL Urinary Catheter Management Urinary Catheter Management Urethral: Cath placed during this visit: no OB - PN: A/P Assessment and Plan (1) Intrauterine : (2) Preeclampsia: (3) Advanced maternal age (AMA) in : (4) Retained intrauterine device (IUD) during : Plan - day: 1 Plan: routine postop care Time Spent with Patient Time: Total time spent is greater than 50% in coordination of care (as documented) at patient's floor/unit and/or counseling patient: Total time spent with greater than 50% in coordination of care (as documented) at patient's floor/unit and/or counseling patient: less than 15 minutes
--- NOTE | 2024-12-13 13:28 | SWNOTE1 ---
Pt was positive for opiates on 12/12/24. SW spoke to nurse caring for pt and pt was down in ED for migraine and did receive medications that would make her positive for opiates. Pt also received Tylenol 3 yesterday while in [facility]. Nurse has no concerns, caring for baby appropriately.
[2024-12-13] MEDS: OXYCODONE HCL 5 MG TABLET PO ×2 (15:19→19:57)
[2024-12-13] MEDS: 0.9 % SODIUM CHLORIDE 1,000 ML 1000 ML IV (22:25)
[2024-12-13] MEDS: ENOXAPARIN SODIUM 40 MG/0.4 ML SYRINGE SUBQ (23:09)
[2024-12-14 00:39] VITALS: BP 109/59; PULSE 79; TEMP 36.9; O2SAT 98
[2024-12-14] MEDS: OXYCODONE HCL 5 MG TABLET PO ×3 (04:25→19:40)
[2024-12-14] MEDS: ACETAMINOPHEN 500 MG TABLET 1000 MG PO (04:25)
[2024-12-14 08:08] VITALS: BP 121/66; PULSE 60; TEMP 36.8
[2024-12-14] MEDS: DOCUSATE SODIUM 100 MG CAPSULE PO ×2 (09:25→21:39)
--- NOTE | 2024-12-14 10:26 | PM.OBPN ---
OB - PN: Subj Subjective Patient comments: no complaints and pain well controlled [place] status: doing well Exam Constitutional Vital Signs, click to edit/add: Last Vital Signs Temp 98.2 F 12/14/24 08:08 Pulse 60 12/14/24 08:08 Resp 16 12/14/24 00:39 BP 121/66 12/14/24 08:08 Pulse Ox 98 12/14/24 00:39 O2 Del Method Room Air 12/14/24 08:45 Documenting provider has reviewed patient's vital signs: yes Common normals: no apparent distress Respiratory Common normals: normal respiratory effort and clear to auscultation bilaterally Cardio Common normals: regular rate and regular rhythm GI Common normals: Normal to inspection, nondistended, normoactive bowel sounds present Extremity Common normals: no calf tenderness Urinary Catheter Management Urinary Catheter Management Urethral: Cath placed during this visit: no OB - PN: A/P Assessment and Plan (1) Intrauterine : (2) Preeclampsia: (3) Advanced maternal age (AMA) in : (4) Retained intrauterine device (IUD) during : Plan - day: 2 Plan: routine postop care Time Spent with Patient Time: Total time spent is greater than 50% in coordination of care (as documented) at patient's floor/unit and/or counseling patient: Total time spent with greater than 50% in coordination of care (as documented) at patient's floor/unit and/or counseling patient: less than 15 minutes
[2024-12-14] MEDS: OXYCODONE HCL/ACETAMINOPHEN 5MG/325MG 2 TAB PO ×3 (10:36→21:39)
[2024-12-14 10:52] LABS: Basophils Percent Auto 0.3 % (0.2-2.0); Eosinophils Absolute Auto 0.4 10^3/uL (0.0-0.7); Hematocrit 31.4 % (36.0-48.0); Hemoglobin 10.7 g/dL (12.0-16.0); Immature Granulocytes Abs Auto 0.07 10^3/uL (0.00-0.03); Immature Granulocytes Pct Auto 0.6 % (0.0-0.5); Lymphocytes Absolute Auto 2.2 10^3/uL (1.2-3.8); Lymphocytes Percent Auto 18.2 % (20.5-60.0); Mean Corpuscular HGB Conc 34.1 g/dL (29.9-35.2); Mean Corpuscular Hemoglobin 30.4 pg (26.7-34.0); Mean Corpuscular Volume 89.2 fL (81.0-99.0); Monocytes Absolute Auto 0.9 10^3/uL (0.3-0.8); Monocytes Percent Auto 7.5 % (1.7-12.0); Neutrophils Absolute Auto 8.4 10^3/uL (1.4-6.5); Neutrophils Percent Auto 70.4 % (43.0-75.0); Platelet Count 225 10^3/uL (150-450); Red Blood Count 3.52 10^6/uL (4.20-5.40); Red Cell Distribution Width 13.4 % (11.0-15.0); White Blood Count 11.9 10^3/uL (4.0-11.0)
[2024-12-14] MEDS: CEPHALEXIN 500 MG CAPSULE PO ×2 (15:13→21:38)
[2024-12-14 16:56] VITALS: BP 125/55; PULSE 80
[2024-12-14 17:00] VITALS: BP 125/55; PULSE 80; TEMP 36.7
[2024-12-14] MEDS: ENOXAPARIN SODIUM 40 MG/0.4 ML SYRINGE SUBQ (21:38)
[2024-12-14 23:21] VITALS: BP 114/60; PULSE 84
--- NOTE | 2024-12-15 02:07 | P.OBPN_ITS ---
OB - PN: Subj Subjective Patient comments: no complaints and pain well controlled [place] status: doing well Exam Constitutional Vital Signs, click to edit/add: Last Vital Signs Temp 98.1 F 12/14/24 17:00 Pulse 84 12/14/24 23:21 Resp 16 12/14/24 17:00 BP 114/60 12/14/24 23:21 Pulse Ox 98 12/14/24 00:39 O2 Del Method Room Air 12/14/24 23:30 Documenting provider has reviewed patient's vital signs: yes Common normals: no apparent distress Respiratory Common normals: clear to auscultation bilaterally Cardio Common normals: regular rate and regular rhythm GI Common normals: Normal to inspection, nondistended, normoactive bowel sounds present Extremity Common normals: no calf tenderness Results Labs Labs: Short CBC 12/14/24 Range/Units 10:45 WBC 11.9 H (4.0-11.0) 10^3/uL Hgb 10.7 L (12.0-16.0) g/dL Hct 31.4 L (36.0-48.0) % Plt Count 225 (150-450) 10^3/uL Urinary Catheter Management Urinary Catheter Management Urethral: Cath placed during this visit: no OB - PN: A/P Assessment and Plan (1) Intrauterine : (2) Preeclampsia: (3) Advanced maternal age (AMA) in : (4) Retained intrauterine device (IUD) during : Plan - day: 3 Plan: routine postop care, discharge home and other (fu 1wk) Time Spent with Patient Time: Total time spent is greater than 50% in coordination of care (as documented) at patient's floor/unit and/or counseling patient: Total time spent with greater than 50% in coordination of care (as documented) at patient's floor/unit and/or counseling patient: less than 15 minutes
[2024-12-15] MEDS: CEPHALEXIN 500 MG CAPSULE PO ×2 (03:34→09:53)
[2024-12-15] MEDS: OXYCODONE HCL/ACETAMINOPHEN 5MG/325MG 2 TAB PO ×2 (03:34→09:52)
[2024-12-15 08:13] VITALS: BP 121/72; PULSE 80
[2024-12-15 08:15] VITALS: BP 121/72; PULSE 80; TEMP 37
[2024-12-15] MEDS: DOCUSATE SODIUM 100 MG CAPSULE PO (09:53)
[2024-12-15] MEDS: OXYCODONE HCL 5 MG TABLET PO (11:32)
== END 2024-12-15 12:30 | disposition home or self-care (01) | DRG 785 ==
LOC: US 12:55 → FBC 19:23
PROVIDERS: Admitting Provider Obstetrics & Gynecology; Visit Provider Obstetrics & Gynecology
PROC: 10D00Z1 Extraction of Products of Conception, Low, Open Approach (ICD-10-PCS; CPT 59514; principal; 2024-12-12 20:30)
DX: O14.04 Mild to moderate pre-eclampsia, complicating childbirth (principal); Z3A.35 35 weeks gestation of pregnancy; Z37.0 Single live birth; O34.211 Maternal care for low transverse scar from previous cesarean delivery; O99.844 Bariatric surgery status complicating childbirth; Z79.899 Other long term (current) drug therapy; Z88.1 Allergy status to other antibiotic agents; Z88.6 Allergy status to analgesic agent; Z88.8 Allergy status to other drugs, medicaments and biological substances; Z30.2 Encounter for sterilization; Z97.5 Presence of (intrauterine) contraceptive device; Z23 Encounter for immunization
CPT/HCPCS: 36415; 64488; 76818; 80053; 80307; 80361; 82150; 82565; 82570; 83690; 84156; 84450; 84460; 84520; 84550; 85007; 85025; 85027; 85384; 85610; 85730; 86850; 86900; 86901; 88302; 88307; 94667; 94668; J0131; J0665; J0736; J1100; J1200; J1650; J1885; J2274; J2300; J2371; J2405; J2550; J2590; J2765; J3475; J3490

== ENCOUNTER 2024-12-17 09:01 | Outpatient (OUT) | payer OTHER, SELFPAY ==
--- NOTE | 2024-12-17 16:05 | PC.NURSE ---
pt, spouse and return to unit for followup visit and hearing screen. stripped to diaper and weighed, Skin reddened in appearance with slight yellow undertones. Father states he noticed it yesterday after infants sponge bath. Parents state that infant falls asleep at breast after attempting to latch for 10-15minutes, parents then give infant formula 20-30 ml along with half of that being pumped breast milk. feeds every 3 hours mainly. sometimes more frequently sometimes less. pt uses hands free breast pump. States she pumps for 30 minutes. Infant weight today 2320gms 5pounds 2 ounces down 8.3% from weight of 2530gms. Parents encouraged to increase infants feedings every 2 hours and feed at least 30-40ml per feeding. parents educated on slow paced bottle feeding for infant as they say leaks out a bit of formula while feeding. During session nurses at each breast after repeated attempts to latch and stimulation for 5 minutes per side with infant stripped down to diaper. Infant color does go from red to more pink as session continues and less yellow appearing.Dr Conti in unit and notified of weight loss, appearance and plan to increase feeding and amount of feeds. Dr Conti agrees. After breast feeding infant bottle feeding similac sensitive formula per paced bottle feeding with no leaking for 10ml. after burping infant, infant taken to nursery for 1st hearing screen. ABR hearing screen passed bilaterally. Infant has follow up with type mapper Dr Enriquez on and Mother sees her OB tomorrow. pt and spouse told to keep both appointments. pt and spouse also given and care guide folder. Another follow up offered. pt declines at this time. Educated pt and spouse if pt needs assistance or has questions for nursing to call unit or schedule follow up at any time. Infant placed in car seat per mother and strapped in appropriately. Mother, Father and infant leave to home.
== END 2024-12-17 09:02 | disposition home or self-care (01) ==
LOC: FBCO 09:01
PROVIDERS: Visit Provider Obstetrics & Gynecology
DX: Z39.1 Encounter for care and examination of lactating mother (principal)
CPT/HCPCS: G0463